=== PATIENT | male | born 1950 | race Caucasian/White ===

== ENCOUNTER 2020-01-25 09:45 | Inpatient (IN) | payer MEDICARE, OTHER, SELFPAY ==
[2020-01-25] VITALS (42 sets, daily range): BP systolic 114–206; BP diastolic 68–97; PULSE 64–773; RESP 15–38; TEMP 36.9–37.6; O2SAT 83–96; BMI 34.9
--- NOTE | 2020-01-25 10:08 | XR_ITS ---
WS: [id number] CHEST XRAY TECHNIQUE: Portable chest. CLINICAL INFORMATION: cough COMPARISON: February 19, 2019 FINDINGS: Heart: Cardiomegaly. Lungs: Chronic emphysematous changes. Patchy bilateral perihilar infiltrates new from previous. Inter stitial infiltrate in the left midlung. No significant pleural fluid. Right hilar prominence. Underly ing adenopathy is not excluded. Bones: Thoracic scoliosis with pedicle kimber fixation. IMPRESSION 1. Bilateral perihilar interstitial infiltrates and left midlung infiltrate suspicious for pneumonia . 2. Right hilar prominence. Underlying adenopathy is not excluded. This can be further evaluated ches t CT.
[2020-01-25 10:51] LABS: ABG PCO2 38.5 mmHg (35-45); Arterial Blood Gas Hematocrit 30.5 % (42-52); Base Excess ABG -0.9 mmol/L (-2.0-2.0); Blood Gas Allen Test Pos; Blood Gas Operator Identificat BD; Blood Gas Sample Site Brachial, right; Blood Gas Sample Type Arterial; HCO3 ABG 23.8 mmol/L (22-26); Oxygen Device NC; PO2 ABG 81.2 mmHg (80.0-100.0)
[2020-01-25 11:02] LABS: Basophils % 0.1 %; Hematocrit 30.6 % (42.0-52.0); Hemoglobin 9.4 g/dL (11.7-16.6); Lymphocytes # 0.6 10^3/uL (0.8-4.8); Lymphocytes % 8.1 %; Mean Corpuscular HGB Conc 30.7 g/dL (30.0-36.0); Mean Corpuscular Hemoglobin 27.5 pg (28.0-34.0); Mean Corpuscular Volume 89.5 fL (80-94); Mean Platelet Volume 10.7 fL (7.4-10.4); Monocytes # 0.5 10^3/uL (0.2-0.9); Monocytes % 6.6 %; Neutrophils % 84.8 %; Nucleated Red Blood Cells % 0 %; Platelet Count 165 10^3/cmm (130-400); Red Blood Count 3.42 10^6/uL (4.1-5.3); Red Cell Distribution Width 15.2 % (12.1-15.1); White Blood Count 7.8 10^3/uL (4.0-10.0)
[2020-01-25 11:08] LABS: Fibrinogen 731 mg/dL (174-498)
[2020-01-25 11:11] LABS: D Dimer 1.71 ug/mIFEU (0-0.59)
[2020-01-25 11:12] LABS: Lactic Sepsis W/Reflex 0.9 mmol/L (0.5-2.2)
[2020-01-25 11:22] LABS: Procalcitonin 0.61 ng/mL (0-0.5)
[2020-01-25 11:33] LABS: Alanine Aminotransferase 18 U/L (0-41); Albumin Level 3.7 g/dL (3.5-5.2); Alkaline Phosphatase 186 IU/L (40-130); Anion Gap 18.5 (5-19); Aspartate Amino Transferase 35 U/L (0-40); C Reactive Protein 158.8 mg/L (0.0-4.9); Calcium 8.6 mg/dL (8.5-10.5); Carbon Dioxide 22 mmol/L (22-29); Chloride 94 mmol/L (98-107); Globulin 3.5 g/dL (1.3-4.6); Glomerular Filtration Rate 16.9 mL/min (90-130); Glucose 163 mg/dL (65-115); Lactate Dehydrogenase 361 U/L (135-225); Osmolality Calculated 300 mOsm/kg (285-295); Potassium 3.5 mmol/L (3.5-5.1); Sodium 131 mmol/L (136-145); Total Bilirubin 0.4 mg/dL (0.15-1.2); Total Protein 7.2 g/dL (6.6-8.7)
[2020-01-25 11:43] LABS: Blood Urea Nitrogen 82 mg/dL (8-23)
--- NOTE | 2020-01-25 11:53 | ED_ITS ---
HPI - General Adult General: Chief complaint: General Medical Stated complaint: COUGH/ABD PAIN/NO APPETITE/FEVER Time Seen by Provider: 01/25/20 09:59 History of Present Illness: HPI narrative: 69-year-old male presents emergency room complaining of cough shortness of breath decreased appetite mild and no dyspnea generalized weakness and some diarrhea. This all began about 4 days ago and has gotten progressively worse with increasing shortness of breath. Denies any hematochezia melena hematemesis or coffee-ground emesis. There is no dysuria urgency or frequency he usually is on oxygen at home but he is not exactly sure why in talking to him I believe it is for congestive heart failure he is maintaining his sats in the upper 90s on 2-1/2 L which is what he usually uses at home. He denies any chest pain. Onset (ago): day(s) (4) Location: chest Severity: moderate Relieving factors: none Exacerbating factors: none Associated symptoms: Reports cough, diaphoresis, decreased appetite, dyspnea, fevers/chills, headache(s), malaise, nausea, palpitations, short of breath and weakness; Deny rash, seizures, syncope or vomiting Treatments prior to arrival: other (Oxygen) Review of Systems Const: Reports: malaise and diaphoresis ENMT: Denies: throat pain, ear or mastoid pain, nasal discharge or nasal congestion Card: Reports: palpitations; Denies: syncope Resp: Reports: dyspnea GI: Reports: nausea; Denies: vomiting : Denies: flank pain, dysuria, urinary frequency or urinary urgency Skin/Breast: Denies: rash Neuro: Reports: headache(s) [facility] ED PFSH: Medical History Anemia ASHD (arteriosclerotic heart disease) Carotid stenosis, bilateral Chronic back pain Chronic kidney disease (CKD) Congestive 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 CVA (cerebral vascular accident) Diabetes 1.5, managed as type 2 Diabetic neuropathy Dyslipidemia Edema Essential hypertension Myocardial infarction KAITLYNN (obstructive sleep apnea) Surgical History Previous back surgery S/P angioplasty with stent S/P cataract extraction Family History Mother CAD (coronary artery disease) Stroke Sister Hypertension Social History Smoking and tobacco status: former smoker Alcohol intake: never Household members: spouse Marital status: service: Yes branch: [employer] Current occupational status: employed Current gender identity: Male Physical Exam Const: COMMON NORMALS: no acute distress GENERAL APPEARANCE: cooperative and comfortable ORIENTATION/CONSCIOUSNESS: Yes awake, Yes oriented to person, Yes oriented to place and Yes oriented to time HENMT: COMMON NORMALS: normocephalic and atraumatic HEAD & SCALP: normocephalic and atraumatic Neck/C-Spine: COMMON NORMALS: no JVD Resp: AUSCULTATION: rales and wheezes Cardio: COMMON NORMALS: no JVD, regular rate, regular rhythm and No murmurs present (Cardio) RATE: regular rate RHYTHM: regular rhythm GI: COMMON NORMALS: Soft to palpation and No hepatosplenomegaly present AUSCULTATION: Yes normoactive bowel sounds PALPATION: Yes Soft to palpation, No Tenderness to palpation present (GI), No Guarding due to palpation present (GI) and Yes No hepatosplenomegaly present Extremity: COMMON NORMALS: normal to inspection, capillary refill normal, no clubbing, cyanosis or edema, no calf tenderness and no pedal edema Neuro: SENSORIUM/ORIENTATION: Yes oriented to person, Yes oriented to place and Yes oriented to time Skin: COMMON NORMALS: no rashes or lesions noted GENERAL SKIN EXAM: no rashes or lesions noted Course Vital Signs: Vital signs: Vital Signs Temperature 98.7 F 01/27/20 16:02 Pulse Rate 74 01/28/20 07:00 Respiratory Rate 29 H 01/28/20 07:00 Blood Pressure 165/87 01/28/20 07:00 Pulse Oximetry 90 01/28/20 07:00 MDM - General Adult MDM Narrative: Medical decision making narrative: Reviewed findings with the patient he is COVID positive and requiring oxygen support were going to go ahead and admit him discussed with Dr. Kassie gilliland orders are written. Lab Data: Attestation: I reviewed the patient's lab results. Labs: Lab Results 01/25/20 01/25/20 01/25/20 Range/Units 10:40 10:43 10:43 WBC 7.8 (4.0-10.0) 10^3/ uL RBC 3.42 L (4.1-5.3) 10^6/u L Hgb 9.4 L (11.7-16.6) g/dL Hct 30.6 L (42.0-52.0) % MCV 89.5 (80-94) fL MCH 27.5 L (28.0-34.0) pg MCHC 30.7 (30.0-36.0) g/dL RDW 15.2 H (12.1-15.1) % Plt Count 165 (130-400) 10^3/c mm MPV 10.7 H (7.4-10.4) fL Neut % (Auto) 84.8 % Lymph % (Auto) 8.1 % [place] % (Auto) 6.6 % Eos % (Auto) 0.0 % Baso % (Auto) 0.1 % Neut # (Auto) 6.60 (1.8-7.7) 10^3/u L Lymph # (Auto) 0.6 L (0.8-4.8) 10^3/u L [place] # (Auto) 0.5 (0.2-0.9) 10^3/u L Eos # (Auto) 0.0 (0.0-0.8) 10^3/u L Baso # (Auto) 0.0 (0.0-0.1) 10^3/u L Nucleated RBC % (a uto) 0 % Nucleated RBCs # 0.0 /100WBC Fibrinogen (174-498) mg/dL D-Dimer (0-0.59) ug/mIFE U Specimen Type Arterial Sample Site Brachial, right ABG pH 7.40 (7.35-7.45) ABG pCO2 38.5 (35-45) mmHg ABG pO2 81.2 (80.0-100.0) mmH g ABG HCO3 23.8 (22-26) mmol/L ABG Base Excess -0.9 (-2.0-2.0) mmol/ L Ganesh Test Pos Hematocrit 30.5 L (42-52) % O2 Delivery Device Nc O2 Liters/Min 3.0 % FiO2 32.0 % Life Trainer ID Bd Sodium 131 L (136-145) mmol/L Potassium 3.5 (3.5-5.1) mmol/L Chloride 94 L (98-107) mmol/L Carbon Dioxide 22 (22-29) mmol/L Anion Gap 18.5 (5-19) BUN 82 H* (8-23) mg/dL Creatinine 3.6 H (0.7-1.2) mg/dL GFR Calculation 16.9 L (90-130) mL/min Glucose 163 H (65-115) mg/dL Calculated Osmolal ity 300 H (285-295) mOsm/k g Lactic Acid (0.5-2.2) mmol/L Calcium 8.6 (8.5-10.5) mg/dL Ferritin 8959 H (30-400) ng/mL Total Bilirubin 0.4 (0.15-1.2) mg/dL AST 35 (0-40) U/L ALT 18 (0-41) U/L Alkaline Phosphata se 186 H (40-130) IU/L Lactate Dehydrogen ase 361 H (135-225) U/L C-Reactive Protein 158.8 H (0.0-4.9) mg/L Total Protein 7.2 (6.6-8.7) g/dL Albumin 3.7 (3.5-5.2) g/dL Globulin 3.5 (1.3-4.6) g/dL Procalcitonin 0.61 H (0-0.5) ng/mL SARS-CoV-2 Ag (Rap id) (Negative) 01/25/20 01/25/20 01/25/20 Range/Units 10:43 10:43 11:12 WBC (4.0-10.0) 10^3/ uL RBC (4.1-5.3) 10^6/u L Hgb (11.7-16.6) g/dL Hct (42.0-52.0) % MCV (80-94) fL MCH (28.0-34.0) pg MCHC (30.0-36.0) g/dL RDW (12.1-15.1) % Plt Count (130-400) 10^3/c mm MPV (7.4-10.4) fL Neut % (Auto) % Lymph % (Auto) % [place] % (Auto) % Eos % (Auto) % Baso % (Auto) % Neut # (Auto) (1.8-7.7) 10^3/u L Lymph # (Auto) (0.8-4.8) 10^3/u L [place] # (Auto) (0.2-0.9) 10^3/u L Eos # (Auto) (0.0-0.8) 10^3/u L Baso # (Auto) (0.0-0.1) 10^3/u L Nucleated RBC % (a uto) % Nucleated RBCs # /100WBC Fibrinogen 731 H (174-498) mg/dL D-Dimer 1.71 H (0-0.59) ug/mIFE U Specimen Type Sample Site ABG pH (7.35-7.45) ABG pCO2 (35-45) mmHg ABG pO2 (80.0-100.0) mmH g ABG HCO3 (22-26) mmol/L ABG Base Excess (-2.0-2.0) mmol/ L Ganesh Test Hematocrit (42-52) % O2 Delivery Device O2 Liters/Min % FiO2 % Life Trainer ID Sodium (136-145) mmol/L Potassium (3.5-5.1) mmol/L Chloride (98-107) mmol/L Carbon Dioxide (22-29) mmol/L Anion Gap (5-19) BUN (8-23) mg/dL Creatinine (0.7-1.2) mg/dL GFR Calculation (90-130) mL/min Glucose (65-115) mg/dL Calculated Osmolal ity (285-295) mOsm/k g Lactic Acid 0.9 (0.5-2.2) mmol/L Calcium (8.5-10.5) mg/dL Ferritin (30-400) ng/mL Total Bilirubin (0.15-1.2) mg/dL AST (0-40) U/L ALT (0-41) U/L Alkaline Phosphata se (40-130) IU/L Lactate Dehydrogen ase (135-225) U/L C-Reactive Protein (0.0-4.9) mg/L Total Protein (6.6-8.7) g/dL Albumin (3.5-5.2) g/dL Globulin (1.3-4.6) g/dL Procalcitonin (0-0.5) ng/mL SARS-CoV-2 Ag (Rap id) Positive H (Negative) Discharge Plan Discharge Patient Disposition: Admitted As Inpatient Admit Provider: Nell Bryan Clinical Impression: COVID-19 virus infection Condition: Stable Discharge Date/Time: 01/25/20 17:29 Coding Level of Care Code ED Patient 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
[2020-01-25] MEDS: dexamethasone 4 mg/mL INJ 6 MG IVP (12:33)
[2020-01-25] MEDS: sodium chloride 0.9% 1,000 ML 999 ML IV (12:36)
[2020-01-25 12:41] LABS: SARS Covid-2 Antigen Positive (Negative)
[2020-01-25 14:21] LABS: Ferritin 8959 ng/mL (30-400)
--- NOTE | 2020-01-25 17:53 | PM.HP ---
Providers/Chief Complaint Admitting Physician: Nell Bryan MD Primary Care Provider: LEÓN SEGOVIA MD Chief Complaint: COUGH/ABD PAIN/NO APPETITE/FEVER History of Present Illness Eliazar Hogan is a 69 year old male with complex PMHx as noted below presents with complaints of 4 days of feeling unwell, malaise, chills, dry persistent cough, nausea with dry heaves, decreased appetite and loss of sense of taste. He lives at home with his and denies any exposure to any known COVID-19 individuals. He is oxygen dependent at baseline with a requirement of 3 L. He appears clinically dehydrated and has received some IV fluid hydration. He was tested for COVID-19 with a rapid test in the ER which came back positive. He is currently requiring 4-5 L NC and has already received a loading dose of remdesevir. Further work-up indicates a normal white count of 7.8, hemoglobin of 9.4, hyponatremia with a sodium of 131, BUN of 82, creatinine of 3.6, significantly elevated ferritin at 8959, d-dimer 1.71, fibrinogen of 731, hye-bphuoufmzj-0.61. ABG is appropriate, done on 3 L nasal cannula. Chest x-ray is reported as bilateral perihilar interstitial infiltrates with a left midlung infiltrate suspicious for pneumonia and noted right hilar prominence. Due to need for continued close monitoring of respiratory status, antiviral treatment and appropriate supportive care, he will be admitted to the viral ICU at this time. He is quite hypertensive during my encounter in the unit, was unable to take his medications today so we will resume his antihypertensive regimen this evening. I attempted to reach his Dayna twice per his request, unsuccessful. Review of Systems Narrative: -decreased sense of taste Const: Reports: chills, body aches, change in appetite (decreased), fatigue and malaise; Denies: fever(s) Eyes: Denies: change in vision ENMT: Reports: dry mouth Card: Reports: swelling of feet/ankles (chronic), lightheadedness, dyspnea on exertion and orthopnea; Denies: chest pain or syncope Resp: Reports: dyspnea and non-productive cough; Denies: hemoptysis GI: Reports: nausea (dry heaves); Denies: abdominal pain or hematochezia : Denies: hematuria Musc: Denies: back pain Skin/Breast: Denies: rash Neuro: Reports: weakness in extremities and dizziness; Denies: numbness in extremities Psych: Denies: anxiety Medications/Allergies Home Medications Medication Instructions Recorded Confirmed Last Taken Type acetaminophen 500 mg tablet 1,000 mg PO PRN 05/05/19 01/25/20 01/24/20 History aspirin 81 mg tablet,delayed 81 mg PO DAILY tab 05/05/19 01/25/20 01/24/20 History release cetirizine 10 mg tablet 10 mg PO DAILY tab 05/05/19 01/25/20 01/24/20 History escitalopram oxalate 10 mg tablet 10 mg PO DAILY tab 05/05/19 01/25/20 01/24/20 History furosemide 40 mg tablet 80 mg PO BID tab 05/05/19 01/25/20 01/24/20 History hydralazine 100 mg tablet 100 mg PO TID 05/05/19 01/25/20 01/24/20 History isosorbide mononitrate 60 mg 60 mg PO QAM 05/05/19 01/25/20 01/24/20 History tablet,extended release 24 hr levothyroxine 25 mcg capsule 25 mcg PO DAILY cap 05/05/19 01/25/20 01/24/20 History nitroglycerin 0.4 mg sublingual 0.4 mg SUBLINGUAL Q5M PRN 05/05/19 01/25/20 Unknown History tablet pantoprazole 40 mg tablet,delayed 40 mg PO QAM 05/05/19 01/25/20 01/24/20 History release pravastatin 40 mg tablet 40 mg PO QPM tab 05/05/19 01/25/20 01/24/20 History terazosin 10 mg capsule 10 mg PO BID cap 05/05/19 01/25/20 01/24/20 History allopurinol 300 mg tablet 300 mg PO DAILY tab 05/06/19 01/25/20 01/24/20 History labetalol 100 mg tablet 100 mg PO BID 05/06/19 01/25/20 Unknown History calcitriol 0.5 mcg capsule 1 mcg PO .COMPLEX 11/02/19 01/25/20 01/24/20 History clopidogrel [Plavix] 75 mg PO DAILY 01/25/20 01/25/20 Unknown History insulin detemir U-100 See Rx Instructions .ROUTE .COMPLEX 01/25/20 01/25/20 01/24/20 History metoprolol tartrate 50 mg PO BID 01/25/20 01/25/20 01/24/20 History Allergies Allergy/AdvReac Type Severity Reaction Status Date / Time chicken derived Allergy Unknown Unknown Verified 01/25/20 11:04 PFSH Acute PFSH: Medical History Anemia ASHD (arteriosclerotic heart disease) Carotid stenosis, bilateral Chronic back pain Chronic kidney disease (CKD) Congestive 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 CVA (cerebral vascular accident) Diabetes 1.5, managed as type 2 Diabetic neuropathy Dyslipidemia Edema Essential hypertension Myocardial infarction KAITLYNN (obstructive sleep apnea) Surgical History Previous back surgery S/P angioplasty with stent S/P cataract extraction Family History Mother CAD (coronary artery disease) Stroke Sister Hypertension Social History Smoking and tobacco status: former smoker Alcohol intake: never Household members: spouse Marital status: service: Yes branch: [employer] Current occupational status: employed Current gender identity: Male Vitals/I&O/Wt Last Vital Signs Temp 99.0 F 01/25/20 17:07 Pulse 83 01/25/20 17:07 Resp 21 H 01/25/20 17:07 BP 206/97 01/25/20 17:07 Pulse Ox 93 01/25/20 17:07 Weight last 48 hrs Weight 104.326 kg Physical Exam Const: COMMON NORMALS: no acute distress and patient oriented x3 GENERAL APPEARANCE: cooperative and comfortable NUTRITIONAL APPEARANCE: obese morbidly obese ORIENTATION/CONSCIOUSNESS: Yes awake OTHER: -somewhat ill appearing HENMT: COMMON NORMALS: normocephalic, atraumatic and hearing grossly normal bilaterally HEAD & SCALP: normocephalic and atraumatic MOUTH: moist mucous membranes abnormal Details: parched Eye: COMMON NORMALS: Equal, round and reactive pupils present, EOMs intact bilaterally and conjunctivae normal CONJUNCTIVA: Yes conjunctivae normal PUPIL: Yes Equal, round and reactive pupils present Neck/C-Spine: COMMON NORMALS: full ROM GENERAL: Yes normal visual inspection and Yes trachea midline Resp: COMMON NORMALS: No retractions and No use of accessory muscles EFFORT & INSPECTION: Yes able to speak in complete sentences, Yes symmetric chest movement and Yes tachypneic OTHER: -on 4-5 L NC, upper airway congestion, symmetrical air entry bilaterally, dry cough Cardio: COMMON NORMALS: regular rate, regular rhythm, S1 normal heart sound present, S2 normal heart sound present and No murmurs present (Cardio) RATE: regular rate RHYTHM: regular rhythm HEART SOUNDS: S1 normal heart sound present and S2 normal heart sound present OTHER: -hypertensive GI: COMMON NORMALS: Normal to inspection, nondistended, normoactive bowel sounds present, Soft to palpation and non-tender INSPECTION: Yes central obesity PALPATION: Yes Soft to palpation Extremity: COMMON NORMALS: normal to inspection, full ROM and no clubbing, cyanosis or edema; negative for no pedal edema Neuro: COMMON NORMALS: patient oriented x3, moves all extremities, no focal motor deficits and no sensory deficits noted Psych: COMMON NORMALS: mental status grossly normal, Normal thought process present, cooperative, normal affect and speech normal SPEECH: Yes normal speech THOUGHT PROCESS: Normal thought process present Skin: COMMON NORMALS: no rashes or lesions noted, no jaundice, no petechiae and no mottling GENERAL SKIN EXAM: no rashes or lesions noted Data : 01/25/20 10:43 01/25/20 10:43 A&P Assessment and plan (1) COVID-19 virus infection: -Found to be COVID-19 positive her rapid testing, symptomatic -Isolation precautions -Currently requiring 4-5 L nasal cannula, baseline oxygen requirement is 3 L -Close monitoring of respiratory status -Supplemental oxygen as needed, wean to baseline as tolerated -Has already received a loading dose of Remdesevir, continue antiviral treatment -Received dose of dexamethasone, continue this -Inhaler treatments as needed, zinc, vitamin C, antitussives, incentive spirometry, pulmonary toilet -RT to assess and treat -Chest x-ray report reviewed with noted bilateral perihilar interstitial infiltrates and left midlung infiltrate suspicious for pneumonia, repeat imaging in approximately 48 hours -Will add empiric antibiotic treatment with azithromycin -order MRSA, bacterial antigens, Legionella, blood and sputum cx -Telemetry monitoring -Will cover with Eliquis due to associated risk of thrombosis -Trend inflammatory markers, noted significant elevation in ferritin, elevated d-dimer, fibrinogen Status: Acute (2) Dehydration: -appears clinically dehydrated; gentle IVF hydration, encourage oral hydration Status: Acute (3) Congestive 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: -no acute exacerbation of chronic diastolic CHF -Echo (02/2019): EF=65%, G1DD, mild LVH, mild MR, mild TR -resume diuretics as lower dose Status: Chronic (4) Chronic kidney disease (CKD): -IVAN on CKD stage 3-4 -baseline Cr appears to be around 2-2.7 -gentle IVF hydration -close monitoring of renal function, avoid nephrotoxins -follows up with vp informatics Dr. Chito Simpson in [place] Status: Chronic Qualifiers: Chronic kidney disease stage: stage 3 (moderate) Chronic kidney disease stage 3 subtype: stage 3b (GFR 30-44) Qualified Code(s): N18.32 - Chronic kidney disease, stage 3b (5) Dyslipidemia: -hold statin until CPK check Status: Chronic (6) ASHD (arteriosclerotic heart disease): -resume ASA, imdur; hold plavix as will be on AC to minimize bleeding risk Status: Chronic (7) Diabetes 1.5, managed as type 2: -last A1c-12 (02/2019), check repeat A1c -Accuchecks, ISS, scheduled insulin, hypoglycemia precautions -consistent carb diet as tolerated Status: Chronic (8) Hypertensive urgency: -Quite hypertensive currently though has not taken his antihypertensives today -Close monitoring of vital signs -Resume oral antihypertensives, titrate as needed for optimal blood pressure control the suspect that blood pressure is a challenge to control given multiple antihypertensive medications on med list Status: Acute Additional A&P Information -Hypothyroidism, check TSH, resume levothyroxine -hx of gout, resume allopurinol -Anemia of chronic disease, baseline hemoglobin appears to be around 10, continue to monitor H&H -consistent carb diet as tolerated -GI ppx with PPI -DVT ppx not needed as on Eliquis -Dispo: home -Code status: FULL code -[facility] to [facility] -attempted to reach Dayna, unsuccessful Attestations Medical Necessity Statement*: Eliazar Carlo Hogan's hospital stay will require greater than 2 midnights for management of treatment of COVID-19 infection with associated pneumonia, higher than baseline oxygen requirement, requiring close monitoring of respiratory status, appropriate supportive care and antiviral treatment. Time Spent in Patient Care: Greater than 35 minutes (>than 50% of time spent in counselling and/or direct pt care on unit). Coding Level of Care Code Acute Supervisor Reclamation for Chg Fwd Diagnoses COVID-19 virus infection U07.1 Dehydration E86.0 Congestive 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 I11.0 Chronic kidney disease (CKD) N18.32 Chronic kidney disease stage: stage 3 (moderate) Chronic kidney disease stage 3 subtype: stage 3b (GFR 30-44) Dyslipidemia E78.5 ASHD (arteriosclerotic heart disease) I25.10 Diabetes 1.5, managed as type 2 E13.9 Hypertensive urgency I16.0
--- NOTE | 2020-01-25 18:28 | ECG_ITS ---
[facility] ED Test Date: 2020-01-25 Pat Name: Eliazar Hogan Department: Room: ICU19 Gender: Male [place] [employer] Attendant: REECE : 1950 Requested By: Nell Bryan Order Number: [id number] Flor MD: Tiara Bermeo M.D. Measurements Intervals [place] Rate: 81 P: 30 [place]: 244 QRS: -6 QRSD: 110 T: 11 QT: 402 QTc: 469 Interpretive Statements SINUS RHYTHM WITH FIRST DEGREE AV BLOCK MODERATE INTRAVENTRICULAR CONDUCTION DELAY [105+ ms QRS DURATION, 80+ ms Q/S IN V1/V2, NO Q AND 60+ ms R IN I/aVL/V5/V6] Compared to ECG 02/20/2019 00:22:33 Intraventricular conduction delay now present Electronically Signed On 01-29-2020 18:01:19 CDT by Tiara Bermeo M.D. [id number]
[2020-01-25] MEDS: metoprolol tartrate 50 mg Tablet PO (18:38)
[2020-01-25] MEDS: FUROsemide 40 mg Tablet PO (18:38)
[2020-01-25] MEDS: terazosin 5 mg Capsule 10 MG PO (18:40)
[2020-01-25] MEDS: labetalol 200 mg Tablet 100 MG PO (18:40)
[2020-01-25] MEDS: sodium chloride 0.9% 1,000 ML 50 ML IV (18:42)
[2020-01-25 19:21] LABS: Influenza A by IFA Negative (Negative); Influenza B by IFA Negative (Negative)
[2020-01-25 20:20] LABS: Glucose Point of Care 275 mg/dL (70-110)
[2020-01-25] MEDS: hyDRALAzine 50 mg Tablet 100 MG PO (21:00)
[2020-01-25] MEDS: insulin glargine 100 units/1 mL 72 UNIT SUBCUT (21:00)
[2020-01-26] VITALS (42 sets, daily range): BP systolic 143–179; BP diastolic 69–86; PULSE 70–85; RESP 9–38; TEMP 36.5–37.2; O2SAT 91–97; BMI 34.9
[2020-01-26] MEDS: pantoprazole DR 40 mg Tablet PO (06:11)
[2020-01-26 06:15] LABS: Hematocrit 30.9 % (42.0-52.0); Hemoglobin 9.4 g/dL (11.7-16.6); Lymphocytes # 0.4 10^3/uL (0.8-4.8); Lymphocytes % 5.8 %; Mean Corpuscular HGB Conc 30.4 g/dL (30.0-36.0); Mean Corpuscular Hemoglobin 27.1 pg (28.0-34.0); Mean Platelet Volume 10.4 fL (7.4-10.4); Monocytes # 0.3 10^3/uL (0.2-0.9); Neutrophils # 5.52 10^3/uL (1.8-7.7); Neutrophils % 89.1 %; Nucleated Red Blood Cells % 0 %; Platelet Count 170 10^3/cmm (130-400); Red Blood Count 3.47 10^6/uL (4.1-5.3); Red Cell Distribution Width 15.2 % (12.1-15.1); White Blood Count 6.2 10^3/uL (4.0-10.0)
[2020-01-26] MEDS: isosorbide mononitrate ER 60 mg Tablet PO (06:23)
[2020-01-26 06:45] LABS: Estmated Average Glucose 237; Hemoglobin A1C 9.9 % (4.0-6.0)
[2020-01-26 07:03] LABS: Procalcitonin 0.55 ng/mL (0-0.5); Thyroid Stimulating Hormone 0.41 uIU/mL (0.27-4.20)
[2020-01-26 07:06] LABS: Alanine Aminotransferase 20 U/L (0-41); Albumin Level 3.5 g/dL (3.5-5.2); Alkaline Phosphatase 179 IU/L (40-130); Anion Gap 19.5 (5-19); Aspartate Amino Transferase 35 U/L (0-40); C Reactive Protein 177.3 mg/L (0.0-4.9); Calcium 8.6 mg/dL (8.5-10.5); Carbon Dioxide 20 mmol/L (22-29); Chloride 104 mmol/L (98-107); Globulin 3.6 g/dL (1.3-4.6); Glomerular Filtration Rate 19.4 mL/min (90-130); Glucose 173 mg/dL (65-115); Osmolality Calculated 319 mOsm/kg (285-295); Potassium 3.5 mmol/L (3.5-5.1); Sodium 140 mmol/L (136-145); Total Bilirubin 0.3 mg/dL (0.15-1.2); Total Protein 7.1 g/dL (6.6-8.7)
[2020-01-26 07:09] LABS: Glucose Point of Care 176 mg/dL (70-110)
[2020-01-26 07:18] LABS: Lactate Dehydrogenase 397 U/L (135-225)
[2020-01-26 07:20] LABS: Blood Urea Nitrogen 81 mg/dL (8-23); Creatine Phosphokinase 396 U/L (39-308)
[2020-01-26 09:44] LABS: D Dimer 1.42 ug/mIFEU (0-0.59)
[2020-01-26] MEDS: insulin glargine 100 units/1 mL 62 UNIT SUBCUT (10:09)
[2020-01-26] MEDS: azithromycin 250 mg Tablet 500 MG PO (10:10)
[2020-01-26] MEDS: escitalopram 10 mg Tablet PO (10:11)
[2020-01-26] MEDS: allopurinol 300 mg Tablet PO (10:13)
[2020-01-26] MEDS: FUROsemide 40 mg Tablet PO (10:14)
[2020-01-26] MEDS: levothyroxine 25 mcg Tablet PO (10:14)
[2020-01-26] MEDS: apixaban 5 mg Tablet PO ×2 (10:15→15:13)
[2020-01-26] MEDS: aspirin 81 mg EC Tablet PO (10:15)
[2020-01-26] MEDS: ascorbic acid 500 mg Tablet PO ×2 (10:16→15:13)
[2020-01-26] MEDS: metoprolol tartrate 50 mg Tablet PO ×2 (10:16→15:13)
[2020-01-26] MEDS: zinc gluconate 50 mg Tablet PO (10:16)
[2020-01-26] MEDS: dexamethasone 4 mg/mL INJ 6 MG IVP (10:17)
[2020-01-26] MEDS: calcitriol 0.25 mcg Capsule 1 MCG PO (10:17)
[2020-01-26] MEDS: hyDRALAzine 50 mg Tablet 100 MG PO ×3 (10:19→20:15)
[2020-01-26] MEDS: terazosin 5 mg Capsule 10 MG PO ×2 (10:20→15:03)
[2020-01-26] MEDS: labetalol 200 mg Tablet 100 MG PO ×2 (10:20→15:04)
[2020-01-26 10:28] LABS: Fibrinogen 676 mg/dL (174-498)
[2020-01-26] MEDS: cetirizine 10 mg Tablet PO (10:28)
--- NOTE | 2020-01-26 11:13 | P.PN_ITS ---
Subjective Subjective: Interval history: Hypertensive, on 5 L nasal cannula saturating in the mid 90s, afebrile. Improvement in some inflammatory markers were noted increased ferritin, CRP. Some improvement in renal function with creatinine down to 3.2. Stable hemoglobin at 9.4. On day 2 of Remdesevir. Medications: Reviewed: Yes Medication Review Details: Active Medications Generic Name Dose Route Start Last Admin Trade Name Freq PRN Reason Stop Dose Admin Acetaminophen 650 mg 01/25/20 18:05 Tylenol PO Q6H PRN Mild/Mod Pain Or Temp >/= 101 Albuterol Sulfate 2 puff 01/26/20 04:54 Ventolin INHALATION Q4H.RESPIRATORY P RN SHORTNESS OF SHAHID TH Allopurinol 300 mg 01/26/20 09:00 01/26/20 10:13 Zyloprim PO 300 mg DAILY SAYRA Administration Apixaban 5 mg 01/26/20 09:00 01/26/20 10:15 Eliquis PO 5 mg BID SAYRA Administration Ascorbic Acid 500 mg 01/26/20 09:00 01/26/20 10:16 Vitamin C PO 500 mg BID SAYRA Administration Aspirin 81 mg 01/26/20 09:00 01/26/20 10:15 Aspirin Ec PO 81 mg DAILY SAYRA Administration Azithromycin 500 mg 01/26/20 09:00 01/26/20 10:10 Zithromax PO 500 mg DAILY SAYRA Administration Protocol Benzonatate 100 mg 01/25/20 18:16 Tessalon Pearls PO TID PRN COUGH Calcitriol 1 mcg 01/26/20 09:00 01/26/20 10:17 Rocaltrol PO 1 mcg [id number] SAYRA Administration Cetirizine HCl 10 mg 01/26/20 09:00 01/26/20 10:28 Zyrtec PO 10 mg DAILY SAYRA Administration Dexamethasone 6 mg 01/26/20 09:00 01/26/20 10:17 Decadron IVP 6 mg Q24H SAYRA Administration Dextrose 25 ml 01/25/20 18:01 D50w IVP ONCE PRN hypoglycemia prot ocol Protocol Dextrose 50 ml 01/25/20 18:01 D50w IVP PRN PRN hypoglycemia prot ocol Protocol Escitalopram Oxala te 10 mg 01/26/20 09:00 01/26/20 10:11 Lexapro PO 10 mg DAILY SAYRA Administration Furosemide 40 mg 01/25/20 18:00 01/26/20 10:14 Lasix PO 40 mg BID SAYRA Administration Glucagon 1 mg 01/25/20 18:01 Glucagen IM ONCE PRN Adult Acute Hypog lycemia Prot. Protocol Hydralazine HCl 100 mg 01/25/20 21:00 01/26/20 10:19 Apresoline PO 100 mg TID SAYRA Administration remdesivir (EUA) 1 00 mg/ 100 mls @ 100 mls /hr 01/26/20 14:30 Sodium Chloride IV 01/29/20 15:29 Q24H SAYRA Sodium Chloride 1,000 mls @ 50 ml s/hr 01/25/20 18:00 01/25/20 18:42 Sodium Chloride 0.9% IV 50 mls/hr .Q20H SAYRA Administration Dextrose 500 mls @ 100 mls /hr 01/25/20 18:01 D5w IV ONCE PRN Adult Acute Hypog lycemia Prot Protocol Insulin Aspart 0 unit 01/25/20 21:00 01/26/20 10:09 Novolog SUBCUT Not Given WM&BEDTIME SAYRA Protocol Insulin Glargine 62 unit 01/26/20 06:00 01/26/20 10:09 Lantus SUBCUT 62 unit QAM SAYRA Administration Insulin Glargine 72 unit 01/25/20 21:00 01/25/20 21:00 Lantus SUBCUT 72 unit BEDTIME SAYRA Administration Isosorbide Mononit rate 60 mg 01/26/20 06:00 01/26/20 06:23 Imdur PO 60 mg QAM SAYRA Administration Labetalol HCl 100 mg 01/25/20 18:30 01/26/20 10:20 Trandate PO 100 mg BID SAYRA Administration Levothyroxine Sodi um 25 mcg 01/26/20 09:00 01/26/20 10:14 Synthroid PO 25 mcg DAILY SAYRA Administration Metoprolol Tartrat e 50 mg 01/25/20 18:30 01/26/20 10:16 Lopressor PO 50 mg BID SAYRA Administration Nitroglycerin 0.4 mg 01/25/20 17:56 Nitrostat SUBLINGUAL Q5M PRN Chest Pain Ondansetron HCl 4 mg 01/25/20 18:05 Zofran IVP Q6H PRN vomiting, or N/V if npo Pantoprazole Sodiu m 40 mg 01/26/20 06:00 01/26/20 06:11 Protonix PO 40 mg QAM SAYRA Administration Terazosin HCl 10 mg 01/25/20 18:30 01/26/20 10:20 Hytrin PO 10 mg BID SAYRA Administration Zinc Gluconate 50 mg 01/26/20 09:00 01/26/20 10:16 Zinc Gluconate PO 50 mg DAILY SAYRA Administration chicken derived Allergy (Unknown, Verified 01/25/20 11:04) Unknown Vitals/I&O/Wt Last Vital Signs Temp 97.9 F 01/26/20 00:00 Pulse 70 01/26/20 11:08 Resp 16 01/26/20 11:08 BP 179/82 01/26/20 05:00 Pulse Ox 94 01/26/20 11:08 01/25/20 01/26/20 01/26/20 22:59 06:59 14:59 Output Total 350 / 350 550 / 900 Balance -350 / -350 -550 / -900 Weight last 48 hrs Weight 104.326 kg Physical Exam Const: COMMON NORMALS: no acute distress and patient oriented x3 GENERAL APPEARANCE: cooperative and comfortable NUTRITIONAL APPEARANCE: obese morbidly obese ORIENTATION/CONSCIOUSNESS: Yes awake OTHER: -somewhat ill appearing HENMT: COMMON NORMALS: normocephalic, atraumatic and hearing grossly normal bilaterally HEAD & SCALP: normocephalic and atraumatic MOUTH: moist mucous membranes abnormal Details: parched Eye: COMMON NORMALS: Equal, round and reactive pupils present, EOMs intact bilaterally and conjunctivae normal CONJUNCTIVA: Yes conjunctivae normal PUPIL: Yes Equal, round and reactive pupils present Neck/C-Spine: COMMON NORMALS: full ROM GENERAL: Yes normal visual inspection and Yes trachea midline Resp: COMMON NORMALS: No retractions and No use of accessory muscles EFFORT & INSPECTION: Yes able to speak in complete sentences, Yes symmetric chest movement and Yes tachypneic OTHER: -on 4-5 L NC, upper airway congestion, symmetrical air entry bilaterally, dry cough Cardio: COMMON NORMALS: regular rate, regular rhythm, S1 normal heart sound present, S2 normal heart sound present and No murmurs present (Cardio) RATE: regular rate RHYTHM: regular rhythm HEART SOUNDS: S1 normal heart sound present and S2 normal heart sound present OTHER: -hypertensive GI: COMMON NORMALS: Normal to inspection, nondistended, normoactive bowel sounds present, Soft to palpation and non-tender INSPECTION: Yes central obesity PALPATION: Yes Soft to palpation Extremity: COMMON NORMALS: normal to inspection, full ROM and no clubbing, cyanosis or edema; negative for no pedal edema Neuro: COMMON NORMALS: patient oriented x3, moves all extremities, no focal motor deficits and no sensory deficits noted Psych: COMMON NORMALS: mental status grossly normal, Normal thought process present, cooperative, normal affect and speech normal SPEECH: Yes normal speech THOUGHT PROCESS: Normal thought process present Skin: COMMON NORMALS: no rashes or lesions noted, no jaundice, no petechiae and no mottling GENERAL SKIN EXAM: no rashes or lesions noted Data : 01/26/20 04:35 01/26/20 04:35 Micro: Microbiology 01/25/20 20:50 Blood Culture - Preliminary Blood SPECIMEN COLLECTED 01/25/20 10:43 Blood Culture - Preliminary Blood SPECIMEN COLLECTED A&P Assessment and plan (1) COVID-19 virus infection: -Found to be COVID-19 positive per rapid testing, symptomatic -Isolation precautions -Currently requiring 4-5 L nasal cannula, baseline oxygen requirement is 3 L. -Close monitoring of respiratory status -Supplemental oxygen as needed, wean to baseline as tolerated -on day 2 of Remdesevir, continue antiviral treatment -Received dose of dexamethasone, continue this -Inhaler treatments as needed, zinc, vitamin C, antitussives, incentive spirometry, pulmonary toilet, prone positioning as tolerated by patient -RT to assess and treat -Chest x-ray report reviewed with noted bilateral perihilar interstitial infiltrates and left midlung infiltrate suspicious for pneumonia, repeat imaging in approximately 48 hours -on empiric antibiotic treatment with azithromycin -MRSA, bacterial antigens, Legionella negative -blood cx: pending -sputum cx pending, gram stain-few GPC -Telemetry monitoring -on Eliquis due to associated risk of thrombosis -Trend inflammatory markers, noted significant elevation in ferritin, elevated d-dimer, fibrinogen Status: Acute (2) Acute respiratory distress syndrome (ARDS) due to COVID-19 virus: -CT chest done today with noted changes consistent with ARDS. Anticipate higher oxygen requirement including need for vent support in light of these changes so will continue close monitoring of respiratory status. -already on IV steroids, remdesevir, maintaining fluid balance Status: Acute (3) Dehydration: -appears clinically dehydrated; off IVF, encourage oral hydration Status: Acute (4) Congestive 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: -no acute exacerbation of chronic diastolic CHF -Echo (02/2019): EF=65%, G1DD, mild LVH, mild MR, mild TR -on diuretics, fluid restriction; maintaining negative fluid balance is eric Status: Chronic (5) Chronic kidney disease (CKD): -IVAN on CKD stage 3-4 -baseline Cr appears to be around 2-2.7 but has been as high as 3.7 in the past -close monitoring of renal function, avoid nephrotoxins -follows up with sales executive insurance Dr. Chito Simpson in [place] Status: Chronic Qualifiers: Chronic kidney disease stage: stage 3 (moderate) Chronic kidney disease stage 3 subtype: stage 3b (GFR 30-44) Qualified Code(s): N18.32 - Chronic kidney disease, stage 3b (6) Dyslipidemia: -hold statin until CPK trends down Status: Chronic (7) ASHD (arteriosclerotic heart disease): -continue ASA, imdur; hold plavix as is on AC to minimize bleeding risk Status: Chronic (8) Diabetes 1.5, managed as type 2: -A1c-9.9 -Accuchecks, ISS, scheduled insulin, hypoglycemia precautions -consistent carb diet as tolerated Status: Chronic (9) Hypertensive urgency: -Quite hypertensive on admission though has not taken his antihypertensives today -Close monitoring of vital signs -continue oral antihypertensives, titrate as needed for optimal blood pressure control the suspect that blood pressure is a challenge to control given multiple antihypertensive medications on med list Status: Resolved Additional A&P Information -Hypothyroidism, TSH wnl, continue levothyroxine -hx of gout, on allopurinol -Anemia of chronic disease, baseline hemoglobin appears to be around 10, continue to monitor H&H, stable so far -consistent carb diet as tolerated -GI ppx with PPI -DVT ppx not needed as on Eliquis -Dispo: home -Code status: FULL code -called and updated Dayna ([phone]) on patient's clinical status, CT scan findings, treatment plan Attestations Medical Necessity Statement*: Patient requires hospitalization for continued management of COVID-19 infection with developing ARDS, on antiviral, antibiotic treatment as well as IV steroids, needs continued close monitoring of respiratory status. Time Spent in Patient Care: 16 - 35 minutes (>than 50% of time spent in cou nselling and/or direct pt care on unit) . Coding Level of Care Code Acute Manager Compliance for Chg Fwd Diagnoses COVID-19 virus infection U07.1 Acute respiratory distress syndrome (ARDS) due to COVID-19 virus U07.1; J80 Dehydration E86.0 Congestive 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 I11.0 Chronic kidney disease (CKD) N18.32 Chronic kidney disease stage: stage 3 (moderate) Chronic kidney disease stage 3 subtype: stage 3b (GFR 30-44) Dyslipidemia E78.5 ASHD (arteriosclerotic heart disease) I25.10 Diabetes 1.5, managed as type 2 E13.9 Hypertensive urgency I16.0
--- NOTE | 2020-01-26 11:17 | CT_ITS ---
WS: [id number] CT CHEST TECHNIQUE: Noncontrast CT of the chest with coronal and sagittal reformatted images. CLINICAL INFORMATION: COVID-19+, noted interstitial infiltrates, assess for ARDS COMPARISON: CT chest 5 16,018 DLP: 971.[address] scans at [facility] use at least one of these dose optimization techniques: automat ed exposure control; mA and/or kV adjustment per patient size (includes targeted exams where dose is matched to clinical indication); or iterative reconstruction. FINDINGS: Mild chronic emphysematous changes. Bilateral diffuse pulmonary infiltrates more prominent in the low er lobes and midlung. Trace bilateral pleural effusions. Groundglass infiltrates with some peripheral subtotal consolidation about the right hilum, right upper lobe, and superior segment right lower lob e peripherally. Hazy groundglass infiltrates in the right lower lobe. A few air bronchograms about the right hilum. P atchy hazy groundglass infiltrates within the left lower lobe, lingula and left upper lobe about the left hilum. Small bilateral pleural effusions. Marked cardiomegaly. Coronary calcification. Reactive right greater than left hilar lymph nodes. Small right renal angiomyolipoma. Normal left adrenal gland. Cholelithiasis. Small esophageal hiatal hernia. No axillary lymphadenopathy. Postoperative changes lower thoracic spine partially visualized. Chronic right eighth rib fracture. CT/CT chest wo con [id number] IMPRESSION: 1. Scattered diffuse bilateral pulmonary infiltrates worse in the lower lobes. 2. Groundglass infiltrates with some consolidation about the right greater veronique n left hilum, right upper lobe, and superior segment right lower lobe with air bronchograms. This can be seen with progression to ARDS in the appropriate clin ical setting. 3. Small bilateral pleural effusions. 4. Marked cardiomegaly. 5. Cholelithiasis. 6. Small esophageal hiatal hernia.
[2020-01-26 11:38] LABS: Glucose Point of Care 195 mg/dL (70-110)
[2020-01-26] MEDS: FUROsemide 10 mg/mL SDV 4mL 20 MG IVP (11:46)
[2020-01-26 16:11] LABS: Glucose Point of Care 170 mg/dL (70-110)
[2020-01-26] MEDS: FUROsemide 40 mg Tablet 60 MG PO (16:15)
--- NOTE | 2020-01-26 18:08 | PC.NURSE ---
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 unfortunately he leaked some stool and was shy about telling the staff until i saw the stain in the bed and on his gown when [place] went to [place] at [place]. he refused to rinse his mouth, dentures at home. updated and patients phone charged by staff and he called her as well. productive cough finally produced a sample. urine for legionella and bacterial antigen sent, and lab redraw blue top sent.
[2020-01-26 20:14] LABS: Glucose Point of Care 177 mg/dL (70-110)
[2020-01-26] MEDS: insulin glargine 100 units/1 mL 72 UNIT SUBCUT (20:15)
[2020-01-27] VITALS (30 sets, daily range): BP systolic 131–176; BP diastolic 53–84; PULSE 69–81; RESP 14–31; TEMP 36.7–37.1; O2SAT 89–94; BMI 34.9
[2020-01-27 05:19] LABS: Basophils % 0.1 %; Hematocrit 30.3 % (42.0-52.0); Hemoglobin 9.5 g/dL (11.7-16.6); Lymphocytes # 0.3 10^3/uL (0.8-4.8); Lymphocytes % 3.4 %; Mean Corpuscular HGB Conc 31.4 g/dL (30.0-36.0); Mean Corpuscular Hemoglobin 27.4 pg (28.0-34.0); Mean Corpuscular Volume 87.3 fL (80-94); Mean Platelet Volume 10.4 fL (7.4-10.4); Monocytes # 0.5 10^3/uL (0.2-0.9); Monocytes % 5.1 %; Neutrophils # 8.19 10^3/uL (1.8-7.7); Neutrophils % 90.7 %; Nucleated Red Blood Cells % 0 %; Platelet Count 197 10^3/cmm (130-400); Red Blood Count 3.47 10^6/uL (4.1-5.3)
[2020-01-27 05:52] LABS: Alanine Aminotransferase 19 U/L (0-41); Albumin Level 3.4 g/dL (3.5-5.2); Alkaline Phosphatase 166 IU/L (40-130); Anion Gap 19.5 (5-19); Aspartate Amino Transferase 33 U/L (0-40); Calcium 8.7 mg/dL (8.5-10.5); Carbon Dioxide 20 mmol/L (22-29); Chloride 104 mmol/L (98-107); Creatine Phosphokinase 236 U/L (39-308); Globulin 2.6 g/dL (1.3-4.6); Glomerular Filtration Rate 20.1 mL/min (90-130); Glucose 149 mg/dL (65-115); Osmolality Calculated 320 mOsm/kg (285-295); Potassium 3.5 mmol/L (3.5-5.1); Sodium 140 mmol/L (136-145); Total Bilirubin 0.3 mg/dL (0.15-1.2)
[2020-01-27 05:57] LABS: Blood Urea Nitrogen 89 mg/dL (8-23)
--- NOTE | 2020-01-27 06:00 | XR_ITS ---
WS: [id number] XR chest 1V portable [id number] REASON FOR EXAM: COVID-19 infection, pneumonitis FINDINGS: Peripheral infiltrative changes in the left lung and more central infiltrative changes in the right l yolie. Compared to the prior examination of 09/2019 these abnormalities are relatively unchanged. No new findings. XR/XR chest 1V portable [id number] IMPRESSION: Stable abnormal chest.
[2020-01-27] MEDS: pantoprazole DR 40 mg Tablet PO (06:18)
[2020-01-27] MEDS: insulin glargine 100 units/1 mL 62 UNIT SUBCUT (06:18)
[2020-01-27] MEDS: isosorbide mononitrate ER 60 mg Tablet PO (06:18)
[2020-01-27 06:21] LABS: Glucose Point of Care 143 mg/dL (70-110)
[2020-01-27 07:00] LABS: NT Pro B Type Natriuretic Pept 2417 pg/mL (0-125); Procalcitonin 0.52 ng/mL (0-0.5)
[2020-01-27 07:10] LABS: Lactate Dehydrogenase 390 U/L (135-225)
[2020-01-27] MEDS: labetalol 200 mg Tablet 100 MG PO ×2 (08:03→14:45)
[2020-01-27] MEDS: terazosin 5 mg Capsule 10 MG PO ×2 (08:03→14:46)
[2020-01-27] MEDS: escitalopram 10 mg Tablet PO (08:03)
[2020-01-27] MEDS: allopurinol 300 mg Tablet PO (08:04)
[2020-01-27] MEDS: levothyroxine 25 mcg Tablet PO (08:04)
[2020-01-27] MEDS: azithromycin 250 mg Tablet 500 MG PO (08:04)
[2020-01-27] MEDS: cetirizine 10 mg Tablet PO (08:05)
[2020-01-27] MEDS: hyDRALAzine 50 mg Tablet 100 MG PO ×3 (08:05→21:45)
[2020-01-27 08:09] LABS: D Dimer 1.21 ug/mIFEU (0-0.59)
[2020-01-27] MEDS: aspirin 81 mg EC Tablet PO (08:18)
[2020-01-27] MEDS: zinc gluconate 50 mg Tablet PO (08:18)
[2020-01-27] MEDS: apixaban 5 mg Tablet PO ×2 (08:18→14:41)
[2020-01-27] MEDS: metoprolol tartrate 50 mg Tablet PO ×2 (08:18→14:43)
[2020-01-27] MEDS: FUROsemide 40 mg Tablet 60 MG PO ×2 (08:18→14:42)
[2020-01-27] MEDS: ascorbic acid 500 mg Tablet PO ×2 (08:18→14:41)
[2020-01-27] MEDS: dexamethasone 4 mg/mL INJ 6 MG IVP (08:19)
[2020-01-27 08:24] LABS: Ferritin 11591 ng/mL (30-400)
[2020-01-27 10:47] LABS: Fibrinogen 663 mg/dL (174-498)
[2020-01-27 11:46] LABS: Glucose Point of Care 225 mg/dL (70-110)
--- NOTE | 2020-01-27 12:21 | PM.PN ---
Subjective Subjective: Interval history: Decreased oxygen requirement from 5 L to 2 L nasal cannula. Hypertensive, afebrile, had 2200 mL urine output overnight, stable hemoglobin and renal function. Decreasing inflammatory markers though ferritin remains significantly elevated. Chest x-ray unchanged. On day 3 of remdesevir. Resting quietly in bed, remains fatigued. Medications: Reviewed: Yes Medication Review Details: Active Medications Generic Name Dose Route Start Last Admin Trade Name Freq PRN Reason Stop Dose Admin Acetaminophen 650 mg 01/25/20 18:05 Tylenol PO Q6H PRN Mild/Mod Pain Or Temp >/= 101 Albuterol Sulfate 2 puff 01/26/20 04:54 Ventolin INHALATION Q4H.RESPIRATORY P RN SHORTNESS OF SHAHID TH Allopurinol 300 mg 01/26/20 09:00 01/27/20 08:04 Zyloprim PO 300 mg DAILY SAYRA Administration Apixaban 5 mg 01/26/20 09:00 01/27/20 08:18 Eliquis PO 5 mg BID SAYRA Administration Ascorbic Acid 500 mg 01/26/20 09:00 01/27/20 08:18 Vitamin C PO 500 mg BID SAYRA Administration Aspirin 81 mg 01/26/20 09:00 01/27/20 08:18 Aspirin Ec PO 81 mg DAILY SAYRA Administration Azithromycin 500 mg 01/26/20 09:00 01/27/20 08:04 Zithromax PO 500 mg DAILY SAYRA Administration Protocol Benzonatate 100 mg 01/25/20 18:16 Tessalon Pearls PO TID PRN COUGH Calcitriol 1 mcg 01/26/20 09:00 01/26/20 10:17 Rocaltrol PO 1 mcg [email or web address] SAYRA Administration Cetirizine HCl 10 mg 01/26/20 09:00 01/27/20 08:05 Zyrtec PO 10 mg DAILY SAYRA Administration Dexamethasone 6 mg 01/26/20 09:00 01/27/20 08:19 Decadron IVP 6 mg Q24H SAYRA Administration Dextrose 25 ml 01/25/20 18:01 D50w IVP ONCE PRN hypoglycemia prot ocol Protocol Dextrose 50 ml 01/25/20 18:01 D50w IVP PRN PRN hypoglycemia prot ocol Protocol Escitalopram Oxala te 10 mg 01/26/20 09:00 01/27/20 08:03 Lexapro PO 10 mg DAILY SAYRA Administration Furosemide 60 mg 01/26/20 18:00 01/27/20 08:18 Lasix PO 60 mg BID SAYRA Administration Glucagon 1 mg 01/25/20 18:01 Glucagen IM ONCE PRN Adult Acute Hypog lycemia Prot. Protocol Hydralazine HCl 100 mg 01/25/20 21:00 01/27/20 08:05 Apresoline PO 100 mg TID SAYRA Administration remdesivir (EUA) 1 00 mg/ 100 mls @ 100 mls /hr 01/26/20 14:30 01/26/20 17:59 Sodium Chloride IV 01/29/20 15:29 Infused Q24H SAYRA Infusion Dextrose 500 mls @ 100 mls /hr 01/25/20 18:01 D5w IV ONCE PRN Adult Acute Hypog lycemia Prot Protocol Insulin Aspart 0 unit 01/25/20 21:00 01/27/20 11:55 Novolog SUBCUT 10 unit WM&BEDTIME SAYRA Administration Protocol Insulin Glargine 62 unit 01/26/20 06:00 01/27/20 06:18 Lantus SUBCUT 62 unit QAM SAYRA Administration Insulin Glargine 72 unit 01/25/20 21:00 01/26/20 20:15 Lantus SUBCUT 72 unit BEDTIME SAYRA Administration Isosorbide Mononit rate 60 mg 01/26/20 06:00 01/27/20 06:18 Imdur PO 60 mg QAM SAYRA Administration Labetalol HCl 100 mg 01/25/20 18:30 01/27/20 08:03 Trandate PO 100 mg BID SAYRA Administration Levothyroxine Sodi um 25 mcg 01/26/20 09:00 01/27/20 08:04 Synthroid PO 25 mcg DAILY SAYRA Administration Metoprolol Tartrat e 50 mg 01/25/20 18:30 01/27/20 08:18 Lopressor PO 50 mg BID SAYRA Administration Nitroglycerin 0.4 mg 01/25/20 17:56 Nitrostat SUBLINGUAL Q5M PRN Chest Pain Ondansetron HCl 4 mg 01/25/20 18:05 Zofran IVP Q6H PRN vomiting, or N/V if npo Pantoprazole Sodiu m 40 mg 01/26/20 06:00 01/27/20 06:18 Protonix PO 40 mg QAM SAYRA Administration Terazosin HCl 10 mg 01/25/20 18:30 01/27/20 08:03 Hytrin PO 10 mg BID SAYRA Administration Zinc Gluconate 50 mg 01/26/20 09:00 01/27/20 08:18 Zinc Gluconate PO 50 mg DAILY SAYRA Administration chicken derived Allergy (Unknown, Verified 01/25/20 11:04) Unknown Vitals/I&O/Wt Last Vital Signs Temp 98.5 F 01/27/20 11:34 Pulse 75 01/27/20 08:27 Resp 18 01/27/20 08:27 BP 167/83 01/27/20 04:00 Pulse Ox 92 01/27/20 08:27 01/26/20 01/27/20 01/27/20 22:59 06:59 14:59 Intake Total 2740 / 3440 91 / 3531 500 / 500 Output Total 700 / 1250 1500 / 2750 250 / 250 Balance 2040 / 2190 -1409 / 781 250 / 250 Weight last 48 hrs Weight 104.326 kg Weight 104.326 kg Physical Exam Const: COMMON NORMALS: no acute distress and patient oriented x3 GENERAL APPEARANCE: cooperative and comfortable NUTRITIONAL APPEARANCE: obese morbidly obese ORIENTATION/CONSCIOUSNESS: Yes awake OTHER: -somewhat ill appearing HENMT: COMMON NORMALS: normocephalic, atraumatic and hearing grossly normal bilaterally HEAD & SCALP: normocephalic and atraumatic MOUTH: moist mucous membranes abnormal Details: parched Eye: COMMON NORMALS: Equal, round and reactive pupils present, EOMs intact bilaterally and conjunctivae normal CONJUNCTIVA: Yes conjunctivae normal PUPIL: Yes Equal, round and reactive pupils present Neck/C-Spine: COMMON NORMALS: full ROM GENERAL: Yes normal visual inspection and Yes trachea midline Resp: COMMON NORMALS: No retractions and No use of accessory muscles EFFORT & INSPECTION: Yes able to speak in complete sentences, Yes symmetric chest movement and Yes tachypneic OTHER: -on 2 L NC, upper airway congestion, symmetrical air entry bilaterally, dry cough Cardio: COMMON NORMALS: regular rate, regular rhythm, S1 normal heart sound present, S2 normal heart sound present and No murmurs present (Cardio) RATE: regular rate RHYTHM: regular rhythm HEART SOUNDS: S1 normal heart sound present and S2 normal heart sound present OTHER: -hypertensive GI: COMMON NORMALS: Normal to inspection, nondistended, normoactive bowel sounds present, Soft to palpation and non-tender INSPECTION: Yes central obesity PALPATION: Yes Soft to palpation Extremity: COMMON NORMALS: normal to inspection, full ROM and no clubbing, cyanosis or edema; negative for no pedal edema Neuro: COMMON NORMALS: patient oriented x3, moves all extremities, no focal motor deficits and no sensory deficits noted Psych: COMMON NORMALS: mental status grossly normal, Normal thought process present, cooperative, normal affect and speech normal SPEECH: Yes normal speech THOUGHT PROCESS: Normal thought process present Skin: COMMON NORMALS: no rashes or lesions noted, no jaundice, no petechiae and no mottling GENERAL SKIN EXAM: no rashes or lesions noted Data : 01/27/20 04:00 01/27/20 04:00 Micro: Microbiology 01/26/20 10:17 Gram Stain - Final Sputum - Expectorated Sputum Sputum Culture - Preliminary 01/25/20 20:50 Blood Culture - Preliminary Blood NEGATIVE TO DATE 01/25/20 10:43 Blood Culture - Preliminary Blood NEGATIVE TO DATE 01/26/20 13:30 Legionella Urinary Antigen - Final Urine,Voided Bacterial Antigens - Final 01/25/20 18:30 MRSA Culture - Final Nose A&P Assessment and plan (1) COVID-19 virus infection: -Found to be COVID-19 positive per rapid testing, symptomatic and severe based on CRP greater than 100, significantly elevated ferritin, elevated LDH -Isolation precautions -decreasing oxygen requirement, currently on 2 L nasal cannula, baseline oxygen requirement is 3 L. -Close monitoring of respiratory status -Supplemental oxygen as needed, wean to baseline as tolerated -on day 3 of Remdesevir, continue antiviral treatment -continue dexamethasone -Inhaler treatments as needed, zinc, vitamin C, antitussives, incentive spirometry, pulmonary toilet, prone positioning as tolerated by patient -RT to assess and treat -Chest x-ray report reviewed with noted bilateral perihilar interstitial infiltrates and left midlung infiltrate suspicious for pneumonia, repeat imaging today unchanged -on empiric antibiotic treatment with azithromycin -MRSA, bacterial antigens, Legionella negative -blood cx: prelim negative -sputum cx-mixed respiratory lucia, gram stain-few GPC -Telemetry monitoring -on Eliquis due to associated risk of thrombosis -continue to trend inflammatory markers, noted significant elevation in ferritin, otherwise trending down Status: Acute (2) Acute respiratory distress syndrome (ARDS) due to COVID-19 virus: -CT chest with noted changes consistent with ARDS. Anticipate higher oxygen requirement including need for vent support in light of these changes so will continue close monitoring of respiratory status. -already on IV steroids, remdesevir, maintaining negative fluid balance Status: Acute (3) Dehydration: -appears clinically dehydrated; off IVF, encourage oral hydration Status: Resolved (4) Congestive 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: -no acute exacerbation of chronic diastolic CHF -Echo (02/2019): EF=65%, G1DD, mild LVH, mild MR, mild TR -on diuretics, fluid restriction; maintaining negative fluid balance is eric Status: Chronic (5) Chronic kidney disease (CKD): -IVAN on CKD stage 3-4 -baseline Cr appears to be around 2-2.7 but has been as high as 3.7 in the past -close monitoring of renal function, avoid nephrotoxins -follows up with technical sales specialist Dr. 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 -Accuchecks, ISS, scheduled insulin, hypoglycemia precautions -consistent carb diet as tolerated Status: Chronic (9) Hypertensive urgency: -BP improved with resumption of oral antihypertensives -Close monitoring of vital signs -continue oral antihypertensives, titrate as needed for optimal blood pressure control the suspect that blood pressure is a challenge to control given multiple antihypertensive medications on med list Status: Resolved Additional A&P Information -Hypothyroidism, TSH wnl, continue levothyroxine -hx of gout, on allopurinol -Anemia of chronic disease, baseline hemoglobin appears to be around 10, continue to monitor H&H, stable so far -consistent carb diet as tolerated -GI ppx with PPI -DVT ppx not needed as on Eliquis -Dispo: home -Code status: FULL code -called and updated Dayna ([phone]) on patient's clinical status, CT scan findings, treatment plan Attestations Medical Necessity Statement*: Patient requires hospitalization for continued management of severe COVID-19 infection with ARDS, on continued antiviral treatment, needs continued close monitoring of respiratory status. Time Spent in Patient Care: 16 - 35 minutes (>than 50% of time spent in counselling and/or direct pt care on unit). Coding Level of Care Code Acute Board Stacker for [facility] 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 Diagnoses COVID-19 virus infection U07.1 Acute respiratory distress syndrome (ARDS) due to COVID-19 virus U07.1; J80 Dehydration E86.0 Congestive 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 I11.0 Chronic kidney disease (CKD) N18.32 Chronic kidney disease stage: stage 3 (moderate) Chronic kidney disease stage 3 subtype: stage 3b (GFR 30-44) Dyslipidemia E78.5 ASHD (arteriosclerotic heart disease) I25.10 Diabetes 1.5, managed as type 2 E13.9 Hypertensive urgency I16.0
[2020-01-27] MEDS: benzonatate 100 mg Capsule PO (14:41)
--- NOTE | 2020-01-27 14:48 | PC.NURSE ---
DR MAC AWARE OF BLOOD CULTURES.
[2020-01-27 15:59] LABS: Glucose Point of Care 199 mg/dL (70-110)
[2020-01-27] MEDS: atorvastatin 40 mg Tablet PO (21:45)
[2020-01-27] MEDS: insulin glargine 100 units/1 mL 72 UNIT SUBCUT (21:45)
[2020-01-27 21:47] LABS: Glucose Point of Care 163 mg/dL (70-110)
[2020-01-28] VITALS (20 sets, daily range): BP systolic 120–175; BP diastolic 63–87; PULSE 67–80; RESP 2–29; TEMP 36.3–36.8; O2SAT 88–94
[2020-01-28 06:37] LABS: Basophils % 0.1 %; Hematocrit 30.7 % (42.0-52.0); Hemoglobin 9.7 g/dL (11.7-16.6); Lymphocytes # 0.4 10^3/uL (0.8-4.8); Lymphocytes % 3.3 %; Mean Corpuscular HGB Conc 31.6 g/dL (30.0-36.0); Mean Corpuscular Hemoglobin 27.8 pg (28.0-34.0); Mean Platelet Volume 10.4 fL (7.4-10.4); Monocytes # 0.7 10^3/uL (0.2-0.9); Monocytes % 5.7 %; Neutrophils # 11.28 10^3/uL (1.8-7.7); Neutrophils % 89.7 %; Nucleated Red Blood Cells % 0 %; Platelet Count 224 10^3/cmm (130-400); Red Blood Count 3.49 10^6/uL (4.1-5.3); Red Cell Distribution Width 15.3 % (12.1-15.1); White Blood Count 12.6 10^3/uL (4.0-10.0)
[2020-01-28] MEDS: pantoprazole DR 40 mg Tablet PO (06:43)
[2020-01-28] MEDS: isosorbide mononitrate ER 60 mg Tablet PO (06:43)
[2020-01-28] MEDS: insulin glargine 100 units/1 mL 62 UNIT SUBCUT (06:44)
[2020-01-28 07:04] LABS: D Dimer 0.81 ug/mIFEU (0-0.59)
[2020-01-28 07:20] LABS: Alanine Aminotransferase 22 U/L (0-41); Albumin Level 3.4 g/dL (3.5-5.2); Alkaline Phosphatase 158 IU/L (40-130); Anion Gap 19.5 (5-19); Aspartate Amino Transferase 31 U/L (0-40); C Reactive Protein 71.6 mg/L (0.0-4.9); Calcium 8.7 mg/dL (8.5-10.5); Carbon Dioxide 22 mmol/L (22-29); Chloride 105 mmol/L (98-107); Globulin 2.7 g/dL (1.3-4.6); Glucose 68 mg/dL (65-115); Osmolality Calculated 325 mOsm/kg (285-295); Potassium 3.5 mmol/L (3.5-5.1); Sodium 143 mmol/L (136-145); Total Bilirubin 0.4 mg/dL (0.15-1.2); Total Protein 6.1 g/dL (6.6-8.7)
[2020-01-28 07:25] LABS: NT Pro B Type Natriuretic Pept 1677 pg/mL (0-125); Procalcitonin 0.42 ng/mL (0-0.5)
[2020-01-28 07:29] LABS: Blood Urea Nitrogen 100 mg/dL (8-23)
[2020-01-28 07:36] LABS: Glucose Point of Care 73 mg/dL (70-110)
[2020-01-28 07:36] LABS: Lactate Dehydrogenase 363 U/L (135-225)
[2020-01-28 08:03] LABS: Ferritin 8523 ng/mL (30-400)
[2020-01-28 08:13] LABS: Fibrinogen 731 mg/dL (174-498)
[2020-01-28] MEDS: dexamethasone 4 mg/mL INJ 6 MG IVP (09:30)
[2020-01-28] MEDS: zinc gluconate 50 mg Tablet PO (09:30)
[2020-01-28] MEDS: apixaban 5 mg Tablet PO ×2 (09:31→17:24)
[2020-01-28] MEDS: FUROsemide 40 mg Tablet 60 MG PO ×2 (09:31→17:22)
[2020-01-28] MEDS: metoprolol tartrate 50 mg Tablet PO ×2 (09:32→17:37)
[2020-01-28] MEDS: azithromycin 250 mg Tablet 500 MG PO (09:32)
[2020-01-28] MEDS: ascorbic acid 500 mg Tablet PO ×2 (09:32→17:23)
[2020-01-28] MEDS: aspirin 81 mg EC Tablet PO (09:32)
[2020-01-28] MEDS: levothyroxine 25 mcg Tablet PO (09:32)
[2020-01-28] MEDS: escitalopram 10 mg Tablet PO (09:33)
[2020-01-28] MEDS: hyDRALAzine 50 mg Tablet 100 MG PO ×3 (09:33→21:58)
[2020-01-28] MEDS: labetalol 200 mg Tablet 100 MG PO ×2 (09:33→17:23)
[2020-01-28] MEDS: allopurinol 300 mg Tablet PO (09:33)
[2020-01-28] MEDS: calcitriol 0.25 mcg Capsule 1 MCG PO (09:33)
[2020-01-28] MEDS: cetirizine 10 mg Tablet PO (09:34)
[2020-01-28] MEDS: terazosin 5 mg Capsule 10 MG PO ×2 (09:34→17:37)
[2020-01-28 10:47] LABS: Glucose Point of Care 118 mg/dL (70-110)
--- NOTE | 2020-01-28 11:43 | PC.NURSE ---
0700- RECEIVED REPORT FROM WANDA MOJICA. PT DID WELL OVER NIGHT. NO NEEDS VOICED THIS MORNING.
--- NOTE | 2020-01-28 12:41 | PC.SOCIAL ---
IMM Update Pg. 2 of IMM updated and reviewed with patient's over the phone. Verbalized understanding.
--- NOTE | 2020-01-28 14:07 | P.PN_ITS ---
Subjective Subjective: Interval history: Currently on 3 L NC, sitting in recliner by bedside, no apparent distress, in good spirits today. Poor sleep last night. Had 800 mL urine output overnight. Noted worsening renal function, on day 4 of Remdesevir. Medications: Reviewed: Yes Medication Review Details: Active Medications Generic Name Dose Route Start Last Admin Trade Name Freq PRN Reason Stop Dose Admin Acetaminophen 650 mg 01/25/20 18:05 Tylenol PO Q6H PRN Mild/Mod Pain Or Temp >/= 101 Albuterol Sulfate 2 puff 01/26/20 04:54 Ventolin INHALATION Q4H.RESPIRATORY P RN SHORTNESS OF SHAHID TH Allopurinol 300 mg 01/26/20 09:00 01/28/20 09:33 Zyloprim PO 300 mg DAILY SAYRA Administration Apixaban 5 mg 01/26/20 09:00 01/28/20 09:31 Eliquis PO 5 mg BID SAYRA Administration Ascorbic Acid 500 mg 01/26/20 09:00 01/28/20 09:32 Vitamin C PO 500 mg BID SAYRA Administration Aspirin 81 mg 01/26/20 09:00 01/28/20 09:32 Aspirin Ec PO 81 mg DAILY SAYRA Administration Atorvastatin Calci um 40 mg 01/27/20 21:00 01/27/20 21:45 Lipitor PO 40 mg BEDTIME SAYRA Administration Azithromycin 500 mg 01/26/20 09:00 01/28/20 09:32 Zithromax PO 500 mg DAILY SAYRA Administration Protocol Benzonatate 100 mg 01/25/20 18:16 01/27/20 14:41 Tessalon Pearls PO 100 mg TID PRN Administration COUGH Calcitriol 1 mcg 01/26/20 09:00 01/28/20 09:33 Rocaltrol PO 1 mcg [email or web address] SAYRA Administration Cetirizine HCl 10 mg 01/26/20 09:00 01/28/20 09:34 Zyrtec PO 10 mg DAILY SAYRA Administration Dexamethasone 6 mg 01/26/20 09:00 01/28/20 09:30 Decadron IVP 6 mg Q24H SAYRA Administration Dextrose 25 ml 01/25/20 18:01 D50w IVP ONCE PRN hypoglycemia prot ocol Protocol Dextrose 50 ml 01/25/20 18:01 D50w IVP PRN PRN hypoglycemia prot ocol Protocol Escitalopram Oxala te 10 mg 01/26/20 09:00 01/28/20 09:33 Lexapro PO 10 mg DAILY SAYRA Administration Furosemide 60 mg 01/26/20 18:00 01/28/20 09:31 Lasix PO 60 mg BID SAYRA Administration Glucagon 1 mg 01/25/20 18:01 Glucagen IM ONCE PRN Adult Acute Hypog lycemia Prot. Protocol Hydralazine HCl 100 mg 01/25/20 21:00 01/28/20 09:33 Apresoline PO 100 mg TID SAYRA Administration remdesivir (EUA) 1 00 mg/ 100 mls @ 100 mls /hr 01/26/20 14:30 01/27/20 13:29 Sodium Chloride IV 01/29/20 15:29 100 mls/hr Q24H SAYRA Administration Dextrose 500 mls @ 100 mls /hr 01/25/20 18:01 D5w IV ONCE PRN Adult Acute Hypog lycemia Prot Protocol Insulin Aspart 0 unit 01/25/20 21:00 01/28/20 11:18 Novolog SUBCUT Not Given WM&BEDTIME SAYRA Protocol Insulin Glargine 62 unit 01/26/20 06:00 01/28/20 06:44 Lantus SUBCUT 62 unit QAM SAYRA Administration Insulin Glargine 72 unit 01/25/20 21:00 01/27/20 21:45 Lantus SUBCUT 72 unit BEDTIME SAYRA Administration Isosorbide Mononit rate 60 mg 01/26/20 06:00 01/28/20 06:43 Imdur PO 60 mg QAM SAYRA Administration Labetalol HCl 100 mg 01/25/20 18:30 01/28/20 09:33 Trandate PO 100 mg BID SAYRA Administration Levothyroxine Sodi um 25 mcg 01/26/20 09:00 01/28/20 09:32 Synthroid PO 25 mcg DAILY SAYRA Administration Metoprolol Tartrat e 50 mg 01/25/20 18:30 01/28/20 09:32 Lopressor PO 50 mg BID SAYRA Administration Nitroglycerin 0.4 mg 01/25/20 17:56 Nitrostat SUBLINGUAL Q5M PRN Chest Pain Ondansetron HCl 4 mg 01/25/20 18:05 Zofran IVP Q6H PRN vomiting, or N/V if npo Pantoprazole Sodiu m 40 mg 01/26/20 06:00 01/28/20 06:43 Protonix PO 40 mg QAM SAYRA Administration Terazosin HCl 10 mg 01/25/20 18:30 01/28/20 09:34 Hytrin PO 10 mg BID SAYRA Administration Zinc Gluconate 50 mg 01/26/20 09:00 01/28/20 09:30 Zinc Gluconate PO 50 mg DAILY SAYRA Administration chicken derived Allergy (Unknown, Verified 01/25/20 11:04) Unknown Vitals/I&O/Wt Last Vital Signs Temp 98.2 F 01/28/20 11:09 Pulse 74 01/28/20 08:29 Resp 18 01/28/20 08:29 BP 165/87 01/28/20 07:00 Pulse Ox 94 01/28/20 08:29 01/27/20 01/28/20 01/28/20 22:59 06:59 14:59 Intake Total 311 / 1152 451 / 1603 720 / 720 Output Total 500 / 950 300 / 1250 250 / 250 Balance -189 / 202 151 / 353 470 / 470 Weight last 48 hrs Weight 104.326 kg Physical Exam Const: COMMON NORMALS: no acute distress and patient oriented x3 GENERAL APPEARANCE: cooperative and comfortable NUTRITIONAL APPEARANCE: obese morbidly obese ORIENTATION/CONSCIOUSNESS: Yes awake OTHER: -somewhat ill appearing HENMT: COMMON NORMALS: normocephalic, atraumatic and hearing grossly normal bilaterally HEAD & SCALP: normocephalic and atraumatic MOUTH: moist mucous membranes abnormal Details: parched Eye: COMMON NORMALS: Equal, round and reactive pupils present, EOMs intact bilaterally and conjunctivae normal CONJUNCTIVA: Yes conjunctivae normal PUPIL: Yes Equal, round and reactive pupils present Neck/C-Spine: COMMON NORMALS: full ROM GENERAL: Yes normal visual inspection and Yes trachea midline Resp: COMMON NORMALS: No retractions and No use of accessory muscles EFFORT & INSPECTION: Yes able to speak in complete sentences, Yes symmetric chest movement and Yes tachypneic OTHER: -on 3 L NC, symmetrical air entry bilaterally Cardio: COMMON NORMALS: regular rate, regular rhythm, S1 normal heart sound present, S2 normal heart sound present and No murmurs present (Cardio) RATE: regular rate RHYTHM: regular rhythm HEART SOUNDS: S1 normal heart sound present and S2 normal heart sound present OTHER: -hypertensive GI: COMMON NORMALS: Normal to inspection, nondistended, normoactive bowel sounds present, Soft to palpation and non-tender INSPECTION: Yes central obesity PALPATION: Yes Soft to palpation Extremity: COMMON NORMALS: normal to inspection, full ROM and no clubbing, cyanosis or edema; negative for no pedal edema Neuro: COMMON NORMALS: patient oriented x3, moves all extremities, no focal motor deficits and no sensory deficits noted Psych: COMMON NORMALS: mental status grossly normal, Normal thought process present, cooperative, normal affect and speech normal SPEECH: Yes normal speech THOUGHT PROCESS: Normal thought process present Skin: COMMON NORMALS: no rashes or lesions noted, no jaundice, no petechiae and no mottling GENERAL SKIN EXAM: no rashes or lesions noted Data : 01/28/20 05:41 01/28/20 05:41 Micro: Microbiology 01/26/20 10:17 Gram Stain - Final Sputum - Expectorated Sputum Sputum Culture - Final 01/25/20 20:50 Blood Culture - Preliminary Blood Gram positive cocci 01/25/20 10:43 Blood Culture - Preliminary Blood Gram positive cocci A&P Assessment and plan (1) COVID-19 virus infection: -Found to be COVID-19 positive per rapid testing, symptomatic and severe based on CRP greater than 100, significantly elevated ferritin, elevated LDH -Isolation precautions -stable oxygen requirement, currently on 3-4 L NC, baseline oxygen requirement is 3 L. -Close monitoring of respiratory status -Supplemental oxygen as needed, wean to baseline as tolerated -on day 4 of Remdesevir, continue antiviral treatment -continue dexamethasone -Inhaler treatments as needed, zinc, vitamin C, antitussives, incentive spirometry, pulmonary toilet, prone positioning as tolerated by patient -RT to assess and treat -Chest x-ray report reviewed with noted bilateral perihilar interstitial infiltrates and left midlung infiltrate suspicious for pneumonia, repeat imaging unchanged -on empiric antibiotic treatment with azithromycin -MRSA, bacterial antigens, Legionella negative -blood cx: prelim negative -sputum cx-mixed respiratory lucia, gram stain-few GPC -Telemetry monitoring -on Eliquis due to associated risk of thrombosis -continue to trend inflammatory markers, noted significant elevation in ferritin, otherwise trending down Status: Acute (2) Acute respiratory distress syndrome (ARDS) due to COVID-19 virus: -CT chest with noted changes consistent with ARDS. Anticipate higher oxygen requirement including need for vent support in light of these changes so will continue close monitoring of respiratory status. -already on IV steroids, remdesevir, maintaining negative fluid balance Status: Acute (3) Dehydration: -appears clinically dehydrated; off IVF, encourage oral hydration Status: Resolved (4) Congestive 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: -no acute exacerbation of chronic diastolic CHF -Echo (02/2019): EF=65%, G1DD, mild LVH, mild MR, mild TR -on diuretics, fluid restriction; maintaining negative fluid balance is eric Status: Chronic (5) Chronic kidney disease (CKD): -IVAN on CKD stage 3-4 -baseline Cr appears to be around 2-2.7 but has been as high as 3.7 in the past -close monitoring of renal function, avoid nephrotoxins, there is some potential for nephrotoxicity with antiviral treatment -follows up with machinery dismantler Dr. 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 -Accuchecks, ISS, scheduled insulin, hypoglycemia precautions -consistent carb diet as tolerated Status: Chronic (9) Hypertensive urgency: -BP improved with resumption of oral antihypertensives -Close monitoring of vital signs -continue oral antihypertensives, titrate as needed for optimal blood pressure control the suspect that blood pressure is a challenge to control given multiple antihypertensive medications on med list Status: Resolved Additional A&P Information -Hypothyroidism, TSH wnl, continue levothyroxine -hx of gout, on allopurinol -Anemia of chronic disease, baseline hemoglobin appears to be around 10, continue to monitor H&H, stable so far -consistent carb diet as tolerated -GI ppx with PPI -DVT ppx not needed as on Eliquis -Dispo: home -Code status: FULL code -called and updated Dayna ([phone]) on patient's clinical status, continued antiviral treatment Attestations Medical Necessity Statement*: Patient requires hospitalization for continued management of COVID-19 pneumonia, on antiviral treatment. Time Spent in Patient Care: 16 - 35 minutes (>than 50% of time spent in counselling and/or direct pt care on unit) . Coding Level of Care Code Acute General Matcher for [facility] Fwd Diagnoses COVID-19 virus infection U07.1 Acute respiratory distress syndrome (ARDS) due to COVID-19 virus U07.1; J80 Dehydration E86.0 Congestive 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 I11.0 Chronic kidney disease (CKD) N18.32 Chronic kidney disease stage: stage 3 (moderate) Chronic kidney disease stage 3 subtype: stage 3b (GFR 30-44) Dyslipidemia E78.5 ASHD (arteriosclerotic heart disease) I25.10 Diabetes 1.5, managed as type 2 E13.9 Hypertensive urgency I16.0
[2020-01-28] MEDS: benzonatate 100 mg Capsule PO (17:24)
[2020-01-28 17:30] LABS: Glucose Point of Care 245 mg/dL (70-110)
--- NOTE | 2020-01-28 18:53 | PC.NURSE ---
PT SITTING UP IN RECLINER AT BEDSIDE. WATCHING TV. DENIES ANY C/O AT PRESENT. WISHED WELL
[2020-01-28 21:52] LABS: Glucose Point of Care 370 mg/dL (70-110)
[2020-01-28] MEDS: atorvastatin 40 mg Tablet PO (21:58)
[2020-01-28] MEDS: insulin glargine 100 units/1 mL 72 UNIT SUBCUT (21:59)
[2020-01-29] VITALS (23 sets, daily range): BP systolic 95–187; BP diastolic 56–92; PULSE 63–77; RESP 13–39; TEMP 35.2–36.7; O2SAT 89–95
[2020-01-29 05:03] LABS: Basophils % 0.1 %; Hematocrit 32.2 % (42.0-52.0); Hemoglobin 10.1 g/dL (11.7-16.6); Lymphocytes # 0.4 10^3/uL (0.8-4.8); Lymphocytes % 3.5 %; Mean Corpuscular HGB Conc 31.4 g/dL (30.0-36.0); Mean Corpuscular Hemoglobin 27.5 pg (28.0-34.0); Mean Corpuscular Volume 87.7 fL (80-94); Mean Platelet Volume 10.7 fL (7.4-10.4); Monocytes # 0.8 10^3/uL (0.2-0.9); Monocytes % 6.5 %; Neutrophils # 10.12 10^3/uL (1.8-7.7); Neutrophils % 87.2 %; Nucleated Red Blood Cells % 0 %; Platelet Count 225 10^3/cmm (130-400); Red Blood Count 3.67 10^6/uL (4.1-5.3); Red Cell Distribution Width 15.2 % (12.1-15.1); White Blood Count 11.6 10^3/uL (4.0-10.0)
[2020-01-29 05:34] LABS: Fibrinogen 696 mg/dL (174-498)
[2020-01-29 05:39] LABS: D Dimer 0.76 ug/mIFEU (0-0.59)
[2020-01-29 05:50] LABS: Anion Gap 20.3 (5-19); C Reactive Protein 51.8 mg/L (0.0-4.9); Carbon Dioxide 23 mmol/L (22-29); Chloride 101 mmol/L (98-107); Creatinine Clr Calc Pharmacy 24.7336; Glomerular Filtration Rate 18.7 mL/min (90-130); Glucose 211 mg/dL (65-115); Osmolality Calculated 333 mOsm/kg (285-295); Potassium 3.3 mmol/L (3.5-5.1); Sodium 141 mmol/L (136-145)
[2020-01-29 05:54] LABS: Lactate Dehydrogenase 398 U/L (135-225); NT Pro B Type Natriuretic Pept 895 pg/mL (0-125)
[2020-01-29 06:01] LABS: Calcium 9.1 mg/dL (8.5-10.5); Magnesium 2.2 mg/dL (1.7-2.3)
[2020-01-29 06:02] LABS: Blood Urea Nitrogen 110 mg/dL (8-23)
[2020-01-29] MEDS: insulin glargine 100 units/1 mL 62 UNIT SUBCUT (06:08)
[2020-01-29] MEDS: pantoprazole DR 40 mg Tablet PO (06:08)
[2020-01-29] MEDS: isosorbide mononitrate ER 60 mg Tablet PO (06:08)
[2020-01-29 06:10] LABS: Glucose Point of Care 189 mg/dL (70-110)
[2020-01-29 06:17] LABS: Ferritin 6877 ng/mL (30-400)
[2020-01-29 08:09] LABS: Glucose Point of Care 160 mg/dL (70-110)
[2020-01-29] MEDS: aspirin 81 mg EC Tablet PO (09:22)
[2020-01-29] MEDS: terazosin 5 mg Capsule 10 MG PO ×2 (09:22→18:13)
[2020-01-29] MEDS: metoprolol tartrate 50 mg Tablet PO ×2 (09:22→18:13)
[2020-01-29] MEDS: cetirizine 10 mg Tablet PO (09:22)
[2020-01-29] MEDS: ascorbic acid 500 mg Tablet PO ×2 (09:23→18:12)
[2020-01-29] MEDS: apixaban 5 mg Tablet PO ×2 (09:23→18:11)
[2020-01-29] MEDS: allopurinol 300 mg Tablet PO (09:23)
[2020-01-29] MEDS: levothyroxine 25 mcg Tablet PO (09:23)
[2020-01-29] MEDS: zinc gluconate 50 mg Tablet PO (09:23)
[2020-01-29] MEDS: hyDRALAzine 50 mg Tablet 100 MG PO ×3 (09:23→21:40)
[2020-01-29] MEDS: FUROsemide 40 mg Tablet 60 MG PO ×2 (09:23→18:11)
[2020-01-29] MEDS: escitalopram 10 mg Tablet PO (09:23)
[2020-01-29] MEDS: azithromycin 250 mg Tablet 500 MG PO (09:24)
[2020-01-29] MEDS: labetalol 200 mg Tablet 100 MG PO ×2 (09:24→18:13)
[2020-01-29] MEDS: dexamethasone 4 mg/mL INJ 6 MG IVP (09:24)
[2020-01-29 12:03] LABS: Glucose Point of Care 133 mg/dL (70-110)
--- NOTE | 2020-01-29 14:31 | PM.PN ---
Subjective Subjective: Interval history: Able oxygen requirement at 3 to 4 L nasal cannula, inflammatory markers continue to improve, on day 5 of remdesevir. Sitting in recliner by bedside, reports feeling a little better today, little out of bed activity otherwise. Medications: Reviewed: Yes Medication Review Details: Active Medications Generic Name Dose Route Start Last Admin Trade Name Freq PRN Reason Stop Dose Admin Acetaminophen 650 mg 01/25/20 18:05 Tylenol PO Q6H PRN Mild/Mod Pain Or Temp >/= 101 Albuterol Sulfate 2 puff 01/26/20 04:54 Ventolin INHALATION Q4H.RESPIRATORY P RN SHORTNESS OF SHAHID TH Allopurinol 300 mg 01/26/20 09:00 01/29/20 09:23 Zyloprim PO 300 mg DAILY SAYRA Administration Apixaban 5 mg 01/26/20 09:00 01/29/20 09:23 Eliquis PO 5 mg BID SAYRA Administration Ascorbic Acid 500 mg 01/26/20 09:00 01/29/20 09:23 Vitamin C PO 500 mg BID SAYRA Administration Aspirin 81 mg 01/26/20 09:00 01/29/20 09:22 Aspirin Ec PO 81 mg DAILY SAYRA Administration Atorvastatin Calci um 40 mg 01/27/20 21:00 01/28/20 21:58 Lipitor PO 40 mg BEDTIME SAYRA Administration Azithromycin 500 mg 01/26/20 09:00 01/29/20 09:24 Zithromax PO 500 mg DAILY SAYRA Administration Protocol Benzonatate 100 mg 01/25/20 18:16 01/28/20 17:24 Tessalon Pearls PO 100 mg TID PRN Administration COUGH Calcitriol 1 mcg 01/26/20 09:00 01/28/20 09:33 Rocaltrol PO 1 mcg [email or web address] SAYRA Administration Cetirizine HCl 10 mg 01/26/20 09:00 01/29/20 09:22 Zyrtec PO 10 mg DAILY SAYRA Administration Dexamethasone 6 mg 01/26/20 09:00 01/29/20 09:24 Decadron IVP 6 mg Q24H SAYRA Administration Dextrose 25 ml 01/25/20 18:01 D50w IVP ONCE PRN hypoglycemia prot ocol Protocol Dextrose 50 ml 01/25/20 18:01 D50w IVP PRN PRN hypoglycemia prot ocol Protocol Escitalopram Oxala te 10 mg 10/07/20 09:00 01/29/20 09:23 Lexapro PO 10 mg DAILY SAYRA Administration Furosemide 60 mg 01/26/20 18:00 01/29/20 09:23 Lasix PO 60 mg BID SAYRA Administration Glucagon 1 mg 01/25/20 18:01 Glucagen IM ONCE PRN Adult Acute Hypog lycemia Prot. Protocol Hydralazine HCl 100 mg 01/25/20 21:00 01/29/20 09:23 Apresoline PO 100 mg TID SAYRA Administration remdesivir (EUA) 1 00 mg/ 100 mls @ 100 mls /hr 01/26/20 14:30 01/28/20 14:49 Sodium Chloride IV 01/29/20 15:29 100 mls/hr Q24H SAYRA Administration Dextrose 500 mls @ 100 mls /hr 01/25/20 18:01 D5w IV ONCE PRN Adult Acute Hypog lycemia Prot Protocol Insulin Aspart 0 unit 01/25/20 21:00 01/29/20 12:18 Novolog SUBCUT Not Given WM&BEDTIME SAYRA Protocol Insulin Glargine 62 unit 01/26/20 06:00 01/29/20 06:08 Lantus SUBCUT 62 unit QAM SAYRA Administration Insulin Glargine 72 unit 01/25/20 21:00 01/28/20 21:59 Lantus SUBCUT 72 unit BEDTIME SAYRA Administration Isosorbide Mononit rate 60 mg 01/26/20 06:00 01/29/20 06:08 Imdur PO 60 mg QAM SAYRA Administration Labetalol HCl 100 mg 01/25/20 18:30 01/29/20 09:24 Trandate PO 100 mg BID SAYRA Administration Levothyroxine Sodi um 25 mcg 01/26/20 09:00 01/29/20 09:23 Synthroid PO 25 mcg DAILY SAYRA Administration Metoprolol Tartrat e 50 mg 01/25/20 18:30 01/29/20 09:22 Lopressor PO 50 mg BID SAYRA Administration Nitroglycerin 0.4 mg 01/25/20 17:56 Nitrostat SUBLINGUAL Q5M PRN Chest Pain Ondansetron HCl 4 mg 01/25/20 18:05 Zofran IVP Q6H PRN vomiting, or N/V if npo Pantoprazole Sodiu m 40 mg 01/26/20 06:00 01/29/20 06:08 Protonix PO 40 mg QAM SAYRA Administration Terazosin HCl 10 mg 01/25/20 18:30 01/29/20 09:22 Hytrin PO 10 mg BID SAYRA Administration Zinc Gluconate 50 mg 01/26/20 09:00 01/29/20 09:23 Zinc Gluconate PO 50 mg DAILY SAYRA Administration chicken derived Allergy (Unknown, Verified 01/25/20 11:04) Unknown Vitals/I&O/Wt Last Vital Signs Temp 98.0 F 01/29/20 07:00 Pulse 67 01/29/20 14:00 Resp 23 H 01/29/20 14:00 BP 127/64 01/29/20 14:00 Pulse Ox 90 01/29/20 14:00 01/28/20 01/29/20 01/29/20 22:59 06:59 14:59 Intake Total 840 / 1560 480 / 2040 Output Total 950 / 1200 1400 / 2600 Balance -110 / 360 -920 / -560 Weight last 48 hrs Weight 97.704 kg Physical Exam Const: COMMON NORMALS: no acute distress and patient oriented x3 GENERAL APPEARANCE: cooperative and comfortable NUTRITIONAL APPEARANCE: obese morbidly obese ORIENTATION/CONSCIOUSNESS: Yes awake HENMT: COMMON NORMALS: normocephalic, atraumatic and hearing grossly normal bilaterally HEAD & SCALP: normocephalic and atraumatic MOUTH: moist mucous membranes abnormal Details: parched Eye: COMMON NORMALS: Equal, round and reactive pupils present, EOMs intact bilaterally and conjunctivae normal CONJUNCTIVA: Yes conjunctivae normal PUPIL: Yes Equal, round and reactive pupils present Neck/C-Spine: COMMON NORMALS: full ROM GENERAL: Yes normal visual inspection and Yes trachea midline Resp: COMMON NORMALS: No retractions and No use of accessory muscles EFFORT & INSPECTION: Yes able to speak in complete sentences, Yes symmetric chest movement and Yes tachypneic OTHER: -on 3-4 L NC, symmetrical air entry bilaterally Cardio: COMMON NORMALS: regular rate, regular rhythm, S1 normal heart sound present, S2 normal heart sound present and No murmurs present (Cardio) RATE: regular rate RHYTHM: regular rhythm HEART SOUNDS: S1 normal heart sound present and S2 normal heart sound present GI: COMMON NORMALS: Normal to inspection, nondistended, normoactive bowel sounds present, Soft to palpation and non-tender INSPECTION: Yes central obesity PALPATION: Yes Soft to palpation Extremity: COMMON NORMALS: normal to inspection, full ROM and no clubbing, cyanosis or edema; negative for no pedal edema Neuro: COMMON NORMALS: patient oriented x3, moves all extremities, no focal motor deficits and no sensory deficits noted Psych: COMMON NORMALS: mental status grossly normal, Normal thought process present, cooperative, normal affect and speech normal SPEECH: Yes normal speech THOUGHT PROCESS: Normal thought process present Skin: COMMON NORMALS: no rashes or lesions noted, no jaundice, no petechiae and no mottling GENERAL SKIN EXAM: no rashes or lesions noted Data : 01/29/20 04:20 01/29/20 04:20 Micro: Microbiology 01/25/20 20:50 Blood Culture - Preliminary Blood Coagulase negativ staphylococc 01/25/20 10:43 Blood Culture - Preliminary Blood Staphylococcus aureus 01/26/20 10:17 Gram Stain - Final Sputum - Expectorated Sputum Sputum Culture - Final A&P Assessment and plan (1) COVID-19 virus infection: -Found to be COVID-19 positive per rapid testing, symptomatic and severe based on CRP greater than 100, significantly elevated ferritin, elevated LDH -Isolation precautions -stable oxygen requirement, currently on 3-4 L NC, baseline oxygen requirement is 3 L. -Close monitoring of respiratory status -Supplemental oxygen as needed, wean to baseline as tolerated -on day 5 of Remdesevir, continue antiviral treatment -continue dexamethasone -Inhaler treatments as needed, zinc, vitamin C, antitussives, incentive spirometry, pulmonary toilet, prone positioning as tolerated by patient -RT to assess and treat -Chest x-ray report reviewed with noted bilateral perihilar interstitial infiltrates and left midlung infiltrate suspicious for pneumonia, repeat imaging unchanged -on empiric antibiotic treatment with azithromycin -MRSA, bacterial antigens, Legionella negative -blood cx: prelim negative -sputum cx-mixed respiratory lucia, gram stain-few GPC -Telemetry monitoring -on Eliquis due to associated risk of thrombosis -continue to trend inflammatory markers, noted significant elevation in ferritin, otherwise trending down Status: Acute (2) Acute respiratory distress syndrome (ARDS) due to COVID-19 virus: -CT chest with noted changes consistent with ARDS. Anticipate higher oxygen requirement including need for vent support in light of these changes so will continue close monitoring of respiratory status. -already on IV steroids, remdesevir, maintaining negative fluid balance Status: Acute (3) Dehydration: -appears clinically dehydrated; off IVF, encourage oral hydration Status: Resolved (4) Congestive 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: -no acute exacerbation of chronic diastolic CHF -Echo (02/2019): EF=65%, G1DD, mild LVH, mild MR, mild TR -on diuretics, fluid restriction; maintaining negative fluid balance is eric Status: Chronic (5) Chronic kidney disease (CKD): -IVAN on CKD stage 3-4 -baseline Cr appears to be around 2-2.7 but has been as high as 3.7 in the past -close monitoring of renal function, avoid nephrotoxins, there is some potential for nephrotoxicity with antiviral treatment -follows up with highway maintenance worker Dr. Chito Simpson in [place] -BUN is trending up, Cr is stable Status: Chronic Qualifiers: Chronic kidney disease stage: stage 3 (moderate) Chronic kidney disease stage 3 subtype: stage 3b (GFR 30-44) Qualified Code(s): N18.32 - Chronic kidney disease, stage 3b (6) Dyslipidemia: -continue statin as CPK normalized Status: Chronic (7) ASHD (arteriosclerotic heart disease): -continue ASA, imdur; hold plavix as is on AC to minimize bleeding risk Status: Chronic (8) Diabetes 1.5, managed as type 2: -A1c-9.9 -Accuchecks, ISS, scheduled insulin, hypoglycemia precautions -consistent carb diet as tolerated Status: Chronic (9) Hypertensive urgency: -BP improved with resumption of oral antihypertensives -Close monitoring of vital signs -continue oral antihypertensives, titrate as needed for optimal blood pressure control the suspect that blood pressure is a challenge to control given multiple antihypertensive medications on med list Status: Resolved Additional A&P Information -Hypothyroidism, TSH wnl, continue levothyroxine -hx of gout, on allopurinol -Anemia of chronic disease, baseline hemoglobin appears to be around 10, continue to monitor H&H, stable so far -consistent carb diet as tolerated -GI ppx with PPI -DVT ppx not needed as on Eliquis -PT evaluation tomorrow -Dispo: home -Code status: FULL code Attestations Medical Necessity Statement*: Patient requires hospitalization for continued management of COVID-19 pneumonia, on antiviral treatment. Time Spent in Patient Care: 16 - 35 minutes (>than 50% of time spent in counselling and/or direct pt care on unit). Coding Level of Care Code Acute [employer] for g 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 Diagnoses COVID-19 virus infection U07.1 Acute respiratory distress syndrome (ARDS) due to COVID-19 virus U07.1; J80 Dehydration E86.0 Congestive 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 I11.0 Chronic kidney disease (CKD) N18.32 Chronic kidney disease stage: stage 3 (moderate) Chronic kidney disease stage 3 subtype: stage 3b (GFR 30-44) Dyslipidemia E78.5 ASHD (arteriosclerotic heart disease) I25.10 Diabetes 1.5, managed as type 2 E13.9 Hypertensive urgency I16.0
[2020-01-29 17:27] LABS: Glucose Point of Care 143 mg/dL (70-110)
[2020-01-29 20:25] LABS: Glucose Point of Care 306 mg/dL (70-110)
[2020-01-29] MEDS: insulin glargine 100 units/1 mL 72 UNIT SUBCUT (21:41)
[2020-01-29] MEDS: atorvastatin 40 mg Tablet PO (21:41)
[2020-01-30] VITALS (26 sets, daily range): BP systolic 91–166; BP diastolic 53–90; PULSE 59–83; RESP 9–35; TEMP 36.4–36.9; O2SAT 81–96
--- NOTE | 2020-01-30 06:00 | XRR_ITS ---
PROCEDURE INFORMATION: Exam: XR Chest, 1 View Exam date and time: 01/30/2020 6:06 AM Age: 69 years old Clinical indication: Condition or disease; Other: Covid-19 +; Additional info: Progression of ards, covid-19 + TECHNIQUE: Imaging protocol: XR of the chest Views: 1 view. COMPARISON: CR XR chest 1V portable [id number] 01/27/2020 6:07 AM FINDINGS: Lungs: Heterogenous lung infiltrates are seen in the right upper, left mid and lower zones showing some improvement. No consolidation. Pleural space: Unremarkable. No pleural effusion. No pneumothorax. Heart/Mediastinum: Unremarkable. No cardiomegaly. Bones/joints: Unremarkable. XR/XR chest 1V portable [id number] IMPRESSION: Bilateral lung infiltrates showing some improvement.
[2020-01-30 06:23] LABS: Basophils % 0.2 %; Hematocrit 31.9 % (42.0-52.0); Hemoglobin 9.8 g/dL (11.7-16.6); Lymphocytes # 0.6 10^3/uL (0.8-4.8); Lymphocytes % 4.3 %; Mean Corpuscular HGB Conc 30.7 g/dL (30.0-36.0); Mean Corpuscular Hemoglobin 27.3 pg (28.0-34.0); Mean Corpuscular Volume 88.9 fL (80-94); Mean Platelet Volume 10.9 fL (7.4-10.4); Monocytes # 0.8 10^3/uL (0.2-0.9); Monocytes % 6.3 %; Neutrophils # 11.17 10^3/uL (1.8-7.7); Neutrophils % 85.3 %; Nucleated Red Blood Cells % 0 %; Platelet Count 252 10^3/cmm (130-400); Red Blood Count 3.59 10^6/uL (4.1-5.3); Red Cell Distribution Width 15.3 % (12.1-15.1); White Blood Count 13.1 10^3/uL (4.0-10.0)
[2020-01-30 06:43] LABS: Glucose Point of Care 148 mg/dL (70-110)
[2020-01-30 06:49] LABS: NT Pro B Type Natriuretic Pept 678 pg/mL (0-125)
[2020-01-30] MEDS: pantoprazole DR 40 mg Tablet PO (06:57)
[2020-01-30] MEDS: insulin glargine 100 units/1 mL 62 UNIT SUBCUT (06:57)
[2020-01-30] MEDS: isosorbide mononitrate ER 60 mg Tablet PO (06:57)
[2020-01-30 07:17] LABS: Ferritin 4393 ng/mL (30-400)
[2020-01-30 07:19] LABS: Lactate Dehydrogenase 388 U/L (135-225)
[2020-01-30 07:43] LABS: Fibrinogen 564 mg/dL (174-498)
[2020-01-30 07:46] LABS: D Dimer 0.55 ug/mIFEU (0-0.59)
[2020-01-30 08:48] LABS: C Reactive Protein 33.5 mg/L (0.0-4.9); Calcium 9.2 mg/dL (8.5-10.5); Carbon Dioxide 21 mmol/L (22-29); Chloride 102 mmol/L (98-107); Glucose 183 mg/dL (65-115); Sodium 141 mmol/L (136-145)
--- NOTE | 2020-01-30 08:56 | PC.SOCIAL ---
Addendum entered by Mackenzie Asher RN 01/30/20 08:58: IMM Update Pg.2 of IMM updated and reviewed with patient over the phone. Original Note: IMM Update Pg.2 of IMM updated and reviewed with patient over the phone. Copy provided.
[2020-01-30 09:13] LABS: Osmolality Calculated 339 mOsm/kg (285-295)
[2020-01-30 09:17] LABS: Anion Gap 21.6 (5-19); Potassium 3.6 mmol/L (3.5-5.1)
[2020-01-30 09:23] LABS: Blood Urea Nitrogen 130 mg/dL (8-23)
[2020-01-30] MEDS: allopurinol 300 mg Tablet PO (10:11)
[2020-01-30] MEDS: aspirin 81 mg EC Tablet PO (10:12)
[2020-01-30] MEDS: ascorbic acid 500 mg Tablet PO ×2 (10:12→18:24)
[2020-01-30] MEDS: apixaban 5 mg Tablet PO ×2 (10:12→18:23)
[2020-01-30] MEDS: cetirizine 10 mg Tablet PO (10:13)
[2020-01-30] MEDS: azithromycin 250 mg Tablet 500 MG PO (10:13)
[2020-01-30] MEDS: escitalopram 10 mg Tablet PO (10:14)
[2020-01-30] MEDS: dexamethasone 4 mg/mL INJ 6 MG IVP (10:19)
[2020-01-30] MEDS: levothyroxine 25 mcg Tablet PO (10:33)
[2020-01-30] MEDS: zinc gluconate 50 mg Tablet PO (10:34)
[2020-01-30 11:52] LABS: Glucose Point of Care 232 mg/dL (70-110)
--- NOTE | 2020-01-30 13:20 | P.PN_ITS ---
Subjective Subjective: Interval history: Hemodynamically stable, remains on 4 L nasal cannula, some intermittent bradycardia, afebrile. Had 950 mL urine output overnight. Inflammatory markers continue to trend downward. Noted continued increase in BUN though creatinine stable. He has had some loose BMs today, inquires about going home. Overall feels better. Medications: Reviewed: Yes Medication Review Details: Active Medications Generic Name Dose Route Start Last Admin Trade Name Freq PRN Reason Stop Dose Admin Acetaminophen 650 mg 01/25/20 18:05 Tylenol PO Q6H PRN Mild/Mod Pain Or Temp >/= 101 Albuterol Sulfate 2 puff 01/26/20 04:54 Ventolin INHALATION Q4H.RESPIRATORY P RN SHORTNESS OF SHAHID TH Allopurinol 300 mg 01/26/20 09:00 01/30/20 10:11 Zyloprim PO 300 mg DAILY SAYRA Administration Apixaban 5 mg 01/26/20 09:00 01/30/20 10:12 Eliquis PO 5 mg BID SAYRA Administration Ascorbic Acid 500 mg 01/26/20 09:00 01/30/20 10:12 Vitamin C PO 500 mg BID SAYRA Administration Aspirin 81 mg 01/26/20 09:00 01/30/20 10:12 Aspirin Ec PO 81 mg DAILY SAYRA Administration Atorvastatin Calci um 40 mg 01/27/20 21:00 01/29/20 21:41 Lipitor PO 40 mg BEDTIME SAYRA Administration Azithromycin 500 mg 01/26/20 09:00 01/30/20 10:13 Zithromax PO 500 mg DAILY SAYRA Administration Protocol Benzonatate 100 mg 01/25/20 18:16 01/28/20 17:24 Tessalon Pearls PO 100 mg TID PRN Administration COUGH Calcitriol 1 mcg 01/26/20 09:00 01/28/20 09:33 Rocaltrol PO 1 mcg [email or web address] SAYRA Administration Cetirizine HCl 10 mg 01/26/20 09:00 01/30/20 10:13 Zyrtec PO 10 mg DAILY SAYRA Administration Dexamethasone 6 mg 01/26/20 09:00 01/30/20 10:19 Decadron IVP 6 mg Q24H SAYRA Administration Dextrose 25 ml 01/25/20 18:01 D50w IVP ONCE PRN hypoglycemia prot ocol Protocol Dextrose 50 ml 01/25/20 18:01 D50w IVP PRN PRN hypoglycemia prot ocol Protocol Escitalopram Oxala te 10 mg 01/26/20 09:00 01/30/20 10:14 Lexapro PO 10 mg DAILY SAYRA Administration Furosemide 60 mg 01/26/20 18:00 01/30/20 12:54 Lasix PO Not Given BID SAYRA Glucagon 1 mg 01/25/20 18:01 Glucagen IM ONCE PRN Adult Acute Hypog lycemia Prot. Protocol Hydralazine HCl 100 mg 01/25/20 21:00 01/30/20 12:55 Apresoline PO Not Given TID SAYRA Dextrose 500 mls @ 100 mls /hr 01/25/20 18:01 D5w IV ONCE PRN Adult Acute Hypog lycemia Prot Protocol Insulin Aspart 0 unit 01/25/20 21:00 01/30/20 10:11 Novolog SUBCUT 6 unit WM&BEDTIME SAYRA Administration Protocol Insulin Glargine 62 unit 01/26/20 06:00 01/30/20 06:57 Lantus SUBCUT 62 unit QAM SAYRA Administration Insulin Glargine 72 unit 01/25/20 21:00 01/29/20 21:41 Lantus SUBCUT 72 unit BEDTIME SAYRA Administration Isosorbide Mononit rate 60 mg 01/26/20 06:00 01/30/20 06:57 Imdur PO 60 mg QAM SAYRA Administration Labetalol HCl 100 mg 01/25/20 18:30 01/30/20 12:56 Trandate PO Not Given BID [facility] Levothyroxine Sodi um 25 mcg 01/26/20 09:00 01/30/20 10:33 Synthroid PO 25 mcg DAILY SAYRA Administration Metoprolol Tartrat e 50 mg 01/25/20 18:30 01/30/20 12:56 Lopressor PO Not Given BID [facility] Nitroglycerin 0.4 mg 01/25/20 17:56 Nitrostat SUBLINGUAL Q5M PRN Chest Pain Ondansetron HCl 4 mg 01/25/20 18:05 Zofran IVP Q6H PRN vomiting, or N/V if npo Pantoprazole Sodiu m 40 mg 01/26/20 06:00 01/30/20 06:57 Protonix PO 40 mg QAM SAYRA Administration Terazosin HCl 10 mg 01/25/20 18:30 01/30/20 12:56 Hytrin PO Not Given BID SAYRA Zinc Gluconate 50 mg 01/26/20 09:00 01/30/20 10:34 Zinc Gluconate PO 50 mg DAILY SAYRA Administration chicken derived Allergy (Unknown, Verified 01/25/20 11:04) Unknown Vitals/I&O/Wt Last Vital Signs Temp 97.7 F 01/30/20 11:31 Pulse 59 L 01/30/20 11:31 Resp 14 01/30/20 11:31 BP 106/54 01/30/20 11:31 Pulse Ox 96 01/30/20 11:00 01/29/20 01/30/20 01/30/20 22:59 06:59 14:59 Intake Total 480 / 480 480 / 960 120 / 120 Output Total 600 / 600 900 / 1500 Balance -120 / -120 -420 / -540 120 / 120 Weight last 48 hrs Weight 97.704 kg Physical Exam Const: COMMON NORMALS: no acute distress and patient oriented x3 GENERAL APPEARANCE: cooperative and comfortable NUTRITIONAL APPEARANCE: obese morbidly obese ORIENTATION/CONSCIOUSNESS: Yes awake HENMT: COMMON NORMALS: normocephalic, atraumatic and hearing grossly normal bilaterally HEAD & SCALP: normocephalic and atraumatic MOUTH: moist mucous membranes abnormal Details: parched Eye: COMMON NORMALS: Equal, round and reactive pupils present, EOMs intact bilaterally and conjunctivae normal CONJUNCTIVA: Yes conjunctivae normal PUPIL: Yes Equal, round and reactive pupils present Neck/C-Spine: COMMON NORMALS: full ROM GENERAL: Yes normal visual inspection and Yes trachea midline Resp: COMMON NORMALS: No retractions and No use of accessory muscles EFFORT & INSPECTION: Yes able to speak in complete sentences, Yes symmetric chest movement and Yes tachypneic OTHER: -on 4 L NC, symmetrical air entry bilaterally; improved air entry Cardio: COMMON NORMALS: regular rate, regular rhythm, S1 normal heart sound present, S2 normal heart sound present and No murmurs present (Cardio) RATE: regular rate RHYTHM: regular rhythm HEART SOUNDS: S1 normal heart sound present and S2 normal heart sound present GI: COMMON NORMALS: Normal to inspection, nondistended, normoactive bowel sounds present, Soft to palpation and non-tender INSPECTION: Yes central obesity PALPATION: Yes Soft to palpation Extremity: COMMON NORMALS: normal to inspection, full ROM and no clubbing, cyanosis or edema; negative for no pedal edema Neuro: COMMON NORMALS: patient oriented x3, moves all extremities, no focal motor deficits and no sensory deficits noted Psych: COMMON NORMALS: mental status grossly normal, Normal thought process present, cooperative, normal affect and speech normal SPEECH: Yes normal speech THOUGHT PROCESS: Normal thought process present Skin: COMMON NORMALS: no rashes or lesions noted, no jaundice, no petechiae and no mottling GENERAL SKIN EXAM: no rashes or lesions noted Data : 01/30/20 04:40 01/30/20 04:40 Micro: Microbiology 01/29/20 17:55 Blood Culture - Preliminary Blood SPECIMEN COLLECTED 01/29/20 17:25 Blood Culture - Preliminary Blood SPECIMEN COLLECTED 01/25/20 10:43 Blood Culture - Preliminary Blood Staphylococcus aureus A&P Assessment and plan (1) COVID-19 virus infection: -Found to be COVID-19 positive per rapid testing, symptomatic and severe based on CRP greater than 100, significantly elevated ferritin, elevated LDH -Isolation precautions -stable oxygen requirement, currently on 3-4 L NC, baseline oxygen requirement is 3 L. -Close monitoring of respiratory status -Supplemental oxygen as needed, wean to baseline as tolerated -s/p 5 days of Remdesevir -continue dexamethasone (day 08/28) -Inhaler treatments as needed, zinc, vitamin C, antitussives, incentive spirometry, pulmonary toilet, prone positioning as tolerated by patient -RT to assess and treat -Chest x-ray report reviewed with noted bilateral perihilar interstitial infilt rates and left midlung infiltrate suspicious for pneumonia, repeat imaging unchanged -on empiric antibiotic treatment with azithromycin -MRSA, bacterial antigens, Legionella negative -blood cx: prelim negative -sputum cx-mixed respiratory lucia, gram stain-few GPC -Telemetry monitoring -on Eliquis due to associated risk of thrombosis -continue to trend inflammatory markers, noted significant elevation in ferritin, otherwise trending down Status: Acute (2) Acute respiratory distress syndrome (ARDS) due to COVID-19 virus: -CT chest with noted changes consistent with ARDS. -continue close monitoring of respiratory status. -already on IV steroids, remdesevir, maintaining negative fluid balance Status: Acute (3) Dehydration: -appears clinically dehydrated; off IVF, encourage oral hydration Status: Resolved (4) Congestive 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: -no acute exacerbation of chronic diastolic CHF -Echo (02/2019): EF=65%, G1DD, mild LVH, mild MR, mild TR -on diuretics, fluid restriction; maintaining negative fluid balance is eric Status: Chronic (5) Chronic kidney disease (CKD): -IVAN on CKD stage 3-4 -baseline Cr appears to be around 2-2.7 but has been as high as 3.7 in the past -close monitoring of renal function, avoid nephrotoxins, there is some potential for nephrotoxicity with antiviral treatment -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 Chito Simpson in [place] -BUN is trending up, Cr is stable Status: Chronic Qualifiers: Chronic kidney disease stage: stage 3 (moderate) Chronic kidney disease stage 3 subtype: stage 3b (GFR 30-44) Qualified Code(s): N18.32 - Chronic kidney disease, stage 3b (6) Dyslipidemia: -continue statin as CPK normalized Status: Chronic (7) ASHD (arteriosclerotic heart disease): -continue ASA, imdur; hold plavix as is on AC to minimize bleeding risk Status: Chronic (8) Diabetes 1.5, managed as type 2: -A1c-9.9 -Accuchecks, ISS, scheduled insulin, hypoglycemia precautions -consistent carb diet as tolerated Status: Chronic (9) Hypertensive urgency: -BP improved with resumption of oral antihypertensives -Close monitoring of vital signs -continue oral antihypertensives, titrate as needed for optimal blood pressure control the suspect that blood pressure is a challenge to control given multiple antihypertensive medications on med list Status: Resolved Additional A&P Information -Hypothyroidism, TSH wnl, continue levothyroxine -hx of gout, on allopurinol -Anemia of chronic disease, baseline hemoglobin appears to be around 10, continue to monitor H&H, stable so far -KAITLYNN; on BiPAP qhs; resume here. Last sleep study done in 09/2012 showed continued apnea with CPAP use and titration, hence switch to BiPAP -consistent carb diet as tolerated -GI ppx with PPI -DVT ppx not needed as on Eliquis -PT evaluation appreciated -Dispo: home -Code status: FULL code -Will need new home oxygen evaluation orders to renew per insurance. He would also need a new order for BiPAP prior to d/c Attestations Medical Necessity Statement*: Patient requires hospitalization for continued treatment of COVID-19 infection with ARDS, just completed 5-day course of antiviral treatment, remains on IV steroids and IV antibiotics, needs continued monitoring of respiratory and hemodynamic status. Time Spent in Patient Care: 16 - 35 minutes (>than 50% of time spent in counselling and/or direct pt care on unit) . Coding Level of Care Code Acute [employer] Maker for [facility] 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 Diagnoses COVID-19 virus infection U07.1 Acute respiratory distress syndrome (ARDS) due to COVID-19 virus U07.1; J80 Dehydration E86.0 Congestive 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 I11.0 Chronic kidney disease (CKD) N18.32 Chronic kidney disease stage: stage 3 (moderate) Chronic kidney disease stage 3 subtype: stage 3b (GFR 30-44) Dyslipidemia E78.5 ASHD (arteriosclerotic heart disease) I25.10 Diabetes 1.5, managed as type 2 E13.9 Hypertensive urgency I16.0
[2020-01-30] MEDS: hyDRALAzine 50 mg Tablet 100 MG PO ×2 (16:08→21:34)
[2020-01-30 16:54] LABS: Glucose Point of Care 313 mg/dL (70-110)
[2020-01-30] MEDS: FUROsemide 40 mg Tablet 60 MG PO (18:24)
[2020-01-30] MEDS: terazosin 5 mg Capsule 10 MG PO (18:26)
[2020-01-30] MEDS: metoprolol tartrate 50 mg Tablet PO (18:26)
[2020-01-30] MEDS: labetalol 200 mg Tablet 100 MG PO (18:26)
--- NOTE | 2020-01-30 19:24 | PC.NURSE ---
PT BLOOD PRESSURE AT BEGINNING OF SHIFT WAS LOW SO BLOOD PRESSURE MEDICATIONS WERE HELD PER DR TERRELL. PT BLOOD PRESSURE INCREASED THE DAY WENT. PT HAD 3 BM THIS SHIFT, NO COMPLAINTS OF PAIN OR DISCOMFORT. PT AMBULATED WITH NO ISSUES.
[2020-01-30 20:53] LABS: Glucose Point of Care 377 mg/dL (70-110)
[2020-01-30] MEDS: insulin glargine 100 units/1 mL 72 UNIT SUBCUT (21:34)
[2020-01-30] MEDS: atorvastatin 40 mg Tablet PO (21:36)
[2020-01-31] VITALS (25 sets, daily range): BP systolic 118–168; BP diastolic 61–84; PULSE 64–81; RESP 7–24; TEMP 36.6–36.9; O2SAT 90–95
[2020-01-31 05:40] LABS: Hematocrit 30.5 % (42.0-52.0); Hemoglobin 9.7 g/dL (11.7-16.6); Mean Corpuscular HGB Conc 31.8 g/dL (30.0-36.0); Mean Corpuscular Hemoglobin 27.6 pg (28.0-34.0); Mean Corpuscular Volume 86.6 fL (80-94); Mean Platelet Volume 11.1 fL (7.4-10.4); Platelet Count 278 10^3/cmm (130-400); Red Blood Count 3.52 10^6/uL (4.1-5.3); Red Cell Distribution Width 15.4 % (12.1-15.1); White Blood Count 15.5 10^3/uL (4.0-10.0)
[2020-01-31 06:19] LABS: Anion Gap 19.6 (5-19); Calcium 8.9 mg/dL (8.5-10.5); Carbon Dioxide 21 mmol/L (22-29); Chloride 99 mmol/L (98-107); Glomerular Filtration Rate 15.4 mL/min (90-130); Glucose 254 mg/dL (65-115); Potassium 3.6 mmol/L (3.5-5.1); Sodium 136 mmol/L (136-145)
[2020-01-31 06:30] LABS: NT Pro B Type Natriuretic Pept 449 pg/mL (0-125)
[2020-01-31 06:38] LABS: Osmolality Calculated 339 mOsm/kg (285-295)
[2020-01-31 06:39] LABS: Blood Urea Nitrogen 149 mg/dL (8-23)
[2020-01-31] MEDS: isosorbide mononitrate ER 60 mg Tablet PO (06:41)
[2020-01-31] MEDS: pantoprazole DR 40 mg Tablet PO (06:41)
[2020-01-31] MEDS: insulin glargine 100 units/1 mL 62 UNIT SUBCUT (06:41)
[2020-01-31 06:45] LABS: Ferritin 3467 ng/mL (30-400); Lactate Dehydrogenase 334 U/L (135-225)
[2020-01-31 07:28] LABS: Glucose Point of Care 217 mg/dL (70-110)
[2020-01-31 07:41] LABS: Slide Review Slide Review Perform
[2020-01-31 07:44] LABS: Absolute Segmented Neutrophil 13.5 10/cmm (1.6-7.1); Band Neutrophils Absolute 0.5 10^3/cmm (0.0-1.2); Lymphocytes 5 %; Monocytes Absolute 0.3 10^3/cmm (0.1-0.6); Segmented Neutrophils 87 %; Total Cells Counted 100 (0-100)
[2020-01-31 07:45] LABS: Platelet Estimate Normal (Normal)
[2020-01-31 08:10] LABS: Fibrinogen 550 mg/dL (174-498)
[2020-01-31] MEDS: ascorbic acid 500 mg Tablet PO ×2 (09:18→17:11)
[2020-01-31] MEDS: metoprolol tartrate 50 mg Tablet PO ×2 (09:18→17:11)
[2020-01-31] MEDS: FUROsemide 40 mg Tablet 60 MG PO (09:18)
[2020-01-31] MEDS: aspirin 81 mg EC Tablet PO (09:18)
[2020-01-31] MEDS: apixaban 5 mg Tablet PO ×2 (09:19→17:11)
[2020-01-31] MEDS: dexamethasone 4 mg/mL INJ 6 MG IVP (09:19)
[2020-01-31] MEDS: zinc gluconate 50 mg Tablet PO (09:19)
[2020-01-31] MEDS: azithromycin 250 mg Tablet 500 MG PO (09:20)
[2020-01-31] MEDS: calcitriol 0.25 mcg Capsule 1 MCG PO (09:20)
[2020-01-31] MEDS: labetalol 200 mg Tablet 100 MG PO ×2 (09:21→17:07)
[2020-01-31] MEDS: hyDRALAzine 50 mg Tablet 100 MG PO ×3 (09:21→20:50)
[2020-01-31] MEDS: escitalopram 10 mg Tablet PO (09:22)
[2020-01-31] MEDS: allopurinol 300 mg Tablet PO (09:22)
[2020-01-31] MEDS: cetirizine 10 mg Tablet PO (09:22)
[2020-01-31] MEDS: levothyroxine 25 mcg Tablet PO (09:23)
[2020-01-31] MEDS: terazosin 5 mg Capsule 10 MG PO ×2 (09:25→17:08)
[2020-01-31 11:06] LABS: Glucose Point of Care 168 mg/dL (70-110)
--- NOTE | 2020-01-31 14:35 | P.PN_ITS ---
Subjective Subjective: Interval history: Eliazar reports he is feeling okay. No particular complaints. Medications: Reviewed: Yes Vitals/I&O/Wt Last Vital Signs Temp 98.5 F 01/31/20 11:38 Pulse 64 01/31/20 14:00 Resp 18 01/31/20 14:00 BP 142/71 01/31/20 14:00 Pulse Ox 92 01/31/20 14:00 01/30/20 01/31/20 01/31/20 22:59 06:59 14:59 Intake Total 331 / 571 360 / 931 360 / 360 Output Total 600 / 600 850 / 1450 275 / 275 Balance -269 / -29 -490 / -519 85 / 85 Physical Exam Narrative: EXAM NARRATIVE: General exam no apparent distress. Conversant. On baseline oxygen Cardiovascular regular rate and rhythm without murmur Lungs clear no wheezing or crackles Abdomen is soft with positive bowel sounds Extremities no cyanosis clubbing or edema Data : 01/31/20 04:15 01/31/20 04:15 Micro: Microbiology 01/29/20 17:25 Blood Culture - Preliminary Blood Gram positive cocci 01/29/20 17:55 Blood Culture - Preliminary Blood NEGATIVE TO DATE 01/25/20 20:50 Blood Culture - Final Blood Coagulase negativ staphylococc 01/25/20 10:43 Blood Culture - Final Blood Staphylococcus aureus A&P Assessment and plan (1) COVID-19 virus infection: Currently on baseline oxygen requirement Continue dexamethasone He has completed a course of antiviral, remdesivir Continue pulmonary toilet MRSA PCR negative Multiple blood cultures, were drawn demonstrating 1/3 bottles positive. Some showing different organisms. Likely contaminant Eliquis for DVT prophylaxis Empirically placed on azithromycin Status: Acute (2) Acute respiratory distress syndrome (ARDS) due to COVID-19 virus: See notations above Status: Acute (3) Dehydration: Initiate IV fluids Status: Resolved (4) Congestive 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: Currently well compensated Previous EF February 2000 19 65% Status: Chronic (5) Chronic kidney disease (CKD): With acute renal failure. Worsening over the last several days Add saline 50 cc an hour Avoid nephrotoxins Check renal ultrasound Hold Lasix Status: Chronic Qualifiers: Chronic kidney disease stage: stage 3 (moderate) Chronic kidney disease stage 3 subtype: stage 3b (GFR 30-44) Qualified Code(s): N18.32 - Chronic kidney disease, stage 3b (6) Dyslipidemia: Continue statin Status: Chronic (7) ASHD (arteriosclerotic heart disease): Continue aspirin, Imdur. Holding Plavix with addition of Eliquis. Status: Chronic (8) Diabetes 1.5, managed as type 2: Lantus Sliding scale insulin. Status: Chronic (9) Hypertensive urgency: Continue hydralazine, labetalol Status: Resolved Additional A&P Information Hypothyroidism. Continue levothyroxine History of gout. Continue allopurinol Anemia, stable currently History of obstructive sleep apnea. BiPAP as needed Full code Eliquis will suffice for DVT prophylaxis. Attestations Medical Necessity Statement*: Needs continued hospitalization, for close follow-up of renal failure in this patient with Covid 19 pneumonia. Coding Level of Care Code Acute Scientific Associate for [facility] Fwd Diagnoses COVID-19 virus infection U07.1 Acute respiratory distress syndrome (ARDS) due to COVID-19 virus U07.1; J80 Dehydration E86.0 Congestive 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 I11.0 Chronic kidney disease (CKD) N18.32 Chronic kidney disease stage: stage 3 (moderate) Chronic kidney disease stage 3 subtype: stage 3b (GFR 30-44) Dyslipidemia E78.5 ASHD (arteriosclerotic heart disease) I25.10 Diabetes 1.5, managed as type 2 E13.9 Hypertensive urgency I16.0
[2020-01-31] MEDS: sodium chloride 0.9% 1,000 ML 50 ML IV (14:57)
[2020-01-31 16:35] LABS: Glucose Point of Care 168 mg/dL (70-110)
[2020-01-31 20:40] LABS: Glucose Point of Care 214 mg/dL (70-110)
[2020-01-31] MEDS: atorvastatin 40 mg Tablet PO (20:50)
[2020-01-31] MEDS: insulin glargine 100 units/1 mL 72 UNIT SUBCUT (21:01)
[2020-02-01] VITALS (15 sets, daily range): BP systolic 104–146; BP diastolic 54–75; PULSE 62–85; RESP 13–22; TEMP 36.4–36.8; O2SAT 92–95
[2020-02-01 04:16] LABS: Basophils % 0.1 %; Hematocrit 28.4 % (42.0-52.0); Hemoglobin 8.7 g/dL (11.7-16.6); Lymphocytes # 0.5 10^3/uL (0.8-4.8); Lymphocytes % 3.4 %; Mean Corpuscular HGB Conc 30.6 g/dL (30.0-36.0); Mean Corpuscular Hemoglobin 27.3 pg (28.0-34.0); Monocytes # 0.8 10^3/uL (0.2-0.9); Monocytes % 4.9 %; Neutrophils # 13.12 10^3/uL (1.8-7.7); Neutrophils % 84.3 %; Nucleated Red Blood Cells % 0 %; Platelet Count 253 10^3/cmm (130-400); Red Blood Count 3.19 10^6/uL (4.1-5.3); Red Cell Distribution Width 15.4 % (12.1-15.1); White Blood Count 15.6 10^3/uL (4.0-10.0)
[2020-02-01 04:47] LABS: Alanine Aminotransferase 40 U/L (0-41); Albumin Level 2.8 g/dL (3.5-5.2); Alkaline Phosphatase 110 IU/L (40-130); Anion Gap 17.3 (5-19); Aspartate Amino Transferase 23 U/L (0-40); Calcium 7.8 mg/dL (8.5-10.5); Carbon Dioxide 20 mmol/L (22-29); Chloride 107 mmol/L (98-107); Globulin 2.6 g/dL (1.3-4.6); Glomerular Filtration Rate 16.9 mL/min (90-130); Glucose 126 mg/dL (65-115); Potassium 3.3 mmol/L (3.5-5.1); Sodium 141 mmol/L (136-145); Total Bilirubin 0.3 mg/dL (0.15-1.2); Total Protein 5.4 g/dL (6.6-8.7)
--- NOTE | 2020-02-01 04:57 | PC.NURSE ---
PT RESTING IN BED. DENIES PAIN AT THIS TIME. PT HAS 0 C/O. WILL CONTINUE TO MONITOR.
--- NOTE | 2020-02-01 05:00 | US_ITS ---
WS: [id number] RENAL ULTRASOUND URINARY BLADDER ULTRASOUND HISTORY: renal failure COMPARISON: None available. TECHNIQUE: 2-D and color Doppler imaging of the kidney submitted. Right kidney: 11.3 cm x 6.1 cm x 5.8 cm. Poorly visualized kidney due to body habitus. Increased echogenicity within the kidney but no hydrone phrosis. Mass is not identified but may be obscured. Left kidney: 10.4 cm x 5.3 cm x 5.0 cm. Mild increased echogenicity throughout the kidney. No mass identified. Aorta: Normal. Urinary Bladder: Normal distention. No intraluminal filling defect. US/US renal BI* [id number] IMPRESSION: 1. No hydronephrosis. 2. Mild medical renal disease. 3. Negative urinary bladder.
[2020-02-01] MEDS: levothyroxine 25 mcg Tablet PO (05:18)
[2020-02-01] MEDS: isosorbide mononitrate ER 60 mg Tablet PO (05:18)
[2020-02-01] MEDS: pantoprazole DR 40 mg Tablet PO (05:18)
[2020-02-01] MEDS: insulin glargine 100 units/1 mL 62 UNIT SUBCUT (05:19)
[2020-02-01 06:22] LABS: Glucose Point of Care 113 mg/dL (70-110)
[2020-02-01 06:25] LABS: Blood Urea Nitrogen 146 mg/dL (8-23); Osmolality Calculated 341 mOsm/kg (285-295)
[2020-02-01 07:04] LABS: Slide Review Slide Review Perform
[2020-02-01] MEDS: metoprolol tartrate 50 mg Tablet PO (09:08)
[2020-02-01] MEDS: labetalol 200 mg Tablet 100 MG PO (09:08)
[2020-02-01] MEDS: apixaban 5 mg Tablet PO (09:08)
[2020-02-01] MEDS: zinc gluconate 50 mg Tablet PO (09:08)
[2020-02-01] MEDS: aspirin 81 mg EC Tablet PO (09:08)
[2020-02-01] MEDS: dexamethasone 4 mg/mL INJ 6 MG IVP (09:08)
[2020-02-01] MEDS: azithromycin 250 mg Tablet 500 MG PO (09:09)
[2020-02-01] MEDS: cetirizine 10 mg Tablet PO (09:09)
[2020-02-01] MEDS: hyDRALAzine 50 mg Tablet 100 MG PO (09:09)
[2020-02-01] MEDS: terazosin 5 mg Capsule 10 MG PO (09:09)
[2020-02-01] MEDS: allopurinol 300 mg Tablet PO (09:09)
[2020-02-01] MEDS: escitalopram 10 mg Tablet PO (09:09)
[2020-02-01] MEDS: ascorbic acid 500 mg Tablet PO (09:19)
[2020-02-01] MEDS: sodium chloride 0.9% 1,000 ML 50 ML IV (10:48)
[2020-02-01 11:14] LABS: Glucose Point of Care 142 mg/dL (70-110)
[2020-02-01 11:48] LABS: Add Urine Culture? No; Bacteria Urine TRACE /hpf; Bilirubin Urine Neg (Negative); Blood Urine Neg (Negative); Glucose Urine UA Norm (Normal); Ketones Urine Negative (Negative); Leukocyte Esterase Urine Negative (Negative); Nitrate Urine Negative (Negative); Protein Urine Neg (Negative); Specific Gravity, Urine 1.005 (1.005-1.030); Squamous Epithelial Cell Urine 0-4 /hpf (0-5); Urine Appearance Clear (CLEAR); Urine Color Yellow (Yellow); Urobilinogen Urine Norm (Negative); WBC Urine 0-4 /hpf (0-5); pH Urine 5 (5-7)
[2020-02-01] MEDS: potassium chloride ER 10 mEq Tablet 40 MEQ PO (12:19)
--- NOTE | 2020-02-01 13:46 | PM.DCS ---
Discharge Providers Date of Admission: 01/25/20 14:25 Date of Discharge: February 01, 2020 Attending Provider at Admission: Nell Bryan MD Attending Provider at Discharge: Dionte Haddad MD Primary Care Provider: LEÓN SEGOVIA MD Diagnoses at Discharge Discharge Diagnosis (1) COVID-19 virus infection: Status: Acute Problem details: Currently on baseline oxygen requirement (2) Acute respiratory distress syndrome (ARDS) due to COVID-19 virus: Status: Acute Problem details: Completed course of antiviral, dexamethasone (3) Dehydration: Status: Resolved (4) Congestive 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: Status: Chronic (5) Chronic kidney disease (CKD): Status: Chronic Qualifiers: Chronic kidney disease stage: stage 3 (moderate) Chronic kidney disease stage 3 subtype: stage 3b (GFR 30-44) Qualified Code(s): N18.32 - Chronic kidney disease, stage 3b (6) Dyslipidemia: Status: Chronic (7) ASHD (arteriosclerotic heart disease): Status: Chronic (8) Diabetes 1.5, managed as type 2: Status: Chronic (9) Hypertensive urgency: Status: Resolved Reason for Visit Reason for Visit: COUGH/ABD PAIN/NO APPETITE/FEVER Hospital Course Hospital Course: Eliazar is a 69-year-old white male with chronic kidney disease that presented on January 24 with Covid 19 pneumonia. He was requiring an increased amount of oxygen compared to his baseline, and appeared dehydrated. He was placed on Eliquis for DVT prophylaxis, and dexamethasone and remdesivir initiated. Other home medicines with the exception of Plavix were continued. During his hospital stay he gradually improved. He was able to wean down to his baseline oxygen requirement. He completed his course of antiviral and steroid while in the hospital. On January 30 I noted that his renal function was worse than baseline so Lasix was held. On January 31 his creatinine had improved to 3.6, renal ultrasound had been done demonstrating no obstruction, and the patient reported that he would like to go home. I discussed with him he still had significant kidney dysfunction with a BUN over 100 but he reported he would be more comfortable at home, and follow-up closely with his primary care provider. Therefore he was discharged home with home health with instruction of the BMP in 2 days. He will not be discharged on Lasix. Depending on blood test in 2 days this could be reconsidered. He will not need antiviral, or steroid upon discharge. Other studies on admission demonstrated a chest CT demonstrating changes consistent with Covid 19 pneumonia. He was alert and oriented on discharge. I reviewed the discharge plan and my concern regarding the patient's renal function with his prior to discharge and they report they will follow-up and have renal function retested. Physical Exam Narrative: EXAM NARRATIVE: Apparent distress Cardiovascular regular rate and rhythm without murmur Lungs clear Abdomen is soft with positive bowel sounds Extremities no cyanosis clubbing or edema Discharge Data Data Completed and Pending: Completed Studies During Hospitalization Category Date Time Status CT chest wo con 7 1250 Routine Cat Scan 01/26/20 11:17 Completed XR chest 1V blake ble [id number] Routine Exams 01/27/20 06:00 Completed XR chest 1V blake ble [id number] Routine Exams 01/30/20 06:00 Completed XR chest 1V blake ble [id number] Stat Exams 01/25/20 10:08 Completed US renal BI* [id number] Routine Ultrasound 02/01/20 05:00 Completed Pending at discharge Category Date Time Status Blood Culture Sta t Lab 01/29/20 17:55 Results Labs from last 24 hours 02/01/20 02/01/20 02/01/20 11:01 06:09 03:25 WBC RBC Hgb Hct MCV MCH MCHC RDW Plt Count MPV Neut % (Auto) Lymph % (Auto) Craig % (Auto) Eos % (Auto) Baso % (Auto) Neut # (Auto) Lymph # (Auto) Craig # (Auto) Eos # (Auto) Baso # (Auto) Nucleated RBC % (a uto) Nucleated RBCs # Sodium 141 Potassium 3.3 L Chloride 107 Carbon Dioxide 20 L Anion Gap 17.3 BUN 146 H* Creatinine 3.6 H GFR Calculation 16.9 L Glucose 126 H POC Glucose 142 113 Calculated Osmolal ity 341 H Calcium 7.8 L Total Bilirubin 0.3 AST 23 ALT 40 Alkaline Phosphata se 110 Total Protein 5.4 L Albumin 2.8 L Globulin 2.6 Urine Color Urine Appearance Urine pH Ur Specific Gravit y Urine Protein Urine Glucose (UA) Urine Ketones Urine Blood Urine Nitrate Urine Bilirubin Urine Urobilinogen Ur Leukocyte Amelia ase Urine RBC Urine WBC Ur Squamous Epith Cells Amorphous Sediment Urine Bacteria 02/01/20 01/31/20 01/31/20 03:25 20:35 16:25 WBC 15.6 H RBC 3.19 L Hgb 8.7 L Hct 28.4 L MCV 89.0 MCH 27.3 L MCHC 30.6 RDW 15.4 H Plt Count 253 MPV 11.0 H Neut % (Auto) 84.3 Lymph % (Auto) 3.4 Craig % (Auto) 4.9 Eos % (Auto) 0.0 Baso % (Auto) 0.1 Neut # (Auto) 13.12 H Lymph # (Auto) 0.5 L Craig # (Auto) 0.8 Eos # (Auto) 0.0 Baso # (Auto) 0.0 Nucleated RBC % (a uto) 0 Nucleated RBCs # 0.0 Sodium Potassium Chloride Carbon Dioxide Anion Gap BUN Creatinine GFR Calculation Glucose POC Glucose 214 168 Calculated Osmolal ity Calcium Total Bilirubin AST ALT Alkaline Phosphata se Total Protein Albumin Globulin Urine Color Urine Appearance Urine pH Ur Specific Gravit y Urine Protein Urine Glucose (UA) Urine Ketones Urine Blood Urine Nitrate Urine Bilirubin Urine Urobilinogen Ur Leukocyte Amelia ase Urine RBC Urine WBC Ur Squamous Epith Cells Amorphous Sediment Urine Bacteria 01/31/20 10:45 WBC RBC Hgb Hct MCV MCH MCHC RDW Plt Count MPV Neut % (Auto) Lymph % (Auto) Craig % (Auto) Eos % (Auto) Baso % (Auto) Neut # (Auto) Lymph # (Auto) Craig # (Auto) Eos # (Auto) Baso # (Auto) Nucleated RBC % (a uto) Nucleated RBCs # Sodium Potassium Chloride Carbon Dioxide Anion Gap BUN Creatinine GFR Calculation Glucose POC Glucose Calculated Osmolal ity Calcium Total Bilirubin AST ALT Alkaline Phosphata se Total Protein Albumin Globulin Urine Color Yellow Urine Appearance Clear Urine pH 5 Ur Specific Gravit y 1.005 Urine Protein Neg Urine Glucose (UA) Norm Urine Ketones Negative Urine Blood Neg Urine Nitrate Negative Urine Bilirubin Neg Urine Urobilinogen Norm Ur Leukocyte Amelia ase Negative Urine RBC None Urine WBC 0-4 H Ur Squamous Epith Cells 0-4 H Amorphous Sediment Not Reportable Urine Bacteria Trace Vitals: Last Vital Signs Temp 97.8 F 02/01/20 12:00 Pulse 85 02/01/20 13:00 Resp 20 H 02/01/20 13:00 BP 146/75 02/01/20 13:00 Pulse Ox 92 02/01/20 13:00 Discharge Plan Discharge Patient Disposition: Home Health Service Condition: Stable Prescriptions: New albuterol sulfate [Ventolin HFA] 90 mcg/actuation Hfa Aerosol Inhaler 2 puff inhalation Q4H.RESPIRATORY PRN (Reason: Shortness Of Breath) Qty: 1 RF: 0 Continued labetalol 100 mg tablet 100 mg PO BID RF: 0 calcitriol 0.5 mcg capsule 1 mcg PO .COMPLEX RF: 0 escitalopram oxalate 10 mg tablet 10 mg PO DAILY RF: 0 isosorbide mononitrate 60 mg tablet extended release 24 hr 60 mg PO QAM RF: 0 hydralazine 100 mg tablet 100 mg PO TID RF: 0 levothyroxine 25 mcg capsule 25 mcg PO DAILY RF: 0 pantoprazole 40 mg tablet,delayed release (DR/EC) 40 mg PO QAM RF: 0 terazosin 10 mg capsule 10 mg PO BID RF: 0 pravastatin 40 mg tablet 40 mg PO QPM RF: 0 aspirin [Adult Low Dose Aspirin] 81 mg tablet,delayed release (DR/EC) 81 mg PO DAILY RF: 0 cetirizine [24Hour Allergy] 10 mg tablet 10 mg PO DAILY RF: 0 nitroglycerin [Nitrostat] 0.4 mg tablet, sublingual 0.4 mg SUBLINGUAL Q5M PRN (Reason: Chest Pain) RF: 0 acetaminophen [Tylenol Extra Strength] 500 mg tablet 1,000 mg PO PRN RF: 0 allopurinol 300 mg tablet 300 mg PO DAILY RF: 0 metoprolol tartrate 100 mg Tablet 50 mg PO BID RF: 0 Plavix 75 mg Tablet 75 mg PO DAILY RF: 0 insulin detemir U-100 100 unit/mL (3 mL) Insulin Pen See Rx Instructions .ROUTE .COMPLEX RF: 0 Discontinued furosemide 40 mg tablet 80 mg PO BID RF: 0 Discharge Orders: Discharge Order (Routine); Ordered 02/01/20 Ordered By: Dionte Haddad Referrals: LEÓN SEGOVIA MD [Primary Care Provider] - 1-3 days Discharge Diet: Diabetic Discharge Activity: Increase activity as tolerated Activity Restrictions/Additional Instructions: Home oxygen evaluation prior to discharge to determine if 3 L of oxygen is appropriate that he was using at home prior to COVID diagnosis. Ensure that order for BiPAP is obtained per patient request Follow-up with nephrology in 1 to 2 weeks Hold your Lasix, until this is restarted by your primary care provider or learning and development assistant. A BMP will need to be done in 2 days for follow-up of your renal function. 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
--- NOTE | 2020-02-01 15:50 | PC.SOCIAL ---
Pg 2 IMM. Explained to pt's via phone Pg 2 IMM. No questions voiced. Signed, dated, & timed copy for chart.
== END 2020-02-01 14:57 | disposition home health service (06) | DRG 177 ==
LOC: ER 10:05 → ICU 17:04
PROVIDERS: Family Medicine; Admitting Provider Family Medicine; PCP Family Medicine; Visit Provider Internal Medicine
DX: U07.1 COVID-19 (principal); J80 Acute respiratory distress syndrome; J12.89 Other viral pneumonia; E87.1 Hypo-osmolality and hyponatremia; I13.0 Hypertensive heart and chronic kidney disease with heart failure and stage 1 through stage 4 chronic kidney disease, or unspecified chronic kidney disease; I50.32 Chronic diastolic (congestive) heart failure; N17.9 Acute kidney failure, unspecified; Z99.81 Dependence on supplemental oxygen; E86.0 Dehydration; E11.22 Type 2 diabetes mellitus with diabetic chronic kidney disease; N18.32 Chronic kidney disease, stage 3b; E11.42 Type 2 diabetes mellitus with diabetic polyneuropathy; D63.1 Anemia in chronic kidney disease; I25.10 Atherosclerotic heart disease of native coronary artery without angina pectoris; Z95.5 Presence of coronary angioplasty implant and graft; I65.23 Occlusion and stenosis of bilateral carotid arteries; G89.29 Other chronic pain; M54.9 Dorsalgia, unspecified; Z86.73 Personal history of transient ischemic attack (TIA), and cerebral infarction without residual deficits; E78.5 Hyperlipidemia, unspecified; I25.2 Old myocardial infarction; G47.33 Obstructive sleep apnea (adult) (pediatric); Z87.891 Personal history of nicotine dependence; E03.9 Hypothyroidism, unspecified; I16.0 Hypertensive urgency; Z79.4 Long term (current) use of insulin; Z79.82 Long term (current) use of aspirin; M10.9 Gout, unspecified
CPT/HCPCS: 12345; 36415; 36416; 36600; 71045; 71250; 76770; 76857; 80048; 80053; 81001; 82550; 82728; 82803; 82962; 83036; 83605; 83615; 83735; 83880; 84145; 84443; 85007; 85025; 85378; 85384; 86140; 86403; 87040; 87070; 87077; 87186; 87205; 87426; 87449; 87641; 87804; 93005; 94660; 94664; 96372; 96375; 97110; 97161; 99283; J1100; J1815 ×2; J1940; J7030; Q0144

== ENCOUNTER 2020-02-03 07:11 | Inpatient (IN) | payer MEDICARE, OTHER, SELFPAY ==
[2020-02-03] VITALS (39 sets, daily range): BP systolic 139–175; BP diastolic 63–95; PULSE 58–78; RESP 7–34; TEMP 34.4–36.6; O2SAT 84–98; BMI 33.9
--- NOTE | 2020-02-03 07:19 | CTR_ITS ---
PROCEDURE INFORMATION: Exam: CT Head Without Contrast Exam date and time: 02/03/2020 7:22 AM Age: 69 years old Clinical indication: Other: Found down; Additional info: Ams- found down TECHNIQUE: Imaging protocol: Computed tomography of the head without contrast. Radiation optimization: All CT scans at this facility use at least one of these dose optimization techniques: automated exposure control; mA and/or kV adjustment per patient size (includes targeted exams where dose is matched to clinical indication); or iterative reconstruction. Other technique: STROKE PROTOCOL was implemented. COMPARISON: CT head wo con* [id number] 09/06/2017 10:36 AM RADIATION DOSE METRICS: Total DLP (mGy-cm): 1813.48 FINDINGS: Brain: Symmetric prominence of the cortical sulci. Small-vessel ischemic change including multiple small lacunar infarcts. No acute cortical infarct, mass effect, or intracranial hemorrhage. No acute post-traumatic brain injury. Cerebral ventricles: Normal configuration of the ventricles. Bones/joints: No acute calvarial injury. Paranasal sinuses: Maxillary sinus mucoperiosteal disease. 14 mm polypoid lesion in the left sphenoid sinus. Mastoid air cells: No mastoid effusion. Soft tissues: Unremarkable soft tissues. MTDD
--- NOTE | 2020-02-03 07:25 | ED_ITS ---
HPI - Altered Mental Status General: Chief Complaint: Neuro Symptoms/Deficit Stated Complaint: AMS/ LOW BLOOD SUGAR Time Seen by Provider: 02/03/20 07:19 History of Present Illness: HPI narrative: 69-year-old male resents to the ER via EMS with altered mental status he was found hypoglycemic with a blood sugar in the low 50s his last known well was around 9:00 last night. Patient was recently hospitalized here on 01 24 and then discharged on 1012 for Covid pneumonitis. He is comorbidities of anemia arteriosclerotic heart disease coronary artery stenosis chronic kidney disease congestive heart failure diabetes mellitus essential hypertension obstructive sleep apnea. No family is available at this time. There is no reports of particular problems last night. Patient is nonresponsive except to painful stimuli complaint: altered mental status and decreased responsiveness Onset (ago): hour(s) Severity: severe Consistency of symptoms: Getting Worse Associated symptoms: Reports visual hallucinations Treatments prior to arrival: glucose Review of Systems General: Reports: ROS unobtainable due to mental status Psych: Reports: visual hallucinations [facility] ED PFSH: Medical History (Updated 02/04/20 @ 06:31 by Parish White DO) Anemia ASHD (arteriosclerotic heart disease) Carotid stenosis, bilateral Chronic back pain Chronic kidney disease (CKD) Congestive 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 COVID-19 virus infection Currently on baseline oxygen requirement CVA (cerebral vascular accident) Diabetes 1.5, managed as type 2 Diabetic neuropathy Dyslipidemia Edema Essential hypertension Myocardial infarction KAITLYNN (obstructive sleep apnea) Surgical History Previous back surgery S/P angioplasty with stent S/P cataract extraction Family History Mother CAD (coronary artery disease) Stroke Sister Hypertension Social History Smoking and tobacco status: former smoker Alcohol intake: never Household members: spouse Marital status: service: Yes branch: [employer] Current occupational status: employed Current gender identity: Male Physical Exam HENMT: COMMON NORMALS: normocephalic, atraumatic and hearing grossly normal bilaterally HEAD & SCALP: normocephalic and atraumatic Eye: COMMON NORMALS: Equal, round and reactive pupils present, EOMs intact bilaterally, conjunctivae normal and no scleral icterus CONJUNCTIVA: Yes conjunctivae normal PUPIL: Yes Equal, round and reactive pupils present Neck/C-Spine: COMMON NORMALS: full ROM, no lymphadenopathy, supple and no JVD Resp: AUSCULTATION: rhonchi and wheezes Cardio: COMMON NORMALS: no JVD, regular rate, regular rhythm and No murmurs present (Cardio) RATE: regular rate RHYTHM: regular rhythm GI: COMMON NORMALS: Soft to palpation and No hepatosplenomegaly present AUSCULTATION: Yes normoactive bowel sounds PALPATION: Yes Soft to palpation, No Tenderness to palpation present (GI), No Guarding due to palpation present (GI) and Yes No hepatosplenomegaly present Extremity: COMMON NORMALS: normal to inspection, capillary refill normal, no clubbing, cyanosis or edema, no calf tenderness and no pedal edema Skin: COMMON NORMALS: no rashes or lesions noted GENERAL SKIN EXAM: no rashes or lesions noted Course Vital Signs: Vital signs: Vital Signs Temperature 98.7 F 02/04/20 04:00 Pulse Rate 75 02/04/20 04:00 Respiratory Rate 18 02/04/20 04:00 Blood Pressure 182/89 02/04/20 04:00 Pulse Oximetry 95 02/04/20 04:00 MDM - Altered Mental Status MDM Narrative: Medical decision making narrative: Patient had been in the VQ here and had been discharged. He was hypoglycemic does see he responded to glucose but did not wake up he required high flow oxygen will give him another amp of D50 and IV D10. His blood sugar increased then decreased again once we cut back on the D10 and then restarted the D10 and it remained stable and he began to wake up and is much more alert. He was able answer questions. He reported being extremely short of breath and weak and was not even able to sit up for exam. His BUN is significantly elevated and he has his chronic slight worsening of his chronic kidney injury. Discussed with Dr. Melendez who had seen the patient in the MICU ultimately decided admit patient to the floor for blood sugar control oxygen support further adjustment of medications as well as maximizing his medications to improve his renal function. Lab Data: Labs: Lab Results 02/03/20 02/03/20 02/03/20 Range/Units 07:28 07:29 07:44 WBC 14.1 H (4.0-10.0) 10^3/ uL RBC 3.68 L (4.1-5.3) 10^6/u L Hgb 10.0 L (11.7-16.6) g/dL Hct 32.5 L (42.0-52.0) % MCV 88.3 (80-94) fL MCH 27.2 L (28.0-34.0) pg MCHC 30.8 (30.0-36.0) g/dL RDW 15.9 H (12.1-15.1) % Plt Count 247 (130-400) 10^3/c mm MPV 10.4 (7.4-10.4) fL Neut % (Auto) 82.2 % Lymph % (Auto) 3.2 % Hamblen % (Auto) 8.3 % Eos % (Auto) 0.6 % Baso % (Auto) 0.2 % Neut # (Auto) 11.57 H (1.8-7.7) 10^3/u L Lymph # (Auto) 0.5 L (0.8-4.8) 10^3/u L Hamblen # (Auto) 1.2 H (0.2-0.9) 10^3/u L Eos # (Auto) 0.1 (0.0-0.8) 10^3/u L Baso # (Auto) 0.0 (0.0-0.1) 10^3/u L Nucleated RBC % (a uto) 0 % Nucleated RBCs # 0.0 /100WBC PT (12.1-14.9) SECO NDS INR (0.8-1.2) APTT (23.9-36.7) SECO NDS Fibrinogen (174-498) mg/dL D-Dimer (0-0.59) ug/mIFE U Specimen Type Arterial Sample Site Radial, right ABG pH 7.32 L (7.35-7.45) ABG pCO2 41.1 (35-45) mmHg ABG pO2 117.0 H (80.0-100.0) mmH g ABG HCO3 21.0 L (22-26) mmol/L ABG O2 Saturation ABG Base Excess -4.8 L (-2.0-2.0) mmol/ L Ganesh Test Pos A-a O2 Gradient (5-10) mmHg Hematocrit 32.7 L (42-52) % Hgb O2 Saturation (95-100) % Carboxyhemoglobin (0.4-20.1) %THgb Methemoglobin (0.4-1.5) % Total Hemoglobin (14-18) g/dL Ionized Calcium (1.1-1.4) mmol/L O2 Delivery Device Nc O2 Liters/Min 4.0 % FiO2 36.0 % Semiautomatic Taper Operator ID Cak Sodium (136-145) mmol/L Potassium (3.5-5.1) mmol/L Chloride (98-107) mmol/L Carbon Dioxide (22-29) mmol/L Anion Gap (5-19) BUN (8-23) mg/dL Creatinine (0.7-1.2) mg/dL GFR Calculation (90-130) mL/min Glucose (65-115) mg/dL POC Glucose 105 (70-110) mg/dL Estimat Average Gl ucose Hemoglobin A1c (4.0-6.0) % Calculated Osmolal ity (285-295) mOsm/k g Lactic Acid (0.5-2.2) mmol/L Calcium (8.5-10.5) mg/dL Ferritin (30-400) ng/mL Total Bilirubin (0.15-1.2) mg/dL AST (0-40) U/L ALT (0-41) U/L Alkaline Phosphata se (40-130) IU/L Lactate Dehydrogen ase (135-225) U/L Troponin T Baselin e (0-15) ng/L Troponin T 120 Min [place] (0-15) ng/L Delta Troponin T (0-10) ABS# C-Reactive Protein (0.0-4.9) mg/L Total Protein (6.6-8.7) g/dL Albumin (3.5-5.2) g/dL Globulin (1.3-4.6) g/dL Procalcitonin (0-0.5) ng/mL 02/03/20 02/03/20 02/03/20 Range/Units 07:44 07:44 07:44 WBC (4.0-10.0) 10^3/ uL RBC (4.1-5.3) 10^6/u L Hgb (11.7-16.6) g/dL Hct (42.0-52.0) % MCV (80-94) fL MCH (28.0-34.0) pg MCHC (30.0-36.0) g/dL RDW (12.1-15.1) % Plt Count (130-400) 10^3/c mm MPV (7.4-10.4) fL Neut % (Auto) % Lymph % (Auto) % Hamb[place] % (Auto) % Eos % (Auto) % Baso % (Auto) % Neut # (Auto) (1.8-7.7) 10^3/u L Lymph # (Auto) (0.8-4.8) 10^3/u L Hamblen # (Auto) (0.2-0.9) 10^3/u L Eos # (Auto) (0.0-0.8) 10^3/u L Baso # (Auto) (0.0-0.1) 10^3/u L Nucleated RBC % (a uto) % Nucleated RBCs # /100WBC PT (12.1-14.9) SECO NDS INR (0.8-1.2) APTT (23.9-36.7) SECO NDS Fibrinogen 496 (174-498) mg/dL D-Dimer 0.72 H (0-0.59) ug/mIFE U Specimen Type Sample Site ABG pH (7.35-7.45) ABG pCO2 (35-45) mmHg ABG pO2 (80.0-100.0) mmH g ABG HCO3 (22-26) mmol/L ABG O2 Saturation ABG Base Excess (-2.0-2.0) mmol/ L Ganesh Test A-a O2 Gradient (5-10) mmHg Hematocrit (42-52) % Hgb O2 Saturation (95-100) % Carboxyhemoglobin (0.4-20.1) %THgb Methemoglobin (0.4-1.5) % Total Hemoglobin (14-18) g/dL Ionized Calcium (1.1-1.4) mmol/L O2 Delivery Device O2 Liters/Min % FiO2 % Semiautomatic Taper Operator ID Sodium 141 (136-145) mmol/L Potassium 3.6 (3.5-5.1) mmol/L Chloride 106 (98-107) mmol/L Carbon Dioxide 20 L (22-29) mmol/L Anion Gap 18.6 (5-19) BUN 157 H* (8-23) mg/dL Creatinine 3.7 H (0.7-1.2) mg/dL GFR Calculation 16.4 L (90-130) mL/min Glucose 96 (65-115) mg/dL POC Glucose (70-110) mg/dL Estimat Average Gl ucose Hemoglobin A1c (4.0-6.0) % Calculated Osmolal ity 343 H (285-295) mOsm/k g Lactic Acid 1.2 (0.5-2.2) mmol/L Calcium 8.8 (8.5-10.5) mg/dL Ferritin > 2102 H (30-400) ng/mL Total Bilirubin 0.4 (0.15-1.2) mg/dL AST 22 (0-40) U/L ALT 39 (0-41) U/L Alkaline Phosphata se 137 H (40-130) IU/L Lactate Dehydrogen ase 353 H (135-225) U/L Troponin T Baselin e (0-15) ng/L Troponin T 120 Min [place] (0-15) ng/L Delta Troponin T (0-10) ABS# C-Reactive Protein 14.1 H (0.0-4.9) mg/L Total Protein 5.9 L (6.6-8.7) g/dL Albumin 3.4 L (3.5-5.2) g/dL Globulin 2.5 (1.3-4.6) g/dL Procalcitonin 0.17 (0-0.5) ng/mL 02/03/20 02/03/20 02/03/20 Range/Units 07:44 07:44 07:44 WBC (4.0-10.0) 10^3/ uL RBC (4.1-5.3) 10^6/u L Hgb (11.7-16.6) g/dL Hct (42.0-52.0) % MCV (80-94) fL MCH (28.0-34.0) pg MCHC (30.0-36.0) g/dL RDW (12.1-15.1) % Plt Count (130-400) 10^3/c mm MPV (7.4-10.4) fL Neut % (Auto) % Lymph % (Auto) % [place] % (Auto) % Eos % (Auto) % Baso % (Auto) % Neut # (Auto) (1.8-7.7) 10^3/u L Lymph # (Auto) (0.8-4.8) 10^3/u L Hamblen # (Auto) (0.2-0.9) 10^3/u L Eos # (Auto) (0.0-0.8) 10^3/u L Baso # (Auto) (0.0-0.1) 10^3/u L Nucleated RBC % (a uto) % Nucleated RBCs # /100WBC PT 14.90 (12.1-14.9) SECO NDS INR 1.13 (0.8-1.2) APTT 24.8 (23.9-36.7) SECO NDS Fibrinogen (174-498) mg/dL D-Dimer (0-0.59) ug/mIFE U Specimen Type Sample Site ABG pH (7.35-7.45) ABG pCO2 (35-45) mmHg ABG pO2 (80.0-100.0) mmH g ABG HCO3 (22-26) mmol/L ABG O2 Saturation ABG Base Excess (-2.0-2.0) mmol/ L Ganesh Test A-a O2 Gradient (5-10) mmHg Hematocrit (42-52) % Hgb O2 Saturation (95-100) % Carboxyhemoglobin (0.4-20.1) %THgb Methemoglobin (0.4-1.5) % Total Hemoglobin (14-18) g/dL Ionized Calcium (1.1-1.4) mmol/L O2 Delivery Device O2 Liters/Min % FiO2 % Semiautomatic Taper Operator ID Sodium (136-145) mmol/L Potassium (3.5-5.1) mmol/L Chloride (98-107) mmol/L Carbon Dioxide (22-29) mmol/L Anion Gap (5-19) BUN (8-23) mg/dL Creatinine (0.7-1.2) mg/dL GFR Calculation (90-130) mL/min Glucose (65-115) mg/dL POC Glucose (70-110) mg/dL Estimat Average Gl ucose 223 Hemoglobin A1c 9.4 H (4.0-6.0) % Calculated Osmolal ity (285-295) mOsm/k g Lactic Acid (0.5-2.2) mmol/L Calcium (8.5-10.5) mg/dL Ferritin (30-400) ng/mL Total Bilirubin (0.15-1.2) mg/dL AST (0-40) U/L ALT (0-41) U/L Alkaline Phosphata se (40-130) IU/L Lactate Dehydrogen ase (135-225) U/L Troponin T Baselin e 103 H* (0-15) ng/L Troponin T 120 Min [place] (0-15) ng/L Delta Troponin T (0-10) ABS# C-Reactive Protein (0.0-4.9) mg/L Total Protein (6.6-8.7) g/dL Albumin (3.5-5.2) g/dL Globulin (1.3-4.6) g/dL Procalcitonin (0-0.5) ng/mL 02/03/20 02/03/20 02/03/20 Range/Units 08:53 10:15 10:20 WBC (4.0-10.0) 10^3/ uL RBC (4.1-5.3) 10^6/u L Hgb (11.7-16.6) g/dL Hct (42.0-52.0) % MCV (80-94) fL MCH (28.0-34.0) pg MCHC (30.0-36.0) g/dL RDW (12.1-15.1) % Plt Count (130-400) 10^3/c mm MPV (7.4-10.4) fL Neut % (Auto) % Lymph % (Auto) % [place] % (Auto) % Eos % (Auto) % Baso % (Auto) % Neut # (Auto) (1.8-7.7) 10^3/u L Lymph # (Auto) (0.8-4.8) 10^3/u L [place] # (Auto) (0.2-0.9) 10^3/u L Eos # (Auto) (0.0-0.8) 10^3/u L Baso # (Auto) (0.0-0.1) 10^3/u L Nucleated RBC % (a uto) % Nucleated RBCs # /100WBC PT (12.1-14.9) SECO NDS INR (0.8-1.2) APTT (23.9-36.7) SECO NDS Fibrinogen (174-498) mg/dL D-Dimer (0-0.59) ug/mIFE U Specimen Type Arterial Sample Site Radial, left ABG pH 7.36 (7.35-7.45) ABG pCO2 37.7 (35-45) mmHg ABG pO2 128.0 H (80.0-100.0) mmH g ABG HCO3 21.2 L (22-26) mmol/L ABG O2 Saturation 99.4 ABG Base Excess -3.9 L (-2.0-2.0) mmol/ L Ganesh Test Pos A-a O2 Gradient 10.4 H (5-10) mmHg Hematocrit 29.2 L (42-52) % Hgb O2 Saturation 97.4 (95-100) % Carboxyhemoglobin 0.9 (0.4-20.1) %THgb Methemoglobin 1.1 (0.4-1.5) % Total Hemoglobin 9.5 L (14-18) g/dL Ionized Calcium 1.2 (1.1-1.4) mmol/L O2 Delivery Device Nc O2 Liters/Min 4.0 % FiO2 36.0 % Semiautomatic Taper Operator ID Cak Sodium 143.0 (136-145) mmol/L Potassium 3.5 (3.5-5.1) mmol/L Chloride (98-107) mmol/L Carbon Dioxide (22-29) mmol/L Anion Gap (5-19) BUN (8-23) mg/dL Creatinine (0.7-1.2) mg/dL GFR Calculation (90-130) mL/min Glucose 43.0 L (65-115) mg/dL POC Glucose > 600 (70-110) mg/dL Estimat Average Gl ucose Hemoglobin A1c (4.0-6.0) % Calculated Osmolal ity (285-295) mOsm/k g Lactic Acid (0.5-2.2) mmol/L Calcium (8.5-10.5) mg/dL Ferritin (30-400) ng/mL Total Bilirubin (0.15-1.2) mg/dL AST (0-40) U/L ALT (0-41) U/L Alkaline Phosphata se (40-130) IU/L Lactate Dehydrogen ase (135-225) U/L Troponin T Baselin e (0-15) ng/L Troponin T 120 Min [place] 95.17 H (0-15) ng/L Delta Troponin T -7.83 L (0-10) ABS# C-Reactive Protein (0.0-4.9) mg/L Total Protein (6.6-8.7) g/dL Albumin (3.5-5.2) g/dL Globulin (1.3-4.6) g/dL Procalcitonin (0-0.5) ng/mL 02/03/20 02/03/20 02/03/20 Range/Units 10:30 11:35 13:16 WBC (4.0-10.0) 10^3/ uL RBC (4.1-5.3) 10^6/u L Hgb (11.7-16.6) g/dL Hct (42.0-52.0) % MCV (80-94) fL MCH (28.0-34.0) pg MCHC (30.0-36.0) g/dL RDW (12.1-15.1) % Plt Count (130-400) 10^3/c mm MPV (7.4-10.4) fL Neut % (Auto) % Lymph % (Auto) % [place] % (Auto) % Eos % (Auto) % Baso % (Auto) % Neut # (Auto) (1.8-7.7) 10^3/u L Lymph # (Auto) (0.8-4.8) 10^3/u L [place] # (Auto) (0.2-0.9) 10^3/u L Eos # (Auto) (0.0-0.8) 10^3/u L Baso # (Auto) (0.0-0.1) 10^3/u L Nucleated RBC % (a uto) % Nucleated RBCs # /100WBC PT (12.1-14.9) SECO NDS INR (0.8-1.2) APTT (23.9-36.7) SECO NDS Fibrinogen (174-498) mg/dL D-Dimer (0-0.59) ug/mIFE U Specimen Type Sample Site ABG pH (7.35-7.45) ABG pCO2 (35-45) mmHg ABG pO2 (80.0-100.0) mmH g ABG HCO3 (22-26) mmol/L ABG O2 Saturation ABG Base Excess (-2.0-2.0) mmol/ L Ganesh Test A-a O2 Gradient (5-10) mmHg Hematocrit (42-52) % Hgb O2 Saturation (95-100) % Carboxyhemoglobin (0.4-20.1) %THgb Methemoglobin (0.4-1.5) % Total Hemoglobin (14-18) g/dL Ionized Calcium (1.1-1.4) mmol/L O2 Delivery Device O2 Liters/Min % FiO2 % Semiautomatic Taper Operator ID Sodium (136-145) mmol/L Potassium (3.5-5.1) mmol/L Chloride (98-107) mmol/L Carbon Dioxide (22-29) mmol/L Anion Gap (5-19) BUN (8-23) mg/dL Creatinine (0.7-1.2) mg/dL GFR Calculation (90-130) mL/min Glucose 131 H (65-115) mg/dL POC Glucose 81 55 (70-110) mg/dL Estimat Average Gl ucose Hemoglobin A1c (4.0-6.0) % Calculated Osmolal ity (285-295) mOsm/k g Lactic Acid (0.5-2.2) mmol/L Calcium (8.5-10.5) mg/dL Ferritin (30-400) ng/mL Total Bilirubin (0.15-1.2) mg/dL AST (0-40) U/L ALT (0-41) U/L Alkaline Phosphata se (40-130) IU/L Lactate Dehydrogen ase (135-225) U/L Troponin T Baselin e (0-15) ng/L Troponin T 120 Min [place] (0-15) ng/L Delta Troponin T (0-10) ABS# C-Reactive Protein (0.0-4.9) mg/L Total Protein (6.6-8.7) g/dL Albumin (3.5-5.2) g/dL Globulin (1.3-4.6) g/dL Procalcitonin (0-0.5) ng/mL Discharge Plan Discharge Patient Disposition: Admitted As Inpatient Admit Provider: Homa Adame Clinical Impression: COVID-19 virus infection, Diabetes 1.5, managed as type 2, Essential hypertension, ASHD (arteriosclerotic heart disease), Hypoglycemia, IVAN (acute kidney injury) Condition: Stable Discharge Date/Time: 02/03/20 15:30 Coding Level of Care Code ED Data Entry Assistant for Chg 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
[2020-02-03 07:40] LABS: ABG PCO2 41.1 mmHg (35-45); ABG PH Result 7.32 (7.35-7.45); Arterial Blood Gas Hematocrit 32.7 % (42-52); Base Excess ABG -4.8 mmol/L (-2.0-2.0); Blood Gas Allen Test Pos; Blood Gas Operator Identificat CAK; Blood Gas Sample Site Radial, right; Blood Gas Sample Type Arterial; Oxygen Device NC
--- NOTE | 2020-02-03 07:43 | XR_ITS ---
WS: [id number] PORTABLE CHEST HISTORY: dyspnea/cough COMPARISON: 01/30/2020 Moderate increase in the scattered multi lobar opacifications since the prior examination. No improve ment. No pleural effusion or pneumothorax. Cardiac size: Mildly enlarged cardiac silhouette. Mediastinum/Aorta: Mild atherosclerosis aorta. Mediastinum appears widened due to the adjacent opacif ications. Limited visualization of Gutierrez rods in the thoracolumbar junction. XR/XR chest 1V portable [id number] IMPRESSION: Moderate progression of diffuse pulmonary opacifications.
--- NOTE | 2020-02-03 07:45 | ECG_ITS ---
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 Measurements Intervals [place] Rate: 64 P: 35 [place]: 200 QRS: 20 QRSD: 129 T: 56 QT: 446 QTc: 461 Interpretive Statements SINUS RHYTHM WITH OCCASIONAL SUPRAVENTRICULAR PREMATURE COMPLEXES MODERATE INTRAVENTRICULAR CONDUCTION DELAY [110+ ms QRS DURATION] NONSPECIFIC T-WAVE ABNORMALITY Compared to ECG 01/25/2020 23:08:31 T-wave abnormality now present First degree AV block no longer present Electronically Signed On 02-03-2020 18:42:14 CDT by Daryl Ashraf M.D. [id number] f
[2020-02-03 07:59] LABS: Basophils % 0.2 %; Eosinophils # 0.1 10^3/uL (0.0-0.8); Eosinophils % 0.6 %; Hematocrit 32.5 % (42.0-52.0); Lymphocytes # 0.5 10^3/uL (0.8-4.8); Lymphocytes % 3.2 %; Mean Corpuscular HGB Conc 30.8 g/dL (30.0-36.0); Mean Corpuscular Hemoglobin 27.2 pg (28.0-34.0); Mean Corpuscular Volume 88.3 fL (80-94); Mean Platelet Volume 10.4 fL (7.4-10.4); Monocytes # 1.2 10^3/uL (0.2-0.9); Monocytes % 8.3 %; Neutrophils # 11.57 10^3/uL (1.8-7.7); Neutrophils % 82.2 %; Nucleated Red Blood Cells % 0 %; Platelet Count 247 10^3/cmm (130-400); Red Blood Count 3.68 10^6/uL (4.1-5.3); Red Cell Distribution Width 15.9 % (12.1-15.1); White Blood Count 14.1 10^3/uL (4.0-10.0)
[2020-02-03 08:15] LABS: Lactic Sepsis W/Reflex 1.2 mmol/L (0.5-2.2)
[2020-02-03 08:20] LABS: Troponin(5th) Baseline 103 ng/L (0-15)
--- NOTE | 2020-02-03 08:21 | PC.NURSE ---
Patient reassess After initiating bear hugger blanket and warm IV fluids, attempted to reassess temperature. Patient did not resist orally, however would thermometer would not read orally or axillary. Patient was more responsive and making incomprehensible noises.
[2020-02-03 08:28] LABS: Procalcitonin 0.17 ng/mL (0-0.5)
[2020-02-03 08:30] LABS: Fibrinogen 496 mg/dL (174-498)
[2020-02-03] MEDS: sodium chloride 0.9% 2,000 ML 999 ML IV (08:30)
[2020-02-03 08:33] LABS: D Dimer 0.72 ug/mIFEU (0-0.59)
[2020-02-03 08:39] LABS: Alanine Aminotransferase 39 U/L (0-41); Albumin Level 3.4 g/dL (3.5-5.2); Alkaline Phosphatase 137 IU/L (40-130); Aspartate Amino Transferase 22 U/L (0-40); C Reactive Protein 14.1 mg/L (0.0-4.9); Chloride 106 mmol/L (98-107); Lactate Dehydrogenase 353 U/L (135-225); Potassium 3.6 mmol/L (3.5-5.1); Slide Review Slide Review Perform; Sodium 141 mmol/L (136-145)
[2020-02-03 09:04] LABS: ABG PCO2 37.7 mmHg (35-45); ABG PH Result 7.36 (7.35-7.45); Alveolar-Arterial Oxygen Gradi 10.4 mmHg (5-10); Arterial Blood Gas Hematocrit 29.2 % (42-52); Base Excess ABG -3.9 mmol/L (-2.0-2.0); Blood Gas Allen Test Pos; Blood Gas Operator Identificat CAK; Blood Gas Sample Site Radial, left; Blood Gas Sample Type Arterial; Carboxyhemoglobin 0.9 %THgb (0.4-20.1); HCO3 ABG 21.2 mmol/L (22-26); HGB O2 Sat 97.4 % (95-100); Ionized Calcium Level - ABG 1.2 mmol/L (1.1-1.4); Methemoglobin 1.1 % (0.4-1.5); Oxygen Device NC; Oxygen Saturation ABG 99.4; Potassium Level - ABG 3.5 mmol/L (3.5-5.0); Total Hemoglobin 9.5 g/dL (14-18)
[2020-02-03 09:05] LABS: Anion Gap 18.6 (5-19); Calcium 8.8 mg/dL (8.5-10.5); Carbon Dioxide 20 mmol/L (22-29); Globulin 2.5 g/dL (1.3-4.6); Glomerular Filtration Rate 16.4 mL/min (90-130); Glucose 96 mg/dL (65-115); Total Bilirubin 0.4 mg/dL (0.15-1.2); Total Protein 5.9 g/dL (6.6-8.7)
[2020-02-03] MEDS: dextrose 50% syringe 50 mL IVP (09:20)
[2020-02-03] MEDS: dextrose 10% 1,000 ML 75 ML IV (09:22)
[2020-02-03] MEDS: dexamethasone 4 mg/mL INJ 6 MG IVP (09:25)
--- NOTE | 2020-02-03 09:30 | PC.NURSE ---
Patient more responsive and repeating verbally needing to urinate and filled urinal half full. attempted oral temp but again would not read, Temp axillary was 96.
[2020-02-03 09:31] LABS: INR 1.13 (0.8-1.2)
[2020-02-03 09:32] LABS: Partial Thromboplastin Time 24.8 SECONDS (23.9-36.7)
--- NOTE | 2020-02-03 09:45 | ECG_ITS ---
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 Measurements Intervals [place] Rate: 71 P: 24 [place]: 210 QRS: 15 QRSD: 107 T: 54 QT: 422 QTc: 459 Interpretive Statements SINUS RHYTHM WITH FIRST DEGREE AV BLOCK NONSPECIFIC T-WAVE ABNORMALITY Compared to ECG 02/03/2020 10:57:55 Intraventricular conduction delay no longer present T-wave abnormality still present Electronically Signed On 02-03-2020 20:48:04 CDT by Daryl Ashraf M.D. [email or web address]/store/NU/[id number] f
[2020-02-03 09:50] LABS: Osmolality Calculated 343 mOsm/kg (285-295)
[2020-02-03 09:51] LABS: Blood Urea Nitrogen 157 mg/dL (8-23)
[2020-02-03] MEDS: enoxaparin 100 mg/mL Syringe SUBCUT ×2 (10:22→23:15)
[2020-02-03 11:17] LABS: Troponin 5 2HR 95.17 ng/L (0-15)
[2020-02-03 11:18] LABS: Glucose 131 mg/dL (65-115)
--- NOTE | 2020-02-03 11:41 | PC.NURSE ---
Patient rounding Patient now alert,, responding, answering questions, and assisting with pulling pants back up after using urinal. Temperature now 97.6 axillary and bear hugger removed. Accu check BG now 81
--- NOTE | 2020-02-03 13:21 | PC.NURSE ---
Patient rounding Patient alert and oriented, voided a total of 1L now. Accu check BG level was 55. Restarted d10% at 50mLs/hr
--- NOTE | 2020-02-03 13:45 | ECG_ITS ---
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 Measurements Intervals [place] Rate: 70 P: 37 [place]: 238 QRS: 39 QRSD: 113 T: 40 QT: 421 QTc: 455 Interpretive Statements SINUS RHYTHM WITH FIRST DEGREE AV BLOCK MODERATE INTRAVENTRICULAR CONDUCTION DELAY [110+ ms QRS DURATION] NONSPECIFIC T-WAVE ABNORMALITY Compared to ECG 02/03/2020 07:52:28 First degree AV block now present T-wave abnormality still present Electronically Signed On 02-03-2020 20:49:24 CDT by Daryl Ashraf M.D. [email or web address]/[id number]
[2020-02-03 14:23] LABS: Troponin 5 6HR 98.62 ng/L (0-15)
[2020-02-03 14:28] LABS: Troponin 5 6HR Delta -4.38 ng/L (0-12)
--- NOTE | 2020-02-03 14:49 | P.HP_ITS ---
Providers/Chief Complaint Admitting Physician: Homa Adame MD Primary Care Provider: LEÓN SEGOVIA MD Chief Complaint: AMS/ LOW BLOOD SUGAR History of Present Illness Eliazar Hogan is a 69 year old male with past medical history of CAD, bilateral carotid stenosis, CKD, CHF, CVA, diabetes mellitus, diabetic neuropathy, dyslipidemia, hypertension, obstructive sleep apnea, chronically on 4 L/min home O2, former smoker who was recently admitted to the hospital between January 24 to January 2013 for COVID-19 ARDS. He received treatment with dexamethasone and remdesivir. He was on Eliquis for DVT prophylaxis. During the course of admission his renal function had continued to worsen, renal ultrasound had shown no obstruction, Lasix was held on discharge. He had a CT chest which had shown changes consistent with COVID-19 pneumonia. There was some concern regarding his kidney function, however patient had insisted upon discharge and was therefore discharged home to follow-up closely with his primary care provider. Incidentally noted blood cultures from January 24 reported as staph aureus in 1 out of 3 bottles at 10:40 AM, from 01 24 at 8:50 PM, 2 out of 3 reported positive for coag negative staph, labeled as possible contaminants. Blood culture again on 01/28 at 1725 reported as 1 of 3 positive for coag negative staph. Patient return to the ER today with complaints of altered mental status and was found to be hypoglycemic with blood sugar in the 50s. Last known well at 9 PM overnight. He was also noted to be hypothermic with body temperature of 94 Fahrenheit. He had hyperglycemia with glucose of 43, received supplementation with last fingerstick at 131. Improved mentation after being given dextrose. Other Other notable labs are leukocytosis at 14, improving from 15.6 on last admission, hemoglobin stable at 10, elevated troponins of 95 and 98, however with negative delta's, downtrending CRP, downtrending D-dimer, baseline oxygen requirement of 4 L/min with O2 sat 97%, ABG with 7.3 2/41/117/21 upon arrival. Sputum culture on last hospital stay was with normal respiratory lucia. Head CT with small vessel ischemic changes including multiple small lacunar infarcts. No acute cortical infarct mass-effect or intracranial hemorrhage. Chest x-ray with progression of diffuse pulmonary opacifications. Review of Systems General: Reports: ROS unobtainable due to medical condition and ROS unobtainable due to mental status Medications/Allergies Home Medications Medication Instructions Recorded Confirmed Last Taken Type acetaminophen 500 mg tablet 1,000 mg PO Q6H PRN 05/05/19 02/03/20 01/24/20 History aspirin 81 mg tablet,delayed 81 mg PO DAILY tab 05/05/19 02/03/20 02/02/20 History release cetirizine 10 mg tablet 10 mg PO DAILY tab 05/05/19 02/03/20 02/02/20 History escitalopram oxalate 10 mg tablet 10 mg PO DAILY tab 05/05/19 02/03/20 02/02/20 History hydralazine 100 mg tablet 100 mg PO TID 05/05/19 02/03/20 02/02/20 History isosorbide mononitrate 60 mg 60 mg PO QAM 05/05/19 02/03/20 02/02/20 History tablet,extended release 24 hr levothyroxine 25 mcg capsule 25 mcg PO DAILY cap 05/05/19 02/03/20 02/02/20 History nitroglycerin 0.4 mg sublingual 0.4 mg SUBLINGUAL Q5M PRN 05/05/19 02/03/20 Unknown History tablet pantoprazole 40 mg tablet,delayed 40 mg PO QAM 05/05/19 02/03/20 02/02/20 History release pravastatin 40 mg tablet 40 mg PO QPM tab 05/05/19 02/03/20 02/02/20 History terazosin 10 mg capsule 10 mg PO BID cap 05/05/19 02/03/20 02/02/20 History allopurinol 300 mg tablet 300 mg PO DAILY tab 05/06/19 02/03/20 02/02/20 History labetalol 100 mg tablet 100 mg PO BID 05/06/19 02/03/20 02/02/20 History calcitriol 0.5 mcg capsule 1 mcg PO .COMPLEX 11/02/19 02/03/20 02/02/20 History clopidogrel [Plavix] 75 mg PO DAILY 01/25/20 02/03/20 02/02/20 History insulin detemir U-100 See Rx Instructions .ROUTE .COMPLEX 01/25/20 02/03/20 02/02/20 History metoprolol tartrate 50 mg PO BID 01/25/20 02/03/2020 History albuterol sulfate [Ventolin HFA] 2 puff INHALATION Q4H.RESPIRATORY 02/01/20 02/03/20 Unknown Rx PRN #1 g Allergies Allergy/AdvReac Type Severity Reaction Status Date / Time chicken derived Allergy Unknown Unknown Verified 01/25/20 11:04 PFSH Acute PFSH: Medical History Anemia ASHD (arteriosclerotic heart disease) Carotid stenosis, bilateral Chronic back pain Chronic kidney disease (CKD) Congestive 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 COVID-19 virus infection Currently on baseline oxygen requirement CVA (cerebral vascular accident) Diabetes 1.5, managed as type 2 Diabetic neuropathy Dyslipidemia Edema Essential hypertension Myocardial infarction KAITLYNN (obstructive sleep apnea) Surgical History Previous back surgery S/P angioplasty with stent S/P cataract extraction Family History Mother CAD (coronary artery disease) Stroke Sister Hypertension Social History Smoking and tobacco status: former smoker Alcohol intake: never Household members: spouse Marital status: service: Yes branch: [employer] Current occupational status: employed Current gender identity: Male Vitals/I&O/Wt Last Vital Signs Temp 96 F L 02/03/20 09:11 Pulse 63 02/03/20 14:30 Resp 15 02/03/20 14:30 BP 154/80 02/03/20 14:30 Pulse Ox 97 02/03/20 14:30 02/02/20 02/03/20 02/03/20 22:59 06:59 14:59 Intake Total 2072.5 / 2072.5 Output Total 1000 / 1000 Balance 1072.5 / 1072.5 Weight last 48 hrs Weight 101.196 kg Physical Exam Const: COMMON NORMALS: no acute distress, average body habitus, patient orie nted x3, no limitations, healthy appearing, alert and well nourished HENMT: COMMON NORMALS: normocephalic and atraumatic HEAD & SCALP: normocephalic and atraumatic Eye: COMMON NORMALS: Equal, round and reactive pupils present, EOMs intact bilaterally, conjunctivae normal and no scleral icterus CONJUNCTIVA: Yes co njunctivae normal PUPIL: Yes Equal, round and reactive pupils present Neck/C-Spine: COMMON NORMALS: no JVD Resp: COMMON NORMALS: normal respiratory effort, No retractions, No use of accessory muscles, clear to auscultation bilaterally and percussion normal AUSCULTATION: clear to auscultation bilaterally PERCUSSION: percussion normal Cardio: COMMON NORMALS: no JVD, regular rate, regular rhythm, S1 normal heart sound present, S2 normal heart sound present, No gallops present (Cardio), No clicks present (Cardio), No murmurs present (Cardio), No rub (Cardio) and Peripheral pulses 2+ throughout RATE: regular rate RHYTHM: regular rhythm HEART SOUNDS: S1 normal heart sound present and S2 normal heart sound present PERIPHERAL PULSES: Peripheral pulses 2+ throughout GI: COMMON NORMALS: Normal to inspection, nondistended, normoactive bowel sounds present, Soft to palpation, non-tender, No hepatosplenomegaly present, no masses and no bruits PALPATION: Yes Soft to palpation and Yes No hepatosp lenomegaly present Extremity: COMMON NORMALS: normal to inspection, full ROM, capillary refill normal, no joint enlargement, no clubbing, cyanosis or edema, no calf tenderness and no pedal edema Neuro: COMMON NORMALS: patient oriented x3, CN's II-XII intact bilaterally, moves all extremities, no focal motor deficits, no sensory deficits noted, deep tendon reflexes 2+ bilaterally and gait normal SENSORIUM/ORIENTATION: Yes alert Psych: COMMON NORMALS: mental status grossly normal, Normal thought process present, cooperative, normal affect, speech normal, activity/motor behavior norm al, denies hallucinations, denies homicidal ideation and denies suicidal ideation SPEECH: Yes normal speech THOUGHT PROCESS: Normal thought process present Skin: COMMON NORMALS: no rashes or lesions noted, no wounds, turgor normal, no jaundice, no petechiae and no mottling GENERAL SKIN EXAM: no rashes or lesions noted and turgor normal Data : 02/03/20 07:44 02/03/20 10:30 A&P Assessment and plan (1) Hypoglycemia: Status: Acute (2) Chronic kidney disease (CKD): Status: Chronic Qualifiers: Chronic kidney disease stage: stage 3 (moderate) Chronic kidney disease stage 3 subtype: stage 3b (GFR 30-44) Qualified Code(s): N18.32 - Chronic kidney disease, stage 3b (3) Carotid stenosis, bilateral: Status: Acute (4) ASHD (arteriosclerotic heart disease): Status: Chronic (5) Diabetes 1.5, managed as type 2: Status: Chronic (6) CHF exacerbation: Status: Acute Qualifiers: Heart failure type: diastolic Qualified Code(s): I50.33 - Acute on chronic diastolic (congestive) heart failure (7) IVAN (acute kidney injury): Status: Acute Additional A&P Information Admit to [facility] #Hypoglycemia Unclear circumstances, patient is not able to recall if he has been taking his insulin correctly. Last A1c is at 9.9. Patient has received D50 in the ER, started also on D10 infusion. Check fingersticks every 2 hours for now. Encourage p.o. intake. Hold all insulin. #Acute on chronic CHF exacerbation: Patient's chest x-ray shows today mild to moderate progression of bilateral pulmonary infiltrates, which could represent either worsening COVID-19 pneumonia versus fluid. No other signs of worsening of pneumonia. Oxygen requirements remain at baseline. PO2 FiO2 ratio not consistent with ARDS on patient's ABG, downtrending inflammatory markers. Check BNP Lasix 40mg iv q12h. check I/o, daily weight Troponins are elevated, however with negative delta's, which may be consistent with CHF. I would be concerned for possibility of postviral staphylococcal pneumonia, therefore keeping covered with empiric antibiotics for now with Zosyn and vancomycin. Check MRSA PCR from nares. Check influenza antigen. Check Covid PCR. If negative patient can come off of isolation. # Blood cx from 01/24 with S. aureus, 01/24 and 01/28 with CoNs. Unclear significance. CoNs could be contaminants but concerned about S. aureus on 01/24 blood cx. check again today. Cannot exclude sepsis with ongoing hypoglycemia, hypothermia, recent pneumonia and questionable significance of blood cultures. Will empirically cover with zosyn and vancomycin while undergoing sepsis w/up # recent COVID 19 ARDS Cannot exclude post COVID complications such as PE, bronchiolitis especially with worsening infiltrates. Full dose lovenox for now, CTA chest once more awake Methylprednisone 30mg iv q8h for now Albuterol inhalation q4h scheduled # IVAN on CKD , monitor closely with diuresis, trending up slowly since 02/2019 # Anemia, likely related to CKD . 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
[2020-02-03 15:18] LABS: Estmated Average Glucose 223; Hemoglobin A1C 9.4 % (4.0-6.0)
--- NOTE | 2020-02-03 15:21 | PC.NURSE ---
Patient given meal, Accu Check BG level 66 at 1450
[2020-02-03 15:50] LABS: NT Pro B Type Natriuretic Pept 327 pg/mL (0-125); Thyroid Stimulating Hormone 0.65 uIU/mL (0.27-4.20)
[2020-02-03] MEDS: hyDRALAzine 50 mg Tablet 100 MG PO ×2 (16:56→23:15)
[2020-02-03] MEDS: terazosin 5 mg Capsule 10 MG PO (16:56)
[2020-02-03] MEDS: FUROsemide 10 mg/mL SDV 4mL 40 MG IVP (16:57)
[2020-02-03] MEDS: atorvastatin 40 mg Tablet 20 MG PO (16:58)
[2020-02-03] MEDS: piperacillin-tazobactam 3.375 GM in sodium chloride 0.9% (plus) 50 ML IV (16:59)
[2020-02-03] MEDS: metoprolol tartrate 50 mg Tablet PO (16:59)
[2020-02-03] MEDS: sodium chloride 0.9% 1,000 ML 100 ML IV (17:00)
[2020-02-03] MEDS: labetalol 200 mg Tablet 100 MG PO (17:03)
[2020-02-03 17:05] LABS: Glucose Point of Care 55 mg/dL (70-110)
[2020-02-03 17:05] LABS: Glucose Point of Care 105 mg/dL (70-110)
[2020-02-03 17:05] LABS: Glucose Point of Care > 600 mg/dL (70-110)
[2020-02-03 17:05] LABS: Glucose Point of Care 60 mg/dL (70-110)
[2020-02-03 17:05] LABS: Glucose Point of Care 81 mg/dL (70-110)
[2020-02-03 17:05] LABS: Glucose Point of Care 63 mg/dL (70-110)
[2020-02-03 17:23] LABS: Glucose Point of Care 135 mg/dL (70-110)
[2020-02-03] MEDS: albuterol 8 gm MDI 2 PUFF INHALATION (20:15)
[2020-02-03 22:08] LABS: Glucose Point of Care 206 mg/dL (70-110)
[2020-02-04] VITALS (15 sets, daily range): BP systolic 150–182; BP diastolic 69–89; PULSE 71–80; RESP 16–18; TEMP 36.5–37.1; O2SAT 94–98; BMI 33.7
[2020-02-04] MEDS: albuterol 8 gm MDI 2 PUFF INHALATION ×6 (00:10→20:15)
[2020-02-04] MEDS: FUROsemide 10 mg/mL SDV 4mL 40 MG IVP ×2 (03:34→18:31)
[2020-02-04] MEDS: sodium chloride 0.9% 1,000 ML 100 ML IV (03:35)
[2020-02-04] MEDS: labetalol 200 mg Tablet 100 MG PO ×2 (04:15→18:30)
--- NOTE | 2020-02-04 04:18 | PC.NURSE ---
Dr Sanchez notified of patient being hypertensive. Order received to give labetalol now instead of 0900 as scheduled.
[2020-02-04 04:30] LABS: Basophils % 0.1 %; Hematocrit 29.3 % (42.0-52.0); Lymphocytes # 0.2 10^3/uL (0.8-4.8); Mean Corpuscular HGB Conc 30.7 g/dL (30.0-36.0); Mean Corpuscular Hemoglobin 27.3 pg (28.0-34.0); Mean Corpuscular Volume 88.8 fL (80-94); Monocytes # 0.4 10^3/uL (0.2-0.9); Monocytes % 2.2 %; Neutrophils # 16.09 10^3/uL (1.8-7.7); Neutrophils % 92.3 %; Nucleated Red Blood Cells % 0 %; Platelet Count 237 10^3/cmm (130-400); White Blood Count 17.4 10^3/uL (4.0-10.0)
[2020-02-04 05:01] LABS: Alanine Aminotransferase 30 U/L (0-41); Alkaline Phosphatase 130 IU/L (40-130); Anion Gap 18.6 (5-19); Aspartate Amino Transferase 30 U/L (0-40); Carbon Dioxide 20 mmol/L (22-29); Chloride 110 mmol/L (98-107); Globulin 3.4 g/dL (1.3-4.6); Glomerular Filtration Rate 16.4 mL/min (90-130); Glucose 257 mg/dL (65-115); Potassium 4.6 mmol/L (3.5-5.1); Sodium 144 mmol/L (136-145); Total Bilirubin 0.5 mg/dL (0.15-1.2); Total Protein 6.4 g/dL (6.6-8.7)
[2020-02-04] MEDS: piperacillin-tazobactam 3.375 GM in sodium chloride 0.9% (plus) 50 ML IV ×2 (05:43→18:30)
[2020-02-04] MEDS: pantoprazole DR 40 mg Tablet PO (05:43)
[2020-02-04] MEDS: isosorbide mononitrate ER 60 mg Tablet PO (05:43)
[2020-02-04 05:48] LABS: Blood Urea Nitrogen 136 mg/dL (8-23); Osmolality Calculated 351 mOsm/kg (285-295)
[2020-02-04 07:00] LABS: Influenza A by IFA Negative (Negative); Influenza B by IFA Negative (Negative)
[2020-02-04 07:04] LABS: Glucose Point of Care 273 mg/dL (70-110)
--- NOTE | 2020-02-04 07:58 | USCV_ITS ---
Eliazar Hogan Age: 69 Gender: M : 1950 Exam Date: 02/04/2020 14:38 Ordering Phys: Homa Adame MD Technologist: Akosua Cooley Exam Location: [facility] [place] Indication: RENAL ARTERY THROMBUS Aortic Velocity @ SMA (cm/s) 78 RIGHT KIDNEY LEFT KIDNEY Velocity (cm/s) Velocity (cm/s) Sys/Doty Sys/Doty Resistive Index Resistive Index 74.1 / 18.8 0.75 Proximal Renal Artery 102.7 / 24.6 0.76 57.4 / 15.7 0.73 Mid Renal Artery 104.1 / 26.0 0.75 62.7 / 19.8 0.68 Distal Renal Artery 104.1 / 21.7 0.79 42.8 / 15.7 0.63 Hilar 112.8 / 23.1 0.79 75.2 / 20.2 0.73 Upper Pole 50.9 / 17.4 0.64 55.4 / 17.8 0.68 Mid Pole 65.8 / 19.8 0.70 85.3 / 24.6 0.71 Lower Pole 71.0 / 19.8 0.72 0.90 Renal Aortic Ratio 1.33 Accleration Index (cm/sec2) 856.00 Hilar 926.00 854.00 Upper Pole 739.00 856.00 Mid Pole 823.00 864.00 Lower Pole 1086.0 0 106.3 Kidney Length (mm) 109.7 FINDINGS No comparison. Limited by body habitus. There is no evidence of hemodynamically significant right renal artery stenosis. There is no evidence of hemodynamically significant left renal artery stenosis. CONCLUSIONS Limited evaluation of the arteries but no stenosis seen. Dr. Mita Kraus DO (Electronically Signed) Final Date: 04 February 2020 15:34 S
--- NOTE | 2020-02-04 08:00 | XR_ITS ---
WS: [id number] Portable AP upright chest, 02/04/2020 Clinical Data: follow up on infiltrates Comparison: Portable chest, 02/03/2020 Findings: The bilateral opacities throughout both lungs have diminished slightly. The heart remains e nlarged. The aortic arch and descending aorta are tortuous. No pneumothorax is seen. The patient has had a lower thoracic fusion. There is sclerosis of the right glenoid. Review of old chest x-rays reve al this has been present for years and may represent Paget's disease rather than an osteoblastic met astasis. XR/XR chest 1V portable [id number] Impression: 1. Slight decrease in bilateral opacities in the lungs. 2. Cardiomegaly 3. Sclerosis of the right glenoid fossa and adjacent scapula which has been pre sent for years and may represent Paget's disease rather than an osteoblastic me tastasis.
[2020-02-04] MEDS: hyDRALAzine 50 mg Tablet 100 MG PO ×3 (08:58→21:03)
[2020-02-04] MEDS: levothyroxine 25 mcg Tablet PO (08:58)
[2020-02-04] MEDS: clopidogrel 75 mg Tablet PO (08:58)
[2020-02-04] MEDS: enoxaparin 100 mg/mL Syringe SUBCUT (08:58)
[2020-02-04] MEDS: metoprolol tartrate 50 mg Tablet PO ×2 (08:58→18:30)
[2020-02-04] MEDS: terazosin 5 mg Capsule 10 MG PO ×2 (08:58→18:35)
[2020-02-04] MEDS: allopurinol 300 mg Tablet PO (08:58)
[2020-02-04] MEDS: escitalopram 10 mg Tablet PO (08:58)
[2020-02-04 11:09] LABS: Glucose Point of Care 407 mg/dL (70-110)
[2020-02-04 11:09] LABS: Glucose Point of Care 424 mg/dL (70-110)
[2020-02-04 11:15] LABS: Add Urine Microscopic? YES; Bilirubin Urine Neg (Negative); Blood Urine 3+ (Negative); Glucose Urine UA Norm (Normal); Ketones Urine Negative (Negative); Leukocyte Esterase Urine Trace (Negative); Nitrate Urine Negative (Negative); Protein Urine Neg (Negative); Urine Appearance SL Hazy (CLEAR); Urine Color Yellow (Yellow); Urobilinogen Urine Neg (Negative); pH Urine 5 (5-7)
[2020-02-04 11:16] LABS: Bacteria Urine 2+ /hpf
[2020-02-04 11:17] LABS: Add Urine Culture? Yes; Potassium, Radom Urine 24 mmol/L; Urine Creatinine 31 mg/dL (39-259); Urine Random Chloride 68 mmol/L; Urine Random Sodium 72 mmol/L
[2020-02-04 11:50] LABS: Eosinophil Urine No Eosinophils Seen; Urine Eosinophil Count 0 (0-0)
--- NOTE | 2020-02-04 13:44 | PM.PN ---
Subjective Subjective: Interval history: No acute overnight events. It appears after being on D5 initially, patient's fluid was switched to normal saline which has been discontinued this morning. Patient has had approximately 3 L urine output between yesterday and today. Last POC glucose at 11 AM at 407. Creatinine at 3.7, BUN at 136. Medications: Reviewed: Yes Vitals/I&O/Wt Last Vital Signs Temp 97.7 F 02/04/20 11:36 Pulse 78 02/04/20 11:42 Resp 17 02/04/20 11:42 BP 162/71 02/04/20 11:36 Pulse Ox 96 02/04/20 11:42 02/03/20 02/04/20 02/04/20 22:59 06:59 14:59 Intake Total 300 / 2372.5 1000 / 3372.5 1217.5 / 1217.5 Output Total 350 / 1350 1550 / 2900 350 / 350 Balance -50 / 1022.5 -550 / 472.5 867.5 / 867.5 Weight last 48 hrs Weight 100.652 kg Weight 100.652 kg Weight 101.196 kg Physical Exam Narrative: EXAM NARRATIVE: GEN: Awake, alert and oriented, no acute distress HEENT nasal cannula in place. CVS: S1S2 N RS: CTA B/L except crackles over RUL Abd: Soft, nt/nd , bs+ OTR [employer]: no focal neuro deficits Ext: BL LE pitting edema Data : 02/04/20 04:00 02/04/20 04:00 Micro: Microbiology 02/04/20 05:50 MRSA Culture - Final Nose 02/03/20 16:40 Blood Culture - Preliminary Blood SPECIMEN COLLECTED 02/03/20 16:50 Blood Culture - Preliminary Blood SPECIMEN COLLECTED A&P Assessment and plan (1) Hypoglycemia: Status: Acute (2) Chronic kidney disease (CKD): Status: Chronic Qualifiers: Chronic kidney disease stage: stage 3 (moderate) Chronic kidney disease stage 3 subtype: stage 3b (GFR 30-44) Qualified Code(s): N18.32 - Chronic kidney disease, stage 3b (3) Carotid stenosis, bilateral: Status: Acute (4) ASHD (arteriosclerotic heart disease): Status: Chronic (5) Diabetes 1.5, managed as type 2: Status: Chronic (6) CHF exacerbation: Status: Acute Qualifiers: Heart failure type: diastolic Qualified Code(s): I50.33 - Acute on chronic diastolic (congestive) heart failure (7) IVAN (acute kidney injury): Status: Acute Additional A&P Information #Hypoglycemia Now resolved. Blood sugar this afternoon as 400. Will start low-dose insulin sliding scale at this time and also change his diet to carb consistent now. #Acute on chronic CHF exacerbation: Patient's chest x-ray shows today mild to moderate progression of bilateral pulmonary infiltrates, which could represent either worsening COVID-19 pneumonia versus fluid. No other signs of worsening of pneumonia. Oxygen requirements remain at baseline. PO2 FiO2 ratio not consistent with ARDS on patient's ABG, downtrending inflammatory markers. BNP not significantly elevated at this time. Worsening edema may be related to renal insufficiency. Lasix 40mg iv q12h. check I/o, daily weight For possibility of postviral staphylococcal pneumonia, keeping covered with empiric antibiotics for now with Zosyn. Discontinue vancomycin as MRSA PCR from the nares returned negative. Negative influenza antigen. Check Covid PCR. If negative patient can come off of isolation. It appears the sample was not sent out yesterday. Nephorlogy consult to assist with diuretic regimen choice and IVAN on CKD # Blood cx from 01/24 with S. aureus, 01/24 and 01/28 with CoNs. Unclear significance. CoNs could be contaminants but concerned about S. aureus on 01/24 blood cx. Blood cx from 02/02 remains pending. Cannot exclude sepsis with ongoing hypoglycemia, hypothermia, recent pneumonia and questionable significance of blood cultures. Will empirically cover with zosyn while undergoing sepsis w/up # recent COVID 19 ARDS Cannot exclude post COVID complications such as PE, bronchiolitis especially with worsening infiltrates. Change lovenox to Eliquis 5mg po BID, umnable to get CTA due to kidney function Methylprednisone 30mg q12h now, will continue to taper down and monitor respiratory status Albuterol inhalation q4h scheduled # Anemia, likely related to CKD . 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
--- NOTE | 2020-02-04 14:40 | PM.CONSULT ---
Providers/Reason For Consult Consulting Physican/Specialty*: Nephrology Reason for Consult*: IVAN on CKD Attending Physician: Homa Adame MD Primary Care Provider: LEÓN SEGOVIA MD History of Present Illness History of Present Illness Thank you for consultation. Today I reviewed this very pleasant 69-year-old female for evaluation of acute kidney injury. Recent admission for COVID and his diuretics were stopped due to concerns for his renal function. Some of his blood cultures were positive for Staph Aureus also. He is now readmitted with hypoglycemia. CXR with some evidence of fluid overload and he is restated on his Lasix. UO was 2250mL yesterday, ie quite robust. Due to the infiltrates he is also being treated with Vanco and Zosyn. Creatinine 3.6 on the day of DC, now 3.7mg/dL. Urine creatinine 31 and urine sodium 72, however, he has been on Lasix. Urinalysis without significant proteinuria, but does have some RBCs and WBCs. Known to have CKD stage 4; follows with Dr Mikey Simpson. Renal Sono looked good on last admission. No exposure to nephrotoxic agents. Bps have been elevated since admission. Past medical history of CAD, bilateral carotid stenosis, CKD, CHF, CVA, diabetes mellitus, diabetic neuropathy, dyslipidemia, hypertension, obstructive sleep apnea, chronically on 4 L/min home O2, former smoker Review of Systems Narrative: ROS - 12 point review of systems completed per HPI and subjective assessment, this includes Constitutional: Weakness, fatigue Respiratory: No SOB on exertion, comfortable at rest CardioVasc: No chest pain, palpitations Gastrointestinal: No nausea, no vomiting Neurological: No seizures, no AMS Derm: No new rashes, lesions or wounds Immunological: No seasonal and no food allergies Meds/Allergies Home Medications and Allergies Home Medications Medication Instructions Recorded Confirmed Last Taken Type acetaminophen 500 mg tablet 1,000 mg PO Q6H PRN 05/05/19 02/03/20 01/24/20 History aspirin 81 mg tablet,delayed 81 mg PO DAILY tab 05/05/19 02/03/20 02/02/20 History release cetirizine 10 mg tablet 10 mg PO DAILY tab 05/05/19 02/03/20 02/02/20 History escitalopram oxalate 10 mg tablet 10 mg PO DAILY tab 05/05/19 02/03/20 02/02/20 History hydralazine 100 mg tablet 100 mg PO TID 05/05/19 02/03/20 02/02/20 History isosorbide mononitrate 60 mg 60 mg PO QAM 05/05/19 02/03/20 02/02/20 History tablet,extended release 24 hr levothyroxine 25 mcg capsule 25 mcg PO DAILY cap 05/05/19 02/03/20 02/02/20 History nitroglycerin 0.4 mg sublingual 0.4 mg SUBLINGUAL Q5M PRN 05/05/19 02/03/20 Unknown History tablet pantoprazole 40 mg tablet,delayed 40 mg PO QAM 05/05/19 02/03/20 02/02/20 History release pravastatin 40 mg tablet 40 mg PO QPM tab 05/05/19 02/03/20 02/02/20 History terazosin 10 mg capsule 10 mg PO BID cap 05/05/19 02/03/20 02/02/20 History allopurinol 300 mg tablet 300 mg PO DAILY tab 05/06/19 02/03/20 02/02/20 History labetalol 100 mg tablet 100 mg PO BID 05/06/19 02/03/20 02/02/20 History calcitriol 0.5 mcg capsule 1 mcg PO .COMPLEX 11/02/19 02/03/20 02/02/20 History clopidogrel [Plavix] 75 mg PO DAILY 01/25/20 02/03/20 02/02/20 History insulin detemir U-100 See Rx Instructions .ROUTE .COMPLEX 01/25/20 02/03/20 02/02/20 History metoprolol tartrate 50 mg PO BID 01/25/20 02/03/20 02/02/20 History albuterol sulfate [Ventolin HFA] 2 puff INHALATION Q4H.RESPIRATORY 02/01/20 02/03/20 Unknown Rx PRN #1 g Allergies Allergy/AdvReac Type Severity Reaction Status Date / Time chicken derived Allergy Unknown Unknown Verified 01/25/20 11:04 Current Medications Current Medications Generic Name Dose Route Start Last Admin Trade Name Freq PRN Reason Stop Dose Admin Albuterol Sulfate 2 puff 02/03/20 15:15 02/04/20 11:41 Ventolin INHALATION 2 puff Q4H SAYRA Administration Allopurinol 300 mg 02/04/20 09:00 02/04/20 08:58 Zyloprim PO 300 mg DAILY SAYRA Administration Atorvastatin Calcium 20 mg 02/03/20 18:00 02/03/20 16:58 Lipitor PO 20 mg QPM SAYRA Administration Clopidogrel Bisulfate 75 mg 02/04/20 09:00 02/04/20 08:58 Plavix PO 75 mg DAILY SAYRA Administration Escitalopram Oxalate 10 mg 02/04/20 09:00 02/04/20 08:58 Lexapro PO 10 mg DAILY SAYRA Administration Furosemide 40 mg 02/03/20 15:30 02/04/20 03:34 Lasix IVP 40 mg Q12H SAYRA Administration Hydralazine HCl 100 mg 02/03/20 15:00 02/04/20 08:58 Apresoline PO 100 mg TID SAYRA Administration Piperacillin Sod/Tazobactam 50 mls @ 12.5 mls/hr 02/03/20 18:00 02/04/20 09:43 Sod 3.375 gm/ Sodium Chloride IV Infused Q12H SAYRA Infusion Protocol Isosorbide Mononitrate 60 mg 02/04/20 06:00 02/04/20 05:43 Imdur PO 60 mg QAM SAYRA Administration Labetalol HCl 100 mg 02/03/20 18:00 02/04/20 04:15 Trandate PO 100 mg BID SAYRA Administration Levothyroxine Sodium 25 mcg 02/04/20 09:00 02/04/20 08:58 Synthroid PO 25 mcg DAILY SAYRA Administration Metoprolol Tartrate 50 mg 02/03/20 18:00 02/04/20 08:58 Lopressor PO 50 mg BID SAYRA Administration Pantoprazole Sodium 40 mg 02/04/20 06:00 02/04/20 05:43 Protonix PO 40 mg QAM SAYRA Administration Terazosin HCl 10 mg 02/03/20 18:00 02/04/20 08:58 Hytrin PO 10 mg BID SAYRA Administration PFSH Acute PFSH: Medical History (Updated 02/04/20 @ 06:31 by Parish White DO) Anemia ASHD (arteriosclerotic heart disease) Carotid stenosis, bilateral Chronic back pain Chronic kidney disease (CKD) Congestive 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 COVID-19 virus infection Currently on baseline oxygen requirement CVA (cerebral vascular accident) Diabetes 1.5, managed as type 2 Diabetic neuropathy Dyslipidemia Edema Essential hypertension Myocardial infarction KAITLYNN (obstructive sleep apnea) Surgical History Previous back surgery S/P angioplasty with stent S/P cataract extraction Family History Mother CAD (coronary artery disease) Stroke Sister Hypertension Social History Smoking and tobacco status: former smoker Alcohol intake: never Household members: spouse Marital status: service: Yes branch: [employer] Current occupational status: employed Current gender identity: Male Vitals/I&O/Wt Last Vital Signs Temp 97.7 F 02/04/20 11:36 Pulse 78 02/04/20 11:42 Resp 17 02/04/20 11:42 BP 162/71 02/04/20 11:36 Pulse Ox 96 02/04/20 11:42 02/03/20 02/04/20 02/04/20 22:59 06:59 14:59 Intake Total 300 / 2372.5 1000 / 3372.5 2337.5 / 2337.5 Output Total 350 / 1350 1550 / 2900 350 / 350 Balance -50 / 1022.5 -550 / 472.5 1987.5 / 1986.5 Weight last 48 hrs Weight 100.652 kg Weight 100.652 kg Weight 101.196 kg Physical Exam Narrative: EXAM NARRATIVE: Constitutional: Awake, conversant HEENT: Wet mucosa, no jvp, non icteric Lungs: Bilaterally clear without discernible wheeze, rales in all lung zones CVS: S1 S2, no murmurs Abdo: Soft, BS ok Ext 4: Global edema, peripheral perfusion with no cyanosis Neurological: Grossly non-focal Data Micro: Micro: Microbiology 02/04/20 05:50 MRSA Culture - Fin al Nose 02/03/20 16:40 Blood Culture - Pr eliminary Blood SPECIMEN [facility] 02/03/20 16:50 Blood Culture - Pr eliminary Blood SPECIMEN [facility] A&P Additional A&P Information 1. 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 - CKD likely to be due to renovascular disease, arterionephrosclerosis - given hypervolemia I agree with diuresis - Strict Is and Os with view to possible up-titration of diuretics depending on diuretic effect - no acute indication for dialysis at this time but renal function needs to be followed very closely. - avoid the usuals - No need for further imaging - Check CPK, uric acid 2. Hypoglycemia - Insulin adjustments per Dr Saul 3. 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
[2020-02-04 16:59] LABS: Glucose Point of Care 398 mg/dL (70-110)
[2020-02-04] MEDS: apixaban 5 mg Tablet PO (18:30)
[2020-02-04] MEDS: atorvastatin 40 mg Tablet 20 MG PO (18:31)
[2020-02-04 22:32] LABS: Glucose Point of Care 512 mg/dL (70-110)
[2020-02-04 22:32] LABS: Glucose Point of Care 509 mg/dL (70-110)
[2020-02-04] MEDS: sodium chloride 0.9% 1,000 ML 999 ML IV (22:32)
[2020-02-04 23:53] LABS: Glucose Point of Care 497 mg/dL (70-110)
[2020-02-05] VITALS (16 sets, daily range): BP systolic 107–176; BP diastolic 51–89; PULSE 67–76; RESP 14–19; TEMP 36.5–37.1; O2SAT 94–98; BMI 33.7
[2020-02-05] MEDS: albuterol 8 gm MDI 2 PUFF INHALATION ×5 (01:08→15:47)
[2020-02-05 04:34] LABS: Glucose Point of Care 351 mg/dL (70-110)
[2020-02-05] MEDS: FUROsemide 10 mg/mL SDV 4mL 40 MG IVP ×2 (04:36→15:20)
[2020-02-05] MEDS: piperacillin-tazobactam 3.375 GM in sodium chloride 0.9% (plus) 50 ML IV ×2 (06:16→18:14)
[2020-02-05] MEDS: apixaban 5 mg Tablet PO (06:17)
[2020-02-05] MEDS: isosorbide mononitrate ER 60 mg Tablet PO (06:17)
[2020-02-05] MEDS: pantoprazole DR 40 mg Tablet PO (06:17)
[2020-02-05 06:39] LABS: Glucose Point of Care 358 mg/dL (70-110)
--- NOTE | 2020-02-05 08:37 | PM.PN ---
Subjective Subjective: Interval history: no new complaints today. Blood sugar now ranging ~500s range from being hypoglycemic on admission. 02 requirements remain stable at 4lpm. 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 Data : 02/05/20 12:04 02/05/20 12:04 Micro: Microbiology 02/03/20 16:40 Blood Culture - Preliminary Blood NEGATIVE TO DATE 02/03/20 16:50 Blood Culture - Preliminary Blood NEGATIVE TO DATE 02/04/20 05:50 MRSA Culture - Final Nose A&P Assessment and plan (1) Hypoglycemia: Status: Acute (2) Chronic kidney disease (CKD): Status: Chronic Qualifiers: Chronic kidney disease stage: stage 3 (moderate) Chronic kidney disease stage 3 subtype: stage 3b (GFR 30-44) Qualified Code(s): N18.32 - Chronic kidney disease, stage 3b (3) Carotid stenosis, bilateral: Status: Acute (4) ASHD (arteriosclerotic heart disease): Status: Chronic (5) Diabetes 1.5, managed as type 2: Status: Chronic (6) CHF exacerbation: Status: Acute Qualifiers: Heart failure type: diastolic Qualified Code(s): I50.33 - Acute on chronic diastolic (congestive) heart failure (7) IVAN (acute kidney injury): Status: Acute Additional A&P Information #Hypoglycemia Now resolved. Blood sugar now ranging at ~500. Change to high dose insulin sliding scale and start lantus 15U overnight. #Acute on chronic CHF exacerbation: Patient's chest x-ray shows today mild to moderate progression of bilateral pulmonary infiltrates, which could represent either worsening COVID-19 pneumonia versus fluid. Some improvement in infiltrates between 02/02 to 02/03 may be improving fluid. No other signs of worsening of pneumonia. Oxygen requirements remain at baseline. PO2 FiO2 ratio not consistent with ARDS on patient's ABG, downtrending inflammatory markers including D dimer. BNP not significantly elevated at this time. Worsening edema may be related to renal insufficiency. Lasix 40mg iv q12h. check I/o, daily weight. Renal consult For possibility of postviral staphylococcal pneumonia, keeping covered with empiric antibiotics for now with Zosyn. Discontinued vancomycin as MRSA PCR from the nares returned negative. Negative influenza antigen. Check Covid PCR. If negative patient can come off of isolation. Remains pending Nephorlogy consult to assist with diuretic regimen choice and IVAN on CKD # Blood cx from 01/24 with S. aureus, 01/24 and 01/28 with CoNs. Unclear significance. CoNs could be contaminants but concerned about S. aureus on 01/24 blood cx. Blood cx from 02/02 remains negative to date, less concerning for sepsis at this time. # recent COVID 19 ARDS Cannot exclude post COVID complications such as PE, bronchiolitis especially with worsening infiltrates. Change lovenox to Eliquis 5mg po BID, umnable to get CTA due to kidney function. N/M scan N/a over the weekend Methylprednisone 30mg q12h--> change to prednisone 40mg Albuterol inhalation q4h scheduled # Anemia, likely related to CKD . Currently stable Full code DVT ppx: eliquis currently Attestations Medical Necessity Statement*: needs optimal blood sugar control, now with hyperglycemia, w/up of wrosening renal function Coding Level of Care Code Acute Primary Operator for Chg Fwd Diagnoses Hypoglycemia E16.2 Chronic kidney disease (CKD) N18.32 Chronic kidney disease stage: stage 3 (moderate) Chronic kidney disease stage 3 subtype: stage 3b (GFR 30-44) Carotid stenosis, bilateral I65.23 ASHD (arteriosclerotic heart disease) I25.10 Diabetes 1.5, managed as type 2 E13.9 CHF exacerbation I50.33 Heart failure type: diastolic IVAN (acute kidney injury) N17.9
[2020-02-05] MEDS: terazosin 5 mg Capsule 10 MG PO ×2 (10:28→18:14)
[2020-02-05] MEDS: hyDRALAzine 50 mg Tablet 100 MG PO ×3 (10:28→21:27)
[2020-02-05] MEDS: allopurinol 300 mg Tablet PO (10:28)
[2020-02-05] MEDS: levothyroxine 25 mcg Tablet PO (10:28)
[2020-02-05] MEDS: metoprolol tartrate 50 mg Tablet PO ×2 (10:28→18:14)
[2020-02-05] MEDS: clopidogrel 75 mg Tablet PO (10:29)
[2020-02-05] MEDS: labetalol 200 mg Tablet 100 MG PO ×2 (10:29→18:14)
[2020-02-05] MEDS: escitalopram 10 mg Tablet PO (10:29)
[2020-02-05 11:14] LABS: Glucose Point of Care 471 mg/dL (70-110)
[2020-02-05 12:30] LABS: Basophils % 0.1 %; Hematocrit 27.7 % (42.0-52.0); Hemoglobin 8.6 g/dL (11.7-16.6); Lymphocytes # 0.2 10^3/uL (0.8-4.8); Lymphocytes % 0.9 %; Mean Corpuscular Hemoglobin 27.7 pg (28.0-34.0); Mean Corpuscular Volume 89.1 fL (80-94); Mean Platelet Volume 11.1 fL (7.4-10.4); Monocytes # 0.2 10^3/uL (0.2-0.9); Monocytes % 1.3 %; Neutrophils # 15.68 10^3/uL (1.8-7.7); Neutrophils % 96.2 %; Nucleated Red Blood Cells % 0 %; Platelet Count 197 10^3/cmm (130-400); Red Blood Count 3.11 10^6/uL (4.1-5.3); Red Cell Distribution Width 16.2 % (12.1-15.1); White Blood Count 16.3 10^3/uL (4.0-10.0)
[2020-02-05 12:53] LABS: Alanine Aminotransferase 23 U/L (0-41); Albumin Level 2.9 g/dL (3.5-5.2); Alkaline Phosphatase 94 IU/L (40-130); Anion Gap 19.3 (5-19); Aspartate Amino Transferase 11 U/L (0-40); Calcium 8.4 mg/dL (8.5-10.5); Carbon Dioxide 19 mmol/L (22-29); Chloride 104 mmol/L (98-107); Globulin 2.7 g/dL (1.3-4.6); Glomerular Filtration Rate 17.5 mL/min (90-130); Potassium 4.3 mmol/L (3.5-5.1); Sodium 138 mmol/L (136-145); Total Bilirubin 0.4 mg/dL (0.15-1.2); Total Protein 5.6 g/dL (6.6-8.7)
[2020-02-05 13:07] LABS: Osmolality Calculated 352 mOsm/kg (285-295)
[2020-02-05 13:08] LABS: Blood Urea Nitrogen 134 mg/dL (8-23)
[2020-02-05 13:09] LABS: Glucose 503 mg/dL (65-115)
[2020-02-05] MEDS: morphine 4 mg/mL SDV 1 mL 2 MG IVP (16:09)
--- NOTE | 2020-02-05 16:21 | P.PN_ITS ---
Subjective Subjective: Interval history: I am seeing him in follow up for his renal failure. No chest pain or shortness of breath Medications: Reviewed: Yes Vitals/I&O/Wt Last Vital Signs Temp 98.0 F 02/05/20 16:00 Pulse 68 02/05/20 16:00 Resp 18 02/05/20 16:00 BP 107/51 02/05/20 16:00 Pulse Ox 95 02/05/20 16:00 02/05/20 02/05/20 02/05/20 06:59 14:59 22:59 Intake Total 290 / 290 Output Total 950 / 2450 550 / 550 200 / 750 Balance -950 / 237.5 -260 / -260 -200 / -460 Weight last 48 hrs Weight 100.652 kg Weight 100.652 kg Weight 100.652 kg Physical Exam Const: COMMON NORMALS: no acute distress and patient oriented x3 GENERAL APPEARANCE: cooperative and comfortable Resp: AUSCULTATION: crackles Cardio: COMMON NORMALS: S1 normal heart sound present and S2 normal heart sound present HEART SOUNDS: S1 normal heart sound present and S2 normal heart sound present GI: AUSCULTATION: Yes normoactive bowel sounds Extremity: GENERAL: Yes edema Neuro: COMMON NORMALS: patient oriented x3 Skin: COMMON NORMALS: no rashes or lesions noted GENERAL SKIN EXAM: no rashes or lesions noted Data : 02/05/20 12:04 02/05/20 12:04 Micro: Microbiology 02/04/20 10:08 Urine Culture - Preliminary Urine,Clean Catch 02/03/20 16:40 Blood Culture - Preliminary Blood NEGATIVE TO DATE 02/03/20 16:50 Blood Culture - Preliminary Blood NEGATIVE TO DATE A&P Assessment and plan (1) Essential hypertension: BP under control Status: Acute (2) CHF exacerbation: Continue diuretics as he is responding well. Chuy hose or chance wrap on legs during daytime Status: Acute Qualifiers: Heart failure type: diastolic Qualified Code(s): I50.33 - Acute on chronic diastolic (congestive) heart failure (3) Acute kidney injury superimposed on CKD: Kidney function staying stable, monitor BUN level closely, no indication for dialysis yet Status: Acute (4) Anemia: Follow hb Status: Acute (5) Acidosis: If persistent, will add sodium bicarbonate supplements Status: Acute Attestations Medical Necessity Statement*: Renal failure Coding Level of Care Code Acute Supervisor Inspection And Testing for Chg Fwd Diagnoses Essential hypertension I10 CHF exacerbation I50.33 Heart failure type: diastolic Acute kidney injury superimposed on CKD N17.9; N18.9 Anemia D64.9 Acidosis E87.2
[2020-02-05 16:50] LABS: Glucose Point of Care 375 mg/dL (70-110)
[2020-02-05] MEDS: atorvastatin 40 mg Tablet 20 MG PO (18:15)
[2020-02-05 20:52] LABS: Glucose Point of Care 407 mg/dL (70-110)
[2020-02-05 20:52] LABS: Glucose Point of Care 419 mg/dL (70-110)
[2020-02-05] MEDS: insulin glargine 100 units/1 mL 15 UNIT SUBCUT (21:28)
[2020-02-06] VITALS (8 sets, daily range): BP systolic 134–155; BP diastolic 66–72; PULSE 61–78; RESP 16–18; TEMP 36.6; O2SAT 96–97
[2020-02-06] MEDS: FUROsemide 10 mg/mL SDV 4mL 40 MG IVP ×2 (03:23→15:31)
[2020-02-06 03:54] LABS: Basophils % 0.1 %; Hematocrit 26.7 % (42.0-52.0); Hemoglobin 8.4 g/dL (11.7-16.6); Lymphocytes # 0.2 10^3/uL (0.8-4.8); Lymphocytes % 1.4 %; Mean Corpuscular HGB Conc 31.5 g/dL (30.0-36.0); Mean Corpuscular Hemoglobin 27.8 pg (28.0-34.0); Mean Corpuscular Volume 88.4 fL (80-94); Monocytes % 5.9 %; Neutrophils # 14.81 10^3/uL (1.8-7.7); Neutrophils % 91.8 %; Nucleated Red Blood Cells % 0 %; Platelet Count 181 10^3/cmm (130-400); Red Blood Count 3.02 10^6/uL (4.1-5.3); White Blood Count 16.1 10^3/uL (4.0-10.0)
[2020-02-06 04:23] LABS: Alanine Aminotransferase 20 U/L (0-41); Albumin Level 2.5 g/dL (3.5-5.2); Alkaline Phosphatase 86 IU/L (40-130); Anion Gap 18.5 (5-19); Aspartate Amino Transferase 11 U/L (0-40); Calcium 8.6 mg/dL (8.5-10.5); Carbon Dioxide 19 mmol/L (22-29); Chloride 103 mmol/L (98-107); Globulin 2.8 g/dL (1.3-4.6); Glomerular Filtration Rate 13.8 mL/min (90-130); Glucose 271 mg/dL (65-115); Potassium 4.5 mmol/L (3.5-5.1); Sodium 136 mmol/L (136-145); Total Bilirubin 0.4 mg/dL (0.15-1.2); Total Protein 5.3 g/dL (6.6-8.7)
[2020-02-06 04:44] LABS: Osmolality Calculated 340 mOsm/kg (285-295)
[2020-02-06 04:45] LABS: Blood Urea Nitrogen 147 mg/dL (8-23)
[2020-02-06] MEDS: isosorbide mononitrate ER 60 mg Tablet PO (05:36)
[2020-02-06] MEDS: piperacillin-tazobactam 3.375 GM in sodium chloride 0.9% (plus) 50 ML IV ×2 (05:36→17:42)
[2020-02-06] MEDS: pantoprazole DR 40 mg Tablet PO (05:36)
[2020-02-06] MEDS: albuterol 8 gm MDI 2 PUFF INHALATION ×4 (06:51→12:00)
[2020-02-06 07:09] LABS: Glucose Point of Care 297 mg/dL (70-110)
--- NOTE | 2020-02-06 08:44 | PM.PN ---
Subjective Subjective: Interval history: cr worsened today to 4.3. Continues to pass urine. 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 Const: COMMON NORMALS: no acute distress, average body habitus, patient oriented x3, no limitations, healthy appearing, alert and well nourished HENMT: COMMON NORMALS: normocephalic and atraumatic HEAD & SCALP: normocephalic and atraumatic Eye: COMMON NORMALS: Equal, round and reactive pupils present, EOMs intact bilaterally, conjunctivae normal and no scleral icterus CONJUNCTIVA: Yes conjunctivae normal PUPIL: Yes Equal, round and reactive pupils present Neck/C-Spine: COMMON NORMALS: no JVD Resp: COMMON NORMALS: normal respiratory effort, No retractions, No use of accessory muscles, clear to auscultation bilaterally and percussion normal AUSCULTATION: clear to auscultation bilaterally PERCUSSION: percussion normal Cardio: COMMON NORMALS: no JVD, regular rate, regular rhythm, S1 normal heart sound present, S2 normal heart sound present, No gallops present (Cardio), No clicks present (Cardio), No murmurs present (Cardio), No rub (Cardio) and Peripheral pulses 2+ throughout RATE: regular rate RHYTHM: regular rhythm HEART SOUNDS: S1 normal heart sound present and S2 normal heart sound present PERIPHERAL PULSES: Peripheral pulses 2+ throughout GI: COMMON NORMALS: Normal to inspection, nondistended, normoactive bowel sounds present, Soft to palpation, non-tender, No hepatosplenomegaly present, no masses and no bruits PALPATION: Yes Soft to palpation and Yes No hepatosplenomegaly present Extremity: COMMON NORMALS: normal to inspection, full ROM, capillary refill normal, no joint enlargement, no clubbing, cyanosis or edema, no calf tenderness and no pedal edema Neuro: COMMON NORMALS: patient oriented x3, CN's II-XII intact bilaterally, moves all extremities, no focal motor deficits, no sensory deficits noted, deep tendon reflexes 2+ bilaterally and gait normal SENSORIUM/ORIENTATION: Yes alert Psych: COMMON NORMALS: mental status grossly normal, Normal thought process present, cooperative, normal affect, speech normal, activity/motor behavior normal, denies hallucinations, denies homicidal ideation and denies suicidal ideation SPEECH: Yes normal speech THOUGHT PROCESS: Normal thought process present Skin: COMMON NORMALS: no rashes or lesions noted, no wounds, turgor normal, no jaundice, no petechiae and no mottling GENERAL SKIN EXAM: no rashes or lesions noted and turgor normal Data : 02/06/20 03:20 02/06/20 03:20 Micro: Microbiology 02/04/20 10:08 Urine Culture - Preliminary Urine,Clean Catch A&P Assessment and plan (1) Hypoglycemia: Status: Acute (2) Chronic kidney disease (CKD): Status: Chronic Qualifiers: Chronic kidney disease stage: stage 3 (moderate) Chronic kidney disease stage 3 subtype: stage 3b (GFR 30-44) Qualified Code(s): N18.32 - Chronic kidney disease, stage 3b (3) Carotid stenosis, bilateral: Status: Acute (4) ASHD (arteriosclerotic heart disease): Status: Chronic (5) Diabetes 1.5, managed as type 2: Status: Chronic (6) CHF exacerbation: Status: Acute Qualifiers: Heart failure type: diastolic Qualified Code(s): I50.33 - Acute on chronic diastolic (congestive) heart failure (7) IVAN (acute kidney injury): Status: Acute Additional A&P Information #Hypoglycemia Now resolved. Blood sugar now better controlled. Was trending towards hyperglycemia yesterday, improved FS today with starting 15U lantus and high dose slisding scale, continue to adjust per fingersticks. #Acute on chronic CHF exacerbation: Patient's chest x-ray shows today mild to moderate progression of bilateral pulmonary infiltrates, which could represent either worsening COVID-19 pneumonia versus fluid. Some improvement in infiltrates between 02/02 to 02/03 may be improving fluid. No other signs of worsening of pneumonia. Oxygen requirements remain at baseline. PO2 FiO2 ratio not consistent with ARDS on patient's ABG, downtrending inflammatory markers including D dimer. BNP not significantly elevated at this time. # IVAN on CKD Worsening edema may be related to renal insufficiency. Appreciate renal consult CR continues to increase today to 4.3, still making urine CV renal doppler without evidence of renal artery stenosis # For possibility of postviral staphylococcal pneumonia, keeping covered with empiric antibiotics for now with Zosyn. Discontinued vancomycin as MRSA PCR from the nares returned negative. Negative influenza antigen. COVID PCR positive # Blood cx from 01/24 with S. aureus, 01/24 and 01/28 with CoNs. Unclear significance. CoNs could be contaminants but concerned about S. aureus on 01/24 blood cx. Blood cx from 02/02 remains negative to date, less concerning for sepsis at this time. # recent COVID 19 ARDS Cannot exclude post COVID complications such as PE, bronchiolitis especially with worsening infiltrates. However respiratory status appears to be stable, less likely given overall respiratory stability Reduce prednisone further to 20mg po daily Discontinue Eliquis as lower concern for PE at this time and patient developing multiple bruises at iv stick sites. Albuterol inhalation q4h scheduled # Anemia, likely related to CKD . 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
[2020-02-06] MEDS: clopidogrel 75 mg Tablet PO (09:12)
[2020-02-06] MEDS: metoprolol tartrate 50 mg Tablet PO ×2 (09:12→17:42)
[2020-02-06] MEDS: levothyroxine 25 mcg Tablet PO (09:12)
[2020-02-06] MEDS: hyDRALAzine 50 mg Tablet 100 MG PO ×3 (09:12→21:33)
[2020-02-06] MEDS: labetalol 200 mg Tablet 100 MG PO ×2 (09:12→17:43)
[2020-02-06] MEDS: allopurinol 300 mg Tablet PO (09:12)
[2020-02-06] MEDS: predniSONE 20 mg Tablet 40 MG PO (09:12)
[2020-02-06] MEDS: escitalopram 10 mg Tablet PO (09:12)
[2020-02-06] MEDS: terazosin 5 mg Capsule 10 MG PO ×2 (09:12→17:42)
--- NOTE | 2020-02-06 10:52 | PC.SOCIAL ---
Pg 2 IMM Explained to pt Pg 2 IMM via phone. No questions voiced. Provided pt a copy. Signed, dated, & timed copy for the chart.
[2020-02-06 11:13] LABS: Glucose Point of Care 318 mg/dL (70-110)
--- NOTE | 2020-02-06 15:43 | PM.PN ---
Subjective Subjective: Interval history: I am seeing him in follow up for his renal failure. No nausea or vomiting. No shortness of breath Medications: Reviewed: Yes Vitals/I&O/Wt Last Vital Signs Temp 97.9 F 02/06/20 11:36 Pulse 74 02/06/20 12:41 Resp 18 02/06/20 12:41 BP 143/66 02/06/20 11:36 Pulse Ox 96 02/06/20 12:41 02/06/20 02/06/20 02/06/20 06:59 14:59 22:59 Intake Total 240 / 240 Output Total / 1974 900 / 900 Balance -875 / -1395 -660 / -660 Weight last 48 hrs Weight 101.469 kg Weight 100.652 kg Physical Exam Const: COMMON NORMALS: no acute distress and patient oriented x3 GENERAL APPEARANCE: cooperative and comfortable Resp: AUSCULTATION: rales Cardio: COMMON NORMALS: S1 normal heart sound present and S2 normal heart sound present HEART SOUNDS: S1 normal heart sound present and S2 normal heart sound present GI: AUSCULTATION: Yes normoactive bowel sounds Extremity: GENERAL: Yes edema Neuro: COMMON NORMALS: patient oriented x3 Skin: COMMON NORMALS: no rashes or lesions noted GENERAL SKIN EXAM: no rashes or lesions noted Data : 02/06/20 03:20 02/06/20 03:20 Micro: Microbiology 02/04/20 10:08 Urine Culture - Final Urine,Clean Catch A&P Assessment and plan (1) Acute kidney injury superimposed on CKD: Kidney function getting worse, will consider dialysis on mon if BUN continues to go up Status: Acute (2) Anemia: Follow hb Status: Acute (3) Acidosis: Will add sodium bicarbonate supplements if persistent Status: Acute (4) CHF exacerbation: Continue diuretics Status: Acute Qualifiers: Heart failure type: diastolic Qualified Code(s): I50.33 - Acute on chronic diastolic (congestive) heart failure (5) Essential hypertension: BP under control Status: Acute Attestations Medical Necessity Statement*: Renal failure Coding Level of Care Code Acute Director Diversity for [facility] Fwd Diagnoses Acute kidney injury superimposed on CKD N17.9; N18.9 Anemia D64.9 Acidosis E87.2 CHF exacerbation I50.33 Heart failure type: diastolic Essential hypertension I10
[2020-02-06 16:46] LABS: Coronavirus Lab Test PTC Positive
[2020-02-06 16:53] LABS: Glucose Point of Care 232 mg/dL (70-110)
[2020-02-06] MEDS: atorvastatin 40 mg Tablet 20 MG PO (17:43)
[2020-02-06 20:45] LABS: Glucose Point of Care 206 mg/dL (70-110)
[2020-02-06] MEDS: heparin 5,000 unit/mL INJ 1 mL 5000 UNIT SUBCUT (21:32)
[2020-02-06] MEDS: insulin glargine 100 units/1 mL 15 UNIT SUBCUT (21:34)
[2020-02-07] VITALS (14 sets, daily range): BP systolic 139–163; BP diastolic 65–79; PULSE 69–82; RESP 16–20; TEMP 36.4–37.2; O2SAT 94–98
[2020-02-07] MEDS: albuterol 8 gm MDI 2 PUFF INHALATION ×6 (00:37→23:50)
[2020-02-07 04:08] LABS: Basophils % 0.1 %; Hematocrit 28.1 % (42.0-52.0); Hemoglobin 8.5 g/dL (11.7-16.6); Lymphocytes # 0.2 10^3/uL (0.8-4.8); Lymphocytes % 1.4 %; Mean Corpuscular HGB Conc 30.2 g/dL (30.0-36.0); Mean Corpuscular Hemoglobin 27.9 pg (28.0-34.0); Mean Corpuscular Volume 92.1 fL (80-94); Mean Platelet Volume 11.1 fL (7.4-10.4); Monocytes # 0.5 10^3/uL (0.2-0.9); Neutrophils % 93.5 %; Nucleated Red Blood Cells % 0 %; Platelet Count 147 10^3/cmm (130-400); Red Blood Count 3.05 10^6/uL (4.1-5.3); Red Cell Distribution Width 16.1 % (12.1-15.1)
[2020-02-07] MEDS: FUROsemide 10 mg/mL SDV 4mL 40 MG IVP (06:06)
[2020-02-07] MEDS: piperacillin-tazobactam 3.375 GM in sodium chloride 0.9% (plus) 50 ML IV ×2 (06:07→18:18)
[2020-02-07] MEDS: pantoprazole DR 40 mg Tablet PO (06:07)
[2020-02-07] MEDS: isosorbide mononitrate ER 60 mg Tablet PO (06:07)
[2020-02-07 06:46] LABS: Glucose Point of Care 247 mg/dL (70-110)
[2020-02-07] MEDS: allopurinol 300 mg Tablet PO (08:33)
[2020-02-07] MEDS: terazosin 5 mg Capsule 10 MG PO ×2 (08:33→18:20)
[2020-02-07] MEDS: predniSONE 20 mg Tablet PO (08:34)
[2020-02-07] MEDS: metoprolol tartrate 50 mg Tablet PO ×2 (08:34→18:20)
[2020-02-07] MEDS: hyDRALAzine 50 mg Tablet 100 MG PO ×3 (08:35→22:27)
[2020-02-07] MEDS: clopidogrel 75 mg Tablet PO (08:35)
[2020-02-07] MEDS: escitalopram 10 mg Tablet PO (08:35)
[2020-02-07] MEDS: labetalol 200 mg Tablet 100 MG PO ×2 (08:35→18:20)
[2020-02-07] MEDS: levothyroxine 25 mcg Tablet PO (08:35)
[2020-02-07] MEDS: heparin 5,000 unit/mL INJ 1 mL 5000 UNIT SUBCUT ×2 (08:37→22:27)
[2020-02-07 09:50] LABS: Alanine Aminotransferase 19 U/L (0-41); Albumin Level 2.8 g/dL (3.5-5.2); Alkaline Phosphatase 85 IU/L (40-130); Anion Gap 18.6 (5-19); Aspartate Amino Transferase 11 U/L (0-40); Calcium 8.5 mg/dL (8.5-10.5); Carbon Dioxide 20 mmol/L (22-29); Chloride 107 mmol/L (98-107); Globulin 2.1 g/dL (1.3-4.6); Glomerular Filtration Rate 13.1 mL/min (90-130); Glucose 248 mg/dL (65-115); Potassium 4.6 mmol/L (3.5-5.1); Sodium 141 mmol/L (136-145); Total Bilirubin 0.4 mg/dL (0.15-1.2); Total Protein 4.9 g/dL (6.6-8.7)
[2020-02-07 09:58] LABS: Blood Urea Nitrogen 150 mg/dL (8-23); Osmolality Calculated 349 mOsm/kg (285-295)
--- NOTE | 2020-02-07 09:58 | PC.NURSE ---
Critical result received from lab (BUN = 150); result relayed to primary nurse, Norma.
[2020-02-07 11:25] LABS: Glucose Point of Care 312 mg/dL (70-110)
--- NOTE | 2020-02-07 12:28 | PM.PN ---
Subjective Subjective: Interval history: Feels ok, creatinine noted to be higher, but urine output is maintained No uremic Sx. Edema is vastly improved Eating and drinking ok Medications: Reviewed: Yes Vitals/I&O/Wt Last Vital Signs Temp 98.7 F 02/07/20 08:00 Pulse 71 02/07/20 11:58 Resp 16 02/07/20 11:58 BP 160/79 02/07/20 08:00 Pulse Ox 98 02/07/20 11:58 02/06/20 02/07/20 02/07/20 22:59 06:59 14:59 Intake Total 50 / 340 150 / 490 230 / 230 Output Total 700 / 1600 800 / 2400 250 / 250 Balance -650 / -1260 -650 / -1910 -20 Weight last 48 hrs Weight 100.38 kg Weight 101.469 kg Physical Exam Narrative: EXAM NARRATIVE: Constitutional: Awake, conversant HEENT: Wet mucosa, no jvp, non icteric Lungs: Bilaterally clear without discernible wheeze, rales in all lung zones CVS: S1 S2, no murmurs Abdo: Soft, BS ok Ext 4: Global edema, peripheral perfusion with no cyanosis Neurological: Grossly non-focal Data : 02/07/20 04:01 02/07/20 04:01 Micro: Microbiology 02/04/20 10:08 Urine Culture - Final Urine,Clean Catch A&P Additional A&P Information 1. 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 Hypoglycemia - Insulin adjustments per Dr Saul 3. Pneumonia - Recent COVID and coag neg staph bacteremia - Abx coverage with Vanco and Zosyn 4. OOB to tangela, PT/OT gonzales Catalan MD Nephrology [phone] Attestations Medical Necessity Statement*: evsal for IVAN Coding Level of Care Code Acute Business Intelligence Administrator for Chg Fwd
--- NOTE | 2020-02-07 14:04 | P.PN_ITS ---
Subjective Subjective: Interval history: He states he is doing all right. Says he is not short of breath. Denies any chest pain or pressure. Denies any presyncope or dizziness. No headache, no nausea vomiting or diarrhea. Has been putting out urine. Vitals/I&O/Wt Last Vital Signs Temp 98.9 F 02/07/20 12:00 Pulse 71 02/07/20 12:00 Resp 18 02/07/20 12:00 BP 139/70 02/07/20 12:00 Pulse Ox 96 02/07/20 12:00 02/06/20 02/07/20 02/07/20 22:59 06:59 14:59 Intake Total 50 / 340 150 / 490 230 / 230 Output Total 700 / 1600 800 / 2400 250 / 250 Balance -650 / -1260 -650 / -1910 -20 / -20 Weight last 48 hrs Weight 100.38 kg Weight 101.469 kg Physical Exam Const: COMMON NORMALS: no acute distress, patient oriented x3 and alert ORIENTATION/CONSCIOUSNESS: Yes awake OTHER: Pleasant, conversant. Comfortable. HENMT: COMMON NORMALS: oropharynx normal Neck/C-Spine: COMMON NORMALS: no JVD Resp: COMMON NORMALS: normal respiratory effort and clear to auscultation bilaterally AUSCULTATION: clear to auscultation bilaterally Cardio: COMMON NORMALS: no JVD, regular rhythm, S1 normal heart sound present, S2 normal heart sound present and No murmurs present (Cardio) RHYTHM: regular rhythm HEART SOUNDS: S1 normal heart sound present and S2 normal heart sound present GI: COMMON NORMALS: Normal to inspection, nondistended, normoactive bowel sounds present, Soft to palpation and non-tender PALPATION: Yes Soft to palpa tion Extremity: COMMON NORMALS: no joint enlargement GENERAL: Yes edema (1+) Neuro: COMMON NORMALS: patient oriented x3 and moves all extremities SENSORIUM/ORIENTATION: Yes alert Skin: COMMON NORMALS: no rashes or lesions noted GENERAL SKIN EXAM: no rashes or lesions noted Data : 02/07/20 04:01 02/07/20 04:01 Micro: Microbiology 02/04/20 10:08 Urine Culture - Final Urine,Clean Catch A&P Assessment and plan (1) CHF exacerbation: Currently urine output is good. Renal function appears stabilized. Appreciate nephrology recommendations. Hold off diuretic for today. Continue to monitor WENDIE, renal function, volume status., Oxygenation. Change to cardiac diet. Status: Acute Qualifiers: Heart failure type: diastolic Qualified Code(s): I50.33 - Acute on chronic diastolic (congestive) heart failure (2) IVAN (acute kidney injury): Appreciate nephrology recommendations. At this time not yet requiring hemodialysis. Discussed with patient. CV renal doppler without evidence of renal artery stenosis Status: Acute (3) Pneumonia: Possible superimposed bacterial pneumonia versus persistence of COVID-19 pneumonia. However, clinically he has been doing well. He is on near baseline oxygenation. Denies shortness of breath. For now continue critically with Zosyn. Negative influenza antigen. COVID PCR positive Status: Acute (4) Hypoglycemia: Resolved Status: Acute (5) Chronic kidney disease (CKD): Status: Chronic Qualifiers: Chronic kidney disease stage: stage 3 (moderate) Chronic kidney disease stage 3 subtype: stage 3b (GFR 30-44) Qualified Code(s): N18.32 - Chronic kidney disease, stage 3b (6) Carotid stenosis, bilateral: Status: Acute (7) ASHD (arteriosclerotic heart disease): Status: Chronic (8) Diabetes 1.5, managed as type 2: Glucose ranging 200-300s. Increase Lantus dose to 18 units. Sliding scale insulin. Continue consistent carbohydrate diet. Status: Chronic Additional A&P Information Anemia: chronic w CKD. Check occult blood stool. Blood cx from 01/24 with S. aureus, 01/24 and 01/28 with CoNs. Unclear si gnificance. CoNs could be contaminants but concerned about S. aureus on 01/24 blood cx. Blood cx from 02/02 remains negative to date, less concerning for sepsis at this time. Recent COVID 19 ARDS: Has been weaning off prednisone. Cannot exclude post COVID complications such as PE, bronchiolitis especially with worsening infiltrates. These appear to be less likely. Respiratory status appears to be stable, less likely given overall respiratory stability. No tachycardia. Subjectively is doing well. Eliquis was discontinued as lower concern for PE at this time and patient developing multiple bruises at iv stick sites. Also with noted anemia. Continue albuterol inhalation q4h scheduled Full code DVT ppx: heparin Attestations Medical Necessity Statement*: Continue admission for assessment of management of CHF, in the setting of worsening renal function with acute kidney injury on chronic kidney disease, recent COVID-19 pneumonia. Coding Level of Care Code Acute Locker Operator for Chg 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 Diagnoses CHF exacerbation I50.33 Heart failure type: diastolic IVAN (acute kidney injury) N17.9 Pneumonia J18.9 Hypoglycemia E16.2 Chronic kidney disease (CKD) N18.32 Chronic kidney disease stage: stage 3 (moderate) Chronic kidney disease stage 3 subtype: stage 3b (GFR 30-44) Carotid stenosis, bilateral I65.23 ASHD (arteriosclerotic heart disease) I25.10 Diabetes 1.5, managed as type 2 E13.9
[2020-02-07 16:40] LABS: Glucose Point of Care 271 mg/dL (70-110)
[2020-02-07] MEDS: atorvastatin 40 mg Tablet 20 MG PO (18:19)
--- NOTE | 2020-02-07 19:19 | PC.NURSE ---
Report to Zhang MOJICA at this time.
[2020-02-07 21:32] LABS: Glucose Point of Care 360 mg/dL (70-110)
[2020-02-07] MEDS: insulin glargine 100 units/1 mL 18 UNIT SUBCUT (22:26)
[2020-02-08] VITALS (14 sets, daily range): BP systolic 150–160; BP diastolic 74–80; PULSE 64–88; RESP 16–18; TEMP 36.4–36.7; O2SAT 93–98
[2020-02-08] MEDS: albuterol 8 gm MDI 2 PUFF INHALATION ×4 (04:13→15:14)
[2020-02-08] MEDS: pantoprazole DR 40 mg Tablet PO (05:33)
[2020-02-08] MEDS: piperacillin-tazobactam 3.375 GM in sodium chloride 0.9% (plus) 50 ML IV (05:33)
[2020-02-08] MEDS: isosorbide mononitrate ER 60 mg Tablet PO (05:33)
[2020-02-08 05:52] LABS: Basophils % 0.1 %; Eosinophils % 0.1 %; Hematocrit 26.3 % (42.0-52.0); Hemoglobin 8.3 g/dL (11.7-16.6); Lymphocytes # 0.3 10^3/uL (0.8-4.8); Lymphocytes % 2.2 %; Mean Corpuscular HGB Conc 31.6 g/dL (30.0-36.0); Mean Corpuscular Hemoglobin 27.8 pg (28.0-34.0); Mean Platelet Volume 11.4 fL (7.4-10.4); Monocytes # 0.7 10^3/uL (0.2-0.9); Monocytes % 5.7 %; Neutrophils # 10.64 10^3/uL (1.8-7.7); Nucleated Red Blood Cells % 0 %; Platelet Count 138 10^3/cmm (130-400); Red Blood Count 2.99 10^6/uL (4.1-5.3); Red Cell Distribution Width 15.9 % (12.1-15.1); White Blood Count 11.7 10^3/uL (4.0-10.0)
[2020-02-08 06:45] LABS: Glucose Point of Care 209 mg/dL (70-110)
[2020-02-08] MEDS: levothyroxine 25 mcg Tablet PO (09:16)
[2020-02-08] MEDS: clopidogrel 75 mg Tablet PO (09:16)
[2020-02-08] MEDS: labetalol 200 mg Tablet 100 MG PO (09:16)
[2020-02-08] MEDS: escitalopram 10 mg Tablet PO (09:16)
[2020-02-08] MEDS: allopurinol 300 mg Tablet PO (09:16)
[2020-02-08] MEDS: hyDRALAzine 50 mg Tablet 100 MG PO ×2 (09:16→14:18)
[2020-02-08] MEDS: predniSONE 20 mg Tablet PO (09:16)
[2020-02-08] MEDS: heparin 5,000 unit/mL INJ 1 mL 5000 UNIT SUBCUT (09:16)
[2020-02-08] MEDS: metoprolol tartrate 50 mg Tablet PO (09:16)
[2020-02-08] MEDS: terazosin 5 mg Capsule 10 MG PO (09:17)
[2020-02-08 11:10] LABS: Glucose Point of Care 262 mg/dL (70-110)
[2020-02-08 11:54] LABS: Alanine Aminotransferase 19 U/L (0-41); Albumin Level 2.8 g/dL (3.5-5.2); Alkaline Phosphatase 78 IU/L (40-130); Anion Gap 18.1 (5-19); Aspartate Amino Transferase 10 U/L (0-40); Calcium 8.1 mg/dL (8.5-10.5); Carbon Dioxide 20 mmol/L (22-29); Chloride 106 mmol/L (98-107); Globulin 2.1 g/dL (1.3-4.6); Glucose 217 mg/dL (65-115); Potassium 4.1 mmol/L (3.5-5.1); Sodium 140 mmol/L (136-145); Total Bilirubin 0.4 mg/dL (0.15-1.2); Total Protein 4.9 g/dL (6.6-8.7)
[2020-02-08 12:03] LABS: Blood Urea Nitrogen 146 mg/dL (8-23); Osmolality Calculated 344 mOsm/kg (285-295)
--- NOTE | 2020-02-08 12:14 | PC.NURSE ---
notified Dr Garcia of patient's critical BUN
--- NOTE | 2020-02-08 12:41 | PC.SOCIAL ---
IMM Update Pg. 2 of IMM updated and reviewed with patient's over the phone, as unable to get patient to answer his room phone.
--- NOTE | 2020-02-08 14:06 | P.PN_ITS ---
Subjective Subjective: Interval history: Feels well, no new issues. No cough, cold, fevers or chills No uremic Sx No edema and no other volume assoc Sx. Medications: Reviewed: Yes Vitals/I&O/Wt Last Vital Signs Temp 97.5 F L 02/08/20 11:18 Pulse 78 02/08/20 11:53 Resp 16 02/08/20 11:53 BP 153/75 02/08/20 11:18 Pulse Ox 96 02/08/20 11:53 02/07/20 02/08/20 02/08/20 22:59 06:59 14:59 Intake Total 290 / 800 960 / 960 Output Total 400 / 1500 725 / 725 Balance 290 / -300 -400 / -700 235 / 235 Weight last 48 hrs Weight 99.478 kg Weight 100.38 kg Physical Exam Narrative: EXAM NARRATIVE: Constitutional: Awake, conversant HEENT: Wet mucosa, no jvp, non icteric Lungs: Bilaterally clear without discernible wheeze, rales in all lung zones CVS: S1 S2, no murmurs Abdo: Soft, BS ok Ext 4: Global edema, peripheral perfusion with no cyanosis Neurological: Grossly non-focal Data : 02/08/20 05:45 02/08/20 05:45 A&P Additional A&P Information 1. 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 Hypoglycemia - Insulin adjustments 3. Pneumonia - Recent COVID and coag neg staph bacteremia - Abx coverage with Vanco and Zosyn 4. OOB to hair, PT/OT eval - ok to go home from my perspective, follow up with outpatient nephrology team in 1-2 weeks time Bebeto Catalan MD Nephrology [phone] Attestations Medical Necessity Statement*: eval for IVAN Coding Level of Care Code Acute Relief Charge Nurse for g Alfredo
--- NOTE | 2020-02-08 14:55 | PM.DCS ---
Discharge Providers Date of Admission: 02/03/20 13:24 Date of Discharge: February 08, 2020 Attending Provider at Admission: Homa Adame MD Attending Provider at Discharge: Zachary Garcia Primary Care Provider: LEÓN SEGOVIA MD Diagnoses at Discharge Discharge Diagnosis (1) CHF exacerbation: Status: Acute Qualifiers: Heart failure type: diastolic Qualified Code(s): I50.33 - Acute on chronic diastolic (congestive) heart failure (2) IVAN (acute kidney injury): Status: Acute (3) Pneumonia: Status: Acute (4) Hypoglycemia: Status: Acute (5) Chronic kidney disease (CKD): Status: Chronic Qualifiers: Chronic kidney disease stage: stage 3 (moderate) Chronic kidney disease stage 3 subtype: stage 3b (GFR 30-44) Qualified Code(s): N18.32 - Chronic kidney disease, stage 3b (6) Carotid stenosis, bilateral: Status: Acute (7) ASHD (arteriosclerotic heart disease): Status: Chronic (8) Diabetes 1.5, managed as type 2: Status: Chronic Reason for Visit Reason for Visit: AMS/ LOW BLOOD SUGAR Hospital Course Hospital Course: Very pleasant 69-year-old gentleman with history of CAD, carotid stenosis, CKD, CHF, CVA, diabetes, with diabetic neuropathy, HLD, HTN, KAITLYNN, chronically on 3 L of oxygen, former smoker, recently admitted and treated for COVID-19 ARDS, initial positive result on January 24, received dexamethasone remdesivir, also incidentally noted staph aureus in 1/3 bottles on 01/24, as well as coagulase-negative staph noted in blood in 2/3 bottles, subsequently on 01/28 1/3 bottles coagulase negative staph. He was admitted during his hospitalization due to altered mental status, hypoglycemia noted on presentation with blood glucose in the 50s, down as low as 43. Noted hypothermic with temperature 94 Fahrenheit. Hypoglycemia improved with dextrose. His insulin was held. Hypothermia resolved. Noted to have progression of diffuse pulmonary opacities on x-ray with concern for either ongoing pneumonia or superimposed bacterial pneumonia for which was covered with antibiotics with Zosyn and vancomycin. MRSA PCR was negative. Vancomycin was discontinued, and is continued on Zosyn. Received also prednisone which has been tapered. His respiratory function has improved quite significantly. He is currently down to 1 L of oxygen, wears at baseline was previously taking 3. He has done well with physical therapy, found to be independent. Recommendations given for home exercise program. Blood cultures were repeated during this admission, without growth. Discussed concern with positive blood cultures during prior admission. Discussed red flags, and he understands to seek evaluation at any concerning symptoms. Given he is currently on antibiotics, and given recurrent positive cultures in the past will refer for additional evaluation by infectious disease in office as discussed with him and his . His hypoglycemia has resolved without recurrence, however, insulin dose is decreased down to 20 units once daily detemir, which is significantly lower than his prior. He is instructed to skip upcoming dose in case of low blood glucose, and aggressively decrease subsequent insulin doses. Please follow-up with regards to diabetes management, avoidance of hypoglycemia. Noted to also be in congestive heart failure on presentation, has been treated with IV Lasix here, and has been negative balance, lost weight. For now as per discussion with nephrology Lasix continued only as needed. Please reassess volume status, continue diuretics if appropriate. Anemia also noted in the hospital. Initially he was empirically started on anticoagulation, however, this was discontinued. His vital signs remained stable. Hemoglobin is soft, at 8.4 today. This appears to be similar to his recent hemoglobin levels. Likely anemia secondary to chronic disease with renal failure, but also is noted to have some episodes of epistaxis. Reports prior history of epistaxis and had seen ENT before in [place] Dr. N[place]?. Recommended he follow-up with ENT to reassess again epistaxis as possible contributing source of anemia. No active bleeding at this time. He has been instructed not to insert foreign objects or blow his nose, but to apply pressure on nostrils in case of recurrence. Anticoagulation is not continued. His D-dimer is mildly elevated at 0.72 which is just minimally above his age-adjusted level. He currently is not bedbound, and otherwise does not have major risk factors that should lead to VTE post coronavirus. Given rapid improvement in oxygenation, no chest pain, tachycardia, or other symptoms, I VTE is much less likely, however, keep on differential with low threshold for evaluation in case there are any suspicious symptoms arising in the future. While in the hospital noted with acute kidney injury on chronic kidney disease, with worsening of creatinine up to 4-4.5. BUN also elevated, but may be with some contribution from his epistaxis episode earlier. Creatinine with some improvement today down to 4. Has been followed by nephrology while in the hospital. Dialysis not found indicated at this time. Discussed with patient and his spouse. He is okay to discharge and follow-up with outpatient office from nephrology perspective. Is recommended to take diuretics only as needed. Cautioned him against NSAID use. Please follow-up renal function in office. During his hospitalization he was assessed by COVID-19 PCR on 02/03, and found again positive. Currently he is still under isolation. Please discuss with him when isolation may be discontinued. For now given he has had no fever, no ongoing symptoms, would continue isolation until at least Wednesday 01/24, and if at least 24 hours afebrile and without any symptoms, then potentially could discontinue without additional testing. Physical Exam Const: COMMON NORMALS: no acute distress, patient oriented x3 and alert ORIENTATION/CONSCIOUSNESS: Yes awake OTHER: He is awake, alert, denies any discomfort. No recurrence of nasal bleed. Breathing comfortably. No chest pain or pressure or other complaints. He feels much better. Feels ready to return home and continue follow-up with outpatient physicians. HENMT: COMMON NORMALS: oropharynx normal Neck/C-Spine: COMMON NORMALS: no JVD Resp: COMMON NORMALS: normal respiratory effort and clear to auscultation bilaterally AUSCULTATION: clear to auscultation bilaterally Cardio: COMMON NORMALS: no JVD, regular rhythm, S1 normal heart sound present, S2 normal heart sound present and No murmurs present (Cardio) RHYTHM: regular rhythm HEART SOUNDS: S1 normal heart sound present and S2 normal heart sound present GI: COMMON NORMALS: Normal to inspection, nondistended, normoactive bowel sounds present, Soft to palpation and non-tender PALPATION: Yes Soft to palpation Extremity: COMMON NORMALS: no joint enlargement GENERAL: Yes edema (1+. He says at home wears compression stockings. Discussed with him to take them off at night.) Neuro: COMMON NORMALS: patient oriented x3 and moves all extremities SENSORIUM/ORIENTATION: Yes alert Skin: COMMON NORMALS: no rashes or lesions noted GENERAL SKIN EXAM: no rashes or lesions noted Discharge Data Data Completed and Pending: Completed Studies During Hospitalization Category Date Time Status CT head wo con* 7 0450 Urgent Cat Scan 02/03/20 Completed XR chest 1V blake ble [id number] Routine Exams 02/04/20 08:00 Completed XR chest 1V blake ble [id number] Stat Exams 02/03/20 07:43 Completed CV renal doppler 85102 Routine Ultrasound 02/04/20 07:58 Completed Pending at discharge Category Date Time Status Blood Culture Sta t Lab 02/03/20 16:40 Results Complete Blood Co unt w/Auto AM LABS Lab 02/09/20 04:00 Ordered Labs from last 24 hours 02/08/20 02/08/20 02/08/20 11:03 06:41 05:45 WBC RBC Hgb Hct MCV MCH MCHC RDW Plt Count MPV Neut % (Auto) Lymph % (Auto) Gallia % (Auto) Eos % (Auto) Baso % (Auto) Neut # (Auto) Lymph # (Auto) Gall[place] # (Auto) Eos # (Auto) Baso # (Auto) Nucleated RBC % (a uto) Nucleated RBCs # Sodium 140 Potassium 4.1 Chloride 106 Carbon Dioxide 20 L Anion Gap 18.1 BUN 146 H* Creatinine 4.0 H GFR Calculation 15.0 L Glucose 217 H POC Glucose 262 209 Calculated Osmolal ity 344 H Calcium 8.1 L Total Bilirubin 0.4 AST 10 ALT 19 Alkaline Phosphata se 78 Total Protein 4.9 L Albumin 2.8 L Globulin 2.1 02/08/20 02/07/20 02/07/20 05:45 21:17 16:33 WBC 11.7 H RBC 2.99 L Hgb 8.3 L Hct 26.3 L MCV 88.0 MCH 27.8 L MCHC 31.6 RDW 15.9 H Plt Count 138 MPV 11.4 H Neut % (Auto) 91.0 Lymph % (Auto) 2.2 Gallia % (Auto) 5.7 Eos % (Auto) 0.1 Baso % (Auto) 0.1 Neut # (Auto) 10.64 H Lymph # (Auto) 0.3 L Gall[place] # (Auto) 0.7 Eos # (Auto) 0.0 Baso # (Auto) 0.0 Nucleated RBC % (a uto) 0 Nucleated RBCs # 0.0 Sodium Potassium Chloride Carbon Dioxide Anion Gap BUN Creatinine GFR Calculation Glucose POC Glucose 360 271 Calculated Osmolal ity Calcium Total Bilirubin AST ALT Alkaline Phosphata se Total Protein Albumin Globulin Vitals: Last Vital Signs Temp 97.5 F L 02/08/20 11:18 Pulse 78 02/08/20 11:53 Resp 16 02/08/20 11:53 BP 153/75 02/08/20 11:18 Pulse Ox 96 02/08/20 11:53 Discharge Plan Discharge Patient Disposition: Home Condition: Stable Prescriptions: New prednisone 20 mg Tablet 20 mg PO DAILY Qty: 3 RF: 0 Augmentin 875-125 mg tablet 1 tab PO BID 5 Days Qty: 10 RF: 0 furosemide 40 mg tablet 40 mg PO DAILY PRN (Reason: edema) Qty: 15 RF: 0 Continued labetalol 100 mg tablet 100 mg PO BID RF: 0 calcitriol 0.5 mcg capsule 1 mcg PO .COMPLEX RF: 0 escitalopram oxalate 10 mg tablet 10 mg PO DAILY RF: 0 isosorbide mononitrate 60 mg tablet extended release 24 hr 60 mg PO QAM RF: 0 hydralazine 100 mg tablet 100 mg PO TID RF: 0 levothyroxine 25 mcg capsule 25 mcg PO DAILY RF: 0 pantoprazole 40 mg tablet,delayed release (DR/EC) 40 mg PO QAM RF: 0 terazosin 10 mg capsule 10 mg PO BID RF: 0 pravastatin 40 mg tablet 40 mg PO QPM RF: 0 aspirin [Adult Low Dose Aspirin] 81 mg tablet,delayed release (DR/EC) 81 mg PO DAILY RF: 0 cetirizine [24Hour Allergy] 10 mg tablet 10 mg PO DAILY RF: 0 nitroglycerin [Nitrostat] 0.4 mg tablet, sublingual 0.4 mg SUBLINGUAL Q5M PRN (Reason: Chest Pain) RF: 0 acetaminophen [Tylenol Extra Strength] 500 mg tablet 1,000 mg PO Q6H PRN (Reason: Pain) RF: 0 allopurinol 300 mg tablet 300 mg PO DAILY RF: 0 metoprolol tartrate 100 mg Tablet 50 mg PO BID RF: 0 clopidogrel [Plavix] 75 mg Tablet 75 mg PO DAILY RF: 0 albuterol sulfate [Ventolin HFA] 90 mcg/actuation Hfa Aerosol Inhaler 2 puff inhalation Q4H.RESPIRATORY PRN (Reason: Shortness Of Breath) Qty: 1 RF: 0 Changed insulin detemir U-100 100 unit/mL (3 mL) Insulin Pen 20 unit SUBCUT DAILY Qty: 0 RF: 0 Discharge Orders: Discharge Order (Routine); Ordered 02/08/20 Ordered By: Zachary Garcia Referrals: 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 Positive blood cultures, SA x1, Coag neg staph x2) LEÓN SEGOVIA MD [Primary Care Provider] - 02/17/20 2:40 pm (Please call [facility] to acknowledge you know of this appointment and they will give you instructions for that day. Their phone number is [phone].) Discharge Diet: Cardiac and Diabetic Discharge Activity: Increase activity as tolerated, As per PT/OT instructions and Oxygen as instructed Activity Restrictions/Additional Instructions: Continue oxygen at home at 1 L/min, target saturation 92%. If your oxygen saturation drops below 88% and does not recover, despite increasing oxygen supply, or you develop severe shortness of breath, chest pain, high fevers, or any other abnormal symptoms, please seek medical attention without delay. Please discuss with your primary care doctor and request follow-up for resolution of pneumonia findings on imaging. Please discuss with your primary care doctor regarding blood culture positive for Staph aureus on 01/24, as well as coagulase-negative staph in blood culture on 01/24 and 01/28. Repeat blood cultures during this visit have been negative. Please follow up with infectious disease specialist. Please follow-up with your ENT with regards to nosebleeds. Please discuss with your primary care doctor to also check for any blood in the stool for additional evaluation of chronic anemia after nose bleeds resolve (blood from nosebleeds may show up in stool). Please continue to monitor your blood glucose 4 times daily, avoid low blood sugar. If your glucose is below 70, please take sugary snacks, recheck sugar every 15 minutes until it is rising again. If blood glucose noted to be low, decrease detemir dose in half. If sugars are rising, persistently staying high slowly increase detemir dose by no more than 2-3 units at a time per day. Please maintain log of blood glucose and follow-up with your primary care doctor for optimization of insulin therapy. Please avoid any NSAIDs. Please take diuretic only if you notice worsening edema, or gain more than 3 pounds in 2 days, have progressive shortness of breath with lying down flat. Please contact your primary care doctor's office if you notice these changes and her having to take diuretic. Continue follow-up regarding Paget's disease. Please maintain isolation until at least Friday the , and you have had at least 24 hours without fever or any symptoms of coronavirus including chills, muscle aches, headache, nausea, vomiting, diarrhea, shortness of breath, cough or other symptoms. Please also discuss discontinuation of isolation recommendations from your primary care doctor. Discharge Attestations Time Spent in Discharge Care*: greater than 30 min Quality Metrics Clinical Quality Measures During this hospital stay, did patient experience: None Coding Level of Care Code Acute Correctional Substance Abuse Counselor for Les Fwd Diagnoses CHF exacerbation I50.33 Heart failure type: diastolic IVAN (acute kidney injury) N17.9 Pneumonia J18.9 Hypoglycemia E16.2 Chronic kidney disease (CKD) N18.32 Chronic kidney disease stage: stage 3 (moderate) Chronic kidney disease stage 3 subtype: stage 3b (GFR 30-44) Carotid stenosis, bilateral I65.23 ASHD (arteriosclerotic heart disease) I25.10 Diabetes 1.5, managed as type 2 E13.9
--- NOTE | 2020-02-08 15:12 | PC.NURSE ---
IVs removed. patient getting dressed and calling family for ride home.
--- NOTE | 2020-02-08 16:25 | PC.NURSE ---
patient taken to private vehicle via wheelchair by staff
--- NOTE | 2020-02-10 14:38 | PC.SOCIAL ---
I spoke with the patients as the patient was in the shower. I informed her of the many F/U doctor appointments the patient has. These appointments included Dr. Carbone the assistant professor of chemistry, Dr. De Jesus the ENT., Dr Adame, the Infectious Disease , and Dr. Johnson his PCP. All appointments were already made except for the assistant professor of chemistry and the ENT. Both will call the patient back with the appointment times which will be set up likely after he is out of quarantine Friday02/14/2020. Patient is doing very well at home. they had no concerns or questions, they understood the discharge paperwork and medications. They had no issues getting medications. This video games storywriter spoke with the about ways to keep the patients imunes up. This included the patient eating right, following up with his doctor appointments and immunizations. this also includes avoiding unnecessary stress. We also spoke about ways to prevent the spread of the COVID 19. She understood how to social distance, mask, wash hands, sanitize surfaces including vehicle. She understood that they need to limit visitors and going out into public if possible. Sneezing and coughing into arm, not touching face or shaking hands. We also discussed what symptoms to be concerned about. This includes lips or face becoming blue, shortness of breath or trouble breathing, fever of 104 or higher, pain in chest lasting longer than 5 minutes, dizziness or trouble waking. At the end of the conversation we discussed Plasma donation, patient and would like to recieve information on this. Information was mailed to patient.
== END 2020-02-08 16:27 | DRG 291 ==
LOC: ER 10:10 → MEDSURG 14:31
PROVIDERS: Family Medicine; Admitting Provider Student in an Organized Health Care Education/Training Program; PCP Family Medicine; Visit Provider Internal Medicine
DX: I13.0 Hypertensive heart and chronic kidney disease with heart failure and stage 1 through stage 4 chronic kidney disease, or unspecified chronic kidney disease (principal); J18.9 Pneumonia, unspecified organism; I50.33 Acute on chronic diastolic (congestive) heart failure; U07.1 COVID-19; N17.9 Acute kidney failure, unspecified; E13.22 Other specified diabetes mellitus with diabetic chronic kidney disease; N18.32 Chronic kidney disease, stage 3b; E13.649 Other specified diabetes mellitus with hypoglycemia without coma; I25.10 Atherosclerotic heart disease of native coronary artery without angina pectoris; I65.23 Occlusion and stenosis of bilateral carotid arteries; E13.40 Other specified diabetes mellitus with diabetic neuropathy, unspecified; E78.5 Hyperlipidemia, unspecified; G47.33 Obstructive sleep apnea (adult) (pediatric); Z99.81 Dependence on supplemental oxygen; Z87.891 Personal history of nicotine dependence; Z86.73 Personal history of transient ischemic attack (TIA), and cerebral infarction without residual deficits; Z79.82 Long term (current) use of aspirin; Z79.02 Long term (current) use of antithrombotics/antiplatelets; Z79.4 Long term (current) use of insulin; D63.1 Anemia in chronic kidney disease; I25.2 Old myocardial infarction; G89.29 Other chronic pain; M54.9 Dorsalgia, unspecified
CPT/HCPCS: 12345; 36415; 36416; 36592; 36600; 70450; 71045; 80051; 80053; 81001; 82436; 82570; 82728; 82803; 82810; 82947; 82962; 83036; 83605; 83615; 83880; 83986; 84133; 84145; 84300; 84443; 84484; 85025; 85378; 85384; 85610; 85730; 85999; 86140; 87040; 87086; 87635; 87641; 87804; 93005; 93975; 94640; 96372; 96375; 97110; 97161; 99284; J1100; J1644; J1650; J1815 ×2; J1940; J2270; J2543; J2920; J3370; J3535; J7030; J7050; J7512; Q3014

== ENCOUNTER 2020-02-28 08:01 | Outpatient (CLI) | payer MEDICARE, OTHER, SELFPAY | END 2020-02-28 08:02 | disposition home or self-care (01) | LOC: LAB 08:09 | PROVIDERS: PCP Family Medicine; Visit Provider Student in an Organized Health Care Education/Training Program | DX: R78.81 Bacteremia (principal) | CPT/HCPCS: 36415; 87040 ==

== ENCOUNTER 2020-05-15 10:42 | Outpatient (RCR) | payer MEDICARE, SELFPAY ==
[2020-04-24] MEDS: iron sucrose 200 MG in sodium chloride 0.9% (100 ml) 100 ML 220 MG IV (11:20)
[2020-04-24 12:41] VITALS: BP 147/60; PULSE 54; RESP 18; TEMP 36.7; O2SAT 94
[2020-05-01 11:00] VITALS: BP 137/63; PULSE 61; RESP 20; TEMP 36.7; O2SAT 92
[2020-05-01] MEDS: iron sucrose 200 MG in sodium chloride 0.9% (100 ml) 100 ML 220 MG IV (11:14)
[2020-05-08 11:14] VITALS: BP 120/55; PULSE 54; RESP 18; TEMP 36.7; O2SAT 94
[2020-05-08] MEDS: iron sucrose 200 MG in sodium chloride 0.9% (100 ml) 100 ML 220 MG IV (11:45)
[2020-05-15 11:00] VITALS: BP 143/64; PULSE 56; RESP 18; TEMP 36.8; O2SAT 94
[2020-05-15] MEDS: iron sucrose 200 MG in sodium chloride 0.9% (100 ml) 100 ML 220 MG IV (11:00)
== END 2020-05-21 23:59 | disposition home or self-care (01) ==
LOC: OPS 10:42
PROVIDERS: PCP Family Medicine; Visit Provider Internal Medicine
DX: D50.9 Iron deficiency anemia, unspecified (principal)
CPT/HCPCS: 96365; J1756

== ENCOUNTER 2020-05-22 10:46 | Outpatient (RCR) | payer MEDICARE, OTHER, SELFPAY ==
[2020-05-22 11:15] VITALS: BP 158/86; PULSE 62; RESP 18; TEMP 36.9; O2SAT 95
[2020-05-22 11:26] LABS: Glucose Point of Care 224 mg/dL (70-110)
[2020-05-22] MEDS: iron sucrose 200 MG in sodium chloride 0.9% (100 ml) 100 ML 220 MG IV (11:45)
== END 2020-06-18 23:59 | disposition home or self-care (01) ==
LOC: OPS 10:46
PROVIDERS: PCP Family Medicine; Visit Provider Internal Medicine
DX: D50.9 Iron deficiency anemia, unspecified (principal)
CPT/HCPCS: 36416; 82962; 96365; J1756

== ENCOUNTER → 2020-05-23 11:22 | Outpatient (BNVA) | payer MEDICARE, OTHER, SELFPAY | PROVIDERS: PCP Family Medicine; Visit Provider Family Medicine | DX: E03.9 Hypothyroidism, unspecified (principal) | CPT/HCPCS: 84443 ==

== ENCOUNTER 2020-05-29 08:16 | Outpatient (CLI) | payer MEDICARE, SELFPAY ==
[2020-05-29 09:01] LABS: Hemoglobin 8.8 g/dL (11.7-16.6)
[2020-05-29 09:41] LABS: Iron 32 ug/dL (59-158); Total Iron Binding Capacity 177 mcg/dl; Unsaturated Iron Binding 145 ug/dL (112-347)
[2020-05-29 10:06] LABS: Ferritin 1412 ng/mL (30-400)
== END 2020-05-29 08:17 | disposition home or self-care (01) ==
PROVIDERS: PCP Family Medicine; Visit Provider Internal Medicine
DX: D50.9 Iron deficiency anemia, unspecified (principal)
CPT/HCPCS: 36415; 82728; 83540; 83550; 85018

== ENCOUNTER 2020-07-27 10:13 | Outpatient (CLI) | payer MEDICARE, SELFPAY ==
--- NOTE | 2020-07-27 10:29 | XR_ITS ---
WS: [id number] THORACIC SPINE TECHNIQUE: AP and lateral views are performed. HISTORY: chronic back pain COMPARISON: None available. Posterior thoracolumbar junction fusion hardware is evident. Visualized hardware extends from T10 to the superior aspect of L1. The rods and screws are intact. Mild increase in thoracic kyphosis. Moderate disc space narrowing and desiccation in the mid to lower thoracic spine. Most significant at T7-8 and T8-9. No fractures. Very mild RIGHT curvature of the th oracic spine. Interpedicular distances are normal. XR/XR thoracic spine 2V [id number] IMPRESSION: 1. Posterior fusion hardware at the thoracolumbar junction is intact. 2. Moderate degenerative disc disease most significant at T7-8 and T8-9.
--- NOTE | 2020-07-27 10:29 | XR_ITS ---
WS: [id number] LUMBAR SPINE: 3 VIEWS TECHNIQUE: AP, lateral and L5-S1 spot. HISTORY: chronic back pain COMPARISON: None available. Extensive posterior lumbar fusion hardware extends from the lower thoracic spine to L4. Vertical kimber and screw fixation from L1 to L4. L2 20% burst fracture. Disc space narrowing and desiccation through out the lumbar spine. There is very slight posterior bulging of the L2 vertebral body. Bilateral facet joint arthritis most significant at L4-5 and L5-S1. Large laminectomy defects at L1, L2 and L3. SI joints are symmetric bilaterally. No soft tissue abnormalities. XR/XR lumbar spine 2-3V* [id number] IMPRESSION: 1. Extensive posterior lumbar fusion from L1 to L4. 2. 20% L2 burst fracture. No significant progression since 09/06/2017 which was prior to the extensive spine fusion.
== END 2020-07-27 10:14 | disposition home or self-care (01) ==
LOC: RADWPI 10:28
PROVIDERS: PCP Family Medicine; Visit Provider Family Medicine
DX: G89.29 Other chronic pain (principal); M51.34 Other intervertebral disc degeneration, thoracic region; S32.021A Stable burst fracture of second lumbar vertebra, initial encounter for closed fracture; X58.XXXA Exposure to other specified factors, initial encounter
CPT/HCPCS: 72070; 72100

== ENCOUNTER 2020-08-08 01:33 | Inpatient (IN) | payer MEDICARE, SELFPAY ==
[2020-08-08] VITALS (57 sets, daily range): BP systolic 88–125; BP diastolic 40–61; PULSE 59–71; RESP 14–24; TEMP 36.1–36.7; O2SAT 88–100; BMI 33.4; BMI 34.4
--- NOTE | 2020-08-08 01:47 | XRR_ITS ---
PROCEDURE INFORMATION: Exam: XR Chest Exam date and time: 08/08/2020 1:58 AM Age: 70 years old Clinical indication: Shortness of breath; Prior surgery; Surgery type: Back, stent; Patient HX: Chest pain radiating to neck, SOB TECHNIQUE: Imaging protocol: XR of the chest. Views: Frontal portable upright view of the chest. COMPARISON: CR XR chest 1V portable [id number] 02/04/2020 8:18 AM FINDINGS: Tubes, catheters and devices: EKG leads are present overlying the chest. Lungs: Increased bibasilar subsegmental atelectasis. The pulmonary vasculature is normal. The lungs are otherwise peripherally clear bilaterally. Pleural spaces: No pleural effusion. No pneumothorax. Heart/Mediastinum: Stable borderline cardiomegaly. Mediastinum: Stable. Bones/joints: Bilateral thoracic and lumbar spinal pedicle screw and kimber systems. 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 XR/XR chest 1V portable [id number] IMPRESSION: 1. Increased bibasilar subsegmental atelectasis. 2. Sclerotic lesion right scapula, stable.
--- NOTE | 2020-08-08 01:50 | W.ED.CHESTPA ---
HPI - Chest Pain General: Chief Complaint: Chest Pain Stated Complaint: chest pain, arm tingle Time Seen by Provider: 08/08/20 01:38 Source: patient and family Limitations: no limitations History of Present Illness: HPI narrative: Chest pain started 2 days ago showed pain through her bilateral posterior neck bilateral shoulders mild shortness of breath.Patient also having mild paresthesias into the left hand.Patient had aspirin prior to arrival. He also had nitroglycerin prior to arrival. He states he cannot take narcotics. He states the strongest medication he is willing to take is Tylenol. He takes no other blood thinners. 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 He wears 3 L/min by nasal cannula of oxygen at home. He also uses CPAP at night. He reports a history of stage IV kidney disease. Patient reports that his ceramic research engineer is discussed with him that he would likely have to go on dialysis at some point. He does not have any indwelling catheter for dialysis at this time. 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 Onset (ago): day(s) (2) Timing of current episode: episodic Prior episodes: Yes Onset: during rest Pain location: substernal, left chest and right chest Pain radiation: left arm, back, neck, left shoulder and right shoulder Severity: moderate Pain scale (0-10): 3 Quality: aching Relieving factors: nitroglycerin Exacerbating factors: nothing Associated symptoms: Reports dyspnea and leg edema; Deny abdominal pain, diaphoresis, fever(s), nausea, palpitations, syncope or vomiting Treatment prior to arrival: aspirin and nitroglycerin Risk Factors: Thoracic aortic dissection risk factors: none Review of Systems Const: Denies: fever(s) or diaphoresis Eyes: Denies: change in vision ENMT: Denies: throat pain Card: Reports: chest pain, edema and swelling of feet/ankles; Denies: palpitations or syncope Resp: Reports: dyspnea GI: Denies: abdominal pain, nausea or vomiting : Denies: flank pain Musc: Denies: neck pain or back pain Skin/Breast: Denies: rash or pruritus Neuro: Denies: headache(s) or numbness in extremities Psych: Denies: anxiety Jermain/Lymph: Denies: easy bruising or enlarged lymph nodes All/Imm: Denies: urticaria PFSH ED PFSH: Medical History Acute kidney injury superimposed on CKD Anemia ASHD (arteriosclerotic heart disease) Carotid stenosis, bilateral Chronic back pain Chronic kidney disease (CKD) Congestive 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 CVA (cerebral vascular accident) Diabetes 1.5, managed as type 2 Dyslipidemia Edema Essential hypertension History of 2019 novel coronavirus disease (COVID-19) Hypothyroidism Myocardial infarction KAITLYNN (obstructive sleep apnea) Surgical History Previous back surgery S/P angioplasty with stent S/P cataract extraction Family History Mother CAD (coronary artery disease) Stroke Sister Hypertension Social History Smoking and tobacco status: former smoker Alcohol intake: never Household members: spouse Marital status: service: Yes branch: [employer] Current occupational status: employed History of recent travel: No Current gender identity: Male Physical Exam Const: COMMON NORMALS: no acute distress, patient oriented x3 and alert GENERAL APPEARANCE: cooperative NUTRITIONAL APPEARANCE: obese ORIENTATION/CONSCIOUSNESS: Yes awake, Yes oriented to person, Yes oriented to place and Yes oriented to time HENMT: COMMON NORMALS: normocephalic HEAD & SCALP: normal to inspection and normocephalic Eye: COMMON NORMALS: Equal, round and reactive pupils present and EOMs intact bilaterally PUPIL: Yes Equal, round and reactive pupils present Neck/C-Spine: COMMON NORMALS: full ROM, no lymphadenopathy, supple, no meningeal signs and no JVD GENERAL: Yes normal visual inspection and Yes trachea midline Lymph: LYMPHATIC: no lymphadenopathy noted Chest: COMMONS NORMALS: normal inspection of the chest and normal palpation of entire chest wall Resp: COMMON NORMALS: normal respiratory effort, No retractions, No use of accessory muscles and clear to auscultation bilaterally EFFORT & INSPECTION: Yes able to speak in complete sentences AUSCULTATION: clear to auscultation bilaterally Cardio: COMMON NORMALS: no JVD, regular rate, regular rhythm, No murmurs present (Cardio) and Peripheral pulses 2+ throughout JUGULAR VENOUS DISTENTION: no JVD RATE: regular rate RHYTHM: regular rhythm PERIPHERAL PULSES: Peripheral pulses 2+ throughout, radial pulses present and posterior tibial pulses present GI: COMMON NORMALS: Normal to inspection, nondistended, normoactive bowel sounds present (Obese), Soft to palpation and non-tender AUSCULTATION: Yes normoactive bowel sounds and No Abdominal bruit PALPATION: Yes Soft to palpation Extremity: COMMON NORMALS: full ROM NARRATIVE EXTREMITY EXAM: 2+ pitting edema lower extremities bilaterally. GENERAL: No cyanosis Neuro: COMMON NORMALS: patient oriented x3 and CN's II-XII intact bilaterally SENSORIUM/ORIENTATION: Yes alert, Yes oriented to person, Yes oriented to place and Yes oriented to time MENINGEAL SIGNS: Yes no meningeal signs Psych: COMMON NORMALS: mental status grossly normal, Normal thought process present and speech normal APPEARANCE: Yes grossly normal ATTITUDE: Yes calm ACTIVITY/MOTOR BEHAVIOR: Yes appropriate eye contact SPEECH: Yes normal speech THOUGHT PROCESS: Normal thought process present Course Vital Signs: Vital signs: Vital Signs Temperature 97.8 F 08/08/20 01:34 Pulse Rate 68 08/08/20 01:48 Respiratory Rate 20 H 08/08/20 03:03 Blood Pressure 116/49 08/08/20 03:03 Pulse Oximetry 95 08/08/20 03:03 MDM - Chest Pain MDM Narrative: Medical decision making narrative: heart score = 8 0216: Patient having a mild nosebleed. I have asked the nurse give him a nasal clamp. Patient reports his last coronary stent was in 2012. 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 Patient's nosebleed is stopped. Nasal clamp helped. 0245: d/w dr. carvalho cardiology. 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 Okay with him to hold heparin due to the epistaxis. 0315: d/w dr. gamble. will admit to [facility]. he is aware of dr. carvalho being digital media sales consultant Lab Data: Attestation: I reviewed the patient's lab results. Lab results narrative: Last hemoglobin was on May 29, 2020 equal 8.8 Labs: Lab Results 08/08/20 08/08/20 08/08/20 Range/Units 01:44 01:44 01:44 WBC 15.4 H (4.0-10.0) 10^3/ uL RBC 2.82 L (4.1-5.3) 10^6/u L Hgb 7.7 L (11.7-16.6) g/dL Hct 24.8 L (42.0-52.0) % MCV 87.9 (80-94) fL MCH 27.3 L (28.0-34.0) pg MCHC 31.0 (30.0-36.0) g/dL RDW 17.9 H (12.1-15.1) % Plt Count 185 (130-400) 10^3/c mm MPV 10.6 H (7.4-10.4) fL Neut % (Auto) 85.6 % Lymph % (Auto) 5.7 % [place] % (Auto) 5.3 % Eos % (Auto) 2.7 % Baso % (Auto) 0.3 % Neut # (Auto) 13.18 H (1.8-7.7) 10^3/u L Lymph # (Auto) 0.9 (0.8-4.8) 10^3/u L [place] # (Auto) 0.8 (0.2-0.9) 10^3/u L Eos # (Auto) 0.4 (0.0-0.8) 10^3/u L Baso # (Auto) 0.0 (0.0-0.1) 10^3/u L Nucleated RBC % (a uto) 0 % Nucleated RBCs # 0.0 /100WBC APTT (23.9-36.7) SECO NDS Sodium 135 L (136-145) mmol/L Potassium 4.5 (3.5-5.1) mmol/L Chloride 102 (98-107) mmol/L Carbon Dioxide 14 L (22-29) mmol/L Anion Gap 23.5 H (5-19) BUN 142 H* (8-23) mg/dL Creatinine 8.1 H* (0.7-1.2) mg/dL GFR Calculation 6.6 L (90-130) mL/min Glucose 180 H (65-115) mg/dL Calculated Osmolal ity 331 H (285-295) mOsm/k g Calcium 7.9 L (8.5-10.5) mg/dL Troponin T Baselin e 252 H* (0-15) ng/L NT-Pro-B Natriuret Pep 4360 H (0-125) pg/mL SARS-CoV-2 Ag (Rap id) (Negative) Blood Type Rho(D) Type Antibody Screen 08/08/20 08/08/20 08/08/20 Range/Units 01:55 02:20 02:20 WBC (4.0-10.0) 10^3/ uL RBC (4.1-5.3) 10^6/u L Hgb (11.7-16.6) g/dL Hct (42.0-52.0) % MCV (80-94) fL MCH (28.0-34.0) pg MCHC (30.0-36.0) g/dL RDW (12.1-15.1) % Plt Count (130-400) 10^3/c mm MPV (7.4-10.4) fL Neut % (Auto) % Lymph % (Auto) % [place] % (Auto) % Eos % (Auto) % Baso % (Auto) % Neut # (Auto) (1.8-7.7) 10^3/u L Lymph # (Auto) (0.8-4.8) 10^3/u L [place] # (Auto) (0.2-0.9) 10^3/u L Eos # (Auto) (0.0-0.8) 10^3/u L Baso # (Auto) (0.0-0.1) 10^3/u L Nucleated RBC % (a uto) % Nucleated RBCs # /100WBC APTT 33.3 (23.9-36.7) SECO NDS Sodium (136-145) mmol/L Potassium (3.5-5.1) mmol/L Chloride (98-107) mmol/L Carbon Dioxide (22-29) mmol/L Anion Gap (5-19) BUN (8-23) mg/dL Creatinine (0.7-1.2) mg/dL GFR Calculation (90-130) mL/min Glucose (65-115) mg/dL Calculated Osmolal ity (285-295) mOsm/k g Calcium (8.5-10.5) mg/dL Troponin T Baselin e (0-15) ng/L NT-Pro-B Natriuret Pep (0-125) pg/mL SARS-CoV-2 Ag (Rap id) Negative (Negative) Blood Type A Positive Rho(D) Type Positive / 4+ Antibody Screen Negative BUN 142 creatinine 8.1 potassium 4.5 sodium 135 carbon dioxide 14 glucose 180 with anion gap of 23. Previous BUN and creatinine on February 06, 2020 was BUN of 150 and creatinine 4.5. Imaging Data^: CXR: Attestation: I personally reviewed and interpreted this imaging study as follows: My impression: Minimal pulmonary congestion, mild cardiomegaly. No effusion or pneumonia seen. EKG Data^: EKG 1: Attestation: I personally reviewed and interpreted this EKG as follows: EKG interpretation date: 08/08/20 EKG interpretation time: 01:40 Prior EKG tracings: not available for review Ischemic changes: non-specific ST-T wave changes Interpretation: Normal sinus rhythm with nonspecific ST-T changes, first-degree AV block; heart rate Normal axis, IVCD not otherwise specified, normal QT interval Critical Care Time Critical Care Time: Critical Care Time: Yes Total Critical Care Time: 45 Attestation: Care of chest pain, anemia, blood transfusion, elevated troponin, non-STEMI Discharge Plan Discharge Patient Disposition: Admitted As Inpatient Clinical Impression: Non-ST elevated myocardial infarction (non-STEMI), Chronic kidney disease (CKD) stage G5/A1, glomerular filtration rate (GFR) less than or equal to 15 mL/min/1.73 square meter and albuminuria creatinine ratio less than 30 mg/g Condition: Fair Discharge Diet: Cardiac Discharge Activity: Bedrest Coding Level of Care Code ED Tanning Solution Maker for Chg 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
[2020-08-08 01:53] LABS: Basophils % 0.3 %; Eosinophils # 0.4 10^3/uL (0.0-0.8); Eosinophils % 2.7 %; Hematocrit 24.8 % (42.0-52.0); Hemoglobin 7.7 g/dL (11.7-16.6); Lymphocytes # 0.9 10^3/uL (0.8-4.8); Lymphocytes % 5.7 %; Mean Corpuscular Hemoglobin 27.3 pg (28.0-34.0); Mean Corpuscular Volume 87.9 fL (80-94); Mean Platelet Volume 10.6 fL (7.4-10.4); Monocytes # 0.8 10^3/uL (0.2-0.9); Monocytes % 5.3 %; Neutrophils # 13.18 10^3/uL (1.8-7.7); Neutrophils % 85.6 %; Nucleated Red Blood Cells % 0 %; Platelet Count 185 10^3/cmm (130-400); Red Blood Count 2.82 10^6/uL (4.1-5.3); Red Cell Distribution Width 17.9 % (12.1-15.1); White Blood Count 15.4 10^3/uL (4.0-10.0)
[2020-08-08] MEDS: acetaminophen 325 mg Tablet 650 MG PO ×2 (01:57→21:04)
[2020-08-08 02:11] LABS: Troponin(5th) Baseline 252 ng/L (0-15)
[2020-08-08 02:19] LABS: Anion Gap 23.5 (5-19); Calcium 7.9 mg/dL (8.5-10.5); Carbon Dioxide 14 mmol/L (22-29); Chloride 102 mmol/L (98-107); Glomerular Filtration Rate 6.6 mL/min (90-130); Glucose 180 mg/dL (65-115); NT Pro B Type Natriuretic Pept 4360 pg/mL (0-125); Potassium 4.5 mmol/L (3.5-5.1); Sodium 135 mmol/L (136-145)
[2020-08-08 02:19] LABS: SARS Covid-2 Antigen Negative (Negative)
[2020-08-08 02:26] LABS: Blood Urea Nitrogen 142 mg/dL (8-23); Osmolality Calculated 331 mOsm/kg (285-295)
[2020-08-08] MEDS: ondansetron 2 mg/ML SDV 2 mL 4 MG IVP (02:34)
[2020-08-08 02:43] LABS: Partial Thromboplastin Time 33.3 SECONDS (23.9-36.7)
--- NOTE | 2020-08-08 03:31 | ED_ITS ---
HPI - Chest Pain General: Chief Complaint: Chest Pain Stated Complaint: chest pain, arm tingle Time Seen by Provider: 08/08/20 01:38 Source: patient and family Limitations: no limitations History of Present Illness: MD complaint: chest pain Onset (ago): unknown (see nursing assessment) Timing of current episode: episodic Pain location: substernal, left chest and right chest Quality: aching Relieving factors: nitroglycerin Exacerbating factors: nothing Associated symptoms: Deny abdominal pain, fever(s), nausea, palpitations or vomiting Treatment prior to arrival: other (see nursing assessment) Risk Factors: Coronary artery disease risk factors: hypertension Review of Systems Const: Denies: fever(s) or chills Eyes: Denies: change in vision ENMT: Denies: throat pain Card: Reports: chest pain; Denies: palpitations Resp: Denies: wheezing GI: Denies: abdominal pain, nausea or vomiting : Denies: flank pain Musc: Denies: neck pain or back pain Skin/Breast: Denies: rash or pruritus Neuro: Denies: headache(s) or numbness in extremities Psych: Denies: anxiety Jermain/Lymph: Denies: enlarged lymph nodes PFSH ED PFSH: Medical History Acute kidney injury superimposed on CKD Anemia ASHD (arteriosclerotic heart disease) Carotid stenosis, bilateral Chronic back pain Chronic kidney disease (CKD) Chronic kidney disease (CKD) stage G5/A1, glomerular filtration rate (GFR) less than or equal to 15 mL/min/1.73 square meter and albuminuria creatinine ratio less than 30 mg/g Congestive 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 CVA (cerebral vascular accident) Diabetes 1.5, managed as type 2 Dyslipidemia Essential hypertension History of 2019 novel coronavirus disease (COVID-19) Hypothyroidism Myocardial infarction KAITLYNN (obstructive sleep apnea) Surgical History Previous back surgery S/P angioplasty with stent S/P cataract extraction S/P hemodialysis catheter insertion Family History Mother CAD (coronary artery disease) Stroke Sister Hypertension Social History Smoking and tobacco status: former smoker Alcohol intake: never Household members: spouse Marital status: service: Yes branch: [employer] Current occupational status: employed Current occupation: [employer] History of recent travel: No Current gender identity: Male Physical Exam Const: COMMON NORMALS: no acute distress, patient oriented x3, no limitations and well nourished GENERAL APPEARANCE: cooperative HENMT: COMMON NORMALS: normocephalic and atraumatic HEAD & SCALP: normocephalic and atraumatic FACE & SINUS: normal facial exam Eye: COMMON NORMALS: EOMs intact bilaterally Neck/C-Spine: COMMON NORMALS: full ROM, no lymphadenopathy, supple and no meningeal signs GENERAL: Yes normal visual inspection Lymph: LYMPHATIC: no lymphadenopathy noted Chest: COMMONS NORMALS: normal inspection of the chest and normal palpation of entire chest wall CHEST: No Ecchymosis present and No rash Resp: COMMON NORMALS: normal respiratory effort, No retractions and clear to auscultation bilaterally EFFORT & INSPECTION: No respiratory distress AUSCULTATION: clear to auscultation bilaterally Cardio: COMMON NORMALS: regular rate, regular rhythm and Peripheral pulses 2+ throughout JUGULAR VENOUS DISTENTION: no JVD RATE: regular rate RHYTHM: regular rhythm PERIPHERAL PULSES: Peripheral pulses 2+ throughout GI: COMMON NORMALS: Normal to inspection, nondistended, normoactive bowel sounds present and non-tender : COMMON NORMALS: Yes no CVA tenderness BLADDER/KIDNEY EXAM: Yes no CVA tenderness Back/Pelvis: COMMON NORMALS: no CVA tenderness Extremity: COMMON NORMALS: normal to inspection, full ROM and capillary refill normal Neuro: COMMON NORMALS: patient oriented x3, CN's II-XII intact bilaterally, no focal motor deficits and no sensory deficits noted MENINGEAL SIGNS: Yes no meningeal signs Psych: COMMON NORMALS: mental status grossly normal and Normal thought process present THOUGHT PROCESS: Normal thought process present Skin: COMMON NORMALS: no rashes or lesions noted and no wounds GENERAL SKIN EXAM: no rashes or lesions noted Course Vital Signs: Vital signs: Vital Signs Temperature 98.0 F 08/14/20 13:37 Pulse Rate 55 L 08/14/20 13:37 Respiratory Rate 18 08/14/20 13:37 Blood Pressure 160/85 08/14/20 13:37 Pulse Oximetry 97 08/14/20 13:37 MDM - Chest Pain Lab Data: Labs: Lab Results 08/08/20 08/08/20 08/08/20 Range/Units 01:44 01:44 01:44 WBC 15.4 H (4.0-10.0) 10^3/ uL RBC 2.82 L (4.1-5.3) 10^6/u L Hgb 7.7 L (11.7-16.6) g/dL Hct 24.8 L (42.0-52.0) % MCV 87.9 (80-94) fL MCH 27.3 L (28.0-34.0) pg MCHC 31.0 (30.0-36.0) g/dL RDW 17.9 H (12.1-15.1) % Plt Count 185 (130-400) 10^3/c mm MPV 10.6 H (7.4-10.4) fL Neut % (Auto) 85.6 % Lymph % (Auto) 5.7 % [place] % (Auto) 5.3 % Eos % (Auto) 2.7 % Baso % (Auto) 0.3 % Neut # (Auto) 13.18 H (1.8-7.7) 10^3/u L Lymph # (Auto) 0.9 (0.8-4.8) 10^3/u L [place] # (Auto) 0.8 (0.2-0.9) 10^3/u L Eos # (Auto) 0.4 (0.0-0.8) 10^3/u L Baso # (Auto) 0.0 (0.0-0.1) 10^3/u L Nucleated RBC % (a uto) 0 % Nucleated RBCs # 0.0 /100WBC APTT (23.9-36.7) SECO NDS Sodium 135 L (136-145) mmol/L Potassium 4.5 (3.5-5.1) mmol/L Chloride 102 (98-107) mmol/L Carbon Dioxide 14 L (22-29) mmol/L Anion Gap 23.5 H (5-19) BUN 142 H* (8-23) mg/dL Creatinine 8.1 H* (0.7-1.2) mg/dL GFR Calculation 6.6 L (90-130) mL/min Glucose 180 H (65-115) mg/dL Calculated Osmolal ity 331 H (285-295) mOsm/k g Calcium 7.9 L (8.5-10.5) mg/dL Iron (59-158) ug/dL TIBC mcg/dl % Saturation (20-50) % Unsat Iron Binding (112-347) ug/dL Troponin T Baselin e 252 H* (0-15) ng/L NT-Pro-B Natriuret Pep 4360 H (0-125) pg/mL SARS-CoV-2 Ag (Rap id) (Negative) Blood Type Rho(D) Type Antibody Screen Crossmatch 08/08/20 08/08/20 08/08/20 Range/Units 01:44 01:55 02:20 WBC (4.0-10.0) 10^3/ uL RBC (4.1-5.3) 10^6/u L Hgb (11.7-16.6) g/dL Hct (42.0-52.0) % MCV (80-94) fL MCH (28.0-34.0) pg MCHC (30.0-36.0) g/dL RDW (12.1-15.1) % Plt Count (130-400) 10^3/c mm MPV (7.4-10.4) fL Neut % (Auto) % Lymph % (Auto) % [place] % (Auto) % Eos % (Auto) % Baso % (Auto) % Neut # (Auto) (1.8-7.7) 10^3/u L Lymph # (Auto) (0.8-4.8) 10^3/u L [place] # (Auto) (0.2-0.9) 10^3/u L Eos # (Auto) (0.0-0.8) 10^3/u L Baso # (Auto) (0.0-0.1) 10^3/u L Nucleated RBC % (a uto) % Nucleated RBCs # /100WBC APTT 33.3 (23.9-36.7) SECO NDS Sodium (136-145) mmol/L Potassium (3.5-5.1) mmol/L Chloride (98-107) mmol/L Carbon Dioxide (22-29) mmol/L Anion Gap (5-19) BUN (8-23) mg/dL Creatinine (0.7-1.2) mg/dL GFR Calculation (90-130) mL/min Glucose (65-115) mg/dL Calculated Osmolal ity (285-295) mOsm/k g Calcium (8.5-10.5) mg/dL Iron 46 L (59-158) ug/dL TIBC 162 mcg/dl % Saturation 28.3 (20-50) % Unsat Iron Binding 116 (112-347) ug/dL Troponin T Baselin e (0-15) ng/L NT-Pro-B Natriuret Pep (0-125) pg/mL SARS-CoV-2 Ag (Rap id) Negative (Negative) Blood Type Rho(D) Type Antibody Screen Crossmatch 08/08/20 Range/Units 02:20 WBC (4.0-10.0) 10^3/ uL RBC (4.1-5.3) 10^6/u L Hgb (11.7-16.6) g/dL Hct (42.0-52.0) % MCV (80-94) fL MCH (28.0-34.0) pg MCHC (30.0-36.0) g/dL RDW (12.1-15.1) % Plt Count (130-400) 10^3/c mm MPV (7.4-10.4) fL Neut % (Auto) % Lymph % (Auto) % [place] % (Auto) % Eos % (Auto) % Baso % (Auto) % Neut # (Auto) (1.8-7.7) 10^3/u L Lymph # (Auto) (0.8-4.8) 10^3/u L [place] # (Auto) (0.2-0.9) 10^3/u L Eos # (Auto) (0.0-0.8) 10^3/u L Baso # (Auto) (0.0-0.1) 10^3/u L Nucleated RBC % (a uto) % Nucleated RBCs # /100WBC APTT (23.9-36.7) SECO NDS Sodium (136-145) mmol/L Potassium (3.5-5.1) mmol/L Chloride (98-107) mmol/L Carbon Dioxide (22-29) mmol/L Anion Gap (5-19) BUN (8-23) mg/dL Creatinine (0.7-1.2) mg/dL GFR Calculation (90-130) mL/min Glucose (65-115) mg/dL Calculated Osmolal ity (285-295) mOsm/k g Calcium (8.5-10.5) mg/dL Iron (59-158) ug/dL TIBC mcg/dl % Saturation (20-50) % Unsat Iron Binding (112-347) ug/dL Troponin T Baselin e (0-15) ng/L NT-Pro-B Natriuret Pep (0-125) pg/mL SARS-CoV-2 Ag (Rap id) (Negative) Blood Type A Positive Rho(D) Type Positive / 4+ Antibody Screen Negative Crossmatch See Detail Discharge Plan Discharge Patient Disposition: Admitted As Inpatient Admit Provider: Matheus Ennis Clinical Impression: Non-ST elevated myocardial infarction (non-STEMI), Chronic kidney disease (CKD) stage G5/A1, glomerular filtration rate (GFR) less than or equal to 15 mL/min/1.73 square meter and albuminuria creatinine ratio less than 30 mg/g Condition: Stable Discharge Diet: As Directed, Cardiac and Diabetic Discharge Activity: Limit activity as instructed and Oxygen as instructed Coding Level of Care Code ED Veneer Stock Layer for Les Fuentes
--- NOTE | 2020-08-08 03:47 | ECG_ITS ---
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
--- NOTE | 2020-08-08 03:57 | US_ITS ---
WS: [id number] ULTRASOUND RENAL TECHNIQUE: Ultrasound examination of both kidneys. CLINICAL INFORMATION: IVAN COMPARISON: February 01, 2020 FINDINGS: Increased parenchymal echogenicity bilaterally can be seen with medical renal disease RIGHT: Right kidney is normal in size and appearance. Echogenicity: Normal. Cortical thickness: 1.1 cm; Normal. Hydronephrosis: None. Perinephric fluid: None. Right kidney measures: 10.7 cm x 6.5 cm x 6.4 cm. LEFT: Left kidney is normal in size and appearance. Echogenicity: Normal. Cortical thickness: 1.1 cm; Normal. Hydronephrosis: None. Perinephric fluid: None. Left kidney measures: 9.8 cm x 4.8 cm x 5.4 cm. Normal visualized aorta. Ansari catheter US/US renal BI* [id number] IMPRESSION: 1. No hydronephrosis in either kidney. 2. Ansari catheter. 3. Simple right cortical cyst measuring 3.7 x 3.5 x 3.5 cm
--- NOTE | 2020-08-08 04:00 | ECG_ITS ---
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1950 Requested By: Matheus Urias Order Number: [id number] Reading MD: GUY LEARY Measurements Intervals [place] Rate: 71 P: -7 WV: 226 QRS: 3 QRSD: 113 T: 30 QT: 417 QTc: 453 Interpretive Statements SINUS RHYTHM WITH FIRST DEGREE AV BLOCK WITH OCCASIONAL SUPRAVENTRICULAR PREMATURE COMPLEXES MODERATE INTRAVENTRICULAR CONDUCTION DELAY [110+ ms QRS DURATION] Compared to ECG 02/03/2020 13:50:18 Intraventricular conduction delay now present T-wave abnormality no longer present Electronically Signed On 08-08-2020 23:43:38 CDT by GUY LEARY [email or web address]/NU/[id number] f
--- NOTE | 2020-08-08 04:07 | P.HP_ITS ---
Providers/Chief Complaint Primary Care Provider: LEÓN SEGOVIA MD Chief Complaint: chest pain, arm tingle History of Present Illness Eliazar Hogan is a 70 year old male with past medical history of coronary artery disease, stents, last one in 2012, hypertension, chronic kidney disease stage IV-V, diabetes, diabetic neuropathy, recurrent nosebleeds, dyslipidemia, hypothyroidism, GERD, CVA, severe peripheral vascular disease who is presenting with chest pain. The chest pain started about 2 days ago. It is intermittent. Mostly triggered by physical activities. Substernal pressure type with radiation to his shoulders and neck. Moderate in intensity. Nitroglycerin did not provide significant improvement. Currently resolved. Denies associated shortness of breath, diaphoresis, palpitations, dizziness or lightheadedness. Reports similar in the past. EKG showed sinus with first-degree AV block, no acute ischemic changes. However his troponin is elevated. Chest x-ray revealed some congestion.(Please see official radiology report when it is available.) Patient reports recurrent nosebleeding. He bled before arriving to the emergency room. Currently it has stopped. He received aspirin on the way. In the emergency room he was found to have anemia which is worsened compared to his baseline. 1 unit of PRBCs is ordered. Review of Systems General: Reports: 10 or more systems reviewed and unremarkable except in HPI and below Medications/Allergies Home Medications Medication Instructions Recorded Confirmed Last Taken Type acetaminophen 500 mg tablet 1,000 mg PO Q6H PRN 05/05/19 07/26/20 01/24/20 History escitalopram oxalate 10 mg tablet 10 mg PO DAILY tab 05/05/19 07/26/20 02/02/20 History hydralazine 100 mg tablet 100 mg PO TID 05/05/19 07/26/20 02/02/20 History isosorbide mononitrate 60 mg 60 mg PO QAM 05/05/19 07/26/20 02/02/20 History tablet,extended release 24 hr levothyroxine 25 mcg capsule 25 mcg PO DAILY cap 05/05/19 07/26/20 02/02/20 History nitroglycerin 0.4 mg sublingual 0.4 mg SUBLINGUAL Q5M PRN 05/05/19 07/26/20 Unknown History tablet pantoprazole 40 mg tablet,delayed 40 mg PO QAM 05/05/19 07/26/20 02/02/20 History release pravastatin 40 mg tablet 40 mg PO QPM tab 05/05/19 07/26/20 02/02/20 History terazosin 10 mg capsule 10 mg PO BID cap 05/05/19 07/26/20 02/02/20 History allopurinol 300 mg tablet 300 mg PO DAILY tab 05/06/19 07/26/20 02/02/20 History amlodipine 5 mg tablet 5 mg PO DAILY #90 tab 03/23/20 07/26/20 Unknown Rx metoprolol tartrate 75 mg tablet 75 mg PO BID #180 tab 03/23/20 07/26/20 Unknown Rx calcitriol 0.5 mcg capsule 0.5 mcg PO .COMPLEX cap 04/24/20 07/26/20 Unknown History furosemide 80 mg PO BID PRN 04/24/20 07/26/20 Unknown History insulin detemir U-100 100 unit/mL 62 unit SUBCUT DAILY ml 04/24/20 07/26/20 Unknown History (3 mL) subcutaneous pen Allergies Allergy/AdvReac Type Severity Reaction Status Date / Time chicken derived Allergy Unknown Unknown Verified 07/26/20 14:22 PFSH Acute PFSH: Medical History Acute kidney injury superimposed on CKD Anemia ASHD (arteriosclerotic heart disease) Carotid stenosis, bilateral Chronic back pain Chronic kidney disease (CKD) Congestive 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 CVA (cerebral vascular accident) Diabetes 1.5, managed as type 2 Dyslipidemia Edema Essential hypertension History of 2019 novel coronavirus disease (COVID-19) Hypothyroidism Myocardial infarction KAITLYNN (obstructive sleep apnea) Surgical History Previous back surgery S/P angioplasty with stent S/P cataract extraction Family History Mother CAD (coronary artery disease) Stroke Sister Hypertension Social History Smoking and tobacco status: former smoker Alcohol intake: never Household members: spouse Marital status: service: Yes branch: [employer] Current occupational status: employed History of recent travel: No Current gender identity: Male Vitals/I&O/Wt Last Vital Signs Temp 97.8 F 08/08/20 01:34 Pulse 68 08/08/20 01:48 Resp 20 H 08/08/20 03:03 BP 116/49 08/08/20 03:03 Pulse Ox 95 08/08/20 03:03 Weight last 48 hrs Weight 99.79 kg Physical Exam Narrative: EXAM NARRATIVE: Awake alert oriented. No acute distress. Mood and affect are appropriate. Skin is warm and dry. Moist mucous membranes Eyes PERRL, extraocular muscles are intact Neck supple. No JVD Lungs clear. No respiratory distress Heart S1, S2, regular Abdomen soft, obese, nontender, bowel sounds are present Extremities bilateral pedal edema, no cyanosis or calf tenderness bilaterally. Normal capillary refill Neuro evaluation without focal weakness. Normal speech. Data : 08/08/20 01:44 08/08/20 01:44 Other Labs: Laboratory Results WBC 15.4 10^3/uL (4.0-10.0) H 08/08/20 01:44 RBC 2.82 10^6/uL (4.1-5.3) L 08/08/20 01:44 Hgb 7.7 g/dL (11.7-16.6) L 08/08/20 01:44 Hct 24.8 % (42.0-52.0) L 08/08/20 01:44 MCV 87.9 fL (80-94) 08/08/20 01:44 MCH 27.3 pg (28.0-34.0) L 08/08/20 01:44 MCHC 31.0 g/dL (30.0-36.0) 08/08/20 01:44 RDW 17.9 % (12.1-15.1) H 08/08/20 01:44 Plt Count 185 10^3/cmm (130-400) 08/08/20 01:44 MPV 10.6 fL (7.4-10.4) H 08/08/20 01:44 Neut % (Auto) 85.6 % 08/08/20 01:44 Lymph % (Auto) 5.7 % 08/08/20 01:44 Martin % (Auto) 5.3 % 08/08/20 01:44 Eos % (Auto) 2.7 % 08/08/20 01:44 Baso % (Auto) 0.3 % 08/08/20 01:44 Neut # (Auto) 13.18 10^3/uL (1.8-7.7) H 08/08/20 01:44 Lymph # (Auto) 0.9 10^3/uL (0.8-4.8) 08/08/20 01:44 Martin # (Auto) 0.8 10^3/uL (0.2-0.9) 08/08/20 01:44 Eos # (Auto) 0.4 10^3/uL (0.0-0.8) 08/08/20 01:44 Baso # (Auto) 0.0 10^3/uL (0.0-0.1) 08/08/20 01:44 Nucleated RBC % (auto) 0 % 08/08/20 01:44 Nucleated RBCs # 0.0 /100WBC 08/08/20 01:44 APTT 33.3 SECONDS (23.9-36.7) 08/08/20 02:20 Sodium 135 mmol/L (136-145) L 08/08/20 01:44 Potassium 4.5 mmol/L (3.5-5.1) 08/08/20 01:44 Chloride 102 mmol/L (98-107) 08/08/20 01:44 Carbon Dioxide 14 mmol/L (22-29) L 08/08/20 01:44 Anion Gap 23.5 (5-19) H 08/08/20 01:44 BUN 142 mg/dL (8-23) H* 08/08/20 01:44 Creatinine 8.1 mg/dL (0.7-1.2) H* 08/08/20 01:44 GFR Calculation 6.6 mL/min (90-130) L 08/08/20 01:44 Glucose 180 mg/dL (65-115) H 08/08/20 01:44 Calculated Osmolality 331 mOsm/kg (285-295) H 08/08/20 01:44 Calcium 7.9 mg/dL (8.5-10.5) L 08/08/20 01:44 Troponin T Baseline 252 ng/L (0-15) H* 08/08/20 01:44 NT-Pro-B Natriuret Pep 4360 pg/mL (0-125) H 08/08/20 01:44 SARS-CoV-2 Ag (Rapid) Negative (Negative) 08/08/20 01:55 Blood Type A Positive 08/08/20 02:20 Rho(D) Type Positive / 4+ 08/08/20 02:20 Antibody Screen Negative 08/08/20 02:20 A&P Additional A&P Information 70 year old male with past medical history of coronary artery disease, stents, last one in 2012, hypertension, chronic kidney disease stage IV-V, diabetes, diabetic neuropathy, recurrent nosebleeds, dyslipidemia, hypothyroidism, GERD, CVA, severe peripheral vascular disease who is presenting with chest pain. Amandeep mullins has non-ST elevation PR, acute on chronic kidney failure, worsened anemia probably due to persistent nosebleeds. Non-ST elevation PR. Dr. Ryan was called by ER physician. He will see the rayne bernard in the morning. No heparin at this time due to nosebleeding and anemia. Chest pain currently has resolved. We will continue aspirin, home beta-artem, nitroglycerin as needed and is a Sorbide. We will increase the dose of statin. Fasting lipids in the morning. Acute kidney injury on top of chronic kidney disease stage IV-V versus advancing chronic kidney disease. We will insert Ansari, start gentle hydration. Renal ultrasound. We will request nephrology consultation in the morning. Anemia. Will receive transfusion of 1 unit PRBCs. We will continue monitoring. Hypertension, uncontrolled. Hypertensive urgency. We will resume his home medications. We will order as needed labetalol. Leukocytosis. Most likely reactive. No evidence of infection at this time. CODE STATUS. The patient wants to be full code. The plan of care was discussed with the patient. He verbalized understanding and agreement Attestations Medical Necessity Statement*: Based on my assessment of patient's current condition he will require more than 2 midnights for testing and treatments. 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
[2020-08-08 05:14] LABS: Troponin 5 2HR 243.6 ng/L (0-15); Troponin 5 2HR Delta -8.4 ABS# (0-10)
[2020-08-08] MEDS: isosorbide mononitrate ER 60 mg Tablet PO (05:43)
[2020-08-08] MEDS: pantoprazole DR 40 mg Tablet PO (05:43)
--- NOTE | 2020-08-08 05:56 | PC.NURSE ---
Patient arrived to ICU from ER at 0525.
--- NOTE | 2020-08-08 05:56 | PC.NURSE ---
1 unit Packed red blood cells began running at 0555. Continue care.
[2020-08-08] MEDS: sodium chloride 0.9% (100 ml) 100 ML (05:58)
[2020-08-08] MEDS: dextrose 5%-sod chloride 0.45% 1,000 ML 75 ML IV (06:01)
[2020-08-08 07:45] LABS: Glucose Point of Care 228 mg/dL (70-110)
--- NOTE | 2020-08-08 07:47 | ECG_ITS ---
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1950 Requested By: Kalpesh Vargas Order Number: [id number] Reading MD: GUY LEARY Measurements Intervals [place] Rate: 69 P: 30 MN: 231 QRS: 11 QRSD: 113 T: 38 QT: 428 QTc: 459 Interpretive Statements SINUS RHYTHM WITH FIRST DEGREE AV BLOCK WITH OCCASIONAL SUPRAVENTRICULAR PREMATURE COMPLEXES MODERATE INTRAVENTRICULAR CONDUCTION DELAY [110+ ms QRS DURATION] NONSPECIFIC T-WAVE ABNORMALITY WARNING: DATA QUALITY MAY AFFECT INTERPRETATION Compared to ECG 08/08/2020 03:55:29 Intraventricular conduction delay now present T-wave abnormality now present Electronically Signed On 08-08-2020 23:43:25 CDT by GUY LEARY [id number]
[2020-08-08 07:50] LABS: Basophils # 0.1 10^3/uL (0.0-0.1); Basophils % 0.4 %; Eosinophils # 0.4 10^3/uL (0.0-0.8); Hematocrit 25.7 % (42.0-52.0); Lymphocytes # 0.7 10^3/uL (0.8-4.8); Mean Corpuscular HGB Conc 31.1 g/dL (30.0-36.0); Mean Corpuscular Hemoglobin 27.6 pg (28.0-34.0); Mean Corpuscular Volume 88.6 fL (80-94); Mean Platelet Volume 9.8 fL (7.4-10.4); Monocytes # 0.8 10^3/uL (0.2-0.9); Monocytes % 5.9 %; Neutrophils # 11.46 10^3/uL (1.8-7.7); Neutrophils % 84.8 %; Nucleated Red Blood Cells % 0 %; Platelet Count 155 10^3/cmm (130-400); Red Cell Distribution Width 17.8 % (12.1-15.1); White Blood Count 13.5 10^3/uL (4.0-10.0)
--- NOTE | 2020-08-08 08:02 | USCV_ITS ---
Eliazar Hogan Age: 70 Gender: M : 1950 Exam Date: 08/08/2020 08:37 Ordering Phys: Tremaine Hopkins MD Technologist: Gypsy Han Exam Location: [facility] [place] Indication: CARDIOGENIC SHOCK BP: 100 / 51 HR: 69 Rhythm: Sinus Technical Quality: Fair MEASUREMENTS (Male / Female) Normal Values 2D ECHO LV Diastolic Diameter PLAX 5.1 cm 4.2 - 5.9 / 3.9 - 5.3 cm LV Systolic Diameter PLAX 3.5 cm LV Chamber Size 4.4 cm IVS Diastolic Thickness 1.3 cm 0.6 - 1.0 / 0.6 - 0.9 cm IVS Systolic Thickness 1.5 cm LVPW Diastolic Thickness 1.3 cm 0.6 - 1.0 / 0.6 - 0.9 cm LVPW Systolic Thickness 1.4 cm RV Chamber Size 4.4 cm LVOT Diameter 2.0 cm LV Ejection Fraction 2D Teich 58.8 % LV Ejection Fraction MOD 2C 44.1 % LV Ejection Fraction 2C AL 45.4 % LA Diameter 3.9 cm LA Width 4.4 cm LA Height 6.4 cm RA Width 4.2 cm RA Height 5.9 cm Aorta at Sinotubular Diameter 3.4 cm M-MODE LV Diastolic Diameter MM 5.0 cm 4.2 - 5.9 / 3.9 - 5.3 cm LV Systolic Diameter MM 3.2 cm LV Ejection Fraction MM Teich 65.0 % IVS Diastolic Thickness MM 1.8 cm 0.6 - 1.0 / 0.6 - 0.9 cm IVS Systolic Thickness MM 2.0 cm LVPW Diastolic Thickness MM 1.8 cm 0.6 - 1.0 / 0.6 - 0.9 cm LVPW Systolic Thickness MM 1.5 cm RV Diastolic Diameter MM 1.3 cm Aortic Annulus Diameter 3.7 cm LA Ao Ratio MM 1.1 MV E Point Septal Separation 0.4 cm DOPPLER AV Peak Velocity 192.0 cm/s LVOT Peak Velocity 129.3 cm/s AV Area Cont Eq vti 2.1 cm squared AV Area Cont Eq pk 2.2 cm squared MV Area PHT 3.4 cm squared Mitral E to A Ratio 0.9 MV E' Velocity 77.0 cm/s Mitral E to MV E' Ratio 13.1 Mitral E to LV E' Lateral Ratio 15.2 Mitral E to LV E' Septal Ratio 11.6 TR Peak Velocity 275.6 cm/s TR Peak Gradient 30.4 mmHg TR Mean Velocity 246.7 cm/s TR Mean Gradient 25.7 mmHg TR Velocity Time Integral 120.2 cm TV Peak E Velocity 78.0 cm/s Right Atrial Pressure 3.0 mmHg Pulmonary Artery Systolic Pressu 33.4 mmHg PV Peak Velocity 99.0 cm/s RV Acceleration Time 0.1 s RV Ejection Time 0.4 s RV AcT/ET 0.3 FINDINGS Left Ventricle Normal left ventricular cavity size. Normal left ventricular systolic function. Left ventricular ejection fraction is estimated at 65 %. No regional wall motion abnormalities. Grade I/IV diastolic dysfunction (abnormal relaxation filling pattern), normal to mildly elevated filling pressures. Right Ventricle The right ventricle is normal in size and function. Right Atrium The right atrium is normal in size. Left Atrium The left atrium is normal in size. Mitral Valve Severely thickened mitral valve. Severe mitral annular calcification. No mitral valve stenosis. Mild mitral valve regurgitation. Aortic Valve Moderate aortic valve calcification. No aortic valve stenosis. No aortic valve regurgitation. Tricuspid Valve Structurally normal tricuspid valve without significant stenosis or regurgitation. Pulmonary artery systolic pressure is normal. Pulmonic Valve Structurally normal pulmonic valve without significant stenosis. There is no pulmonic regurgitation. Pericardium Normal pericardium without effusion. Aorta Normal ascending aorta dimension. CONCLUSIONS 1-Normal left ventricular cavity size. Normal left ventricular systolic function. Left ventricular ejection fraction is estimated at 65 %. No regional wall motion abnormalities. Grade I/IV diastolic dysfunction (abnormal relaxation filling pattern), normal to mildly elevated filling pressures. 2-Severely thickened mitral valve. Severe mitral annular calcification. No mitral valve stenosis. Mild mitral valve regurgitation. 3-Moderate aortic valve calcification. No aortic valve stenosis. No aortic valve regurgitation. 4-There is no pericardial effusion. 5-Pulmonary artery systolic pressure is within normal limits. 6-There is no pericardial effusion. 7-Pulmonary artery systolic pressure is within normal limits. 8-No significant change since the prior echocardiogram study of 02/20/2019. Kenya Ryan MD (Electronically Signed) Final Date: 26 Aug 2020 16:21 S
[2020-08-08 08:10] LABS: Anion Gap 24.4 (5-19); Calcium 8.2 mg/dL (8.5-10.5); Carbon Dioxide 13 mmol/L (22-29); Chloride 100 mmol/L (98-107); Glomerular Filtration Rate 6.8 mL/min (90-130); Glucose 197 mg/dL (65-115); Magnesium 2.5 mg/dL (1.7-2.3); Potassium 4.4 mmol/L (3.5-5.1); Sodium 133 mmol/L (136-145)
[2020-08-08 08:21] LABS: Osmolality Calculated 326 mOsm/kg (285-295)
[2020-08-08 08:22] LABS: Blood Urea Nitrogen 137 mg/dL (8-23); Troponin 5 6HR 200.3 ng/L (0-15)
[2020-08-08] MEDS: levothyroxine 25 mcg Tablet PO (08:31)
[2020-08-08] MEDS: atorvastatin 40 mg Tablet 80 MG PO (08:31)
[2020-08-08] MEDS: metoprolol tartrate 50 mg Tablet 75 MG PO (08:32)
[2020-08-08] MEDS: FUROsemide 10 mg/mL SDV 4mL 40 MG IVP (08:55)
[2020-08-08] MEDS: metOLazone 5 MG Tablet PO ×2 (09:30→17:43)
[2020-08-08] MEDS: FUROsemide 100 MG in sodium chloride 0.9% 40 ML IV ×2 (09:30→16:45)
[2020-08-08 09:37] LABS: Potassium, Radom Urine 38 mmol/L; Urine Creatinine 116 mg/dL (39-259)
--- NOTE | 2020-08-08 09:49 | PC.CHAP ---
Pastoral Care Encounter/Spiritual Assessment Type of Contact [] Declined flatwork finisher hand visit [] Patient/Family/Request visit [] Outpatient visit [] Follow-up visit [] Physician referral [] Code/Alert [x] Routine visit [] Staff referral [] Actively dying [] Patient sleeping [] Family support [] [] Out of room [] Palliative care [] [x] Receiving care in room [] Pre-surgical visit [] Trauma [] Long length of stay [x] ICU visit [] Other: Relational/Emotional Strength [] Patient feels connected with others/family/visitors/staff [] Distress [] Loneliness/isolation [] Abandonment Spirituality of Patient [] Person of Zulma [] Attends Roman Catholic of their Zulma [] Believes in Prayer [] Reads Bible or Restorationism materials [] There are Spiritual issues to be addressed Internship Coordinator Interventions [x] Prayer [] Active listening [] Non-anxious presence [] Spiritual/emotional support [] Crisis/trauma care [] Spiritual counseling [] Bereavement support [] Provided bereavement packet [] Provided Bible/devotional materials [] Provided toy/stuffed animal, coloring book to patient or family member [] Provided Communion [] Anointing/[place] [] Salvation [x] Completed spiritual assessment [] Other: Impact on Illness or Injury [] Angry [] Fearful [] Anxious [] Often cries [] Exhaustion [] Unable to work [] Unable to attend adventism [] Unable to walk/stand [] Unable to read [] Unable to drive [] Unable to eat/drink [] Unable to sleep [] Unable to be with family [] Patient intubated [] Other: Summary Time spent with patient
[2020-08-08 09:53] LABS: Urea Nitrogen,Urine Random 477 mg/dL; Urine Random Chloride < 10 mmol/L; Urine Random Sodium 13 mmol/L
--- NOTE | 2020-08-08 10:00 | ECG_ITS ---
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 Measurements Intervals [place] Rate: 66 P: 39 [place]: 273 QRS: 11 QRSD: 107 T: 27 QT: 425 QTc: 448 Interpretive Statements SINUS RHYTHM WITH FIRST DEGREE AV BLOCK NONSPECIFIC T-WAVE ABNORMALITY Compared to ECG 08/08/2020 06:03:29 Intraventricular conduction delay no longer present T-wave abnormality still present Electronically Signed On 08-08-2020 12:33:10 CDT by Tiara Bermeo M.D. [id number]
[2020-08-08 11:18] LABS: Glucose Point of Care 178 mg/dL (70-110)
--- NOTE | 2020-08-08 12:05 | PM.CONSULT ---
Providers/Reason For Consult Consulting Physican/Specialty*: Nephrology Reason for Consult*: Renal Failure Attending Physician: Tremaine Hopkins MD Primary Care Provider: LEÓN SEGOVIA MD History of Present Illness History of Present Illness Thank you for consultation, today had the pleasure of reviewing this very pleasant 70-year-old gentleman whom I had met previously back in January of last year. He has an established history of chronic kidney disease, last year was in the high 3 range, and he does follow as an outpatient with Dr. Mikey Simpson. Past medical history of CAD, bilateral carotid stenosis, CKD, CHF, CVA, diabetes mellitus, diabetic neuropathy, dyslipidemia, hypertension, obstructive sleep apnea, chronically on 4 L/min home O2, former smoker. He now presents again to our facility with substernal pressure with radiation to his shoulders and neck, resolved by nitroglycerin. Admission EKG demonstrated sinus rhythm with first-degree AV block and no overt ischemic changes. Troponin level was elevated at 252. He is overtly fluid overloaded, severely anasarcic with vascular congestion on chest x-ray. He has been receiving diuretics. As an outpatient he claims his Lasix dosing has not been changed recently but he has been compliant with his diuretic dosing. Following hospitalization a Ansari catheter has been placed, urine output has been somewhat lackluster so far only producing 150 mL over the last couple of hours. He denies any overt uremic symptoms including nausea vomiting myoclonus, altered mental status etc. Ultrasound scan of the kidneys demonstrates no evidence of hydronephrosis, On admission serum creatinine it was overtly elevated at 8.1. Sodium is low 133, bicarb down to 13 with an anion gap is elevated at 24.4. Hemodynamics remain soft but stable following hospitalization. Review of Systems Narrative: ROS - 12 point review of systems completed per HPI and subjective assessment, this includes Constitutional: Weakness, fatigue Respiratory: No SOB on exertion, comfortable at rest CardioVasc: No chest pain, palpitations Gastrointestinal: No nausea, no vomiting Neurological: No seizures, no AMS Derm: No new rashes, lesions or wounds Immunological: No seasonal and no food allergies Meds/Allergies Home Medications and Allergies Home Medications Medication Instructions Recorded Confirmed Last Taken Type acetaminophen 500 mg tablet 1,000 mg PO Q6H PRN 05/05/19 07/26/20 01/24/20 History escitalopram oxalate 10 mg tablet 10 mg PO DAILY tab 05/05/19 07/26/20 02/02/20 History hydralazine 100 mg tablet 100 mg PO TID 05/05/19 07/26/20 02/02/20 History isosorbide mononitrate 60 mg 60 mg PO QAM 05/05/19 07/26/20 02/02/20 History tablet,extended release 24 hr levothyroxine 25 mcg capsule 25 mcg PO DAILY cap 05/05/19 07/26/20 02/02/20 History nitroglycerin 0.4 mg sublingual 0.4 mg SUBLINGUAL Q5M PRN 05/05/19 07/26/20 Unknown History tablet pantoprazole 40 mg tablet,delayed 40 mg PO QAM 05/05/19 07/26/20 02/02/20 History release pravastatin 40 mg tablet 40 mg PO QPM tab 05/05/19 07/26/20 02/02/20 History terazosin 10 mg capsule 10 mg PO BID cap 05/05/19 07/26/20 02/02/20 History allopurinol 300 mg tablet 300 mg PO DAILY tab 05/06/19 07/26/20 02/02/20 History amlodipine 5 mg tablet 5 mg PO DAILY #90 tab 03/23/20 07/26/20 Unknown Rx metoprolol tartrate 75 mg tablet 75 mg PO BID #180 tab 03/23/20 07/26/20 Unknown Rx calcitriol 0.5 mcg capsule 0.5 mcg PO .COMPLEX cap 04/24/20 07/26/20 Unknown History furosemide 80 mg PO BID PRN 04/24/20 07/26/20 Unknown History insulin detemir U-100 100 unit/mL 62 unit SUBCUT DAILY ml 04/24/20 07/26/20 Unknown History (3 mL) subcutaneous pen Allergies Allergy/AdvReac Type Severity Reaction Status Date / Time chicken derived Allergy Unknown Unknown Verified 07/26/20 14:22 Current Medications Current Medications Generic Name Dose Route Start Last Admin Trade Name Freq PRN Reason Stop Dose Admin Atorvastatin Calcium 80 mg 08/08/20 09:00 08/08/20 08:31 Atorvastatin 40 Mg Tablet PO 80 mg DAILY SAYRA Administration Hydralazine HCl 100 mg 08/08/20 09:00 08/08/20 08:49 Hydralazine 50 Mg Tablet PO Not Given TID SAYRA Furosemide 100 mg/ Sodium 50 mls @ 0 mls/hr 08/08/20 09:15 08/08/20 09:30 Chloride IV 10 mg/hr .Q0M SAYRA 5 mls/hr Administration Protocol Per Protocol Insulin Aspart 0 unit 08/08/20 08:00 08/08/20 08:31 Insulin Aspart 100 Unit/1 Ml SUBCUT 8 unit WM&BEDTIME SAYRA Administration Protocol Isosorbide Mononitrate 60 mg 08/08/20 06:00 08/08/20 05:43 Isosorbide Mononitrate Er 60 Mg Tablet PO 60 mg QAM SAYRA Administration Levothyroxine Sodium 25 mcg 08/08/20 09:00 08/08/20 08:31 Levothyroxine 25 Mcg Tablet PO 25 mcg DAILY SAYRA Administration Metolazone 5 mg 08/08/20 09:10 08/08/20 09:30 Metolazone 5 Mg Tablet PO 5 mg BID SAYRA Administration Metoprolol Tartrate 75 mg 08/08/20 09:00 08/08/20 08:32 Metoprolol Tartrate 50 Mg Tablet PO 75 mg BID SAYRA Administration Pantoprazole Sodium 40 mg 08/08/20 06:00 08/08/20 05:[address] 40 Mg Tablet PO 40 mg QAM SAYRA Administration Terazosin HCl 10 mg 08/08/20 09:00 08/08/20 08:50 Terazosin 5 Mg Capsule PO Not Given BID SAYRA PFSH Acute PFSH: Medical History Acute kidney injury superimposed on CKD Anemia ASHD (arteriosclerotic heart disease) Carotid stenosis, bilateral Chronic back pain Chronic kidney disease (CKD) Congestive 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 CVA (cerebral vascular accident) Diabetes 1.5, managed as type 2 Dyslipidemia Edema Essential hypertension History of 2019 novel coronavirus disease (COVID-19) Hypothyroidism Myocardial infarction KAITLYNN (obstructive sleep apnea) Surgical History Previous back surgery S/P angioplasty with stent S/P cataract extraction Family History Mother CAD (coronary artery disease) Stroke Sister Hypertension Social History Smoking and tobacco status: former smoker Alcohol intake: never Household members: spouse Marital status: service: Yes branch: [employer] Current occupational status: employed History of recent travel: No Current gender identity: Male Vitals/I&O/Wt Last Vital Signs Temp 97.6 F 08/08/20 11:19 Pulse 64 08/08/20 11:48 Resp 17 08/08/20 11:48 BP 105/48 08/08/20 11:48 Pulse Ox 98 08/08/20 11:48 08/07/20 08/08/20 08/08/20 22:59 06:59 14:59 Intake Total 0 / 0 350 / 350 Output Total 250 / 250 Balance 0 / 0 100 / 100 Weight last 48 hrs Weight 102.654 kg Weight 99.79 kg Physical Exam Narrative: EXAM NARRATIVE: Constitutional: Awake, comfortable HEENT: Wet mucosa, no jvp, non icteric Lungs: Bilaterally clear without discernible wheeze, rales in all lung zones CVS: S1 S2, no murmurs Abdo: Soft, BS ok Ext 4: 2-3+ edema, peripheral perfusion with no cyanosis Neurological: Grossly non-focal Urinary Catheter Management^: Ansari: Cath Placed During This Visit: yes Reason for Continuing Indwelling Catheter: Accurate Measurement of Urinary Output in Critically Ill Patients Urinary Catheter Date of Insertion: 08/08/20 Urinary Catheter Time of Insertion: 04:35 A&P Additional A&P Information 1. Overt renal failure He has oliguric renal failure with severe anasarca, markedly elevated creatinine. Urine sodium is low at 13 consistent with renal hypoperfusion. He is breathing comfortably with nasal cannula oxygen, and has no other overt acute indications for hemodialysis today. We will try high-dose diuretics including Lasix infusion at 10 mg/h and metolazone 5 mg twice a day. If there is an element of cardiorenal syndrome this may potentially treat this, however, I am somewhat pessimistic that we can pull him out of this there is highly likely that he will need dialysis tomorrow. I will keep n.p.o. this evening, and if the dialysis line is needed tomorrow, I would favor a tunneled dialysis catheter. No further imaging is required A.m. labs Strict ins and outs Dose medication for GFR less than 15 2. Chemistry Hyponatremia is mild, noncritical we will continue to follow. He has no overt anion gap metabolic acidosis, likely secondary to uremia but I will check lactic acid levels. 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 Continue outpatient calcitriol. 3. Non-STEMI Defer evaluation to cardiology, likely to be secondary to heart strain from fluid overload. 4. Anemia Consistent with advanced kidney disease. Iron levels were low back in May, will recheck them before EPO dosing. León Catalan MD Nephrology [phone] Patient seen and examined via telemedicine, with the assistance of the bedside RN > 25 min spent in evaluation and mgmt of patient Coding Level of Care Code Acute Potato Chip Sorter for Les Fuentes
[2020-08-08 12:48] LABS: Iron 46 ug/dL (59-158); Percent Saturation 28.3 % (20-50); Total Iron Binding Capacity 162 mcg/dl; Unsaturated Iron Binding 116 ug/dL (112-347)
--- NOTE | 2020-08-08 13:00 | ECG_ITS ---
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
--- NOTE | 2020-08-08 13:05 | PM.PN ---
Subjective Subjective: Interval history: Patient was examined this morning, he tells me that he has had 2 to 3 days history of substernal chest pain, continues to have minimal chest pain intermittently, currently chest pain-free, he tells me that normally he does not urinate much, but for the last day or so he is not urinated much, no falls, no injuries, no history of nephrolithiasis, no history of UTIs, he does have chronic kidney disease stage IV, he follows up with a manager services in [place], he has been told that his kidney function was getting better, but dialysis is still a possibility, does report shortness of breath with exertion, Vitals/I&O/Wt Last Vital Signs Temp 97.6 F 08/08/20 11:19 Pulse 63 08/08/20 12:44 Resp 15 08/08/20 12:44 BP 90/44 08/08/20 12:44 Pulse Ox 98 08/08/20 12:44 08/07/20 08/08/20 08/08/20 22:59 06:59 14:59 Intake Total 0 / 0 350 / 350 Output Total 250 / 250 Balance 0 / 0 100 / 100 Weight last 48 hrs Weight 102.654 kg Weight 99.79 kg Physical Exam Const: COMMON NORMALS: no acute distress and patient oriented x3 HENMT: COMMON NORMALS: normocephalic HEAD & SCALP: normocephalic Neck/C-Spine: COMMON NORMALS: no JVD Resp: COMMON NORMALS: normal respiratory effort, No retractions and No use of accessory muscles AUSCULTATION: crackles Cardio: COMMON NORMALS: no JVD, regular rate, regular rhythm, S1 normal heart sound present and S2 normal heart sound present RATE: regular rate RHYTHM: regular rhythm HEART SOUNDS: S1 normal heart sound present and S2 normal heart sound present GI: COMMON NORMALS: Normal to inspection, nondistended, normoactive bowel sounds present, Soft to palpation, non-tender, No hepatosplenomegaly present, no masses and no bruits PALPATION: Yes Soft to palpation and Yes No hepatosplenomegaly present Extremity: COMMON NORMALS: no clubbing, cyanosis or edema and no calf tenderness NARRATIVE EXTREMITY EXAM: 1+ edema Neuro: COMMON NORMALS: patient oriented x3 Psych: COMMON NORMALS: mental status grossly normal Urinary Catheter Management^: Ansari: Cath Placed During This Visit: yes Reason for Continuing Indwelling Catheter: Accurate Measurement of Urinary Output in Critically Ill Patients Urinary Catheter Date of Insertion: 08/08/20 Urinary Catheter Time of Insertion: 04:35 Data : 08/08/20 07:43 08/08/20 07:43 A&P Assessment and plan (1) Acute kidney injury superimposed on CKD: -100 cc urine output -Creatinine 7.9, baseline creatinine 4 -Renal ultrasound negative for hydronephrosis -Does not look dehydrated -Likely acute renal failure related to cardiorenal syndrome, renal hypoperfusion Plan: -Consult nephrology -Did not respond significantly to 40 mg of IV Lasix -Switch to Lasix drip, order urine output, monitor electrolytes -Does look fluid overloaded, has anasarca, crackles on exam, plus edema, monitor respiratory status closely -If patient does not clinically improve by tomorrow, plan on dialysis catheter placement tomorrow, with dialysis -N.p.o. over midnight Plan for today, continue Lasix, monitor urine output, monitor for chest pain, monitor hemoglobin, follow cardiology's recommendations Status: Acute (2) Non-ST elevated myocardial infarction (non-STEMI): -Has complaints of intermittent chest pain -EKG shows sinus rhythm with first-degree AV block -Baseline troponin 252, 6-hour troponin 200.3, negative delta 51.7, BNP 4360 -Has a history of CAD -Etiology likely related to at anasarca, fluid overload, CHF -However cannot rule out underlying cardiac etiology Plan: -Start aspirin 81 mg, atorvastatin 80 mg, metoprolol, Imdur -Hold off on Plavix, heparin given concerns for anemia -Cardiac echocardiogram ordered -Monitor for chest pain, monitor telemetry -Cardiology on consult Status: Acute (3) Acute on chronic anemia: -Etiology likely multifactorial related to CKD, possible slow GI bleed, recurrent nosebleeds Plan: -Status post 1 unit PRBC, monitor hemoglobin, monitor hemodynamics, monitor for bloody or black stools -Hemoccult stool -Protonix 40 twice daily, Carafate -Monitor for nosebleeds, currently none Status: Acute (4) Chronic kidney disease (CKD) stage G5/A1, glomerular filtration rate (GFR) less than or equal to 15 mL/min/1.73 square meter and albuminuria creatinine ratio less than 30 mg/g: Status: Acute (5) Hypothyroidism: Status: Acute (6) Diabetes 1.5, managed as type 2: Status: Chronic (7) Essential hypertension: Status: Chronic (8) KAITLYNN (obstructive sleep apnea): Status: Acute (9) Dyslipidemia: Status: Chronic (10) Congestive 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: -Chronically on 2 to 3 L nasal cannula Status: Acute Additional A&P Information 70 year old male with past medical history of coronary artery disease, stents, last one in 2012, hypertension, chronic kidney disease stage IV-V, diabetes, diabetic neuropathy, recurrent nosebleeds, dyslipidemia, hypothyroidism, GERD, CVA, severe peripheral vascular disease who is presenting with chest pain. Patient has non-ST elevation FL, acute on chronic kidney failure, worsened anemia probably due to persistent nosebleeds. Leukocytosis. Most likely reactive. No evidence of infection at this time. CODE STATUS. The patient wants to be full code. The plan of care was discussed with the patient. He verbalized understanding and agreement Attestations Medical Necessity Statement*: Patient requires hospitalization, ICU, for acute renal failure, non-STEMI, acute anemia, critical care time spent over 45 minutes Coding Level of Care Code Acute De Alcoholizer for [facility] Fwd Diagnoses Acute kidney injury superimposed on CKD N17.9; N18.9 Non-ST elevated myocardial infarction (non-STEMI) I21.4 Acute on chronic anemia D64.9 Chronic kidney disease (CKD) stage G5/A1, glomerular filtration rate (GFR) less than or equal to 15 mL/min/1.73 square meter and albuminuria creatinine ratio less than 30 mg/g N18.5 Hypothyroidism E03.9 Diabetes 1.5, managed as type 2 E13.9 Essential hypertension I10 KAITLYNN (obstructive sleep apnea) G47.33 Dyslipidemia E78.5 Congestive 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 I11.0
[2020-08-08 13:33] LABS: Eosinophil Urine Eosinophils Seen; Urine Eosinophil Count 1 (0-0)
[2020-08-08] MEDS: pantoprazole 40 mg SDV IVP (13:41)
[2020-08-08] MEDS: aspirin 81 mg EC Tablet PO (13:41)
[2020-08-08] MEDS: sucralfate 1 gm Tablet PO ×2 (16:48→21:04)
--- NOTE | 2020-08-08 18:12 | PC.NURSE ---
[address] Hopkins. Reported UOP. Orders to DC IVF, an give IV Lasix. [address] Catalan Reported UOP. Orders for Lasix drip. [address] Hopkins. Clarified diet order. 1230 L/M with Dr. Catalan at pharmacy's request to clarify Procrit order. 1320 L/M with Dr. Catalan to clarify Procrit order. [address] Catalan who gave orders to give Procrit
[2020-08-08 18:36] LABS: Glucose Point of Care 119 mg/dL (70-110)
--- NOTE | 2020-08-08 19:00 | ECG_ITS ---
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
--- NOTE | 2020-08-08 19:13 | PM.CONSULT ---
Providers/Reason For Consult Consulting Physican/Specialty*: Cardiology Reason for Consult*: Acute current syndrome Attending Physician: Tremaine Hopkins MD Primary Care Provider: LEÓN SEGOVIA MD History of Present Illness History of Present Illness Eliazar Hogan is a 70 year old male past medical history significant for history of coronary artery disease with history of PCI, congestive heart failure, chronic kidney disease, chronic anemia, history of nosebleed and history of severe peripheral vascular disease was admitted with worsening of chest pain or shortness of breath noted to be volume overloaded with worsening of renal failure and anemia. Cardiac markers were elevated. Patient heparin was held due to anemia. He was ruled in for non-ST elevation CT. We have been asked to assist in his care. Currently he is chest pain-free and being diuresed. Review of Systems General: Reports: 10 or more systems reviewed and unremarkable except in HPI and below Narrative: ROS - 12 point review of systems completed per HPI and subjective assessment, this includes Constitutional: Weakness, fatigue Respiratory: No SOB on exertion, comfortable at rest CardioVasc: No chest pain, palpitations Gastrointestinal: No nausea, no vomiting Neurological: No seizures, no AMS Derm: No new rashes, lesions or wounds Immunological: No seasonal and no food allergies Const: Denies: fever(s) or diaphoresis Eyes: Denies: change in vision or photophobia ENMT: Denies: throat pain or enlarged tonsils Card: Reports: chest pain, edema and swelling of feet/ankles; Denies: palpitations or syncope Resp: Reports: dyspnea GI: Denies: abdominal pain, nausea or vomiting : Denies: flank pain Musc: Denies: neck pain, back pain or joint warmth Skin/Breast: Denies: rash or pruritus Neuro: Denies: headache(s) or numbness in extremities Psych: Denies: anxiety Jermain/Lymph: Denies: easy bruising or enlarged lymph nodes All/Imm: Denies: urticaria or acute wheezing Meds/Allergies Home Medications and Allergies Home Medications Medication Instructions Recorded Confirmed Last Taken Type acetaminophen 500 mg tablet 1,000 mg PO Q6H PRN 05/05/19 08/08/20 01/24/20 History escitalopram oxalate 10 mg tablet 10 mg PO DAILY@05 tab 05/05/19 08/08/20 08/08/20 History hydralazine 100 mg tablet 100 mg PO TID 05/05/19 08/08/20 02/02/20 History isosorbide mononitrate 60 mg 60 mg PO DAILY@05 05/05/19 08/08/20 02/02/20 History tablet,extended release 24 hr levothyroxine 25 mcg capsule 25 mcg PO DAILY@05 cap 05/05/19 08/08/20 02/02/20 History nitroglycerin 0.4 mg sublingual 0.4 mg SUBLINGUAL Q5M PRN 05/05/19 08/08/20 Unknown History tablet pantoprazole 40 mg tablet,delayed 40 mg PO DAILY@0500 05/05/19 08/08/20 02/02/20 History release pravastatin 40 mg tablet 40 mg PO DAILY@1800 tab 05/05/19 08/08/20 02/02/20 History terazosin 10 mg capsule 10 mg PO BID@05,18 cap 05/05/19 08/08/20 02/02/20 History allopurinol 300 mg tablet 300 mg PO DAILY@1800 tab 05/06/19 08/08/20 02/02/20 History metoprolol tartrate 75 mg tablet 75 mg PO BID #180 tab 03/23/20 08/08/20 Unknown Rx calcitriol 0.5 mcg capsule 0.5 mcg PO .COMPLEX cap 04/24/20 08/08/20 Unknown History furosemide 80 mg PO BID PRN 04/24/20 08/08/20 Unknown History insulin detemir U-100 100 unit/mL See Rx Instructions .ROUTE 04/24/20 08/08/20 Unknown History (3 mL) subcutaneous pen .COMPLEX ml amlodipine 5 mg PO DAILY@08/08/20 08/08/20 Unknown History Allergies Allergy/AdvReac Type Severity Reaction Status Date / Time chicken derived Allergy Unknown Unknown Verified 07/26/20 14:22 Current Medications Current Medications Generic Name Dose Route Start Last Admin Trade Name Freq PRN Reason Stop Dose Admin Aspirin 81 mg 08/08/20 13:15 08/08/20 13:41 Aspirin 81 Mg Ec Tablet PO 81 mg DAILY SAYRA Administration Atorvastatin Calcium 80 mg 08/08/20 09:00 08/08/20 08:31 Atorvastatin 40 Mg Tablet PO 80 mg DAILY SAYRA Administration Hydralazine HCl 100 mg 08/08/20 09:00 08/08/20 14:19 Hydralazine 50 Mg Tablet PO Not Given TID SAYRA Furosemide 100 mg/ Sodium 50 mls @ 0 mls/hr 08/08/20 09:15 08/08/20 16:45 Chloride IV 10 mg/hr .Q0M SAYRA 5 mls/hr Administration Protocol Per Protocol Insulin Aspart 0 unit 08/08/20 08:00 08/08/20 17:05 Insulin Aspart 100 Unit/1 Ml SUBCUT Not Given WM&BEDTIME SAYRA Protocol Isosorbide Mononitrate 60 mg 08/08/20 06:00 08/08/20 05:43 Isosorbide Mononitrate Er 60 Mg Tablet PO 60 mg QAM SAYRA Administration Levothyroxine Sodium 25 mcg 08/08/20 09:00 08/08/20 08:31 Levothyroxine 25 Mcg Tablet PO 25 mcg DAILY SAYRA Administration Metolazone 5 mg 08/08/20 09:10 08/08/20 17:43 Metolazone 5 Mg Tablet PO 5 mg BID SAYRA Administration Metoprolol Tartrate 75 mg 08/08/20 09:00 08/08/20 17:05 Metoprolol Tartrate 50 Mg Tablet PO Not Given BID SAYRA Pantoprazole Sodium 40 mg 08/08/20 13:30 08/08/20 13:41 Pantoprazole 40 Mg Sdv IVP 40 mg Q12H SAYRA Administration Sucralfate 1 gm 08/08/20 17:00 08/08/20 16:48 Sucralfate 1 Gm Tablet PO 1 gm AC&BEDTIME SAYRA Administration Terazosin HCl 10 mg 08/08/20 09:00 08/08/20 17:05 Terazosin 5 Mg Capsule PO Not Given BID SAYRA PFSH Acute PFSH: Medical History Acute kidney injury superimposed on CKD Anemia ASHD (arteriosclerotic heart disease) Carotid stenosis, bilateral Chronic back pain Chronic kidney disease (CKD) Congestive 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 CVA (cerebral vascular accident) Diabetes 1.5, managed as type 2 Dyslipidemia Essential hypertension History of 2019 novel coronavirus disease (COVID-19) Hypothyroidism Myocardial infarction KAITLYNN (obstructive sleep apnea) Surgical History Previous back surgery S/P angioplasty with stent S/P cataract extraction Family History Mother CAD (coronary artery disease) Stroke Sister Hypertension Social History Smoking and tobacco status: former smoker Alcohol intake: never Household members: spouse Marital status: service: Yes branch: [employer] Current occupational status: employed History of recent travel: No Current gender identity: Male Vitals/I&O/Wt Last Vital Signs Temp 98.0 F 08/08/20 15:30 Pulse 65 08/08/20 18:00 Resp 17 08/08/20 18:00 BP 101/47 08/08/20 18:00 Pulse Ox 98 08/08/20 18:00 08/08/20 08/08/20 08/08/20 06:59 14:59 22:59 Intake Total 0 / 0 350 / 350 436.25 / 786.25 Output Total 300 / 300 150 / 450 Balance 0 / 0 50 / 50 286.25 / 336.25 Weight last 48 hrs Weight 226 lb 5 oz Weight 220 lb Physical Exam Narrative: EXAM NARRATIVE: GENERAL: Patient is alert, awake and oriented x3. NECK: No jugular vein distension. HEENT: No cyanosis. No icterus. No pallor. HEART: Regular S1 and S2. No murmur, rub or gallop. LUNGS: Basal crackles bilaterally. ABDOMEN: Soft, nontender and nondistended. Positive bowel sounds. No guarding, rebound or tenderness. CENTRAL NERVOUS SYSTEM: Grossly nonfocal. EXTREMITIES: Lower extremities without edema bilaterally. Urinary Catheter Management^: Ansari: Cath Placed During This Visit: yes Reason for Continuing Indwelling Catheter: Accurate Measurement of Urinary Output in Critically Ill Patients Urinary Catheter Date of Insertion: 08/08/20 Urinary Catheter Time of Insertion: 04:35 A&P Assessment and plan (1) Non-ST elevated myocardial infarction (non-STEMI): This is a very complicated patient with prior history of coronary artery disease presented with anemia history of recurrent nosebleed worsening of renal failure congestive heart failure. He is high risk for bleeding and primary PCI due to underlying comorbidities. I will ask for echocardiogram to assess LV function. We will for now optimize his medications. He is being diuresed with the help of nephrology. He may will be requiring dialysis at some point once started dialysis and stabilized anemia sunshine may consider left heart cath. For now continue aspirin statin beta-artem and P2 Y 12 inhibitor. Add isosorbide mononitrate. Status: Acute (2) Congestive 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: Appear to be reasonably compensated but still has crackles in the lower lungs. Hopefully with dialysis as her volume status will further improve. Status: Acute (3) Essential hypertension: Well-controlled. Continue to monitor Status: Chronic (4) Acute kidney injury superimposed on CKD: As per nephrology. Status: Acute (5) Anemia: Continue to monitor Status: Acute Consult Attestations Medical Necessity Statement: Patient require continuation for above defined care Coding Level of Care Code New Pt Acute Import And Export Clerk for Chg Fwd Patient Type New Medical Decision Making High Complexity Diagnoses Non-ST elevated myocardial infarction (non-STEMI) I21.4 Congestive 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 I11.0 Essential hypertension I10 Acute kidney injury superimposed on CKD N17.9; N18.9 Anemia D64.9
[2020-08-08 21:16] LABS: Glucose Point of Care 207 mg/dL (70-110)
--- NOTE | 2020-08-08 22:00 | ECG_ITS ---
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[id number] Requested By: Matheus Urias Order Number: [id number] Reading MD: GUY LEARY Measurements Intervals Str[place]hers Rate: 82 P: 55 HI: 168 QRS: 42 QRSD: 116 T: 18 QT: 373 QTc: 436 Interpretive Statements SINUS RHYTHM INCOMPLETE RIGHT BUNDLE BRANCH BLOCK [90+ ms QRS DURATION, TERMINAL R IN V1/V2, 40+ ms S IN I/aVL/V4/V5/V6] INFERIOR MYOCARDIAL INFARCTION [40+ ms Q WAVE AND/OR ST/T ABNORMALITY IN II/aVF], PROBABLY OLD PROBABLE ANTEROLATERAL MYOCARDIAL INFARCTION [35 ms Q WAVE IN I/aVL/V3-V6], OF INDETERMINATE AGE Compared to ECG 08/08/2020 19:57:08 Incomplete right bundle-branch block now present Myocardial infarct finding now present First degree AV block no longer present Electronically Signed On 08-08-2020 23:41:59 CDT by GUY LEARY [id number]
[2020-08-09] VITALS (57 sets, daily range): BP systolic 83–158; BP diastolic 41–88; PULSE 64–78; RESP 12–23; TEMP 36.3–36.6; O2SAT 92–100
--- NOTE | 2020-08-09 | SCC_ITS ---
Procedure Done: 1. Placement of tunneled 16 Pal[place] 23 cm long AshSplit hemodialysis catheter 56.5 seconds of fluoroscopic guidance, for a cumulative dose of 10.98 mGy, was provided to Dr. Dao by the radiology department. C-arm images of the chest were saved for the patient's permanent record. [facility]
[2020-08-09] MEDS: pantoprazole 40 mg SDV IVP ×2 (01:59→12:41)
[2020-08-09] MEDS: FUROsemide 100 MG in sodium chloride 0.9% 40 ML IV ×2 (02:08→13:49)
[2020-08-09] MEDS: HYDROcodone-acetaminophen 5-325 mg Tablet 1 TAB PO ×3 (02:48→19:37)
[2020-08-09 04:17] LABS: Basophils # 0.1 10^3/uL (0.0-0.1); Basophils % 0.4 %; Eosinophils # 0.5 10^3/uL (0.0-0.8); Eosinophils % 3.7 %; Hematocrit 25.7 % (42.0-52.0); Hemoglobin 7.8 g/dL (11.7-16.6); Lymphocytes # 0.6 10^3/uL (0.8-4.8); Lymphocytes % 4.8 %; Mean Corpuscular HGB Conc 30.4 g/dL (30.0-36.0); Mean Corpuscular Hemoglobin 26.8 pg (28.0-34.0); Mean Corpuscular Volume 88.3 fL (80-94); Monocytes # 0.8 10^3/uL (0.2-0.9); Monocytes % 6.5 %; Neutrophils # 10.76 10^3/uL (1.8-7.7); Neutrophils % 83.7 %; Nucleated Red Blood Cells % 0 %; Platelet Count 165 10^3/cmm (130-400); Red Blood Count 2.91 10^6/uL (4.1-5.3); White Blood Count 12.9 10^3/uL (4.0-10.0)
[2020-08-09 04:22] LABS: INR 1.36 (0.8-1.2)
[2020-08-09 04:40] LABS: Thyroid Stimulating Hormone 2.01 uIU/mL (0.27-4.20)
[2020-08-09 04:41] LABS: Alanine Aminotransferase < 5 U/L (0-41); Albumin Level 3.2 g/dL (3.5-5.2); Alkaline Phosphatase 127 IU/L (40-130); Anion Gap 23.7 (5-19); Aspartate Amino Transferase 5 U/L (0-40); Calcium 7.9 mg/dL (8.5-10.5); Carbon Dioxide 14 mmol/L (22-29); Chloride 103 mmol/L (98-107); Glomerular Filtration Rate 5.9 mL/min (90-130); Glucose 125 mg/dL (65-115); Magnesium 2.4 mg/dL (1.7-2.3); Potassium 4.7 mmol/L (3.5-5.1); Sodium 136 mmol/L (136-145); Total Bilirubin 0.3 mg/dL (0.15-1.2); Total Protein 6.2 g/dL (6.6-8.7)
[2020-08-09 04:43] LABS: Cholesterol 84 mg/dL (0-200); HDL Cholesterol 28 mg/dL (60-100); LDL Cholesterol Calculated 38 mg/dL (50-129); LDL HDL Ratio 1.36 RATIO (0.00-3.22); NT Pro B Type Natriuretic Pept 7538 pg/mL (0-125); Triglycerides 88 mg/dL (0-150)
[2020-08-09 04:44] LABS: Osmolality Calculated 328 mOsm/kg (285-295)
[2020-08-09 04:45] LABS: Blood Urea Nitrogen 138 mg/dL (8-23)
[2020-08-09] MEDS: sucralfate 1 gm Tablet PO ×3 (06:12→20:21)
[2020-08-09] MEDS: morphine 4 mg/mL SDV 1 mL 2 MG IVP (06:17)
--- NOTE | 2020-08-09 07:30 | PM.PN ---
Subjective Subjective: Interval history: weak, lethargic, less sob. poor apeetite,, + nausea. no itching. no diarrhea. poor sleep Medications: Reviewed: Yes Medication Review Details: Current Medications Acetaminophen (Acetaminophen 325 Mg Tablet) 650 mg PO Q6H PRN PRN Reason: MILD PAIN Last Admin: 08/08/20 21:04 Dose: 650 mg Documented by: Hydrocodone Bitart/Acetaminophen (Hydrocodone-Acetaminophen 5-325 Mg Tablet) 1 tab PO Q4H PRN PRN Reason: MODERATE PAIN Last Admin: 08/09/20 02:48 Dose: 1 tab Documented by: Aspirin (Aspirin 81 Mg Ec Tablet) 81 mg PO DAILY [facility] Last Admin: 08/08/20 13:41 Dose: 81 mg Documented by: Atorvastatin Calcium (Atorvastatin 40 Mg Tablet) 80 mg PO DAILY [facility] Last Admin: 08/08/20 08:31 Dose: 80 mg Documented by: Dextrose (Dextrose 50% Syringe 50 Ml) 25 ml IVP ONCE PRN; Protocol PRN Reason: hypoglycemia protocol Dextrose (Dextrose 50% Syringe 50 Ml) 50 ml IVP PRN PRN; Protocol PRN Reason: hypoglycemia protocol Glucagon (Glucagon 1 Mg/Ml Inj 1 Ml) 1 mg IM ONCE PRN; Protocol PRN Reason: Adult Acute Hypoglycemia Prot. Hydralazine HCl (Hydralazine 50 Mg Tablet) 100 mg PO TID [facility] Last Admin: 08/08/20 20:48 Dose: Not Given Documented by: Dextrose (D5w) 500 mls @ 100 mls/hr IV ONCE PRN; Protocol PRN Reason: Adult Acute Hypoglycemia Prot Furosemide 100 mg/ Sodium (Chloride) 50 mls @ 0 mls/hr IV .Q0M [facility]; Protocol Last Admin: 08/09/20 02:08 Dose: 10 mg/hr, 5 mls/hr Documented by: Insulin Aspart (Insulin Aspart 100 Unit/1 Ml) 0 unit SUBCUT WM&BEDTIME [facility]; Protocol Last Admin: 08/08/20 21:04 Dose: 6 unit Documented by: Isosorbide Mononitrate (Isosorbide Mononitrate Er 60 Mg Tablet) 60 mg PO QAM [facility] Last Admin: 08/09/20 05:55 Dose: Not Given Documented by: Levothyroxine Sodium (Levothyroxine 25 Mcg Tablet) 25 mcg PO DAILY [facility] Last Admin: 08/08/20 08:31 Dose: 25 mcg Documented by: Metolazone (Metolazone 5 Mg Tablet) 5 mg PO BID [facility] Last Admin: 08/08/20 17:43 Dose: 5 mg Documented by: Metoprolol Tartrate (Metoprolol Tartrate 50 Mg Tablet) 75 mg PO BID [facility] Last Admin: 08/08/20 17:05 Dose: Not Given Documented by: Morphine Sulfate (Morphine 4 Mg/Ml Sdv 1 Ml) 2 mg IVP Q4H PRN PRN Reason: SEVERE PAIN Last Admin: 08/09/20 06:17 Dose: 2 mg Documented by: Nitroglycerin (Nitroglycerin 0.4 Mg Sublingual Tablet) 0.4 mg SUBLINGUAL Q5M PRN PRN Reason: Chest Pain Ondansetron HCl (Ondansetron 2 Mg/Ml Sdv 2 Ml) 4 mg IVP Q6H PRN PRN Reason: NAUSEA AND VOMITING Pantoprazole Sodium (Pantoprazole 40 Mg Sdv) 40 mg IVP Q12H [facility] Last Admin: 08/09/20 01:59 Dose: 40 mg Documented by: Sucralfate (Sucralfate 1 Gm Tablet) 1 gm PO AC&BEDTIME [facility] Last Admin: 08/09/20 06:12 Dose: 1 gm Documented by: Terazosin HCl (Terazosin 5 Mg Capsule) 10 mg PO BID [facility] Last Admin: 08/08/20 17:05 Dose: Not Given Documented by: Vitals/I&O/Wt Last Vital Signs Temp 98.0 F 08/08/20 15:30 Pulse 74 08/09/20 06:00 Resp 16 08/09/20 06:17 BP 89/54 08/09/20 06:00 Pulse Ox 97 08/09/20 06:00 08/08/20 08/09/20 08/09/20 22:59 06:59 14:59 Intake Total 556.25 / 906.25 1260.584 / 2166.834 Output Total 150 / 450 150 / 600 Balance 406.25 / 456.25 1110.584 / 1566.834 Weight last 48 hrs Weight 103.079 kg Weight 102.654 kg Weight 99.79 kg Physical Exam Narrative: EXAM NARRATIVE: lethargic, weak, ill appearing, using nc 02 nc/at, eomi, anicteric neck supple lungs- improved air movement b/l heart reg, no rub abd soft, nt, nd, +BS ext 1+ edema neuro- asterixis, weak, a,a, o x 3 Urinary Catheter Management^: Ansari: Cath Placed During This Visit: yes Reason for Continuing Indwelling Catheter: Accurate Measurement of Urinary Output in Critically Ill Patients Urinary Catheter Date of Insertion: 08/08/20 Urinary Catheter Time of Insertion: 04:35 Data : 08/09/20 03:41 08/09/20 03:41 A&P Additional A&P Information 1. 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 IVAN -low ur na likely from CArdiac disease -will hold metolazone check ua and ur pr and cr -low ur na - presumed form CHF/ low CO dec hydralazine w/ hypotension -initiate HD for 2.5 hrs, 2k bath, remove 1- 1.5 liters 3.Non STEMI- cath per cardiology 4. BP low- dec meds to allow for HD 5. anemia eval- high ferritin in may 2020 6. Bone- mineral- metabolism of CKD -phos 10= HD and renvela 7. CAD per cardiology 8. hyponatremia improved w/ lasix 9. KAITLYNN- bipap Patient seen and examined via telemedicine, with the assistance of the bedside RN > 25 min spent in evaluation and mgmt of patient Attestations Medical Necessity Statement*: IVAN/ ESRD, CHF Time Spent in Patient Care: 16 - 35 minutes Coding Level of Care Code Acute Blintze Roller for Les Fuentes
[2020-08-09 07:55] LABS: Glucose Point of Care 155 mg/dL (70-110)
--- NOTE | 2020-08-09 08:19 | USCV_ITS ---
Eliazar Hogan Age: 70 Gender: M : 1950 Exam Date: 08/09/2020 10:11 Ordering Phys: Tremaine Hopkins MD Technologist: Exam Location: [facility] [place] Indication: BILATERAL CALF PAIN HISTORY: Lower extremity pain. PROCEDURES: Venous duplex imaging was performed in bilateral lower extremities. The following venous structures were evaluated: common femoral vein, profunda vein, proximal portion of the greater saphenous vein, superficial femoral vein, and the popliteal vein. In addition, the posterior tibial and peroneal trunk were evaluated. Serial compression, augmentation maneuvers, and spectral Doppler flow evaluation were performed. FINDINGS: Normal 2-D Doppler and augmentation and compressibility throughout the lower extremity venous structures. Additional imaging through the proximal calf veins also reveals no thrombus. Limited evaluation of the greater saphenous vein is patent with no thrombus.. CONCLUSIONS No evidence of right lower extremity DVT. No evidence of left lower extremity DVT. David Gomez MD (Electronically Signed) Final Date: 09 August 2020 11:37 S
[2020-08-09 08:28] LABS: Urine Random Sodium 25 mmol/L
[2020-08-09 08:40] LABS: Ferritin 1540 ng/mL (30-400)
[2020-08-09 08:47] LABS: Add Urine Culture? Yes; Bacteria Urine TRACE /hpf; Bilirubin Urine Neg (Negative); Blood Urine 2+ (Negative); Glucose Urine UA Norm (Normal); Hyaline Casts Urine 0-4 /lpf; Ketones Urine Negative (Negative); Leukocyte Esterase Urine 2+ (Negative); Mucus Urine TRACE /hpf; Nitrate Urine Negative (Negative); Protein Urine Neg (Negative); RBC Urine 15-25 /hpf (0-2); Specific Gravity, Urine 1.015 (1.005-1.030); Squamous Epithelial Cell Urine 0-4 /hpf (0-5); Urine Appearance Clear (CLEAR); Urine Color Yellow (Yellow); Urobilinogen Urine Norm (Negative); WBC Urine 40-55 /hpf (0-5); pH Urine 5 (5-7)
[2020-08-09 09:19] LABS: Uric Acid 4.5 mg/dL (3.4-7.0)
[2020-08-09 09:26] LABS: Hepatitis B Surface AB 3.5 (11.5-1000); Hepatitis B Surface Antigen Non-Reactive (Nonreactive); Hepatitis C Virus Antibody Non-Reactive (Nonreactive)
--- NOTE | 2020-08-09 09:37 | PC.CHAP ---
Pastoral Care Encounter/Spiritual Assessment Type of Contact [] Declined grinding wheel facer visit [] Patient/Family/Request visit [] Outpatient visit [] Follow-up visit [] Physician referral [] Code/Alert [x] Routine visit [] Staff referral [] Actively dying [] Patient sleeping [] Family support [] [] Out of room [] Palliative care [] [x] Receiving care in room [] Pre-surgical visit [] Trauma [] Long length of stay [x] ICU visit [] Other: Relational/Emotional Strength [] Patient feels connected with others/family/visitors/staff [] Distress [] Loneliness/isolation [] Abandonment Spirituality of Patient [] Person of Zulma [] Attends Confucianist of their Zulma [] Believes in Prayer [] Reads Bible or Cheondoism materials [] There are Spiritual issues to be addressed Associate Drafter Interventions [x] Prayer [] Active listening [] Non-anxious presence [] Spiritual/emotional support [] Crisis/trauma care [] Spiritual counseling [] Bereavement support [] Provided bereavement packet [] Provided Bible/devotional materials [] Provided toy/stuffed animal, coloring book to patient or family member [] Provided Communion [] Anointing/[place] [] Salvation [x] Completed spiritual assessment [] Other: Impact on Illness or Injury [] Angry [] Fearful [] Anxious [] Often cries [] Exhaustion [] Unable to work [] Unable to attend mormonism [] Unable to walk/stand [] Unable to read [] Unable to drive [] Unable to eat/drink [] Unable to sleep [] Unable to be with family [] Patient intubated [] Other: Summary Time spent with patient
[2020-08-09 10:10] LABS: Erythrocyte Sedimentation Rate 80 mm/hr (0-10)
[2020-08-09 11:07] LABS: Glucose Point of Care 167 mg/dL (70-110)
--- NOTE | 2020-08-09 11:36 | PM.PN ---
Subjective Subjective: Interval history: Patient was examined this morning, he tells me that he has mild degree of chest pain, but tells me that it hurts all over, all his joints hurt him he tells me, he has not been sick recently, no fevers, no cough, no sick contacts, no recent travel, no new medications, he does have significant bilateral lower calf pain, quite tender to touch, he tells me this started about 2 weeks ago, he does have a history of gout, but it usually affects his great toe, patient had minimal urine output over the last shift, 100 cc, he understands that we are planning on dialysis today, with placement of dialysis catheter, he voiced understanding, all questions answered, agreed to proceed Medications: Medication Review Details: Current Medications Acetaminophen (Acetaminophen 325 Mg Tablet) 650 mg PO Q6H PRN PRN Reason: MILD PAIN Last Admin: 08/08/20 21:04 Dose: 650 mg Documented by: Hydrocodone Bitart/Acetaminophen (Hydrocodone-Acetaminophen 5-325 Mg Tablet) 1 tab PO Q4H PRN PRN Reason: MODERATE PAIN Last Admin: 08/09/20 02:48 Dose: 1 tab Documented by: Aspirin (Aspirin 81 Mg Ec Tablet) 81 mg PO DAILY [facility] Last Admin: 08/08/20 13:41 Dose: 81 mg Documented by: Atorvastatin Calcium (Atorvastatin 40 Mg Tablet) 80 mg PO DAILY [facility] Last Admin: 08/08/20 08:31 Dose: 80 mg Documented by: Dextrose (Dextrose 50% Syringe 50 Ml) 25 ml IVP ONCE PRN; Protocol PRN Reason: hypoglycemia protocol Dextrose (Dextrose 50% Syringe 50 Ml) 50 ml IVP PRN PRN; Protocol PRN Reason: hypoglycemia protocol Glucagon (Glucagon 1 Mg/Ml Inj 1 Ml) 1 mg IM ONCE PRN; Protocol PRN Reason: Adult Acute Hypoglycemia Prot. Hydralazine HCl (Hydralazine 50 Mg Tablet) 100 mg PO TID [facility] Last Admin: 08/08/20 20:48 Dose: Not Given Documented by: Dextrose (D5w) 500 mls @ 100 mls/hr IV ONCE PRN; Protocol PRN Reason: Adult Acute Hypoglycemia Prot Furosemide 100 mg/ Sodium (Chloride) 50 mls @ 0 mls/hr IV .Q0M [facility]; Protocol Last Admin: 08/09/20 02:08 Dose: 10 mg/hr, 5 mls/hr Documented by: Insulin Aspart (Insulin Aspart 100 Unit/1 Ml) 0 unit SUBCUT WM&BEDTIME [facility]; Protocol Last Admin: 08/08/20 21:04 Dose: 6 unit Documented by: Isosorbide Mononitrate (Isosorbide Mononitrate Er 60 Mg Tablet) 60 mg PO QAM [facility] Last Admin: 08/09/20 05:55 Dose: Not Given Documented by: Levothyroxine Sodium (Levothyroxine 25 Mcg Tablet) 25 mcg PO DAILY [facility] Last Admin: 08/08/20 08:31 Dose: 25 mcg Documented by: Metolazone (Metolazone 5 Mg Tablet) 5 mg PO BID [facility] Last Admin: 08/08/20 17:43 Dose: 5 mg Documented by: Metoprolol Tartrate (Metoprolol Tartrate 50 Mg Tablet) 75 mg PO BID [facility] Last Admin: 08/08/20 17:05 Dose: Not Given Documented by: Morphine Sulfate (Morphine 4 Mg/Ml Sdv 1 Ml) 2 mg IVP Q4H PRN PRN Reason: SEVERE PAIN Last Admin: 08/09/20 06:17 Dose: 2 mg Documented by: Nitroglycerin (Nitroglycerin 0.4 Mg Sublingual Tablet) 0.4 mg SUBLINGUAL Q5M PRN PRN Reason: Chest Pain Ondansetron HCl (Ondansetron 2 Mg/Ml Sdv 2 Ml) 4 mg IVP Q6H PRN PRN Reason: NAUSEA AND VOMITING Pantoprazole Sodium (Pantoprazole 40 Mg Sdv) 40 mg IVP Q12H [facility] Last Admin: 08/09/20 01:59 Dose: 40 mg Documented by: Sucralfate (Sucralfate 1 Gm Tablet) 1 gm PO AC&BEDTIME [facility] Last Admin: 08/09/20 06:12 Dose: 1 gm Documented by: Terazosin HCl (Terazosin 5 Mg Capsule) 10 mg PO BID [facility] Last Admin: 08/08/20 17:05 Dose: Not Given Documented by: Vitals/I&O/Wt Last Vital Signs Temp 97.7 F 08/09/20 07:00 Pulse 76 08/09/20 10:00 Resp 16 08/09/20 10:00 BP 101/43 08/09/20 10:00 Pulse Ox 96 08/09/20 10:00 08/08/20 08/09/2008/09/21 22:59 06:59 14:59 Intake Total 556.25 / 906.25 1260.584 / 2166.834 Output Total 150 / 450 150 / 600 Balance 406.25 / 456.25 1110.584 / 1566.834 Weight last 48 hrs Weight 103.079 kg Weight 102.654 kg Weight 99.79 kg Physical Exam Const: COMMON NORMALS: no acute distress and patient oriented x3 HENMT: COMMON NORMALS: normocephalic HEAD & SCALP: normocephalic Neck/C-Spine: COMMON NORMALS: no JVD Resp: COMMON NORMALS: normal respiratory effort, No retractions, No use of accessory muscles and clear to auscultation bilaterally AUSCULTATION: clear to auscultation bilaterally Cardio: COMMON NORMALS: no JVD, regular rate, regular rhythm, S1 normal heart sound present and S2 normal heart sound present RATE: regular rate RHYTHM: regular rhythm HEART SOUNDS: S1 normal heart sound present and S2 normal heart sound present GI: COMMON NORMALS: Normal to inspection, nondistended, normoactive bowel sounds present, Soft to palpation, non-tender, No hepatosplenomegaly present, no masses and no bruits PALPATION: Yes Soft to palpation and Yes No hepatosplenomegaly present Extremity: COMMON NORMALS: capillary refill normal and no clubbing, cyanosis or edema NARRATIVE EXTREMITY EXAM: Bilateral gaming, calf tenderness, 1+ pitting edema Neuro: COMMON NORMALS: patient oriented x3 Psych: COMMON NORMALS: mental status grossly normal Skin: NARRATIVE SKIN EXAM: Has generalized anasarca Urinary Catheter Management^: Ansari: Cath Placed During This Visit: yes Reason for Continuing Indwelling Catheter: Accurate Measurement of Urinary Output in Critically Ill Patients Urinary Catheter Date of Insertion: 08/08/20 Urinary Catheter Time of Insertion: 04:35 Data : 08/09/20 03:41 08/09/20 03:41 Micro: Microbiology 08/08/20 08:36 Urine Culture - Preliminary Urine Catheterized A&P Assessment and plan (1) Acute kidney injury superimposed on CKD: -100 cc urine output in the last 12 hours -Creatinine 8.9, baseline creatinine 4 -Renal ultrasound negative for hydronephrosis -Does not look dehydrated -Likely acute renal failure related to cardiorenal syndrome, renal hypoperfusion -UA does show eosinophils, eosinophil stain positive, ESR 80, but could be from Lasix, no new medications, rheumatologic titers pending, does take allopurinol which has been held Plan: -Consult nephrology -Did not respond to Lasix drip, surgery consulted for dialysis catheter placement, will have dialysis today -Does look fluid overloaded, has anasarca, crackles on exam, 1+ edema, monitor respiratory status closely -N.p.o. Plan for today, dialysis catheter placement, dialysis, monitor respiratory status, will get cardiology sample, bilateral extremity ultrasounds Status: Acute (2) Non-ST elevated myocardial infarction (non-STEMI): -Has complaints of intermittent chest pain -EKG shows sinus rhythm with first-degree AV block -Baseline troponin 252, 6-hour troponin 200.3, negative delta 51.7, BNP 4360 -Has a history of CAD -Etiology likely related to at anasarca, fluid overload, CHF -However cannot rule out underlying cardiac etiology Plan: -Start aspirin 81 mg, atorvastatin 80 mg, metoprolol, Imdur -Hold off on Plavix, heparin given concerns for anemia -Cardiac echocardiogram ordered -Monitor for chest pain, monitor telemetry -Cardiology on consult Status: Acute (3) Acute on chronic anemia: -Etiology likely multifactorial related to CKD, possible slow GI bleed, recurrent nosebleeds -Hemoglobin 7.8 Plan: -Status post 1 unit PRBC, monitor hemoglobin, monitor hemodynamics, monitor for bloody or black stools -Hemoccult stool -Protonix 40 twice daily, Carafate -Monitor for nosebleeds, currently none Status: Acute (4) Chronic kidney disease (CKD) stage G5/A1, glomerular filtration rate (GFR) less than or equal to 15 mL/min/1.73 square meter and albuminuria creatinine ratio less than 30 mg/g: Status: Acute (5) Hypothyroidism: Status: Acute (6) Diabetes 1.5, managed as type 2: Status: Chronic (7) Essential hypertension: Status: Chronic (8) KAITLYNN (obstructive sleep apnea): Status: Acute (9) Dyslipidemia: Status: Chronic (10) Congestive 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: -Chronically on 2 to 3 L nasal cannula Status: Acute Additional A&P Information 70 year old male with past medical history of coronary artery disease, stents, last one in 2012, hypertension, chronic kidney disease stage IV-V, diabetes, diabetic neuropathy, recurrent nosebleeds, dyslipidemia, hypothyroidism, GERD, CVA, severe peripheral vascular disease who is presenting with chest pain. Patient has non-ST elevation NE, acute on chronic kidney failure, worsened anemia probably due to persistent nosebleeds. Bilateral gaming pain, calf pain, will order renal ultrasound CODE STATUS. The patient wants to be full code. The plan of care was discussed with the patient. He verbalized understanding and agreement Attestations Medical Necessity Statement*: Patient requires hospitalization, for acute renal failure requiring dialysis, NSTEMI, fluid overload, Rickel care time spent over 45 minutes Coding Level of Care Code Acute It Technician for g Fwd Diagnoses Acute kidney injury superimposed on CKD N17.9; N18.9 Non-ST elevated myocardial infarction (non-STEMI) I21.4 Acute on chronic anemia D64.9 Chronic kidney disease (CKD) stage G5/A1, glomerular filtration rate (GFR) less than or equal to 15 mL/min/1.73 square meter and albuminuria creatinine ratio less than 30 mg/g N18.5 Hypothyroidism E03.9 Diabetes 1.5, managed as type 2 E13.9 Essential hypertension I10 KAITLYNN (obstructive sleep apnea) G47.33 Dyslipidemia E78.5 Congestive 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 I11.0
--- NOTE | 2020-08-09 13:42 | P.CONIM_ITS ---
Providers/Reason For Consult Consulting Physican/Specialty*: Dr. Yan Reason for Consult*: Hemodialysis access Attending Physician: Tremaine Hopkins MD Primary Care Provider: LEÓN SEGOVIA MD History of Present Illness History of Present Illness Eliazar Hogan is a 70 year old male with significant coronary artery disease including congestive heart failure who now presents with shortness of breath secondary to fluid overload from acute on chronic renal failure. Patient needs cardiac cath but now is being managed conservatively until his anemia secondary to nosebleeds have been addressed. Patient needs a dialysis access due to fluid overload. Patient apparently had central line placed on the left side for IV antibiotics in 2019. Review of Systems General: Reports: 10 or more systems reviewed and unremarkable except in HPI and below Meds/Allergies Home Medications and Allergies Home Medications Medication Instructions Recorded Confirmed Last Taken Type acetaminophen 500 mg tablet 1,000 mg PO Q6H PRN 05/05/19 08/08/20 01/24/20 History escitalopram oxalate 10 mg tablet 10 mg PO DAILY@05 tab 05/05/19 08/08/20 08/08/20 History hydralazine 100 mg tablet 100 mg PO TID 05/05/19 08/08/20 02/02/20 History isosorbide mononitrate 60 mg 60 mg PO DAILY@05 05/05/19 08/08/20 02/02/20 History tablet,extended release 24 hr levothyroxine 25 mcg capsule 25 mcg PO DAILY@05 cap 05/05/19 08/08/20 02/02/20 History nitroglycerin 0.4 mg sublingual 0.4 mg SUBLINGUAL Q5M PRN 05/05/19 08/08/20 Unknown History tablet pantoprazole 40 mg tablet,delayed 40 mg PO DAILY@0500 05/05/19 08/08/20 02/02/20 History release pravastatin 40 mg tablet 40 mg PO DAILY@1800 tab 05/05/19 08/08/20 02/02/20 History terazosin 10 mg capsule 10 mg PO BID@05,18 cap 05/05/19 08/08/20 02/02/20 History allopurinol 300 mg tablet 300 mg PO DAILY@1800 tab 05/06/19 08/08/20 02/02/20 History metoprolol tartrate 75 mg tablet 75 mg PO BID #180 tab 03/23/20 08/08/20 Unknown Rx calcitriol 0.5 mcg capsule 0.5 mcg PO .COMPLEX cap 04/24/20 08/08/20 Unknown History furosemide 80 mg PO BID PRN 04/24/20 08/08/20 Unknown History insulin detemir U-100 100 unit/mL See Rx Instructions .ROUTE 04/24/20 08/08/20 Unknown History (3 mL) subcutaneous pen .COMPLEX ml amlodipine 5 mg PO DAILY@05 08/08/20 08/08/20 Unknown History Allergies Allergy/AdvReac Type Severity Reaction Status Date / Time chicken derived Allergy Unknown Unknown Verified 07/26/20 14:22 Current Medications Current Medications Generic Name Dose Route Start Last Admin Trade Name Freq PRN Reason Stop Dose Admin Acetaminophen 650 mg 08/08/20 03:57 08/08/20 21:04 Acetaminophen 325 Mg Tablet PO 650 mg Q6H PRN Administration MILD PAIN Hydrocodone Bitart/Acetaminophen 1 tab 08/08/20 03:57 08/09/20 10:27 Hydrocodone-Acetaminophen 5-325 Mg Tablet PO 1 tab Q4H PRN Administration MODERATE PAIN Aspirin 81 mg 08/08/20 13:15 08/08/20 13:41 Aspirin 81 Mg Ec Tablet PO 81 mg DAILY SAYRA Administration Atorvastatin Calcium 80 mg 08/08/20 09:00 08/08/20 08:31 Atorvastatin 40 Mg Tablet PO 80 mg DAILY S[facility]RA Administration Hydralazine HCl 25 mg 08/09/20 09:00 08/09/20 08:18 Hydralazine 50 Mg Tablet PO Not Given TID SAYRA Furosemide 100 mg/ Sodium 50 mls @ 0 mls/hr 08/08/20 09:15 08/09/20 02:08 Chloride IV 10 mg/hr .Q0M SAYRA 5 mls/hr Administration Protocol Per Protocol Insulin Aspart 0 unit 08/08/20 08:00 08/09/20 11:30 Insulin Aspart 100 Unit/1 Ml SUBCUT Not Given WM&BEDTIME [facility] Protocol Isosorbide Mononitrate 60 mg 08/08/20 06:00 08/09/20 05:55 Isosorbide Mononitrate Er 60 Mg Tablet PO Not Given QAM [facility]RA Levothyroxine Sodium 25 mcg 08/08/20 09:00 08/08/20 08:31 Levothyroxine 25 Mcg Tablet PO 25 mcg DAILY [facility] Administration Metoprolol Tartrate 75 mg 08/08/20 09:00 08/08/20 17:05 Metoprolol Tartrate 50 Mg Tablet PO Not Given BID [facility]RA Morphine Sulfate 2 mg 08/08/20 03:57 08/09/20 06:17 Morphine 4 Mg/Ml Sdv 1 Ml IVP 2 mg Q4H PRN Administration SEVERE PAIN Pantoprazole Sodium 40 mg 08/08/20 13:30 08/09/20 12:41 Pantoprazole 40 Mg Sdv IVP 40 mg Q12H [facility] Administration Sevelamer Carbonate 1,600 mg 08/09/20 09:00 08/09/20 08:18 Sevelamer 800 Mg Tablet PO Not Given TID [facility]RA Sucralfate 1 gm 08/08/20 17:00 08/09/20 10:24 Sucralfate 1 Gm Tablet PO Not Given AC&BEDTIME [facility] Terazosin HCl 10 mg 08/08/20 09:00 08/09/20 08:18 Terazosin 5 Mg Capsule PO Not Given BID [facility] PFSH Acute PFSH: Medical History Acute kidney injury superimposed on CKD Anemia ASHD (arteriosclerotic heart disease) Carotid stenosis, bilateral Chronic back pain Chronic kidney disease (CKD) Congestive 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 CVA (cerebral vascular accident) Diabetes 1.5, managed as type 2 Dyslipidemia Essential hypertension History of 2019 novel coronavirus disease (COVID-19) Hypothyroidism Myocardial infarction KAITLYNN (obstructive sleep apnea) Surgical History Previous back surgery S/P angioplasty with stent S/P cataract extraction Family History Mother CAD (coronary artery disease) Stroke Sister Hypertension Social History Smoking and tobacco status: former smoker Alcohol intake: never Household members: spouse Marital status: service: Yes branch: [employer] Current occupational status: employed History of recent travel: No Current gender identity: Male Vitals/I&O/Wt Last Vital Signs Temp 97.7 F 08/09/20 11:00 Pulse 74 08/09/20 12:00 Resp 18 08/09/20 12:00 BP 123/55 08/09/20 12:00 Pulse Ox 97 08/09/20 12:00 08/08/20 08/09/20 08/09/20 22:59 06:59 14:59 Intake Total 556.25 / 2166.834 1260.584 / 2166.834 Output Total 150 / 600 150 / 600 75 / 75 Balance 406.25 / 4755.817 7660.584 / 1566.834 -75 / -75 Weight last 48 hrs Weight 227 lb 4 oz Weight 226 lb 5 oz Weight 220 lb Physical Exam Narrative: EXAM NARRATIVE: HEENT: Normocephalic Eye: Sclera /conjunctiva normal Abdomen: Soft to palpation Neurological: Oriented to place person and time Skin: Intact, no lesions appreciated on gross exam Urinary Catheter Management^: Ansari: Cath Placed During This Visit: yes Reason for Continuing Indwelling Catheter: Accurate Measurement of Urinary Output in Critically Ill Patients Urinary Catheter Date of Insertion: 08/08/20 Urinary Catheter Time of Insertion: 04:35 Data Micro: Micro: Microbiology 08/08/20 08:36 Urine Culture - Pr eliminary Urine Catheterize d A&P Assessment and plan (1) Acute kidney injury superimposed on CKD: 70-year-old male with acute on chronic kidney injury with significant medical comorbidities who now requires dialysis Plan for placement of tunneled hemodialysis catheter under MAC Procedure, risks, benefits and alternatives have been discussed with the patient who wishes to proceed with surgery. Status: Acute Coding Level of Care Code Acute Still Photographer for g Fwd Diagnoses Acute kidney injury superimposed on CKD N17.9; N18.9
--- NOTE | 2020-08-09 14:21 | ANES.PREANE2 ---
Pre-Anesthetic Assessment Pre-Anesthetic Assessment: Height/Weight: Height 1.73 m Weight 103.079 kg Temp Pulse Resp BP Pulse Ox 97.7 F 74 18 123/55 97 08/09/20 11:00 08/09/20 12:00 08/09/20 12:00 08/09/20 12:00 08/09/20 12:00 Preop Diagnosis: ARF Proposed Procedure: Operation Date: 08/09/20 13:55 Proposed Procedures p Dialysis Catheter Insertion(Not Applicable) - Christiano Dao MD Familial anesthetic complications: delayed emergence from spinal surgery 2019 (4 days per patient) Was Beta Norma taken within 24 hours: Yes Was Clonidine taken within 24 hours: N/A Last intake: 08/08/201999 clear liquids- sips with meds. Social: Social History: No alcohol and No tobacco Exam: Pre-Anes Outpt Exam: alert, oriented x 3, clear to auscultation bilaterally and regular rate & rhythm Airway: Submandibular: WNL Cervical ROM: WNL MP: 1 Dentition: Full History/ROS: No significant history except as noted Pulmonary: Pulmonary: COPD, Sleep apnea and SOB Comments: 3LO2 nasal cannula continous. CV/HEM: CV/HEM: Angina (Stable), CAD, CHF, HTN and UT Comments: 2013- UT x2 two cardiac stents minor and major per patient. : : Chronic renal failure Comments: patients states he went into renal failure after back surgery 2019 Hepatic: Hepatic: None reported GI: GI: GERD Metabolic: Metabolic: DM, Morbid obesity and Thyroid Musc/skel: Musc/skel: Lower Back Pain and Weakness (cane, fell a few weeks prior) Comments: rods and screws in back 2019. Neuropsych: Neuropsych: Anxiety, Depression and TIA Anesthetic Plan: ASA status: 3 Anesthesia: Anesthesia Evaluation and MAC Risk of > 500 ml blood loss (7ml/kg in children): No Meds/Allergies Current Medications: Current Medications Generic Name Dose Route Start Last Admin Trade Name Freq PRN Reason Stop Dose Admin Acetaminophen 650 mg 08/08/20 03:57 08/08/20 21:04 Acetaminophen 32 5 Mg Tablet PO 650 mg Q6H PRN Administration MILD PAIN Hydrocodone Bitart /Acetaminophen 1 tab 08/08/20 03:57 08/09/20 10:27 Hydrocodone-Acet aminophen 5-325 Mg Tablet PO 1 tab Q4H PRN Administration MODERATE PAIN Aspirin 81 mg 08/08/20 13:15 08/08/20 13:41 Aspirin 81 Mg Ec Tablet PO 81 mg DAILY SAYRA Administration Atorvastatin Calci um 80 mg 08/08/20 09:00 08/08/20 08:31 Atorvastatin 40 Mg Tablet PO 80 mg DAILY SAYRA Administration Hydralazine HCl 25 mg 08/09/20 09:00 08/09/20 08:18 Hydralazine 50 M g Tablet PO Not Given TID SAYRA Furosemide 100 mg/ Sodium 50 mls @ 0 mls/hr 08/08/20 09:15 08/09/20 13:49 Chloride IV 10 mg/hr .Q0M SAYRA 5 mls/hr Administration Protocol Per Protocol Insulin Aspart 0 unit 08/08/20 08:00 08/09/20 11:30 Insulin Aspart 1 00 Unit/1 Ml SUBCUT Not Given WM&BEDTIME [facility] Protocol Isosorbide Mononit rate 60 mg 08/08/20 06:00 08/09/20 05:55 Isosorbide Albion itrate Er 60 Mg Ta blet PO Not Given QAM [facility] Levothyroxine Sodi um 25 mcg 08/08/20 09:00 08/08/20 08:31 Levothyroxine 25 Mcg Tablet PO 25 mcg DAILY SAYRA Administration Metoprolol Tartrat e 75 mg 08/08/20 09:00 08/08/20 17:05 Metoprolol Tartr ate 50 Mg Tablet PO Not Given BID [facility] Morphine Sulfate 2 mg 08/08/20 03:57 08/09/20 06:17 Morphine 4 Mg/Ml Sdv 1 Ml IVP 2 mg Q4H PRN Administration SEVERE PAIN Pantoprazole Sodiu m 40 mg 08/08/20 13:30 08/09/20 12:41 Pantoprazole 40 Mg Sdv IVP 40 mg Q12H SAYRA Administration Sevelamer Carbonat e 1,600 mg 08/09/20 09:00 08/09/20 08:18 Sevelamer 800 Mg Tablet PO Not Given TID SAYRA Sucralfate 1 gm 08/08/20 17:00 08/09/20 10:24 Sucralfate 1 Gm Tablet PO Not Given AC&BEDTIME SAYRA Terazosin HCl 10 mg 08/08/20 09:00 08/09/20 08:18 Terazosin 5 Mg C apsule PO Not Given BID [facility] Additional Medication Information: Current Medications Acetaminophen (Acetaminophen 325 Mg Tablet) 650 mg PO Q6H PRN PRN Reason: MILD PAIN Last Admin: 08/08/20 21:04 Dose: 650 mg Documented by: Hydrocodone Bitart/Acetaminophen (Hydrocodone-Acetaminophen 5-325 Mg Tablet) 1 tab PO Q4H PRN PRN Reason: MODERATE PAIN Last Admin: 08/09/20 02:48 Dose: 1 tab Documented by: Aspirin (Aspirin 81 Mg Ec Tablet) 81 mg PO DAILY [facility] Last Admin: 08/08/20 13:41 Dose: 81 mg Documented by: Atorvastatin Calcium (Atorvastatin 40 Mg Tablet) 80 mg PO DAILY [facility] Last Admin: 08/08/20 08:31 Dose: 80 mg Documented by: Dextrose (Dextrose 50% Syringe 50 Ml) 25 ml IVP ONCE PRN; Protocol PRN Reason: hypoglycemia protocol Dextrose (Dextrose 50% Syringe 50 Ml) 50 ml IVP PRN PRN; Protocol PRN Reason: hypoglycemia protocol Glucagon (Glucagon 1 Mg/Ml Inj 1 Ml) 1 mg IM ONCE PRN; Protocol PRN Reason: Adult Acute Hypoglycemia Prot. Hydralazine HCl (Hydralazine 50 Mg Tablet) 100 mg PO TID [facility] Last Admin: 08/08/20 20:48 Dose: Not Given Documented by: Dextrose (D5w) 500 mls @ 100 mls/hr IV ONCE PRN; Protocol PRN Reason: Adult Acute Hypoglycemia Prot Furosemide 100 mg/ Sodium (Chloride) 50 mls @ 0 mls/hr IV .Q0M [facility]; Protocol Last Admin: 08/09/20 02:08 Dose: 10 mg/hr, 5 mls/hr Documented by: Insulin Aspart (Insulin Aspart 100 Unit/1 Ml) 0 unit SUBCUT WM&BEDTIME [facility]; Protocol Last Admin: 08/08/20 21:04 Dose: 6 unit Documented by: Isosorbide Mononitrate (Isosorbide Mononitrate Er 60 Mg Tablet) 60 mg PO QAM [facility] Last Admin: 08/09/20 05:55 Dose: Not Given Documented by: Levothyroxine Sodium (Levothyroxine 25 Mcg Tablet) 25 mcg PO DAILY [facility] Last Admin: 08/08/20 08:31 Dose: 25 mcg Documented by: Metolazone (Metolazone 5 Mg Tablet) 5 mg PO BID [facility] Last Admin: 08/08/20 17:43 Dose: 5 mg Documented by: Metoprolol Tartrate (Metoprolol Tartrate 50 Mg Tablet) 75 mg PO BID [facility] Last Admin: 08/08/20 17:05 Dose: Not Given Documented by: Morphine Sulfate (Morphine 4 Mg/Ml Sdv 1 Ml) 2 mg IVP Q4H PRN PRN Reason: SEVERE PAIN Last Admin: 08/09/20 06:17 Dose: 2 mg Documented by: Nitroglycerin (Nitroglycerin 0.4 Mg Sublingual Tablet) 0.4 mg SUBLINGUAL Q5M PRN PRN Reason: Chest Pain Ondansetron HCl (Ondansetron 2 Mg/Ml Sdv 2 Ml) 4 mg IVP Q6H PRN PRN Reason: NAUSEA AND VOMITING Pantoprazole Sodium (Pantoprazole 40 Mg Sdv) 40 mg IVP Q12H [facility] Last Admin: 08/09/20 01:59 Dose: 40 mg Documented by: Sucralfate (Sucralfate 1 Gm Tablet) 1 gm PO AC&BEDTIME [facility] Last Admin: 08/09/20 06:12 Dose: 1 gm Documented by: Terazosin HCl (Terazosin 5 Mg Capsule) 10 mg PO BID [facility] Last Admin: 08/08/20 17:05 Dose: Not Given Documented by: PFSH Anesthesia PFSH: Medical History Acute kidney injury superimposed on CKD Anemia ASHD (arteriosclerotic heart disease) Carotid stenosis, bilateral Chronic back pain Chronic kidney disease (CKD) Congestive 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 CVA (cerebral vascular accident) Diabetes 1.5, managed as type 2 Dyslipidemia Essential hypertension History of 2019 novel coronavirus disease (COVID-19) Hypothyroidism Myocardial infarction KAITLYNN (obstructive sleep apnea) Surgical History Previous back surgery S/P angioplasty with stent S/P cataract extraction Family History Mother CAD (coronary artery disease) Stroke Sister Hypertension Social History Smoking and tobacco status: former smoker Alcohol intake: never Household members: spouse Marital status: service: Yes branch: [employer] Current occupational status: employed History of recent travel: No Current gender identity: Male Data Anesthesia CBC & Chem 7: 08/09/20 03:41 08/09/20 03:41 Other Labs: Laboratory Results - last 48 hr 08/08/20 08/08/20 08/08/20 01:44 01:44 01:44 WBC 15.4 H RBC 2.82 L Hgb 7.7 L Hct 24.8 L MCV 87.9 MCH 27.3 L MCHC 31.0 RDW 17.9 H Plt Count 185 MPV 10.6 H Neut % (Auto) 85.6 Lymph % (Auto) 5.7 Fergus % (Auto) 5.3 Eos % (Auto) 2.7 Baso % (Auto) 0.3 Neut # (Auto) 13.18 H Lymph # (Auto) 0.9 Fergus # (Auto) 0.8 Eos # (Auto) 0.4 Baso # (Auto) 0.0 Nucleated RBC % (auto) 0 Nucleated RBCs # 0.0 ESR PT INR APTT Sodium 135 L Potassium 4.5 Chloride 102 Carbon Dioxide 14 L Anion Gap 23.5 H BUN 142 H* Creatinine 8.1 H* GFR Calculation 6.6 L Glucose 180 H POC Glucose Calculated Osmolality 331 H Uric Acid Calcium 7.9 L Phosphorus Magnesium Iron TIBC % Saturation Unsat Iron Binding Ferritin Total Bilirubin AST ALT Alkaline Phosphatase Troponin T Baseline 252 H* Troponin T 120 Minute Delta Troponin T Troponin T Hi Sens 6Hr Troponin T Hi Sens 6Hr Delta NT-Pro-B Natriuret Pep 4360 H Total Protein Albumin Globulin Triglycerides Cholesterol LDL Cholesterol, Calc HDL Cholesterol LDL/HDL Ratio Cholesterol/HDL Ratio TSH Urine Color Urine Appearance Urine pH Ur Specific Bard Urine Protein Urine Glucose (UA) Urine Ketones Urine Blood Urine Nitrate Urine Bilirubin Urine Urobilinogen Ur Leukocyte Esterase Urine RBC Urine WBC Ur Eosinophil Smear Ur Squamous Epith Cells Amorphous Sediment Urine Bacteria Hyaline Casts Urine Mucus Urine Eosinophils Ur Random Sodium Ur Random Potassium Ur Random Chloride Ur Random Urea Nitrogn Urine Creatinine Hep Bs Antigen Hep Bs Antibody Hepatitis C Antibody SARS-CoV-2 Ag (Rapid) Blood Type Rho(D) Type Antibody Screen Crossmatch 08/08/20 08/08/20 08/08/20 01:44 01:55 02:20 WBC RBC Hgb Hct MCV MCH MCHC RDW Plt Count MPV Neut % (Auto) Lymph % (Auto) Fergus % (Auto) Eos % (Auto) Baso % (Auto) Neut # (Auto) Lymph # (Auto) Fergus # (Auto) Eos # (Auto) Baso # (Auto) Nucleated RBC % (auto) Nucleated RBCs # ESR PT INR APTT 33.3 Sodium Potassium Chloride Carbon Dioxide Anion Gap BUN Creatinine GFR Calculation Glucose POC Glucose Calculated Osmolality Uric Acid Calcium Phosphorus Magnesium Iron 46 L TIBC 162 % Saturation 28.3 Unsat Iron Binding 116 Ferritin Total Bilirubin AST ALT Alkaline Phosphatase Troponin T Baseline Troponin T 120 Minute Delta Troponin T Troponin T Hi Sens 6Hr Troponin T Hi Sens 6Hr Delta NT-Pro-B Natriuret Pep Total Protein Albumin Globulin Triglycerides Cholesterol LDL Cholesterol, Calc HDL Cholesterol LDL/HDL Ratio Cholesterol/HDL Ratio TSH Urine Color Urine Appearance Urine pH Ur Specific Bard Urine Protein Urine Glucose (UA) Urine Ketones Urine Blood Urine Nitrate Urine Bilirubin Urine Urobilinogen Ur Leukocyte Esterase Urine RBC Urine WBC Ur Eosinophil Smear Ur Squamous Epith Cells Amorphous Sediment Urine Bacteria Hyaline Casts Urine Mucus Urine Eosinophils Ur Random Sodium Ur Random Potassium Ur Random Chloride Ur Random Urea Nitrogn Urine Creatinine Hep Bs Antigen Hep Bs Antibody Hepatitis C Antibody SARS-CoV-2 Ag (Rapid) Negative Blood Type Rho(D) Type Antibody Screen Crossmatch 08/08/20 08/08/20 08/08/20 02:20 04:12 07:40 WBC RBC Hgb Hct MCV MCH MCHC RDW Plt Count MPV Neut % (Auto) Lymph % (Auto) Fergus % (Auto) Eos % (Auto) Baso % (Auto) Neut # (Auto) Lymph # (Auto) Fergus # (Auto) Eos # (Auto) Baso # (Auto) Nucleated RBC % (auto) Nucleated RBCs # ESR PT INR APTT Sodium Potassium Chloride Carbon Dioxide Anion Gap BUN Creatinine GFR Calculation Glucose POC Glucose 228 H Calculated Osmolality Uric Acid Calcium Phosphorus Magnesium Iron TIBC % Saturation Unsat Iron Binding Ferritin Total Bilirubin AST ALT Alkaline Phosphatase Troponin T Baseline Troponin T 120 Minute 243.6 H Delta Troponin T -8.4 L Troponin T Hi Sens 6Hr Troponin T Hi Sens 6Hr Delta NT-Pro-B Natriuret Pep Total Protein Albumin Globulin Triglycerides Cholesterol LDL Cholesterol, Calc HDL Cholesterol LDL/HDL Ratio Cholesterol/HDL Ratio TSH Urine Color Urine Appearance Urine pH Ur Specific Bard Urine Protein Urine Glucose (UA) Urine Ketones Urine Blood Urine Nitrate Urine Bilirubin Urine Urobilinogen Ur Leukocyte Esterase Urine RBC Urine WBC Ur Eosinophil Smear Ur Squamous Epith Cells Amorphous Sediment Urine Bacteria Hyaline Casts Urine Mucus Urine Eosinophils Ur Random Sodium Ur Random Potassium Ur Random Chloride Ur Random Urea Nitrogn Urine Creatinine Hep Bs Antigen Hep Bs Antibody Hepatitis C Antibody SARS-CoV-2 Ag (Rapid) Blood Type A Positive Rho(D) Type Positive / 4+ Antibody Screen Negative Crossmatch See Detail 08/08/20 08/08/20 08/08/20 07:43 07:43 07:43 WBC 13.5 H RBC 2.90 L Hgb 8.0 L Hct 25.7 L MCV 88.6 MCH 27.6 L MCHC 31.1 RDW 17.8 H Plt Count 155 MPV 9.8 Neut % (Auto) 84.8 Lymph % (Auto) 5.0 Fergus % (Auto) 5.9 Eos % (Auto) 3.0 Baso % (Auto) 0.4 Neut # (Auto) 11.46 H Lymph # (Auto) 0.7 L Fergus # (Auto) 0.8 Eos # (Auto) 0.4 Baso # (Auto) 0.1 Nucleated RBC % (auto) 0 Nucleated RBCs # 0.0 ESR PT INR APTT Sodium 133 L Potassium 4.4 Chloride 100 Carbon Dioxide 13 L Anion Gap 24.4 H BUN 137 H* Creatinine 7.9 H* GFR Calculation 6.8 L Glucose 197 H POC Glucose Calculated Osmolality 326 H Uric Acid Calcium 8.2 L Phosphorus Magnesium 2.5 H Iron TIBC % Saturation Unsat Iron Binding Ferritin Total Bilirubin AST ALT Alkaline Phosphatase Troponin T Baseline Troponin T 120 Minute Delta Troponin T Troponin T Hi Sens 6Hr 200.3 H Troponin T Hi Sens 6Hr Delta -51.7 L NT-Pro-B Natriuret Pep Total Protein Albumin Globulin Triglycerides Cholesterol LDL Cholesterol, Calc HDL Cholesterol LDL/HDL Ratio Cholesterol/HDL Ratio TSH Urine Color Urine Appearance Urine pH Ur Specific Bard Urine Protein Urine Glucose (UA) Urine Ketones Urine Blood Urine Nitrate Urine Bilirubin Urine Urobilinogen Ur Leukocyte Esterase Urine RBC Urine WBC Ur Eosinophil Smear Ur Squamous Epith Cells Amorphous Sediment Urine Bacteria Hyaline Casts Urine Mucus Urine Eosinophils Ur Random Sodium Ur Random Potassium Ur Random Chloride Ur Random Urea Nitrogn Urine Creatinine Hep Bs Antigen Hep Bs Antibody Hepatitis C Antibody SARS-CoV-2 Ag (Rapid) Blood Type Rho(D) Type Antibody Screen Crossmatch 08/08/20 08/08/20 08/08/20 08:36 08:36 11:12 WBC RBC Hgb Hct MCV MCH MCHC RDW Plt Count MPV Neut % (Auto) Lymph % (Auto) Fergus % (Auto) Eos % (Auto) Baso % (Auto) Neut # (Auto) Lymph # (Auto) Fergus # (Auto) Eos # (Auto) Baso # (Auto) Nucleated RBC % (auto) Nucleated RBCs # ESR PT INR APTT Sodium Potassium Chloride Carbon Dioxide Anion Gap BUN Creatinine GFR Calculation Glucose POC Glucose 178 H Calculated Osmolality Uric Acid Calcium Phosphorus Magnesium Iron TIBC % Saturation Unsat Iron Binding Ferritin Total Bilirubin AST ALT Alkaline Phosphatase Troponin T Baseline Troponin T 120 Minute Delta Troponin T Troponin T Hi Sens 6Hr Troponin T Hi Sens 6Hr Delta NT-Pro-B Natriuret Pep Total Protein Albumin Globulin Triglycerides Cholesterol LDL Cholesterol, Calc HDL Cholesterol LDL/HDL Ratio Cholesterol/HDL Ratio TSH Urine Color Urine Appearance Urine pH Ur Specific Bard Urine Protein Urine Glucose (UA) Urine Ketones Urine Blood Urine Nitrate Urine Bilirubin Urine Urobilinogen Ur Leukocyte Esterase Urine RBC Urine WBC Ur Eosinophil Smear 1 H Ur Squamous Epith Cells Amorphous Sediment Urine Bacteria Hyaline Casts Urine Mucus Urine Eosinophils Eosinophils seen H Ur Random Sodium 13 Ur Random Potassium 38 Ur Random Chloride < 10 Ur Random Urea Nitrogn 477 Urine Creatinine 116 Hep Bs Antigen Hep Bs Antibody Hepatitis C Antibody SARS-CoV-2 Ag (Rapid) Blood Type Rho(D) Type Antibody Screen Crossmatch 08/08/20 08/08/20 08/09/20 16:41 20:59 03:41 WBC RBC Hgb Hct MCV MCH MCHC RDW Plt Count MPV Neut % (Auto) Lymph % (Auto) Fergus % (Auto) Eos % (Auto) Baso % (Auto) Neut # (Auto) Lymph # (Auto) Fergus # (Auto) Eos # (Auto) Baso # (Auto) Nucleated RBC % (auto) Nucleated RBCs # ESR PT INR APTT Sodium Potassium Chloride Carbon Dioxide Anion Gap BUN Creatinine GFR Calculation Glucose POC Glucose 119 H 207 H Calculated Osmolality Uric Acid Calcium Phosphorus Magnesium Iron TIBC % Saturation Unsat Iron Binding Ferritin Total Bilirubin AST ALT Alkaline Phosphatase Troponin T Baseline Troponin T 120 Minute Delta Troponin T Troponin T Hi Sens 6Hr Troponin T Hi Sens 6Hr Delta NT-Pro-B Natriuret Pep Total Protein Albumin Globulin Triglycerides Cholesterol LDL Cholesterol, Calc HDL Cholesterol LDL/HDL Ratio Cholesterol/HDL Ratio TSH 2.01 Urine Color Urine Appearance Urine pH Ur Specific Bard Urine Protein Urine Glucose (UA) Urine Ketones Urine Blood Urine Nitrate Urine Bilirubin Urine Urobilinogen Ur Leukocyte Esterase Urine RBC Urine WBC Ur Eosinophil Smear Ur Squamous Epith Cells Amorphous Sediment Urine Bacteria Hyaline Casts Urine Mucus Urine Eosinophils Ur Random Sodium Ur Random Potassium Ur Random Chloride Ur Random Urea Nitrogn Urine Creatinine Hep Bs Antigen Hep Bs Antibody Hepatitis C Antibody SARS-CoV-2 Ag (Rapid) Blood Type Rho(D) Type Antibody Screen Crossmatch 08/09/20 08/09/20 08/09/20 03:41 03:41 03:41 WBC 12.9 H RBC 2.91 L Hgb 7.8 L Hct 25.7 L MCV 88.3 MCH 26.8 L MCHC 30.4 RDW 18.0 H Plt Count 165 MPV 11.0 H Neut % (Auto) 83.7 Lymph % (Auto) 4.8 Fergus % (Auto) 6.5 Eos % (Auto) 3.7 Baso % (Auto) 0.4 Neut # (Auto) 10.76 H Lymph # (Auto) 0.6 L [place] # (Auto) 0.8 Eos # (Auto) 0.5 Baso # (Auto) 0.1 Nucleated RBC % (auto) 0 Nucleated RBCs # 0.0 ESR PT INR APTT Sodium 136 Potassium 4.7 Chloride 103 Carbon Dioxide 14 L Anion Gap 23.7 H BUN 138 H* Creatinine 8.9 H* GFR Calculation 5.9 L Glucose 125 H POC Glucose Calculated Osmolality 328 H Uric Acid Calcium 7.9 L Phosphorus 10.0 H* Magnesium 2.4 H Iron TIBC % Saturation Unsat Iron Binding Ferritin Total Bilirubin 0.3 AST 5 ALT < 5 Alkaline Phosphatase 127 Troponin T Baseline Troponin T 120 Minute Delta Troponin T Troponin T Hi Sens 6Hr Troponin T Hi Sens 6Hr Delta NT-Pro-B Natriuret Pep 7538 H Total Protein 6.2 L Albumin 3.2 L Globulin 3.0 Triglycerides 88 Cholesterol 84 LDL Cholesterol, Calc 38 L HDL Cholesterol 28 L LDL/HDL Ratio 1.36 Cholesterol/HDL Ratio 3.00 TSH Urine Color Urine Appearance Urine pH Ur Specific Bard Urine Protein Urine Glucose (UA) Urine Ketones Urine Blood Urine Nitrate Urine Bilirubin Urine Urobilinogen Ur Leukocyte Esterase Urine RBC Urine WBC Ur Eosinophil Smear Ur Squamous Epith Cells Amorphous Sediment Urine Bacteria Hyaline Casts Urine Mucus Urine Eosinophils Ur Random Sodium Ur Random Potassium Ur Random Chloride Ur Random Urea Nitrogn Urine Creatinine Hep Bs Antigen Hep Bs Antibody Hepatitis C Antibody SARS-CoV-2 Ag (Rapid) Blood Type Rho(D) Type Antibody Screen Crossmatch 08/09/20 08/09/20 08/09/20 03:41 03:41 03:41 WBC RBC Hgb Hct MCV MCH MCHC RDW Plt Count MPV Neut % (Auto) Lymph % (Auto) [place] % (Auto) Eos % (Auto) Baso % (Auto) Neut # (Auto) Lymph # (Auto) [place] # (Auto) Eos # (Auto) Baso # (Auto) Nucleated RBC % (auto) Nucleated RBCs # ESR PT 17.20 H INR 1.36 H APTT Sodium Potassium Chloride Carbon Dioxide Anion Gap BUN Creatinine GFR Calculation Glucose POC Glucose Calculated Osmolality Uric Acid Calcium Phosphorus Magnesium Iron TIBC % Saturation Unsat Iron Binding Ferritin 1540 H Total Bilirubin AST ALT Alkaline Phosphatase Troponin T Baseline Troponin T 120 Minute Delta Troponin T Troponin T Hi Sens 6Hr Troponin T Hi Sens 6Hr Delta NT-Pro-B Natriuret Pep Total Protein Albumin Globulin Triglycerides Cholesterol LDL Cholesterol, Calc HDL Cholesterol LDL/HDL Ratio Cholesterol/HDL Ratio TSH Urine Color Urine Appearance Urine pH Ur Specific Bard Urine Protein Urine Glucose (UA) Urine Ketones Urine Blood Urine Nitrate Urine Bilirubin Urine Urobilinogen Ur Leukocyte Esterase Urine RBC Urine WBC Ur Eosinophil Smear Ur Squamous Epith Cells Amorphous Sediment Urine Bacteria Hyaline Casts Urine Mucus Urine Eosinophils Ur Random Sodium Ur Random Potassium Ur Random Chloride Ur Random Urea Nitrogn Urine Creatinine Hep Bs Antigen Non-reactive Hep Bs Antibody 3.5 L Hepatitis C Antibody Non-reactive SARS-CoV-2 Ag (Rapid) Blood Type Rho(D) Type Antibody Screen Crossmatch 08/09/20 08/09/20 08/09/20 03:41 03:41 07:46 WBC RBC Hgb Hct MCV MCH MCHC RDW Plt Count MPV Neut % (Auto) Lymph % (Auto) [place] % (Auto) Eos % (Auto) Baso % (Auto) Neut # (Auto) Lymph # (Auto) [place] # (Auto) Eos # (Auto) Baso # (Auto) Nucleated RBC % (auto) Nucleated RBCs # ESR 80 H PT INR APTT Sodium Potassium Chloride Carbon Dioxide Anion Gap BUN Creatinine GFR Calculation Glucose POC Glucose 155 H Calculated Osmolality Uric Acid 4.5 Calcium Phosphorus Magnesium Iron TIBC % Saturation Unsat Iron Binding Ferritin Total Bilirubin AST ALT Alkaline Phosphatase Troponin T Baseline Troponin T 120 Minute Delta Troponin T Troponin T Hi Sens 6Hr Troponin T Hi Sens 6Hr Delta NT-Pro-B Natriuret Pep Total Protein Albumin Globulin Triglycerides Cholesterol LDL Cholesterol, Calc HDL Cholesterol LDL/HDL Ratio Cholesterol/HDL Ratio TSH Urine Color Urine Appearance Urine pH Ur Specific Bard Urine Protein Urine Glucose (UA) Urine Ketones Urine Blood Urine Nitrate Urine Bilirubin Urine Urobilinogen Ur Leukocyte Esterase Urine RBC Urine WBC Ur Eosinophil Smear Ur Squamous Epith Cells Amorphous Sediment Urine Bacteria Hyaline Casts Urine Mucus Urine Eosinophils Ur Random Sodium Ur Random Potassium Ur Random Chloride Ur Random Urea Nitrogn Urine Creatinine Hep Bs Antigen Hep Bs Antibody Hepatitis C Antibody SARS-CoV-2 Ag (Rapid) Blood Type Rho(D) Type Antibody Screen Crossmatch 08/09/20 08/09/20 08/09/20 08:00 08:00 10:55 WBC RBC Hgb Hct MCV MCH MCHC RDW Plt Count MPV Neut % (Auto) Lymph % (Auto) [place] % (Auto) Eos % (Auto) Baso % (Auto) Neut # (Auto) Lymph # (Auto) [place]ergus # (Auto) Eos # (Auto) Baso # (Auto) Nucleated RBC % (auto) Nucleated RBCs # ESR PT INR APTT Sodium Potassium Chloride Carbon Dioxide Anion Gap BUN Creatinine GFR Calculation Glucose POC Glucose 167 H Calculated Osmolality Uric Acid Calcium Phosphorus Magnesium Iron TIBC % Saturation Unsat Iron Binding Ferritin Total Bilirubin AST ALT Alkaline Phosphatase Troponin T Baseline Troponin T 120 Minute Delta Troponin T Troponin T Hi Sens 6Hr Troponin T Hi Sens 6Hr Delta NT-Pro-B Natriuret Pep Total Protein Albumin Globulin Triglycerides Cholesterol LDL Cholesterol, Calc HDL Cholesterol LDL/HDL Ratio Cholesterol/HDL Ratio TSH Urine Color Yellow Urine Appearance Clear Urine pH 5 Ur Specific Bard 1.015 Urine Protein Neg Urine Glucose (UA) Norm Urine Ketones Negative Urine Blood 2+ H Urine Nitrate Negative Urine Bilirubin Neg Urine Urobilinogen Norm Ur Leukocyte Esterase 2+ H Urine RBC 15-25 H Urine WBC 40-55 H Ur Eosinophil Smear Ur Squamous Epith Cells 0-4 H Amorphous Sediment Not Reportable Urine Bacteria Trace Hyaline Casts 0-4 H Urine Mucus Trace Urine Eosinophils Ur Random Sodium 25 Ur Random Potassium Ur Random Chloride Ur Random Urea Nitrogn Urine Creatinine Hep Bs Antigen Hep Bs Antibody Hepatitis C Antibody SARS-CoV-2 Ag (Rapid) Blood Type Rho(D) Type Antibody Screen Crossmatch Micro: Microbiology 08/08/20 08:36 Urine Culture - Preliminary Urine Catheterized Cardiac Studies: No Data to Display
[2020-08-09] MEDS: metoprolol tartrate 50 mg Tablet 75 MG PO ×2 (14:25→19:15)
[2020-08-09] MEDS: levothyroxine 25 mcg Tablet PO (14:26)
--- NOTE | 2020-08-09 14:47 | SC_ITS ---
WS: [id number] C-arm fluoroscopy for dialysis catheter placement, 08/09/2020 Clinical Data: [facility] hemodialysis catheter Comparison: Portable chest, 08/08/2020. Findings: The large bore dialysis catheter has been inserted into the right internal jugular vein and ends in t he superior vena cava. SC/C-arm FL for CVA [id number] Impression: Satisfactory insertion of dialysis catheter.
[2020-08-09] MEDS: lidocaine 1% INJ 20 mL SUBCUT (15:02)
[2020-08-09] MEDS: heparin, porcine 1,000 unit/mL INJ 10 mL 10000 UNIT IRRIGATION (15:04)
--- NOTE | 2020-08-09 15:24 | PM.OP ---
Operative Report Date of procedure: August 09, 2020 Pre-op Diagnosis: ARF Post-op diagnosis: same Procedure Done: 1. Placement of tunneled 16 Romanian 23 cm long AshSplit hemodialysis catheter 2. Fluoroscopic guidance and interpretation for placement of catheter 3. Ultrasound guidance to access the right internal jugular vein Pathology: none sent Surgeon: Christiano Dao Anesthesia: MAC Condition: stable Disposition: PACU Procedure: The patient was taken to the operating room and placed under MAC after IV antibiotic had been administered. The chest and neck were prepped and draped in a sterile manner bilaterally. An ultrasound of the right internal jugular vein revealed patent flow, no thrombus identified. Using introducer needle the internal jugular vein on the right side was accessed and guidewire passed into the right atrium under fluoroscopy. Under fluoroscopy the location for the dialysis catheter was marked. Using 11 blade a skin incision was extended at the vein access site as well as the previously marked location on the right chest wall. The dialysis catheter was attached to the tunneler and passed subcutaneously, exiting at the venous access site. Serial dilators were passed over the guidewire under fluoroscopy. Finally the dilator peel-away sheath was passed over the guidewire and the inner dilator and guidewire was removed and the dialysis catheter was introduced into the right internal jugular vein as the peel-away sheath was removed. The tip of the catheter was noted to be in the right atrium. Both ports of the catheter stanislaw blood and flushed easily. The catheter was sutured to the skin using 2-0 Prolene and the venous access site was closed with 4-0 Monocryl and Dermabond. A total of 5 mL of 1:10,000 heparin was injected into the 2 ports under dialysis catheter. Fluoroscopic guidance and interpretation for passage of guidewire and dilator and placement of catheter in the right atrium.
--- NOTE | 2020-08-09 16:17 | ANE.PACU2 ---
Inpatient post-anesthesia follow up: Airway intact: Yes Vital signs: Temperature 97.7 F Pulse Rate [Monito r] 70 Pulse Rate 72 Respiratory Rate 15 Blood Pressure [Ri ght Arm] 123/50 Blood Pressure 91/41 Pulse Oximetry 97 Oxygen Delivery Me thod [ Nasal Cannula Current Rate & Del hair] Oxygen Delivery Me thod Nasal Cannula Oxygen Flow Rate [ Current Rate 2 & Delivery] Oxygen Flow Rate 2 Fraction of Inspir ed Oxygen Hydration adequate: Yes Nausea and vomiting: No Pain level: 1 Mental status: Baseline
[2020-08-09 16:38] LABS: Osmolality Urine 342 mOsm/kg (50-1200)
[2020-08-09 17:11] LABS: Glucose Point of Care 135 mg/dL (70-110)
--- NOTE | 2020-08-09 18:43 | PM.PN ---
Subjective Subjective: Interval history: Denies significant chest pain. Patient most likely will be going for dialysis. Medications: Reviewed: Yes Medication Review Details: Current Medications Acetaminophen (Acetaminophen 325 Mg Tablet) 650 mg PO Q6H PRN PRN Reason: MILD PAIN Last Admin: 08/08/20 21:04 Dose: 650 mg Documented by: Hydrocodone Bitart/Acetaminophen (Hydrocodone-Acetaminophen 5-325 Mg Tablet) 1 tab PO Q4H PRN PRN Reason: MODERATE PAIN Last Admin: 08/09/20 02:48 Dose: 1 tab Documented by: Aspirin (Aspirin 81 Mg Ec Tablet) 81 mg PO DAILY [facility] Last Admin: 08/08/20 13:41 Dose: 81 mg Documented by: Atorvastatin Calcium (Atorvastatin 40 Mg Tablet) 80 mg PO DAILY [facility] Last Admin: 08/08/20 08:31 Dose: 80 mg Documented by: Dextrose (Dextrose 50% Syringe 50 Ml) 25 ml IVP ONCE PRN; Protocol PRN Reason: hypoglycemia protocol Dextrose (Dextrose 50% Syringe 50 Ml) 50 ml IVP PRN PRN; Protocol PRN Reason: hypoglycemia protocol Glucagon (Glucagon 1 Mg/Ml Inj 1 Ml) 1 mg IM ONCE PRN; Protocol PRN Reason: Adult Acute Hypoglycemia Prot. Hydralazine HCl (Hydralazine 50 Mg Tablet) 100 mg PO TID [facility] Last Admin: 08/08/20 20:48 Dose: Not Given Documented by: Dextrose (D5w) 500 mls @ 100 mls/hr IV ONCE PRN; Protocol PRN Reason: Adult Acute Hypoglycemia Prot Furosemide 100 mg/ Sodium (Chloride) 50 mls @ 0 mls/hr IV .Q0M [facility]; Protocol Last Admin: 08/09/20 02:08 Dose: 10 mg/hr, 5 mls/hr Documented by: Insulin Aspart (Insulin Aspart 100 Unit/1 Ml) 0 unit SUBCUT WM&BEDTIME [facility]; Protocol Last Admin: 08/08/20 21:04 Dose: 6 unit Documented by: Isosorbide Mononitrate (Isosorbide Mononitrate Er 60 Mg Tablet) 60 mg PO QAM [facility] Last Admin: 08/09/20 05:55 Dose: Not Given Documented by: Levothyroxine Sodium (Levothyroxine 25 Mcg Tablet) 25 mcg PO DAILY [facility] Last Admin: 08/08/20 08:31 Dose: 25 mcg Documented by: Metolazone (Metolazone 5 Mg Tablet) 5 mg PO BID [facility] Last Admin: 08/08/20 17:43 Dose: 5 mg Documented by: Metoprolol Tartrate (Metoprolol Tartrate 50 Mg Tablet) 75 mg PO BID [facility] Last Admin: 08/08/20 17:05 Dose: Not Given Documented by: Morphine Sulfate (Morphine 4 Mg/Ml Sdv 1 Ml) 2 mg IVP Q4H PRN PRN Reason: SEVERE PAIN Last Admin: 08/09/20 06:17 Dose: 2 mg Documented by: Nitroglycerin (Nitroglycerin 0.4 Mg Sublingual Tablet) 0.4 mg SUBLINGUAL Q5M PRN PRN Reason: Chest Pain Ondansetron HCl (Ondansetron 2 Mg/Ml Sdv 2 Ml) 4 mg IVP Q6H PRN PRN Reason: NAUSEA AND VOMITING Pantoprazole Sodium (Pantoprazole 40 Mg Sdv) 40 mg IVP Q12H [facility] Last Admin: 08/09/20 01:59 Dose: 40 mg Documented by: Sucralfate (Sucralfate 1 Gm Tablet) 1 gm PO AC&BEDTIME [facility] Last Admin: 08/09/20 06:12 Dose: 1 gm Documented by: Terazosin HCl (Terazosin 5 Mg Capsule) 10 mg PO BID [facility] Last Admin: 08/08/20 17:05 Dose: Not Given Documented by: Vitals/I&O/Wt Last Vital Signs Temp 97.4 F L 08/09/20 14:45 Pulse 68 08/09/20 18:15 Resp 17 08/09/20 18:15 BP 142/85 08/09/20 18:15 Pulse Ox 99 08/09/20 18:15 08/09/20 08/09/20 08/09/20 06:59 14:59 22:59 Intake Total 1260.584 / 2166.834 50 / 50 Output Total 150 / 600 75 / 75 Balance 1110.584 / 1566.834 -25 / -25 Weight last 48 hrs Weight 227 lb 4 oz Weight 226 lb 5 oz Weight 220 lb Physical Exam Narrative: EXAM NARRATIVE: GENERAL: Patient is alert, awake and oriented x3. NECK: No jugular vein distension. HEENT: No cyanosis. No icterus. No pallor. HEART: Regular S1 and S2. No murmur, rub or gallop. LUNGS: Basal crackles bilaterally. ABDOMEN: Soft, nontender and nondistended. Positive bowel sounds. No guarding, rebound or tenderness. CENTRAL NERVOUS SYSTEM: Grossly nonfocal. EXTREMITIES: Lower extremities without edema bilaterally. Urinary Catheter Management^: Ansari: Cath Placed During This Visit: yes Reason for Continuing Indwelling Catheter: Accurate Measurement of Urinary Output in Critically Ill Patients Urinary Catheter Date of Insertion: 08/08/20 Urinary Catheter Time of Insertion: 04:35 Data : 08/09/20 03:41 08/09/20 03:41 Micro: Microbiology 08/08/20 08:36 Urine Culture - Preliminary Urine Catheterized A&P Assessment and plan (1) Non-ST elevated myocardial infarction (non-STEMI): This is a very complicated patient with prior history of coronary artery disease presented with anemia history of recurrent nosebleed worsening of renal failure congestive heart failure. He is high risk for bleeding and primary PCI due to underlying comorbidities. I will ask for echocardiogram to assess LV function. We will for now optimize his medications. He is being diuresed with the help of nephrology. He may will be requiring dialysis at some point once started dialysis and stabilized anemia sunshine may consider left heart cath. For now continue aspirin statin beta-artem and P2 Y 12 inhibitor. Add isosorbide mononitrate. Stable. Continue current regimen. Awaiting euvolemic state most likely through dialysis. Status: Acute (2) Congestive 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: Well compensated. Status: Acute (3) Essential hypertension: Well-controlled. Continue to monitor Status: Chronic (4) Acute kidney injury superimposed on CKD: As per nephrology. Status: Acute (5) Anemia: Continue to monitor Status: Acute Attestations Medical Necessity Statement*: Require continuation hospitalization for above defined care. Coding Level of Care Code Established Pt Acute Multi Skilled Operator for Lse Fwd Patient Type Established History Detailed Exam Detailed Medical Decision Making Moderate Complexity Diagnoses Non-ST elevated myocardial infarction (non-STEMI) I21.4 Congestive 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 I11.0 Essential hypertension I10 Acute kidney injury superimposed on CKD N17.9; N18.9 Anemia D64.9
[2020-08-09] MEDS: atorvastatin 40 mg Tablet 80 MG PO (19:15)
[2020-08-09] MEDS: aspirin 81 mg EC Tablet PO (19:15)
[2020-08-09] MEDS: b-complex-vitamin c Tablet 1 EACH PO (19:15)
--- NOTE | 2020-08-09 19:26 | PC.NURSE ---
[address] Hopkins. Discussed plan for patient to go for HD placement today. Reported UOP. 1425 SHIP ENGINEER at bedside, clarified medication to be given before surgery. Ordered to give metoporolol and levothyroxine. 1435 Patient to OR with SHIP ENGINEER and CROSS TIE TRAM LOADER. 1546 Patient returned to room from OR. HD initiated, medications held until HD complete.
[2020-08-09 20:21] LABS: Glucose Point of Care 194 mg/dL (70-110)
[2020-08-09] MEDS: hyDRALAzine 50 mg Tablet 25 MG PO (20:21)
[2020-08-09] MEDS: sevelamer 800 mg Tablet 1600 MG PO (20:21)
[2020-08-09] MEDS: acetaminophen 325 mg Tablet 650 MG PO (23:47)
[2020-08-10] VITALS (36 sets, daily range): BP systolic 103–147; BP diastolic 46–112; PULSE 59–70; RESP 13–22; TEMP 36.6–36.8; O2SAT 92–99
[2020-08-10] MEDS: FUROsemide 100 MG in sodium chloride 0.9% 40 ML IV (01:43)
[2020-08-10] MEDS: pantoprazole 40 mg SDV IVP ×2 (01:44→13:02)
[2020-08-10 05:36] LABS: INR 1.44 (0.8-1.2)
[2020-08-10 05:38] LABS: Basophils # 0.1 10^3/uL (0.0-0.1); Basophils % 0.3 %; Eosinophils # 0.6 10^3/uL (0.0-0.8); Eosinophils % 3.3 %; Hematocrit 24.5 % (42.0-52.0); Hemoglobin 7.7 g/dL (11.7-16.6); Lymphocytes # 0.5 10^3/uL (0.8-4.8); Mean Corpuscular HGB Conc 31.4 g/dL (30.0-36.0); Mean Corpuscular Hemoglobin 27.4 pg (28.0-34.0); Mean Corpuscular Volume 87.2 fL (80-94); Mean Platelet Volume 11.1 fL (7.4-10.4); Monocytes # 1.2 10^3/uL (0.2-0.9); Monocytes % 6.8 %; Neutrophils # 14.63 10^3/uL (1.8-7.7); Neutrophils % 86.1 %; Nucleated Red Blood Cells % 0 %; Platelet Count 160 10^3/cmm (130-400); Red Blood Count 2.81 10^6/uL (4.1-5.3); Red Cell Distribution Width 17.7 % (12.1-15.1)
[2020-08-10 05:48] LABS: Alanine Aminotransferase < 5 U/L (0-41); Albumin Level 3.2 g/dL (3.5-5.2); Alkaline Phosphatase 136 IU/L (40-130); Anion Gap 16.9 (5-19); Aspartate Amino Transferase 6 U/L (0-40); Calcium 7.7 mg/dL (8.5-10.5); Carbon Dioxide 22 mmol/L (22-29); Chloride 100 mmol/L (98-107); Globulin 2.9 g/dL (1.3-4.6); Glomerular Filtration Rate 9.2 mL/min (90-130); Glucose 112 mg/dL (65-115); Magnesium 2.1 mg/dL (1.7-2.3); Osmolality Calculated 306 mOsm/kg (285-295); Potassium 3.9 mmol/L (3.5-5.1); Sodium 135 mmol/L (136-145); Total Bilirubin 0.3 mg/dL (0.15-1.2); Total Protein 6.1 g/dL (6.6-8.7)
[2020-08-10 05:53] LABS: Blood Urea Nitrogen 83 mg/dL (8-23)
[2020-08-10 05:54] LABS: Calcium 7.3 mg/dL (8.5-10.5); Parathyroid Hormone 185.8 pg/mL (15-65)
[2020-08-10] MEDS: sucralfate 1 gm Tablet PO ×4 (05:58→21:46)
[2020-08-10] MEDS: isosorbide mononitrate ER 60 mg Tablet PO (05:58)
[2020-08-10 06:03] LABS: 25 Hydroxy Vitamin D 12 ng/mL (30-100); Iron 22 ug/dL (59-158); NT Pro B Type Natriuretic Pept 10221 pg/mL (0-125); Percent Saturation 15.1 % (20-50); Total Iron Binding Capacity 145 mcg/dl; Unsaturated Iron Binding 123 ug/dL (112-347)
[2020-08-10] MEDS: acetaminophen 325 mg Tablet 650 MG PO (06:28)
[2020-08-10] MEDS: sevelamer 800 mg Tablet 1600 MG PO ×3 (08:00→21:41)
[2020-08-10] MEDS: hyDRALAzine 50 mg Tablet 25 MG PO (08:01)
[2020-08-10] MEDS: metoprolol tartrate 50 mg Tablet 75 MG PO ×2 (08:01→17:00)
[2020-08-10] MEDS: levothyroxine 25 mcg Tablet PO (08:01)
[2020-08-10] MEDS: atorvastatin 40 mg Tablet 80 MG PO (08:01)
[2020-08-10] MEDS: aspirin 81 mg EC Tablet PO (08:01)
[2020-08-10] MEDS: terazosin 5 mg Capsule 10 MG PO ×2 (08:01→17:00)
--- NOTE | 2020-08-10 08:03 | XR_ITS ---
WS: [id number] Portable AP upright chest, 08/10/2020 Clinical Data: sob Comparison: Portable chest, 08/08/2020. Findings: There is a right dialysis catheter in good position. The heart remains enlarged. No nodules , masses or effusions are seen. The pulmonary vascularity is not remarkable. No pneumonia or pneumoth orax is present. Monitor leads are on the chest wall. There are lower thoracic bilateral pedicle scre ws with connecting rods. There is sclerosis of the right scapula in the glenoid fossa, probably Paget 's disease. XR/XR chest 1V portable 17300 Impression: 1. Insertion of a right dialysis catheter. 2. No change in cardiomegaly.
[2020-08-10] MEDS: b-complex-vitamin c Tablet 1 EACH PO (08:04)
--- NOTE | 2020-08-10 08:37 | P.PN_ITS ---
Subjective Subjective: Interval history: c/o pain by rt neck- dialysis catheter. dec sob, feels better. no nausea or CP Medications: Reviewed: Yes Medication Review Details: Current Medications Acetaminophen (Acetaminophen 325 Mg Tablet) 650 mg PO Q6H PRN PRN Reason: MILD PAIN Last Admin: 08/10/20 06:28 Dose: 650 mg Documented by: Hydrocodone Bitart/Acetaminophen (Hydrocodone-Acetaminophen 5-325 Mg Tablet) 1 tab PO Q4H PRN PRN Reason: MODERATE PAIN Last Admin: 08/09/20 19:37 Dose: 1 tab Documented by: Aspirin (Aspirin 81 Mg Ec Tablet) 81 mg PO DAILY [facility] Last Admin: 08/10/20 08:01 Dose: 81 mg Documented by: Atorvastatin Calcium (Atorvastatin 40 Mg Tablet) 80 mg PO DAILY [facility] Last Admin: 08/10/20 08:01 Dose: 80 mg Documented by: Dextrose (Dextrose 50% Syringe 50 Ml) 25 ml IVP ONCE PRN; Protocol PRN Reason: hypoglycemia protocol Dextrose (Dextrose 50% Syringe 50 Ml) 50 ml IVP PRN PRN; Protocol PRN Reason: hypoglycemia protocol Glucagon (Glucagon 1 Mg/Ml Inj 1 Ml) 1 mg IM ONCE PRN; Protocol PRN Reason: Adult Acute Hypoglycemia Prot. Hydralazine HCl (Hydralazine 50 Mg Tablet) 25 mg PO TID [facility] Last Admin: 08/10/20 08:01 Dose: 25 mg Documented by: Dextrose (D5w) 500 mls @ 100 mls/hr IV ONCE PRN; Protocol PRN Reason: Adult Acute Hypoglycemia Prot Furosemide 100 mg/ Sodium (Chloride) 50 mls @ 0 mls/hr IV .Q0M [facility]; Protocol Last Admin: 08/10/20 01:43 Dose: 10 mg/hr, 5 mls/hr Documented by: Insulin Aspart (Insulin Aspart 100 Unit/1 Ml) 0 unit SUBCUT WM&BEDTIME [facility]; Protocol Last Admin: 08/10/20 07:59 Dose: 4 unit Documented by: Isosorbide Mononitrate (Isosorbide Mononitrate Er 60 Mg Tablet) 60 mg PO QAM [facility] Last Admin: 08/10/20 05:58 Dose: 60 mg Documented by: Levothyroxine Sodium (Levothyroxine 25 Mcg Tablet) 25 mcg PO DAILY [facility] Last Admin: 08/10/20 08:01 Dose: 25 mcg Documented by: Metoprolol Tartrate (Metoprolol Tartrate 50 Mg Tablet) 75 mg PO BID [facility] Last Admin: 08/10/20 08:01 Dose: 75 mg Documented by: Morphine Sulfate (Morphine 4 Mg/Ml Sdv 1 Ml) 2 mg IVP Q4H PRN PRN Reason: SEVERE PAIN Last Admin: 08/09/20 06:17 Dose: 2 mg Documented by: Multivitamins (G-Vsmuiwe-Qgyhrrq C Tablet) 1 each PO DAILY [facility] Last Admin: 08/10/20 08:04 Dose: 1 each Documented by: Nitroglycerin (Nitroglycerin 0.4 Mg Sublingual Tablet) 0.4 mg SUBLINGUAL Q5M PRN PRN Reason: Chest Pain Ondansetron HCl (Ondansetron 2 Mg/Ml Sdv 2 Ml) 4 mg IVP Q6H PRN PRN Reason: NAUSEA AND VOMITING Pantoprazole Sodium (Pantoprazole 40 Mg Sdv) 40 mg IVP Q12H [facility] Last Admin: 08/10/20 01:44 Dose: 40 mg Documented by: Sevelamer Carbonate (Sevelamer 800 Mg Tablet) 1,600 mg PO TID [facility] Last Admin: 08/10/20 08:00 Dose: 1,600 mg Documented by: Sucralfate (Sucralfate 1 Gm Tablet) 1 gm PO AC&BEDTIME [facility] Last Admin: 08/10/20 05:58 Dose: 1 gm Documented by: Terazosin HCl (Terazosin 5 Mg Capsule) 10 mg PO BID [facility] Last Admin: 08/10/20 08:01 Dose: 10 mg Documented by: Vitals/I&O/Wt Last Vital Signs Temp 98.2 F 08/10/20 07:00 Pulse 63 08/10/20 08:00 Resp 18 08/10/20 08:00 BP 124/55 08/10/20 08:00 Pulse Ox 97 08/10/20 08:00 08/09/20 08/10/20 08/10/20 22:59 06:59 14:59 Intake Total 500 / 550 450 / 1000 Output Total 150 / 225 450 / 675 Balance 350 / 325 0 / 325 Weight last 48 hrs Weight 103.059 kg Weight 103.079 kg Physical Exam Narrative: EXAM NARRATIVE: comfortable, more awake, using nc 02 nc/at, eomi, anicteric neck supple lungs- improved air movement b/l heart reg, no rub abd soft, nt, nd, +BS ext 1+ edema neuro- a,a, o x 3 psych- mood appropriate skin- no rash Urinary Catheter Management^: Ricci: Cath Placed During This Visit: yes Reason for Continuing Indwelling Catheter: Accurate Measurement of Urinary Output in Critically Ill Patients Urinary Catheter Date of Insertion: 08/08/20 Urinary Catheter Time of Insertion: 04:35 Data : 08/10/20 04:37 08/10/20 04:37 Micro: Microbiology 08/08/20 08:36 Urine Culture - Preliminary Urine Catheterized A&P Additional A&P Information 1. 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 IVAN -low ur na likely from Cardiac disease -will hold metolazone -urine eos +, however significant rbc's and wbc's no ur protien on ua -low ur na - presumed form CHF/ low CO -feels better after HD -will repeat HD in am for 3 hrs, 2k bath, remove 1.5 liters -d/c ricci change lasix to 40 iv bid 3.Non STEMI- cath per cardiology 4. BP now stable 5. anemia eval- high ferritin in may 2020 -iron sta 15%, await repeat ferritin 6. Bone- mineral- metabolism of CKD -phos 10, improved to 7 w/ HD and renvela 7. CAD per cardiology 8. hyponatremia improved w/ lasix and HD 9. KAITLYNN- bipap Patient seen and examined via telemedicine, with the assistance of the bedside RN > 25 min spent in evaluation and mgmt of patient Attestations Medical Necessity Statement*: IVAN, CKD, cardiac disease Time Spent in Patient Care: 16 - 35 minutes Coding Level of Care Code Acute Pick Pulling Machine Operator for Les Fuentes
--- NOTE | 2020-08-10 09:03 | PC.CHAP ---
Pastoral Care Encounter/Spiritual Assessment Type of Contact [] Declined church secretary visit [] Patient/Family/Request visit [] Outpatient visit [] Follow-up visit [] Physician referral [] Code/Alert [x] Routine visit [] Staff referral [] Actively dying [] Patient sleeping [] Family support [] [] Out of room [] Palliative care [] [x] Receiving care in room [] Pre-surgical visit [] Trauma [] Long length of stay [x] ICU visit [] Other: Relational/Emotional Strength [] Patient feels connected with others/family/visitors/staff [] Distress [] Loneliness/isolation [] Abandonment Spirituality of Patient [] Person of Zulma [] Attends Amish of their Zulma [] Believes in Prayer [] Reads Bible or Zoroastrian materials [] There are Spiritual issues to be addressed Papier Mache Molder Interventions [x] Prayer [] Active listening [] Non-anxious presence [] Spiritual/emotional support [] Crisis/trauma care [] Spiritual counseling [] Bereavement support [] Provided bereavement packet [] Provided Bible/devotional materials [] Provided toy/stuffed animal, coloring book to patient or family member [] Provided Communion [] Anointing/Minerva [] Salvation [x] Completed spiritual assessment [] Other: Impact on Illness or Injury [] Angry [] Fearful [] Anxious [] Often cries [] Exhaustion [] Unable to work [] Unable to attend restorationist [] Unable to walk/stand [] Unable to read [] Unable to drive [] Unable to eat/drink [] Unable to sleep [] Unable to be with family [] Patient intubated [] Other: Summary Time spent with patient
[2020-08-10] MEDS: lisinopril 5 mg Tablet PO (09:11)
[2020-08-10 09:21] LABS: Procalcitonin 0.54 ng/mL (0-0.5)
[2020-08-10 09:34] LABS: C Reactive Protein 140.9 mg/L (0.0-4.9)
[2020-08-10 09:50] LABS: Complement C3 120 mg/dL (90-180)
[2020-08-10 11:06] LABS: Glucose Point of Care 123 mg/dL (70-110)
--- NOTE | 2020-08-10 12:01 | PC.SOCIAL ---
IMM Update Pg. 2 of IMM updated and reviewed with patient and who verbalized understanding. Copy provided.
--- NOTE | 2020-08-10 12:29 | PM.PN ---
Subjective Subjective: Interval history: Patient was examined this morning, he tells me he is feeling a lot better, no fevers, no chills, no nausea, no vomiting, abdominal pain, no cough, he is tolerating dialysis, no recurrent episodes of chest pain, he does continue to complain of tenderness in bilateral shins Medications: Medication Review Details: Current Medications Acetaminophen (Acetaminophen 325 Mg Tablet) 650 mg PO Q6H PRN PRN Reason: MILD PAIN Last Admin: 08/10/20 06:28 Dose: 650 mg Documented by: Hydrocodone Bitart/Acetaminophen (Hydrocodone-Acetaminophen 5-325 Mg Tablet) 1 tab PO Q4H PRN PRN Reason: MODERATE PAIN Last Admin: 08/09/20 19:37 Dose: 1 tab Documented by: Aspirin (Aspirin 81 Mg Ec Tablet) 81 mg PO DAILY [facility] Last Admin: 08/10/20 08:01 Dose: 81 mg Documented by: Atorvastatin Calcium (Atorvastatin 40 Mg Tablet) 80 mg PO DAILY [facility] Last Admin: 08/10/20 08:01 Dose: 80 mg Documented by: Dextrose (Dextrose 50% Syringe 50 Ml) 25 ml IVP ONCE PRN; Protocol PRN Reason: hypoglycemia protocol Dextrose (Dextrose 50% Syringe 50 Ml) 50 ml IVP PRN PRN; Protocol PRN Reason: hypoglycemia protocol Glucagon (Glucagon 1 Mg/Ml Inj 1 Ml) 1 mg IM ONCE PRN; Protocol PRN Reason: Adult Acute Hypoglycemia Prot. Hydralazine HCl (Hydralazine 50 Mg Tablet) 25 mg PO TID [facility] Last Admin: 08/10/20 08:01 Dose: 25 mg Documented by: Dextrose (D5w) 500 mls @ 100 mls/hr IV ONCE PRN; Protocol PRN Reason: Adult Acute Hypoglycemia Prot Furosemide 100 mg/ Sodium (Chloride) 50 mls @ 0 mls/hr IV .Q0M [facility]; Protocol Last Admin: 08/10/20 01:43 Dose: 10 mg/hr, 5 mls/hr Documented by: Insulin Aspart (Insulin Aspart 100 Unit/1 Ml) 0 unit SUBCUT WM&BEDTIME [facility]; Protocol Last Admin: 08/10/20 07:59 Dose: 4 unit Documented by: Isosorbide Mononitrate (Isosorbide Mononitrate Er 60 Mg Tablet) 60 mg PO QAM [facility] Last Admin: 08/10/20 05:58 Dose: 60 mg Documented by: Levothyroxine Sodium (Levothyroxine 25 Mcg Tablet) 25 mcg PO DAILY [facility] Last Admin: 08/10/20 08:01 Dose: 25 mcg Documented by: Metoprolol Tartrate (Metoprolol Tartrate 50 Mg Tablet) 75 mg PO BID [facility] Last Admin: 08/10/20 08:01 Dose: 75 mg Documented by: Morphine Sulfate (Morphine 4 Mg/Ml Sdv 1 Ml) 2 mg IVP Q4H PRN PRN Reason: SEVERE PAIN Last Admin: 08/09/20 06:17 Dose: 2 mg Documented by: Multivitamins (O-Wzwzjeq-Ypaygfp C Tablet) 1 each PO DAILY [facility] Last Admin: 08/10/20 08:04 Dose: 1 each Documented by: Nitroglycerin (Nitroglycerin 0.4 Mg Sublingual Tablet) 0.4 mg SUBLINGUAL Q5M PRN PRN Reason: Chest Pain Ondansetron HCl (Ondansetron 2 Mg/Ml Sdv 2 Ml) 4 mg IVP Q6H PRN PRN Reason: NAUSEA AND VOMITING Pantoprazole Sodium (Pantoprazole 40 Mg Sdv) 40 mg IVP Q12H [facility] Last Admin: 08/10/20 01:44 Dose: 40 mg Documented by: Sevelamer Carbonate (Sevelamer 800 Mg Tablet) 1,600 mg PO TID [facility] Last Admin: 08/10/20 08:00 Dose: 1,600 mg Documented by: Sucralfate (Sucralfate 1 Gm Tablet) 1 gm PO AC&BEDTIME [facility] Last Admin: 08/10/20 05:58 Dose: 1 gm Documented by: Terazosin HCl (Terazosin 5 Mg Capsule) 10 mg PO BID [facility] Last Admin: 08/10/20 08:01 Dose: 10 mg Documented by: Vitals/I&O/Wt Last Vital Signs Temp 97.8 F 08/10/20 12:00 Pulse 67 08/10/20 12:00 Resp 22 H 08/10/20 12:00 BP 121/55 08/10/20 12:00 Pulse Ox 97 08/10/20 12:00 08/09/20 08/10/20 08/10/20 22:59 06:59 14:59 Intake Total 500 / 550 450 / 1000 157.083 / 157.083 Output Total 150 / 225 450 / 675 100 / 100 Balance 350 / 325 0 / 325 57.083 / 57.083 Weight last 48 hrs Weight 103.059 kg Weight 103.079 kg Physical Exam Const: COMMON NORMALS: no acute distress and patient oriented x3 HENMT: COMMON NORMALS: normocephalic HEAD & SCALP: normocephalic Neck/C-Spine: COMMON NORMALS: no JVD Chest: OTHER: Right dialysis catheter in place Resp: COMMON NORMALS: normal respiratory effort, No retractions, No use of accessory muscles and clear to auscultation bilaterally AUSCULTATION: clear to auscultation bilaterally Cardio: COMMON NORMALS: no JVD, regular rate, regular rhythm, S1 normal heart sound present and S2 normal heart sound present RATE: regular rate RHYTHM: regular rhythm HEART SOUNDS: S1 normal heart sound present and S2 normal heart sound present GI: COMMON NORMALS: Normal to inspection, nondistended, normoactive bowel sounds present, Soft to palpation, non-tender, No hepatosplenomegaly present, no masses and no bruits PALPATION: Yes Soft to palpation and Yes No hepatosplenomegaly present Extremity: COMMON NORMALS: capillary refill normal, no clubbing, cyanosis or edema, no calf tenderness and no pedal edema Neuro: COMMON NORMALS: patient oriented x3 Psych: COMMON NORMALS: mental status grossly normal Urinary Catheter Management^: Ansari: Cath Placed During This Visit: yes, but has since been removed by the nurse Reason for Continuing Indwelling Catheter: Accurate Measurement of Urinary Output in Critically Ill Patients Urinary Catheter Date of Insertion: 08/08/20 Urinary Catheter Time of Insertion: 04:35 Date Urinary Catheter Removed: 08/10/20 Time Urinary Catheter Discontinued: 09:56 Data : 08/10/20 04:37 08/10/20 04:37 Micro: Microbiology 08/08/20 08:36 Urine Culture - Final Urine Catheterized 08/10/20 08:38 Blood Culture - Preliminary Blood SPECIMEN COLLECTED 08/10/20 08:38 Blood Culture - Preliminary Blood SPECIMEN COLLECTED A&P Assessment and plan (1) Acute kidney injury superimposed on CKD: -700 cc urine output in the last 12 hours -Creatinine 6.1, baseline creatinine 4 -Renal ultrasound negative for hydronephrosis -Likely acute renal failure related to cardiorenal syndrome, renal hypoperfusion -UA does show eosinophils, eosinophil stain positive, ESR 80, but could be from Lasix, no new medications, rheumatologic titers pending, does take allopurinol which has been held -Status post dialysis catheter placement, dialysis Plan: -Consult nephrology -Lasix 40 IV twice daily -Currently on hemodialysis -We will need to arrange outpatient dialysis Plan for today, dialysis, monitor respiratory status, cardiology on consult, PT OT, monitor for fevers, moved to CSU Status: Acute (2) Non-ST elevated myocardial infarction (non-STEMI): -Has complaints of intermittent chest pain -EKG shows sinus rhythm with first-degree AV block -Baseline troponin 252, 6-hour troponin 200.3, negative delta 51.7, BNP 4360 -Has a history of CAD -Etiology likely related to at anasarca, fluid overload, CHF -However cannot rule out underlying cardiac etiology Plan: -Start aspirin 81 mg, atorvastatin 80 mg, metoprolol, Imdur -Hold off on Plavix, heparin given concerns for anemia -Cardiac echocardiogram ordered, pending -Monitor for chest pain, monitor telemetry -Cardiology on consult Status: Acute (3) Acute on chronic anemia: -Etiology likely multifactorial related to CKD, possible slow GI bleed, recurrent nosebleeds -Hemoglobin 7.7 Plan: -Status post 1 unit PRBC, monitor hemoglobin, monitor hemodynamics, monitor for bloody or black stools -Hemoccult stool pending -Protonix 40 twice daily, Carafate -Monitor for nosebleeds, currently none Status: Acute (4) Chronic kidney disease (CKD) stage G5/A1, glomerular filtration rate (GFR) less than or equal to 15 mL/min/1.73 square meter and albuminuria creatinine ratio less than 30 mg/g: Status: Acute (5) Hypothyroidism: Status: Acute (6) Diabetes 1.5, managed as type 2: Status: Chronic (7) Essential hypertension: Status: Chronic (8) KAITLYNN (obstructive sleep apnea): Status: Acute (9) Dyslipidemia: Status: Chronic (10) Congestive 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: -Chronically on 2 to 3 L nasal cannula Status: Acute Additional A&P Information 70 year old male with past medical history of coronary artery disease, stents, last one in 2012, hypertension, chronic kidney disease stage IV-V, diabetes, diabetic neuropathy, recurrent nosebleeds, dyslipidemia, hypothyroidism, GERD, CVA, severe peripheral vascular disease who is presenting with chest pain. Patient has non-ST elevation MO, acute on chronic kidney failure, worsened anemia probably due to persistent nosebleeds. Bilateral gaming pain, calf pain, ultrasound negative for DVT Leukocytosis 17,000, afebrile, chest x-ray no pneumonia, UA no UTI, CRP 141, pro-Tejas 0.5, no abdominal complaints, no diarrhea, will continue to monitor, monitor dialysis catheter site CODE STATUS. The patient wants to be full code. The plan of care was discussed with the patient. He verbalized understanding and agreement Attestations Medical Necessity Statement*: Patient requires hospitalization, for acute renal failure, NSTEMI,, critical care time spent over 40 minutes Coding Level of Care Code Acute Carpet Floor Layer Apprentice for g Fwd Diagnoses Acute kidney injury superimposed on CKD N17.9; N18.9 Non-ST elevated myocardial infarction (non-STEMI) I21.4 Acute on chronic anemia D64.9 Chronic kidney disease (CKD) stage G5/A1, glomerular filtration rate (GFR) less than or equal to 15 mL/min/1.73 square meter and albuminuria creatinine ratio less than 30 mg/g N18.5 Hypothyroidism E03.9 Diabetes 1.5, managed as type 2 E13.9 Essential hypertension I10 KAITLYNN (obstructive sleep apnea) G47.33 Dyslipidemia E78.5 Congestive 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 I11.0
[2020-08-10 16:51] LABS: Glucose Point of Care 148 mg/dL (70-110)
--- NOTE | 2020-08-10 17:17 | PC.NURSE ---
Report called to CSU NurseTed. Pt to be transferred to CSU bed 101.
--- NOTE | 2020-08-10 17:44 | PC.NURSE ---
Patient Transferred Pt transferred via wheelchair to CSU accompanied by this nurse and . Belongings transferred with patient and placed on nightstand at bedside. Pt transferred from wheelchair to bed with one assist, Ted RN at bedside. Pt tolerated transfer well and A&O at time of transfer.
--- NOTE | 2020-08-10 18:33 | PC.NURSE ---
Pt lying in bed resting and watching tv. Pt resp even and non-labored no distress noted. Pt had no c/o pain or discomfort at the present time. Call light in reach. Will continue to monitor.
--- NOTE | 2020-08-10 20:13 | PM.PN ---
Subjective Subjective: Interval history: Denies any chest pain. Remained stable he has a dialysis Medications: Reviewed: Yes Medication Review Details: Current Medications Acetaminophen (Acetaminophen 325 Mg Tablet) 650 mg PO Q6H PRN PRN Reason: MILD PAIN Last Admin: 08/10/20 06:28 Dose: 650 mg Documented by: Hydrocodone Bitart/Acetaminophen (Hydrocodone-Acetaminophen 5-325 Mg Tablet) 1 tab PO Q4H PRN PRN Reason: MODERATE PAIN Last Admin: 08/09/20 19:37 Dose: 1 tab Documented by: Aspirin (Aspirin 81 Mg Ec Tablet) 81 mg PO DAILY [facility] Last Admin: 08/10/20 08:01 Dose: 81 mg Documented by: Atorvastatin Calcium (Atorvastatin 40 Mg Tablet) 80 mg PO DAILY [facility] Last Admin: 08/10/20 08:01 Dose: 80 mg Documented by: Dextrose (Dextrose 50% Syringe 50 Ml) 25 ml IVP ONCE PRN; Protocol PRN Reason: hypoglycemia protocol Dextrose (Dextrose 50% Syringe 50 Ml) 50 ml IVP PRN PRN; Protocol PRN Reason: hypoglycemia protocol Glucagon (Glucagon 1 Mg/Ml Inj 1 Ml) 1 mg IM ONCE PRN; Protocol PRN Reason: Adult Acute Hypoglycemia Prot. Hydralazine HCl (Hydralazine 50 Mg Tablet) 25 mg PO TID [facility] Last Admin: 08/10/20 08:01 Dose: 25 mg Documented by: Dextrose (D5w) 500 mls @ 100 mls/hr IV ONCE PRN; Protocol PRN Reason: Adult Acute Hypoglycemia Prot Furosemide 100 mg/ Sodium (Chloride) 50 mls @ 0 mls/hr IV .Q0M [facility]; Protocol Last Admin: 08/10/20 01:43 Dose: 10 mg/hr, 5 mls/hr Documented by: Insulin Aspart (Insulin Aspart 100 Unit/1 Ml) 0 unit SUBCUT WM&BEDTIME [facility]; Protocol Last Admin: 08/10/20 07:59 Dose: 4 unit Documented by: Isosorbide Mononitrate (Isosorbide Mononitrate Er 60 Mg Tablet) 60 mg PO QAM [facility] Last Admin: 08/10/20 05:58 Dose: 60 mg Documented by: Levothyroxine Sodium (Levothyroxine 25 Mcg Tablet) 25 mcg PO DAILY [facility] Last Admin: 08/10/20 08:01 Dose: 25 mcg Documented by: Metoprolol Tartrate (Metoprolol Tartrate 50 Mg Tablet) 75 mg PO BID [facility] Last Admin: 08/10/20 08:01 Dose: 75 mg Documented by: Morphine Sulfate (Morphine 4 Mg/Ml Sdv 1 Ml) 2 mg IVP Q4H PRN PRN Reason: SEVERE PAIN Last Admin: 08/09/20 06:17 Dose: 2 mg Documented by: Multivitamins (T-Tncsoaj-Nypipcu C Tablet) 1 each PO DAILY [facility] Last Admin: 08/10/20 08:04 Dose: 1 each Documented by: Nitroglycerin (Nitroglycerin 0.4 Mg Sublingual Tablet) 0.4 mg SUBLINGUAL Q5M PRN PRN Reason: Chest Pain Ondansetron HCl (Ondansetron 2 Mg/Ml Sdv 2 Ml) 4 mg IVP Q6H PRN PRN Reason: NAUSEA AND VOMITING Pantoprazole Sodium (Pantoprazole 40 Mg Sdv) 40 mg IVP Q12H [facility] Last Admin: 08/10/20 01:44 Dose: 40 mg Documented by: Sevelamer Carbonate (Sevelamer 800 Mg Tablet) 1,600 mg PO TID [facility] Last Admin: 08/10/20 08:00 Dose: 1,600 mg Documented by: Sucralfate (Sucralfate 1 Gm Tablet) 1 gm PO AC&BEDTIME [facility] Last Admin: 08/10/20 05:58 Dose: 1 gm Documented by: Terazosin HCl (Terazosin 5 Mg Capsule) 10 mg PO BID [facility] Last Admin: 08/10/20 08:01 Dose: 10 mg Documented by: Vitals/I&O/Wt Last Vital Signs Temp 98.3 F 08/10/20 18:55 Pulse 62 08/10/20 18:55 Resp 15 08/10/20 18:55 BP 131/56 08/10/20 18:55 Pulse Ox 96 08/10/20 18:55 08/10/20 08/10/20 08/10/20 06:59 14:59 22:59 Intake Total 450 / 1000 277.083 / 277.083 120 / 397.083 Output Total 450 / 675 100 / 100 Balance 0 / 325 177.083 / 177.083 120 / 297.083 Weight last 48 hrs Weight 227 lb 3.299 oz Weight 227 lb 4 oz Physical Exam Narrative: EXAM NARRATIVE: GENERAL: Patient is alert, awake and oriented x3. NECK: No jugular vein distension. HEENT: No cyanosis. No icterus. No pallor. HEART: Regular S1 and S2. No murmur, rub or gallop. LUNGS: Basal crackles bilaterally. ABDOMEN: Soft, nontender and nondistended. Positive bowel sounds. No guarding, rebound or tenderness. CENTRAL NERVOUS SYSTEM: Grossly nonfocal. EXTREMITIES: Lower extremities without edema bilaterally. Urinary Catheter Management^: Ansari: Cath Placed During This Visit: yes, but has since been removed by the nurse Reason for Continuing Indwelling Catheter: Accurate Measurement of Urinary Output in Critically Ill Patients Urinary Catheter Date of Insertion: 08/08/20 Urinary Catheter Time of Insertion: 04:35 Date Urinary Catheter Removed: 08/10/20 Time Urinary Catheter Discontinued: 09:56 Data : 08/10/20 04:37 08/10/20 04:37 Micro: Microbiology 08/09/20 08:00 Urine Culture - Preliminary Urine,Clean Catch Strep agalactiae - (group b) 08/08/20 08:36 Urine Culture - Final Urine Catheterized 08/10/20 08:38 Blood Culture - Preliminary Blood SPECIMEN COLLECTED 08/10/20 08:38 Blood Culture - Preliminary Blood SPECIMEN COLLECTED A&P Assessment and plan (1) Non-ST elevated myocardial infarction (non-STEMI): This is a very complicated patient with prior history of coronary artery disease presented with anemia history of recurrent nosebleed worsening of renal failure congestive heart failure. He is high risk for bleeding and primary PCI due to underlying comorbidities. I will ask for echocardiogram to assess LV function. We will for now optimize his medications. He is being diuresed with the help of nephrology. He may will be requiring dialysis at some point once started dialysis and stabilized anemia sunshine may consider left heart cath. For now continue aspirin statin beta-artem and P2 Y 12 inhibitor. Add isosorbide mononitrate. Remained stable doing fine from a cardiovascular perspective denies any chest pain continue to manage medically. No intention of taking the patient to the Shop Superintendent Status: Acute (2) Congestive 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: Well compensated. Status: Acute (3) Essential hypertension: Well-controlled. Continue to monitor Status: Chronic (4) Acute kidney injury superimposed on CKD: As per nephrology. Status: Acute (5) Anemia: Continue to monitor Status: Acute Attestations Medical Necessity Statement*: Patient require continuation hospitalization for above defined care Coding Level of Care Code Established Pt Acute Press Manager for Chg Fwd Patient Type Established History Detailed Exam Detailed Medical Decision Making Moderate Complexity Diagnoses Non-ST elevated myocardial infarction (non-STEMI) I21.4 Congestive 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 I11.0 Essential hypertension I10 Acute kidney injury superimposed on CKD N17.9; N18.9 Anemia D64.9
[2020-08-10 20:35] LABS: Glucose Point of Care 159 mg/dL (70-110)
[2020-08-11] VITALS (16 sets, daily range): BP systolic 110–171; BP diastolic 46–89; PULSE 64–73; RESP 13–19; TEMP 36.7–37; O2SAT 88–98
[2020-08-11] MEDS: pantoprazole 40 mg SDV IVP (01:50)
[2020-08-11 04:52] LABS: Basophils # 0.1 10^3/uL (0.0-0.1); Basophils % 0.3 %; Eosinophils # 0.7 10^3/uL (0.0-0.8); Eosinophils % 4.1 %; Hematocrit 25.2 % (42.0-52.0); Hemoglobin 7.7 g/dL (11.7-16.6); Lymphocytes # 0.6 10^3/uL (0.8-4.8); Lymphocytes % 3.4 %; Mean Corpuscular HGB Conc 30.6 g/dL (30.0-36.0); Mean Corpuscular Hemoglobin 27.4 pg (28.0-34.0); Mean Corpuscular Volume 89.7 fL (80-94); Monocytes # 1.2 10^3/uL (0.2-0.9); Monocytes % 6.4 %; Neutrophils # 15.22 10^3/uL (1.8-7.7); Neutrophils % 85.2 %; Nucleated Red Blood Cells % 0 %; Platelet Count 157 10^3/cmm (130-400); Red Blood Count 2.81 10^6/uL (4.1-5.3); Red Cell Distribution Width 18.1 % (12.1-15.1); White Blood Count 17.9 10^3/uL (4.0-10.0)
[2020-08-11 05:03] LABS: INR 1.42 (0.8-1.2)
[2020-08-11 05:20] LABS: Alanine Aminotransferase < 5 U/L (0-41); Alkaline Phosphatase 140 IU/L (40-130); Anion Gap 19.6 (5-19); Aspartate Amino Transferase 6 U/L (0-40); Calcium 7.8 mg/dL (8.5-10.5); Carbon Dioxide 21 mmol/L (22-29); Chloride 100 mmol/L (98-107); Globulin 2.8 g/dL (1.3-4.6); Glomerular Filtration Rate 7.6 mL/min (90-130); Glucose 133 mg/dL (65-115); Magnesium 2.2 mg/dL (1.7-2.3); Osmolality Calculated 316 mOsm/kg (285-295); Phosphorus 6.5 mg/dL (2.5-4.5); Potassium 3.6 mmol/L (3.5-5.1); Sodium 137 mmol/L (136-145); Total Bilirubin 0.2 mg/dL (0.15-1.2); Total Protein 5.8 g/dL (6.6-8.7)
[2020-08-11 05:22] LABS: Blood Urea Nitrogen 96 mg/dL (8-23)
[2020-08-11 05:59] LABS: NT Pro B Type Natriuretic Pept 10230 pg/mL (0-125)
[2020-08-11] MEDS: isosorbide mononitrate ER 60 mg Tablet PO (06:26)
[2020-08-11] MEDS: sucralfate 1 gm Tablet PO ×3 (06:26→20:48)
[2020-08-11 06:49] LABS: Glucose Point of Care 142 mg/dL (70-110)
--- NOTE | 2020-08-11 08:48 | CT_ITS ---
WS: [id number] CT ABDOMEN PELVIS TECHNIQUE: Noncontrast CT of the abdomen and pelvis with coronal and sagittal reformatted images. CLINICAL INFORMATION: nausea, vommting COMPARISON: 5 ,018 [address] DLP: 1945.[address] scans at [facility] use at least one of these dose optimization techniques: automat ed exposure control; mA and/or kV adjustment per patient size (includes targeted exams where dose is matched to clinical indication); or iterative reconstruction. FINDINGS: Noncontrast liver is normal. Cholelithiasis. Gallbladder is contracted with wall thickening. Suggesti on of slight induration in the gallbladder fossa. Cardiomegaly. Tiny bilateral pleural effusions. Sub segmental atelectasis in the lung bases. Normal noncontrast spleen. Normal GE junction. Adrenal gland s are normal. Bilateral renal cortical atrophy. No hydronephrosis. Right lower pole renal cyst. Increased attenuati on and smaller cortical lesions may represent hemorrhagic cysts but indeterminant and too small to de finitively characterize. Largest measures 13 mm along the lower pole. No obstructing renal or uretera l calculi. Fatty atrophy of the pancreas. Normal caliber abdominal aorta. Aortic calcification. Fat-containing u mbilical hernia. Sigmoid diverticulosis. No evidence of acute diverticulitis. No high-grade small or large bowel obstruction. No abdominal or pelvic lymphadenopathy. No inguinal lymphadenopathy. Prior postoperative changes pedi mick screw fixation with interconnecting rods T10-L4 IMPRESSION: 1. Bilateral renal cortical atrophy. No hydronephrosis in either kidney. 2. Tiny bilateral pleural effusions with compressive atelectasis in the lung bases. 3. Cholelithiasis. Gallbladder is contracted with wall thickening and suggestion of slight induratio n in the gallbladder fossa. This can be further evaluated with ultrasound. Recommend correlation with gallbladder function studies. 4. Diverticulosis. No evidence of acute radiculitis. 5. Chronic L2 compression fracture with patella screw fixation T10-L4.
[2020-08-11] MEDS: lisinopril 5 mg Tablet PO (08:57)
[2020-08-11] MEDS: b-complex-vitamin c Tablet 1 EACH PO (08:57)
[2020-08-11] MEDS: metoprolol tartrate 50 mg Tablet 75 MG PO ×2 (08:58→17:20)
[2020-08-11] MEDS: sevelamer 800 mg Tablet 1600 MG PO ×3 (08:59→20:48)
[2020-08-11] MEDS: levothyroxine 25 mcg Tablet PO (08:59)
[2020-08-11] MEDS: atorvastatin 40 mg Tablet 80 MG PO (09:00)
[2020-08-11] MEDS: terazosin 5 mg Capsule 10 MG PO ×2 (09:00→17:20)
[2020-08-11] MEDS: aspirin 81 mg EC Tablet PO (09:00)
--- NOTE | 2020-08-11 09:41 | PC.SOCIAL ---
IMM Update Pg. 2 of IMM updated and reviewed with patient and who verbalized understanding. Copy provided.
[2020-08-11 10:08] LABS: COMPLEMENT COMPONENT C3C 115 mg/dL (82-185); COMPLEMENT COMPONENT C4C 33 mg/dL (15-53)
--- NOTE | 2020-08-11 10:26 | PM.PN ---
Subjective Subjective: Interval history: He feels better today. Improvement in his exertional dyspnea, he is comfortable at rest. He still has significant lower extremity edema which is only slightly improved. His Ansari catheter is now removed, he is passing urine without obstruction. No uremic symptoms. Dialysis went well yesterday and he is currently pending dialysis today. Medications: Reviewed: Yes Medication Review Details: Current Medications Acetaminophen (Acetaminophen 325 Mg Tablet) 650 mg PO Q6H PRN PRN Reason: MILD PAIN Last Admin: 08/10/20 06:28 Dose: 650 mg Documented by: Hydrocodone Bitart/Acetaminophen (Hydrocodone-Acetaminophen 5-325 Mg Tablet) 1 tab PO Q4H PRN PRN Reason: MODERATE PAIN Last Admin: 08/09/20 19:37 Dose: 1 tab Documented by: Aspirin (Aspirin 81 Mg Ec Tablet) 81 mg PO DAILY [facility] Last Admin: 08/10/20 08:01 Dose: 81 mg Documented by: Atorvastatin Calcium (Atorvastatin 40 Mg Tablet) 80 mg PO DAILY [facility] Last Admin: 08/10/20 08:01 Dose: 80 mg Documented by: Dextrose (Dextrose 50% Syringe 50 Ml) 25 ml IVP ONCE PRN; Protocol PRN Reason: hypoglycemia protocol Dextrose (Dextrose 50% Syringe 50 Ml) 50 ml IVP PRN PRN; Protocol PRN Reason: hypoglycemia protocol Glucagon (Glucagon 1 Mg/Ml Inj 1 Ml) 1 mg IM ONCE PRN; Protocol PRN Reason: Adult Acute Hypoglycemia Prot. Hydralazine HCl (Hydralazine 50 Mg Tablet) 25 mg PO TID [facility] Last Admin: 08/10/20 08:01 Dose: 25 mg Documented by: Dextrose (D5w) 500 mls @ 100 mls/hr IV ONCE PRN; Protocol PRN Reason: Adult Acute Hypoglycemia Prot Furosemide 100 mg/ Sodium (Chloride) 50 mls @ 0 mls/hr IV .Q0M [facility]; Protocol Last Admin: 08/10/20 01:43 Dose: 10 mg/hr, 5 mls/hr Documented by: Insulin Aspart (Insulin Aspart 100 Unit/1 Ml) 0 unit SUBCUT WM&BEDTIME [facility]; Protocol Last Admin: 08/10/20 07:59 Dose: 4 unit Documented by: Isosorbide Mononitrate (Isosorbide Mononitrate Er 60 Mg Tablet) 60 mg PO QAM [facility] Last Admin: 08/10/20 05:58 Dose: 60 mg Documented by: Levothyroxine Sodium (Levothyroxine 25 Mcg Tablet) 25 mcg PO DAILY [facility] Last Admin: 08/10/20 08:01 Dose: 25 mcg Documented by: Metoprolol Tartrate (Metoprolol Tartrate 50 Mg Tablet) 75 mg PO BID [facility] Last Admin: 08/10/20 08:01 Dose: 75 mg Documented by: Morphine Sulfate (Morphine 4 Mg/Ml Sdv 1 Ml) 2 mg IVP Q4H PRN PRN Reason: SEVERE PAIN Last Admin: 08/09/20 06:17 Dose: 2 mg Documented by: Multivitamins (M-Hkvclre-Tlapdil C Tablet) 1 each PO DAILY [facility] Last Admin: 08/10/20 08:04 Dose: 1 each Documented by: Nitroglycerin (Nitroglycerin 0.4 Mg Sublingual Tablet) 0.4 mg SUBLINGUAL Q5M PRN PRN Reason: Chest Pain Ondansetron HCl (Ondansetron 2 Mg/Ml Sdv 2 Ml) 4 mg IVP Q6H PRN PRN Reason: NAUSEA AND VOMITING Pantoprazole Sodium (Pantoprazole 40 Mg Sdv) 40 mg IVP Q12H [facility] Last Admin: 08/10/20 01:44 Dose: 40 mg Documented by: Sevelamer Carbonate (Sevelamer 800 Mg Tablet) 1,600 mg PO TID [facility] Last Admin: 08/10/20 08:00 Dose: 1,600 mg Documented by: Sucralfate (Sucralfate 1 Gm Tablet) 1 gm PO AC&BEDTIME [facility] Last Admin: 08/10/20 05:58 Dose: 1 gm Documented by: Terazosin HCl (Terazosin 5 Mg Capsule) 10 mg PO BID [facility] Last Admin: 08/10/20 08:01 Dose: 10 mg Documented by: Vitals/I&O/Wt Last Vital Signs Temp 98.0 F 08/11/20 07:21 Pulse 68 08/11/20 07:21 Resp 16 08/11/20 07:21 BP 158/72 08/11/20 07:21 Pulse Ox 97 08/11/20 07:21 08/10/20 08/11/20 08/11/20 22:59 06:59 14:59 Intake Total 290 / 567.083 Output Total 250 / 350 200 / 550 Balance 40 / 217.083 -200 / 17.083 Weight last 48 hrs Weight 101.287 kg Weight 103.059 kg Physical Exam Narrative: EXAM NARRATIVE: Constitutional: Awake, comfortable HEENT: Wet mucosa, no jvp, non icteric Lungs: Bilaterally clear without discernible wheeze, rales in all lung zones CVS: S1 S2, no murmurs Abdo: Soft, BS ok Ext 4: 2-3+ edema, peripheral perfusion with no cyanosis Neurological: Grossly non-focal Urinary Catheter Management^: Ansari: Cath Placed During This Visit: yes, but has since been removed by the nurse Reason for Continuing Indwelling Catheter: Accurate Measurement of Urinary Output in Critically Ill Patients Urinary Catheter Date of Insertion: 08/08/20 Urinary Catheter Time of Insertion: 04:35 Date Urinary Catheter Removed: 08/10/20 Time Urinary Catheter Discontinued: 09:56 Data : 08/11/20 03:53 08/11/20 03:53 Micro: Microbiology 08/10/20 08:38 Blood Culture - Preliminary Blood NEGATIVE TO DATE 08/10/20 08:38 Blood Culture - Preliminary Blood NEGATIVE TO DATE 08/09/20 08:00 Urine Culture - Final Urine,Clean Catch Strep agalactiae - (group b) 08/08/20 08:36 Urine Culture - Final Urine Catheterized A&P Additional A&P Information 1. Overt renal failure Urine output remains marginal at 550 mL over the last 24 hours. I am pessimistic that he will recover kidney functionality, however, he should still be monitored for recovery following discharge. Dialysis currently pending for today, will see him over the weekend, however, plan to dialyze him again on Friday. A.m. labs Strict ins and outs Dose medication for GFR less than 15 2. Chemistry Continue calcitriol. 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 Continue outpatient calcitriol. 3. Non-STEMI Defer evaluation to cardiology, likely to be secondary to heart strain from fluid overload, no plans for LHC at this time 4. Anemia Consistent with advanced kidney disease. Iron levels low but high Ferritin, preventing iron loading. Will give Procrit 10k iu x 1 08/11. 5. Dispo OK for DC when outpatient case manager has set up outpatient dialysis Bebeto Catalan MD Nephrology [phone] Patient seen and examined via telemedicine, with the assistance of the bedside RN > 25 min spent in evaluation and mgmt of patient Attestations Medical Necessity Statement*: eval for ESRD mgmt Coding Level of Care Code Acute Turkey Farmer for Les Fuentes
[2020-08-11] MEDS: cefTRIAXone 1,000 MG in sodium chloride 0.9% (plus) 50 ML 100 MG IV (10:35)
--- NOTE | 2020-08-11 10:43 | US_ITS ---
WS: [id number] ULTRASOUND ABDOMEN LIMITED CLINICAL INFORMATION: Gallbladder US COMPARISON: None. FINDINGS: Liver Size: Enlarged Craniocaudal length: 18.9 cm. Echogenicity: Normal. Surface nodularity: None. Mass (size and location): None. Bile ducts Intrahepatic ducts: Normal. Common bile duct diameter: 0.7 cm. Gallbladder Cholelithiasis. Mild gallbladder wall thickening. Gallbladder is contracted. Gallstones: Present Gallbladder sludge: None. Gallbladder wall thickening: Mild Pericholecystic fluid: None. Sonographic Kim sign: Absent. Pancreas Not well visualized Right kidney: Simple cyst inferior Pole measuring 3.8 x 3.3 cm. Hydronephrosis: None. Size: 9.6 cm x 6.1 cm x 7.1 cm. Abdominal aorta and IVC Visualized portions are normal. Ascites: None. US/US abdomen limited [id number] IMPRESSION: 1. Hepatomegaly. 2. Cholelithiasis with mild gallbladder wall thickening. No pericholecystic fl uid. Gallbladder is contracted. 3. Prominent common bile duct measuring 7.2 mm within normal limits. 4. Gallbladder function can be further evaluated with HIDA scan if indicated. 5. No hydronephrosis right kidney. Simple cyst inferior pole right kidney.
[2020-08-11] MEDS: FUROsemide 40 mg Tablet 80 MG PO (10:55)
--- NOTE | 2020-08-11 11:40 | PC.NURSE ---
Patient left the floor to go to dialysis. VS were stable upon departure.
--- NOTE | 2020-08-11 11:44 | PM.PN ---
Subjective Subjective: Interval history: Patient was examined this morning, no fevers overnight, has a mild cough, no abdominal pain, no nausea, no vomiting, no diarrhea, no chest pain, he did receive dialysis yesterday, tolerated it well, Medications: Medication Review Details: Current Medications Acetaminophen (Acetaminophen 325 Mg Tablet) 650 mg PO Q6H PRN PRN Reason: MILD PAIN Last Admin: 08/10/20 06:28 Dose: 650 mg Documented by: Hydrocodone Bitart/Acetaminophen (Hydrocodone-Acetaminophen 5-325 Mg Tablet) 1 tab PO Q4H PRN PRN Reason: MODERATE PAIN Last Admin: 08/09/20 19:37 Dose: 1 tab Documented by: Aspirin (Aspirin 81 Mg Ec Tablet) 81 mg PO DAILY [facility] Last Admin: 08/10/20 08:01 Dose: 81 mg Documented by: Atorvastatin Calcium (Atorvastatin 40 Mg Tablet) 80 mg PO DAILY [facility] Last Admin: 08/10/20 08:01 Dose: 80 mg Documented by: Dextrose (Dextrose 50% Syringe 50 Ml) 25 ml IVP ONCE PRN; Protocol PRN Reason: hypoglycemia protocol Dextrose (Dextrose 50% Syringe 50 Ml) 50 ml IVP PRN PRN; Protocol PRN Reason: hypoglycemia protocol Glucagon (Glucagon 1 Mg/Ml Inj 1 Ml) 1 mg IM ONCE PRN; Protocol PRN Reason: Adult Acute Hypoglycemia Prot. Hydralazine HCl (Hydralazine 50 Mg Tablet) 25 mg PO TID [facility] Last Admin: 08/10/20 08:01 Dose: 25 mg Documented by: Dextrose (D5w) 500 mls @ 100 mls/hr IV ONCE PRN; Protocol PRN Reason: Adult Acute Hypoglycemia Prot Furosemide 100 mg/ Sodium (Chloride) 50 mls @ 0 mls/hr IV .Q0M [facility]; Protocol Last Admin: 08/10/20 01:43 Dose: 10 mg/hr, 5 mls/hr Documented by: Insulin Aspart (Insulin Aspart 100 Unit/1 Ml) 0 unit SUBCUT WM&BEDTIME [facility]; Protocol Last Admin: 08/10/20 07:59 Dose: 4 unit Documented by: Isosorbide Mononitrate (Isosorbide Mononitrate Er 60 Mg Tablet) 60 mg PO QAM [facility] Last Admin: 08/10/20 05:58 Dose: 60 mg Documented by: Levothyroxine Sodium (Levothyroxine 25 Mcg Tablet) 25 mcg PO DAILY [facility] Last Admin: 08/10/20 08:01 Dose: 25 mcg Documented by: Metoprolol Tartrate (Metoprolol Tartrate 50 Mg Tablet) 75 mg PO BID [facility] Last Admin: 08/10/20 08:01 Dose: 75 mg Documented by: Morphine Sulfate (Morphine 4 Mg/Ml Sdv 1 Ml) 2 mg IVP Q4H PRN PRN Reason: SEVERE PAIN Last Admin: 08/09/20 06:17 Dose: 2 mg Documented by: Multivitamins (L-Gpxzruv-Zgxrwck C Tablet) 1 each PO DAILY [facility] Last Admin: 08/10/20 08:04 Dose: 1 each Documented by: Nitroglycerin (Nitroglycerin 0.4 Mg Sublingual Tablet) 0.4 mg SUBLINGUAL Q5M PRN PRN Reason: Chest Pain Ondansetron HCl (Ondansetron 2 Mg/Ml Sdv 2 Ml) 4 mg IVP Q6H PRN PRN Reason: NAUSEA AND VOMITING Pantoprazole Sodium (Pantoprazole 40 Mg Sdv) 40 mg IVP Q12H [facility] Last Admin: 08/10/20 01:44 Dose: 40 mg Documented by: Sevelamer Carbonate (Sevelamer 800 Mg Tablet) 1,600 mg PO TID [facility] Last Admin: 08/10/20 08:00 Dose: 1,600 mg Documented by: Sucralfate (Sucralfate 1 Gm Tablet) 1 gm PO AC&BEDTIME [facility] Last Admin: 08/10/20 05:58 Dose: 1 gm Documented by: Terazosin HCl (Terazosin 5 Mg Capsule) 10 mg PO BID [facility] Last Admin: 08/10/20 08:01 Dose: 10 mg Documented by: Vitals/I&O/Wt Last Vital Signs Temp 98.0 F 08/11/20 10:00 Pulse 68 08/11/20 07:21 Resp 16 08/11/20 07:21 BP 158/72 08/11/20 07:21 Pulse Ox 97 08/11/20 07:21 08/10/20 08/11/20 08/11/20 22:59 06:59 14:59 Intake Total 290 / 567.083 Output Total 250 / 350 200 / 550 Balance 40 / 217.083 -200 / 17.083 Weight last 48 hrs Weight 101.287 kg Weight 103.059 kg Physical Exam Const: COMMON NORMALS: no acute distress and patient oriented x3 HENMT: COMMON NORMALS: normocephalic HEAD & SCALP: normocephalic Neck/C-Spine: COMMON NORMALS: no JVD Chest: OTHER: Right dialysis catheter in place Resp: COMMON NORMALS: normal respiratory effort, No retractions, No use of accessory muscles and clear to auscultation bilaterally AUSCULTATION: clear to auscultation bilaterally Cardio: COMMON NORMALS: no JVD, regular rate, regular rhythm, S1 normal heart sound present and S2 normal heart sound present RATE: regular rate RHYTHM: regular rhythm HEART SOUNDS: S1 normal heart sound present and S2 normal heart sound present GI: COMMON NORMALS: Normal to inspection, nondistended, normoactive bowel sounds present, Soft to palpation, non-tender, No hepatosplenomegaly present, no masses and no bruits PALPATION: Yes Soft to palpation and Yes No hepatosplenomegaly present Extremity: COMMON NORMALS: capillary refill normal, no clubbing, cyanosis or edema, no calf tenderness and no pedal edema Neuro: COMMON NORMALS: patient oriented x3 Psych: COMMON NORMALS: mental status grossly normal Urinary Catheter Management^: Ansari: Cath Placed During This Visit: yes, but has since been removed by the nurse Reason for Continuing Indwelling Catheter: Accurate Measurement of Urinary Output in Critically Ill Patients Urinary Catheter Date of Insertion: 08/08/20 Urinary Catheter Time of Insertion: 04:35 Date Urinary Catheter Removed: 08/10/20 Time Urinary Catheter Discontinued: 09:56 Data : 08/11/20 03:53 08/11/20 03:53 Micro: Microbiology 08/10/20 08:38 Blood Culture - Preliminary Blood NEGATIVE TO DATE 08/10/20 08:38 Blood Culture - Preliminary Blood NEGATIVE TO DATE 08/09/20 08:00 Urine Culture - Final Urine,Clean Catch Strep agalactiae - (group b) 08/08/20 08:36 Urine Culture - Final Urine Catheterized A&P Assessment and plan (1) Acute kidney injury superimposed on CKD: - Ansari out, 400 cc urine output -Creatinine 7.2, baseline creatinine 4 -Renal ultrasound negative for hydronephrosis -Likely acute renal failure related to cardiorenal syndrome, renal hypoperfusion -UA does show eosinophils, eosinophil stain positive, ESR 80, but could be from Lasix, no new medications, rheumatologic titers pending, does take allopurinol which has been held -Status post dialysis catheter placement, dialysis Plan: -Consult nephrology -80 mg Lasix daily -Currently on hemodialysis, will receive today -We will need to arrange outpatient dialysis Plan for today, dialysis, monitor respiratory status, elevate leukocytosis, CT scan of the abdomen pelvis, start antibiotics for possible UTI, PT OT, hopefully can be discharged in the next 24-4 8 hours Status: Acute (2) Non-ST elevated myocardial infarction (non-STEMI): -Has complaints of intermittent chest pain -EKG shows sinus rhythm with first-degree AV block -Baseline troponin 252, 6-hour troponin 200.3, negative delta 51.7, BNP 4360 -Has a history of CAD -Etiology likely related to at anasarca, fluid overload, CHF -However cannot rule out underlying cardiac etiology Plan: -Start aspirin 81 mg, atorvastatin 80 mg, metoprolol, Imdur -Plavix started today 75 mg daily, monitor hemoglobin, monitor for nosebleeds -Cardiac echocardiogram ordered, pending -Monitor for chest pain, monitor telemetry -Cardiology on consult Status: Acute (3) Acute on chronic anemia: -Etiology likely multifactorial related to CKD, possible slow GI bleed, recurrent nosebleeds -Hemoglobin 7.7 Plan: -Status post 1 unit PRBC, monitor hemoglobin, monitor hemodynamics, monitor for bloody or black stools -Patient started on Plavix -Hemoccult stool pending -Protonix 40 twice daily, Carafate -Monitor for nosebleeds, currently none Status: Acute (4) Chronic kidney disease (CKD) stage G5/A1, glomerular filtration rate (GFR) less than or equal to 15 mL/min/1.73 square meter and albuminuria creatinine ratio less than 30 mg/g: Status: Acute (5) Hypothyroidism: Status: Acute (6) Diabetes 1.5, managed as type 2: Status: Chronic (7) Essential hypertension: Status: Chronic (8) KAITLYNN (obstructive sleep apnea): Status: Acute (9) Dyslipidemia: Status: Chronic (10) Congestive 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: -Chronically on 2 to 3 L nasal cannula Status: Acute Additional A&P Information 70 year old male with past medical history of coronary artery disease, stents, last one in 2012, hypertension, chronic kidney disease stage IV-V, diabetes, diabetic neuropathy, recurrent nosebleeds, dyslipidemia, hypothyroidism, GERD, CVA, severe peripheral vascular disease who is presenting with chest pain. Patient has non-ST elevation [place], acute on chronic kidney failure, worsened anemia probably due to persistent nosebleeds. Bilateral gaming pain, calf pain, ultrasound negative for DVT Leukocytosis 17,000, afebrile, chest x-ray no pneumonia, possible UTI, CRP 141, pro-Tejas 0.5, no abdominal complaints, but will order CT scan of the abdomen pelvis, follow urine cultures and blood cultures, stool cultures CODE STATUS. The patient wants to be full code. The plan of care was discussed with the patient. 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
[2020-08-11 13:58] LABS: ANA SCREEN, IFA NEGATIVE (NEGATIVE)
[2020-08-11 15:03] LABS: Anti-Double Strand DNA AB <1 IU/mL; CENTROMERE B ANTIBODY <1.0 NEG AI (<1.0 NEG); JO-1 ANTIBODY <1.0 NEG AI (<1.0 NEG); RNP ANTIBODY <1.0 NEG AI (<1.0 NEG); SCL-70 ANTIBODY <1.0 NEG AI (<1.0 NEG); SJOGREN'S ANTIBODY (SS-A) <1.0 NEG AI (<1.0 NEG); SM ANTIBODY <1.0 NEG AI (<1.0 NEG); SS-B <1.0 NEG AI (<1.0 NEG)
--- NOTE | 2020-08-11 15:12 | PC.NURSE ---
Patient just came back to the floor from dialysis. Patient is doing well. VS are stable and patient has no complaints. Nurse will continue to monitor.
[2020-08-11] MEDS: clopidogrel 75 mg Tablet PO (15:26)
[2020-08-11 16:33] LABS: Glucose Point of Care 152 mg/dL (70-110)
[2020-08-11] MEDS: piperacillin-tazobactam 3.375 GM in sodium chloride 0.9% (plus) 50 ML IV (17:16)
--- NOTE | 2020-08-11 17:31 | PM.PN ---
Subjective Subjective: Interval history: Patient denies any complaint. Medications: Reviewed: Yes Medication Review Details: Current Medications Acetaminophen (Acetaminophen 325 Mg Tablet) 650 mg PO Q6H PRN PRN Reason: MILD PAIN Last Admin: 08/10/20 06:28 Dose: 650 mg Documented by: Hydrocodone Bitart/Acetaminophen (Hydrocodone-Acetaminophen 5-325 Mg Tablet) 1 tab PO Q4H PRN PRN Reason: MODERATE PAIN Last Admin: 08/09/20 19:37 Dose: 1 tab Documented by: Aspirin (Aspirin 81 Mg Ec Tablet) 81 mg PO DAILY [facility] Last Admin: 08/10/20 08:01 Dose: 81 mg Documented by: Atorvastatin Calcium (Atorvastatin 40 Mg Tablet) 80 mg PO DAILY [facility] Last Admin: 08/10/20 08:01 Dose: 80 mg Documented by: Dextrose (Dextrose 50% Syringe 50 Ml) 25 ml IVP ONCE PRN; Protocol PRN Reason: hypoglycemia protocol Dextrose (Dextrose 50% Syringe 50 Ml) 50 ml IVP PRN PRN; Protocol PRN Reason: hypoglycemia protocol Glucagon (Glucagon 1 Mg/Ml Inj 1 Ml) 1 mg IM ONCE PRN; Protocol PRN Reason: Adult Acute Hypoglycemia Prot. Hydralazine HCl (Hydralazine 50 Mg Tablet) 25 mg PO TID [facility] Last Admin: 08/10/20 08:01 Dose: 25 mg Documented by: Dextrose (D5w) 500 mls @ 100 mls/hr IV ONCE PRN; Protocol PRN Reason: Adult Acute Hypoglycemia Prot Furosemide 100 mg/ Sodium (Chloride) 50 mls @ 0 mls/hr IV .Q0M [facility]; Protocol Last Admin: 08/10/20 01:43 Dose: 10 mg/hr, 5 mls/hr Documented by: Insulin Aspart (Insulin Aspart 100 Unit/1 Ml) 0 unit SUBCUT WM&BEDTIME [facility]; Protocol Last Admin: 08/10/20 07:59 Dose: 4 unit Documented by: Isosorbide Mononitrate (Isosorbide Mononitrate Er 60 Mg Tablet) 60 mg PO QAM [facility] Last Admin: 08/10/20 05:58 Dose: 60 mg Documented by: Levothyroxine Sodium (Levothyroxine 25 Mcg Tablet) 25 mcg PO DAILY [facility] Last Admin: 08/10/20 08:01 Dose: 25 mcg Documented by: Metoprolol Tartrate (Metoprolol Tartrate 50 Mg Tablet) 75 mg PO BID [facility] Last Admin: 08/10/20 08:01 Dose: 75 mg Documented by: Morphine Sulfate (Morphine 4 Mg/Ml Sdv 1 Ml) 2 mg IVP Q4H PRN PRN Reason: SEVERE PAIN Last Admin: 08/09/20 06:17 Dose: 2 mg Documented by: Multivitamins (K-Ocjqxeh-Muekrpe C Tablet) 1 each PO DAILY [facility] Last Admin: 08/10/20 08:04 Dose: 1 each Documented by: Nitroglycerin (Nitroglycerin 0.4 Mg Sublingual Tablet) 0.4 mg SUBLINGUAL Q5M PRN PRN Reason: Chest Pain Ondansetron HCl (Ondansetron 2 Mg/Ml Sdv 2 Ml) 4 mg IVP Q6H PRN PRN Reason: NAUSEA AND VOMITING Pantoprazole Sodium (Pantoprazole 40 Mg Sdv) 40 mg IVP Q12H [facility] Last Admin: 08/10/20 01:44 Dose: 40 mg Documented by: Sevelamer Carbonate (Sevelamer 800 Mg Tablet) 1,600 mg PO TID [facility] Last Admin: 08/10/20 08:00 Dose: 1,600 mg Documented by: Sucralfate (Sucralfate 1 Gm Tablet) 1 gm PO AC&BEDTIME [facility] Last Admin: 08/10/20 05:58 Dose: 1 gm Documented by: Terazosin HCl (Terazosin 5 Mg Capsule) 10 mg PO BID [facility] Last Admin: 08/10/20 08:01 Dose: 10 mg Documented by: Vitals/I&O/Wt Last Vital Signs Temp 98.3 F 08/11/20 15:16 Pulse 68 08/11/20 15:16 Resp 19 H 08/11/20 15:16 BP 171/76 08/11/20 15:16 Pulse Ox 98 08/11/20 15:16 08/11/20 08/11/20 08/11/20 06:59 14:59 22:59 Intake Total 2 / 2 Output Total 200 / 550 Balance -200 / 17.083 2 / 2 Weight last 48 hrs Weight 223 lb 4.8 oz Weight 227 lb 3.299 oz Physical Exam Narrative: EXAM NARRATIVE: GENERAL: Patient is alert, awake and oriented x3. NECK: No jugular vein distension. HEENT: No cyanosis. No icterus. No pallor. HEART: Regular S1 and S2. No murmur, rub or gallop. LUNGS: Basal crackles bilaterally. ABDOMEN: Soft, nontender and nondistended. Positive bowel sounds. No guarding, rebound or tenderness. CENTRAL NERVOUS SYSTEM: Grossly nonfocal. EXTREMITIES: Lower extremities without edema bilaterally. Urinary Catheter Management^: Ansari: Cath Placed During This Visit: yes, but has since been removed by the nurse Reason for Continuing Indwelling Catheter: Accurate Measurement of Urinary Output in Critically Ill Patients Urinary Catheter Date of Insertion: 08/08/20 Urinary Catheter Time of Insertion: 04:35 Date Urinary Catheter Removed: 08/10/20 Time Urinary Catheter Discontinued: 09:56 Data : 08/11/20 03:53 08/11/20 03:53 Micro: Microbiology 08/10/20 08:38 Blood Culture - Preliminary Blood NEGATIVE TO DATE 08/10/20 08:38 Blood Culture - Preliminary Blood NEGATIVE TO DATE 08/09/20 08:00 Urine Culture - Final Urine,Clean Catch Strep agalactiae - (group b) A&P Assessment and plan (1) Non-ST elevated myocardial infarction (non-STEMI): This is a very complicated patient with prior history of coronary artery disease presented with anemia history of recurrent nosebleed worsening of renal failure congestive heart failure. He is high risk for bleeding and primary PCI due to underlying comorbidities. I will ask for echocardiogram to assess LV function. We will for now optimize his medications. He is being diuresed with the help of nephrology. He may will be requiring dialysis at some point once started dialysis and stabilized anemia sunshine may consider left heart cath. For now continue aspirin statin beta-artem and P2 Y 12 inhibitor. Add isosorbide mononitrate. Remained stable doing fine from a cardiovascular perspective denies any chest pain continue to manage medically. No intention of taking the patient to the [facility] On today's visit patient denies any complaint continue current regimen will assess him as an outpatient once stable anemia sunshine we will reassess him for left heart cath. Status: Acute (2) Congestive 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: Euvolemic and well compensated continue to monitor with optimization of medicine and dialysis Status: Acute (3) Essential hypertension: Well-controlled. Continue to monitor Status: Chronic (4) Acute kidney injury superimposed on CKD: As per nephrology. Status: Acute (5) Anemia: As per medicine and nephrology Status: Acute Attestations Medical Necessity Statement*: Patient require continuation hospitalization for above defined care Coding Level of Care Code Established Pt Acute Team Manager for Chg Fwd Patient Type Established History Detailed Exam Detailed Medical Decision Making Moderate Complexity Diagnoses Non-ST elevated myocardial infarction (non-STEMI) I21.4 Congestive 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 I11.0 Essential hypertension I10 Acute kidney injury superimposed on CKD N17.9; N18.9 Anemia D64.9
[2020-08-11 20:40] LABS: Glucose Point of Care 189 mg/dL (70-110)
[2020-08-11] MEDS: ondansetron 2 mg/ML SDV 2 mL 4 MG IVP (22:15)
[2020-08-12] VITALS (9 sets, daily range): BP systolic 142–170; BP diastolic 63–91; PULSE 51–74; RESP 16–18; TEMP 36.4–37.1; O2SAT 97–98
[2020-08-12] MEDS: pantoprazole 40 mg SDV IVP ×3 (02:27→21:33)
[2020-08-12 02:54] LABS: Glucose Point of Care 165 mg/dL (70-110)
[2020-08-12 04:35] LABS: Basophils # 0.1 10^3/uL (0.0-0.1); Basophils % 0.3 %; Eosinophils # 0.5 10^3/uL (0.0-0.8); Eosinophils % 2.8 %; Hematocrit 24.9 % (42.0-52.0); Hemoglobin 7.9 g/dL (11.7-16.6); Lymphocytes # 0.6 10^3/uL (0.8-4.8); Lymphocytes % 3.4 %; Mean Corpuscular HGB Conc 31.7 g/dL (30.0-36.0); Mean Corpuscular Volume 88.3 fL (80-94); Mean Platelet Volume 11.5 fL (7.4-10.4); Monocytes # 1.1 10^3/uL (0.2-0.9); Monocytes % 6.3 %; Neutrophils # 15.19 10^3/uL (1.8-7.7); Neutrophils % 86.3 %; Nucleated Red Blood Cells % 0 %; Platelet Count 185 10^3/cmm (130-400); Red Blood Count 2.82 10^6/uL (4.1-5.3); Red Cell Distribution Width 17.4 % (12.1-15.1); White Blood Count 17.6 10^3/uL (4.0-10.0)
[2020-08-12 05:16] LABS: Procalcitonin 0.53 ng/mL (0-0.5)
[2020-08-12 05:26] LABS: Glucose Point of Care 135 mg/dL (70-110)
[2020-08-12 05:27] LABS: Alanine Aminotransferase < 5 U/L (0-41); Alkaline Phosphatase 156 IU/L (40-130); Anion Gap 17.3 (5-19); Aspartate Amino Transferase 8 U/L (0-40); Blood Urea Nitrogen 47 mg/dL (8-23); C Reactive Protein 150.5 mg/L (0.0-4.9); Calcium 7.7 mg/dL (8.5-10.5); Carbon Dioxide 25 mmol/L (22-29); Chloride 97 mmol/L (98-107); Gamma Glutamyl Transferase 36 U/L (8-61); Glomerular Filtration Rate 13.4 mL/min (90-130); Glucose 136 mg/dL (65-115); Magnesium 1.9 mg/dL (1.7-2.3); Osmolality Calculated 296 mOsm/kg (285-295); Phosphorus 3.5 mg/dL (2.5-4.5); Potassium 3.3 mmol/L (3.5-5.1); Sodium 136 mmol/L (136-145); Total Bilirubin 0.3 mg/dL (0.15-1.2)
[2020-08-12] MEDS: piperacillin-tazobactam 3.375 GM in sodium chloride 0.9% (plus) 50 ML IV ×2 (05:58→16:26)
[2020-08-12] MEDS: isosorbide mononitrate ER 60 mg Tablet PO (05:59)
[2020-08-12] MEDS: sucralfate 1 gm Tablet PO ×3 (06:02→20:34)
[2020-08-12 06:54] LABS: Glucose Point of Care 133 mg/dL (70-110)
[2020-08-12] MEDS: FUROsemide 40 mg Tablet 80 MG PO (08:36)
[2020-08-12] MEDS: aspirin 81 mg EC Tablet PO (08:36)
[2020-08-12] MEDS: sevelamer 800 mg Tablet 1600 MG PO ×3 (08:37→20:34)
[2020-08-12] MEDS: b-complex-vitamin c Tablet 1 EACH PO (08:37)
[2020-08-12] MEDS: atorvastatin 40 mg Tablet 80 MG PO (08:37)
[2020-08-12] MEDS: clopidogrel 75 mg Tablet PO (08:37)
[2020-08-12] MEDS: metoprolol tartrate 50 mg Tablet 75 MG PO ×2 (08:37→17:57)
[2020-08-12] MEDS: levothyroxine 25 mcg Tablet PO (08:37)
[2020-08-12] MEDS: lisinopril 5 mg Tablet PO (08:37)
[2020-08-12] MEDS: terazosin 5 mg Capsule 10 MG PO ×2 (08:38→17:56)
--- NOTE | 2020-08-12 09:37 | PC.NURSE ---
During morning rounds Dr. Hopkins stated he would be ordering miralax for patient but not to give it until after the nuclear med test.
--- NOTE | 2020-08-12 09:48 | PC.NURSE ---
Patient taken to [facility] for scan.
--- NOTE | 2020-08-12 10:00 | NMR_ITS ---
PROCEDURE INFORMATION: Exam: NM Hepatobiliary Including Gallbladder When Present Exam date and time: 08/12/2020 9:35 AM Age: 70 years old Clinical indication: Abnormal findings; Abnormal radiologic findings, biliary tract; Additional info: Acute cholecystitis? TECHNIQUE: Imaging protocol: Hepatobiliary system imaging including the gallbladder when present. Projections: Frontal abdomen. Radiopharmaceutical: 8.5 mCI Tc-99m Mebrofenin (Choletec, Bromotriethyl-BANDAR), IV. 8 ounces of Ensure Plus Oral. Time of imaging post radiopharmaceutical administration: 60 minutes following radiopharmaceutical. COMPARISON: CT abdomen pelvis wo con [id number] 08/11/2020 9:30 AM FINDINGS: Liver: Unremarkable. Homogeneous radiotracer uptake. Gallbladder: Isotope is identified in the gallbladder 15 minutes after injection. After administration of 8 oz of Ensure Plus no detectable gallbladder ejection was seen.. Bile ducts: Unremarkable. Clearly visualized. Normal hepatic to biliary transit time. Stomach and bowel: Unremarkable. No evidence of significant enterogastric reflux. Radiotracer activity is seen in the small bowel. Normal biliary to bowel transit time. NM/NM hepatobiliary wo phar [id number] IMPRESSION: 1. No evidence of acute cholecystitis or bile duct obstruction. 2. Gallbladder ejection fraction was markedly decreased and nondetectable.
--- NOTE | 2020-08-12 10:03 | PC.CHAP ---
Pastoral Care Encounter/Spiritual Assessment Type of Contact [] Declined impregnation operator visit [] Patient/Family/Request visit [] Outpatient visit [XX] Follow-up visit [] Physician referral [] Code/Alert [XX] Routine visit [] Staff referral [] Actively dying [] Patient sleeping [] Family support [] [XX] Out of room [] Palliative care [] [] Receiving care in room [] Pre-surgical visit [] Trauma [] Long length of stay [] ICU visit [] Other: Relational/Emotional Strength [] Patient feels connected with others/family/visitors/staff [] Distress [] Loneliness/isolation [] Abandonment Spirituality of Patient [] Person of Zulma [] Attends Denominational of their Zulma [] Believes in Prayer [] Reads Bible or Zoroastrianism materials [] There are Spiritual issues to be addressed Agronomy Location Manager Interventions [] Prayer [] Active listening [] Non-anxious presence [] Spiritual/emotional support [] Crisis/trauma care [] Spiritual counseling [] Bereavement support [] Provided bereavement packet [] Provided Bible/devotional materials [] Provided toy/stuffed animal, coloring book to patient or family member [] Provided Communion [] Anointing/[place] [] Salvation [] Completed spiritual assessment [] Other: Impact on Illness or Injury [] Angry [] Fearful [] Anxious [] Often cries [] Exhaustion [] Unable to work [] Unable to attend alevism [] Unable to walk/stand [] Unable to read [] Unable to drive [] Unable to eat/drink [] Unable to sleep [] Unable to be with family [] Patient intubated [] Other: Summary: Agronomy Location Manager TT had prayed over pt when he was in ICU, so plan today was to visit with pt, if pt agreed. However, pt out of room for a procedure (per nurse). Agronomy Location Manager LWD will attempt visit again tomorrow. Time spent with patient
--- NOTE | 2020-08-12 10:34 | PM.PN ---
Subjective Subjective: Interval history: Denies any chest pain. Hemoglobin remained around 7.7 Medications: Reviewed: Yes Medication Review Details: Current Medications Acetaminophen (Acetaminophen 325 Mg Tablet) 650 mg PO Q6H PRN PRN Reason: MILD PAIN Last Admin: 08/10/20 06:28 Dose: 650 mg Documented by: Hydrocodone Bitart/Acetaminophen (Hydrocodone-Acetaminophen 5-325 Mg Tablet) 1 tab PO Q4H PRN PRN Reason: MODERATE PAIN Last Admin: 08/09/20 19:37 Dose: 1 tab Documented by: Aspirin (Aspirin 81 Mg Ec Tablet) 81 mg PO DAILY [facility] Last Admin: 08/10/20 08:01 Dose: 81 mg Documented by: Atorvastatin Calcium (Atorvastatin 40 Mg Tablet) 80 mg PO DAILY [facility] Last Admin: 08/10/20 08:01 Dose: 80 mg Documented by: Dextrose (Dextrose 50% Syringe 50 Ml) 25 ml IVP ONCE PRN; Protocol PRN Reason: hypoglycemia protocol Dextrose (Dextrose 50% Syringe 50 Ml) 50 ml IVP PRN PRN; Protocol PRN Reason: hypoglycemia protocol Glucagon (Glucagon 1 Mg/Ml Inj 1 Ml) 1 mg IM ONCE PRN; Protocol PRN Reason: Adult Acute Hypoglycemia Prot. Hydralazine HCl (Hydralazine 50 Mg Tablet) 25 mg PO TID [facility] Last Admin: 08/10/20 08:01 Dose: 25 mg Documented by: Dextrose (D5w) 500 mls @ 100 mls/hr IV ONCE PRN; Protocol PRN Reason: Adult Acute Hypoglycemia Prot Furosemide 100 mg/ Sodium (Chloride) 50 mls @ 0 mls/hr IV .Q0M [facility]; Protocol Last Admin: 08/10/20 01:43 Dose: 10 mg/hr, 5 mls/hr Documented by: Insulin Aspart (Insulin Aspart 100 Unit/1 Ml) 0 unit SUBCUT WM&BEDTIME [facility]; Protocol Last Admin: 08/10/20 07:59 Dose: 4 unit Documented by: Isosorbide Mononitrate (Isosorbide Mononitrate Er 60 Mg Tablet) 60 mg PO QAM [facility] Last Admin: 08/10/20 05:58 Dose: 60 mg Documented by: Levothyroxine Sodium (Levothyroxine 25 Mcg Tablet) 25 mcg PO DAILY [facility] Last Admin: 08/10/20 08:01 Dose: 25 mcg Documented by: Metoprolol Tartrate (Metoprolol Tartrate 50 Mg Tablet) 75 mg PO BID [facility] Last Admin: 08/10/20 08:01 Dose: 75 mg Documented by: Morphine Sulfate (Morphine 4 Mg/Ml Sdv 1 Ml) 2 mg IVP Q4H PRN PRN Reason: SEVERE PAIN Last Admin: 08/09/20 06:17 Dose: 2 mg Documented by: Multivitamins (U-Figwsix-Ybmkhny C Tablet) 1 each PO DAILY [facility] Last Admin: 08/10/20 08:04 Dose: 1 each Documented by: Nitroglycerin (Nitroglycerin 0.4 Mg Sublingual Tablet) 0.4 mg SUBLINGUAL Q5M PRN PRN Reason: Chest Pain Ondansetron HCl (Ondansetron 2 Mg/Ml Sdv 2 Ml) 4 mg IVP Q6H PRN PRN Reason: NAUSEA AND VOMITING Pantoprazole Sodium (Pantoprazole 40 Mg Sdv) 40 mg IVP Q12H [facility] Last Admin: 08/10/20 01:44 Dose: 40 mg Documented by: Sevelamer Carbonate (Sevelamer 800 Mg Tablet) 1,600 mg PO TID [facility] Last Admin: 08/10/20 08:00 Dose: 1,600 mg Documented by: Sucralfate (Sucralfate 1 Gm Tablet) 1 gm PO AC&BEDTIME [facility] Last Admin: 08/10/20 05:58 Dose: 1 gm Documented by: Terazosin HCl (Terazosin 5 Mg Capsule) 10 mg PO BID [facility] Last Admin: 08/10/20 08:01 Dose: 10 mg Documented by: Vitals/I&O/Wt Last Vital Signs Temp 98.7 F 08/12/20 08:00 Pulse 66 08/12/20 10:16 Resp 16 08/12/20 08:00 BP 142/66 08/12/20 08:00 Pulse Ox 97 08/12/20 10:16 08/11/20 08/12/20 08/12/20 22:59 06:59 14:59 Intake Total 292 / 292 Balance 292 / 292 Weight last 48 hrs Weight 226 lb 1.6 oz Weight 223 lb 4.8 oz Physical Exam Narrative: EXAM NARRATIVE: GENERAL: Patient is alert, awake and oriented x3. NECK: No jugular vein distension. HEENT: No cyanosis. No icterus. No pallor. HEART: Regular S1 and S2. No murmur, rub or gallop. LUNGS: Basal crackles bilaterally. ABDOMEN: Soft, nontender and nondistended. Positive bowel sounds. No guarding, rebound or tenderness. CENTRAL NERVOUS SYSTEM: Grossly nonfocal. EXTREMITIES: Lower extremities without edema bilaterally. Urinary Catheter Management^: Ansari: Cath Placed During This Visit: yes, but has since been removed by the nurse Reason for Continuing Indwelling Catheter: Accurate Measurement of Urinary Output in Critically Ill Patients Urinary Catheter Date of Insertion: 08/08/20 Urinary Catheter Time of Insertion: 04:35 Date Urinary Catheter Removed: 08/10/20 Time Urinary Catheter Discontinued: 09:56 Data : 08/12/20 03:12 08/12/20 03:12 Micro: Microbiology 08/10/20 08:38 Blood Culture - Preliminary Blood NEGATIVE TO DATE 08/10/20 08:38 Blood Culture - Preliminary Blood NEGATIVE TO DATE 08/09/20 08:00 Urine Culture - Final Urine,Clean Catch Strep agalactiae - (group b) A&P Assessment and plan (1) Non-ST elevated myocardial infarction (non-STEMI): This is a very complicated patient with prior history of coronary artery disease presented with anemia history of recurrent nosebleed worsening of renal failure congestive heart failure. He is high risk for bleeding and primary PCI due to underlying comorbidities. I will ask for echocardiogram to assess LV function. We will for now optimize his medications. He is being diuresed with the help of nephrology. He may will be requiring dialysis at some point once started dialysis and stabilized anemia sunshine may consider left heart cath. For now continue aspirin statin beta-artem and P2 Y 12 inhibitor. Add isosorbide mononitrate. Remained stable doing fine from a cardiovascular perspective denies any chest pain continue to manage medically. No intention of taking the patient to the [facility] On today's visit patient denies any complaint continue current regimen will assess him as an outpatient once stable anemia sunshine we will reassess him for left heart cath. Stable from a cardiovascular perspective continue to manage medically continue statin aspirin Plavix beta-artem and isosorbide mononitrate. Patient is high risk for intervention due to risk of bleeding. Once stable anemia sunshine as an outpatient consider left heart cath if continues to have angina Status: Acute (2) Congestive 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: Here to be euvolemic continue diuretics and dialysis Status: Acute (3) Essential hypertension: Well-controlled. Continue to monitor Status: Chronic (4) Acute kidney injury superimposed on CKD: As per nephrology. 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
--- NOTE | 2020-08-12 14:35 | PM.PN ---
Subjective Subjective: Interval history: Patient was examined this morning, he tells me that he had a terrible night, and did not get sleep at all throughout the night, he is tolerating dialysis well yesterday, but this morning he complains of some right upper quadrant tenderness, no nausea, no vomiting, he has not had a bowel movement, no fevers, no chills, Medications: Medication Review Details: Current Medications Acetaminophen (Acetaminophen 325 Mg Tablet) 650 mg PO Q6H PRN PRN Reason: MILD PAIN Last Admin: 08/10/20 06:28 Dose: 650 mg Documented by: Hydrocodone Bitart/Acetaminophen (Hydrocodone-Acetaminophen 5-325 Mg Tablet) 1 tab PO Q4H PRN PRN Reason: MODERATE PAIN Last Admin: 08/09/20 19:37 Dose: 1 tab Documented by: Aspirin (Aspirin 81 Mg Ec Tablet) 81 mg PO DAILY [facility] Last Admin: 08/10/20 08:01 Dose: 81 mg Documented by: Atorvastatin Calcium (Atorvastatin 40 Mg Tablet) 80 mg PO DAILY [facility] Last Admin: 08/10/20 08:01 Dose: 80 mg Documented by: Dextrose (Dextrose 50% Syringe 50 Ml) 25 ml IVP ONCE PRN; Protocol PRN Reason: hypoglycemia protocol Dextrose (Dextrose 50% Syringe 50 Ml) 50 ml IVP PRN PRN; Protocol PRN Reason: hypoglycemia protocol Glucagon (Glucagon 1 Mg/Ml Inj 1 Ml) 1 mg IM ONCE PRN; Protocol PRN Reason: Adult Acute Hypoglycemia Prot. Hydralazine HCl (Hydralazine 50 Mg Tablet) 25 mg PO TID [facility] Last Admin: 08/10/20 08:01 Dose: 25 mg Documented by: Dextrose (D5w) 500 mls @ 100 mls/hr IV ONCE PRN; Protocol PRN Reason: Adult Acute Hypoglycemia Prot Furosemide 100 mg/ Sodium (Chloride) 50 mls @ 0 mls/hr IV .Q0M [facility]; Protocol Last Admin: 08/10/20 01:43 Dose: 10 mg/hr, 5 mls/hr Documented by: Insulin Aspart (Insulin Aspart 100 Unit/1 Ml) 0 unit SUBCUT WM&BEDTIME [facility]; Protocol Last Admin: 08/10/20 07:59 Dose: 4 unit Documented by: Isosorbide Mononitrate (Isosorbide Mononitrate Er 60 Mg Tablet) 60 mg PO QAM [facility] Last Admin: 08/10/20 05:58 Dose: 60 mg Documented by: Levothyroxine Sodium (Levothyroxine 25 Mcg Tablet) 25 mcg PO DAILY [facility] Last Admin: 08/10/20 08:01 Dose: 25 mcg Documented by: Metoprolol Tartrate (Metoprolol Tartrate 50 Mg Tablet) 75 mg PO BID [facility] Last Admin: 08/10/20 08:01 Dose: 75 mg Documented by: Morphine Sulfate (Morphine 4 Mg/Ml Sdv 1 Ml) 2 mg IVP Q4H PRN PRN Reason: SEVERE PAIN Last Admin: 08/09/20 06:17 Dose: 2 mg Documented by: Multivitamins (F-[id number]-[id number] C Tablet) 1 each PO DAILY [facility] Last Admin: 08/10/20 08:04 Dose: 1 each Documented by: Nitroglycerin (Nitroglycerin 0.4 Mg Sublingual Tablet) 0.4 mg SUBLINGUAL Q5M PRN PRN Reason: Chest Pain Ondansetron HCl (Ondansetron 2 Mg/Ml Sdv 2 Ml) 4 mg IVP Q6H PRN PRN Reason: NAUSEA AND VOMITING Pantoprazole Sodium (Pantoprazole 40 Mg Sdv) 40 mg IVP Q12H [facility] Last Admin: 08/10/20 01:44 Dose: 40 mg Documented by: Sevelamer Carbonate (Sevelamer 800 Mg Tablet) 1,600 mg PO TID [facility] Last Admin: 08/10/20 08:00 Dose: 1,600 mg Documented by: Sucralfate (Sucralfate 1 Gm Tablet) 1 gm PO AC&BEDTIME [facility] Last Admin: 08/10/20 05:58 Dose: 1 gm Documented by: Terazosin HCl (Terazosin 5 Mg Capsule) 10 mg PO BID [facility] Last Admin: 08/10/20 08:01 Dose: 10 mg Documented by: Vitals/I&O/Wt Last Vital Signs Temp 98.7 F 08/12/20 08:00 Pulse 72 08/12/20 14:00 Resp 16 08/12/20 08:00 BP 142/66 08/12/20 08:00 Pulse Ox 97 08/12/20 10:16 08/11/20 08/12/20 08/12/20 22:59 06:59 14:59 Intake Total 292 / 292 Balance 292 / 292 Weight last 48 hrs Weight 102.557 kg Weight 101.287 kg Physical Exam Const: COMMON NORMALS: no acute distress and patient oriented x3 HENMT: COMMON NORMALS: normocephalic HEAD & SCALP: normocephalic Neck/C-Spine: COMMON NORMALS: no JVD Resp: COMMON NORMALS: normal respiratory effort, No retractions, No use of accessory muscles and clear to auscultation bilaterally AUSCULTATION: clear to auscultation bilaterally Cardio: COMMON NORMALS: no JVD, regular rate, regular rhythm, S1 normal heart sound present and S2 normal heart sound present RATE: regular rate RHYTHM: regular rhythm HEART SOUNDS: S1 normal heart sound present and S2 normal heart sound present GI: COMMON NORMALS: Normal to inspection, nondistended, normoactive bowel sounds present, Soft to palpation, non-tender, no masses and no bruits PALPATION: Yes Soft to palpation and Yes Tenderness to palpation present (GI) Details: RUQ Extremity: COMMON NORMALS: capillary refill normal, no clubbing, cyanosis or edema, no calf tenderness and no pedal edema Neuro: COMMON NORMALS: patient oriented x3 Psych: COMMON NORMALS: mental status grossly normal Urinary Catheter Management^: Ansari: Cath Placed During This Visit: yes, but has since been removed by the nurse Reason for Continuing Indwelling Catheter: Accurate Measurement of Urinary Output in Critically Ill Patients Urinary Catheter Date of Insertion: 08/08/20 Urinary Catheter Time of Insertion: 04:35 Date Urinary Catheter Removed: 08/10/20 Time Urinary Catheter Discontinued: 09:56 Data : 08/12/20 03:12 08/12/20 03:12 A&P Assessment and plan (1) Acute kidney injury superimposed on CKD: - Ansari out, -Creatinine 4.4, baseline creatinine 4 -Renal ultrasound negative for hydronephrosis -Likely acute renal failure related to cardiorenal syndrome, renal hypoperfusion -UA does show eosinophils, eosinophil stain positive, ESR 80, but could be from Lasix, no new medications, rheumatologic titers pending, does take allopurinol which has been held -Status post dialysis catheter placement, dialysis Plan: -Consult nephrology -80 mg Lasix daily -Currently on hemodialysis, will receive today -We will need to arrange outpatient dialysis Plan for today, monitor respiratory status, monitor abdominal pain, HIDA scan ordered shows significantly decreased gallbladder ejection fraction, likely chronic cholecystitis, Dr. Dao consulted, currently on clear liquids, plan on surgery tomorrow morning Status: Acute (2) Non-ST elevated myocardial infarction (non-STEMI): -Has complaints of intermittent chest pain -EKG shows sinus rhythm with first-degree AV block -Baseline troponin 252, 6-hour troponin 200.3, negative delta 51.7, BNP 4360 -Has a history of CAD -Etiology likely related to at anasarca, fluid overload, CHF -However cannot rule out underlying cardiac etiology Plan: -Start aspirin 81 mg, atorvastatin 80 mg, metoprolol, Imdur -Plavix is on hold due to planned surgery -Cardiac echocardiogram ordered, pending -Monitor for chest pain, monitor telemetry -Cardiology on consult Status: Acute (3) Acute on chronic anemia: -Etiology likely multifactorial related to CKD, possible slow GI bleed, recurrent nosebleeds -Hemoglobin 7.9 Plan: -Status post 1 unit PRBC, monitor hemoglobin, monitor hemodynamics, monitor for bloody or black stools -Patient started on Plavix -Hemoccult stool pending -Protonix 40 twice daily, Carafate -Monitor for nosebleeds, currently none Status: Acute (4) Chronic kidney disease (CKD) stage G5/A1, glomerular filtration rate (GFR) less than or equal to 15 mL/min/1.73 square meter and albuminuria creatinine ratio less than 30 mg/g: Status: Acute (5) Hypothyroidism: Status: Acute (6) Diabetes 1.5, managed as type 2: Status: Chronic (7) Essential hypertension: Status: Chronic (8) KAITLYNN (obstructive sleep apnea): Status: Acute (9) Dyslipidemia: Status: Chronic (10) Congestive 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: -Chronically on 2 to 3 L nasal cannula Status: Acute (11) Right upper quadrant abdominal pain: -Leukocytosis 17.9 -Afebrile -Alk phos 156 -CRP 150 -Pro-Tejas 0.53 -Blood cultures so far unremarkable -Afebrile -Has right upper quadrant tenderness -Right upper quadrant ultrasound shows:Cholelithiasis with mild gallbladder wall thickening. No pericholecystic fluid. Gallbladder is contracted. Prominent common bile duct measuring 7.2 mm within normal limits. -CT scan of the abdomen pelvis shows: -Cholelithiasis. Gallbladder is contracted with wall thickening and suggestion of slight induration in the gallbladder fossa. This can be further evaluated with ultrasound. Recommend correlation with gallbladder function studies -HIDA scan shows: No evidence of acute cholecystitis or bowel obstruction, gallbladder ejection fraction was markedly decreased and nondetectable -I spoke to Dr. Dao, likely represents chronic cholecystitis Plan: -Continue Zosyn -Monitor for abdominal pain, serial abdominal exams -Follow blood cultures -Plavix is on hold -N.p.o. midnight, for surgery tomorrow morning Status: Acute Additional A&P Information 70 year old male with past medical history of coronary artery disease, stents, last one in 2012, hypertension, chronic kidney disease stage IV-V, diabetes, diabetic neuropathy, recurrent nosebleeds, dyslipidemia, hypothyroidism, GERD, CVA, severe peripheral vascular disease who is presenting with chest pain. Patient has non-ST elevation [place], acute on chronic kidney failure, worsened anemia probably due to persistent nosebleeds. Bilateral gaming pain, calf pain, ultrasound negative for DVT Leukocytosis 17,000, afebrile, chest x-ray no pneumonia, possible UTI, CRP 141, pro-Tejas 0.5, no abdominal complaints, but will order CT scan of the abdomen pelvis, follow urine cultures and blood cultures, stool cultures CODE STATUS. The patient wants to be full code. The plan of care was discussed with the patient. 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
[2020-08-12 16:36] LABS: Glucose Point of Care 212 mg/dL (70-110)
[2020-08-12] MEDS: ondansetron 2 mg/ML SDV 2 mL 4 MG IVP ×2 (17:57→21:33)
--- NOTE | 2020-08-12 19:01 | P.PN_ITS ---
Subjective Subjective: Interval history: I am seeing him in follow up for his renal failure. No nausea or vomiting. No shortness of breath Medications: Reviewed: Yes Vitals/I&O/Wt Last Vital Signs Temp 97.6 F 08/12/20 15:00 Pulse 52 L 08/12/20 15:00 Resp 16 08/12/20 15:00 BP 153/63 08/12/20 15:00 Pulse Ox 98 08/12/20 15:00 08/12/20 08/12/20 08/12/20 06:59 14:59 22:59 Intake Total 50 / 50 120 / 170 Balance 50 / 50 120 / 170 Weight last 48 hrs Weight 102.557 kg Weight 101.287 kg Physical Exam Const: COMMON NORMALS: no acute distress, patient oriented x3 and alert GENERAL APPEARANCE: cooperative ORIENTATION/CONSCIOUSNESS: Yes awake Neuro: COMMON NORMALS: patient oriented x3 SENSORIUM/ORIENTATION: Yes alert Urinary Catheter Management^: Ansari: Cath Placed During This Visit: yes, but has since been removed by the nurse Reason for Continuing Indwelling Catheter: Accurate Measurement of Urinary Output in Critically Ill Patients Urinary Catheter Date of Insertion: 08/08/20 Urinary Catheter Time of Insertion: 04:35 Date Urinary Catheter Removed: 08/10/20 Time Urinary Catheter Discontinued: 09:56 Data : 08/12/20 03:12 08/12/20 03:12 A&P Assessment and plan (1) Acute kidney injury superimposed on CKD: No indication for dialysis today, will monitor kidney function closely Status: Acute (2) Essential hypertension: BP under control Status: Chronic (3) Anemia: Follow hb Status: Acute Attestations Medical Necessity Statement*: IVAN Coding Level of Care Code Acute 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
--- NOTE | 2020-08-12 19:54 | P.CONIM_ITS ---
Providers/Reason For Consult Consulting Physican/Specialty*: Tremaine Hopkins MD Reason for Consult*: Abdominal pain Attending Physician: Tremaine Hopkins MD Primary Care Provider: LEÓN SEGOVIA MD History of Present Illness History of Present Illness Eliazar Hogan is a 70 year old male who had acute kidney injury superimposed on CKD requiring dialysis. I had placed his hemodialysis catheter on 08/09/2020. Patient states that over the last couple of days he has been having worsening right upper quadrant/chest pain associated nausea especially after eating. He complains of loss of appetite. Denies any vomiting. No fevers or chills. He had initial cardiac work-up and is currently on aspirin and Plavix. Since cardiac work-up was negative and he was mildly tender in the upper abdomen and ultrasound was obtained which showed cholelithiasis with gallbladder wall thickening. A subsequent HIDA scan showed nonemptying of gallbladder today. He is he said he never had such a problem previously and it all started over the last couple of days Review of Systems General: Reports: 10 or more systems reviewed and unremarkable except in HPI and below Meds/Allergies Home Medications and Allergies Home Medications Medication Instructions Recorded Confirmed Last Taken Type acetaminophen 500 mg tablet 1,000 mg PO Q6H PRN 05/05/19 08/08/20 01/24/20 History escitalopram oxalate 10 mg tablet 10 mg PO DAILY@05 tab 05/05/19 08/08/20 08/08/20 History hydralazine 100 mg tablet 100 mg PO TID 05/05/19 08/08/20 02/02/20 History isosorbide mononitrate 60 mg 60 mg PO DAILY@05 05/05/19 08/08/20 02/02/20 History tablet,extended release 24 hr levothyroxine 25 mcg capsule 25 mcg PO DAILY@05 cap 05/05/19 08/08/20 02/02/20 History nitroglycerin 0.4 mg sublingual 0.4 mg SUBLINGUAL Q5M PRN 05/05/19 08/08/20 Unknown History tablet pantoprazole 40 mg tablet,delayed 40 mg PO DAILY@0500 05/05/19 08/08/20 02/02/20 History release pravastatin 40 mg tablet 40 mg PO DAILY@1800 tab 05/05/19 08/08/20 02/02/20 History terazosin 10 mg capsule 10 mg PO BID@05,18 cap 05/05/19 08/08/20 02/02/20 History allopurinol 300 mg tablet 300 mg PO DAILY@1800 tab 05/06/19 08/08/20 02/02/20 History metoprolol tartrate 75 mg tablet 75 mg PO BID #180 tab 03/23/20 08/08/20 Unknown Rx calcitriol 0.5 mcg capsule 0.5 mcg PO .COMPLEX cap 04/24/20 08/08/20 Unknown History furosemide 80 mg PO BID PRN 04/24/20 08/08/20 Unknown History insulin detemir U-100 100 unit/mL See Rx Instructions .ROUTE 04/24/20 08/08/20 Unknown History (3 mL) subcutaneous pen .COMPLEX ml amlodipine 5 mg PO DAILY@08/08/20 08/08/20 Unknown History Allergies Allergy/AdvReac Type Severity Reaction Status Date / Time chicken derived Allergy Unknown Unknown Verified 07/26/20 14:22 Current Medications Current Medications Generic Name Dose Route Start Last Admin Trade Name Freq PRN Reason Stop Dose Admin Acetaminophen 650 mg 08/08/20 03:57 08/10/20 06:28 Acetaminophen 325 Mg Tablet PO 650 mg Q6H PRN Administration MILD PAIN Aspirin 81 mg 08/08/20 13:15 08/12/20 08:36 Aspirin 81 Mg Ec Tablet PO 81 mg DAILY SAYRA Administration Atorvastatin Calcium 80 mg 08/08/20 09:00 08/12/20 08:37 Atorvastatin 40 Mg Tablet PO 80 mg DAILY SAYRA Administration Clopidogrel Bisulfate 75 mg 08/11/20 11:50 08/12/20 08:37 Clopidogrel 75 Mg Tablet PO 75 mg DAILY SAYRA Administration Furosemide 80 mg 08/11/20 10:35 08/12/20 08:36 Furosemide 40 Mg Tablet PO 80 mg DAILY@0800 SAYRA Administration Piperacillin Sod/Tazobactam 50 mls @ 12.5 mls/hr 08/11/20 17:00 08/12/20 16:26 Sod 3.375 gm/ Sodium Chloride IV 12.5 mls/hr Q12H SAYRA Administration Protocol Insulin Aspart 0 unit 08/08/20 08:00 08/12/20 17:57 Insulin Aspart 100 Unit/1 Ml SUBCUT 6 unit WM&BEDTIME S[facility]RA Administration Protocol Isosorbide Mononitrate 60 mg 08/08/20 06:00 08/12/20 05:59 Isosorbide Mononitrate Er 60 Mg Tablet PO 60 mg QAM [facility]RA Administration Levothyroxine Sodium 25 mcg 08/08/20 09:00 08/12/20 08:37 Levothyroxine 25 Mcg Tablet PO 25 mcg DAILY [facility] Administration Lisinopril 5 mg 08/10/20 09:00 08/12/20 08:37 Lisinopril 5 Mg Tablet PO 5 mg DAILY [facility]RA Administration Metoprolol Tartrate 75 mg 08/08/20 09:00 08/12/20 17:57 Metoprolol Tartrate 50 Mg Tablet PO 75 mg BID [facility]RA Administration Multivitamins 1 each 08/09/20 09:00 08/12/20 08:37 [id number] C Tablet PO 1 each DAILY [facility]RA Administration Ondansetron HCl 4 mg 08/08/20 03:57 08/12/20 17:57 Ondansetron 2 Mg/Ml Sdv 2 Ml IVP 4 mg Q6H PRN Administration NAUSEA AND VOMITING Pantoprazole Sodium 40 mg 08/08/20 13:30 08/12/20 14:34 Pantoprazole 40 Mg Sdv IVP 40 mg Q12H [facility]RA Administration Polyethylene Glycol 17 gm 08/12/20 09:00 08/12/20 09:37 Polyethylene Glycol 3350 Pkt 17 Gm PO Not Given DAILY [facility]RA Sevelamer Carbonate 1,600 mg 08/09/20 09:00 08/12/20 16:24 Sevelamer 800 Mg Tablet PO 1,600 mg TID [facility] Administration Sucralfate 1 gm 08/08/20 17:00 08/12/20 17:05 Sucralfate 1 Gm Tablet PO 1 gm AC&BEDTIME [facility] Administration Terazosin HCl 10 mg 08/08/20 09:00 08/12/20 17:56 Terazosin 5 Mg Capsule PO 10 mg BID [facility]RA Administration PFSH Acute PFSH: Medical History Acute kidney injury superimposed on CKD Anemia ASHD (arteriosclerotic heart disease) Carotid stenosis, bilateral Chronic back pain Chronic kidney disease (CKD) Congestive 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 CVA (cerebral vascular accident) Diabetes 1.5, managed as type 2 Dyslipidemia Essential hypertension History of 2019 novel coronavirus disease (COVID-19) Hypothyroidism Myocardial infarction KAITLYNN (obstructive sleep apnea) Surgical History Previous back surgery S/P angioplasty with stent S/P cataract extraction S/P hemodialysis catheter insertion Family History Mother CAD (coronary artery disease) Stroke Sister Hypertension Social History Smoking and tobacco status: former smoker Alcohol intake: never Household members: spouse Marital status: service: Yes branch: [employer] Current occupational status: employed Current occupation: [employer] History of recent travel: No Current gender identity: Male Vitals/I&O/Wt Last Vital Signs Temp 98.1 F 08/12/20 19:06 Pulse 63 08/12/20 19:06 Resp 16 08/12/20 19:06 BP 170/91 08/12/20 19:06 Pulse Ox 98 08/12/20 19:06 08/12/20 08/12/20 08/12/20 06:59 14:59 22:59 Intake Total 50 / 170 120 / 170 Balance 50 / 170 120 / 170 Weight last 48 hrs Weight 226 lb 1.6 oz Weight 223 lb 4.8 oz Physical Exam Narrative: EXAM NARRATIVE: HEENT: Normocephalic Eye: Sclera /conjunctiva normal Respiratory and chest: Bilateral clear breath sounds on auscultation Cardiovascular: Normal S1 and S2 heart sounds Abdomen: Soft to palpation, tender to palpation right upper quadrant with voluntary guarding, Kim sign positive Neurological: Oriented to place person and time Skin: Intact, no lesions appreciated on gross exam Urinary Catheter Management^: Ansari: Cath Placed During This Visit: yes, but has since been removed by the nurse Reason for Continuing Indwelling Catheter: Accurate Measurement of Urinary Output in Critically Ill Patients Urinary Catheter Date of Insertion: 08/08/20 Urinary Catheter Time of Insertion: 04:35 Date Urinary Catheter Removed: 08/10/20 Time Urinary Catheter Discontinued: 09:56 A&P Assessment and plan (1) Biliary dyskinesia: 70-year-old male with multiple comorbidities including IVAN with CKD on dialysis who developed right upper quadrant pain and nausea mainly postprandial over the last couple of days. HIDA scan showed biliary dyskinesia. Plan for laparoscopic possible open cholecystectomy tomorrow Procedure, risks, benefits and alternatives have been discussed with the patient who wishes to proceed with surgery. 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
[2020-08-12 20:22] LABS: Glucose Point of Care 190 mg/dL (70-110)
--- NOTE | 2020-08-12 20:56 | PC.NURSE ---
Patient complains of nausea at times, but otherwise has no complaints. Will monitor.
--- NOTE | 2020-08-12 21:24 | PC.NURSE ---
Patient states that he feels like he is going to throw up. It is not time for PRN Zofran. Received order from Dr. Ennis to change zofran from q6h to q4h PRN.
--- NOTE | 2020-08-12 21:28 | PC.NURSE ---
Patient is refusing SCDs.
[2020-08-13] VITALS (23 sets, daily range): BP systolic 132–181; BP diastolic 58–80; PULSE 56–79; RESP 15–26; TEMP 36.4–37.2; O2SAT 92–99
--- NOTE | 2020-08-13 01:08 | PC.NURSE ---
Patient is currently resting with eyes closed. Will monitor.
[2020-08-13] MEDS: isosorbide mononitrate ER 60 mg Tablet PO (04:57)
[2020-08-13] MEDS: piperacillin-tazobactam 3.375 GM in sodium chloride 0.9% (plus) 50 ML IV ×2 (04:58→17:32)
[2020-08-13 06:20] LABS: Basophils # 0.1 10^3/uL (0.0-0.1); Basophils % 0.6 %; Eosinophils # 0.6 10^3/uL (0.0-0.8); Eosinophils % 3.8 %; Hematocrit 26.4 % (42.0-52.0); Hemoglobin 7.9 g/dL (11.7-16.6); Lymphocytes # 0.7 10^3/uL (0.8-4.8); Lymphocytes % 4.5 %; Mean Corpuscular HGB Conc 29.9 g/dL (30.0-36.0); Mean Corpuscular Hemoglobin 27.2 pg (28.0-34.0); Mean Platelet Volume 10.6 fL (7.4-10.4); Monocytes # 0.9 10^3/uL (0.2-0.9); Monocytes % 6.1 %; Neutrophils # 12.77 10^3/uL (1.8-7.7); Neutrophils % 84.1 %; Nucleated Red Blood Cells % 0.3 %; Platelet Count 177 10^3/cmm (130-400); Red Cell Distribution Width 17.2 % (12.1-15.1); White Blood Count 15.2 10^3/uL (4.0-10.0)
[2020-08-13 06:41] LABS: Glucose Point of Care 114 mg/dL (70-110)
[2020-08-13 06:55] LABS: Procalcitonin 0.42 ng/mL (0-0.5)
[2020-08-13 07:08] LABS: Alanine Aminotransferase < 5 U/L (0-41); Alkaline Phosphatase 159 IU/L (40-130); Anion Gap 19.5 (5-19); Aspartate Amino Transferase 8 U/L (0-40); Blood Urea Nitrogen 58 mg/dL (8-23); C Reactive Protein 104.2 mg/L (0.0-4.9); Calcium 8.2 mg/dL (8.5-10.5); Carbon Dioxide 23 mmol/L (22-29); Chloride 98 mmol/L (98-107); Globulin 3.5 g/dL (1.3-4.6); Glomerular Filtration Rate 10.8 mL/min (90-130); Glucose 102 mg/dL (65-115); Magnesium 2.2 mg/dL (1.7-2.3); Osmolality Calculated 300 mOsm/kg (285-295); Phosphorus 4.4 mg/dL (2.5-4.5); Potassium 3.5 mmol/L (3.5-5.1); Sodium 137 mmol/L (136-145); Total Bilirubin 0.4 mg/dL (0.15-1.2); Total Protein 6.5 g/dL (6.6-8.7)
--- NOTE | 2020-08-13 08:28 | PC.NURSE ---
Patient taken to OR on carrier.
--- NOTE | 2020-08-13 08:35 | DCPLANNER ---
Pg 2 of IM updated and reviewed with pt. No questions, copy provided.
[2020-08-13] MEDS: sodium chloride 0.9% 1,000 ML 30 ML IV (09:00)
--- NOTE | 2020-08-13 09:01 | PC.OT ---
OT tx attempted. Pt is off the floor for surgery. OT services to hold today. Will attempt resumption tomorrow pending pt status.
--- NOTE | 2020-08-13 09:01 | PM.PN ---
Subjective Subjective: Interval history: No issues overnight, still has some right upper quadrant pain, no nausea or vomiting Medications: Reviewed: Yes Vitals/I&O/Wt Last Vital Signs Temp 98.6 F 08/13/20 08:36 Pulse 61 08/13/20 08:36 Resp 18 08/13/20 08:36 BP 166/72 08/13/20 08:36 Pulse Ox 97 08/13/20 08:36 08/12/20 08/13/20 08/13/20 22:59 06:59 14:59 Intake Total 170 / 420 200 / 420 Output Total 200 / 300 100 / 300 Balance -30 / 120 100 / 120 Weight last 48 hrs Weight 220 lb 8 oz Weight 226 lb 1.6 oz Physical Exam Narrative: EXAM NARRATIVE: Abdomen: Soft Urinary Catheter Management^: Ansari: Cath Placed During This Visit: yes, but has since been removed by the nurse Reason for Continuing Indwelling Catheter: Accurate Measurement of Urinary Output in Critically Ill Patients Urinary Catheter Date of Insertion: 08/08/20 Urinary Catheter Time of Insertion: 04:35 Date Urinary Catheter Removed: 08/10/20 Time Urinary Catheter Discontinued: 09:56 Data : 08/13/20 04:43 08/13/20 04:43 A&P Assessment and plan (1) Biliary dyskinesia: 70-year-old male with multiple comorbidities including IVAN with CKD on dialysis who developed right upper quadrant pain and nausea mainly postprandial over the last couple of days. HIDA scan showed biliary dyskinesia, WBC is down to 15.2 Plan for laparoscopic possible open cholecystectomy today Procedure, risks, benefits and alternatives have been discussed with the patient who wishes to proceed with surgery. 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
--- NOTE | 2020-08-13 09:02 | P.ANESASSM_ITS ---
Pre-Anesthetic Assessment Pre-Anesthetic Assessment: Height/Weight: Height 1.73 m Weight 100.017 kg Temp Pulse Resp BP Pulse Ox 98.6 F 61 18 166/72 97 08/13/20 08:36 08/13/20 08:36 08/13/20 08:36 08/13/20 08:36 08/13/20 08:36 Preop Diagnosis: Biliary dyskinesia Proposed Procedure: Operation Date: 08/09/20 13:55 Proposed Procedures p Dialysis Catheter Insertion(Not Applicable) - Christiano Dao MD Operation Date: 08/13/20 09:30 Proposed Procedures p Laparoscopic Cholecystectomy, possible open(Not Applicable) - Christiano Dao MD Was Beta Norma taken within 24 hours: Yes Was Clonidine taken within 24 hours: N/A Social: Social History: Tobacco and No alcohol Exam: Pre-Anes Outpt Exam: alert, oriented x 3, clear to auscultation bilaterally and regular rate & rhythm Airway: Submandibular: WNL Cervical ROM: WNL MP: 2 Dentition: False Pulmonary: Pulmonary: COPD and Sleep apnea CV/HEM: CV/HEM: Anemia, CAD, HTN, UT (This admit) and PVD : : Chronic renal Insufficiency Comments: Acute on chronic renal failure GI: GI: GERD Metabolic: Metabolic: DM, Morbid obesity and Thyroid Musc/skel: Musc/skel: Lower Back Pain Anesthetic Plan: ASA status: 3 Anesthesia: General Meds/Allergies Current Medications: Current Medications Generic Name Dose Route Start Last Admin Trade Name Freq PRN Reason Stop Dose Admin Acetaminophen 650 mg 08/08/20 03:57 08/10/20 06:28 Acetaminophen 32 5 Mg Tablet PO 650 mg Q6H PRN Administration MILD PAIN Aspirin 81 mg 08/08/20 13:15 08/12/20 08:36 Aspirin 81 Mg Ec Tablet PO 81 mg DAILY SAYRA Administration Atorvastatin Calci um 80 mg 08/08/20 09:00 08/12/20 08:37 Atorvastatin 40 Mg Tablet PO 80 mg DAILY SAYRA Administration Clopidogrel Bisulf ate 75 mg 08/11/20 11:50 08/12/20 08:37 Clopidogrel 75 M g Tablet PO 75 mg DAILY SAYRA Administration Furosemide 80 mg 08/11/20 10:35 08/13/20 08:27 Furosemide 40 Mg Tablet PO Not Given DAILY@0800 SAYRA Piperacillin Sod/T azobactam 50 mls @ 12.5 mls /hr 08/11/20 17:00 08/13/20 04:58 Sod 3.375 gm/ So dium Chloride IV 12.5 mls/hr Q12H SAYRA Administration Protocol Insulin Aspart 0 unit 08/08/20 08:00 08/13/20 07:23 Insulin Aspart 1 00 Unit/1 Ml SUBCUT Not Given WM&BEDTIME SAYRA Protocol Isosorbide Mononit rate 60 mg 08/08/20 06:00 08/13/20 04:57 Isosorbide [place] itrate Er 60 Mg Ta blet PO 60 mg QAM SAYRA Administration Levothyroxine Sodi um 25 mcg 08/08/20 09:00 08/12/20 08:37 Levothyroxine 25 Mcg Tablet PO 25 mcg DAILY SAYRA Administration Lisinopril 5 mg 08/10/20 09:00 08/12/20 08:37 Lisinopril 5 Mg Tablet PO 5 mg DAILY SAYRA Administration Metoprolol Tartrat e 75 mg 08/08/20 09:00 08/12/20 17:57 Metoprolol Tartr ate 50 Mg Tablet PO 75 mg BID SAYRA Administration Multivitamins 1 each 08/09/20 09:00 08/12/20 08:37 B-Gagonwg-Hgggxe n C Tablet PO 1 each DAILY SAYRA Administration Ondansetron HCl 4 mg 08/12/20 21:24 08/12/20 21:33 Ondansetron 2 Mg /Ml Sdv 2 Ml IVP 4 mg Q4H PRN Administration NAUSEA AND VOMITI NG Pantoprazole Sodiu m 40 mg 08/08/20 13:30 08/12/20 21:33 Pantoprazole 40 Mg Sdv IVP 40 mg Q12H SAYRA Administration Polyethylene Glyco l 17 gm 08/12/20 09:00 08/12/20 09:37 Polyethylene Gly col 3350 Pkt 17 Gm PO Not Given DAILY SAYRA Sevelamer Carbonat e 1,600 mg 08/09/20 09:00 08/12/20 20:34 Sevelamer 800 Mg Tablet PO 1,600 mg TID SAYRA Administration Sucralfate 1 gm 08/08/20 17:00 08/13/20 08:27 Sucralfate 1 Gm Tablet PO Not Given AC&BEDTIME SAYRA Terazosin HCl 10 mg 08/08/20 09:00 08/12/20 17:56 Terazosin 5 Mg C apsule PO 10 mg BID SAYRA Administration PFSH Anesthesia PFSH: Medical History Acute kidney injury superimposed on CKD Anemia ASHD (arteriosclerotic heart disease) Carotid stenosis, bilateral Chronic back pain Chronic kidney disease (CKD) Congestive 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 CVA (cerebral vascular accident) Diabetes 1.5, managed as type 2 Dyslipidemia Essential hypertension History of 2019 novel coronavirus disease (COVID-19) Hypothyroidism Myocardial infarction KAITLYNN (obstructive sleep apnea) Surgical History Previous back surgery S/P angioplasty with stent S/P cataract extraction S/P hemodialysis catheter insertion Family History Mother CAD (coronary artery disease) Stroke Sister Hypertension Social History Smoking and tobacco status: former smoker Alcohol intake: never Household members: spouse Marital status: service: Yes branch: [employer] Current occupational status: employed Current occupation: [employer] History of recent travel: No Current gender identity: Male Data Anesthesia CBC & Chem 7: 08/13/20 04:43 08/13/20 04:43 Other Labs: Laboratory Results - last 48 hr 08/10/20 08/10/20 08/11/20 04:37 04:37 16:27 WBC RBC Hgb Hct MCV MCH MCHC RDW Plt Count MPV Neut % (Auto) Lymph % (Auto) [place] % (Auto) Eos % (Auto) Baso % (Auto) Neut # (Auto) Lymph # (Auto) [place] # (Auto) Eos # (Auto) Baso # (Auto) Nucleated RBC % (auto) Nucleated RBCs # Sodium Potassium Chloride Carbon Dioxide Anion Gap BUN Creatinine GFR Calculation Glucose POC Glucose 152 H Calculated Osmolality Calcium Phosphorus Magnesium Total Bilirubin GGT AST ALT Alkaline Phosphatase C-Reactive Protein Total Protein Albumin Globulin Procalcitonin KALIE IFA Animal Tis Res Negative BEBETO-1 Antibody <1.0 neg SS-A Antibody <1.0 neg SS-B Antibody <1.0 neg Sm (Yip) Antibody <1.0 neg SORTING GRAPPLE OPERATOR Antibody <1.0 neg Scl-70 Antibody <1.0 neg Anti-ds DNA IgG Ab <1 Centromere B Antibody <1.0 neg Complement C3c 115 Complement C4c 33 08/11/20 08/12/20 08/12/20 20:27 02:46 03:12 WBC 17.6 H RBC 2.82 L Hgb 7.9 L Hct 24.9 L MCV 88.3 MCH 28.0 MCHC 31.7 RDW 17.4 H Plt Count 185 MPV 11.5 H Neut % (Auto) 86.3 Lymph % (Auto) 3.4 Hudson % (Auto) 6.3 Eos % (Auto) 2.8 Baso % (Auto) 0.3 Neut # (Auto) 15.19 H Lymph # (Auto) 0.6 L Hudson # (Auto) 1.1 H Eos # (Auto) 0.5 Baso # (Auto) 0.1 Nucleated RBC % (auto) 0 Nucleated RBCs # 0.0 Sodium Potassium Chloride Carbon Dioxide Anion Gap BUN Creatinine GFR Calculation Glucose POC Glucose 189 H 165 H Calculated Osmolality Calcium Phosphorus Magnesium Total Bilirubin GGT AST ALT Alkaline Phosphatase C-Reactive Protein Total Protein Albumin Globulin Procalcitonin KALIE IFA Animal Tis Res BEBETO-1 Antibody SS-A Antibody SS-B Antibody Sm (Yip) Antibody SORTING GRAPPLE OPERATOR Antibody Scl-70 Antibody Anti-ds DNA IgG Ab Centromere B Antibody Complement C3c Complement C4c 08/12/20 08/12/20 08/12/20 03:12 05:21 06:32 WBC RBC Hgb Hct MCV MCH MCHC RDW Plt Count MPV Neut % (Auto) Lymph % (Auto) Hudson % (Auto) Eos % (Auto) Baso % (Auto) Neut # (Auto) Lymph # (Auto) Hudson # (Auto) Eos # (Auto) Baso # (Auto) Nucleated RBC % (auto) Nucleated RBCs # Sodium 136 Potassium 3.3 L Chloride 97 L Carbon Dioxide 25 Anion Gap 17.3 BUN 47 H Creatinine 4.4 H GFR Calculation 13.4 L Glucose 136 H POC Glucose 135 H 133 H Calculated Osmolality 296 H Calcium 7.7 L Phosphorus 3.5 Magnesium 1.9 Total Bilirubin 0.3 GGT 36 AST 8 ALT < 5 Alkaline Phosphatase 156 H C-Reactive Protein 150.5 H Total Protein 6.0 L Albumin 3.0 L Globulin 3.0 Procalcitonin 0.53 H KALIE IFA Animal Tis Res BEBETO-1 Antibody SS-A Antibody SS-B Antibody Sm (Yip) Antibody SORTING GRAPPLE OPERATOR Antibody Scl-70 Antibody Anti-ds DNA IgG Ab Centromere B Antibody Complement C3c Complement C4c 08/12/20 08/12/20 08/13/20 16:32 20:18 04:43 WBC 15.2 H RBC 2.90 L Hgb 7.9 L Hct 26.4 L MCV 91.0 MCH 27.2 L MCHC 29.9 L RDW 17.2 H Plt Count 177 MPV 10.6 H Neut % (Auto) 84.1 Lymph % (Auto) 4.5 Hudson % (Auto) 6.1 Eos % (Auto) 3.8 Baso % (Auto) 0.6 Neut # (Auto) 12.77 H Lymph # (Auto) 0.7 L Hudson # (Auto) 0.9 Eos # (Auto) 0.6 Baso # (Auto) 0.1 Nucleated RBC % (auto) 0.3 Nucleated RBCs # 0.0 Sodium Potassium Chloride Carbon Dioxide Anion Gap BUN Creatinine GFR Calculation Glucose POC Glucose 212 H 190 H Calculated Osmolality Calcium Phosphorus Magnesium Total Bilirubin GGT AST ALT Alkaline Phosphatase C-Reactive Protein Total Protein Albumin Globulin Procalcitonin KALIE IFA Animal Tis Res BEBETO-1 Antibody SS-A Antibody SS-B Antibody Sm (Yip) Antibody SORTING GRAPPLE OPERATOR Antibody Scl-70 Antibody Anti-ds DNA IgG Ab Centromere B Antibody Complement C3c Complement C4c 08/13/20 08/13/20 04:43 06:33 WBC RBC Hgb Hct MCV MCH MCHC RDW Plt Count MPV Neut % (Auto) Lymph % (Auto) Hudson % (Auto) Eos % (Auto) Baso % (Auto) Neut # (Auto) Lymph # (Auto) Hudson # (Auto) Eos # (Auto) Baso # (Auto) Nucleated RBC % (auto) Nucleated RBCs # Sodium 137 Potassium 3.5 Chloride 98 Carbon Dioxide 23 Anion Gap 19.5 H BUN 58 H Creatinine 5.3 H GFR Calculation 10.8 L Glucose 102 POC Glucose 114 H Calculated Osmolality 300 H Calcium 8.2 L Phosphorus 4.4 Magnesium 2.2 Total Bilirubin 0.4 GGT AST 8 ALT < 5 Alkaline Phosphatase 159 H C-Reactive Protein 104.2 H Total Protein 6.5 L Albumin 3.0 L Globulin 3.5 Procalcitonin 0.42 KALIE IFA Animal Tis Res BEBETO-1 Antibody SS-A Antibody SS-B Antibody Sm (Yip) Antibody SORTING GRAPPLE OPERATOR Antibody Scl-70 Antibody Anti-ds DNA IgG Ab Centromere B Antibody Complement C3c Complement C4c Cardiac Studies: No Data to Display
--- NOTE | 2020-08-13 10:22 | PM.OP ---
Operative Report Date of procedure: August 13, 2020 Pre-op Diagnosis: Biliary dyskinesia Post-op diagnosis: same Procedure Done: Laparoscopic cholecystectomy Specimens removed/disposition: Gallbladder Surgeon: Christiano Dao Anesthesia: General Condition: stable Disposition: PACU Procedure: The patient was taken to the operating room and was intubated under general anesthesia. After the antibiotic had been administered, the abdomen was prepped and draped in a sterile manner. Using a #15 blade, a 1 centimeter infraumbilical curvilinear incision was made and using an open Breanna technique the peritoneal cavity was entered. A 10 millimeter port was placed and 15 millimeters of pneumoperitoneum was created. A 10 millimeter, 30 degrees scope was then introduced. Three 5 millimeter ports were placed in the epigastric, midclavicular and the anterior axillary line two fingerbreadths below the costal margin on the right side under the direct visualization. Ratcheted forceps were introduced into the lateral most port and was used to retract the fundus of the gallbladder cephalad and using forceps the infundibulum of the gallbladder was retracted laterally. Using L-hook cautery the peritoneum overlying the Calot's triangle was opened medially and laterally until the cystic duct and the cystic artery were skeletonized. Dissection was carried along the body of the gallbladder and after ensuring critical view of safety, 4 clips applied on the cystic duct and 3 clips applied on the cystic artery and cut leaving, 3 clips on the remaining portion of the duct and 2 clips on the remaining portion of the artery. The rest of the gallbladder was dissected off the liver using L-hook cautery. There was no bleeding or bile leaking noted from the gallbladder fossa and the clips appeared to be in place. An EndoCatch bag was introduced to remove the gallbladder. All the ports were removed under direct visualization and there was no bleeding noted from the port sites. The fascia of the umbilicus was closed using [id number] 0 Vicryl sutures and the subcutaneous tissue was approximated using 3-0 Vicryl sutures. The skin at all four ports were closed using 4-0 Monocryl and Dermabond. A total of 10 millimeters of 0.5% Marcaine was infiltrated around the port sites. The patient was stable throughout the procedure.
[2020-08-13 10:50] LABS: Glucose Point of Care 163 mg/dL (70-110)
--- NOTE | 2020-08-13 11:09 | ANE.PACU2 ---
Inpatient post-anesthesia follow up: Airway intact: Yes Vital signs: Temperature 97.6 F Pulse Rate [Monito r] 70 Pulse Rate 75 Respiratory Rate 18 Blood Pressure [Ri ght Arm] 123/50 Blood Pressure 155/66 Pulse Oximetry 96 Oxygen Delivery Me thod [Rate & Nasal Cannula Delivery Changed T o] Oxygen Delivery Me thod [ Nasal Cannula Current Rate & Del hair] Oxygen Delivery Me thod Nasal Cannula Oxygen Flow Rate [ Rate & 2 Delivery Changed T o] Oxygen Flow Rate [ Current Rate 2 & Delivery] Oxygen Flow Rate 3 Fraction of Inspir ed Oxygen Hydration adequate: Yes Nausea and vomiting: No Pain level: 2 Mental status: Baseline
--- NOTE | 2020-08-13 11:15 | PC.NURSE ---
Patient received back to to room 101 from pacu. Patient awake , alert, ox 3
[2020-08-13 11:27] LABS: Glucose Point of Care 169 mg/dL (70-110)
[2020-08-13] MEDS: ondansetron 2 mg/ML SDV 2 mL 4 MG IVP (11:49)
[2020-08-13] MEDS: HYDROcodone-acetaminophen 5-325 mg Tablet 1 TAB PO ×2 (11:49→17:32)
[2020-08-13] MEDS: sucralfate 1 gm Tablet PO ×3 (11:49→21:13)
--- NOTE | 2020-08-13 12:00 | PC.CHAP ---
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 [] Patient/Family/Request visit [] Outpatient visit [XX] Follow-up visit [] Physician referral [] Code/Alert [] Routine visit [] Staff referral [] Actively dying [] Patient sleeping [] Family support [] [] Out of room [] Palliative care [] [] Receiving care in room [] Pre-surgical visit [] Trauma [] Long length of stay [] ICU visit [XX] Other:Unable to see due to just returning from surgery Relational/Emotional Strength [] Patient feels connected with others/family/visitors/staff [] Distress [] Loneliness/isolation [] Abandonment Spirituality of Patient [] Person of Zulma [] Attends Yazdanism of their Zulma [] Believes in Prayer [] Reads Bible or Church materials [] There are Spiritual issues to be addressed Dessert Cup Machine Feeder Interventions [] Prayer [] Active listening [] Non-anxious presence [] Spiritual/emotional support [] Crisis/trauma care [] Spiritual counseling [] Bereavement support [] Provided bereavement packet [] Provided Bible/devotional materials [] Provided toy/stuffed animal, coloring book to patient or family member [] Provided Communion [] Anointing/[place] [] Salvation [] Completed spiritual assessment [] Other: Impact on Illness or Injury [] Angry [] Fearful [] Anxious [] Often cries [] Exhaustion [] Unable to work [] Unable to attend sikhism [] Unable to walk/stand [] Unable to read [] Unable to drive [] Unable to eat/drink [] Unable to sleep [] Unable to be with family [] Patient intubated [] Other: Summary Time spent with patient
--- NOTE | 2020-08-13 12:41 | PM.PN ---
Subjective Subjective: Interval history: Patient was seen postoperatively, he tells me that he is feeling a bit nauseous, has abdominal pain, he tells me that he might not be ready to go this afternoon, but he will see how he is doing, no chest pain, no shortness of breath, no fevers Medications: Medication Review Details: Current Medications Acetaminophen (Acetaminophen 325 Mg Tablet) 650 mg PO Q6H PRN PRN Reason: MILD PAIN Last Admin: 08/10/20 06:28 Dose: 650 mg Documented by: Hydrocodone Bitart/Acetaminophen (Hydrocodone-Acetaminophen 5-325 Mg Tablet) 1 tab PO Q4H PRN PRN Reason: MODERATE PAIN Last Admin: 08/09/20 19:37 Dose: 1 tab Documented by: Aspirin (Aspirin 81 Mg Ec Tablet) 81 mg PO DAILY [facility] Last Admin: 08/10/20 08:01 Dose: 81 mg Documented by: Atorvastatin Calcium (Atorvastatin 40 Mg Tablet) 80 mg PO DAILY [facility] Last Admin: 08/10/20 08:01 Dose: 80 mg Documented by: Dextrose (Dextrose 50% Syringe 50 Ml) 25 ml IVP ONCE PRN; Protocol PRN Reason: hypoglycemia protocol Dextrose (Dextrose 50% Syringe 50 Ml) 50 ml IVP PRN PRN; Protocol PRN Reason: hypoglycemia protocol Glucagon (Glucagon 1 Mg/Ml Inj 1 Ml) 1 mg IM ONCE PRN; Protocol PRN Reason: Adult Acute Hypoglycemia Prot. Hydralazine HCl (Hydralazine 50 Mg Tablet) 25 mg PO TID [facility] Last Admin: 08/10/20 08:01 Dose: 25 mg Documented by: Dextrose (D5w) 500 mls @ 100 mls/hr IV ONCE PRN; Protocol PRN Reason: Adult Acute Hypoglycemia Prot Furosemide 100 mg/ Sodium (Chloride) 50 mls @ 0 mls/hr IV .Q0M [facility]; Protocol Last Admin: 08/10/20 01:43 Dose: 10 mg/hr, 5 mls/hr Documented by: Insulin Aspart (Insulin Aspart 100 Unit/1 Ml) 0 unit SUBCUT WM&BEDTIME [facility]; Protocol Last Admin: 08/10/20 07:59 Dose: 4 unit Documented by: Isosorbide Mononitrate (Isosorbide Mononitrate Er 60 Mg Tablet) 60 mg PO QAM [facility] Last Admin: 08/10/20 05:58 Dose: 60 mg Documented by: Levothyroxine Sodium (Levothyroxine 25 Mcg Tablet) 25 mcg PO DAILY [facility] Last Admin: 08/10/20 08:01 Dose: 25 mcg Documented by: Metoprolol Tartrate (Metoprolol Tartrate 50 Mg Tablet) 75 mg PO BID [facility] Last Admin: 08/10/20 08:01 Dose: 75 mg Documented by: Morphine Sulfate (Morphine 4 Mg/Ml Sdv 1 Ml) 2 mg IVP Q4H PRN PRN Reason: SEVERE PAIN Last Admin: 08/09/20 06:17 Dose: 2 mg Documented by: Multivitamins (V-Vrykhxt-Ihusibp C Tablet) 1 each PO DAILY [facility] Last Admin: 08/10/20 08:04 Dose: 1 each Documented by: Nitroglycerin (Nitroglycerin 0.4 Mg Sublingual Tablet) 0.4 mg SUBLINGUAL Q5M PRN PRN Reason: Chest Pain Ondansetron HCl (Ondansetron 2 Mg/Ml Sdv 2 Ml) 4 mg IVP Q6H PRN PRN Reason: NAUSEA AND VOMITING Pantoprazole Sodium (Pantoprazole 40 Mg Sdv) 40 mg IVP Q12H [facility] Last Admin: 08/10/20 01:44 Dose: 40 mg Documented by: Sevelamer Carbonate (Sevelamer 800 Mg Tablet) 1,600 mg PO TID [facility] Last Admin: 08/10/20 08:00 Dose: 1,600 mg Documented by: Sucralfate (Sucralfate 1 Gm Tablet) 1 gm PO AC&BEDTIME [facility] Last Admin: 08/10/20 05:58 Dose: 1 gm Documented by: Terazosin HCl (Terazosin 5 Mg Capsule) 10 mg PO BID [facility] Last Admin: 08/10/20 08:01 Dose: 10 mg Documented by: Vitals/I&O/Wt Last Vital Signs Temp 97.6 F 08/13/20 10:45 Pulse 69 08/13/20 12:00 Resp 19 H 08/13/20 12:00 BP 145/68 08/13/20 12:00 Pulse Ox 95 08/13/20 12:00 08/12/20 08/13/20 08/13/20 22:59 06:59 14:59 Intake Total 170 / 220 200 / 420 620 / 620 Output Total 200 / 200 100 / 300 0 / 0 Balance - / 20 100 / 120 620 / 620 Weight last 48 hrs Weight 100.017 kg Weight 102.557 kg Physical Exam Const: COMMON NORMALS: no acute distress and patient oriented x3 HENMT: COMMON NORMALS: normocephalic HEAD & SCALP: normocephalic Neck/C-Spine: COMMON NORMALS: no JVD Chest: OTHER: Right dialysis catheter in place Resp: COMMON NORMALS: normal respiratory effort, No retractions, No use of accessory muscles and clear to auscultation bilaterally AUSCULTATION: clear to auscultation bilaterally Cardio: COMMON NORMALS: no JVD, regular rate, regular rhythm, S1 normal heart sound present and S2 normal heart sound present RATE: regular rate RHYTHM: regular rhythm HEART SOUNDS: S1 normal heart sound present and S2 normal heart sound present GI: COMMON NORMALS: Normal to inspection, nondistended, normoactive bowel sounds present and Soft to palpation PALPATION: Yes Soft to palpation and Yes Tenderness to palpation present (GI) OTHER: Surgical site looks clean and dry Extremity: COMMON NORMALS: capillary refill normal, no clubbing, cyanosis or edema, no calf tenderness and no pedal edema Neuro: COMMON NORMALS: patient oriented x3 Psych: COMMON NORMALS: mental status grossly normal Urinary Catheter Management^: Ansari: Cath Placed During This Visit: yes, but has since been removed by the nurse Reason for Continuing Indwelling Catheter: Accurate Measurement of Urinary Output in Critically Ill Patients Urinary Catheter Date of Insertion: 08/08/20 Urinary Catheter Time of Insertion: 04:35 Date Urinary Catheter Removed: 08/10/20 Time Urinary Catheter Discontinued: 09:56 Data : 08/13/20 04:43 08/13/20 04:43 A&P Assessment and plan (1) Acute kidney injury superimposed on CKD: - Ansari out, -Renal ultrasound negative for hydronephrosis -Likely acute renal failure related to cardiorenal syndrome, renal hypoperfusion -UA does show eosinophils, eosinophil stain positive, ESR 80, but could be from Lasix, no new medications, rheumatologic titers pending, does take allopurinol which has been held -Status post dialysis catheter placement, dialysis Plan: -Consult nephrology -80 mg Lasix daily -Hemodialysis has been set up as outpatient, will receive dialysis tomorrow inpatient versus outpatient depending if he stays -Dialysis has been set up Plan for today, monitor postop, hopefully discharge the next 2448 hrs. Status: Acute (2) Non-ST elevated myocardial infarction (non-STEMI): -Has complaints of intermittent chest pain -EKG shows sinus rhythm with first-degree AV block -Baseline troponin 252, 6-hour troponin 200.3, negative delta 51.7, BNP 4360 -Has a history of CAD -Etiology likely related to at anasarca, fluid overload, CHF -However cannot rule out underlying cardiac etiology Plan: -Start aspirin 81 mg, atorvastatin 80 mg, metoprolol, Imdur -Plavix is on hold due to planned surgery -Cardiac echocardiogram ordered, pending -Monitor for chest pain, monitor telemetry -Cardiology on consult Status: Acute (3) Acute on chronic anemia: -Etiology likely multifactorial related to CKD, possible slow GI bleed, recurrent nosebleeds -Hemoglobin 7.9 Plan: -Status post 1 unit PRBC, monitor hemoglobin, monitor hemodynamics, monitor for bloody or black stools -Plavix on hold -Hemoccult stool pending -Protonix 40 twice daily, Carafate -Monitor for nosebleeds, currently none Status: Acute (4) Chronic kidney disease (CKD) stage G5/A1, glomerular filtration rate (GFR) less than or equal to 15 mL/min/1.73 square meter and albuminuria creatinine ratio less than 30 mg/g: Status: Acute (5) Hypothyroidism: Status: Acute (6) Diabetes 1.5, managed as type 2: Status: Chronic (7) Essential hypertension: Status: Chronic (8) KAITLYNN (obstructive sleep apnea): Status: Acute (9) Dyslipidemia: Status: Chronic (10) Congestive 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: -Chronically on 2 to 3 L nasal cannula Status: Acute (11) Right upper quadrant abdominal pain: -Secondary to biliary dyskinesia -Leukocytosis 15.2 -Afebrile -Alk phos 156 -CRP 104 -Pro-Tejas 0.42 -Blood cultures so far unremarkable -Afebrile -Has right upper quadrant tenderness -Right upper quadrant ultrasound shows:Cholelithiasis with mild gallbladder wall thickening. No pericholecystic fluid. Gallbladder is contracted. Prominent common bile duct measuring 7.2 mm within normal limits. -CT scan of the abdomen pelvis shows: -Cholelithiasis. Gallbladder is contracted with wall thickening and suggestion of slight induration in the gallbladder fossa. This can be further evaluated with ultrasound. Recommend correlation with gallbladder function studies -HIDA scan shows: No evidence of acute cholecystitis or bowel obstruction, gallbladder ejection fraction was markedly decreased and nondetectable -Status post laparoscopic cholecystectomy for biliary dyskinesia Plan: -Continue Zosyn, stop on discharge -Monitor for abdominal pain, serial abdominal exams -Follow blood cultures -Plavix is on hold, can be resumed on Friday -Currently on clears Status: Acute Additional A&P Information 70 year old male with past medical history of coronary artery disease, stents, last one in 2012, hypertension, chronic kidney disease stage IV-V, diabetes, diabetic neuropathy, recurrent nosebleeds, dyslipidemia, hypothyroidism, GERD, CVA, severe peripheral vascular disease who is presenting with chest pain. Patient has non-ST elevation CO, acute on chronic kidney failure, worsened anemia probably due to persistent nosebleeds. Bilateral gaming pain, calf pain, ultrasound negative for DVT Group B strep UTI, on Zosyn CODE STATUS. The patient wants to be full code. The plan of care was discussed with the patient. 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
--- NOTE | 2020-08-13 13:40 | P.PN_ITS ---
Subjective Subjective: Interval history: S/p cholecystectomy doing fine. Blood pressure mildly elevated most likely pain response Medications: Reviewed: Yes Medication Review Details: Current Medications Acetaminophen (Acetaminophen 325 Mg Tablet) 650 mg PO Q6H PRN PRN Reason: MILD PAIN Last Admin: 08/10/20 06:28 Dose: 650 mg Documented by: Hydrocodone Bitart/Acetaminophen (Hydrocodone-Acetaminophen 5-325 Mg Tablet) 1 tab PO Q4H PRN PRN Reason: MODERATE PAIN Last Admin: 08/09/20 19:37 Dose: 1 tab Documented by: Aspirin (Aspirin 81 Mg Ec Tablet) 81 mg PO DAILY [facility] Last Admin: 08/10/20 08:01 Dose: 81 mg Documented by: Atorvastatin Calcium (Atorvastatin 40 Mg Tablet) 80 mg PO DAILY [facility] Last Admin: 08/10/20 08:01 Dose: 80 mg Documented by: Dextrose (Dextrose 50% Syringe 50 Ml) 25 ml IVP ONCE PRN; Protocol PRN Reason: hypoglycemia protocol Dextrose (Dextrose 50% Syringe 50 Ml) 50 ml IVP PRN PRN; Protocol PRN Reason: hypoglycemia protocol Glucagon (Glucagon 1 Mg/Ml Inj 1 Ml) 1 mg IM ONCE PRN; Protocol PRN Reason: Adult Acute Hypoglycemia Prot. Hydralazine HCl (Hydralazine 50 Mg Tablet) 25 mg PO TID [facility] Last Admin: 08/10/20 08:01 Dose: 25 mg Documented by: Dextrose (D5w) 500 mls @ 100 mls/hr IV ONCE PRN; Protocol PRN Reason: Adult Acute Hypoglycemia Prot Furosemide 100 mg/ Sodium (Chloride) 50 mls @ 0 mls/hr IV .Q0M [facility]; Protocol Last Admin: 08/10/20 01:43 Dose: 10 mg/hr, 5 mls/hr Documented by: Insulin Aspart (Insulin Aspart 100 Unit/1 Ml) 0 unit SUBCUT WM&BEDTIME [facility]; Protocol Last Admin: 08/10/20 07:59 Dose: 4 unit Documented by: Isosorbide Mononitrate (Isosorbide Mononitrate Er 60 Mg Tablet) 60 mg PO QAM [facility] Last Admin: 08/10/20 05:58 Dose: 60 mg Documented by: Levothyroxine Sodium (Levothyroxine 25 Mcg Tablet) 25 mcg PO DAILY [facility] Last Admin: 08/10/20 08:01 Dose: 25 mcg Documented by: Metoprolol Tartrate (Metoprolol Tartrate 50 Mg Tablet) 75 mg PO BID [facility] Last Admin: 08/10/20 08:01 Dose: 75 mg Documented by: Morphine Sulfate (Morphine 4 Mg/Ml Sdv 1 Ml) 2 mg IVP Q4H PRN PRN Reason: SEVERE PAIN Last Admin: 08/09/20 06:17 Dose: 2 mg Documented by: Multivitamins (O-Meskwid-Amrlpjb C Tablet) 1 each PO DAILY [facility] Last Admin: 08/10/20 08:04 Dose: 1 each Documented by: Nitroglycerin (Nitroglycerin 0.4 Mg Sublingual Tablet) 0.4 mg SUBLINGUAL Q5M PRN PRN Reason: Chest Pain Ondansetron HCl (Ondansetron 2 Mg/Ml Sdv 2 Ml) 4 mg IVP Q6H PRN PRN Reason: NAUSEA AND VOMITING Pantoprazole Sodium (Pantoprazole 40 Mg Sdv) 40 mg IVP Q12H [facility] Last Admin: 08/10/20 01:44 Dose: 40 mg Documented by: Sevelamer Carbonate (Sevelamer 800 Mg Tablet) 1,600 mg PO TID [facility] Last Admin: 08/10/20 08:00 Dose: 1,600 mg Documented by: Sucralfate (Sucralfate 1 Gm Tablet) 1 gm PO AC&BEDTIME [facility] Last Admin: 08/10/20 05:58 Dose: 1 gm Documented by: Terazosin HCl (Terazosin 5 Mg Capsule) 10 mg PO BID [facility] Last Admin: 08/10/20 08:01 Dose: 10 mg Documented by: Vitals/I&O/Wt Last Vital Signs Temp 97.6 F 08/13/20 10:45 Pulse 69 08/13/20 12:00 Resp 19 H 08/13/20 12:00 BP 145/68 08/13/20 12:00 Pulse Ox 95 08/13/20 12:00 08/12/20 08/13/20 08/13/20 22:59 06:59 14:59 Intake Total 170 / 220 200 / 420 620 / 620 Output Total 200 / 200 100 / 300 0 / 0 Balance -30 / 20 100 / 120 620 / 620 Weight last 48 hrs Weight 220 lb 8 oz Weight 226 lb 1.6 oz Physical Exam Narrative: EXAM NARRATIVE: GENERAL: Patient is alert, awake and oriented x3. NECK: No jugular vein distension. HEENT: No cyanosis. No icterus. No pallor. HEART: Regular S1 and S2. No murmur, rub or gallop. LUNGS: Basal crackles bilaterally. ABDOMEN: Soft, nontender and nondistended. Positive bowel sounds. No guarding, rebound or tenderness. CENTRAL NERVOUS SYSTEM: Grossly nonfocal. EXTREMITIES: Lower extremities without edema bilaterally. Urinary Catheter Management^: Ansari: Cath Placed During This Visit: yes, but has since been removed by the nurse Reason for Continuing Indwelling Catheter: Accurate Measurement of Urinary Output in Critically Ill Patients Urinary Catheter Date of Insertion: 08/08/20 Urinary Catheter Time of Insertion: 04:35 Date Urinary Catheter Removed: 08/10/20 Time Urinary Catheter Discontinued: 09:56 Data : 08/13/20 04:43 08/13/20 04:43 A&P Assessment and plan (1) Non-ST elevated myocardial infarction (non-STEMI): This is a very complicated patient with prior history of coronary artery disease presented with anemia history of recurrent nosebleed worsening of renal failure congestive heart failure. He is high risk for bleeding and primary PCI due to underlying comorbidities. I will ask for echocardiogram to assess LV function. We will for now optimize his medications. He is being diuresed with the help of nephrology. He may will be requiring dialysis at some point once started dialysis and stabilized anemia sunshine may consider left heart cath. For now continue aspirin statin beta-artem and P2 Y 12 inhibitor. Add isosorbide mononitrate. Remained stable doing fine from a cardiovascular perspective denies any chest pain continue to manage medically. No intention of taking the patient to the [facility] On today's visit patient denies any complaint continue current regimen will assess him as an outpatient once stable anemia sunshine we will reassess him for left heart cath. Stable from a cardiovascular perspective continue to manage medically continue statin aspirin Plavix beta-artem and isosorbide mononitrate. Patient is high risk for intervention due to risk of bleeding. Once stable anemia sunshine as an outpatient consider left heart cath if continues to have angina As above we will continue to treat him medically once complete bedrest from surgical point of view patient can be discharged home on medical management including beta-artem isosorbide mononitrate aspirin statin and delayed restart of Plavix when okay with surgeon. Follow-up with us in the clinic. Status: Acute (2) Congestive 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: Stays euvolemic continue dialysis Status: Acute (3) Essential hypertension: Well-controlled. Continue to monitor Status: Chronic (4) Acute kidney injury superimposed on CKD: As per nephrology. 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
[2020-08-13] MEDS: pantoprazole 40 mg SDV IVP (15:43)
[2020-08-13] MEDS: sevelamer 800 mg Tablet 1600 MG PO ×2 (15:44→21:13)
[2020-08-13 16:22] LABS: Glucose Point of Care 232 mg/dL (70-110)
--- NOTE | 2020-08-13 16:50 | P.PN_ITS ---
Subjective Subjective: Interval history: I am seeing him in follow up for his renal failure. No chest pain or shortness of breath. Talked to pt on the phone as telesteth & ipad not working Medications: Reviewed: Yes Vitals/I&O/Wt Last Vital Signs Temp 98.3 F 08/13/20 16:00 Pulse 69 08/13/20 16:00 Resp 19 H 08/13/20 16:00 BP 170/80 08/13/20 16:00 Pulse Ox 95 08/13/20 16:00 08/13/20 08/13/20 08/13/20 06:59 14:59 22:59 Intake Total 200 / 420 670 / 670 Output Total 100 / 300 0 / 0 Balance 100 / 120 670 / 670 Weight last 48 hrs Weight 100.017 kg Weight 102.557 kg Physical Exam Narrative: EXAM NARRATIVE: Exam could not be done as ipad/telesteth not working Urinary Catheter Management^: Ansari: Cath Placed During This Visit: yes, but has since been removed by the nurse Reason for Continuing Indwelling Catheter: Accurate Measurement of Urinary Output in Critically Ill Patients Urinary Catheter Date of Insertion: 08/08/20 Urinary Catheter Time of Insertion: 04:35 Date Urinary Catheter Removed: 08/10/20 Time Urinary Catheter Discontinued: 09:56 Data : 08/13/20 04:43 08/13/20 04:43 A&P Assessment and plan (1) Acute kidney injury superimposed on CKD: No indication for dialysis today, will plan on friday Status: Acute (2) Essential hypertension: Monitor BP closely Status: Chronic (3) Anemia: Follow hb Status: Acute Attestations Medical Necessity Statement*: Renal failure Coding Level of Care Code Acute [facility] Diagnoses Acute kidney injury superimposed on CKD N17.9; N18.9 Essential hypertension I10 Anemia D64.9
[2020-08-13] MEDS: heparin 5,000 unit/mL INJ 1 mL 5000 UNIT SUBCUT (17:30)
[2020-08-13] MEDS: metoprolol tartrate 50 mg Tablet 75 MG PO (17:30)
[2020-08-13] MEDS: terazosin 5 mg Capsule 10 MG PO (17:31)
[2020-08-13 21:40] LABS: Glucose Point of Care 284 mg/dL (70-110)
[2020-08-14] VITALS: BP 170/80; PULSE 58; RESP 13; TEMP 36.6; O2SAT 96
[2020-08-14] MEDS: pantoprazole 40 mg SDV IVP ×2 (02:18→13:14)
[2020-08-14 04:00] VITALS: BP 189/88; PULSE 63; RESP 15; TEMP 36.7; O2SAT 97
[2020-08-14 05:07] LABS: Alanine Aminotransferase < 5 U/L (0-41); Alkaline Phosphatase 150 IU/L (40-130); Anion Gap 22.9 (5-19); Aspartate Amino Transferase 9 U/L (0-40); Blood Urea Nitrogen 61 mg/dL (8-23); C Reactive Protein 88.3 mg/L (0.0-4.9); Calcium 8.4 mg/dL (8.5-10.5); Carbon Dioxide 21 mmol/L (22-29); Chloride 98 mmol/L (98-107); Globulin 3.5 g/dL (1.3-4.6); Glomerular Filtration Rate 9.9 mL/min (90-130); Glucose 149 mg/dL (65-115); Magnesium 2.4 mg/dL (1.7-2.3); Osmolality Calculated 306 mOsm/kg (285-295); Phosphorus 5.1 mg/dL (2.5-4.5); Potassium 3.9 mmol/L (3.5-5.1); Procalcitonin 0.36 ng/mL (0-0.5); Sodium 138 mmol/L (136-145); Total Bilirubin 0.4 mg/dL (0.15-1.2); Total Protein 6.5 g/dL (6.6-8.7)
[2020-08-14 05:26] LABS: Basophils % 0.2 %; Eosinophils % 0.1 %; Hematocrit 25.9 % (42.0-52.0); Hemoglobin 7.9 g/dL (11.7-16.6); Lymphocytes # 0.4 10^3/uL (0.8-4.8); Lymphocytes % 2.5 %; Mean Corpuscular HGB Conc 30.5 g/dL (30.0-36.0); Mean Corpuscular Hemoglobin 27.4 pg (28.0-34.0); Mean Corpuscular Volume 89.9 fL (80-94); Mean Platelet Volume 10.7 fL (7.4-10.4); Monocytes # 0.8 10^3/uL (0.2-0.9); Monocytes % 4.9 %; Neutrophils # 15.33 10^3/uL (1.8-7.7); Neutrophils % 91.6 %; Nucleated Red Blood Cells % 0.2 %; Platelet Count 205 10^3/cmm (130-400); Red Blood Count 2.88 10^6/uL (4.1-5.3); White Blood Count 16.7 10^3/uL (4.0-10.0)
[2020-08-14 06:00] VITALS: PULSE 58
[2020-08-14] MEDS: piperacillin-tazobactam 3.375 GM in sodium chloride 0.9% (plus) 50 ML IV (06:11)
[2020-08-14] MEDS: isosorbide mononitrate ER 60 mg Tablet PO (06:12)
[2020-08-14] MEDS: heparin 5,000 unit/mL INJ 1 mL 5000 UNIT SUBCUT (06:12)
[2020-08-14] MEDS: sucralfate 1 gm Tablet PO (06:12)
[2020-08-14 06:58] LABS: Glucose Point of Care 147 mg/dL (70-110)
[2020-08-14 08:00] VITALS: BP 175/95; PULSE 58; RESP 12; O2SAT 95
[2020-08-14 08:59] VITALS: PULSE 55; O2SAT 97
[2020-08-14] MEDS: FUROsemide 40 mg Tablet 80 MG PO (09:08)
[2020-08-14] MEDS: aspirin 81 mg EC Tablet PO (09:09)
[2020-08-14] MEDS: levothyroxine 25 mcg Tablet PO (09:09)
[2020-08-14] MEDS: terazosin 5 mg Capsule 10 MG PO (09:09)
[2020-08-14] MEDS: metoprolol tartrate 50 mg Tablet 75 MG PO (09:09)
[2020-08-14] MEDS: sevelamer 800 mg Tablet 1600 MG PO (09:09)
[2020-08-14] MEDS: b-complex-vitamin c Tablet 1 EACH PO (09:09)
[2020-08-14] MEDS: atorvastatin 40 mg Tablet 80 MG PO (09:09)
[2020-08-14] MEDS: lisinopril 5 mg Tablet PO (09:10)
--- NOTE | 2020-08-14 10:23 | PM.PN ---
Subjective Subjective: Interval history: He feels better today. Seen and examined on dialysis. No new issues. His Bps is high as dialysis is initiated and I will give him some clonidine No uremic Sx Abdomen feels comfortable Medications: Reviewed: Yes Medication Review Details: Current Medications Acetaminophen (Acetaminophen 325 Mg Tablet) 650 mg PO Q6H PRN PRN Reason: MILD PAIN Last Admin: 08/10/20 06:28 Dose: 650 mg Documented by: Hydrocodone Bitart/Acetaminophen (Hydrocodone-Acetaminophen 5-325 Mg Tablet) 1 tab PO Q4H PRN PRN Reason: MODERATE PAIN Last Admin: 08/09/20 19:37 Dose: 1 tab Documented by: Aspirin (Aspirin 81 Mg Ec Tablet) 81 mg PO DAILY [facility] Last Admin: 08/10/20 08:01 Dose: 81 mg Documented by: Atorvastatin Calcium (Atorvastatin 40 Mg Tablet) 80 mg PO DAILY [facility] Last Admin: 08/10/20 08:01 Dose: 80 mg Documented by: Dextrose (Dextrose 50% Syringe 50 Ml) 25 ml IVP ONCE PRN; Protocol PRN Reason: hypoglycemia protocol Dextrose (Dextrose 50% Syringe 50 Ml) 50 ml IVP PRN PRN; Protocol PRN Reason: hypoglycemia protocol Glucagon (Glucagon 1 Mg/Ml Inj 1 Ml) 1 mg IM ONCE PRN; Protocol PRN Reason: Adult Acute Hypoglycemia Prot. Hydralazine HCl (Hydralazine 50 Mg Tablet) 25 mg PO TID [facility] Last Admin: 08/10/20 08:01 Dose: 25 mg Documented by: Dextrose (D5w) 500 mls @ 100 mls/hr IV ONCE PRN; Protocol PRN Reason: Adult Acute Hypoglycemia Prot Furosemide 100 mg/ Sodium (Chloride) 50 mls @ 0 mls/hr IV .Q0M [facility]; Protocol Last Admin: 08/10/20 01:43 Dose: 10 mg/hr, 5 mls/hr Documented by: Insulin Aspart (Insulin Aspart 100 Unit/1 Ml) 0 unit SUBCUT WM&BEDTIME [facility]; Protocol Last Admin: 08/10/20 07:59 Dose: 4 unit Documented by: Isosorbide Mononitrate (Isosorbide Mononitrate Er 60 Mg Tablet) 60 mg PO QAM [facility] Last Admin: 08/10/20 05:58 Dose: 60 mg Documented by: Levothyroxine Sodium (Levothyroxine 25 Mcg Tablet) 25 mcg PO DAILY [facility] Last Admin: 08/10/20 08:01 Dose: 25 mcg Documented by: Metoprolol Tartrate (Metoprolol Tartrate 50 Mg Tablet) 75 mg PO BID [facility] Last Admin: 08/10/20 08:01 Dose: 75 mg Documented by: Morphine Sulfate (Morphine 4 Mg/Ml Sdv 1 Ml) 2 mg IVP Q4H PRN PRN Reason: SEVERE PAIN Last Admin: 08/09/20 06:17 Dose: 2 mg Documented by: Multivitamins (Y-Zibqdaf-Ueesdza C Tablet) 1 each PO DAILY [facility] Last Admin: 08/10/20 08:04 Dose: 1 each Documented by: Nitroglycerin (Nitroglycerin 0.4 Mg Sublingual Tablet) 0.4 mg SUBLINGUAL Q5M PRN PRN Reason: Chest Pain Ondansetron HCl (Ondansetron 2 Mg/Ml Sdv 2 Ml) 4 mg IVP Q6H PRN PRN Reason: NAUSEA AND VOMITING Pantoprazole Sodium (Pantoprazole 40 Mg Sdv) 40 mg IVP Q12H [facility] Last Admin: 08/10/20 01:44 Dose: 40 mg Documented by: Sevelamer Carbonate (Sevelamer 800 Mg Tablet) 1,600 mg PO TID [facility] Last Admin: 08/10/20 08:00 Dose: 1,600 mg Documented by: Sucralfate (Sucralfate 1 Gm Tablet) 1 gm PO AC&BEDTIME [facility] Last Admin: 08/10/20 05:58 Dose: 1 gm Documented by: Terazosin HCl (Terazosin 5 Mg Capsule) 10 mg PO BID [facility] Last Admin: 08/10/20 08:01 Dose: 10 mg Documented by: Vitals/I&O/Wt Last Vital Signs Temp 98.1 F 08/14/20 04:00 Pulse 55 L 08/14/20 08:59 Resp 12 08/14/20 08:00 BP 175/95 08/14/20 08:00 Pulse Ox 97 08/14/20 08:59 08/13/20 08/14/20 08/14/20 22:59 06:59 14:59 Intake Total 650 / 1320 240 / 1560 360 / 360 Output Total 500 / 500 550 / 1050 Balance 150 / 820 -310 / 510 360 / 360 Weight last 48 hrs Weight 99.79 kg Weight 100.017 kg Physical Exam Narrative: EXAM NARRATIVE: Constitutional: Awake, comfortable HEENT: Wet mucosa, no jvp, non icteric Lungs: Bilaterally clear without discernible wheeze, rales in all lung zones CVS: S1 S2, no murmurs Abdo: Soft, BS ok Ext 4: 2-3+ edema, peripheral perfusion with no cyanosis Neurological: Grossly non-focal Urinary Catheter Management^: Ansari: Cath Placed During This Visit: yes, but has since been removed by the nurse Reason for Continuing Indwelling Catheter: Accurate Measurement of Urinary Output in Critically Ill Patients Urinary Catheter Date of Insertion: 08/08/20 Urinary Catheter Time of Insertion: 04:35 Date Urinary Catheter Removed: 08/10/20 Time Urinary Catheter Discontinued: 09:56 Data : 08/14/20 02:42 08/14/20 02:42 A&P Additional A&P Information 1. Overt renal failure Seen and examined on dialysis Cont MWF schedule A.m. labs Strict ins and outs Dose medication for GFR less than 15 2. Chemistry Continue calcitriol. 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 Continue outpatient calcitriol. 3. Non-STEMI Defer evaluation to cardiology, likely to be secondary to heart strain from fluid overload, no plans for LHC at this time 4. Anemia Consistent with advanced kidney disease. Iron levels low but high Ferritin, preventing iron loading. S/p Procrit 10k iu x 1 08/11. 5. S/p Lap Celina POD 1 Recovering well in this regard 6. 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
--- NOTE | 2020-08-14 10:47 | PM.DCS ---
Discharge Providers Date of Admission: 08/08/20 03:26 Date of Discharge: August 14, 2020 Attending Provider at Admission: Matheus Ennis Attending Provider at Discharge: Zachary Garcia Primary Care Provider: LEÓN SEGOVIA MD Diagnoses at Discharge Discharge Diagnosis (1) Acute kidney injury superimposed on CKD: Status: Acute (2) Essential hypertension: Status: Chronic (3) Anemia: Status: Acute (4) Biliary dyskinesia: Status: Acute (5) Right upper quadrant abdominal pain: Status: Acute (6) Congestive 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: Status: Acute (7) Acute on chronic anemia: Status: Acute (8) Non-ST elevated myocardial infarction (non-STEMI): Status: Acute (9) Chronic kidney disease (CKD) stage G5/A1, glomerular filtration rate (GFR) less than or equal to 15 mL/min/1.73 square meter and albuminuria creatinine ratio less than 30 mg/g: Status: Acute (10) Dyslipidemia: Status: Chronic (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, managed as type 2: Status: Chronic Reason for Visit Reason for Visit: chest pain, arm tingle Hospital Course Hospital Course Pleasant 70-year-old gentleman with history of CAD, with history of stenting, chronic kidney disease stage IV-V, diabetes, HTN, diabetic neuropathy, recurrent nosebleeds, HLD, hypothyroidism, GERD, CVA, severe PAD, former smoker, was admitted for assessment management after presenting with chest pain, with NSTEMI with troponin elevation on presentation was treated with medical therapy, although initially holding Plavix, heparin drip due to concerns for acute anemia requiring 1 unit PBC transfusion, epistaxis prior to admission, although this had resolved. He was assessed by cardiology. On presentation with noted acute kidney injury ongoing kidney disease, as opposed to worsening chronic renal disease, noted oliguric, was assessed by nephrology. As risk of PCI due to multiple factors was considered too great, he was managed medically. Plavix were added, which he had tolerated. With likely progression to ESRD, access was obtained for hemodialysis. Tunneled catheter was placed on 08/09. Underwent hemodialysis. We will continue dialysis with [facility]. Is asked to continue follow-up with nephrology for reassessments and additional consideration of access. Hemoglobin remained stable after 1 unit PRBC. He was continued on Protonix, Carafate. Please reassess blood counts at the next visit. Hemoccult was ordered, but so far has not been collected. Please consider assessment on outpatient side. As tolerated aspirin, Plavix. Please consider referral to ENT in case of recurrence of nasal bleeds. During hospitalization also developed bothersome right upper quadrant tenderness. No cholecystitis noted on imaging, noted cholelithiasis, mild gallbladder wall thickening on ultrasound, prominent common bile duct 7.2 mm, biliary dyskinesia with akinetic gallbladder with markedly decreased and nondetectable ejection fraction. No evidence of acute cholecystitis. Empirically was maintained on Zosyn. Noted leukocytosis. Afebrile. Urine culture strep agalactiae. Blood cultures negative. Underwent laparoscopic cholecystectomy on 08/13. Leukocytosis persists. But otherwise he is doing well. Tolerating clear liquid diet. Minimal nausea, some residual abdominal discomfort. Passing some gas. He is asked to follow-up with surgery in office. Please note that his insulin requirement appears to have changed. Detemir dose decreased from his prior down to 5 units once daily at this time. Please reassess Beatties control at the next visit. Physical Exam Const: COMMON NORMALS: no acute distress and patient oriented x3 OTHER: Awake, alert, undergoing hemodialysis. Some right upper quadrant discomfort. No chest pain. No trouble breathing apart from taking very deep breaths which triggers pain. HENMT: COMMON NORMALS: oropharynx normal Neck/C-Spine: COMMON NORMALS: no JVD Chest: OTHER: R chest tunneled HD catheter Resp: COMMON NORMALS: normal respiratory effort and clear to auscultation bilaterally AUSCULTATION: clear to auscultation bilaterally Cardio: COMMON NORMALS: no JVD, regular rhythm, S1 normal heart sound present, S2 normal heart sound present and No murmurs present (Cardio) RHYTHM: regular rhythm HEART SOUNDS: S1 normal heart sound present and S2 normal heart sound present GI: COMMON NORMALS: Soft to palpation PALPATION: Yes Soft to palpation and Yes Tenderness to palpation present (GI) (mildly) Extremity: COMMON NORMALS: no joint enlargement GENERAL: Yes edema (trace) Neuro: COMMON NORMALS: patient oriented x3 and moves all extremities Skin: COMMON NORMALS: no rashes or lesions noted GENERAL SKIN EXAM: no rashes or lesions noted Urinary Catheter Management^: Ansari: Cath Placed During This Visit: yes, but has since been removed by the nurse Reason for Continuing Indwelling Catheter: Accurate Measurement of Urinary Output in Critically Ill Patients Urinary Catheter Date of Insertion: 08/08/20 Urinary Catheter Time of Insertion: 04:35 Date Urinary Catheter Removed: 08/10/20 Time Urinary Catheter Discontinued: 09:56 Discharge Data Data Completed and Pending: Completed Studies During Hospitalization Category Date Time Status CT abdomen pelvis wo con [id number] Rout ine Cat Scan 08/11/20 08:48 Completed XR chest 1V blake ble [id number] Routine Exams 08/10/20 08:03 Completed XR chest 1V blake ble [id number] Urgent Exams 08/08/20 01:47 Completed NM hepatobiliary wo phar [id number] Rout ine Nuc Med 08/12/20 10:00 [place] [id number] Routin e Ultrasound 08/09/20 08:19 Completed US abdomen limite d [id number] Stat Ultrasound 08/11/20 10:43 Completed US renal BI* [id number] Urgent Ultrasound 08/08/20 03:57 Completed Pending at discharge Category Date Time Status ES surgery / GI i mages Routine Exams 08/13/20 07:54 Ordered KALIE Profile Rheum atology Stat Lab 08/09/20 04:00 Results Anti-Neutrophil C ytoplasmic AB Rout ine Lab 08/10/20 04:37 Received Blood Culture Sta t Lab 08/10/20 08:38 Results Clostridioides Di fficile PCR Routin e Lab 08/11/20 08:48 Uncollected Immunochemical Fe joe OCB Routine Lab 08/08/20 13:16 Uncollected Sputum Culture an d Gram Stain Stat Lab 08/11/20 08:50 Uncollected Urine Culture Sta t Lab 08/11/20 08:50 Uncollected Vitamin D 1,25 Di hydroxy Routine Lab 08/09/20 04:00 Received Pathology: Surgic al [PTH] Routine Pth 08/13/20 10:08 Received CV echo complete* [id number] Stat Ultrasound 08/08/20 08:02 Taken Labs from last 24 hours 08/14/20 08/14/20 08/14/20 06:49 02:42 02:42 WBC 16.7 H RBC 2.88 L Hgb 7.9 L Hct 25.9 L MCV 89.9 MCH 27.4 L MCHC 30.5 RDW 17.0 H Plt Count 205 MPV 10.7 H Neut % (Auto) 91.6 Lymph % (Auto) 2.5 [place] % (Auto) 4.9 Eos % (Auto) 0.1 Baso % (Auto) 0.2 Neut # (Auto) 15.33 H Lymph # (Auto) 0.4 L [place] # (Auto) 0.8 Eos # (Auto) 0.0 Baso # (Auto) 0.0 Nucleated RBC % (a uto) 0.2 Nucleated RBCs # 0.0 Sodium 138 Potassium 3.9 Chloride 98 Carbon Dioxide 21 L Anion Gap 22.9 H BUN 61 H Creatinine 5.7 H* GFR Calculation 9.9 L Glucose 149 H POC Glucose 147 H Calculated Osmolal ity 306 H Calcium 8.4 L Phosphorus 5.1 H Magnesium 2.4 H Total Bilirubin 0.4 AST 9 ALT < 5 Alkaline Phosphata se 150 H C-Reactive Protein 88.3 H Total Protein 6.5 L Albumin 3.0 L Globulin 3.5 Procalcitonin 0.36 08/13/20 08/13/20 08/13/20 21:05 16:17 11:16 WBC RBC Hgb Hct MCV MCH MCHC RDW Plt Count MPV Neut % (Auto) Lymph % (Auto) [place] % (Auto) Eos % (Auto) Baso % (Auto) Neut # (Auto) Lymph # (Auto) [place] # (Auto) Eos # (Auto) Baso # (Auto) Nucleated RBC % (a uto) Nucleated RBCs # Sodium Potassium Chloride Carbon Dioxide Anion Gap BUN Creatinine GFR Calculation Glucose POC Glucose 284 H 232 H 169 H Calculated Osmolal ity Calcium Phosphorus Magnesium Total Bilirubin AST ALT Alkaline Phosphata se C-Reactive Protein Total Protein Albumin Globulin Procalcitonin 08/13/20 10:47 WBC RBC Hgb Hct MCV MCH MCHC RDW Plt Count MPV Neut % (Auto) Lymph % (Auto) [place] % (Auto) Eos % (Auto) Baso % (Auto) Neut # (Auto) Lymph # (Auto) [place] # (Auto) Eos # (Auto) Baso # (Auto) Nucleated RBC % (a uto) Nucleated RBCs # Sodium Potassium Chloride Carbon Dioxide Anion Gap BUN Creatinine GFR Calculation Glucose POC Glucose 163 H Calculated Osmolal ity Calcium Phosphorus Magnesium Total Bilirubin AST ALT Alkaline Phosphata se C-Reactive Protein Total Protein Albumin Globulin Procalcitonin Vitals: Last Vital Signs Temp 98.1 F 08/14/20 04:00 Pulse 55 L 08/14/20 08:59 Resp 12 08/14/20 08:00 BP 175/95 08/14/20 08:00 Pulse Ox 97 08/14/20 08:59 Discharge Plan Discharge Patient Disposition: Home Condition: Stable Prescriptions: New hydrocodone-acetaminophen 5-325 mg tablet 1 tab PO Q6H PRN (Reason: pain) Qty: 20 RF: 0 atorvastatin 40 mg Tablet 40 mg PO DAILY Qty: 30 RF: 0 sevelamer carbonate 800 mg Tablet 1,600 mg PO TID Qty: 180 RF: 0 docusate sodium [Colace] 100 mg capsule 100 mg PO BID Qty: 30 RF: 0 ondansetron HCl [Zofran] 4 mg tablet 4 mg PO Q6H PRN (Reason: nausea and vomiting) Qty: 20 RF: 0 amoxicillin-pot clavulanate [Augmentin] 875-125 mg tablet 1 tab PO BID Qty: 8 RF: 0 insulin aspart U-100 [Novolog Flexpen U-100 Insulin] 100 unit/mL (3 mL) insulin pen See Rx Instructions .ROUTE .COMPLEX Qty: 15 RF: 0 aspirin 81 mg Tablet,Delayed Release (Dr/Ec) 81 mg PO DAILY Qty: 30 RF: 0 sucralfate 1 gram Tablet 1 g PO AC&BEDTIME Qty: 120 RF: 0 lisinopril 5 mg Tablet 5 mg PO DAILY Qty: 30 RF: 0 clopidogrel 75 mg Tablet 75 mg PO DAILY Qty: 30 RF: 0 Continued calcitriol 0.5 mcg capsule 0.5 mcg PO .COMPLEX RF: 0 escitalopram oxalate 10 mg tablet 10 mg PO DAILY@05 RF: 0 isosorbide mononitrate 60 mg tablet extended release 24 hr 60 mg PO DAILY@05 RF: 0 hydralazine 100 mg tablet 100 mg PO TID RF: 0 levothyroxine 25 mcg capsule 25 mcg PO DAILY@05 RF: 0 pantoprazole 40 mg tablet,delayed release (DR/EC) 40 mg PO DAILY@0500 RF: 0 terazosin 10 mg capsule 10 mg PO BID@05,18 RF: 0 nitroglycerin [Nitrostat] 0.4 mg tablet, sublingual 0.4 mg SUBLINGUAL Q5M PRN (Reason: Chest Pain) RF: 0 acetaminophen [Tylenol Extra Strength] 500 mg tablet 1,000 mg PO Q6H PRN (Reason: Pain) RF: 0 allopurinol 300 mg tablet 300 mg PO DAILY@1800 RF: 0 metoprolol tartrate 75 mg tablet 75 mg PO BID Qty: 180 RF: 3 furosemide 40 mg tablet 80 mg PO BID PRN (Reason: Edema) RF: 0 amlodipine 5 mg Tablet 5 mg PO DAILY@05 RF: 0 Changed insulin detemir U-100 100 unit/mL (3 mL) insulin pen 5 unit SUBCUT DAILY Qty: 0 RF: 0 Discontinued pravastatin 40 mg tablet 40 mg PO DAILY@1800 RF: 0 Discharge Orders: Discharge Order (Routine); Ordered 08/14/20 Ordered By: Zachary Garcia Referrals: [facility] [Other] (You will have your first dialysis treatment on Friday, August 14, 2020 at 11:00am. ) Nephrology [Provider Group] - 1 week Christiano Dao MD [Physician] - 2 weeks LEÓN SEGOVIA MD [Primary Care Provider] - 4-7 days Luciana Bergman FNP [Nurse Practitioner] - 1 week Discharge Diet: As Directed, Cardiac and Diabetic Discharge Activity: Limit activity as instructed and Oxygen as instructed Patient Instructions: Lisinopril (By mouth), Sucralfate (By mouth), Hydrocodone/Acetaminophen (By mouth), Ondansetron (By mouth), Atorvastatin (By mouth), Clopidogrel (By mouth), Myocardial Infarction (DC), Hemodialysis (DC), Hemodialysis (GEN), Dialysis Diet (GEN), Laparoscopic Cholecystectomy (DC), Anemia (DC), End-Stage Kidney Disease (DC) Activity Restrictions/Additional Instructions: Diet Advance to normal diet as tolerated, increase fluid intake as much as possible. Activity Avoid strenuous activity for 2 weeks but continue with daily activities including walking as tolerated. Do not lift more than 10 pounds for 2 weeks Return to work/school You can return to work/ school whenever you feel ready as long as you don?t have to lift more than 10 pounds at work. If you have paperwork that needs to be completed for time off from work, please contact my office Driving You can resume driving once you stop using narcotic pain medications, and transition to non-opioid pain medications like Tylenol, Motrin, Aleve, etc. Medications Pain Take opioid pain medications as prescribed and transition to non-opioid pain medications like Tylenol, Motrin, Aleve etc. over the next few days. The goal of the pain medications is to make the pain bearable and not to be pain free since you recently had surgery. Resume all home medications after surgery as per the medication reconciliation list Nausea Nausea is common after surgery, take nausea medications as needed and stay on a liquid bland diet until nausea resolves. Constipation The combination of surgery, anesthesia and pain medications can result in constipation. Take stool softeners as prescribed. If you do not have a bowel movement in 3 days, please take an [id number] laxative like MiraLAX to address the constipation. Shower It is ok to shower but avoid getting the wound wet for 48 hours after surgery. Do not soak in bathtub, swimming pool or hot tub for 2 weeks. Wound care The glue applied to the incision will peel slowly over the next two weeks. The stitches used are dissolvable and will not need to be removed. Do not apply antibiotics or other medications on the incision Problems with the wound You can develop some redness around the incision from bruising after surgery. If there is increasing pain, redness, tenderness around the incision with or without drainage, please contact my office to rule out an infection. Sometimes the skin at the incisions can separate, resulting in reopening of the wound. Cover the wound with antibiotic cream and sterile dressings and contact my office. Contact physician Call the office at [phone] during office hours or go the Emergency Room after hours for - ?Fever to 100.4 or greater ?Shaking chills ?Pain that increases over time ?Redness, warmth, or pus draining from incision sites ?Persistent nausea or inability to take in liquids Please note that your insulin detemir dose has been changed quite significantly down to 5 units daily. Please monitor glucose 4 times daily, do not take insulin if your glucose is less than 70. If noted to less than 70, please take sugary snacks, recheck in 15-20 minutes. If not increasing, please seek medical attention. Continue follow-up with your primary care doctor to optimize control of diabetes. Please maintain diabetic, cardiac, hemodialysis/renal diet. Please continue with hemodialysis as scheduled. Follow-up with nephrology. Follow-up with cardiology in office regarding follow-up after heart attack. If experiencing persistent chest pain, shortness of breath, fainting, or other unexplained symptoms, please seek medical attention. Please have your primary care doctor follow-up your blood counts due to anemia. In case of recurrent nosebleeds, please discuss with your primary care doctor referral to ear nose throat doctor. Please discuss with your primary doctor collection of stool for assessment for hidden blood as cause of anemia. Discharge Attestations Time Spent in Discharge Care*: greater than 30 min Quality Metrics Clinical Quality Measures During this hospital stay, did patient experience: AMI Clinical Trial Participant: No Contraindication to aspirin (AMI): Aspirin given Contraindication to statin: Statin prescribed Contraindication to PCI: Medical contraindication Coding Level of Care Code Acute g FW FL note Diagnoses Acute kidney injury superimposed on CKD N17.9; N18.9 Essential hypertension I10 Anemia D64.9 Biliary dyskinesia K82.8 Right upper quadrant abdominal pain R10.11 Congestive 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 I11.0 Acute on chronic anemia D64.9 Non-ST elevated myocardial infarction (non-STEMI) I21.4 Chronic kidney disease (CKD) stage G5/A1, glomerular filtration rate (GFR) less than or equal to 15 mL/min/1.73 square meter and albuminuria creatinine ratio less than 30 mg/g N18.5 Dyslipidemia E78.5 Diabetes 1.5, managed as type 2 E13.9
[2020-08-14 13:37] VITALS: BP 160/85; PULSE 55; RESP 18; TEMP 36.7; O2SAT 97
[2020-08-14 15:37] LABS: THYROID PEROXIDASE ANTIBODIES <1 IU/mL (<9)
--- NOTE | 2020-08-14 16:08 | PC.NURSE ---
Pt discharged home. Pts IV removed no redness or swelling noted. Pts discharge instructions given along with prescriptions and follow up appointments. Pt had no c/o pain or discomfort at the time of discharge. Pt transferred out via wheelchair accompanied by staff.
[2020-08-16 13:57] LABS: COMPLEMENT, TOTAL (CH50) >60 U/mL (31-60)
[2020-08-18 00:36] LABS: DNA AB (DS) CRITHIDIA,IFA NEGATIVE (NEGATIVE)
[2020-08-20 01:52] LABS: ANCA Interp Negative (Negative)
[2020-08-20 16:52] LABS: Vit D 1,25 (Oh)2, Total 18 pg/mL (18-72); Vit D2 1,25 (Oh)2 <8 pg/mL; Vit D3 1,25 (Oh)2 18 pg/mL
== END 2020-08-14 14:37 | disposition home or self-care (01) | DRG 987 ==
LOC: ER 03:23 → ICU 05:16 → CSU 08-10 17:45
PROVIDERS: Family Medicine; Internal Medicine Nephrology; Surgery; Admitting Provider Internal Medicine; Emergency Provider Family Medicine; PCP Family Medicine; Visit Provider Internal Medicine
PROC: 0JH63XZ Insertion of Tunneled Vascular Access Device into Chest Subcutaneous Tissue and Fascia, Percutaneous Approach (ICD-10-PCS; principal; 2020-08-09 13:45)
PROC: 0FT44ZZ Resection of Gallbladder, Percutaneous Endoscopic Approach (ICD-10-PCS; CPT 47562; principal; 2020-08-13 09:10)
DX: I21.4 Non-ST elevation (NSTEMI) myocardial infarction (principal); N18.6 End stage renal disease; I13.2 Hypertensive heart and chronic kidney disease with heart failure and with stage 5 chronic kidney disease, or end stage renal disease; N39.0 Urinary tract infection, site not specified; E87.2 Acidosis; E87.1 Hypo-osmolality and hyponatremia; N17.9 Acute kidney failure, unspecified; E11.22 Type 2 diabetes mellitus with diabetic chronic kidney disease; I50.9 Heart failure, unspecified; I25.10 Atherosclerotic heart disease of native coronary artery without angina pectoris; Z95.5 Presence of coronary angioplasty implant and graft; E11.40 Type 2 diabetes mellitus with diabetic neuropathy, unspecified; E11.51 Type 2 diabetes mellitus with diabetic peripheral angiopathy without gangrene; E78.5 Hyperlipidemia, unspecified; E03.9 Hypothyroidism, unspecified; K21.9 Gastro-esophageal reflux disease without esophagitis; Z86.73 Personal history of transient ischemic attack (TIA), and cerebral infarction without residual deficits; I44.0 Atrioventricular block, first degree; D63.1 Anemia in chronic kidney disease; G89.29 Other chronic pain; M54.9 Dorsalgia, unspecified; I65.23 Occlusion and stenosis of bilateral carotid arteries; Z86.16 Personal history of COVID-19; I25.2 Old myocardial infarction; G47.33 Obstructive sleep apnea (adult) (pediatric); Z87.891 Personal history of nicotine dependence; Z99.81 Dependence on supplemental oxygen; Z79.82 Long term (current) use of aspirin; Z79.84 Long term (current) use of oral hypoglycemic drugs; B95.1 Streptococcus, group B, as the cause of diseases classified elsewhere; K80.20 Calculus of gallbladder without cholecystitis without obstruction; M79.662 Pain in left lower leg; M79.661 Pain in right lower leg
CPT/HCPCS: 36415; 36416; 36430; 51702; 71045; 74176; 76000; 76705; 76770; 77001; 78226; 80048; 80053; 80061; 81001; 82306; 82310; 82436; 82570; 82652; 82728; 82962; 82977; 83516; 83540; 83550; 83735; 83880; 83935; 83970; 84100; 84133; 84145; 84300; 84443; 84484; 84540; 84550; 85025; 85610; 85651; 85730; 85999; 86140; 86160; 86162; 86225; 86235; 86255; 86376; 86706; 86803; 86850; 86900; 86920; 87040; 87086; 87340; 87426; 88304; 90935; 93005; 93306; 93970; 96372; 97110; 97116; 97161; 97165; 97530; 99285; A9537; C1750; C9113; J0330; J0690; J0696; J1100; J1644; J1815; J1940; J2250; J2270; J2370; J2405; J2543; J2704; J2710; J3010; J3490; J7030; J7799; P9016; Q3014; Q4081

== ENCOUNTER 2020-08-22 21:37 | Emergency (ER) | payer MEDICARE, SELFPAY ==
[2020-08-22 21:38] VITALS: BP 204/93; PULSE 83; RESP 19; TEMP 36.6; O2SAT 95; BMI 32.2
--- NOTE | 2020-08-22 21:45 | XRR_ITS ---
PROCEDURE INFORMATION: Exam: XR Chest Exam date and time: 08/22/2020 9:50 PM Age: 70 years old Clinical indication: Prior surgery; Surgery type: Gb, port, back; Patient HX: Chest pain x 1 hour; Additional info: Cp TECHNIQUE: Imaging protocol: XR of the chest. Views: 1 view. COMPARISON: CR XR chest 1V portable [id number] 08/10/2020 8:03 AM FINDINGS: Tubes, catheters and devices: Stable right-sided dialysis catheter. Lungs: . Hazy increased density at the right lung base.. Pleural spaces: Unremarkable. No pleural effusion. No pneumothorax. Heart/Mediastinum: There is mild cardiomegaly. Bones/joints: Stable sclerosis of the right scapula. XR/XR chest 1V portable [id number] IMPRESSION: 1. Stable right-sided dialysis catheter. 2. Mild cardiomegaly. 3. Hazy atelectasis versus pneumonia base.
--- NOTE | 2020-08-22 21:45 | ECG_ITS ---
[facility] Test Date: 2020-08-22 Pat Name: Eliazar Hogan Department: Room: Gender: Male Pelt Inspector: : 1950 Requested By: Tino Ignacio Order Number: [id number] Flor MD: Daryl Ashraf M.D. Measurements Intervals [place] Rate: 87 P: 35 TN: 271 QRS: -6 QRSD: 105 T: 21 QT: 395 QTc: 476 Interpretive Statements SINUS RHYTHM WITH FIRST DEGREE AV BLOCK LEFT VENTRICULAR HYPERTROPHY AND ST-T CHANGE [VOLTAGE CRITERIA PLUS ST/T ABNORMALITY] Compared to ECG 08/08/2020 21:25:15 First degree AV block now present Left ventricular hypertrophy now present ST (T wave) deviation now present Incomplete right bundle-branch block no longer present Myocardial infarct finding no longer present Electronically Signed On 08-23-2020 8:04:07 CDT by Daryl Ashraf M.D. [email or web address]
--- NOTE | 2020-08-22 21:53 | ED_ITS ---
HPI - Chest Pain General: Chief Complaint: Chest Pain Stated Complaint: chest pain Time Seen by Provider: 08/22/20 21:41 Source: patient Mode of arrival: ambulatory Limitations: no limitations History of Present Illness: HPI narrative: 70-year-old male who has a history of end-stage renal disease along with coronary artery disease. Patient was admitted a few weeks ago with an NSTEMI. He did not undergo PCI due to too many risk factors was started on Plavix. Patient's also started dialysis as well and had dialysis yesterday. States has been having chest pain throughout the day. He states been a sharp pain in the middle of his chest. Denies any shortness of breath. Denies any vomiting or diarrhea. Denies any worsening or improving factors. MD complaint: chest pain Associated symptoms: Deny abdominal pain, dyspnea, fever(s), nausea or vomiting Review of Systems Const: Denies: fever(s), chills, body aches or change in appetite Eyes: Denies: blurry vision or eye discomfort ENMT: Denies: throat pain or dental pain Card: Reports: chest pain Resp: Denies: dyspnea GI: Denies: abdominal pain, nausea, vomiting or diarrhea : Denies: dysuria Musc: Denies: neck pain or back pain Skin/Breast: Denies: rash Neuro: Denies: headache(s) Psych: Denies: depression Jermain/Lymph: Denies: easy bruising All/Imm: Denies: urticaria PFSH ED PFSH: Medical History (Updated 08/23/20 @ 00:24 by Tino Ignacio MD) Acute kidney injury superimposed on CKD Anemia ASHD (arteriosclerotic heart disease) Carotid stenosis, bilateral Chronic back pain Chronic kidney disease (CKD) Chronic kidney disease (CKD) stage G5/A1, glomerular filtration rate (GFR) less than or equal to 15 mL/min/1.73 square meter and albuminuria creatinine ratio less than 30 mg/g Congestive 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 CVA (cerebral vascular accident) Diabetes 1.5, managed as type 2 Dyslipidemia Essential hypertension History of 2019 novel coronavirus disease (COVID-19) Hypothyroidism Myocardial infarction KAITLYNN (obstructive sleep apnea) Surgical History Previous back surgery S/P angioplasty with stent S/P cataract extraction S/P hemodialysis catheter insertion Family History Mother CAD (coronary artery disease) Stroke Sister Hypertension Social History Smoking and tobacco status: former smoker Alcohol intake: never Household members: spouse Marital status: service: Yes branch: [employer] Current occupational status: employed 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 History of recent travel: No Current gender identity: Male Physical Exam Const: COMMON NORMALS: no acute distress, patient oriented x3 and healthy appearing HENMT: COMMON NORMALS: normocephalic and atraumatic HEAD & SCALP: normocephalic and atraumatic Eye: COMMON NORMALS: Equal, round and reactive pupils present and EOMs intact bilaterally PUPIL: Yes Equal, round and reactive pupils present Neck/C-Spine: COMMON NORMALS: full ROM and supple Chest: COMMONS NORMALS: normal inspection of the chest and normal palpation of entire chest wall Resp: COMMON NORMALS: normal respiratory effort, No retractions, No use of accessory muscles and clear to auscultation bilaterally AUSCULTATION: clear to auscultation bilaterally Cardio: COMMON NORMALS: regular rate, regular rhythm and No murmurs present (Cardio) RATE: regular rate RHYTHM: regular rhythm GI: COMMON NORMALS: Normal to inspection, nondistended, normoactive bowel sounds present, Soft to palpation, non-tender and no masses PALPATION: Yes Soft to palpation Extremity: COMMON NORMALS: normal to inspection and full ROM Neuro: COMMON NORMALS: patient oriented x3, moves all extremities and no focal motor deficits Psych: COMMON NORMALS: mental status grossly normal, Normal thought process present and cooperative THOUGHT PROCESS: Normal thought process present Skin: COMMON NORMALS: no rashes or lesions noted and no wounds GENERAL SKIN EXAM: no rashes or lesions noted Course Vital Signs: Vital signs: Vital Signs Temperature 97 F L 08/23/20 01:10 Pulse Rate 78 08/23/20 01:10 Respiratory Rate 18 08/23/20 01:10 Blood Pressure 138/78 08/23/20 01:10 Pulse Oximetry 96 08/23/20 01:10 MDM - Chest Pain MDM Narrative: Medical decision making narrative: Patient presents with chest pain. His 2-hour troponin here came back less than his initial. His pain is improved here his EKGs are normal as well. He is continue his Plavix and aspirin follow-up with Dr. Ashraf as scheduled. Do not feel patient needs admitted at this time. He is to return if worsening. He understands and agrees to plan. Lab Data: Labs: Lab Results 08/22/20 08/22/20 08/22/20 Range/Units 22:05 22:05 22:05 WBC 13.8 H (4.0-10.0) 10^3/ uL RBC 3.28 L (4.1-5.3) 10^6/u L Hgb 8.9 L (11.7-16.6) g/dL Hct 29.5 L (42.0-52.0) % MCV 89.9 (80-94) fL MCH 27.1 L (28.0-34.0) pg MCHC 30.2 (30.0-36.0) g/dL RDW 16.3 H (12.1-15.1) % Plt Count 250 (130-400) 10^3/c mm MPV 9.0 (7.4-10.4) fL Neut % (Auto) 73.9 % Lymph % (Auto) 8.3 % [place] % (Auto) 9.5 % Eos % (Auto) 6.4 % Baso % (Auto) 0.8 % Neut # (Auto) 10.16 H (1.8-7.7) 10^3/u L Lymph # (Auto) 1.1 (0.8-4.8) 10^3/u L [place] # (Auto) 1.3 H (0.2-0.9) 10^3/u L Eos # (Auto) 0.9 H (0.0-0.8) 10^3/u L Baso # (Auto) 0.1 (0.0-0.1) 10^3/u L Nucleated RBC % (a uto) 0 % Nucleated RBCs # 0.0 /100WBC PT 13.80 (12.1-14.9) SECO NDS INR 1.03 (0.8-1.2) Sodium 135 L (136-145) mmol/L Potassium 3.3 L (3.5-5.1) mmol/L Chloride 96 L (98-107) mmol/L Carbon Dioxide 27 (22-29) mmol/L Anion Gap 15.3 (5-19) BUN 37 H (8-23) mg/dL Creatinine 3.8 H (0.7-1.2) mg/dL GFR Calculation 15.8 L (90-130) mL/min Glucose 275 H (65-115) mg/dL Calculated Osmolal ity 298 H (285-295) mOsm/k g Calcium 8.7 (8.5-10.5) mg/dL Total Bilirubin 0.5 (0.15-1.2) mg/dL AST 12 (0-40) U/L ALT 10 (0-41) U/L Alkaline Phosphata se 183 H (40-130) IU/L Troponin T Baselin e (0-15) ng/L Troponin T 120 Min [place] (0-15) ng/L Delta Troponin T (0-10) ABS# Total Protein 7.1 (6.6-8.7) g/dL Albumin 3.9 (3.5-5.2) g/dL Globulin 3.2 (1.3-4.6) g/dL 08/22/20 08/22/20 Range/Units 22:05 23:45 WBC (4.0-10.0) 10^3/ uL RBC (4.1-5.3) 10^6/u L Hgb (11.7-16.6) g/dL Hct (42.0-52.0) % MCV (80-94) fL MCH (28.0-34.0) pg MCHC (30.0-36.0) g/dL RDW (12.1-15.1) % Plt Count (130-400) 10^3/c mm MPV (7.4-10.4) fL Neut % (Auto) % Lymph % (Auto) % [place] % (Auto) % Eos % (Auto) % Baso % (Auto) % Neut # (Auto) (1.8-7.7) 10^3/u L Lymph # (Auto) (0.8-4.8) 10^3/u L [place] # (Auto) (0.2-0.9) 10^3/u L Eos # (Auto) (0.0-0.8) 10^3/u L Baso # (Auto) (0.0-0.1) 10^3/u L Nucleated RBC % (a uto) % Nucleated RBCs # /100WBC PT (12.1-14.9) SECO NDS INR (0.8-1.2) Sodium (136-145) mmol/L Potassium (3.5-5.1) mmol/L Chloride (98-107) mmol/L Carbon Dioxide (22-29) mmol/L Anion Gap (5-19) BUN (8-23) mg/dL Creatinine (0.7-1.2) mg/dL GFR Calculation (90-130) mL/min Glucose (65-115) mg/dL Calculated Osmolal ity (285-295) mOsm/k g Calcium (8.5-10.5) mg/dL Total Bilirubin (0.15-1.2) mg/dL AST (0-40) U/L ALT (0-41) U/L Alkaline Phosphata se (40-130) IU/L Troponin T Baselin e 178 H* (0-15) ng/L Troponin T 120 Min [place] 169.2 H (0-15) ng/L Delta Troponin T -8.8 L (0-10) ABS# Total Protein (6.6-8.7) g/dL Albumin (3.5-5.2) g/dL Globulin (1.3-4.6) g/dL Imaging Data^: CXR: Attestation: I personally reviewed and interpreted this imaging study as follows: Radiologist's impression: [address] [address] XRay Report Signed Patient: Eliazar Hogan Unit #: [id number] : 1950 Age/Sex: 70 / M ADM Date: 08/22/20 Loc: ER Room/Bed: Attending Dr: Ordering Provider/Ordering MD: Tino Ignacio MD Date of Service: 08/22/20 Procedure(s): XR chest 1V portable [id number] Accession Number(s): [id number] Report Number: [id number] PROCEDURE INFORMATION: Exam: XR Chest Exam date and time: 08/22/2020 9:50 PM Age: 70 years old Clinical indication: Prior surgery; Surgery type: Gb, port, back; Patient HX: Chest pain x 1 hour; Additional info: Cp TECHNIQUE: Imaging protocol: XR of the chest. Views: 1 view. COMPARISON: CR XR chest 1V portable [id number] 08/10/2020 8:03 AM FINDINGS: Tubes, catheters and devices: Stable right-sided dialysis catheter. Lungs: . Hazy increased density at the right lung base.. Pleural spaces: Unremarkable. No pleural effusion. No pneumothorax. Heart/Mediastinum: There is mild cardiomegaly. Bones/joints: Stable sclerosis of the right scapula. XR/XR chest 1V portable [id number] IMPRESSION: 1. Stable right-sided dialysis catheter. 2. Mild cardiomegaly. 3. Hazy atelectasis versus pneumonia base. EKG Data^: EKG 1: Attestation: I personally reviewed and interpreted this EKG as follows: EKG interpretation date: 08/22/20 EKG interpretation time: 21:39 Interpretation: nsr hr [address] or t wave abnormalities qrs 105 qtc 439 EKG 2: Attestation: I personally reviewed and interpreted this EKG as follows: EKG interpretation date: 08/22/20 EKG interpretation time: 23:50 Interpretation: nsr hr [address] or t wave abnormalities qrs 105 qtc 420 Discharge Plan Discharge Patient Disposition: Home Clinical Impression: Chest pain Qualifiers: Chest pain type: unspecified Qualified Code(s): R07.9 - Chest pain, unspecified Condition: Stable Prescriptions: No Action calcitriol 0.5 mcg capsule 0.5 mcg PO DAILY RF: 0 escitalopram oxalate 10 mg tablet 10 mg PO DAILY@05 RF: 0 isosorbide mononitrate 60 mg tablet extended release 24 hr 60 mg PO DAILY@05 RF: 0 hydralazine 100 mg tablet 100 mg PO TID RF: 0 levothyroxine 25 mcg capsule 25 mcg PO DAILY@05 RF: 0 pantoprazole 40 mg tablet,delayed release (DR/EC) 40 mg PO DAILY@0500 RF: 0 terazosin 10 mg capsule 10 mg PO BID@18 RF: 0 nitroglycerin [Nitrostat] 0.4 mg tablet, sublingual 0.4 mg SUBLINGUAL Q5M PRN (Reason: Chest Pain) RF: 0 acetaminophen [Tylenol Extra Strength] 500 mg tablet 1,000 mg PO Q6H PRN (Reason: Pain) RF: 0 allopurinol 300 mg tablet 300 mg PO DAILY@1800 RF: 0 Novolog Flexpen U-100 Insulin 100 unit/mL (3 mL) insulin pen See Rx Instructions .ROUTE .COMPLEX Qty: 15 RF: 0 aspirin 81 mg tablet,delayed release (DR/EC) 81 mg PO DAILY Qty: 30 RF: 0 atorvastatin 40 mg tablet 40 mg PO DAILY Qty: 30 RF: 0 clopidogrel 75 mg tablet 75 mg PO DAILY Qty: 30 RF: 0 insulin detemir U-100 100 unit/mL (3 mL) insulin pen 5 unit SUBCUT DAILY Qty: 15 RF: 0 lisinopril 5 mg tablet 5 mg PO DAILY Qty: 30 RF: 0 sevelamer carbonate 800 mg tablet 1,600 mg PO TID Qty: 180 RF: 0 sucralfate 1 gram tablet 1 g PO AC&BEDTIME Qty: 120 RF: 0 metoprolol tartrate 75 mg tablet 75 mg PO BID Qty: 180 RF: 3 furosemide 40 mg tablet 80 mg PO BID PRN (Reason: Edema) RF: 0 amlodipine 5 mg Tablet 5 mg PO DAILY@05 RF: 0 Discharge Orders: Discharge ED (Routine); Ordered 08/23/20 Ordered By: Tino Ignacio Referrals: Carlee Carreon DO [Primary Care Provider] - Discharge Diet: Advance as tolerated Discharge Activity: Resume usual activity Patient Instructions: Chest Pain (ED) Coding Level of Care Code ED Fruit Stuffer for Silvestreg 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
[2020-08-22 22:15] LABS: Basophils # 0.1 10^3/uL (0.0-0.1); Basophils % 0.8 %; Eosinophils # 0.9 10^3/uL (0.0-0.8); Eosinophils % 6.4 %; Hematocrit 29.5 % (42.0-52.0); Hemoglobin 8.9 g/dL (11.7-16.6); Lymphocytes # 1.1 10^3/uL (0.8-4.8); Lymphocytes % 8.3 %; Mean Corpuscular HGB Conc 30.2 g/dL (30.0-36.0); Mean Corpuscular Hemoglobin 27.1 pg (28.0-34.0); Mean Corpuscular Volume 89.9 fL (80-94); Monocytes # 1.3 10^3/uL (0.2-0.9); Monocytes % 9.5 %; Neutrophils # 10.16 10^3/uL (1.8-7.7); Neutrophils % 73.9 %; Nucleated Red Blood Cells % 0 %; Platelet Count 250 10^3/cmm (130-400); Red Blood Count 3.28 10^6/uL (4.1-5.3); Red Cell Distribution Width 16.3 % (12.1-15.1); White Blood Count 13.8 10^3/uL (4.0-10.0)
[2020-08-22 22:29] LABS: INR 1.03 (0.8-1.2)
[2020-08-22 22:37] LABS: Troponin(5th) Baseline 178 ng/L (0-15)
[2020-08-22 22:39] VITALS: RESP 24
[2020-08-22] MEDS: HYDROmorphone 1 mg/mL INJ 1 mL 0.5 MG IVP (22:39)
[2020-08-22] MEDS: ondansetron 2 mg/ML SDV 2 mL 4 MG IVP (22:39)
[2020-08-22 22:43] VITALS: BP 188/87; PULSE 89; RESP 16; O2SAT 99
[2020-08-22 22:51] LABS: Alanine Aminotransferase 10 U/L (0-41); Albumin Level 3.9 g/dL (3.5-5.2); Alkaline Phosphatase 183 IU/L (40-130); Anion Gap 15.3 (5-19); Aspartate Amino Transferase 12 U/L (0-40); Blood Urea Nitrogen 37 mg/dL (8-23); Calcium 8.7 mg/dL (8.5-10.5); Carbon Dioxide 27 mmol/L (22-29); Chloride 96 mmol/L (98-107); Globulin 3.2 g/dL (1.3-4.6); Glomerular Filtration Rate 15.8 mL/min (90-130); Glucose 275 mg/dL (65-115); Osmolality Calculated 298 mOsm/kg (285-295); Potassium 3.3 mmol/L (3.5-5.1); Sodium 135 mmol/L (136-145); Total Bilirubin 0.5 mg/dL (0.15-1.2); Total Protein 7.1 g/dL (6.6-8.7)
[2020-08-22] MEDS: aspirin 81 mg Chew Tablet 324 MG PO (23:19)
[2020-08-22] MEDS: nitroglycerin 0.4 mg sublingual Tablet SUBLINGUAL (23:20)
--- NOTE | 2020-08-22 23:45 | ECG_ITS ---
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 Measurements Intervals [place] Rate: 90 P: 43 WV: 287 QRS: 8 QRSD: 105 T: 54 QT: 373 QTc: 457 Interpretive Statements SINUS RHYTHM WITH FIRST DEGREE AV BLOCK NONSPECIFIC ST & T-WAVE ABNORMALITY Compared to ECG 08/22/2020 21:39:12 T-wave abnormality now present Left ventricular hypertrophy no longer present ST (T wave) deviation no longer present Electronically Signed On 08-23-2020 10:02:31 CDT by Daryl Ashraf M.D. [id number]
[2020-08-23 00:17] LABS: Troponin 5 2HR 169.2 ng/L (0-15)
[2020-08-23 00:19] LABS: Troponin 5 2HR Delta -8.8 ABS# (0-10)
[2020-08-23 01:10] VITALS: BP 138/78; PULSE 78; RESP 18; TEMP 36.1; O2SAT 96
== END 2020-08-23 01:12 | disposition home or self-care (01) ==
PROVIDERS: Emergency Provider Emergency Medicine; PCP Family Medicine
DX: R07.9 Chest pain, unspecified (principal); Z79.02 Long term (current) use of antithrombotics/antiplatelets; Z79.82 Long term (current) use of aspirin; Z79.4 Long term (current) use of insulin; I11.0 Hypertensive heart disease with heart failure; I50.9 Heart failure, unspecified; E13.9 Other specified diabetes mellitus without complications; I25.2 Old myocardial infarction; Z87.891 Personal history of nicotine dependence
CPT/HCPCS: 36415; 71045; 80053; 84484; 85025; 85610; 93005; 96374; 96375; 99285; J1170; J2405

== ENCOUNTER 2020-09-01 08:41 | Emergency (ER) | payer MEDICARE, SELFPAY ==
[2020-09-01] VITALS (17 sets, daily range): BP systolic 115–141; BP diastolic 58–67; PULSE 76–95; RESP 16–42; TEMP 36.5; O2SAT 90–97; BMI 34.8
--- NOTE | 2020-09-01 09:01 | CT_ITS ---
WS: [id number] CT HEAD NONCONTRAST HISTORY: L sided weakness TECHNIQUE: Contiguous axial imaging performed through the brain in 2.5 mm imaging. Bone and soft tiss ue windows. Sagittal and coronal reformats reviewed. All CT scans at [facility] use at ast one of these dose optimization techniques: automated exposure control; mA and/or kV adjustment pe r patient size (includes targeted exams where dose is matched to clinical indication); or iterative r econstruction. DLP: 886.73 mGy.cm COMPARISON: 02/03/2020 No acute intracranial hemorrhage, midline shift or mass effect. Mild atrophy and mild chronic microvascular ischemic disease. Prior lacunar infarcts in the external capsules bilaterally. Similar to the prior study. Ventricles: Normal size with no hydrocephalus. No inferior displacement of the cerebellar tonsils. Paranasal sinuses: As visualized are clear. Mastoid air cells: Well pneumatized. Calvarium and scalp: Skull is intact with no soft tissue edema or swelling. Mild calcified plaque within the intracranial carotid arteries. CT/CT head wo con* [id number] IMPRESSION: 1. No acute intracranial hemorrhage or edema. 2. Mild atrophy and chronic ischemic disease. No progression since 02/03/2020.
--- NOTE | 2020-09-01 09:01 | XR_ITS ---
WS: [id number] Portable AP upright chest, 09/01/2020 Clinical Data: dyspnea/cough Comparison: Portable chest, 08/22/2020. Findings: No nodules, masses or effusions are seen. The heart is enlarged. The pulmonary vascularity is not increased. No pneumonia or pneumothorax is seen. The aortic arch and descending aorta are tort uous. The right dialysis catheter remains in good position. The patient has had a posterior thoracic fusion which remains the same. There is sclerosis of the lateral aspect of the right scapula which is probably stable Paget's disease. XR/XR chest 1V portable [id number] Impression: Cardiomegaly and atherosclerosis.
--- NOTE | 2020-09-01 09:02 | ECG_ITS ---
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 Measurements Intervals [place] Rate: 81 P: IN: QRS: -10 QRSD: 106 T: 29 QT: 407 QTc: 475 Interpretive Statements ATRIAL FIBRILLATION MODERATE VOLTAGE CRITERIA FOR LVH, CONSIDER NORMAL VARIANT [MEETS CRITERIA IN ONE OF: R(aVL), S(V1), R(V5), R(V5/V6)+S(V1)] POSSIBLE ANTERIOR MYOCARDIAL INFARCTION [30 ms Q WAVE IN V3/V4, OR R < 0.2 mV IN V4], OF INDETERMINATE AGE Compared to ECG 08/22/2020 23:50:22 Myocardial infarct finding now present Sinus rhythm no longer present First degree AV block no longer present T-wave abnormality no longer present Electronically Signed On 09-01-2020 21:53:47 CDT by Daryl Ashraf M.D. [email or web address] branch [email or web address] Paymentsmercy health [email or web address].[email or web address]/[id number] preeti
[2020-09-01 09:16] LABS: Basophils # 0.1 10^3/uL (0.0-0.1); Basophils % 1.1 %; Eosinophils # 0.6 10^3/uL (0.0-0.8); Eosinophils % 5.3 %; Hematocrit 29.9 % (42.0-52.0); Hemoglobin 9.1 g/dL (11.7-16.6); Lymphocytes % 8.6 %; Mean Corpuscular HGB Conc 30.4 g/dL (30.0-36.0); Mean Corpuscular Hemoglobin 27.9 pg (28.0-34.0); Mean Corpuscular Volume 91.7 fL (80-94); Mean Platelet Volume 9.7 fL (7.4-10.4); Monocytes # 0.9 10^3/uL (0.2-0.9); Monocytes % 8.1 %; Neutrophils # 8.61 10^3/uL (1.8-7.7); Neutrophils % 75.2 %; Nucleated Red Blood Cells % 0 %; Platelet Count 265 10^3/cmm (130-400); Red Blood Count 3.26 10^6/uL (4.1-5.3); Red Cell Distribution Width 15.6 % (12.1-15.1); White Blood Count 11.5 10^3/uL (4.0-10.0)
--- NOTE | 2020-09-01 09:18 | ED_ITS ---
HPI - Neuro Symptoms/Deficit General: Chief Complaint: Neuro Symptoms/Deficit Stated Complaint: numbness in r arm/fingers, bit of cp, low bp, sob Time Seen by Provider: 09/01/20 08:52 History of Present Illness: HPI Narrative: 70-year-old male presents emergency room complaint of left-sided weakness and tingling in his left fingers. Initially began around 4:10 AM. He presented here at 841 he states he was normal when he woke up and then began after shortly after he woke up. He also has some chest pain and shortness of breath. By the time he arrived here he was already 4-1/2 hours after onset of symptoms and symptoms were improving. Onset (ago): minute(s) Location: left arm and left leg History of same: No Severity: mild Quality: weak Associated symptoms: Reports chest pain, malaise, short of breath and weakness; Deny cough, diaphoresis, fevers/chills, headache(s), anorexia, nausea, seizures, syncope, tingling, vertigo or vomiting Treatments Prior to Arrival: none Review of Systems Const: Reports: malaise; Denies: diaphoresis ENMT: Denies: throat pain, ear or mastoid pain, nasal discharge or nasal congestion Card: Reports: chest pain; Denies: syncope Resp: Denies: dyspnea, productive cough or non-productive cough GI: Denies: nausea or vomiting : Denies: flank pain, dysuria, urinary frequency or urinary urgency Skin/Breast: Denies: rash or pruritus Neuro: Denies: headache(s) or vertigo PFS ED PFSH: Medical History Acute kidney injury superimposed on CKD Anemia ASHD (arteriosclerotic heart disease) Carotid stenosis, bilateral Chronic back pain Chronic kidney disease (CKD) Chronic kidney disease (CKD) stage G5/A1, glomerular filtration rate (GFR) less than or equal to 15 mL/min/1.73 square meter and albuminuria creatinine ratio less than 30 mg/g Congestive 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 CVA (cerebral vascular accident) Diabetes 1.5, managed as type 2 Dyslipidemia Essential hypertension History of 2019 novel coronavirus disease (COVID-19) Hypothyroidism Myocardial infarction KAITLYNN (obstructive sleep apnea) Surgical History Hx of cholecystectomy Previous back surgery S/P angioplasty with stent S/P cataract extraction S/P hemodialysis catheter insertion Family History Mother CAD (coronary artery disease) Stroke Sister Hypertension Social History Smoking and tobacco status: former smoker Alcohol intake: never Household members: spouse Marital status: service: Yes branch: [employer] Current occupational status: employed Current occupation: [employer] History of recent travel: No Current gender identity: Male NIH stroke score NIHSS: Level Of Consciousness - 1a: 0 Level Of Consciousness Questions - 1b: Both Correct Level Of Consciousness Commands - 1c: Both Correct Best Gaze - 2: Normal Visual Arriaga - 3: No Visual Loss Facial Palsy - 4: Minor Paralysis Motor Arm Right - 5: No Drift Motor Arm Left - 5: Drift Motor Leg Right - 6: No Drift Motor Leg Left - 6: No Drift Limb Ataxia - 7: Absent Sensory - 8: Mild To Moderate Loss Best Language - 9: No Aphasia Dysarthia - 10: Normal Extinction And Inattention - 11: 0 Score: Total Score: 3 Physical Exam Const: COMMON NORMALS: no acute distress GENERAL APPEARANCE: cooperative and comfortable ORIENTATION/CONSCIOUSNESS: Yes awake, Yes oriented to person, Yes oriented to place and Yes oriented to time HENMT: COMMON NORMALS: normocephalic, atraumatic and hearing grossly normal bilaterally HEAD & SCALP: normocephalic and atraumatic Eye: COMMON NORMALS: Equal, round and reactive pupils present, EOMs intact bilaterally, conjunctivae normal and no scleral icterus CONJUNCTIVA: Yes conjunctivae normal PUPIL: Yes Equal, round and reactive pupils present Neck/C-Spine: COMMON NORMALS: full ROM, no lymphadenopathy, supple and no JVD Lymph: LYMPHATIC: no lymphadenopathy noted and no lymphedema noted Resp: COMMON NORMALS: normal respiratory effort, No retractions, No use of accessory muscles and clear to auscultation bilaterally AUSCULTATION: clear to auscultation bilaterally Cardio: COMMON NORMALS: no JVD, regular rate, regular rhythm and No murmurs present (Cardio) RATE: regular rate RHYTHM: regular rhythm GI: COMMON NORMALS: Soft to palpation and No hepatosplenomegaly present AUSCULTATION: Yes normoactive bowel sounds PALPATION: Yes Soft to palpation, No Tenderness to palpation present (GI), No Guarding due to palpation present (GI) and Yes No hepatosplenomegaly present Neuro: SENSORIUM/ORIENTATION: Yes oriented to person, Yes oriented to place and Yes oriented to time Skin: COMMON NORMALS: no rashes or lesions noted GENERAL SKIN EXAM: no rashes or lesions noted Course Vital Signs: Vital signs: Vital Signs Temperature 97.7 F 09/01/20 09:27 Pulse Rate 87 09/01/20 14:05 Respiratory Rate 18 09/01/20 14:05 Blood Pressure 141/67 09/01/20 14:05 Pulse Oximetry 94 09/01/20 14:05 MDM - Neuro Symptoms/Deficit MDM Narrative: Medical decision making narrative: Symptoms are variable he reports some weakness on the left side but is pretty much resolved. His stroke score is extremely low and when repeated at the time of completion of his evaluation his stroke score is back to 0. At this point in think he can be discharged he does have his dialysis later today. He he should continue on the Plavix and aspirin for now. If he has recurrence of symptoms return follow-up with his primary care doctor early next week. At this point he already has dual platelet inhibition as well as a statin. Lab Data: Labs: Lab Results 09/01/20 09/01/20 09/01/20 Range/Units 09:09 09:09 09:09 WBC 11.5 H (4.0-10.0) 10^3/ uL RBC 3.26 L (4.1-5.3) 10^6/u L Hgb 9.1 L (11.7-16.6) g/dL Hct 29.9 L (42.0-52.0) % MCV 91.7 (80-94) fL MCH 27.9 L (28.0-34.0) pg MCHC 30.4 (30.0-36.0) g/dL RDW 15.6 H (12.1-15.1) % Plt Count 265 (130-400) 10^3/c mm MPV 9.7 (7.4-10.4) fL Neut % (Auto) 75.2 % Lymph % (Auto) 8.6 % [place] % (Auto) 8.1 % Eos % (Auto) 5.3 % Baso % (Auto) 1.1 % Neut # (Auto) 8.61 H (1.8-7.7) 10^3/u L Lymph # (Auto) 1.0 (0.8-4.8) 10^3/u L [place] # (Auto) 0.9 (0.2-0.9) 10^3/u L Eos # (Auto) 0.6 (0.0-0.8) 10^3/u L Baso # (Auto) 0.1 (0.0-0.1) 10^3/u L Nucleated RBC % (a uto) 0 % Nucleated RBCs # 0.0 /100WBC Sodium 135 L (136-145) mmol/L Potassium 3.9 (3.5-5.1) mmol/L Chloride 93 L (98-107) mmol/L Carbon Dioxide 27 (22-29) mmol/L Anion Gap 18.9 (5-19) BUN 32 H (8-23) mg/dL Creatinine 4.7 H (0.7-1.2) mg/dL GFR Calculation 12.4 L (90-130) mL/min Glucose 351 H (65-115) mg/dL Calculated Osmolal ity 301 H (285-295) mOsm/k g Calcium 9.3 (8.5-10.5) mg/dL Total Bilirubin 0.5 (0.15-1.2) mg/dL AST 15 (0-40) U/L ALT 12 (0-41) U/L Alkaline Phosphata se 204 H (40-130) IU/L Troponin T Baselin e 209 H* (0-15) ng/L Troponin T 120 Min [place] (0-15) ng/L Delta Troponin T (0-10) ABS# Total Protein 6.7 (6.6-8.7) g/dL Albumin 3.7 (3.5-5.2) g/dL Globulin 3.0 (1.3-4.6) g/dL 09/01/20 Range/Units 11:42 WBC (4.0-10.0) 10^3/ uL RBC (4.1-5.3) 10^6/u L Hgb (11.7-16.6) g/dL Hct (42.0-52.0) % MCV (80-94) fL MCH (28.0-34.0) pg MCHC (30.0-36.0) g/dL RDW (12.1-15.1) % Plt Count (130-400) 10^3/c mm MPV (7.4-10.4) fL Neut % (Auto) % Lymph % (Auto) % [place] % (Auto) % Eos % (Auto) % Baso % (Auto) % Neut # (Auto) (1.8-7.7) 10^3/u L Lymph # (Auto) (0.8-4.8) 10^3/u L [place] # (Auto) (0.2-0.9) 10^3/u L Eos # (Auto) (0.0-0.8) 10^3/u L Baso # (Auto) (0.0-0.1) 10^3/u L Nucleated RBC % (a uto) % Nucleated RBCs # /100WBC Sodium (136-145) mmol/L Potassium (3.5-5.1) mmol/L Chloride (98-107) mmol/L Carbon Dioxide (22-29) mmol/L Anion Gap (5-19) BUN (8-23) mg/dL Creatinine (0.7-1.2) mg/dL GFR Calculation (90-130) mL/min Glucose (65-115) mg/dL Calculated Osmolal ity (285-295) mOsm/k g Calcium (8.5-10.5) mg/dL Total Bilirubin (0.15-1.2) mg/dL AST (0-40) U/L ALT (0-41) U/L Alkaline Phosphata se (40-130) IU/L Troponin T Baselin e (0-15) ng/L Troponin T 120 Min [place] 186.8 H (0-15) ng/L Delta Troponin T -22.2 L (0-10) ABS# Total Protein (6.6-8.7) g/dL Albumin (3.5-5.2) g/dL Globulin (1.3-4.6) g/dL Discharge Plan Discharge Patient Disposition: Home Clinical Impression: Transient ischemia, ESRD on dialysis Condition: Stable Prescriptions: No Action calcitriol 0.5 mcg capsule 0.5 mcg PO DAILY@1800 RF: 0 escitalopram oxalate 10 mg tablet 10 mg PO DAILY@05 RF: 0 isosorbide mononitrate 60 mg tablet extended release 24 hr 60 mg PO DAILY@05 RF: 0 hydralazine 100 mg tablet 100 mg PO BID RF: 0 levothyroxine 25 mcg capsule 25 mcg PO DAILY@05 RF: 0 pantoprazole 40 mg tablet,delayed release (DR/EC) 40 mg PO DAILY@0500 RF: 0 terazosin 10 mg capsule 10 mg PO BID@05,18 RF: 0 nitroglycerin [Nitrostat] 0.4 mg tablet, sublingual 0.4 mg SUBLINGUAL Q5M PRN (Reason: Chest Pain) RF: 0 acetaminophen [Tylenol Extra Strength] 500 mg tablet 1,000 mg PO Q6H PRN (Reason: Pain) RF: 0 allopurinol 300 mg tablet 300 mg PO DAILY@1800 RF: 0 Novolog Flexpen U-100 Insulin 100 unit/mL (3 mL) insulin pen See Rx Instructions .ROUTE .COMPLEX Qty: 15 RF: 0 atorvastatin 40 mg tablet 40 mg PO DAILY Qty: 30 RF: 0 sevelamer carbonate 800 mg tablet 1,600 mg PO TID Qty: 180 RF: 0 sucralfate 1 gram tablet 1 g PO AC&BEDTIME Qty: 120 RF: 0 furosemide 40 mg tablet 80 mg PO BID@0500,1800 PRN (Reason: Edema) RF: 0 amlodipine 5 mg Tablet 5 mg PO DAILY@05 RF: 0 clopidogrel 75 mg tablet 75 mg PO DAILY RF: 0 aspirin 81 mg tablet,delayed release (DR/EC) 81 mg PO DAILY@0500 RF: 0 lisinopril 5 mg tablet 5 mg PO DAILY@1800 RF: 0 insulin detemir U-100 100 unit/mL (3 mL) insulin pen 5 unit SUBCUT BID RF: 0 metoprolol tartrate 75 mg tablet 75 mg PO BID@0500,1800 RF: 0 Discharge Orders: Discharge ED (Routine); Ordered 09/01/20 Ordered By: Parish White Referrals: Carlee Carreon DO [Primary Care Provider] - Discharge Diet: Usual diet Discharge Activity: Increase activity as tolerated Patient Instructions: Opioid Safety Coding Level of Care Code ED Ancillary Specialist for Chg 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
[2020-09-01 09:38] LABS: Alanine Aminotransferase 12 U/L (0-41); Albumin Level 3.7 g/dL (3.5-5.2); Alkaline Phosphatase 204 IU/L (40-130); Anion Gap 18.9 (5-19); Aspartate Amino Transferase 15 U/L (0-40); Blood Urea Nitrogen 32 mg/dL (8-23); Calcium 9.3 mg/dL (8.5-10.5); Carbon Dioxide 27 mmol/L (22-29); Chloride 93 mmol/L (98-107); Glomerular Filtration Rate 12.4 mL/min (90-130); Glucose 351 mg/dL (65-115); Osmolality Calculated 301 mOsm/kg (285-295); Potassium 3.9 mmol/L (3.5-5.1); Sodium 135 mmol/L (136-145); Total Bilirubin 0.5 mg/dL (0.15-1.2); Total Protein 6.7 g/dL (6.6-8.7)
[2020-09-01 09:41] LABS: Troponin(5th) Baseline 209 ng/L (0-15)
--- NOTE | 2020-09-01 09:42 | PC.NURSE ---
Critical Baseline Troponin [address] White.
[2020-09-01] MEDS: nitroglycerin 1 gm/inch oint Pkt 0.5 INCH TOPICAL (09:51)
[2020-09-01] MEDS: aspirin 81 mg Chew Tablet 243 MG PO (09:54)
--- NOTE | 2020-09-01 09:57 | PC.NURSE ---
While in patients room, patient verbalized to this nurse that his right leg was going numb and moving up towards his right arm. Patient is concerned stated that it started in his left arm and now spreading to his right arm. Provider notified concerning the patients complaints.
--- NOTE | 2020-09-01 11:02 | ECG_ITS ---
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 Measurements Intervals [place] Rate: 79 P: CT: QRS: 9 QRSD: 101 T: 44 QT: 432 QTc: 496 Interpretive Statements ATRIAL FIBRILLATION MINIMAL VOLTAGE CRITERIA FOR LVH, CONSIDER NORMAL VARIANT [MEETS CRITERIA IN ONE OF: R(aVL), S(V1), R(V5), R(V5/V6)+S(V1)] POSSIBLE ANTERIOR MYOCARDIAL INFARCTION [30 ms Q WAVE IN V3/V4, OR R < 0.2 mV IN V4], PROBABLY OLD ABNORMAL RHYTHM ECG Compared to ECG 09/01/2020 09:03:59 No significant changes Electronically Signed On 09-01-2020 21:59:46 CDT by Daryl Ashraf M.D. [id number] preeti
[2020-09-01 12:20] LABS: Troponin 5 2HR 186.8 ng/L (0-15); Troponin 5 2HR Delta -22.2 ABS# (0-10)
== END 2020-09-01 14:18 | disposition home or self-care (01) ==
PROVIDERS: Emergency Provider Family Medicine; PCP Family Medicine
DX: I99.8 Other disorder of circulatory system (principal); I13.2 Hypertensive heart and chronic kidney disease with heart failure and with stage 5 chronic kidney disease, or end stage renal disease; E13.22 Other specified diabetes mellitus with diabetic chronic kidney disease; N18.6 End stage renal disease; I50.9 Heart failure, unspecified; Z99.2 Dependence on renal dialysis; Z86.73 Personal history of transient ischemic attack (TIA), and cerebral infarction without residual deficits; E78.5 Hyperlipidemia, unspecified; I25.2 Old myocardial infarction; Z87.891 Personal history of nicotine dependence; Z79.82 Long term (current) use of aspirin; Z79.02 Long term (current) use of antithrombotics/antiplatelets; Z79.4 Long term (current) use of insulin
CPT/HCPCS: 36415; 70450; 71045; 80053; 84484; 85025; 93005; 99284

== ENCOUNTER → 2020-09-21 14:52 | Outpatient (BNVA) | payer MEDICARE, SELFPAY | PROVIDERS: PCP Family Medicine; Visit Provider Family Medicine | DX: E13.9 Other specified diabetes mellitus without complications (principal); N18.5 Chronic kidney disease, stage 5 | CPT/HCPCS: 83036 ==

== ENCOUNTER 2020-10-19 06:38 | Outpatient (CLI) | payer MEDICARE, SELFPAY ==
[2020-10-19 07:02] VITALS: BMI 31.6
--- NOTE | 2020-10-19 07:04 | ECG_ITS ---
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 Interpretive Statements NAME OF STUDY: LEXISCAN SESTAMIBI STRESS TEST INDICATION: [NONSTEMI] Procedure: At the baseline, the blood pressure was 162/84 mmHg with a heart rate of 50 bpm. The electrocardiogram showed sinus bradycardia, normal axis with normal ST and T's. The Lexiscan was infused over a period of 20 seconds. A total of 0.4 mg of Lexiscan was infused. The stress phase was continued for a total of 5 minutes. Heart rate was at the end of stress phase was 65 bpm and a blood pressure of 146/68 mmHg. The EKG at the peak infusion revealed since normal sinus rhythm with no significant ST-T wave changes. Sestamibi was injected 20 seconds after the Lexiscan infusion. Blood pressure at the end of recovery phase was 157/73 mmHg with a heart rate of 64 bpm. Conclusion: 1. Normal EKG response to Lexiscan infusion 2. No Lexiscan induced chest pain or cardiac arrhythmia. 3. Normal blood pressure and heart rate response. 4. Sestamibi/sestamibi perfusion scan pending; see separate report. Electronically Signed On 11-14-2020 15:31:19 CDT by Daryl Ashraf M.D. [id number]
--- NOTE | 2020-10-19 07:06 | NMCV_ITS ---
NM radha perf SPECT r/s* [id number] Eliazar Hogan Age: 70 Gender: M : 1950 Exam Date: 10/19/2020 07:57 Ordering Phys: Daryl Ashraf M.D ([email or web address]) Technologist: ANGIE Gonsalves Exam Location: [facility] Indications: NSTEMI STRESS TEST Please see separate stress test report in [facility] for full findings IMAGE PROTOCOL Rest/Stress 1 Lexiscan Day Radiopharmaceutical Dose (mCi) Administration Site Administered by Rest: Tc-99m 10.7 IV ANGIE Mann Sestamibi Stress:Tc-99m 32.4 IV ANGIE Mann Sestamibi Rest: 19-Oct-2020 60 Discovery 630 Stress: 19-Oct-2020 30 Discovery 630 0.4mg Lexiscan. Images obtained in supine and prone position. SPECT RESULTS Technical Quality: Excellent Raw Data Analysis: Normal Image Corrections: No attenuation or motion correction applied Summed Stress Score: 2 Summed Rest Score: 1 Summed Difference Score: 2 PERFUSION FINDINGS There is a small in size reversible perfusion defect in the apical, apical lateral and mid lateral mosqueda. This is consistent with ischemia in these territories. FUNCTIONAL RESULTS (calculated via Gated SPECT) Stress Image LV EF (%): 73 Stress EDV (mL):139 TID: 1.05 Stress ESV (mL):38 FUNCTIONAL FINDINGS: There is normal left ventricular systolic function. IMPRESSIONS 1. Abnormal myocardial perfusion imaging with ischemia noted in the apical, apical lateral and lateral mosqueda 2. LV systolic function is normal Daryl Ashraf MD (Electronically Signed) Final Date: 21 October 2020 20:06 S
[2020-10-19] MEDS: regadenoson 0.4 Mg/5 ml Syringe IVP (08:58)
[2020-10-19 09:15] VITALS: BP 128/58; PULSE 71
== END 2020-10-19 06:39 | disposition home or self-care (01) ==
PROVIDERS: PCP Family Medicine; Visit Provider Internal Medicine
DX: I21.4 Non-ST elevation (NSTEMI) myocardial infarction (principal)
CPT/HCPCS: 78452; 93017; A9500; J2785

== ENCOUNTER 2020-10-19 12:43 | Emergency (ER) | payer MEDICARE, SELFPAY ==
[2020-10-19 13:15] VITALS: BP 119/67; PULSE 53; RESP 16; TEMP 36.7; O2SAT 93; BMI 31.6
--- NOTE | 2020-10-19 13:42 | XR_ITS ---
WS: [id number] Portable AP upright chest, 10/19/2020 Clinical Data: reduced breath sounds Comparison: Portable chest, 09/01/2020. Findings: No nodules, masses or effusions are seen. The heart is enlarged. The pulmonary vascularity is not increased. No pneumonia or pneumothorax is seen. The aortic arch and descending aorta are tort uous. There is a right dialysis catheter unchanged in position. The patient has had a posterior thora cic fusion with bilateral pedicle screws and connecting rods. There is sclerosis of the right lateral scapula involving the glenoid which may represent Paget's disease and has not changed. XR/XR chest 1V portable [id number] Impression: Cardiomegaly and atherosclerosis.
--- NOTE | 2020-10-19 13:43 | ECG_ITS ---
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 Measurements Intervals [place] Rate: 55 P: 56 [place]: 264 QRS: 8 QRSD: 107 T: 43 QT: 456 QTc: 438 Interpretive Statements SINUS BRADYCARDIA WITH FIRST DEGREE AV BLOCK WITH OCCASIONAL SUPRAVENTRICULAR PREMATURE COMPLEXES Compared to ECG 09/01/2020 11:20:10 First degree AV block now present Atrial fibrillation no longer present Myocardial infarct finding no longer present Electronically Signed On 10-19-2020 20:28:10 CDT by Daryl Ashraf M.D. [id number]
[2020-10-19 14:29] LABS: Basophils # 0.1 10^3/uL (0.0-0.1); Basophils % 0.7 %; Eosinophils # 0.3 10^3/uL (0.0-0.8); Eosinophils % 3.3 %; Hematocrit 34.9 % (42.0-52.0); Hemoglobin 10.9 g/dL (11.7-16.6); Lymphocytes # 0.9 10^3/uL (0.8-4.8); Lymphocytes % 9.5 %; Mean Corpuscular HGB Conc 31.2 g/dL (30.0-36.0); Mean Corpuscular Hemoglobin 28.5 pg (28.0-34.0); Mean Corpuscular Volume 91.4 fL (80-94); Monocytes # 0.9 10^3/uL (0.2-0.9); Monocytes % 9.3 %; Neutrophils # 7.37 10^3/uL (1.8-7.7); Neutrophils % 76.8 %; Nucleated Red Blood Cells % 0 %; Platelet Count 178 10^3/cmm (130-400); Red Blood Count 3.82 10^6/uL (4.1-5.3); Red Cell Distribution Width 15.1 % (12.1-15.1); White Blood Count 9.6 10^3/uL (4.0-10.0)
[2020-10-19 14:42] LABS: Alanine Aminotransferase 8 U/L (0-41); Alkaline Phosphatase 234 IU/L (40-130); Anion Gap 16.2 (5-19); Aspartate Amino Transferase 10 U/L (0-40); Blood Urea Nitrogen 27 mg/dL (8-23); Calcium 8.8 mg/dL (8.5-10.5); Carbon Dioxide 29 mmol/L (22-29); Chloride 95 mmol/L (98-107); Creatine Phosphokinase 50 U/L (39-308); Globulin 2.5 g/dL (1.3-4.6); Glomerular Filtration Rate 12.7 mL/min (90-130); Glucose 184 mg/dL (65-115); Osmolality Calculated 292 mOsm/kg (285-295); Potassium 4.2 mmol/L (3.5-5.1); Sodium 136 mmol/L (136-145); Total Bilirubin 0.6 mg/dL (0.15-1.2); Total Protein 6.5 g/dL (6.6-8.7)
[2020-10-19 14:45] LABS: Troponin(5th) Baseline 113 ng/L (0-15)
[2020-10-19 15:17] VITALS: BP 182/86; RESP 15; O2SAT 92
--- NOTE | 2020-10-19 15:43 | ECG_ITS ---
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 Measurements Intervals [place] Rate: 58 P: 32 CT: 296 QRS: 3 QRSD: 98 T: 33 QT: 421 QTc: 414 Interpretive Statements SINUS BRADYCARDIA WITH FIRST DEGREE AV BLOCK Compared to ECG 10/19/2020 15:11:41 No significant changes Electronically Signed On 10-19-2020 20:37:36 CDT by Daryl Ashraf M.D. [id number]
[2020-10-19 17:30] LABS: Troponin 5 2HR 105.1 ng/L (0-15); Troponin 5 2HR Delta -7.9 ABS# (0-10)
[2020-10-19 18:33] LABS: Add Urine Microscopic? NO; Charge for UA Resulting for Rev
--- NOTE | 2020-10-19 19:01 | W.ED.GENADLT ---
HPI - General Adult General: Chief complaint: General Medical Stated complaint: low blood preassure, stress test done this AM Time Seen by Provider: 10/19/20 13:33 History of Present Illness: HPI narrative: The patient is a 70-year-old male dialysis patient who started dialysis a few months ago comes to the ER complaining of low blood pressure and dizziness at home. He says he had a stress test this morning and when he got home he started to feel dizzy and checked his blood pressure and it was ranging from the 70s to 90s systolic. He came to the ER and had a normal blood pressure of 119/67 and is asymptomatic. Associated symptoms: Deny chest pain, confusion, dyspnea, headache(s), rash or palpitations Review of Systems General: Reports: 10 or more systems reviewed and unremarkable except in HPI and below Const: Denies: fatigue Eyes: Denies: change in vision, blurry vision or eye redness ENMT: Denies: throat pain, swelling of lips/tongue, ear or mastoid pain or nasal congestion Card: Denies: chest pain, palpitations, irregular heart rhythm, edema, dyspnea on exertion or orthopnea Resp: Denies: dyspnea, productive cough or non-productive cough GI: Denies: abdominal pain, diarrhea or GI cramping : Denies: flank pain, urinary frequency or urinary urgency Musc: Denies: neck pain, back pain, extremity pain, joint pain, joint redness, limited range of motion or muscle weakness Skin/Breast: Denies: rash, pruritus, erythema, skin pain or skin tenderness Neuro: Denies: headache(s), numbness in extremities, weakness in extremities, sensory changes, difficulty walking, dizziness, confusion or Slurred speech present Psych: Denies: anxiety or depression Endo: Denies: polyuria All/Imm: Denies: urticaria, throat swelling or tongue swelling PFSH ED PFSH: Medical History Acute kidney injury superimposed on CKD Anemia ASHD (arteriosclerotic heart disease) Carotid stenosis, bilateral Chronic back pain Chronic kidney disease (CKD) Chronic kidney disease (CKD) stage G5/A1, glomerular filtration rate (GFR) less than or equal to 15 mL/min/1.73 square meter and albuminuria creatinine ratio less than 30 mg/g Congestive 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 CVA (cerebral vascular accident) Diabetes 1.5, managed as type 2 Dyslipidemia Essential hypertension History of 2019 novel coronavirus disease (COVID-19) Hypothyroidism Myocardial infarction KAITLYNN (obstructive sleep apnea) Surgical History Hx of cholecystectomy Previous back surgery S/P angioplasty with stent S/P cataract extraction S/P hemodialysis catheter insertion Family History Mother CAD (coronary artery disease) Stroke Sister Hypertension Social History Smoking and tobacco status: former smoker Alcohol intake: never Household members: spouse Marital status: service: Yes branch: [employer] Current occupational status: employed Current occupation: [employer] History of recent travel: No Current gender identity: Male Physical Exam Const: COMMON NORMALS: no acute distress, average body habitus, patient oriented x3, no limitations, healthy appearing, alert and well nourished GENERAL APPEARANCE: cooperative, comfortable, well kempt and well developed ORIENTATION/CONSCIOUSNESS: Yes awake, Yes oriented to person, Yes oriented to place and Yes oriented to time HENMT: COMMON NORMALS: normocephalic, external ears normal and Normal external nose present HEAD & SCALP: normal to inspection and normocephalic NOSE: Normal external nose present EXTERNAL EAR: Yes external ears normal MOUTH: Normal oral and palatal mucosa present THROAT: posterior oropharynx normal Eye: COMMON NORMALS: Equal, round and reactive pupils present and EOMs intact bilaterally GENERAL EYE: appearance normal, both eyes and all related structures PUPIL: Yes Equal, round and reactive pupils present Neck/C-Spine: COMMON NORMALS: full ROM, no lymphadenopathy, no meningeal signs and no JVD GENERAL: Yes normal visual inspection Lymph: LYMPHATIC: no lymphadenopathy noted Chest: COMMONS NORMALS: normal inspection of the chest and normal palpation of entire chest wall OTHER: Tunneled cath present and normal appearing. Resp: COMMON NORMALS: normal respiratory effort, No retractions, No use of accessory muscles, clear to auscultation bilaterally and percussion normal EFFORT & INSPECTION: Yes able to speak in complete sentences AUSCULTATION: clear to auscultation bilaterally PERCUSSION: percussion normal Cardio: COMMON NORMALS: no JVD, regular rate, regular rhythm, S1 normal heart sound present, S2 normal heart sound present and Peripheral pulses 2+ throughout RATE: regular rate RHYTHM: regular rhythm HEART SOUNDS: S1 normal heart sound present and S2 normal heart sound present PERIPHERAL PULSES: Peripheral pulses 2+ throughout GI: COMMON NORMALS: Normal to inspection, nondistended, normoactive bowel sounds present, Soft to palpation, non-tender and no masses INSPECTION: Yes normal to inspection PALPATION: Yes Soft to palpation : COMMON NORMALS: Yes no CVA tenderness BLADDER/KIDNEY EXAM: Yes no CVA tenderness Back/Pelvis: COMMON NORMALS: no CVA tenderness, thoracic and lumbar spine normal to inspection, no thoracic nor lumbar tenderness and thoraco-lumbar ROM normal Extremity: COMMON NORMALS: normal to inspection, full ROM, capillary refill normal, no joint enlargement and no pedal edema GENERAL: Yes normal exam except as noted Neuro: COMMON NORMALS: patient oriented x3, CN's II-XII intact bilaterally, moves all extremities, no focal motor deficits, no sensory deficits noted and gait normal SENSORIUM/ORIENTATION: Yes alert, Yes oriented to person, Yes oriented to place and Yes oriented to time MENINGEAL SIGNS: Yes no meningeal signs Psych: COMMON NORMALS: mental status grossly normal, Normal thought process present, cooperative, normal affect and speech normal APPEARANCE: Yes well kempt ATTITUDE: Yes calm SPEECH: Yes normal speech THOUGHT PROCESS: Normal thought process present Skin: COMMON NORMALS: no rashes or lesions noted GENERAL SKIN EXAM: no rashes or lesions noted Course Vital Signs: Vital signs: Vital Signs Temperature 98.1 F 10/19/20 13:15 Pulse Rate 60 10/19/20 19:19 Respiratory Rate 15 10/19/20 19:19 Blood Pressure 180/94 10/19/20 19:19 Pulse Oximetry 94 10/19/20 19:19 MDM - General Adult MDM Narrative: Medical decision making narrative: Because of the patient's symptoms and hypotensive episodes are unknown but likely related to his recent starting of dialysis. He is also on blood pressure medications and has stopped amlodipine. Recommended he continue to check his blood pressure and return to the ER with any hypotensive episodes. He says his symptoms have resolved since arriving and he feels much better. He got dialysis yesterday and took his blood pressure medicines this morning and had a stress test which is possibly a reason for his hypotension though it is certainly gone and he has normal blood pressure here and is asymptomatic. I recommended he follow-up with primary care physician in a couple days and return to ER with worsening symptoms. I talked to Dr. Ashraf who recommended outpatient cardiology follow-up and the patient will do so. Lab Data: Labs: Lab Results 10/19/20 10/19/20 10/19/20 Range/Units 14:10 14:10 14:10 WBC 9.6 (4.0-10.0) 10^3/ uL RBC 3.82 L (4.1-5.3) 10^6/u L Hgb 10.9 L (11.7-16.6) g/dL Hct 34.9 L (42.0-52.0) % MCV 91.4 (80-94) fL MCH 28.5 (28.0-34.0) pg MCHC 31.2 (30.0-36.0) g/dL RDW 15.1 (12.1-15.1) % Plt Count 178 (130-400) 10^3/c mm MPV 10.0 (7.4-10.4) fL Neut % (Auto) 76.8 % Lymph % (Auto) 9.5 % [place] % (Auto) 9.3 % Eos % (Auto) 3.3 % Baso % (Auto) 0.7 % Neut # (Auto) 7.37 (1.8-7.7) 10^3/u L Lymph # (Auto) 0.9 (0.8-4.8) 10^3/u L [place] # (Auto) 0.9 (0.2-0.9) 10^3/u L Eos # (Auto) 0.3 (0.0-0.8) 10^3/u L Baso # (Auto) 0.1 (0.0-0.1) 10^3/u L Nucleated RBC % (a uto) 0 % Nucleated RBCs # 0.0 /100WBC Sodium 136 (136-145) mmol/L Potassium 4.2 (3.5-5.1) mmol/L Chloride 95 L (98-107) mmol/L Carbon Dioxide 29 (22-29) mmol/L Anion Gap 16.2 (5-19) BUN 27 H (8-23) mg/dL Creatinine 4.6 H (0.7-1.2) mg/dL GFR Calculation 12.7 L (90-130) mL/min Glucose 184 H (65-115) mg/dL Calculated Osmolal ity 292 (285-295) mOsm/k g Calcium 8.8 (8.5-10.5) mg/dL Total Bilirubin 0.6 (0.15-1.2) mg/dL AST 10 (0-40) U/L ALT 8 (0-41) U/L Alkaline Phosphata se 234 H (40-130) IU/L Creatine Kinase 50 (39-308) U/L Troponin T Baselin e 113 H* (0-15) ng/L Troponin T 120 Min [place] (0-15) ng/L Delta Troponin T (0-10) ABS# Total Protein 6.5 L (6.6-8.7) g/dL Albumin 4.0 (3.5-5.2) g/dL Globulin 2.5 (1.3-4.6) g/dL Urine Color (Yellow) Urine Appearance (CLEAR) Urine pH (5-7) Ur Specific Gravit y (1.005-1.030) Urine Protein (Negative) Urine Glucose (UA) (Normal) Urine Ketones (Negative) Urine Blood (Negative) Urine Nitrate (Negative) Urine Bilirubin (Negative) Urine Urobilinogen (Negative) mg/dL Ur Leukocyte Amelia ase (Negative) 10/19/20 10/19/20 Range/Units 16:52 17:40 WBC (4.0-10.0) 10^3/ uL RBC (4.1-5.3) 10^6/u L Hgb (11.7-16.6) g/dL Hct (42.0-52.0) % MCV (80-94) fL MCH (28.0-34.0) pg MCHC (30.0-36.0) g/dL RDW (12.1-15.1) % Plt Count (130-400) 10^3/c mm MPV (7.4-10.4) fL Neut % (Auto) % Lymph % (Auto) % [place] % (Auto) % Eos % (Auto) % Baso % (Auto) % Neut # (Auto) (1.8-7.7) 10^3/u L Lymph # (Auto) (0.8-4.8) 10^3/u L [place] # (Auto) (0.2-0.9) 10^3/u L Eos # (Auto) (0.0-0.8) 10^3/u L Baso # (Auto) (0.0-0.1) 10^3/u L Nucleated RBC % (a uto) % Nucleated RBCs # /100WBC Sodium (136-145) mmol/L Potassium (3.5-5.1) mmol/L Chloride (98-107) mmol/L Carbon Dioxide (22-29) mmol/L Anion Gap (5-19) BUN (8-23) mg/dL Creatinine (0.7-1.2) mg/dL GFR Calculation (90-130) mL/min Glucose (65-115) mg/dL Calculated Osmolal ity (285-295) mOsm/k g Calcium (8.5-10.5) mg/dL Total Bilirubin (0.15-1.2) mg/dL AST (0-40) U/L ALT (0-41) U/L Alkaline Phosphata se (40-130) IU/L Creatine Kinase (39-308) U/L Troponin T Baselin e (0-15) ng/L Troponin T 120 Min [place] 105.1 H (0-15) ng/L Delta Troponin T -7.9 L (0-10) ABS# Total Protein (6.6-8.7) g/dL Albumin (3.5-5.2) g/dL Globulin (1.3-4.6) g/dL Urine Color Yellow (Yellow) Urine Appearance Clear (CLEAR) Urine pH 5 (5-7) Ur Specific Gravit y 1.010 (1.005-1.030) Urine Protein Trace (Negative) Urine Glucose (UA) Norm (Normal) Urine Ketones Negative (Negative) Urine Blood Neg (Negative) Urine Nitrate Negative (Negative) Urine Bilirubin 1+ H (Negative) Urine Urobilinogen Norm (Negative) mg/dL Ur Leukocyte Amelia ase Negative (Negative) Discharge Plan Discharge Patient Disposition: Home Clinical Impression: Transient hypotension, Dialysis patient Condition: Stable Prescriptions: No Action escitalopram oxalate 10 mg tablet 10 mg PO DAILY@05 RF: 0 isosorbide mononitrate 60 mg tablet extended release 24 hr 60 mg PO DAILY@05 RF: 0 hydralazine 100 mg tablet 100 mg PO BID RF: 0 levothyroxine 25 mcg capsule 25 mcg PO DAILY@05 RF: 0 pantoprazole 40 mg tablet,delayed release (DR/EC) 40 mg PO DAILY@0500 RF: 0 terazosin 10 mg capsule 10 mg PO BID@05,18 RF: 0 nitroglycerin [Nitrostat] 0.4 mg tablet, sublingual 0.4 mg SUBLINGUAL Q5M PRN (Reason: Chest Pain) RF: 0 acetaminophen [Tylenol Extra Strength] 500 mg tablet 1,000 mg PO Q6H PRN (Reason: Pain) RF: 0 allopurinol 300 mg tablet 300 mg PO DAILY@1800 RF: 0 Novolog Flexpen U-100 Insulin 100 unit/mL (3 mL) insulin pen See Rx Instructions .ROUTE .COMPLEX Qty: 15 RF: 0 (DME) Diabetic Shoes See Rx Instructions .ROUTE .MEDSUPPLY Qty: 1 RF: 0 furosemide 40 mg tablet 80 mg PO BID@0500,1800 PRN (Reason: Edema) RF: 0 atorvastatin 40 mg tablet 40 mg PO DAILY@0500 RF: 0 sevelamer carbonate 800 mg tablet 1,600 mg PO BID RF: 0 clopidogrel 75 mg tablet 75 mg PO DAILY@0500 RF: 0 aspirin 81 mg tablet,delayed release (DR/EC) 81 mg PO DAILY@0500 RF: 0 lisinopril 5 mg tablet 5 mg PO DAILY@1800 RF: 0 insulin detemir U-100 100 unit/mL (3 mL) insulin pen 8 unit SUBCUT BID RF: 0 metoprolol tartrate 75 mg tablet 75 mg PO BID@0500,1800 RF: 0 Discharge Orders: Discharge ED (Routine); Ordered 10/19/20 Ordered By: Ricki Dubon Referrals: Carlee Carreon DO [Primary Care Provider] - Discharge Diet: Advance as tolerated Discharge Activity: Resume usual activity Patient Instructions: Hypotension (ED), Opioid Safety Activity Restrictions/Additional Instructions: You are having episodes of hypotension that come and go. This morning's episode was after a stress test. The cause of them are unclear but when you are on dialysis there is a great change in the amount of fluid in your body after dialysis and often your blood pressure will be low after. If your blood pressure is significantly low or you are dizzy please return to the ER. Follow-up with your primary care physician in a couple days to discuss further. Continue to follow-up with cardiology as well in a week. Coding Level of Care Code ED [place] for Les Fuentes
[2020-10-19 19:19] VITALS: BP 180/94; PULSE 60; RESP 15; O2SAT 94
[2020-10-19 19:22] LABS: Bilirubin Urine 1+ (Negative); Blood Urine Neg (Negative); Glucose Urine UA Norm (Normal); Ketones Urine Negative (Negative); Leukocyte Esterase Urine Negative (Negative); Nitrate Urine Negative (Negative); Protein Urine Trace (Negative); Urine Appearance Clear (CLEAR); Urine Color Yellow (Yellow); Urobilinogen Urine Norm (Negative); pH Urine 5 (5-7)
--- NOTE | 2020-10-24 15:24 | DCPLANNER ---
senior safety support manager had message to schedule a follow up appointment for patient with [facility]. senior safety support manager called [facility], spoke with Radha, gave clinic patients information. A follow up appointment was scheduled for Friday, October 30, 2020 at 9:45 with RISK SPECIALIST, Luciana Bergman. senior safety support manager called patient and gave patient the appointment information. Patient stated that he would attend the appointment.
--- NOTE | 2020-11-16 08:17 | DCPLANNER ---
Patient had a follow up appointment scheduled with heart care - patient did attend appointment.
== END 2020-10-19 19:21 | disposition home or self-care (01) ==
PROVIDERS: Emergency Provider Family Medicine; PCP Family Medicine
DX: I95.89 Other hypotension (principal); Z99.2 Dependence on renal dialysis; Z87.891 Personal history of nicotine dependence; N18.9 Chronic kidney disease, unspecified; I13.0 Hypertensive heart and chronic kidney disease with heart failure and stage 1 through stage 4 chronic kidney disease, or unspecified chronic kidney disease; I50.9 Heart failure, unspecified; E11.9 Type 2 diabetes mellitus without complications; Z79.82 Long term (current) use of aspirin; Z79.4 Long term (current) use of insulin; I70.90 Unspecified atherosclerosis
CPT/HCPCS: 71045; 80053; 81003; 82550; 84484; 85025; 93005; 99283

== ENCOUNTER 2020-11-09 06:42 | Inpatient (IN) | payer MEDICARE, SELFPAY ==
[2020-11-09] VITALS (11 sets, daily range): BP systolic 130–171; BP diastolic 68–84; PULSE 58–71; RESP 16–18; TEMP 36.6–36.7; O2SAT 93–95; BMI 31.6
--- NOTE | 2020-11-09 06:55 | XR_ITS ---
WS: [id number] Portable AP upright chest, 11/09/2020 Clinical Data: chest pain Comparison: Portable chest, 10/19/2020. Findings: No nodules, masses or effusions are seen. The heart is enlarged. The pulmonary vascularity is not increased. No pneumonia or pneumothorax is seen. The aortic arch shows minimal calcification a nd tortuosity. There is a right dialysis catheter in position. Lower thoracic fusion with bilateral p edicle screws and connecting rods is noted. There is sclerosis of the right glenoid which is stable. Monitor leads are on the chest wall. XR/XR chest 1V portable [id number] Impression: Cardiomegaly.
--- NOTE | 2020-11-09 06:55 | ECG_ITS ---
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 Measurements Intervals [place] Rate: 71 P: 34 VT: 238 QRS: -7 QRSD: 101 T: 54 QT: 402 QTc: 440 Interpretive Statements SINUS RHYTHM WITH FIRST DEGREE AV BLOCK WITH OCCASIONAL SUPRAVENTRICULAR PREMATURE COMPLEXES MINIMAL VOLTAGE CRITERIA FOR LVH, CONSIDER NORMAL VARIANT [MEETS CRITERIA IN ONE OF: R(aVL), S(V1), R(V5), R(V5/V6)+S(V1)] INFERIOR MYOCARDIAL INFARCTION [40+ ms Q WAVE AND/OR ST/T ABNORMALITY IN II/aVF], PROBABLY OLD INTERPRETATION BASED ON A DEFAULT AGE OF 40 YEARS Compared to ECG 10/19/2020 17:52:07 Myocardial infarct finding now present Sinus bradycardia no longer present Electronically Signed On 11-10-2020 14:46:24 CDT by Mohit Albarado M.D. [id number]
--- NOTE | 2020-11-09 07:19 | ED_ITS ---
HPI - Chest Pain General: Chief Complaint: Chest Pain Stated Complaint: chest pain Time Seen by Provider: 11/09/20 06:43 History of Present Illness: HPI narrative: 70-year-old male presents complaining of chest pain radiating into the left arm this began while he was at rest this morning while he was in the day after short time he took some sublingual nitro chest pain resolved. He took 2 total length of the episode was about 30 minutes. On arrival here he is a little bit of chest heaviness but nothing like the sharp pain he had previously which would radiate into his left shoulder and arm. He is somewhat short of breath with it as well and diaphoreti c. Earlier this month he had a positive sestamibi stress test. Not having episodes of chest pain at that time so decided by his car worker helper to treat medically his previous cardiology note reviewed from October 27. Since that time he is been developing chest pain not always associated with exertion his last episode was a week ago [place] today. Patient is also diabetic and he has end- stage renal disease gets dialysis Fridays. 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 Onset (ago): hour(s) Timing of current episode: episodic Prior episodes: Yes Onset: during rest Pain location: left chest Pain radiation: left arm and left shoulder Severity: moderate Quality: tightness and heaviness Relieving factors: nitroglycerin Exacerbating factors: exertion Associated symptoms: Deny abdominal pain, diaphoresis, dyspnea, fever(s), leg edema, nausea, palpitations, sense of impending doom, syncope or vomiting Treatment prior to arrival: nitroglycerin Review of Systems Const: Denies: fever(s) or diaphoresis Card: Denies: palpitations or syncope Resp: Denies: dyspnea GI: Denies: abdominal pain, nausea or vomiting PFS ED PFSH: Medical History Acute kidney injury superimposed on CKD Anemia ASHD (arteriosclerotic heart disease) Carotid stenosis, bilateral Chronic back pain Chronic kidney disease (CKD) Chronic kidney disease (CKD) stage G5/A1, glomerular filtration rate (GFR) less than or equal to 15 mL/min/1.73 square meter and albuminuria creatinine ratio less than 30 mg/g Congestive 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 CVA (cerebral vascular accident) Diabetes 1.5, managed as type 2 Dyslipidemia Essential hypertension History of 2019 novel coronavirus disease (COVID-19) Hypothyroidism Myocardial infarction KAITLYNN (obstructive sleep apnea) Surgical History Hx of cholecystectomy Previous back surgery S/P angioplasty with stent S/P cataract extraction S/P hemodialysis catheter insertion Family History Mother CAD (coronary artery disease) Stroke Sister Hypertension Social History Smoking and tobacco status: never smoked Alcohol intake: never Household members: spouse Marital status: service: Yes branch: [employer] Current occupational status: employed Current occupation: [employer] History of recent travel: No Current gender identity: Male Physical Exam Const: COMMON NORMALS: no acute distress GENERAL APPEARANCE: cooperative and comfortable ORIENTATION/CONSCIOUSNESS: Yes awake, Yes oriented to person, Yes oriented to place and Yes oriented to time HENMT: COMMON NORMALS: normocephalic, atraumatic and hearing grossly normal bilaterally HEAD & SCALP: normocephalic and atraumatic Neck/C-Spine: COMMON NORMALS: no JVD Resp: COMMON NORMALS: normal respiratory effort, No retractions, No use of accessory muscles and clear to auscultation bilaterally AUSCULTATION: clear to auscultation bilaterally Cardio: COMMON NORMALS: no JVD, regular rate, regular rhythm and No murmurs present (Cardio) RATE: regular rate RHYTHM: regular rhythm GI: COMMON NORMALS: Soft to palpation and No hepatosplenomegaly present AUSCULTATION: Yes normoactive bowel sounds PALPATION: Yes Soft to palpation, No Tenderness to palpation present (GI), No Guarding due to palpation present (GI) and Yes No hepatosplenomegaly present Extremity: COMMON NORMALS: normal to inspection, capillary refill normal, no clubbing, cyanosis or edema, no calf tenderness and no pedal edema Neuro: SENSORIUM/ORIENTATION: Yes oriented to person, Yes oriented to place and Yes oriented to time Skin: COMMON NORMALS: no rashes or lesions noted GENERAL SKIN EXAM: no rashes or lesions noted Course Vital Signs: Vital signs: Vital Signs Temperature 97.9 F 11/09/20 06:47 Pulse Rate 60 11/09/20 08:12 Respiratory Rate 18 11/09/20 08:12 Blood Pressure 159/78 11/09/20 08:12 Pulse Oximetry 94 11/09/20 08:12 MDM - Chest Pain MDM Narrative: Medical decision making narrative: Discussed with the hospitalist and with cardiology. Cardiology is recommending we admit for complete rule out and then further evaluation he will likely need to have another angiogram. Lab Data: Labs: Lab Results 11/09/20 11/09/20 11/09/20 Range/Units 07:09 07:09 07:09 WBC 12.5 H (4.0-10.0) 10^3/ uL RBC 3.90 L (4.1-5.3) 10^6/u L Hgb 11.2 L (11.7-16.6) g/dL Hct 36.3 L (42.0-52.0) % MCV 93.1 (80-94) fL MCH 28.7 (28.0-34.0) pg MCHC 30.9 (30.0-36.0) g/dL RDW 15.7 H (12.1-15.1) % Plt Count 254 (130-400) 10^3/c mm MPV 9.8 (7.4-10.4) fL Neut % (Auto) 79.2 % Lymph % (Auto) 7.8 % [place] % (Auto) 6.9 % Eos % (Auto) 3.8 % Baso % (Auto) 1.1 % Neut # (Auto) 9.90 H (1.8-7.7) 10^3/u L Lymph # (Auto) 1.0 (0.8-4.8) 10^3/u L [place] # (Auto) 0.9 (0.2-0.9) 10^3/u L Eos # (Auto) 0.5 (0.0-0.8) 10^3/u L Baso # (Auto) 0.1 (0.0-0.1) 10^3/u L Nucleated RBC % (a uto) 0 % Nucleated RBCs # 0.0 /100WBC Sodium 136 (136-145) mmol/L Potassium 4.8 (3.5-5.1) mmol/L Chloride 95 L (98-107) mmol/L Carbon Dioxide 25 (22-29) mmol/L Anion Gap 20.8 H (5-19) BUN 29 H (8-23) mg/dL Creatinine 3.9 H (0.7-1.2) mg/dL GFR Calculation 15.4 L (90-130) mL/min Glucose 394 H (65-115) mg/dL Calculated Osmolal ity 304 H (285-295) mOsm/k g Calcium 8.7 (8.5-10.5) mg/dL Total Bilirubin 0.3 (0.15-1.2) mg/dL AST 17 (0-40) U/L ALT 16 (0-41) U/L Alkaline Phosphata se 262 H (40-130) IU/L Troponin T Baselin e 126 H* (0-15) ng/L Total Protein 6.2 L (6.6-8.7) g/dL Albumin 3.7 (3.5-5.2) g/dL Globulin 2.5 (1.3-4.6) g/dL Discharge Plan Discharge Patient Disposition: Admitted As Inpatient Clinical Impression: Unstable angina pectoris, CAD (coronary artery disease), Diabetes mellitus, ESRD (end stage renal disease) Condition: Stable Prescriptions: No Action pantoprazole 40 mg tablet,delayed release (DR/EC) 40 mg PO DAILY@0500 RF: 0 terazosin 10 mg capsule 10 mg PO BID@05,18 RF: 0 nitroglycerin [Nitrostat] 0.4 mg tablet, sublingual 0.4 mg SUBLINGUAL Q5M PRN (Reason: Chest Pain) RF: 0 acetaminophen [Tylenol Extra Strength] 500 mg tablet 1,000 mg PO PRN RF: 0 allopurinol 300 mg tablet 300 mg PO DAILY@1800 RF: 0 Novolog Flexpen U-100 Insulin 100 unit/mL (3 mL) insulin pen See Rx Instructions .ROUTE .COMPLEX Qty: 15 RF: 0 (DME) Diabetic Shoes See Rx Instructions .ROUTE .MEDSUPPLY Qty: 1 RF: 0 (DME) Diabetic Shoes See Rx Instructions .ROUTE .MEDSUPPLY Qty: 1 RF: 0 hydralazine 100 mg tablet 100 mg PO PRN RF: 0 furosemide 40 mg tablet 80 mg PO BID@0500,1800 RF: 0 sevelamer carbonate 800 mg tablet 1,600 mg PO BID RF: 0 amlodipine 5 mg Tablet 5 mg PO DAILY RF: 0 levothyroxine 25 mcg Tablet 25 mcg PO DAILY@05 RF: 0 metoprolol tartrate 25 mg Tablet 25 mg PO BID@05,18 RF: 0 clopidogrel 75 mg tablet 75 mg PO DAILY@0500 RF: 0 aspirin 81 mg tablet,delayed release (DR/EC) 81 mg PO DAILY@0500 RF: 0 insulin detemir U-100 100 unit/mL (3 mL) insulin pen 8 unit SUBCUT BID RF: 0 Referrals: Carlee Carreon DO [Primary Care Provider] - Coding Level of Care Code ED Textile Screen Printer for Les Fuentes
[2020-11-09] MEDS: nitroglycerin 1 gm/inch oint Pkt 1 INCH TOPICAL (07:31)
[2020-11-09 07:38] LABS: Basophils # 0.1 10^3/uL (0.0-0.1); Basophils % 1.1 %; Eosinophils # 0.5 10^3/uL (0.0-0.8); Eosinophils % 3.8 %; Hematocrit 36.3 % (42.0-52.0); Hemoglobin 11.2 g/dL (11.7-16.6); Lymphocytes % 7.8 %; Mean Corpuscular HGB Conc 30.9 g/dL (30.0-36.0); Mean Corpuscular Hemoglobin 28.7 pg (28.0-34.0); Mean Corpuscular Volume 93.1 fL (80-94); Mean Platelet Volume 9.8 fL (7.4-10.4); Monocytes # 0.9 10^3/uL (0.2-0.9); Monocytes % 6.9 %; Neutrophils % 79.2 %; Nucleated Red Blood Cells % 0 %; Platelet Count 254 10^3/cmm (130-400); Red Cell Distribution Width 15.7 % (12.1-15.1); White Blood Count 12.5 10^3/uL (4.0-10.0)
[2020-11-09 07:56] LABS: Alanine Aminotransferase 16 U/L (0-41); Albumin Level 3.7 g/dL (3.5-5.2); Alkaline Phosphatase 262 IU/L (40-130); Anion Gap 20.8 (5-19); Aspartate Amino Transferase 17 U/L (0-40); Blood Urea Nitrogen 29 mg/dL (8-23); Calcium 8.7 mg/dL (8.5-10.5); Carbon Dioxide 25 mmol/L (22-29); Chloride 95 mmol/L (98-107); Globulin 2.5 g/dL (1.3-4.6); Glomerular Filtration Rate 15.4 mL/min (90-130); Glucose 394 mg/dL (65-115); Osmolality Calculated 304 mOsm/kg (285-295); Potassium 4.8 mmol/L (3.5-5.1); Sodium 136 mmol/L (136-145); Total Bilirubin 0.3 mg/dL (0.15-1.2); Total Protein 6.2 g/dL (6.6-8.7)
[2020-11-09 08:05] LABS: Troponin(5th) Baseline 126 ng/L (0-15)
--- NOTE | 2020-11-09 08:37 | PC.PHAR ---
pt states he takes care of his own medications-pt brought in med list-pt states he takes the medications entered-[facility] to verify-pt states he use to have a inhaler but hasnt used it for a long time and doesnt have anymore-
--- NOTE | 2020-11-09 08:55 | ECG_ITS ---
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 Measurements Intervals [place] Rate: 55 P: 21 [place]: 259 QRS: -6 QRSD: 104 T: 20 QT: 437 QTc: 420 Interpretive Statements SINUS BRADYCARDIA WITH FIRST DEGREE AV BLOCK Compared to ECG 10/19/2020 17:52:07 No significant changes Electronically Signed On 11-10-2020 14:57:02 CDT by Mohit Albarado M.D. [id number]
[2020-11-09] MEDS: aspirin 81 mg Chew Tablet 324 MG PO (09:35)
--- NOTE | 2020-11-09 10:53 | PC.CHAP ---
Pastoral Care Encounter/Spiritual Assessment Type of Contact [] Declined recreation therapy director visit [] Patient/Family/Request visit [] Outpatient visit [] Follow-up visit [] Physician referral [] Code/Alert [x] Routine visit [] Staff referral [] Actively dying [] Patient sleeping [] Family support [] [] Out of room [] Palliative care [] [x] Receiving care in room [] Pre-surgical visit [] Trauma [] Long length of stay [] ICU visit [] Other: Relational/Emotional Strength [x] Patient feels connected with others/family/visitors/staff [] Distress [] Loneliness/isolation [] Abandonment Spirituality of Patient [x] Person of Zulma [] Attends Bahai of their Zulma [x] Believes in Prayer [] Reads Bible or Amish materials [] There are Spiritual issues to be addressed Riverboat Master Interventions [x] Prayer [x] Active listening [x] Non-anxious presence [x] Spiritual/emotional support [] Crisis/trauma care [x] Spiritual counseling [] Bereavement support [] Provided bereavement packet [] Provided Bible/devotional materials [] Provided toy/stuffed animal, coloring book to patient or family member [] Provided Communion [] Anointing/[place] [] Salvation [x] Completed spiritual assessment [] Other: Impact on Illness or Injury [] Angry [] Fearful [] Anxious [] Often cries [] Exhaustion [] Unable to work [] Unable to attend alevism [] Unable to walk/stand [] Unable to read [] Unable to drive [] Unable to eat/drink [] Unable to sleep [] Unable to be with family [] Patient intubated [] Other: Summary going home had tests and changing meds feels good has a good attitude + Time spent with patient 10 mins
--- NOTE | 2020-11-09 11:35 | P.HP_ITS ---
Providers/Chief Complaint Admitting Physician: Dionte Haddad MD Primary Care Provider: Carlee Carreon DO Chief Complaint: chest pain History of Present Illness Eliazar Hogan is a 70 year old male who presents to the hospital with complaints of chest discomfort he reports is rather sharp and feels like his heart pain. It radiated into his left shoulder and left arm and was associated with nausea but no vomiting. He reports he had diaphoresis. No shortness of breath. Discomfort lasted about 30 minutes and responded partially to 2 sublingual nitroglycerin. Last chest discomfort he had like this was several weeks ago where he took 3 nitroglycerin. He had an abnormal nuclear stress test earlier this month demonstrating reversible ischemia apical and lateral mosqueda. No history of cough or fever. Had Covid in January 2020. Not vaccinated. Review of Systems General: Reports: 10 or more systems reviewed and unremarkable except in HPI and below Const: Denies: fever(s) Eyes: Denies: change in vision ENMT: Denies: throat pain Card: Reports: chest pain Resp: Denies: dyspnea GI: Reports: nausea; Denies: abdominal pain or vomiting : Denies: flank pain Musc: Denies: neck pain Skin/Breast: Denies: rash Neuro: Denies: headache(s) Psych: Denies: anxiety Endo: Denies: polyuria Jermain/Lymph: Denies: easy bruising All/Imm: Denies: urticaria Medications/Allergies Home Medications Medication Instructions Recorded Confirmed Last Taken Type acetaminophen 500 mg tablet 1,000 mg PO PRN 05/05/19 11/09/20 11/09/20 04:30 History 1500 mg nitroglycerin 0.4 mg sublingual 0.4 mg SUBLINGUAL Q5M PRN 05/05/19 11/09/20 11/09/20 05:00 History tablet pantoprazole 40 mg tablet,delayed 40 mg PO DAILY@0500 05/05/19 11/09/20 11/09/20 04:30 History release terazosin 10 mg capsule 10 mg PO BID@05,18 cap 05/05/19 11/09/20 11/09/20 04:30 History allopurinol 300 mg tablet 300 mg PO DAILY@1800 tab 05/06/19 11/09/20 11/08/20 History furosemide 80 mg PO BID@0500,1800 04/24/20 11/09/20 11/09/20 04:30 History insulin aspart U-100 100 unit/mL See Rx Instructions .ROUTE 08/22/20 11/09/20 11/08/20 Rx (3 mL) subcutaneous pen .COMPLEX #15 ml aspirin 81 mg PO DAILY@0500 09/01/20 11/09/20 11/09/20 04:30 History clopidogrel 75 mg PO DAILY@0500 09/01/20 11/09/20 11/09/20 04:30 History insulin detemir U-100 8 unit SUBCUT BID 09/01/20 11/09/20 11/08/20 History Diabetic Shoes #1 ea 09/13/20 11/09/20 Unknown Rx sevelamer carbonate 1,600 mg PO BID 10/19/20 11/09/20 11/09/20 04:30 History Diabetic Shoes #1 ea 10/25/20 11/09/20 Unknown Rx hydralazine 100 mg tablet 100 mg PO PRN tab 10/27/20 11/09/20 Unknown History amlodipine 5 mg PO DAILY 11/09/20 11/09/20 Unknown History levothyroxine 25 mcg PO DAILY@05 11/09/20 11/09/20 11/09/20 04:30 History metoprolol tartrate 25 mg PO BID@05,18 11/09/20 11/09/20 11/09/20 04:30 History Allergies Allergy/AdvReac Type Severity Reaction Status Date / Time chicken derived Allergy Unknown Unknown Verified 11/09/20 06:52 morphine AdvReac Mild dizzy & Verified 11/09/20 06:52 nauseous PFSH Acute PFSH: Medical History Acute kidney injury superimposed on CKD Anemia ASHD (arteriosclerotic heart disease) Carotid stenosis, bilateral Chronic back pain Chronic kidney disease (CKD) Chronic kidney disease (CKD) stage G5/A1, glomerular filtration rate (GFR) less than or equal to 15 mL/min/1.73 square meter and albuminuria creatinine ratio less than 30 mg/g Congestive 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 CVA (cerebral vascular accident) Diabetes 1.5, managed as type 2 Dyslipidemia Essential hypertension History of 2019 novel coronavirus disease (COVID-19) Hypothyroidism Myocardial infarction KAITLYNN (obstructive sleep apnea) Surgical History Hx of cholecystectomy Previous back surgery S/P angioplasty with stent S/P cataract extraction S/P hemodialysis catheter insertion Family History Mother CAD (coronary artery disease) Stroke Sister Hypertension Social History Smoking and tobacco status: never smoked Alcohol intake: never Household members: spouse Marital status: service: Yes branch: [employer] Current occupational status: employed Current occupation: [employer] History of recent travel: No Current gender identity: Male Vitals/I&O/Wt Last Vital Signs Temp 97.9 F 11/09/20 06:47 Pulse 62 11/09/20 10:43 Resp 18 11/09/20 10:43 BP 145/79 11/09/20 10:43 Pulse Ox 94 11/09/20 10:43 Weight last 48 hrs Weight 94.347 kg Physical Exam Narrative: EXAM NARRATIVE: General exam is a white male, currently chest discomfort free. HEENT: Atraumatic and normocephalic. Pupils equally round. Oropharynx clear. Neck is supple no lymphadenopathy or thyromegaly Cardiovascular regular rate and rhythm without murmur. Tunneled dialysis c atheter left chest Lungs clear no wheezing or crackles Abdomen is soft with positive bowel sounds. No obvious organomegaly. exam is deferred Extremities trace edema bilaterally Skin no rash Neuro no obvious focal deficits Data : 11/09/20 07:09 11/09/20 07:09 Other data: EKG demonstrates sinus rhythm, normal axis, Q waves noted in 3. Echocardiogram in July demonstrated EF of 65%, mild mitral regurgitation, 1/4 diastolic dysfunction Chest x-ray shows no infiltrate, cardiomegaly. Calcium 8.7 LFTs normal with exception of alk phos of 262 Initial troponin I 26, 2-hour troponin pending A&P Assessment and plan (1) Chest pain: Patient with significant episode of discomfort this morning he agrees with his heart disease. Initial troponin elevated, but may not be significantly so considering end-stage renal disease on hemodialysis. 2-hour troponin is pending. He is currently chest discomfort free Nitroglycerin ointment Continue aspirin, Plavix, beta-artem. Not sure why he is not maintained on a statin. Will have to clarify prior to starting. He has had a recent nuclear stress test that was abnormal, demonstrating reversible ischemia Cardiology consultation Status: Acute (2) CAD (coronary artery disease): Previously had strep stenting. See above Status: Acute (3) ESRD (end stage renal disease): Nephrology consultation as he is on hemodialysis Status: Acute (4) Diabetes mellitus: Sliding scale insulin Status: Acute (5) Hypothyroidism: Check TSH Status: Acute Additional A&P Information Full code Heparin for DVT prophylaxis Attestations Medical Necessity Statement*: Will require less than 2 midnight stay for evaluation of chest discomfort. Time Spent in Patient Care: Greater than 35 minutes Coding Level of Care Code Acute Internet Webmaster for Chg Fwd Diagnoses Chest pain R07.9 CAD (coronary artery disease) I25.10 ESRD (end stage renal disease) N18.6 Diabetes mellitus E11.9 Hypothyroidism E03.9
--- NOTE | 2020-11-09 12:00 | PC.NURSE ---
Patient received to room from ER alert oriented and in stable condition denies any pain
[2020-11-09 12:04] LABS: Troponin 5 2HR 136.4 ng/L (0-15); Troponin 5 2HR Delta 10.4 ABS# (0-10)
--- NOTE | 2020-11-09 12:32 | P.CONIM_ITS ---
Providers/Reason For Consult Consulting Physician/Specialty*: Lina Bocanegra DO, telenephrology Reason for Consult*: ESRD Attending Physician: Dionte Haddad MD Primary Care Provider: Carlee Carreon DO History of Present Illness History of Present Illness Eliazar Hogan is a 70 year old male admitted with chest pain. ESRD due to diabetes. Had dialysis yesterday; reports mild cramping. No known hypotension. Has been on dialysis for a few months via right IJ tunneled HD catheter. Being evaluated for AVF. Had positive stress test. + Known CAD, coronary stents placed in 2012. Review of Systems General: Reports: Other (currently denies Chest pain, dyspnea, GI, complaints) Meds/Allergies Home Medications and Allergies Home Medications Medication Instructions Recorded Confirmed Last Taken Type acetaminophen 500 mg tablet 1,000 mg PO PRN 05/05/19 11/09/20 11/09/20 04:30 History 1500 mg nitroglycerin 0.4 mg sublingual 0.4 mg SUBLINGUAL Q5M PRN 05/05/19 11/09/20 11/09/20 05:00 History tablet pantoprazole 40 mg tablet,delayed 40 mg PO DAILY@0500 05/05/19 11/09/20 11/09/20 04:30 History release terazosin 10 mg capsule 10 mg PO BID@05,18 cap 05/05/19 11/09/20 11/09/20 04:30 History allopurinol 300 mg tablet 300 mg PO DAILY@1800 tab 05/06/19 11/09/20 11/08/20 History furosemide 80 mg PO BID@0500,1800 04/24/20 11/09/20 11/09/20 04:30 History insulin aspart U-100 100 unit/mL See Rx Instructions .ROUTE 08/22/20 11/09/20 11/08/20 Rx (3 mL) subcutaneous pen .COMPLEX #15 ml aspirin 81 mg PO DAILY@0500 09/01/20 11/09/20 11/09/20 04:30 History clopidogrel 75 mg PO DAILY@0500 09/01/20 11/09/20 11/09/20 04:30 History insulin detemir U-100 8 unit SUBCUT BID 09/01/20 11/09/20 11/08/20 History Diabetic Shoes #1 ea 09/13/20 11/09/20 Unknown Rx sevelamer carbonate 1,600 mg PO BID 10/19/20 11/09/20 11/09/20 04:30 History Diabetic Shoes #1 ea 10/25/20 11/09/20 Unknown Rx hydralazine 100 mg tablet 100 mg PO PRN tab 10/27/20 11/09/20 Unknown History amlodipine 5 mg PO DAILY 11/09/20 11/09/20 Unknown History levothyroxine 25 mcg PO DAILY@05 11/09/20 11/09/20 11/09/20 04:30 History metoprolol tartrate 25 mg PO BID@,11/09/20 11/09/20 11/09/20 04:30 History Allergies Allergy/AdvReac Type Severity Reaction Status Date / Time chicken derived Allergy Unknown Unknown Verified 11/09/20 06:52 morphine AdvReac Mild dizzy & Verified 11/09/20 06:52 nauseous PFSH Acute PFSH: Medical History Acute kidney injury superimposed on CKD Anemia ASHD (arteriosclerotic heart disease) Carotid stenosis, bilateral Chronic back pain Chronic kidney disease (CKD) Chronic kidney disease (CKD) stage G5/A1, glomerular filtration rate (GFR) less than or equal to 15 mL/min/1.73 square meter and albuminuria creatinine ratio less than 30 mg/g Congestive 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 CVA (cerebral vascular accident) Diabetes 1.5, managed as type 2 Dyslipidemia Essential hypertension History of 2019 novel coronavirus disease (COVID-19) Hypothyroidism Myocardial infarction KAITLYNN (obstructive sleep apnea) Surgical History Hx of cholecystectomy Previous back surgery S/P angioplasty with stent S/P cataract extraction S/P hemodialysis catheter insertion Family History Mother CAD (coronary artery disease) Stroke Sister Hypertension Social History Smoking and tobacco status: never smoked Alcohol intake: never Household members: spouse Marital status: service: Yes branch: [employer] Current occupational status: employed 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 ESRD 2. nonSTEMI CO 3. Diabetes 4. Hypertension Recommendation: HD tomorrow. Will be done after cardiac cath if that is planned for tomorrow. 4 h, 2 L UF Consult Attestations Medical Necessity Statement: see above Time Spent in Patient Care: 16 - 35 minutes Coding Level of Care Code Acute Outdoor Illuminating Engineer for Les Fuentes
[2020-11-09 12:39] LABS: Thyroid Stimulating Hormone 2.01 uIU/mL (0.27-4.20)
--- NOTE | 2020-11-09 12:55 | ECG_ITS ---
[facility] Test Date: 2020-11-09 Pat Name: Eliazar Hogan Department: Room: 101 Gender: Male Calibrator Barometers: : 1950 Requested By: Parish Matos Order Number: [id number] Flor MD: Mohit Albarado M.D. Measurements Intervals [place] Rate: 60 P: 27 MN: 266 QRS: -6 QRSD: 101 T: 29 QT: 429 QTc: 429 Interpretive Statements SINUS RHYTHM WITH FIRST DEGREE AV BLOCK POSSIBLE INFERIOR MYOCARDIAL INFARCTION [30 ms Q WAVE IN II/aVF], PROBABLY OLD Compared to ECG 11/09/2020 08:45:29 Myocardial infarct finding now present Sinus bradycardia no longer present Electronically Signed On 11-10-2020 14:58:00 CDT by Mohit Albarado M.D. [id number]
[2020-11-09 13:05] LABS: Glucose Point of Care 320 mg/dL (70-110)
--- NOTE | 2020-11-09 13:08 | PM.CONSULT ---
Providers/Reason For Consult Consulting Physician/Specialty*: TONYA Albarado MD/ Cardiology Reason for Consult*: Patient with chest pain and history of coronary artery disease Attending Physician: Dionte Haddad MD Primary Care Provider: Carlee Carreon DO History of Present Illness History of Present Illness Eliazar Hogan is a 70 year old male with a history of coronary disease, status post myocardial infarction, status post PCI in 2013, is present with complaints of prolonged he described as a severe/sharp pain in the upper substernal region, radiated to the left shoulder and also the left arm. He had associated shortness of breath, nausea, sweating. He took 2 sublingual nitro at 5 minutes interval. This patient had a myocardial infarction in 2012. He had a cardiac catheterization followed by PCI at that time. Since then, he has been doing okay up until a year ago when he started having chest pains. So far, he might have had half a dozen episodes of chest pain. According the patient, each of these episodes last anywhere from half an hour to 1 hour. Early this morning around 430, he started having similar type of pain in the upper substernal region. Since there was no significant relief of the chest pain with the 2 sublingual nitro, he called the ambulance. He was brought to the emergency room by ambulance. By the time he reached the emergency room, most of the pain was gone. At the time of my examination, patient is pain-free. In the emergency room, the initial troponin T was 126. The 2-hour delta was 10.4. Apparently this patient has a history of persistently troponin T. However he has not had a positive delta up until today. He denies any fever or chills. No cough. He has a history of high blood pressure, dyslipidemia, CVA x2. He has been compliant with medications. Review of Systems Narrative: CONSTITUTIONAL: No fever or chills. EYES: No blurring of vision or other visual disturbances lately. ENT: No hoarseness of voice, auditory disturbances or sore throat. CARDIOVASCULAR: As mentioned above. RESPIRATORY: No significant cough. GASTROINTESTINAL: No hematemesis or melena. GENITOURINARY: Patient is on hemodialysis for the last 4 months or so. INTEGUMENTARY: No skin rashes or history of skin cancer. NEURO: History of TIAs x2 PSYCHIATRIC: No history of psychosis or major depression. HEMATOLOGIC: No bleeding disorders or significant anemia. ENDOCRINE: History of diabetes MUSCULOSKELETAL: No recent joint pain or swelling. ALLERGY/IMMUNOLOGY: As mentioned above. Meds/Allergies Home Medications and Allergies Home Medications Medication Instructions Recorded Confirmed Last Taken Type acetaminophen 500 mg tablet 1,000 mg PO PRN 05/05/19 11/09/20 11/09/20 04:30 History 1500 mg nitroglycerin 0.4 mg sublingual 0.4 mg SUBLINGUAL Q5M PRN 05/05/19 11/09/20 11/09/20 05:00 History tablet pantoprazole 40 mg tablet,delayed 40 mg PO DAILY@0500 05/05/19 11/09/20 11/09/20 04:30 History release terazosin 10 mg capsule 10 mg PO BID@05,18 cap 05/05/19 11/09/20 11/09/20 04:30 History allopurinol 300 mg tablet 300 mg PO DAILY@1800 tab 05/06/19 11/09/20 11/08/20 History furosemide 80 mg PO BID@0500,1800 04/24/20 11/09/20 11/09/20 04:30 History insulin aspart U-100 100 unit/mL See Rx Instructions .ROUTE 08/22/20 11/09/20 11/08/20 Rx (3 mL) subcutaneous pen .COMPLEX #15 ml aspirin 81 mg PO DAILY@0500 09/01/20 11/09/20 11/09/20 04:30 History clopidogrel 75 mg PO DAILY@0500 09/01/20 11/09/20 11/09/20 04:30 History insulin detemir U-100 8 unit SUBCUT BID 09/01/20 11/09/20 11/08/20 History Diabetic Shoes #1 ea 09/13/20 11/09/20 Unknown Rx sevelamer carbonate 1,600 mg PO BID 10/19/20 11/09/20 11/09/20 04:30 History Diabetic Shoes #1 ea 10/25/20 11/09/20 Unknown Rx hydralazine 100 mg tablet 100 mg PO PRN tab 10/27/20 11/09/20 Unknown History amlodipine 5 mg PO DAILY 11/09/20 11/09/20 Unknown History levothyroxine 25 mcg PO DAILY@05 11/09/20 11/09/20 11/09/20 04:30 History metoprolol tartrate 25 mg PO BID@05,18 11/09/20 11/09/20 11/09/20 04:30 History Allergies Allergy/AdvReac Type Severity Reaction Status Date / Time chicken derived Allergy Unknown Unknown Verified 11/09/20 06:52 morphine AdvReac Mild dizzy & Verified 11/09/20 06:52 nauseous PFSH Acute PFSH: Medical History Acute kidney injury superimposed on CKD Anemia ASHD (arteriosclerotic heart disease) Carotid stenosis, bilateral Chronic back pain Chronic kidney disease (CKD) Chronic kidney disease (CKD) stage G5/A1, glomerular filtration rate (GFR) less than or equal to 15 mL/min/1.73 square meter and albuminuria creatinine ratio less than 30 mg/g Congestive 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 CVA (cerebral vascular accident) Diabetes 1.5, managed as type 2 Dyslipidemia Essential hypertension History of 2019 novel coronavirus disease (COVID-19) Hypothyroidism Myocardial infarction KAITLYNN (obstructive sleep apnea) Surgical History Hx of cholecystectomy Previous back surgery S/P angioplasty with stent S/P cataract extraction S/P hemodialysis catheter insertion Family History Mother CAD (coronary artery disease) Stroke Sister Hypertension Social History Smoking and tobacco status: never smoked Alcohol intake: never Household members: spouse Marital status: service: Yes branch: [employer] Current occupational status: employed Current occupation: [employer] History of recent travel: No Current gender identity: Male Vitals/I&O/Wt Last Vital Signs Temp 97.9 F 11/09/20 06:47 Pulse 62 11/09/20 10:43 Resp 18 11/09/20 10:43 BP 145/79 11/09/20 10:43 Pulse Ox 94 11/09/20 10:43 Weight last 48 hrs Weight 208 lb Physical Exam Narrative: EXAM NARRATIVE: GENERAL: The patient is alert and oriented times three. Not in any acute distress. HEENT: No significant pallor, icterus or lymphadenopathy. The pupils are symmetrical. Oral cavity: There are no mucous membrane lesions. Funduscopic examination: The fundus is not visualized NECK: Trachea appears to be central. No masses noted. No JVD or thyromegaly appreciated. No carotid bruit. RESPIRATORY: Chest is symmetrical. No intercostals muscle retraction or any accessory muscle activation. There is no chest wall tenderness. Breath sounds are heard bilaterally. No rales or rhonchi heard. No evidence of any consolidation. BREASTS: Deferred. HEART: The PMI could not be palpated. No palpable precordial events. S1 and S2 are normal. No S3 or S4 heard. No pericardial rub or any click heard. Short systolic murmur at the base of the heart. No diastolic murmurs. ABDOMEN: No vessel pulsations or distention. No tenderness. No organomegaly appreciated. No abdominal bruit. Bowel sounds are normally heard. : Deferred. RECTAL: Deferred. LYMPHATIC: No lymphadenopathy noted in the neck or groin. EXTREMITIES: No edema or cyanosis. No clubbing. The pulses are symmetrical bilaterally. The radial, femoral, dorsalis pedis and the posterior tibial pulses are palpated and found to be in good volume and amplitude. MUSCULOSKELETAL: No acute joint deformities or swelling SKIN: There are no significant scars or skin rash noted. NEUROPSYCHIATRIC: The patient is alert and oriented x3. Appears to be in a good mood. The higher functions are grossly within normal limits. No tremors or rigidity noted. Data Labs: Other Labs: Laboratory Last Values WBC 12.5 10^3/uL (4.0 -10.0) H 11/09/20 07:09 RBC 3.90 10^6/uL (4.1 -5.3) L 11/09/20 07:09 Hgb 11.2 g/dL (11.7-1 6.6) L 11/09/20 07:09 Hct 36.3 % (42.0-52.0 ) L 11/09/20 07:09 MCV 93.1 fL (80-94) 11/09/20 07:09 MCH 28.7 pg (28.0-34. 0) 11/09/20 07:09 MCHC 30.9 g/dL (30.0-3 6.0) 11/09/20 07:09 RDW 15.7 % (12.1-15.1 ) H 11/09/20 07:09 Plt Count 254 10^3/cmm (130 -400) 11/09/20 07:09 MPV 9.8 fL (7.4-10.4) 11/09/20 07:09 Neut % (Auto) 79.2 % 11/09/20 07:09 Lymph % (Auto) 7.8 % 11/09/20 07:09 [place] % (Auto) 6.9 % 11/09/20 07:09 Eos % (Auto) 3.8 % 11/09/20 07:09 Baso % (Auto) 1.1 % 11/09/20 07:09 Neut # (Auto) 9.90 10^3/uL (1.8 -7.7) H 11/09/20 07:09 Lymph # (Auto) 1.0 10^3/uL (0.8- 4.8) 11/09/20 07:09 [place] # (Auto) 0.9 10^3/uL (0.2- 0.9) 11/09/20 07:09 Eos # (Auto) 0.5 10^3/uL (0.0- 0.8) 11/09/20 07:09 Baso # (Auto) 0.1 10^3/uL (0.0- 0.1) 11/09/20 07:09 Nucleated RBC % (a uto) 0 % 11/09/20 07:09 Nucleated RBCs # 0.0 /100WBC 11/09/20 07:09 Sodium 136 mmol/L (136-1 45) 11/09/20 07:09 Potassium 4.8 mmol/L (3.5-5 .1) 11/09/20 07:09 Chloride 95 mmol/L (98-107 ) L 11/09/20 07:09 Carbon Dioxide 25 mmol/L (22-29) 11/09/20 07:09 Anion Gap 20.8 (5-19) H 11/09/20 07:09 BUN 29 mg/dL (8-23) H 11/09/20 07:09 Creatinine 3.9 mg/dL (0.7-1. 2) H 11/09/20 07:09 GFR Calculation 15.4 mL/min (90-1 30) L 11/09/20 07:09 Glucose 394 mg/dL (65-115 ) H 11/09/20 07:09 POC Glucose 320 mg/dL (70-110 ) H 11/09/20 13:00 Calculated Osmolal ity 304 mOsm/kg (285- 295) H 11/09/20 07:09 Calcium 8.7 mg/dL (8.5-10 .5) 11/09/20 07:09 Total Bilirubin 0.3 mg/dL (0.15-1 .2) 11/09/20 07:09 AST 17 U/L (0-40) 11/09/20 07:09 ALT 16 U/L (0-41) 11/09/20 07:09 Alkaline Phosphata se 262 IU/L (40-130) H 11/09/20 07:09 Troponin T Baselin e 126 ng/L (0-15) H* 11/09/20 07:09 Troponin T 120 Min franky 136.4 ng/L (0-15) H 11/09/20 11:08 Delta Troponin T 10.4 ABS# (0-10) H* 11/09/20 11:08 Total Protein 6.2 g/dL (6.6-8.7 ) L 11/09/20 07:09 Albumin 3.7 g/dL (3.5-5.2 ) 11/09/20 07:09 Globulin 2.5 g/dL (1.3-4.6 ) 11/09/20 07:09 TSH 2.01 uIU/mL (0.27 -4.20) 11/09/20 07:09 Imaging^: Echo: My impression: Echocardiogram on 08/08/2020 1-Normal left ventricular cavity size. Normal left ventricular systolic function. Left ventricular ejection fraction is estimated at 65 %. No regional wall motion abnormalities. Grade I/IV diastolic dysfunction (abnormal relaxation filling pattern), normal to mildly elevated filling pressures. 2-Severely thickened mitral valve. Severe mitral annular calcification. No mitral valve stenosis. Mild mitral valve regurgitation. 3-Moderate aortic valve calcification. No aortic valve stenosis. No aortic valve regurgitation. 4-There is no pericardial effusion. 5-Pulmonary artery systolic pressure is within normal limits. 6-There is no pericardial effusion. 7-Pulmonary artery systolic pressure is within normal limits. 8-No significant change since the prior echocardiogram study of 02/20/2019. Myocardial perfusion imaging: My impression: Myocardial perfusion imaging on 10/19/2020 revealed 1. Abnormal myocardial perfusion imaging with ischemia noted in the apical, apical lateral and lateral mosqueda 2. LV systolic function is normal EKG^: EKG 1: My Interpretation: The EKG revealed a sinus bradycardia with a rate of [address]-T's. Normal MI and QRS duration. A&P Assessment and plan (1) Non-ST elevated myocardial infarction (non-STEMI): This patient's clinical features are consistent with a non-ST elevation myocardial infarction. His EKG is unremarkable. In view of his recurrent episodes of chest pain and the recent abnormal myocardial perfusion imaging, in order to further evaluate his coronary status, he may benefit from a cardiac catheterization. In the meanwhile, patient may be started on IV heparin, p.o. beta-artem, aspirin and Plavix. Status: Acute (2) ESRD (end stage renal disease): Patient is on hemodialysis. Management as per the nephrology. Status: Acute (3) Dyslipidemia: I may start him on Status: Acute (4) Diabetes mellitus: Lipitor, if there is no contraindication Status: Acute Qualifiers: Diabetes mellitus complication status: with hyperglycemia Diabetes mellitus terminologist insulin use: with terminologist use Diabetes mellitus type: type 2 Qualified Code(s): E11.65 - Type 2 diabetes mellitus with hyperglycemia; Z79.4 - FPC (current) use of insulin (5) Benign essential hypertension with target blood pressure below 140/90: We will try to optimize antihypertensive medications. Status: Acute Additional A&P Information After reviewing the above and also based on the patient's clinical progress, further recommendations will be made. Thank for the opportunity to evaluate this patient and make these recommendations. Consult Attestations Medical Necessity Statement: Patient requires continued hospital stay for close monitoring and further management Coding Level of Care Code Acute Groundskeeper for [facility] Fwd History Detailed Exam Detailed Medical Decision Making High Complexity Diagnoses Non-ST elevated myocardial infarction (non-STEMI) I21.4 ESRD (end stage renal disease) N18.6 Dyslipidemia E78.5 Diabetes mellitus E11.65; Z79.4 Diabetes mellitus complication status: with hyperglycemia Diabetes mellitus halfway insulin use: with terminologist use Diabetes mellitus type: type 2 Benign essential hypertension with target blood pressure below 140/90 I10
[2020-11-09] MEDS: nitroglycerin 1 gm/inch oint Pkt 0.5 INCH TOPICAL ×2 (13:18→19:05)
[2020-11-09] MEDS: heparin 5,000 unit/mL INJ 1 mL 5000 UNIT SUBCUT (13:18)
--- NOTE | 2020-11-09 13:40 | PC.NURSE ---
Dr Albarado at bedside to consult with patient verbal instruction received bed side to start Heparin Drip per protocol with no bolus due subq heparin administered
[2020-11-09] MEDS: heparin drip 25,000 UNIT/500 ML PREMIX 27 UNIT IV (14:32)
[2020-11-09 14:46] LABS: Troponin 5 6HR Delta 5.7 ng/L (0-12)
[2020-11-09 14:48] LABS: Troponin 5 6HR 131.7 ng/L (0-15)
[2020-11-09 16:48] LABS: Glucose Point of Care 172 mg/dL (70-110)
[2020-11-09] MEDS: metoprolol tartrate 25 mg Tablet PO (17:24)
[2020-11-09] MEDS: allopurinol 300 mg Tablet PO (17:24)
[2020-11-09] MEDS: terazosin 5 mg Capsule 10 MG PO (17:24)
--- NOTE | 2020-11-09 19:40 | PC.NURSE ---
Received phone call from Dr Albarado. Doctor requesting Left Heart Catheterization for October at 1200. Dr Savage to perform procedure. Orders placed per Dr Albarado.
[2020-11-09 20:14] LABS: Glucose Point of Care 177 mg/dL (70-110)
--- NOTE | 2020-11-09 20:40 | PC.NURSE ---
Received bedside report from YUNIOR Fox. Patient resting in bed watching tv. Patient denies chest pain at this time. Currently has heparin drip running at 27ml/hr. Pending PTT at ~2000. Discussed possible plan for [facility]. Patient verbalized complete understanding. No distress observed.
[2020-11-09 21:13] LABS: Partial Thromboplastin Time 85.6 SECONDS (23.9-36.7)
[2020-11-09 21:30] LABS: Hepatitis B Surface Antigen Non-Reactive (Nonreactive); Hepatitis C Virus Antibody Non-Reactive (Nonreactive)
--- NOTE | 2020-11-09 21:37 | PC.NURSE ---
Current PTT is 85.6. Decreased heparin drip to 23ml/hr as per protocol. Verified with YUNIOR Brown. Next PTT due at 0330.
[2020-11-10] VITALS (43 sets, daily range): BP systolic 114–179; BP diastolic 56–91; PULSE 56–88; RESP 16–18; TEMP 36.3–36.8; O2SAT 86–96
[2020-11-10] MEDS: nitroglycerin 1 gm/inch oint Pkt 0.5 INCH TOPICAL ×2 (01:14→04:03)
[2020-11-10] MEDS: pantoprazole DR 40 mg Tablet PO (04:02)
[2020-11-10] MEDS: terazosin 5 mg Capsule 10 MG PO ×2 (04:02→20:44)
[2020-11-10] MEDS: aspirin 81 mg EC Tablet PO (04:02)
[2020-11-10] MEDS: clopidogrel 75 mg Tablet PO (04:02)
[2020-11-10] MEDS: metoprolol tartrate 25 mg Tablet PO ×2 (04:03→20:45)
[2020-11-10] MEDS: levothyroxine 25 mcg Tablet PO (04:03)
[2020-11-10 04:05] LABS: Basophils # 0.1 10^3/uL (0.0-0.1); Basophils % 0.9 %; Eosinophils # 0.7 10^3/uL (0.0-0.8); Eosinophils % 5.8 %; Hemoglobin 11.1 g/dL (11.7-16.6); Lymphocytes # 1.7 10^3/uL (0.8-4.8); Mean Corpuscular HGB Conc 30.8 g/dL (30.0-36.0); Mean Corpuscular Hemoglobin 28.1 pg (28.0-34.0); Mean Corpuscular Volume 91.1 fL (80-94); Mean Platelet Volume 9.3 fL (7.4-10.4); Monocytes % 7.9 %; Neutrophils # 8.41 10^3/uL (1.8-7.7); Neutrophils % 70.2 %; Nucleated Red Blood Cells % 0 %; Platelet Count 230 10^3/cmm (130-400); Red Blood Count 3.95 10^6/uL (4.1-5.3); Red Cell Distribution Width 15.5 % (12.1-15.1)
[2020-11-10 04:29] LABS: Partial Thromboplastin Time 56.7 SECONDS (23.9-36.7)
[2020-11-10 04:40] LABS: Alanine Aminotransferase 14 U/L (0-41); Albumin Level 3.5 g/dL (3.5-5.2); Alkaline Phosphatase 268 IU/L (40-130); Anion Gap 17.8 (5-19); Aspartate Amino Transferase 14 U/L (0-40); Blood Urea Nitrogen 42 mg/dL (8-23); Carbon Dioxide 28 mmol/L (22-29); Chloride 96 mmol/L (98-107); Glomerular Filtration Rate 9.9 mL/min (90-130); Glucose 184 mg/dL (65-115); Osmolality Calculated 299 mOsm/kg (285-295); Potassium 4.8 mmol/L (3.5-5.1); Sodium 137 mmol/L (136-145); Total Bilirubin 0.2 mg/dL (0.15-1.2); Total Protein 6.5 g/dL (6.6-8.7)
--- NOTE | 2020-11-10 04:55 | PC.NURSE ---
Patient current PTT is 56.7 which is therapeutic. No change made to heparin drip at this time. Next PTT due at 1100
[2020-11-10 06:37] LABS: Glucose Point of Care 183 mg/dL (70-110)
--- NOTE | 2020-11-10 07:15 | PC.NURSE ---
Patient taken to dialysis.
--- NOTE | 2020-11-10 12:00 | XACV_ITS ---
Exam Room: [facility] Ht: 173 cm Wt: 95 kg BSA: 2.17 m2 Gender: Male : 1950 Any Known Allergies: Other Exam Priority: Routine Procedure(s): Procedure Description: Diagnostic procedure Procedure Description: PCI procedure Procedure Description: Left ventriculography Procedure Description: Drug Eluting Coronary Stent Procedure Description: PTCA Procedure Description: Coronary Angiography Diagnostic Cath Status: Urgent Diagnostic Findings * Left Main has minor luminal irregularities. * Circumflex has mild to moderate disease. * Mid Left Anterior Descending to Distal Left Anterior Descending: obstructive 70% stenosis, VARUN:3 flow. Diagonal artery originating at the site of the mid LAD stenosis has ostial 50 to 60% stenosis.. * Proximal Right Coronary Artery: severe 90% stenosis, VARUN: 3 flow. Medium sized nondominant vessel. * Coronary angiography shows left dominance. PCI Status: Urgent PCI Indication: NSTE - ACS Interventional Findings * Procedure detail: Left main artery was engaged with XB 3.5 guide catheter. A run-through guidewire was used to cross the mid to distal LAD stenosis and was put in distal LAD. We predilated the stenosis with a 2.5 x 12 mm semicompliant balloon. This was followed by placement of a 2.75 x 15 mm resolute Tiff drug-eluting stent. At this time the angiogram showed compromise of the ostial diagonal artery originating at the site of the stenosis. Brief attempt was made to cross the wire into the diagonal artery however it was unsuccessful. As patient was chest pain-free, he stopped the procedure here. Final angiogram was performed. Guidewire and guide catheter were removed. Femoral angiogram was performed and Angio-Seal was deployed for hemostasis.. * Mid Left Anterior Descending to Distal Left Anterior Descendin% stenosis treated with a AB TREK 2.50X12 RX BALLOON, and MDT R TIFF 2.75X15 ROBYN. 0% residual stenosis, VARUN: 3 flow. Conclusions 1. Severe coronary artery disease involving mid to distal LAD s/p successful revascularization with ROBYN x 1. 2. Proximal to mid RCA has severe coronary artery disease, however it is a small to medium sized vessel and decision made to medically treat it. In future, if has chest pain can be intervened upon. 3. Mid Left Anterior Descending to Distal Left Anterior Descending was treated with a Balloon, and Drug Eluting Stent. Recommendations * Transfer back to [facility]. * Aspirin and Plavix for atleast 1 year. * High intensity statin therapy. * Outpatient cardiology follow up in 4 weeks. Interventional RX Recommendation: PCI w/o planned CABG Diagnostic RX Recommendation: PCI w/o planned CABG Anticoagulation: Heparin Pressures Phase:Rest AO : 142 / 46 ( 77 ) @ 11:41:00 AM Clinical Evaluation EBL: 5mL-10mL Procedural Details Procedure Consent Obtained. Pre-Procedure Time Out. Identified patient by full name and date of as verbalized by the patient/guarantor. Does the consent match the physician's order: Yes. Accurate & Complete Informed Consent: Yes. Inpatient/Outpatient History & Physical on Chart: Yes. If H&P is completed, is and addenduem needed: No; If yes, is the addendum complete: N/A. Visualize and Verify Site with Patient/Guarantor: N/A. Relevant Radiology Images available: Yes. Pre-op teaching completed and patient verbalized understanding. The risks, benefits, and alternatives of sedation and/or procedure were discussed by physician. The patient agrees to continue. Procedure started. Correct patient, site and procedure confirmed by cath team. Current diagnosis: Chest Pain. PERRLA. Strong, equal hand cardiovascular disease specialist bilaterally. Lungs clear x 5 lobes. IV Site on Arrival: 20 gauge in the left hand. IV Fluids: 0.9% NaCl at KVO. 0 mL infused prior to labor relations manager. Pre Procedural Pulses: bilateral dorsalis pedis was 2+. Pre Procedural Pulses: bilateral posterior tibial was 2+. Pre Procedural Pulses: bilateral radial was 2+. bilateral groins was prepped with chloroprep then draped in the usual sterile fashion. Physician notified. Baseline sample Acquired. HR: 53 BPM. Equipment: 6F - Femoral. Physician arrived. Physician scrubbed in. Immediate Pre-Procedure Time Out. Correct Patient: Yes; Correct Procedure: Yes; Correct Site: Yes; Correct Patient Position: Yes; Correct Supplies: Yes; Dried Flammable Prep: Yes; Blood Products Available: No;. Lidocaine 1% infiltrated to the right groin. Arterial access obtained with micropuncture set. A 6 [place] JL4 catheter in over wire. Multiple views taken of left coronary artery. Catheter out. A 6 [place] JR4 catheter in over wire. Multiple views taken of right coronary artery. 6 [place] XB 3.5 guide catheter was inserted over the wire. Pressure wire inserted. ACT drawn. Results 115 seconds. Therapeutic limits - pre-heparin administration 90-150 seconds and monitoring heparin during a vascular procedure >250 seconds. Runthrough inserted along side the pressure wire. Pressure wire out. Pressure wire inserted and removed. Runthrough wire out. Runthrough inserted. Inflation number : 1 A AB TREK 2.50X12 RX BALLOON was prepped and advanced across the Mid LAD , then inflated to 8 KRISTEN for 0:23 seconds. Balloon out. Inflation Number : 2 A CARRIE Harris TIFF 2.75X15 ROBYN -Lot Number# [id number] was prepped and advanced across the Mid LAD. The stent was deployed at 12 KRISTEN for 0:27 seconds. Stent expiration date: 06/24/2022. Stent balloon out over wire. Wire out. Groin shot. Everything out. A Angio-Seal VIP ([facility]) was successful obtaining hemostatsis at the Right Femoral artery insertion site. ACT drawn. Results 222 seconds. Therapeutic limits - pre-heparin administration 90-150 seconds and monitoring heparin during a vascular procedure >250 seconds. Angioseal placed without complications. No signs or symptoms of hematoma noted. Sterile dressing applied per usual sterile fashion. Post Procedure: Pulses reassessed and unchanged. PERRLA. Strong, equal hand cardiovascular disease specialist bilaterally. No VTE prophylaxis required. Medication's Wasted: Heparin = 4000 units. Medication's Wasted: Other = Versed 2 mg. Medication's Wasted: Other = Fentanylj 50 mcg. Medication's Wasted: Other = Adenosine 60 mg. Total IV fluids: 26.6 mL. Contrast type used: Omnipaque 300 mgI/mL, 500 mL bottle. PCI Indication: New Onset Angina. Post-op diagnosis: CAD. Complications: None. Estimated blood loss: 5mL-10mL. Procedure completed. Patient transferred by bed to 1st floor. Vital chart was stopped. Access Site Site: Right Femoral artery Sheath Size: 6 Fr Hemostasis Method: Angio-Seal VIP ([facility]) Hemostasis Success: Successful Procedure Medications Start: 12:27 PM Stop: 12:27 PM Medication: Versed 1 mg and Fentanyl 25 mcg Amount: 1 Route: I.V. Start: 12:35 PM Stop: 12:35 PM Medication: Hydralazine Amount: 10 mg Route: I.V. Start: 12:52 PM Stop: 12:52 PM Medication: Heparin Amount: 9000 units Route: I.V. Start: 1:14 PM Stop: 1:14 PM Medication: Versed 1 mg and Fentanyl 25 mcg Amount: 1 Route: I.V. Start: 1:19 PM Stop: 1:19 PM Medication: Heparin Amount: 2000 units Route: I.V. Start: 1:34 PM Stop: 1:34 PM Medication: Hydralazine Amount: 10 mg Route: I.V. I, the attending physician, have reviewed and verified all procedure medications. Yes, all medications given per verbal order History/Risk Factors Hypertension: Yes Dyslipidemia: Yes Peripheral Arterial Disease (PAD): No Myocardial Infarction (AR): Yes Obesity: No Renal Disease: Yes Tobacco Use: Never Dialysis: Current Prior Interventions PCI: Yes CABG: No Valve Surgery: No Date of PCI: 07/17/2015 Report Signatures Finalized by Daryl Ashraf MD on 11/20/2020 10:55 AM
--- NOTE | 2020-11-10 12:15 | PC.NURSE ---
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
--- NOTE | 2020-11-10 13:17 | P.PN_ITS ---
Subjective Subjective: Interval history: Eliazar reports no chest discomfort overnight. He was ready for his angiogram when I saw him this morning. Medications: Reviewed: Yes Vitals/I&O/Wt Last Vital Signs Temp 98.2 F 11/10/20 07:47 Pulse 56 L 11/10/20 07:47 Resp 18 11/10/20 07:47 BP 152/77 11/10/20 07:47 Pulse Ox 96 11/10/20 04:00 11/09/20 11/10/20 11/10/20 22:59 06:59 14:59 Intake Total 548.1 / 908.1 Output Total 200 / 200 Balance 548.1 / 908.1 -200 / 708.1 Weight last 48 hrs Weight 95.617 kg Weight 94.347 kg Physical Exam Narrative: EXAM NARRATIVE: General exam is a white male, no distress, reporting no chest discomfort Neck is supple no lymphadenopathy or thyromegaly Cardiovascular regular rate and rhythm without murmur. Tunneled dialysis catheter left chest Lungs clear no wheezing or crackles Abdomen is soft with positive bowel sounds. No obvious organomegaly. Extremities trace edema bilaterally Data : 11/10/20 03:57 11/10/20 03:57 A&P Assessment and plan (1) Chest pain: Angiogram planned today Concern for non-ST elevation myocardial infarction on admission. Cardiology has seen and heparin drip was initiated He is currently chest discomfort free Nitroglycerin ointment Continue aspirin, Plavix, beta-artem. Not sure why he is not maintained on a statin. Will have to clarify prior to starting. He has had a recent nuclear stress test that was abnormal, demonstrating reversible ischemia Status: Acute (2) CAD (coronary artery disease): Previously had coronary stenting. 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 Coding Level of Care Code Acute Strategic Marketing Associate for Chg Fwd Diagnoses Chest pain R07.9 CAD (coronary artery disease) I25.10 ESRD (end stage renal disease) N18.6 Diabetes mellitus E11.65; Z79.4 Diabetes mellitus complication status: with hyperglycemia Diabetes mellitus custodial insulin use: with watermelon harvesting supervisor use Diabetes mellitus type: type 2 Hypothyroidism E03.9
--- NOTE | 2020-11-10 13:40 | ECG_ITS ---
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 Measurements Intervals [place] Rate: 82 P: 54 [place]: 241 QRS: 16 QRSD: 109 T: 0 QT: 407 QTc: 477 Interpretive Statements SINUS RHYTHM WITH FIRST DEGREE AV BLOCK MODERATE ST DEPRESSION [0.05+ mV ST DEPRESSION] Compared to ECG 11/09/2020 13:29:49 ST (T wave) deviation now present Myocardial infarct finding no longer present Electronically Signed On 11-12-2020 18:34:13 CDT by Tiara Bermeo M.D. [id number]
--- NOTE | 2020-11-10 14:18 | W.PM.OPSUD ---
Surgery/Procedure H&P Update DATE OF PROCEDURE: November 10, 2020 DATE H&P PERFORMED: 11/09/20 H&P UPDATE INFORMATION: I have reviewed H&P completed within last 30 days, I have examined patient prior to procedure and No changes to prior documentation PREOP DIAGNOSIS: NSTEMI PRIMARY INDICATION FOR PROCEDURE: NSTEMI PLANNED PROCEDURE: Left heart cath with possible percutaneous coronary intervention PATIENT REASSESSED PRIOR TO SEDATION, WITH NO CHANGE NOTED: Yes PHYSICAL EXAM: alert, oriented x 3, clear to auscultation bilaterally and regular rate & rhythm AIRWAY EVAL/ANESTHESIA PLAN: ASA III, Monitored Anesthesia, Local Anesthesia, Risks, benefits & alternatives of sedation and/or procedure discussed and Patient agrees to continue as planned
--- NOTE | 2020-11-10 14:32 | P.PN_ITS ---
Subjective Subjective: Interval history: Patient is s/p 2 cardiac procedure today. Now feeling better. denies chest pain, has mild heart burn Vitals/I&O/Wt Last Vital Signs Temp 97.3 F L 11/10/20 14:27 Pulse 64 11/10/20 14:27 Resp 18 11/10/20 14:27 BP 149/86 11/10/20 14:27 Pulse Ox 93 11/10/20 12:00 11/09/20 11/10/20 11/10/20 22:59 06:59 14:59 Intake Total 548.1 / 908.1 300 / 300 Output Total 200 / 200 1311 / 1311 Balance 548.1 / 908.1 -200 / 708.1 -1011 / -1011 Weight last 48 hrs Weight 202 lb 6.15 oz Weight 210 lb 12.8 oz Weight 208 lb Physical Exam Narrative: EXAM NARRATIVE: GENERAL: Patient is alert, awake and oriented x3. [] NECK: No jugular vein distension. [] HEENT: No cyanosis. No icterus. No pallor. [] HEART: Regular S1 and S2. No murmur, rub or gallop. [] LUNGS: Clear to auscultate bilaterally. [] ABDOMEN: Soft, nontender and nondistended. Positive bowel sounds. No guarding, rebound or tenderness. [] CENTRAL NERVOUS SYSTEM: Grossly nonfocal. [] EXTREMITIES: Lower extremities with 1+ edema bilaterally. Pulses palpable in the lower extremities, both dorsalis pedis and posterior tibial. [] Data : 11/10/20 03:57 11/10/20 03:57 A&P Assessment and plan (1) Non-ST elevated myocardial infarction (non-STEMI): Patient underwent coronary angiogram that showed moderate to severe mid to distal LAD stenosis. We attempted FFR however because of calcification, FFR wire could not be advanced. Post FFR angiogram showed worse stenosis that was severe and was hazy, we proceeded with PCI of the mid to distal LAD. A medium sized diagonal artery was pinched at the site of stent placement. Patient also had severe stenosis of proximal to mid RCA which is small to medium sized vessel . Postprocedure patient again started complaining of chest pain. He described it as heartburn that was radiating to the jaw. EKG had mild ST depressions in inferior leads however no ST elevation was noted. He was put on nitro drip however chest pain was not resolving. He was taken back to the [facility] for repeat angiogram. It showed haziness with possible dissection at the distal edge of the stent in LAD. We put a second stent to cover that area. Attempt was made to cross into the diagonal artery to perform balloon angioplasty of the diagonal ostium however wire would not cross into the vessel. As it was a small to medium sized vessel, we decided on medical therapy. He also underwent PCI of the proximal to mid RCA as well. At the end of the procedure patient's chest pain was resolved. No ischemic EKG changes. During the 2 procedures patient received significant contrast volume which was more than 500 cc. Will recommend performing dialysis before patient is discharged tomorrow. Continue aspirin and Plavix. Status: Acute (2) ESRD (end stage renal disease): Patient is on hemodialysis. Management as per the nephrology. 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 Status: Acute Additional A&P Information Thank you for involving us with care of patient. We will continue to follow. Please call with questions. Attestations Medical Necessity Statement*: Care expected to cross 2 midnights. Coding Level of Care Code Acute Firer [place] for [facility] [place] Diagnoses Non-ST elevated myocardial infarction (non-STEMI) I21.4 ESRD (end stage renal disease) N18.6 Dyslipidemia E78.5 Diabetes mellitus E11.65; Z79.4 Diabetes mellitus complication status: with hyperglycemia Diabetes mellitus terminal press operator insulin use: with terminal press operator use Diabetes mellitus type: type 2 Benign essential hypertension with target blood pressure below 140/90 I10
--- NOTE | 2020-11-10 14:41 | ECG_ITS ---
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 Measurements Intervals [place] Rate: 80 P: 39 [place]: 262 QRS: -4 QRSD: 99 T: -5 QT: 403 QTc: 467 Interpretive Statements SINUS RHYTHM WITH SINUS ARRHYTHMIA WITH FIRST DEGREE AV BLOCK MINIMAL ST DEPRESSION [0.025+ mV ST DEPRESSION] INTERPRETATION BASED ON A DEFAULT AGE OF 40 YEARS Compared to ECG 11/10/2020 13:45:15 No significant changes Electronically Signed On 11-10-2020 14:56:32 CDT by Mohit Albarado M.D. [id number]
[2020-11-10] MEDS: nitroglycerin drip 50 MG/250 ML PREMIX IV (15:00)
[2020-11-10] MEDS: sodium chloride 0.9% 1,000 ML 40 ML IV (15:16)
[2020-11-10] MEDS: calcium carbonate 500 mg Chew Tablet PO (15:17)
[2020-11-10] MEDS: ondansetron 2 mg/ML SDV 2 mL 4 MG IVP (15:17)
[2020-11-10] MEDS: acetaminophen 325 mg Tablet 650 MG PO ×2 (15:17→20:51)
--- NOTE | 2020-11-10 15:34 | XACV_ITS ---
Exam Room: [facility] Ht: 173 cm Wt: 95 kg BSA: 2.17 m2 Gender: Male : 1950 Any Known Allergies: Other Exam Priority: Routine Procedure(s): Procedure Description: Diagnostic procedure Procedure Description: PCI procedure Procedure Description: Drug Eluting Coronary Stent Procedure Description: PTCA Procedure Description: Miscellaneous Procedure Description: ACT Procedure Description: Coronary Angiography Diagnostic Cath Status: Urgent Diagnostic Findings * Left Main has minor luminal irregularities. * Circumflex has diffuse mild to moderate luminal irregularities. * LAD stent is patent. However at the distal edge of stent, there was haziness noted suspicious for dissection. Distal Left Anterior Descending to Distal Left Anterior Descending: obstructive 70% stenosis, VARUN: 3 flow. * INDICATION: Patient had PCI of mid to distal LAD earlier today. He started having chest discomfort after that. EKG does not show ST elevations however given significant chest pain, plan to perform coronary angiogram again. * Proximal Right Coronary Artery to Mid Right Coronary Artery: severe 90% stenosis, VARUN: 0 flow. * Mid Right Coronary Artery: severe 90% stenosis, VARUN: 0 flow. * Coronary angiography shows left dominance. PCI Status: Urgent PCI Indication: NSTE - ACS Interventional Findings * Procedure Detail: Left main artery was engaged with XB 3.5 guide catheter. 0.014 run-through guidewire was used to cross into distal LAD. We placed a 2.5 x 15 mm resolute [place] drug-eluting stent. The pinched diagonal artery at prior stent underwent wiring attempt however wire could not be crossed into the Diagonal artery. Patient's chest pain resolved at this time. Guidewire and guide catheter were removed. We then turned attention to the RCA. His RCA was engaged with a JR4 guide catheter. Run-through guidewire was used to cross the stenosis and was put in distal vessel. We predilated proximal to mid RCA with 2.25 x 8 mm semicompliant balloon. This was followed by placement of 2.5 x 18 mm resolute Tiff drug-eluting stent. A second 2.25 x 12 mm resolute Tiff stent was placed at the distal edge of the first stent. At this time final angiogram was performed that showed excellent stent expansion, VARUN-3 flow and no residual stenosis. Guidewire and guide catheter were removed. Femoral sheath was sutured in place for removal later.. * Distal Left Anterior Descending to Distal Left Anterior Descendin% stenosis treated with a MDT R TIFF 2.5X15 ROBYN. 0% residual stenosis, VARUN: 3 flow. * Proximal Right Coronary Artery to Mid Right Coronary Artery: 90% stenosis treated with a AB TREK 2.25X8 RX BALLOON, and MDT R TIFF 2.5X18 ROBYN. 0% residual stenosis, VARUN: 3 flow. * Mid Right Coronary Artery: 90% stenosis treated with a MDT R TIFF 2.25X12 ROBYN. 0% residual stenosis, VARUN: 3 flow. Conclusions 1. There is severe coronary artery disease with two vessel disease. (Distal edge dissection from prior stenting, treated with placement of drug eluting stent. 2. Distal Left Anterior Descending to Distal Left Anterior Descending was treated with a Drug Eluting Stent. 3. Proximal Right Coronary Artery to Mid Right Coronary Artery was treated with a Balloon, and Drug Eluting Stent. 4. Mid Right Coronary Artery was treated with a Drug Eluting Stent. Recommendations * Continue aspirin and Plavix. * High intensity statin therapy. * Outpatient cardiology follow up in 4 weeks. Interventional RX Recommendation: PCI w/o planned CABG Diagnostic RX Recommendation: PCI w/o planned CABG Anticoagulation: Heparin Pressures Phase:Rest AO : 122 / 58 ( 85 ) @ 3:21:00 PM 120 / 95 ( 86 ) @ 4:23:00 PM Clinical Evaluation EBL: 5mL-10mL Procedural Details Pre-Procedure Time Out. Identified patient by full name and date of as verbalized by the patient/guarantor. Does the consent match the physician's order: N/A Emergent. Accurate & Complete Informed Consent: N/A Emergent. Inpatient/Outpatient History & Physical on Chart: N/A Emergent. If H&P is completed, is and addenduem needed: N/A Emergent; If yes, is the addendum complete: N/A Emergent. Visualize and Verify Site with Patient/Guarantor: N/A. Relevant Radiology Images available: N/A Emergent. Pre-op teaching completed and patient verbalized understanding. The risks, benefits, and alternatives of sedation and/or procedure were discussed by physician. The patient agrees to continue. Procedure started. Correct patient, site and procedure confirmed by cath team. Current diagnosis: Chest Pain. PERRLA. Strong, equal hand inclusion internship bilaterally. Lungs clear x 5 lobes. IV Site on Arrival: 18 gauge in the right anticubital. IV Fluids: 0.9% NaCl at KVO. 0 mL infused prior to asphalt plant laborer. Pre Procedural Pulses: bilateral dorsalis pedis was 2+. Pre Procedural Pulses: bilateral posterior tibial was 2+. Pre Procedural Pulses: bilateral radial was 3+. Oxygen started at 2liters/min via nasal canula. bilateral groins was prepped with chloroprep then draped in the usual sterile fashion. Physician notified. Baseline sample Acquired. HR: 76 BPM. Equipment: 6F - Femoral. Cardiac Cath Pack. ACIST Manifold Kit Model BT 2000. Heparinized Saline (2 units/mL), 1000 mL bag. Kit, Micropuncture. Physician arrived. Physician scrubbed in. Patient arrived to asphalt plant laborer with nitro drip. Drip turned off at this time. Immediate Pre-Procedure Time Out. Correct Patient: Yes; Correct Procedure: Yes; Correct Site: Yes; Correct Patient Position: Yes; Correct Supplies: Yes; Dried Flammable Prep: Yes; Blood Products Available: No;. Lidocaine 1% infiltrated to the left groin. Arterial access obtained with micropuncture set. A 6 prydeinig JL4 catheter in over wire. ACT drawn. Results 159 seconds. Therapeutic limits - pre-heparin administration 90-150 seconds and monitoring heparin during a vascular procedure >250 seconds. Catheter out. 6 prydeinig XB 3 guide catheter was inserted over the wire. Runthrough inserted. Inflation Number : 1 A MDT R TIFF 2.5X15 ROBYN -Lot Number# [id number] was prepped and advanced across the Dist LAD. The stent was deployed at 12 KRISTEN for 0:24 seconds. Stent expiration date: 01/18/2022. Inflation number: 2 The stent balloon was then re-inflated across the Dist LAD to 12 KRISTEN for 0:18 seconds. Stent balloon out over wire. Results checked. Wire redirected to the diagonal. Wire out. Wire reinserted. Tuber Machine Cutter 50 inserted. Sprinter balloon inserted but removed intact. Wire out. Guide catheter out. ACT drawn. Results 282 seconds. Therapeutic limits - pre-heparin administration 90-150 seconds and monitoring heparin during a vascular procedure >250 seconds. Runthrough inserted. 6 prydeinig JR 4 guide catheter was inserted over the wire. AP pads placed on patient. 2.5x15mm balloon inserted but removed intact and undeployed. Inflation number : 1 A AB TREK 2.25X8 RX BALLOON was prepped and advanced across the Prox RCA , then inflated to 8 KRISTEN for 0:24 seconds. Inflation number: 2 The AB TREK 2.25X8 RX BALLOON was reinflated across the Prox RCA, to 8 KRISTEN for 0:26 seconds. Inflation number: 3 The AB TREK 2.25X8 RX BALLOON was reinflated across the Prox RCA, to 8 KRISTEN for 0:17 seconds. Inflation number: 4 The AB TREK 2.25X8 RX BALLOON was reinflated across the Prox RCA, to 8 KRISTEN for 0:14 seconds. Balloon out. 2.5x18mm stent inserted but removed undeployed and intact. Guideliner inserted. Inflation Number : 5 A MDT R TIFF 2.5X18 ROBYN -Lot Number# [id number] was prepped and advanced across the Prox RCA. The stent was deployed at 12 KRISTEN for 0:29 seconds. Stent balloon out over wire. Guideliner out. Inflation Number : 1 A MDT R TIFF 2.25X12 ROBYN -Lot Number# [id number] was prepped and advanced across the Mid RCA. The stent was deployed at 12 KRISTEN for 0:24 seconds. Stent balloon out over wire. Wire out. Catheter out. Sheath(s) sutured into position with 2-0 silk and sterile 4x4's and Op-site applied over the site. No oozing or signs and symptoms of hematoma noted. Arterial sheath flushed and connected to tranducer and pressure bag with heparinized saline. A Suture was successful obtaining hemostatsis at the Left Femoral artery insertion site. Post Procedure: Pulses reassessed and unchanged. PERRLA. Strong, equal hand inclusion internship bilaterally. No VTE prophylaxis required. Medication's Wasted: Other = Fentanyl 25 mcg. Medication's Wasted: Heparin = 2000units. Medication's Wasted: Lidocaine 1% = 6 mL. Total IV fluids: 100 mL. Vital chart was stopped. ACT drawn. Results 231 seconds. Therapeutic limits - pre-heparin administration 90-150 seconds and monitoring heparin during a vascular procedure >250 seconds. PCI Indication: CAD (without ischemic symptoms). Post-op diagnosis: Multivessel CAD. Complications: None. Estimated blood loss: 5mL-10mL. Procedure completed. Patient transferred by bed to 1st floor. Access Site Site: Left Femoral artery Sheath Size: 6 Fr Hemostasis Method: Suture Hemostasis Success: Successful Procedure Medications Start: 4:11 PM Stop: 4:11 PM Medication: Versed 1 mg and Fentanyl 25 mcg Amount: 1 Route: I.V. Start: 4:23 PM Stop: 4:23 PM Medication: Heparin Amount: 4000 units Route: I.V. Start: 4:44 PM Stop: 4:44 PM Medication: Heparin Amount: 2000 units Route: I.V. Start: 4:45 PM Stop: 4:45 PM Medication: Fentanyl Amount: 25 mcg Route: I.V. Start: 4:59 PM Stop: 4:59 PM Medication: Nitrogylcerin Amount: 200 mcg Route: I.A. Start: 5:01 PM Stop: 5:01 PM Medication: Versed Amount: 0.5 mg Route: I.V. Start: 5:15 PM Stop: 5:15 PM Medication: Fentanyl Amount: 25 mcg Route: I.V. I, the attending physician, have reviewed and verified all procedure medications. Yes, all medications given per verbal order History/Risk Factors Hypertension: Yes Dyslipidemia: Yes Peripheral Arterial Disease (PAD): No Myocardial Infarction (MO): Yes Obesity: No Renal Disease: Yes Tobacco Use: Never Dialysis: Current Prior Interventions PCI: Yes CABG: No Valve Surgery: No Date of PCI: 07/17/2015 Report Signatures Finalized by Daryl Ashraf MD on 11/20/2020 11:34 AM
--- NOTE | 2020-11-10 15:50 | PC.NURSE ---
Patient back to photo lab technician.
--- NOTE | 2020-11-10 16:01 | PC.NURSE ---
At 1415 completed call with telenephrology physician. Patient reported indigestion to Dr. Parker. At [address] Ashraf by phone. Reported patient c/o of nausea and chest pressure. Order for Ntg infusion. Titrating nitroglycerin infusion. Also gave zofran, calcium carbonate and tylenolf for c/o indigestion and headache. At 1530 Dr. Trevino at bedside. Patient reports chest pressure at 10/10. Dr. Ashraf discussed with patient and patient's plan to return to [facility] today.
--- NOTE | 2020-11-10 16:48 | P.PN_ITS ---
Subjective Subjective: Interval history: had dialysis in AM, cardiac cath post with placement of stent Medications: Reviewed: Yes Vitals/I&O/Wt Last Vital Signs Temp 97.3 F L 11/10/20 14:27 Pulse 81 11/10/20 15:30 Resp 18 11/10/20 14:27 BP 132/74 11/10/20 15:30 Pulse Ox 86 L 11/10/20 15:30 11/10/20 11/10/20 11/10/20 06:59 14:59 22:59 Intake Total 300 / 300 3.00 / 303.00 Output Total 200 / 200 1591 / 1591 Balance -200 / 708.1 -1291 / -1291 3.00 / -1288.00 Weight last 48 hrs Weight 91.8 kg Weight 95.617 kg Weight 94.347 kg Physical Exam Const: COMMON NORMALS: no acute distress GENERAL APPEARANCE: cooperative Neck/C-Spine: OTHER: IJ dialysis catheter Extremity: GENERAL: No edema Data : 11/10/20 03:57 11/10/20 03:57 A&P Additional A&P Information Impression: 1.ESRD 2. non-STEMI, cath with stent placement today Plan: HD again tomorrow. 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
[2020-11-10 18:39] LABS: Glucose Point of Care 178 mg/dL (70-110)
[2020-11-10] MEDS: allopurinol 300 mg Tablet PO (18:40)
[2020-11-10] MEDS: alum-mag-hydroxide-sime 30 mL UDC PO (18:40)
--- NOTE | 2020-11-10 20:42 | PC.NURSE ---
Dr. Trevino ordered to d/c nitropaste. Patient is not having any chest pain at this time. Sheath to left groin. PTT pending. Right groin has dressing. No hematoma noted. Pedal pulses present. VSS.
[2020-11-10 20:49] LABS: Glucose Point of Care 248 mg/dL (70-110)
[2020-11-10 21:01] LABS: Partial Thromboplastin Time > 250.0 SECONDS (23.9-36.7)
--- NOTE | 2020-11-10 21:55 | PC.NURSE ---
Patient has no complaints at this time. Patient has frequent incontinent episodes. Will monitor.
[2020-11-10 23:56] LABS: Partial Thromboplastin Time 63.8 SECONDS (23.9-36.7)
[2020-11-11] VITALS (25 sets, daily range): BP systolic 107–146; BP diastolic 58–112; PULSE 61–74; RESP 16–18; TEMP 36.6–37; O2SAT 81–94
--- NOTE | 2020-11-11 02:02 | PC.NURSE ---
Sheath removed from left groin at 0125. Manual pressure held for 20 minutes. Patient educated on activity restrictions and bedrest and verbalized understanding. VSS. Dressing applied. No drainage or hematoma noted. Will monitor. Dressing to right groin replaced due to small amount of drainage throughout shift. Will monitor new dressing. No hematoma noted.
[2020-11-11] MEDS: metoprolol tartrate 25 mg Tablet PO (04:11)
[2020-11-11] MEDS: pantoprazole DR 40 mg Tablet PO (04:11)
[2020-11-11] MEDS: levothyroxine 25 mcg Tablet PO (04:11)
[2020-11-11] MEDS: aspirin 81 mg EC Tablet PO (04:11)
[2020-11-11] MEDS: terazosin 5 mg Capsule 10 MG PO (04:11)
--- NOTE | 2020-11-11 04:12 | PC.NURSE ---
Left and right groin dressings C/D/I. No drainage or hematoma. VSS. Will monitor.
--- NOTE | 2020-11-11 04:28 | PC.NURSE ---
Patient did not have nitro or NS running upon my arrival on shift.
[2020-11-11 05:46] LABS: Basophils # 0.1 10^3/uL (0.0-0.1); Basophils % 0.6 %; Eosinophils # 0.4 10^3/uL (0.0-0.8); Eosinophils % 3.2 %; Hematocrit 34.6 % (42.0-52.0); Hemoglobin 10.6 g/dL (11.7-16.6); Lymphocytes # 0.9 10^3/uL (0.8-4.8); Lymphocytes % 7.7 %; Mean Corpuscular HGB Conc 30.6 g/dL (30.0-36.0); Mean Corpuscular Hemoglobin 28.2 pg (28.0-34.0); Mean Platelet Volume 9.8 fL (7.4-10.4); Monocytes # 1.1 10^3/uL (0.2-0.9); Monocytes % 9.9 %; Neutrophils # 8.53 10^3/uL (1.8-7.7); Neutrophils % 77.8 %; Nucleated Red Blood Cells % 0 %; Platelet Count 231 10^3/cmm (130-400); Red Blood Count 3.76 10^6/uL (4.1-5.3); Red Cell Distribution Width 16.2 % (12.1-15.1)
--- NOTE | 2020-11-11 06:10 | PC.NURSE ---
Left and right groin dressings C/D/I. No drainage or hematoma. VSS. Will monitor.
[2020-11-11 06:31] LABS: Anion Gap 16.9 (5-19); Blood Urea Nitrogen 22 mg/dL (8-23); Calcium 8.2 mg/dL (8.5-10.5); Carbon Dioxide 27 mmol/L (22-29); Chloride 95 mmol/L (98-107); Glomerular Filtration Rate 16.8 mL/min (90-130); Glucose 191 mg/dL (65-115); Osmolality Calculated 286 mOsm/kg (285-295); Potassium 4.9 mmol/L (3.5-5.1); Sodium 134 mmol/L (136-145)
[2020-11-11 06:42] LABS: Glucose Point of Care 234 mg/dL (70-110)
--- NOTE | 2020-11-11 08:42 | P.DS_ITS ---
Discharge Providers Date of Admission: 11/10/20 14:35 Date of Discharge: November 11, 2020 Attending Provider at Admission: Dionte Haddad MD Attending Provider at Discharge: Dionte Haddad MD Primary Care Provider: Carlee Carreon DO Diagnoses at Discharge Discharge Diagnosis (1) Non-ST elevated myocardial infarction (non-STEMI): Status: Acute (2) ESRD (end stage renal disease): Status: Acute (3) Dyslipidemia: Status: Acute (4) Diabetes mellitus: Status: Acute Qualifiers: Diabetes mellitus complication status: with hyperglycemia Diabetes mellitus jail insulin use: with jail use Diabetes mellitus type: type 2 Qualified Code(s): E11.65 - Type 2 diabetes mellitus with hyperglycemia; Z79.4 - shelter (current) use of insulin (5) Benign essential hypertension with target blood pressure below 140/90: Status: Acute Reason for Visit Reason for Visit: chest pain Hospital Course Hospital Course Eliazar is a 70-year-old male who presented with chest discomfort. There was concern for non-ST elevation myocardial infarction. He had had a recent nuclear stress test that demonstrated reversible ischemia. He was placed in the hospital on a heparin drip. Beta-artem, nitrates, Plavix, aspirin were all continued. Angiogram was performed on 11/10 and LAD lesion was stented. Following angiogram on the floor he had recurrence of chest discomfort, was brought back to [facility] and RCA stents were placed. Following this he did quite well with no significant hematoma on either groin site. Distal pulses were intact. Only addition to his medicine was Crestor. He believes he is on a cholesterol medicine he forgot to tell us when he entered the hospital. Unfortunately the [facility] cannot be contacted for some medicine list today. He will initiate Crestor if he is not already on it and has no allergies. If he already has a statin at home he will phone back and update her medicine list when he gets home and continue that until his cardiology appointment. Physical Exam Narrative: EXAM NARRATIVE: General exam no apparent distress Neck is supple no lymphadenopathy thyromegaly Cardiovascular regular rate and rhythm without murmur Lungs clear Abdomen is soft with positive bowel sounds Extremities no cyanosis clubbing or edema, bilateral groin sites without significant hematoma. Discharge Data Data Completed and Pending: Completed Studies During Hospitalization Category Date Time Status XR chest 1V blake ble [id number] Stat Exams 11/09/20 06:55 Completed Pending at discharge Category Date Time Status WINDING INSPECTOR AND TESTER request for service Routin e Exams 11/10/20 12:00 Taken WINDING INSPECTOR AND TESTER request for service Routin e Exams 11/10/20 15:34 Taken Platelet Count Q2 D Lab 11/13/20 04:00 Ordered Labs from last 24 hours 11/11/20 11/11/20 11/11/20 06:34 04:10 04:10 WBC 11.0 H RBC 3.76 L Hgb 10.6 L Hct 34.6 L MCV 92.0 MCH 28.2 MCHC 30.6 RDW 16.2 H Plt Count 231 MPV 9.8 Neut % (Auto) 77.8 Lymph % (Auto) 7.7 [place] % (Auto) 9.9 Eos % (Auto) 3.2 Baso % (Auto) 0.6 Neut # (Auto) 8.53 H Lymph # (Auto) 0.9 [place] # (Auto) 1.1 H Eos # (Auto) 0.4 Baso # (Auto) 0.1 Nucleated RBC % (a uto) 0 Nucleated RBCs # 0.0 APTT Sodium 134 L Potassium 4.9 Chloride 95 L Carbon Dioxide 27 Anion Gap 16.9 BUN 22 Creatinine 3.6 H GFR Calculation 16.8 L Glucose 191 H POC Glucose 234 H Calculated Osmolal ity 286 Calcium 8.2 L 11/11/20 11/10/20 11/10/20 00:30 22:49 20:39 WBC RBC Hgb Hct MCV MCH MCHC RDW Plt Count MPV Neut % (Auto) Lymph % (Auto) [place] % (Auto) Eos % (Auto) Baso % (Auto) Neut # (Auto) Lymph # (Auto) [place] # (Auto) Eos # (Auto) Baso # (Auto) Nucleated RBC % (a uto) Nucleated RBCs # APTT 35.0 63.8 H D Sodium Potassium Chloride Carbon Dioxide Anion Gap BUN Creatinine GFR Calculation Glucose POC Glucose 248 H Calculated Osmolal ity Calcium 11/10/20 11/10/20 11/10/20 19:46 18:34 11:35 WBC RBC Hgb Hct MCV MCH MCHC RDW Plt Count MPV Neut % (Auto) Lymph % (Auto) [place] % (Auto) Eos % (Auto) Baso % (Auto) Neut # (Auto) Lymph # (Auto) [place] # (Auto) Eos # (Auto) Baso # (Auto) Nucleated RBC % (a uto) Nucleated RBCs # APTT > 250.0 H* D 66.0 H Sodium Potassium Chloride Carbon Dioxide Anion Gap BUN Creatinine GFR Calculation Glucose POC Glucose 178 H Calculated Osmolal ity Calcium Vitals: Last Vital Signs Temp 98.4 F 11/11/20 00:00 Pulse 65 11/11/20 06:00 Resp 16 11/11/20 00:00 BP 135/70 11/11/20 06:00 Pulse Ox 90 11/11/20 04:00 Discharge Plan Discharge Patient Disposition: Home Condition: Stable Prescriptions: New Crestor 10 mg tablet 10 mg PO DAILY Qty: 30 RF: 0 Continued pantoprazole 40 mg tablet,delayed release (DR/EC) 40 mg PO DAILY@0500 RF: 0 terazosin 10 mg capsule 10 mg PO BID@ RF: 0 nitroglycerin [Nitrostat] 0.4 mg tablet, sublingual 0.4 mg SUBLINGUAL Q5M PRN (Reason: Chest Pain) RF: 0 acetaminophen [Tylenol Extra Strength] 500 mg tablet 1,000 mg PO PRN RF: 0 allopurinol 300 mg tablet 300 mg PO DAILY@1800 RF: 0 Novolog Flexpen U-100 Insulin 100 unit/mL (3 mL) insulin pen See Rx Instructions .ROUTE .COMPLEX Qty: 15 RF: 0 (DME) Diabetic Shoes See Rx Instructions .ROUTE .MEDSUPPLY Qty: 1 RF: 0 (DME) Diabetic Shoes See Rx Instructions .ROUTE .MEDSUPPLY Qty: 1 RF: 0 hydralazine 100 mg tablet 100 mg PO PRN RF: 0 furosemide 40 mg tablet 80 mg PO BID@0500,1800 RF: 0 sevelamer carbonate 800 mg tablet 1,600 mg PO BID RF: 0 amlodipine 5 mg Tablet 5 mg PO DAILY RF: 0 levothyroxine 25 mcg Tablet 25 mcg PO DAILY@05 RF: 0 metoprolol tartrate 25 mg Tablet 25 mg PO BID@ RF: 0 clopidogrel 75 mg tablet 75 mg PO DAILY@0500 RF: 0 aspirin 81 mg tablet,delayed release (DR/EC) 81 mg PO DAILY@0500 RF: 0 insulin detemir U-100 100 unit/mL (3 mL) insulin pen 8 unit SUBCUT BID RF: 0 Discharge Orders: Discharge Order (Routine); Ordered 11/11/20 Ordered By: Dionte Haddad Referrals: Daryl Ashraf M.D [Physician] - 4-7 days (Follow-up with Luciana Bergman nurse practitioner in clinic, and then 6 weeks with Andriy) Carlee Carreon DO [Primary Care Provider] - 4-7 days Discharge Diet: Cardiac Discharge Activity: Increase activity as tolerated Patient Instructions: Left Heart Catheterization (DC), Opioid Safety Activity Restrictions/Additional Instructions: Take all medicine as prescribed You were prescribed stress Crestor 10 mg daily for as a statin on discharge. You have indicated you may already be on a statin. Please clarify this prior to starting. Do not discharge until dialysis has been given. 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
[2020-11-11] MEDS: amlodipine 5 mg Tablet PO (09:44)
--- NOTE | 2020-11-11 10:02 | P.PN_ITS ---
Subjective Subjective: Interval history: feels well. Denies chest pain, dyspnea Medications: Reviewed: Yes Vitals/I&O/Wt Last Vital Signs Temp 97.9 F 11/11/20 08:00 Pulse 64 11/11/20 08:00 Resp 16 11/11/20 08:00 BP 137/72 11/11/20 08:00 Pulse Ox 94 11/11/20 08:00 11/10/20 11/11/20 11/11/20 22:59 06:59 14:59 Intake Total 484.333 / 784.333 300 / 1084.333 120 / 120 Output Total 225 / 1816 Balance 484.333 / -806.667 75 / -731.667 120 / 120 Weight last 48 hrs Weight 91.8 kg Weight 95.617 kg Physical Exam Const: COMMON NORMALS: no acute distress GENERAL APPEARANCE: cooperative Extremity: GENERAL: No edema Data : 11/11/20 04:10 11/11/20 04:10 A&P Additional A&P Information 1.ESRD 2. non-STEMI, cath with stent placement yesterday 3. Hypertension, well-controled Plan: HD today, 3h 1500 ml UF. Disposition per primary service. 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
[2020-11-11 11:37] LABS: Glucose Point of Care 194 mg/dL (70-110)
--- NOTE | 2020-11-11 12:12 | PM.PN ---
Subjective Subjective: Interval history: Denies any complaint any chest pain. Appear to be stable. He is status post dialysis Medications: Reviewed: Yes Vitals/I&O/Wt Last Vital Signs Temp 97.9 F 11/11/20 08:00 Pulse 64 11/11/20 08:00 Resp 16 11/11/20 08:00 BP 137/72 11/11/20 08:00 Pulse Ox 94 11/11/20 08:00 11/10/20 11/11/20 11/11/20 22:59 06:59 14:59 Intake Total 484.333 / 784.333 300 / 1084.333 120 / 120 Output Total 225 / 1816 Balance 484.333 / -806.667 75 / -731.667 120 / 120 Weight last 48 hrs Weight 202 lb 6.15 oz Weight 210 lb 12.8 oz Physical Exam Narrative: EXAM NARRATIVE: GENERAL: Patient is alert, awake and oriented x3. NECK: No jugular vein distension. HEENT: No cyanosis. No icterus. No pallor. HEART: Regular S1 and S2. No murmur, rub or gallop. LUNGS: Clear to auscultate bilaterally. ABDOMEN: Soft, nontender and nondistended. Positive bowel sounds. No guarding, rebound or tenderness. CENTRAL NERVOUS SYSTEM: Grossly nonfocal. EXTREMITIES: Lower extremities without edema bilaterally. Data : 11/11/20 04:10 11/11/20 04:10 A&P Assessment and plan (1) Non-ST elevated myocardial infarction (non-STEMI): Patient underwent coronary angiogram that showed moderate to severe mid to distal LAD stenosis. We attempted FFR however because of calcification, FFR wire could not be advanced. Post FFR angiogram showed worse stenosis that was severe and was hazy, we proceeded with PCI of the mid to distal LAD. A medium sized diagonal artery was pinched at the site of stent placement. Patient also had severe stenosis of proximal to mid RCA which is small to medium sized vessel. Postprocedure patient again started complaining of chest pain. He described it as heartburn that was radiating to the jaw. EKG had mild ST depressions in inferior leads however no ST elevation was noted. He was put on nitro drip however chest pain was not resolving. He was taken back to the [facility] for repeat angiogram. It showed haziness with possible dissection at the distal edge of the stent in LAD. We put a second stent to cover that area. Attempt was made to cross into the diagonal artery to perform balloon angioplasty of the diagonal ostium however wire would not cross into the vessel. As it was a small to medium sized vessel, we decided on medical therapy. He also underwent PCI of the proximal to mid RCA as well. At the end of the procedure patient's chest pain was resolved. No ischemic EKG changes. During the 2 procedures patient received significant contrast volume which was more than 500 cc. Will recommend performing dialysis before patient is discharged tomorrow. Continue aspirin and Plavix. On today's visit dated 11/11/2020 patient is doing fine from cardiovascular perspective he status post drug-eluting stent to RCA and LAD. Doing fine from cardiovascular perspective continue current regimen he is status post dialysis. Patient can be discharged home on Plavix aspirin statin beta-artem. He will be following up with cardiology in 7 days. Status: Acute (2) ESRD (end stage renal disease): Status post dialysis. Appear to be stable. Status: Acute (3) Dyslipidemia: On statin. Continue current regimen Status: Acute (4) Diabetes mellitus: As per medicine. Status: Acute Qualifiers: Diabetes mellitus complication status: with hyperglycemia Diabetes mellitus chcf insulin use: with computer terminal operator use Diabetes mellitus type: type 2 Qualified Code(s): E11.65 - Type 2 diabetes mellitus with hyperglycemia; Z79.4 - intermediate (current) use of insulin (5) Benign essential hypertension with target blood pressure below 140/90: Well-controlled continue medicine. Status: Acute Additional A&P Information Thank you for involving us with care of patient. We will continue to follow. Please call with questions. Attestations Medical Necessity Statement*: Patient can be discharged from cardiovascular perspective. 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
[2020-11-11] MEDS: heparin, porcine 1,000 unit/mL INJ 10 mL HE (15:15)
--- NOTE | 2020-11-11 15:15 | PC.NURSE ---
patient discharged home self care. Patient provided discharge instructions as well as follow up care patient assisted to wheel chair and accompanied to private vehicle patient alert oriented and in stable condition upon departure All belonging send ahead with spouse
--- NOTE | 2020-11-11 17:30 | PC.NURSE ---
received call from patient after discharge patient confirming he was on atorvastatin 80mg PO QHS Take 1/2 tab every evening
--- NOTE | 2020-11-12 01:24 | PC.HD ---
Dr Bocanegra ntfd of hypotension and decreased fluid removal
== END 2020-11-11 16:05 | disposition home or self-care (01) | DRG 246 ==
LOC: ER 09:20 → CSU 13:00
PROVIDERS: Internal Medicine; Internal Medicine Cardiovascular Disease; Admitting Provider Internal Medicine; Emergency Provider Family Medicine; PCP Family Medicine; Visit Provider Internal Medicine
PROC: 027136Z Dilation of Coronary Artery, Two Arteries with Three Drug-eluting Intraluminal Devices, Percutaneous Approach (ICD-10-PCS; principal; 2020-11-10 12:00)
PROC: 027136Z Dilation of Coronary Artery, Two Arteries with Three Drug-eluting Intraluminal Devices, Percutaneous Approach (ICD-10-PCS; 2020-11-10 12:00)
DX: I21.4 Non-ST elevation (NSTEMI) myocardial infarction (principal); N18.6 End stage renal disease; I13.2 Hypertensive heart and chronic kidney disease with heart failure and with stage 5 chronic kidney disease, or end stage renal disease; I25.10 Atherosclerotic heart disease of native coronary artery without angina pectoris; Z95.5 Presence of coronary angioplasty implant and graft; E13.22 Other specified diabetes mellitus with diabetic chronic kidney disease; E13.65 Other specified diabetes mellitus with hyperglycemia; Z99.2 Dependence on renal dialysis; D63.1 Anemia in chronic kidney disease; I65.23 Occlusion and stenosis of bilateral carotid arteries; G89.29 Other chronic pain; M54.9 Dorsalgia, unspecified; Z86.73 Personal history of transient ischemic attack (TIA), and cerebral infarction without residual deficits; E78.5 Hyperlipidemia, unspecified; Z86.16 Personal history of COVID-19; E03.9 Hypothyroidism, unspecified; I25.2 Old myocardial infarction; G47.33 Obstructive sleep apnea (adult) (pediatric); Z79.4 Long term (current) use of insulin; Z79.82 Long term (current) use of aspirin; R07.9 Chest pain, unspecified
CPT/HCPCS: 36415; 36416; 71045; 80048; 80053; 82962; 83735; 84443; 84484; 85025; 85347; 85730; 86803; 87340; 93005; 93454; 96372; 99285; C1725; C1760; C1769; C1874; C1887; C1894; C9600; G0378; J0153; J0360; J1644; J1815; J2250; J2405; J3010; J3490; J7030; Q3014; Q9967

== ENCOUNTER 2020-11-14 09:57 | Observation (INO) | payer MEDICARE, SELFPAY ==
[2020-11-14] VITALS (12 sets, daily range): BP systolic 133–208; BP diastolic 71–101; PULSE 57–89; RESP 16–18; TEMP 36.9; O2SAT 94–99; BMI 31.6
--- NOTE | 2020-11-14 10:44 | XR_ITS ---
WS: [id number] XR chest 1V portable [id number] REASON FOR EXAM: chest pain FINDINGS: Transverse right jugular dual-lumen dialysis catheter in place. Thoracic pedicle screws and connecting bars. Moderate tortuosity the thoracic aorta without aneurysmal dilatation. The heart is mildly enlarged. No active pulmonary parenchymal pleural disease. Moderate degenerative arthropathy in the left shoulder joint. Severe degenerative arthropathy in the right shoulder joint with severe sclerosis and alteration of the glenoid. XR/XR chest 1V portable [id number] IMPRESSION: No acute chest abnormality.
--- NOTE | 2020-11-14 10:45 | ECG_ITS ---
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 Measurements Intervals [place] Rate: 76 P: 52 MO: 239 QRS: 2 QRSD: 92 T: 66 QT: 382 QTc: 431 Interpretive Statements SINUS RHYTHM WITH FIRST DEGREE AV BLOCK POSSIBLE ANTERIOR MYOCARDIAL INFARCTION [30 ms Q WAVE IN V3/V4, OR R < 0.2 mV IN V4], OF INDETERMINATE AGE Compared to ECG 11/10/2020 14:43:30 Myocardial infarct finding now present Sinus arrhythmia no longer present ST (T wave) deviation no longer present Electronically Signed On 11-23-2020 12:37:19 CDT by Tiara Bermeo M.D. [id number]
--- NOTE | 2020-11-14 12:45 | ECG_ITS ---
[facility] Test Date: 2020-11-14 Pat Name: Eliazar Hogan Department: Room: Gender: Male Cardroom Hand: : 1950 Requested By: Jacquelyn Sun Order Number: [id number] Flor MD: Daryl Ashraf M.D. Measurements Intervals [place] Rate: 74 P: 52 MI: 236 QRS: 3 QRSD: 107 T: 59 QT: 389 QTc: 433 Interpretive Statements SINUS RHYTHM WITH FIRST DEGREE AV BLOCK POSSIBLE ANTERIOR MYOCARDIAL INFARCTION [30 ms Q WAVE IN V3/V4, OR R < 0.2 mV IN V4], OF INDETERMINATE AGE Compared to ECG 11/14/2020 11:30:37 No significant changes Electronically Signed On 11-15-2020 0:54:12 CDT by Daryl Ashraf M.D. [id number]
[2020-11-14 14:05] LABS: Basophils # 0.1 10^3/uL (0.0-0.1); Basophils % 0.8 %; Eosinophils # 0.5 10^3/uL (0.0-0.8); Eosinophils % 4.7 %; Hematocrit 34.9 % (42.0-52.0); Hemoglobin 10.7 g/dL (11.7-16.6); Lymphocytes # 1.1 10^3/uL (0.8-4.8); Lymphocytes % 11.5 %; Mean Corpuscular HGB Conc 30.7 g/dL (30.0-36.0); Mean Corpuscular Hemoglobin 28.2 pg (28.0-34.0); Mean Corpuscular Volume 91.8 fL (80-94); Mean Platelet Volume 9.9 fL (7.4-10.4); Monocytes # 0.8 10^3/uL (0.2-0.9); Monocytes % 8.2 %; Neutrophils # 7.27 10^3/uL (1.8-7.7); Neutrophils % 74.4 %; Nucleated Red Blood Cells % 0 %; Platelet Count 204 10^3/cmm (130-400); Red Cell Distribution Width 15.9 % (12.1-15.1); White Blood Count 9.8 10^3/uL (4.0-10.0)
[2020-11-14 14:30] LABS: Troponin(5th) Baseline 1114 ng/L (0-15)
[2020-11-14 14:37] LABS: Alanine Aminotransferase 17 U/L (0-41); Albumin Level 3.9 g/dL (3.5-5.2); Alkaline Phosphatase 283 IU/L (40-130); Anion Gap 18.8 (5-19); Aspartate Amino Transferase 15 U/L (0-40); Blood Urea Nitrogen 22 mg/dL (8-23); Calcium 8.6 mg/dL (8.5-10.5); Carbon Dioxide 25 mmol/L (22-29); Chloride 93 mmol/L (98-107); Globulin 2.3 g/dL (1.3-4.6); Glucose 281 mg/dL (65-115); NT Pro B Type Natriuretic Pept 4851 pg/mL (0-125); Osmolality Calculated 287 mOsm/kg (285-295); Potassium 4.8 mmol/L (3.5-5.1); Sodium 132 mmol/L (136-145); Total Bilirubin 0.4 mg/dL (0.15-1.2); Total Protein 6.2 g/dL (6.6-8.7)
--- NOTE | 2020-11-14 14:49 | W.ED.CHESTPA ---
HPI - Chest Pain General: Chief Complaint: ER Hold Stated Complaint: Chest Pain Time Seen by Provider: 11/14/20 14:06 History of Present Illness: HPI narrative: The patient is a 70-year-old male with past medical history coronary artery disease with recent cardiac catheterization x2 with 3 stents placed. He was discharged on November 11, 2020. He comes today complaining of midsternal chest pain, shortness of breath. He says he took 2 nitroglycerin at home which did not really help his pain. On the way to the ER he says the chest pain started to ease and now it is mostly gone. EKG shows first-degree block but no ST changes. He still complains of mild tingling in bilateral hands. He is a dialysis patient Friday and had it yesterday. He has a right chest cath and has been on dialysis for past few months. Also has medical history diabetes, hypertension. MD complaint: chest heaviness Pertinent past history: coronary artery disease Timing of current episode: constant and other (nearly resolved) Prior episodes: Yes Onset: during rest and during exertion Pain location: substernal and left chest Severity: moderate Quality: heaviness Relieving factors: nothing and rest Exacerbating factors: other (deep breaths, movement. ) Associated symptoms: Reports no associated symptoms; Deny abdominal pain, dyspnea or palpitations Treatment prior to arrival: aspirin and nitroglycerin Review of Systems General: Reports: 10 or more systems reviewed and unremarkable except in HPI and below Const: Denies: fatigue Eyes: Denies: change in vision, blurry vision or eye redness ENMT: Denies: throat pain, swelling of lips/tongue, ear or mastoid pain or nasal congestion Card: Reports: chest pain; Denies: palpitations, irregular heart rhythm, edema, dyspnea on exertion or orthopnea Resp: Denies: dyspnea, productive cough or non-productive cough GI: Denies: abdominal pain, diarrhea or GI cramping : Denies: flank pain, urinary frequency or urinary urgency Musc: Denies: neck pain, back pain, extremity pain, joint pain, joint redness, limited range of motion or muscle weakness Skin/Breast: Denies: rash, pruritus, erythema, skin pain or skin tenderness Neuro: Denies: headache(s), numbness in extremities, weakness in extremities, sensory changes, difficulty walking, dizziness, confusion or Slurred speech present Psych: Denies: anxiety or depression Endo: Denies: polyuria All/Imm: Denies: urticaria, throat swelling or tongue swelling PFSH ED PFSH: Medical History Acute kidney injury superimposed on CKD Anemia ASHD (arteriosclerotic heart disease) Carotid stenosis, bilateral Chronic back pain Chronic kidney disease (CKD) Chronic kidney disease (CKD) stage G5/A1, glomerular filtration rate (GFR) less than or equal to 15 mL/min/1.73 square meter and albuminuria creatinine ratio less than 30 mg/g Congestive 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 CVA (cerebral vascular accident) Diabetes 1.5, managed as type 2 Dyslipidemia Essential hypertension History of 2019 novel coronavirus disease (COVID-19) Hypothyroidism Myocardial infarction KAITLYNN (obstructive sleep apnea) Surgical History Hx of cholecystectomy Previous back surgery S/P angioplasty with stent S/P cataract extraction S/P hemodialysis catheter insertion Family History Mother CAD (coronary artery disease) Stroke Sister Hypertension Social History Alcohol intake: never Household members: spouse Marital status: service: Yes branch: [employer] Current occupational status: employed Current occupation: [employer] History of recent travel: No Current gender identity: Male Physical Exam Const: COMMON NORMALS: no acute distress, average body habitus, patient oriented x3, no limitations, healthy appearing, alert and well nourished GENERAL APPEARANCE: cooperative, comfortable, well kempt and well developed ORIENTATION/CONSCIOUSNESS: Yes awake, Yes oriented to person, Yes oriented to place and Yes oriented to time HENMT: COMMON NORMALS: normocephalic, external ears normal and Normal external nose present HEAD & SCALP: normal to inspection and normocephalic NOSE: Normal external nose present EXTERNAL EAR: Yes external ears normal MOUTH: Normal oral and palatal mucosa present THROAT: posterior oropharynx normal Eye: COMMON NORMALS: Equal, round and reactive pupils present and EOMs intact bilaterally GENERAL EYE: appearance normal, both eyes and all related structures PUPIL: Yes Equal, round and reactive pupils present Neck/C-Spine: COMMON NORMALS: full ROM, no lymphadenopathy, no meningeal signs and no JVD GENERAL: Yes normal visual inspection Lymph: LYMPHATIC: no lymphadenopathy noted Chest: COMMONS NORMALS: normal inspection of the chest and normal palpation of entire chest wall Resp: COMMON NORMALS: normal respiratory effort, No retractions, No use of accessory muscles, clear to auscultation bilaterally and percussion normal EFFORT & INSPECTION: Yes able to speak in complete sentences AUSCULTATION: clear to auscultation bilaterally PERCUSSION: percussion normal Cardio: COMMON NORMALS: no JVD, regular rate, regular rhythm, S1 normal heart sound present, S2 normal heart sound present and Peripheral pulses 2+ throughout RATE: regular rate RHYTHM: regular rhythm HEART SOUNDS: S1 normal heart sound present and S2 normal heart sound present PERIPHERAL PULSES: Peripheral pulses 2+ throughout GI: COMMON NORMALS: Normal to inspection, nondistended, normoactive bowel sounds present, Soft to palpation, non-tender and no masses INSPECTION: Yes normal to inspection PALPATION: Yes Soft to palpation : COMMON NORMALS: Yes no CVA tenderness BLADDER/KIDNEY EXAM: Yes no CVA tenderness Back/Pelvis: COMMON NORMALS: no CVA tenderness, thoracic and lumbar spine normal to inspection, no thoracic nor lumbar tenderness and thoraco-lumbar ROM normal Extremity: COMMON NORMALS: normal to inspection, full ROM, capillary refill normal, no joint enlargement and no pedal edema GENERAL: Yes normal exam except as noted Neuro: COMMON NORMALS: patient oriented x3, CN's II-XII intact bilaterally, moves all extremities, no focal motor deficits, no sensory deficits noted and gait normal SENSORIUM/ORIENTATION: Yes alert, Yes oriented to person, Yes oriented to place and Yes oriented to time MENINGEAL SIGNS: Yes no meningeal signs Psych: COMMON NORMALS: mental status grossly normal, Normal thought process present, cooperative, normal affect and speech normal APPEARANCE: Yes well kempt ATTITUDE: Yes calm SPEECH: Yes normal speech THOUGHT PROCESS: Normal thought process present Skin: COMMON NORMALS: no rashes or lesions noted GENERAL SKIN EXAM: no rashes or lesions noted Course Vital Signs: Vital signs: Vital Signs Temperature 98.4 F 11/14/20 10:12 Pulse Rate 57 L 11/14/20 22:55 Respiratory Rate 16 11/14/20 22:55 Blood Pressure 167/98 11/14/20 22:55 Pulse Oximetry 96 11/14/20 22:55 MDM - Chest Pain MDM Narrative: Medical decision making narrative: The patient came to the ER with acute chest pain which have mostly resolved by the time he was seen. Troponin was elevated significantly at 1114. 2-hour was slightly improved. He has end-stage renal disease on dialysis Friday and Friday. He also got cardiac catheterization with multiple stents during his last admission less than a week ago. Discussed with Dr. Ryan who will consult on the patient and recommends heparin drip. Discussed with Dr. Sanchez who accepts for observation. Lab Data: Labs: Lab Results 11/14/20 11/14/20 11/14/20 Range/Units 13:58 13:58 13:58 WBC 9.8 (4.0-10.0) 10^3/ uL RBC 3.80 L (4.1-5.3) 10^6/u L Hgb 10.7 L (11.7-16.6) g/dL Hct 34.9 L (42.0-52.0) % MCV 91.8 (80-94) fL MCH 28.2 (28.0-34.0) pg MCHC 30.7 (30.0-36.0) g/dL RDW 15.9 H (12.1-15.1) % Plt Count 204 (130-400) 10^3/c mm MPV 9.9 (7.4-10.4) fL Neut % (Auto) 74.4 % Lymph % (Auto) 11.5 % Mccracken % (Auto) 8.2 % Eos % (Auto) 4.7 % Baso % (Auto) 0.8 % Neut # (Auto) 7.27 (1.8-7.7) 10^3/u L Lymph # (Auto) 1.1 (0.8-4.8) 10^3/u L Mccracken # (Auto) 0.8 (0.2-0.9) 10^3/u L Eos # (Auto) 0.5 (0.0-0.8) 10^3/u L Baso # (Auto) 0.1 (0.0-0.1) 10^3/u L Nucleated RBC % (a uto) 0 % Nucleated RBCs # 0.0 /100WBC Sodium 132 L (136-145) mmol/L Potassium 4.8 (3.5-5.1) mmol/L Chloride 93 L (98-107) mmol/L Carbon Dioxide 25 (22-29) mmol/L Anion Gap 18.8 (5-19) BUN 22 (8-23) mg/dL Creatinine 4.5 H (0.7-1.2) mg/dL GFR Calculation 13.0 L (90-130) mL/min Glucose 281 H (65-115) mg/dL Calculated Osmolal ity 287 (285-295) mOsm/k g Calcium 8.6 (8.5-10.5) mg/dL Total Bilirubin 0.4 (0.15-1.2) mg/dL AST 15 (0-40) U/L ALT 17 (0-41) U/L Alkaline Phosphata se 283 H (40-130) IU/L Troponin T Baselin e 1114 H* (0-15) ng/L Troponin T 120 Min ruby (0-15) ng/L Delta Troponin T (0-10) ABS# NT-Pro-B Natriuret Pep 4851 H (0-125) pg/mL Total Protein 6.2 L (6.6-8.7) g/dL Albumin 3.9 (3.5-5.2) g/dL Globulin 2.3 (1.3-4.6) g/dL Urine Color (Yellow) Urine Appearance (CLEAR) Urine pH (5-7) Ur Specific Gravit y (1.005-1.030) Urine Protein (Negative) Urine Glucose (UA) (Normal) Urine Ketones (Negative) Urine Blood (Negative) Urine Nitrate (Negative) Urine Bilirubin (Negative) Prot Sulfosalicyli c Acd (Negative) Urine Urobilinogen (Negative) mg/dL Ur Leukocyte Amelia ase (Negative) SARS-CoV-2 Ag (Rap id) (Negative) 11/14/20 11/14/20 11/14/20 Range/Units 15:19 15:39 18:53 WBC (4.0-10.0) 10^3/ uL RBC (4.1-5.3) 10^6/u L Hgb (11.7-16.6) g/dL Hct (42.0-52.0) % MCV (80-94) fL MCH (28.0-34.0) pg MCHC (30.0-36.0) g/dL RDW (12.1-15.1) % Plt Count (130-400) 10^3/c mm MPV (7.4-10.4) fL Neut % (Auto) % Lymph % (Auto) % Mccracken % (Auto) % Eos % (Auto) % Baso % (Auto) % Neut # (Auto) (1.8-7.7) 10^3/u L Lymph # (Auto) (0.8-4.8) 10^3/u L Mccracken # (Auto) (0.2-0.9) 10^3/u L Eos # (Auto) (0.0-0.8) 10^3/u L Baso # (Auto) (0.0-0.1) 10^3/u L Nucleated RBC % (a uto) % Nucleated RBCs # /100WBC Sodium (136-145) mmol/L Potassium (3.5-5.1) mmol/L Chloride (98-107) mmol/L Carbon Dioxide (22-29) mmol/L Anion Gap (5-19) BUN (8-23) mg/dL Creatinine (0.7-1.2) mg/dL GFR Calculation (90-130) mL/min Glucose (65-115) mg/dL Calculated Osmolal ity (285-295) mOsm/k g Calcium (8.5-10.5) mg/dL Total Bilirubin (0.15-1.2) mg/dL AST (0-40) U/L ALT (0-41) U/L Alkaline Phosphata se (40-130) IU/L Troponin T Baselin e (0-15) ng/L Troponin T 120 Min ruby 1039 H (0-15) ng/L Delta Troponin T -75 L (0-10) ABS# NT-Pro-B Natriuret Pep (0-125) pg/mL Total Protein (6.6-8.7) g/dL Albumin (3.5-5.2) g/dL Globulin (1.3-4.6) g/dL Urine Color Yellow (Yellow) Urine Appearance Clear (CLEAR) Urine pH 8 H (5-7) Ur Specific Gravit y 1.010 (1.005-1.030) Urine Protein Neg (Negative) Urine Glucose (UA) Norm (Normal) Urine Ketones Negative (Negative) Urine Blood Neg (Negative) Urine Nitrate Negative (Negative) Urine Bilirubin Neg (Negative) Prot Sulfosalicyli c Acd Negative (Negative) Urine Urobilinogen Norm (Negative) mg/dL Ur Leukocyte Amelia ase Negative (Negative) SARS-CoV-2 Ag (Rap id) Negative (Negative) Discharge Plan Discharge Patient Disposition: Placed in Observation Admit Provider: Kenya Sanchez Clinical Impression: Elevated troponin Coding Level of Care Code ED Development And Housing Director for Chg 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
[2020-11-14] MEDS: nitroglycerin 0.4 mg sublingual Tablet SUBLINGUAL (15:16)
[2020-11-14] MEDS: aspirin 325 mg Tablet PO (15:27)
[2020-11-14] MEDS: heparin drip 25,000 UNIT/500 ML PREMIX 26.42 UNIT IV (15:43)
--- NOTE | 2020-11-14 15:44 | PC.NURSE ---
Heparin drip verified at 1543 with YUNIOR Kincaid
[2020-11-14 16:27] LABS: Troponin 5 2HR 1039 ng/L (0-15); Troponin 5 2HR Delta -75 ABS# (0-10)
--- NOTE | 2020-11-14 16:45 | ECG_ITS ---
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 Measurements Intervals [place] Rate: 67 P: 47 MD: 253 QRS: 14 QRSD: 107 T: 48 QT: 421 QTc: 446 Interpretive Statements SINUS RHYTHM WITH FIRST DEGREE AV BLOCK Compared to ECG 11/14/2020 13:16:50 Myocardial infarct finding no longer present Electronically Signed On 11-15-2020 0:53:03 CDT by Daryl Ashraf M.D. [id number]
--- NOTE | 2020-11-14 17:11 | P.HP_ITS ---
Providers/Chief Complaint Primary Care Provider: Carlee Carreon DO Chief Complaint: Chest Pain History of Present Illness Eliazar Hogan is a 70 year old male who was recently discharged on 11/11, underwent cardiac catheterization on 11/10 LAD lesion was stented, following angiogram he started having recurrence of chest pain he was brought back to [facility] [employer] [facility] and RCA was stented. (He was taken back to the [facility] [employer] [facility] for repeat angiogram. It showed haziness with possible dissection at the distal edge of the stent in LAD. second stent p laced to cover that area. Attempt was made to cross into the diagonal artery to perform balloon angioplasty of the diagonal ostium however wire would not cross into the vessel. As it was a small to medium sized vessel, it was decided to rx with medical therapy. He also underwent PCI of the proximal to mid RCA as well. At the end of the procedure patient's chest pain was resolved.) Patient is stating that his symptoms started this morning after breakfast which she describing as something different than last time he describing his chest pain as pressure-like sensation radiating towards his arms bilaterally associated with headache he did not notice any nausea, vomiting, diaphoresis. His chest pain lasted for about 1 hour until he took third nitroglycerin in the ER, at home he took 1 aspirin to sublingual nitroglycerin which did not relieve his symptoms. Diagnostics in the ER revealed hypotension, hemoglobin 10, downtrending troponin, nonspecific changes on EKG, by the time I saw him he was chest pain- free hemodynamically stable Review of Systems Const: Denies: fever(s) Eyes: Denies: change in vision ENMT: Denies: throat pain Card: Reports: chest pain Resp: Denies: dyspnea GI: Denies: abdominal pain : Denies: flank pain Musc: Denies: neck pain Skin/Breast: Denies: rash Neuro: Denies: headache(s) Psych: Denies: anxiety Endo: Denies: polyuria Jermain/Lymph: Denies: easy bruising All/Imm: Denies: urticaria Medications/Allergies Home Medications Medication Instructions Recorded Confirmed Last Taken Type acetaminophen 500 mg tablet 1,000 mg PO PRN 05/05/19 11/14/20 11/14/20 History nitroglycerin 0.4 mg sublingual 0.4 mg SUBLINGUAL Q5M PRN 05/05/19 11/14/20 11/14/20 History tablet pantoprazole 40 mg tablet,delayed 40 mg PO DAILY@0500 05/05/19 11/14/20 11/14/20 History release terazosin 10 mg capsule 10 mg PO BID@05,18 cap 05/05/19 11/14/20 11/14/20 History allopurinol 300 mg tablet 300 mg PO DAILY@1800 tab 05/06/19 11/14/20 11/13/20 History furosemide 80 mg PO BID@0500,1800 04/24/20 11/14/20 11/14/20 History insulin aspart U-100 100 unit/mL See Rx Instructions .ROUTE 08/22/20 11/14/20 11/08/20 Rx (3 mL) subcutaneous pen .COMPLEX #15 ml aspirin 81 mg PO DAILY@0500 09/01/20 11/14/20 11/14/20 History clopidogrel 75 mg PO DAILY@0500 09/01/20 11/14/20 11/13/20 History insulin detemir U-100 8 unit SUBCUT BID 09/01/20 11/14/20 11/13/20 History Diabetic Shoes #1 ea 09/13/20 11/14/20 Unknown Rx sevelamer carbonate 1,600 mg PO BID 10/19/20 11/14/20 11/14/20 History Diabetic Shoes #1 ea 10/25/20 11/14/20 Unknown Rx hydralazine 100 mg tablet 100 mg PO PRN tab 10/27/20 11/14/20 Unknown History amlodipine 5 mg PO DAILY 11/09/20 11/14/20 11/14/20 History levothyroxine 25 mcg PO DAILY@05 11/09/20 11/14/20 11/14/20 History metoprolol tartrate 25 mg PO BID@05,18 11/09/20 11/14/20 11/09/20 04:30 History atorvastatin 40 mg PO BEDTIME 11/11/20 11/14/20 11/13/20 History cetirizine [Zyrtec] 10 mg PO DAILY 11/14/20 11/14/20 11/14/20 History escitalopram oxalate [Lexapro] 2,010 mg PO DAILY 11/14/20 11/14/20 11/14/20 History isosorbide mononitrate 60 mg PO DAILY 11/14/20 11/14/20 11/14/20 History Allergies Allergy/AdvReac Type Severity Reaction Status Date / Time chicken derived Allergy Unknown Unknown Verified 11/14/20 10:25 morphine AdvReac Mild dizzy & Verified 11/14/20 10:25 nauseous PFSH Acute PFSH: Medical History Acute kidney injury superimposed on CKD Anemia ASHD (arteriosclerotic heart disease) Carotid stenosis, bilateral Chronic back pain Chronic kidney disease (CKD) Chronic kidney disease (CKD) stage G5/A1, glomerular filtration rate (GFR) less than or equal to 15 mL/min/1.73 square meter and albuminuria creatinine ratio less than 30 mg/g Congestive 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 CVA (cerebral vascular accident) Diabetes 1.5, managed as type 2 Dyslipidemia Essential hypertension History of 2019 novel coronavirus disease (COVID-19) Hypothyroidism Myocardial infarction KAITLYNN (obstructive sleep apnea) Surgical History Hx of cholecystectomy Previous back surgery S/P angioplasty with stent S/P cataract extraction S/P hemodialysis catheter insertion Family History Mother CAD (coronary artery disease) Stroke Sister Hypertension Social History Alcohol intake: never Household members: spouse Marital status: service: Yes branch: [employer] Current occupational status: employed 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 History of recent travel: No Current gender identity: Male Vitals/I&O/Wt Last Vital Signs Temp 98.4 F 11/14/20 10:12 Pulse 66 11/14/20 15:17 Resp 18 11/14/20 15:17 BP 182/90 11/14/20 15:17 Pulse Ox 94 11/14/20 15:17 Weight last 48 hrs Weight 94.347 kg Physical Exam Narrative: EXAM NARRATIVE: Patient was laying comfortably without any active chest pain Hemodynamically stable S1, S2 no signs of heart failure or murmur Abdomen soft nontender bowel sound present Has right-sided dialysis catheter Lower extremity no edema No acute respite distress saturating well on room air EOMI, PERRLA Appropriate mood and affect No joint swelling no sign of cellulitis Groin petechiae and purpura noted without hematoma Data : 11/14/20 13:58 11/14/20 13:58 A&P Assessment and plan (1) Unstable angina: Status: Acute (2) Diabetes mellitus with diabetic polyneuropathy: Status: Acute (3) CAD (coronary artery disease): Status: Acute (4) Diabetes mellitus: Status: Acute Qualifiers: Diabetes mellitus complication status: with hyperglycemia Diabetes mellitus chcf insulin use: with terminal computer operator use Diabetes mellitus type: type 2 Qualified Code(s): E11.65 - Type 2 diabetes mellitus with hyperglycemia; Z79.4 - penitentiary (current) use of insulin (5) ESRD (end stage renal disease): Status: Acute Additional A&P Information Non-ST segment elevation PA/ unstable angina Established coronary disease with recent cardiac cath x2 Patient is chest pain-free, troponin downtrending, EKG nonspecific changes, Dr. Thomas recommended observation to trend his troponin, I would go ahead and start heparin, hemoglobin 10.7 no hematoma around groin noticed petechiae and bruises Continue aspirin, Plavix and AV chris blocking agent We will keep him n.p.o. in case he starts having recurrence of symptoms End-stage renal disease Patient got dialyzed yesterday, will consult telemetry nephro for dialysis tomorrow Diabetes with neuropathy: Patient is complaining of numbness and tingling of his upper extremities without any active chest pain N.p.o. DVT prophylaxis not indicated currently on heparin Full code Attestations Medical Necessity Statement*: Overnight observation to monitor recurrence of symptoms and trend troponin Time Spent in Patient Care: 16 - 35 minutes Coding Level of Care Code Acute Electrodynamicist for g Fwd Diagnoses Unstable angina I20.0 Diabetes mellitus with diabetic polyneuropathy E11.42 CAD (coronary artery disease) I25.10 Diabetes mellitus E11.65; Z79.4 Diabetes mellitus complication status: with hyperglycemia Diabetes mellitus terminal computer operator insulin use: with terminal computer operator use Diabetes mellitus type: type 2 ESRD (end stage renal disease) N18.6
[2020-11-14 19:06] LABS: SARS Covid-2 Antigen Negative (Negative)
--- NOTE | 2020-11-14 19:16 | PC.NURSE ---
Report from YUNIOR Kincaid
[2020-11-14 19:26] LABS: Add Urine Microscopic? NO; Charge for UA Resulting for Rev
[2020-11-14 19:41] LABS: Bilirubin Urine Neg (Negative); Blood Urine Neg (Negative); Glucose Urine UA Norm (Normal); Ketones Urine Negative (Negative); Leukocyte Esterase Urine Negative (Negative); Nitrate Urine Negative (Negative); Protein Urine Neg (Negative); Sulfosalicylic Acid Urine Negative (Negative); Urine Appearance Clear (CLEAR); Urine Color Yellow (Yellow); Urobilinogen Urine Norm (Negative); pH Urine 8 (5-7)
--- NOTE | 2020-11-14 19:56 | P.CONIM_ITS ---
Providers/Reason For Consult Consulting Physician/Specialty*: Cardiology Reason for Consult*: Abnormal cardiac markers Primary Care Provider: Carlee Carreon DO History of Present Illness History of Present Illness Eliazar Hogan is a 70 year old male past medical history significant for end- stage renal disease, hypertension, hyperlipidemia who is on dialysis recently underwent multiple stent placement for significant two-vessel coronary artery disease. He was taken back to [employer] [facility] after first procedure for recurrent chest pain noted to have possible distal stent edge dissection which was treated with another overlapping stent due to highly calcified nature of the vessels small to moderate diagonal branch was jailed noted to have reasonable flow but ostial disease which was not able to be crossed due to highly calcified nature and difficult angle. Since it was small size and caliber vessel and may not affect the longevity it was thought to be managed medically. Patient got good reperfusion in LAD and RCA territory. Post PCI patient did fine denied any complaint. He was dialyzed next morning and discharged home. Today patient presented back with vague chest pressure along with generalized pain aches all over the body. It was difficult to get a good history. Cardiac markers such as troponin generation 5 was elevated around 1100 with delta drop on the second troponin value. He was also noted to have moderately elevated blood pressure. Since patient is high risk for acute coronary syndrome we will observe him overnight. I have detailed discussion with the patient and the family by bedside they agree with the treatment. Meds/Allergies Home Medications and Allergies Home Medications Medication Instructions Recorded Confirmed Last Taken Type acetaminophen 500 mg tablet 1,000 mg PO PRN 05/05/19 11/14/20 11/14/20 History nitroglycerin 0.4 mg sublingual 0.4 mg SUBLINGUAL Q5M PRN 05/05/19 11/14/20 11/14/20 History tablet pantoprazole 40 mg tablet,delayed 40 mg PO DAILY@0500 05/05/19 11/14/20 11/14/20 History release terazosin 10 mg capsule 10 mg PO BID@05,18 cap 05/05/19 11/14/20 11/14/20 History allopurinol 300 mg tablet 300 mg PO DAILY@1800 tab 05/06/19 11/14/20 11/13/20 History furosemide 80 mg PO BID@0500,1800 04/24/20 11/14/20 11/14/20 History insulin aspart U-100 100 unit/mL See Rx Instructions .ROUTE 08/22/20 11/14/20 11/08/20 Rx (3 mL) subcutaneous pen .COMPLEX #15 ml aspirin 81 mg PO DAILY@0500 09/01/20 11/14/20 11/14/20 History clopidogrel 75 mg PO DAILY@0500 09/01/20 11/14/20 11/13/20 History insulin detemir U-100 8 unit SUBCUT BID 09/01/20 11/14/20 11/13/20 History Diabetic Shoes #1 ea 09/13/20 11/14/20 Unknown Rx sevelamer carbonate 1,600 mg PO BID 10/19/20 11/14/20 11/14/20 History Diabetic Shoes #1 ea 10/25/20 11/14/20 Unknown Rx hydralazine 100 mg tablet 100 mg PO PRN tab 10/27/20 11/14/20 Unknown History amlodipine 5 mg PO DAILY 11/09/20 11/14/20 11/14/20 History levothyroxine 25 mcg PO DAILY@11/09/20 11/14/20 11/14/20 History metoprolol tartrate 25 mg PO BID@11/09/20 11/14/20 11/09/20 04:30 History atorvastatin 40 mg PO BEDTIME 11/11/20 11/14/20 11/13/20 History cetirizine [Zyrtec] 10 mg PO DAILY 11/14/20 11/14/20 11/14/20 History escitalopram oxalate [Lexapro] 2,010 mg PO DAILY 11/14/20 11/14/20 11/14/20 History isosorbide mononitrate 60 mg PO DAILY 11/14/20 11/14/20 11/14/20 History Allergies Allergy/AdvReac Type Severity Reaction Status Date / Time chicken derived Allergy Unknown Unknown Verified 11/14/20 10:25 morphine AdvReac Mild dizzy & Verified 11/14/20 10:25 nauseous Current Medications Current Medications Generic Name Dose Route Start Last Admin Trade Name Freq PRN Reason Stop Dose Admin Heparin Sodium/Sodium Chloride 25,000 unit in 500 mls @ 0 mls/hr 11/14/20 14:45 11/14/20 15:43 Heparin Drip IV 14 unit/kg/hr .Q0M SAYRA 26.42 mls/hr Administration Protocol Per Protocol PFSH Acute PFSH: Medical History Acute kidney injury superimposed on CKD Anemia ASHD (arteriosclerotic heart disease) Carotid stenosis, bilateral Chronic back pain Chronic kidney disease (CKD) Chronic kidney disease (CKD) stage G5/A1, glomerular filtration rate (GFR) less than or equal to 15 mL/min/1.73 square meter and albuminuria creatinine ratio less than 30 mg/g Congestive 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 CVA (cerebral vascular accident) Diabetes 1.5, managed as type 2 Dyslipidemia Essential hypertension History of 2019 novel coronavirus disease (COVID-19) Hypothyroidism Myocardial infarction KAITLYNN (obstructive sleep apnea) Surgical History Hx of cholecystectomy Previous back surgery S/P angioplasty with stent S/P cataract extraction S/P hemodialysis catheter insertion Family History Mother CAD (coronary artery disease) Stroke Sister Hypertension Social History Alcohol intake: never Household members: spouse Marital status: service: Yes branch: [employer] Current occupational status: employed Current occupation: [email or web address] History of recent travel: No Current gender identity: Male Vitals/I&O/Wt Last Vital Signs Temp 98.4 F 11/14/20 10:12 Pulse 68 11/14/20 19:09 Resp 18 11/14/20 19:09 BP 185/94 11/14/20 19:09 Pulse Ox 98 11/14/20 19:09 Weight last 48 hrs Weight 208 lb Physical Exam Narrative: EXAM NARRATIVE: GENERAL: Patient is alert, awake and oriented x3. NECK: No jugular vein distension. HEENT: No cyanosis. No icterus. No pallor. HEART: Regular S1 and S2. No murmur, rub or gallop. LUNGS: Clear to auscultate bilaterally. ABDOMEN: Soft, nontender and nondistended. Positive bowel sounds. No guarding, rebound or tenderness. CENTRAL NERVOUS SYSTEM: Grossly nonfocal. EXTREMITIES: Lower extremities without edema bilaterally. A&P Assessment and plan (1) Cardiac enzymes elevated: Could be multifactorial such as may be remnants from the prior [place] 3 to 4 days ago and in the face of negligible clearance due to renal failure still remain high or another case scenario due to small diagonal jailed branch infarct. In both cases would like to observe the patient overnight. We will continue medical management. At this point there is no indication for any invasive strategy. Continue aspirin statin beta-artem Plavix. Will use heparin tonight as per ACS protocol Status: Acute (2) CAD (coronary artery disease): Recently patient underwent intervention off LAD and RCA with 3 drug- eluting stent to LAD and 1 in RCA. Appear to be stable from a coronary disease perspective at the moment we will continue current regimen Status: Acute Qualifiers: Coronary Disease-Associated Artery/Lesion type: [place] artery [place] vs. 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 transplanted heart: [place] heart Associated angina: without angina ESRD (end stage renal disease) N18.6 Essential hypertension I10
--- NOTE | 2020-11-14 20:19 | PC.NURSE ---
Pt denies pain at this time; states I feel ok right now. VSS. in room. Repositioned for comfort. No needs identified at this time. Will continue to monitor.
[2020-11-14 20:29] LABS: Troponin 5 6HR Delta 6 ng/L (0-12)
[2020-11-14 20:33] LABS: Troponin 5 6HR 1120 ng/L (0-15)
--- NOTE | 2020-11-14 22:56 | PC.NURSE ---
Pt resting, lights lowered for comfort. left for the night. No needs identified at this time. VSS.
[2020-11-15 00:46] LABS: Glucose Point of Care 128 mg/dL (70-110)
[2020-11-15 05:27] LABS: Anion Gap 17.2 (5-19); Blood Urea Nitrogen 26 mg/dL (8-23); Calcium 8.8 mg/dL (8.5-10.5); Carbon Dioxide 26 mmol/L (22-29); Chloride 97 mmol/L (98-107); Glomerular Filtration Rate 10.8 mL/min (90-130); Glucose 146 mg/dL (65-115); Osmolality Calculated 289 mOsm/kg (285-295); Potassium 4.2 mmol/L (3.5-5.1); Sodium 136 mmol/L (136-145)
[2020-11-15 05:29] LABS: Basophils # 0.1 10^3/uL (0.0-0.1); Eosinophils # 0.7 10^3/uL (0.0-0.8); Eosinophils % 7.4 %; Hemoglobin 10.6 g/dL (11.7-16.6); Lymphocytes # 1.1 10^3/uL (0.8-4.8); Lymphocytes % 11.5 %; Mean Corpuscular HGB Conc 31.2 g/dL (30.0-36.0); Mean Corpuscular Hemoglobin 28.3 pg (28.0-34.0); Mean Corpuscular Volume 90.9 fL (80-94); Mean Platelet Volume 9.9 fL (7.4-10.4); Monocytes # 0.9 10^3/uL (0.2-0.9); Monocytes % 9.1 %; Neutrophils # 6.72 10^3/uL (1.8-7.7); Neutrophils % 70.5 %; Nucleated Red Blood Cells % 0 %; Platelet Count 191 10^3/cmm (130-400); Red Blood Count 3.74 10^6/uL (4.1-5.3); Red Cell Distribution Width 15.7 % (12.1-15.1); White Blood Count 9.6 10^3/uL (4.0-10.0)
[2020-11-15 06:36] LABS: Glucose Point of Care 171 mg/dL (70-110)
[2020-11-15 07:05] VITALS: BP 165/95; PULSE 62; RESP 18; O2SAT 97
[2020-11-15] MEDS: levothyroxine 25 mcg Tablet PO (07:22)
[2020-11-15] MEDS: aspirin 81 mg EC Tablet PO (07:22)
[2020-11-15] MEDS: clopidogrel 75 mg Tablet PO (07:22)
[2020-11-15] MEDS: pantoprazole DR 40 mg Tablet PO (07:22)
--- NOTE | 2020-11-15 09:01 | PC.CHAP ---
Pastoral Care Encounter/Spiritual Assessment Type of Contact [] Declined internet sales representative visit [] Patient/Family/Request visit [] Outpatient visit [] Follow-up visit [] Physician referral [] Code/Alert [x] Routine visit [] Staff referral [] Actively dying [] Patient sleeping [] Family support [] [] Out of room [] Palliative care [] [] Receiving care in room [] Pre-surgical visit [] Trauma [] Long length of stay [] ICU visit [x] Other: room empty.. not occupied Relational/Emotional Strength [] Patient feels connected with others/family/visitors/staff [] Distress [] Loneliness/isolation [] Abandonment Spirituality of Patient [] Person of Zulma [] Attends Tenriism of their Zulma [] Believes in Prayer [] Reads Bible or Mandaeism materials [] There are Spiritual issues to be addressed Foreign Collection Clerk Interventions [] Prayer [] Active listening [] Non-anxious presence [] Spiritual/emotional support [] Crisis/trauma care [] Spiritual counseling [] Bereavement support [] Provided bereavement packet [] Provided Bible/devotional materials [] Provided toy/stuffed animal, coloring book to patient or family member [] Provided Communion [] Anointing/Martin [] Salvation [x] Completed spiritual assessment [] Other: Impact on Illness or Injury [] Angry [] Fearful [] Anxious [] Often cries [] Exhaustion [] Unable to work [] Unable to attend spiritism [] Unable to walk/stand [] Unable to read [] Unable to drive [] Unable to eat/drink [] Unable to sleep [] Unable to be with family [] Patient intubated [] Other: Summary Time spent with patient
[2020-11-15] MEDS: isosorbide mononitrate ER 60 mg Tablet PO (09:19)
[2020-11-15] MEDS: amlodipine 5 mg Tablet PO (09:20)
[2020-11-15] MEDS: metoprolol tartrate 25 mg Tablet PO (09:20)
[2020-11-15 09:52] LABS: Partial Thromboplastin Time 67.7 SECONDS (23.9-36.7)
--- NOTE | 2020-11-15 11:36 | PM.PN ---
Subjective Subjective: Interval history: No overnight events, patient is chest pain-free, hypertensive, advance diet to renal dialysis, nephro to see him today Vitals/I&O/Wt Last Vital Signs Temp 98.4 F 11/14/20 10:12 Pulse 62 11/15/20 07:05 Resp 18 11/15/20 07:05 BP 165/95 11/15/20 07:05 Pulse Ox 97 11/15/20 07:05 Weight last 48 hrs Weight 94.347 kg Physical Exam Narrative: EXAM NARRATIVE: Patient laying comfortably in his bed S1, S2 no arrhythmia or murmur noted Clinically does not look fluid overloaded Abdomen soft Right-sided dialysis catheter in place No acute respiratory distress saturating well on room air EOMI, PERRLA No neurological deficit Data : 11/15/20 05:02 11/15/20 05:02 A&P Assessment and plan (1) NSTEMI (non-ST elevated myocardial infarction): Status: Acute (2) Elevated troponin: Status: Acute (3) Unstable angina: Status: Acute (4) Diabetes mellitus with diabetic polyneuropathy: Status: Acute Additional A&P Information Non-ST segment elevation [place] No overnight events Troponin stable around 1100 Troponin elevations likely secondary to recent cardiac cath versus chronic kidney disease No recurrence of symptoms, Aggressive blood pressure management Continue aspirin, Plavix and atorvastatin Conservative management, continue medical management, no intervention planned for now Advance diet to renal dialysis End-stage renal disease: Due for dialysis today Diabetes with neuropathy: Numbness and tingling of bilateral upper extremities improved Renal dialysis diet Currently on heparin drip to finish 48 hours Full code Will stay 1 more night in the hospital Change him to inpatient to finish heparin ACS protocol Attestations Medical Necessity Statement*: Anticipating discharge tomorrow if stays clinically stable Time Spent in Patient Care: less than 15 minutes Coding Level of Care Code Acute 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
[2020-11-15 11:44] LABS: Blood Urea Nitrogen 30 mg/dL (8-23); Calcium 8.7 mg/dL (8.5-10.5); Carbon Dioxide 24 mmol/L (22-29); Chloride 96 mmol/L (98-107); Glomerular Filtration Rate 11.3 mL/min (90-130); Glucose 153 mg/dL (65-115); Osmolality Calculated 285 mOsm/kg (285-295); Sodium 133 mmol/L (136-145)
[2020-11-15 11:51] LABS: Anion Gap 17.8 (5-19); Potassium 4.8 mmol/L (3.5-5.1)
[2020-11-15] MEDS: amlodipine 10 mg Tablet PO (11:53)
[2020-11-15] MEDS: heparin drip 25,000 UNIT/500 ML PREMIX 26.42 UNIT IV (11:57)
[2020-11-15 12:05] LABS: Troponin T (5th) Once 1151 ng/L (0-15)
[2020-11-15 12:09] LABS: Glucose Point of Care 162 mg/dL (70-110)
--- NOTE | 2020-11-15 13:34 | P.DS_ITS ---
Discharge Providers Date of Admission: 11/14/20 19:10 Date of Discharge: November 15, 2020 Attending Provider at Admission: Kenya Sanchez MD Attending Provider at Discharge: Kenya Sanchez MD Primary Care Provider: Carlee Carreon DO Diagnoses at Discharge Discharge Diagnosis (1) NSTEMI (non-ST elevated myocardial infarction): Status: Acute (2) Elevated troponin: Status: Acute (3) Unstable angina: Status: Acute (4) Diabetes mellitus with diabetic polyneuropathy: Status: Acute Reason for Visit Reason for Visit: Chest Pain Hospital Course Hospital Course HPI HPI Eliazar Hogan is a 70 year old male who was recently discharged on 11/11, underwent cardiac catheterization on 11/10 LAD lesion was stented, following angiogram he started having recurrence of chest pain 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 (He was taken back to the [facility] for repeat angiogram. It showed haziness with possible dissection at the distal edge of the stent in LAD. second stent placed to cover that area. Attempt was made to cross into the diagonal artery to perform balloon angioplasty of the diagonal ostium however wire would not cross into the vessel. As it was a small to medium sized vessel, it was decided to rx with medical therapy. He also underwent PCI of the proximal to mid RCA as well. At the end of the procedure patient's chest pain was resolved.) Patient is stating that his symptoms started this morning after breakfast which she describing as something different than last time he describing his chest pain as pressure-like sensation radiating towards his arms bilaterally associated with headache he did not notice any nausea, vomiting, diaphoresis. His chest pain lasted for about 1 hour until he took third nitroglycerin in the ER, at home he took 1 aspirin to sublingual nitroglycerin which did not relieve his symptoms. Diagnostics in the ER revealed hypotension, hemoglobin 10, downtrending troponin, nonspecific changes on EKG, by the time I saw him he was chest pain- free hemodynamically stable Hospital course Patient was admitted for management of non-ST segment elevation [place] on heparin drip, patient symptoms never reoccurred, he did not complain of any chest pain or shortness of breath, cardiology evaluated him and managed him medically, no acute intervention recommended. His heparin drip stopped. He will be discharged after hemodialysis. Patient stayed hypertensive during his hospitalization. Coreg was added by cardiology, heart rate fluctuated between 60-70, I added hydralazine 10 mg 3 times daily. Increase amlodipine to 10 mg daily, metoprolol discontinued because of bradycardia He has not appointment for fistula placement at [facility] tomorrow. Cardiology deemed him stable to be discharged today. He will follow up with cardiology. Physical Exam Narrative: EXAM NARRATIVE: atient laying comfortably in his bed S1, S2 no arrhythmia or murmur noted Clinically does not look fluid overloaded Abdomen soft Right-sided dialysis catheter in place No acute respiratory distress saturating well on room air EOMI, PERRLA No neurological deficit Discharge Data Data Completed and Pending: Completed Studies During Hospitalization Category Date Time Status XR chest 1V blake ble 20269 Urgent Exams 11/14/20 10:44 Completed Pending at discharge Category Date Time Status Basic Metabolic P aviva AM LABS Lab 11/16/20 04:00 Ordered Platelet Count Q2 D Lab 11/16/20 04:00 Ordered Platelet Count Q2 D Lab 11/18/20 04:00 Ordered Labs from last 24 hours 11/15/20 11/15/20 11/15/20 11:33 11:21 11:21 WBC RBC Hgb Hct MCV MCH MCHC RDW Plt Count MPV Neut % (Auto) Lymph % (Auto) [place] % (Auto) Eos % (Auto) Baso % (Auto) Neut # (Auto) Lymph # (Auto) [place] # (Auto) Eos # (Auto) Baso # (Auto) Nucleated RBC % (a uto) Nucleated RBCs # APTT Sodium 133 L Potassium 4.8 Chloride 96 L Carbon Dioxide 24 Anion Gap 17.8 BUN 30 H Creatinine 5.1 H GFR Calculation 11.3 L Glucose 153 H POC Glucose 162 H Calculated Osmolal ity 285 Calcium 8.7 Total Bilirubin AST ALT Alkaline Phosphata se Troponin T Gen 5 n g/L 1151 H* Troponin T Baselin e Troponin T 120 Min [place] Troponin T Troponin T Hi Sens 6Hr Troponin T Hi Sens 6Hr [place] NT-Pro-B Natriuret Pep Total Protein Albumin Globulin Urine Color Urine Appearance Urine pH Ur Specific Gravit y Urine Protein Urine Glucose (UA) Urine Ketones Urine Blood Urine Nitrate Urine Bilirubin Prot Sulfosalicyli c Acd Urine Urobilinogen Ur Leukocyte Amelia ase SARS-CoV-2 Ag (Rap id) 11/15/20 11/15/20 11/15/20 09:23 06:33 05:02 WBC RBC Hgb Hct MCV MCH MCHC RDW Plt Count MPV Neut % (Auto) Lymph % (Auto) [place] % (Auto) Eos % (Auto) Baso % (Auto) Neut # (Auto) Lymph # (Auto) [place] # (Auto) Eos # (Auto) Baso # (Auto) Nucleated RBC % (a uto) Nucleated RBCs # APTT 67.7 H Sodium 136 Potassium 4.2 Chloride 97 L Carbon Dioxide 26 Anion Gap 17.2 BUN 26 H Creatinine 5.3 H GFR Calculation 10.8 L Glucose 146 H POC Glucose 171 H Calculated Osmolal ity 289 Calcium 8.8 Total Bilirubin AST ALT Alkaline Phosphata se Troponin T Gen 5 n g/L Troponin T Baselin e Troponin T 120 Min [place] Troponin T Troponin T Hi Sens 6Hr Troponin T Hi Sens 6Hr [place] NT-Pro-B Natriuret Pep Total Protein Albumin Globulin Urine Color Urine Appearance Urine pH Ur Specific Gravit y Urine Protein Urine Glucose (UA) Urine Ketones Urine Blood Urine Nitrate Urine Bilirubin Prot Sulfosalicyli c Acd Urine Urobilinogen Ur Leukocyte [place] SARS-CoV-2 Ag (Rap id) 11/15/20 11/15/20 11/14/20 05:02 00:43 19:59 WBC 9.6 RBC 3.74 L Hgb 10.6 L Hct 34.0 L MCV 90.9 MCH 28.3 MCHC 31.2 RDW 15.7 H Plt Count 191 MPV 9.9 Neut % (Auto) 70.5 Lymph % (Auto) 11.5 [place] % (Auto) 9.1 Eos % (Auto) 7.4 Baso % (Auto) 1.0 Neut # (Auto) 6.72 Lymph # (Auto) 1.1 [place] # (Auto) 0.9 Eos # (Auto) 0.7 Baso # (Auto) 0.1 Nucleated RBC % (a uto) 0 Nucleated RBCs # 0.0 APTT Sodium Potassium Chloride Carbon Dioxide Anion Gap BUN Creatinine GFR Calculation Glucose POC Glucose 128 H Calculated Osmolal ity Calcium Total Bilirubin AST ALT Alkaline Phosphata se Troponin T Gen 5 n g/L Troponin T Baselin e Troponin T 120 Min [place] Delta Troponin T Troponin T Hi Sens 6Hr 1120 H Troponin T Hi Sens 6Hr Delta 6 NT-Pro-B Natriuret Pep Total Protein Albumin Globulin Urine Color Urine Appearance Urine pH Ur Specific Gravit y Urine Protein Urine Glucose (UA) Urine Ketones Urine Blood Urine Nitrate Urine Bilirubin Prot Sulfosalicyli c Acd Urine Urobilinogen Ur Leukocyte [place] SARS-CoV-2 Ag (Rap id) 11/14/20 11/14/20 11/14/20 18:53 15:39 15:19 WBC RBC Hgb Hct MCV MCH MCHC RDW Plt Count MPV Neut % (Auto) Lymph % (Auto) [place] % (Auto) Eos % (Auto) Baso % (Auto) Neut # (Auto) Lymph # (Auto) [place] # (Auto) Eos # (Auto) Baso # (Auto) Nucleated RBC % (a uto) Nucleated RBCs # APTT Sodium Potassium Chloride Carbon Dioxide Anion Gap BUN Creatinine GFR Calculation Glucose POC Glucose Calculated Osmolal ity Calcium Total Bilirubin AST ALT Alkaline Phosphata se Troponin T Gen 5 n g/L Troponin T Baselin e Troponin T 120 Min [place] 1039 H Delta Troponin T -75 L Troponin T Hi Sens 6Hr Troponin T Hi Sens 6Hr [place] NT-Pro-B Natriuret Pep Total Protein Albumin Globulin Urine Color Yellow Urine Appearance Clear Urine pH 8 H Ur Specific Gravit y 1.010 Urine Protein Neg Urine Glucose (UA) Norm Urine Ketones Negative Urine Blood Neg Urine Nitrate Negative Urine Bilirubin Neg Prot Sulfosalicyli c Acd Negative Urine Urobilinogen Norm Ur Leukocyte [place] Negative SARS-CoV-2 Ag (Rap id) Negative 11/14/20 11/14/20 11/14/20 13:58 13:58 13:58 WBC 9.8 RBC 3.80 L Hgb 10.7 L Hct 34.9 L MCV 91.8 MCH 28.2 MCHC 30.7 RDW 15.9 H Plt Count 204 MPV 9.9 Neut % (Auto) 74.4 Lymph % (Auto) 11.5 [place] % (Auto) 8.2 Eos % (Auto) 4.7 Baso % (Auto) 0.8 Neut # (Auto) 7.27 Lymph # (Auto) 1.1 [place] # (Auto) 0.8 Eos # (Auto) 0.5 Baso # (Auto) 0.1 Nucleated RBC % (a uto) 0 Nucleated RBCs # 0.0 APTT Sodium 132 L Potassium 4.8 Chloride 93 L Carbon Dioxide 25 Anion Gap 18.8 BUN 22 Creatinine 4.5 H GFR Calculation 13.0 L Glucose 281 H POC Glucose Calculated Osmolal ity 287 Calcium 8.6 Total Bilirubin 0.4 AST 15 ALT 17 Alkaline Phosphata se 283 H Troponin T Gen 5 n g/L Troponin T Baselin e 1114 H* Troponin T 120 Min [place] Troponin T Troponin T Hi Sens 6Hr Troponin T Hi Sens 6Hr [place] NT-Pro-B Natriuret Pep 4851 H Total Protein 6.2 L Albumin 3.9 Globulin 2.3 Urine Color Urine Appearance Urine pH Ur Specific Gravit y Urine Protein Urine Glucose (UA) Urine Ketones Urine Blood Urine Nitrate Urine Bilirubin Prot Sulfosalicyli c Acd Urine Urobilinogen Ur Leukocyte [place] SARS-CoV-2 Ag (Rap id) Vitals: Last Vital Signs Temp 98.4 F 11/14/20 10:12 Pulse 62 11/15/20 07:05 Resp 18 11/15/20 07:05 BP 165/95 11/15/20 07:05 Pulse Ox 97 11/15/20 07:05 Discharge Plan Discharge Patient Disposition: Home Condition: Stable Prescriptions: New Coreg 6.25 mg tablet 6.25 mg PO BID 30 Days Qty: 60 RF: 3 Continued pantoprazole 40 mg tablet,delayed release (DR/EC) 40 mg PO DAILY@0500 RF: 0 terazosin 10 mg capsule 10 mg PO BID@18 RF: 0 nitroglycerin [Nitrostat] 0.4 mg tablet, sublingual 0.4 mg SUBLINGUAL Q5M PRN (Reason: Chest Pain) RF: 0 acetaminophen [Tylenol Extra Strength] 500 mg tablet 1,000 mg PO PRN RF: 0 allopurinol 300 mg tablet 300 mg PO DAILY@1800 RF: 0 Novolog Flexpen U-100 Insulin 100 unit/mL (3 mL) insulin pen See Rx Instructions .ROUTE .COMPLEX Qty: 15 RF: 0 (DME) Diabetic Shoes See Rx Instructions .ROUTE .MEDSUPPLY Qty: 1 RF: 0 (DME) Diabetic Shoes See Rx Instructions .ROUTE .MEDSUPPLY Qty: 1 RF: 0 furosemide 40 mg tablet 80 mg PO BID@0500,1800 RF: 0 sevelamer carbonate 800 mg tablet 1,600 mg PO BID RF: 0 levothyroxine 25 mcg Tablet 25 mcg PO DAILY@05 RF: 0 atorvastatin 80 mg Tablet 40 mg PO BEDTIME RF: 0 clopidogrel 75 mg tablet 75 mg PO DAILY@0500 RF: 0 aspirin 81 mg tablet,delayed release (DR/EC) 81 mg PO DAILY@0500 RF: 0 insulin detemir U-100 100 unit/mL (3 mL) insulin pen 8 unit SUBCUT BID RF: 0 Zyrtec 10 mg Tablet 10 mg PO DAILY RF: 0 isosorbide mononitrate 60 mg Tablet Extended Release 24 Hr 60 mg PO DAILY RF: 0 Lexapro 20 mg Tablet 2,010 mg PO DAILY RF: 0 Changed hydralazine 100 mg tablet 10 mg PO TID 30 Days Qty: 90 RF: 0 amlodipine 5 mg Tablet 10 mg PO DAILY 30 Days Qty: 30 RF: 0 Discontinued metoprolol tartrate 25 mg Tablet 25 mg PO BID@05,18 RF: 0 Discharge Orders: Discharge Order (Routine); Ordered 11/15/20 Ordered By: Kenya Sanchez Referrals: Kenya Ryan MD [Physician] - 7-10 days Discharge Diet: Cardiac Discharge Activity: Increase activity as tolerated Patient Instructions: Opioid Safety Discharge Attestations Time Spent in Discharge Care*: less than 30 min Quality Metrics Clinical Quality Measures During this hospital stay, did patient experience: None Coding Level of Care Code Acute g FW SD note Diagnoses NSTEMI (non-ST elevated myocardial infarction) I21.4 Elevated troponin R77.8 Unstable angina I20.0 Diabetes mellitus with diabetic polyneuropathy E11.42
[2020-11-15 14:00] VITALS: BP 90/57; PULSE 71; RESP 16; TEMP 36.5
--- NOTE | 2020-11-15 14:06 | PC.NURSE ---
to dialysis via w/c at 1400
--- NOTE | 2020-11-15 15:19 | PM.PN ---
Subjective Subjective: Interval history: Mr. Hogan is doing well on dialysis today. It is noted that he recently underwent angiogram with LAD stent placement, repeat angiogram with RCA stent as well. He really presented to our facility yesterday with some chest pain. Now seen by cardiology, plan for medical management going forwards. Dialysis uneventful so far, hemodynamics remained stable. Minimal extremity edema, no other symptoms of hypervolemia. No uremic symptoms. Vitals/I&O/Wt Last Vital Signs Temp 97.7 F 11/15/20 14:00 Pulse 71 11/15/20 14:00 Resp 16 11/15/20 14:00 BP 90/57 11/15/20 14:00 Pulse Ox 97 11/15/20 07:05 11/15/20 11/15/20 11/15/20 06:59 14:59 22:59 Intake Total 1360 / 1360 Balance 1360 / 1360 Weight last 48 hrs Weight 94.347 kg Physical Exam Narrative: EXAM NARRATIVE: Constitutional: Awake, comfortable HEENT: Wet mucosa, no jvp, non icteric Lungs: Bilaterally clear without discernible wheeze, rales in all lung zones CVS: S1 S2, no murmurs Abdo: Soft, BS ok Ext 4: Minimal edema, peripheral perfusion with no cyanosis Neurological: Grossly non-focal Data : 11/15/20 05:02 11/15/20 11:21 A&P Additional A&P Information 1. ESRD Continue MWF schedule, dialysis ongoing at this time. Tolerating dialysis so far. Parameters of dialysis are reviewed. Dose medication for GFR less than 15 2. Chest pain Recent cardiac intervention as described above. Management per cardiology, wish to manage medically. 3. All other ESRD issues Doing managed as part of standard outpatient ESRD monthly care. No need to follow as an inpatient. 4. Disposition I am anticipating discharge after dialysis, defer to cardiology and hospitalist team. Bebeto Catalan MD Nephrology [phone] Patient seen and examined via telemedicine, with the assistance of the bedside RN > 25 min spent in evaluation and mgmt of patient Attestations Medical Necessity Statement*: mgmt of ESRd Coding Level of Care Code Acute Photographs Curator for Les Fuentes
--- NOTE | 2020-11-15 15:45 | PC.NURSE ---
received from er at 0855.report received.pt denies pain.sr on monitor.on heparin drip as ordered.plan for dialysis today.instructed to notify staff for any chest pain,sob,or for any concerns at all.pt verb understanding of instructions.
[2020-11-15] MEDS: sevelamer 800 mg Tablet 1600 MG PO (17:23)
[2020-11-15] MEDS: allopurinol 300 mg Tablet PO (17:23)
[2020-11-15 17:30] VITALS: BP 105/63; PULSE 64; RESP 16; TEMP 36.1
--- NOTE | 2020-11-15 17:34 | P.PN_ITS ---
Subjective Subjective: Interval history: Denies any chest pain troponin remained steady at 1100. Patient has gone for dialysis. Blood pressure is moderately elevated we will adjust medicine. Medications: Reviewed: Yes Vitals/I&O/Wt Last Vital Signs Temp 97.7 F 11/15/20 14:00 Pulse 71 11/15/20 14:00 Resp 16 11/15/20 14:00 BP 90/57 11/15/20 14:00 Pulse Ox 97 11/15/20 07:05 11/15/20 11/15/20 11/15/20 06:59 14:59 22:59 Intake Total 1360 / 1360 Balance 1360 / 1360 Weight last 48 hrs Weight 208 lb Physical Exam Narrative: EXAM NARRATIVE: GENERAL: Patient is alert, awake and oriented x3. NECK: No jugular vein distension. HEENT: No cyanosis. No icterus. No pallor. HEART: Regular S1 and S2. No murmur, rub or gallop. LUNGS: Clear to auscultate bilaterally. ABDOMEN: Soft, nontender and nondistended. Positive bowel sounds. No guarding, rebound or tenderness. CENTRAL NERVOUS SYSTEM: Grossly nonfocal. EXTREMITIES: Lower extremities without edema bilaterally. Data : 11/15/20 05:02 11/15/20 11:21 A&P Assessment and plan (1) Cardiac enzymes elevated: Could be multifactorial such as may be remnants from the prior [place] 3 to 4 days ago and in the face of negligible clearance due to renal failure still remain high or another case scenario due to small diagonal jailed branch infarct. In both cases would like to observe the patient overnight. We will continue medical management. At this point there is no indication for any invasive strategy. Continue aspirin statin beta-artem Plavix. Will use heparin tonight as per ACS protocol On today's visit patient denies any complaint troponin remain steady and has not increased. Patient has almost no creatinine clearance therefore troponin may be hanging around. Overall I think patient doing fine from cardiovascular perspective we will continue medical management and may can be discharged after dialysis. Status: Acute (2) CAD (coronary artery disease): Recently patient underwent intervention off LAD and RCA with 3 drug- eluting stent to LAD and 1 in RCA. Appear to be stable from a coronary disease perspective at the moment we will continue current regimen. On today's visit patient denies any complaint continue current regimen Status: Acute Qualifiers: Associated angina: without angina Coronary Disease-Associated Artery/Lesion type: [place] artery [place] vs. transplanted heart: [place] heart Qualified Code(s): I25.10 - Atherosclerotic heart disease of [place] coronary artery without angina pectoris (3) ESRD (end stage renal disease): Patient undergoing dialysis today after that he may can be discharged Status: Acute (4) Essential hypertension: Will optimize medicine but switching to Coreg and amlodipine which is increased. Status: Acute Attestations Medical Necessity Statement*: Patient require continuation hospitalization for above defined care. Coding Level of Care Code Established Pt Acute Manager E Learning for Silvestreg Alfredo Patient Type Established History Detailed Exam Detailed Medical Decision Making Moderate Complexity Diagnoses Cardiac enzymes elevated R74.8 CAD (coronary artery disease) I25.10 Associated angina: without angina Coronary Disease-Associated Artery/Lesion type: [place] artery [place] vs. transplanted heart: [place] heart ESRD (end stage renal disease) N18.6 Essential hypertension I10
[2020-11-15 17:36] LABS: Glucose Point of Care 153 mg/dL (70-110)
[2020-11-15 18:32] VITALS: BP 105/63; PULSE 64; RESP 16; TEMP 36.1
[2020-11-15 18:46] LABS: Troponin T (5th) Once 1098 ng/L (0-15)
--- NOTE | 2020-11-15 19:24 | PC.NURSE ---
discharge instructions given and explained.pt verb understanding of instructions.discharged via w/c to exit at this time.spouse to drive pt home.
--- NOTE | 2020-11-15 19:25 | PC.NURSE ---
new prescription phoned to [facility] ([facility] pt)
== END 2020-11-15 19:26 | disposition home or self-care (01) ==
LOC: ER 14:06 → ER IP 23:20 → CSU 11-15 06:35
PROVIDERS: Internal Medicine Cardiovascular Disease; Physician Assistant; Admitting Provider Internal Medicine; Emergency Provider Family Medicine; PCP Family Medicine; Visit Provider Internal Medicine
DX: I21.4 Non-ST elevation (NSTEMI) myocardial infarction (principal); R77.8 Other specified abnormalities of plasma proteins; I25.110 Atherosclerotic heart disease of native coronary artery with unstable angina pectoris; E11.42 Type 2 diabetes mellitus with diabetic polyneuropathy; R74.8 Abnormal levels of other serum enzymes; E11.22 Type 2 diabetes mellitus with diabetic chronic kidney disease; I12.0 Hypertensive chronic kidney disease with stage 5 chronic kidney disease or end stage renal disease; N18.6 End stage renal disease; E78.5 Hyperlipidemia, unspecified; Z99.2 Dependence on renal dialysis; G47.33 Obstructive sleep apnea (adult) (pediatric); E03.9 Hypothyroidism, unspecified; I25.2 Old myocardial infarction; Z86.16 Personal history of COVID-19
CPT/HCPCS: 36415; 36416; 71045; 80048; 80053; 81003; 82962; 83880; 84484; 85025; 85730; 87426; 93005; 96372; G0378; J1644; J1815

== ENCOUNTER → 2020-12-09 12:31 | Outpatient (BNVA) | payer MEDICARE, SELFPAY | PROVIDERS: PCP Family Medicine; Visit Provider Surgery Vascular Surgery | DX: Z01.818 Encounter for other preprocedural examination (principal); Z20.822 Contact with and (suspected) exposure to COVID-19 | CPT/HCPCS: 87635 ==

== ENCOUNTER → 2020-12-15 09:01 | Outpatient (BNVA) | payer MEDICARE, SELFPAY | PROVIDERS: PCP Family Medicine; Visit Provider Family Medicine | DX: E13.9 Other specified diabetes mellitus without complications (principal); E78.5 Hyperlipidemia, unspecified; E03.9 Hypothyroidism, unspecified | CPT/HCPCS: 80053; 83036 ==

== ENCOUNTER → 2021-03-27 11:40 | Outpatient (BNVA) | payer MEDICARE, SELFPAY | PROVIDERS: PCP Family Medicine; Visit Provider Family Medicine | DX: E13.9 Other specified diabetes mellitus without complications (principal); E78.5 Hyperlipidemia, unspecified; I10 Essential (primary) hypertension; Z68.33 Body mass index [BMI] 33.0-33.9, adult | CPT/HCPCS: 80048; 80061; 83036 ==

== ENCOUNTER → 2021-06-26 15:46 | Outpatient (BNVA) | payer MEDICARE, SELFPAY | PROVIDERS: PCP Family Medicine; Visit Provider Family Medicine | DX: E13.9 Other specified diabetes mellitus without complications (principal) | CPT/HCPCS: 83036 ==

== ENCOUNTER → 2021-06-28 16:28 | Outpatient (BNVA) | payer MEDICARE, SELFPAY | PROVIDERS: PCP Family Medicine; Visit Provider Surgery | DX: Z20.822 Contact with and (suspected) exposure to COVID-19 (principal) | CPT/HCPCS: 87635 ==

== ENCOUNTER 2021-07-03 05:22 | Day surgery (SDC) | payer MEDICARE, SELFPAY ==
[2021-07-02 14:48] VITALS: BMI 34.7
[2021-07-03 05:54] VITALS: BP 175/92; PULSE 61; RESP 18; TEMP 36.9; O2SAT 95
--- NOTE | 2021-07-03 06:00 | W.PM.OPSUD ---
Surgery/Procedure H&P Update DATE OF PROCEDURE: July 03, 2021 DATE H&P PERFORMED: 06/20/21 CHANGES TO PREVIOUS DOCUMENTATION: Patient is concerned about the left forearm stitch that was placed at the time of balloon angioplasty of the distal left forearm AV fistula and he needed to come out. Risks benefits alternatives indications discussed with the patient with that regard and he is interested to have it removed at the same time removal of the right upper chest tunneled hemodialysis catheter. It was added to the informed consent. PREOP DIAGNOSIS: Hemodialysis catheter in place PRIMARY INDICATION FOR PROCEDURE: The same PLANNED PROCEDURE: Operation Date: 07/03/21 07:00 Proposed Procedures p Dialysis Catheter Removal 88597/z99.2(Not Applicable) - Mathieu Kolb MD
[2021-07-03] MEDS: sodium chloride 0.9% 1,000 ML 30 ML IV (06:29)
[2021-07-03 06:30] LABS: Glucose Point of Care 205 mg/dL (70-110)
--- NOTE | 2021-07-03 06:53 | P.ANESASSM_ITS ---
Pre-Anesthetic Assessment Height/Weight: Height 1.73 m Weight 103.419 kg Temp Pulse Resp BP Pulse Ox 98.4 F 61 18 175/92 95 07/03/21 05:54 07/03/21 05:54 07/03/21 05:54 07/03/21 05:54 07/03/21 05:54 Preop Diagnosis: Hemodialysis catheter in place Operation Date: 07/03/21 07:00 Proposed Procedures p Dialysis Catheter Removal 64281/z99.2(Not Applicable) - Mathieu Kolb MD Familial anesthetic complications: None Was Beta Norma taken within 24 hours: Yes Was Clonidine taken within 24 hours: N/A Last intake: Intake Last Liquid Date 07/02/21 Last Liquid Time 19:00 Last Solid Date 07/02/21 Last Solid Time 19:00 Social No alcohol and No tobacco Exam alert, oriented x 3, clear to auscultation bilaterally and regular rate & rhythm Airway Submandibular: within normal limits Cervical ROM: within normal limits Mallampati: Class I Dentition: false Pulmonary Sleep Apnea CV/HEM Coronary Artery Disease (Hx of CA stents ), Hypertension, Myocardial Infarction (Hx of NSTEMI) and Peripheral Vascular Disease 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 1. There is severe? coronary artery disease with two vessel disease. (Distal edge dissection from prior stenting, treated with placement of drug eluting stent. ? 2. Distal Left Anterior Descending to Distal Left Anterior Descending was treated with a Drug Eluting Stent. ? 3. Proximal Right Coronary Artery to Mid Right Coronary Artery was treated with a Balloon, and Drug Eluting Stent. ? 4. Mid Right Coronary Artery was treated with a Drug Eluting Stent. Chronic Renal Failure Last dialysis yesterday using left forearm fistula Metabolic Diabetes Mellitus [facility] [place] None reported Neuropsych Cerebrovascular Accident Anesthetic Plan ASA status: 4 Medications/Allergies Home Medications Medication Instructions Recorded Confirmed Last Taken Type acetaminophen 500 mg tablet 1,000 mg PO PRN 05/05/19 07/03/21 07/02/21 History (Tylenol Extra Strength) nitroglycerin 0.4 mg sublingual 0.4 mg SUBLINGUAL Q5M PRN 05/05/19 07/03/21 11/14/20 History tablet (Nitrostat) pantoprazole 40 mg tablet,delayed 40 mg PO DAILY@0500 05/05/19 07/03/21 07/02/21 History release terazosin 10 mg capsule 10 mg PO BID@05,18 cap 05/05/19 07/03/21 07/02/21 History allopurinol 300 mg tablet 300 mg PO DAILY@1800 tab 05/06/19 07/03/21 07/02/21 History furosemide 40 mg tablet 80 mg PO BID@0500,1800 04/24/20 07/03/21 07/02/21 History insulin aspart U-100 100 unit/mL See Rx Instructions .ROUTE 08/22/20 07/03/21 07/02/21 Rx (3 mL) subcutaneous pen (Novolog .COMPLEX #15 ml Flexpen U-100 Insulin aspart) aspirin 81 mg tablet,delayed 81 mg PO DAILY@0500 09/01/20 07/03/21 07/02/21 History release clopidogrel 75 mg tablet 75 mg PO DAILY@0500 09/01/20 07/03/21 06/25/21 History Diabetic Shoes #1 ea 09/13/20 06/26/21 Unknown Rx sevelamer carbonate 800 mg tablet 1,600 mg PO BID 10/19/20 07/03/21 07/02/21 History Diabetic Shoes #1 ea 10/25/20 06/26/21 Unknown Rx levothyroxine 25 mcg tablet 25 mcg PO DAILY@05 11/09/20 07/03/21 07/02/21 History atorvastatin 80 mg tablet 40 mg PO BEDTIME 11/11/20 07/03/21 07/02/21 History cetirizine 10 mg tablet (Zyrtec) 10 mg PO DAILY 11/14/20 07/03/21 07/02/21 History isosorbide mononitrate 60 mg 60 mg PO DAILY 11/14/20 07/03/21 07/02/21 History tablet,extended release 24 hr amlodipine 5 mg tablet 10 mg PO DAILY 30 Days #30 tab 11/15/20 07/03/21 07/02/21 Rx carvedilol 6.25 mg tablet (Coreg) 6.25 mg PO BID 30 Days #60 tab 11/15/20 07/03/21 07/02/21 Rx escitalopram oxalate 20 mg tablet 10 mg PO DAILY tab 01/09/21 07/03/21 07/02/21 History (Lexapro) hydralazine 100 mg tablet 10 mg PO DAILY tab 01/09/21 07/03/21 07/02/21 History losartan 100 mg tablet 100 mg PO DAILY #30 tab 01/26/21 07/03/21 07/02/21 Rx insulin detemir U-100 100 unit/mL 14 unit SUBCUT BID ml 03/27/21 07/03/21 07/02/21 History (3 mL) subcutaneous pen BIPAP and supplies #1 ea 04/09/21 06/26/21 Unknown Rx semaglutide (Ozempic) 0.25 mg (0.2 mL) SUBCUT .once a 06/29/21 07/03/21 07/02/21 Rx week 30 Days #1.5 ml Allergies Allergy/AdvReac Type Severity Reaction Status Date / Time chicken derived Allergy Unknown Unknown Verified 07/03/21 05:57 morphine AdvReac Mild dizzy & Verified 07/03/21 05:57 nauseous Current Medications Generic Name Dose Route Start Last Admin Trade Name Freq PRN Reason Stop Dose Admin Sodium Chloride 1,000 mls @ 30 mls/hr 07/03/21 06:00 07/03/21 06:29 Sodium Chloride 0.9% IV 07/04/21 05:59 30 mls/hr .Q24H SAYRA Administration PFSH Anesthesia Medical History Acute kidney injury superimposed on CKD Anemia CAD (coronary artery disease) Cardiac enzymes elevated Carotid stenosis, bilateral Chronic back pain Chronic kidney disease (CKD) stage G5/A1, glomerular filtration rate (GFR) less than or equal to 15 mL/min/1.73 square meter and albuminuria creatinine ratio less than 30 mg/g Congestive 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 CVA (cerebral vascular accident) Diabetes 1.5, 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 Dyslipidemia ESRD (end stage renal disease) Essential hypertension History of 2019 novel coronavirus disease (COVID-19) Hypothyroidism NSTEMI (non-ST elevated myocardial infarction) KAITLYNN (obstructive sleep apnea) Surgical History Hx of cholecystectomy Previous back surgery S/P angioplasty with stent S/P cataract extraction S/P hemodialysis catheter insertion Family History Mother CAD (coronary artery disease) Stroke Sister Hypertension Social History Smoking and tobacco status: never smoked Alcohol intake: never Household members: spouse Marital status: service: Yes branch: [employer] Current occupational status: employed Current occupation: [employer] History of recent travel: No Current gender identity: Male Data Anesthesia Cardiac Studies: Echocardiogram Ultrasound 08/08/20 Sestamibi Stress Test (Cardiology) 10/19/20
[2021-07-03] MEDS: lidocaine 2% INJ 20 mL INJECTION (07:15)
--- NOTE | 2021-07-03 07:32 | SUR.OPER ---
hemodialysis catheter removed and wasted per Dr. Kolb.
[2021-07-03] MEDS: neomycin-poly-bacitracin oint 28 gm 1 APPLIC TOPICAL (07:35)
--- NOTE | 2021-07-03 07:37 | PM.OP ---
Operative Report Date of procedure: July 03, 2021 Pre-op diagnosis: Preop Diagnosis Hemodialysis catheter in place Post-op diagnosis: The same Post-op findings: Smooth removal of right upper chest tunneled hemodialysis cath Procedure done: 1-Explantation of right upper chest tunneled hemodialysis cath 2-Exploration of left forearm wound Surgeon: Mathieu Kolb MD Booth Operator: photonic laboratory technician Ashley Circulating nurse Alecia Howard Anesthesia: MAC (excavating machine operator Sonny. MAC anesthesia was attempted but there was IV infiltration.) Estimated blood loss (mL): 5 Complications: Infiltration of right forearm by IV fluid Procedure: After identifying the patient in the holding area, informed consent per chart ,patient was then transferred to the operative suite, was placed in supine position, IV propofol was infused by the anesthesia provider and both arms were tucked, prep and drape of right upper chest region was done usual sterile technique. Apparently the right forearm IV access was found to be infiltrating so I decided to proceed with local anesthesia only.(Special attention was paid for the left forearm AV fistula) during positioning the patient. Time-out was done verifying the patient's name/date of /planned procedure and destination after the procedure, all were in agreement. I started by injection of lidocaine 2% at the site of the exit of the HD catheter, suture was removed followed by dissection and freeing the catheter from the surrounding adhesions.The HD catheter was then explanted easily, at this point the catheter was removed at the same time direct pressure was applied at the site of the right internal jugular vein stick to prevent bleeding. Thorough irrigation of the right upper chest hemodialysis cath was done followed by hemostasis, followed by [id number] 3-0 nylon then pressure dressing. Attention was deviated towards the left forearm proximal third at the site of the irritation that the patient had and asked duration of that small lesion revealed no residual sutures ,debridement of unhealthy edges and placement of a [id number] 3-0 nylon after hemostasis, followed by Triple Antibiotic ointment was applied followed by dry dressing Patient tolerated the procedure well, count of instruments, needles and sponges were completed at the end of the procedure.And then patient was transferred to the recovery area in stable condition. Through the whole entire procedure the left forearm AV fistula was secured and kept without applying pressure I was present for the whole entire procedure
[2021-07-03 07:45] VITALS: BP 171/85; PULSE 72; RESP 18; TEMP 36.9; O2SAT 94
[2021-07-03 07:50] VITALS: BP 165/86; PULSE 74; RESP 18; O2SAT 93
[2021-07-03 07:55] VITALS: BP 157/76; PULSE 73; RESP 18; O2SAT 92
--- NOTE | 2021-07-03 07:55 | PC.NURSE ---
per Dr. Kolb IV infiltrated in OR. Dr. Carey consulted, mild swelling above site (upper right forearm) and recommends warm compress. Warm compress applied in PACU. Patient denies pain at this time.
[2021-07-03 08:00] VITALS: BP 155/76; PULSE 70; RESP 18; TEMP 37.2; O2SAT 92
[2021-07-03 08:06] VITALS: BP 175/92; PULSE 61; RESP 18; TEMP 37.3; O2SAT 95
--- NOTE | 2021-07-03 13:23 | ANE.PACU2 ---
Inpatient post-anesthesia follow up: Airway intact: Yes Vital signs: Temperature 99.2 F Pulse Rate 61 Respiratory Rate 18 Blood Pressure 175/92 Pulse Oximetry 95 Oxygen Delivery Me thod Room Air Oxygen Flow Rate Fraction of Inspir ed Oxygen Hydration adequate: Yes Nausea and vomiting: No Pain level: 1 Mental status: Baseline
== END 2021-07-03 08:26 | disposition home or self-care (01) ==
PROVIDERS: PCP Family Medicine; Visit Provider Surgery
PROC: (CPT 11042; principal; 2021-07-03 07:00)
PROC: (CPT 11042; 2021-07-03 07:00)
DX: Z49.01 Encounter for fitting and adjustment of extracorporeal dialysis catheter (principal); S51.802A Unspecified open wound of left forearm, initial encounter; X58.XXXA Exposure to other specified factors, initial encounter; I25.10 Atherosclerotic heart disease of native coronary artery without angina pectoris; E11.22 Type 2 diabetes mellitus with diabetic chronic kidney disease; I12.0 Hypertensive chronic kidney disease with stage 5 chronic kidney disease or end stage renal disease; N18.6 End stage renal disease; Z79.4 Long term (current) use of insulin; Z79.82 Long term (current) use of aspirin; E78.5 Hyperlipidemia, unspecified; Z86.73 Personal history of transient ischemic attack (TIA), and cerebral infarction without residual deficits; Z86.16 Personal history of COVID-19; I25.2 Old myocardial infarction; G47.33 Obstructive sleep apnea (adult) (pediatric); E11.42 Type 2 diabetes mellitus with diabetic polyneuropathy; E03.9 Hypothyroidism, unspecified
CPT/HCPCS: 11042; 36589; 36416; 82962; J0690; J2704; J3010; J7030

== ENCOUNTER 2021-09-11 11:13 | Outpatient (CLI) | payer MEDICARE, SELFPAY ==
--- NOTE | 2021-09-11 11:25 | XR_ITS ---
WS: [id number] LUMBAR SPINE: 3 VIEWS TECHNIQUE: AP, lateral and L5-S1 spot. HISTORY: acute low back pain COMPARISON: 07/27/2020 Extensive posterior lumbar fusion begins at T10-L4. Vertical rods and pedicle screws are intact. No f ractures are identified. Degenerative disc disease and facet joint arthritis. L2 20% compression frac ture. 2 mm anterolisthesis of L4. Severe disc space narrowing at L3-4. SI joints are symmetric bilaterally. No soft tissue abnormalities. Moderate atherosclerotic changes throughout the visualized aorta. Prior cholecystectomy. XR/XR lumbar spine 2-3V* [id number] IMPRESSION: 1. Posterior fusion extends from T10 to L4. No fracture or change in alignment . 2. Stable L2 compression deformity.
== END 2021-09-11 11:14 | disposition home or self-care (01) ==
LOC: RAD 11:17
PROVIDERS: PCP Family Medicine; Visit Provider Family Medicine
DX: M54.50 Low back pain, unspecified (principal); G89.29 Other chronic pain; M47.816 Spondylosis without myelopathy or radiculopathy, lumbar region
CPT/HCPCS: 72100

== ENCOUNTER → 2021-09-20 13:36 | Outpatient (BNVA) | payer MEDICARE, SELFPAY | PROVIDERS: PCP Family Medicine; Visit Provider Surgery | DX: R19.8 Other specified symptoms and signs involving the digestive system and abdomen (principal); Z12.11 Encounter for screening for malignant neoplasm of colon; E78.5 Hyperlipidemia, unspecified; I10 Essential (primary) hypertension; E13.69 Other specified diabetes mellitus with other specified complication; N18.6 End stage renal disease | CPT/HCPCS: 99203; 99213 ==

== ENCOUNTER 2021-09-29 11:26 | Observation (INO) | payer MEDICARE, SELFPAY ==
[2021-09-29] VITALS (10 sets, daily range): BP systolic 139–179; BP diastolic 72–109; PULSE 66–78; RESP 13–184; TEMP 36.6–36.7; O2SAT 91–94; BMI 32.2
--- NOTE | 2021-09-29 11:47 | ED_ITS ---
HPI - Chest Pain General: Chief Complaint: Chest Pain Stated Complaint: CP; SOB; excessive sweating Time Seen by Provider: 09/29/21 11:45 Source: patient Mode of arrival: ambulatory Limitations: no limitations History of Present Illness: This patient made his way to the emergency department because of concerns about chest pain. He states he was engaged in his normal activities of daily living this morning which at the time included sitting talking with his family when he developed chest pain that was just like the pain that he had last year prior to having stents placed. He states the pain persisted for approximately 90 minutes and eventually went away after the second sublingual nitroglycerin. He has stated he was felt hot and sweaty during this time that he had chest pain. He states he is pain-free at this time. He states that he has been faithful to all his medications and has not fay d any recent illness. He does have a history of chronic kidney disease on Friday hemodialysis. He also has a history of coronary artery disease as noted and has had a total of 5 stents placed the most recent was 1 year ago at this facility. He not had any episodes of chest pain since that time until today. He is currently taking Plavix as well as 81 mg of aspirin which he has taken today. He still makes some urine spontaneously and is otherwise not had any change in his constitutional symptoms. MD complaint: chest pain Pertinent past history: coronary artery disease Timing of current episode: now resolved Onset: during rest Pain location: substernal Severity: moderate Quality: tightness and heaviness Relieving factors: nitroglycerin Exacerbating factors: nothing Associated symptoms: Reports diaphoresis and nausea; Deny abdominal pain, dyspnea, fever(s), palpitations, syncope or vomiting Risk Factors: Coronary artery disease risk factors: diabetes and hypertension Review of Systems Const: Reports: diaphoresis; Denies: fever(s) or chills Eyes: Denies: change in vision ENMT: Denies: throat pain or odynophagia Card: Denies: palpitations, irregular heart rhythm, lightheadedness or syncope Resp: Denies: dyspnea, productive cough or non-productive cough GI: Reports: nausea; Denies: abdominal pain, vomiting, diarrhea or hematochezia : Reports: oliguria; Denies: flank pain, urinary frequency or hematuria Musc: Denies: neck pain, back pain, extremity pain or extremity swelling Skin/Breast: Denies: rash Neuro: Denies: headache(s), numbness in extremities or weakness in extremities Jermain/Lymph: Reports: easy bruising PFSH ED PFSH: Medical History Acute kidney injury superimposed on CKD Anemia CAD (coronary artery disease) Cardiac enzymes elevated Carotid stenosis, bilateral Chronic back pain Chronic kidney disease (CKD) stage G5/A1, glomerular filtration rate (GFR) less than or equal to 15 mL/min/1.73 square meter and albuminuria creatinine ratio less than 30 mg/g Congestive 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 CVA (cerebral vascular accident) Diabetes 1.5, 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 Dyslipidemia ESRD (end stage renal disease) Essential hypertension History of 2019 novel coronavirus disease (COVID-19) Hypothyroidism NSTEMI (non-ST elevated myocardial infarction) KAITLYNN (obstructive sleep apnea) Surgical History Hx of cholecystectomy Previous back surgery S/P angioplasty with stent S/P cataract extraction S/P hemodialysis catheter insertion Family History Mother CAD (coronary artery disease) Stroke Sister Hypertension Social History Smoking and tobacco status: never smoked Alcohol intake: never Household members: spouse Marital status: service: Yes branch: [employer] Current occupational status: employed Current occupation: [employer] History of recent travel: No Current gender identity: Male Physical Exam Narrative: EXAM NARRATIVE: Patient is alert appears to be calm. Answers questions readily and in a goal- directed fashion. Const: COMMON NORMALS: no acute distress, patient oriented x3 and healthy appearing HENMT: COMMON NORMALS: normocephalic, Normal nasal mucous membranes and turbinates present, moist oral mucous membranes and oropharynx normal HEAD & SCALP: normocephalic NOSE: Normal nasal mucous membranes and turbinates present Eye: COMMON NORMALS: Equal, round and reactive pupils present, EOMs intact bilaterally and conjunctivae normal CONJUNCTIVA: Yes conjunctivae normal PUPIL: Yes Equal, round and reactive pupils present Neck/C-Spine: COMMON NORMALS: full ROM, no JVD and No carotid bruits Chest: COMMONS NORMALS: normal inspection of the chest and normal palpation of entire chest wall Resp: COMMON NORMALS: normal respiratory effort, No use of accessory muscles and clear to auscultation bilaterally EFFORT & INSPECTION: Yes able to speak in complete sentences AUSCULTATION: clear to auscultation bilaterally Cardio: COMMON NORMALS: no JVD, regular rate, regular rhythm, No murmurs present (Cardio) and Peripheral pulses 2+ throughout RATE: regular rate RHYTHM: regular rhythm PERIPHERAL PULSES: Peripheral pulses 2+ throughout GI: COMMON NORMALS: Soft to palpation, non-tender, no masses and no bruits PALPATION: Yes Soft to palpation Back/Pelvis: COMMON NORMALS: thoracic and lumbar spine normal to inspection, no thoracic nor lumbar tenderness and thoraco-lumbar ROM normal Extremity: COMMON NORMALS: normal to inspection, full ROM, no calf tenderness and no pedal edema NARRATIVE EXTREMITY EXAM: A?V fistula left forearm. Neuro: COMMON NORMALS: patient oriented x3, moves all extremities, no focal motor deficits and no sensory deficits noted Psych: COMMON NORMALS: mental status grossly normal and cooperative ATTITUDE: Yes calm Skin: COMMON NORMALS: no rashes or lesions noted and turgor normal GENERAL SKIN EXAM: no rashes or lesions noted and turgor normal Course Reevaluation(s): Reevaluation #1: Patient remains chest pain-free at this time. Reviewed his current studies. He does have an elevation in his troponin but certainly this could be mitigated by his chronic kidney disease. However his symptoms were exactly the same as those he had with his last event that required stenting and is been chest pain-free in the interval between that event and today which lends greater credence to possible occult ACS. I discussed recommendations with the patient and he agreed to proceed. He also has an occult elevation in his transaminases without any abdominal pain or history of same. May be due to passive liver congestion but needs to be further evaluated. Time: 13:57 Consultations: Consultation #1: Discussed with hospitalist who agreed to place the patient in observation. Time: 13:59 Vital Signs: Vital signs: Vital Signs Pulse Rate 70 09/29/21 13:10 Respiratory Rate 18 09/29/21 11:44 Blood Pressure 139/72 09/29/21 13:10 Pulse Oximetry 93 09/29/21 13:10 MDM - Chest Pain Medical Decision Making Patient with chronic kidney disease and known coronary disease presents with chest pain symptoms that reproduce those which occurred with his last ID last year. He has had a pain-free interval up until today. He is now currently pain-free with a troponin elevation. I think it is reasonable that we place him in observation status to repeat serial biomarkers, EKGs as well as other diagnostic studies as indicated. Discussed with hospitalist who agrees. Medical Records I reviewed the patient's medical records. Lab Data I reviewed the patient's lab results. : 09/29/21 12:26 09/29/21 12:26 Radiology Impressions Chest X-Ray 09/29/21 11:56 IMPRESSION: Possible cardiomegaly.Heart size not optimally evaluated with a single AP view of the chest. Laboratory Results WBC 11.1 10^3/uL (4.0-10.0) H 09/29/21 12:26 RBC 4.54 10^6/uL (4.1-5.3) 09/29/21 12:26 Hgb 12.4 g/dL (11.7-16.6) 09/29/21 12:26 Hct 39.1 % (42.0-52.0) L 09/29/21 12:26 MCV 86.1 fl (80-94) 09/29/21 12:26 MCH 27.3 pg (28.0-34.0) L 09/29/21 12:26 MCHC 31.7 g/dL (30.0-36.0) 09/29/21 12:26 RDW 15.8 % (12.1-15.1) H 09/29/21 12:26 Plt Count 229 10^3/cmm (130-400) 09/29/21 12:26 MPV 9.5 fL (7.4-10.4) 09/29/21 12:26 Neut % (Auto) 76.9 % 09/29/21 12:26 Lymph % (Auto) 10.8 % 09/29/21 12:26 Harney % (Auto) 8.6 % 09/29/21 12:26 Eos % (Auto) 2.3 % 09/29/21 12:26 Baso % (Auto) 0.9 % 09/29/21 12:26 Neut # (Auto) 8.53 10^3/uL (1.8-7.7) H 09/29/21 12:26 Lymph # (Auto) 1.2 10^3/uL (0.8-4.8) 09/29/21 12:26 Harney # (Auto) 1.0 10^3/uL (0.2-0.9) H 09/29/21 12:26 Eos # (Auto) 0.3 10^3/uL (0.0-0.8) 09/29/21 12:26 Baso # (Auto) 0.1 10^3/uL (0.0-0.1) 09/29/21 12:26 Nucleated RBC % (auto) 0 % 09/29/21 12: Nucleated RBCs # 0.0 /100WBC 09/29/21 12:26 Sodium 136 mmol/L (136-145) 09/29/21 12:26 Potassium 4.6 mmol/L (3.5-5.1) 09/29/21 12:26 Chloride 95 mmol/L (98-107) L 09/29/21 12:26 Carbon Dioxide 27 mmol/L (22-29) 09/29/21 12:26 Anion Gap 18.6 (5-19) 09/29/21 12:26 BUN 28 mg/dL (8-23) H 09/29/21 12:26 Creatinine 3.1 mg/dL (0.7-1.2) H 09/29/21 12:26 GFR Calculation Not Reportable 09/29/21 12:26 Glucose 206 mg/dL (65-115) H 09/29/21 12:26 Calculated Osmolality 293 mOsm/kg (285-295) 09/29/21 12:26 Calcium 9.3 mg/dL (8.5-10.5) 09/29/21 12:26 Total Bilirubin 0.8 mg/dL (0.15-1.2) 09/29/21 12:26 AST 106 U/L (0-40) H 09/29/21 12:26 ALT 52 U/L (0-41) H 09/29/21 12:26 Alkaline Phosphatase 405 IU/L (40-130) H 09/29/21 12:26 Troponin T Baseline 95 ng/L (0-15) H 09/29/21 12:26 Total Protein 7.3 g/dL (6.6-8.7) 09/29/21 12:26 Albumin 4.0 g/dL (3.5-5.2) 09/29/21 12:26 Globulin 3.3 g/dL (1.3-4.6) 09/29/21 12:26 EKG Data EKG 1: EKG interpretation time: 11:47 Interpretation: Resting EKG shows a ventricular rate of 71 bpm. Prolonged OR interval consistent with a first-degree AV block. QRS duration is normal. QTc is normal. No acute ST-T wave changes at this time. Compared with prior EKG of October 2020 essentially unchanged. Discharge Plan Discharge Patient Disposition: Placed in Observation Clinical Impression: Chest pain, Chronic kidney disease, Transaminitis Condition: Stable Prescriptions: No Action pantoprazole 40 mg tablet,delayed release (DR/EC) 40 mg PO QAM 0RF terazosin 10 mg capsule 10 mg PO BID 0RF acetaminophen [Tylenol Extra Strength] 500 mg tablet 1,000 mg PO Q6H PRN (Reason: Pain) 0RF allopurinol 300 mg tablet 300 mg PO BEDTIME 0RF Novolog Flexpen U-100 Insulin 100 unit/mL (3 mL) insulin pen See Rx Instructions .ROUTE .COMPLEX Qty: 15 0RF Rx Instructions: SLIDING SCALE Before or right after meals prn (DME) Diabetic Shoes See Rx Instructions .ROUTE .MEDSUPPLY Qty: 1 0RF Rx Instructions: As directed [employer] with 3 pairs of inserts (DME) Diabetic Shoes See Rx Instructions .ROUTE .MEDSUPPLY Qty: 1 0RF Rx Instructions: As directed By [facility] [employer] with 3 pairs of inserts magnesium oxide 400 mg magnesium capsule 400 mg PO BEDTIME 0RF rosuvastatin [Crestor] 10 mg tablet 10 mg PO BEDTIME 0RF (DME) BIPAP and supplies See Rx Instructions .Route .MEDSUPPLY Qty: 1 0RF Rx Instructions: with 2L of oxygen when in use furosemide 40 mg tablet 80 mg PO BID 0RF levothyroxine 25 mcg Tablet 25 mcg PO QAM 0RF clopidogrel 75 mg tablet 75 mg PO BEDTIME 0RF Hold Instructions: Resume on 07/10/21. aspirin 81 mg tablet,delayed release (DR/EC) 81 mg PO QAM 0RF Hold Instructions: Resume on 07/07/21. Levemir FlexTouch U-100 Insuln 100 unit/mL (3 mL) insulin pen 14 unit SUBCUT BID 0RF cetirizine [Zyrtec] 10 mg Tablet 10 mg PO DAILY 0RF isosorbide mononitrate 60 mg Tablet Extended Release 24 Hr 60 mg PO DAILY 0RF Lexapro 20 mg tablet 10 mg PO QAM 0RF hydralazine 10 mg Tablet 10 mg PO QAM 0RF carvedilol 12.5 mg Tablet 12.5 mg PO QAM 0RF amlodipine 10 mg Tablet 10 mg PO BEDTIME 0RF Nitrostat 0.4 mg Tablet, Sublingual 0.4 mg SUBLINGUAL Q5M PRN (Reason: Chest Pain) 0RF Rx Instructions: do not exceed 3 doses per episode losartan 100 mg tablet 100 mg PO BEDTIME 0RF Ozempic 0.25 mg or 0.5 mg(2 mg/1.5 mL) pen injector 0.5 mg SUBCUT Q7D 0RF Rx Instructions: on friday Referrals: Carlee Carreon DO [Primary Care Provider] - Coding Level of Care Code ED 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
--- NOTE | 2021-09-29 11:56 | XRR_ITS ---
PROCEDURE INFORMATION: Exam: XR Chest Exam date and time: 09/29/2021 12:06 PM Age: 71 years old Clinical indication: Chest wall pain; Additional info: Chest pain TECHNIQUE: Imaging protocol: XR of the chest. Views: 1 view. COMPARISON: CR XR chest 1V portable [id number] 11/14/2020 10:58 AM FINDINGS: Lungs: Unremarkable. No consolidation. Pleural spaces: Left costophrenic angle is obscured and a small pleural effusion cannot be excluded. Heart/Mediastinum: Possible cardiomegaly. Bones/joints: Chronic right rib fracture sites are similar to the prior study. There are posterior stabilization bars partially visualized in the lower thoracic spine. XR/XR chest 1V portable [id number] IMPRESSION: Possible cardiomegaly.Heart size not optimally evaluated with a single AP view of the chest.
--- NOTE | 2021-09-29 11:56 | ECG_ITS ---
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 Measurements Intervals [place] Rate: 71 P: 40 CO: 257 QRS: -1 QRSD: 106 T: 38 QT: 382 QTc: 416 Interpretive Statements SINUS RHYTHM WITH FIRST DEGREE AV BLOCK WITH OCCASIONAL SUPRAVENTRICULAR PREMATURE COMPLEXES POSSIBLE ANTERIOR MYOCARDIAL INFARCTION , OF INDETERMINATE AGE [30 ms Q WAVE IN V3/V4, OR R < 0.2 mV IN V4] Compared to ECG 11/14/2020 16:38:14 Myocardial infarct finding now present Electronically Signed On 09-29-2021 19:02:59 CDT by Mohit Albarado M.D. [id number] preeti
[2021-09-29] MEDS: aspirin 81 mg Chew Tablet 162 MG PO (12:15)
[2021-09-29 12:37] LABS: Basophils # 0.1 10^3/uL (0.0-0.1); Basophils % 0.9 %; Eosinophils # 0.3 10^3/uL (0.0-0.8); Eosinophils % 2.3 %; Hematocrit 39.1 % (42.0-52.0); Hemoglobin 12.4 g/dL (11.7-16.6); Lymphocytes # 1.2 10^3/uL (0.8-4.8); Lymphocytes % 10.8 %; Mean Corpuscular HGB Conc 31.7 g/dL (30.0-36.0); Mean Corpuscular Hemoglobin 27.3 pg (28.0-34.0); Mean Corpuscular Volume 86.1 fl (80-94); Mean Platelet Volume 9.5 fL (7.4-10.4); Monocytes % 8.6 %; Neutrophils # 8.53 10^3/uL (1.8-7.7); Neutrophils % 76.9 %; Nucleated Red Blood Cells % 0 %; Platelet Count 229 10^3/cmm (130-400); Red Blood Count 4.54 10^6/uL (4.1-5.3); Red Cell Distribution Width 15.8 % (12.1-15.1); White Blood Count 11.1 10^3/uL (4.0-10.0)
[2021-09-29 12:55] LABS: Troponin(5th) Baseline 95 ng/L (0-15)
[2021-09-29 12:59] LABS: Alanine Aminotransferase 52 U/L (0-41); Alkaline Phosphatase 405 IU/L (40-130); Anion Gap 18.6 (5-19); Aspartate Amino Transferase 106 U/L (0-40); Blood Urea Nitrogen 28 mg/dL (8-23); Calcium 9.3 mg/dL (8.5-10.5); Carbon Dioxide 27 mmol/L (22-29); Chloride 95 mmol/L (98-107); Globulin 3.3 g/dL (1.3-4.6); Glucose 206 mg/dL (65-115); Osmolality Calculated 293 mOsm/kg (285-295); Potassium 4.6 mmol/L (3.5-5.1); Sodium 136 mmol/L (136-145); Total Bilirubin 0.8 mg/dL (0.15-1.2); Total Protein 7.3 g/dL (6.6-8.7)
[2021-09-29 13:21] LABS: Slide Review Slide Review Perform
--- NOTE | 2021-09-29 13:54 | PC.PHAR ---
pt states he takes care of his own medications-pt states he takes the medications entered-[facility]-waiting for [facility] to fax med list-
--- NOTE | 2021-09-29 13:56 | ECG_ITS ---
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 Measurements Intervals [place] Rate: 72 P: 25 VA: 298 QRS: 2 QRSD: 105 T: 38 QT: 408 QTc: 449 Interpretive Statements SINUS RHYTHM WITH FIRST DEGREE AV BLOCK POSSIBLE ANTERIOR MYOCARDIAL INFARCTION , PROBABLY OLD [30 ms Q WAVE IN V3/V4, OR R < 0.2 mV IN V4] Compared to ECG 09/29/2021 10:40:54 No significant changes Electronically Signed On 09-29-2021 19:07:26 CDT by Mohit Albarado M.D. [id number] f
--- NOTE | 2021-09-29 14:30 | P.HP_ITS ---
Providers/Chief Complaint Primary Care Provider: Carlee Carreon DO Chief Complaint: CP; SOB; excessive sweating History of Present Illness Pleasant 71-year-old gentleman with history of coronary disease and a number of other chronic conditions, status post stenting x3-year ago, since then was not bothered by any chest pain or discomfort, was packing some close into the back of a car and afterwards started experiencing chest pain on the lower left side of his chest which made him come home and sit down, he states between the abdo men and the chest, initially he thought it was stomach pain because of the location. Denies heartburn/indigestion. Pain eventually started radiating to his back. He took 2 nitroglycerin which did relieve the pain. He is currently free of pain or discomfort. He says has not missed any of his doses of aspirin or Plavix. He states otherwise has been in his usual state of health. Review of Systems Const: Denies: fever(s), chills, body aches or malaise Eyes: Denies: change in vision, eye discomfort or eye redness ENMT: Denies: throat pain, oral sores or ear or mastoid pain Card: Reports: chest pain, dyspnea on exertion (Chronic) and orthopnea (chronic (attributes to KAITLYNN)); Denies: edema or pre-syncope Resp: Denies: dyspnea, productive cough, change in phlegm color or hemoptysis GI: Reports: diarrhea (chronic); Denies: abdominal pain, nausea, vomiting, constipation, hematochezia or melena : Denies: flank pain, difficulty urinating, urinary frequency or hematuria Musc: Denies: back pain, joint swelling or joint redness Skin/Breast: Denies: rash or new lesions Neuro: Denies: headache(s), numbness in extremities, weakness in extremities, dizziness, confusion or seizure-like activity Endo: Denies: polyuria or polydipsia Jermain/Lymph: Denies: easy bleeding or tender lymph nodes All/Imm: Denies: urticaria or tongue swelling Medications/Allergies Home Medications Medication Instructions Recorded Confirmed Last Taken Type acetaminophen 500 mg tablet 1,000 mg PO Q6H PRN 05/05/19 09/29/21 07/02/21 History (Tylenol Extra Strength) pantoprazole 40 mg tablet,delayed 40 mg PO QAM 01/09/29/21 09/29/21 History release terazosin 10 mg capsule 10 mg PO BID cap 05/05/19 09/29/21 09/29/21 History allopurinol 300 mg tablet 300 mg PO BEDTIME tab 05/06/19 09/29/21 09/28/21 History furosemide 40 mg tablet 80 mg PO BID 04/24/20 09/29/21 09/29/21 History insulin aspart U-100 100 unit/mL See Rx Instructions .ROUTE 08/22/20 09/29/21 09/28/21 Rx (3 mL) subcutaneous pen (Novolog .COMPLEX #15 ml Flexpen U-100 Insulin aspart) aspirin 81 mg tablet,delayed 81 mg PO QAM 09/01/20 09/29/21 09/29/21 History release clopidogrel 75 mg tablet 75 mg PO BEDTIME 09/01/20 09/29/21 09/28/21 History Diabetic Shoes #1 ea 09/13/20 09/29/21 Unknown Rx Diabetic Shoes #1 ea 10/25/20 09/29/21 Unknown Rx levothyroxine 25 mcg tablet 25 mcg PO QAM 11/09/20 09/29/21 09/29/21 History cetirizine 10 mg tablet (Zyrtec) 10 mg PO DAILY 11/14/20 09/29/21 07/02/21 History isosorbide mononitrate 60 mg 60 mg PO DAILY 11/14/20 09/29/21 09/29/21 History tablet,extended release 24 hr escitalopram oxalate 20 mg tablet 10 mg PO QAM tab 01/09/21 09/29/21 09/29/21 History (Lexapro) insulin detemir U-100 100 unit/mL 14 unit SUBCUT BID ml 03/27/21 09/29/21 09/29/21 History (3 mL) subcutaneous pen (Levemir FlexTouch U-100 Insulin) BIPAP and supplies #1 ea 04/09/21 09/29/21 Unknown Rx magnesium oxide 400 mg PO BEDTIME 07/31/21 09/29/21 09/28/21 History rosuvastatin 10 mg tablet (Crestor) 10 mg PO BEDTIME 09/20/21 09/29/21 09/28/21 History amlodipine 10 mg tablet 10 mg PO BEDTIME 06/03/1209/29/21 09/28/21 History carvedilol 12.5 mg tablet 12.5 mg PO QAM 09/29/21 09/29/21 09/29/21 History hydralazine 10 mg tablet 10 mg PO QAM 09/29/21 09/29/21 09/29/21 History losartan 100 mg tablet 100 mg PO BEDTIME 09/29/21 09/29/21 09/28/21 History nitroglycerin 0.4 mg sublingual 0.4 mg SUBLINGUAL Q5M PRN 09/29/21 09/29/21 09/29/21 History tablet (Nitrostat) 2 tabs semaglutide (Ozempic) 0.5 mg SUBCUT Q7D 09/29/21 09/29/21 09/21/21 History Allergies Allergy/AdvReac Type Severity Reaction Status Date / Time chicken derived Allergy Unknown Unknown Verified 09/29/21 13:43 morphine AdvReac Mild dizzy & Verified 09/29/21 13:43 nauseous PFSH Acute PFSH: Medical History Acute kidney injury superimposed on CKD Anemia CAD (coronary artery disease) Cardiac enzymes elevated Carotid stenosis, bilateral Chronic back pain Chronic kidney disease (CKD) stage G5/A1, glomerular filtration rate (GFR) less than or equal to 15 mL/min/1.73 square meter and albuminuria creatinine ratio less than 30 mg/g Congestive 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 CVA (cerebral vascular accident) Diabetes 1.5, 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 Dyslipidemia ESRD (end stage renal disease) Essential hypertension History of 2019 novel coronavirus disease (COVID-19) Hypothyroidism NSTEMI (non-ST elevated myocardial infarction) KAITLYNN (obstructive sleep apnea) Surgical History History of esophagogastroduodenoscopy (EGD) 10 yrs ago Hx of cholecystectomy Previous back surgery S/P angioplasty with stent S/P cataract extraction S/P hemodialysis catheter insertion Family History Mother CAD (coronary artery disease) Stroke Sister Hypertension Social History Smoking and tobacco status: never smoked Alcohol intake: never Household members: spouse Marital status: service: Yes branch: [employer] Current occupational status: employed 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 [employer] History of recent travel: No Current gender identity: Male Vitals/I&O/Wt Last Vital Signs Pulse 72 09/29/21 14:06 Resp 17 09/29/21 14:06 BP 144/77 09/29/21 14:06 Pulse Ox 93 09/29/21 14:06 Weight last 48 hrs Weight 96.162 kg Physical Exam Narrative: Accompanied by and [id number] Const: COMMON NORMALS: alert GENERAL APPEARANCE: cooperative ORIENTATION/CONSCIOUSNESS: Yes awake HENMT: COMMON NORMALS: normocephalic, EAC's normal, Normal external nose present and moist oral mucous membranes HEAD & SCALP: normocephalic NOSE: Normal external nose present EXTERNAL AUDITORY CANAL: EAC's normal Neck/C-Spine: COMMON NORMALS: no meningeal signs Chest: CHEST: Yes Symmetrical chest wall rise OTHER: Some tenderness in L lower chest on palpation Resp: COMMON NORMALS: clear to auscultation bilaterally AUSCULTATION: clear to auscultation bilaterally Cardio: COMMON NORMALS: regular rate, regular rhythm and No murmurs present (Cardio) RATE: regular rate RHYTHM: regular rhythm GI: COMMON NORMALS: Normal to inspection, nondistended, normoactive bowel sounds present, Soft to palpation and non-tender PALPATION: Yes Soft to palpation Extremity: COMMON NORMALS: no pedal edema Neuro: COMMON NORMALS: moves all extremities SENSORIUM/ORIENTATION: Yes alert MENINGEAL SIGNS: Yes no meningeal signs Psych: COMMON NORMALS: mental status grossly normal Skin: COMMON NORMALS: no wounds RASHES: no rashes Data : 09/29/21 12:26 09/29/21 12:26 A&P Assessment and plan (1) Chest pain: First appointment with heart abnormality, 95, although also in having of ESRD. Complete troponin EKG series. Obtain TTE. Monitor on telemetry. Nitroglycerin as needed. Continue cardiac medications. Discussed with him increased risk, consideration of staying in the hospital until stress testing on Friday, but will revisit again tomorrow. Status: Acute (2) Transaminitis: Unclear cause of transaminitis. Does not drink alcohol. Was exerting himself somewhat. We will check CK. Assess coronavirus. Status: Acute (3) Congestive 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: Chronic diastolic CHF. Some cardiomegaly noted on chest x-ray, otherwise not presenting with symptoms of acute exacerbation of CHF, at least for now. Monitor condition. Continue Lasix. Cardiac diet. Status: Acute (4) ESRD (end stage renal disease): HD MWF Status: Acute Plan Chronically elevated alk phos KAITLYNN: CPAP Number of other chronic medical conditions noted. Attestations Medical Necessity Statement*: Place in observation for additional assessment and management of a gentleman with known coronary disease, with prior stenting, presenting due to chest pain and troponin abnormality. 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
[2021-09-29 15:11] LABS: Creatine Phosphokinase 53 U/L (39-308)
[2021-09-29 15:13] LABS: Troponin 5 2HR 88.73 ng/L (0-15)
[2021-09-29 15:21] LABS: Troponin 5 2HR Delta -6.27 ABS# (0-10)
[2021-09-29 15:54] LABS: Adenovirus Not Detected (NOT DETECT); Chlamydia Pneumoniae Not Detected (NOT DETECT); Coronavirus 229E,HKU1,NL63,OC4 Not Detected (NOT DETECT); Human Metapneumovirus Not Detected (NOT DETECT); Human Rhinovirus/Enterovirus Not Detected (NOT DETECT); Influenza A Not Detected (NOT DETECT); Influenza A H1 Not Detected (NOT DETECT); Influenza A H1-2009 Not Detected (NOT DETECT); Influenza A H3 Not Detected (NOT DETECT); Influenza B Not Detected (NOT DETECT); Mycoplasma Pneumoniae Not Detected (NOT DETECT); Parainfluenza Virus Type 1 Not Detected (NOT DETECT); Parainfluenza Virus Type 2 Not Detected (NOT DETECT); Parainfluenza Virus Type 3 Not Detected (NOT DETECT); Parainfluenza Virus Type 4 Not Detected (NOT DETECT); Respiratory Syncytial Virus A Not Detected (NOT DETECT); Respiratory Syncytial Virus B Not Detected (NOT DETECT); SARS-COV-2 Not Detected (NOT DETECT)
--- NOTE | 2021-09-29 17:42 | USCV_ITS ---
Eliazar Hogan Age: 71 Gender: M : 1950 Exam Date: 09/29/2021 19:15 Ordering Phys: Zachary Garcia MD Technologist: Lio Driscoll Exam Location: [facility] [place] Indication: chest pain, CAD BP: 179 / 109 HR: 72 Rhythm: Sinus Technical Quality: Adequate MEASUREMENTS (Male / Female) Normal Values 2D ECHO LV Diastolic Diameter PLAX 3.8 cm 4.2 - 5.9 / 3.9 - 5.3 cm LV Systolic Diameter PLAX 2.1 cm IVS Diastolic Thickness 1.8 cm 0.6 - 1.0 / 0.6 - 0.9 cm IVS Systolic Thickness 2.2 cm LVPW Diastolic Thickness 2.2 cm 0.6 - 1.0 / 0.6 - 0.9 cm LVPW Systolic Thickness 3.5 cm LVOT Diameter 1.9 cm LV Ejection Fraction 2D Teich 77.5 % LV Ejection Fraction MOD 2C 55.8 % LV Ejection Fraction 2C AL 54.3 % LA Diameter 5.3 cm LA Width 5.5 cm LA Height 6.1 cm RA Width 5.0 cm RA Height 4.5 cm Aorta at Sinotubular Diameter 1.9 cm M-MODE Aortic Annulus Diameter 3.4 cm LA Ao Ratio MM 1.7 MV E Point Septal Separation 0.5 cm DOPPLER AV Peak Velocity 131.6 cm/s LVOT Peak Velocity 68.0 cm/s AV Area Cont Eq vti 2.0 cm squared AV Area Cont Eq pk 1.5 cm squared MV Area PHT 3.3 cm squared Mitral E to A Ratio 0.7 MV E' Velocity 48.0 cm/s Mitral E to MV E' Ratio 10.1 Mitral E to LV E' Lateral Ratio 9.1 Mitral E to LV E' Septal Ratio 11.7 TR Peak Velocity 282.8 cm/s TR Peak Gradient 32.0 mmHg TR Mean Velocity 212.4 cm/s TR Mean Gradient 20.3 mmHg TR Velocity Time Integral 99.1 cm Right Atrial Pressure 3.0 mmHg Pulmonary Artery Systolic Pressu 35.0 mmHg PV Peak Velocity 140.0 cm/s FINDINGS Left Ventricle Normal left ventricular size and systolic function, EF 66 %. No regional wall motion abnormalities. Moderate left ventricular hypertrophy. Grade I/IV diastolic dysfunction (abnormal relaxation filling pattern), normal to mildly elevated filling pressures. Technically difficult study because of the poor apical windows Right Ventricle Normal right ventricular size and systolic function. Right Atrium The right atrium is normal in size. Left Atrium Mildly increased left atrial size. Mitral Valve Thickened mitral valve. Moderate mitral annular calcification. Aortic Valve Thickened aortic valve. Tricuspid Valve No gross abnormalities noted Pulmonic Valve Thickened pulmonic valve. Pericardium No pericardial effusion. Aorta Normal ascending aorta dimension. IVC Inferior vena cava not visualized. CONCLUSIONS Normal left ventricular size and systolic function, EF 66 %. No regional wall motion abnormalities. Moderate left ventricular hypertrophy. Grade I/IV diastolic dysfunction (abnormal relaxation filling pattern), normal to mildly elevated filling pressures. Mild biatrial enlargement. Thickened mitral valve. Moderate mitral annular calcification. Thickened pulmonic valve. There is no pericardial effusion. Comparison with the previous study is difficult because of the difference in the technical quality. Technically difficult study because of the poor apical windows. Dr Mohit Albarado MD [facility] (Electronically Signed) Final Date: 30 September 2021 09:17 S
--- NOTE | 2021-09-29 17:56 | ECG_ITS ---
[facility] Test Date: 2021-09-29 Pat Name: Eliazar Hogan Department: Room: 253 Gender: Male Mass Spec: : 1950 Requested By: Guicho Villalba Order Number: [id number] Ray MD: Mohit Albarado M.D. Measurements Intervals [place] Rate: 68 P: 26 MO: 276 QRS: -6 QRSD: 103 T: 21 QT: 386 QTc: 411 Interpretive Statements SINUS RHYTHM WITH FIRST DEGREE AV BLOCK POSSIBLE ANTERIOR MYOCARDIAL INFARCTION , PROBABLY OLD [30 ms Q WAVE IN V3/V4, OR R < 0.2 mV IN V4] Compared to ECG 09/29/2021 14:26:00 No significant changes Electronically Signed On 09-29-2021 19:09:51 CDT by Mohit Albarado M.D. [id number]
[2021-09-29 18:58] LABS: Troponin 5 6HR 88.82 ng/L (0-15)
[2021-09-29] MEDS: heparin 5,000 unit/mL INJ 1 mL 5000 UNIT SUBCUT (19:03)
[2021-09-29] MEDS: FUROsemide 40 mg Tablet 80 MG PO (19:03)
[2021-09-29] MEDS: terazosin 5 mg Capsule 10 MG PO (19:05)
[2021-09-29 19:06] LABS: Troponin 5 6HR Delta -6.18 ng/L (0-12)
--- NOTE | 2021-09-29 19:10 | PC.NURSE ---
Patient arrived to floor via stretcher, no c/o pain or discomfort, AAOx4, VSS with BP elevated. Cane at bedside, dentures in top and bottom. NO wound to body, LINO hose BLE, fistula present in LFA, OOBT bathroom and chair. No needs at this time. Report given at bedside to oncoming nurse. Room clean and clutter free with call light in place.
[2021-09-29] MEDS: losartan 50 mg Tablet 100 MG PO (19:57)
[2021-09-29] MEDS: atorvastatin 40 mg Tablet 10 MG PO (19:57)
[2021-09-29] MEDS: allopurinol 300 mg Tablet PO (19:58)
[2021-09-29] MEDS: magnesium oxide 400 mg tablet PO (19:58)
[2021-09-29] MEDS: clopidogrel 75 mg Tablet PO (19:58)
[2021-09-29] MEDS: amlodipine 10 mg Tablet PO (19:59)
[2021-09-29 20:56] LABS: Glucose Point of Care 201 mg/dL (70-110)
[2021-09-29] MEDS: insulin lispro 100 unit/1 mL SUBCUT (21:17)
[2021-09-30] VITALS (10 sets, daily range): BP systolic 126–155; BP diastolic 68–76; PULSE 68–75; RESP 16–17; TEMP 36.6–37.1; O2SAT 91–94
[2021-09-30 04:30] LABS: Basophils # 0.1 10^3/uL (0.0-0.1); Basophils % 1.2 %; Eosinophils # 0.4 10^3/uL (0.0-0.8); Eosinophils % 4.3 %; Hematocrit 36.3 % (42.0-52.0); Hemoglobin 11.9 g/dL (11.7-16.6); Lymphocytes # 1.5 10^3/uL (0.8-4.8); Lymphocytes % 16.4 %; Mean Corpuscular HGB Conc 32.8 g/dL (30.0-36.0); Mean Corpuscular Hemoglobin 26.9 pg (28.0-34.0); Mean Corpuscular Volume 82.1 fl (80-94); Mean Platelet Volume 9.5 fL (7.4-10.4); Monocytes # 0.9 10^3/uL (0.2-0.9); Monocytes % 9.9 %; Neutrophils # 6.08 10^3/uL (1.8-7.7); Neutrophils % 67.8 %; Nucleated Red Blood Cells % 0 %; Platelet Count 203 10^3/cmm (130-400); Red Blood Count 4.42 10^6/uL (4.1-5.3); Red Cell Distribution Width 15.7 % (12.1-15.1)
[2021-09-30 04:49] LABS: Alanine Aminotransferase 69 U/L (0-41); Albumin Level 3.6 g/dL (3.5-5.2); Alkaline Phosphatase 396 IU/L (40-130); Anion Gap 17.1 (5-19); Aspartate Amino Transferase 65 U/L (0-40); Blood Urea Nitrogen 34 mg/dL (8-23); Calcium 8.9 mg/dL (8.5-10.5); Carbon Dioxide 27 mmol/L (22-29); Chloride 99 mmol/L (98-107); Globulin 3.2 g/dL (1.3-4.6); Glucose 109 mg/dL (65-115); Osmolality Calculated 296 mOsm/kg (285-295); Potassium 4.1 mmol/L (3.5-5.1); Sodium 139 mmol/L (136-145); Total Bilirubin 0.4 mg/dL (0.15-1.2); Total Protein 6.8 g/dL (6.6-8.7)
[2021-09-30] MEDS: carvedilol 12.5 mg Tablet PO (05:33)
[2021-09-30] MEDS: heparin 5,000 unit/mL INJ 1 mL 5000 UNIT SUBCUT ×2 (05:33→18:12)
[2021-09-30] MEDS: hyDRALAzine 10 mg Tablet PO (05:33)
[2021-09-30] MEDS: pantoprazole DR 40 mg Tablet PO (05:33)
[2021-09-30] MEDS: aspirin 81 mg EC Tablet PO (05:33)
[2021-09-30] MEDS: escitalopram 10 mg Tablet PO (05:33)
[2021-09-30] MEDS: levothyroxine 25 mcg Tablet PO (05:33)
--- NOTE | 2021-09-30 06:40 | PC.NURSE ---
SHIFT SUMMARY Has had a good night without any c/o chest pain. Wears CPAP while sleeping. O2 at 2.5l with this as per home. Urinates per urinal and says he does continue to urinate with hemodialysis. Is pleasant
[2021-09-30 06:47] LABS: Glucose Point of Care 142 mg/dL (70-110)
[2021-09-30] MEDS: terazosin 5 mg Capsule 10 MG PO ×2 (09:48→18:12)
[2021-09-30] MEDS: cetirizine 10 mg Tablet PO (09:48)
[2021-09-30] MEDS: FUROsemide 40 mg Tablet 80 MG PO ×2 (09:48→18:12)
[2021-09-30] MEDS: insulin lispro 100 unit/1 mL SUBCUT ×3 (09:48→21:24)
[2021-09-30] MEDS: isosorbide mononitrate ER 60 mg Tablet PO (09:49)
[2021-09-30 12:35] LABS: Glucose Point of Care 135 mg/dL (70-110)
--- NOTE | 2021-09-30 13:43 | P.PN_ITS ---
Subjective Subjective: He reports he is feeling well. Denies recurrence of chest pain or pressure. Vitals/I&O/Wt Last Vital Signs Temp 98.3 F 09/30/21 12:00 Pulse 69 09/30/21 12:00 Resp 17 09/30/21 12:00 BP 155/75 09/30/21 12:00 Pulse Ox 91 09/30/21 12:00 09/29/21 09/30/21 09/30/21 22:59 06:59 14:59 Intake Total 120 / 120 150 / 270 470 / 470 Output Total 600 / 600 Balance 120 / 120 -450 / -330 470 / 470 Weight last 48 hrs Weight 96.162 kg Physical Exam Narrative: Accompanied by and [id number] Const: COMMON NORMALS: alert GENERAL APPEARANCE: cooperative ORIENTATION/CONSCIOUSNESS: Yes awake HENMT: COMMON NORMALS: normocephalic, EAC's normal, Normal external nose present and moist oral mucous membranes HEAD & SCALP: normocephalic NOSE: Normal external nose present EXTERNAL AUDITORY CANAL: EAC's normal Neck/C-Spine: COMMON NORMALS: no meningeal signs Chest: CHEST: Yes Symmetrical chest wall rise OTHER: Some tenderness in L lower chest on palpation Resp: COMMON NORMALS: clear to auscultation bilaterally AUSCULTATION: clear to auscultation bilaterally Cardio: COMMON NORMALS: regular rate, regular rhythm and No murmurs present (Cardio) RATE: regular rate RHYTHM: regular rhythm GI: COMMON NORMALS: Normal to inspection, nondistended, normoactive bowel sounds present, Soft to palpation and non-tender PALPATION: Yes Soft to palpation Extremity: COMMON NORMALS: no pedal edema Neuro: COMMON NORMALS: moves all extremities SENSORIUM/ORIENTATION: Yes alert MENINGEAL SIGNS: Yes no meningeal signs Psych: COMMON NORMALS: mental status grossly normal Skin: COMMON NORMALS: no wounds RASHES: no rashes Data : 09/30/21 03:43 09/30/21 03:43 A&P Assessment and plan (1) Chest pain: Without recurrence and TTE without R WMA. Troponin series with moderate elevati on, without positive trend. Given past history of cardiac disease, mild elevation of troponin, discussed with him additional assessment with stress testing in the morning. He is agreeable. Stress test requested. Nitroglycerin as needed. Continue cardiac medications. Status: Acute (2) Transaminitis: Improving. Unclear cause of transaminitis. Does not drink alcohol. Was exerting himself somewhat. Normal CK. Neg coronavirus. Status: Acute (3) Congestive 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: Chronic diastolic CHF. Some cardiomegaly noted on chest x-ray, otherwise not presenting with symptoms of acute exacerbation of CHF, at least for now. Monitor condition. Continue Lasix. Cardiac diet. Status: Acute (4) ESRD (end stage renal disease): HD MWF Nephro consult Status: Acute Plan Chronically elevated alk phos KAITLYNN: CPAP Number of other chronic medical conditions noted. Attestations Medical Necessity Statement*: Continue observation, obtain stress test in the morning for gentleman with episode of chest pain, moderate troponin abnormality with history of CAD. 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
[2021-09-30 17:07] LABS: Glucose Point of Care 175 mg/dL (70-110)
--- NOTE | 2021-09-30 17:43 | P.CONIM_ITS ---
Providers/Reason For Consult Consulting Physician/Specialty*: Lina Bocanegra DO, telenephrology Reason for Consult*: ESRD Requesting Physician: Zachary Garcia Attending Physician: Zachary Garcia Primary Care Provider: Carlee Carreon DO History of Present Illness History of Present Illness Eliazar Hogan is a 71 year old male admitted for evaluation of chest pain. ESRD on HD x 14 months, HD MWF Currently no chest pain or dyspnea. Medications/Allergies Home Medications Medication Instructions Recorded Confirmed Last Taken Type acetaminophen 500 mg tablet 1,000 mg PO Q6H PRN 05/05/19 09/29/21 07/02/21 History (Tylenol Extra Strength) pantoprazole 40 mg tablet,delayed 40 mg PO QAM 05/05/19 09/29/21 09/29/21 History release terazosin 10 mg capsule 10 mg PO BID cap 05/05/19 09/29/21 09/29/21 History allopurinol 300 mg tablet 300 mg PO BEDTIME tab 05/06/19 09/29/21 09/28/21 History furosemide 40 mg tablet 80 mg PO BID 04/24/20 09/29/21 09/29/21 History insulin aspart U-100 100 unit/mL See Rx Instructions .ROUTE 08/22/20 09/29/21 09/28/21 Rx (3 mL) subcutaneous pen (Novolog .COMPLEX #15 ml Flexpen U-100 Insulin aspart) aspirin 81 mg tablet,delayed 81 mg PO QAM 09/01/20 09/29/21 09/29/21 History release clopidogrel 75 mg tablet 75 mg PO BEDTIME 09/01/20 09/29/21 09/28/21 History Diabetic Shoes #1 ea 09/13/20 09/29/21 Unknown Rx Diabetic Shoes #1 ea 10/25/20 09/29/21 Unknown Rx levothyroxine 25 mcg tablet 25 mcg PO QAM 11/09/20 09/29/21 09/29/21 History cetirizine 10 mg tablet (Zyrtec) 10 mg PO DAILY 11/14/20 09/29/21 07/02/21 History isosorbide mononitrate 60 mg 60 mg PO DAILY 11/14/20 09/29/21 09/29/21 History tablet,extended release 24 hr escitalopram oxalate 20 mg tablet 10 mg PO QAM tab 01/09/21 09/29/21 09/29/21 History (Lexapro) insulin detemir U-100 100 unit/mL 14 unit SUBCUT BID ml 03/27/21 09/29/21 09/29/21 History (3 mL) subcutaneous pen (Levemir FlexTouch U-100 Insulin) BIPAP and supplies #1 ea 04/09/21 09/29/21 Unknown Rx magnesium oxide 400 mg PO BEDTIME 07/31/21 09/29/21 09/28/21 History rosuvastatin 10 mg tablet (Crestor) 10 mg PO BEDTIME 09/20/21 09/29/21 09/28/21 History amlodipine 10 mg tablet 10 mg PO BEDTIME 09/29/21 09/29/21 09/28/21 History carvedilol 12.5 mg tablet 12.5 mg PO QAM 09/29/21 09/29/21 09/29/21 History hydralazine 10 mg tablet 10 mg PO QAM 09/29/21 09/29/21 09/29/21 History losartan 100 mg tablet 100 mg PO BEDTIME 09/29/21 09/29/21 09/28/21 History nitroglycerin 0.4 mg sublingual 0.4 mg SUBLINGUAL Q5M PRN 09/29/21 09/29/21 09/29/21 History tablet (Nitrostat) 2 tabs semaglutide (Ozempic) 0.5 mg SUBCUT Q7D 09/29/21 09/29/21 09/21/21 History Allergies Allergy/AdvReac Type Severity Reaction Status Date / Time chicken derived Allergy Unknown Unknown Verified 09/29/21 13:43 morphine AdvReac Mild dizzy & Verified 09/29/21 13:43 nauseous Current Medications Generic Name Dose Route Start Last Admin Trade Name Freq PRN Reason Stop Dose Admin Allopurinol 300 mg 09/29/21 21:00 09/29/21 19:58 Allopurinol 300 Mg Tablet PO 300 mg BEDTIME SAYRA Administration Amlodipine Besylate 10 mg 09/29/21 21:00 09/29/21 19:59 Amlodipine 10 Mg Tablet PO 10 mg BEDTIME SAYRA Administration Aspirin 81 mg 09/30/21 06:00 09/30/21 05:33 Aspirin 81 Mg Ec Tablet PO 81 mg QAM SAYRA Administration Atorvastatin Calcium 10 mg 09/29/21 21:00 09/29/21 19:57 Atorvastatin 40 Mg Tablet PO 10 mg BEDTIME SAYRA Administration Carvedilol 12.5 mg 09/30/21 06:00 09/30/21 05:33 Carvedilol 12.5 Mg Tablet PO 12.5 mg QAM SAYRA Administration Cetirizine HCl 10 mg 09/30/21 09:00 09/30/21 09:48 Cetirizine 10 Mg Tablet PO 10 mg DAILY SAYRA Administration Clopidogrel Bisulfate 75 mg 09/29/21 21:00 09/29/21 19:58 Clopidogrel 75 Mg Tablet PO 75 mg BEDTIME SAYRA Administration Escitalopram Oxalate 10 mg 09/30/21 06:00 09/30/21 05:33 Escitalopram 10 Mg Tablet PO 10 mg QAM SAYRA Administration Furosemide 80 mg 09/29/21 18:00 09/30/21 09:48 Furosemide 40 Mg Tablet PO 80 mg BID SAYRA Administration Heparin Sodium (Porcine) 5,000 unit 09/29/21 17:42 09/30/21 05:33 Heparin 5,000 Unit/Ml Inj 1 Ml SUBCUT 5,000 unit Q12H SAYRA Administration Hydralazine HCl 10 mg 09/30/21 06:00 09/30/21 05:33 Hydralazine 10 Mg Tablet PO 10 mg QAM SAYRA Administration Insulin Detemir 14 unit 09/29/21 18:00 09/30/21 09:49 Insulin Detemir 100 Units/1 Ml SUBCUT 14 unit BID SAYRA Administration Insulin Human Lispro 0 unit 09/29/21 18:00 09/30/21 12:51 Insulin Lispro 100 Unit/1 Ml SUBCUT Not Given [facility] Protocol Isosorbide Mononitrate 60 mg 09/30/21 09:00 09/30/21 09:49 Isosorbide Mononitrate Er 60 Mg Tablet PO 60 mg DAILY SAYRA Administration Levothyroxine Sodium 25 mcg 09/30/21 06:00 09/30/21 05:33 Levothyroxine 25 Mcg Tablet PO 25 mcg QAM SAYRA Administration Losartan Potassium 100 mg 09/29/21 21:00 09/29/21 19:57 Losartan 50 Mg Tablet PO 100 mg BEDTIME SAYRA Administration Magnesium Oxide 400 mg 09/29/21 21:00 09/29/21 19:58 Magnesium Oxide 400 Mg Tablet PO 400 mg BEDTIME SAYRA Administration Non-Formulary Medication 0.5 mg 09/29/21 17:42 09/29/21 18:38 Semaglutide [Ozempic] SUBCUT Not Given Q7D SAYRA Pantoprazole Sodium 40 mg 09/30/21 06:00 09/30/21 05:[address] 40 Mg Tablet PO 40 mg QAM SAYRA Administration Terazosin HCl 10 mg 09/29/21 18:00 09/30/21 09:48 Terazosin 5 Mg Capsule PO 10 mg BID SAYRA Administration PFSH Acute PFSH: Medical History Acute kidney injury superimposed on CKD Anemia CAD (coronary artery disease) Cardiac enzymes elevated Carotid stenosis, bilateral Chronic back pain Chronic kidney disease (CKD) stage G5/A1, glomerular filtration rate (GFR) less than or equal to 15 mL/min/1.73 square meter and albuminuria creatinine ratio less than 30 mg/g Congestive 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 CVA (cerebral vascular accident) Diabetes 1.5, 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 Dyslipidemia ESRD (end stage renal disease) Essential hypertension History of 2019 novel coronavirus disease (COVID-19) Hypothyroidism NSTEMI (non-ST elevated myocardial infarction) KAITLYNN (obstructive sleep apnea) Surgical History History of esophagogastroduodenoscopy (EGD) 10 yrs ago Hx of cholecystectomy Previous back surgery S/P angioplasty with stent S/P cataract extraction S/P hemodialysis catheter insertion Family History Mother CAD (coronary artery disease) Stroke Sister Hypertension Social History Smoking and tobacco status: never smoked Alcohol intake: never Household members: spouse Marital status: service: Yes branch: [employer] Current occupational status: employed Current occupation: [employer] History of recent travel: No Current gender identity: Male Vitals/I&O/Wt Last Vital Signs Temp 97.9 F 09/30/21 16:00 Pulse 70 09/30/21 16:00 Resp 17 09/30/21 16:00 BP 138/68 09/30/21 16:00 Pulse Ox 92 09/30/21 16:00 09/30/21 09/30/21 09/30/21 06:59 14:59 22:59 Intake Total 150 / 270 700 / 700 Output Total 600 / 600 Balance -450 / -330 700 / 700 Weight last 48 hrs Weight 96.162 kg Physical Exam Extremity: OTHER: LUE dialysis access Data : 09/30/21 03:43 09/30/21 03:43 A&P Assessment and plan (1) ESRD (end stage renal disease): Status: Acute Plan seen via telemedicine with assistance of RN at bedside 1. ESRD, HD MWF 2. Angina, history of CAD, CHF - plan for stress test tomorrow 3. Hypertension 4. DM Plan: HD after stress test Friday. No IVs, BPs, blood draws left arm. 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
[2021-09-30] MEDS: amlodipine 10 mg Tablet PO (20:27)
[2021-09-30] MEDS: allopurinol 300 mg Tablet PO (20:27)
[2021-09-30] MEDS: magnesium oxide 400 mg tablet PO (20:27)
[2021-09-30] MEDS: losartan 50 mg Tablet 100 MG PO (20:27)
[2021-09-30] MEDS: clopidogrel 75 mg Tablet PO (20:27)
[2021-09-30 21:14] LABS: Glucose Point of Care 192 mg/dL (70-110)
[2021-09-30] MEDS: atorvastatin 40 mg Tablet 10 MG PO (21:23)
[2021-10-01] VITALS (10 sets, daily range): BP systolic 94–161; BP diastolic 52–83; PULSE 65–75; RESP 16–18; TEMP 36.6–36.8; O2SAT 90–94
[2021-10-01 04:59] LABS: Basophils # 0.1 10^3/uL (0.0-0.1); Eosinophils # 0.4 10^3/uL (0.0-0.8); Eosinophils % 3.9 %; Hematocrit 35.9 % (42.0-52.0); Hemoglobin 12.2 g/dL (11.7-16.6); Lymphocytes # 1.6 10^3/uL (0.8-4.8); Lymphocytes % 17.8 %; Mean Corpuscular Hemoglobin 27.7 pg (28.0-34.0); Mean Corpuscular Volume 81.4 fl (80-94); Mean Platelet Volume 9.6 fL (7.4-10.4); Monocytes # 0.8 10^3/uL (0.2-0.9); Monocytes % 9.2 %; Neutrophils # 6.23 10^3/uL (1.8-7.7); Neutrophils % 67.8 %; Nucleated Red Blood Cells % 0 %; Platelet Count 213 10^3/cmm (130-400); Red Blood Count 4.41 10^6/uL (4.1-5.3); Red Cell Distribution Width 15.9 % (12.1-15.1); White Blood Count 9.2 10^3/uL (4.0-10.0)
[2021-10-01 05:18] LABS: Alanine Aminotransferase 48 U/L (0-41); Albumin Level 3.7 g/dL (3.5-5.2); Alkaline Phosphatase 385 IU/L (40-130); Aspartate Amino Transferase 32 U/L (0-40); Blood Urea Nitrogen 41 mg/dL (8-23); Calcium 8.8 mg/dL (8.5-10.5); Carbon Dioxide 26 mmol/L (22-29); Chloride 99 mmol/L (98-107); Globulin 2.9 g/dL (1.3-4.6); Glucose 117 mg/dL (65-115); Osmolality Calculated 299 mOsm/kg (285-295); Sodium 139 mmol/L (136-145); Total Bilirubin 0.4 mg/dL (0.15-1.2); Total Protein 6.6 g/dL (6.6-8.7)
[2021-10-01 05:23] LABS: Anion Gap 18.1 (5-19); Potassium 4.1 mmol/L (3.5-5.1)
[2021-10-01 05:33] LABS: Hepatitis B Surface AB 6.3 (11.5-1000); Hepatitis B Surface Antigen Non-Reactive (Nonreactive); Hepatitis C Virus Antibody Non-Reactive (Nonreactive)
[2021-10-01] MEDS: heparin 5,000 unit/mL INJ 1 mL 5000 UNIT SUBCUT (06:06)
[2021-10-01] MEDS: aspirin 81 mg EC Tablet PO (06:07)
[2021-10-01] MEDS: carvedilol 12.5 mg Tablet PO (06:07)
[2021-10-01] MEDS: escitalopram 10 mg Tablet PO (06:07)
[2021-10-01] MEDS: hyDRALAzine 10 mg Tablet PO (06:07)
[2021-10-01] MEDS: pantoprazole DR 40 mg Tablet PO (06:07)
[2021-10-01] MEDS: levothyroxine 25 mcg Tablet PO (06:07)
--- NOTE | 2021-10-01 06:34 | PC.NURSE ---
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 Has had no c/o chest pain or SOB. Had consult with telenephrology last evening. Pt has hemodialysis on Friday, Friday and Friday. NPO since midnight except ice chips, sips & meds To have stress test this am.
[2021-10-01 06:57] LABS: Glucose Point of Care 127 mg/dL (70-110)
--- NOTE | 2021-10-01 07:00 | ECG_ITS ---
[facility] Test Date: 2021-10-01 Pat Name: Eliazar Hogan Department: Room: 253 Gender: Male Milieu Manager: Nikki Gamezn : 1950 Requested By: Zachary Garcia Order Number: [id number] Flor MD: Daryl Ashraf M.D. Interpretive Statements NAME OF STUDY: LEXISCAN SESTAMIBI STRESS TEST INDICATION: [cp/cad, ] Procedure: At the baseline, the blood pressure was 115/66 mmHg with a heart rate of 68 bpm. The electrocardiogram showed normal sinus rhythm, normal axis with normal ST and T's. The Lexiscan was infused over a period of 20 seconds. A total of 0.4 mg of Lexiscan was infused. The stress phase was continued for a total of 5 minutes. Heart rate was at the end of stress phase was 62 bpm and a blood pressure of 159/87 mmHg. The EKG at the peak infusion revealed since normal sinus rhythm with no significant ST-T wave changes. Sestamibi was injected 20 seconds after the Lexiscan infusion. Blood pressure at the end of recovery phase was 94/52 mmHg with a heart rate of 67 bpm. Conclusion: 1. Normal EKG response to Lexiscan infusion 2. No Lexiscan induced chest pain or cardiac arrhythmia. 3. Normal blood pressure and heart rate response. 4. Sestamibi/sestamibi perfusion scan pending; see separate report. Electronically Signed On 10-09-2021 15:06:59 CDT by Daryl Ashraf M.D. [id number]
--- NOTE | 2021-10-01 07:35 | PM.PN ---
Subjective Subjective: feels well. no n/v/f/c/fay/d/ sob/ or edema Medications: Reviewed: Yes Medication Review Details: Current Medications Acetaminophen (Acetaminophen 500 Mg Tablet) 1,000 mg PO Q6H PRN PRN Reason: Pain Acetaminophen (Acetaminophen 325 Mg Tablet) 650 mg PO Q6H PRN PRN Reason: Mild/Mod Pain Or Temp >/= 101 Allopurinol (Allopurinol 300 Mg Tablet) 300 mg PO BEDTIME [facility] Last Admin: 09/30/21 20:27 Dose: 300 mg Documented by: Aminophylline (Aminophylline 25 Mg/Ml Sdv 10 Ml) 25 mg IVP Q2M PRN PRN Reason: see dose instructions Stop: 10/02/21 06:49 Amlodipine Besylate (Amlodipine 10 Mg Tablet) 10 mg PO BEDTIME [facility] Last Admin: 09/30/21 20:27 Dose: 10 mg Documented by: Aspirin (Aspirin 81 Mg Ec Tablet) 81 mg PO QAM [facility] Last Admin: 10/01/21 06:07 Dose: 81 mg Documented by: Atorvastatin Calcium (Atorvastatin 40 Mg Tablet) 10 mg PO BEDTIME [facility] Last Admin: 09/30/21 21:23 Dose: 10 mg Documented by: Carvedilol (Carvedilol 12.5 Mg Tablet) 12.5 mg PO QAM [facility] Last Admin: 10/01/21 06:07 Dose: 12.5 mg Documented by: Cetirizine HCl (Cetirizine 10 Mg Tablet) 10 mg PO DAILY [facility] Last Admin: 09/30/21 09:48 Dose: 10 mg Documented by: Clopidogrel Bisulfate (Clopidogrel 75 Mg Tablet) 75 mg PO BEDTIME [facility] Last Admin: 09/30/21 20:27 Dose: 75 mg Documented by: Dextrose (Dextrose 50% Syringe 50 Ml) 25 ml IVP ONCE PRN; Protocol PRN Reason: hypoglycemia protocol Dextrose (Dextrose 50% Syringe 50 Ml) 50 ml IVP PRN PRN; Protocol PRN Reason: hypoglycemia protocol Escitalopram Oxalate (Escitalopram 10 Mg Tablet) 10 mg PO QAM [facility] Last Admin: 10/01/21 06:07 Dose: 10 mg Documented by: Furosemide (Furosemide 40 Mg Tablet) 80 mg PO BID [facility] Last Admin: 09/30/21 18:12 Dose: 80 mg Documented by: Glucagon (Glucagon 1 Mg/Ml Inj 1 Ml) 1 mg IM ONCE PRN; Protocol PRN Reason: Adult Acute Hypoglycemia Prot. Heparin Sodium (Porcine) (Heparin 5,000 Unit/Ml Inj 1 Ml) 5,000 unit SUBCUT Q12H [facility] Last Admin: 10/01/21 06:06 Dose: 5,000 unit Documented by: Heparin Sodium (Porcine) (Heparin, Porcine 1,000 Unit/Ml Inj 10 Ml) 1,000 unit IV ONCE ONE Stop: 10/01/21 11:48 Hydralazine HCl (Hydralazine 10 Mg Tablet) 10 mg PO QAM [facility] Last Admin: 10/01/21 06:07 Dose: 10 mg Documented by: Dextrose (D5w) 500 mls @ 100 mls/hr IV ONCE PRN; Protocol PRN Reason: Adult Acute Hypoglycemia Prot Sodium Chloride (Sodium Chloride 0.9%) 1,000 mls @ 0 mls/hr IV .Q0M PRN PRN Reason: hypotension or symptomatic Insulin Detemir (Insulin Detemir 100 Units/1 Ml) 14 unit SUBCUT BID [facility] Last Admin: 09/30/21 18:14 Dose: 14 unit Documented by: Insulin Human Lispro (Insulin Lispro 100 Unit/1 Ml) 0 unit SUBCUT WM&BEDTIME [facility]; Protocol Last Admin: 10/01/21 07:32 Dose: Not Given Documented by: Isosorbide Mononitrate (Isosorbide Mononitrate Er 60 Mg Tablet) 60 mg PO DAILY [facility] Last Admin: 09/30/21 09:49 Dose: 60 mg Documented by: Levothyroxine Sodium (Levothyroxine 25 Mcg Tablet) 25 mcg PO QAM [facility] Last Admin: 10/01/21 06:07 Dose: 25 mcg Documented by: Losartan Potassium (Losartan 50 Mg Tablet) 100 mg PO BEDTIME [facility] Last Admin: 09/30/21 20:27 Dose: 100 mg Documented by: Magnesium Oxide (Magnesium Oxide 400 Mg Tablet) 400 mg PO BEDTIME [facility] Last Admin: 09/30/21 20:27 Dose: 400 mg Documented by: Nitroglycerin (Nitroglycerin 0.4 Mg Sublingual Tablet) 0.4 mg SUBLINGUAL Q5M PRN PRN Reason: Chest Pain Nitroglycerin (Nitroglycerin 0.4 Mg Sublingual Tablet) 0.4 mg SUBLINGUAL Q5M PRN PRN Reason: CHEST PAIN Stop: 10/02/21 06:49 Non-Formulary Medication (Insulin Aspart U-100 [Novolog Flexpen U-100 Insulin]) 0 unit SUBCUT .COMPLEX [facility] Non-Formulary Medication (Semaglutide [Ozempic]) 0.5 mg SUBCUT Q7D [facility] Last Admin: 09/29/21 18:38 Dose: Not Given Documented by: Ondansetron HCl (Ondansetron 2 Mg/Ml Sdv 2 Ml) 4 mg IVP Q8H PRN PRN Reason: vomiting, or N/V if npo Ondansetron HCl (Ondansetron 2 Mg/Ml Sdv 2 Ml) 4 mg IVP Q2M PRN PRN Reason: NAUSEA Pantoprazole Sodium (Pantoprazole Dr 40 Mg Tablet) 40 mg PO QAM [facility] Last Admin: 10/01/21 06:07 Dose: 40 mg Documented by: Regadenoson (Regadenoson 0.4 Mg/5 Ml Syringe) 0.4 mg IVP ONCE PRN PRN Reason: Lexiscan Stress Test Terazosin HCl (Terazosin 5 Mg Capsule) 10 mg PO BID [facility] Last Admin: 09/30/21 18:12 Dose: 10 mg Documented by: Vitals/I&O/Wt Last Vital Signs Temp 98.2 F 10/01/21 04:00 Pulse 75 10/01/21 05:57 Resp 17 10/01/21 04:00 BP 138/73 10/01/21 04:00 Pulse Ox 92 10/01/21 04:00 09/30/21 10/01/21 10/01/21 22:59 06:59 14:59 Intake Total 480 / 1180 200 / 1380 Output Total 300 / 300 300 / 600 Balance 180 / 880 -100 / 780 Weight last 48 hrs Weight 96.162 kg Physical Exam Const: OTHER: comfortable, NARD in bed vss heent- nc/at, eomi, anicteric neck- supple lungs clear b/l heart reg abd soft, nt, nd, + bs ext no edema LUE AVF w/ thrill and bruit neuro- a,a, o x 3 seen and examine dw/ rN- telehealth visit Data : 10/01/21 04:36 10/01/21 04:36 A&P Assessment and plan (1) ESRD (end stage renal disease): see below Status: Acute Plan 71 yr old man ESRD, CP 1. CP- for stress test today 2. ESRD - HD MWF - challenge weight removal as diastolic dysfunction 3.vss 4. hgb good for ESRD 5. DM control per medicine Attestations Medical Necessity Statement*: + trop, cp, esrd- per medicine Time Spent in Patient Care: 16 - 35 minutes (>than 50% of time spent in counselling and/or direct pt care on unit). 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
[2021-10-01] MEDS: isosorbide mononitrate ER 60 mg Tablet PO (10:00)
[2021-10-01] MEDS: FUROsemide 40 mg Tablet 80 MG PO ×2 (10:00→16:59)
[2021-10-01] MEDS: cetirizine 10 mg Tablet PO (10:00)
[2021-10-01] MEDS: terazosin 5 mg Capsule 10 MG PO (10:00)
[2021-10-01] MEDS: regadenoson 0.4 Mg/5 ml Syringe IVP (12:05)
[2021-10-01] MEDS: ondansetron 2 mg/ML SDV 2 mL 4 MG IVP (12:22)
--- NOTE | 2021-10-01 12:26 | NMCV_ITS ---
NM radha perf SPECT r/s* [id number] Eliazar Hogan Age: 71 Gender: M : 1950 Exam Date: 10/01/2021 12:26 Ordering Phys: Zachary Garcia MD Technologist: ANGIE Gonsalves Exam Location: [facility] Indications: CHEST PAIN STRESS TEST Please see separate stress test report in [facility] for full findings IMAGE PROTOCOL Rest/Stress 1 Lexiscan Day Radiopharmaceutical Dose (mCi) Administration Site Administered by Rest: Tc-99m 10.5 IV ANGIE Gonsalves Sestamibi Stress:Tc-99m 30.0 IV ANGIE Mann Sestamibi Rest: 01-Oct-2021 60 Discovery 630 Stress: 01-Oct-2021 30 Discovery 630 0.4mg Lexiscan. Supine position only as patient was unable to lay prone. SPECT RESULTS Technical Quality: Excellent Raw Data Analysis: Normal Image Corrections: No attenuation or motion correction applied Summed Stress Score: 0 Summed Rest Score: 1 Summed Difference Score: 0 PERFUSION FINDINGS SPECT images demonstrate homogeneous tracer distribution throughout the myocardium. FUNCTIONAL RESULTS (calculated via Gated SPECT) Stress Image LV EF (%): 72 Stress EDV (mL):116 TID: 0.87 Stress ESV (mL):33 FUNCTIONAL FINDINGS: There is normal left ventricular systolic function. IMPRESSIONS 1 Normal myocardial perfusion imaging with no evidence of ischemia. 2. LV systolic function is normal Daryl Ashraf MD (Electronically Signed) Final Date: 01 October 2021 16:53 S
[2021-10-01 16:58] LABS: Glucose Point of Care 137 mg/dL (70-110)
[2021-10-01] MEDS: lidocaine-prilocaine cream 5 gm 1 APPLIC TOPICAL (17:00)
[2021-10-01] MEDS: heparin 5,000 unit/mL INJ 1 mL 2000 UNIT IVP (17:00)
--- NOTE | 2021-10-01 17:05 | PM.DCS ---
Discharge Providers Date of Admission: 09/29/21 14:05 Date of Discharge: October 01, 2021 Attending Provider at Admission: Zachary Garcia Attending Provider at Discharge: Zachary Garcia Primary Care Provider: Carlee Carreon DO Diagnoses at Discharge Discharge Diagnosis (1) ESRD (end stage renal disease): Status: Acute Reason for Visit Reason for Visit: CP; SOB; excessive sweating Hospital Course Hospital Course Very pleasant 71-year-old gentleman with a number of chronic conditions including CAD, history of stenting x3 a year ago, since then was not bothered by any chest pain or discomfort, was packing some close into the back of a car and afterwards started experiencing chest pain on the lower left side of his chest which made him come home and sit down, he states between the abdomen and the chest, initially he thought it was stomach pain because of the location. Denies heartburn/indigestion. Pain eventually started radiating to his back. He took 2 nitroglycerin which did relieve the pain. He came subsequent to ER for evaluation. Chest x-ray without acute finding. There he did have some tenderness at lower left chest on presentation, which did not persist. He had no recurrence of chest pain episode. Troponin series with moderate elevation up to 88, without peak. Was assessed by TTE which did not show any RWMA, showed normal ejection fraction, grade 1 diastolic function, mild biatrial enlargement, thickened mitral valve, thickened pulmonary valve, no pericardial effusion. With moderate troponin elevation, past history, he was additionally monitored in the hospital until he could undergo stress testing this morning which did not reveal active ischemia. He had his usual dialysis as per schedule today as well. Of note he had mild elevation of transaminases, AST up to 106, ALT up to 52, alk phos chronically elevated 405. Transaminase elevation is resolving, AST normal today at 32, ALT minutely elevated at 48, alk phos 385. His abdomen remained pain-free, no tenderness on deep palpation during this hospital stay. Please follow-up for resolution of abnormal liver parameters, consider additional evaluation given persistent elevation of alkaline phosphatase with some increase. Prior HIDA scan in 2020 without evidence of acute cholecystitis or bile duct obstruction. Ultrasound showed cholelithiasis with mild gallbladder wall thickening, no pericholecystic fluid. Prominent CBD. Consider repeat. Consider bone origin as well. Physical Exam Narrative: Family accompanied him at bedside. Const: COMMON NORMALS: alert GENERAL APPEARANCE: cooperative ORIENTATION/CONSCIOUSNESS: Yes awake OTHER: Pleasant, conversant. In good spirits. Denies any recurrence of pain. Denies trouble breathing. HENMT: COMMON NORMALS: normocephalic, EAC's normal, Normal external nose present and moist oral mucous membranes HEAD & SCALP: normocephalic NOSE: Normal external nose present EXTERNAL AUDITORY CANAL: EAC's normal Neck/C-Spine: COMMON NORMALS: no meningeal signs Chest: CHEST: Yes Symmetrical chest wall rise Resp: COMMON NORMALS: clear to auscultation bilaterally AUSCULTATION: clear to auscultation bilaterally Cardio: COMMON NORMALS: regular rate, regular rhythm and No murmurs present (Cardio) RATE: regular rate RHYTHM: regular rhythm GI: COMMON NORMALS: Normal to inspection, nondistended, normoactive bowel sounds present, Soft to palpation and non-tender PALPATION: Yes Soft to palpation Extremity: COMMON NORMALS: no pedal edema Neuro: COMMON NORMALS: moves all extremities SENSORIUM/ORIENTATION: Yes alert MENINGEAL SIGNS: Yes no meningeal signs Psych: COMMON NORMALS: mental status grossly normal Skin: COMMON NORMALS: no wounds RASHES: no rashes Discharge Data Studies Completed and Pending Completed Studies During Hospitalization Category Date Time Status Sestamibi Stress Test Request Routine Exams 10/01/21 07:00 Draft XR chest 1V portable [id number] Stat Exams 09/29/21 11:56 Completed NM radha perf SPECT r/s* [id number] Routine Nuc Med 10/01/21 12:26 Completed CV. echo complete* [id number] Routine Ultrasound 09/29/21 17:42 Completed Pending at discharge Category Date Time Status Complete Blood Count w/Auto AM LABS Lab 10/02/21 04:00 Ordered Comprehensive Metabolic Panel AM LABS Lab 10/02/21 04:00 Ordered Radiology Impressions Chest X-Ray 09/29/21 11:56 IMPRESSION: Possible cardiomegaly.Heart size not optimally evaluated with a single AP view of the chest. Laboratory Results WBC 9.2 10^3/uL (4.0-10.0) 10/01/21 04:36 RBC 4.41 10^6/uL (4.1-5.3) 10/01/21 04:36 Hgb 12.2 g/dL (11.7-16.6) 10/01/21 04:36 Hct 35.9 % (42.0-52.0) L 10/01/21 04:36 MCV 81.4 fl (80-94) 10/01/21 04:36 MCH 27.7 pg (28.0-34.0) L 10/01/21 04:36 MCHC 34.0 g/dL (30.0-36.0) 10/01/21 04:36 RDW 15.9 % (12.1-15.1) H 10/01/21 04:36 Plt Count 213 10^3/cmm (130-400) 10/01/21 04:36 MPV 9.6 fL (7.4-10.4) 10/01/21 04:36 Neut % (Auto) 67.8 % 10/01/21 04:36 Lymph % (Auto) 17.8 % 10/01/21 04:36 Emmons % (Auto) 9.2 % 10/01/21 04:36 Eos % (Auto) 3.9 % 10/01/21 04:36 Baso % (Auto) 1.0 % 10/01/21 04:36 Neut # (Auto) 6.23 10^3/uL (1.8-7.7) 10/01/21 04:36 Lymph # (Auto) 1.6 10^3/uL (0.8-4.8) 10/01/21 04:36 Emmons # (Auto) 0.8 10^3/uL (0.2-0.9) 10/01/21 04:36 Eos # (Auto) 0.4 10^3/uL (0.0-0.8) 10/01/21 04:36 Baso # (Auto) 0.1 10^3/uL (0.0-0.1) 10/01/21 04:36 Nucleated RBC % (auto) 0 % 10/01/21 04:36 Nucleated RBCs # 0.0 /100WBC 10/01/21 04:36 Sodium 139 mmol/L (136-145) 10/01/21 04:36 Potassium 4.1 mmol/L (3.5-5.1) 10/01/21 04:36 Chloride 99 mmol/L (98-107) 10/01/21 04:36 Carbon Dioxide 26 mmol/L (22-29) 10/01/21 04:36 Anion Gap 18.1 (5-19) 10/01/21 04:36 BUN 41 mg/dL (8-23) H 10/01/21 04:36 Creatinine 3.8 mg/dL (0.7-1.2) H 10/01/21 04:36 GFR Calculation Not Reportable 10/01/21 04:36 Glucose 117 mg/dL (65-115) H 10/01/21 04:36 POC Glucose 137 mg/dL (70-110) H 10/01/21 16:54 Calculated Osmolality 299 mOsm/kg (285-295) H 10/01/21 04:36 Calcium 8.8 mg/dL (8.5-10.5) 10/01/21 04:36 Total Bilirubin 0.4 mg/dL (0.15-1.2) 10/01/21 04:36 AST 32 U/L (0-40) 10/01/21 04:36 ALT 48 U/L (0-41) H 10/01/21 04:36 Alkaline Phosphatase 385 IU/L (40-130) H 10/01/21 04:36 Creatine Kinase 53 U/L (39-308) 09/29/21 14:44 Troponin T Baseline 95 ng/L (0-15) H 09/29/21 12:26 Troponin T 120 Minute 88.73 ng/L (0-15) H 09/29/21 14:14 Delta Troponin T -6.27 ABS# (0-10) L 09/29/21 14:14 Troponin T Hi Sens 6Hr 88.82 ng/L (0-15) H 09/29/21 18:25 Troponin T Hi Sens 6Hr Delta -6.18 ng/L (0-12) L 09/29/21 18:25 Total Protein 6.6 g/dL (6.6-8.7) 10/01/21 04:36 Albumin 3.7 g/dL (3.5-5.2) 10/01/21 04:36 Globulin 2.9 g/dL (1.3-4.6) 10/01/21 04:36 Coronavirus 229E (PCR) Not detected (NOT DETECT) 09/29/21 14:03 Hep Bs Antigen Non-reactive (Nonreactive) 10/01/21 04:36 Hep Bs Antibody 6.3 (11.5-1000) L 10/01/21 04:36 Hepatitis C Antibody Non-reactive (Nonreactive) 10/01/21 04:36 SARS-CoV-2 (PCR) Not detected (NOT DETECT) 09/29/21 14:03 Vitals Last Vital Signs Temp 98.0 F 10/01/21 16:00 Pulse 72 10/01/21 16:00 Resp 16 10/01/21 16:00 BP 153/82 10/01/21 16:00 Pulse Ox 90 10/01/21 08:00 Discharge Plan Discharge Patient Disposition: Home Condition: Stable Prescriptions: Continued pantoprazole 40 mg tablet,delayed release (DR/EC) 40 mg PO QAM 0RF terazosin 10 mg capsule 10 mg PO BID 0RF acetaminophen [Tylenol Extra Strength] 500 mg tablet 1,000 mg PO Q6H PRN (Reason: Pain) 0RF allopurinol 300 mg tablet 300 mg PO BEDTIME 0RF Novolog Flexpen U-100 Insulin 100 unit/mL (3 mL) insulin pen See Rx Instructions .ROUTE .COMPLEX Qty: 15 0RF Rx Instructions: SLIDING SCALE Before or right after meals prn (DME) Diabetic Shoes See Rx Instructions .ROUTE .MEDSUPPLY Qty: 1 0RF Rx Instructions: As directed [employer] with 3 pairs of inserts (DME) Diabetic Shoes See Rx Instructions .ROUTE .MEDSUPPLY Qty: 1 0RF Rx Instructions: As directed By [facility] [employer] [facility] with 3 pairs of inserts magnesium oxide 400 mg magnesium capsule 400 mg PO BEDTIME 0RF rosuvastatin [Crestor] 10 mg tablet 10 mg PO BEDTIME 0RF (DME) BIPAP and supplies See Rx Instructions .Route .MEDSUPPLY Qty: 1 0RF Rx Instructions: with 2L of oxygen when in use furosemide 40 mg tablet 80 mg PO BID 0RF levothyroxine 25 mcg Tablet 25 mcg PO QAM 0RF clopidogrel 75 mg tablet 75 mg PO BEDTIME 0RF Hold Instructions: Resume on 07/10/21. aspirin 81 mg tablet,delayed release (DR/EC) 81 mg PO QAM 0RF Hold Instructions: Resume on 07/07/21. Levemir FlexTouch U-100 Insuln 100 unit/mL (3 mL) insulin pen 14 unit SUBCUT BID 0RF cetirizine [Zyrtec] 10 mg Tablet 10 mg PO DAILY 0RF isosorbide mononitrate 60 mg Tablet Extended Release 24 Hr 60 mg PO DAILY 0RF Lexapro 20 mg tablet 10 mg PO QAM 0RF hydralazine 10 mg Tablet 10 mg PO QAM 0RF carvedilol 12.5 mg Tablet 12.5 mg PO QAM 0RF amlodipine 10 mg Tablet 10 mg PO BEDTIME 0RF Nitrostat 0.4 mg Tablet, Sublingual 0.4 mg SUBLINGUAL Q5M PRN (Reason: Chest Pain) 0RF Rx Instructions: do not exceed 3 doses per episode losartan 100 mg tablet 100 mg PO BEDTIME 0RF Ozempic 0.25 mg or 0.5 mg(2 mg/1.5 mL) pen injector 0.5 mg SUBCUT Q7D 0RF Rx Instructions: on friday Discharge Orders: Discharge Order (Routine); Ordered 10/01/21 Ordered By: Zachary Garcia Referrals: Carlee Carreon DO [Primary Care Provider] - 10/05/21 10:00 am Activity Restrictions/Additional Instructions: Please follow-up with your primary doctor for reassessment. Please have them reassess your liver parameters in the setting of chronically elevated alkaline phosphatase, recently somewhat worse, but also improving AST and ALT mild elevation of which was incidentally noted during the hospitalization. Your stress test did not suggest active ischemia. 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 Still in case he experience chest pain which is severe, not going away, or any UA concerning, still do seek medical attention in ER. Discharge Attestations Time Spent in Discharge Care*: greater than 30 min Quality Metrics Clinical Quality Measures [ No reported AMI, CVA or VTE this stay] Coding Level of Care Code Acute Chg FW DC note Diagnoses ESRD (end stage renal disease) N18.6
[2021-10-01] MEDS: allopurinol 300 mg Tablet PO (20:00)
[2021-10-01] MEDS: losartan 50 mg Tablet 100 MG PO (20:00)
[2021-10-01] MEDS: atorvastatin 40 mg Tablet 10 MG PO (20:00)
[2021-10-01] MEDS: clopidogrel 75 mg Tablet PO (20:00)
[2021-10-01] MEDS: magnesium oxide 400 mg tablet PO (20:00)
[2021-10-01] MEDS: amlodipine 10 mg Tablet PO (20:01)
--- NOTE | 2021-10-02 15:59 | PC.HD ---
Pt c/o 01/28 back pain, declined requesting medication.
== END 2021-10-01 20:15 | disposition home or self-care (01) ==
LOC: ER 14:00 → MEDSURG 16:02
PROVIDERS: Internal Medicine; Admitting Provider Internal Medicine; Emergency Provider Emergency Medicine; PCP Family Medicine; Visit Provider Internal Medicine
DX: E11.22 Type 2 diabetes mellitus with diabetic chronic kidney disease (principal); N18.6 End stage renal disease; I13.2 Hypertensive heart and chronic kidney disease with heart failure and with stage 5 chronic kidney disease, or end stage renal disease; I50.9 Heart failure, unspecified; I25.10 Atherosclerotic heart disease of native coronary artery without angina pectoris; Z95.5 Presence of coronary angioplasty implant and graft; Z79.4 Long term (current) use of insulin; E03.9 Hypothyroidism, unspecified; G47.33 Obstructive sleep apnea (adult) (pediatric); I25.2 Old myocardial infarction; Z86.73 Personal history of transient ischemic attack (TIA), and cerebral infarction without residual deficits; Z79.82 Long term (current) use of aspirin
CPT/HCPCS: 36415; 36416; 71045; 78452; 80053; 82550; 82962; 84484; 85025; 86706; 86803; 87340; 87635; 93005; 93017; 93306; 94660; 96372; 96374; 96375; 99285; A9500; G0378; J1644; J1815; J2405; J2785; Q3014

== ENCOUNTER 2021-10-05 10:55 | Outpatient (CLI) | payer MEDICARE, SELFPAY ==
[2021-10-05 11:58] LABS: Alkaline Phosphatase 389 IU/L (40-130); Blood Urea Nitrogen 39 mg/dL (8-23); Calcium 8.8 mg/dL (8.5-10.5); Carbon Dioxide 28 mmol/L (22-29); Chloride 95 mmol/L (98-107); Globulin 3.2 g/dL (1.3-4.6); Glucose 385 mg/dL (65-115); Osmolality Calculated 309 mOsm/kg (285-295); Sodium 137 mmol/L (136-145); Total Bilirubin 0.4 mg/dL (0.15-1.2); Total Protein 7.2 g/dL (6.6-8.7)
[2021-10-05 12:12] LABS: Alanine Aminotransferase 21 U/L (0-41); Anion Gap 18.8 (5-19); Aspartate Amino Transferase 19 U/L (0-40); Potassium 4.8 mmol/L (3.5-5.1)
== END 2021-10-05 10:56 | disposition home or self-care (01) ==
LOC: LAB 11:01
PROVIDERS: PCP Family Medicine; Visit Provider Family Medicine
DX: R74.01 Elevation of levels of liver transaminase levels (principal)
CPT/HCPCS: 80053

== ENCOUNTER → 2021-10-09 08:04 | Outpatient (BNVA) | payer MEDICARE, SELFPAY | PROVIDERS: PCP Family Medicine; Visit Provider Podiatrist Foot & Ankle Surgery | DX: E11.9 Type 2 diabetes mellitus without complications (principal); L84 Corns and callosities; I73.9 Peripheral vascular disease, unspecified; E11.42 Type 2 diabetes mellitus with diabetic polyneuropathy; M20.41 Other hammer toe(s) (acquired), right foot; M20.42 Other hammer toe(s) (acquired), left foot; L60.3 Nail dystrophy; M21.41 Flat foot [pes planus] (acquired), right foot; M21.42 Flat foot [pes planus] (acquired), left foot | CPT/HCPCS: 11721 ==

== ENCOUNTER 2021-12-06 06:34 | Day surgery (SDC) | payer MEDICARE, SELFPAY ==
[2021-12-04 10:45] VITALS: BMI 34.3
[2021-12-06 07:03] VITALS: BP 132/80; PULSE 74; RESP 18; TEMP 36.2; O2SAT 94
[2021-12-06] MEDS: sodium chloride 0.9% 1,000 ML 30 ML IV (07:28)
--- NOTE | 2021-12-06 07:57 | P.ANESASSM_ITS ---
Pre-Anesthetic Assessment Height/Weight: Height 1.68 m Weight 96.615 kg Temp Pulse Resp BP Pulse Ox O2 Del Method 97.2 F L 74 18 132/80 94 12/06/21 07:03 12/06/21 07:03 12/06/21 07:03 12/06/21 07:03 12/06/21 07:03 12/06/21 07:03 Preop Diagnosis: Change in bowel habit Operation Date: 12/06/21 09:00 Proposed Procedures p Colonoscopy 13552,R19.8(Not Applicable) - Mathieu Kolb MD Familial anesthetic complications: None Was Beta Norma taken within 24 hours: N/A Was Clonidine taken within 24 hours: N/A Last intake: Intake Last Liquid Date 12/05/21 Last Liquid Time 22:00 Last Solid Date 12/04/21 Last Solid Time 18:30 Social No alcohol and No tobacco Exam alert, oriented x 3, clear to auscultation bilaterally and regular rate & rhythm Airway Mallampati: Class III Dentition: false Pulmonary Sleep Apnea CV/HEM Coronary Artery Disease, Hypertension and Myocardial Infarction (5 stents (> 1 year ago)) Chronic Renal Insufficiency GI Gastroesophageal Reflux Disease Metabolic Diabetes Mellitus and Thyroid Disease Anesthetic Plan ASA status: 4 Anesthesia: MAC Risk of > 500 ml blood loss (7ml/kg in children): No Medications/Allergies Home Medications Medication Instructions Recorded Confirmed Last Taken Type acetaminophen 500 mg tablet 1,000 mg PO Q6H PRN Pain 05/05/19 12/04/21 12/05/21 History (Tylenol Extra Strength) pantoprazole 40 mg tablet,delayed 40 mg PO QAM 05/05/19 12/04/21 12/05/21 History release terazosin 10 mg capsule 10 mg PO BID 05/05/19 12/04/21 12/05/21 History allopurinol 300 mg tablet 300 mg PO BEDTIME 05/06/19 12/04/21 12/05/21 History furosemide 40 mg tablet 80 mg PO BID 04/24/20 12/04/21 12/05/21 History insulin aspart U-100 100 unit/mL See Rx Instructions .Route 08/22/20 12/04/21 12/04/21 Rx (3 mL) subcutaneous pen (Novolog .COMPLEX #15 mL Flexpen U-100 Insulin aspart) aspirin 81 mg tablet,delayed 81 mg PO QAM 09/01/20 12/04/21 12/04/21 History release clopidogrel 75 mg tablet 75 mg PO BEDTIME 09/01/20 12/04/21 12/03/21 History Diabetic Shoes #1 ea 09/13/20 12/04/21 12/05/21 Rx Diabetic Shoes #1 ea 10/25/20 12/04/21 12/05/21 Rx levothyroxine 25 mcg tablet 25 mcg PO QAM 11/09/20 12/04/21 12/05/21 History cetirizine 10 mg tablet (Zyrtec) 10 mg PO DAILY 11/14/20 12/04/21 12/05/21 History isosorbide mononitrate 60 mg 60 mg PO DAILY 11/14/20 12/04/21 12/05/21 History tablet,extended release 24 hr escitalopram oxalate 20 mg tablet 10 mg PO QAM 01/09/21 12/04/21 12/05/21 History (Lexapro) insulin detemir U-100 100 unit/mL 14 unit SUBCUT BID 03/27/21 12/04/21 12/04/21 History (3 mL) subcutaneous pen (Levemir FlexTouch U-100 Insulin) BIPAP and supplies #1 ea 04/09/21 12/04/21 12/05/21 Rx magnesium oxide 400 mg PO BEDTIME 07/31/21 12/04/21 12/05/21 History rosuvastatin 10 mg tablet (Crestor) 10 mg PO BEDTIME 09/20/21 12/04/21 12/05/21 History amlodipine 10 mg tablet 10 mg PO BEDTIME 09/29/21 12/04/21 12/05/21 History carvedilol 12.5 mg tablet 12.5 mg PO QAM 09/29/21 12/04/21 12/05/21 History hydralazine 10 mg tablet 10 mg PO QAM 09/29/21 12/04/21 12/05/21 History losartan 100 mg tablet 100 mg PO BEDTIME 09/29/21 12/04/21 12/05/21 History nitroglycerin 0.4 mg sublingual 0.4 mg sublingual Q5M PRN Chest 09/29/21 12/04/21 09/29/21 History tablet (Nitrostat) Pain 2 tabs semaglutide (Ozempic) 0.5 mg SUBCUT Q7D 09/29/21 12/04/21 12/05/21 History Allergies Allergy/AdvReac Type Severity Reaction Status Date / Time chicken derived Allergy Unknown Unknown Verified 10/09/21 08:15 morphine AdvReac Mild dizzy & Verified 10/09/21 08:15 nauseous Current Medications Generic Name Dose Route Start Last Admin Trade Name Freq PRN Reason Stop Dose Admin Sodium Chloride 1,000 mls @ 30 mls/hr 12/06/21 06:45 12/06/21 07:28 Sodium Chloride 0.9% IV 30 mls/hr .Q24H SAYRA Administration PFSH Anesthesia Medical History Acute kidney injury superimposed on CKD Anemia CAD (coronary artery disease) Cardiac enzymes elevated Carotid stenosis, bilateral Chest pain Chronic back pain Chronic kidney disease Chronic kidney disease (CKD) stage G5/A1, glomerular filtration rate (GFR) less than or equal to 15 mL/min/1.73 square meter and albuminuria creatinine ratio less than 30 mg/g Congestive 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 CVA (cerebral vascular accident) Diabetes 1.5, 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 Dyslipidemia ESRD (end stage renal disease) Essential hypertension History of 2019 novel coronavirus disease (COVID-19) Hypothyroidism NSTEMI (non-ST elevated myocardial infarction) KAITLYNN (obstructive sleep apnea) Paget's disease Surgical History History of esophagogastroduodenoscopy (EGD) 10 yrs ago Hx of cholecystectomy Previous back surgery S/P angioplasty with stent S/P cataract extraction S/P hemodialysis catheter insertion Family History Mother CAD (coronary artery disease) Stroke Sister Hypertension Social History Smoking and tobacco status: never smoked Alcohol intake: never Household members: spouse Marital status: service: Yes branch: [employer] Current occupational status: employed 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
--- NOTE | 2021-12-06 08:18 | W.PM.OPSFHP ---
Same Day Surgery H&P Indication for Procedure/HPI DATE OF PROCEDURE: December 06, 2021 CHIEF COMPLAINT/INDICATIONFOR SURGICAL PROCEDURE: Change in bowel habit PREOP DIAGNOSIS: Change in bowel habit PLANNED PROCEDURE: Operation Date: 12/06/21 09:00 Proposed Procedures p Colonoscopy 62627,R19.8(Not Applicable) - Mathieu Kolb MD 09/20/2021 This is a pleasant 71 years old gentleman with history of diverticulosis and bouts of diverticulitis.? Patient had a colonoscopy about 10 years ago and reported to be normal per patient's description.? He reports that he has bouts of loose stool. Patient reports history of diarrhea, nonbloody in nature, has been going on for quite some time.? Patient denies history of recent travels, antibiotics, change in medications, questionable source of water, no history of sick contacts, no history of thyroid disorders.? Patient is referred to my practice for consideration of a repeat colonoscopy 12/06/2021 Patient comes today for diagnostic colonoscopy and stool studies ROS All systems have been reviewed negative except as for the above or per problem list. Medications/Allergies* Home Medications Medication Instructions Recorded Confirmed Type acetaminophen 500 mg tablet 1,000 mg PO Q6H PRN Pain 05/05/19 12/04/21 History (Tylenol Extra Strength) pantoprazole 40 mg tablet,delayed 40 mg PO QAM 05/05/19 12/04/21 History release terazosin 10 mg capsule 10 mg PO BID 05/05/19 12/04/21 History allopurinol 300 mg tablet 300 mg PO BEDTIME 05/06/19 12/04/21 History furosemide 40 mg tablet 80 mg PO BID 04/24/20 12/04/21 History aspirin 81 mg tablet,delayed 81 mg PO QAM 09/01/20 12/04/21 History release clopidogrel 75 mg tablet 75 mg PO BEDTIME 09/01/20 12/04/21 History levothyroxine 25 mcg tablet 25 mcg PO QAM 11/09/20 12/04/21 History cetirizine 10 mg tablet (Zyrtec) 10 mg PO DAILY 11/14/20 12/04/21 History isosorbide mononitrate 60 mg 60 mg PO DAILY 11/14/20 12/04/21 History tablet,extended release 24 hr escitalopram oxalate 20 mg tablet 10 mg PO QAM 01/09/21 12/04/21 History (Lexapro) insulin detemir U-100 100 unit/mL 14 unit SUBCUT BID 03/27/21 12/04/21 History (3 mL) subcutaneous pen (Levemir FlexTouch U-100 Insulin) magnesium oxide 400 mg PO BEDTIME 07/31/21 12/04/21 History rosuvastatin 10 mg tablet (Crestor) 10 mg PO BEDTIME 09/20/21 12/04/21 History amlodipine 10 mg tablet 10 mg PO BEDTIME 09/29/21 12/04/21 History carvedilol 12.5 mg tablet 12.5 mg PO QAM 09/29/21 12/04/21 History hydralazine 10 mg tablet 10 mg PO QAM 09/29/21 12/04/21 History losartan 100 mg tablet 100 mg PO BEDTIME 09/29/21 12/04/21 History nitroglycerin 0.4 mg sublingual 0.4 mg sublingual Q5M PRN Chest 09/29/21 12/04/21 History tablet (Nitrostat) Pain semaglutide (Ozempic) 0.5 mg SUBCUT Q7D 09/29/21 12/04/21 History Allergies/Adverse Reactions Allergy/AdvReac Type Severity Reaction Status Date / Time chicken derived Allergy Unknown Unknown Verified 12/06/21 08:19 morphine AdvReac Mild dizzy & Verified 12/06/21 08:19 nauseous Current Medications: Generic Name Dose Route Start Last Admin Trade Name Freq PRN Reason Stop Dose Admin Sodium Chloride 1,000 mls @ 30 mls/hr 12/06/21 06:45 12/06/21 07:28 Sodium Chloride 0.9% IV 30 mls/hr .Q24H SAYRA Administration Pertinent History/Comorbid Conditions* Medical History (Updated 10/08/21 @ 07:50 by Carlee Carreon DO) Acute kidney injury superimposed on CKD Anemia CAD (coronary artery disease) Cardiac enzymes elevated Carotid stenosis, bilateral Chest pain Chronic back pain Chronic kidney disease Chronic kidney disease (CKD) stage G5/A1, glomerular filtration rate (GFR) less than or equal to 15 mL/min/1.73 square meter and albuminuria creatinine ratio less than 30 mg/g Congestive 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 CVA (cerebral vascular accident) Diabetes 1.5, 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 Dyslipidemia ESRD (end stage renal disease) Essential hypertension History of 2019 novel coronavirus disease (COVID-19) Hypothyroidism NSTEMI (non-ST elevated myocardial infarction) KAITLYNN (obstructive sleep apnea) Paget's disease Surgical History (Updated 09/29/21 @ 14:38 by Zachary Garcia MD) History of esophagogastroduodenoscopy (EGD) 10 yrs ago Hx of cholecystectomy Previous back surgery S/P angioplasty with stent S/P cataract extraction S/P hemodialysis catheter insertion Family History (Updated 05/05/19 @ 09:48 by Saba Cronin RN) CAD (coronary artery disease) Mother Hypertension Sister Stroke Mother Social History Smoking and tobacco status: never smoked Alcohol intake: never Household members: spouse Marital status: service: Yes branch: [employer] Current occupational status: employed Current occupation: [employer] History of recent travel: No Current gender identity: Male Pertinent Exam Findings alert, oriented x 3, regular rate & rhythm and procedure specific exam findings (Abdominal examination nontender nondistended soft) Recommendations Surgery/Procedure today (Diagnostic colonoscopy) Coding Level of Care Code Acute Roll Former for Les Fuentes
[2021-12-06 09:07] VITALS: BP 142/63; PULSE 72; RESP 18; TEMP 36.6; O2SAT 93
[2021-12-06 09:17] VITALS: BP 135/60; PULSE 72; RESP 18; TEMP 36.6; O2SAT 91
--- NOTE | 2021-12-06 12:42 | ANE.PACU2 ---
Inpatient post-anesthesia follow up: Airway intact: Yes Vital signs: Temperature 97.8 F Pulse Rate 72 Respiratory Rate 18 Blood Pressure 135/60 Pulse Oximetry 91 Oxygen Delivery Me thod Room Air Oxygen Flow Rate Fraction of Inspir ed Oxygen Hydration adequate: Yes Nausea and vomiting: No Pain level: 1 Mental status: Baseline
== END 2021-12-06 09:32 | disposition home or self-care (01) ==
PROVIDERS: PCP Family Medicine; Visit Provider Surgery
PROC: 0DJD8ZZ Inspection of Lower Intestinal Tract, Via Natural or Artificial Opening Endoscopic (ICD-10-PCS; CPT 45378; principal; 2021-12-06 09:00)
DX: R19.8 Other specified symptoms and signs involving the digestive system and abdomen (principal); K57.30 Diverticulosis of large intestine without perforation or abscess without bleeding; K21.9 Gastro-esophageal reflux disease without esophagitis; Z79.4 Long term (current) use of insulin; I25.10 Atherosclerotic heart disease of native coronary artery without angina pectoris; Z86.73 Personal history of transient ischemic attack (TIA), and cerebral infarction without residual deficits; E13.22 Other specified diabetes mellitus with diabetic chronic kidney disease; I13.2 Hypertensive heart and chronic kidney disease with heart failure and with stage 5 chronic kidney disease, or end stage renal disease; I50.9 Heart failure, unspecified; N18.6 End stage renal disease; Z99.2 Dependence on renal dialysis; I25.2 Old myocardial infarction; G47.33 Obstructive sleep apnea (adult) (pediatric); E11.42 Type 2 diabetes mellitus with diabetic polyneuropathy; Z86.16 Personal history of COVID-19; Z82.49 Family history of ischemic heart disease and other diseases of the circulatory system; Z82.3 Family history of stroke
CPT/HCPCS: 45378; 82274; 83630; 87493; 87506; J2405; J2704; J7030

== ENCOUNTER → 2021-12-11 10:12 | Outpatient (BNVA) | payer MEDICARE, SELFPAY | PROVIDERS: PCP Family Medicine; Visit Provider Family Medicine | DX: E13.9 Other specified diabetes mellitus without complications (principal) | CPT/HCPCS: 83036 ==

== ENCOUNTER → 2021-12-19 10:02 | Outpatient (BNVA) | payer MEDICARE, SELFPAY | PROVIDERS: PCP Family Medicine; Visit Provider Surgery | DX: Z09 Encounter for follow-up examination after completed treatment for conditions other than malignant neoplasm (principal); K57.31 Diverticulosis of large intestine without perforation or abscess with bleeding; R19.8 Other specified symptoms and signs involving the digestive system and abdomen | CPT/HCPCS: 99213 ==

== ENCOUNTER → 2022-01-08 07:51 | Outpatient (BNVA) | payer MEDICARE, SELFPAY | PROVIDERS: PCP Family Medicine; Visit Provider Podiatrist Foot & Ankle Surgery | DX: E11.9 Type 2 diabetes mellitus without complications (principal); I73.9 Peripheral vascular disease, unspecified; M20.41 Other hammer toe(s) (acquired), right foot; M20.42 Other hammer toe(s) (acquired), left foot; L60.3 Nail dystrophy; M21.41 Flat foot [pes planus] (acquired), right foot; M21.42 Flat foot [pes planus] (acquired), left foot; Z79.4 Long term (current) use of insulin | CPT/HCPCS: 99213 ==

== ENCOUNTER → 2022-02-13 13:24 | Outpatient (BNVA) | payer MEDICARE, SELFPAY | PROVIDERS: PCP Family Medicine; Visit Provider Internal Medicine Cardiovascular Disease | DX: Z01.810 Encounter for preprocedural cardiovascular examination (principal); I25.10 Atherosclerotic heart disease of native coronary artery without angina pectoris; I13.2 Hypertensive heart and chronic kidney disease with heart failure and with stage 5 chronic kidney disease, or end stage renal disease; E13.22 Other specified diabetes mellitus with diabetic chronic kidney disease; N18.5 Chronic kidney disease, stage 5; I50.9 Heart failure, unspecified; Z99.2 Dependence on renal dialysis; Z79.4 Long term (current) use of insulin; I25.2 Old myocardial infarction | CPT/HCPCS: 99214 ==

== ENCOUNTER 2022-03-12 11:50 | Outpatient (CLI) | payer MEDICARE, SELFPAY | END 2022-03-12 11:51 | disposition home or self-care (01) | PROVIDERS: PCP Family Medicine; Visit Provider Family Medicine | DX: R74.8 Abnormal levels of other serum enzymes (principal); E13.9 Other specified diabetes mellitus without complications; E03.9 Hypothyroidism, unspecified | CPT/HCPCS: 80061; 83036; 84443 ==

== ENCOUNTER → 2022-04-09 07:57 | Outpatient (BNVA) | payer MEDICARE, SELFPAY | PROVIDERS: PCP Family Medicine; Visit Provider Podiatrist Foot & Ankle Surgery | DX: I73.9 Peripheral vascular disease, unspecified (principal); E11.9 Type 2 diabetes mellitus without complications; M20.41 Other hammer toe(s) (acquired), right foot; M20.42 Other hammer toe(s) (acquired), left foot; L60.3 Nail dystrophy; M21.41 Flat foot [pes planus] (acquired), right foot; M21.42 Flat foot [pes planus] (acquired), left foot; Z79.4 Long term (current) use of insulin | CPT/HCPCS: 11721 ==

== ENCOUNTER 2022-05-08 10:02 | Outpatient (RCR) | payer MEDICARE, SELFPAY | END 2022-05-21 23:59 | disposition home or self-care (01) | LOC: SPT 10:02 | PROVIDERS: Visit Provider Nurse Practitioner Family | DX: M54.16 Radiculopathy, lumbar region (principal) | CPT/HCPCS: 97161 ==

== ENCOUNTER 2022-05-22 06:00 | Outpatient (RCR) | payer MEDICARE, SELFPAY | END 2022-06-18 23:59 | disposition home or self-care (01) | LOC: SPT 06:00 | PROVIDERS: Visit Provider Nurse Practitioner Family | DX: M54.16 Radiculopathy, lumbar region (principal) | CPT/HCPCS: 97110 ==

== ENCOUNTER → 2022-07-30 07:37 | Outpatient (BNVA) | payer MEDICARE, SELFPAY | PROVIDERS: Visit Provider Podiatrist Foot & Ankle Surgery | DX: I73.9 Peripheral vascular disease, unspecified (principal); E11.69 Type 2 diabetes mellitus with other specified complication; M20.41 Other hammer toe(s) (acquired), right foot; M20.42 Other hammer toe(s) (acquired), left foot; L60.3 Nail dystrophy; M21.41 Flat foot [pes planus] (acquired), right foot; M21.42 Flat foot [pes planus] (acquired), left foot; Z79.4 Long term (current) use of insulin | CPT/HCPCS: 11721 ==

== ENCOUNTER 2022-08-10 13:05 | Emergency (ER) | payer MEDICARE, SELFPAY ==
[2022-08-10] VITALS (51 sets, daily range): BP systolic 118–170; BP diastolic 70–94; PULSE 61–70; RESP 14–31; O2SAT 62–98; BMI 33.9
--- NOTE | 2022-08-10 13:07 | XRR_ITS ---
PROCEDURE INFORMATION: Exam: XR Chest Exam date and time: 08/10/2022 1:16 PM Age: 72 years old Clinical indication: Pain; Angina pectoris; Prior surgery; Surgery type: Stents; Additional info: Chest pain TECHNIQUE: Imaging protocol: Radiologic exam of the chest. Views: 1 view. COMPARISON: CR XR chest 1V portable [id number] 09/29/2021 12:06 PM FINDINGS: Lungs: Poor inspiration. Decreased lung volumes. Right basilar atelectasis. No pulmonary vascular congestion or pulmonary edema. Pleural spaces: No pleural effusion. No pneumothorax. Heart/Mediastinum: The cardiac silhouette is enlarged. There is widening of the mediastinum, perhaps due to mediastinal lipomatosis given the patient's body habitus. Prior coronary artery stenting. Bones/joints: Partially visualized posterior kimber fusion bridging the thoracolumbar junction extending off the image. Possible Paget's disease involving the right scapula. XR/XR chest 1V portable [id number] IMPRESSION: 1. Cardiomegaly. Coronary artery disease. 2. Right basilar atelectasis.
--- NOTE | 2022-08-10 13:11 | ECG_ITS ---
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 Measurements Intervals [place] Rate: 60 P: 71 TN: 287 QRS: 21 QRSD: 105 T: 11 QT: 432 QTc: 434 Interpretive Statements SINUS RHYTHM WITH FIRST DEGREE AV BLOCK Compared to ECG 09/29/2021 18:26:25 Myocardial infarct finding no longer present Electronically Signed On 08-11-2022 9:41:14 CDT by Сергей Thapa M.D. [id number]
[2022-08-10 13:32] LABS: Basophils # 0.1 10^3/uL (0.0-0.1); Eosinophils # 0.4 10^3/uL (0.0-0.8); Hematocrit 33.1 % (42.0-52.0); Hemoglobin 10.7 g/dL (11.7-16.6); Lymphocytes # 1.9 10^3/uL (0.8-4.8); Lymphocytes % 20.1 %; Mean Corpuscular HGB Conc 32.3 g/dL (30.0-36.0); Mean Corpuscular Hemoglobin 29.2 pg (28.0-34.0); Mean Corpuscular Volume 90.2 fl (80-94); Mean Platelet Volume 9.3 fL (7.4-10.4); Monocytes # 0.9 10^3/uL (0.2-0.9); Monocytes % 9.8 %; Neutrophils # 6.07 10^3/uL (1.8-7.7); Neutrophils % 64.4 %; Nucleated Red Blood Cells % 0 %; Platelet Count 197 10^3/cmm (130-400); Red Blood Count 3.67 10^6/uL (4.1-5.3); Red Cell Distribution Width 13.7 % (12.1-15.1); White Blood Count 9.4 10^3/uL (4.0-10.0)
--- NOTE | 2022-08-10 13:37 | W.ED.CHESTPA ---
HPI - Chest Pain General: Chief Complaint: Chest Pain Stated Complaint: CHEST PAIN Time Seen by Provider: 08/10/22 13:08 History of Present Illness: Patient presents to the ER by EMS with complaints of mild chest pain with left arm numbness and tingling. Patient states this happened while he was at dialysis, and has happened before dialysis, patient took 2 nitro prior to EMS arrival. Upon EMS arrival patient was pain-free, blood glucose was 192, all symptoms have resolved, patient took 81 mg aspirin at home today. Patient does have 5 stents in his heart with the last [address] Thapa in approximately 2019. 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 Onset (ago): hour(s) (2 hours ago) Timing of current episode: constant and now resolved Prior episodes: Yes Onset: during rest Pain location: left chest Pain radiation: left arm Severity: mild Quality: tightness Relieving factors: nitroglycerin Exacerbating factors: nothing Associated symptoms: Reports no associated symptoms; Deny abdominal pain, dyspnea, fever(s), nausea, palpitations or vomiting Treatment prior to arrival: aspirin and nitroglycerin Review of Systems General: Reports: 10 or more systems reviewed and unremarkable except in HPI and below Const: Denies: fever(s) or chills Eyes: Denies: change in vision or photophobia ENMT: Denies: throat pain or odynophagia Card: Reports: chest pain; Denies: palpitations or irregular heart rhythm Resp: Denies: dyspnea, productive cough or non-productive cough GI: Denies: abdominal pain, nausea, vomiting or diarrhea : Denies: flank pain, difficulty urinating or dysuria Musc: Denies: neck pain, back pain, extremity pain or extremity swelling PFSH ED PFSH: Medical History Acute kidney injury superimposed on CKD Anemia CAD (coronary artery disease) Cardiac enzymes elevated Carotid stenosis, bilateral Chest pain Chronic back pain Chronic kidney disease Chronic kidney disease (CKD) stage G5/A1, glomerular filtration rate (GFR) less than or equal to 15 mL/min/1.73 square meter and albuminuria creatinine ratio less than 30 mg/g Congestive 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 CVA (cerebral vascular accident) Diabetes 1.5, 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 Dyslipidemia ESRD (end stage renal disease) Essential hypertension Hemodialysis access site with arteriovenous graft History of 2019 novel coronavirus disease (COVID-19) Hypothyroidism NSTEMI (non-ST elevated myocardial infarction) KAITLYNN (obstructive sleep apnea) Paget's disease Surgical History History of esophagogastroduodenoscopy (EGD) 10 yrs ago Hx of cholecystectomy Previous back surgery S/P angioplasty with stent S/P cataract extraction S/P hemodialysis catheter insertion Family History Mother CAD (coronary artery disease) Stroke Sister Hypertension Social History Smoking and tobacco status: never smoked Alcohol intake: never Substance/Drug Use: never Household members: spouse Marital status: service: Yes branch: [employer] Current occupational status: employed Current occupation: [employer] Current gender identity: Male Physical Exam Const: COMMON NORMALS: no acute distress, average body habitus, patient oriented x3, no limitations, healthy appearing, alert and well nourished HENMT: COMMON NORMALS: normocephalic, atraumatic, hearing grossly normal bilaterally, external ears normal, Normal external nose present and moist oral mucous membranes HEAD & SCALP: normocephalic and atraumatic NOSE: Normal external nose present EXTERNAL EAR: Yes external ears normal Eye: COMMON NORMALS: Equal, round and reactive pupils present, EOMs intact bilaterally, conjunctivae normal and no scleral icterus CONJUNCTIVA: Yes conjunctivae normal PUPIL: Yes Equal, round and reactive pupils present Neck/C-Spine: COMMON NORMALS: full ROM, no lymphadenopathy, no meningeal signs, no JVD and Thyroid normal THYROID: Thyroid normal Resp: COMMON NORMALS: normal respiratory effort, No retractions and No use of accessory muscles Cardio: COMMON NORMALS: no JVD, regular rate, regular rhythm, S1 normal heart sound present, S2 normal heart sound present, No gallops present (Cardio), No clicks present (Cardio), No murmurs present (Cardio) and No rub (Cardio) RATE: regular rate RHYTHM: regular rhythm HEART SOUNDS: S1 normal heart sound present and S2 normal heart sound present GI: COMMON NORMALS: Normal to inspection, nondistended, normoactive bowel sounds present, Soft to palpation, non-tender, No hepatosplenomegaly present and no masses PALPATION: Yes Soft to palpation and Yes No hepatosplenomegaly present Neuro: COMMON NORMALS: patient oriented x3 SENSORIUM/ORIENTATION: Yes alert MENINGEAL SIGNS: Yes no meningeal signs Psych: COMMON NORMALS: mental status grossly normal, Normal thought process present, cooperative, normal affect and speech normal SPEECH: Yes normal speech THOUGHT PROCESS: Normal thought process present Course Vital Signs: Vital signs: Vital Signs Pulse Rate 68 08/10/22 17:20 Respiratory Rate 24 H 08/10/22 17:20 Blood Pressure 156/78 08/10/22 17:20 Pulse Oximetry 96 08/10/22 17:20 Oxygen Delivery Me thod Room Air 08/10/22 13:19 MDM - Chest Pain Medical Decision Making Patient presents to the ER with complaints of chest pain left arm numbness and tingling. Patient took 2 nitro prior to arrival to the ED chest pain has resolved numbness and tingling is improving quickly. Patient does have a history of chronic kidney disease and is on dialysis. Lab work was obtained as well as physical exam. Lab work showed an initial troponin of 126 at 2-hour troponin of 112 with a delta of about 14. Patient is sleeping soundly during part of his hospital stay with no repeat chest pain. 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 Differential Diagnosis Unlikely acute massive pulmonary embolism or acute myocardial infarction Medical Records I reviewed the patient's medical records. Lab Data I reviewed the patient's lab results. 08/10/22 13:00 08/10/22 13:00 Radiology Impressions Chest X-Ray 08/10/22 13:07 IMPRESSION: 1. Cardiomegaly. Coronary artery disease. 2. Right basilar atelectasis. Laboratory Results WBC 9.4 10^3/uL (4.0-10.0) 08/10/22 13:00 RBC 3.67 10^6/uL (4.1-5.3) L 08/10/22 13:00 Hgb 10.7 g/dL (11.7-16.6) L 08/10/22 13:00 Hct 33.1 % (42.0-52.0) L 08/10/22 13:00 MCV 90.2 fl (80-94) 08/10/22 13:00 MCH 29.2 pg (28.0-34.0) 08/10/22 13:00 MCHC 32.3 g/dL (30.0-36.0) 08/10/22 13:00 RDW 13.7 % (12.1-15.1) 08/10/22 13:00 Plt Count 197 10^3/cmm (130-400) 08/10/22 13:00 MPV 9.3 fL (7.4-10.4) 08/10/22 13:00 Neut % (Auto) 64.4 % 08/10/22 13:00 Lymph % (Auto) 20.1 % 08/10/22 13:00 [place] % (Auto) 9.8 % 08/10/22 13:00 Eos % (Auto) 4.0 % 08/10/22 13:00 Baso % (Auto) 1.0 % 08/10/22 13:00 Neut # (Auto) 6.07 10^3/uL (1.8-7.7) 08/10/22 13:00 Lymph # (Auto) 1.9 10^3/uL (0.8-4.8) 08/10/22 13:00 [place] # (Auto) 0.9 10^3/uL (0.2-0.9) 08/10/22 13:00 Eos # (Auto) 0.4 10^3/uL (0.0-0.8) 08/10/22 13:00 Baso # (Auto) 0.1 10^3/uL (0.0-0.1) 08/10/22 13:00 Nucleated RBC % (auto) 0 % 08/10/22 13:00 Nucleated RBCs # 0.0 /100WBC 08/10/22 13:00 Sodium 136 mmol/L (136-145) 08/10/22 13:00 Potassium 4.0 mmol/L (3.5-5.1) 08/10/22 13:00 Chloride 94 mmol/L (98-107) L 08/10/22 13:00 Carbon Dioxide 31 mmol/L (22-29) H 08/10/22 13:00 Anion Gap 15.0 (5-19) 08/10/22 13:00 BUN 25 mg/dL (8-23) H 08/10/22 13:00 Creatinine 3.0 mg/dL (0.7-1.2) H 08/10/22 13:00 GFR Calculation Not Reportable 08/10/22 13:00 Glucose 137 mg/dL (65-115) H 08/10/22 13:00 Calculated Osmolality 289 mOsm/kg (285-295) 08/10/22 13:00 Calcium 9.0 mg/dL (8.5-10.5) 08/10/22 13:00 Phosphorus 2.8 mg/dL (2.5-4.5) 08/10/22 13:00 Magnesium 2.3 mg/dL (1.7-2.3) 08/10/22 13:00 Total Bilirubin 0.4 mg/dL (0.15-1.2) 08/10/22 13:00 AST 13 U/L (0-40) 08/10/22 13:00 ALT 11 U/L (0-41) 08/10/22 13:00 Alkaline Phosphatase 187 U/L (40-130) H 08/10/22 13:00 Troponin T Baseline 126 ng/L (0-15) H* 08/10/22 13:00 Troponin T 120 Minute 112.9 ng/L (0-15) H 08/10/22 15:39 Delta Troponin T -13.1 ABS# (0-10) L 08/10/22 15:39 Total Protein 6.3 g/dL (6.6-8.7) L 08/10/22 13:00 Albumin 4.1 g/dL (3.5-5.2) 08/10/22 13:00 Globulin 2.2 g/dL (1.3-4.6) 08/10/22 13:00 EKG Data EKG 1: I personally reviewed and interpreted this EKG as follows: EKG interpretation date: 08/10/22 EKG interpretation time: 13:11 Prior EKG tracings: not available for review Interpretation: EKG showed sinus rhythm with first-degree AV block, ventricular rate 60 bpm, WI interval 287, QRS duration 105, QTc of 433, no ST-T wave changes EKG 2: I personally reviewed and interpreted this EKG as follows: EKG interpretation date: 08/10/22 EKG interpretation time: 15:55 Prior EKG tracings: available for review Interpretation: EKG showed sinus rhythm with first-degree AV block, ventricular rate of 62 bpm, WI interval 309, QRS duration 106, QTc 427, no ST-T wave changes Discharge Plan Discharge Patient Disposition: Home Clinical Impression: Atypical chest pain Condition: Stable Prescriptions: No Action pantoprazole 40 mg tablet,delayed release (DR/EC) 40 mg PO QAM terazosin 10 mg capsule 10 mg PO BID acetaminophen [Tylenol Extra Strength] 500 mg tablet 1,000 mg PO Q6H PRN (Reason: Pain) allopurinol 300 mg tablet 300 mg PO BEDTIME Novolog FlexPen U-100 Insulin 100 unit/mL (3 mL) insulin pen See Rx Instructions .ROUTE .COMPLEX Qty: 15 0RF Rx Instructions: SLIDING SCALE Before or right after meals prn (DME) Diabetic Shoes See Rx Instructions .ROUTE .MEDSUPPLY Qty: 1 0RF Rx Instructions: As directed J P & O with 3 pairs of inserts (DME) Diabetic Shoes See Rx Instructions .ROUTE .MEDSUPPLY Qty: 1 0RF Rx Instructions: As directed By J P & O with 3 pairs of inserts magnesium oxide 400 mg magnesium capsule 400 mg PO BEDTIME rosuvastatin [Crestor] 10 mg tablet 10 mg PO BEDTIME sevelamer carbonate 800 mg tablet 800 mg PO TID Rx Instructions: must administer with a meal/food cholecalciferol (vitamin D3) 50 mcg (2,000 unit) capsule 50 mcg PO DAILY omega 2-miz-gxk-fish oil [Fish Oil] 1,000 mg (120 mg-180 mg) capsule 1 cap PO BID (DME) BIPAP and supplies See Rx Instructions .Route .MEDSUPPLY Qty: 1 0RF Rx Instructions: with 2L of oxygen when in use furosemide 40 mg tablet 80 mg PO BID levothyroxine 25 mcg Tablet 25 mcg PO QAM clopidogrel 75 mg tablet 75 mg PO BEDTIME Hold Instructions: Resume on 07/10/21. aspirin 81 mg tablet,delayed release (DR/EC) 81 mg PO QAM Hold Instructions: Resume on 07/07/21. Levemir FlexTouch U-100 Insuln 100 unit/mL (3 mL) insulin pen 14 unit SUBCUT BID cetirizine [Zyrtec] 10 mg Tablet 10 mg PO DAILY isosorbide mononitrate 60 mg Tablet Extended Release 24 Hr 60 mg PO DAILY Lexapro 20 mg tablet 10 mg PO QAM hydralazine 10 mg Tablet 10 mg PO QAM carvedilol 12.5 mg Tablet 12.5 mg PO QAM amlodipine 10 mg Tablet 10 mg PO BEDTIME nitroglycerin [Nitrostat] 0.4 mg Tablet, Sublingual 0.4 mg SUBLINGUAL Q5M PRN (Reason: Chest Pain) Rx Instructions: do not exceed 3 doses per episode losartan 100 mg tablet 100 mg PO BEDTIME Ozempic 0.25 mg or 0.5 mg(2 mg/1.5 mL) pen injector 0.5 mg SUBCUT Q7D Qty: 1.5 5RF Rx Instructions: on friday Discharge Orders: Discharge ED (Routine); Ordered 08/10/22 Ordered By: Gigi Bautista Referrals: Carlee Carreon DO [Primary Care Provider] - Patient Instructions: Chest Pain (ED) Coding Level of Care Code ED Pharmaceutical Laboratory Technician for Les Fuentes
[2022-08-10 13:41] LABS: Alanine Aminotransferase 11 U/L (0-41); Albumin Level 4.1 g/dL (3.5-5.2); Alkaline Phosphatase 187 U/L (40-130); Aspartate Amino Transferase 13 U/L (0-40); Blood Urea Nitrogen 25 mg/dL (8-23); Carbon Dioxide 31 mmol/L (22-29); Chloride 94 mmol/L (98-107); Globulin 2.2 g/dL (1.3-4.6); Glucose 137 mg/dL (65-115); Magnesium 2.3 mg/dL (1.7-2.3); Osmolality Calculated 289 mOsm/kg (285-295); Phosphorus 2.8 mg/dL (2.5-4.5); Sodium 136 mmol/L (136-145); Total Bilirubin 0.4 mg/dL (0.15-1.2); Total Protein 6.3 g/dL (6.6-8.7)
[2022-08-10 13:47] LABS: Troponin(5th) Baseline 126 ng/L (0-15)
--- NOTE | 2022-08-10 15:07 | ECG_ITS ---
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 Measurements Intervals [place] Rate: 62 P: 25 [place]: 309 QRS: 24 QRSD: 106 T: 0 QT: 422 QTc: 430 Interpretive Statements SINUS RHYTHM WITH FIRST DEGREE AV BLOCK Compared to ECG 08/10/2022 13:11:47 No significant changes Electronically Signed On 08-11-2022 9:47:10 CDT by Сергей Thapa M.D. [id number]
--- NOTE | 2022-08-10 15:30 | PC.NURSE ---
PT PLACED ON CONTINUOUS NIBP, SP2, AND CM
[2022-08-10 16:45] LABS: Troponin 5 2HR Delta -13.1 ABS# (0-10)
[2022-08-10 16:46] LABS: Troponin 5 2HR 112.9 ng/L (0-15)
== END 2022-08-10 17:40 | disposition home or self-care (01) ==
PROVIDERS: Emergency Provider Emergency Medicine; PCP Family Medicine
DX: R07.89 Other chest pain (principal); Z79.4 Long term (current) use of insulin; Z79.82 Long term (current) use of aspirin; Z79.02 Long term (current) use of antithrombotics/antiplatelets; I25.10 Atherosclerotic heart disease of native coronary artery without angina pectoris; I13.2 Hypertensive heart and chronic kidney disease with heart failure and with stage 5 chronic kidney disease, or end stage renal disease; E13.22 Other specified diabetes mellitus with diabetic chronic kidney disease; N18.6 End stage renal disease; I50.9 Heart failure, unspecified; Z86.73 Personal history of transient ischemic attack (TIA), and cerebral infarction without residual deficits; I25.2 Old myocardial infarction
CPT/HCPCS: 71045; 80053; 83735; 84100; 84484; 85025; 93005; 99285

== ENCOUNTER 2022-08-13 02:24 | Emergency (ER) | payer MEDICARE, SELFPAY ==
[2022-08-13 02:26] VITALS: BP 163/76; PULSE 75; RESP 18; TEMP 36.5; O2SAT 94; BMI 34.7
--- NOTE | 2022-08-13 02:27 | XRR_ITS ---
PROCEDURE INFORMATION: Exam: XR Chest Exam date and time: 08/13/2022 2:30 AM Age: 72 years old Clinical indication: Chest pressure; Prior surgery; Surgery type: Coronary stents. Thoracolumbar fusion; Patient HX: C/O chest pain; Additional info: Cp TECHNIQUE: Imaging protocol: Radiologic exam of the chest. Views: 1 view. COMPARISON: CR (CHEST, ) 08/10/2022 1:16 PM FINDINGS: Lungs: No consolidation. Increased bilateral hazy ground-glass opacities and prominence of the pulmonary vasculatur. Pleural spaces: Blunting of the CP angles may represent small pleural effusions versus atelectasis and/or scarring. No pneumothorax. Heart/Mediastinum: The cardiac silhouette appears enlarged. Bones/joints: No acute fracture. Partially imaged bilateral posterior rods and pedicle screws fixing the lower thoracic spine are re-identified. Irregular sclerotic changes within the right scapula, consider Paget's, correlate clinically. XR/XR chest 1V portable [id number] IMPRESSION: Increased bilateral ground-glass opacities and prominence of the pulmonary vasculature, this finding is likely the at least partially related to low lung volumes and technique however other etiologies including early changes of fluid overload and/or CHF are also consideration. An upright full inspiratory PA radiograph of the chest may be helpful for further evaluation. Correlate and follow-up as clinically indicated.
[2022-08-13 02:31] VITALS: O2SAT 94
--- NOTE | 2022-08-13 02:31 | W.ED.CHESTPA ---
HPI - Chest Pain General: Chief Complaint: Chest Pain Stated Complaint: chest tightness Time Seen by Provider: 08/13/22 02:27 Source: patient and EMS Mode of arrival: EMS Limitations: no limitations History of Present Illness: 72-year-old male states that he started having chest pain around midnight states been a burning type pain in his chest is seen here over the weekend for the same he is on dialysis receives dialysis Friday he went to Friday. He denies any cough denies any fever denies any shortness of breath he is in no distress here. Associated symptoms: Deny abdominal pain, dyspnea, fever(s), nausea or vomiting Review of Systems Const: Denies: fever(s) or chills ENMT: Denies: throat pain or dental pain Card: Reports: chest pain Resp: Denies: dyspnea GI: Denies: abdominal pain, nausea, vomiting or diarrhea : Denies: dysuria Musc: Denies: neck pain or back pain Skin/Breast: Denies: rash Neuro: Denies: headache(s) PFSH ED PFSH: Medical History Acute kidney injury superimposed on CKD Anemia CAD (coronary artery disease) Cardiac enzymes elevated Carotid stenosis, bilateral Chest pain Chronic back pain Chronic kidney disease Chronic kidney disease (CKD) stage G5/A1, glomerular filtration rate (GFR) less than or equal to 15 mL/min/1.73 square meter and albuminuria creatinine ratio less than 30 mg/g Congestive 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 CVA (cerebral vascular accident) Diabetes 1.5, 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 Dyslipidemia ESRD (end stage renal disease) Essential hypertension Hemodialysis access site with arteriovenous graft History of 2019 novel coronavirus disease (COVID-19) Hypothyroidism NSTEMI (non-ST elevated myocardial infarction) KAITLYNN (obstructive sleep apnea) Paget's disease Surgical History History of esophagogastroduodenoscopy (EGD) 10 yrs ago Hx of cholecystectomy Previous back surgery S/P angioplasty with stent S/P cataract extraction S/P hemodialysis catheter insertion Family History Mother CAD (coronary artery disease) Stroke Sister Hypertension Social History Smoking and tobacco status: never smoked Alcohol intake: never Substance/Drug Use: never Household members: spouse Marital status: service: Yes branch: [employer] Current occupational status: employed 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 Current gender 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: Male Physical Exam Const: COMMON NORMALS: patient oriented x3 HENMT: COMMON NORMALS: normocephalic and atraumatic HEAD & SCALP: normocephalic and atraumatic Eye: COMMON NORMALS: Equal, round and reactive pupils present and EOMs intact bilaterally PUPIL: Yes Equal, round and reactive pupils present Neck/C-Spine: COMMON NORMALS: full ROM and supple Chest: COMMONS NORMALS: normal inspection of the chest and normal palpation of entire chest wall Resp: COMMON NORMALS: normal respiratory effort, No retractions, No use of accessory muscles and clear to auscultation bilaterally AUSCULTATION: clear to auscultation bilaterally Cardio: COMMON NORMALS: regular rate, regular rhythm and No murmurs present (Cardio) RATE: regular rate RHYTHM: regular rhythm GI: COMMON NORMALS: Normal to inspection, nondistended, normoactive bowel sounds present, Soft to palpation, non-tender and no masses PALPATION: Yes Soft to palpation Extremity: COMMON NORMALS: normal to inspection and full ROM Neuro: COMMON NORMALS: patient oriented x3, moves all extremities and no focal motor deficits Psych: COMMON NORMALS: mental status grossly normal, Normal thought process present and cooperative THOUGHT PROCESS: Normal thought process present Skin: COMMON NORMALS: no rashes or lesions noted and no wounds GENERAL SKIN EXAM: no rashes or lesions noted Course Vital Signs: Vital signs: Vital Signs Temperature 97.7 F 08/13/22 02:26 Pulse Rate 63 08/13/22 04:05 Respiratory Rate 16 08/13/22 04:05 Blood Pressure 140/60 08/13/22 04:05 Pulse Oximetry 90 08/13/22 04:05 Oxygen Delivery Me thod Room Air 08/13/22 02:31 MDM - Chest Pain Medical Decision Making Patient presents here with chest pains atypical in nature his troponins here at his baseline no sign of acute coronary syndrome he is stable for discharge patient is to get dialysis as scheduled today follow-up with PCP and return if worsening. Lab Data 08/13/22 02:32 08/13/22 02:32 Radiology Impressions Chest X-Ray 08/13/22 02:27 IMPRESSION: Increased bilateral ground-glass opacities and prominence of the pulmonary vasculature, this finding is likely the at least partially related to low lung volumes and technique however other etiologies including early changes of fluid overload and/or CHF are also consideration. An upright full inspiratory PA radiograph of the chest may be helpful for further evaluation. Correlate and follow-up as clinically indicated. Laboratory Results WBC 9.0 10^3/uL (4.0-10.0) 08/13/22 02:32 RBC 3.61 10^6/uL (4.1-5.3) L 08/13/22 02:32 Hgb 10.5 g/dL (11.7-16.6) L 08/13/22 02:32 Hct 32.6 % (42.0-52.0) L 08/13/22 02:32 MCV 90.3 fl (80-94) 08/13/22 02:32 MCH 29.1 pg (28.0-34.0) 08/13/22 02:32 MCHC 32.2 g/dL (30.0-36.0) 08/13/22 02:32 RDW 13.5 % (12.1-15.1) 08/13/22 02:32 Plt Count 204 10^3/cmm (130-400) 08/13/22 02:32 MPV 9.2 fL (7.4-10.4) 08/13/22 02:32 Neut % (Auto) 59.7 % 08/13/22 02:32 Lymph % (Auto) 25.0 % 08/13/22 02:32 [place] % (Auto) 8.2 % 08/13/22 02:32 Eos % (Auto) 5.8 % 08/13/22 02:32 Baso % (Auto) 0.9 % 08/13/22 02:32 Neut # (Auto) 5.38 10^3/uL (1.8-7.7) 08/13/22 02:32 Lymph # (Auto) 2.3 10^3/uL (0.8-4.8) 08/13/22 02:32 [place] # (Auto) 0.7 10^3/uL (0.2-0.9) 08/13/22 02:32 Eos # (Auto) 0.5 10^3/uL (0.0-0.8) 08/13/22 02:32 Baso # (Auto) 0.1 10^3/uL (0.0-0.1) 08/13/22 02:32 Nucleated RBC % (auto) 0 % 08/13/22 02:32 Nucleated RBCs # 0.0 /100WBC 08/13/22 02:32 PT 12.70 SECONDS (12.1-14.9) 08/13/22 02:32 INR 0.92 (0.8-1.2) 08/13/22 02:32 Sodium 138 mmol/L (136-145) 08/13/22 02:32 Potassium 4.6 mmol/L (3.5-5.1) 08/13/22 02:32 Chloride 96 mmol/L (98-107) L 08/13/22 02:32 Carbon Dioxide 27 mmol/L (22-29) 08/13/22 02:32 Anion Gap 19.6 (5-19) H 08/13/22 02:32 BUN 62 mg/dL (8-23) H 08/13/22 02:32 Creatinine 5.4 mg/dL (0.7-1.2) H 08/13/22 02:32 GFR Calculation Not Reportable 08/13/22 02:32 Glucose 274 mg/dL (65-115) H 08/13/22 02:32 Calculated Osmolality 313 mOsm/kg (285-295) H 08/13/22 02:32 Calcium 9.2 mg/dL (8.5-10.5) 08/13/22 02:32 Total Bilirubin 0.3 mg/dL (0.15-1.2) 08/13/22 02:32 AST 10 U/L (0-40) 08/13/22 02:32 ALT 10 U/L (0-41) 08/13/22 02:32 Alkaline Phosphatase 194 U/L (40-130) H 08/13/22 02:32 Troponin T Baseline 102 ng/L (0-15) H* 08/13/22 02:32 Troponin T 120 Minute 98.21 ng/L (0-15) H 08/13/22 04:16 Delta Troponin T -3.79 ABS# (0-10) L 08/13/22 04:16 Total Protein 6.6 g/dL (6.6-8.7) 08/13/22 02:32 Albumin 4.2 g/dL (3.5-5.2) 08/13/22 02:32 Globulin 2.4 g/dL (1.3-4.6) 08/13/22 02:32 Discharge Plan Discharge Patient Disposition: Home Clinical Impression: Chest pain Condition: Stable Prescriptions: No Action pantoprazole 40 mg tablet,delayed release (DR/EC) 40 mg PO QAM terazosin 10 mg capsule 10 mg PO BID acetaminophen [Tylenol Extra Strength] 500 mg tablet 1,000 mg PO Q6H PRN (Reason: Pain) allopurinol 300 mg tablet 300 mg PO BEDTIME Novolog FlexPen U-100 Insulin 100 unit/mL (3 mL) insulin pen See Rx Instructions .ROUTE .COMPLEX Qty: 15 0RF Rx Instructions: SLIDING SCALE Before or right after meals prn (DME) Diabetic Shoes See Rx Instructions .ROUTE .MEDSUPPLY Qty: 1 0RF Rx Instructions: As directed J P & O with 3 pairs of inserts (DME) Diabetic Shoes See Rx Instructions .ROUTE .MEDSUPPLY Qty: 1 0RF Rx Instructions: As directed By J P & O with 3 pairs of inserts magnesium oxide 400 mg magnesium capsule 400 mg PO BEDTIME rosuvastatin [Crestor] 10 mg tablet 10 mg PO BEDTIME sevelamer carbonate 800 mg tablet 800 mg PO TID Rx Instructions: must administer with a meal/food cholecalciferol (vitamin D3) 50 mcg (2,000 unit) capsule 50 mcg PO DAILY omega 4-abk-nbs-fish oil [Fish Oil] 1,000 mg (120 mg-180 mg) capsule 1 cap PO BID (DME) BIPAP and supplies See Rx Instructions .Route .MEDSUPPLY Qty: 1 0RF Rx Instructions: with 2L of oxygen when in use furosemide 40 mg tablet 80 mg PO BID levothyroxine 25 mcg Tablet 25 mcg PO QAM clopidogrel 75 mg tablet 75 mg PO BEDTIME Hold Instructions: Resume on 07/10/21. aspirin 81 mg tablet,delayed release (DR/EC) 81 mg PO QAM Hold Instructions: Resume on 07/07/21. Levemir FlexTouch U-100 Insuln 100 unit/mL (3 mL) insulin pen 14 unit SUBCUT BID cetirizine [Zyrtec] 10 mg Tablet 10 mg PO DAILY isosorbide mononitrate 60 mg Tablet Extended Release 24 Hr 60 mg PO DAILY Lexapro 20 mg tablet 10 mg PO QAM hydralazine 10 mg Tablet 10 mg PO QAM carvedilol 12.5 mg Tablet 12.5 mg PO QAM amlodipine 10 mg Tablet 10 mg PO BEDTIME nitroglycerin [Nitrostat] 0.4 mg Tablet, Sublingual 0.4 mg SUBLINGUAL Q5M PRN (Reason: Chest Pain) Rx Instructions: do not exceed 3 doses per episode losartan 100 mg tablet 100 mg PO BEDTIME Ozempic 0.25 mg or 0.5 mg(2 mg/1.5 mL) pen injector 0.5 mg SUBCUT Q7D Qty: 1.5 5RF Rx Instructions: on friday Discharge Orders: Discharge ED (Routine); Ordered 08/13/22 Ordered By: Tino Ignacio Referrals: Carlee Carreon DO [Primary Care Provider] - 1-3 days Discharge Diet: Advance as tolerated Discharge Activity: Resume usual activity Patient Instructions: Chest Pain (ED) Coding Level of Care Code ED Railroad Dining Car Steward/Stewardess for Les Fuentes
[2022-08-13 02:32] VITALS: BP 170/70; PULSE 68
--- NOTE | 2022-08-13 02:32 | ECG_ITS ---
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 Measurements Intervals [place] Rate: 68 P: 26 UT: 273 QRS: -8 QRSD: 106 T: 29 QT: 401 QTc: 426 Interpretive Statements SINUS RHYTHM WITH FIRST DEGREE AV BLOCK MODERATE INTRAVENTRICULAR CONDUCTION DELAY [105+ ms QRS DURATION, 80+ ms Q/S IN V1/V2, NO Q AND 60+ ms R IN I/aVL/V5/V6] Compared to ECG 08/10/2022 15:55:04 Intraventricular conduction delay now present Electronically Signed On 08-13-2022 10:10:49 CDT by Daryl Ashraf M.D. [id number]
[2022-08-13 02:38] LABS: Basophils # 0.1 10^3/uL (0.0-0.1); Basophils % 0.9 %; Eosinophils # 0.5 10^3/uL (0.0-0.8); Eosinophils % 5.8 %; Hematocrit 32.6 % (42.0-52.0); Hemoglobin 10.5 g/dL (11.7-16.6); Lymphocytes # 2.3 10^3/uL (0.8-4.8); Mean Corpuscular HGB Conc 32.2 g/dL (30.0-36.0); Mean Corpuscular Hemoglobin 29.1 pg (28.0-34.0); Mean Corpuscular Volume 90.3 fl (80-94); Mean Platelet Volume 9.2 fL (7.4-10.4); Monocytes # 0.7 10^3/uL (0.2-0.9); Monocytes % 8.2 %; Neutrophils # 5.38 10^3/uL (1.8-7.7); Neutrophils % 59.7 %; Nucleated Red Blood Cells % 0 %; Platelet Count 204 10^3/cmm (130-400); Red Blood Count 3.61 10^6/uL (4.1-5.3); Red Cell Distribution Width 13.5 % (12.1-15.1)
[2022-08-13] MEDS: HYDROmorphone 1 mg/mL INJ 1 mL 0.5 MG IVP (02:39)
[2022-08-13] MEDS: ondansetron 2 mg/ML SDV 2 mL 4 MG IVP (02:39)
[2022-08-13 02:54] LABS: INR 0.92 (0.8-1.2)
[2022-08-13 03:02] LABS: Alanine Aminotransferase 10 U/L (0-41); Albumin Level 4.2 g/dL (3.5-5.2); Alkaline Phosphatase 194 U/L (40-130); Anion Gap 19.6 (5-19); Aspartate Amino Transferase 10 U/L (0-40); Blood Urea Nitrogen 62 mg/dL (8-23); Calcium 9.2 mg/dL (8.5-10.5); Carbon Dioxide 27 mmol/L (22-29); Chloride 96 mmol/L (98-107); Globulin 2.4 g/dL (1.3-4.6); Glucose 274 mg/dL (65-115); Osmolality Calculated 313 mOsm/kg (285-295); Potassium 4.6 mmol/L (3.5-5.1); Sodium 138 mmol/L (136-145); Total Bilirubin 0.3 mg/dL (0.15-1.2); Total Protein 6.6 g/dL (6.6-8.7); Troponin(5th) Baseline 102 ng/L (0-15)
[2022-08-13 04:05] VITALS: BP 140/60; PULSE 63; RESP 16; O2SAT 90
[2022-08-13 04:49] LABS: Troponin 5 2HR 98.21 ng/L (0-15)
[2022-08-13 04:50] LABS: Troponin 5 2HR Delta -3.79 ABS# (0-10)
== END 2022-08-13 05:07 | disposition home or self-care (01) ==
PROVIDERS: Emergency Provider Emergency Medicine; PCP Family Medicine
DX: R07.9 Chest pain, unspecified (principal); Z79.82 Long term (current) use of aspirin; Z79.02 Long term (current) use of antithrombotics/antiplatelets; Z79.4 Long term (current) use of insulin; I25.10 Atherosclerotic heart disease of native coronary artery without angina pectoris; I13.2 Hypertensive heart and chronic kidney disease with heart failure and with stage 5 chronic kidney disease, or end stage renal disease; E13.22 Other specified diabetes mellitus with diabetic chronic kidney disease; N18.6 End stage renal disease; I50.9 Heart failure, unspecified; Z86.73 Personal history of transient ischemic attack (TIA), and cerebral infarction without residual deficits; E78.5 Hyperlipidemia, unspecified; I25.2 Old myocardial infarction
CPT/HCPCS: 71045; 80053; 84484; 85025; 85610; 93005; 96374; 96375; 99285; J1170; J2405

== ENCOUNTER 2022-08-18 07:14 | Inpatient (IN) | payer OTHER, SELFPAY ==
[2022-08-18] VITALS (10 sets, daily range): BP systolic 171–183; BP diastolic 77–87; PULSE 66–85; RESP 14–18; TEMP 36.8–37.2; O2SAT 88–94
--- NOTE | 2022-08-18 07:18 | XRR_ITS ---
PROCEDURE INFORMATION: Exam: XR Chest Exam date and time: 08/18/2022 7:10 AM Age: 72 years old Clinical indication: Pain; Chest pressure; Prior surgery; Surgery type: Gb; Additional info: Chest pain TECHNIQUE: Imaging protocol: Radiologic exam of the chest. Views: 1 view. COMPARISON: 1. CR (CHEST, ) 08/13/2022 2:30 AM 2. CR XR chest 1V portable [id number] 11/14/2020 10:58 AM FINDINGS: Lungs: There is no consolidation. Pleural spaces: There is no pleural effusion or pneumothorax. Heart/Mediastinum: There is moderate enlargement of the cardiac silhouette. Diaphragm: There is mild asymmetric elevation of the right hemidiaphragm. Bones/joints: Posterolateral thoracolumbar fusion is partially imaged. There is asymmetric bone sclerosis in the right scapula and glenoid, stable since 2020. No acute fracture. XR/XR chest 1V portable [id number] IMPRESSION: 1. No acute findings. 2. Chronic bone sclerosis in the right scapula. Possible Paget's disease of bone.
--- NOTE | 2022-08-18 07:19 | ECG_ITS ---
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 Measurements Intervals [place] Rate: 88 P: 38 MN: 253 QRS: 3 QRSD: 101 T: 43 QT: 379 QTc: 459 Interpretive Statements SINUS RHYTHM WITH FIRST DEGREE AV BLOCK NONSPECIFIC T-WAVE ABNORMALITY INTERPRETATION BASED ON A DEFAULT AGE OF 40 YEARS Compared to ECG 08/13/2022 02:32:52 T-wave abnormality now present Intraventricular conduction delay no longer present Electronically Signed On 08-18-2022 22:30:12 CDT by Mohit Albarado M.D. [id number] f
--- NOTE | 2022-08-18 07:20 | W.ED.CHESTPA ---
HPI - Chest Pain General: Chief Complaint: Chest Pain Stated Complaint: CHEST PAIN Time Seen by Provider: 08/18/22 07:17 Source: patient Mode of arrival: ambulatory History of Present Illness: 72-year-old male presents emergency room with complaints of chest pain. Initially woke around 1 AM with vomiting. This lasted around 3 AM he denied any chest pain at that time 905 he began having chest pain. He is still nauseous with that he also has some left-sided abdominal pain. No hematemesis coffee-ground emesis. Patient has end-stage renal disease and is on hemodialysis. MD complaint: chest pain Onset (ago): minute(s) Timing of current episode: episodic Onset: during rest Pain location: left chest Quality: tightness and aching PFSH ED PFSH: Medical History Acute kidney injury superimposed on CKD Anemia CAD (coronary artery disease) Cardiac enzymes elevated Carotid stenosis, bilateral Chest pain Chronic back pain Chronic kidney disease Chronic kidney disease (CKD) stage G5/A1, glomerular filtration rate (GFR) less than or equal to 15 mL/min/1.73 square meter and albuminuria creatinine ratio less than 30 mg/g Congestive 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 CVA (cerebral vascular accident) Diabetes 1.5, 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 Dyslipidemia ESRD (end stage renal disease) Essential hypertension Hemodialysis access site with arteriovenous graft History of 2019 novel coronavirus disease (COVID-19) Hypothyroidism NSTEMI (non-ST elevated myocardial infarction) KAITLYNN (obstructive sleep apnea) Paget's disease Surgical History History of esophagogastroduodenoscopy (EGD) 10 yrs ago Hx of cholecystectomy Previous back surgery S/P angioplasty with stent S/P cataract extraction S/P hemodialysis catheter insertion Family History Mother CAD (coronary artery disease) Stroke Sister Hypertension Social History Smoking and tobacco status: never smoked Alcohol intake: never Substance/Drug Use: never Household members: spouse Marital status: service: Yes branch: [employer] Current occupational status: employed 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 Current gender identity: Male Physical Exam Const: GENERAL APPEARANCE: cooperative and comfortable ORIENTATION/CONSCIOUSNESS: Yes awake, Yes oriented to person, Yes oriented to place and Yes oriented to time HENMT: COMMON NORMALS: normocephalic, atraumatic and hearing grossly normal bilaterally HEAD & SCALP: normocephalic and atraumatic Resp: COMMON NORMALS: normal respiratory effort, No retractions, No use of accessory muscles and clear to auscultation bilaterally AUSCULTATION: clear to auscultation bilaterally Cardio: COMMON NORMALS: regular rate, regular rhythm and No murmurs present (Cardio) RATE: regular rate RHYTHM: regular rhythm GI: COMMON NORMALS: No hepatosplenomegaly present AUSCULTATION: Yes normoactive bowel sounds PALPATION: Yes Tenderness to palpation present (GI) Details: LLQ, No Guarding due to palpation present (GI) and Yes No hepatosplenomegaly present Extremity: COMMON NORMALS: normal to inspection, capillary refill normal, no clubbing, cyanosis or edema, no calf tenderness and no pedal edema Neuro: SENSORIUM/ORIENTATION: Yes oriented to person, Yes oriented to place and Yes oriented to time Skin: COMMON NORMALS: no rashes or lesions noted GENERAL SKIN EXAM: no rashes or lesions noted Course Vital Signs: Vital signs: Vital Signs Pulse Rate 79 08/18/22 10:10 Respiratory Rate 18 08/18/22 08:15 Blood Pressure 171/81 08/18/22 10:10 Pulse Oximetry 94 08/18/22 10:10 Oxygen Delivery Me thod Nasal Cannula 08/18/22 10:10 Oxygen Flow Rate 2 08/18/22 10:10 MDM - Chest Pain Medical Decision Making Patient has unstable angina with symptoms of chest pain while at rest relieved by nitro. His initial troponin was elevated reviewing his chart he is chronically elevated which started him on heparin because of his initial troponin was continued because he had relief of pain with the nitro. EKG does not show any acute ST elevation changes. We will admit discussed with hospitalist will consult Dr. Albarado. In the setting of patient known heart disease chest pain at rest relieved by nitro and he has had not stress test within the last year that was read as negative. Lab Data 08/18/22 08:15 08/18/22 08:15 Radiology Impressions Chest X-Ray 08/18/22 07:18 IMPRESSION: 1. No acute findings. 2. Chronic bone sclerosis in the right scapula. Possible Paget's disease of bone. Abdomen/Pelvis CT 08/18/22 07:25 IMPRESSION: 1. Posterolateral thoracolumbar fusion without apparent complications. There is diffuse lumbar degenerative disease with severe spinal stenosis at L4-L5. 2. 2.5 cm indeterminate right renal lesion, increased in size since 2020. Possible complicated cyst or neoplasm. Recommend nonemergent follow-up CT or MRI with and without IV contrast. 3. Incidental findings above. COMMENTS: Consistent with the [place] [employer]'s Incidental Findings Committee white paper (J Am Sosa Radiol 2018): Any incidental renal lesion less than 1 cm or classified as too small to characterize, or any incidental cystic renal lesion characterized as simple-appearing, is likely benign. No follow-up imaging is recommended for these lesions per consensus recommendations based on imaging criteria. Laboratory Results WBC 12.1 10^3/uL (4.0-10.0) H 08/18/22 08:15 RBC 3.94 10^6/uL (4.1-5.3) L 08/18/22 08:15 Hgb 11.4 g/dL (11.7-16.6) L 08/18/22 08:15 Hct 35.5 % (42.0-52.0) L 08/18/22 08:15 MCV 90.1 fl (80-94) 08/18/22 08:15 MCH 28.9 pg (28.0-34.0) 08/18/22 08:15 MCHC 32.1 g/dL (30.0-36.0) 08/18/22 08:15 RDW 13.7 % (12.1-15.1) 08/18/22 08:15 Plt Count 232 10^3/cmm (130-400) 08/18/22 08:15 MPV 8.6 fL (7.4-10.4) 08/18/22 08:15 Neut % (Auto) 83.9 % 08/18/22 08:15 Lymph % (Auto) 8.4 % 08/18/22 08:15 [place] % (Auto) 5.5 % 08/18/22 08:15 Eos % (Auto) 1.3 % 08/18/22 08:15 Baso % (Auto) 0.6 % 08/18/22 08:15 Neut # (Auto) 10.14 10^3/uL (1.8-7.7) H 08/18/22 08:15 Lymph # (Auto) 1.0 10^3/uL (0.8-4.8) 08/18/22 08:15 [place] # (Auto) 0.7 10^3/uL (0.2-0.9) 08/18/22 08:15 Eos # (Auto) 0.2 10^3/uL (0.0-0.8) 08/18/22 08:15 Baso # (Auto) 0.1 10^3/uL (0.0-0.1) 08/18/22 08:15 Nucleated RBC % (auto) 0 % 08/18/22 08:15 Nucleated RBCs # 0.0 /100WBC 08/18/22 08:15 APTT 31.6 SECONDS (23.9-36.7) 08/18/22 08:15 Sodium 135 mmol/L (136-145) L 08/18/22 08:15 Potassium 4.3 mmol/L (3.5-5.1) 08/18/22 08:15 Chloride 91 mmol/L (98-107) L 08/18/22 08:15 Carbon Dioxide 31 mmol/L (22-29) H 08/18/22 08:15 Anion Gap 17.3 (5-19) 08/18/22 08:15 BUN 18 mg/dL (8-23) 08/18/22 08:15 Creatinine 2.9 mg/dL (0.7-1.2) H 08/18/22 08:15 GFR Calculation Not Reportable 08/18/22 08:15 Glucose 209 mg/dL (65-115) H 08/18/22 08:15 Calculated Osmolality 288 mOsm/kg (285-295) 08/18/22 08:15 Calcium 10.2 mg/dL (8.5-10.5) 08/18/22 08:15 Total Bilirubin 0.4 mg/dL (0.15-1.2) 08/18/22 08:15 AST 13 U/L (0-40) 08/18/22 08:15 ALT 12 U/L (0-41) 08/18/22 08:15 Alkaline Phosphatase 203 U/L (40-130) H 08/18/22 08:15 Troponin T Baseline 103 ng/L (0-15) H* 08/18/22 08:15 Troponin T 120 Minute 95.32 ng/L (0-15) H 08/18/22 10:25 Delta Troponin T -7.68 ABS# (0-10) L 08/18/22 10:25 Total Protein 7.8 g/dL (6.6-8.7) 08/18/22 08:15 Albumin 4.4 g/dL (3.5-5.2) 08/18/22 08:15 Globulin 3.4 g/dL (1.3-4.6) 08/18/22 08:15 Lipase 29 U/L (13-60) 08/18/22 08:15 Urine Color Yellow (Yellow) 08/18/22 10:20 Urine Appearance Clear (CLEAR) 08/18/22 10:20 Urine pH 9 (5-7) H 08/18/22 10:20 Ur Specific [place] 1.010 (1.005-1.030) 08/18/22 10:20 Urine Protein Neg (Negative) 08/18/22 10:20 Urine Glucose (UA) Norm (Normal) 08/18/22 10:20 Urine Ketones Negative (Negative) 08/18/22 10:20 Urine Blood Neg (Negative) 08/18/22 10:20 Urine Nitrate Negative (Negative) 08/18/22 10:20 Urine Bilirubin Neg (Negative) 08/18/22 10:20 Prot Sulfosalicylic Acd Negative (Negative) 08/18/22 10:20 Urine Urobilinogen Norm mg/dL (Negative) 08/18/22 10:20 Ur Leukocyte Esterase Negative (Negative) 08/18/22 10:20 Discharge Plan Discharge Patient Disposition: Admitted As Inpatient Admit Provider: Corbin Trujillo Clinical Impression: Unstable angina, Anemia, CAD (coronary artery disease), Chronic kidney disease (CKD) Condition: Stable Coding Level of Care Code ED Oracle E Business Developer for Les Fuentes
--- NOTE | 2022-08-18 07:25 | CTR_ITS ---
PROCEDURE INFORMATION: Exam: CT Abdomen And Pelvis Without Contrast Exam date and time: 08/18/2022 8:21 AM Age: 72 years old Clinical indication: Abdominal pain; Prior surgery; Surgery type: Back gb TECHNIQUE: Imaging protocol: Computed tomography of the abdomen and pelvis without contrast. Radiation optimization: All CT scans at this facility use at least one of these dose optimization techniques: automated exposure control; mA and/or kV adjustment per patient size (includes targeted exams where dose is matched to clinical indication); or iterative reconstruction. REPORTING DATA: Count of CT and Cardiac NM exams in prior 12 months: This patient has received [address] and 0 known cardiac nuclear medicine studies in the 12 months prior to the current study. COMPARISON: CT abdomen pelvis wo con [id number] 08/11/2020 9:30 AM RADIATION DOSE METRICS: Total DLP (mGy-cm): 992.93 FINDINGS: Lungs: There is subsegmental atelectasis in the lung bases. Heart: There is mild cardiac enlargement. Coronary arteries: There is severe coronary artery calcification. Liver: The liver is normal. Gallbladder and bile ducts: The gallbladder is absent. There is no intrahepatic or extrahepatic bile duct dilation. Pancreas: The pancreas is unremarkable. Spleen: The spleen is unremarkable. Adrenal glands: The adrenal glands are unremarkable. Kidneys and ureters: There is moderate atrophy of both kidneys. There is no hydronephrosis or stones. There is a simple cyst at the right lower pole measuring 6.1 cm diameter. There is an intermediate density exophytic right renal lesion at the lower pole measuring 2.5 x 2.3 cm.The right lower pole renal lesion is increased from 16 x 16 mm on 08/11/2020. There is no hydronephrosis or stones. No mass or cyst on the left. Stomach and bowel: The stomach is decompressed, preventing meaningful evaluation of wall thickness. The small bowel is nondilated. There is moderate distal descending and sigmoid colonic diverticulosis without evidence of diverticulitis. Appendix: The appendix is normal. Intraperitoneal space: There is no free air or significant intraperitoneal free fluid. Vasculature: There is severe aortic atherosclerotic disease. Lymph nodes: There is no lymphadenopathy in the retroperitoneum, mesentery, pelvis or inguinal regions. Urinary bladder: Small left bladder diverticulum. No stones. Reproductive: The prostate and seminal vesicles are unremarkable. Bones/joints: Extensive posterolateral thoracolumbar fusion. Hardware is intact. No sign of loosening. The L2 vertebral body is mildly enlarged and sclerotic, similar to 08/11/2020 suggesting Paget's disease of bone. There is bilateral L1 and L2 laminectomy. There is moderate multilevel lumbar disc degeneration. There is severe spinal stenosis at L4-L5. The pelvis and hips are unremarkable. Soft tissues: The abdominal wall is intact. CT/CT abdomen pelvis wo con [id number] IMPRESSION: 1. Posterolateral thoracolumbar fusion without apparent complications. There is diffuse lumbar degenerative disease with severe spinal stenosis at L4-L5. 2. 2.5 cm indeterminate right renal lesion, increased in size since 2020. Possible complicated cyst or neoplasm. Recommend nonemergent follow-up CT or MRI with and without IV contrast. 3. Incidental findings above. COMMENTS: Consistent with the [place] [employer]'s Incidental Findings Committee white paper (J Am Sosa Radiol 2018): Any incidental renal lesion less than 1 cm or classified as too small to characterize, or any incidental cystic renal lesion characterized as simple-appearing, is likely benign. No follow-up imaging is recommended for these lesions per consensus recommendations based on imaging criteria.
[2022-08-18] MEDS: nitroglycerin 1 gm/inch oint Pkt 1 INCH TOPICAL ×2 (07:46→21:02)
[2022-08-18 08:28] LABS: Basophils # 0.1 10^3/uL (0.0-0.1); Basophils % 0.6 %; Eosinophils # 0.2 10^3/uL (0.0-0.8); Eosinophils % 1.3 %; Hematocrit 35.5 % (42.0-52.0); Hemoglobin 11.4 g/dL (11.7-16.6); Lymphocytes % 8.4 %; Mean Corpuscular HGB Conc 32.1 g/dL (30.0-36.0); Mean Corpuscular Hemoglobin 28.9 pg (28.0-34.0); Mean Corpuscular Volume 90.1 fl (80-94); Mean Platelet Volume 8.6 fL (7.4-10.4); Monocytes # 0.7 10^3/uL (0.2-0.9); Monocytes % 5.5 %; Neutrophils # 10.14 10^3/uL (1.8-7.7); Neutrophils % 83.9 %; Nucleated Red Blood Cells % 0 %; Platelet Count 232 10^3/cmm (130-400); Red Blood Count 3.94 10^6/uL (4.1-5.3); Red Cell Distribution Width 13.7 % (12.1-15.1); White Blood Count 12.1 10^3/uL (4.0-10.0)
[2022-08-18 08:57] LABS: Alanine Aminotransferase 12 U/L (0-41); Albumin Level 4.4 g/dL (3.5-5.2); Alkaline Phosphatase 203 U/L (40-130); Anion Gap 17.3 (5-19); Aspartate Amino Transferase 13 U/L (0-40); Blood Urea Nitrogen 18 mg/dL (8-23); Calcium 10.2 mg/dL (8.5-10.5); Carbon Dioxide 31 mmol/L (22-29); Chloride 91 mmol/L (98-107); Globulin 3.4 g/dL (1.3-4.6); Glucose 209 mg/dL (65-115); Lipase 29 U/L (13-60); Osmolality Calculated 288 mOsm/kg (285-295); Potassium 4.3 mmol/L (3.5-5.1); Sodium 135 mmol/L (136-145); Total Bilirubin 0.4 mg/dL (0.15-1.2); Total Protein 7.8 g/dL (6.6-8.7)
[2022-08-18 09:19] LABS: Troponin(5th) Baseline 103 ng/L (0-15)
--- NOTE | 2022-08-18 09:43 | ECG_ITS ---
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 Measurements Intervals [place] Rate: 78 P: 28 ID: [id number] QRS: 16 QRSD: 115 T: 50 QT: 386 QTc: 441 Interpretive Statements SINUS RHYTHM WITH FIRST DEGREE AV BLOCK POSSIBLE ANTERIOR MYOCARDIAL INFARCTION , OF INDETERMINATE AGE [30 ms Q WAVE IN V3/V4, OR R < 0.2 mV IN V4] Compared to ECG 08/18/2022 07:19:17 Myocardial infarct finding now present T-wave abnormality no longer present Electronically Signed On 08-18-2022 22:35:05 CDT by Mohit Albarado M.D. [id number]
[2022-08-18] MEDS: heparin drip 25,000 UNIT/500 ML PREMIX 29 UNIT IV (09:55)
[2022-08-18] MEDS: heparin 5,000 unit/mL INJ 1 mL IV (10:03)
[2022-08-18 10:34] LABS: Add Urine Microscopic? NO; Charge for UA Resulting for Rev
[2022-08-18 10:38] LABS: Partial Thromboplastin Time 31.6 SECONDS (23.9-36.7)
[2022-08-18 10:41] LABS: Bilirubin Urine Neg (Negative); Blood Urine Neg (Negative); Glucose Urine UA Norm (Normal); Ketones Urine Negative (Negative); Leukocyte Esterase Urine Negative (Negative); Nitrate Urine Negative (Negative); Protein Urine Neg (Negative); Sulfosalicylic Acid Urine Negative (Negative); Urine Appearance Clear (CLEAR); Urine Color Yellow (Yellow); Urobilinogen Urine Norm (Negative); pH Urine 9 (5-7)
[2022-08-18 10:54] LABS: Troponin 5 2HR 95.32 ng/L (0-15)
[2022-08-18 10:56] LABS: Troponin 5 2HR Delta -7.68 ABS# (0-10)
--- NOTE | 2022-08-18 12:59 | P.HP_ITS ---
Providers/Chief Complaint Admitting Physician: Corbin Trujillo MD Primary Care Provider: Carlee Carreon DO Chief Complaint: CHEST PAIN History of Present Illness Eliazar Hogan is a 72 year old male with past medical history of hypertension diabetes, coronary artery disease, end-stage renal disease dialysis dependent, came in today with chief complaint of substernal chest pain, pressure-like, radiating to the jaws, started this morning.He also experienced 1 episode of nausea and vomiting this morning. CT abdomen and pelvis showed: No acute findings, x-ray chest: No acute findings, EKG: Sinus rhythm with first-degree AV block, no acute ST-T wave changes. Pertinent labs: WBC 12.1, H&H:11.4/35, plt : 232, serum sodium 135 serum potassium 4.3, BUN 18 serum creatinine 2.9. Lipase 29 Troponin trend:103-95- Patient was started on heparin drip in the ER, he also received aspirin 325 mg p.o. one-time dose as well as 1 inch topical Nitro, which relieved his chest pain. Review of Systems General: Reports: 10 or more systems reviewed and unremarkable except in HPI and below Const: Denies: fever(s), chills, body aches, change in appetite or diaphoresis Card: Denies: palpitations, edema, swelling of feet/ankles, dyspnea on exertion, orthopnea or leg pain with exertion Resp: Denies: dyspnea, productive cough, wheezing or pain on inspiration GI: Denies: abdominal pain, nausea, vomiting, diarrhea or constipation : Denies: flank pain or difficulty urinating Musc: Denies: back pain, extremity pain or extremity swelling Neuro: Denies: headache(s), difficulty walking or confusion Medications/Allergies Home Medications Medication Instructions Recorded Confirmed Last Taken Type acetaminophen 500 mg tablet 1,000 mg PO Q6H PRN Pain 05/05/19 08/18/22 12/05/21 History (Tylenol Extra Strength) pantoprazole 40 mg tablet,delayed 40 mg PO QAM 05/05/19 08/18/22 08/17/22 History release terazosin 10 mg capsule 10 mg PO BID 05/05/19 08/18/22 08/17/22 History furosemide 40 mg tablet 80 mg PO BID 04/24/20 08/18/22 08/17/22 History insulin aspart U-100 100 unit/mL See Rx Instructions .Route 08/22/20 08/18/22 12/04/21 Rx (3 mL) subcutaneous pen (Novolog .COMPLEX #15 mL FlexPen U-100 Insulin aspart) aspirin 81 mg tablet,delayed 81 mg PO QAM 09/01/20 08/18/22 08/17/22 History release clopidogrel 75 mg tablet 75 mg PO BEDTIME 09/01/20 08/18/22 08/17/22 History Diabetic Shoes #1 ea 09/13/20 08/18/22 12/05/21 Rx Diabetic Shoes #1 ea 10/25/20 08/18/22 12/05/21 Rx levothyroxine 25 mcg tablet 25 mcg PO QAM 11/09/20 08/18/22 08/17/22 History cetirizine 10 mg tablet (Zyrtec) 10 mg PO DAILY 11/14/20 08/18/22 08/17/22 History isosorbide mononitrate 60 mg 60 mg PO DAILY 11/14/20 08/18/22 08/17/22 History tablet,extended release 24 hr escitalopram oxalate 20 mg tablet 10 mg PO QAM 01/09/21 08/18/22 08/17/22 History (Lexapro) insulin detemir U-100 100 unit/mL 20 unit SUBCUT BEDTIME 03/27/21 08/18/22 08/17/22 History (3 mL) subcutaneous pen (Levemir FlexTouch U-100 Insulin) BIPAP and supplies #1 ea 04/09/21 08/18/22 12/05/21 Rx magnesium oxide 400 mg PO BEDTIME 07/31/21 08/18/22 08/17/22 History rosuvastatin 10 mg tablet (Crestor) 10 mg PO BEDTIME 09/20/21 08/18/22 08/17/22 History amlodipine 10 mg tablet 10 mg PO BEDTIME 09/29/21 08/18/22 08/17/22 History carvedilol 12.5 mg tablet 12.5 mg PO QAM 09/29/21 08/18/22 08/17/22 History hydralazine 10 mg tablet 10 mg PO QAM 09/29/21 08/18/22 08/17/22 History losartan 100 mg tablet 100 mg PO BEDTIME 09/29/21 08/18/2223 History nitroglycerin 0.4 mg sublingual 0.4 mg sublingual Q5M PRN Chest 09/29/21 08/18/22 09/29/21 History tablet (Nitrostat) Pain 2 tabs cholecalciferol (vitamin D3) 50 50 mcg PO DAILY 02/13/22 08/18/22 08/17/22 History mcg (2,000 unit) capsule omega 0-oul-dvx-fish oil 1,000 mg 1 cap PO BID 02/13/22 08/18/22 08/17/22 History (120 mg-180 mg) capsule (Fish Oil) sevelamer carbonate 800 mg tablet 800 mg PO TID 02/13/22 08/18/22 08/17/22 History allopurinol 100 mg tablet 100 mg PO DAILY 08/18/22 08/18/22 08/17/22 History folic acid 0.8 mg capsule 0.8 mg PO DAILY 08/18/22 08/18/22 08/17/22 History Allergies Allergy/AdvReac Type Severity Reaction Status Date / Time chicken derived Allergy Unknown Unknown Verified 07/30/22 07:50 morphine AdvReac Mild dizzy & Verified 07/30/22 07:50 nauseous PFSH Acute PFSH: Medical History Acute kidney injury superimposed on CKD Anemia CAD (coronary artery disease) Cardiac enzymes elevated Carotid stenosis, bilateral Chest pain Chronic back pain Chronic kidney disease Chronic kidney disease (CKD) stage G5/A1, glomerular filtration rate (GFR) less than or equal to 15 mL/min/1.73 square meter and albuminuria creatinine ratio less than 30 mg/g Congestive 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 CVA (cerebral vascular accident) Diabetes 1.5, 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 Dyslipidemia ESRD (end stage renal disease) Essential hypertension Hemodialysis access site with arteriovenous graft History of 2019 novel coronavirus disease (COVID-19) Hypothyroidism NSTEMI (non-ST elevated myocardial infarction) KAITYLNN (obstructive sleep apnea) Paget's disease Surgical History History of esophagogastroduodenoscopy (EGD) 10 yrs ago Hx of cholecystectomy Previous back surgery S/P angioplasty with stent S/P cataract extraction S/P hemodialysis catheter insertion Family History Mother CAD (coronary artery disease) Stroke Sister Hypertension Social History Smoking and tobacco status: never smoked Alcohol intake: never Substance/Drug Use: never Household members: spouse Marital status: service: Yes branch: [employer] Current occupational status: employed 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 Current gender identity: Male Vitals/I&O/Wt Last Vital Signs Pulse 79 08/18/22 10:10 Resp 18 08/18/22 08:15 BP 171/81 08/18/22 10:10 Pulse Ox 94 08/18/22 10:10 O2 Del Method Nasal Cannula 08/18/22 10:10 O2 Flow Rate 2 08/18/22 10:10 Weight last 48 hrs Weight 102 kg Physical Exam Const: COMMON NORMALS: patient oriented x3 HENMT: COMMON NORMALS: normocephalic, atraumatic, hearing grossly normal bilaterally and external ears normal Resp: COMMON NORMALS: normal respiratory effort, No retractions, No use of accessory muscles and clear to auscultation bilaterally EFFORT & INSPECTION: Yes symmetric chest movement AUSCULTATION: clear to auscultation bilaterally Cardio: COMMON NORMALS: regular rate, regular rhythm, S1 normal heart sound present, S2 normal heart sound present, No gallops present (Cardio), No murmurs present (Cardio), No rub (Cardio) and Peripheral pulses 2+ throughout RATE: regular rate RHYTHM: regular rhythm HEART SOUNDS: S1 normal heart sound present and S2 normal heart sound present PERIPHERAL PULSES: Peripheral pulses 2+ throughout GI: COMMON NORMALS: Normal to inspection, nondistended, normoactive bowel sounds present, Soft to palpation, non-tender, No hepatosplenomegaly present and no masses AUSCULTATION: Yes normoactive bowel sounds PALPATION: Yes Soft to palpation and Yes No hepatosplenomegaly present RECTAL EXAM: Yes deferred Extremity: COMMON NORMALS: no clubbing, cyanosis or edema and no pedal edema Neuro: COMMON NORMALS: patient oriented x3 Data 08/18/22 08:15 08/18/22 08:15 A&P Assessment and plan (1) Chest pain: (2) Non-ST elevated myocardial infarction (non-STEMI): (3) Chronic kidney disease (CKD) stage G5/A1, glomerular filtration rate (GFR) less than or equal to 15 mL/min/1.73 square meter and albuminuria creatinine ratio less than 30 mg/g: (4) CAD (coronary artery disease): Qualifiers: Associated angina: without angina Coronary Disease-Associated Artery/Lesion type: [place] artery [place] vs. transplanted heart: [place] heart Qualified Code(s): I25.10 - Atherosclerotic heart disease of [place] coronary artery without angina pectoris (5) KAITLYNN (obstructive sleep apnea): Plan 72 year old male with past medical history of hypertension,gout, diabetes, coronary artery disease, end-stage renal disease dialysis dependent , came in today with chief complaint of substernal chest pain, pressure-like, radiating to the jaws, started this morning.He also experienced 1 episode of nausea and vomiting this morning. Assessment: NSTEMI: 2D echo: Most recent nuclear stress test done last year failed to show any ischemia. CT abdomen and pelvis showed: No acute findings, x-ray chest: No acute findings EKG: Sinus rhythm with first-degree AV block, no acute ST-T wave changes. Troponin Trend:773-40-2-hour troponin is pending Continue heparin drip for now, along with aspirin Plavix statin beta-artem Cardiology has been consulted N.p.o. after midnight for possible coronary angiogram History of hypertension: Continue amlodipine, carvedilol, hydralazine, losartan End-stage renal disease dialysis dependent Friday Nephrology consult for routine hemodialysis Continue Lasix 80 p.o. twice daily History of diabetes: Continue Lantus,ssi, monitor fingerstick glucose History of coronary artery disease: Continue aspirin Plavix, statin beta-artem History of gout: Continue allopurinol CODE STATUS: Full code Attestations Medical Necessity Statement*: Patient is in hospital management NSTEMI. Anticipated length of stay greater 2 midnights Coding Level of Care Code Acute Code for [facility] Diagnoses Chest pain R07.9 Non-ST elevated myocardial infarction (non-STEMI) I21.4 Chronic kidney disease (CKD) stage G5/A1, glomerular filtration rate (GFR) less than or equal to 15 mL/min/1.73 square meter and albuminuria creatinine ratio less than 30 mg/g N18.5 CAD (coronary artery disease) I25.10 Associated angina: without angina Coronary Disease-Associated Artery/Lesion type: [place] artery [place] vs. transplanted heart: [place] heart KAITLYNN (obstructive sleep apnea) G47.33
--- NOTE | 2022-08-18 13:19 | ECG_ITS ---
[facility] Test Date: 2022-08-18 Pat Name: Eliazar Hogan Department: Room: 111 Gender: Male [employer]: : 1950 Requested By: Parish Matos Order Number: [id number] Flor MD: Mohit Albarado M.D. Measurements Intervals Ralls Rate: 73 P: 93 NV: 266 QRS: -14 QRSD: 106 T: -29 QT: 403 QTc: 446 Interpretive Statements SINUS RHYTHM WITH FIRST DEGREE AV BLOCK POSSIBLE ANTERIOR MYOCARDIAL INFARCTION , OF INDETERMINATE AGE [30 ms Q WAVE IN V3/V4, OR R < 0.2 mV IN V4] Compared to ECG 08/18/2022 09:43:08 No significant changes Electronically Signed On 08-18-2022 22:37:57 CDT by Mohit Albarado M.D. [email or web address]
--- NOTE | 2022-08-18 13:27 | USCV_ITS ---
Eliazar Hogan Age: 72 Gender: M : 1950 Exam Date: 08/18/2022 14:23 Ordering Phys: Corbin Trujillo MD Technologist: Jefe Thomas Exam Location[place] [facility] [place] Indication: chest pain BP: 182 / 123 HR: 72 Rhythm: Sinus Technical Quality: Adequate MEASUREMENTS (Male / Female) Normal Values 2D ECHO LV Diastolic Diameter PLAX 4.4 cm 4.2 - 5.9 / 3.9 - 5.3 cm LV Systolic Diameter PLAX 2.9 cm IVS Diastolic Thickness 1.5 cm 0.6 - 1.0 / 0.6 - 0.9 cm IVS Systolic Thickness 2.0 cm LVPW Diastolic Thickness 1.1 cm 0.6 - 1.0 / 0.6 - 0.9 cm LVPW Systolic Thickness 1.3 cm LVOT Diameter 2.2 cm LV Ejection Fraction 2D Teich 62.9 % LV Ejection Fraction MOD 2C 74.7 % LV Ejection Fraction 2C AL 74.0 % LA Diameter 5.5 cm Aorta at Sinotubular Diameter 2.7 cm M-MODE Aortic Annulus Diameter 3.9 cm LA Ao Ratio MM 1.4 MV E Point Septal Separation 1.1 cm DOPPLER AV Peak Velocity 207.7 cm/s LVOT Peak Velocity 114.0 cm/s AV Area Cont Eq vti 2.1 cm squared AV Area Cont Eq pk 2.0 cm squared MV Area PHT 5.0 cm squared Mitral E to A Ratio 1.0 MV E' Velocity 75.0 cm/s Mitral E to MV E' Ratio 17.4 Mitral E to LV E' Lateral Ratio 16.6 Mitral E to LV E' Septal Ratio 18.3 TR Peak Velocity 217.0 cm/s TR Peak Gradient 18.8 mmHg TV Peak E Velocity 97.0 cm/s Right Atrial Pressure 3.0 mmHg Pulmonary Artery Systolic Pressu 21.8 mmHg RV Acceleration Time 0.1 s FINDINGS Left Ventricle Normal left ventricular size and systolic function, EF 73 %. No regional wall motion abnormalities. Grade I/IV diastolic dysfunction (abnormal relaxation filling pattern), normal to mildly elevated filling pressures. Right Ventricle The right ventricle is normal in size and function. Right Atrium Normal right atrial size. Left Atrium Mildly increased left atrial size. Mitral Valve Thickened mitral valve. Aortic Valve Thickened aortic valve. Features of aortic valve sclerosis Tricuspid Valve No gross abnormalities noted Pulmonic Valve Pulmonic valve not well visualized. Pericardium Normal pericardium without effusion. Aorta Normal ascending aorta dimension. IVC Inferior vena cava not visualized. CONCLUSIONS Normal left ventricular size and systolic function, EF 73 %. No regional wall motion abnormalities. Grade I/IV diastolic dysfunction (abnormal relaxation filling pattern), normal to mildly elevated filling pressures. Mildly increased left atrial size. Thickened mitral valve. Thickened aortic valve. Features of aortic valve sclerosis. There is no pericardial effusion. There are no intracardiac masses. No similar previous studies are available for comparison Dr Mohit Albarado MD FAC (Electronically Signed) Final Date: 18 August 2022 23:30 S
[2022-08-18] MEDS: hyDRALAzine 50 mg Tablet PO (14:00)
[2022-08-18 15:10] LABS: Troponin 5 6HR 97.59 ng/L (0-15)
[2022-08-18 15:11] LABS: Troponin 5 6HR Delta -5.41 ng/L (0-12)
[2022-08-18 16:40] LABS: Partial Thromboplastin Time 66.2 SECONDS (23.9-36.7)
[2022-08-18 16:43] LABS: Glucose Point of Care 201 mg/dL (70-110)
[2022-08-18] MEDS: FUROsemide 40 mg Tablet 80 MG PO (17:18)
[2022-08-18] MEDS: insulin lispro 100 unit/1 mL SUBCUT ×2 (17:18→21:55)
[2022-08-18] MEDS: sevelamer 800 mg Tablet PO (17:18)
[2022-08-18] MEDS: terazosin 5 mg Capsule 10 MG PO (18:39)
--- NOTE | 2022-08-18 20:30 | P.CONIM_ITS ---
Providers/Reason For Consult Consulting Physician/Specialty*: TONYA Albarado MD/cardiology Reason for Consult*: Patient with unstable anginal symptoms history of coronary artery disease and multiple PCI's Requesting Physician: Dr. Trujillo Attending Physician: Corbin Trujillo MD Primary Care Provider: Carlee Carreon DO History of Present Illness History of Present Illness Eliazar Hogan is a 72 year old male with a history of atherosclerotic heart disease and multiple PCI's, he is admitted to hospital through the emergency r oom where he presented with a prolonged episode of chest pain. He was found to have elevated troponin T. Cardiology consult is requested for further cardiac evaluation recommendations. This patient is known to have coronary disease and had multiple PCI's in the past. His first PCI was in 2014. According the patient, he had 2 stent placement at that time. Most recently in October 2020, he presented with chest pain and features of non-ST elevation myocardial infarction. He had cardiac radiation followed by multiple stent placements in the left and descending artery and right coronary artery. Details are as mentioned below. Apparently the patient has been doing okay up until this morning when he woke up around 130 with nausea and vomiting. He had multiple bouts of vomiting. This was followed by just dry heaves. Around 5:30 in the morning, he took some Pepto-Bismol and tried to lie down. Around this time, he started having chest pain. The pain was on the left side of the chest, radiated to the left arm, to the left shoulder and to the left side of the neck. He had some associated shortness of breath and nausea. He may have waited around for 10 minutes or so. He did not have any sublingual nitroglycerin available at home. At this point he called the ambulance and was brought to the emergency room. In the emergency room, he was placed on Nitropaste on the chest wall. His chest pain gradually started disappearing. The chest pain might have lasted for a total of an hour or so. The intensity of the pain was around 10/10 at home. It came down to around 2/10 in the emergency room. Since then, he has been having few episodes of chest pain/tightness. Currently at the time of my examination, patient has some chest discomfort but does not seem to which concerned about this. He has no fever, chills or cough. Patient is diagnosed with end-stage renal disease and is on hemodialysis 3 times a week for the last 2 years. He denies any fever, chills or cough. No other specific complaints. He denies any smoking abuse or alcohol abuse. No significant family history for premature atherosclerotic heart disease. Patient is known to have high blood pressure, dyslipidemia, type 2 diabetes, hypothyroidism and end-stage renal disease. Review of Systems Narrative: CONSTITUTIONAL: No fever or chills. EYES: No blurring of vision or other visual disturbances lately. ENT: No hoarseness of voice, auditory disturbances or sore throat. CARDIOVASCULAR: As mentioned above. RESPIRATORY: No significant cough. GASTROINTESTINAL: No hematemesis or melena. GENITOURINARY: On hemodialysis for end-stage renal disease INTEGUMENTARY: No skin rashes or history of skin cancer. NEURO: No transient ischemic attacks or amaurosis. PSYCHIATRIC: No history of psychosis or major depression. HEMATOLOGIC: No bleeding disorders or significant anemia. ENDOCRINE: History of type 2 diabetes and hypothyroidism MUSCULOSKELETAL: No recent joint pain or swelling. ALLERGY/IMMUNOLOGY: As mentioned above. Medications/Allergies Home Medications Medication Instructions Recorded Confirmed Last Taken Type acetaminophen 500 mg tablet 1,000 mg PO Q6H PRN Pain 05/05/19 08/18/22 12/05/21 History (Tylenol Extra Strength) pantoprazole 40 mg tablet,delayed 40 mg PO QAM 05/05/19 08/18/22 08/17/22 History release terazosin 10 mg capsule 10 mg PO BID 05/05/19 08/18/22 08/17/22 History furosemide 40 mg tablet 80 mg PO BID 04/24/20 08/18/22 08/17/22 History insulin aspart U-100 100 unit/mL See Rx Instructions .Route 08/22/20 08/18/22 12/04/21 Rx (3 mL) subcutaneous pen (Novolog .COMPLEX #15 mL FlexPen U-100 Insulin aspart) aspirin 81 mg tablet,delayed 81 mg PO QAM 09/01/20 08/18/22 08/17/22 History release clopidogrel 75 mg tablet 75 mg PO BEDTIME 09/01/20 08/18/22 08/17/22 History Diabetic Shoes #1 ea 09/13/20 08/18/22 12/05/21 Rx Diabetic Shoes #1 ea 10/25/20 08/18/22 12/05/21 Rx levothyroxine 25 mcg tablet 25 mcg PO QAM 11/09/20 08/18/22 08/17/22 History cetirizine 10 mg tablet (Zyrtec) 10 mg PO DAILY 11/14/20 08/18/22 08/17/22 History isosorbide mononitrate 60 mg 60 mg PO DAILY 11/14/20 08/18/22 08/17/22 History tablet,extended release 24 hr escitalopram oxalate 20 mg tablet 10 mg PO QAM 01/09/21 08/18/22 08/17/22 History (Lexapro) insulin detemir U-100 100 unit/mL 20 unit SUBCUT BEDTIME 03/27/21 08/18/22 08/17/22 History (3 mL) subcutaneous pen (Levemir FlexTouch U-100 Insulin) BIPAP and supplies #1 ea 04/09/21 08/18/22 12/05/21 Rx magnesium oxide 400 mg PO BEDTIME 07/31/21 08/18/22 08/17/22 History rosuvastatin 10 mg tablet (Crestor) 10 mg PO BEDTIME 09/20/21 08/18/22 08/17/22 History amlodipine 10 mg tablet 10 mg PO BEDTIME 09/29/21 08/18/22 08/17/22 History carvedilol 12.5 mg tablet 12.5 mg PO QAM 09/29/21 08/18/22 08/17/22 History hydralazine 10 mg tablet 10 mg PO QAM 09/29/21 08/18/22 08/17/22 History losartan 100 mg tablet 100 mg PO BEDTIME 09/29/21 08/18/22 08/17/22 History nitroglycerin 0.4 mg sublingual 0.4 mg sublingual Q5M PRN Chest 09/29/21 08/18/22 09/29/21 History tablet (Nitrostat) Pain 2 tabs cholecalciferol (vitamin D3) 50 50 mcg PO DAILY 02/13/22 08/18/22 08/17/22 History mcg (2,000 unit) capsule omega 5-gla-qtf-fish oil 1,000 mg 1 cap PO BID 02/13/22 08/18/22 08/17/22 History (120 mg-180 mg) capsule (Fish Oil) sevelamer carbonate 800 mg tablet 800 mg PO TID 02/13/22 08/18/22 08/17/22 History allopurinol 100 mg tablet 100 mg PO DAILY 08/18/22 08/18/22 08/17/22 History folic acid 0.8 mg capsule 0.8 mg PO DAILY 08/18/22 08/18/22 08/17/22 History Allergies Allergy/AdvReac Type Severity Reaction Status Date / Time chicken derived Allergy Unknown Unknown Verified 07/30/22 07:50 morphine AdvReac Mild dizzy & Verified 07/30/22 07:50 nauseous Current Medications Generic Name Dose Route Start Last Admin Trade Name Freq PRN Reason Stop Dose Admin Furosemide 80 mg 08/18/22 18:00 08/18/22 17:18 Furosemide 40 Mg Tablet PO 80 mg BID SAYRA Administration Heparin Sodium (Porcine) 0 unit 08/18/22 09:24 08/18/22 10:03 Heparin 5,000 Unit/Ml Inj 1 Ml IV 5,300 unit PRN PRN Administration Heparin weight-base protocol Protocol Heparin Sodium/Sodium Chloride 25,000 unit in 500 mls @ 0 mls/hr 08/18/22 09:30 08/18/22 09:55 Heparin Drip IV 14.22 unit/kg/hr .Q0M SAYRA 29 mls/hr Administration Protocol Per Protocol Insulin Human Lispro 0 unit 08/18/22 18:00 08/18/22 17:18 Insulin Lispro 100 Unit/1 Ml SUBCUT 4 unit WM&BEDTIME SAYRA Administration Protocol Non-Formulary Medication 1 cap 08/18/22 18:00 08/18/22 18:14 [place] 4-Ahc-Uxw-Fish Oil [Fish Oil] PO Not Given BID SAYRA Sevelamer Carbonate 800 mg 08/18/22 15:00 08/18/22 17:18 Sevelamer 800 Mg Tablet PO 800 mg TID SAYRA Administration Terazosin HCl 10 mg 08/18/22 18:00 08/18/22 18:39 Terazosin 5 Mg Capsule PO 10 mg BID SAYRA Administration PFSH Acute PFSH: Medical History Acute kidney injury superimposed on CKD Anemia CAD (coronary artery disease) Cardiac enzymes elevated Carotid stenosis, bilateral Chest pain Chronic back pain Chronic kidney disease Chronic kidney disease (CKD) stage G5/A1, glomerular filtration rate (GFR) less than or equal to 15 mL/min/1.73 square meter and albuminuria creatinine ratio less than 30 mg/g Congestive 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 CVA (cerebral vascular accident) Diabetes 1.5, 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 Dyslipidemia ESRD (end stage renal disease) Essential hypertension Hemodialysis access site with arteriovenous graft History of 2019 novel coronavirus disease (COVID-19) Hypothyroidism NSTEMI (non-ST elevated myocardial infarction) KAITLYNN (obstructive sleep apnea) Paget's disease Surgical History History of esophagogastroduodenoscopy (EGD) 10 yrs ago Hx of cholecystectomy Previous back surgery S/P angioplasty with stent S/P cataract extraction S/P hemodialysis catheter insertion Family History Mother CAD (coronary artery disease) Stroke Sister Hypertension Social History Smoking and tobacco status: never smoked Alcohol intake: never Substance/Drug Use: never Household members: spouse Marital status: service: Yes branch: [employer] Current occupational status: employed Current occupation: [employer] Current gender identity: Male Vitals/I&O/Wt Last Vital Signs Temp 98.3 F 08/18/22 15:42 Pulse 73 08/18/22 15:42 Resp 18 08/18/22 15:42 BP 181/81 08/18/22 15:42 Pulse Ox 92 08/18/22 15:42 O2 Del Method Nasal Cannula 08/18/22 15:42 O2 Flow Rate 2 08/18/22 10:10 08/18/22 08/18/22 08/18/22 06:59 14:59 22:59 Intake Total 240 / 240 Balance 240 / 240 Weight last 48 hrs Weight 224 lb 13.944 oz Physical Exam Narrative: GENERAL: The patient is alert and oriented times three. Not in any acute distress. Moderately obese HEENT: No significant pallor, icterus or lymphadenopathy.Oral cavity: There are no mucous membrane lesions. NECK: Trachea appears to be central. No masses noted. No JVD or thyromegaly appreciated. RESPIRATORY: Chest is symmetrical. No intercostals muscle retraction or any accessory muscle activation. There is no chest wall tenderness. Breath sounds are heard bilaterally. No rales or rhonchi heard. No evidence of any consolidation. BREASTS: Deferred. HEART: The heart sounds are normal. No S3 or S4. Short systolic murmur in the lower sternal border. No diastolic murmurs. No pericardial rub ABDOMEN: No vessel pulsations or distention. No tenderness. No organomegaly appreciated. Bowel sounds are normally heard. : Deferred. RECTAL: Deferred. LYMPHATIC: No lymphadenopathy noted in the neck. EXTREMITIES: No edema or cyanosis. No clubbing. Has AV fistula for dialysis normal in the left arm. MUSCULOSKELETAL: No acute joint deformities or swelling SKIN: There are no significant rashes or ecchymosis NEUROPSYCHIATRIC: The patient is alert and oriented x3. Appears to be in a good mood. No tremors or rigidity noted. Data 08/19/22 03:21 08/19/22 03:21 Other Labs: Laboratory Last Values WBC 12.1 10^3/uL (4.0-10.0) H 08/18/22 08:15 RBC 3.94 10^6/uL (4.1-5.3) L 08/18/22 08:15 Hgb 11.4 g/dL (11.7-16.6) L 08/18/22 08:15 Hct 35.5 % (42.0-52.0) L 08/18/22 08:15 MCV 90.1 fl (80-94) 08/18/22 08:15 MCH 28.9 pg (28.0-34.0) 08/18/22 08:15 MCHC 32.1 g/dL (30.0-36.0) 08/18/22 08:15 RDW 13.7 % (12.1-15.1) 08/18/22 08:15 Plt Count 232 10^3/cmm (130-400) 08/18/22 08:15 MPV 8.6 fL (7.4-10.4) 08/18/22 08:15 Neut % (Auto) 83.9 % 08/18/22 08:15 Lymph % (Auto) 8.4 % 08/18/22 08:15 [place] % (Auto) 5.5 % 08/18/22 08:15 Eos % (Auto) 1.3 % 08/18/22 08:15 Baso % (Auto) 0.6 % 08/18/22 08:15 Neut # (Auto) 10.14 10^3/uL (1.8-7.7) H 08/18/22 08:15 Lymph # (Auto) 1.0 10^3/uL (0.8-4.8) 08/18/22 08:15 [place] # (Auto) 0.7 10^3/uL (0.2-0.9) 08/18/22 08:15 Eos # (Auto) 0.2 10^3/uL (0.0-0.8) 08/18/22 08:15 Baso # (Auto) 0.1 10^3/uL (0.0-0.1) 08/18/22 08:15 Nucleated RBC % (auto) 0 % 08/18/22 08:15 Nucleated RBCs # 0.0 /100WBC 08/18/22 08:15 APTT 66.2 SECONDS (23.9-36.7) H D 08/18/22 15:59 Sodium 135 mmol/L (136-145) L 08/18/22 08:15 Potassium 4.3 mmol/L (3.5-5.1) 08/18/22 08:15 Chloride 91 mmol/L (98-107) L 08/18/22 08:15 Carbon Dioxide 31 mmol/L (22-29) H 08/18/22 08:15 Anion Gap 17.3 (5-19) 08/18/22 08:15 BUN 18 mg/dL (8-23) 08/18/22 08:15 Creatinine 2.9 mg/dL (0.7-1.2) H 08/18/22 08:15 GFR Calculation Not Reportable 08/18/22 08:15 Glucose 209 mg/dL (65-115) H 08/18/22 08:15 POC Glucose 201 mg/dL (70-110) H 08/18/22 16:29 Calculated Osmolality 288 mOsm/kg (285-295) 08/18/22 08:15 Calcium 10.2 mg/dL (8.5-10.5) 08/18/22 08:15 Total Bilirubin 0.4 mg/dL (0.15-1.2) 08/18/22 08:15 AST 13 U/L (0-40) 08/18/22 08:15 ALT 12 U/L (0-41) 08/18/22 08:15 Alkaline Phosphatase 203 U/L (40-130) H 08/18/22 08:15 Troponin T Baseline 103 ng/L (0-15) H* 08/18/22 08:15 Troponin T 120 Minute 95.32 ng/L (0-15) H 08/18/22 10:25 Delta Troponin T -7.68 ABS# (0-10) L 08/18/22 10:25 Troponin T Hi Sens 6Hr 97.59 ng/L (0-15) H 08/18/22 14:43 Troponin T Hi Sens 6Hr Delta -5.41 ng/L (0-12) L 08/18/22 14:43 Total Protein 7.8 g/dL (6.6-8.7) 08/18/22 08:15 Albumin 4.4 g/dL (3.5-5.2) 08/18/22 08:15 Globulin 3.4 g/dL (1.3-4.6) 08/18/22 08:15 Lipase 29 U/L (13-60) 08/18/22 08:15 Urine Color Yellow (Yellow) 08/18/22 10:20 Urine Appearance Clear (CLEAR) 08/18/22 10:20 Urine pH 9 (5-7) H 08/18/22 10:20 Ur Specific [place] 1.010 (1.005-1.030) 08/18/22 10:20 Urine Protein Neg (Negative) 08/18/22 10:20 Urine Glucose (UA) Norm (Normal) 08/18/22 10:20 Urine Ketones Negative (Negative) 08/18/22 10:20 Urine Blood Neg (Negative) 08/18/22 10:20 Urine Nitrate Negative (Negative) 08/18/22 10:20 Urine Bilirubin Neg (Negative) 08/18/22 10:20 Prot Sulfosalicylic Acd Negative (Negative) 08/18/22 10:20 Urine Urobilinogen Norm mg/dL (Negative) 08/18/22 10:20 Ur Leukocyte Esterase Negative (Negative) 08/18/22 10:20 EKG 1: My Interpretation: Normal sinus rhythm with first-degree AV block. Diffuse nonspecific T wave changes. Poor R wave progression. Other data: Myocardial perfusion imaging on 10/01/2021 1? Normal myocardial perfusion imaging with no evidence of ischemia. ?2.? LV systolic function is normal Echocardiogram in September 2021 ?Normal left ventricular size and systolic function, EF 66 %. No ?regional wall motion abnormalities. Moderate left ventricular ?hypertrophy. Grade I/IV diastolic dysfunction (abnormal ?relaxation filling pattern), normal to mildly elevated filling ?pressures.? ?Mild biatrial enlargement.? ?Thickened mitral valve. Moderate mitral annular calcification. ?Thickened pulmonic valve. ?There is no pericardial effusion. ?Comparison with the previous study is difficult because of the ?difference in the technical quality. ?Technically difficult study because of the poor apical windows. cardiac catheterization on 11/10/2020 * Left Main has minor luminal irregularities. ? * Circumflex has diffuse mild to moderate luminal irregularities. ? * LAD stent is patent. However at the distal edge of stent, there was haziness noted suspicious for dissection. Distal Left Anterior Descending to Distal Left Anterior Descending: obstructive? 70% stenosis, VARUN: 3 flow. ? * INDICATION: Patient had PCI of mid to distal LAD earlier today.? He started having chest discomfort after that.? EKG does not show ST elevations however given significant chest pain, plan to perform coronary angiogram again. ? * Proximal Right Coronary Artery to Mid Right Coronary Artery: severe? 90% stenosis, VARUN: 0 flow. ? * Mid Right Coronary Artery: severe? 90% stenosis, VARUN: 0 flow. ? * Coronary angiography shows left dominance. PCI Status: ? ? Urgent PCI Indication: ? ? NSTE - ACS Interventional Findings ? * Procedure Detail: Left main artery was engaged with XB 3.5 guide catheter. 0.014 run-through guidewire was used to cross into distal LAD. We placed a 2.5 x 15 mm resolute [place] drug-eluting stent. The pinched diagonal artery at prior stent underwent wiring attempt however wire could not be crossed into the Diagonal artery.? Patient's chest pain resolved at this time. Guidewire and guide catheter were removed. We then turned attention to the RCA.? His RCA was engaged with a JR4 guide catheter.? Run-through guidewire was used to cross the stenosis and was put in distal vessel.? We predilated proximal to mid RCA with 2.25 x 8 mm semicompliant balloon. This was followed by placement of 2.5 x 18 mm resolute [place] drug-eluting stent. A second 2.25 x 12 mm resolute [place] stent was placed at the distal edge of the first stent. At this time final angiogram was performed that showed excellent stent expansion, VARUN-3 flow and no residual stenosis.? Guidewire and guide catheter were removed. Femoral sheath was sutured in place for removal later.. ? * Distal Left Anterior Descending to Distal Left Anterior Descending:? 70% stenosis treated with a MDT R TIFF 2.5X15 ROBYN. 0% residual stenosis, VARUN: 3 flow. ? * Proximal Right Coronary Artery to Mid Right Coronary Artery:? 90% stenosis treated with a AB TREK 2.25X8 RX BALLOON, and MDT R TIFF 2.5X18 ROBYN. 0% residual stenosis, VARUN: 3 flow. ? * Mid Right Coronary Artery:? 90% stenosis treated with a MDT R TIFF 2.25X12 ROBYN. 0% residual stenosis, VARUN: 3 flow. Conclusions ? 1. There is severe? coronary artery disease with two vessel disease. (Distal edge dissection from prior stenting, treated with placement of drug eluting stent. ? 2. Distal Left Anterior Descending to Distal Left Anterior Descending was treated with a Drug Eluting Stent. ? 3. Proximal Right Coronary Artery to Mid Right Coronary Artery was treated with a Balloon, and Drug Eluting Stent. ? 4. Mid Right Coronary Artery was treated with a Drug Eluting Stent. A&P Assessment and plan (1) Atherosclerotic heart disease of [place] coronary artery with unstable angina pectoris: The patient's clinical features are suggestive of an unstable angina. In view of his multiple PCI's in the past, is very possible that he may be developing some new lesions. He has a chronically elevated troponin T with no significant delta. He had an unremarkable Myocardial perfusion imaging in last September. A repeat echocardiac might be appropriate to further evaluate his coronary status and decide on further management. He may be treated with IV heparin, topical nitrates, and all the other current medications. (2) Benign essential hypertension with target blood pressure below 140/90: The blood pressure is of stage II. The antihypertensive medications need to be optimized. (3) T2DM (type 2 diabetes mellitus): Aggressive management of the diabetes would be appropriate. (4) Hypothyroidism: Continue on the current management. Qualifiers: Hypothyroidism type: acquired Qualified Code(s): E03.9 - Hypothyroidism, unspecified (5) Chronic kidney disease (CKD) stage G5/A1, glomerular filtration rate (GFR) less than or equal to 15 mL/min/1.73 square meter and albuminuria creatinine ratio less than 30 mg/g: Patient is on hemodialysis. (6) Dyslipidemia: Continue on the current medications (7) KAITLYNN (obstructive sleep apnea): May continue on the current management Plan Patient had an echocardiogram today. I will be reviewing the study. Based on the clinical progress and the results of the above, further recommendations will be made. Thank you for the opportunity to evaluate this patient and make these recommendations Consult Attestations Medical Necessity Statement: Patient requires continued hospital stay for close monitoring and further manag ement Coding Level of Care Code 33871 Diagnoses Atherosclerotic heart disease of [place] coronary artery with unstable angina pectoris I25.110 Benign essential hypertension with target blood pressure below 140/90 I10 T2DM (type 2 diabetes mellitus) E11.9 Hypothyroidism E03.9 Hypothyroidism type: acquired Chronic kidney disease (CKD) stage G5/A1, glomerular filtration rate (GFR) less than or equal to 15 mL/min/1.73 square meter and albuminuria creatinine ratio less than 30 mg/g N18.5 Dyslipidemia E78.5 KAITLYNN (obstructive sleep apnea) G47.33 Time Spent (min) 70
[2022-08-18 21:02] LABS: Glucose Point of Care 214 mg/dL (70-110)
[2022-08-18] MEDS: amlodipine 10 mg Tablet PO (21:02)
[2022-08-18] MEDS: atorvastatin 40 mg Tablet PO (21:02)
[2022-08-18] MEDS: magnesium oxide 400 mg tablet PO (21:02)
[2022-08-18] MEDS: clopidogrel 75 mg Tablet PO (21:02)
[2022-08-18] MEDS: losartan 50 mg Tablet 100 MG PO (21:02)
[2022-08-18 21:50] LABS: Partial Thromboplastin Time 67.4 SECONDS (23.9-36.7)
[2022-08-18] MEDS: insulin glargine 100 units/1 mL 20 UNIT SUBCUT (21:54)
[2022-08-19] VITALS (60 sets, daily range): BP systolic 131–186; BP diastolic 63–86; PULSE 57–74; RESP 0–20; TEMP 36.4–37.1; O2SAT 90–95
[2022-08-19 04:05] LABS: Basophils # 0.1 10^3/uL (0.0-0.1); Basophils % 0.7 %; Eosinophils # 0.4 10^3/uL (0.0-0.8); Eosinophils % 4.2 %; Hematocrit 30.4 % (42.0-52.0); Hemoglobin 9.7 g/dL (11.7-16.6); Lymphocytes # 1.7 10^3/uL (0.8-4.8); Lymphocytes % 19.4 %; Mean Corpuscular HGB Conc 31.9 g/dL (30.0-36.0); Mean Corpuscular Hemoglobin 29.6 pg (28.0-34.0); Mean Corpuscular Volume 92.7 fl (80-94); Mean Platelet Volume 9.1 fL (7.4-10.4); Monocytes # 0.7 10^3/uL (0.2-0.9); Neutrophils # 6.04 10^3/uL (1.8-7.7); Neutrophils % 67.3 %; Nucleated Red Blood Cells % 0 %; Platelet Count 204 10^3/cmm (130-400); Red Blood Count 3.28 10^6/uL (4.1-5.3); Red Cell Distribution Width 13.9 % (12.1-15.1)
[2022-08-19 04:13] LABS: Partial Thromboplastin Time 45.8 SECONDS (23.9-36.7)
[2022-08-19 04:22] LABS: Alanine Aminotransferase 10 U/L (0-41); Albumin Level 3.5 g/dL (3.5-5.2); Alkaline Phosphatase 166 U/L (40-130); Anion Gap 15.2 (5-19); Aspartate Amino Transferase 11 U/L (0-40); Blood Urea Nitrogen 26 mg/dL (8-23); Calcium 9.2 mg/dL (8.5-10.5); Carbon Dioxide 30 mmol/L (22-29); Chloride 98 mmol/L (98-107); Globulin 2.9 g/dL (1.3-4.6); Glucose 171 mg/dL (65-115); Magnesium 2.2 mg/dL (1.7-2.3); Osmolality Calculated 297 mOsm/kg (285-295); Potassium 4.2 mmol/L (3.5-5.1); Sodium 139 mmol/L (136-145); Total Bilirubin 0.3 mg/dL (0.15-1.2); Total Protein 6.4 g/dL (6.6-8.7)
[2022-08-19] MEDS: nitroglycerin 1 gm/inch oint Pkt 1 INCH TOPICAL ×4 (05:35→21:18)
[2022-08-19] MEDS: aspirin 81 mg EC Tablet PO (05:49)
[2022-08-19] MEDS: levothyroxine 25 mcg Tablet PO (05:49)
[2022-08-19] MEDS: escitalopram 10 mg Tablet PO (05:49)
[2022-08-19] MEDS: hyDRALAzine 10 mg Tablet PO ×4 (05:49→21:18)
[2022-08-19] MEDS: pantoprazole DR 40 mg Tablet PO (05:49)
[2022-08-19] MEDS: carvedilol 12.5 mg Tablet PO (05:49)
[2022-08-19] MEDS: heparin 5,000 unit/mL INJ 1 mL IV (05:50)
[2022-08-19 06:32] LABS: Glucose Point of Care 121 mg/dL (70-110)
--- NOTE | 2022-08-19 07:28 | PM.PN ---
Subjective Subjective: Patient underwent coronary angiogram today that did not reveal significant CAD. Prior stents were patent. He has some mild to moderate luminal irregularities. Doing well. Vitals/I&O/Wt Last Vital Signs Temp 97.8 F 08/19/22 04:00 Pulse 64 08/19/22 06:00 Resp 18 08/19/22 04:00 BP 145/72 08/19/22 04:00 Pulse Ox 93 08/19/22 04:00 O2 Del Method Room Air 08/19/22 00:00 O2 Flow Rate 2 08/18/22 20:30 08/18/22 08/19/22 08/19/22 22:59 06:59 14:59 Intake Total 360 / 360 620 / 980 Balance 360 / 360 620 / 980 Weight last 48 hrs Weight 0 oz Weight 224 lb 13.944 oz Physical Exam Narrative: GENERAL: Patient is alert, awake and oriented x3. [] NECK: No jugular vein distension. [] HEENT: No cyanosis. No icterus. No pallor. [] HEART: Regular S1 and S2. No murmur, rub or gallop. [] LUNGS: Clear to auscultate bilaterally. [] CENTRAL NERVOUS SYSTEM: Grossly nonfocal. [] EXTREMITIES: Lower extremities with 1+ edema bilaterally. Pulses palpable in the lower extremities, both dorsalis pedis and posterior tibial. [] Data 08/20/22 03:38 08/20/22 03:38 A&P Assessment and plan (1) Atherosclerotic heart disease of [place] coronary artery with unstable angina pectoris: Coronary angiogram does not reveal obstructive CAD. Has mild to moderate luminal irregularities. Aggressive risk factor modification. Continue aspirin and Plavix. Can uptitrate Imdur (2) Benign essential hypertension with target blood pressure below 140/90: The blood pressure is of stage II. The antihypertensive medications need to be optimized. (3) T2DM (type 2 diabetes mellitus): Aggressive management of the diabetes would be appropriate. (4) Hypothyroidism: Continue on the current management. Qualifiers: Hypothyroidism type: acquired Qualified Code(s): E03.9 - Hypothyroidism, unspecified (5) Chronic kidney disease (CKD) stage G5/A1, glomerular filtration rate (GFR) less than or equal to 15 mL/min/1.73 square meter and albuminuria creatinine ratio less than 30 mg/g: Patient is on hemodialysis. (6) Dyslipidemia: Continue on the current medications (7) KAITLYNN (obstructive sleep apnea): May continue on the current management Plan Aggressive medical management. Patient can be discharged home tomorrow. Will need dialysis prior. Attestations Medical Necessity Statement*: Care expected to cross 2 midnights. Coding Level of Care Code Acute Code for Chg Fwd Diagnoses Atherosclerotic heart disease of [place] coronary artery with unstable angina pectoris I25.110 Benign essential hypertension with target blood pressure below 140/90 I10 T2DM (type 2 diabetes mellitus) E11.9 Hypothyroidism E03.9 Hypothyroidism type: acquired Chronic kidney disease (CKD) stage G5/A1, glomerular filtration rate (GFR) less than or equal to 15 mL/min/1.73 square meter and albuminuria creatinine ratio less than 30 mg/g N18.5 Dyslipidemia E78.5 KAITLYNN (obstructive sleep apnea) G47.33
--- NOTE | 2022-08-19 08:17 | XACV_ITS ---
Exam Room: [facility] Ht: 165 cm Wt: 102 kg BSA: 2.21 m2 Gender: Male : 1950 Any Known Allergies: Other Exam Priority: Routine Procedure(s): Procedure Description: Diagnostic procedure Procedure Description: Left Heart Catheterization Procedure Description: Coronary Angiography Diagnostic Cath Status: Urgent Diagnostic Findings * Circumflex has diffuse mild to moderate luminal irregularities. * Right Coronary Artery is a small sized vessel with patent prior stents. * LAD has patent prior stents. Distal Left Anterior Descending: moderate 50% stenosis, VARUN: 3 flow. * Left Main has no disease. * 2nd Diagonal: obstructive 70% stenosis, VARUN: 3 flow. * Coronary angiography shows left dominance. Conclusions 1. Moderate multivessel CAD. Medical therapy. Recommendations * Aggressive risk factor modification. * Outpatient cardiology follow up. Interventional RX Recommendation: medical therapy and/or counseling Diagnostic RX Recommendation: medical therapy and/or counseling Anticoagulation: Heparin Pressures Phase:Rest AO : 147 / 65 ( 98 ) @ 9:38:00 AM 121 / 70 ( 94 ) @ 9:39:00 AM 120 / 70 ( 93 ) @ 9:40:00 AM 141 / 62 ( 96 ) @ 9:47:00 AM 138 / 61 ( 94 ) @ 9:47:00 AM LV : 144 / -9 / 23 @ 9:47:00 AM 144 / -9 / 21 @ 9:47:00 AM Valves Phase:DefaultPhase AV : 3.0 @ 8:56:29 AM 3.0 @ 8:56:29 AM AV Mean Gradient: 9.0 @ 8:56:29 AM Clinical Evaluation EBL: 5mL-10mL Procedural Details Procedure Consent Obtained. Current Diagnosis : NSTEMI. Pre-Procedure Time Out. Identified patient by full name and date of as verbalized by the patient/guarantor. Does the consent match the physician's order: Yes. Accurate & Complete Informed Consent: No. Inpatient/Outpatient History & Physical on Chart: Yes. If H&P is completed, is and addenduem needed: No; If yes, is the addendum complete: N/A. Visualize and Verify Site with Patient/Guarantor: N/A. Relevant Radiology Images available: Yes. The risks, benefits, and alternatives of sedation and/or procedure were discussed by physician. The patient agrees to continue. Procedure started. [facility] Clinical Fraility Score: 5: Mildly Frail. Leaded Glass Installer Indications: ACS > 24 hours. Chest Pain Symptom Assessment: Atypical Angina. Correct patient, site and procedure confirmed by cath team. Current diagnosis: NSTEMI. PERRLA. Strong, equal hand computer tester bilaterally. Lungs clear x 5 lobes. IV Site on Arrival: 20 gauge in the right anticubital. IV Fluids: 0.9% NaCl at KVO. 0 mL infused prior to quality assurance/r&d lab technician. Oxygen started at 2liters/min via nasal canula. Baseline sample Acquired. HR: 64 BPM. Physician arrived. Physician scrubbed in. Immediate Pre-Procedure Time Out. Correct Patient: Yes; Correct Procedure: Yes; Correct Site: Yes; Correct Patient Position: Yes; Correct Supplies: Yes; Dried Flammable Prep: Yes; Blood Products Available: N/A;. Lidocaine 1% infiltrated to the right groin. Arterial access obtained with micropuncture set. Wire and needle removed. Arterial access obtained with micropuncture set. A 5 kazakh JL4 catheter in over wire. Multiple views taken of left coronary artery. Catheter removed over the standard wire. A 5 kazakh JR4 catheter in over wire. Multiple views taken of right coronary artery. Catheter removed over the standard wire. A 5 kazakh Angled Pig catheter in over wire. EDP Sample taken: LV 144/-10,23; HR: 61 BPM; SpO2: 93%. Pullback taken: LV 144/-10,21; AO 141/62(96); Mean: 9mmHg, Peak to Peak: 3mmHg, SEP: 17sec/min; HR: 65 BPM; SpO2: 93%. Catheter removed over the standard wire. Physician review of cine films. A Right femoral angiogram was performed to determine safe placement of closure device. Sheath(s) sutured into position with 2-0 silk and sterile 4x4's and Op-site applied over the site. No oozing or signs and symptoms of hematoma noted. Arterial sheath flushed and connected to tranducer and pressure bag with heparinized saline. A Suture was successful obtaining hemostatsis at the Right Femoral artery insertion site. Post Procedure: Pulses reassessed and unchanged. PERRLA. Strong, equal hand computer tester bilaterally. No VTE prophylaxis required. Total IV fluids: 32 mL. Medication's Wasted: Heparin = 4000 units. Complications: None. Estimated blood loss: 5mL-10mL. Responsiveness - Normal response to verbal stimuli; alert and oriented, PERRLA. Vital chart was stopped. Airway - Unaffected, no intervention required; spontaneous ventilation. Circulation: W/N/L, pulses unchanged. Nausea/Vomiting: No. Procedure completed. Patient transferred by bed to 1st floor. Access Site Site: Right Femoral artery Sheath Size: 6 Fr Hemostasis Method: Suture Hemostasis Success: Successful Procedure Medications Start: 8:33 AM Stop: 8:33 AM Medication: Versed Amount: 1 mg Route: I.V. Start: 8:33 AM Stop: 8:33 AM Medication: Fentanyl Amount: 50 mcg Route: I.V. Start: 8:37 AM Stop: 8:37 AM Medication: Versed Amount: 1 mg Route: I.V. I, the attending physician, have reviewed and verified all procedure medications. Yes, all medications given per verbal order History/Risk Factors Hypertension: Yes Dyslipidemia: Yes Peripheral Arterial Disease (PAD): No Myocardial Infarction (MO): No Obesity: No Renal Disease: Yes Dialysis: Current Prior Interventions PCI: No CABG: No Valve Surgery: No Report Signatures Finalized by Daryl Ashraf MD on 09/02/2022 08:27 AM
--- NOTE | 2022-08-19 08:27 | W.PM.OPSUD ---
Surgery/Procedure H&P Update DATE OF PROCEDURE: August 19, 2022 DATE H&P PERFORMED: 08/18/22 H&P UPDATE INFORMATION: I have reviewed H&P completed within last 30 days, I have examined patient prior to procedure and No changes to prior documentation PREOP DIAGNOSIS: Unstable angina PRIMARY INDICATION FOR PROCEDURE: Unstable angina PLANNED PROCEDURE: Left heart cath with possible percutaneous coronary intervention PATIENT REASSESSED PRIOR TO SEDATION, WITH NO CHANGE NOTED: Yes PHYSICAL EXAM: alert, oriented x 3, clear to auscultation bilaterally and regular rate & rhythm AIRWAY EVAL/ANESTHESIA PLAN: normal airway, ASA III, Local Anesthesia, Risks, benefits & alternatives of sedation and/or procedure discussed and Patient agrees to continue as planned ADDITIONAL INFORMATION: Moderate sedation
[2022-08-19] MEDS: terazosin 5 mg Capsule 10 MG PO ×2 (09:49→17:14)
[2022-08-19] MEDS: isosorbide mononitrate ER 60 mg Tablet PO (09:50)
[2022-08-19] MEDS: allopurinol 100 mg Tablet PO (09:50)
[2022-08-19] MEDS: cholecalciferol (vitamin D3) 1,000 unit Tablet 2000 UNIT PO (09:50)
[2022-08-19] MEDS: cetirizine 10 mg Tablet PO (09:51)
[2022-08-19] MEDS: FUROsemide 40 mg Tablet 80 MG PO ×2 (09:51→17:14)
[2022-08-19 09:56] LABS: Partial Thromboplastin Time 33.2 SECONDS (23.9-36.7)
[2022-08-19] MEDS: hyDRALAzine 20 mg/mL INJ 1 mL 10 MG IVP (10:46)
[2022-08-19 10:52] LABS: Iron 93 ug/dL (59-158); Percent Saturation 51.9 % (20-50); Total Iron Binding Capacity 179 mcg/dl; Unsaturated Iron Binding 86 ug/dL (112-347)
[2022-08-19 11:08] LABS: Vitamin B12 443 pg/mL (232-1245)
[2022-08-19] MEDS: acetaminophen 325 mg Tablet 650 MG PO (11:24)
[2022-08-19 11:50] LABS: Glucose Point of Care 151 mg/dL (70-110)
--- NOTE | 2022-08-19 12:02 | PM.CONSULT ---
Providers/Reason For Consult Consulting Physician/Specialty*: [facility]/Nephrology Reason for Consult*: ESRD Attending Physician: Kaden Howell MD Primary Care Provider: Carlee Carreon DO History of Present Illness History of Present Illness Eliazar Hogan is a 72-year-old male with past medical history of coronary artery disease with prior PCI's , end-stage renal disease, diabetes, hypertension presented to the emergency department complaining of chest pain. Patient seen by cardiology. Lab data significant for potassium 4.3 creatinine 2.9. Patient started on heparin drip. He currently denies any complaints. Review of Systems Narrative: Other review of systems negative Medications/Allergies Home Medications Medication Instructions Recorded Confirmed Last Taken Type acetaminophen 500 mg tablet 1,000 mg PO Q6H PRN Pain 05/05/19 08/18/22 12/05/21 History (Tylenol Extra Strength) pantoprazole 40 mg tablet,delayed 40 mg PO QAM 05/05/19 08/18/22 08/17/22 History release terazosin 10 mg capsule 10 mg PO BID 05/05/19 08/18/22 08/17/22 History furosemide 40 mg tablet 80 mg PO BID 04/24/20 08/18/22 08/17/22 History insulin aspart U-100 100 unit/mL See Rx Instructions .Route 08/22/20 08/18/22 12/04/21 Rx (3 mL) subcutaneous pen (Novolog .COMPLEX #15 mL FlexPen U-100 Insulin aspart) aspirin 81 mg tablet,delayed 81 mg PO QAM 09/01/20 08/18/22 08/17/22 History release clopidogrel 75 mg tablet 75 mg PO BEDTIME 09/01/20 08/18/22 08/17/22 History Diabetic Shoes #1 ea 09/13/20 08/18/22 12/05/21 Rx Diabetic Shoes #1 ea 10/25/20 08/18/22 12/05/21 Rx levothyroxine 25 mcg tablet 25 mcg PO QAM 11/09/20 08/18/22 08/17/22 History cetirizine 10 mg tablet (Zyrtec) 10 mg PO DAILY 11/14/20 08/18/22 08/17/22 History isosorbide mononitrate 60 mg 60 mg PO DAILY 11/14/20 08/18/22 08/17/22 History tablet,extended release 24 hr escitalopram oxalate 20 mg tablet 10 mg PO QAM 01/09/21 08/18/22 08/17/22 History (Lexapro) insulin detemir U-100 100 unit/mL 20 unit SUBCUT BEDTIME 03/27/21 08/18/22 08/17/22 History (3 mL) subcutaneous pen (Levemir FlexTouch U-100 Insulin) BIPAP and supplies #1 ea 04/09/21 08/18/22 12/05/21 Rx magnesium oxide 400 mg PO BEDTIME 07/31/21 08/18/22 08/17/22 History rosuvastatin 10 mg tablet (Crestor) 10 mg PO BEDTIME 09/20/21 08/18/22 08/17/22 History amlodipine 10 mg tablet 10 mg PO BEDTIME 09/29/21 08/18/22 08/17/22 History carvedilol 12.5 mg tablet 12.5 mg PO QAM 09/29/21 08/18/22 08/17/22 History hydralazine 10 mg tablet 10 mg PO QAM 09/29/21 08/18/22 08/17/22 History losartan 100 mg tablet 100 mg PO BEDTIME 09/29/21 08/18/22 08/17/22 History nitroglycerin 0.4 mg sublingual 0.4 mg sublingual Q5M PRN Chest 09/29/21 08/18/22 09/29/21 History tablet (Nitrostat) Pain 2 tabs cholecalciferol (vitamin D3) 50 50 mcg PO DAILY 02/13/22 08/18/22 08/17/22 History mcg (2,000 unit) capsule omega [id number]-fish oil 1,000 mg 1 cap PO BID 02/13/22 08/18/22 08/17/22 History (120 mg-180 mg) capsule (Fish Oil) sevelamer carbonate 800 mg tablet 800 mg PO TID 02/13/22 08/18/22 08/17/22 History allopurinol 100 mg tablet 100 mg PO DAILY 08/18/22 08/18/22 08/17/22 History folic acid 0.8 mg capsule 0.8 mg PO DAILY 08/18/22 08/18/22 08/17/22 History Allergies Allergy/AdvReac Type Severity Reaction Status Date / Time chicken derived Allergy Unknown Unknown Verified 07/30/22 07:50 morphine AdvReac Mild dizzy & Verified 07/30/22 07:50 nauseous Current Medications Generic Name Dose Route Start Last Admin Trade Name Freq PRN Reason Stop Dose Admin Acetaminophen 650 mg 08/18/22 12:53 08/19/22 11:24 Acetaminophen 325 Mg Tablet PO 650 mg Q6H PRN Administration Mild/Mod Pain Or Temp >/= 101 Allopurinol 100 mg 08/19/22 09:00 08/19/22 09:50 Allopurinol 100 Mg Tablet PO 100 mg DAILY SAYRA Administration Amlodipine Besylate 10 mg 08/18/22 21:00 08/18/22 21:02 Amlodipine 10 Mg Tablet PO 10 mg BEDTIME SAYRA Administration Aspirin 81 mg 08/19/22 06:00 08/19/22 05:49 Aspirin 81 Mg Ec Tablet PO 81 mg QAM SAYRA Administration Atorvastatin Calcium 40 mg 08/18/22 21:00 08/18/22 21:02 Atorvastatin 40 Mg Tablet PO 40 mg BEDTIME SAYRA Administration Carvedilol 12.5 mg 08/19/22 06:00 08/19/22 05:49 Carvedilol 12.5 Mg Tablet PO 12.5 mg QAM SAYRA Administration Cetirizine HCl 10 mg 08/19/22 09:00 08/19/22 09:51 Cetirizine 10 Mg Tablet PO 10 mg DAILY SAYRA Administration Clopidogrel Bisulfate 75 mg 08/18/22 21:00 08/18/22 21:02 Clopidogrel 75 Mg Tablet PO 75 mg BEDTIME SAYRA Administration Escitalopram Oxalate 10 mg 08/19/22 06:00 08/19/22 05:49 Escitalopram 10 Mg Tablet PO 10 mg QAM SAYRA Administration Furosemide 80 mg 08/18/22 18:00 08/19/22 09:51 Furosemide 40 Mg Tablet PO 80 mg BID SAYRA Administration Heparin Sodium (Porcine) 0 unit 08/18/22 09:24 08/19/22 05:50 Heparin 5,000 Unit/Ml Inj 1 Ml IV 2,100 unit PRN PRN Administration Heparin weight-base protocol Protocol Hydralazine HCl 10 mg 08/19/22 09:00 08/19/22 09:51 Hydralazine 10 Mg Tablet PO 10 mg TID SAYRA Administration Heparin Sodium/Sodium Chloride 25,000 unit in 500 mls @ 0 mls/hr 08/18/22 09:30 08/19/22 06:22 Heparin Drip IV Infused .Q0M REPLACED BY [facility] Titration Protocol Per Protocol Insulin Glargine 20 unit 08/18/22 21:00 08/18/22 21:54 Insulin Glargine 100 Units/1 Ml SUBCUT 20 unit BEDTIME SAYRA Administration Insulin Human Lispro 0 unit 08/18/22 18:00 08/19/22 08:41 Insulin Lispro 100 Unit/1 Ml SUBCUT Not Given WM&BEDTIME SAYRA Protocol Isosorbide Mononitrate 60 mg 08/19/22 09:00 08/19/22 09:50 Isosorbide Mononitrate Er 60 Mg Tablet PO 60 mg DAILY SAYRA Administration Levothyroxine Sodium 25 mcg 08/19/22 06:00 08/19/22 05:49 Levothyroxine 25 Mcg Tablet PO 25 mcg QAM SAYRA Administration Losartan Potassium 100 mg 08/18/22 21:00 08/18/22 21:02 Losartan 50 Mg Tablet PO 100 mg BEDTIME SAYRA Administration Magnesium Oxide 400 mg 08/18/22 21:00 08/18/22 21:02 Magnesium Oxide 400 Mg Tablet PO 400 mg BEDTIME SAYRA Administration Nitroglycerin 1 inch 08/18/22 20:45 08/19/22 10:46 Nitroglycerin 1 Gm/Inch Oint Pkt TOPICAL 1 inch Q6H SAYRA Administration Non-Formulary Medication 0.8 mg 08/19/22 09:00 08/19/22 09:25 Folic Acid PO Not Given DAILY REPLACED BY [facility] Non-Formulary Medication 1 cap 08/18/22 18:00 08/19/22 09:25 [place] 8-Aqf-Ush-Fish Oil [Fish Oil] PO Not Given BID SAYRA Pantoprazole Sodium 40 mg 08/19/22 06:00 08/19/22 05:[address] 40 Mg Tablet PO 40 mg QAM REPLACED BY [facility] Administration Sevelamer Carbonate 800 mg 08/18/22 15:00 08/19/22 09:51 Sevelamer 800 Mg Tablet PO Not Given TID SAYRA Terazosin HCl 10 mg 08/18/22 18:00 08/19/22 09:49 Terazosin 5 Mg Capsule PO 10 mg BID SAYRA Administration Vitamin D 2,000 unit 08/19/22 09:00 08/19/22 09:50 Cholecalciferol (Vitamin D3) 1,000 Unit Tablet PO 2,000 unit DAILY SAYRA Administration PFSH Acute PFSH: Medical History (Updated 08/19/22 @ 12:09 by Taylor Marx MD) Acute kidney injury superimposed on CKD Anemia CAD (coronary artery disease) Cardiac enzymes elevated Carotid stenosis, bilateral Chest pain Chronic back pain Chronic kidney disease Chronic kidney disease (CKD) stage G5/A1, glomerular filtration rate (GFR) less than or equal to 15 mL/min/1.73 square meter and albuminuria creatinine ratio less than 30 mg/g Congestive 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 CVA (cerebral vascular accident) Diabetes 1.5, 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 Dyslipidemia ESRD (end stage renal disease) Essential hypertension Hemodialysis access site with arteriovenous graft History of 2019 novel coronavirus disease (COVID-19) Hypothyroidism NSTEMI (non-ST elevated myocardial infarction) KAITLYNN (obstructive sleep apnea) Paget's disease Surgical History History of esophagogastroduodenoscopy (EGD) 10 yrs ago Hx of cholecystectomy Previous back surgery S/P angioplasty with stent S/P cataract extraction S/P hemodialysis catheter insertion Family History Mother CAD (coronary artery disease) Stroke Sister Hypertension Social History Smoking and tobacco status: never smoked Alcohol intake: never Substance/Drug Use: never Household members: spouse Marital status: service: Yes branch: [employer] Current occupational status: employed Current occupation: [employer] Current gender identity: Male Vitals/I&O/Wt Last Vital Signs Temp 97.6 F 08/19/22 08:00 Pulse 71 08/19/22 08:00 Resp 18 08/19/22 08:00 BP 163/79 08/19/22 08:00 Pulse Ox 92 08/19/22 08:00 O2 Del Method Nasal Cannula 08/19/22 08:00 O2 Flow Rate 2 08/18/22 20:30 08/18/22 08/19/22 08/19/22 22:59 06:59 14:59 Intake Total 360 / 360 620 / 980 0 / 0 Balance 360 / 360 620 / 980 0 / 0 Weight last 48 hrs Weight 0 g Weight 102 kg Physical Exam Narrative: Patient is awake alert, no acute distress, on 2 L FiO2, HEENT, PERRLA, S1-S2 regular rate and rhythm, no edema Data 08/19/22 03:21 08/19/22 03:21 A&P Assessment and plan (1) ESRD (end stage renal disease): Plan End-stage renal disease: On TTS schedule as outpatient, will plan on HD tomorrow, no indication for HD today. Hypertension: Controlled History of coronary artery disease now with possible unstable angina. On heparin drip and further management per cardiology. Patient evaluated using audiovisual cart. Time spent 40 minutes. Consult Attestations Medical Necessity Statement: Per medicine Coding Level of Care Code Acute Code for Chg Fwd Diagnoses ESRD (end stage renal disease) N18.6
[2022-08-19] MEDS: insulin lispro 100 unit/1 mL SUBCUT ×2 (13:13→17:14)
[2022-08-19] MEDS: sevelamer 800 mg Tablet PO (15:12)
[2022-08-19 16:56] LABS: Glucose Point of Care 354 mg/dL (70-110)
--- NOTE | 2022-08-19 17:10 | PM.PN ---
Subjective Subjective: Hospital course, labs appreciated. Today morning seen postcardiac catheterization. Femoral streaking present. Has remained hemodynamically stable and afebrile. Denies any chest pain. Vitals/I&O/Wt Last Vital Signs Temp 97.6 F 08/19/22 08:00 Pulse 69 08/19/22 16:46 Resp 18 08/19/22 16:46 BP 153/65 08/19/22 16:46 Pulse Ox 95 08/19/22 16:46 O2 Del Method Nasal Cannula 08/19/22 16:46 O2 Flow Rate 2 08/18/22 20:30 08/19/22 08/19/22 08/19/22 06:59 14:59 22:59 Intake Total 620 / 980 240 / 240 Balance 620 / 980 240 / 240 Weight last 48 hrs Weight 0 g Weight 102 kg Physical Exam Const: COMMON NORMALS: patient oriented x3 HENMT: COMMON NORMALS: normocephalic, atraumatic, hearing grossly normal bilaterally and external ears normal HEAD & SCALP: normocephalic and atraumatic EXTERNAL EAR: Yes external ears normal Resp: COMMON NORMALS: normal respiratory effort, No retractions, No use of accessory muscles and clear to auscultation bilaterally EFFORT & INSPECTION: Yes symmetric chest movement AUSCULTATION: clear to auscultation bilaterally Cardio: COMMON NORMALS: regular rate, regular rhythm, S1 normal heart sound present, S2 normal heart sound present, No gallops present (Cardio), No murmurs present (Cardio), No rub (Cardio) and Peripheral pulses 2+ throughout RATE: regular rate RHYTHM: regular rhythm HEART SOUNDS: S1 normal heart sound present and S2 normal heart sound present PERIPHERAL PULSES: Peripheral pulses 2+ throughout GI: COMMON NORMALS: Normal to inspection, nondistended, normoactive bowel sounds present, Soft to palpation, non-tender, No hepatosplenomegaly present and no masses AUSCULTATION: Yes normoactive bowel sounds PALPATION: Yes Soft to palpation and Yes No hepatosplenomegaly present RECTAL EXAM: Yes deferred Extremity: COMMON NORMALS: no clubbing, cyanosis or edema and no pedal edema Neuro: COMMON NORMALS: patient oriented x3 Data 08/19/22 03:21 08/19/22 03:21 A&P Assessment and plan (1) Chest pain: (2) Non-ST elevated myocardial infarction (non-STEMI): (3) Chronic kidney disease (CKD) stage G5/A1, glomerular filtration rate (GFR) less than or equal to 15 mL/min/1.73 square meter and albuminuria creatinine ratio less than 30 mg/g: (4) CAD (coronary artery disease): Qualifiers: Associated angina: without angina Coronary Disease-Associated Artery/Lesion type: [place] artery [place] vs. transplanted heart: makah heart Qualified Code(s): I25.10 - Atherosclerotic heart disease of makah coronary artery without angina pectoris (5) KAITLYNN (obstructive sleep apnea): Plan 72 year old male with past medical history of hypertension,gout, diabetes, coronary artery disease, end-stage renal disease dialysis dependent , came in today with chief complaint of substernal chest pain, pressure-like, radiating to the jaws, started this morning.He also experienced 1 episode of nausea and vomiting this morning. Assessment: NSTEMI: Denies any active chest pain. Postcardiac angiogram. Appreciate results. Complete Business Representative report not available currently. Stop heparin drip. Continue with aspirin, statin, beta-artem, Plavix. Continue with home dose of Imdur. Appreciate A1c and lipid panel within last 6 months. History of hypertension: Goal pressure less than 140/90 mmHg. Blood pressure slightly elevated. Continue with home dose of amlodipine, carvedilol, losartan, Imdur. Increase hydralazine to 10 mg 3 times daily from 10 mg daily. Uptitrate as for goal blood pressures. End-stage renal disease dialysis dependent Friday Nephrology consult for routine hemodialysis Continue Lasix 80 p.o. twice daily History of diabetes: Continue with home dose of Lantus 20 units daily. Insulin sliding scale before meals and at bedtime high-dose protocol. History of coronary artery disease: Continue aspirin Plavix, statin beta-artem History of gout: Continue allopurinol CODE STATUS: Full code Heparin for DVT prophylaxis Protonix OPD prophylaxis Attestations Medical Necessity Statement*: Requires further hospitalization for further optimization of cardiac medications in a patient with chest pain under evaluation postcardiac angiogram with end-stage renal disease on hemodialysis and elevated blood pressures Diagnoses Chest pain R07.9 Non-ST elevated myocardial infarction (non-STEMI) I21.4 Chronic kidney disease (CKD) stage G5/A1, glomerular filtration rate (GFR) less than or equal to 15 mL/min/1.73 square meter and albuminuria creatinine ratio less than 30 mg/g N18.5 CAD (coronary artery disease) I25.10 Associated angina: without angina Coronary Disease-Associated Artery/Lesion type: [place] artery [place] vs. transplanted heart: makah heart KAITLYNN (obstructive sleep apnea) G47.33
[2022-08-19] MEDS: heparin 5,000 unit/mL INJ 1 mL 5000 UNIT SUBCUT (18:27)
[2022-08-19] MEDS: magnesium oxide 400 mg tablet PO (21:18)
[2022-08-19] MEDS: atorvastatin 40 mg Tablet PO (21:18)
[2022-08-19] MEDS: losartan 50 mg Tablet 100 MG PO (21:18)
[2022-08-19] MEDS: clopidogrel 75 mg Tablet PO (21:19)
[2022-08-19] MEDS: amlodipine 10 mg Tablet PO (21:19)
[2022-08-19] MEDS: insulin glargine 100 units/1 mL 20 UNIT SUBCUT (21:19)
[2022-08-19 21:24] LABS: Glucose Point of Care 110 mg/dL (70-110)
[2022-08-20] VITALS: BP 156/76; PULSE 72; RESP 18; TEMP 37.1; O2SAT 93
[2022-08-20 00:53] LABS: Glucose Point of Care 189 mg/dL (70-110)
[2022-08-20] MEDS: nitroglycerin 1 gm/inch oint Pkt 1 INCH TOPICAL ×3 (03:34→15:17)
[2022-08-20 04:00] VITALS: BP 150/73; PULSE 73; RESP 20; TEMP 36.8; O2SAT 92
[2022-08-20 04:08] LABS: Basophils # 0.1 10^3/uL (0.0-0.1); Basophils % 0.5 %; Eosinophils # 0.4 10^3/uL (0.0-0.8); Eosinophils % 3.8 %; Hematocrit 30.3 % (42.0-52.0); Hemoglobin 9.3 g/dL (11.7-16.6); Lymphocytes # 1.2 10^3/uL (0.8-4.8); Lymphocytes % 12.2 %; Mean Corpuscular HGB Conc 30.7 g/dL (30.0-36.0); Mean Corpuscular Hemoglobin 28.8 pg (28.0-34.0); Mean Corpuscular Volume 93.8 fl (80-94); Mean Platelet Volume 9.5 fL (7.4-10.4); Monocytes # 0.8 10^3/uL (0.2-0.9); Monocytes % 8.4 %; Neutrophils # 7.13 10^3/uL (1.8-7.7); Neutrophils % 74.6 %; Nucleated Red Blood Cells % 0 %; Platelet Count 217 10^3/cmm (130-400); Red Blood Count 3.23 10^6/uL (4.1-5.3); Red Cell Distribution Width 14.1 % (12.1-15.1); White Blood Count 9.6 10^3/uL (4.0-10.0)
[2022-08-20 04:28] LABS: Alanine Aminotransferase 9 U/L (0-41); Albumin Level 3.2 g/dL (3.5-5.2); Alkaline Phosphatase 168 U/L (40-130); Blood Urea Nitrogen 36 mg/dL (8-23); Calcium 9.2 mg/dL (8.5-10.5); Carbon Dioxide 26 mmol/L (22-29); Chloride 100 mmol/L (98-107); Creatinine Clr Calc Pharmacy 0; Globulin 3.1 g/dL (1.3-4.6); Glucose 136 mg/dL (65-115); Osmolality Calculated 300 mOsm/kg (285-295); Sodium 140 mmol/L (136-145); Total Bilirubin 0.3 mg/dL (0.15-1.2); Total Protein 6.3 g/dL (6.6-8.7)
[2022-08-20 04:30] LABS: Anion Gap 18.9 (5-19); Aspartate Amino Transferase 14 U/L (0-40); Potassium 4.9 mmol/L (3.5-5.1)
[2022-08-20 05:09] VITALS: PULSE 75
[2022-08-20] MEDS: carvedilol 12.5 mg Tablet PO (05:22)
[2022-08-20] MEDS: pantoprazole DR 40 mg Tablet PO (05:22)
[2022-08-20] MEDS: levothyroxine 25 mcg Tablet PO (05:22)
[2022-08-20] MEDS: heparin 5,000 unit/mL INJ 1 mL 5000 UNIT SUBCUT (05:22)
[2022-08-20] MEDS: aspirin 81 mg EC Tablet PO (05:22)
[2022-08-20] MEDS: escitalopram 10 mg Tablet PO (05:22)
[2022-08-20 05:55] LABS: Glucose Point of Care 150 mg/dL (70-110)
[2022-08-20 07:35] LABS: Folate Level 16.7 ng/mL (4.5-32.2)
--- NOTE | 2022-08-20 07:50 | PM.PN ---
Subjective Subjective: Patient doing well. No chest pain today. Vitals/I&O/Wt Last Vital Signs Temp 98.3 F 08/20/22 04:00 Pulse 75 08/20/22 05:09 Resp 20 H 08/20/22 04:00 BP 150/73 08/20/22 04:00 Pulse Ox 92 08/20/22 04:00 O2 Del Method Nasal Cannula 08/20/22 04:00 O2 Flow Rate 2 08/20/22 04:00 08/19/22 08/20/22 08/20/22 22:59 06:59 14:59 Intake Total 360 / 600 240 / 840 Balance 360 / 600 240 / 840 Weight last 48 hrs Weight 225 lb 8 oz Weight 0 oz Physical Exam Narrative: GENERAL: Patient is alert, awake and oriented x3. [] NECK: No jugular vein distension. [] HEENT: No cyanosis. No icterus. No pallor. [] HEART: Regular S1 and S2. No murmur, rub or gallop. [] LUNGS: Clear to auscultate bilaterally. [] CENTRAL NERVOUS SYSTEM: Grossly nonfocal. [] EXTREMITIES: Lower extremities with 1+ edema bilaterally. Pulses palpable in the lower extremities, both dorsalis pedis and posterior tibial. [] Data 08/20/22 03:38 08/20/22 03:38 A&P Assessment and plan (1) Atherosclerotic heart disease of kenait[place] coronary artery with unstable angina pectoris: Patient is stable. Continue dual antiplatelet therapy. Can uptitrate Imdur. (2) Benign essential hypertension with target blood pressure below 140/90: Continue medications. (3) T2DM (type 2 diabetes mellitus): Aggressive management of the diabetes would be appropriate. (4) Hypothyroidism: Continue on the current management. Qualifiers: Hypothyroidism type: acquired Qualified Code(s): E03.9 - Hypothyroidism, unspecified (5) Chronic kidney disease (CKD) stage G5/A1, glomerular filtration rate (GFR) less than or equal to 15 mL/min/1.73 square meter and albuminuria creatinine ratio less than 30 mg/g: Patient is on hemodialysis. (6) Dyslipidemia: Continue on the current medications (7) KAITLYNN (obstructive sleep apnea): May continue on the current management Plan Patient is stable to be discharged from cardiology standpoint. Attestations Medical Necessity Statement*: Care expected to cross 2 midnights. Coding Level of Care Code Acute Code for Chg Fwd Diagnoses Atherosclerotic heart disease of ken[place]ze coronary artery with unstable angina pectoris I25.110 Benign essential hypertension with target blood pressure below 140/90 I10 T2DM (type 2 diabetes mellitus) E11.9 Hypothyroidism E03.9 Hypothyroidism type: acquired Chronic kidney disease (CKD) stage G5/A1, glomerular filtration rate (GFR) less than or equal to 15 mL/min/1.73 square meter and albuminuria creatinine ratio less than 30 mg/g N18.5 Dyslipidemia E78.5 KAITLYNN (obstructive sleep apnea) G47.33
[2022-08-20 08:00] VITALS: PULSE 72; O2SAT 93
[2022-08-20] MEDS: isosorbide mononitrate ER 60 mg Tablet PO (08:26)
[2022-08-20] MEDS: FUROsemide 40 mg Tablet 80 MG PO (08:26)
[2022-08-20] MEDS: allopurinol 100 mg Tablet PO (08:26)
[2022-08-20] MEDS: insulin lispro 100 unit/1 mL SUBCUT (08:26)
[2022-08-20] MEDS: cetirizine 10 mg Tablet PO (08:26)
[2022-08-20] MEDS: hyDRALAzine 10 mg Tablet PO ×2 (08:26→15:17)
[2022-08-20] MEDS: sevelamer 800 mg Tablet PO ×2 (08:26→15:17)
[2022-08-20] MEDS: cholecalciferol (vitamin D3) 1,000 unit Tablet 2000 UNIT PO (08:26)
--- NOTE | 2022-08-20 08:47 | PM.PN ---
Subjective Subjective: s/p LHC yesterday Medications: Reviewed: Yes Vitals/I&O/Wt Last Vital Signs Temp 98.3 F 08/20/22 04:00 Pulse 75 08/20/22 05:09 Resp 20 H 08/20/22 04:00 BP 150/73 08/20/22 04:00 Pulse Ox 92 08/20/22 04:00 O2 Del Method Nasal Cannula 08/20/22 04:00 O2 Flow Rate 2 08/20/22 04:00 08/19/22 08/20/22 08/20/22 22:59 06:59 14:59 Intake Total 360 / 600 240 / 840 Balance 360 / 600 240 / 840 Weight last 48 hrs Weight 102.285 kg Weight 0 g Physical Exam Narrative: Patient is awake alert, no acute distress, on 2 L FiO2, HEENT, PERRLA, S1-S2 regular rate and rhythm, no edema Data 08/20/22 03:38 08/20/22 03:38 A&P Assessment and plan (1) ESRD (end stage renal disease): Plan End-stage renal disease: On TTS schedule as outpatient, will plan on HD today , Hypertension: Controlled History of coronary artery disease now with possible unstable angina. seen by cardiology and s/p LHC . Patient evaluated using audiovisual cart. Time spent 40 minutes. Attestations Medical Necessity Statement*: per leoncio Coding Level of Care Code Acute Code for Chg Fwd Diagnoses ESRD (end stage renal disease) N18.6
--- NOTE | 2022-08-20 08:54 | P.DS_ITS ---
Discharge Providers Date of Admission: 08/18/22 12:13 Date of Discharge: August 20, 2022 Attending Provider at Admission: Corbin Trujillo MD Attending Provider at Discharge: Kaden Howell MD Primary Care Provider: Carlee Carreon DO Diagnoses at Discharge Discharge Diagnosis (1) ESRD (end stage renal disease): Status: Acute Reason for Visit Reason for Visit: CHEST PAIN Hospital Course Hospital Course Eliazar Hogan is a 72 year old male with a history of atherosclerotic heart disease and multiple PCI's, high blood pressure, dyslipidemia, type 2 diabetes, hypothyroidism and end-stage renal disease. This patient is known to have coronary disease and had multiple PCI's in the past.? His first PCI was in 2014.? According the patient, he had 2 stent placement at that time.? Most recently in October 2020, he presented with chest pain and features of? non-ST elevation myocardial infarction.? He had cardiac radiation followed by multiple stent placements in the left and descending artery and right coronary artery.? Details are as mentioned below. Apparently the patient has been doing okay up until this morning when he woke up around 130 with nausea and vomiting.? He had multiple bouts of vomiting.? This was followed by just dry heaves.? Around 5:30 in the morning, he took some Pepto-Bismol and tried to lie down.? Around this time, he started having chest pain.? The pain was on the left side of the chest, radiated to the left arm, to the left shoulder and to the left side of the neck.? He had some associated shortness of breath and nausea.? He may have waited around for 10 minutes or so.? He did not have any sublingual nitroglycerin available at home.? At this point he called the ambulance and was brought to the emergency room.? In the emergency room, he was placed on Nitropaste on the chest wall.? His chest pain gradually started disappearing.? The chest pain might have lasted for a total of an hour or so.? The intensity of the pain was around 10/10 at home.? It came down to around 2/10 in the emergency room.? Since then, he has been having few episodes of chest pain/tightness.? Currently at the time of my examination, patient has some chest discomfort but does not seem to which concerned about this.? He has no fever, chills or cough. Patient is diagnosed with end-stage renal disease and is on hemodialysis 3 times a week for the last 2 years.? He denies any fever, chills or cough.? No other specific complaints. He denies any smoking abuse or alcohol abuse.? No significant family history for premature atherosclerotic heart disease. Cardiology was consulted and with concerns for ACS he underwent cardiac angiogram on 08/19 which showed patent stents without any significant CAD with mild to moderate luminal irregularities. Patient tolerated the procedure well. He is advised for further medication modifications and better blood pressure control his antihypertensives were adjusted. He received dialysis on 08/20. He has been discharged hemodynamically stable condition on adjusted antihypertensives. He is to take Imdur 60 mg twice daily along with hydralazine 10 mg 3 times a day as needed for systolic blood pressure of more than 160 mmHg. He is to continue with dialysis sessions as before. He is to follow-up with his primary care provider within next 1 week and with Lucinaa Bergman from cardiology within next 2 weeks. Physical Exam Const: COMMON NORMALS: patient oriented x3 HENMT: COMMON NORMALS: normocephalic, atraumatic, hearing grossly normal bilaterally and external ears normal HEAD & SCALP: normocephalic and atraumatic EXTERNAL EAR: Yes external ears normal Resp: COMMON NORMALS: normal respiratory effort, No retractions, No use of accessory muscles and clear to auscultation bilaterally EFFORT & INSPECTION: Yes symmetric chest movement AUSCULTATION: clear to auscultation bilaterally Cardio: COMMON NORMALS: regular rate, regular rhythm, S1 normal heart sound present, S2 normal heart sound present, No gallops present (Cardio), No murmurs present (Cardio), No rub (Cardio) and Peripheral pulses 2+ throughout RATE: regular rate RHYTHM: regular rhythm HEART SOUNDS: S1 normal heart sound present and S2 normal heart sound present PERIPHERAL PULSES: Peripheral pulses 2+ throughout GI: COMMON NORMALS: Normal to inspection, nondistended, normoactive bowel s ounds present, Soft to palpation, non-tender, No hepatosplenomegaly present and no masses AUSCULTATION: Yes normoactive bowel sounds PALPATION: Yes Soft to palpation and Yes No hepatosplenomegaly present RECTAL EXAM: Yes deferred Extremity: COMMON NORMALS: no clubbing, cyanosis or edema and no pedal edema Neuro: COMMON NORMALS: patient oriented x3 Discharge Data Studies Completed and Pending Completed Studies During Hospitalization Category Date Time Status CT abdomen pelvis wo con [id number] Stat Cat Scan 08/18/22 07:25 Completed XR chest 1V portable [id number] Stat Exams 08/18/22 07:18 Completed CV. 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 No acute findings. 2. Chronic bone sclerosis in the right scapula. Possible Paget's disease of bone. Abdomen/Pelvis CT 08/18/22 07:25 IMPRESSION: 1. Posterolateral thoracolumbar fusion without apparent complications. There is diffuse lumbar degenerative disease with severe spinal stenosis at L4-L5. 2. 2.5 cm indeterminate right renal lesion, increased in size since 2020. Possible complicated cyst or neoplasm. Recommend nonemergent follow-up CT or MRI with and without IV contrast. 3. Incidental findings above. COMMENTS: Consistent with the [employer]'s Incidental Findings Committee white paper (J Am Sosa Radiol 2018): Any incidental renal lesion less than 1 cm or classified as too small to characterize, or any incidental cystic renal lesion characterized as simple-appearing, is likely benign. No follow-up imaging is recommended for these lesions per consensus recommendations based on imaging criteria. Echocardiogram: ?CONCLUSIONS ?Normal left ventricular size and systolic function, EF 73 %. No ?regional wall motion abnormalities. Grade I/IV diastolic ?dysfunction (abnormal relaxation filling pattern), normal to ?mildly elevated filling pressures. ?Mildly increased left atrial size. ?Thickened mitral valve. ?Thickened aortic valve.? Features of aortic valve sclerosis. ?There is no pericardial effusion. ?There are no intracardiac masses. ?No similar previous studies are available for comparison ?Dr Mohit Albarado MD [facility] ?(Electronically Signed) ?Final Date:? ? ? 18 August 2022 ? 23:30 Laboratory Results WBC 9.6 10^3/uL (4.0-10.0) 08/20/22 03:38 RBC 3.23 10^6/uL (4.1-5.3) L 08/20/22 03:38 Hgb 9.3 g/dL (11.7-16.6) L 08/20/22 03:38 Hct 30.3 % (42.0-52.0) L 08/20/22 03:38 MCV 93.8 fl (80-94) 08/20/22 03:38 MCH 28.8 pg (28.0-34.0) 08/20/22 03:38 MCHC 30.7 g/dL (30.0-36.0) 08/20/22 03:38 RDW 14.1 % (12.1-15.1) 08/20/22 03:38 Plt Count 217 10^3/cmm (130-400) 08/20/22 03:38 MPV 9.5 fL (7.4-10.4) 08/20/22 03:38 Neut % (Auto) 74.6 % 08/20/22 03:38 Lymph % (Auto) 12.2 % 08/20/22 03:38 Jewell % (Auto) 8.4 % 08/20/22 03:38 Eos % (Auto) 3.8 % 08/20/22 03:38 Baso % (Auto) 0.5 % 08/20/22 03:38 Neut # (Auto) 7.13 10^3/uL (1.8-7.7) 08/20/22 03:38 Lymph # (Auto) 1.2 10^3/uL (0.8-4.8) 08/20/22 03:38 Jewell # (Auto) 0.8 10^3/uL (0.2-0.9) 08/20/22 03:38 Eos # (Auto) 0.4 10^3/uL (0.0-0.8) 08/20/22 03:38 Baso # (Auto) 0.1 10^3/uL (0.0-0.1) 08/20/22 03:38 Nucleated RBC % (auto) 0 % 08/20/22 03:38 Nucleated RBCs # 0.0 /100WBC 08/20/22 03:38 APTT 33.2 SECONDS (23.9-36.7) 08/19/22 09:34 Sodium 140 mmol/L (136-145) 08/20/22 03:38 Potassium 4.9 mmol/L (3.5-5.1) 08/20/22 03:38 Chloride 100 mmol/L (98-107) 08/20/22 03:38 Carbon Dioxide 26 mmol/L (22-29) 08/20/22 03:38 Anion Gap 18.9 (5-19) 08/20/22 03:38 BUN 36 mg/dL (8-23) H 08/20/22 03:38 Creatinine 4.5 mg/dL (0.7-1.2) H 08/20/22 03:38 GFR Calculation Not Reportable 08/20/22 03:38 Glucose 136 mg/dL (65-115) H 08/20/22 03:38 POC Glucose 150 mg/dL (70-110) H 08/20/22 05:52 Calculated Osmolality 300 mOsm/kg (285-295) H 08/20/22 03:38 Calcium 9.2 mg/dL (8.5-10.5) 08/20/22 03:38 Magnesium 2.2 mg/dL (1.7-2.3) 08/19/22 03:21 Iron 93 ug/dL (59-158) 08/19/22 03:21 TIBC 179 mcg/dl 08/19/22 03:21 % Saturation 51.9 % (20-50) H 08/19/22 03:21 Unsat Iron Binding 86 ug/dL (112-347) L 08/19/22 03:21 Total Bilirubin 0.3 mg/dL (0.15-1.2) 08/20/22 03:38 AST 14 U/L (0-40) 08/20/22 03:38 ALT 9 U/L (0-41) 08/20/22 03:38 Alkaline Phosphatase 168 U/L (40-130) H 08/20/22 03:38 Troponin T Baseline 103 ng/L (0-15) H* 08/18/22 08:15 Troponin T 120 Minute 95.32 ng/L (0-15) H 08/18/22 10:25 Delta Troponin T -7.68 ABS# (0-10) L 08/18/22 10:25 Troponin T Hi Sens 6Hr 97.59 ng/L (0-15) H 08/18/22 14:43 Troponin T Hi Sens 6Hr Delta -5.41 ng/L (0-12) L 08/18/22 14:43 Total Protein 6.3 g/dL (6.6-8.7) L 08/20/22 03:38 Albumin 3.2 g/dL (3.5-5.2) L 08/20/22 03:38 Globulin 3.1 g/dL (1.3-4.6) 08/20/22 03:38 Lipase 29 U/L (13-60) 08/18/22 08:15 Vitamin B12 443 pg/mL (232-1245) 08/19/22 03:21 Folate Cancelled 08/20/22 03:38 Urine Color Yellow (Yellow) 08/18/22 10:20 Urine Appearance Clear (CLEAR) 08/18/22 10:20 Urine pH 9 (5-7) H 08/18/22 10:20 Ur Specific [place] 1.010 (1.005-1.030) 08/18/22 10:20 Urine Protein Neg (Negative) 08/18/22 10:20 Urine Glucose (UA) Norm (Normal) 08/18/22 10:20 Urine Ketones Negative (Negative) 08/18/22 10:20 Urine Blood Neg (Negative) 08/18/22 10:20 Urine Nitrate Negative (Negative) 08/18/22 10:20 Urine Bilirubin Neg (Negative) 08/18/22 10:20 Prot Sulfosalicylic Acd Negative (Negative) 08/18/22 10:20 Urine Urobilinogen Norm mg/dL (Negative) 08/18/22 10:20 Ur Leukocyte Esterase Negative (Negative) 08/18/22 10:20 Vitals Last Vital Signs Temp 98.3 F 08/20/22 04:00 Pulse 75 08/20/22 05:09 Resp 20 H 08/20/22 04:00 BP 150/73 08/20/22 04:00 Pulse Ox 92 08/20/22 04:00 O2 Del Method Nasal Cannula 08/20/22 04:00 O2 Flow Rate 2 08/20/22 04:00 Discharge Plan Discharge Patient Disposition: Home Condition: Stable Prescriptions: New hydralazine 10 mg Tablet 10 mg PO TID PRN (Reason: sbp more than 160 mhg) Qty: 20 0RF Continued pantoprazole 40 mg tablet,delayed release (DR/EC) 40 mg PO QAM terazosin 10 mg capsule 10 mg PO BID acetaminophen [Tylenol Extra Strength] 500 mg tablet 1,000 mg PO Q6H PRN (Reason: Pain) Novolog FlexPen U-100 Insulin 100 unit/mL (3 mL) insulin pen See Rx Instructions .ROUTE .COMPLEX Qty: 15 0RF Rx Instructions: SLIDING SCALE Before or right after meals prn (DME) Diabetic Shoes See Rx Instructions .ROUTE .MEDSUPPLY Qty: 1 0RF Rx Instructions: As directed [employer] with 3 pairs of inserts (DME) Diabetic Shoes See Rx Instructions .ROUTE .MEDSUPPLY Qty: 1 0RF Rx Instructions: As directed By [employer] with 3 pairs of inserts magnesium oxide 400 mg magnesium capsule 400 mg PO BEDTIME rosuvastatin [Crestor] 10 mg tablet 10 mg PO BEDTIME sevelamer carbonate 800 mg tablet 800 mg PO TID Rx Instructions: must administer with a meal/food cholecalciferol (vitamin D3) 50 mcg (2,000 unit) capsule 50 mcg PO DAILY omega 4-btu-ifr-fish oil [Fish Oil] 1,000 mg (120 mg-180 mg) capsule 1 cap PO BID (DME) BIPAP and supplies See Rx Instructions .Route .MEDSUPPLY Qty: 1 0RF Rx Instructions: with 2L of oxygen when in use furosemide 40 mg tablet 80 mg PO BID levothyroxine 25 mcg Tablet 25 mcg PO QAM clopidogrel 75 mg tablet 75 mg PO BEDTIME Hold Instructions: Resume on 07/10/21. aspirin 81 mg tablet,delayed release (DR/EC) 81 mg PO QAM Hold Instructions: Resume on 07/07/21. Levemir FlexTouch U-100 Insuln 100 unit/mL (3 mL) insulin pen 20 unit SUBCUT BEDTIME cetirizine [Zyrtec] 10 mg Tablet 10 mg PO DAILY Lexapro 20 mg tablet 10 mg PO QAM allopurinol 100 mg Tablet 100 mg PO DAILY folic acid 0.8 mg Capsule 0.8 mg PO DAILY hydralazine 10 mg Tablet 10 mg PO QAM carvedilol 12.5 mg Tablet 12.5 mg PO QAM amlodipine 10 mg Tablet 10 mg PO BEDTIME nitroglycerin [Nitrostat] 0.4 mg Tablet, Sublingual 0.4 mg SUBLINGUAL Q5M PRN (Reason: Chest Pain) Rx Instructions: do not exceed 3 doses per episode losartan 100 mg tablet 100 mg PO BEDTIME Changed isosorbide mononitrate 60 mg Tablet Extended Release 24 Hr 60 mg PO BID Qty: 60 0RF Discharge Orders: Discharge Order (Routine); Ordered 08/20/22 Ordered By: Kaden Howell Referrals: Carlee Carreon DO [Primary Care Provider] - ([facility] has been contacted with your discharge information. They will conatct you with your appointment within 24 hours. If you have'nt heard from them in that yime frame. Please call ) Luciana Bergman FNP [Nurse Practitioner] - 2 weeks Patient Instructions: Hydralazine (By mouth), Heart Catheterization (DC), Chest Pain Stoplight, Opioid Safety, Post Angiogram Home Care Instructions Activity Restrictions/Additional Instructions: Dose of Imdur has been changed to 60 mg twice daily. Continue taking all your other blood pressure medications as before. You can take hydralazine 10 mg 3 times a day as needed for systolic blood pressure of more than 160 mmHg. Continue with dialysis session as before. Discharge Attestations Time Spent in Discharge Care*: greater than 30 min Specific Discharge Activities: educating patient, discussing with pcp/other providers, discussing with immigration case worker/social workers/dc planners, documenting/other paperwork and evaluating patient/reviewing data Status at Discharge: Cognitive status at discharge: cognitively intact , Behavioral status at discharge: cooperative , Functional status at discharge: independent ambulation , Overall status at discharge: patient is back to baseline Quality Metrics Clinical Quality Measures [ No reported AMI, CVA or VTE this stay] Coding Level of Care Code 31989 Total time (in minutes) for Discharge: 50 Diagnoses ESRD (end stage renal disease) N18.6
[2022-08-20] MEDS: terazosin 5 mg Capsule 10 MG PO (09:37)
[2022-08-20 11:10] LABS: Hepatitis B Core AB, Total Non-Reactive (Nonreactive); Hepatitis B Surface AB 258.5 (11.5-1000); Hepatitis B Surface Antigen Non-Reactive (Nonreactive)
[2022-08-20 14:05] LABS: Glucose Point of Care 107 mg/dL (70-110)
[2022-08-20] MEDS: heparin, porcine 1,000 unit/mL INJ 10 mL HE (15:10)
[2022-08-20 15:49] VITALS: BP 142/69; BP 160/72; PULSE 72; RESP 16; TEMP 37; TEMP 37.1
--- NOTE | 2022-08-20 16:21 | PC.NURSE ---
Addendum entered by PEACE James 08/20/22 16:23: Discharged at 16:10. Original Note: Patient given medications at bedside. IV removed. Patient given written and verbal education on discharge instructions, patient verbalized understanding. Patient taken out via wheelchair, left facility with sister in-law.
== END 2022-08-20 16:10 | disposition home or self-care (01) | DRG 280 ==
LOC: ER 07:22 → CSU 12:28
PROVIDERS: Hospitalist; Internal Medicine; Admitting Provider Internal Medicine; Emergency Provider Family Medicine; PCP Family Medicine; Visit Provider Student in an Organized Health Care Education/Training Program
PROC: 4A023N7 Measurement of Cardiac Sampling and Pressure, Left Heart, Percutaneous Approach (ICD-10-PCS; principal; 2022-08-19 08:00)
DX: I21.4 Non-ST elevation (NSTEMI) myocardial infarction (principal); N18.6 End stage renal disease; I13.2 Hypertensive heart and chronic kidney disease with heart failure and with stage 5 chronic kidney disease, or end stage renal disease; I50.32 Chronic diastolic (congestive) heart failure; E11.22 Type 2 diabetes mellitus with diabetic chronic kidney disease; I25.110 Atherosclerotic heart disease of native coronary artery with unstable angina pectoris; Z95.5 Presence of coronary angioplasty implant and graft; E78.5 Hyperlipidemia, unspecified; E03.9 Hypothyroidism, unspecified; I25.2 Old myocardial infarction; Z79.4 Long term (current) use of insulin; Z79.02 Long term (current) use of antithrombotics/antiplatelets; Z79.82 Long term (current) use of aspirin; G47.33 Obstructive sleep apnea (adult) (pediatric); Z86.73 Personal history of transient ischemic attack (TIA), and cerebral infarction without residual deficits; G89.29 Other chronic pain; M54.9 Dorsalgia, unspecified; D63.1 Anemia in chronic kidney disease
CPT/HCPCS: 12345; 36415; 36416; 71045; 74176; 80053; 81003; 82607; 82746; 82962; 83540; 83550; 83690; 83735; 84484; 85025; 85730; 86705; 86706; 87340; 90935; 93005; 93306; 93458; 96365; 96372; 96376; 99152; 99285; C1769; C1887; C1894; J0360; J1644; J1815; J2250; J3010; J7030; Q3014; Q9967

== ENCOUNTER 2022-08-23 02:12 | Emergency (ER) | payer OTHER, SELFPAY ==
[2022-08-23 02:12] VITALS: BP 181/74; PULSE 83; RESP 16; TEMP 36.9; O2SAT 91; BMI 35.9
--- NOTE | 2022-08-23 02:17 | CTR_ITS ---
PROCEDURE INFORMATION: Exam: CT Cervical Spine Without Contrast Exam date and time: 08/23/2022 2:37 AM Age: 72 years old Clinical indication: Injury or trauma; Fall; Blunt trauma; Patient HX: Patient rolled out of bed onto floor striking left side of head onto night stand. Takes daily plavix. TECHNIQUE: Imaging protocol: Computed tomography of the cervical spine without contrast. Radiation optimization: All CT scans at this facility use at least one of these dose optimization techniques: automated exposure control; mA and/or kV adjustment per patient size (includes targeted exams where dose is matched to clinical indication); or iterative reconstruction. REPORTING DATA: Count of CT and Cardiac NM exams in prior 12 months: This patient has received 2 known CTs and 0 known cardiac nuclear medicine studies in the 12 months prior to the current study. COMPARISON: CT head wo con* [id number] 08/23/2022 2:34 AM RADIATION DOSE METRICS: Total DLP (mGy-cm): 174.37 FINDINGS: Bones/joints: Moderate diffuse cervical degenerative change and DDD. No acute fracture. Normal alignment. No significant disc bulge or herniation. No severe spinal canal stenosis. No significant neural foraminal narrowing. Paranasal sinuses: Mild sinus mucosal thickening. Lungs: Lung apices are normal. Vasculature: Advanced diffuse vascular calcification noted. Soft tissues: Unremarkable. CT/CT cervical spin wo con* [id number] IMPRESSION: No acute findings.
--- NOTE | 2022-08-23 02:17 | XRR_ITS ---
PROCEDURE INFORMATION: Exam: XR Chest Exam date and time: 08/23/2022 2:22 AM Age: 72 years old Clinical indication: Injury or trauma; Fall; Blunt trauma (contusions or hematomas); Prior surgery; Surgery type: Coronary stent. Gb. Spinal fusion; Patient HX: Patient rolled out of bed onto floor striking left side of head onto night stand. Takes daily plavix. ; Additional info: Cp TECHNIQUE: Imaging protocol: Radiologic exam of the chest. Views: 1 view. COMPARISON: CR (CHEST, ) 08/18/2022 7:10 AM FINDINGS: Lungs: Low lung volumes with bibasilar atelectasis. Pleural spaces: No significant costophrenic angle blunting. No pneumothorax. Heart/Mediastinum: Heart size appears prominent but is likely exaggerated by the portable AP technique. Vasculature: Atherosclerotic tortuosity of the thoracic aorta. Bones/joints: Lower thoracic and lumbar spine stabilization posterior fusion rods in place. Soft tissues: Large body habitus. XR/XR chest 1V portable [id number] IMPRESSION: Low lung volumes with bibasilar atelectasis.
--- NOTE | 2022-08-23 02:17 | ECG_ITS ---
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 Measurements Intervals [place] Rate: 81 P: 27 CT: 271 QRS: -9 QRSD: 111 T: 32 QT: 363 QTc: 422 Interpretive Statements SINUS RHYTHM WITH FIRST DEGREE AV BLOCK POSSIBLE ANTERIOR MYOCARDIAL INFARCTION , OF INDETERMINATE AGE [30 ms Q WAVE IN V3/V4, OR R < 0.2 mV IN V4] Compared to ECG 08/18/2022 14:14:10 No significant changes Electronically Signed On 08-23-2022 11:00:21 CDT by Daryl Ashraf M.D. [email or web address]
--- NOTE | 2022-08-23 02:17 | CTR_ITS ---
PROCEDURE INFORMATION: Exam: CT Head Without Contrast Exam date and time: 08/23/2022 2:34 AM Age: 72 years old Clinical indication: Injury or trauma; Fall; Blunt trauma (contusions or hematomas); Patient HX: Patient rolled out of bed onto floor striking left side of head onto night stand. Takes daily plavix. TECHNIQUE: Imaging protocol: Computed tomography of the head without contrast. Radiation optimization: All CT scans at this facility use at least one of these dose optimization techniques: automated exposure control; mA and/or kV adjustment per patient size (includes targeted exams where dose is matched to clinical indication); or iterative reconstruction. REPORTING DATA: Count of CT and Cardiac NM exams in prior 12 months: This patient has received 2 known CTs and 0 known cardiac nuclear medicine studies in the 12 months prior to the current study. COMPARISON: CT head wo con* [id number] 09/01/2020 9:13 AM RADIATION DOSE METRICS: Total DLP (mGy-cm): 1117.58 FINDINGS: Brain: No focal hemorrhage or midline shift is identified. The ventricles and parenchyma show mild atrophy and chronic bicerebral white matter ischemic change. Cerebral ventricles: No ventriculomegaly or evidence of hydrocephalus. Paranasal sinuses: No evidence of acute sinusitis. Mild mucosal thickening in places. Mastoid air cells: Visualized mastoid air cells are well aerated. Bones/joints: No displaced skull fracture is noted. Soft tissues: Unremarkable. Vasculature: Diffuse vascular calcifications are present. CT/CT head wo con* [id number] IMPRESSION: 1. No acute intracranial abnormality. 2. Mild age-related changes.
--- NOTE | 2022-08-23 02:19 | W.ED.FALL ---
HPI - Fall General: Chief Complaint: Fall Stated Complaint: FALL Time Seen by Provider: 08/23/22 02:17 Source: patient and EMS Mode of arrival: EMS Limitations: no limitations History of Present Illness: 72-year-old male has a history of end-stage renal disease he gets dialysis Friday he did go he states that he believes he has nightmares at night and he had fell out of bed he had hit his left ear and head on dresser he states he has had pain along with left-sided neck and chest pain. He does have a small laceration to his left ear. Denies any shortness of breath no signs of any major injuries here. Associated symptoms-after fall: Reports chest pain, headache(s) and neck pain; Denies abdominal pain Review of Systems Const: Denies: fever(s), chills or body aches Eyes: Denies: blurry vision or eye discomfort ENMT: Denies: throat pain or dental pain Card: Reports: chest pain Resp: Denies: dyspnea GI: Denies: abdominal pain, nausea, vomiting or diarrhea : Denies: dysuria Musc: Reports: neck pain; Denies: back pain Skin/Breast: Denies: rash Neuro: Reports: headache(s) Psych: Denies: depression Jermain/Lymph: Denies: easy bruising All/Imm: Denies: urticaria PFSH ED PFSH: Medical History Acute kidney injury superimposed on CKD Anemia CAD (coronary artery disease) Cardiac enzymes elevated Carotid stenosis, bilateral Chest pain Chronic back pain Chronic kidney disease Chronic kidney disease (CKD) stage G5/A1, glomerular filtration rate (GFR) less than or equal to 15 mL/min/1.73 square meter and albuminuria creatinine ratio less than 30 mg/g Congestive 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 CVA (cerebral vascular accident) Diabetes 1.5, 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 Dyslipidemia ESRD (end stage renal disease) Essential hypertension Hemodialysis access site with arteriovenous graft History of 2019 novel coronavirus disease (COVID-19) Hypothyroidism NSTEMI (non-ST elevated myocardial infarction) KAITLYNN (obstructive sleep apnea) Paget's disease Surgical History History of esophagogastroduodenoscopy (EGD) 10 yrs ago Hx of cholecystectomy Previous back surgery S/P angioplasty with stent S/P cataract extraction S/P hemodialysis catheter insertion Family History Mother CAD (coronary artery disease) Stroke Sister Hypertension Social History Smoking and tobacco status: never smoked Alcohol intake: never Substance/Drug Use: never Household members: spouse Marital status: service: Yes branch: [employer] Current occupational status: employed Current occupation: [employer] Current gender identity: Male Physical Exam Const: COMMON NORMALS: no acute distress and patient oriented x3 HENMT: COMMON NORMALS: normocephalic and atraumatic HEAD & SCALP: normocephalic and atraumatic OTHER: Superficial 1 cm laceration to left upper ear Eye: COMMON NORMALS: Equal, round and reactive pupils present and EOMs intact bilaterally PUPIL: Yes Equal, round and reactive pupils present Neck/C-Spine: COMMON NORMALS: full ROM and supple OTHER: Left-sided neck tenderness no midline tenderness Chest: COMMONS NORMALS: normal inspection of the chest OTHER: Slight tenderness of left chest Resp: COMMON NORMALS: normal respiratory effort, No retractions, No use of accessory muscles and clear to auscultation bilaterally AUSCULTATION: clear to auscultation bilaterally Cardio: COMMON NORMALS: regular rate, regular rhythm and No murmurs present (Cardio) RATE: regular rate RHYTHM: regular rhythm GI: COMMON NORMALS: Normal to inspection, nondistended, normoactive bowel sounds present, Soft to palpation, non-tender and no masses PALPATION: Yes Soft to palpation Extremity: COMMON NORMALS: normal to inspection and full ROM Neuro: COMMON NORMALS: patient oriented x3, moves all extremities and no focal motor deficits Psych: COMMON NORMALS: mental status grossly normal, Normal thought process present and cooperative THOUGHT PROCESS: Normal thought process present Skin: COMMON NORMALS: no rashes or lesions noted and no wounds GENERAL SKIN EXAM: no rashes or lesions noted Procedures Laceration Laceration 1: Site: other (ear) Side (If applicable): left Size (cm): 1 Description: linear Depth: simple, single layer Pre-repair: wound explored and irrigated extensively Skin layer closed with: other (dermabond) Course Vital Signs: Vital signs: Vital Signs Temperature 98.4 F 08/23/22 02:12 Pulse Rate 83 08/23/22 02:12 Respiratory Rate 16 08/23/22 02:12 Blood Pressure 181/74 08/23/22 02:12 Pulse Oximetry 91 08/23/22 02:12 Oxygen Delivery Me thod Room Air 08/23/22 02:12 MDM - Fall Medical Decision Making Patient presents here with a head injury along with an ear laceration was able to repair the laceration with tissue adhesive some chest wall pain likely from his fall no signs of cardiac in origin he just had a cardiac cath 4 days ago that was normal EKG chest x-ray are normal his CTs here are normal as well he is stable for discharge she is to follow-up with PCP and return if worsening. Medical Records I reviewed the patient's medical records. Lab Data I reviewed the patient's lab results. Radiology Impressions Cervical Spine CT 08/23/22 02:17 IMPRESSION: No acute findings. Chest X-Ray 08/23/22 02:17 IMPRESSION: Low lung volumes with bibasilar atelectasis. Head CT 08/23/22 02:17 IMPRESSION: 1. No acute intracranial abnormality. 2. Mild age-related changes. Laboratory Results POC Glucose 284 mg/dL (70-110) H 08/23/22 02:31 EKG Data EKG 1: I personally reviewed and interpreted this EKG as follows: EKG interpretation date: 08/23/22 EKG interpretation time: 02:19 Interpretation: nsr hr [address] or t wave abnormalities qrs 111 qtc 400 Discharge Plan Discharge Patient Disposition: Home Clinical Impression: Fall, Closed head injury, Laceration of ear Condition: Stable Prescriptions: No Action pantoprazole 40 mg tablet,delayed release (DR/EC) 40 mg PO QAM terazosin 10 mg capsule 10 mg PO BID acetaminophen [Tylenol Extra Strength] 500 mg tablet 1,000 mg PO Q6H PRN (Reason: Pain) Novolog FlexPen U-100 Insulin 100 unit/mL (3 mL) insulin pen See Rx Instructions .ROUTE .COMPLEX Qty: 15 0RF Rx Instructions: SLIDING SCALE Before or right after meals prn (DME) Diabetic Shoes See Rx Instructions .ROUTE .MEDSUPPLY Qty: 1 0RF Rx Instructions: As directed J P & O with 3 pairs of inserts (DME) Diabetic Shoes See Rx Instructions .ROUTE .MEDSUPPLY Qty: 1 0RF Rx Instructions: As directed By [employer] P [employer] with 3 pairs of inserts magnesium oxide 400 mg magnesium capsule 400 mg PO BEDTIME rosuvastatin [Crestor] 10 mg tablet 10 mg PO BEDTIME sevelamer carbonate 800 mg tablet 800 mg PO TID Rx Instructions: must administer with a meal/food cholecalciferol (vitamin D3) 50 mcg (2,000 unit) capsule 50 mcg PO DAILY omega 5-lrl-bav-fish oil [Fish Oil] 1,000 mg (120 mg-180 mg) capsule 1 cap PO BID (DME) BIPAP and supplies See Rx Instructions .Route .MEDSUPPLY Qty: 1 0RF Rx Instructions: with 2L of oxygen when in use furosemide 40 mg tablet 80 mg PO BID levothyroxine 25 mcg Tablet 25 mcg PO QAM clopidogrel 75 mg tablet 75 mg PO BEDTIME Hold Instructions: Resume on 07/10/21. aspirin 81 mg tablet,delayed release (DR/EC) 81 mg PO QAM Hold Instructions: Resume on 07/07/21. Levemir FlexTouch U-100 Insuln 100 unit/mL (3 mL) insulin pen 20 unit SUBCUT BEDTIME cetirizine [Zyrtec] 10 mg Tablet 10 mg PO DAILY Lexapro 20 mg tablet 10 mg PO QAM allopurinol 100 mg Tablet 100 mg PO DAILY folic acid 0.8 mg Capsule 0.8 mg PO DAILY hydralazine 10 mg Tablet 10 mg PO TID PRN (Reason: sbp more than 160 mhg) Qty: 20 0RF isosorbide mononitrate 60 mg Tablet Extended Release 24 Hr 60 mg PO BID Qty: 60 0RF hydralazine 10 mg Tablet 10 mg PO QAM carvedilol 12.5 mg Tablet 12.5 mg PO QAM amlodipine 10 mg Tablet 10 mg PO BEDTIME nitroglycerin [Nitrostat] 0.4 mg Tablet, Sublingual 0.4 mg SUBLINGUAL Q5M PRN (Reason: Chest Pain) Rx Instructions: do not exceed 3 doses per episode losartan 100 mg tablet 100 mg PO BEDTIME Discharge Orders: Discharge ED (Routine); Ordered 08/23/22 Ordered By: Tino Ignacio Referrals: Carlee Carreon DO [Primary Care Provider] - 1-3 days Discharge Diet: Advance as tolerated Discharge Activity: Resume usual activity Patient Instructions: Head Injury (ED), Skin Adhesive Care (ED) Coding Level of Care Code 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
[2022-08-23 02:35] LABS: Glucose Point of Care 284 mg/dL (70-110)
[2022-08-23 03:25] VITALS: BP 174/77; PULSE 85; RESP 18; O2SAT 93
== END 2022-08-23 04:13 | disposition home or self-care (01) ==
PROVIDERS: Emergency Provider Emergency Medicine; PCP Family Medicine
DX: S09.8XXA Other specified injuries of head, initial encounter (principal); S01.312A Laceration without foreign body of left ear, initial encounter; Z79.82 Long term (current) use of aspirin; Z79.02 Long term (current) use of antithrombotics/antiplatelets; Z79.4 Long term (current) use of insulin; I25.10 Atherosclerotic heart disease of native coronary artery without angina pectoris; I13.2 Hypertensive heart and chronic kidney disease with heart failure and with stage 5 chronic kidney disease, or end stage renal disease; E13.22 Other specified diabetes mellitus with diabetic chronic kidney disease; N18.6 End stage renal disease; I50.9 Heart failure, unspecified; Z86.73 Personal history of transient ischemic attack (TIA), and cerebral infarction without residual deficits; E78.5 Hyperlipidemia, unspecified; I25.2 Old myocardial infarction; Z99.2 Dependence on renal dialysis; W06.XXXA Fall from bed, initial encounter
CPT/HCPCS: 12011; 36416; 70450; 71045; 72125; 82962; 93005; 99284

== ENCOUNTER → 2022-09-06 10:58 | Outpatient (BNVA) | payer OTHER, SELFPAY | PROVIDERS: PCP Family Medicine; Visit Provider Internal Medicine | DX: I25.10 Atherosclerotic heart disease of native coronary artery without angina pectoris (principal); E78.5 Hyperlipidemia, unspecified; R53.83 Other fatigue; R06.00 Dyspnea, unspecified; I13.2 Hypertensive heart and chronic kidney disease with heart failure and with stage 5 chronic kidney disease, or end stage renal disease; E13.22 Other specified diabetes mellitus with diabetic chronic kidney disease; N18.5 Chronic kidney disease, stage 5; I50.9 Heart failure, unspecified; Z99.2 Dependence on renal dialysis; Z79.4 Long term (current) use of insulin | CPT/HCPCS: 99214 ==

== ENCOUNTER → 2022-09-20 11:53 | Outpatient (BNVA) | payer MEDICARE, SELFPAY | PROVIDERS: PCP Family Medicine; Visit Provider Family Medicine | DX: E11.9 Type 2 diabetes mellitus without complications (principal) | CPT/HCPCS: 83036 ==

== ENCOUNTER 2022-09-23 10:43 | Outpatient (CLI) | payer MEDICARE, SELFPAY ==
--- NOTE | 2022-09-23 11:00 | USCV_ITS ---
Eliazar Hogan Age: 72 Gender: M : 1950 Exam Date: 09/23/2022 10:58 Ordering Phys: Daryl Ashraf M.D ([email or web address]) Technologist: Mignon Vaca Exam Location: [facility] [place] Indication: carotid stenosis Risk Factors: Smoker Previous Vascular Surgery: None Right Brachial BP: / Left Brachial BP: / Right Left Velocity (cm/s) Spectral Plaque Velocity (cm/s) Spectral Plaque Syst/Diast Broadening Syst/Diast Broadening 78.30/ 11.00 Prox CCA 78.30 / 15.40 94.80/ 9.90 Tejas Mid CCA 59.80 / 6.80 Hetro 132.30/13.20 Tejas Distal CCA 58.10 / 7.70 Tejas 160.10/19.80 Tejas Prox ICA 108.80/ 28.00 Tejas 132.80/18.40 Mid ICA 225.20/ 28.10 Hetro 74.90/ 22.30 Distal ICA 162.70/ 21.90 193.00 ECA 216.50 1.21 ICA/CCA 2.88 Antegrade Vertebral Antegrade 65.80/ 14.50 cm/s 88.60/ 18.60 cm/s Tri Subclavian Tri 152.2 190.0 0 5 FINDINGS Velocities progressed since 2019 CONCLUSIONS Right ICA stenosis 50-69%. Moderate atheromatous plaque right carotid bulb/ICA. Left ICA stenosis 70-99% at the lower end of the range in the mid ICA with advanced calcified atheromatous disease. Recommend CTA. Moderate calcfied plaque in both CCA's Normal antegrade Doppler flow noted in the right vertebral artery. Normal antegrade Doppler flow noted in the left vertebral artery. David Gomez MD (Electronically Signed) Final Date: 23 September 2022 12:28 S
== END 2022-09-23 10:44 | disposition home or self-care (01) ==
LOC: RAD 10:46
PROVIDERS: PCP Family Medicine; Visit Provider Internal Medicine
DX: I65.23 Occlusion and stenosis of bilateral carotid arteries (principal)
CPT/HCPCS: 93880

== ENCOUNTER 2022-10-09 15:17 | Outpatient (CLI) | payer MEDICARE, SELFPAY ==
--- NOTE | 2022-10-09 16:00 | CT_ITS ---
WS: [id number] CTA NECK TECHNIQUE: Contrast enhanced CTA of the neck with coronal and sagittal reformatted images and maximum intensity projection (MIP) images. NASCET criteria utilized. CLINICAL INFORMATION: bilateral carotid stenosis COMPARISON: None. DLP: 291.[address] scans at [facility] use at least one of these dose optimization techniques: automated e xposure control; mA and/or kV adjustment per patient size (includes targeted exams where dose is matc hed to clinical indication); or iterative reconstruction. FINDINGS: RIGHT: RIGHT common carotid artery is patent. Mild calcified atheromatous plaque RIGHT carotid bulb e xtending into the ICA. Less than 50% ICA stenosis. ICA is patent to the skull base. LEFT: LEFT common carotid artery is patent. Moderate calcified atheromatous plaque LEFT carotid bulb extending into the ICA. LEFT ICA stenosis measures 68%. LEFT ICA is patent to the skull base. Codominant and patent vertebral arteries bilaterally. Vertebral arteries are patent to the basilar ju nction. Basilar artery is patent. Moderate cavernous carotid calcification. Proximal la posta of [place] appears patent. Moderate spondylitic changes cervical spine with disc osteophyte complexes C3-C7 with mild to moderat e central canal stenosis C3-C4 C4-C5 C5-C6 and C6-C7. Slight anterolisthesis C2 on C3. Low-attenuation LEFT thyroid nodule measuring 11.5 mm. Mastoid air cells are well aerated. Paranasal sinuses are well aerated. Mild mucosal thickening RIGHT maxillary sinus. Small retention cyst LEFT sp henoid sinus measuring 1.5 CM. Normal posterior nasopharynx and parapharyngeal fat. CT/CT angio neck [id number] IMPRESSION: 1. No significant RIGHT ICA stenosis. RIGHT ICA is patent to the skull base. 2. Moderate calcified atheromatous plaque LEFT carotid bulb extending into the ICA stenosis measuring approximately 68%. LEFT ICA remains patent to the skull base. 3. Codominant and patent vertebral arteries bilaterally. Proximal basilar germain ry is patent. 4. Central canal stenosis described above in the cervical spine. This could b e further evaluated with cervical spine MRI.
[2022-10-09] MEDS: iohexol 350 mg/mL 500 mL Btl (per mL) IV (16:33)
== END 2022-10-09 15:18 | disposition home or self-care (01) ==
PROVIDERS: PCP Family Medicine; Visit Provider Internal Medicine
DX: I65.23 Occlusion and stenosis of bilateral carotid arteries (principal); M48.02 Spinal stenosis, cervical region
CPT/HCPCS: 70498; Q9967

== ENCOUNTER → 2022-10-17 08:28 | Outpatient (BNVA) | payer MEDICARE, SELFPAY | PROVIDERS: PCP Family Medicine; Visit Provider Thoracic Surgery (Cardiothoracic Vascular Surgery) | DX: I65.23 Occlusion and stenosis of bilateral carotid arteries (principal); I13.2 Hypertensive heart and chronic kidney disease with heart failure and with stage 5 chronic kidney disease, or end stage renal disease; E13.22 Other specified diabetes mellitus with diabetic chronic kidney disease; N18.6 End stage renal disease; I50.9 Heart failure, unspecified; Z99.2 Dependence on renal dialysis; Z79.4 Long term (current) use of insulin | CPT/HCPCS: 99203 ==

== ENCOUNTER → 2022-10-29 07:25 | Outpatient (BNVA) | payer MEDICARE, SELFPAY | PROVIDERS: PCP Family Medicine; Visit Provider Podiatrist Foot & Ankle Surgery | DX: E11.9 Type 2 diabetes mellitus without complications (principal); L60.3 Nail dystrophy; I73.9 Peripheral vascular disease, unspecified; M20.41 Other hammer toe(s) (acquired), right foot; M20.42 Other hammer toe(s) (acquired), left foot; M21.41 Flat foot [pes planus] (acquired), right foot; M21.42 Flat foot [pes planus] (acquired), left foot; Z79.4 Long term (current) use of insulin | CPT/HCPCS: 11721 ==

== ENCOUNTER 2022-11-14 13:35 | Emergency (ER) | payer MEDICARE, SELFPAY ==
--- NOTE | 2022-11-14 13:36 | ECG_ITS ---
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 Measurements Intervals Bern Rate: 66 P: 38 CA: 292 QRS: 4 QRSD: 106 T: 3 QT: 429 QTc: 450 Interpretive Statements SINUS RHYTHM WITH FIRST DEGREE AV BLOCK WITH OCCASIONAL SUPRAVENTRICULAR PREMATURE COMPLEXES Compared to ECG 08/23/2022 02:19:49 Myocardial infarct finding no longer present Electronically Signed On 11-14-2022 23:39:23 CDT by Daryl Ashraf M.D. [id number]
--- NOTE | 2022-11-14 13:36 | XR_ITS ---
WS: [id number] EXAMINATION: XR chest 1V portable [id number] REASON FOR EXAM: chest pain COMPARISON: 08/23/2022 ORDER DATE: 11/14/2022 1:38 PM TECHNIQUE: A single, portable frontal chest x-ray was obtained. X-RAY FINDINGS: Lungs: Low lung volumes with bibasilar atelectasis. Pleural spaces: No significant costophrenic angle blunting. No pneumothorax. Heart/Mediastinum: Heart size appears prominent but is likely exaggerated by the portable AP technique. Vasculature: Atherosclerotic tortuosity of the thoracic aorta. Bones/joints: Lower thoracic and lumbar spine stabilization posterior fusion rods in place. Diffuse sclerotic change in the glenoid and coracoid processes of the right scapula un changed Soft tissues: Large body habitus. XR/XR chest 1V portable [id number] IMPRESSION: Low lung volumes with bibasilar atelectasis.
[2022-11-14 13:37] VITALS: BP 166/87; PULSE 63; RESP 18; TEMP 36.6; O2SAT 95; BMI 35.3
[2022-11-14 13:56] VITALS: BP 138/72; PULSE 64; RESP 18; O2SAT 90
[2022-11-14 14:02] LABS: Basophils # 0.1 10^3/uL (0.0-0.1); Basophils % 0.7 %; Eosinophils # 0.4 10^3/uL (0.0-0.8); Eosinophils % 3.7 %; Hematocrit 33.5 % (42.0-52.0); Hemoglobin 11.1 g/dL (11.7-16.6); Lymphocytes # 2.1 10^3/uL (0.8-4.8); Lymphocytes % 20.5 %; Mean Corpuscular HGB Conc 33.1 g/dL (30.0-36.0); Mean Corpuscular Hemoglobin 28.9 pg (28.0-34.0); Mean Corpuscular Volume 87.2 fl (80-94); Mean Platelet Volume 8.9 fL (7.4-10.4); Monocytes # 0.6 10^3/uL (0.2-0.9); Monocytes % 6.2 %; Neutrophils # 6.88 10^3/uL (1.8-7.7); Neutrophils % 68.2 %; Nucleated Red Blood Cells % 0 %; Platelet Count 218 10^3/cmm (130-400); Red Blood Count 3.84 10^6/uL (4.1-5.3); Red Cell Distribution Width 13.6 % (12.1-15.1); White Blood Count 10.1 10^3/uL (4.0-10.0)
--- NOTE | 2022-11-14 14:02 | W.ED.CHESTPA ---
HPI - Chest Pain General: Chief Complaint: Chest Pain Stated Complaint: chest pain Time Seen by Provider: 11/14/22 13:36 Source: patient Mode of arrival: EMS History of Present Illness: 72-year-old male with end-stage renal disease and history of coronary disease presents emergency room from dialysis clinic he was 2 hours into a 3-1/2 on arrival began to have chest discomfort get diaphoretic. He is well-documented coronary disease he was in the [employer] in late August. At that time there was no intervention done he had multiple stents overall noted to be patent. He was given aspirin and nitroglycerin at the clinic he is pain-free at this time. Previous angiography reports reviewed. MD complaint: chest pain Pertinent past history: coronary artery disease and prior MD Onset (ago): minute(s) Timing of current episode: episodic Prior episodes: Yes Onset: during rest Pain location: left chest Pain radiation: none Quality: aching and heaviness Relieving factors: nitroglycerin Associated symptoms: Reports dyspnea; Deny abdominal pain, diaphoresis, fever(s), leg edema, nausea, palpitations, sense of impending doom, syncope or vomiting Treatment prior to arrival: aspirin and nitroglycerin Review of Systems Const: Denies: fever(s), chills or diaphoresis Card: Reports: chest pain; Denies: palpitations or syncope Resp: Reports: dyspnea GI: Denies: abdominal pain, nausea or vomiting : Denies: flank pain, dysuria, urinary frequency or urinary urgency Skin/Breast: Denies: rash or pruritus PFSH ED PFSH: Medical History Acute kidney injury superimposed on CKD Anemia CAD (coronary artery disease) Cardiac enzymes elevated Carotid stenosis, bilateral Chest pain Chronic back pain Chronic kidney disease Chronic kidney disease (CKD) stage G5/A1, glomerular filtration rate (GFR) less than or equal to 15 mL/min/1.73 square meter and albuminuria creatinine ratio less than 30 mg/g Congestive 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 CVA (cerebral vascular accident) Diabetes 1.5, 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 Dyslipidemia ESRD (end stage renal disease) Essential hypertension Hemodialysis access site with arteriovenous graft History of 2019 novel coronavirus disease (COVID-19) Hypothyroidism NSTEMI (non-ST elevated myocardial infarction) KAITLYNN (obstructive sleep apnea) Paget's disease Surgical History History of esophagogastroduodenoscopy (EGD) 10 yrs ago Hx of cholecystectomy Previous back surgery S/P angioplasty with stent S/P cataract extraction S/P hemodialysis catheter insertion Family History Mother CAD (coronary artery disease) Stroke Sister Hypertension Social History Smoking and tobacco status: never smoked Alcohol intake: never Substance/Drug Use: never Household members: spouse Marital status: service: Yes branch: [employer] Current occupational status: employed Current occupation: [employer] Current gender identity: Male Physical Exam Const: GENERAL APPEARANCE: cooperative and comfortable ORIENTATION/CONSCIOUSNESS: Yes awake, Yes oriented to person, Yes oriented to place and Yes oriented to time HENMT: COMMON NORMALS: normocephalic, atraumatic and hearing grossly normal bilaterally HEAD & SCALP: normocephalic and atraumatic Resp: COMMON NORMALS: normal respiratory effort, No retractions, No use of accessory muscles and clear to auscultation bilaterally AUSCULTATION: clear to auscultation bilaterally Cardio: COMMON NORMALS: regular rate, regular rhythm and No murmurs present (Cardio) RATE: regular rate RHYTHM: regular rhythm GI: COMMON NORMALS: Soft to palpation and No hepatosplenomegaly present AUSCULTATION: Yes normoactive bowel sounds PALPATION: Yes Soft to palpation, No Tenderness to palpation present (GI), No Guarding due to palpation present (GI) and Yes No hepatosplenomegaly present Extremity: COMMON NORMALS: normal to inspection, capillary refill normal, no clubbing, cyanosis or edema, no calf tenderness and no pedal edema Neuro: SENSORIUM/ORIENTATION: Yes oriented to person, Yes oriented to place and Yes oriented to time Skin: COMMON NORMALS: no rashes or lesions noted GENERAL SKIN EXAM: no rashes or lesions noted Course Vital Signs: Vital signs: Vital Signs Temperature 97.9 F 11/14/22 13:37 Pulse Rate 64 11/14/22 13:56 Respiratory Rate 18 11/14/22 13:56 Blood Pressure 138/72 11/14/22 13:56 Pulse Oximetry 90 07/27/23 14:39 Oxygen Delivery Me thod Nasal Cannula 11/14/22 14:39 Oxygen Flow Rate 2 11/14/22 14:39 MDM - Chest Pain Medical Decision Making Discussed with cardiology on-call. Labs and imaging reviewed patient is asymptomatic at this time he is not having any symptoms he is at his baseline O2 sat he is no longer using oxygen. Cardiology on-call reviewed they did not feel medication adjustments were needed at this time they recommend follow-up in the office if he persists having symptoms I may consider adding Ranexa. Discharge patient home return to cardiology clinic next week return to the ER if has any new or concerning symptoms. Medical Records I reviewed the patient's medical records. Lab Data I reviewed the patient's lab results. 11/14/22 13:50 11/14/22 13:50 Radiology Impressions Chest X-Ray 11/14/22 13:36 IMPRESSION: Low lung volumes with bibasilar atelectasis. Laboratory Results WBC 10.1 10^3/uL (4.0-10.0) H 11/14/22 13:50 RBC 3.84 10^6/uL (4.1-5.3) L 11/14/22 13:50 Hgb 11.1 g/dL (11.7-16.6) L 11/14/22 13:50 Hct 33.5 % (42.0-52.0) L 11/14/22 13:50 MCV 87.2 fl (80-94) 11/14/22 13:50 MCH 28.9 pg (28.0-34.0) 11/14/22 13:50 MCHC 33.1 g/dL (30.0-36.0) 11/14/22 13:50 RDW 13.6 % (12.1-15.1) 11/14/22 13:50 Plt Count 218 10^3/cmm (130-400) 11/14/22 13:50 MPV 8.9 fL (7.4-10.4) 11/14/22 13:50 Neut % (Auto) 68.2 % 11/14/22 13:50 Lymph % (Auto) 20.5 % 11/14/22 13:50 [place] % (Auto) 6.2 % 11/14/22 13:50 Eos % (Auto) 3.7 % 11/14/22 13:50 Baso % (Auto) 0.7 % 11/14/22 13:50 Neut # (Auto) 6.88 10^3/uL (1.8-7.7) 11/14/22 13:50 Lymph # (Auto) 2.1 10^3/uL (0.8-4.8) 11/14/22 13:50 [place] # (Auto) 0.6 10^3/uL (0.2-0.9) 11/14/22 13:50 Eos # (Auto) 0.4 10^3/uL (0.0-0.8) 11/14/22 13:50 Baso # (Auto) 0.1 10^3/uL (0.0-0.1) 11/14/22 13:50 Nucleated RBC % (auto) 0 % 11/14/22 13:50 Nucleated RBCs # 0.0 /100WBC 11/14/22 13:50 Sodium 136 mmol/L (136-145) 11/14/22 13:50 Potassium 3.9 mmol/L (3.5-5.1) 11/14/22 13:50 Chloride 94 mmol/L (98-107) L 11/14/22 13:50 Carbon Dioxide 31 mmol/L (22-29) H 11/14/22 13:50 Anion Gap 14.9 (5-19) 11/14/22 13:50 BUN 18 mg/dL (8-23) 11/14/22 13:50 Creatinine 2.7 mg/dL (0.7-1.2) H 11/14/22 13:50 GFR Calculation Not Reportable 11/14/22 13:50 Glucose 235 mg/dL (65-115) H 11/14/22 13:50 Calculated Osmolality 291 mOsm/kg (285-295) 11/14/22 13:50 Calcium 9.0 mg/dL (8.5-10.5) 11/14/22 13:50 Total Bilirubin 0.3 mg/dL (0.15-1.2) 11/14/22 13:50 AST 11 U/L (0-40) 11/14/22 13:50 ALT 10 U/L (0-41) 11/14/22 13:50 Alkaline Phosphatase 201 U/L (40-130) H 11/14/22 13:50 Troponin T Baseline 109 ng/L (0-15) H* 11/14/22 13:50 Troponin T 120 Minute 93.38 ng/L (0-15) H 11/14/22 16:06 Delta Troponin T -15.62 ABS# (0-10) L 11/14/22 16:06 Total Protein 6.8 g/dL (6.6-8.7) 11/14/22 13:50 Albumin 4.2 g/dL (3.5-5.2) 11/14/22 13:50 Globulin 2.6 g/dL (1.3-4.6) 11/14/22 13:50 Discharge Plan Discharge Patient Disposition: Home Clinical Impression: Angina at rest, CAD (coronary artery disease), T2DM (type 2 diabetes mellitus) Condition: Stable Prescriptions: No Action pantoprazole 40 mg tablet,delayed release (DR/EC) 40 mg PO QAM terazosin 10 mg capsule 10 mg PO BID acetaminophen [Tylenol Extra Strength] 500 mg tablet 1,000 mg PO Q6H PRN (Reason: Pain) Novolog FlexPen U-100 Insulin 100 unit/mL (3 mL) insulin pen See Rx Instructions .ROUTE .COMPLEX Qty: 15 0RF Rx Instructions: SLIDING SCALE Before or right after meals prn (DME) Diabetic Shoes See Rx Instructions .ROUTE .MEDSUPPLY Qty: 1 0RF Rx Instructions: As directed J P & O with 3 pairs of inserts (DME) Diabetic Shoes See Rx Instructions .ROUTE .MEDSUPPLY Qty: 1 0RF Rx Instructions: As directed By J P & O with 3 pairs of inserts magnesium oxide 400 mg magnesium capsule 400 mg PO BEDTIME rosuvastatin [Crestor] 10 mg tablet 10 mg PO BEDTIME irbesartan 300 mg tablet 300 mg PO BEDTIME sevelamer carbonate 800 mg tablet 1,600 mg PO BID Rx Instructions: must administer with a meal/food cholecalciferol (vitamin D3) 50 mcg (2,000 unit) capsule 50 mcg PO BEDTIME omega 9-vjv-pas-fish oil [Fish Oil] 1,000 mg (120 mg-180 mg) capsule 2 cap PO BID (DME) BIPAP and supplies See Rx Instructions .Route .MEDSUPPLY Qty: 1 0RF Rx Instructions: with 2L of oxygen when in use levothyroxine 25 mcg Tablet 25 mcg PO QAM clopidogrel 75 mg tablet 75 mg PO BEDTIME Hold Instructions: Resume on 07/10/21. aspirin 81 mg tablet,delayed release (DR/EC) 81 mg PO QAM Hold Instructions: Resume on 07/07/21. Levemir FlexTouch U-100 Insuln 100 unit/mL (3 mL) insulin pen 20 unit SUBCUT BEDTIME cetirizine [Zyrtec] 10 mg Tablet 10 mg PO BID Lexapro 20 mg tablet 20 mg PO QAM isosorbide mononitrate 60 mg Tablet Extended Release 24 Hr 60 mg PO BID Qty: 60 0RF lidocaine-prilocaine 2.5-2.5 % cream See Rx Instructions .ROUTE .COMPLEX Rx Instructions: APPLY SMALL AMOUNT TO ACCESS SITE (AVF) 1 HOUR BEFORE DIALYSIS. COVER WITH OCCLUSIVE DRESSING (SARAN WRAP) Lasix 80 mg Tablet 80 mg PO BID allopurinol 300 mg Tablet 300 mg PO BEDTIME losartan 100 mg Tablet 100 mg PO BEDTIME folic acid 0.8 mg Capsule 0.4 mg PO BEDTIME hydralazine 10 mg tablet See Rx Instructions .ROUTE .COMPLEX Rx Instructions: 10mg po bid and may take extra tab if needed carvedilol 12.5 mg Tablet 12.5 mg PO QAM amlodipine 10 mg Tablet 10 mg PO BEDTIME nitroglycerin [Nitrostat] 0.4 mg Tablet, Sublingual 0.4 mg SUBLINGUAL Q5M PRN (Reason: Chest Pain) Rx Instructions: do not exceed 3 doses per episode Discharge Orders: Discharge ED (Routine); Ordered 11/14/22 Ordered By: Parish White Referrals: Carlee Carreon DO [Primary Care Provider] - Discharge Diet: Usual diet Discharge Activity: Resume usual activity Patient Instructions: Opioid Safety, Pain Management Activity Restrictions/Additional Instructions: You were seen today for chest pain and cardiac enzymes and EKG did not show any acute event. I discussed with cardiology after reviewing her chart they do not recommend any changes. Avoid strenuous activity contact cardiology clinic tomorrow for follow-up. Any worsening or recurrence of symptoms return to the emergency room. Continue to take all of your previously prescribed medications. Coding Level of Care Code ED Document Imaging Specialist for Silvestreg Alfredo
[2022-11-14 14:17] LABS: Alanine Aminotransferase 10 U/L (0-41); Albumin Level 4.2 g/dL (3.5-5.2); Alkaline Phosphatase 201 U/L (40-130); Anion Gap 14.9 (5-19); Aspartate Amino Transferase 11 U/L (0-40); Blood Urea Nitrogen 18 mg/dL (8-23); Carbon Dioxide 31 mmol/L (22-29); Chloride 94 mmol/L (98-107); Globulin 2.6 g/dL (1.3-4.6); Glucose 235 mg/dL (65-115); Osmolality Calculated 291 mOsm/kg (285-295); Potassium 3.9 mmol/L (3.5-5.1); Sodium 136 mmol/L (136-145); Total Bilirubin 0.3 mg/dL (0.15-1.2); Total Protein 6.8 g/dL (6.6-8.7)
[2022-11-14 14:24] LABS: Troponin(5th) Baseline 109 ng/L (0-15)
[2022-11-14 14:39] VITALS: O2SAT 90
--- NOTE | 2022-11-14 15:09 | PC.PHAR ---
pt states he takes care of his own medications-victoza 1.2mg daily written on 11/01/22 pt states not taking-pt states he takes the medications entered-[facility] what pt states he takes is correct with what they mail him
--- NOTE | 2022-11-14 15:31 | ECG_ITS ---
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 Measurements Intervals [place] Rate: 65 P: 205 [place]: 205 QRS: 8 QRSD: 105 T: 3 QT: 441 QTc: 462 Interpretive Statements ECTOPIC ATRIAL RHYTHM NONSPECIFIC T-WAVE ABNORMALITY Compared to ECG 11/14/2022 13:42:07 Ectopic atrial rhythm now present T-wave abnormality now present Sinus rhythm no longer present First degree AV block no longer present Electronically Signed On 11-14-2022 23:40:23 CDT by Daryl Ashraf M.D. [id number]
[2022-11-14 16:35] LABS: Troponin 5 2HR 93.38 ng/L (0-15); Troponin 5 2HR Delta -15.62 ABS# (0-10)
== END 2022-11-14 17:27 | disposition home or self-care (01) ==
PROVIDERS: Emergency Provider Family Medicine; PCP Family Medicine
DX: I25.118 Atherosclerotic heart disease of native coronary artery with other forms of angina pectoris (principal); E11.9 Type 2 diabetes mellitus without complications; Z79.82 Long term (current) use of aspirin; Z79.4 Long term (current) use of insulin; Z79.02 Long term (current) use of antithrombotics/antiplatelets; E11.22 Type 2 diabetes mellitus with diabetic chronic kidney disease; I13.2 Hypertensive heart and chronic kidney disease with heart failure and with stage 5 chronic kidney disease, or end stage renal disease; N18.6 End stage renal disease; I50.9 Heart failure, unspecified; Z86.73 Personal history of transient ischemic attack (TIA), and cerebral infarction without residual deficits; E78.5 Hyperlipidemia, unspecified; I25.2 Old myocardial infarction; Z99.2 Dependence on renal dialysis
CPT/HCPCS: 36415; 71045; 80053; 84484; 85025; 93005; 99285

== ENCOUNTER → 2022-12-30 12:15 | Outpatient (BNVA) | payer MEDICARE, SELFPAY | PROVIDERS: PCP Family Medicine; Visit Provider Family Medicine | DX: E11.9 Type 2 diabetes mellitus without complications (principal) | CPT/HCPCS: 83036 ==

== ENCOUNTER → 2023-01-28 08:19 | Outpatient (BNVA) | payer MEDICARE, SELFPAY | PROVIDERS: PCP Family Medicine; Visit Provider Podiatrist Foot & Ankle Surgery | DX: I73.9 Peripheral vascular disease, unspecified; M20.41 Other hammer toe(s) (acquired), right foot; M20.42 Other hammer toe(s) (acquired), left foot; L60.3 Nail dystrophy; M21.41 Flat foot [pes planus] (acquired), right foot; M21.42 Flat foot [pes planus] (acquired), left foot; N18.5 Chronic kidney disease, stage 5; E11.22 Type 2 diabetes mellitus with diabetic chronic kidney disease; Z79.4 Long term (current) use of insulin | CPT/HCPCS: 11721 ==

== ENCOUNTER 2023-02-08 13:23 | Emergency (ER) | payer MEDICARE, SELFPAY ==
[2023-02-08] VITALS (13 sets, daily range): BP systolic 161–191; BP diastolic 85–93; PULSE 76–79; RESP 18–22; TEMP 36.5; O2SAT 86–95; BMI 34.3
--- NOTE | 2023-02-08 13:26 | ECG_ITS ---
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 Measurements Intervals [place] Rate: 69 P: 0 [place]: 0 QRS: 10 QRSD: 102 T: 30 QT: 397 QTc: 427 Interpretive Statements SINUS RHYTHM WITH FIRST DEGREE AV BLOCK NONSPECIFIC T-WAVE ABNORMALITY ABNORMAL RHYTHM ECG Compared to ECG 11/14/2022 15:31:08 Ectopic atrial rhythm no longer present T-wave abnormality still present Electronically Signed On 02-10-2023 12:45:12 CDT by Tiara Bermeo M.D. [id number] f
--- NOTE | 2023-02-08 13:27 | XRR_ITS ---
PROCEDURE INFORMATION: Exam: XR Chest Exam date and time: 02/08/2023 1:37 PM Age: 72 years old Clinical indication: Chest pressure; Prior surgery; Surgery date: 6+ months; Patient HX: Chest pain; HTN; HX cardiac stents; Additional info: Chest chest pain; HTN; HX cardiac stents TECHNIQUE: Imaging protocol: Radiologic exam of the chest. Views: 1 view. COMPARISON: CR XR chest 1V portable [id number] 11/14/2022 2:08 PM FINDINGS: Lungs: Unremarkable. No consolidation. Pleural spaces: Unremarkable. No pleural effusion. No pneumothorax. Heart/Mediastinum: Borderline cardiac size. Vasculature: Mild arteriosclerosis of the thoracic aorta. Bones/joints: Chronic sclerotic changes medial to the right shoulder with prior exam. Partially visualized Gutierrez rods lower thoracic spine, chronic with prior exam. Mild old healed rib fracture of the 8th rib on the right. XR/XR chest 1V portable [id number] IMPRESSION: Single-view chest is without acute cardiopulmonary abnormality.
[2023-02-08 13:38] LABS: Basophils # 0.1 10^3/uL (0.0-0.1); Basophils % 0.6 %; Eosinophils # 0.6 10^3/uL (0.0-0.8); Eosinophils % 6.6 %; Hematocrit 35.5 % (37-53); Lymphocytes # 1.2 10^3/uL (0.8-4.8); Lymphocytes % 13.6 %; Mean Corpuscular HGB Conc 32.1 g/dL (30-55); Mean Corpuscular Hemoglobin 28.3 pg (27-33); Mean Corpuscular Volume 88.1 fl (82-101); Mean Platelet Volume 9.2 fL (7.4-10.4); Monocytes # 0.9 10^3/uL (0.2-0.9); Monocytes % 9.7 %; Neutrophils # 6.05 10^3/uL (1.8-7.7); Neutrophils % 68.9 %; Nucleated Red Blood Cells % 0 %; Platelet Count 202 10^3/cmm (157-399); Red Blood Count 4.03 10^6/uL (3.85-5.65); Red Cell Distribution Width 14.9 % (12.1-15.1); White Blood Count 8.77 10^3/uL (3.29-11.43)
--- NOTE | 2023-02-08 13:50 | W.ED.CHESTPA ---
HPI - Chest Pain General: Chief Complaint: Chest Pain Stated Complaint: CHEST PAIN Time Seen by Provider: 02/08/23 13:24 History of Present Illness: Patient presents to the ER with complaints of chest pain and shortness of breath. Patient stated that he was at dialysis when both of these started. Patient does not normally have any shortness of breath nor does he have oxygen at home. When he started at dialysis they gave him 3 baby aspirin and with his aspirin he takes daily. EMS has the patient on 4 L of oxygen upon arrival patient's saturation is in the upper 90s. Patient states he is now not having any chest pain at all but still short of breath. Patient said this chest pain did not radiate it was substernal and it was dull patient denies any nausea vomiting or diaphoresis. Patient does have a cough that has had for the last several days. 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 Dyslipidemia ESRD (end stage renal disease) Essential hypertension Hemodialysis access site with arteriovenous graft History of 2019 novel coronavirus disease (COVID-19) Hypothyroidism NSTEMI (non-ST elevated myocardial infarction) KAITLYNN (obstructive sleep apnea) Paget's disease Surgical History History of esophagogastroduodenoscopy (EGD) 10 yrs ago Hx of cholecystectomy Previous back surgery S/P angioplasty with stent S/P cataract extraction S/P hemodialysis catheter insertion Family History Mother CAD (coronary artery disease) Stroke Sister Hypertension Social History Smoking and tobacco/nicotine status: never used tobacco/nicotine Alcohol intake: never Substance/Drug Use: never Household members: spouse Marital status: service: Yes branch: [employer] Current occupational status: employed 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 Current gender identity: Male Physical Exam Const: COMMON NORMALS: no acute distress, average body habitus, patient oriented x3, no limitations, healthy appearing, alert and well nourished HENMT: COMMON NORMALS: normocephalic, atraumatic, hearing grossly normal bilaterally, external ears normal, Normal external nose present, moist oral mucous membranes and oropharynx normal HEAD & SCALP: normocephalic and atraumatic NOSE: Normal external nose present EXTERNAL EAR: Yes external ears normal Neck/C-Spine: COMMON NORMALS: full ROM, no lymphadenopathy, supple, no meningeal signs, no JVD and Thyroid normal THYROID: Thyroid normal Chest: COMMONS NORMALS: normal inspection of the chest and normal palpation of entire chest wall Resp: COMMON NORMALS: normal respiratory effort, No retractions, No use of accessory muscles and clear to auscultation bilaterally AUSCULTATION: clear to auscultation bilaterally Cardio: COMMON NORMALS: no JVD, regular rate, regular rhythm, S1 normal heart sound present, S2 normal heart sound present, No gallops present (Cardio), No clicks present (Cardio), No murmurs present (Cardio) and No rub (Cardio) RATE: regular rate RHYTHM: regular rhythm HEART SOUNDS: S1 normal heart sound present and S2 normal heart sound present GI: COMMON NORMALS: Normal to inspection, nondistended, normoactive bowel sounds present, Soft to palpation, non-tender, No hepatosplenomegaly present and no masses PALPATION: Yes Soft to palpation and Yes No hepatosplenomegaly present : COMMON NORMALS: Yes no CVA tenderness BLADDER/KIDNEY EXAM: Yes no CVA tenderness Back/Pelvis: COMMON NORMALS: no CVA tenderness Extremity: NARRATIVE EXTREMITY EXAM: Negative bilateral lower extremity edema Neuro: COMMON NORMALS: patient oriented x3 SENSORIUM/ORIENTATION: Yes alert MENINGEAL SIGNS: Yes no meningeal signs Course Vital Signs: Vital signs: Vital Signs Temperature 97.7 F 02/08/23 13:26 Pulse Rate 79 02/08/23 15:35 Respiratory Rate 22 H 02/08/23 15:35 Blood Pressure 173/85 02/08/23 15:35 Pulse Oximetry 91 02/08/23 17:40 Oxygen Flow Rate 2 02/08/23 17:40 MDM - Chest Pain Medical Decision Making Patient brought in for complaints of chest pain shortness of breath. Patient was worked up in normal cardiac fashion that included serial EKGs labs. Patient's labs were essentially benign for the patient did not show any acute cardiac process. However patient cannot be weaned off his oxygen. Patient required 2 L of oxygen his entire stay and also failed his home walking oxygen test and respiratory said he qualified for 2 L of oxygen. Patient be discharged home on 2 L. Differential Diagnosis Unlikely acute massive pulmonary embolism, acute respiratory failure, acute myocardial infarction, cardiac arrest or sudden cardiac Medical Records I reviewed the patient's medical records. Lab Data I reviewed the patient's lab results. 02/08/23 13:13 02/08/23 13:13 Radiology Impressions Chest X-Ray 02/08/23 13:27 IMPRESSION: Single-view chest is without acute cardiopulmonary abnormality. Laboratory Results WBC 8.77 10^3/uL (3.29-11.43) 02/08/23 13:13 RBC 4.03 10^6/uL (3.85-5.65) 02/08/23 13:13 Hgb 11.40 g/dL (11.27-16.99) 02/08/23 13:13 Hct 35.5 % (37-53) L 02/08/23 13:13 MCV 88.1 fl (82-101) 02/08/23 13:13 MCH 28.3 pg (27-33) 02/08/23 13:13 MCHC 32.1 g/dL (30-55) 02/08/23 13:13 RDW 14.9 % (12.1-15.1) 02/08/23 13:13 Plt Count 202 10^3/cmm (157-399) 02/08/23 13:13 MPV 9.2 fL (7.4-10.4) 02/08/23 13:13 Neut % (Auto) 68.9 % 02/08/23 13:13 Lymph % (Auto) 13.6 % 02/08/23 13:13 [place] % (Auto) 9.7 % 02/08/23 13:13 Eos % (Auto) 6.6 % 02/08/23 13:13 Baso % (Auto) 0.6 % 02/08/23 13:13 Neut # (Auto) 6.05 10^3/uL (1.8-7.7) 02/08/23 13:13 Lymph # (Auto) 1.2 10^3/uL (0.8-4.8) 02/08/23 13:13 [place] # (Auto) 0.9 10^3/uL (0.2-0.9) 02/08/23 13:13 Eos # (Auto) 0.6 10^3/uL (0.0-0.8) 02/08/23 13:13 Baso # (Auto) 0.1 10^3/uL (0.0-0.1) 02/08/23 13:13 Nucleated RBC % (auto) 0 % 02/08/23 13:13 Nucleated RBCs # 0.0 /100WBC 02/08/23 13:13 Sodium 136 mmol/L (136-145) 02/08/23 13:13 Potassium 4.0 mmol/L (3.5-5.1) 02/08/23 13:13 Chloride 92 mmol/L (98-107) L 02/08/23 13:13 Carbon Dioxide 33 mmol/L (22-29) H 02/08/23 13:13 Anion Gap 15.0 (5-19) 02/08/23 13:13 BUN 16 mg/dL (8-23) 02/08/23 13:13 Creatinine 2.7 mg/dL (0.7-1.2) H 02/08/23 13:13 GFR Calculation Not Reportable 02/08/23 13:13 Glucose 203 mg/dL (65-115) H 02/08/23 13:13 Calculated Osmolality 289 mOsm/kg (285-295) 02/08/23 13:13 Calcium 9.3 mg/dL (8.5-10.5) 02/08/23 13:13 Phosphorus 2.5 mg/dL (2.5-4.5) 02/08/23 13:13 Magnesium 2.0 mg/dL (1.7-2.3) 02/08/23 13:13 Total Bilirubin 0.4 mg/dL (0.15-1.2) 02/08/23 13:13 AST 13 U/L (0-40) 02/08/23 13:13 ALT 11 U/L (0-41) 02/08/23 13:13 Alkaline Phosphatase 199 U/L (40-130) H 02/08/23 13:13 Troponin T Baseline 105 ng/L (0-15) H* 02/08/23 13:13 Troponin T 120 Minute 96.26 ng/L (0-15) H 02/08/23 15:15 Delta Troponin T -8.74 ABS# (0-10) L 02/08/23 15:15 Total Protein 6.9 g/dL (6.6-8.7) 02/08/23 13:13 Albumin 4.1 g/dL (3.5-5.2) 02/08/23 13:13 Globulin 2.8 g/dL (1.3-4.6) 02/08/23 13:13 SARS-CoV-2 Ag (Rapid) negative (Negative) 02/08/23 13:33 All radiology interpretation(s) finalized by discharge EKG Data EKG 1: I personally reviewed and interpreted this EKG as follows: EKG interpretation date: 02/08/23 EKG interpretation time: 13:26 Prior EKG tracings: not available for review Interpretation: EKG shows ventricular rate 69 beats minute, QRS duration 102, QTc of 416, atrial fibrillation, nonspecific T wave abnormality, EKG 2: I personally reviewed and interpreted this EKG as follows: EKG interpretation date: 02/08/23 EKG interpretation time: 14:23 Prior EKG tracings: available for review Interpretation: EKG showed ventricular rate 72 bpm, RI interval 262, QRS duration 97, QTc of 400, sinus rhythm with first-degree AV block, nonspecific T wave abnormality Discharge Plan Discharge Patient Disposition: Home Clinical Impression: Non-cardiac chest pain, Hypoxia, SOB (shortness of breath) Condition: Stable Prescriptions: No Action pantoprazole 40 mg tablet,delayed release (DR/EC) 40 mg PO QAM terazosin 10 mg capsule 10 mg PO BID acetaminophen [Tylenol Extra Strength] 500 mg tablet 1,000 mg PO Q6H PRN (Reason: Pain) Novolog FlexPen U-100 Insulin 100 unit/mL (3 mL) insulin pen See Rx Instructions .ROUTE .COMPLEX Qty: 15 0RF Rx Instructions: SLIDING SCALE Before or right after meals prn (DME) Diabetic Shoes See Rx Instructions .ROUTE .MEDSUPPLY Qty: 1 0RF Rx Instructions: As directed [employer] P [employer] O with 3 pairs of inserts (DME) Diabetic Shoes See Rx Instructions .ROUTE .MEDSUPPLY Qty: 1 0RF Rx Instructions: As directed By [facility] [employer] with 3 pairs of inserts magnesium oxide 400 mg magnesium capsule 400 mg PO BEDTIME rosuvastatin [Crestor] 10 mg tablet 10 mg PO BEDTIME irbesartan 300 mg tablet 300 mg PO BEDTIME sevelamer carbonate 800 mg tablet 1,600 mg PO BID Rx Instructions: must administer with a meal/food cholecalciferol (vitamin D3) 50 mcg (2,000 unit) capsule 50 mcg PO BEDTIME omega 2-xbq-bmo-fish oil [Fish Oil] 1,000 mg (120 mg-180 mg) capsule 2 cap PO BID (DME) FreeStyle Inocencia 14 Day Sensor Kit See Rx Instructions .Route Qty: 1 0RF Rx Instructions: As directed ([facility]) FreeStyle Inocencia 14 Day [place] Misc See Rx Instructions .Route Qty: 1 0RF Rx Instructions: As directed ([facility]) BIPAP and supplies See Rx Instructions .Route .MEDSUPPLY Qty: 1 0RF Rx Instructions: with 2L of oxygen when in use levothyroxine 25 mcg Tablet 25 mcg PO QAM clopidogrel 75 mg tablet 75 mg PO BEDTIME Hold Instructions: Resume on 07/10/21. aspirin 81 mg tablet,delayed release (DR/EC) 81 mg PO QAM Hold Instructions: Resume on 07/07/21. Levemir FlexTouch U100 Insulin 100 unit/mL (3 mL) insulin pen 20 unit SUBCUT BEDTIME cetirizine [Zyrtec] 10 mg Tablet 10 mg PO BID Lexapro 20 mg tablet 20 mg PO QAM isosorbide mononitrate 60 mg Tablet Extended Release 24 Hr 60 mg PO BID Qty: 60 0RF lidocaine-prilocaine 2.5-2.5 % cream See Rx Instructions .ROUTE .COMPLEX Rx Instructions: APPLY SMALL AMOUNT TO ACCESS SITE (AVF) 1 HOUR BEFORE DIALYSIS. COVER WITH OCCLUSIVE DRESSING (SARAN WRAP) furosemide [Lasix] 80 mg Tablet 80 mg PO BID allopurinol 300 mg Tablet 300 mg PO BEDTIME losartan 100 mg Tablet 100 mg PO BEDTIME folic acid 0.8 mg Capsule 0.4 mg PO BEDTIME hydralazine 10 mg tablet See Rx Instructions .ROUTE .COMPLEX Rx Instructions: 10mg po bid and may take extra tab if needed carvedilol 12.5 mg Tablet 12.5 mg PO QAM amlodipine 10 mg Tablet 10 mg PO BEDTIME nitroglycerin [Nitrostat] 0.4 mg Tablet, Sublingual 0.4 mg SUBLINGUAL Q5M PRN (Reason: Chest Pain) Rx Instructions: do not exceed 3 doses per episode Discharge Orders: Discharge ED (Routine); Ordered 02/08/23 Ordered By: Gigi Bautista Other Ambulatory Orders: DME: Oxygen (Order) Location: None Selected Ordered By: Gigi Bautista Referrals: Carlee Carreon DO [Primary Care Provider] - 1 week Patient Instructions: Chest Pain - Noncardiac, Hypoxia (ED), Shortness of Breath (ED) Activity Restrictions/Additional Instructions: Please use your home oxygen at 2 L per nasal cannula at all times. Please follow-up with your family practice physician within the next 7 days for further evaluation and treatment. Coding Level of Care Code ED Tube Inspector for [place]
[2023-02-08 13:59] LABS: Alanine Aminotransferase 11 U/L (0-41); Albumin Level 4.1 g/dL (3.5-5.2); Alkaline Phosphatase 199 U/L (40-130); Aspartate Amino Transferase 13 U/L (0-40); Blood Urea Nitrogen 16 mg/dL (8-23); Calcium 9.3 mg/dL (8.5-10.5); Carbon Dioxide 33 mmol/L (22-29); Chloride 92 mmol/L (98-107); Globulin 2.8 g/dL (1.3-4.6); Glucose 203 mg/dL (65-115); Osmolality Calculated 289 mOsm/kg (285-295); Phosphorus 2.5 mg/dL (2.5-4.5); Sodium 136 mmol/L (136-145); Total Bilirubin 0.4 mg/dL (0.15-1.2); Total Protein 6.9 g/dL (6.6-8.7)
[2023-02-08 14:03] LABS: Troponin(5th) Baseline 105 ng/L (0-15)
[2023-02-08 14:23] LABS: SARS Covid-2 Antigen negative (Negative)
--- NOTE | 2023-02-08 14:23 | ECG_ITS ---
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 Measurements Intervals [place] Rate: 72 P: 27 [place]: 262 QRS: 10 QRSD: 97 T: 33 QT: 375 QTc: 413 Interpretive Statements SINUS RHYTHM WITH FIRST DEGREE AV BLOCK NONSPECIFIC T-WAVE ABNORMALITY Compared to ECG 11/14/2022 15:31:08 First degree AV block now present Ectopic atrial rhythm no longer present T-wave abnormality still present Electronically Signed On 02-09-2023 10:56:17 CDT by Tiara Bermeo M.D. [id number]
[2023-02-08 16:05] LABS: Troponin 5 2HR 96.26 ng/L (0-15)
[2023-02-08 16:07] LABS: Troponin 5 2HR Delta -8.74 ABS# (0-10)
== END 2023-02-08 18:54 | disposition home or self-care (01) ==
PROVIDERS: Emergency Provider Emergency Medicine; PCP Family Medicine
DX: R07.89 Other chest pain (principal); R09.02 Hypoxemia; R06.02 Shortness of breath; Z79.4 Long term (current) use of insulin; Z79.02 Long term (current) use of antithrombotics/antiplatelets; Z79.82 Long term (current) use of aspirin; Z11.52 Encounter for screening for COVID-19; I25.10 Atherosclerotic heart disease of native coronary artery without angina pectoris; E13.22 Other specified diabetes mellitus with diabetic chronic kidney disease; I13.2 Hypertensive heart and chronic kidney disease with heart failure and with stage 5 chronic kidney disease, or end stage renal disease; N18.6 End stage renal disease; I50.9 Heart failure, unspecified; E78.5 Hyperlipidemia, unspecified; I25.2 Old myocardial infarction; Z86.73 Personal history of transient ischemic attack (TIA), and cerebral infarction without residual deficits
CPT/HCPCS: 36415; 71045; 80053; 83735; 84100; 84484; 85025; 87426; 93005; 99285

== ENCOUNTER → 2023-02-12 12:42 | Outpatient (BNVA) | payer MEDICARE, SELFPAY | PROVIDERS: PCP Family Medicine; Visit Provider Dermatology | DX: D48.5 Neoplasm of uncertain behavior of skin (principal); L82.1 Other seborrheic keratosis; L91.8 Other hypertrophic disorders of the skin; L81.4 Other melanin hyperpigmentation; D18.01 Hemangioma of skin and subcutaneous tissue | CPT/HCPCS: 11102; 11200; 69100; 99203 ==

== ENCOUNTER 2023-02-18 10:11 | Emergency (ER) | payer MEDICARE, SELFPAY ==
--- NOTE | 2023-02-18 10:13 | ECG_ITS ---
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 Measurements Intervals [place] Rate: 59 P: 46 [place]: 269 QRS: 6 QRSD: 107 T: 32 QT: 433 QTc: 431 Interpretive Statements SINUS BRADYCARDIA WITH FIRST DEGREE AV BLOCK Compared to ECG 02/08/2023 14:23:43 Sinus rhythm no longer present T-wave abnormality no longer present Electronically Signed On 02-18-2023 12:20:52 CDT by Tiara Bermeo M.D. [id number] f
[2023-02-18 10:14] VITALS: BP 153/77; PULSE 61; TEMP 36.5; O2SAT 94; BMI 36.8
--- NOTE | 2023-02-18 10:23 | XRR_ITS ---
PROCEDURE INFORMATION: Exam: XR Chest Exam date and time: 02/18/2023 10:45 AM Age: 72 years old Clinical indication: Pain; Chest pressure; Prior surgery; Surgery date: 6+ months; Surgery type: Cardiac stents; Additional info: Dyspnea/cough TECHNIQUE: Imaging protocol: Radiologic exam of the chest. Views: 1 view. COMPARISON: CR (CHEST, ) 02/08/2023 1:37 PM FINDINGS: Lungs: Atelectasis both lung bases Pleural spaces: Unremarkable. No pleural effusion. No pneumothorax. Heart/Mediastinum: Cardiomegaly with mild congestion. Bones/joints: Postop surgical changes of the thoracolumbar junction XR/XR chest 1V portable [id number] IMPRESSION: Cardiomegaly with mild congestion
--- NOTE | 2023-02-18 10:24 | ED_ITS ---
HPI - Chest Pain General: Chief Complaint: Chest Pain Stated Complaint: chest pain Time Seen by Provider: 02/18/23 10:12 Source: patient Mode of arrival: EMS History of Present Illness: 70-year-old male presents emergency room with complaint of chest pain and weakness. He had substernal chest pain that was worse when he got up and included lightheadedness and dizziness as well. He gone to dialysis today because the symptoms did not start his dialysis run. He denies any fever sweats chills or productive cough no diarrhea. He still does make a small amount of urine. He did have associated shortness of breath and radiation of discomfort into the left arm MD complaint: chest pain Onset (ago): minute(s) Timing of current episode: episodic Prior episodes: Yes Onset: during rest Pain location: substernal and left chest Pain radiation: left arm Severity: mild Quality: tightness and aching Relieving factors: nothing Exacerbating factors: nothing Associated symptoms: Deny abdominal pain, diaphoresis, dyspnea, fever(s), leg edema, nausea, palpitations, sense of impending doom, syncope or vomiting Review of Systems Const: Denies: fever(s), chills or diaphoresis Card: Denies: chest pain, palpitations or syncope Resp: Denies: dyspnea GI: Denies: abdominal pain, nausea or vomiting : Denies: dysuria, urinary frequency or urinary urgency Musc: Denies: neck pain or back pain Skin/Breast: Denies: rash PFSH ED PFSH: Medical History Acute kidney injury superimposed on CKD Anemia CAD (coronary artery disease) Cardiac enzymes elevated Carotid stenosis, bilateral Chest pain Chronic back pain Chronic kidney disease Chronic kidney disease (CKD) stage G5/A1, glomerular filtration rate (GFR) less than or equal to 15 mL/min/1.73 square meter and albuminuria creatinine ratio less than 30 mg/g Congestive 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 CVA (cerebral vascular accident) Diabetes 1.5, 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 Dyslipidemia ESRD (end stage renal disease) Essential hypertension Hemodialysis access site with arteriovenous graft History of 2019 novel coronavirus disease (COVID-19) Hypothyroidism NSTEMI (non-ST elevated myocardial infarction) KAITLYNN (obstructive sleep apnea) Paget's disease Surgical History History of esophagogastroduodenoscopy (EGD) 10 yrs ago Hx of cholecystectomy Previous back surgery S/P angioplasty with stent S/P cataract extraction S/P hemodialysis catheter insertion Family History Mother CAD (coronary artery disease) Stroke Sister Hypertension Social History Smoking and tobacco/nicotine status: never used tobacco/nicotine Alcohol intake: never Substance/Drug Use: never Household members: spouse Marital status: service: Yes branch: [employer] Current occupational status: employed Current occupation: [employer] Current gender identity: Male Physical Exam Const: COMMON NORMALS: no acute distress GENERAL APPEARANCE: cooperative and comfortable ORIENTATION/CONSCIOUSNESS: Yes awake, Yes oriented to person, Yes oriented to place and Yes oriented to time HENMT: COMMON NORMALS: normocephalic, atraumatic and hearing grossly normal bilaterally HEAD & SCALP: normocephalic and atraumatic Resp: COMMON NORMALS: normal respiratory effort, No retractions, No use of accessory muscles and clear to auscultation bilaterally AUSCULTATION: clear to auscultation bilaterally Cardio: COMMON NORMALS: regular rate, regular rhythm and No murmurs present (Cardio) RATE: regular rate RHYTHM: regular rhythm GI: COMMON NORMALS: Soft to palpation and No hepatosplenomegaly present AUSCULTATION: Yes normoactive bowel sounds PALPATION: Yes Soft to palpation, No Tenderness to palpation present (GI), No Guarding due to palpation present (GI) and Yes No hepatosplenomegaly present OTHER: Chronic bruising of pannus of abdominal wall from multiple previous injections Extremity: COMMON NORMALS: normal to inspection, capillary refill normal, no clubbing, cyanosis or edema, no calf tenderness and no pedal edema OTHER: Fistula left forearm distally there is palpable thrill in the fistula. No sign of infection or ulceration Neuro: SENSORIUM/ORIENTATION: Yes oriented to person, Yes oriented to place and Yes oriented to time Skin: COMMON NORMALS: no rashes or lesions noted GENERAL SKIN EXAM: no rashes or lesions noted Course Vital Signs: Vital signs: Vital Signs Temperature 97.7 F 02/18/23 10:14 Pulse Rate 59 L 02/18/23 12:20 Respiratory Rate 17 02/18/23 12:20 Blood Pressure 138/67 02/18/23 12:20 Pulse Oximetry 94 02/18/23 12:20 Oxygen Delivery Me thod Nasal Cannula 02/18/23 12:20 Oxygen Flow Rate 2 02/18/23 12:20 MDM - Chest Pain Medical Decision Making No acute EKG changes no ST elevation, troponins trending a little lower than his norm still elevated due to his chronic renal disease but the delta was negative. He is not having any symptoms time other than some dizziness. He did have a an angiogram earlier this year showed with multivessel disease but there is nothing intervenable the time the recommendation from cardiology was to maximize medical management. Dr. Rashid who did his angiogram earlier this year is instrumentation specialist. Discussed with him, he concurs with starting Ranexa 500 twice daily continue his other medications and rechecking next week at his regular visit. If he has any worsening or change symptoms return to the emergency room. Medical Records I reviewed the patient's medical records. Lab Data I reviewed the patient's lab results. 02/18/23 10:45 02/18/23 10:45 Radiology Impressions Chest X-Ray 02/18/23 10:23 IMPRESSION: Cardiomegaly with mild congestion Laboratory Results WBC 10.67 10^3/uL (3.29-11.43) 02/18/23 10:45 RBC 3.95 10^6/uL (3.85-5.65) 02/18/23 10:45 Hgb 11.30 g/dL (11.27-16.99) 02/18/23 10:45 Hct 35.6 % (37-53) L 02/18/23 10:45 MCV 90.1 fl (82-101) 02/18/23 10:45 MCH 28.6 pg (27-33) 02/18/23 10:45 MCHC 31.7 g/dL (30-55) 02/18/23 10:45 RDW 15.4 % (12.1-15.1) H 02/18/23 10:45 Plt Count 238 10^3/cmm (157-399) 02/18/23 10:45 MPV 8.7 fL (7.4-10.4) 02/18/23 10:45 Neut % (Auto) 76.5 % 02/18/23 10:45 Lymph % (Auto) 12.2 % 02/18/23 10:45 [place] % (Auto) 5.2 % 02/18/23 10:45 Eos % (Auto) 4.1 % 02/18/23 10:45 Baso % (Auto) 1.0 % 02/18/23 10:45 Neut # (Auto) 8.15 10^3/uL (1.8-7.7) H 02/18/23 10:45 Lymph # (Auto) 1.3 10^3/uL (0.8-4.8) 02/18/23 10:45 [place] # (Auto) 0.6 10^3/uL (0.2-0.9) 02/18/23 10:45 Eos # (Auto) 0.4 10^3/uL (0.0-0.8) 02/18/23 10:45 Baso # (Auto) 0.1 10^3/uL (0.0-0.1) 02/18/23 10:45 Nucleated RBC % (auto) 0 % 02/18/23 10:45 Nucleated RBCs # 0.0 /100WBC 02/18/23 10:45 Sodium 135 mmol/L (136-145) L 02/18/23 10:45 Potassium 4.9 mmol/L (3.5-5.1) 02/18/23 10:45 Chloride 93 mmol/L (98-107) L 02/18/23 10:45 Carbon Dioxide 28 mmol/L (22-29) 02/18/23 10:45 Anion Gap 18.9 (5-19) 02/18/23 10:45 BUN 42 mg/dL (8-23) H 02/18/23 10:45 Creatinine 4.9 mg/dL (0.7-1.2) H 02/18/23 10:45 GFR Calculation Not Reportable 02/18/23 10:45 Glucose 412 mg/dL (65-115) H 02/18/23 10:45 Calculated Osmolality 308 mOsm/kg (285-295) H 02/18/23 10:45 Calcium 9.9 mg/dL (8.5-10.5) 02/18/23 10:45 Total Bilirubin 0.3 mg/dL (0.15-1.2) 02/18/23 10:45 AST 11 U/L (0-40) 02/18/23 10:45 ALT 14 U/L (0-41) 02/18/23 10:45 Alkaline Phosphatase 193 U/L (40-130) H 02/18/23 10:45 Troponin T Baseline 100 ng/L (0-15) H 02/18/23 10:45 Troponin T 120 Minute 96.36 ng/L (0-15) H 02/18/23 12:47 Delta Troponin T -3.64 ABS# (0-10) L 02/18/23 12:47 Total Protein 7.3 g/dL (6.6-8.7) 02/18/23 10:45 Albumin 3.9 g/dL (3.5-5.2) 02/18/23 10:45 Globulin 3.4 g/dL (1.3-4.6) 02/18/23 10:45 All radiology interpretation(s) finalized by discharge Discharge Plan Discharge Patient Disposition: Home Clinical Impression: Chest pain, ESRD (end stage renal disease) Condition: Stable Prescriptions: New ranolazine 500 mg tablet extended release 12 hr 500 mg PO BID Qty: 14 0RF No Action pantoprazole 40 mg tablet,delayed release (DR/EC) 40 mg PO QAM terazosin 10 mg capsule 10 mg PO BID acetaminophen [Tylenol Extra Strength] 500 mg tablet 1,000 mg PO Q6H PRN (Reason: Pain) Novolog FlexPen U-100 Insulin 100 unit/mL (3 mL) insulin pen See Rx Instructions .ROUTE .COMPLEX Qty: 15 0RF Rx Instructions: SLIDING SCALE Before or right after meals prn (DME) Diabetic Shoes See Rx Instructions .ROUTE .MEDSUPPLY Qty: 1 0RF Rx Instructions: As directed J P [employer] O with 3 pairs of inserts (DME) Diabetic Shoes See Rx Instructions .ROUTE .MEDSUPPLY Qty: 1 0RF Rx Instructions: As directed By [employer] P [employer] with 3 pairs of inserts magnesium oxide 400 mg magnesium capsule 400 mg PO BEDTIME rosuvastatin [Crestor] 10 mg tablet 10 mg PO BEDTIME irbesartan 300 mg tablet 300 mg PO BEDTIME sevelamer carbonate 800 mg tablet 1,600 mg PO BID Rx Instructions: must administer with a meal/food cholecalciferol (vitamin D3) 50 mcg (2,000 unit) capsule 50 mcg PO BEDTIME omega 9-egu-yio-fish oil [Fish Oil] 1,000 mg (120 mg-180 mg) capsule 2 cap PO BID (DME) FreeStyle Inocencia 14 Day Sensor Kit See Rx Instructions .Route Qty: 1 0RF Rx Instructions: As directed (DME) FreeStyle Inocencia 14 Day [place] Misc See Rx Instructions .Route Qty: 1 0RF Rx Instructions: As directed (DME) BIPAP and supplies See Rx Instructions .Route .MEDSUPPLY Qty: 1 0RF Rx Instructions: with 2L of oxygen when in use levothyroxine 25 mcg Tablet 25 mcg PO QAM clopidogrel 75 mg tablet 75 mg PO BEDTIME Hold Instructions: Resume on 07/10/21. aspirin 81 mg tablet,delayed release (DR/EC) 81 mg PO QAM Hold Instructions: Resume on 07/07/21. Levemir FlexTouch U100 Insulin 100 unit/mL (3 mL) insulin pen 20 unit SUBCUT BEDTIME cetirizine [Zyrtec] 10 mg Tablet 10 mg PO BID Lexapro 20 mg tablet 20 mg PO QAM isosorbide mononitrate 60 mg Tablet Extended Release 24 Hr 60 mg PO BID Qty: 60 0RF furosemide [Lasix] 80 mg Tablet 80 mg PO BID allopurinol 300 mg Tablet 300 mg PO BEDTIME folic acid 0.8 mg Capsule 0.4 mg PO BEDTIME hydralazine 10 mg tablet See Rx Instructions .ROUTE .COMPLEX Rx Instructions: 10mg po bid and may take extra tab if needed carvedilol 12.5 mg Tablet 12.5 mg PO QAM amlodipine 10 mg Tablet 10 mg PO BEDTIME nitroglycerin [Nitrostat] 0.4 mg Tablet, Sublingual 0.4 mg SUBLINGUAL Q5M PRN (Reason: Chest Pain) Rx Instructions: do not exceed 3 doses per episode Discharge Orders: Discharge ED (Routine); Ordered 02/18/23 Ordered By: Parish White Referrals: Carlee Carreon DO [Primary Care Provider] - Discharge Diet: Usual diet Discharge Activity: Increase activity as tolerated Patient Instructions: Opioid Safety, Pain Management Activity Restrictions/Additional Instructions: Thank you for choosing [facility] for your healthcare needs today. Please realize this is an emergency room and that we are providing you with a medical screening exam and this may not be complete and all inclusive of all the testing and or work up that you may need to determine your ailment or severity of your illness. It is very important that you follow up as instructed or that you return to the Emergency Department should you have concerns or if your condition changes or worsens in any way. Your cardiac enzymes and EKGs were normal. Reviewed your previous cardiac angiogram done earlier this year. Discussed your case with Dr. Rashid we recommend that you start on Ranexa 500 mg 1 p.o. twice daily keep your appoint with Dr. Rashid next week to evaluate how well this is worked. This may slightly increase sensation of lightheadedness dizziness especially when you f irst stand. Continue all your other medications as previously prescribed. Coding Level of Care Code ED Leach Runner for Les Fuentes
[2023-02-18 10:50] VITALS: BP 135/75; PULSE 59; RESP 13; O2SAT 93
[2023-02-18] MEDS: aspirin 81 mg Chew Tablet 324 MG PO (10:51)
[2023-02-18 10:52] LABS: Basophils # 0.1 10^3/uL (0.0-0.1); Eosinophils # 0.4 10^3/uL (0.0-0.8); Eosinophils % 4.1 %; Hematocrit 35.6 % (37-53); Lymphocytes # 1.3 10^3/uL (0.8-4.8); Lymphocytes % 12.2 %; Mean Corpuscular HGB Conc 31.7 g/dL (30-55); Mean Corpuscular Hemoglobin 28.6 pg (27-33); Mean Corpuscular Volume 90.1 fl (82-101); Mean Platelet Volume 8.7 fL (7.4-10.4); Monocytes # 0.6 10^3/uL (0.2-0.9); Monocytes % 5.2 %; Neutrophils # 8.15 10^3/uL (1.8-7.7); Neutrophils % 76.5 %; Nucleated Red Blood Cells % 0 %; Platelet Count 238 10^3/cmm (157-399); Red Blood Count 3.95 10^6/uL (3.85-5.65); Red Cell Distribution Width 15.4 % (12.1-15.1); White Blood Count 10.67 10^3/uL (3.29-11.43)
[2023-02-18 11:13] LABS: Alanine Aminotransferase 14 U/L (0-41); Albumin Level 3.9 g/dL (3.5-5.2); Alkaline Phosphatase 193 U/L (40-130); Anion Gap 18.9 (5-19); Aspartate Amino Transferase 11 U/L (0-40); Blood Urea Nitrogen 42 mg/dL (8-23); Calcium 9.9 mg/dL (8.5-10.5); Carbon Dioxide 28 mmol/L (22-29); Chloride 93 mmol/L (98-107); Globulin 3.4 g/dL (1.3-4.6); Glucose 412 mg/dL (65-115); Osmolality Calculated 308 mOsm/kg (285-295); Potassium 4.9 mmol/L (3.5-5.1); Sodium 135 mmol/L (136-145); Total Bilirubin 0.3 mg/dL (0.15-1.2); Total Protein 7.3 g/dL (6.6-8.7)
[2023-02-18 11:15] LABS: Troponin(5th) Baseline 100 ng/L (0-15)
[2023-02-18 12:20] VITALS: BP 138/67; PULSE 59; RESP 17; O2SAT 94
--- NOTE | 2023-02-18 12:24 | ECG_ITS ---
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 Measurements Intervals [place] Rate: 62 P: -2 NE: 246 QRS: -1 QRSD: 105 T: 24 QT: 431 QTc: 441 Interpretive Statements SINUS RHYTHM WITH FIRST DEGREE AV BLOCK Compared to ECG 02/18/2023 10:13:02 Sinus bradycardia no longer present Electronically Signed On 02-18-2023 12:49:43 CDT by Tiara Bermeo M.D. [id number]
[2023-02-18] MEDS: ondansetron 2 mg/ML SDV 2 mL 4 MG IVP (13:08)
[2023-02-18 13:16] LABS: Troponin 5 2HR 96.36 ng/L (0-15)
[2023-02-18 13:22] LABS: Troponin 5 2HR Delta -3.64 ABS# (0-10)
[2023-02-18 19:06] LABS: Glucose Point of Care 282 mg/dL (70-110)
== END 2023-02-18 14:25 | disposition home or self-care (01) ==
PROVIDERS: Emergency Provider Family Medicine; PCP Family Medicine
DX: R07.9 Chest pain, unspecified (principal); E13.22 Other specified diabetes mellitus with diabetic chronic kidney disease; I13.2 Hypertensive heart and chronic kidney disease with heart failure and with stage 5 chronic kidney disease, or end stage renal disease; I50.9 Heart failure, unspecified; N18.6 End stage renal disease; I25.10 Atherosclerotic heart disease of native coronary artery without angina pectoris; Z86.73 Personal history of transient ischemic attack (TIA), and cerebral infarction without residual deficits; E78.5 Hyperlipidemia, unspecified; E13.42 Other specified diabetes mellitus with diabetic polyneuropathy; I25.2 Old myocardial infarction
CPT/HCPCS: 36415; 36416; 71045; 80053; 82962; 84484; 85025; 93005; 99285; J2405

== ENCOUNTER 2023-02-18 18:11 | Inpatient (IN) | payer OTHER, SELFPAY ==
[2023-02-18] VITALS (7 sets, daily range): BP systolic 131–197; BP diastolic 82–102; PULSE 85–88; RESP 18–19; TEMP 36.3–36.6; O2SAT 93; BMI 32.5
--- NOTE | 2023-02-18 18:14 | XRR_ITS ---
PROCEDURE INFORMATION: Exam: XR Chest Exam date and time: 02/18/2023 7:19 PM Age: 72 years old Clinical indication: Cough and shortness of breath; Additional info: SOB TECHNIQUE: Imaging protocol: Radiologic exam of the chest. Views: 1 view. COMPARISON: CR (CHEST, ) 02/18/2023 10:45 AM FINDINGS: Lungs: Unremarkable. No consolidation. Pleural spaces: Unremarkable. No pleural effusion. No pneumothorax. Heart/Mediastinum: Unremarkable. No cardiomegaly. Bones/joints: Unremarkable. XR/XR chest 1V portable [id number] IMPRESSION: 1. No focal consolidation. 2. Lucency projecting through the dome of the liver may represent loops colon interspersed between the liver and anterior abdominal wall. A lateral chest radiograph may help to confirm this finding.
--- NOTE | 2023-02-18 18:19 | ECG_ITS ---
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 Measurements Intervals [place] Rate: 95 P: 0 [place]: 0 QRS: 54 QRSD: 90 T: -21 QT: 340 QTc: 429 Interpretive Statements ATRIAL FIBRILLATION NONSPECIFIC ST & T-WAVE ABNORMALITY Compared to ECG 02/18/2023 12:24:15 T-wave abnormality now present Sinus rhythm no longer present First degree AV block no longer present Electronically Signed On 02-18-2023 22:54:19 CDT by Tiara Bermeo M.D. [id number]
--- NOTE | 2023-02-18 18:21 | W.ED.NAVMDI ---
HPI - Nausea/Vomiting/Diarrhea General: Chief complaint: Nausea/Vomiting/Diarrhea Stated complaint: N/V Time Seen by Provider: 02/18/23 18:13 Source: patient and EMS Mode of arrival: EMS Limitations: altered mental status History of Present Illness: 72-year-old male has a history of end-stage renal disease seen here earlier today for chest pain his work-up was normal he went back to dialysis per EMS he had vomited at dialysis that given him Zofran there with minimal improvement patient was given Phenergan in route by EMS he is now sedated from the Phenergan he is sleeping difficult to arouse per EMS he had had no complaints of pain at that time they did do a partial dialysis on him. 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 Dyslipidemia ESRD (end stage renal disease) Essential hypertension Hemodialysis access site with arteriovenous graft History of 2019 novel coronavirus disease (COVID-19) Hypothyroidism NSTEMI (non-ST elevated myocardial infarction) KAITLYNN (obstructive sleep apnea) Paget's disease Surgical History History of esophagogastroduodenoscopy (EGD) 10 yrs ago Hx of cholecystectomy Previous back surgery S/P angioplasty with stent S/P cataract extraction S/P hemodialysis catheter insertion Family History Mother CAD (coronary artery disease) Stroke Sister Hypertension Social History Smoking and tobacco/nicotine status: never used tobacco/nicotine Alcohol intake: never Substance/Drug Use: never Household members: spouse Marital status: service: Yes branch: [employer] Current occupational status: employed 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 Current gender identity: Male Physical Exam Const: COMMON NORMALS: negative for patient oriented x3 HENMT: COMMON NORMALS: normocephalic and atraumatic HEAD & SCALP: normocephalic and atraumatic Eye: COMMON NORMALS: Equal, round and reactive pupils present and EOMs intact bilaterally PUPIL: Yes Equal, round and reactive pupils present Neck/C-Spine: COMMON NORMALS: full ROM and supple Chest: COMMONS NORMALS: normal inspection of the chest and normal palpation of entire chest wall Resp: COMMON NORMALS: normal respiratory effort, No retractions, No use of accessory muscles and clear to auscultation bilaterally AUSCULTATION: clear to auscultation bilaterally Cardio: COMMON NORMALS: regular rate, regular rhythm and No murmurs present (Cardio) RATE: regular rate RHYTHM: regular rhythm GI: COMMON NORMALS: Normal to inspection, nondistended, normoactive bowel sounds present, Soft to palpation, non-tender and no masses PALPATION: Yes Soft to palpation Extremity: COMMON NORMALS: normal to inspection and full ROM Neuro: COMMON NORMALS: moves all extremities and no focal motor deficits; negative for patient oriented x3 Psych: COMMON NORMALS: cooperative; negative for mental status grossly normal Skin: COMMON NORMALS: no rashes or lesions noted and no wounds GENERAL SKIN EXAM: no rashes or lesions noted Course Vital Signs: Vital signs: Vital Signs Temperature 97.8 F 02/18/23 18:17 Pulse Rate 87 02/18/23 19:06 Respiratory Rate 18 02/18/23 19:06 Blood Pressure 131/82 02/18/23 19:52 Pulse Oximetry 93 02/18/23 19:06 Oxygen Delivery Me thod Nasal Cannula 02/18/23 19:06 Oxygen Flow Rate 1.5 02/18/23 19:06 MDM - Nausea/Vomiting/Diarrhea Medical Decision Making Patient presents here with intractable vomiting he received doses of Zofran along with Phenergan at dialysis and in route he is continue to have vomiting here CT shows no signs of obstruction his blood works normal as well spoke to hospitalist will admit this time for observation he was altered when he first arrived and likely due to the Phenergan he is now more awake and answering questions Medical Records I reviewed the patient's medical records. Lab Data I reviewed the patient's lab results. 02/18/23 18:24 02/18/23 18:24 Radiology Impressions Chest X-Ray 02/18/23 18:14 IMPRESSION: 1. No focal consolidation. 2. Lucency projecting through the dome of the liver may represent loops colon interspersed between the liver and anterior abdominal wall. A lateral chest radiograph may help to confirm this finding. Abdomen/Pelvis CT 02/18/23 18:57 IMPRESSION: 1. No bowel obstruction or inflammatory process associated with the bowel. 2. No free air or significant free fluid in the abdomen or pelvis. 3. The appendix is not visualized but there are no secondary signs of acute appendicitis. COMMENTS: Consistent with the [employer]'s Incidental Findings Committee white paper (J Am Sosa Radiol 2018): Any incidental renal lesion less than 1 cm or classified as too small to characterize, or any incidental cystic renal lesion characterized as simple-appearing, is likely benign. No follow-up imaging is recommended for these lesions per consensus recommendations based on imaging criteria. Laboratory Results WBC 10.20 10^3/uL (3.29-11.43) 02/18/23 18:24 RBC 4.06 10^6/uL (3.85-5.65) 02/18/23 18:24 Hgb 11.40 g/dL (11.27-16.99) 02/18/23 18:24 Hct 35.9 % (37-53) L 02/18/23 18:24 MCV 88.4 fl (82-101) 02/18/23 18:24 MCH 28.1 pg (27-33) 02/18/23 18:24 MCHC 31.8 g/dL (30-55) 02/18/23 18:24 RDW 15.6 % (12.1-15.1) H 02/18/23 18:24 Plt Count 217 10^3/cmm (157-399) 02/18/23 18:24 MPV 8.8 fL (7.4-10.4) 02/18/23 18:24 Neut % (Auto) 85.5 % 02/18/23 18:24 Lymph % (Auto) 8.1 % 02/18/23 18:24 [place] % (Auto) 3.8 % 02/18/23 18:24 Eos % (Auto) 0.9 % 02/18/23 18:24 Baso % (Auto) 0.9 % 02/18/23 18:24 Neut # (Auto) 8.72 10^3/uL (1.8-7.7) H 02/18/23 18:24 Lymph # (Auto) 0.8 10^3/uL (0.8-4.8) 02/18/23 18:24 [place] # (Auto) 0.4 10^3/uL (0.2-0.9) 02/18/23 18:24 Eos # (Auto) 0.1 10^3/uL (0.0-0.8) 02/18/23 18:24 Baso # (Auto) 0.1 10^3/uL (0.0-0.1) 02/18/23 18:24 Nucleated RBC % (auto) 0 % 02/18/23 18:24 Nucleated RBCs # 0.0 /100WBC 02/18/23 18:24 Sodium 136 mmol/L (136-145) 02/18/23 18:24 Potassium 4.2 mmol/L (3.5-5.1) 02/18/23 18:24 Chloride 94 mmol/L (98-107) L 02/18/23 18:24 Carbon Dioxide 30 mmol/L (22-29) H 02/18/23 18:24 Anion Gap 16.2 (5-19) 02/18/23 18:24 BUN 22 mg/dL (8-23) 02/18/23 18:24 Creatinine 3.0 mg/dL (0.7-1.2) H 02/18/23 18:24 GFR Calculation Not Reportable 02/18/23 18:24 Glucose 268 mg/dL (65-115) H 02/18/23 18:24 Calculated Osmolality 295 mOsm/kg (285-295) 02/18/23 18:24 Calcium 9.5 mg/dL (8.5-10.5) 02/18/23 18:24 Total Bilirubin 0.4 mg/dL (0.15-1.2) 02/18/23 18:24 AST 12 U/L (0-40) 02/18/23 18:24 ALT 12 U/L (0-41) 02/18/23 18:24 Alkaline Phosphatase 202 U/L (40-130) H 02/18/23 18:24 Total Protein 7.5 g/dL (6.6-8.7) 02/18/23 18:24 Albumin 4.1 g/dL (3.5-5.2) 02/18/23 18:24 Globulin 3.4 g/dL (1.3-4.6) 02/18/23 18:24 Lipase 22 U/L (13-60) 02/18/23 18:24 All radiology interpretation(s) finalized by discharge Discharge Plan Discharge Patient Disposition: Placed in Observation Clinical Impression: Intractable vomiting Condition: Stable Prescriptions: No Action pantoprazole 40 mg tablet,delayed release (DR/EC) 40 mg PO QAM terazosin 10 mg capsule 10 mg PO BID acetaminophen [Tylenol Extra Strength] 500 mg tablet 1,000 mg PO Q6H PRN (Reason: Pain) Novolog FlexPen U-100 Insulin 100 unit/mL (3 mL) insulin pen See Rx Instructions .ROUTE .COMPLEX Qty: 15 0RF Rx Instructions: SLIDING SCALE Before or right after meals prn (DME) Diabetic Shoes See Rx Instructions .ROUTE .MEDSUPPLY Qty: 1 0RF Rx Instructions: As directed J P & O with 3 pairs of inserts (DME) Diabetic Shoes See Rx Instructions .ROUTE .MEDSUPPLY Qty: 1 0RF Rx Instructions: As directed By [employer] P [employer] O with 3 pairs of inserts magnesium oxide 400 mg magnesium capsule 400 mg PO BEDTIME rosuvastatin [Crestor] 10 mg tablet 10 mg PO BEDTIME irbesartan 300 mg tablet 300 mg PO BEDTIME sevelamer carbonate 800 mg tablet 1,600 mg PO BID Rx Instructions: must administer with a meal/food cholecalciferol (vitamin D3) 50 mcg (2,000 unit) capsule 50 mcg PO BEDTIME omega 8-ljo-gla-fish oil [Fish Oil] 1,000 mg (120 mg-180 mg) capsule 2 cap PO BID (DME) FreeStyle Inocencia 14 Day Sensor Kit See Rx Instructions .Route Qty: 1 0RF Rx Instructions: [place] directed [place] FreeStyle Inocencia 14 Day [place] Misc See Rx Instructions .Route Qty: 1 0RF Rx Instructions: As directed [place] BIPAP and supplies See Rx Instructions .Route .MEDSUPPLY Qty: 1 0RF Rx Instructions: with 2L of oxygen when in use levothyroxine 25 mcg Tablet 25 mcg PO QAM clopidogrel 75 mg tablet 75 mg PO BEDTIME Hold Instructions: Resume on 07/10/21. aspirin 81 mg tablet,delayed release (DR/EC) 81 mg PO QAM Hold Instructions: Resume on 07/07/21. Levemir FlexTouch U100 Insulin 100 unit/mL (3 mL) insulin pen 20 unit SUBCUT BEDTIME cetirizine [Zyrtec] 10 mg Tablet 10 mg PO BID Lexapro 20 mg tablet 20 mg PO QAM isosorbide mononitrate 60 mg Tablet Extended Release 24 Hr 60 mg PO BID Qty: 60 0RF furosemide [Lasix] 80 mg Tablet 80 mg PO BID allopurinol 300 mg Tablet 300 mg PO BEDTIME folic acid 0.8 mg Capsule 0.4 mg PO BEDTIME hydralazine 10 mg tablet See Rx Instructions .ROUTE .COMPLEX Rx Instructions: 10mg po bid and may take extra tab if needed carvedilol 12.5 mg Tablet 12.5 mg PO QAM amlodipine 10 mg Tablet 10 mg PO BEDTIME nitroglycerin [Nitrostat] 0.4 mg Tablet, Sublingual 0.4 mg SUBLINGUAL Q5M PRN (Reason: Chest Pain) Rx Instructions: do not exceed 3 doses per episode ranolazine 500 mg tablet extended release 12 hr 500 mg PO BID Qty: 14 0RF Referrals: Carlee Carreon DO [Primary Care Provider] - Coding Level of Care Code ED Division Supervisor for Les Fuentes
[2023-02-18 18:35] LABS: Basophils # 0.1 10^3/uL (0.0-0.1); Basophils % 0.9 %; Eosinophils # 0.1 10^3/uL (0.0-0.8); Eosinophils % 0.9 %; Hematocrit 35.9 % (37-53); Lymphocytes # 0.8 10^3/uL (0.8-4.8); Lymphocytes % 8.1 %; Mean Corpuscular HGB Conc 31.8 g/dL (30-55); Mean Corpuscular Hemoglobin 28.1 pg (27-33); Mean Corpuscular Volume 88.4 fl (82-101); Mean Platelet Volume 8.8 fL (7.4-10.4); Monocytes # 0.4 10^3/uL (0.2-0.9); Monocytes % 3.8 %; Neutrophils # 8.72 10^3/uL (1.8-7.7); Neutrophils % 85.5 %; Nucleated Red Blood Cells % 0 %; Platelet Count 217 10^3/cmm (157-399); Red Blood Count 4.06 10^6/uL (3.85-5.65); Red Cell Distribution Width 15.6 % (12.1-15.1)
[2023-02-18 18:54] LABS: Alanine Aminotransferase 12 U/L (0-41); Albumin Level 4.1 g/dL (3.5-5.2); Alkaline Phosphatase 202 U/L (40-130); Anion Gap 16.2 (5-19); Aspartate Amino Transferase 12 U/L (0-40); Blood Urea Nitrogen 22 mg/dL (8-23); Calcium 9.5 mg/dL (8.5-10.5); Carbon Dioxide 30 mmol/L (22-29); Chloride 94 mmol/L (98-107); Globulin 3.4 g/dL (1.3-4.6); Glucose 268 mg/dL (65-115); Lipase 22 U/L (13-60); Osmolality Calculated 295 mOsm/kg (285-295); Potassium 4.2 mmol/L (3.5-5.1); Sodium 136 mmol/L (136-145); Total Bilirubin 0.4 mg/dL (0.15-1.2); Total Protein 7.5 g/dL (6.6-8.7)
--- NOTE | 2023-02-18 18:57 | CTR_ITS ---
PROCEDURE INFORMATION: Exam: CT Abdomen And Pelvis Without Contrast Exam date and time: 02/18/2023 7:14 PM Age: 72 years old Clinical indication: Nausea and vomiting; Prior surgery; Surgery date: 6+ months; Surgery type: Spine fusion TECHNIQUE: Imaging protocol: Computed tomography of the abdomen and pelvis without contrast. Radiation optimization: All CT scans at this facility use at least one of these dose optimization techniques: automated exposure control; mA and/or kV adjustment per patient size (includes targeted exams where dose is matched to clinical indication); or iterative reconstruction. REPORTING DATA: Count of CT and Cardiac NM exams in prior 12 months: This patient has received 4 known CTs and 0 known cardiac nuclear medicine studies in the 12 months prior to the current study. COMPARISON: CT abdomen pelvis wo con [id number] 08/18/2022 8:21 AM RADIATION DOSE METRICS: Total DLP (mGy-cm): 1040 FINDINGS: Coronary arteries: Coronary arterial atherosclerotic calcifications are present. Liver: Normal. No mass. Gallbladder and bile ducts: The gallbladder is absent. Pancreas: Normal. No ductal dilation. Spleen: Normal. No splenomegaly. Adrenal glands: Normal. No mass. Kidneys and ureters: There are 2 simple appearing cysts in the right kidney. No follow-up imaging indicated. Stomach and bowel: Diverticulosis. No obstruction. No mucosal thickening. Appendix: The appendix is not visualized but there are no secondary signs of acute appendicitis. Intraperitoneal space: Unremarkable. No free air. No significant fluid collection. Vasculature: Unremarkable. No abdominal aortic aneurysm. Lymph nodes: Unremarkable. No enlarged lymph nodes. Urinary bladder: Unremarkable as visualized. Reproductive: Unremarkable as visualized. Bones/joints: Posterior fusion extending from T10 through L4 without evidence of hardware failure or loosening. Soft tissues: Unremarkable. CT/CT abdomen pelvis wo con [id number] IMPRESSION: 1. No bowel obstruction or inflammatory process associated with the bowel. 2. No free air or significant free fluid in the abdomen or pelvis. 3. The appendix is not visualized but there are no secondary signs of acute appendicitis. COMMENTS: Consistent with the [employer]'s Incidental Findings Committee white paper (J Am Sosa Radiol 2018): Any incidental renal lesion less than 1 cm or classified as too small to characterize, or any incidental cystic renal lesion characterized as simple-appearing, is likely benign. No follow-up imaging is recommended for these lesions per consensus recommendations based on imaging criteria.
[2023-02-18] MEDS: hyDRALAzine 20 mg/mL INJ 1 mL 10 MG IVP (19:39)
[2023-02-18] MEDS: ondansetron 2 mg/ML SDV 2 mL 4 MG IVP (20:27)
--- NOTE | 2023-02-18 20:35 | PC.NURSE ---
pt responds to verbal stimuli, opening eyes at this time. pt able to tell this nurse he is not in any pain. pt currently vomiting. zofran given, see MAR. per friend at bedside pt has stroke, SC history. pt is currently on 2L NC at 93%. this nurse attempted to remove oxygen, pts oxygen sat dropped to 87%. pt normally not oxygen dependent.
--- NOTE | 2023-02-18 22:11 | PM.HP ---
Providers/Chief Complaint Admitting Physician: Homa Adame MD Primary Care Provider: Carlee Carreon DO Chief Complaint: N/V History of Present Illness Eliazar Hogan is a 72 year old male with a history of atherosclerotic heart disease and multiple PCI's, high blood pressure, dyslipidemia, type 2 diabetes, hypothyroidism and end-stage renal disease. He presented to the emergency room earlier today with chief complaints of nausea and multiple episodes of vomiting. He was evaluated in the emergency room in the morning, labs were reassuring and patient appeared to be clinically well therefore he was discharged to undergo dialysis. He went for his scheduled session today and there continued to have multiple episodes of emesis and was sent back into the emergency room. In route via the EMS he received Phenergan following which patient reportedly became sleepy and disoriented. At the time of my assessment patient is currently awake alert and oriented and able to recall all events leading up to the ER visit. He states that he has had multiple episodes of nausea and vomiting during the day yesterday. He does not recall eating anything out of the ordinary. No history of consumption of any raw meats recently. States that he eats mostly home-cooked food. There are no other family members in the home. Source of his water is well water, water has been tested recently and not known to be contaminated. Denies any abdominal pain diarrhea or fever. Continues to have nausea. Review of Systems General: Reports: 10 or more systems reviewed and unremarkable except in HPI and below Const: Denies: fever(s), chills or body aches Eyes: Denies: change in vision, blurry vision or photophobia ENMT: Reports: hoarseness; Denies: throat pain, enlarged tonsils, odynophagia or nasal congestion Card: Denies: chest pain, palpitations, irregular heart rhythm, edema, swelling of feet/ankles, lightheadedness, pre-syncope, dyspnea on exertion or orthopnea Resp: Denies: dyspnea, productive cough, non-productive cough, wheezing, stridor, pain on inspiration, change in phlegm color, hemoptysis or chest congestion GI: Denies: abdominal pain, nausea, vomiting, hematemesis, coffee ground emesis, dysphagia, heartburn, diarrhea, constipation, GI cramping, change in stool character, hematochezia or melena : Denies: flank pain, dysuria, urinary frequency, urinary urgency, urinary hesitancy or hematuria Musc: Denies: neck pain, back pain, extremity pain, joint swelling, joint warmth or deformity Neuro: Denies: headache(s), numbness in extremities, weakness in extremities, sensory changes, difficulty walking, frequent falls, dizziness, vertigo, behavioral changes, Slurred speech present or seizure-like activity Psych: Denies: anxiety, depression, suicidal ideation or homicidal ideation Endo: Denies: polyuria, polydipsia, tired all the time, cold intolerance or hot flashes Jermain/Lymph: Denies: easy bruising or easy bleeding Medications/Allergies Home Medications Medication Instructions Recorded Confirmed Last Taken Type acetaminophen 500 mg tablet 1,000 mg PO Q6H PRN Pain 05/05/19 02/18/23 11/14/22 History (Tylenol Extra Strength) pantoprazole 40 mg tablet,delayed 40 mg PO QAM 05/05/19 02/18/23 02/18/23 History release terazosin 10 mg capsule 10 mg PO BID 05/05/19 02/18/23 02/18/23 History insulin aspart U-100 100 unit/mL See Rx Instructions .Route 08/22/20 02/18/23 02/18/23 Rx (3 mL) subcutaneous pen (Novolog .COMPLEX #15 mL FlexPen U-100 Insulin aspart) aspirin 81 mg tablet,delayed 81 mg PO QAM 09/01/20 02/18/23 02/18/23 History release clopidogrel 75 mg tablet 75 mg PO BEDTIME 09/01/20 02/18/23 02/17/23 History Diabetic Shoes #1 ea 09/13/20 02/18/23 12/05/21 Rx Diabetic Shoes #1 ea 10/25/20 02/18/23 12/05/21 Rx levothyroxine 25 mcg tablet 25 mcg PO QAM 11/09/20 02/18/23 02/18/23 History cetirizine 10 mg tablet (Zyrtec) 10 mg PO BID 11/14/20 02/18/23 02/18/23 History escitalopram oxalate 20 mg tablet 20 mg PO QAM 01/09/21 02/18/23 02/18/23 History (Lexapro) insulin detemir U-100 100 unit/mL 20 unit SUBCUT BEDTIME 03/27/21 02/18/23 02/17/23 History (3 mL) subcutaneous pen (Levemir FlexTouch U-100 Insulin) BIPAP and supplies #1 ea 04/09/21 02/18/23 12/05/21 Rx magnesium oxide 400 mg PO BEDTIME 07/31/21 02/18/23 02/17/23 History rosuvastatin 10 mg tablet (Crestor) 10 mg PO BEDTIME 09/20/21 02/18/23 02/17/23 History amlodipine 10 mg tablet 10 mg PO BEDTIME 09/29/21 02/18/23 02/17/23 History carvedilol 12.5 mg tablet 12.5 mg PO QAM 09/29/21 02/18/23 02/18/23 History nitroglycerin 0.4 mg sublingual 0.4 mg sublingual Q5M PRN Chest 09/29/21 02/18/23 09/29/21 History tablet (Nitrostat) Pain 2 tabs cholecalciferol (vitamin D3) 50 50 mcg PO BEDTIME 02/13/22 02/18/23 02/17/23 History mcg (2,000 unit) capsule omega 6-[id number]-snb-fish oil 1,000 mg 2 cap PO BID 02/13/22 02/18/23 02/18/23 History (120 mg-180 mg) capsule (Fish Oil) sevelamer carbonate 800 mg tablet 1,600 mg PO BID 02/13/22 02/18/23 02/18/23 History isosorbide mononitrate 60 mg 60 mg PO BID #60 tabs 08/20/22 02/18/23 02/18/23 Rx tablet,extended release 24 hr irbesartan 300 mg tablet 300 mg PO BEDTIME 09/06/22 02/18/23 02/17/23 History allopurinol 300 mg tablet 300 mg PO BEDTIME 11/14/22 02/18/23 02/17/23 History folic acid 0.8 mg capsule 0.4 mg PO BEDTIME 11/14/22 02/18/23 02/17/23 History furosemide 80 mg tablet (Lasix) 80 mg PO BID 11/14/22 02/18/23 02/18/23 History hydralazine 10 mg tablet See Rx Instructions .Route .COMPLEX 11/14/22 02/18/2302/08/23 History flash glucose scanning reader #1 ea 01/31/23 02/18/23 Unknown Rx (FreeStyle Inocencia 14 Day [place]) flash glucose sensor (FreeStyle #1 ea 01/31/23 02/18/23 Unknown Rx Inocencia 14 Day Sensor kit) ranolazine 500 mg tablet,extended 500 mg PO BID #14 tabs 02/18/23 Unknown Rx release,12 hr Allergies Allergy/AdvReac Type Severity Reaction Status Date / Time chicken derived Allergy Unknown ADR-Nausea Verified 02/18/23 18:30 morphine AdvReac Mild dizzy & Verified 02/18/23 18:30 nauseous PFSH Acute PFSH: Medical History Acute kidney injury superimposed on CKD Anemia CAD (coronary artery disease) Cardiac enzymes elevated Carotid stenosis, bilateral Chest pain Chronic back pain Chronic kidney disease Chronic kidney disease (CKD) stage G5/A1, glomerular filtration rate (GFR) less than or equal to 15 mL/min/1.73 square meter and albuminuria creatinine ratio less than 30 mg/g Congestive 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 CVA (cerebral vascular accident) Diabetes 1.5, 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 Dyslipidemia ESRD (end stage renal disease) Essential hypertension Hemodialysis access site with arteriovenous graft History of 2019 novel coronavirus disease (COVID-19) Hypothyroidism NSTEMI (non-ST elevated myocardial infarction) KAITLYNN (obstructive sleep apnea) Paget's disease Surgical History History of esophagogastroduodenoscopy (EGD) 10 yrs ago Hx of cholecystectomy Previous back surgery S/P angioplasty with stent S/P cataract extraction S/P hemodialysis catheter insertion Family History Mother CAD (coronary artery disease) Stroke Sister Hypertension Social History Smoking and tobacco/nicotine status: never used tobacco/nicotine Alcohol intake: never Substance/Drug Use: never Household members: spouse Marital status: service: Yes branch: [employer] Current occupational status: employed Current occupation: [employer] Current gender identity: Male Vitals/I&O/Wt Last Vital Signs Temp 97.3 F L 02/18/23 21:30 Pulse 88 02/18/23 21:30 Resp 18 02/18/23 21:30 BP 182/84 02/18/23 21:30 Pulse Ox 93 02/18/23 21:30 O2 Del Method Nasal Cannula 02/18/23 21:47 O2 Flow Rate 1.5 02/18/23 19:06 02/18/23 02/18/23 02/18/23 06:59 14:59 22:59 Output Total Balance - / -20 Weight last 48 hrs Weight 97.2 kg Physical Exam Narrative: General: No acute distress, AO x3 HEENT: PERRLA, pupils bilaterally equal and reactive, pallors not present Chest: Normal vesicular breath sounds, no added sounds, equal good air entry bilaterally CVS: S1-S2 regular, no murmurs, no tachycardia, no gallops, no rubs Abdomen: Soft, nontender, no organomegaly, bowel sounds present Neuro: No focal deficits, no facial deformity, AO x3, power 5/5 in all limbs Extremities: LE edema Data 02/19/23 04:44 02/19/23 04:44 A&P Assessment and plan (1) Intractable vomiting: Patient presenting with intractable nausea and vomiting starting in the course of last 24 hours. Could not complete dialysis because of persistent nausea. He has had Zofran during course of the day without significant relief. Most recently received Phenergan via EMS which appears to have control the vomiting though he still reports some nausea. After receiving Phenergan patient was reportedly confused and disoriented when he first arrived into the emergency room. Currently at the time of my assessment he is awake alert and oriented x3. Trial of oral diet this morning. As needed Zofran and Reglan for symptomatic relief. Suspect symptoms may be related to acute viral gastroenteritis. electrolytes and labs reassuring Avodiing IVF due to CKD, HD patient CT abdomen negative for any obstruction or other inflammatory process. Abdominal exam without any focal tenderness or rebound. Troponin series with baseline troponin at 100, downtrending at 2 hours. Review of past trend shows that patient has typical troponin numbers between 95-200. He was recently evaluated in August 2022 for atypical anginal symptoms when he had presented similarly with multiple bouts of vomiting and dry heaves. He underwent an angiogram on August 19, 2022 which showed overall patent stents without any significant CAD with mild to moderate luminal irregularities. Patient currently denies any chest pain and symptoms appear to be improving after Phenergan. Low suspicion for ACS at this point. If he is able to tolerate oral intake going forward, anticipate he may be able to discharge in the upcoming 24 hours. Attestations Medical Necessity Statement*: less than 2 midnight stay is anticipated Coding Level of Care Code Acute Code for Chg Fwd Diagnoses Intractable vomiting R11.10
[2023-02-18 22:29] LABS: Adenovirus Not Detected (NOT DETECT); Chlamydia Pneumoniae Not Detected (NOT DETECT); Coronavirus 229E,HKU1,NL63,OC4 Not Detected (NOT DETECT); Human Metapneumovirus Not Detected (NOT DETECT); Human Rhinovirus/Enterovirus Not Detected (NOT DETECT); Influenza A Not Detected (NOT DETECT); Influenza A H1 Not Detected (NOT DETECT); Influenza A H1-2009 Not Detected (NOT DETECT); Influenza A H3 Not Detected (NOT DETECT); Influenza B Not Detected (NOT DETECT); Mycoplasma Pneumoniae Not Detected (NOT DETECT); Parainfluenza Virus Type 1 Not Detected (NOT DETECT); Parainfluenza Virus Type 2 Not Detected (NOT DETECT); Parainfluenza Virus Type 3 Not Detected (NOT DETECT); Parainfluenza Virus Type 4 Not Detected (NOT DETECT); Respiratory Syncytial Virus A Not Detected (NOT DETECT); Respiratory Syncytial Virus B Not Detected (NOT DETECT); SARS-COV-2 Not Detected (NOT DETECT)
[2023-02-18] MEDS: losartan 50 mg Tablet PO (22:45)
[2023-02-18] MEDS: amlodipine 10 mg Tablet PO (22:45)
[2023-02-19] VITALS (11 sets, daily range): BP systolic 131–160; BP diastolic 66–79; PULSE 65–85; RESP 16–18; TEMP 36.3–36.8; O2SAT 89–98
[2023-02-19 05:04] LABS: Basophils # 0.1 10^3/uL (0.0-0.1); Basophils % 0.7 %; Eosinophils # 0.1 10^3/uL (0.0-0.8); Eosinophils % 0.7 %; Hematocrit 32.7 % (37-53); Lymphocytes # 1.7 10^3/uL (0.8-4.8); Lymphocytes % 13.8 %; Mean Corpuscular HGB Conc 31.8 g/dL (30-55); Mean Corpuscular Hemoglobin 28.5 pg (27-33); Mean Corpuscular Volume 89.6 fl (82-101); Mean Platelet Volume 8.8 fL (7.4-10.4); Monocytes # 0.7 10^3/uL (0.2-0.9); Monocytes % 5.5 %; Neutrophils # 9.57 10^3/uL (1.8-7.7); Neutrophils % 78.6 %; Nucleated Red Blood Cells % 0 %; Platelet Count 213 10^3/cmm (157-399); Red Blood Count 3.65 10^6/uL (3.85-5.65); Red Cell Distribution Width 15.8 % (12.1-15.1); White Blood Count 12.17 10^3/uL (3.29-11.43)
[2023-02-19 05:28] LABS: Alanine Aminotransferase 12 U/L (0-41); Albumin Level 3.6 g/dL (3.5-5.2); Alkaline Phosphatase 178 U/L (40-130); Anion Gap 17.4 (5-19); Aspartate Amino Transferase 12 U/L (0-40); Blood Urea Nitrogen 28 mg/dL (8-23); Calcium 9.1 mg/dL (8.5-10.5); Carbon Dioxide 28 mmol/L (22-29); Chloride 97 mmol/L (98-107); Globulin 2.3 g/dL (1.3-4.6); Glucose 204 mg/dL (65-115); Magnesium 2.3 mg/dL (1.7-2.3); Osmolality Calculated 297 mOsm/kg (285-295); Potassium 4.4 mmol/L (3.5-5.1); Sodium 138 mmol/L (136-145); Total Bilirubin 0.2 mg/dL (0.15-1.2); Total Protein 5.9 g/dL (6.6-8.7)
[2023-02-19] MEDS: aspirin 81 mg EC Tablet PO (05:29)
[2023-02-19] MEDS: carvedilol 12.5 mg Tablet PO (05:29)
[2023-02-19] MEDS: escitalopram 10 mg Tablet 20 MG PO (05:29)
[2023-02-19] MEDS: levothyroxine 25 mcg Tablet PO (05:29)
[2023-02-19] MEDS: ondansetron 2 mg/ML SDV 2 mL 4 MG IVP ×2 (07:58→20:17)
--- NOTE | 2023-02-19 08:09 | PC.PHAR ---
[facility] IS FAXING [facility] LIST FOR VERIFICATION. 02/19 8 AM
[2023-02-19] MEDS: isosorbide mononitrate ER 60 mg Tablet PO ×2 (09:11→17:23)
[2023-02-19] MEDS: ranolazine (12HR) 500 mg Tablet PO ×2 (09:11→17:23)
[2023-02-19] MEDS: terazosin 5 mg Capsule 10 MG PO ×2 (09:11→17:22)
[2023-02-19] MEDS: hyDRALAzine 10 mg Tablet PO ×2 (09:11→17:22)
[2023-02-19] MEDS: pantoprazole DR 40 mg Tablet PO (09:11)
[2023-02-19] MEDS: FUROsemide 40 mg Tablet 80 MG PO ×2 (09:11→17:22)
[2023-02-19] MEDS: sevelamer 800 mg Tablet 1600 MG PO ×2 (09:11→17:22)
--- NOTE | 2023-02-19 10:10 | PM.PN ---
Subjective Subjective: 3 episodes of vomiting this morning Patient gets symptomatic with change of head position Vertigo positive we will request PT for Rafi-Hallpike and placement over Afebrile Leukocytosis noted Will consult nephro for dialysis tomorrow Vitals/I&O/Wt Last Vital Signs Temp 98.2 F 02/19/23 08:00 Pulse 84 02/19/23 08:00 Resp 18 02/19/23 08:00 BP 157/79 02/19/23 08:00 Pulse Ox 98 02/19/23 08:00 O2 Del Method Nasal Cannula 02/18/23 21:47 O2 Flow Rate 1.5 02/18/23 19:06 02/18/23 02/19/23 02/19/23 22:59 06:59 14:59 Output Total Balance - / Weight last 48 hrs Weight 97.2 kg Physical Exam Narrative: Patient clinically does not look fluid overloaded Euvolemic Abdomen soft S1, S2 GCS 15 Pleasant and cooperative Gets dizzy and symptomatic with change of head position Nystagmus positive Quick eye movement towards right Data 02/19/23 04:44 02/19/23 04:44 A&P Assessment and plan (1) Intractable vomiting: (2) BPPV (benign paroxysmal positional vertigo): (3) Hemodialysis access site with arteriovenous graft: (4) T2DM (type 2 diabetes mellitus): Qualifiers: Diabetes mellitus long filler cigar roller machine insulin use: with long filler cigar roller machine use Diabetes mellitus complication status: with kidney complications Diabetes mellitus complication detail: with chronic kidney disease Chronic kidney disease stage: on chronic dialysis Qualified Code(s): E11.22 - Type 2 diabetes mellitus with diabetic chronic kidney disease; N18.6 - End stage renal disease; 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; Z99.2 - Dependence on renal dialysis (5) ESRD (end stage renal disease): (6) Depression: Qualifiers: Depression Type: major depressive disorder Major depression recurrence: recurrent Active/Remission status: currently active Major depression episode severity: moderate Qualified Code(s): F33.1 - Major depressive disorder, recurrent, moderate Plan BPPV We will request PT for vestibular rehab Add meclizine Concern for viral gastroenteritis as well However he gets symptomatic with change of head position We will consult nephro for dialysis tomorrow I might be able to discharge him tomorrow after dialysis Full code Renal dialysis diet if he keeps having emesis today we can switch to bland diet Patient lives alone active for his age No active chest pain or shortness of breath, viral panel negative Last A1c level is 9.3 :-concern for gastroparesis is low CT abdomen pelvis unremarkable Attestations Medical Necessity Statement*: Possible discharge tomorrow Diagnoses Intractable vomiting R11.10 BPPV (benign paroxysmal positional vertigo) H81.10 Hemodialysis access site with arteriovenous graft Z99.2 T2DM (type 2 diabetes mellitus) E11.22; N18.6; Z79.4; Z99.2 Diabetes mellitus long filler cigar roller machine insulin use: with penitentiary use Diabetes mellitus complication status: with kidney complications Diabetes mellitus complication detail: with chronic kidney disease Chronic kidney disease stage: on chronic dialysis ESRD (end stage renal disease) N18.6 Depression F33.1 Depression Type: major depressive disorder Major depression recurrence: recurrent Active/Remission status: currently active Major depression episode severity: moderate
--- NOTE | 2023-02-19 11:11 | PC.CHAP ---
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 [] Patient/Family/Request visit [] Outpatient visit [] Follow-up visit [] Physician referral [] Code/Alert [x] Routine visit [] Staff referral [] Actively dying [] Patient sleeping [] Family support [] [] Out of room [] Palliative care [] [] Receiving care in room [] Pre-surgical visit [] Trauma [] Long length of stay [] ICU visit [] Other: Relational/Emotional Strength [] Patient feels connected with others/family/visitors/staff [] Distress [x] Loneliness/isolation [] Abandonment Spirituality of Patient [] Person of Zulma [] Attends Nondenominational of their Zulma [] Believes in Prayer [] Reads Bible or Gnosticist materials [] There are Spiritual issues to be addressed [place] Interventions [x] Prayer [] Active listening [] Non-anxious presence [] Spiritual/emotional support [] Crisis/trauma care [] Spiritual counseling [] Bereavement support [] Provided bereavement packet [] Provided Bible/devotional materials [] Provided toy/stuffed animal, coloring book to patient or family member [] Provided Communion [] Anointing/[place] [] Salvation [] Completed spiritual assessment [] Other: Impact on Illness or Injury [] Angry [] Fearful [] Anxious [] Often cries [] Exhaustion [] Unable to work [] Unable to attend buddhism [] Unable to walk/stand [] Unable to read [] Unable to drive [] Unable to eat/drink [] Unable to sleep [] Unable to be with family [] Patient intubated [] Other: Summary Eliazar lost his in May, feels alone. We talked about the Lord Not sure about his spiritual condition Time spent with patient 20
--- NOTE | 2023-02-19 13:34 | PM.CONSULT ---
Providers/Reason For Consult Consulting Physician/Specialty*: [facility]/Nephrology Reason for Consult*: ESRD Attending Physician: Kenya Sanchez MD Primary Care Provider: Carlee Carreon DO History of Present Illness History of Present Illness Eliazar Hogan is a 72 year old male Review of Systems Narrative: OTHER ROS NEGATIVE Medications/Allergies Home Medications Medication Instructions Recorded Confirmed Last Taken Type acetaminophen 500 mg tablet 1,000 mg PO Q6H PRN Pain 05/05/19 02/19/23 11/14/22 History (Tylenol Extra Strength) pantoprazole 40 mg tablet,delayed 40 mg PO QAM 05/05/19 02/19/23 02/18/23 History release terazosin 10 mg capsule 10 mg PO BID 05/05/19 02/19/23 02/18/23 History insulin aspart U-100 100 unit/mL See Rx Instructions .Route 08/22/20 02/19/23 02/18/23 Rx (3 mL) subcutaneous pen (Novolog .COMPLEX #15 mL FlexPen U-100 Insulin aspart) aspirin 81 mg tablet,delayed 81 mg PO QAM 09/01/20 02/19/23 02/18/23 History release clopidogrel 75 mg tablet 75 mg PO BEDTIME 09/01/20 02/19/23 02/17/23 History Diabetic Shoes #1 ea 09/13/20 02/19/23 12/05/21 Rx Diabetic Shoes #1 ea 10/25/20 02/19/23 12/05/21 Rx levothyroxine 25 mcg tablet 25 mcg PO QAM 11/09/20 02/19/23 02/18/23 History cetirizine 10 mg tablet (Zyrtec) 10 mg PO BID 11/14/20 02/19/23 02/18/23 History escitalopram oxalate 20 mg tablet 20 mg PO QAM 01/09/21 02/19/23 02/18/23 History (Lexapro) BIPAP and supplies #1 ea 04/09/21 02/19/23 12/05/21 Rx magnesium oxide 400 mg PO BEDTIME 07/31/21 02/19/23 02/17/23 History rosuvastatin 10 mg tablet (Crestor) 10 mg PO BEDTIME 09/20/21 02/19/23 02/17/23 History amlodipine 10 mg tablet 10 mg PO BEDTIME 09/29/21 02/19/23 02/17/23 History nitroglycerin 0.4 mg sublingual 0.4 mg sublingual Q5M PRN Chest 09/29/21 02/19/23 09/29/21 History tablet (Nitrostat) Pain 2 tabs cholecalciferol (vitamin D3) 50 50 mcg PO BEDTIME 02/13/22 02/19/23 02/17/23 History mcg (2,000 unit) capsule omega 8-izt-njo-fish oil 1,000 mg 2 cap PO BID 02/13/22 02/19/23 02/18/23 History (120 mg-180 mg) capsule (Fish Oil) sevelamer carbonate 800 mg tablet 1,600 mg PO BID 02/13/22 02/19/23 02/18/23 History isosorbide mononitrate 60 mg 60 mg PO BID #60 tabs 08/20/22 02/19/23 02/18/23 Rx tablet,extended release 24 hr irbesartan 300 mg tablet 300 mg PO BEDTIME 09/06/22 02/19/23 02/17/23 History allopurinol 300 mg tablet 300 mg PO QAM 11/14/22 02/19/23 02/18/23 History folic acid 0.8 mg capsule 0.4 mg PO BEDTIME 11/14/22 02/19/23 02/17/23 History furosemide 80 mg tablet (Lasix) 80 mg PO BID 11/14/22 02/19/23 02/18/23 History hydralazine 10 mg tablet 10 mg PO TID 11/14/22 02/19/23 02/18/23 History flash glucose scanning reader #1 ea 01/31/23 02/19/23 Unknown Rx (FreeStyle Inocencia 14 Day [place]) flash glucose sensor (FreeStyle #1 ea 01/31/23 02/19/23 Unknown Rx Inocencia 14 Day Sensor kit) ranolazine 500 mg tablet,extended 500 mg PO BID #14 tabs 02/18/23 02/19/23 02/18/23 Rx release,12 hr carvedilol 25 mg tablet 12.5 mg PO BID 02/19/23 02/19/23 02/18/23 History insulin detemir U-100 100 unit/mL 20 unit SUBCUT BEDTIME 1102/19/23 02/18/23 History (3 mL) subcutaneous pen (Levemir FlexPen) Allergies Allergy/AdvReac Type Severity Reaction Status Date / Time chicken derived Allergy Unknown ADR-Nausea Verified 02/18/23 18:30 morphine AdvReac Mild dizzy & Verified 02/18/23 18:30 nauseous Current Medications Generic Name Dose Route Start Last Admin Trade Name Freq PRN Reason Stop Dose Admin Amlodipine Besylate 10 mg 02/18/23 22:20 02/18/23 22:45 Amlodipine 10 Mg Tablet PO 10 mg BEDTIME SAYRA Administration Aspirin 81 mg 02/19/23 06:00 02/19/23 05:29 Aspirin 81 Mg Ec Tablet PO 81 mg QAM SAYRA Administration Carvedilol 12.5 mg 02/19/23 06:00 02/19/23 05:29 Carvedilol 12.5 Mg Tablet PO 12.5 mg QAM SAYRA Administration Escitalopram Oxalate 20 mg 02/19/23 06:00 02/19/23 05:29 Escitalopram 10 Mg Tablet PO 20 mg QAM SAYRA Administration Furosemide 80 mg 02/19/23 09:00 02/19/23 09:11 Furosemide 40 Mg Tablet PO 80 mg BID SAYRA Administration Hydralazine HCl 10 mg 02/19/23 09:00 02/19/23 09:11 Hydralazine 10 Mg Tablet PO 10 mg BID SAYRA Administration Isosorbide Mononitrate 60 mg 02/19/23 09:00 02/19/23 09:11 Isosorbide Mononitrate Er 60 Mg Tablet PO 60 mg BID SAYRA Administration Levothyroxine Sodium 25 mcg 02/19/23 06:00 02/19/23 05:29 Levothyroxine 25 Mcg Tablet PO 25 mcg QAM SAYRA Administration Losartan Potassium 50 mg 02/18/23 22:20 02/18/23 22:45 Losartan 50 Mg Tablet PO 50 mg BEDTIME SAYRA Administration Ondansetron HCl 4 mg 02/18/23 22:00 02/19/23 07:58 Ondansetron 2 Mg/Ml Sdv 2 Ml IVP 4 mg Q8H PRN Administration vomiting, or N/V if npo Pantoprazole Sodium 40 mg 02/19/23 09:00 02/19/23 09:[address] 40 Mg Tablet PO 40 mg DAILY SAYRA Administration Ranolazine 500 mg 02/19/23 09:00 02/19/23 09:11 Ranolazine (12hr) 500 Mg Tablet PO 500 mg BID SAYRA Administration Sevelamer Carbonate 1,600 mg 02/19/23 09:00 02/19/23 09:11 Sevelamer 800 Mg Tablet PO 1,600 mg BID SAYRA Administration Terazosin HCl 10 mg 02/19/23 09:00 02/19/23 09:11 Terazosin 5 Mg Capsule PO 10 mg BID SAYRA Administration PFSH Acute PFSH: Medical History Acute kidney injury superimposed on CKD Anemia CAD (coronary artery disease) Cardiac enzymes elevated Carotid stenosis, bilateral Chest pain Chronic back pain Chronic kidney disease Chronic kidney disease (CKD) stage G5/A1, glomerular filtration rate (GFR) less than or equal to 15 mL/min/1.73 square meter and albuminuria creatinine ratio less than 30 mg/g Congestive 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 CVA (cerebral vascular accident) Diabetes 1.5, 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 Dyslipidemia ESRD (end stage renal disease) Essential hypertension Hemodialysis access site with arteriovenous graft History of 2019 novel coronavirus disease (COVID-19) Hypothyroidism NSTEMI (non-ST elevated myocardial infarction) KAITLYNN (obstructive sleep apnea) Paget's disease Surgical History History of esophagogastroduodenoscopy (EGD) 10 yrs ago Hx of cholecystectomy Previous back surgery S/P angioplasty with stent S/P cataract extraction S/P hemodialysis catheter insertion Family History Mother CAD (coronary artery disease) Stroke Sister Hypertension Social History Smoking and tobacco/nicotine status: never used tobacco/nicotine Alcohol intake: never Substance/Drug Use: never Household members: spouse Marital status: service: Yes branch: [employer] Current occupational status: employed Current occupation: [employer] Current gender identity: Male Vitals/I&O/Wt Last Vital Signs Temp 97.8 F 02/19/23 12:00 Pulse 75 02/19/23 12:00 Resp 16 02/19/23 12:00 BP 160/66 11/01/23 12:00 Pulse Ox 90 02/19/23 12:00 O2 Del Method Nasal Cannula 02/18/23 21:47 O2 Flow Rate 1.5 02/18/23 19:06 02/18/23 02/19/23 02/19/23 22:59 06:59 14:59 Output Total 20 / Balance -20 / -20 Weight last 48 hrs Weight 97.2 kg Data 02/19/23 04:44 02/19/23 04:44 Consult Attestations Medical Necessity Statement: PER MEDICIEN TEAM Coding Level of Care Code Acute Code for Chg Fwd Diagnoses
[2023-02-19] MEDS: meclizine 25 mg tablet PO ×2 (14:17→20:17)
[2023-02-19] MEDS: losartan 50 mg Tablet PO (20:17)
[2023-02-19] MEDS: allopurinol 300 mg Tablet PO (20:17)
[2023-02-19] MEDS: amlodipine 10 mg Tablet PO (20:17)
[2023-02-19] MEDS: clopidogrel 75 mg Tablet PO (20:17)
[2023-02-19 22:30] LABS: Glucose Point of Care 170 mg/dL (70-110)
[2023-02-20] VITALS (13 sets, daily range): BP systolic 122–171; BP diastolic 68–89; PULSE 64–92; RESP 14–18; TEMP 36.6–37.3; O2SAT 88–94
[2023-02-20 05:04] LABS: Basophils # 0.1 10^3/uL (0.0-0.1); Basophils % 0.8 %; Eosinophils # 0.2 10^3/uL (0.0-0.8); Eosinophils % 1.8 %; Hematocrit 32.6 % (37-53); Lymphocytes # 1.3 10^3/uL (0.8-4.8); Lymphocytes % 9.9 %; Mean Corpuscular Hemoglobin 28.1 pg (27-33); Mean Corpuscular Volume 90.8 fl (82-101); Mean Platelet Volume 8.8 fL (7.4-10.4); Monocytes # 0.9 10^3/uL (0.2-0.9); Monocytes % 6.7 %; Neutrophils # 10.63 10^3/uL (1.8-7.7); Neutrophils % 80.3 %; Nucleated Red Blood Cells % 0 %; Platelet Count 199 10^3/cmm (157-399); Red Blood Count 3.59 10^6/uL (3.85-5.65); Red Cell Distribution Width 15.6 % (12.1-15.1); White Blood Count 13.23 10^3/uL (3.29-11.43)
[2023-02-20 05:31] LABS: Anion Gap 11.5 (5-19); Blood Urea Nitrogen 38 mg/dL (8-23); Calcium 8.6 mg/dL (8.5-10.5); Carbon Dioxide 33 mmol/L (22-29); Chloride 99 mmol/L (98-107); Glucose 185 mg/dL (65-115); Osmolality Calculated 302 mOsm/kg (285-295); Potassium 4.5 mmol/L (3.5-5.1); Sodium 139 mmol/L (136-145)
--- NOTE | 2023-02-20 07:16 | P.DS_ITS ---
Discharge Providers Date of Admission: 02/18/23 20:55 Date of Discharge: February 20, 2023 Attending Provider at Admission: Homa Adame MD Attending Provider at Discharge: Kenya Sanchez MD Primary Care Provider: Carlee Carreon DO Diagnoses at Discharge Discharge Diagnosis (1) Intractable vomiting: Status: Acute (2) BPPV (benign paroxysmal positional vertigo): Status: Acute (3) Hemodialysis access site with arteriovenous graft: Status: Acute (4) T2DM (type 2 diabetes mellitus): Status: Acute Qualifiers: Chronic kidney disease stage: on chronic dialysis Diabetes mellitus complication detail: with chronic kidney disease Diabetes mellitus complication status: with kidney complications Diabetes mellitus intermodal dispatcher insulin use: with correction use Qualified Code(s): E11.22 - Type 2 diabetes mellitus with diabetic chronic kidney disease; N18.6 - End stage renal disease; Z79.4 - terminal operator (current) use of insulin; Z99.2 - Dependence on renal dialysis (5) ESRD (end stage renal disease): Status: Acute (6) Depression: Status: Acute Qualifiers: Active/Remission status: currently active Depression Type: major depressive disorder Major depression episode severity: moderate Major depression recurrence: recurrent Qualified Code(s): F33.1 - Major depressive disorder, recurrent, moderate Reason for Visit Reason for Visit: N/V Hospital Course Hospital Course 72-year-old male who was admitted for management valuation of nausea vomiting, he was concern for viral gastroenteritis however on my examination patient was showing signs of nystagmus with head position change, for BPPV physical therapy was asked to do at placement over patient did show nystagmus with rapid eye movement towards right with head position change, he was dialyzed in the hospital on 02/20 as per his schedule, he did respond to meclizine, vomiting improved but he still feeling dizziness, he will need vestibular rehab. He does not have any focal deficits, no hearing deficit. Physical Exam Narrative: Awake and alert Euvolemic GCS 15 Pleasant and cooperative S1, S2 Abdomen soft No active nausea Discharge Data Studies Completed and Pending Completed Studies During Hospitalization Category Date Time Status CT abdomen pelvis wo con [id number] Stat Cat Scan 02/18/23 18:57 Completed XR chest 1V portable [id number] Stat Exams 02/18/23 18:14 Completed Radiology Impressions Chest X-Ray 02/18/23 18:14 IMPRESSION: 1. No focal consolidation. 2. Lucency projecting through the dome of the liver may represent loops colon interspersed between the liver and anterior abdominal wall. A lateral chest radiograph may help to confirm this finding. Abdomen/Pelvis CT 02/18/23 18:57 IMPRESSION: 1. No bowel obstruction or inflammatory process associated with the bowel. 2. No free air or significant free fluid in the abdomen or pelvis. 3. The appendix is not visualized but there are no secondary signs of acute appendicitis. COMMENTS: Consistent with the [employer]'s Incidental Findings Committee white paper (J Am Sosa Radiol 2018): Any incidental renal lesion less than 1 cm or classified as too small to characterize, or any incidental cystic renal lesion characterized as simple-appearing, is likely benign. No follow-up imaging is recommended for these lesions per consensus recommendations based on imaging criteria. Laboratory Results WBC 13.23 10^3/uL (3.29-11.43) H 02/20/23 04:56 RBC 3.59 10^6/uL (3.85-5.65) L 02/20/23 04:56 Hgb 10.10 g/dL (11.27-16.99) L 02/20/23 04:56 Hct 32.6 % (37-53) L 02/20/23 04:56 MCV 90.8 fl (82-101) 02/20/23 04:56 MCH 28.1 pg (27-33) 02/20/23 04:56 MCHC 31.0 g/dL (30-55) 02/20/23 04:56 RDW 15.6 % (12.1-15.1) H 02/20/23 04:56 Plt Count 199 10^3/cmm (157-399) 02/20/23 04:56 MPV 8.8 fL (7.4-10.4) 02/20/23 04:56 Neut % (Auto) 80.3 % 02/20/23 04:56 Lymph % (Auto) 9.9 % 02/20/23 04:56 [place] % (Auto) 6.7 % 02/20/23 04:56 Eos % (Auto) 1.8 % 02/20/23 04:56 Baso % (Auto) 0.8 % 02/20/23 04:56 Neut # (Auto) 10.63 10^3/uL (1.8-7.7) H 02/20/23 04:56 Lymph # (Auto) 1.3 10^3/uL (0.8-4.8) 02/20/23 04:56 [place] # (Auto) 0.9 10^3/uL (0.2-0.9) 02/20/23 04:56 Eos # (Auto) 0.2 10^3/uL (0.0-0.8) 02/20/23 04:56 Baso # (Auto) 0.1 10^3/uL (0.0-0.1) 02/20/23 04:56 Nucleated RBC % (auto) 0 % 02/20/23 04:56 Nucleated RBCs # 0.0 /100WBC 02/20/23 04:56 Sodium 139 mmol/L (136-145) 02/20/23 04:56 Potassium 4.5 mmol/L (3.5-5.1) 02/20/23 04:56 Chloride 99 mmol/L (98-107) 02/20/23 04:56 Carbon Dioxide 33 mmol/L (22-29) H 02/20/23 04:56 Anion Gap 11.5 (5-19) 02/20/23 04:56 BUN 38 mg/dL (8-23) H 02/20/23 04:56 Creatinine 4.9 mg/dL (0.7-1.2) H 02/20/23 04:56 GFR Calculation Not Reportable 02/20/23 04:56 Glucose 185 mg/dL (65-115) H 02/20/23 04:56 POC Glucose 170 mg/dL (70-110) H 02/19/23 22:16 Calculated Osmolality 302 mOsm/kg (285-295) H 02/20/23 04:56 Calcium 8.6 mg/dL (8.5-10.5) 02/20/23 04:56 Magnesium 2.3 mg/dL (1.7-2.3) 02/19/23 04:44 Total Bilirubin 0.2 mg/dL (0.15-1.2) 02/19/23 04:44 AST 12 U/L (0-40) 02/19/23 04:44 ALT 12 U/L (0-41) 02/19/23 04:44 Alkaline Phosphatase 178 U/L (40-130) H 02/19/23 04:44 Total Protein 5.9 g/dL (6.6-8.7) L D 02/19/23 04:44 Albumin 3.6 g/dL (3.5-5.2) 02/19/23 04:44 Globulin 2.3 g/dL (1.3-4.6) 02/19/23 04:44 Lipase 22 U/L (13-60) 02/18/23 18:24 Nasal Influ A H1 2009 PCR Not detected (NOT DETECT) 02/18/23 20:43 Adenovirus (PCR) Not detected (NOT DETECT) 02/18/23 20:43 C. pneumoniae DNA (PCR) Not detected (NOT DETECT) 02/18/23 20:43 Coronavirus 229E (PCR) Not detected (NOT DETECT) 02/18/23 20:43 Human Metapneumovir PCR Not detected (NOT DETECT) 02/18/23 20:43 Influenza A (H1) PCR Not detected (NOT DETECT) 02/18/23 20:43 Influenza A (H3) PCR Not detected (NOT DETECT) 02/18/23 20:43 Influenza Type A (PCR) Not detected (NOT DETECT) 02/18/23 20:43 Influenza Type B (PCR) Not detected (NOT DETECT) 02/18/23 20:43 M. pneumoniae (PCR) Not detected (NOT DETECT) 02/18/23 20:43 Parainfluenza 1 (PCR) Not detected (NOT DETECT) 02/18/23 20:43 Parainfluenza 2 (PCR) Not detected (NOT DETECT) 02/18/23 20:43 Parainfluenza 3 (PCR) Not detected (NOT DETECT) 02/18/23 20:43 Parainfluenza 4 (PCR) Not detected (NOT DETECT) 02/18/23 20:43 RSV Type A (PCR) Not detected (NOT DETECT) 02/18/23 20:43 RSV Type B (PCR) Not detected (NOT DETECT) 02/18/23 20:43 Entero/Rhino (PCR) Not detected (NOT DETECT) 02/18/23 20:43 SARS-CoV-2 (PCR) Not detected (NOT DETECT) 02/18/23 20:43 Vitals Last Vital Signs Temp 97.9 F 02/20/23 04:00 Pulse 65 11/02/23 06:00 Resp 18 02/20/23 04:00 BP 125/72 02/20/23 04:00 Pulse Ox 94 02/20/23 04:00 O2 Del Method Room Air 02/20/23 04:00 O2 Flow Rate 1.5 02/18/23 19:06 Discharge Plan Discharge Patient Disposition: Home Condition: Stable Prescriptions: New meclizine 50 mg tablet 50 mg PO TID PRN (Reason: dizziness) Qty: 20 0RF Continued pantoprazole 40 mg tablet,delayed release (DR/EC) 40 mg PO QAM terazosin 10 mg capsule 10 mg PO BID acetaminophen [Tylenol Extra Strength] 500 mg tablet 1,000 mg PO Q6H PRN (Reason: Pain) Novolog FlexPen U-100 Insulin 100 unit/mL (3 mL) insulin pen See Rx Instructions .ROUTE .COMPLEX Qty: 15 0RF Rx Instructions: SLIDING SCALE Before or right after meals prn (DME) Diabetic Shoes See Rx Instructions .ROUTE .MEDSUPPLY Qty: 1 0RF Rx Instructions: As directed [facility] [employer] with 3 pairs of inserts (DME) Diabetic Shoes See Rx Instructions .ROUTE .MEDSUPPLY Qty: 1 0RF Rx Instructions: As directed By [facility] [employer] [facility] with 3 pairs of inserts magnesium oxide 400 mg magnesium capsule 400 mg PO BEDTIME rosuvastatin [Crestor] 10 mg tablet 10 mg PO BEDTIME irbesartan 300 mg tablet 300 mg PO BEDTIME sevelamer carbonate 800 mg tablet 1,600 mg PO BID cholecalciferol (vitamin D3) 50 mcg (2,000 unit) capsule 50 mcg PO BEDTIME omega 4-dku-ltc-fish oil [Fish Oil] 1,000 mg (120 mg-180 mg) capsule 2 cap PO BID (DME) FreeStyle Inocencia 14 Day Sensor Kit See Rx Instructions .Route Qty: 1 0RF Rx Instructions: As directed ([facility] [place]) FreeStyle Inocencia 14 Day [place] Misc See Rx Instructions .Route Qty: 1 0RF Rx Instructions: As directed ([facility] [place]) BIPAP and supplies See Rx Instructions .Route .MEDSUPPLY Qty: 1 0RF Rx Instructions: with 2L of oxygen when in use levothyroxine 25 mcg Tablet 25 mcg PO QAM clopidogrel 75 mg tablet 75 mg PO BEDTIME Hold Instructions: Resume on 07/10/21. aspirin 81 mg tablet,delayed release (DR/EC) 81 mg PO QAM Hold Instructions: Resume on 07/07/21. cetirizine [Zyrtec] 10 mg Tablet 10 mg PO BID Lexapro 20 mg tablet 20 mg PO QAM isosorbide mononitrate 60 mg Tablet Extended Release 24 Hr 60 mg PO BID Qty: 60 0RF furosemide [Lasix] 80 mg Tablet 80 mg PO BID allopurinol 300 mg Tablet 300 mg PO QAM folic acid 0.8 mg Capsule 0.4 mg PO BEDTIME hydralazine 10 mg tablet 10 mg PO TID amlodipine 10 mg Tablet 10 mg PO BEDTIME nitroglycerin [Nitrostat] 0.4 mg Tablet, Sublingual 0.4 mg SUBLINGUAL Q5M PRN (Reason: Chest Pain) Rx Instructions: do not exceed 3 doses per episode ranolazine 500 mg tablet extended release 12 hr 500 mg PO BID Qty: 14 0RF carvedilol 25 mg Tablet 12.5 mg PO BID Levemir FlexPen 100 unit/mL (3 mL) Insulin Pen 20 unit SUBCUT BEDTIME Discharge Orders: Discharge Order (Routine); Ordered 02/20/23 Ordered By: Kenya Sanchez Referrals: Carlee Carreon DO [Primary Care Provider] - Patient Instructions: Opioid Safety Discharge Attestations Time Spent in Discharge Care*: greater than 30 min Status at Discharge: Cognitive status at discharge: cognitively intact , Behavioral status at discharge: cooperative , Quality Metrics Clinical Quality Measures [ No reported AMI, CVA or VTE this stay] Coding Level of Care Code Acute Code for Chg Fwd Diagnoses Intractable vomiting R11.10 BPPV (benign paroxysmal positional vertigo) H81.10 Hemodialysis access site with arteriovenous graft Z99.2 T2DM (type 2 diabetes mellitus) E11.22; N18.6; Z79.4; Z99.2 Chronic kidney disease stage: on chronic dialysis Diabetes mellitus complication detail: with chronic kidney disease Diabetes mellitus complication status: with kidney complications Diabetes mellitus intermodal dispatcher insulin use: with intermodal dispatcher use ESRD (end stage renal disease) N18.6 Depression F33.1 Active/Remission status: currently active Depression Type: major depressive disorder Major depression episode severity: moderate Major depression recurrence: recurrent
[2023-02-20 08:01] LABS: Glucose Point of Care 167 mg/dL (70-110)
--- NOTE | 2023-02-20 08:59 | PC.HD ---
Patient ID'd/assessed; stable for HD. Electronic consent for HD and telenephrology signed by patient. Upon accessing fistula with venous needle, flow was sluggish and a large clot was pulled from the site. Needle was readjusted and flow was improved. Treatment initiated with very slow blood flow rate. Patient voiced no discomfort at access, machine venous flow within acceptable range. Blood flow rate turned up to prescribed rate of 350 mL/min without issue.
[2023-02-20 11:13] LABS: Glucose Point of Care 155 mg/dL (70-110)
[2023-02-20] MEDS: FUROsemide 40 mg Tablet 80 MG PO ×2 (12:48→17:03)
[2023-02-20] MEDS: ranolazine (12HR) 500 mg Tablet PO ×2 (12:48→17:03)
[2023-02-20] MEDS: sevelamer 800 mg Tablet 1600 MG PO ×2 (12:49→17:03)
[2023-02-20] MEDS: isosorbide mononitrate ER 60 mg Tablet PO ×2 (12:49→17:03)
[2023-02-20] MEDS: hyDRALAzine 10 mg Tablet PO ×2 (12:49→17:03)
[2023-02-20] MEDS: terazosin 5 mg Capsule 10 MG PO ×2 (12:49→17:03)
[2023-02-20] MEDS: meclizine 25 mg tablet PO ×2 (12:50→20:37)
[2023-02-20] MEDS: pantoprazole DR 40 mg Tablet PO (12:50)
[2023-02-20] MEDS: levothyroxine 25 mcg Tablet PO (12:51)
[2023-02-20] MEDS: escitalopram 10 mg Tablet 20 MG PO (12:54)
[2023-02-20] MEDS: aspirin 81 mg EC Tablet PO (12:54)
[2023-02-20] MEDS: carvedilol 12.5 mg Tablet PO (12:54)
--- NOTE | 2023-02-20 13:37 | PC.HD ---
Telenephrologist wrote for 4 hour treatment; patient states his regular treatment is 3.5. Claims Sorter was amenable to shortening treatment. Treatment time was changed to 3.5 hours; UF goal of 3000 mL was met, even with shortened treatment.
--- NOTE | 2023-02-20 14:25 | P.CONIM_ITS ---
Providers/Reason For Consult Consulting Physician/Specialty*: [facility]/Nephrology Reason for Consult*: ESRD Attending Physician: Kenya Sanchez MD Primary Care Provider: Carlee Carreon DO History of Present Illness History of Present Illness Eliazar Hogan is a 72 year old male with PMH of HTN , DM , Dyslipidemia , ESRD - on HD per TTS schedule , CAD presented to ER for intractable nausea and vomiting. c/o generalized weakness. He is getting hD today , tolerating well. Review of Systems Narrative: OTHER ROS NEGATIVE Medications/Allergies Home Medications Medication Instructions Recorded Confirmed Last Taken Type acetaminophen 500 mg tablet 1,000 mg PO Q6H PRN Pain 05/05/19 02/19/23 11/14/22 History (Tylenol Extra Strength) pantoprazole 40 mg tablet,delayed 40 mg PO QAM 05/05/19 02/19/23 02/18/23 History release terazosin 10 mg capsule 10 mg PO BID 05/05/19 02/19/23 02/18/23 History insulin aspart U-100 100 unit/mL See Rx Instructions .Route 08/22/20 02/19/23 02/18/23 Rx (3 mL) subcutaneous pen (Novolog .COMPLEX #15 mL FlexPen U-100 Insulin aspart) aspirin 81 mg tablet,delayed 81 mg PO QAM 09/01/20 02/19/23 02/18/23 History release clopidogrel 75 mg tablet 75 mg PO BEDTIME 09/01/20 02/19/23 02/17/23 History Diabetic Shoes #1 ea 09/13/20 02/19/23 12/05/21 Rx Diabetic Shoes #1 ea 10/25/20 02/19/23 12/05/21 Rx levothyroxine 25 mcg tablet 25 mcg PO QAM 11/09/20 02/19/23 02/18/23 History cetirizine 10 mg tablet (Zyrtec) 10 mg PO BID 11/14/20 02/19/23 02/18/23 History escitalopram oxalate 20 mg tablet 20 mg PO QAM 01/09/21 02/19/23 02/18/23 History (Lexapro) BIPAP and supplies #1 ea 04/09/21 02/19/23 12/05/21 Rx magnesium oxide 400 mg PO BEDTIME 07/31/21 02/19/23 02/17/23 History rosuvastatin 10 mg tablet (Crestor) 10 mg PO BEDTIME 09/20/21 02/19/23 02/17/23 History amlodipine 10 mg tablet 10 mg PO BEDTIME 09/29/21 02/19/23 02/17/23 History nitroglycerin 0.4 mg sublingual 0.4 mg sublingual Q5M PRN Chest 09/29/21 02/19/23 09/29/21 History tablet (Nitrostat) Pain 2 tabs cholecalciferol (vitamin D3) 50 50 mcg PO BEDTIME 02/13/22 02/19/23 02/17/23 History mcg (2,000 unit) capsule omega [id number]-fish oil 1,000 mg 2 cap PO BID 02/13/22 02/19/23 02/18/23 History (120 mg-180 mg) capsule (Fish Oil) sevelamer carbonate 800 mg tablet 1,600 mg PO BID 02/13/22 02/19/23 02/18/23 History isosorbide mononitrate 60 mg 60 mg PO BID #60 tabs 08/20/22 02/19/23 02/18/23 Rx tablet,extended release 24 hr irbesartan 300 mg tablet 300 mg PO BEDTIME 09/06/22 02/19/23 02/17/23 History allopurinol 300 mg tablet 300 mg PO QAM 11/14/22 02/19/23 02/18/23 History folic acid 0.8 mg capsule 0.4 mg PO BEDTIME 11/14/22 02/19/23 02/17/23 History furosemide 80 mg tablet (Lasix) 80 mg PO BID 11/14/22 02/19/23 02/18/23 History hydralazine 10 mg tablet 10 mg PO TID 11/14/22 02/19/23 02/18/23 History flash glucose scanning reader #1 ea 01/31/23 02/19/23 Unknown Rx (FreeStyle [facility] [place]) flash glucose sensor (FreeStyle #1 ea 01/31/23 02/19/23 Unknown Rx [facility] 14 Day Sensor kit) ranolazine 500 mg tablet,extended 500 mg PO BID #14 tabs 02/18/23 02/19/2301/21 Rx release,12 hr carvedilol 25 mg tablet 12.5 mg PO BID 02/19/23 02/19/23 02/18/23 History insulin detemir U-100 100 unit/mL 20 unit SUBCUT BEDTIME 02/19/23 02/19/23 02/18/23 History (3 mL) subcutaneous pen (Levemir FlexPen) meclizine 50 mg tablet 50 mg PO TID PRN dizziness #20 tabs 02/20/23 Unknown Rx Allergies Allergy/AdvReac Type Severity Reaction Status Date / Time chicken derived Allergy Unknown ADR-Nausea Verified 02/18/23 18:30 morphine AdvReac Mild dizzy & Verified 02/18/23 18:30 nauseous Current Medications Generic Name Dose Route Start Last Admin Trade Name Freq PRN Reason Stop Dose Admin Allopurinol 300 mg 02/19/23 21:00 02/19/23 20:17 Allopurinol 300 Mg Tablet PO 300 mg BEDTIME SAYRA Administration Amlodipine Besylate 10 mg 02/18/23 22:20 02/19/23 20:17 Amlodipine 10 Mg Tablet PO 10 mg BEDTIME SAYRA Administration Aspirin 81 mg 02/19/23 06:00 02/20/23 12:54 Aspirin 81 Mg Ec Tablet PO 81 mg QAM SAYRA Administration Carvedilol 12.5 mg 02/19/23 06:00 02/20/23 12:54 Carvedilol 12.5 Mg Tablet PO 12.5 mg QAM SAYRA Administration Clopidogrel Bisulfate 75 mg 02/19/23 21:00 02/19/23 20:17 Clopidogrel 75 Mg Tablet PO 75 mg BEDTIME SAYRA Administration Escitalopram Oxalate 20 mg 02/19/23 06:00 02/20/23 12:54 Escitalopram 10 Mg Tablet PO 20 mg QAM SAYRA Administration Furosemide 80 mg 02/19/23 09:00 02/20/23 12:48 Furosemide 40 Mg Tablet PO 80 mg BID SAYRA Administration Hydralazine HCl 10 mg 02/19/23 09:00 02/20/23 12:49 Hydralazine 10 Mg Tablet PO 10 mg BID SAYRA Administration Insulin Glargine 20 unit 02/19/23 21:00 02/19/23 22:17 Insulin Glargine 100 Units/1 Ml SUBCUT Not Given BEDTIME SAYRA Isosorbide Mononitrate 60 mg 02/19/23 09:00 02/20/23 12:49 Isosorbide Mononitrate Er 60 Mg Tablet PO 60 mg BID SAYRA Administration Levothyroxine Sodium 25 mcg 02/19/23 06:00 02/20/23 12:51 Levothyroxine 25 Mcg Tablet PO 25 mcg QAM SAYRA Administration Losartan Potassium 50 mg 02/18/23 22:20 02/19/23 20:17 Losartan 50 Mg Tablet PO 50 mg BEDTIME SAYRA Administration Meclizine HCl 25 mg 02/19/23 15:00 02/20/23 13:31 Meclizine 25 Mg Tablet PO Not Given TID SAYRA Ondansetron HCl 4 mg 02/18/23 22:00 02/19/23 20:17 Ondansetron 2 Mg/Ml Sdv 2 Ml IVP 4 mg Q8H PRN Administration vomiting, or N/V if npo Pantoprazole Sodium 40 mg 02/19/23 09:00 02/20/23 12:[address] 40 Mg Tablet PO 40 mg DAILY SAYRA Administration Ranolazine 500 mg 02/19/23 09:00 02/20/23 12:48 Ranolazine (12hr) 500 Mg Tablet PO 500 mg BID SAYRA Administration Sevelamer Carbonate 1,600 mg 02/19/23 09:00 02/20/23 12:49 Sevelamer 800 Mg Tablet PO 1,600 mg BID SAYRA Administration Terazosin HCl 10 mg 02/19/23 09:00 02/20/23 12:49 Terazosin 5 Mg Capsule PO 10 mg BID SAYRA Administration PFSH Acute PFSH: Medical History Acute kidney injury superimposed on CKD Anemia CAD (coronary artery disease) Cardiac enzymes elevated Carotid stenosis, bilateral Chest pain Chronic back pain Chronic kidney disease Chronic kidney disease (CKD) stage G5/A1, glomerular filtration rate (GFR) less than or equal to 15 mL/min/1.73 square meter and albuminuria creatinine ratio less than 30 mg/g Congestive 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 CVA (cerebral vascular accident) Diabetes 1.5, 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 Dyslipidemia ESRD (end stage renal disease) Essential hypertension Hemodialysis access site with arteriovenous graft History of 2019 novel coronavirus disease (COVID-19) Hypothyroidism NSTEMI (non-ST elevated myocardial infarction) KAITLYNN (obstructive sleep apnea) Paget's disease Surgical History History of esophagogastroduodenoscopy (EGD) 10 yrs ago Hx of cholecystectomy Previous back surgery S/P angioplasty with stent S/P cataract extraction S/P hemodialysis catheter insertion Family History Mother CAD (coronary artery disease) Stroke Sister Hypertension Social History Smoking and tobacco/nicotine status: never used tobacco/nicotine Alcohol intake: never Substance/Drug Use: never Household members: spouse Marital status: service: Yes branch: [employer] Current occupational status: employed Current occupation: [employer] Current gender identity: Male Vitals/I&O/Wt Last Vital Signs Temp 98.4 F 02/20/23 13:36 Pulse 80 02/20/23 13:36 Resp 16 02/20/23 13:36 BP 171/89 02/20/23 13:36 Pulse Ox 88 L 02/20/23 12:46 O2 Del Method Nasal Cannula 02/20/23 12:45 O2 Flow Rate 4 02/20/23 12:45 02/19/23 02/20/23 02/20/23 22:59 06:59 14:59 Intake Total 520 / 520 Output Total 0 / 0 200 / 200 3400 / 3400 Balance 0 / 0 -200 / -200 -2880 / -2880 Weight last 48 hrs Weight 93.1 kg Weight 97.2 kg Physical Exam Narrative: AWAKE ,A LERT NO DISTRESS S1S2 RRR PER REPORT LUNGS CLEAR HUNG NO EDEMA Data 02/20/23 04:56 02/20/23 04:56 A&P Assessment and plan (1) ESRD (end stage renal disease): 1. ESRD 2. Hypertension 3.dm 4. Intractable nausea/Vomiting 5. Cad Plan : HD today , UF as tolerated , Hb @ goal. Consult Attestations Medical Necessity Statement: per medicine team Coding Level of Care Code Acute Code for Chg Fwd Diagnoses ESRD (end stage renal disease) N18.6
--- NOTE | 2023-02-20 16:13 | PC.NURSE ---
PER CLINIC 03/17 IS THE SOONEST THEY CAN SCHEDULE PATIENT FOR A FOLLOW UP APPOINTMENT BUT WILL CALL IF ANYTHING COMES AVAILABLE.
[2023-02-20 17:00] LABS: Glucose Point of Care 142 mg/dL (70-110)
--- NOTE | 2023-02-20 18:11 | PM.PN ---
Subjective Subjective: Patient feeling dizziness Discharge orders consult Vitals/I&O/Wt Last Vital Signs Temp 98.5 F 02/20/23 15:22 Pulse 88 02/20/23 15:22 Resp 16 02/20/23 15:22 BP 144/82 02/20/23 15:22 Pulse Ox 91 02/20/23 15:22 O2 Del Method Nasal Cannula 02/20/23 15:22 O2 Flow Rate 4 02/20/23 12:45 02/20/23 02/20/23 02/20/23 06:59 14:59 22:59 Intake Total 520 / 520 Output Total 200 / 200 3400 / 3400 Balance -200 / -200 -2880 / -2880 Weight last 48 hrs Weight 93.1 kg Weight 97.2 kg Physical Exam Narrative: Awake and alert Euvolemic abdomen soft Pleasant and cooperative Nonfocal neuro exam GCS 15 Data 02/20/23 04:56 02/20/23 04:56 A&P Assessment and plan (1) BPPV (benign paroxysmal positional vertigo): Plan Dialysis today Possible discharge tomorrow Cancel discharge orders for today Continue meclizine Appreciated PT evaluation Attestations Medical Necessity Statement*: Discharge tomorrow Diagnoses BPPV (benign paroxysmal positional vertigo) H81.10
[2023-02-20] MEDS: allopurinol 300 mg Tablet PO (20:37)
[2023-02-20] MEDS: amlodipine 10 mg Tablet PO (20:37)
[2023-02-20] MEDS: losartan 50 mg Tablet PO (20:37)
[2023-02-20] MEDS: clopidogrel 75 mg Tablet PO (20:37)
[2023-02-20 20:55] LABS: Glucose Point of Care 189 mg/dL (70-110)
[2023-02-20] MEDS: metoclopramide 5 mg/mL SDV 2 mL IVP (21:15)
[2023-02-20] MEDS: insulin glargine 100 units/1 mL 20 UNIT SUBCUT (21:16)
[2023-02-20] MEDS: ondansetron 2 mg/ML SDV 2 mL 4 MG IVP (23:43)
[2023-02-20 23:56] LABS: Glucose Point of Care 164 mg/dL (70-110)
[2023-02-21] VITALS (9 sets, daily range): BP systolic 105–135; BP diastolic 59–70; PULSE 64–82; RESP 16–18; TEMP 36.5–36.9; O2SAT 89–92
[2023-02-21 07:04] LABS: Glucose Point of Care 197 mg/dL (70-110)
--- NOTE | 2023-02-21 08:35 | PM.PN ---
Subjective Subjective: s/p HD yesterday Medications: Reviewed: Yes Vitals/I&O/Wt Last Vital Signs Temp 97.9 F 02/21/23 08:05 Pulse 66 02/21/23 08:05 Resp 16 02/21/23 08:05 BP 105/64 02/21/23 08:05 Pulse Ox 92 02/21/23 08:05 O2 Del Method Nasal Cannula 02/21/23 08:05 O2 Flow Rate 2 02/20/23 23:24 02/20/23 02/21/23 02/21/23 22:59 06:59 14:59 Intake Total 120 / 640 Output Total 100 / 3500 Balance 20 / -2860 Weight last 48 hrs Weight 93.1 kg Physical Exam Narrative: AWAKE ,A LERT NO DISTRESS S1S2 RRR PER REPORT LUNGS CLEAR HUNG per report NO EDEMA Data 02/20/23 04:56 02/20/23 04:56 A&P Assessment and plan (1) ESRD (end stage renal disease): 1. ESRD 2. Hypertension 3.dm 4. Intractable nausea/Vomiting 5. Cad Plan : HD tomorrow if not discharged , UF as tolerated , Hb @ goal. Attestations Medical Necessity Statement*: per mediicne team Coding Level of Care Code Acute Code for Chg Fwd Diagnoses ESRD (end stage renal disease) N18.6
--- NOTE | 2023-02-21 08:46 | PC.SOCIAL ---
IMM Update IMM not updated with pt for pt is in Observation status.
[2023-02-21] MEDS: terazosin 5 mg Capsule 10 MG PO ×2 (09:27→17:41)
[2023-02-21] MEDS: isosorbide mononitrate ER 60 mg Tablet PO ×2 (09:28→17:41)
[2023-02-21] MEDS: escitalopram 10 mg Tablet 20 MG PO (09:28)
[2023-02-21] MEDS: sevelamer 800 mg Tablet 1600 MG PO ×2 (09:28→17:41)
[2023-02-21] MEDS: levothyroxine 25 mcg Tablet PO (09:28)
[2023-02-21] MEDS: ranolazine (12HR) 500 mg Tablet PO ×2 (09:29→17:41)
[2023-02-21] MEDS: meclizine 25 mg tablet PO ×3 (09:29→20:59)
[2023-02-21] MEDS: FUROsemide 40 mg Tablet 80 MG PO ×2 (09:29→17:41)
[2023-02-21] MEDS: carvedilol 12.5 mg Tablet PO (09:29)
[2023-02-21] MEDS: aspirin 81 mg EC Tablet PO (09:29)
[2023-02-21] MEDS: pantoprazole DR 40 mg Tablet PO (09:29)
[2023-02-21] MEDS: hyDRALAzine 10 mg Tablet PO ×2 (10:20→17:41)
--- NOTE | 2023-02-21 10:53 | PM.PN ---
Subjective Subjective: Patient could not attend physical therapy session yesterday He is stating that he is feeling worse today, still has nystagmus with change of head position Endorsing nausea however vomiting has improved I requested PT for vestibular rehab Vitals/I&O/Wt Last Vital Signs Temp 97.9 F 02/21/23 08:05 Pulse 75 02/21/23 08:42 Resp 16 02/21/23 08:05 BP 105/64 02/21/23 08:05 Pulse Ox 92 02/21/23 08:42 O2 Del Method Nasal Cannula 02/21/23 08:42 O2 Flow Rate 2 02/21/23 08:42 02/20/23 02/21/23 02/21/23 22:59 06:59 14:59 Intake Total 120 / 640 480 / 480 Output Total 100 / 3500 Balance 20 / -2860 480 / 480 Weight last 48 hrs Weight 93.1 kg Physical Exam Narrative: Patient still showing nystagmus with change of head position Vertigo Nonfocal neuro exam GCS 15 Awake and alert NIH 0 Mild signs of fluid overload Currently on 2 L nasal cannula Pleasant and cooperative Hemodynamically stable Data 02/20/23 04:56 02/20/23 04:56 A&P Assessment and plan (1) BPPV (benign paroxysmal positional vertigo): (2) Intractable vomiting: (3) Carotid stenosis, bilateral: (4) Depression: Qualifiers: Depression Type: major depressive disorder Major depression recurrence: recurrent Active/Remission status: currently active Major depression episode severity: moderate Qualified Code(s): F33.1 - Major depressive disorder, recurrent, moderate (5) ESRD (end stage renal disease): (6) T2DM (type 2 diabetes mellitus): Qualifiers: Diabetes mellitus retirement insulin use: with terminal carman use Diabetes mellitus complication status: with kidney complications Diabetes mellitus complication detail: with chronic kidney disease Chronic kidney disease stage: on chronic dialysis Qualified Code(s): E11.22 - Type 2 diabetes mellitus with diabetic chronic kidney disease; N18.6 - End stage renal disease; 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; Z99.2 - Dependence on renal dialysis Plan BPPV Requested vestibular rehab MRI head CTA neck showed 68% stenosis on the left ICA No active signs of stroke Nystagmus and nausea has not improved Not ready to be discharged today Patient lives alone he is unsafe to be discharged because of his active nausea and dizziness Dialysis tomorrow as per his schedule Nocturnal hypoxemia Attestations Medical Necessity Statement*: Discharge over the weekend Diagnoses BPPV (benign paroxysmal positional vertigo) H81.10 Intractable vomiting R11.10 Carotid stenosis, bilateral I65.23 Depression F33.1 Depression Type: major depressive disorder Major depression recurrence: recurrent Active/Remission status: currently active Major depression episode severity: moderate ESRD (end stage renal disease) N18.6 T2DM (type 2 diabetes mellitus) E11.22; N18.6; Z79.4; Z99.2 Diabetes mellitus retirement insulin use: with terminal carman use Diabetes mellitus complication status: with kidney complications Diabetes mellitus complication detail: with chronic kidney disease Chronic kidney disease stage: on chronic dialysis
--- NOTE | 2023-02-21 10:54 | MR_ITS ---
WS: [id number] MRI BRAIN WITHOUT CONTRAST HISTORY: Central nystagmus COMPARISON: 06/25/2012 TECHNIQUE: Diffusion imaging, multiplanar T1, T2 and FLAIR imaging obtained. No evidence for acute infarct or hemorrhage. Denise-white matter differentiation is normal. Extensive T2 and FLAIR signal hyperintensities throughout the white matter. Moderate progression sinc e 2013 of the white matter lesions. These are predominantly in the periventricular and supraventricul ar locations beginning at the vertex. Symmetric in appearance and there are some white matter lesions that do abut the corpus callosum. Mild volume loss and atrophy with mild prominence of the extra-axial spaces. No hydrocephalus. No inferior displacement of cerebellar tonsils. The sella turcica and pituitary gland are unremarkabl e. Dural venous sinuses and point lay [place] of [place] demonstrate no abnormality on this unenhanced studies. Paranasal sinuses: Mild mucoperiosteal thickening and air-fluid levels in the sinuses. Greatest invol ving the sphenoid and maxillary sinuses. Lobulated soft tissue in the LEFT sphenoid sinus is reidenti fied measuring 15 x 10 mm. May be a small mucous retention cyst or polyp Mastoid air cells: RIGHT mastoid air cell fluid. Calvarium and scalp: Intact. IMPRESSION: 1. Advanced T2 and FLAIR white matter lesions throughout the brain. Progressed since 2012. May all b e due to progression of small vessel ischemic disease. Additional etiologies to consider are hyperten laila and demyelination. 2. Mild volume loss and atrophy. 3. Mild mucoperiosteal thickening throughout the sinus cavities. 4. No acute infarct.
[2023-02-21 11:37] LABS: Glucose Point of Care 169 mg/dL (70-110)
[2023-02-21 17:18] LABS: Glucose Point of Care 178 mg/dL (70-110)
[2023-02-21] MEDS: insulin lispro 100 unit/1 mL SUBCUT (17:41)
[2023-02-21] MEDS: ondansetron 2 mg/ML SDV 2 mL 4 MG IVP (17:41)
[2023-02-21 20:47] LABS: Glucose Point of Care 107 mg/dL (70-110)
[2023-02-21] MEDS: losartan 50 mg Tablet PO (20:59)
[2023-02-21] MEDS: amlodipine 10 mg Tablet PO (20:59)
[2023-02-21] MEDS: clopidogrel 75 mg Tablet PO (21:00)
[2023-02-21] MEDS: allopurinol 300 mg Tablet PO (21:00)
[2023-02-21] MEDS: insulin glargine 100 units/1 mL 20 UNIT SUBCUT (21:01)
[2023-02-22] VITALS (9 sets, daily range): BP systolic 96–134; BP diastolic 48–83; PULSE 60–75; RESP 16–18; TEMP 36.5–36.8; O2SAT 90–93
[2023-02-22 05:00] LABS: Basophils # 0.1 10^3/uL (0.0-0.1); Basophils % 0.5 %; Eosinophils # 0.3 10^3/uL (0.0-0.8); Eosinophils % 2.9 %; Hematocrit 32.9 % (37-53); Lymphocytes # 1.5 10^3/uL (0.8-4.8); Lymphocytes % 14.1 %; Mean Corpuscular HGB Conc 31.3 g/dL (30-55); Mean Corpuscular Hemoglobin 27.9 pg (27-33); Mean Corpuscular Volume 89.2 fl (82-101); Mean Platelet Volume 9.7 fL (7.4-10.4); Monocytes % 9.7 %; Neutrophils # 7.49 10^3/uL (1.8-7.7); Neutrophils % 72.3 %; Nucleated Red Blood Cells % 0 %; Platelet Count 218 10^3/cmm (157-399); Red Blood Count 3.69 10^6/uL (3.85-5.65); Red Cell Distribution Width 15.5 % (12.1-15.1); White Blood Count 10.35 10^3/uL (3.29-11.43)
[2023-02-22 05:23] LABS: Blood Urea Nitrogen 40 mg/dL (8-23); Calcium 8.6 mg/dL (8.5-10.5); Carbon Dioxide 29 mmol/L (22-29); Chloride 97 mmol/L (98-107); Glucose 83 mg/dL (65-115); Osmolality Calculated 297 mOsm/kg (285-295); Sodium 139 mmol/L (136-145)
[2023-02-22 05:24] LABS: Anion Gap 17.3 (5-19); Potassium 4.3 mmol/L (3.5-5.1)
[2023-02-22] MEDS: aspirin 81 mg EC Tablet PO (05:45)
[2023-02-22] MEDS: levothyroxine 25 mcg Tablet PO (05:45)
[2023-02-22] MEDS: carvedilol 12.5 mg Tablet PO (05:45)
[2023-02-22] MEDS: escitalopram 10 mg Tablet 20 MG PO (05:46)
[2023-02-22 06:46] LABS: Glucose Point of Care 91 mg/dL (70-110)
--- NOTE | 2023-02-22 08:37 | PM.PN ---
Subjective Subjective: getting HD Medications: Reviewed: Yes Vitals/I&O/Wt Last Vital Signs Temp 97.9 F 02/22/23 08:31 Pulse 68 02/22/23 08:31 Resp 16 02/22/23 08:31 BP 116/64 02/22/23 08:31 Pulse Ox 90 02/22/23 07:44 O2 Del Method Nasal Cannula 02/22/23 07:44 O2 Flow Rate 2 02/21/23 08:42 02/21/23 02/22/23 02/22/23 22:59 06:59 14:59 Intake Total 480 / 1440 Output Total 0 / 0 250 / 250 Balance 480 / 1440 -250 / 1190 Weight last 48 hrs Weight 93.1 kg Physical Exam Narrative: AWAKE ,A LERT NO DISTRESS S1S2 RRR PER REPORT LUNGS CLEAR HUNG per report NO EDEMA Data 02/22/23 04:23 02/22/23 04:23 A&P Assessment and plan (1) ESRD (end stage renal disease): 1. ESRD 2. Hypertension 3.dm 4. Intractable nausea/Vomiting and dizziness 5. Cad Plan : HD today , UF as tolerated , Hb @ goal. Attestations Medical Necessity Statement*: per medicine team Coding Level of Care Code Acute Code for Chg Fwd Diagnoses ESRD (end stage renal disease) N18.6
[2023-02-22] MEDS: FUROsemide 40 mg Tablet 80 MG PO ×2 (08:44→17:22)
[2023-02-22] MEDS: meclizine 25 mg tablet PO ×3 (08:44→21:28)
[2023-02-22] MEDS: terazosin 5 mg Capsule 10 MG PO ×2 (08:44→17:22)
[2023-02-22] MEDS: ranolazine (12HR) 500 mg Tablet PO ×2 (08:45→17:22)
[2023-02-22] MEDS: pantoprazole DR 40 mg Tablet PO (08:45)
[2023-02-22] MEDS: isosorbide mononitrate ER 60 mg Tablet PO ×2 (08:45→17:22)
[2023-02-22 11:33] LABS: Glucose Point of Care 96 mg/dL (70-110)
[2023-02-22] MEDS: heparin, porcine 1,000 unit/mL INJ 10 mL 10000 UNIT INTRACATH (11:45)
[2023-02-22] MEDS: sevelamer 800 mg Tablet 1600 MG PO ×2 (11:55→17:22)
--- NOTE | 2023-02-22 12:03 | P.PN_ITS ---
Subjective Subjective: Patient is stating that he still feeling dizzy however nausea and nystagmus has improved Patient looked towards me while he was getting dialysis and stated that changing head position made him uncomfortable Vitals/I&O/Wt Last Vital Signs Temp 97.9 F 02/22/23 08:31 Pulse 68 02/22/23 08:31 Resp 16 02/22/23 08:31 BP 116/64 02/22/23 08:31 Pulse Ox 90 02/22/23 07:44 O2 Del Method Nasal Cannula 02/22/23 07:44 O2 Flow Rate 2 02/21/23 08:42 02/21/23 02/22/23 02/22/23 22:59 06:59 14:59 Intake Total 480 / 1440 240 / 240 Output Total 0 / 0 250 / 250 Balance 480 / 1440 -250 / 1190 240 / 240 Weight last 48 hrs Weight 93.1 kg Physical Exam Narrative: Laying supine Getting dialyzed Nystagmus improved uncomfortable with change of head position S1, S2 Abdomen soft Nonfocal neuro exam GCS 15 Data 02/22/23 04:23 02/22/23 04:23 A&P Assessment and plan (1) BPPV (benign paroxysmal positional vertigo): (2) Intractable vomiting: (3) Depression: Qualifiers: Depression Type: major depressive disorder Major depression recurrence: recurrent Active/Remission status: currently active Major depression episode severity: moderate Qualified Code(s): F33.1 - Major depressive disorder, recurrent, moderate (4) ESRD (end stage renal disease): (5) T2DM (type 2 diabetes mellitus): Qualifiers: Diabetes mellitus terminal makeup operator insulin use: with terminal makeup operator use Diabetes mellitus complication status: with kidney complications Diabetes mellitus complication detail: with chronic kidney disease Chronic kidney disease stage: on chronic dialysis Qualified Code(s): E11.22 - Type 2 diabetes mellitus with diabetic chronic kidney disease; N18.6 - End stage renal disease; 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; Z99.2 - Dependence on renal dialysis Plan Plan to discharge by tomorrow if feeling better Patient lives alone and his dizziness has not improved significantly Which makes it unsafe for him to return home at this point Continue meclizine Appreciate PT recommendations We will need outpatient vestibular rehab Does not need [facility] placement MRI head showed chronic changes No signs of stroke Attestations Medical Necessity Statement*: Discharge tomorrow Diagnoses BPPV (benign paroxysmal positional vertigo) H81.10 Intractable vomiting R11.10 Depression F33.1 Depression Type: major depressive disorder Major depression recurrence: recurrent Active/Remission status: currently active Major depression episode severity: moderate ESRD (end stage renal disease) N18.6 T2DM (type 2 diabetes mellitus) E11.22; N18.6; Z79.4; Z99.2 Diabetes mellitus care home insulin use: with terminal makeup operator use Diabetes mellitus complication status: with kidney complications Diabetes mellitus complication detail: with chronic kidney disease Chronic kidney disease stage: on chronic dialysis
[2023-02-22] MEDS: lactulose oral liq 20 gm/30 mL UDC PO (14:10)
[2023-02-22 15:17] LABS: Glucose Point of Care 178 mg/dL (70-110)
[2023-02-22] MEDS: metoclopramide 5 mg/mL SDV 2 mL IVP (15:31)
[2023-02-22 17:13] LABS: Glucose Point of Care 164 mg/dL (70-110)
[2023-02-22] MEDS: hyDRALAzine 10 mg Tablet PO (17:22)
[2023-02-22] MEDS: insulin lispro 100 unit/1 mL SUBCUT ×2 (17:22→21:27)
[2023-02-22] MEDS: ondansetron 2 mg/ML SDV 2 mL 4 MG IVP (17:31)
[2023-02-22 20:55] LABS: Glucose Point of Care 149 mg/dL (70-110)
[2023-02-22] MEDS: insulin glargine 100 units/1 mL 20 UNIT SUBCUT (21:27)
[2023-02-22] MEDS: losartan 50 mg Tablet PO (21:28)
[2023-02-22] MEDS: amlodipine 10 mg Tablet PO (21:28)
[2023-02-22] MEDS: allopurinol 300 mg Tablet PO (21:28)
[2023-02-22] MEDS: clopidogrel 75 mg Tablet PO (21:28)
[2023-02-23] VITALS (9 sets, daily range): BP systolic 96–120; BP diastolic 56–69; PULSE 64–75; RESP 15–18; TEMP 36.3–36.9; O2SAT 90–98
[2023-02-23] MEDS: metoclopramide 5 mg/mL SDV 2 mL IVP (00:35)
[2023-02-23 06:33] LABS: Glucose Point of Care 119 mg/dL (70-110)
[2023-02-23] MEDS: pantoprazole DR 40 mg Tablet PO (07:31)
[2023-02-23] MEDS: escitalopram 10 mg Tablet 20 MG PO (07:31)
[2023-02-23] MEDS: ranolazine (12HR) 500 mg Tablet PO ×2 (07:31→17:46)
[2023-02-23] MEDS: levothyroxine 25 mcg Tablet PO (07:31)
[2023-02-23] MEDS: terazosin 5 mg Capsule 10 MG PO ×2 (07:31→17:54)
[2023-02-23] MEDS: isosorbide mononitrate ER 60 mg Tablet PO ×2 (07:31→17:46)
[2023-02-23] MEDS: meclizine 25 mg tablet PO ×3 (07:32→21:59)
[2023-02-23] MEDS: sevelamer 800 mg Tablet 1600 MG PO ×2 (07:32→17:46)
[2023-02-23] MEDS: FUROsemide 40 mg Tablet 80 MG PO ×2 (07:32→17:47)
[2023-02-23] MEDS: hyDRALAzine 10 mg Tablet PO ×2 (07:33→17:47)
[2023-02-23] MEDS: aspirin 81 mg EC Tablet PO (07:33)
[2023-02-23] MEDS: carvedilol 12.5 mg Tablet PO (07:33)
[2023-02-23] MEDS: acetaminophen 325 mg Tablet 650 MG PO (07:40)
--- NOTE | 2023-02-23 09:21 | PM.PN ---
Subjective Subjective: no new complaints Medications: Reviewed: Yes Vitals/I&O/Wt Last Vital Signs Temp 97.4 F L 02/23/23 07:18 Pulse 72 02/23/23 07:33 Resp 16 02/23/23 07:18 BP 117/67 02/23/23 07:18 Pulse Ox 93 02/23/23 07:33 O2 Del Method Nasal Cannula 02/23/23 07:33 O2 Flow Rate 2 02/23/23 07:33 02/22/23 02/23/23 02/23/23 23:59 06:59 14:59 Intake Total 120 / 120 Output Total Balance 120 / 120 Weight last 48 hrs Weight 90.3 kg Physical Exam Narrative: AWAKE ,A LERT NO DISTRESS S1S2 RRR PER REPORT LUNGS CLEAR HUNG per report NO EDEMA Data 02/22/23 04:23 02/22/23 04:23 A&P Assessment and plan (1) ESRD (end stage renal disease): 1. ESRD 2. Hypertension 3.dm 4. Intractable nausea/Vomiting and dizziness , MRI done 5. Cad Plan : s/p HD yesterday , , UF as tolerated , Hb @ goal. Attestations Medical Necessity Statement*: per medicine team Coding Level of Care Code Acute Code for Chg Fwd Diagnoses ESRD (end stage renal disease) N18.6
--- NOTE | 2023-02-23 10:02 | PM.PN ---
Subjective Subjective: no new compliants Medications: Reviewed: Yes Vitals/I&O/Wt Last Vital Signs Temp 97.4 F L 02/23/23 07:18 Pulse 72 02/23/23 07:33 Resp 16 02/23/23 07:18 BP 117/67 02/23/23 07:18 Pulse Ox 93 02/23/23 07:33 O2 Del Method Nasal Cannula 02/23/23 07:33 O2 Flow Rate 2 02/23/23 07:33 02/22/23 02/23/23 02/23/23 23:59 06:59 14:59 Intake Total 120 / 120 Output Total Balance 120 / 120 Weight last 48 hrs Weight 90.3 kg Physical Exam Narrative: AWAKE ,A LERT NO DISTRESS S1S2 RRR PER REPORT LUNGS CLEAR HUNG per report NO EDEMA Data 02/22/23 04:23 02/22/23 04:23 A&P Assessment and plan (1) ESRD (end stage renal disease): 1. ESRD 2. Hypertension 3.DM 4. Intractable nausea/Vomiting and dizziness , MRI done 5. Cad Plan : s/p HD yesterday , Next HD tomorrow , UF as tolerated , Hb @ goal. Attestations Medical Necessity Statement*: per medicine team Coding Level of Care Code Acute Code for Chg Fwd Diagnoses ESRD (end stage renal disease) N18.6
--- NOTE | 2023-02-23 10:20 | P.PN_ITS ---
Subjective Subjective: Patient is requesting, vestibular rehab/care home placement now Still taking he is afraid to go home with his dizziness Had a bowel yesterday for lactulose Patient is claiming that he had a rough night because he was nauseous and he took lactulose Vitals/I&O/Wt Last Vital Signs Temp 97.4 F L 02/23/23 07:18 Pulse 72 02/23/23 07:33 Resp 16 02/23/23 07:18 BP 117/67 02/23/23 07:18 Pulse Ox 93 02/23/23 07:33 O2 Del Method Nasal Cannula 02/23/23 07:33 O2 Flow Rate 2 02/23/23 07:33 02/22/23 02/23/23 02/23/23 23:59 06:59 14:59 Intake Total 120 / 120 Output Total Balance 120 / 120 Weight last 48 hrs Weight 90.3 kg Physical Exam Narrative: Pleasant cooperative Currently over GCS 15 S1, S2 Nonfocal neuro exam Left arm fistula Abdomen soft Data 02/22/23 04:23 02/22/23 04:23 A&P Assessment and plan (1) BPPV (benign paroxysmal positional vertigo): (2) Intractable vomiting: (3) Depression: Qualifiers: Depression Type: major depressive disorder Major depression recurrence: recurrent Active/Remission status: currently active Major depression episode severity: moderate Qualified Code(s): F33.1 - Major depressive disorder, recurrent, moderate (4) ESRD (end stage renal disease): (5) T2DM (type 2 diabetes mellitus): Qualifiers: Diabetes mellitus care home insulin use: with adjunct faculty for medical terminology use Diabetes mellitus complication status: with kidney complications Diabetes mellitus complication detail: with chronic kidney disease Chronic kidney disease stage: on chronic dialysis Qualified Code(s): E11.22 - Type 2 diabetes mellitus with diabetic chronic kidney disease; N18.6 - End stage renal disease; Z79.4 - terminal superintendent (current) use of insulin; Z99.2 - Dependence on renal dialysis Plan 72 male who presented to hospital for intractable nausea vomiting, there was initially concern for viral gastroenteritis however his symptoms are related to head turning with nystagmus Requested vestibular rehab Patient lives alone he is scared to go home like this and requesting care home placement Head MRI did not show any acute stroke, has chronic microvascular changes I will have him follow-up with neurology outpatient, no concern for press syndrome BPPV Mild improvement with Laura's maneuvers Continue meclizine Vomiting improved Constipation: improved with lactulose Coronary disease continue dual antiplatelet therapy Full code Patient lives alone scared to go home because of his dizziness We will touch with case management tomorrow if he will qualify for vestibular rehab or if you prefer to stay with his [id number] for a while and attend outpatient vestibular rehab therapy sessions Attestations Medical Necessity Statement*: Continue medical management Diagnoses BPPV (benign paroxysmal positional vertigo) H81.10 Intractable vomiting R11.10 Depression F33.1 Depression Type: major depressive disorder Major depression recurrence: recurrent Active/Remission status: currently active Major depression episode severity: moderate ESRD (end stage renal disease) N18.6 T2DM (type 2 diabetes mellitus) E11.22; N18.6; Z79.4; Z99.2 Diabetes mellitus adjunct faculty for medical terminology insulin use: with care home use Diabetes mellitus complication status: with kidney complications Diabetes mellitus complication detail: with chronic kidney disease Chronic kidney disease stage: on chronic dialysis
[2023-02-23 11:54] LABS: Glucose Point of Care 144 mg/dL (70-110)
[2023-02-23] MEDS: insulin lispro 100 unit/1 mL SUBCUT ×2 (12:19→17:54)
[2023-02-23] MEDS: ondansetron 2 mg/ML SDV 2 mL 4 MG IVP (12:20)
[2023-02-23 17:14] LABS: Glucose Point of Care 143 mg/dL (70-110)
[2023-02-23] MEDS: clopidogrel 75 mg Tablet PO (21:59)
[2023-02-23] MEDS: allopurinol 300 mg Tablet PO (21:59)
[2023-02-23] MEDS: amlodipine 10 mg Tablet PO (21:59)
[2023-02-23] MEDS: losartan 50 mg Tablet PO (21:59)
[2023-02-23] MEDS: insulin glargine 100 units/1 mL 20 UNIT SUBCUT (21:59)
[2023-02-23 22:00] LABS: Glucose Point of Care 117 mg/dL (70-110)
[2023-02-24] VITALS (8 sets, daily range): BP systolic 101–123; BP diastolic 59–71; PULSE 60–79; RESP 15–17; TEMP 36.6–36.8; O2SAT 90–94
[2023-02-24 03:53] LABS: Anion Gap 17.7 (5-19); Blood Urea Nitrogen 43 mg/dL (8-23); Calcium 8.8 mg/dL (8.5-10.5); Carbon Dioxide 27 mmol/L (22-29); Chloride 95 mmol/L (98-107); Glucose 99 mg/dL (65-115); Osmolality Calculated 293 mOsm/kg (285-295); Potassium 3.7 mmol/L (3.5-5.1); Sodium 136 mmol/L (136-145)
[2023-02-24] MEDS: escitalopram 10 mg Tablet 20 MG PO (06:37)
[2023-02-24] MEDS: carvedilol 12.5 mg Tablet PO (06:37)
[2023-02-24] MEDS: levothyroxine 25 mcg Tablet PO (06:38)
[2023-02-24] MEDS: aspirin 81 mg EC Tablet PO (06:38)
[2023-02-24 07:13] LABS: Glucose Point of Care 77 mg/dL (70-110)
[2023-02-24] MEDS: hyDRALAzine 10 mg Tablet PO ×2 (08:59→18:33)
[2023-02-24] MEDS: sevelamer 800 mg Tablet 1600 MG PO ×2 (08:59→18:33)
[2023-02-24] MEDS: terazosin 5 mg Capsule 10 MG PO ×2 (08:59→18:33)
[2023-02-24] MEDS: ranolazine (12HR) 500 mg Tablet PO ×2 (08:59→18:33)
[2023-02-24] MEDS: FUROsemide 40 mg Tablet 80 MG PO ×2 (09:00→18:32)
[2023-02-24] MEDS: meclizine 25 mg tablet PO ×3 (09:00→21:42)
[2023-02-24] MEDS: isosorbide mononitrate ER 60 mg Tablet PO ×2 (09:00→18:32)
[2023-02-24] MEDS: pantoprazole DR 40 mg Tablet PO (09:00)
[2023-02-24] MEDS: epoetin alfa 1000 Unit/0.05 mL (ESRD) 20000 UNIT SUBCUT (10:48)
--- NOTE | 2023-02-24 11:16 | PM.PN ---
Subjective Subjective: feels better Medications: Reviewed: Yes Vitals/I&O/Wt Last Vital Signs Temp 98.0 F 02/24/23 08:00 Pulse 63 02/24/23 08:00 Resp 16 02/24/23 08:00 BP 101/60 02/24/23 08:00 Pulse Ox 92 02/24/23 08:00 O2 Del Method Nasal Cannula 02/24/23 08:00 O2 Flow Rate 3 02/24/23 08:00 02/23/23 02/24/23 02/24/23 22:59 06:59 14:59 Intake Total 120 / 480 120 / 120 Balance 120 / 480 120 / 120 Weight last 48 hrs Weight 90.3 kg Physical Exam Narrative: AWAKE ,A LERT NO DISTRESS S1S2 RRR PER REPORT LUNGS CLEAR HUNG per report NO EDEMA Data 02/22/23 04:23 02/24/23 02:58 A&P Assessment and plan (1) ESRD (end stage renal disease): 1. ESRD 2. Hypertension 3.DM 4. Intractable nausea/Vomiting and dizziness , MRI done 5. Cad Plan : s/p HD friday next HD on friday , UF as tolerated , Hb @ goal. Attestations Medical Necessity Statement*: Continue medical management Coding Level of Care Code Acute Code for Chg Fwd Diagnoses ESRD (end stage renal disease) N18.6
--- NOTE | 2023-02-24 12:17 | PM.PN ---
Subjective Subjective: Patient is requesting assisted placement at this time. He states he lives alone at home and has nowhere to go. He is afraid to go home alone due to his dizziness. Initially however when I walked into the room I asked the patient to be sitting up out of bed and he stated yes and he was doing fine. When I discussed discharge planning he stated that he was still dizzy and not comfortable to go home. He states he cannot sleep in the system either. Vitals/I&O/Wt Last Vital Signs Temp 98.0 F 02/24/23 11:36 Pulse 79 02/24/23 11:36 Resp 15 02/24/23 11:36 BP 123/71 02/24/23 11:36 Pulse Ox 91 02/24/23 11:36 O2 Del Method Nasal Cannula 02/24/23 11:36 O2 Flow Rate 3 02/24/23 08:00 02/23/23 02/24/23 02/24/23 22:59 06:59 14:59 Intake Total 120 / 480 120 / 120 Balance 120 / 480 120 / 120 Physical Exam Narrative: Pleasant cooperative S1-S2 normal Nonfocal neuro exam Left arm fistula present with good thrill Abdomen soft nontender Lungs clear to auscultation bilaterally On nasal cannula oxygen at this time. 2 L Data 02/22/23 04:23 02/24/23 02:58 A&P Assessment and plan (1) BPPV (benign paroxysmal positional vertigo): (2) Intractable vomiting: (3) Depression: Qualifiers: Depression Type: major depressive disorder Major depression recurrence: recurrent Active/Remission status: currently active Major depression episode severity: moderate Qualified Code(s): F33.1 - Major depressive disorder, recurrent, moderate (4) ESRD (end stage renal disease): (5) T2DM (type 2 diabetes mellitus): Qualifiers: Diabetes mellitus talent acquisition operations manager insulin use: with jail use Diabetes mellitus complication status: with kidney complications Diabetes mellitus complication detail: with chronic kidney disease Chronic kidney disease stage: on chronic dialysis Qualified Code(s): E11.22 - Type 2 diabetes mellitus with diabetic chronic kidney disease; N18.6 - End stage renal disease; Z79.4 - sales representative jewelry (current) use of insulin; Z99.2 - Dependence on renal dialysis Plan 72 male who presented to hospital for intractable nausea vomiting, there was initially concern for viral gastroenteritis however his symptoms are related to head turning with nystagmus Requested vestibular rehab Patient lives alone he is scared to go home like this and requesting assisted placement Head MRI did not show any acute stroke, has chronic microvascular changes I will have him follow-up with neurology outpatient, no concern for press syndrome BPPV Mild improvement with Laura's maneuvers Continue meclizine Vomiting improved Constipation: improved with lactulose Coronary disease continue dual antiplatelet therapy Full code Patient lives alone scared to go home because of his dizziness Patient would like assisted placement at this time. workers compensation coordinator updated. We will work on placement. Continue to work with physical therapy. He has not been evaluated today and will be working with physical therapy after his dialysis session. I will discuss with physical therapy as well. Attestations Medical Necessity Statement*: Awaiting placement. Diagnoses BPPV (benign paroxysmal positional vertigo) H81.10 Intractable vomiting R11.10 Depression F33.1 Depression Type: major depressive disorder Major depression recurrence: recurrent Active/Remission status: currently active Major depression episode severity: moderate ESRD (end stage renal disease) N18.6 T2DM (type 2 diabetes mellitus) E11.22; N18.6; Z79.4; Z99.2 Diabetes mellitus jail insulin use: with jail use Diabetes mellitus complication status: with kidney complications Diabetes mellitus complication detail: with chronic kidney disease Chronic kidney disease stage: on chronic dialysis
--- NOTE | 2023-02-24 13:58 | PC.SOCIAL ---
IMM Update pg 2 of IMM updated and reviewed w/ patient. Copy signed and witnessed. Copy provided and Copy dated, initialed and placed in chart.
--- NOTE | 2023-02-24 15:05 | PC.PT ---
Pt was seen by PT for Laura maneuver on the right and the left and he has no nystagmus today only slight dizziness and slight nausea. Pt reports he was 40% better after the maneuver.
[2023-02-24] MEDS: clopidogrel 75 mg Tablet PO (21:41)
[2023-02-24] MEDS: losartan 50 mg Tablet PO (21:41)
[2023-02-24] MEDS: allopurinol 300 mg Tablet PO (21:42)
[2023-02-24] MEDS: amlodipine 10 mg Tablet PO (21:42)
[2023-02-24 22:01] LABS: Glucose Point of Care 197 mg/dL (70-110)
[2023-02-24] MEDS: insulin glargine 100 units/1 mL 20 UNIT SUBCUT (22:10)
[2023-02-24] MEDS: insulin lispro 100 unit/1 mL SUBCUT (22:12)
[2023-02-25] VITALS (7 sets, daily range): BP systolic 104–130; BP diastolic 58–67; PULSE 60–76; RESP 15–18; TEMP 36.6–36.7; O2SAT 90–93
[2023-02-25 03:58] LABS: Glucose Point of Care 127 mg/dL (70-110)
[2023-02-25] MEDS: aspirin 81 mg EC Tablet PO (05:11)
[2023-02-25] MEDS: carvedilol 12.5 mg Tablet PO (05:11)
[2023-02-25] MEDS: levothyroxine 25 mcg Tablet PO (05:11)
[2023-02-25] MEDS: escitalopram 10 mg Tablet 20 MG PO (05:11)
[2023-02-25 07:43] LABS: SARS Covid-2 Antigen negative (Negative)
[2023-02-25] MEDS: meclizine 25 mg tablet PO (09:42)
[2023-02-25] MEDS: terazosin 5 mg Capsule 10 MG PO (09:42)
[2023-02-25] MEDS: sevelamer 800 mg Tablet 1600 MG PO (09:42)
[2023-02-25] MEDS: ranolazine (12HR) 500 mg Tablet PO (09:43)
[2023-02-25] MEDS: FUROsemide 40 mg Tablet 80 MG PO (09:43)
[2023-02-25] MEDS: hyDRALAzine 10 mg Tablet PO (09:43)
[2023-02-25] MEDS: pantoprazole DR 40 mg Tablet PO (09:43)
[2023-02-25] MEDS: isosorbide mononitrate ER 60 mg Tablet PO (09:43)
--- NOTE | 2023-02-25 10:00 | PM.DCS ---
Discharge Providers Date of Admission: 02/21/23 10:57 Date of Discharge: February 25, 2023 Attending Provider at Admission: Homa Adame MD Attending Provider at Discharge: Bre Perdue MD Primary Care Provider: Carlee Carreon DO Diagnoses at Discharge Discharge Diagnosis (1) BPPV (benign paroxysmal positional vertigo): Status: Acute (2) Intractable vomiting: Status: Acute (3) Depression: Status: Acute Qualifiers: Active/Remission status: currently active Depression Type: major depressive disorder Major depression episode severity: moderate Major depression recurrence: recurrent Qualified Code(s): F33.1 - Major depressive disorder, recurrent, moderate (4) ESRD (end stage renal disease): Status: Acute (5) T2DM (type 2 diabetes mellitus): Status: Acute Qualifiers: Chronic kidney disease stage: on chronic dialysis Diabetes mellitus complication detail: with chronic kidney disease Diabetes mellitus complication status: with kidney complications Diabetes mellitus joint terminal attack controller insulin use: with custodial use Qualified Code(s): E11.22 - Type 2 diabetes mellitus with diabetic chronic kidney disease; N18.6 - End stage renal disease; Z79.4 - snf (current) use of insulin; Z99.2 - Dependence on renal dialysis Reason for Visit Reason for Visit: N/V Hospital Course Hospital Course 72-year-old male who was admitted for management valuation of nausea vomiting, he was concern for viral gastroenteritis however on my examination patient was showing signs of nystagmus with head position change, for BPPV physical therapy was asked to do at placement over patient did show nystagmus with rapid eye movement towards right with head position change, he was dialyzed in the hospital on 02/25 as per his schedule, he did respond to meclizine, vomiting improved but he still feeling dizziness, he will need vestibular rehab. He does not have any focal deficits, no hearing deficit. Patient is feeling better. He will be going to [facility] and will continue with vestibular rehab there with physical therapy. Physical Exam Narrative: Pleasant cooperative S1-S2 normal Nonfocal neuro exam Left arm fistula present with good thrill Abdomen soft nontender Lungs clear to auscultation bilaterally On nasal cannula oxygen at this time. 2 L Discharge Data Studies Completed and Pending Completed Studies During Hospitalization Category Date Time Status CT abdomen pelvis wo con [id number] Stat Cat Scan 02/18/23 18:57 Completed XR chest 1V portable [id number] Stat Exams 02/18/23 18:14 Completed MR head wo con* [id number] Routine MRI 02/21/23 10:54 Completed Radiology Impressions Chest X-Ray 02/18/23 18:14 IMPRESSION: 1. No focal consolidation. 2. Lucency projecting through the dome of the liver may represent loops colon interspersed between the liver and anterior abdominal wall. A lateral chest radiograph may help to confirm this finding. Abdomen/Pelvis CT 02/18/23 18:57 IMPRESSION: 1. No bowel obstruction or inflammatory process associated with the bowel. 2. No free air or significant free fluid in the abdomen or pelvis. 3. The appendix is not visualized but there are no secondary signs of acute appendicitis. COMMENTS: Consistent with the [employer]'s Incidental Findings Committee white paper (J Am Sosa Radiol 2018): Any incidental renal lesion less than 1 cm or classified as too small to characterize, or any incidental cystic renal lesion characterized as simple-appearing, is likely benign. No follow-up imaging is recommended for these lesions per consensus recommendations based on imaging criteria. Laboratory Results WBC 10.35 10^3/uL (3.29-11.43) 02/22/23 04:23 RBC 3.69 10^6/uL (3.85-5.65) L 02/22/23 04:23 Hgb 10.30 g/dL (11.27-16.99) L 02/22/23 04:23 Hct 32.9 % (37-53) L 02/22/23 04:23 MCV 89.2 fl (82-101) 02/22/23 04: MCH 27.9 pg (27-33) 02/22/23 04: MCHC 31.3 g/dL (30-55) 02/22/23 04: RDW 15.5 % (12.1-15.1) H 02/22/23 04:23 Plt Count 218 10^3/cmm (157-399) 02/22/23 04: MPV 9.7 fL (7.4-10.4) 02/22/23 04:23 Neut % (Auto) 72.3 % 02/22/23 04: Lymph % (Auto) 14.1 % 02/22/23 04: [place] % (Auto) 9.7 % 02/22/23 04:23 Eos % (Auto) 2.9 % 02/22/23 04:23 Baso % (Auto) 0.5 % 02/22/23 04:23 Neut # (Auto) 7.49 10^3/uL (1.8-7.7) 02/22/23 04:23 Lymph # (Auto) 1.5 10^3/uL (0.8-4.8) 02/22/23 04:23 [place] # (Auto) 1.0 10^3/uL (0.2-0.9) H 02/22/23 04:23 Eos # (Auto) 0.3 10^3/uL (0.0-0.8) 02/22/23 04:23 Baso # (Auto) 0.1 10^3/uL (0.0-0.1) 02/22/23 04:23 Nucleated RBC % (auto) 0 % 02/22/23 04: Nucleated RBCs # 0.0 /100WBC 02/22/23 04:23 Sodium 136 mmol/L (136-145) 02/24/23 02:58 Potassium 3.7 mmol/L (3.5-5.1) 02/24/23 02:58 Chloride 95 mmol/L (98-107) L 02/24/23 02:58 Carbon Dioxide 27 mmol/L (22-29) 02/24/23 02:58 Anion Gap 17.7 (5-19) 02/24/23 02:58 BUN 43 mg/dL (8-23) H 02/24/23 02:58 Creatinine 7.3 mg/dL (0.7-1.2) H* 02/24/23 02:58 GFR Calculation Not Reportable 02/24/23 02:58 Glucose 99 mg/dL (65-115) 02/24/23 02:58 POC Glucose 127 mg/dL (70-110) H 02/25/23 03:55 Calculated Osmolality 293 mOsm/kg (285-295) 02/24/23 02:58 Calcium 8.8 mg/dL (8.5-10.5) 02/24/23 02:58 Magnesium 2.3 mg/dL (1.7-2.3) 02/19/23 04:44 Total Bilirubin 0.2 mg/dL (0.15-1.2) 02/19/23 04:44 AST 12 U/L (0-40) 02/19/23 04:44 ALT 12 U/L (0-41) 02/19/23 04:44 Alkaline Phosphatase 178 U/L (40-130) H 02/19/23 04:44 Total Protein 5.9 g/dL (6.6-8.7) L D 02/19/23 04:44 Albumin 3.6 g/dL (3.5-5.2) 02/19/23 04:44 Globulin 2.3 g/dL (1.3-4.6) 02/19/23 04:44 Lipase 22 U/L (13-60) 02/18/23 18:24 Nasal Influ A H1 2009 PCR Not detected (NOT DETECT) 02/18/23 20:43 Adenovirus (PCR) Not detected (NOT DETECT) 02/18/23 20:43 C. pneumoniae DNA (PCR) Not detected (NOT DETECT) 02/18/23 20:43 Coronavirus 229E (PCR) Not detected (NOT DETECT) 02/18/23 20:43 Human Metapneumovir PCR Not detected (NOT DETECT) 02/18/23 20:43 Influenza A (H1) PCR Not detected (NOT DETECT) 02/18/23 20:43 Influenza A (H3) PCR Not detected (NOT DETECT) 02/18/23 20:43 Influenza Type A (PCR) Not detected (NOT DETECT) 02/18/23 20:43 Influenza Type B (PCR) Not detected (NOT DETECT) 02/18/23 20:43 M. pneumoniae (PCR) Not detected (NOT DETECT) 02/18/23 20:43 Parainfluenza 1 (PCR) Not detected (NOT DETECT) 02/18/23 20:43 Parainfluenza 2 (PCR) Not detected (NOT DETECT) 02/18/23 20:43 Parainfluenza 3 (PCR) Not detected (NOT DETECT) 02/18/23 20:43 Parainfluenza 4 (PCR) Not detected (NOT DETECT) 02/18/23 20:43 RSV Type A (PCR) Not detected (NOT DETECT) 02/18/23 20:43 RSV Type B (PCR) Not detected (NOT DETECT) 02/18/23 20:43 Entero/Rhino (PCR) Not detected (NOT DETECT) 02/18/23 20:43 SARS-CoV-2 (PCR) Not detected (NOT DETECT) 02/18/23 20:43 SARS-CoV-2 Ag (Rapid) negative (Negative) 02/25/23 06:33 Vitals Last Vital Signs Temp 97.9 F 02/25/23 07:33 Pulse 76 02/25/23 08:00 Resp 16 02/25/23 07:33 BP 112/60 02/25/23 07:33 Pulse Ox 93 02/25/23 08:00 O2 Del Method Nasal Cannula 02/25/23 08:00 O2 Flow Rate 3 02/25/23 08:00 Discharge Plan Discharge Patient Disposition: Xfer SNF Condition: Stable Prescriptions: New meclizine 50 mg tablet 50 mg PO TID PRN (Reason: dizziness) Qty: 20 0RF Continued pantoprazole 40 mg tablet,delayed release (DR/EC) 40 mg PO QAM terazosin 10 mg capsule 10 mg PO BID acetaminophen [Tylenol Extra Strength] 500 mg tablet 1,000 mg PO Q6H PRN (Reason: Pain) Novolog FlexPen U-100 Insulin 100 unit/mL (3 mL) insulin pen See Rx Instructions .ROUTE .COMPLEX Qty: 15 0RF Rx Instructions: SLIDING SCALE Before or right after meals prn (DME) Diabetic Shoes See Rx Instructions .ROUTE .MEDSUPPLY Qty: 1 0RF Rx Instructions: As directed [employer] P [employer] with 3 pairs of inserts (DME) Diabetic Shoes See Rx Instructions .ROUTE .MEDSUPPLY Qty: 1 0RF Rx Instructions: As directed By [facility] [employer] with 3 pairs of inserts magnesium oxide 400 mg magnesium capsule 400 mg PO BEDTIME rosuvastatin [Crestor] 10 mg tablet 10 mg PO BEDTIME irbesartan 300 mg tablet 300 mg PO BEDTIME sevelamer carbonate 800 mg tablet 1,600 mg PO BID cholecalciferol (vitamin D3) 50 mcg (2,000 unit) capsule 50 mcg PO BEDTIME omega 1-rvi-ngb-fish oil [Fish Oil] 1,000 mg (120 mg-180 mg) capsule 2 cap PO BID (DME) FreeStyle Inocencia 14 Day Sensor Kit See Rx Instructions .Route Qty: 1 0RF Rx Instructions: As directed (DME) FreeStyle Inocencia 14 Day [place] Misc See Rx Instructions .Route Qty: 1 0RF Rx Instructions: As directed (DME) BIPAP and supplies See Rx Instructions .Route .MEDSUPPLY Qty: 1 0RF Rx Instructions: with 2L of oxygen when in use levothyroxine 25 mcg Tablet 25 mcg PO QAM clopidogrel 75 mg tablet 75 mg PO BEDTIME Hold Instructions: Resume on 07/10/21. aspirin 81 mg tablet,delayed release (DR/EC) 81 mg PO QAM Hold Instructions: Resume on 07/07/21. cetirizine [Zyrtec] 10 mg Tablet 10 mg PO BID Lexapro 20 mg tablet 20 mg PO QAM isosorbide mononitrate 60 mg Tablet Extended Release 24 Hr 60 mg PO BID Qty: 60 0RF furosemide [Lasix] 80 mg Tablet 80 mg PO BID allopurinol 300 mg Tablet 300 mg PO QAM folic acid 0.8 mg Capsule 0.4 mg PO BEDTIME hydralazine 10 mg tablet 10 mg PO TID amlodipine 10 mg Tablet 10 mg PO BEDTIME nitroglycerin [Nitrostat] 0.4 mg Tablet, Sublingual 0.4 mg SUBLINGUAL Q5M PRN (Reason: Chest Pain) Rx Instructions: do not exceed 3 doses per episode ranolazine 500 mg tablet extended release 12 hr 500 mg PO BID Qty: 14 0RF carvedilol 25 mg Tablet 12.5 mg PO BID Levemir FlexPen 100 unit/mL (3 mL) Insulin Pen 20 unit SUBCUT BEDTIME Discharge Orders: Discharge Order (Routine); Ordered 02/25/23 Ordered By: Bre Perdue Other Ambulatory Orders: DME: Oxygen (Order) Location: None Selected Ordered By: Kenya Sanchez Referrals: [facility] [Outside] Carlee Carreon DO [Primary Care Provider] - 03/17/23 8:30 am () Discharge Diet: Cardiac Discharge Activity: As per PT/OT instructions Patient Instructions: Meclizine (By mouth) (Antivert, Antivert/25, Antivert/50, Motion..., Dialysis Diet (DC), Benign Paroxysmal Positional Vertigo (DC), Hemodialysis (DC), Opioid Safety Activity Restrictions/Additional Instructions: Requires vestibular rehab/karmen maneuvers. Discharge Attestations Time Spent in Discharge Care*: greater than 30 min Status at Discharge: Cognitive status at discharge: cognitively intact, Behavioral status at discharge: [facility], Quality Metrics Clinical Quality Measures [ No reported AMI, CVA or VTE this stay] Coding Level of Care Code Acute Code for Chg Fwd Diagnoses BPPV (benign paroxysmal positional vertigo) H81.10 Intractable vomiting R11.10 Depression F33.1 Active/Remission status: currently active Depression Type: major depressive disorder Major depression episode severity: moderate Major depression recurrence: recurrent ESRD (end stage renal disease) N18.6 T2DM (type 2 diabetes mellitus) E11.22; N18.6; Z79.4; Z99.2 Chronic kidney disease stage: on chronic dialysis Diabetes mellitus complication detail: with chronic kidney disease Diabetes mellitus complication status: with kidney complications Diabetes mellitus joint terminal attack controller insulin use: with custodial use
--- NOTE | 2023-02-25 13:48 | PC.HD ---
Telenephrologist wrote for 4 hour treatment. Patient states his clinic treatments are 3.5 hours, and requested us to shorten treatment time to that. Telenephrologist was amenable and patient's treatment ran for 3.5 hours. Tolerated well.
--- NOTE | 2023-02-25 13:57 | PM.PN ---
Subjective Subjective: getting HD Medications: Reviewed: Yes Vitals/I&O/Wt Last Vital Signs Temp 98.1 F 02/25/23 10:33 Pulse 65 02/25/23 10:33 Resp 18 02/25/23 10:33 BP 130/67 02/25/23 10:33 Pulse Ox 93 02/25/23 08:00 O2 Del Method Nasal Cannula 02/25/23 08:00 O2 Flow Rate 3 02/25/23 08:00 02/24/23 02/25/23 02/25/23 22:59 06:59 14:59 Intake Total 340 / 700 100 / 800 240 / 240 Output Total 50 / 50 Balance 340 / 700 50 / 750 240 / 240 Physical Exam Narrative: AWAKE ,A LERT NO DISTRESS S1S2 RRR PER REPORT LUNGS CLEAR HUNG per report NO EDEMA Data 02/22/23 04:23 02/24/23 02:58 A&P Assessment and plan (1) ESRD (end stage renal disease): 1. ESRD 2. Hypertension 3.DM 4. Intractable nausea/Vomiting and dizziness , MRI done 5. Cad Plan : s/p HD friday next HD today , UF as tolerated , Hb @ goal. Attestations Medical Necessity Statement*: per medicine team Coding Level of Care Code Acute Code for Chg Fwd Diagnoses ESRD (end stage renal disease) N18.6
--- NOTE | 2023-02-25 14:50 | PC.NURSE ---
Attempted to call report on pt x2. On hold for over 8 minutes each time. Pt plan is to dc at 1500.
--- NOTE | 2023-02-25 16:15 | PC.NURSE ---
Attempted to call report in again. Talked with Cathryn. States they will return call.
--- NOTE | 2023-02-25 16:43 | PC.NURSE ---
Report called in to Zoraida at [facility].
== END 2023-02-25 15:00 | disposition skilled nursing facility (03) | DRG 149 ==
LOC: ER 20:12 → MEDSURG 21:30
PROVIDERS: Internal Medicine; Admitting Provider Student in an Organized Health Care Education/Training Program; Emergency Provider Emergency Medicine; PCP Family Medicine; Visit Provider Internal Medicine
DX: H81.10 Benign paroxysmal vertigo, unspecified ear (principal); N18.6 End stage renal disease; F33.1 Major depressive disorder, recurrent, moderate; I13.2 Hypertensive heart and chronic kidney disease with heart failure and with stage 5 chronic kidney disease, or end stage renal disease; R11.10 Vomiting, unspecified; R09.02 Hypoxemia; I65.23 Occlusion and stenosis of bilateral carotid arteries; G47.33 Obstructive sleep apnea (adult) (pediatric); I25.2 Old myocardial infarction; E03.9 Hypothyroidism, unspecified; Z86.16 Personal history of COVID-19; E78.5 Hyperlipidemia, unspecified; Z86.73 Personal history of transient ischemic attack (TIA), and cerebral infarction without residual deficits; I25.10 Atherosclerotic heart disease of native coronary artery without angina pectoris; Z95.5 Presence of coronary angioplasty implant and graft; E11.22 Type 2 diabetes mellitus with diabetic chronic kidney disease; I50.9 Heart failure, unspecified; Z99.2 Dependence on renal dialysis; E11.42 Type 2 diabetes mellitus with diabetic polyneuropathy
CPT/HCPCS: 36415; 36416; 70551; 71045; 74176; 80048; 80053; 82962; 83690; 83735; 84484; 85025; 87426; 87486; 87581; 87633; 90935; 93005; 94760; 96372; 96374; 96375; 97112; 97161; 97530; 99285; G0378; J0360; J1644; J1815; J2405; J2765; J8597; Q3014; Q4081

== ENCOUNTER 2023-02-26 02:43 | Emergency (ER) | payer OTHER, SELFPAY ==
[2023-02-26] VITALS (39 sets, daily range): BP systolic 106–134; BP diastolic 64–77; PULSE 59–81; RESP 9–24; TEMP 36.8; O2SAT 86–95; BMI 35.2
--- NOTE | 2023-02-26 02:45 | XRR_ITS ---
PROCEDURE INFORMATION: Exam: XR Chest Exam date and time: 02/26/2023 3:09 AM Age: 72 years old Clinical indication: Fever and other: Nausea; Patient HX: Non smoker, no cancer; Additional info: Chest pain TECHNIQUE: Imaging protocol: Radiologic exam of the chest. Views: 1 view. COMPARISON: CR (CHEST, ) 02/18/2023 7:19 PM FINDINGS: Lungs: Low lung volumes. Mild lung base atelectasis or scarring. Pleural spaces: Unremarkable. No pleural effusion. No pneumothorax. Heart/Mediastinum: Large heart. Coronary stent. Advanced diffuse vascular calcification noted. Bones/joints: Thoracolumbar fusion. Few old right rib deformities. XR/XR chest 1V portable [id number] IMPRESSION: As above, no definite acute process or significant change from 8 days ago.
--- NOTE | 2023-02-26 02:49 | ECG_ITS ---
[facility] Test Date: 2023-02-26 Pat Name: Eliazar Hogan Department: Room: Gender: Male Regulated Program Manager: : 1950 Requested By: Gigi Bautista Order Number: [id number] Ray MD: Mohit Albarado M.D. Measurements Intervals [place] Rate: 77 P: 0 RI: 0 QRS: -9 QRSD: 112 T: 42 QT: 378 QTc: 430 Interpretive Statements ATRIAL FIBRILLATION MODERATE INTRAVENTRICULAR CONDUCTION DELAY [110+ ms QRS DURATION] NONSPECIFIC T-WAVE ABNORMALITY ABNORMAL RHYTHM ECG Compared to ECG 02/18/2023 18:34:23 Intraventricular conduction delay now present T-wave abnormality still present Electronically Signed On 02-27-2023 0:39:44 MATERIALS BRANCH CHIEF by Mohit Albarado M.D. [id number]
[2023-02-26 03:05] LABS: Basophils # 0.1 10^3/uL (0.0-0.1); Basophils % 0.6 %; Eosinophils # 0.3 10^3/uL (0.0-0.8); Eosinophils % 3.4 %; Hematocrit 36.9 % (37-53); Lymphocytes % 11.5 %; Mean Corpuscular HGB Conc 31.7 g/dL (30-55); Mean Corpuscular Volume 88.3 fl (82-101); Mean Platelet Volume 8.7 fL (7.4-10.4); Monocytes # 0.9 10^3/uL (0.2-0.9); Monocytes % 10.1 %; Neutrophils # 6.34 10^3/uL (1.8-7.7); Neutrophils % 73.7 %; Nucleated Red Blood Cells % 0 %; Platelet Count 218 10^3/cmm (157-399); Red Blood Count 4.18 10^6/uL (3.85-5.65); Red Cell Distribution Width 15.7 % (12.1-15.1)
--- NOTE | 2023-02-26 03:17 | PC.NURSE ---
pt placed on cardiac sonographer.
--- NOTE | 2023-02-26 03:24 | ED_ITS ---
HPI - Chest Pain General: Chief Complaint: Chest Pain Stated Complaint: CP Time Seen by Provider: 02/26/23 02:44 History of Present Illness: Patient presents to the ER from the skilled nursing with 1 episode of chest pressure. Also complained of dizziness diaphoresis shortness of breath and nausea at that time patient denies vomiting. Patient says he feels much better now. Patient has an extensive cardiac history with at least 5 stents placed. Patient wears 3 L of oxygen at the skilled nursing at all times. Patient is a dialysis patient usually gets dialysis on Saturdays. Patient did receive 1 nitro in 3-4 aspirins skilled nursing and EMS gave him 324 mg aspirin and 1 more nitro on route. Patient is pain-free at current. 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 Dyslipidemia ESRD (end stage renal disease) Essential hypertension Hemodialysis access site with arteriovenous graft History of 2019 novel coronavirus disease (COVID-19) Hypothyroidism NSTEMI (non-ST elevated myocardial infarction) KAITLYNN (obstructive sleep apnea) Paget's disease Surgical History History of esophagogastroduodenoscopy (EGD) 10 yrs ago Hx of cholecystectomy Previous back surgery S/P angioplasty with stent S/P cataract extraction S/P hemodialysis catheter insertion Family History Mother CAD (coronary artery disease) Stroke Sister Hypertension Social History Smoking and tobacco/nicotine status: never used tobacco/nicotine Alcohol intake: never Substance/Drug Use: never Household members: spouse Marital status: service: Yes branch: [employer] Current occupational status: employed 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 Current gender identity: Male Physical Exam Const: COMMON NORMALS: no acute distress, average body habitus, patient oriented x3, no limitations, healthy appearing, alert and well nourished HENMT: COMMON NORMALS: normocephalic, atraumatic, hearing grossly normal bilaterally, external ears normal, Normal external nose present, moist oral mucous membranes and oropharynx normal HEAD & SCALP: normocephalic and atraumatic NOSE: Normal external nose present EXTERNAL EAR: Yes external ears normal Neck/C-Spine: COMMON NORMALS: no JVD Chest: COMMONS NORMALS: normal inspection of the chest and normal palpation of entire chest wall Resp: COMMON NORMALS: normal respiratory effort, No retractions, No use of accessory muscles and clear to auscultation bilaterally AUSCULTATION: clear to auscultation bilaterally Cardio: COMMON NORMALS: no JVD, regular rate, S1 normal heart sound present, S2 normal heart sound present, No gallops present (Cardio), No clicks present (Cardio), No murmurs present (Cardio) and No rub (Cardio); negative for regular rhythm (Irregularly irregular) RATE: regular rate RHYTHM: abnormal rhythm (Irregularly irregular) HEART SOUNDS: S1 normal heart sound present and S2 normal heart sound present GI: COMMON NORMALS: Normal to inspection, nondistended, normoactive bowel sounds present, Soft to palpation, non-tender, No hepatosplenomegaly present and no masses PALPATION: Yes Soft to palpation and Yes No hepatosplenomegaly present Neuro: COMMON NORMALS: patient oriented x3 SENSORIUM/ORIENTATION: Yes alert Course Vital Signs: Vital signs: Vital Signs Temperature 98.2 F 02/26/23 02:44 Pulse Rate 66 02/26/23 04:25 Respiratory Rate 18 02/26/23 04:25 Blood Pressure 106/76 02/26/23 04:25 Pulse Oximetry 93 02/26/23 04:25 Oxygen Delivery Me thod Nasal Cannula 02/26/23 03:08 Oxygen Flow Rate 3 02/26/23 02:44 MDM - Chest Pain Medical Decision Making labs Differential Diagnosis Unlikely acute massive pulmonary embolism, acute respiratory failure, acute myocardial infarction, cardiac arrest or sudden cardiac Medical Records I reviewed the patient's medical records. Lab Data I reviewed the patient's lab results. 02/26/23 03:00 02/26/23 03:00 Radiology Impressions Chest X-Ray 02/26/23 02:45 IMPRESSION: As above, no definite acute process or significant change from 8 days ago. Laboratory Results WBC 8.60 10^3/uL (3.29-11.43) 02/26/23 03:00 RBC 4.18 10^6/uL (3.85-5.65) 02/26/23 03:00 Hgb 11.70 g/dL (11.27-16.99) 02/26/23 03:00 Hct 36.9 % (37-53) L 02/26/23 03:00 MCV 88.3 fl (82-101) 02/26/23 03:00 MCH 28.0 pg (27-33) 02/26/23 03:00 MCHC 31.7 g/dL (30-55) 02/26/23 03:00 RDW 15.7 % (12.1-15.1) H 02/26/23 03:00 Plt Count 218 10^3/cmm (157-399) 02/26/23 03:00 MPV 8.7 fL (7.4-10.4) 02/26/23 03:00 Neut % (Auto) 73.7 % 02/26/23 03:00 Lymph % (Auto) 11.5 % 02/26/23 03:00 [place] % (Auto) 10.1 % 02/26/23 03:00 Eos % (Auto) 3.4 % 02/26/23 03:00 Baso % (Auto) 0.6 % 02/26/23 03:00 Neut # (Auto) 6.34 10^3/uL (1.8-7.7) 02/26/23 03:00 Lymph # (Auto) 1.0 10^3/uL (0.8-4.8) 02/26/23 03:00 [place] # (Auto) 0.9 10^3/uL (0.2-0.9) 02/26/23 03:00 Eos # (Auto) 0.3 10^3/uL (0.0-0.8) 02/26/23 03:00 Baso # (Auto) 0.1 10^3/uL (0.0-0.1) 02/26/23 03:00 Nucleated RBC % (auto) 0 % 02/26/23 03:00 Nucleated RBCs # 0.0 /100WBC 02/26/23 03:00 Sodium 137 mmol/L (136-145) 02/26/23 03:00 Potassium 4.5 mmol/L (3.5-5.1) 02/26/23 03:00 Chloride 97 mmol/L (98-107) L 02/26/23 03:00 Carbon Dioxide 29 mmol/L (22-29) 02/26/23 03:00 Anion Gap 15.5 (5-19) 02/26/23 03:00 BUN 28 mg/dL (8-23) H 02/26/23 03:00 Creatinine 6.0 mg/dL (0.7-1.2) H* 02/26/23 03:00 GFR Calculation Not Reportable 02/26/23 03:00 Glucose 188 mg/dL (65-115) H 02/26/23 03:00 Calculated Osmolality 294 mOsm/kg (285-295) 02/26/23 03:00 Calcium 9.5 mg/dL (8.5-10.5) 02/26/23 03:00 Phosphorus 3.9 mg/dL (2.5-4.5) 02/26/23 03:00 Magnesium 2.3 mg/dL (1.7-2.3) 02/26/23 03:00 Total Bilirubin 0.4 mg/dL (0.15-1.2) 02/26/23 03:00 AST 7 U/L (0-40) 02/26/23 03:00 ALT 8 U/L (0-41) 02/26/23 03:00 Alkaline Phosphatase 173 U/L (40-130) H 02/26/23 03:00 Troponin T Baseline 149 ng/L (0-15) H* 02/26/23 03:00 Troponin T 120 Minute 132.7 ng/L (0-15) H 02/26/23 05:10 Delta Troponin T -16.3 ABS# (0-10) L 02/26/23 05:10 Total Protein 6.6 g/dL (6.6-8.7) 02/26/23 03:00 Albumin 3.9 g/dL (3.5-5.2) 02/26/23 03:00 Globulin 2.7 g/dL (1.3-4.6) 02/26/23 03:00 All radiology interpretation(s) finalized by discharge EKG Data EKG 1: I personally reviewed and interpreted this EKG as follows: EKG interpretation date: 02/26/23 EKG interpretation time: 02:49 Prior EKG tracings: available for review Interpretation: EKG showed ventricular rate 77 bpm, QRS duration 112, QTc of 410, atrial fibrillation, moderate intraventricular conduction delay, nonspecific T wave abnormality EKG 2: I personally reviewed and interpreted this EKG as follows: EKG interpretation date: 02/26/23 EKG interpretation time: 05:04 Prior EKG tracings: available for review Interpretation: EKG showed ventricular rate 64 beats minute, QRS duration 113, QTc of 415, A- fib, moderate intraventricular conduction delay, nonspecific T wave abnormality Discharge Plan Discharge Patient Disposition: Home Clinical Impression: Atypical chest pain Condition: Stable Prescriptions: No Action pantoprazole 40 mg tablet,delayed release (DR/EC) 40 mg PO QAM terazosin 10 mg capsule 10 mg PO BID acetaminophen [Tylenol Extra Strength] 500 mg tablet 1,000 mg PO Q6H PRN (Reason: Pain) Novolog FlexPen U-100 Insulin 100 unit/mL (3 mL) insulin pen See Rx Instructions .ROUTE .COMPLEX Qty: 15 0RF Rx Instructions: SLIDING SCALE Before or right after meals prn (DME) Diabetic Shoes See Rx Instructions .ROUTE .MEDSUPPLY Qty: 1 0RF Rx Instructions: As directed J P & O with 3 pairs of inserts (DME) Diabetic Shoes See Rx Instructions .ROUTE .MEDSUPPLY Qty: 1 0RF Rx Instructions: As directed By J P & O with 3 pairs of inserts magnesium oxide 400 mg magnesium capsule 400 mg PO BEDTIME rosuvastatin [Crestor] 10 mg tablet 10 mg PO BEDTIME irbesartan 300 mg tablet 300 mg PO BEDTIME sevelamer carbonate 800 mg tablet 1,600 mg PO BID cholecalciferol (vitamin D3) 50 mcg (2,000 unit) capsule 50 mcg PO BEDTIME omega 7-amw-sks-fish oil [Fish Oil] 1,000 mg (120 mg-180 mg) capsule 2 cap PO BID (DME) FreeStyle Inocencia 14 Day Sensor Kit See Rx Instructions .Route Qty: 1 0RF Rx Instructions: As directed (DME) FreeStyle Inocencia 14 Day [place] Misc See Rx Instructions .Route Qty: 1 0RF Rx Instructions: As directed (DME) BIPAP and supplies See Rx Instructions .Route .MEDSUPPLY Qty: 1 0RF Rx Instructions: with 2L of oxygen when in use levothyroxine 25 mcg Tablet 25 mcg PO QAM clopidogrel 75 mg tablet 75 mg PO BEDTIME Hold Instructions: Resume on 07/10/21. aspirin 81 mg tablet,delayed release (DR/EC) 81 mg PO QAM Hold Instructions: Resume on 07/07/21. cetirizine [Zyrtec] 10 mg Tablet 10 mg PO BID Lexapro 20 mg tablet 20 mg PO QAM isosorbide mononitrate 60 mg Tablet Extended Release 24 Hr 60 mg PO BID Qty: 60 0RF furosemide [Lasix] 80 mg Tablet 80 mg PO BID allopurinol 300 mg Tablet 300 mg PO QAM folic acid 0.8 mg Capsule 0.4 mg PO BEDTIME hydralazine 10 mg tablet 10 mg PO TID amlodipine 10 mg Tablet 10 mg PO BEDTIME nitroglycerin [Nitrostat] 0.4 mg Tablet, Sublingual 0.4 mg SUBLINGUAL Q5M PRN (Reason: Chest Pain) Rx Instructions: do not exceed 3 doses per episode ranolazine 500 mg tablet extended release 12 hr 500 mg PO BID Qty: 14 0RF carvedilol 25 mg Tablet 12.5 mg PO BID Levemir FlexPen 100 unit/mL (3 mL) Insulin Pen 20 unit SUBCUT BEDTIME meclizine 50 mg tablet 50 mg PO TID PRN (Reason: dizziness) Qty: 20 0RF Discharge Orders: Discharge ED (Routine); Ordered 02/26/23 Ordered By: Gigi Bautista Referrals: Carlee Carreon DO [Primary Care Provider] - 1 week Patient Instructions: Chest Pain (ED) Coding Level of Care Code ED Bar Finish Operator for Les Fuentes
[2023-02-26 03:27] LABS: Alanine Aminotransferase 8 U/L (0-41); Albumin Level 3.9 g/dL (3.5-5.2); Alkaline Phosphatase 173 U/L (40-130); Anion Gap 15.5 (5-19); Aspartate Amino Transferase 7 U/L (0-40); Blood Urea Nitrogen 28 mg/dL (8-23); Calcium 9.5 mg/dL (8.5-10.5); Carbon Dioxide 29 mmol/L (22-29); Chloride 97 mmol/L (98-107); Globulin 2.7 g/dL (1.3-4.6); Glucose 188 mg/dL (65-115); Magnesium 2.3 mg/dL (1.7-2.3); Osmolality Calculated 294 mOsm/kg (285-295); Phosphorus 3.9 mg/dL (2.5-4.5); Potassium 4.5 mmol/L (3.5-5.1); Sodium 137 mmol/L (136-145); Total Bilirubin 0.4 mg/dL (0.15-1.2); Total Protein 6.6 g/dL (6.6-8.7)
[2023-02-26 03:29] LABS: Troponin(5th) Baseline 149 ng/L (0-15)
--- NOTE | 2023-02-26 05:02 | PC.NURSE ---
spoke with Lisa from [facility], updated on pt status.
--- NOTE | 2023-02-26 05:04 | ECG_ITS ---
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 Measurements Intervals [place] Rate: 64 P: 0 MS: 0 QRS: -11 QRSD: 113 T: 17 QT: 406 QTc: 419 Interpretive Statements ATRIAL FIBRILLATION MODERATE INTRAVENTRICULAR CONDUCTION DELAY [110+ ms QRS DURATION] NONSPECIFIC T-WAVE ABNORMALITY ABNORMAL RHYTHM ECG Compared to ECG 02/26/2023 02:49:19 No significant changes Electronically Signed On 02-27-2023 0:50:30 INVESTMENT CONSULTANT by Mohit Albarado M.D. [id number]
[2023-02-26 05:35] LABS: Troponin 5 2HR 132.7 ng/L (0-15); Troponin 5 2HR Delta -16.3 ABS# (0-10)
--- NOTE | 2023-02-26 05:50 | PC.NURSE ---
spoke with Lisa from [facility], per Lisa the DONMackenzie said transport will arrive at 0800. if the transport is running behind, Mackenzie will call and update. report given to Lisa.
== END 2023-02-26 07:17 | disposition home or self-care (01) ==
PROVIDERS: Emergency Provider Emergency Medicine; PCP Family Medicine
DX: R07.89 Other chest pain (principal); Z79.4 Long term (current) use of insulin; Z79.02 Long term (current) use of antithrombotics/antiplatelets; Z79.82 Long term (current) use of aspirin; I25.10 Atherosclerotic heart disease of native coronary artery without angina pectoris; E13.22 Other specified diabetes mellitus with diabetic chronic kidney disease; I13.2 Hypertensive heart and chronic kidney disease with heart failure and with stage 5 chronic kidney disease, or end stage renal disease; N18.6 End stage renal disease; I50.9 Heart failure, unspecified; E13.42 Other specified diabetes mellitus with diabetic polyneuropathy; E78.5 Hyperlipidemia, unspecified; I25.2 Old myocardial infarction
CPT/HCPCS: 71045; 80053; 83735; 84100; 84484; 85025; 93005; 99285

== ENCOUNTER 2023-02-28 07:46 | Emergency (ER) | payer OTHER, SELFPAY ==
[2023-02-28] VITALS (41 sets, daily range): BP systolic 111–180; BP diastolic 63–97; PULSE 59–77; RESP 12–23; TEMP 36.6; O2SAT 91–96; BMI 31.9
--- NOTE | 2023-02-28 07:48 | ECG_ITS ---
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 Measurements Intervals [place] Rate: 67 P: 0 NE: 0 QRS: 4 QRSD: 120 T: 57 QT: 422 QTc: 448 Interpretive Statements ATRIAL FIBRILLATION MODERATE INTRAVENTRICULAR CONDUCTION DELAY [105+ ms QRS DURATION, 80+ ms Q/S IN V1/V2, NO Q AND 60+ ms R IN I/aVL/V5/V6] NONSPECIFIC T-WAVE ABNORMALITY Compared to ECG 02/26/2023 05:04:10 No significant changes Electronically Signed On 02-28-2023 20:47:20 CRM MARKETING MANAGER by Mohit Albarado M.D. [id number] preeti
[2023-02-28 07:56] LABS: ABG PCO2 52.6 mmHg (35-45); ABG PH Result 7.44 (7.35-7.45); Alveolar-Arterial Oxygen Gradi 17.5 mmHg (5-10); Arterial Blood Gas Hematocrit 36.5 % (42-52); Base Excess ABG 9.7 mmol/L (-2.0-2.0); Blood Gas Operator Identificat AMH; Blood Gas Sample Site Brachial, right; Blood Gas Sample Type Arterial; Carboxyhemoglobin 1.9 %THgb (0.4-20.1); HCO3 ABG 35.5 mmol/L (22-26); HGB O2 Sat 91.2 % (95-100); Ionized Calcium Level - ABG 1.2 mmol/L (1.1-1.4); Methemoglobin 0.4 % (0.4-1.5); Oxygen Device NC; Oxygen Saturation ABG 93.2; PO2 ABG 60.2 mmHg (80.0-100.0); PO2 FiO2 Ratio Arterial Blood 0; Potassium Level - ABG 3.8 mmol/L (3.5-5.0); Total Hemoglobin 11.9 g/dL (14-18)
--- NOTE | 2023-02-28 08:06 | XR_ITS ---
WS: [id number] Portable AP supine chest, 02/28/2023 Clinical Data: dyspnea/cough Comparison: Portable chest, 02/26/2023 Findings: The patient has a poor inspiratory effort and the right diaphragm is slightly elevated. The re is patchy opacity overlying the right diaphragm which may represent atelectasis and/or pneumonia. The left lung is clear. The heart is enlarged. The aortic arch and descending thoracic aorta show joe cification and tortuosity. There is an old fracture of the right lateral eighth rib. There are monito r leads on the chest wall. There is a posterior thoracolumbar fusion. Impression: 1. Right basilar opacity which could represent atelectasis and/or effusion. 2. Cardiomegaly and atherosclerosis.
[2023-02-28 08:12] LABS: Glucose Point of Care 187 mg/dL (70-110)
[2023-02-28] MEDS: naloxone 0.4 mg/ml SDV IVP (08:13)
--- NOTE | 2023-02-28 08:22 | ED_ITS ---
HPI - Altered Mental Status General: Chief Complaint: Altered Mental Status Stated Complaint: unresponsive Time Seen by Provider: 02/28/23 07:52 PFSH ED PFSH: Medical History Acute kidney injury superimposed on CKD Anemia CAD (coronary artery disease) Cardiac enzymes elevated Carotid stenosis, bilateral Chest pain Chronic back pain Chronic kidney disease Chronic kidney disease (CKD) stage G5/A1, glomerular filtration rate (GFR) less than or equal to 15 mL/min/1.73 square meter and albuminuria creatinine ratio less than 30 mg/g Congestive 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 CVA (cerebral vascular accident) Diabetes 1.5, 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 Dyslipidemia ESRD (end stage renal disease) Essential hypertension Hemodialysis access site with arteriovenous graft History of 2019 novel coronavirus disease (COVID-19) Hypothyroidism NSTEMI (non-ST elevated myocardial infarction) KAITLYNN (obstructive sleep apnea) Paget's disease Surgical History History of esophagogastroduodenoscopy (EGD) 10 yrs ago Hx of cholecystectomy Previous back surgery S/P angioplasty with stent S/P cataract extraction S/P hemodialysis catheter insertion Family History Mother CAD (coronary artery disease) Stroke Sister Hypertension Social History Smoking and tobacco/nicotine status: never used tobacco/nicotine Alcohol intake: never Substance/Drug Use: never Household members: spouse Marital status: service: Yes branch: [employer] Current occupational status: employed Current occupation: [employer] Current gender identity: Male Course 2 Vital Signs: Vital signs: Vital Signs Temperature 97.9 F 02/28/23 07:47 Pulse Rate 70 02/28/23 08:16 Respiratory Rate 18 02/28/23 08:16 Blood Pressure 170/79 02/28/23 08:16 Pulse Oximetry 96 02/28/23 08:16 Oxygen Delivery Me thod Nasal Cannula 02/28/23 08:16 Oxygen Flow Rate 4 02/28/23 08:16 MDM - Altered Mental Status Lab Data 02/28/23 08:10 02/28/23 08:10 Laboratory Results Specimen Type Arterial 02/28/23 07:45 Sample Site Brachial, right 02/28/23 07:45 ABG pH 7.44 (7.35-7.45) 02/28/23 07:45 ABG pCO2 52.6 mmHg (35-45) H 02/28/23 07:45 ABG pO2 60.2 mmHg (80.0-100.0) L 02/28/23 07:45 ABG PO2/FiO2 Ratio 0 02/28/23 07:45 ABG HCO3 35.5 mmol/L (22-26) H 02/28/23 07:45 ABG O2 Saturation 93.2 02/28/23 07:45 ABG Base Excess 9.7 mmol/L (-2.0-2.0) H 02/28/23 07:45 Ganesh Test N/a 02/28/23 07:45 A-a O2 Gradient 17.5 mmHg (5-10) H 02/28/23 07:45 Hematocrit 36.5 % (42-52) L 02/28/23 07:45 Hgb O2 Saturation 91.2 % (95-100) L 02/28/23 07:45 Carboxyhemoglobin 1.9 %THgb (0.4-20.1) 02/28/23 07:45 Methemoglobin 0.4 % (0.4-1.5) 02/28/23 07:45 Total Hemoglobin 11.9 g/dL (14-18) L 02/28/23 07:45 Sodium 136.0 mmol/L (131-143) 02/28/23 07:45 Potassium 3.8 mmol/L (3.5-5.0) 02/28/23 07:45 Glucose 185.0 mg/dL (70-115) H 02/28/23 07:45 Ionized Calcium 1.2 mmol/L (1.1-1.4) 02/28/23 07:45 O2 Delivery Device Nc 02/28/23 07:45 O2 Liters/Min 4.0 % 02/28/23 07:45 FiO2 36.0 % 02/28/23 07:45 Digital Print Operator ID [id number] 02/28/23 07:45 POC Glucose 187 mg/dL (70-110) H 02/28/23 07:49 Discharge Plan Discharge Condition: Stable Prescriptions: No Action pantoprazole 40 mg tablet,delayed release (DR/EC) 40 mg PO QAM terazosin 10 mg capsule 10 mg PO BID acetaminophen [Tylenol Extra Strength] 500 mg tablet 1,000 mg PO Q6H PRN (Reason: Pain) Novolog FlexPen U-100 Insulin 100 unit/mL (3 mL) insulin pen See Rx Instructions .ROUTE .COMPLEX Qty: 15 0RF Rx Instructions: SLIDING SCALE Before or right after meals prn (DME) Diabetic Shoes See Rx Instructions .ROUTE .MEDSUPPLY Qty: 1 0RF Rx Instructions: As directed J P & O with 3 pairs of inserts (DME) Diabetic Shoes See Rx Instructions .ROUTE .MEDSUPPLY Qty: 1 0RF Rx Instructions: As directed By J P & O with 3 pairs of inserts magnesium oxide 400 mg magnesium capsule 400 mg PO BEDTIME rosuvastatin [Crestor] 10 mg tablet 10 mg PO BEDTIME irbesartan 300 mg tablet 300 mg PO BEDTIME sevelamer carbonate 800 mg tablet 1,600 mg PO BID cholecalciferol (vitamin D3) 50 mcg (2,000 unit) capsule 50 mcg PO BEDTIME omega 2-fak-lbs-fish oil [Fish Oil] 1,000 mg (120 mg-180 mg) capsule 2 cap PO BID (DME) FreeStyle Inocencia 14 Day Sensor Kit See Rx Instructions .Route Qty: 1 0RF Rx Instructions: As directed (DME) FreeStyle Inocencia 14 Day [place] Misc See Rx Instructions .Route Qty: 1 0RF Rx Instructions: As directed (DME) BIPAP and supplies See Rx Instructions .Route .MEDSUPPLY Qty: 1 0RF Rx Instructions: with 2L of oxygen when in use levothyroxine 25 mcg Tablet 25 mcg PO QAM clopidogrel 75 mg tablet 75 mg PO BEDTIME Hold Instructions: Resume on 07/10/21. aspirin 81 mg tablet,delayed release (DR/EC) 81 mg PO QAM Hold Instructions: Resume on 07/07/21. cetirizine [Zyrtec] 10 mg Tablet 10 mg PO BID Lexapro 20 mg tablet 20 mg PO QAM isosorbide mononitrate 60 mg Tablet Extended Release 24 Hr 60 mg PO BID Qty: 60 0RF furosemide [Lasix] 80 mg Tablet 80 mg PO BID allopurinol 300 mg Tablet 300 mg PO QAM folic acid 0.8 mg Capsule 0.4 mg PO BEDTIME hydralazine 10 mg tablet 10 mg PO TID amlodipine 10 mg Tablet 10 mg PO BEDTIME nitroglycerin [Nitrostat] 0.4 mg Tablet, Sublingual 0.4 mg SUBLINGUAL Q5M PRN (Reason: Chest Pain) Rx Instructions: do not exceed 3 doses per episode ranolazine 500 mg tablet extended release 12 hr 500 mg PO BID Qty: 14 0RF carvedilol 25 mg Tablet 12.5 mg PO BID Levemir FlexPen 100 unit/mL (3 mL) Insulin Pen 20 unit SUBCUT BEDTIME meclizine 50 mg tablet 50 mg PO TID PRN (Reason: dizziness) Qty: 20 0RF Referrals: Carlee Carreon DO [Primary Care Provider] - Patient Instructions: Altered Mental Status (ED), Alcohol Intoxication (ED), Benzodiazepine Use Disorder (ED), Concussion (ED), Dementia (ED), Subarachnoid Hemorrhage (GEN), Hyponatremia (ED), Non-diabetic Hypoglycemia (ED), Hypoglycemia in a Person with Diabetes (ED) Coding Level of Care Code ED Die Cast Supervisor for Les Fuentes
[2023-02-28 08:26] LABS: Basophils # 0.1 10^3/uL (0.0-0.1); Basophils % 0.4 %; Eosinophils # 0.2 10^3/uL (0.0-0.8); Eosinophils % 1.6 %; Hematocrit 41.2 % (37-53); Lymphocytes # 1.4 10^3/uL (0.8-4.8); Lymphocytes % 12.9 %; Mean Corpuscular HGB Conc 31.3 g/dL (30-55); Mean Corpuscular Hemoglobin 28.2 pg (27-33); Mean Platelet Volume 9.8 fL (7.4-10.4); Monocytes % 8.9 %; Neutrophils # 8.44 10^3/uL (1.8-7.7); Neutrophils % 75.8 %; Nucleated Red Blood Cells % 0 %; Platelet Count 298 10^3/cmm (157-399); Red Blood Count 4.58 10^6/uL (3.85-5.65); Red Cell Distribution Width 15.9 % (12.1-15.1); White Blood Count 11.15 10^3/uL (3.29-11.43)
--- NOTE | 2023-02-28 08:31 | ED_ITS ---
HPI - General Adult General: Chief complaint: Altered Mental Status Stated complaint: unresponsive Time Seen by Provider: 02/28/23 07:52 Source: patient Mode of arrival: EMS History of Present Illness: 70-year-old male [facility]. Dialysis this morning is poorly responsive. He did not respond to painful stimuli per EMS while in route here he resists me opening his eyes and he does have a blink reflex with glabellar tap grimaces slightly with painful stimuli but does not vocalize anything there is no reports of chest pain or shortness of breath prior to EMS being called. No fever oxygen sats are stable. 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 Dyslipidemia ESRD (end stage renal disease) Essential hypertension Hemodialysis access site with arteriovenous graft History of 2019 novel coronavirus disease (COVID-19) Hypothyroidism NSTEMI (non-ST elevated myocardial infarction) KAITLYNN (obstructive sleep apnea) Paget's disease Surgical History History of esophagogastroduodenoscopy (EGD) 10 yrs ago Hx of cholecystectomy Previous back surgery S/P angioplasty with stent S/P cataract extraction S/P hemodialysis catheter insertion Family History Mother CAD (coronary artery disease) Stroke Sister Hypertension Social History Smoking and tobacco/nicotine status: never used tobacco/nicotine Alcohol intake: never Substance/Drug Use: never Household members: spouse Marital status: service: Yes branch: [employer] Current occupational status: employed Current occupation: [employer] Current gender identity: Male Physical Exam HENMT: COMMON NORMALS: normocephalic, atraumatic and hearing grossly normal bilaterally HEAD & SCALP: normocephalic and atraumatic Resp: COMMON NORMALS: normal respiratory effort, No retractions, No use of accessory muscles and clear to auscultation bilaterally AUSCULTATION: clear to auscultation bilaterally Cardio: COMMON NORMALS: regular rate, regular rhythm and No murmurs present (Cardio) RATE: regular rate RHYTHM: regular rhythm GI: COMMON NORMALS: Soft to palpation and No hepatosplenomegaly present AUSCULTATION: Yes normoactive bowel sounds PALPATION: Yes Soft to palpation, No Tenderness to palpation present (GI), No Guarding due to palpation present (GI) and Yes No hepatosplenomegaly present Extremity: COMMON NORMALS: normal to inspection, capillary refill normal, no clubbing, cyanosis or edema, no calf tenderness and no pedal edema Skin: COMMON NORMALS: no rashes or lesions noted GENERAL SKIN EXAM: no rashes or lesions noted Course Vital Signs: Vital signs: Vital Signs Temperature 97.9 F 02/28/23 07:47 Pulse Rate 60 02/28/23 12:10 Respiratory Rate 17 02/28/23 12:10 Blood Pressure 129/63 02/28/23 12:15 Pulse Oximetry 93 02/28/23 09:35 Oxygen Delivery Me thod Room Air 02/28/23 08:52 Oxygen Flow Rate 4 02/28/23 08:16 MDM - General Adult Medical Decision Making Patient spontaneously recovered and is back at his baseline. He states he has had these episodes before does not wish to be admitted [facility] Discussed observation for further evaluation he declines wishes to [facility] the [facility]. Will discharge back continue routine cares monitor blood sugars closely. Return if there are further problems. Medical Records I reviewed the patient's medical records. Lab Data I reviewed the patient's lab results. 02/28/23 08:10 02/28/23 08:10 Laboratory Results WBC 11.15 10^3/uL (3.29-11.43) 02/28/23 08:10 RBC 4.58 10^6/uL (3.85-5.65) 02/28/23 08:10 Hgb 12.90 g/dL (11.27-16.99) 02/28/23 08:10 Hct 41.2 % (37-53) 02/28/23 08:10 MCV 90.0 fl (82-101) 02/28/23 08:10 MCH 28.2 pg (27-33) 02/28/23 08:10 MCHC 31.3 g/dL (30-55) 02/28/23 08:10 RDW 15.9 % (12.1-15.1) H 02/28/23 08:10 Plt Count 298 10^3/cmm (157-399) 02/28/23 08:10 MPV 9.8 fL (7.4-10.4) 02/28/23 08:10 Neut % (Auto) 75.8 % 02/28/23 08:10 Lymph % (Auto) 12.9 % 02/28/23 08:10 [place] % (Auto) 8.9 % 02/28/23 08:10 Eos % (Auto) 1.6 % 02/28/23 08:10 Baso % (Auto) 0.4 % 02/28/23 08:10 Neut # (Auto) 8.44 10^3/uL (1.8-7.7) H 02/28/23 08:10 Lymph # (Auto) 1.4 10^3/uL (0.8-4.8) 02/28/23 08:10 [place] # (Auto) 1.0 10^3/uL (0.2-0.9) H 02/28/23 08:10 Eos # (Auto) 0.2 10^3/uL (0.0-0.8) 02/28/23 08:10 Baso # (Auto) 0.1 10^3/uL (0.0-0.1) 02/28/23 08:10 Nucleated RBC % (auto) 0 % 02/28/23 08:10 Nucleated RBCs # 0.0 /100WBC 02/28/23 08:10 Specimen Type Arterial 02/28/23 07:45 Sample Site Brachial, right 02/28/23 07:45 ABG pH 7.44 (7.35-7.45) 02/28/23 07:45 ABG pCO2 52.6 mmHg (35-45) H 02/28/23 07:45 ABG pO2 60.2 mmHg (80.0-100.0) L 02/28/23 07:45 ABG PO2/FiO2 Ratio 0 02/28/23 07:45 ABG HCO3 35.5 mmol/L (22-26) H 02/28/23 07:45 ABG O2 Saturation 93.2 02/28/23 07:45 ABG Base Excess 9.7 mmol/L (-2.0-2.0) H 02/28/23 07:45 Ganesh Test N/a 02/28/23 07:45 A-a O2 Gradient 17.5 mmHg (5-10) H 02/28/23 07:45 Hematocrit 36.5 % (42-52) L 02/28/23 07:45 Hgb O2 Saturation 91.2 % (95-100) L 02/28/23 07:45 Carboxyhemoglobin 1.9 %THgb (0.4-20.1) 02/28/23 07:45 Methemoglobin 0.4 % (0.4-1.5) 02/28/23 07:45 Total Hemoglobin 11.9 g/dL (14-18) L 02/28/23 07:45 Sodium 136.0 mmol/L (131-143) 02/28/23 07:45 Potassium 3.8 mmol/L (3.5-5.0) 02/28/23 07:45 Glucose 185.0 mg/dL (70-115) H 02/28/23 07:45 Ionized Calcium 1.2 mmol/L (1.1-1.4) 02/28/23 07:45 O2 Delivery Device Nc 02/28/23 07:45 O2 Liters/Min 4.0 % 02/28/23 07:45 FiO2 36.0 % 02/28/23 07:45 Mediator ID Amh 02/28/23 07:45 Sodium 137 mmol/L (136-145) 02/28/23 08:10 Potassium 4.1 mmol/L (3.5-5.1) 02/28/23 08:10 Chloride 91 mmol/L (98-107) L 02/28/23 08:10 Carbon Dioxide 34 mmol/L (22-29) H 02/28/23 08:10 Anion Gap 16.1 (5-19) 02/28/23 08:10 BUN 25 mg/dL (8-23) H 02/28/23 08:10 Creatinine 5.1 mg/dL (0.7-1.2) H 02/28/23 08:10 GFR Calculation Not Reportable 02/28/23 08:10 Glucose 188 mg/dL (65-115) H 02/28/23 08:10 POC Glucose 187 mg/dL (70-110) H 02/28/23 07:49 Calculated Osmolality 293 mOsm/kg (285-295) 02/28/23 08:10 Lactic Acid 1.6 mmol/L (0.5-2.2) 02/28/23 08:10 Calcium 10.3 mg/dL (8.5-10.5) 02/28/23 08:10 Magnesium 2.4 mg/dL (1.7-2.3) H 02/28/23 08:10 Total Bilirubin 0.5 mg/dL (0.15-1.2) 02/28/23 08:10 AST 11 U/L (0-40) 02/28/23 08:10 ALT 10 U/L (0-41) 02/28/23 08:10 Alkaline Phosphatase 185 U/L (40-130) H 02/28/23 08:10 Ammonia 24 umol/L (16-60) 02/28/23 08:10 Troponin T Baseline 146 ng/L (0-15) H* 02/28/23 08:10 Troponin T 120 Minute 137.6 ng/L (0-15) H 02/28/23 10:28 Delta Troponin T -8.4 ABS# (0-10) L 02/28/23 10:28 Total Protein 7.8 g/dL (6.6-8.7) 02/28/23 08:10 Albumin 4.1 g/dL (3.5-5.2) 02/28/23 08:10 Globulin 3.7 g/dL (1.3-4.6) 02/28/23 08:10 Lipase 25 U/L (13-60) 02/28/23 08:10 All radiology interpretation(s) finalized by discharge Discharge Plan Discharge Patient Disposition: Home Clinical Impression: Syncope, End-stage renal disease (ESRD) Condition: Stable Prescriptions: No Action pantoprazole 40 mg tablet,delayed release (DR/EC) 40 mg PO QAM terazosin 10 mg capsule 10 mg PO BID acetaminophen [Tylenol Extra Strength] 500 mg tablet 1,000 mg PO Q6H PRN (Reason: Pain) Novolog FlexPen U-100 Insulin 100 unit/mL (3 mL) insulin pen See Rx Instructions .ROUTE .COMPLEX Qty: 15 0RF Rx Instructions: Before or right after meals prn. SLIDING SCALE: FOR BS 150-200=0 UNITS, 201- 250= 2 UNITS, 251-300= 4 UNITS, 301-350= 6 UNITS, 351-400= 8 UNITS. (DME) Diabetic Shoes See Rx Instructions .ROUTE .MEDSUPPLY Qty: 1 0RF Rx Instructions: As directed [facility] [employer] with 3 pairs of inserts (DME) Diabetic Shoes See Rx Instructions .ROUTE .MEDSUPPLY Qty: 1 0RF Rx Instructions: As directed By [facility] [employer] [facility] with 3 pairs of inserts magnesium oxide 400 mg magnesium capsule 400 mg PO BEDTIME rosuvastatin [Crestor] 10 mg tablet 10 mg PO BEDTIME sevelamer carbonate 800 mg tablet 1,600 mg PO BID cholecalciferol (vitamin D3) 50 mcg (2,000 unit) capsule 50 mcg PO BEDTIME omega 1-[id number]-uwb-fish oil [Fish Oil] 1,000 mg (120 mg-180 mg) capsule 2 cap PO BID (DME) FreeStyle Inocencia 14 Day Sensor Kit See Rx Instructions .Route Qty: 1 0RF Rx Instructions: As directed ([facility]) FreeStyle Inocencia 14 Day [place] Misc See Rx Instructions .Route Qty: 1 0RF Rx Instructions: As directed ([facility]) BIPAP and supplies See Rx Instructions .Route .MEDSUPPLY Qty: 1 0RF Rx Instructions: with 2L of oxygen when in use levothyroxine 25 mcg Tablet 25 mcg PO QAM clopidogrel 75 mg tablet 75 mg PO BEDTIME Hold Instructions: Resume on 07/10/21. aspirin 81 mg tablet,delayed release (DR/EC) 81 mg PO QAM Hold Instructions: Resume on 07/07/21. cetirizine [Zyrtec] 10 mg Tablet 10 mg PO BID Lexapro 20 mg tablet 20 mg PO QAM isosorbide mononitrate 60 mg Tablet Extended Release 24 Hr 60 mg PO BID Qty: 60 0RF furosemide [Lasix] 80 mg Tablet 80 mg PO BID hydralazine 10 mg tablet 10 mg PO TID nitroglycerin [Nitrostat] 0.4 mg Tablet, Sublingual 0.4 mg SUBLINGUAL Q5M PRN (Reason: Chest Pain) Rx Instructions: do not exceed 3 doses per episode ranolazine 500 mg tablet extended release 12 hr 500 mg PO BID Qty: 14 0RF carvedilol 25 mg Tablet 12.5 mg PO BID Levemir FlexPen 100 unit/mL (3 mL) Insulin Pen 20 unit SUBCUT BEDTIME meclizine 50 mg tablet 50 mg PO TID PRN (Reason: dizziness) Qty: 20 0RF folic acid 400 mcg Tablet 0.4 mg PO DAILY tuberculin PPD 5 tub. unit /0.1 mL Solution 0.1 tb unit INTRADERMAL Q14D Zofran 4 mg Tablet 4 mg PO Q6H PRN (Reason: Nausea) promethazine 25 mg/mL Solution 25 mg IM Q8H PRN (Reason: Nausea And Vomiting) Colace 100 mg Capsule 100 mg PO BID Discharge Orders: Discharge ED (Routine); Ordered 02/28/23 Ordered By: Parish White Referrals: Carlee Carreon DO [Primary Care Provider] - Discharge Diet: Usual diet Discharge Activity: Increase activity as tolerated Patient Instructions: Altered Mental Status (ED), Opioid Safety, Pain Management Activity Restrictions/Additional Instructions: Thank you for choosing [facility] for your healthcare needs today. Please realize this is an emergency room and that we are providing you with a medical screening exam and this may not be complete and all inclusive of all the testing and or work up that you may need to determine your ailment or severity of your illness. It is very important that you follow up as instructed or that you return to the Emergency Department should you have concerns or if your condition changes or worsens in any way. You were seen after an episode of unresponsiveness. Your symptoms have all resolved your laboratory tests are in line with your known previous diagnosis. 50-year-old reported that this is happened to the past that you wish to go home we discharged from the emergency room follow-up to primary care doctor continue all of your previously prescribed medications. Return if you have further problems. Coding Level of Care Code ED Corrosion Control Engineer for Les Fuentes
[2023-02-28 08:44] LABS: Ammonia 24 umol/L (16-60); Lactic Sepsis W/Reflex 1.6 mmol/L (0.5-2.2)
[2023-02-28 08:50] LABS: Alanine Aminotransferase 10 U/L (0-41); Albumin Level 4.1 g/dL (3.5-5.2); Alkaline Phosphatase 185 U/L (40-130); Anion Gap 16.1 (5-19); Aspartate Amino Transferase 11 U/L (0-40); Blood Urea Nitrogen 25 mg/dL (8-23); Calcium 10.3 mg/dL (8.5-10.5); Carbon Dioxide 34 mmol/L (22-29); Chloride 91 mmol/L (98-107); Globulin 3.7 g/dL (1.3-4.6); Glucose 188 mg/dL (65-115); Lipase 25 U/L (13-60); Magnesium 2.4 mg/dL (1.7-2.3); Osmolality Calculated 293 mOsm/kg (285-295); Potassium 4.1 mmol/L (3.5-5.1); Sodium 137 mmol/L (136-145); Total Bilirubin 0.5 mg/dL (0.15-1.2); Total Protein 7.8 g/dL (6.6-8.7); Troponin(5th) Baseline 146 ng/L (0-15)
--- NOTE | 2023-02-28 10:06 | CT_ITS ---
WS: [id number] CT HEAD NONCONTRAST HISTORY: AMS/LOC TECHNIQUE: Contiguous axial imaging performed through the brain in 2.5 mm imaging. Bone and soft tiss ue windows. Sagittal and coronal reformats reviewed. All CT scans at [facility] use at least one of these dose optimization techniques: automated exposure control; mA and/or kV adjustment per pa tient size (includes targeted exams where dose is matched to clinical indication); or iterative recon struction. DLP: 1125.38 mGy.cm COMPARISON: 08/23/2022 No acute intracranial hemorrhage, midline shift or mass effect. Mild symmetric atrophy with moderate small vessel ischemic disease. Lacunar infarct in the RIGHT caud ate head. Ventricles: Normal size with no hydrocephalus. No inferior displacement of the cerebellar tonsils. Paranasal sinuses: Mucous retention cyst in the LEFT sphenoid sinus. Mucoperiosteal thickening in the maxillary and sphenoid sinuses. Mastoid air cells: Well pneumatized. Calvarium and scalp: Skull is intact with no soft tissue edema or swelling. Extensive calcification in the distal vertebral and intracranial carotid arteries. IMPRESSION: 1. No acute intracranial hemorrhage or edema. 2. Stable atrophy and moderate small vessel ischemic disease.
--- NOTE | 2023-02-28 10:08 | ECG_ITS ---
[facility] Test Date: 2023-02-28 Pat Name: Eliazar Hogan Department: Room: Gender: Male All Purpose Clerk: : 1950 Requested By: Parish Matos Order Number: [id number] Flor MD: Mohit Albarado M.D. Measurements Intervals [place] Rate: 68 P: 0 AL: 0 QRS: 9 QRSD: 121 T: 95 QT: 405 QTc: 432 Interpretive Statements ATRIAL FIBRILLATION MODERATE INTRAVENTRICULAR CONDUCTION DELAY [110+ ms QRS DURATION] NONSPECIFIC ST & T-WAVE ABNORMALITY Compared to ECG 02/26/2023 05:04:10 No significant changes Electronically Signed On 02-28-2023 20:55:15 PIT SHOVEL OPERATOR by Mohit Albarado M.D. [id number]
[2023-02-28 10:56] LABS: Troponin 5 2HR 137.6 ng/L (0-15); Troponin 5 2HR Delta -8.4 ABS# (0-10)
[2023-03-01 12:55] LABS: Bacillus cereus group Not Detected (NOT DETECT); Bacillus subtillis group Not Detected (NOT DETECT); Corynebacterium Not Detected (NOT DETECT); Cutibacterium acnes (P.acnes) Not Detected (NOT DETECT); Enterococcus Not Detected (NOT DETECT); Enterococcus faecalis Not Detected (NOT DETECT); Enterococcus faecium Not Detected (NOT DETECT); Lactobacillus species Not Detected (NOT DETECT); Listeria Not Detected (NOT DETECT); Listeria monocytogenes Not Detected (NOT DETECT); Micrococcus Not Detected (NOT DETECT); Pan Candida Not Detected (NOT DETECT); Pan Gram-Negative Not Detected (NOT DETECT); Staphylococcus epidermidis Not Detected (NOT DETECT); Staphylococcus lugdunensis Not Detected (NOT DETECT); Staphylococcus species Detected (NOT DETECT); Streptococcus agalactiae Not Detected (NOT DETECT); Streptococcus anginosus group Not Detected (NOT DETECT); Streptococcus pneumoniae Not Detected (NOT DETECT); Streptococcus pyogenes Not Detected (NOT DETECT); Streptococcus species Not Detected (NOT DETECT); mecA Not Detected (NOT DETECT); mecC Not Detected (NOT DETECT)
== END 2023-02-28 12:18 | disposition home or self-care (01) ==
PROVIDERS: Emergency Provider Family Medicine; PCP Family Medicine
DX: R55 Syncope and collapse (principal); E13.22 Other specified diabetes mellitus with diabetic chronic kidney disease; I13.2 Hypertensive heart and chronic kidney disease with heart failure and with stage 5 chronic kidney disease, or end stage renal disease; I50.9 Heart failure, unspecified; N18.6 End stage renal disease; I25.10 Atherosclerotic heart disease of native coronary artery without angina pectoris; Z86.73 Personal history of transient ischemic attack (TIA), and cerebral infarction without residual deficits; E78.5 Hyperlipidemia, unspecified; I25.2 Old myocardial infarction; Z79.02 Long term (current) use of antithrombotics/antiplatelets; Z79.82 Long term (current) use of aspirin; Z79.4 Long term (current) use of insulin; E13.42 Other specified diabetes mellitus with diabetic polyneuropathy
CPT/HCPCS: 36415; 36416; 36600; 70450; 71045; 80051; 80053; 82140; 82330; 82805; 82962; 83605; 83690; 83735; 84484; 85025; 87040; 87077; 87150; 87186; 87205; 93005; 96374; 99285; J2310

== ENCOUNTER 2023-03-17 17:34 | Emergency (ER) | payer MEDICARE, SELFPAY ==
[2023-03-17 17:37] VITALS: BP 111/59; PULSE 66; RESP 16; TEMP 36.7; O2SAT 87; BMI 34.2
--- NOTE | 2023-03-17 17:38 | ECG_ITS ---
[facility] Test Date: 2023-03-17 Pat Name: Eliazar Hogan Department: Room: Gender: Male Paper Rewinder: : 1950 Requested By: Jac Swartz Order Number: [id number] Flor MD: Van Ramires M.D. Measurements Intervals [place] Rate: 70 P: 0 AR: 0 QRS: 0 QRSD: 113 T: 61 QT: 321 QTc: 347 Interpretive Statements ATRIAL FIBRILLATION MODERATE INTRAVENTRICULAR CONDUCTION DELAY [105+ ms QRS DURATION, 80+ ms Q/S IN V1/V2, NO Q AND 60+ ms R IN I/aVL/V5/V6] NONSPECIFIC T-WAVE ABNORMALITY Compared to ECG 02/28/2023 10:08:16 No significant changes Electronically Signed On 03-18-2023 16:59:07 DESIGN ENG by Van Ramires M.D. [id number]
--- NOTE | 2023-03-17 17:38 | XRR_ITS ---
PROCEDURE INFORMATION: Exam: XR Chest Exam date and time: 03/17/2023 5:45 PM Age: 72 years old Clinical indication: Pain; Chest pressure; Prior surgery; Surgery date: 6+ months; Surgery type: Cardiac stents; Additional info: Cxp TECHNIQUE: Imaging protocol: Radiologic exam of the chest. Views: 1 view. COMPARISON: CR XR chest 1V portable [id number] 02/28/2023 8:21 AM FINDINGS: Lungs: Bibasilar atelectasis versus minimal infiltrate. Pleural spaces: Unremarkable. No pleural effusion. No pneumothorax. Heart/Mediastinum: Cardiomegaly. Bones/joints: Unremarkable. XR/XR chest 1V portable [id number] IMPRESSION: 1. Bibasilar atelectasis versus minimal infiltrate. 2. Cardiomegaly.
--- NOTE | 2023-03-17 17:38 | W.ED.CHESTPA ---
HPI - Chest Pain General: Chief Complaint: Chest Pain Stated Complaint: chest pain Time Seen by Provider: 03/17/23 17:38 History of Present Illness: 72-year-old male presents to the emergency department via EMS personnel with complaints of chest tightness. He states he also feels like he has some all over body tingling. He does have a previous medical history of end-stage renal disease currently on dialysis on Friday and Friday. He has a history of atrial fibrillation and is on anticoagulant also. He is normally on 1.5 L of home supplemental oxygen. He states his chest tightness is a 4 out of 10 at present. His oxygen saturation on 1.5 L nasal cannula is 88%. He does endorse a cough. Associated symptoms: Reports dyspnea Review of Systems General: Reports: 10 or more systems reviewed and unremarkable except in HPI and below Card: Reports: chest pain and irregular heart rhythm Resp: Reports: dyspnea and non-productive cough PFSH ED PFSH: Medical History Acute kidney injury superimposed on CKD Anemia CAD (coronary artery disease) Cardiac enzymes elevated Carotid stenosis, bilateral Chest pain Chronic back pain Chronic kidney disease Chronic kidney disease (CKD) stage G5/A1, glomerular filtration rate (GFR) less than or equal to 15 mL/min/1.73 square meter and albuminuria creatinine ratio less than 30 mg/g Congestive 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 CVA (cerebral vascular accident) Diabetes 1.5, 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 Dyslipidemia ESRD (end stage renal disease) Essential hypertension Hemodialysis access site with arteriovenous graft History of 2019 novel coronavirus disease (COVID-19) Hypothyroidism NSTEMI (non-ST elevated myocardial infarction) KAITLYNN (obstructive sleep apnea) Paget's disease Surgical History History of esophagogastroduodenoscopy (EGD) 10 yrs ago Hx of cholecystectomy Previous back surgery S/P angioplasty with stent S/P cataract extraction S/P hemodialysis catheter insertion Family History Mother CAD (coronary artery disease) Stroke Sister Hypertension Social History Smoking and tobacco/nicotine status: never used tobacco/nicotine Alcohol intake: never Substance/Drug Use: never Household members: spouse Marital status: service: Yes branch: [employer] Current occupational status: employed 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 Vital signs reviewed as documented. No acute distress noted at present. HENMT: Normocephalic, atraumatic. Extermal ears with normal appearance without drainage. Nose without drainage, normal appearance. Mucus membranes moist. Neck is supple, No jugular venous distension, trachea is midline, no appreciable carotid bruits. No lymphadenopathy. No meningeal signs. Flexion, extension and lateral rotation is without pain. Eyes: Pupils are equal, round, reactive to light and accommodation. No scleral icterus. Extra-ocular movement are intact. Thorax is symmetrical and with equal rise and fall with respirations. Resp: Coarse breath sounds bilaterally to the bases and also diminished to the bases bilaterally. He did not appear tachypneic at present. Cardio: Irregularly irregular rhythm consistent with atrial fibrillation that is rate controlled at 70 bpm.. Positive S1, S2. 1+ bilateral lower extremity edema noted. No appreciable murmurs, rubs or gallops. GI: Abdominal exam reveals normal bowel sounds to all quadrants. No organomegaly. No obvious palpable masses noted. No hepatomegally appreciated. Soft, nontender to palpation. Extremity: Extremities are non-edematous and both femoral and pedal pulses are 2+ and equal bilaterally. Moves all extremities well, sensation in all extremities. Left forearm with dialysis shunt/fistula positive thrill and bruit noted. 1+ bilateral lower extremity edema noted Neuro: Alert and oriented x4, person, place, time and situation. Cranial nerves II through XII are grossly intact, there is no focal neurological deficits that I can appreciate at present. Motor strength in the upper and lower extremities are equal and bilateral 5/5. Psych: Cooperative, calm, normal thought process, appropriate judgment. Skin: No lesions, rashes. No gross abnormalities noted. Back: Symmetrical, no obvious deformity, No CVA tenderness Course Vital Signs: Vital signs: Vital Signs Temperature 98.0 F 03/17/23 17:37 Pulse Rate 66 03/17/23 20:07 Respiratory Rate 17 03/17/23 20:07 Blood Pressure 135/69 03/17/23 20:07 Pulse Oximetry 93 03/17/23 20:07 Oxygen Delivery Me thod Room Air 03/17/23 17:37 Oxygen Flow Rate 1.5 03/17/23 17:37 MDM - Chest Pain Medical Decision Making Physical exam completed, I will obtain a CBC, CMP, BNP, cardiac enzymes and chest x-ray as well as twelve-lead EKGs. Medical Records I reviewed the patient's medical records. Lab Data I reviewed the patient's lab results. 03/17/23 18:18 03/17/23 18:18 Radiology Impressions Chest X-Ray 03/17/23 17:38 IMPRESSION: 1. Bibasilar atelectasis versus minimal infiltrate. 2. Cardiomegaly. Laboratory Results WBC 9.33 10^3/uL (3.29-11.43) 03/17/23 18:18 RBC 3.52 10^6/uL (3.85-5.65) L 03/17/23 18:18 Hgb 9.90 g/dL (11.27-16.99) L 03/17/23 18:18 Hct 32.6 % (37-53) L 03/17/23 18:18 MCV 92.6 fl (82-101) 03/17/23 18:18 MCH 28.1 pg (27-33) 03/17/23 18:18 MCHC 30.4 g/dL (30-55) 03/17/23 18:18 RDW 15.2 % (12.1-15.1) H 03/17/23 18:18 Plt Count 283 10^3/cmm (157-399) 03/17/23 18:18 MPV 9.5 fL (7.4-10.4) 03/17/23 18:18 Neut % (Auto) 72.9 % 03/17/23 18:18 Lymph % (Auto) 14.3 % 03/17/23 18:18 [place] % (Auto) 8.1 % 03/17/23 18:18 Eos % (Auto) 3.4 % 03/17/23 18:18 Baso % (Auto) 0.9 % 03/17/23 18:18 Neut # (Auto) 6.80 10^3/uL (1.8-7.7) 03/17/23 18:18 Lymph # (Auto) 1.3 10^3/uL (0.8-4.8) 03/17/23 18:18 [place] # (Auto) 0.8 10^3/uL (0.2-0.9) 03/17/23 18:18 Eos # (Auto) 0.3 10^3/uL (0.0-0.8) 03/17/23 18:18 Baso # (Auto) 0.1 10^3/uL (0.0-0.1) 03/17/23 18:18 Nucleated RBC % (auto) 0 % 03/17/23 18:18 Nucleated RBCs # 0.0 /100WBC 03/17/23 18:18 PT 14.90 SECONDS (12.1-14.9) 03/17/23 18:18 INR 1.13 (0.8-1.2) 03/17/23 18:18 APTT 34.4 SECONDS (23.9-36.7) 03/17/23 18:18 Sodium 131 mmol/L (136-145) L 03/17/23 18:18 Potassium 4.6 mmol/L (3.5-5.1) 03/17/23 18:18 Chloride 90 mmol/L (98-107) L 03/17/23 18:18 Carbon Dioxide 25 mmol/L (22-29) 03/17/23 18:18 Anion Gap 20.6 (5-19) H 03/17/23 18:18 BUN 31 mg/dL (8-23) H 03/17/23 18:18 Creatinine 6.0 mg/dL (0.7-1.2) H* 03/17/23 18:18 GFR Calculation Not Reportable 03/17/23 18:18 Glucose 169 mg/dL (65-115) H 03/17/23 18:18 Calculated Osmolality 282 mOsm/kg (285-295) L 03/17/23 18:18 Calcium 9.4 mg/dL (8.5-10.5) 03/17/23 18:18 Total Bilirubin 0.4 mg/dL (0.15-1.2) 03/17/23 18:18 AST 8 U/L (0-40) 03/17/23 18:18 ALT < 5 U/L (0-41) 03/17/23 18:18 Alkaline Phosphatase 138 U/L (40-130) H 03/17/23 18:18 Troponin T Baseline 129 ng/L (0-15) H* 03/17/23 18:18 Troponin T 120 Minute 126.2 ng/L (0-15) H 03/17/23 20:33 Delta Troponin T -2.8 ABS# (0-10) L 03/17/23 20:33 NT-Pro-B Natriuret Pep 31868 pg/mL (0-125) H 03/17/23 18:18 Total Protein 7.0 g/dL (6.6-8.7) 03/17/23 18:18 Albumin 3.4 g/dL (3.5-5.2) L 03/17/23 18:18 Globulin 3.6 g/dL (1.3-4.6) 03/17/23 18:18 All radiology interpretation(s) finalized by discharge Discharge Plan Discharge Patient Disposition: Home Clinical Impression: Atypical chest pain, Dialysis patient Condition: Stable Prescriptions: No Action pantoprazole 40 mg tablet,delayed release (DR/EC) 40 mg PO QAM terazosin 10 mg capsule 10 mg PO BID acetaminophen [Tylenol Extra Strength] 500 mg tablet 1,000 mg PO Q6H PRN (Reason: Pain) Novolog FlexPen U-100 Insulin 100 unit/mL (3 mL) insulin pen See Rx Instructions .ROUTE .COMPLEX Qty: 15 0RF Rx Instructions: Before or right after meals prn. SLIDING SCALE: FOR BS 150-200=0 UNITS, 201-250= 2 UNITS, 251-300= 4 UNITS, 301-350= 6 UNITS, 351-400= 8 UNITS. (DME) Diabetic Shoes See Rx Instructions .ROUTE .MEDSUPPLY Qty: 1 0RF Rx Instructions: As directed [facility] [employer] with 3 pairs of inserts (DME) Diabetic Shoes See Rx Instructions .ROUTE .MEDSUPPLY Qty: 1 0RF Rx Instructions: As directed By [facility] [employer] [facility] with 3 pairs of inserts magnesium oxide 400 mg magnesium capsule 400 mg PO BEDTIME rosuvastatin [Crestor] 10 mg tablet 10 mg PO BEDTIME sevelamer carbonate 800 mg tablet 1,600 mg PO BID cholecalciferol (vitamin D3) 50 mcg (2,000 unit) capsule 50 mcg PO BEDTIME omega 0-rim-cbt-fish oil [Fish Oil] 1,000 mg (120 mg-180 mg) capsule 2 cap PO BID (DME) FreeStyle Inocencia 14 Day Sensor Kit See Rx Instructions .Route Qty: 1 0RF Rx Instructions: As directed (DME) FreeStyle Inocencia 14 Day [place] Misc See Rx Instructions .Route Qty: 1 0RF Rx Instructions: As directed amlodipine 10 mg tablet 10 mg PO DAILY allopurinol 300 mg tablet 300 mg PO DAILY escitalopram oxalate [Lexapro] 20 mg tablet 20 mg PO DAILY Fish Oil 100-160-1,000 mg capsule PO (DME) BIPAP and supplies See Rx Instructions .Route .MEDSUPPLY Qty: 1 0RF Rx Instructions: with 2L of oxygen when in use levothyroxine 25 mcg Tablet 25 mcg PO QAM clopidogrel 75 mg tablet 75 mg PO BEDTIME Hold Instructions: Resume on 07/10/21. aspirin 81 mg tablet,delayed release (DR/EC) 81 mg PO QAM Hold Instructions: Resume on 07/07/21. cetirizine [Zyrtec] 10 mg Tablet 10 mg PO BID Lexapro 20 mg tablet 20 mg PO QAM isosorbide mononitrate 60 mg Tablet Extended Release 24 Hr 60 mg PO BID Qty: 60 0RF furosemide [Lasix] 80 mg Tablet 80 mg PO BID hydralazine 10 mg tablet 10 mg PO TID nitroglycerin [Nitrostat] 0.4 mg Tablet, Sublingual 0.4 mg SUBLINGUAL Q5M PRN (Reason: Chest Pain) Rx Instructions: do not exceed 3 doses per episode ranolazine 500 mg tablet extended release 12 hr 500 mg PO BID Qty: 14 0RF carvedilol 25 mg Tablet 12.5 mg PO BID Levemir FlexPen 100 unit/mL (3 mL) Insulin Pen 20 unit SUBCUT BEDTIME meclizine 50 mg tablet 50 mg PO TID PRN (Reason: dizziness) Qty: 20 0RF folic acid 400 mcg Tablet 0.4 mg PO DAILY tuberculin PPD 5 tub. unit /0.1 mL Solution 0.1 tb unit INTRADERMAL Q14D Zofran 4 mg Tablet 4 mg PO Q6H PRN (Reason: Nausea) promethazine 25 mg/mL Solution 25 mg IM Q8H PRN (Reason: Nausea And Vomiting) Colace 100 mg Capsule 100 mg PO BID Discharge Orders: Discharge ED (Routine); Ordered 03/17/23 Ordered By: Jac Swartz Referrals: Carlee Carreon DO [Primary Care Provider] - Discharge Diet: Advance as tolerated Discharge Activity: Resume usual activity Patient Instructions: Opioid Safety, Pain Management Activity Restrictions/Additional Instructions: Activity Restrictions/Additional Instructions: Thank you for choosing [facility] for your healthcare needs today. Please realize that you were seen in the Emergency Department and that we are providing you with an emergency medical screening exam and this may not be complete and all inclusive of all the testing and or medical work-up that you may need to determine your ailment or severity of your illness. It is very important that you follow-up as instructed with your Primary care provider or Specialist for additional evaluation and to discuss your medical treatment plan. You may return to the Emergency Department should you have concerns or if your condition changes or worsens in any way. Coding Level of Care Code ED Orthopedic Specialist for Les Fuentes
--- NOTE | 2023-03-17 18:13 | PC.NURSE ---
PT VEBILIZED THAT HE TOOK 4 ASPIRIN AND 2 NITRO AT THE [facility] BEFORE ARRIVAL TO ER
[2023-03-17 18:17] VITALS: BP 149/117; PULSE 113; RESP 21; O2SAT 98
[2023-03-17 18:39] LABS: Basophils # 0.1 10^3/uL (0.0-0.1); Basophils % 0.9 %; Eosinophils # 0.3 10^3/uL (0.0-0.8); Eosinophils % 3.4 %; Hematocrit 32.6 % (37-53); Lymphocytes # 1.3 10^3/uL (0.8-4.8); Lymphocytes % 14.3 %; Mean Corpuscular HGB Conc 30.4 g/dL (30-55); Mean Corpuscular Hemoglobin 28.1 pg (27-33); Mean Corpuscular Volume 92.6 fl (82-101); Mean Platelet Volume 9.5 fL (7.4-10.4); Monocytes # 0.8 10^3/uL (0.2-0.9); Monocytes % 8.1 %; Neutrophils % 72.9 %; Nucleated Red Blood Cells % 0 %; Platelet Count 283 10^3/cmm (157-399); Red Blood Count 3.52 10^6/uL (3.85-5.65); Red Cell Distribution Width 15.2 % (12.1-15.1); White Blood Count 9.33 10^3/uL (3.29-11.43)
[2023-03-17 19:00] LABS: INR 1.13 (0.8-1.2)
[2023-03-17 19:01] LABS: Partial Thromboplastin Time 34.4 SECONDS (23.9-36.7)
[2023-03-17 19:20] LABS: Troponin(5th) Baseline 129 ng/L (0-15)
[2023-03-17 19:31] LABS: Alanine Aminotransferase < 5 U/L (0-41); Albumin Level 3.4 g/dL (3.5-5.2); Alkaline Phosphatase 138 U/L (40-130); Aspartate Amino Transferase 8 U/L (0-40); Blood Urea Nitrogen 31 mg/dL (8-23); Calcium 9.4 mg/dL (8.5-10.5); Carbon Dioxide 25 mmol/L (22-29); Chloride 90 mmol/L (98-107); Globulin 3.6 g/dL (1.3-4.6); Glucose 169 mg/dL (65-115); Osmolality Calculated 282 mOsm/kg (285-295); Sodium 131 mmol/L (136-145); Total Bilirubin 0.4 mg/dL (0.15-1.2)
[2023-03-17 19:38] LABS: Anion Gap 20.6 (5-19); Potassium 4.6 mmol/L (3.5-5.1)
--- NOTE | 2023-03-17 19:38 | ECG_ITS ---
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 Measurements Intervals [place] Rate: 66 P: 0 [place]: 0 QRS: 8 QRSD: 109 T: 59 QT: 424 QTc: 446 Interpretive Statements ATRIAL FIBRILLATION MODERATE INTRAVENTRICULAR CONDUCTION DELAY [105+ ms QRS DURATION, 80+ ms Q/S IN V1/V2, NO Q AND 60+ ms R IN I/aVL/V5/V6] NONSPECIFIC T-WAVE ABNORMALITY Compared to ECG 03/17/2023 17:40:43 No significant changes Electronically Signed On 03-18-2023 17:19:51 WINDOW DECORATOR by Van Ramires M.D. [email or web address]
[2023-03-17 19:54] VITALS: BP 122/70; PULSE 69; RESP 19; O2SAT 94
[2023-03-17 20:07] VITALS: BP 135/69; PULSE 66; RESP 17; O2SAT 93
[2023-03-17 21:06] LABS: Troponin 5 2HR Delta -2.8 ABS# (0-10)
[2023-03-17 21:08] LABS: Troponin 5 2HR 126.2 ng/L (0-15)
== END 2023-03-17 21:50 | disposition home or self-care (01) ==
PROVIDERS: Emergency Provider Internal Medicine; PCP Family Medicine
DX: R07.89 Other chest pain (principal); Z99.2 Dependence on renal dialysis; Z79.02 Long term (current) use of antithrombotics/antiplatelets; Z79.82 Long term (current) use of aspirin; Z79.4 Long term (current) use of insulin; I25.10 Atherosclerotic heart disease of native coronary artery without angina pectoris; E13.22 Other specified diabetes mellitus with diabetic chronic kidney disease; I13.2 Hypertensive heart and chronic kidney disease with heart failure and with stage 5 chronic kidney disease, or end stage renal disease; I50.9 Heart failure, unspecified; N18.6 End stage renal disease; Z86.73 Personal history of transient ischemic attack (TIA), and cerebral infarction without residual deficits; E13.42 Other specified diabetes mellitus with diabetic polyneuropathy; E78.5 Hyperlipidemia, unspecified; I25.2 Old myocardial infarction
CPT/HCPCS: 36415; 71045; 80053; 83880; 84484; 85025; 85610; 85730; 93005; 99285

== ENCOUNTER → 2023-03-24 12:04 | Outpatient (BNVA) | payer MEDICARE, SELFPAY | PROVIDERS: PCP Family Medicine; Visit Provider Internal Medicine Cardiovascular Disease | DX: I12.0 Hypertensive chronic kidney disease with stage 5 chronic kidney disease or end stage renal disease (principal); E11.22 Type 2 diabetes mellitus with diabetic chronic kidney disease; N18.6 End stage renal disease; Z79.4 Long term (current) use of insulin; Z99.2 Dependence on renal dialysis; R07.89 Other chest pain; H81.13 Benign paroxysmal vertigo, bilateral; I65.23 Occlusion and stenosis of bilateral carotid arteries; I25.110 Atherosclerotic heart disease of native coronary artery with unstable angina pectoris; G47.33 Obstructive sleep apnea (adult) (pediatric); I25.2 Old myocardial infarction | CPT/HCPCS: 99214 ==

== ENCOUNTER 2023-04-04 10:47 | Outpatient (CLI) | payer MEDICARE, SELFPAY ==
--- NOTE | 2023-04-04 10:49 | USCV_ITS ---
Eliazar Hogan Age: 72 Gender: M : 1950 Exam Date: 04/04/2023 10:57 Ordering Phys: Glynn Taylor MD (Andy) ([email or web address] [place]) Technologist: CT Exam Location: [facility] [place] Indication: stenosis Risk Factors: Previous Vascular Surgery: Right Brachial BP: / Left Brachial BP: / Right Left Velocity (cm/s) Spectral Plaque Velocity (cm/s) Spectral Plaque Syst/Diast Broadening Syst/Diast Broadening 69.60/ 10.10 Prox CCA 89.40 / 10.30 79.70/ 14.70 Mid CCA 81.40 / 12.60 71.50/ 14.70 Distal CCA 80.20 / 13.80 76.00/ 18.50 Prox ICA 158.40/ 26.70 120.00/13.70 Mid ICA 98.60 / 17.20 50.00/ 14.40 Distal ICA 85.90 / 20.60 183.70 ECA 183.50 1.51 ICA/CCA 1.77 Antegrade Vertebral Antegrade 35.40/ 10.20 cm/s 46.90/ 14.90 cm/s Tri Subclavian Tri 124.9 150.3 0 0 CONCLUSIONS Right ICA stenosis <50%. Moderate calcified atheromatous plaque right carotid bulb/ICA. Left ICA stenosis 50-69%. Moderate calcified atheromatous plaque left carotid bulb/ICA. Intimal thickening in the common carotid arteries and internal carotid arteries bilaterally. Normal antegrade Doppler flow noted in the right vertebral artery. Normal antegrade Doppler flow noted in the left vertebral artery. David Gomez MD (Electronically Signed) Final Date: 04 April 2023 16:15 S
== END 2023-04-04 10:48 | disposition home or self-care (01) ==
LOC: RAD 10:47
PROVIDERS: PCP Family Medicine; Visit Provider Thoracic Surgery (Cardiothoracic Vascular Surgery)
DX: I65.23 Occlusion and stenosis of bilateral carotid arteries (principal)
CPT/HCPCS: 93880

== ENCOUNTER → 2023-04-08 15:30 | Outpatient (BNVA) | payer MEDICARE, SELFPAY | PROVIDERS: PCP Family Medicine; Visit Provider Family Medicine | DX: E13.9 Other specified diabetes mellitus without complications (principal); E03.9 Hypothyroidism, unspecified | CPT/HCPCS: 83036; 84443 ==

== ENCOUNTER → 2023-04-24 14:51 | Outpatient (BNVA) | payer MEDICARE, SELFPAY | PROVIDERS: PCP Family Medicine; Visit Provider Thoracic Surgery (Cardiothoracic Vascular Surgery) | DX: I65.23 Occlusion and stenosis of bilateral carotid arteries (principal); I13.2 Hypertensive heart and chronic kidney disease with heart failure and with stage 5 chronic kidney disease, or end stage renal disease; E13.22 Other specified diabetes mellitus with diabetic chronic kidney disease; N18.6 End stage renal disease; I50.9 Heart failure, unspecified; Z99.2 Dependence on renal dialysis; Z79.4 Long term (current) use of insulin | CPT/HCPCS: 99213 ==

== ENCOUNTER → 2023-04-30 10:01 | Outpatient (BNVA) | payer MEDICARE, SELFPAY | PROVIDERS: PCP Family Medicine; Visit Provider Dermatology | DX: D48.5 Neoplasm of uncertain behavior of skin (principal) | CPT/HCPCS: 11604; 12034 ==

== ENCOUNTER → 2023-05-14 09:58 | Outpatient (BNVA) | payer MEDICARE, SELFPAY | PROVIDERS: PCP Family Medicine; Visit Provider Dermatology | DX: Z48.02 Encounter for removal of sutures (principal) | CPT/HCPCS: 99212 ==

== ENCOUNTER → 2023-05-20 07:59 | Outpatient (BNVA) | payer MEDICARE, SELFPAY | PROVIDERS: PCP Family Medicine; Visit Provider Podiatrist Foot & Ankle Surgery | DX: E11.22 Type 2 diabetes mellitus with diabetic chronic kidney disease (principal); N18.5 Chronic kidney disease, stage 5; I73.9 Peripheral vascular disease, unspecified; E11.69 Type 2 diabetes mellitus with other specified complication; M20.41 Other hammer toe(s) (acquired), right foot; L60.3 Nail dystrophy; M20.42 Other hammer toe(s) (acquired), left foot; Z79.4 Long term (current) use of insulin | CPT/HCPCS: 11721 ==

== ENCOUNTER → 2023-06-20 12:20 | Outpatient (BNVA) | payer MEDICARE, SELFPAY | PROVIDERS: PCP Family Medicine; Visit Provider Family Medicine | DX: E11.22 Type 2 diabetes mellitus with diabetic chronic kidney disease (principal); N18.6 End stage renal disease; Z79.4 Long term (current) use of insulin; Z99.2 Dependence on renal dialysis; Z12.5 Encounter for screening for malignant neoplasm of prostate | CPT/HCPCS: 80061; G0103 ==

== ENCOUNTER → 2023-07-29 07:22 | Outpatient (BNVA) | payer MEDICARE, SELFPAY | PROVIDERS: PCP Family Medicine; Visit Provider Podiatrist Foot & Ankle Surgery | DX: N18.5 Chronic kidney disease, stage 5 (principal); E11.69 Type 2 diabetes mellitus with other specified complication; I73.9 Peripheral vascular disease, unspecified; M20.41 Other hammer toe(s) (acquired), right foot; M20.42 Other hammer toe(s) (acquired), left foot; L60.3 Nail dystrophy; Z79.4 Long term (current) use of insulin | CPT/HCPCS: 11721 ==

== ENCOUNTER → 2023-08-04 11:32 | Outpatient (BNVA) | payer MEDICARE, SELFPAY | PROVIDERS: PCP Family Medicine; Visit Provider Family Medicine | DX: E11.22 Type 2 diabetes mellitus with diabetic chronic kidney disease (principal); N18.6 End stage renal disease; Z79.4 Long term (current) use of insulin; Z99.2 Dependence on renal dialysis | CPT/HCPCS: 83036 ==

== ENCOUNTER 2023-09-24 08:57 | Outpatient (CLI) | payer MEDICARE, SELFPAY ==
--- NOTE | 2023-09-24 10:00 | USCV_ITS ---
Eliazar Hogan Age: 73 Gender: M : 1950 Exam Date: 09/24/2023 09:04 Ordering Phys: Glynn Taylor MD (Andy) ([email or web address] [place]) Technologist: CT Exam Location: [facility] – [place] Indication: Risk Factors: Previous Vascular Surgery: Right Brachial BP: / Left Brachial BP: / Right Left Velocity (cm/s) Spectral Plaque Velocity (cm/s) Spectral Plaque Syst/Diast Broadening Syst/Diast Broadening 69.40/ 10.40 Prox CCA 66.60 / 10.20 67.70/ 13.20 Mid CCA 73.00 / 14.00 87.10/ 14.40 Distal CCA 77.10 / 16.10 53.20/ 11.50 Prox ICA 137.30/ 19.40 79.60/ 13.20 Mid ICA 130.80/ 21.60 70.90/ 20.70 Distal ICA 78.40 / 22.10 175.00 ECA 93.40 0.90 ICA/CCA 1.80 Antegrade Vertebral Antegrade 47.60/ 14.60 cm/s 46.10/ 10.70 cm/s Tri Subclavian Tri 138.6 22.90 0 FINDINGS Comparison:. 04/04/23 Mild elevation of systolic and diastolic velocities. Diffuse bilateral scattered calcified plaque and intimal thickening throughout the common carotid arteries and extending through the bifurcation. Left ICA velocity may be underestimated. The amount of plaque suggest more stensois than 50%. CONCLUSIONS Bilateral ICA stenosis less than 50%. Extensive plaque, suspect left ICA velocity may be underestimated. Consider follow up CTA. Prior CTA was also done on 10/09/22. Dr. Mita Kraus DO (Electronically Signed) Final Date: 24 September 2023 16:02 S
== END 2023-09-24 08:58 | disposition home or self-care (01) ==
LOC: RAD 08:57
PROVIDERS: PCP Family Medicine; Visit Provider Thoracic Surgery (Cardiothoracic Vascular Surgery)
DX: I65.23 Occlusion and stenosis of bilateral carotid arteries (principal)
CPT/HCPCS: 93880

== ENCOUNTER → 2023-10-10 10:39 | Outpatient (BNVA) | payer MEDICARE, SELFPAY | PROVIDERS: PCP Family Medicine; Visit Provider Internal Medicine Cardiovascular Disease | DX: I25.2 Old myocardial infarction (principal); I13.2 Hypertensive heart and chronic kidney disease with heart failure and with stage 5 chronic kidney disease, or end stage renal disease; E13.22 Other specified diabetes mellitus with diabetic chronic kidney disease; N18.6 End stage renal disease; I50.9 Heart failure, unspecified; Z79.4 Long term (current) use of insulin; I65.23 Occlusion and stenosis of bilateral carotid arteries; E78.5 Hyperlipidemia, unspecified; R06.00 Dyspnea, unspecified; Z99.2 Dependence on renal dialysis; I25.110 Atherosclerotic heart disease of native coronary artery with unstable angina pectoris; D64.9 Anemia, unspecified; G47.33 Obstructive sleep apnea (adult) (pediatric) | CPT/HCPCS: 99214 ==

== ENCOUNTER → 2023-10-29 09:30 | Outpatient (BNVA) | payer MEDICARE, SELFPAY | PROVIDERS: PCP Family Medicine; Visit Provider Podiatrist Foot & Ankle Surgery | DX: N18.5 Chronic kidney disease, stage 5 (principal); I73.9 Peripheral vascular disease, unspecified; M20.41 Other hammer toe(s) (acquired), right foot; M20.42 Other hammer toe(s) (acquired), left foot; L60.3 Nail dystrophy; E11.22 Type 2 diabetes mellitus with diabetic chronic kidney disease; Z79.4 Long term (current) use of insulin | CPT/HCPCS: 11721 ==

== ENCOUNTER → 2024-02-04 12:20 | Outpatient (BNVA) | payer MEDICARE, SELFPAY | PROVIDERS: PCP Family Medicine; Visit Provider Podiatrist Foot & Ankle Surgery | DX: N18.5 Chronic kidney disease, stage 5 (principal); I73.9 Peripheral vascular disease, unspecified; L60.3 Nail dystrophy; E11.29 Type 2 diabetes mellitus with other diabetic kidney complication; D48.5 Neoplasm of uncertain behavior of skin; L57.0 Actinic keratosis; L82.1 Other seborrheic keratosis; L81.4 Other melanin hyperpigmentation; D18.01 Hemangioma of skin and subcutaneous tissue; Z79.4 Long term (current) use of insulin; L98.8 Other specified disorders of the skin and subcutaneous tissue; Z86.006 Personal history of melanoma in-situ | CPT/HCPCS: 11102; 11721; 17000; 99213 ==

== ENCOUNTER → 2024-03-26 10:18 | Outpatient (BNVA) | payer MEDICARE, SELFPAY | PROVIDERS: PCP Family Medicine; Visit Provider Internal Medicine Cardiovascular Disease | DX: I25.10 Atherosclerotic heart disease of native coronary artery without angina pectoris (principal); I25.2 Old myocardial infarction; I65.23 Occlusion and stenosis of bilateral carotid arteries; I13.2 Hypertensive heart and chronic kidney disease with heart failure and with stage 5 chronic kidney disease, or end stage renal disease; E13.22 Other specified diabetes mellitus with diabetic chronic kidney disease; N18.6 End stage renal disease; I50.9 Heart failure, unspecified; Z99.2 Dependence on renal dialysis; Z79.4 Long term (current) use of insulin; E78.5 Hyperlipidemia, unspecified; I48.91 Unspecified atrial fibrillation | CPT/HCPCS: 99213 ==

== ENCOUNTER 2024-04-16 08:49 | Outpatient (CLI) | payer MEDICARE, SELFPAY ==
--- NOTE | 2024-04-16 12:45 | USCV_ITS ---
Eliazar Hogan Age: 73 Gender: M : 1950 Exam Date: 04/16/2024 09:09 Ordering Phys: Сергей Thapa MD ([email or web address]) Technologist: CT [place] [facility] [place]ication: stenosis Risk Factors: Previous Vascular Surgery: Right Brachial BP: / Left Brachial BP: / Right Left Velocity (cm/s) Spectral Plaque Velocity (cm/s) Spectral Plaque Syst/Diast Broadening Syst/Diast Broadening 65.50/ 7.90 Prox CCA 79.80 / 11.10 68.00/ 11.70 Mid CCA 67.10 / 11.70 63.10/ 11.30 Distal CCA 61.00 / 10.20 77.30/ 16.10 Prox ICA 129.80/ 43.40 58.10/ 14.50 Mid ICA 78.90 / 23.00 59.60/ 13.30 Distal ICA 57.90 / 16.00 123.10 ECA 143.50 1.20 ICA/CCA 2.10 Antegrade Vertebral Antegrade 37.70/ 10.80 cm/s 36.60/ 8.80 cm/s Tri Subclavian Tri 104.3 124.2 0 0 FINDINGS Comparison:. 09/24/23, CTA 10/09/22 Diffuse bilateral scattered calcified plaque and intimal thickening throughout the common carotid arteries and extending through the bifurcation. Greater plaque left carotid artery. Antegrade vertebral arteries. CONCLUSIONS Left ICA stenosis 50-69%. Right ICA stenosis < 50%. Moderate diffuse carotid plaque, left greater than right. Dr. Mita Kraus DO (Electronically Signed) Final Date: 16 April 2024 10:40 S
== END 2024-04-16 08:50 | disposition home or self-care (01) ==
LOC: RAD 08:51
PROVIDERS: PCP Family Medicine; Visit Provider Internal Medicine Cardiovascular Disease
DX: I65.23 Occlusion and stenosis of bilateral carotid arteries (principal)
CPT/HCPCS: 93880

== ENCOUNTER 2024-04-27 02:05 | Emergency (ER) | payer MEDICARE, SELFPAY ==
[2024-04-27 02:05] VITALS: BP 172/82; PULSE 92; RESP 18; TEMP 37.2; O2SAT 91; BMI 37.0
--- NOTE | 2024-04-27 02:16 | XRR_ITS ---
PROCEDURE INFORMATION: Exam: XR Abdomen Exam date and time: 04/27/2024 2:51 AM Age: 74 years old Clinical indication: Abdominal pain; Generalized; Prior surgery; Surgery date: 6+ months; Surgery type: Choley, back SX, stents TECHNIQUE: Imaging protocol: Radiologic exam of the abdomen. Views: 2 Views. Upright and supine views. COMPARISON: CT abdomen pelvis wo con [id number] 02/18/2023 7:14 PM FINDINGS: Lungs: The lungs are hyperinflated, but likely clear. Heart/Mediastinum: The heart is enlarged. Gastrointestinal tract: Limited evaluation of the bowel gas pattern due to a paucity of bowel gas. Intraperitoneal space: Normal. No free air. Bones/joints: Postoperative changes from posterior fusion involves the lower thoracic and lumbar spine. Diffuse marginal osteophyte formation. Degenerative changes involve the right shoulder. XR/XR acute abdomen series [id number] IMPRESSION: No acute abnormality.
--- NOTE | 2024-04-27 02:18 | ED_ITS ---
HPI - Abdominal Pain 2 General: Chief Complaint: Abdominal Pain Stated Complaint: ABD PAIN Time Seen by Provider: 04/27/24 02:12 History of Present Illness: 74-year-old man with a history of end-st age renal disease on dialysis, chronic hypoxemic respiratory failure on nighttime oxygen, coronary artery disease, stroke, hyperlipidemia, hypertension, diabetes, and congestive heart failure who presents to the emergency room by ambulance with abdominal pain and shortness of breath. He says he has been feeling bad since Friday, 2 days ago. Symptoms became worse tonight. Abdominal pain is upper and more to the left and central. He has had increased cough. He was not on his oxygen when EMS arrived and was in the 80s per report. No chest pain. He has not missed dialysis. He is supposed to go to dialysis this morning. No altered mental status. No focal motor deficits. He had some nausea but no vomiting. Related Data Home Medications Medication Instructions Recorded Confirmed acetaminophen 500 mg tablet 1,000 mg PO Q6H PRN Pain 05/05/19 03/26/24 (Tylenol Extra Strength) pantoprazole 40 mg tablet,delayed 40 mg PO QAM 05/05/19 03/26/24 release terazosin 10 mg capsule 10 mg PO BID 05/05/19 03/26/24 aspirin 81 mg tablet,delayed 81 mg PO QAM 09/01/20 03/26/24 release clopidogrel 75 mg tablet 75 mg PO BEDTIME 09/01/20 03/26/24 levothyroxine 25 mcg tablet 25 mcg PO QAM 11/09/20 03/26/24 cetirizine 10 mg tablet (Zyrtec) 10 mg PO BID 11/14/20 03/26/24 rosuvastatin 10 mg tablet (Crestor) 10 mg PO BEDTIME 09/20/21 03/26/24 nitroglycerin 0.4 mg sublingual 0.4 mg sublingual Q5M PRN Chest 09/29/21 03/26/24 tablet (Nitrostat) Pain sevelamer carbonate 800 mg tablet 1,600 mg PO BID 02/13/22 03/26/24 furosemide 80 mg tablet (Lasix) 80 mg PO BID 11/14/22 03/26/24 carvedilol 25 mg tablet 12.5 mg PO BID 02/19/23 03/26/24 docusate sodium 100 mg capsule 100 mg PO BID 02/28/23 03/26/24 (Colace) folic acid 400 mcg tablet 0.4 mg PO DAILY 02/28/23 03/26/24 tuberculin PPD 5 tub. unit/0.1 mL 0.1 tb unit intradermal Q14D 02/28/23 02/04/24 intradermal injection solution allopurinol 300 mg tablet 300 mg PO DAILY 03/17/23 03/26/24 amlodipine 10 mg tablet 10 mg PO DAILY 03/17/23 03/26/24 escitalopram oxalate 20 mg tablet 20 mg PO DAILY 03/17/23 03/26/24 (Lexapro) hydralazine 10 mg tablet 10 mg PO BID 10/10/23 03/26/24 cholecalciferol (vitamin D3) 50 50 mcg PO DAILY 03/26/24 03/26/24 mcg (2,000 unit) capsule irbesartan 300 mg tablet 300 mg PO DAILY 03/26/24 03/26/24 Previous Rx's Medication Instructions Recorded insulin aspart U-100 100 unit/mL See Rx Instructions .Route 08/22/20 (3 mL) subcutaneous pen (Novolog .COMPLEX #15 mL FlexPen U-100 Insulin aspart) Diabetic Shoes #1 ea 09/13/20 Diabetic Shoes #1 ea 10/25/20 BIPAP and supplies #1 ea 04/09/21 isosorbide mononitrate 60 mg 60 mg PO BID #60 tabs 08/20/22 tablet,extended release 24 hr flash glucose scanning reader #1 ea 01/31/23 (FreeStyle Inocencia 14 Day [place]) flash glucose sensor (FreeStyle #1 ea 01/31/23 Inocencia 14 Day Sensor kit) insulin detemir U-100 100 unit/mL 24 unit (0.24 mL) SUBCUT BEDTIME 08/05/23 (3 mL) subcutaneous pen (Levemir #15 mL FlexPen) Allergies Allergy/AdvReac Type Severity Reaction Status Date / Time chicken derived Allergy Unknown ADR-Nausea Verified 04/27/24 02:12 morphine AdvReac Mild dizzy & Verified 04/27/24 02:12 nauseous Review of Systems 2 Narrative: Constitutional symptoms: Negative except as documented in HPI. Skin symptoms: Negative except as documented in HPI. Eye symptoms: Negative except as documented in HPI. ENMT symptoms: Negative except as documented in HPI. Respiratory symptoms: Negative except as documented in HPI. Cardiovascular symptoms: Negative except as documented in HPI. Gastrointestinal symptoms: Negative except as documented in HPI. Genitourinary symptoms: Negative except as documented in HPI. Musculoskeletal symptoms: Negative except as documented in HPI. Neurologic symptoms: Negative except as documented in HPI. Psychiatric symptoms: Negative except as documented in HPI. Endocrine symptoms: Negative except as documented in HPI. PFSH ED 2 PFSH: Medical History Hypothyroidism Hemodialysis access site with arteriovenous graft Paget's disease Chronic kidney disease Chest pain NSTEMI (non-ST elevated myocardial infarction) Cardiac enzymes elevated Diabetes mellitus with diabetic polyneuropathy ESRD (end stage renal disease) CAD (coronary artery disease) Chronic kidney disease (CKD) stage G5/A1, glomerular filtration rate (GFR) less than or equal to 15 mL/min/1.73 square meter and albuminuria creatinine ratio less than 30 mg/g History of 2019 novel coronavirus disease (COVID-19) Acute kidney injury superimposed on CKD Congestive 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 Anemia CVA (cerebral vascular accident) Dyslipidemia Carotid stenosis, bilateral Essential hypertension Diabetes 1.5, managed as type 2 Chronic back pain KAITYLNN (obstructive sleep apnea) Surgical History History of esophagogastroduodenoscopy (EGD) 10 yrs ago Hx of cholecystectomy S/P hemodialysis catheter insertion S/P angioplasty with stent Previous back surgery S/P cataract extraction Family History Mother CAD (coronary artery disease) Stroke Sister Hypertension Social History Smoking and tobacco/nicotine status: never used tobacco/nicotine Alcohol intake: never Substance/Drug Use: never Household members: spouse Marital status: service: Yes branch: [employer] Current occupational status: employed Current occupation: [employer] Current gender identity: Male Physical Exam 2 Narrative: EXAM NARRATIVE: General: Alert, no acute distress. Skin: Warm, dry. Head: Normocephalic, atraumatic. Neck: Supple, trachea midline. Eye: Extraocular movements are intact. Ears, nose, mouth and throat: mucosa moist. Cardiovascular: Regular, Normal peripheral perfusion. Respiratory: Lungs are clear to auscultation, respirations are non-labored, breath sounds are equal, Symmetrical chest wall expansion. Gastrointestinal: Soft, tenderness to palpation in the upper abdomen, primarily left upper quadrant and epigastric area, Non distended Musculoskeletal: Normal ROM, no deformity. Neurological: Alert and oriented, No focal neurological deficit observed. Psychiatric: Cooperative, appropriate mood & affect. Course 2 Vital Signs: Vital signs: Vital Signs Temperature 98.9 F 04/27/24 02:05 Pulse Rate 84 04/27/24 04:32 Respiratory Rate 18 04/27/24 04:32 Blood Pressure 129/77 04/27/24 04:32 Pulse Oximetry 92 04/27/24 04:32 Oxygen Delivery Me thod Nasal Cannula 04/27/24 04:32 Oxygen Flow Rate 3 04/27/24 04:32 MDM - Abdominal Pain Medical Decision Making Differential diagnosis for patient with shortness of breath includes but is not limited to and based on the above HPI, review of systems and physical exam: Pneumonia. Bronchitis. Asthma or COPD with acute exacerbation. Acute coronary syndrome / HI. Pulmonary embolism. Anxiety. Congestive heart failure. Viral infections including influenza and Covid-19. Atrial fibrillation. Anxiety. Pleural effusion. Pneumothorax. Also workup for sources of abdominal pain. Orders placed to evaluate differential diagnosis based on the above differential, HPI and physical exam Lab Review: Laboratory results were reviewed and interpreted by myself the emergency room physician. Mild leukocytosis. Stable anemia. BUN and creatinine are 48 7.1 with potassium of 4.8 which would be expected in this end-stage renal patient. proBNP is elevated. Over his baseline. CT of the chest abdomen pelvis: Cardiomegaly with some mild pulmonary edema. Patient is scheduled for dialysis today and has oxygen at home. Dialysis is likely going to be the solution for this issue. No findings to explain his abdominal pain. This was reviewed and interpreted by myself the emergency room physician. I also reviewed the radiology report. I reviewed the patient's medical record. Reexamination: Patient has remained stable. Oxygen saturations in the 90s on 2 L nasal cannula. He has dialysis this morning. No altered mental status. No focal motor deficits. Assessment and plan: Shortness of breath End-stage renal disease Chronic hypoxemic respiratory failure Abdominal pain ?Plan for dialysis today. Patient has oxygen. - Discharged home - Discussed plan with patient. Answered any questions. - Evaluation and treatment of this problem were appropriate in the emergency setting. Lab Data 04/27/24 02:39 04/27/24 02:39 Labs/Radiology: Radiology Impressions Chest/Abdomen X-ray 04/27/24 02:16 IMPRESSION: No acute abnormality. Chest/Abdomen/Pelvis CT 04/27/24 03:03 IMPRESSION: 1. Cardiomegaly associated with mild alveolar edema. 2. Atherosclerosis including coronary artery calcification. IMPRESSION: 1. There is mild skin thickening and stranding of the subcutaneous fat of the low anterior abdominal wall. Etiology uncertain. Correlation with physical examination recommended to exclude cellulitis. 2. Diverticulosis. 3. Atherosclerosis. Laboratory Results WBC 12.51 10^3/uL (3.29-11.43) H 04/27/24 02:39 RBC 2.88 10^6/uL (3.85-5.65) L 04/27/24 02:39 Hgb 8.40 g/dL (11.27-16.99) L 04/27/24 02:39 Hct 26.3 % (37-53) L 04/27/24 02:39 MCV 91.3 fl (82-101) 04/27/24 02:39 MCH 29.2 pg (27-33) 04/27/24 02:39 MCHC 31.9 g/dL (30-55) 04/27/24 02:39 RDW 14.6 % (12.1-15.1) 04/27/24 02:39 Plt Count 163 10^3/cmm (157-399) 04/27/24 02:39 MPV 9.6 fL (7.4-10.4) 04/27/24 02:39 Neut % (Auto) 84.5 % 04/27/24 02:39 Lymph % (Auto) 5.6 % 04/27/24 02:39 Carson % (Auto) 8.3 % 04/27/24 02:39 Eos % (Auto) 0.7 % 04/27/24 02:39 Baso % (Auto) 0.2 % 04/27/24 02:39 Neut # (Auto) 10.57 10^3/uL (1.8-7.7) H 04/27/24 02:39 Lymph # (Auto) 0.7 10^3/uL (0.8-4.8) L 04/27/24 02:39 Carson # (Auto) 1.0 10^3/uL (0.2-0.9) H 04/27/24 02:39 Eos # (Auto) 0.1 10^3/uL (0.0-0.8) 04/27/24 02:39 Baso # (Auto) 0.0 10^3/uL (0.0-0.1) 04/27/24 02:39 Nucleated RBC % (auto) 0 % 04/27/24 02:39 Nucleated RBCs # 0.0 /100WBC 04/27/24 02:39 Specimen Type Arterial 04/27/24 03:34 Sample Site Radial, right 04/27/24 03:34 ABG pH 7.45 (7.35-7.45) 04/27/24 03:34 ABG pCO2 41.1 mmHg (35-45) 04/27/24 03:34 ABG pO2 70.7 mmHg (80.0-100.0) L 04/27/24 03:34 ABG HCO3 28.3 mmol/L (22-26) H 04/27/24 03:34 ABG O2 Saturation 95.1 04/27/24 03:34 ABG Base Excess 3.9 mmol/L (-2.0-2.0) H 04/27/24 03:34 Ganesh Test Pos 04/27/24 03:34 A-a O2 Gradient 3.9 mmHg (5-10) L 04/27/24 03:34 Hematocrit 27.4 % (42-52) L 04/27/24 03:34 Hgb O2 Saturation 93.8 % (95-100) L 04/27/24 03:34 Carboxyhemoglobin 1.6 %THgb (0.4-20.1) 04/27/24 03:34 Methemoglobin < 0.0 % (0.4-1.5) L 04/27/24 03:34 Total Hemoglobin 8.9 g/dL (14-18) L 04/27/24 03:34 Sodium 138.0 mmol/L (131-143) 04/27/24 03:34 Potassium 4.3 mmol/L (3.5-5.0) 04/27/24 03:34 Glucose 169.0 mg/dL (70-115) H 04/27/24 03:34 Ionized Calcium 1.2 mmol/L (1.1-1.4) 04/27/24 03:34 O2 Delivery Device Nc 04/27/24 03:34 O2 Liters/Min 2.0 % 04/27/24 03:34 Product Applications Scientist ID [email or web address] 04/27/24 03:34 Sodium 139 mmol/L (136-145) 04/27/24 02:39 Potassium 4.8 mmol/L (3.5-5.1) 04/27/24 02:39 Chloride 96 mmol/L (98-107) L 04/27/24 02:39 Carbon Dioxide 27 mmol/L (22-29) 04/27/24 02:39 Anion Gap 20.8 (5-19) H 04/27/24 02:39 BUN 48 mg/dL (8-23) H 04/27/24 02:39 Creatinine 7.1 mg/dL (0.7-1.2) H* 04/27/24 02:39 GFR Calculation Not Reportable 04/27/24 02:39 Glucose 186 mg/dL (65-115) H 04/27/24 02:39 Calculated Osmolality 305 mOsm/kg (285-295) H 04/27/24 02:39 Lactic Acid 1.4 mmol/L (0.5-2.2) 04/27/24 02:39 Calcium 9.0 mg/dL (8.5-10.5) 04/27/24 02:39 Total Bilirubin 0.6 mg/dL (0.15-1.2) 04/27/24 02:39 AST 10 U/L (0-40) 04/27/24 02:39 ALT 11 U/L (0-41) 04/27/24 02:39 Alkaline Phosphatase 290 U/L (40-130) H 04/27/24 02:39 Troponin T Baseline 163 ng/L (0-15) H* 04/27/24 02:39 Troponin T 120 Minute 162.2 ng/L (0-15) H 04/27/24 04:24 Delta Troponin T -0.8 ABS# (0-10) L 04/27/24 04:24 C-Reactive Protein 256.7 mg/L (0.0-4.9) H 04/27/24 02:39 NT-Pro-B Natriuret Pep 86927 pg/mL (0-125) H 04/27/24 02:39 Total Protein 6.0 g/dL (6.6-8.7) L 04/27/24 02:39 Albumin 3.6 g/dL (3.5-5.2) 04/27/24 02:39 Globulin 2.4 g/dL (1.3-4.6) 04/27/24 02:39 Lipase 14 U/L (13-60) 04/27/24 02:39 All radiology interpretation(s) finalized by discharge Discharge Plan Discharge Patient Disposition: Home Clinical Impression: Non-cardiac chest pain, Abdominal pain, End stage renal disease on dialysis Condition: Stable Prescriptions: No Action pantoprazole 40 mg tablet,delayed release (DR/EC) 40 mg PO QAM terazosin 10 mg capsule 10 mg PO BID acetaminophen [Tylenol Extra Strength] 500 mg tablet 1,000 mg PO Q6H PRN (Reason: Pain) Novolog FlexPen U-100 Insulin 100 unit/mL (3 mL) insulin pen See Rx Instructions .ROUTE .COMPLEX Qty: 15 0RF Rx Instructions: Before or right after meals prn. SLIDING SCALE: FOR BS 150-200=0 UNITS, 201- 250= 2 UNITS, 251-300= 4 UNITS, 301-350= 6 UNITS, 351-400= 8 UNITS. (DME) Diabetic Shoes See Rx Instructions .ROUTE .MEDSUPPLY Qty: 1 0RF Rx Instructions: As directed [facility] [employer] with 3 pairs of inserts (DME) Diabetic Shoes See Rx Instructions .ROUTE .MEDSUPPLY Qty: 1 0RF Rx Instructions: As directed By [facility] [employer] [facility] with 3 pairs of inserts rosuvastatin [Crestor] 10 mg tablet 10 mg PO BEDTIME sevelamer carbonate 800 mg tablet 1,600 mg PO BID (DME) FreeStyle Inocencia 14 Day Sensor Kit See Rx Instructions .Route Qty: 1 0RF Rx Instructions: As directed (DME) FreeStyle Inocencia 14 Day [place] Misc See Rx Instructions .Route Qty: 1 0RF Rx Instructions: As directed amlodipine 10 mg tablet 10 mg PO DAILY allopurinol 300 mg tablet 300 mg PO DAILY escitalopram oxalate [Lexapro] 20 mg tablet 20 mg PO DAILY irbesartan 300 mg tablet 300 mg PO DAILY cholecalciferol (vitamin D3) 50 mcg (2,000 unit) capsule 50 mcg PO DAILY (DME) BIPAP and supplies See Rx Instructions .Route .MEDSUPPLY Qty: 1 0RF Rx Instructions: with 2L of oxygen when in use Levemir FlexPen 100 unit/mL (3 mL) insulin pen 24 unit SUBCUT BEDTIME Qty: 15 2RF levothyroxine 25 mcg Tablet 25 mcg PO QAM clopidogrel 75 mg tablet 75 mg PO BEDTIME Hold Instructions: Resume on 07/10/21. aspirin 81 mg tablet,delayed release (DR/EC) 81 mg PO QAM Hold Instructions: Resume on 07/07/21. cetirizine [Zyrtec] 10 mg Tablet 10 mg PO BID isosorbide mononitrate 60 mg Tablet Extended Release 24 Hr 60 mg PO BID Qty: 60 0RF furosemide [Lasix] 80 mg Tablet 80 mg PO BID hydralazine 10 mg tablet 10 mg PO BID nitroglycerin [Nitrostat] 0.4 mg Tablet, Sublingual 0.4 mg SUBLINGUAL Q5M PRN (Reason: Chest Pain) Rx Instructions: do not exceed 3 doses per episode carvedilol 25 mg Tablet 12.5 mg PO BID folic acid 400 mcg Tablet 0.4 mg PO DAILY tuberculin PPD 5 tub. unit /0.1 mL Solution 0.1 tb unit INTRADERMAL Q14D Colace 100 mg Capsule 100 mg PO BID Discharge Orders: Discharge ED (Routine); Ordered 04/27/24 Ordered By: Elyssa Willson Referrals: Raul Bautista MD [Primary Care Provider] - Discharge Diet: Usual diet Discharge Activity: Increase activity as tolerated Patient Instructions: Abdominal Pain (ED), Opioid Safety, Pain Management Activity Restrictions/Additional Instructions: Make sure you go to dialysis today. If symptoms worsen return to the emergency room. Use your home oxygen as needed. Thank you for choosing [facility] for your healthcare needs today. Please realize this is an emergency room and that we are providing you with a medical screening exam and this may not be complete and all inclusive of all the testing and or work up that you may need to determine your ailment or severity of your illness. You have been screened and evaluated and felt safe for discharge. Health conditions do change or evolve sometimes and as such it is important that you follow up with your Primary Doctor to be re checked, 3-5 days is a general good time frame for follow up. You are always welcome to return to the ED for re assessment if your symptoms are worsening or you have new concerns Coding Level of Care Code ED Heel Seat Laster for Les Fuentes
--- NOTE | 2024-04-27 02:35 | ECG_ITS ---
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 Measurements Intervals [place] Rate: 93 P: 0 DE: 0 QRS: 52 QRSD: 105 T: 24 QT: 387 QTc: 481 Interpretive Statements ATRIAL FIBRILLATION WITH ABERRANT CONDUCTION OR VENTRICULAR PREMATURE COMPLEXES MODERATE ST DEPRESSION [0.05+ mV ST DEPRESSION] Compared to ECG 03/17/2023 19:55:42 Ventricular premature complex(es) now present Aberrant conduction of supraventricular beat(s) now present ST (T wave) deviation now present Intraventricular conduction delay no longer present T-wave abnormality no longer present Electronically Signed On 04-27-2024 21:25:26 SAFETY OFFICER by Daryl Ashraf M.D. [email or web address]
[2024-04-27 02:48] LABS: Basophils % 0.2 %; Eosinophils # 0.1 10^3/uL (0.0-0.8); Eosinophils % 0.7 %; Hematocrit 26.3 % (37-53); Lymphocytes # 0.7 10^3/uL (0.8-4.8); Lymphocytes % 5.6 %; Mean Corpuscular HGB Conc 31.9 g/dL (30-55); Mean Corpuscular Hemoglobin 29.2 pg (27-33); Mean Corpuscular Volume 91.3 fl (82-101); Mean Platelet Volume 9.6 fL (7.4-10.4); Monocytes % 8.3 %; Neutrophils # 10.57 10^3/uL (1.8-7.7); Neutrophils % 84.5 %; Nucleated Red Blood Cells % 0 %; Platelet Count 163 10^3/cmm (157-399); Red Blood Count 2.88 10^6/uL (3.85-5.65); Red Cell Distribution Width 14.6 % (12.1-15.1); White Blood Count 12.51 10^3/uL (3.29-11.43)
--- NOTE | 2024-04-27 03:03 | CTR_ITS ---
PROCEDURE INFORMATION: Exam: CT Chest Without Contrast; Diagnostic Exam date and time: 04/27/2024 3:13 AM Age: 74 years old Clinical indication: Abdominal tenderness; Shortness of breath; Prior surgery; Surgery date: 6+ months; Surgery type: Choley, back SX, stents; Patient HX: Pagets dx, diabetic, dialysis, ckd, cad; Additional info: SOB, abd pain TECHNIQUE: Imaging protocol: Diagnostic computed tomography of the chest without contrast. Radiation optimization: All CT scans at this facility use at least one of these dose optimization techniques: automated exposure control; mA and/or kV adjustment per patient size (includes targeted exams where dose is matched to clinical indication); or iterative reconstruction. COMPARISON: CR XR chest 1V portable [id number] 03/17/2023 5:45 PM RADIATION DOSE METRICS: Total DLP (mGy-cm): 0 FINDINGS: Lungs: Patchy perihilar ground-glass opacities present likely reflecting mild pulmonary edema. Pleural spaces: Trace bilateral pleural effusions associated with passive atelectasis. Heart: The heart is enlarged. Lymph nodes: Unremarkable. No enlarged lymph nodes. Vasculature: Calcific plaque involves the thoracic aorta and coronary arteries. Bones/joints: Unremarkable. No acute fracture. Soft tissues: Unremarkable. PROCEDURE INFORMATION: Exam: CT Abdomen And Pelvis Without Contrast Exam date and time: 04/27/2024 3:13 AM Age: 74 years old Clinical indication: Abdominal tenderness; Shortness of breath; Prior surgery; Surgery date: 6+ months; Surgery type: Choley, back SX, stents; Patient HX: Pagets dx, diabetic, dialysis, ckd, cad; Additional info: SOB, abd pain TECHNIQUE: Imaging protocol: Computed tomography of the abdomen and pelvis without contrast. Radiation optimization: All CT scans at this facility use at least one of these dose optimization techniques: automated exposure control; mA and/or kV adjustment per patient size (includes targeted exams where dose is matched to clinical indication); or iterative reconstruction. COMPARISON: CT abdomen pelvis wo con [id number] 02/18/2023 7:14 PM RADIATION DOSE METRICS: Total DLP (mGy-cm): 1148.42 FINDINGS: Liver: Normal. No mass. Gallbladder and biliary ducts: The gallbladder is surgically absent. Pancreas: Normal. No ductal dilation. Spleen: Normal. No splenomegaly. Adrenal glands: Normal. No mass. Kidneys and ureters: Stable exophytic cyst arising from the inferior right kidney measuring 3.9 cm with Hounsfield units of 15. Stomach and bowel: Scattered colon diverticula. Appendix: No evidence of appendicitis. Intraperitoneal space: Unremarkable. No free air. No significant fluid collection. Vasculature: Extensive calcific plaque involves the abdominal aorta and iliac arteries. Lymph nodes: Unremarkable. No enlarged lymph nodes. Urinary bladder: Unremarkable as visualized. Reproductive: The prostate gland is mildly enlarged measuring 5.1 cm in transverse dimension. Bones/joints: Posterior fusion hardware from T10 through L4 present. Findings of Paget's disease involving the L2 vertebral body again noted.. Soft tissues: There is mild skin thickening and stranding of the subcutaneous fat of the low anterior abdominal wall. No fluid collections. CT/[place] [id number] IMPRESSION: 1. Cardiomegaly associated with mild alveolar edema. 2. Atherosclerosis including coronary artery calcification. IMPRESSION: 1. There is mild skin thickening and stranding of the subcutaneous fat of the low anterior abdominal wall. Etiology uncertain. Correlation with physical examination recommended to exclude cellulitis. 2. Diverticulosis. 3. Atherosclerosis.
[2024-04-27 03:04] VITALS: BP 159/89; PULSE 91; RESP 18; O2SAT 90
[2024-04-27 03:09] LABS: Lactic Sepsis W/Reflex 1.4 mmol/L (0.5-2.2)
--- NOTE | 2024-04-27 03:09 | PC.NURSE ---
when asked about urine specimen, pt states that he does not normally make urine. notified.
[2024-04-27 03:15] LABS: Alanine Aminotransferase 11 U/L (0-41); Albumin Level 3.6 g/dL (3.5-5.2); Alkaline Phosphatase 290 U/L (40-130); Anion Gap 20.8 (5-19); Aspartate Amino Transferase 10 U/L (0-40); Blood Urea Nitrogen 48 mg/dL (8-23); C Reactive Protein 256.7 mg/L (0.0-4.9); Carbon Dioxide 27 mmol/L (22-29); Chloride 96 mmol/L (98-107); Globulin 2.4 g/dL (1.3-4.6); Glucose 186 mg/dL (65-115); Lipase 14 U/L (13-60); Osmolality Calculated 305 mOsm/kg (285-295); Potassium 4.8 mmol/L (3.5-5.1); Sodium 139 mmol/L (136-145); Total Bilirubin 0.6 mg/dL (0.15-1.2)
[2024-04-27 03:20] LABS: Troponin(5th) Baseline 163 ng/L (0-15)
[2024-04-27 03:41] LABS: ABG PCO2 41.1 mmHg (35-45); ABG PH Result 7.45 (7.35-7.45); Alveolar-Arterial Oxygen Gradi 3.9 mmHg (5-10); Arterial Blood Gas Hematocrit 27.4 % (42-52); Base Excess ABG 3.9 mmol/L (-2.0-2.0); Blood Gas Allen Test Pos; Blood Gas Sample Site Radial, right; Blood Gas Sample Type Arterial; Carboxyhemoglobin 1.6 %THgb (0.4-20.1); HCO3 ABG 28.3 mmol/L (22-26); HGB O2 Sat 93.8 % (95-100); Ionized Calcium Level - ABG 1.2 mmol/L (1.1-1.4); Methemoglobin < 0.0 % (0.4-1.5); Oxygen Device NC; Oxygen Saturation ABG 95.1; PO2 ABG 70.7 mmHg (80.0-100.0); Potassium Level - ABG 4.3 mmol/L (3.5-5.0); Total Hemoglobin 8.9 g/dL (14-18)
[2024-04-27 03:42] LABS: NT Pro B Type Natriuretic Pept 39698 pg/mL (0-125)
[2024-04-27 04:32] VITALS: BP 129/77; PULSE 84; RESP 18; O2SAT 92
[2024-04-27 04:55] LABS: Troponin 5 2HR Delta -0.8 ABS# (0-10)
[2024-04-27 04:56] LABS: Troponin 5 2HR 162.2 ng/L (0-15)
[2024-04-27] MEDS: acetaminophen 500 mg Tablet 1000 MG PO (05:23)
[2024-04-27 06:11] VITALS: BP 126/77; PULSE 79; RESP 16; O2SAT 93
[2024-04-27 06:13] VITALS: BP 126/77; PULSE 87; RESP 16; O2SAT 92
== END 2024-04-27 07:06 | disposition home or self-care (01) ==
PROVIDERS: Emergency Provider Emergency Medicine; PCP Family Medicine
DX: R07.89 Other chest pain (principal); R10.9 Unspecified abdominal pain; E13.22 Other specified diabetes mellitus with diabetic chronic kidney disease; I13.2 Hypertensive heart and chronic kidney disease with heart failure and with stage 5 chronic kidney disease, or end stage renal disease; I50.9 Heart failure, unspecified; N18.6 End stage renal disease; Z99.2 Dependence on renal dialysis; Z86.73 Personal history of transient ischemic attack (TIA), and cerebral infarction without residual deficits; I25.10 Atherosclerotic heart disease of native coronary artery without angina pectoris; E78.5 Hyperlipidemia, unspecified; E13.42 Other specified diabetes mellitus with diabetic polyneuropathy
CPT/HCPCS: 36415; 71250; 74022; 74176; 80051; 80053; 82330; 82805; 83605; 83690; 83880; 84484; 85025; 86140; 87040; 93005; 99285

== ENCOUNTER 2024-05-06 09:56 | Inpatient (IN) | payer MEDICARE, SELFPAY ==
[2024-05-06] VITALS (7 sets, daily range): BP systolic 88–183; BP diastolic 61–81; PULSE 52–67; RESP 16–18; TEMP 36.1–36.8; O2SAT 89–93; BMI 34.6; BMI 35.6
--- NOTE | 2024-05-06 10:01 | XR_ITS ---
WS: [id number] XR chest 1V portable [id number] REASON FOR EXAM: Shortness of breath FINDINGS: Chest is unchanged compared to 04/27/2024. Lungs are hypoexpanded with elevation of the right hemidiaphragm. Moderate tortuosity and ectasia of the thoracic aorta. There is significant cardiomegaly and central pulmonary venous congestion. Pulmonary edema is not def ined. Severe osteoarthropathy in the right shoulder. Moderate degenerative spondylosis in the thoracic spin e. XR/XR chest 1V portable [id number] IMPRESSION: Stable abnormal chest (cardiomegaly and central vascular congestion) with no ac match-e-be-nash-she-wish band abnormality.
--- NOTE | 2024-05-06 10:02 | ED_ITS ---
HPI - SOB/Dyspnea 2 General: Chief Complaint: Shortness of Breath/Dyspnea Stated Complaint: SOB Time Seen by Provider: 05/06/24 09:58 History of Present Illness: HPI Narrative: 74-year-old man with history of end-stag e renal disease on dialysis, congestive heart failure, hypertension, stroke, hyperlipidemia, carotid artery disease, diabetes, chronic pain syndrome, hypothyroidism, coronary artery disease and obstructive sleep apnea who presents the emergency room by ambulance from home with worsening shortness of breath. EMS reports he is in atrial fibrillation with a controlled rate and has no known atrial fibrillation history. He is supposed to go to dialysis today. He says shortness of breath has been worsening for about 2 weeks. He is had worsening orthopnea. Worsening lower extremity swelling. No chest pain. EMS reports his oxygen saturations were in the upper 80s when they arrived so they put him on some oxygen. Here on room air he is in the low 90s. No fevers. No new cough. No abdominal pain. No nausea or vomiting. Related Data Home Medications Medication Instructions Recorded Confirmed acetaminophen 500 mg tablet 1,000 mg PO Q6H PRN Pain 05/05/19 05/06/24 (Tylenol Extra Strength) pantoprazole 40 mg tablet,delayed 40 mg PO QAM 05/05/19 05/06/24 release terazosin 10 mg capsule 10 mg PO BID 05/05/19 05/06/24 aspirin 81 mg tablet,delayed 81 mg PO QAM 09/01/20 05/06/24 release clopidogrel 75 mg tablet 75 mg PO BEDTIME 09/01/20 05/06/24 levothyroxine 25 mcg tablet 25 mcg PO QAM 11/09/20 05/06/24 cetirizine 10 mg tablet (Zyrtec) 10 mg PO BID 11/14/20 05/06/24 rosuvastatin 10 mg tablet (Crestor) 10 mg PO BEDTIME 09/20/21 05/06/24 nitroglycerin 0.4 mg sublingual 0.4 mg sublingual Q5M PRN Chest 09/29/21 05/06/24 tablet (Nitrostat) Pain sevelamer carbonate 800 mg tablet 1,600 mg PO BID 02/13/22 05/06/24 furosemide 80 mg tablet (Lasix) 80 mg PO BID 11/14/22 05/06/24 carvedilol 25 mg tablet 12.5 mg PO BID 02/19/23 05/06/24 docusate sodium 100 mg capsule 100 mg PO BID 02/28/23 05/06/24 (Colace) folic acid 400 mcg tablet 0.4 mg PO DAILY 02/28/23 05/06/24 allopurinol 300 mg tablet 300 mg PO DAILY 03/17/23 05/06/24 amlodipine 10 mg tablet 10 mg PO DAILY 03/17/23 05/06/24 escitalopram oxalate 20 mg tablet 20 mg PO DAILY 03/17/23 05/06/24 (Lexapro) cholecalciferol (vitamin D3) 50 50 mcg PO DAILY 03/26/24 05/06/24 mcg (2,000 unit) capsule irbesartan 300 mg tablet 300 mg PO DAILY 03/26/24 05/06/24 insulin glargine 100 unit/mL (3 24 unit SUBCUT BEDTIME 05/06/24 05/06/24 mL) subcutaneous pen Previous Rx's Medication Instructions Recorded Diabetic Shoes #1 ea 09/13/20 Diabetic Shoes #1 ea 10/25/20 BIPAP and supplies #1 ea 04/09/21 isosorbide mononitrate 60 mg 60 mg PO BID #60 tabs 08/20/22 tablet,extended release 24 hr flash glucose scanning reader #1 ea 01/31/23 (FreeStyle Inocencia 14 Day [place]) flash glucose sensor (FreeStyle #1 ea 01/31/23 Inocencia 14 Day Sensor kit) Allergies Allergy/AdvReac Type Severity Reaction Status Date / Time chicken derived Allergy Unknown ADR-Nausea Verified 04/27/24 02:12 morphine AdvReac Mild dizzy & Verified 04/27/24 02:12 nauseous Review of Systems 2 Narrative: Constitutional symptoms: Negative except as documented in HPI. Skin symptoms: Negative except as documented in HPI. Eye symptoms: Negative except as documented in HPI. ENMT symptoms: Negative except as documented in HPI. Respiratory symptoms: Negative except as documented in HPI. Cardiovascular symptoms: Negative except as documented in HPI. Gastrointestinal symptoms: Negative except as documented in HPI. Genitourinary symptoms: Negative except as documented in HPI. Musculoskeletal symptoms: Negative except as documented in HPI. Neurologic symptoms: Negative except as documented in HPI. Psychiatric symptoms: Negative except as documented in HPI. Endocrine symptoms: Negative except as documented in HPI. PFS ED 2 PFSH: Medical History Hypothyroidism Hemodialysis access site with arteriovenous graft Paget's disease Chronic kidney disease Chest pain NSTEMI (non-ST elevated myocardial infarction) Cardiac enzymes elevated Diabetes mellitus with diabetic polyneuropathy ESRD (end stage renal disease) CAD (coronary artery disease) Chronic kidney disease (CKD) stage G5/A1, glomerular filtration rate (GFR) less than or equal to 15 mL/min/1.73 square meter and albuminuria creatinine ratio less than 30 mg/g History of 2019 novel coronavirus disease (COVID-19) Acute kidney injury superimposed on CKD Congestive 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 Anemia CVA (cerebral vascular accident) Dyslipidemia Carotid stenosis, bilateral Essential hypertension Diabetes 1.5, managed as type 2 Chronic back pain KAITLYNN (obstructive sleep apnea) Surgical History History of esophagogastroduodenoscopy (EGD) 10 yrs ago Hx of cholecystectomy S/P hemodialysis catheter insertion S/P angioplasty with stent Previous back surgery S/P cataract extraction Family History Mother CAD (coronary artery disease) Stroke Sister Hypertension Social History Smoking and tobacco/nicotine status: never used tobacco/nicotine Alcohol intake: never Substance/Drug Use: never Household members: spouse Marital status: service: Yes branch: [employer] Current occupational status: employed Current occupation: [employer] Current gender identity: Male Physical Exam 2 Narrative: EXAM NARRATIVE: General: Alert, no acute distress. Skin: Warm, dry. Head: Normocephalic, atraumatic. Neck: Supple, trachea midline. Eye: Extraocular movements are intact. Ears, nose, mouth and throat: mucosa moist. Cardiovascular: Regular, Normal peripheral perfusion. 2+ pitting tibial edema. AV fistula left forearm Respiratory: Lungs are clear to auscultation, respirations are non-labored, breath sounds are equal, Symmetrical chest wall expansion. Gastrointestinal: Soft, Nontender, Non distended Musculoskeletal: Normal ROM, no deformity. Neurological: Alert and oriented, No focal neurological deficit observed. Psychiatric: Cooperative, appropriate mood & affect. Course 2 Vital Signs: Vital signs: Vital Signs Temperature 97.8 F 05/06/24 09:57 Pulse Rate 60 05/06/24 09:57 Respiratory Rate 18 05/06/24 09:57 Blood Pressure 110/61 05/06/24 09:57 Pulse Oximetry 89 L 05/06/24 09:57 Oxygen Delivery Me thod Room Air 05/06/24 09:57 MDM - SOB/Dyspnea Medical Decision Making Differential diagnosis for patient with shortness of breath includes but is not limited to and based on the above HPI, review of systems and physical exam: Pneumonia. Bronchitis. Asthma or COPD with acute exacerbation. Acute coronary syndrome / [place]. Pulmonary embolism. Anxiety. Congestive heart failure. Viral infections including influenza and Covid-19. Atrial fibrillation. Anxiety. Pleural effusion. Pneumothorax. Orders placed to evaluate differential diagnosis based on the above differential, HPI and physical exam EKG: Time 10:05 AM. Rate 57. Atrial fibrillation with slow rate, No ST-T changes, no ectopy, This was reviewed and interpreted by myself the ER physician at 10:10 AM Lab Review: Laboratory results were reviewed and interpreted by myself the emergency room physician. No leukocytosis. Slightly worsening anemia with a hemoglobin of 8. It was 8.4 recently. BUN and creatinine are 34 and 6.3 which to be expected in this end- stage renal patient. His potassium is 4.5. Glucose is elevated at 246. Chest x-ray: No acute process. Cardiomegaly and vascular congestion which has been present on many previous. I feel this may be a little worse than usual. This was reviewed and interpreted by myself the emergency room physician. I also reviewed the radiology report. I reviewed the patient's medical record. Reexamination: Patient remained stable. No increased work of breathing. No altered mental status. No focal motor deficits. Consultation: I spoke with Dr. Machado with nephrology who has seen the patient on telemedicine camera and spoke with him and evaluated him. He will set up dialysis for today. Other recommendations to come Consultation: I spoke with Dr. Garcia with the hospitalist service who agrees to admission. Assessment and plan: Dyspnea Hypoxemia End-stage renal disease on dialysis -I discussed the patient with the hospitalist on-call who is admitting the patient. - Discussed findings and plan with patient. Answered any questions. - All laboratory values were reviewed and interpreted personally by myself, the ER physician - All imaging was reviewed and interpreted personally by myself, the ER physician. - Evaluation and treatment of this problem were appropriate in the emergency setting Lab Data 05/06/24 10:16 05/06/24 10:16 Labs/Radiology: Radiology Impressions Chest X-Ray 05/06/24 10:01 IMPRESSION: Stable abnormal chest (cardiomegaly and central vascular congestion) with no acute abnormality. Laboratory Results WBC 9.88 10^3/uL (3.29-11.43) 05/06/24 10:16 RBC 2.82 10^6/uL (3.85-5.65) L 05/06/24 10:16 Hgb 8.00 g/dL (11.27-16.99) L 05/06/24 10:16 Hct 26.2 % (37-53) L 05/06/24 10:16 MCV 92.9 fl (82-101) 05/06/24 10:16 MCH 28.4 pg (27-33) 05/06/24 10:16 MCHC 30.5 g/dL (30-55) 05/06/24 10:16 RDW 14.5 % (12.1-15.1) 05/06/24 10:16 Plt Count 252 10^3/cmm (157-399) 05/06/24 10:16 MPV 9.3 fL (7.4-10.4) 05/06/24 10:16 Neut % (Auto) 77.9 % 05/06/24 10:16 Lymph % (Auto) 9.9 % 05/06/24 10:16 [place] % (Auto) 8.5 % 05/06/24 10:16 Eos % (Auto) 2.7 % 05/06/24 10:16 Baso % (Auto) 0.4 % 05/06/24 10:16 Neut # (Auto) 7.69 10^3/uL (1.8-7.7) 05/06/24 10:16 Lymph # (Auto) 1.0 10^3/uL (0.8-4.8) 05/06/24 10:16 [place] # (Auto) 0.8 10^3/uL (0.2-0.9) 05/06/24 10:16 Eos # (Auto) 0.3 10^3/uL (0.0-0.8) 05/06/24 10:16 Baso # (Auto) 0.0 10^3/uL (0.0-0.1) 05/06/24 10:16 Nucleated RBC % (auto) 0 % 05/06/24 10:16 Nucleated RBCs # 0.0 /100WBC 05/06/24 10:16 Specimen Type Arterial 05/06/24 10:12 Sample Site Brachial, right 05/06/24 10:12 ABG pH 7.42 (7.35-7.45) 05/06/24 10:12 ABG pCO2 49.2 mmHg (35-45) H 05/06/24 10:12 ABG pO2 61.0 mmHg (80.0-100.0) L 05/06/24 10:12 ABG PO2/FiO2 Ratio 217 05/06/24 10:12 ABG HCO3 31.5 mmol/L (22-26) H 05/06/24 10:12 ABG O2 Saturation 91.9 05/06/24 10:12 ABG Base Excess 6.2 mmol/L (-2.0-2.0) H 05/06/24 10:12 Ganesh Test N/a 05/06/24 10:12 A-a O2 Gradient 10.4 mmHg (5-10) H 05/06/24 10:12 Hematocrit 25.2 % (42-52) L 05/06/24 10:12 Hgb O2 Saturation 89.3 % (95-100) L 05/06/24 10:12 Carboxyhemoglobin 1.6 %THgb (0.4-20.1) 05/06/24 10:12 Methemoglobin 1.3 % (0.4-1.5) 05/06/24 10:12 Total Hemoglobin 8.2 g/dL (14-18) L 05/06/24 10:12 Sodium 139.0 mmol/L (131-143) 05/06/24 10:12 Potassium 4.5 mmol/L (3.5-5.0) 05/06/24 10:12 Glucose 254.0 mg/dL (70-115) H 05/06/24 10:12 Ionized Calcium 1.1 mmol/L (1.1-1.4) 05/06/24 10:12 O2 Delivery Device Nc 05/06/24 10:12 O2 Liters/Min 2.0 % 05/06/24 10:12 FiO2 28.0 % 05/06/24 10:12 Converting Operator ID Amh 05/06/24 10:12 Sodium 136 mmol/L (136-145) 05/06/24 10:16 Potassium 4.5 mmol/L (3.5-5.1) 05/06/24 10:16 Chloride 91 mmol/L (98-107) L 05/06/24 10:16 Carbon Dioxide 28 mmol/L (22-29) 05/06/24 10:16 Anion Gap 21.5 (5-19) H 05/06/24 10:16 BUN 34 mg/dL (8-23) H 05/06/24 10:16 Creatinine 6.3 mg/dL (0.7-1.2) H* 05/06/24 10:16 GFR Calculation Not Reportable 05/06/24 10:16 Glucose 246 mg/dL (65-115) H 05/06/24 10:16 Calculated Osmolality 298 mOsm/kg (285-295) H 05/06/24 10:16 Lactic Acid 1.7 mmol/L (0.5-2.2) 05/06/24 10:16 Calcium 9.2 mg/dL (8.5-10.5) 05/06/24 10:16 Phosphorus 4.1 mg/dL (2.5-4.5) 05/06/24 10:16 Magnesium 2.2 mg/dL (1.7-2.3) 05/06/24 10:16 Total Bilirubin 0.4 mg/dL (0.15-1.2) 05/06/24 10:16 AST 7 U/L (0-40) 05/06/24 10:16 ALT 8 U/L (0-41) 05/06/24 10:16 Alkaline Phosphatase 266 U/L (40-130) H 05/06/24 10:16 Troponin T Baseline 151 ng/L (0-15) H* 05/06/24 10:16 Total Protein 6.9 g/dL (6.6-8.7) 05/06/24 10:16 Albumin 3.7 g/dL (3.5-5.2) 05/06/24 10:16 Globulin 3.2 g/dL (1.3-4.6) 05/06/24 10:16 All radiology interpretation(s) finalized by discharge Discharge Plan Discharge Patient Disposition: Admitted As Inpatient Clinical Impression: Hypoxemia, Dyspnea, Pleural effusion, End stage renal disease on dialysis Condition: Stable Coding Level of Care Code ED [employer]er for Les Fuentes
--- NOTE | 2024-05-06 10:02 | ECG_ITS ---
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: : 1950 Requested By: Elyssa Matos Order Number: [id number] Flor MD: GUY LEARY Measurements Intervals [place] Rate: 57 P: 0 VT: 0 QRS: -1 QRSD: 100 T: 22 QT: 437 QTc: 426 Interpretive Statements ATRIAL FIBRILLATION WITH SLOW VENTRICULAR RESPONSE POSSIBLE ANTERIOR MYOCARDIAL INFARCTION , PROBABLY OLD [30 ms Q WAVE IN V3/V4, OR R < 0.2 mV IN V4] ABNORMAL RHYTHM ECG Compared to ECG 04/27/2024 02:35:51 Myocardial infarct finding now present Ventricular premature complex(es) no longer present Aberrant conduction of supraventricular beat(s) no longer present ST (T wave) deviation no longer present Electronically Signed On 05-07-2024 23:25:17 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
[2024-05-06 10:24] LABS: ABG PCO2 49.2 mmHg (35-45); ABG PH Result 7.42 (7.35-7.45); Alveolar-Arterial Oxygen Gradi 10.4 mmHg (5-10); Arterial Blood Gas Hematocrit 25.2 % (42-52); Base Excess ABG 6.2 mmol/L (-2.0-2.0); Blood Gas Operator Identificat AMH; Blood Gas Sample Site Brachial, right; Blood Gas Sample Type Arterial; Carboxyhemoglobin 1.6 %THgb (0.4-20.1); HCO3 ABG 31.5 mmol/L (22-26); HGB O2 Sat 89.3 % (95-100); Ionized Calcium Level - ABG 1.1 mmol/L (1.1-1.4); Methemoglobin 1.3 % (0.4-1.5); Oxygen Device NC; Oxygen Saturation ABG 91.9; PO2 FiO2 Ratio Arterial Blood 217; Potassium Level - ABG 4.5 mmol/L (3.5-5.0); Total Hemoglobin 8.2 g/dL (14-18)
[2024-05-06 10:27] LABS: Basophils % 0.4 %; Eosinophils # 0.3 10^3/uL (0.0-0.8); Eosinophils % 2.7 %; Hematocrit 26.2 % (37-53); Lymphocytes % 9.9 %; Mean Corpuscular HGB Conc 30.5 g/dL (30-55); Mean Corpuscular Hemoglobin 28.4 pg (27-33); Mean Corpuscular Volume 92.9 fl (82-101); Mean Platelet Volume 9.3 fL (7.4-10.4); Monocytes # 0.8 10^3/uL (0.2-0.9); Monocytes % 8.5 %; Neutrophils # 7.69 10^3/uL (1.8-7.7); Neutrophils % 77.9 %; Nucleated Red Blood Cells % 0 %; Platelet Count 252 10^3/cmm (157-399); Red Blood Count 2.82 10^6/uL (3.85-5.65); Red Cell Distribution Width 14.5 % (12.1-15.1); White Blood Count 9.88 10^3/uL (3.29-11.43)
[2024-05-06 10:44] LABS: Lactic Sepsis W/Reflex 1.7 mmol/L (0.5-2.2)
[2024-05-06 10:48] LABS: Troponin(5th) Baseline 151 ng/L (0-15)
[2024-05-06 10:55] LABS: Alanine Aminotransferase 8 U/L (0-41); Albumin Level 3.7 g/dL (3.5-5.2); Alkaline Phosphatase 266 U/L (40-130); Anion Gap 21.5 (5-19); Aspartate Amino Transferase 7 U/L (0-40); Blood Urea Nitrogen 34 mg/dL (8-23); Calcium 9.2 mg/dL (8.5-10.5); Carbon Dioxide 28 mmol/L (22-29); Chloride 91 mmol/L (98-107); Creatinine Clr Calc Pharmacy 10.8601; Globulin 3.2 g/dL (1.3-4.6); Glucose 246 mg/dL (65-115); Magnesium 2.2 mg/dL (1.7-2.3); Osmolality Calculated 298 mOsm/kg (285-295); Phosphorus 4.1 mg/dL (2.5-4.5); Potassium 4.5 mmol/L (3.5-5.1); Sodium 136 mmol/L (136-145); Total Bilirubin 0.4 mg/dL (0.15-1.2); Total Protein 6.9 g/dL (6.6-8.7)
--- NOTE | 2024-05-06 11:13 | CT_ITS ---
WS: [id number] CT CHEST TECHNIQUE: Noncontrast CT of the chest with coronal and sagittal reformatted images. CLINICAL INFORMATION: abnormal chest xray COMPARISON: CT 04/27/2024 DLP: 551.[address] scans at [facility] use at least one of these dose optimization techniques: automated e xposure control; mA and/or kV adjustment per patient size (includes targeted exams where dose is matc hed to clinical indication); or iterative reconstruction. FINDINGS: No mediastinal or hilar lymphadenopathy. Calcified RIGHT hilar and pretracheal lymph nodes. No axillary lymphadenopathy. Postoperative changes pedicle screw fixation lower thoracic and upper l umbar spine. Bilateral perihilar groundglass infiltrates extending into the lower lobes likely due to alveolar sukhdev ma. Subsegmental atelectasis in the RIGHT middle lobe. Compressive bibasilar atelectasis RIGHT greate r than LEFT. Subsegmental atelectasis in the lingula. Tiny esophageal hernia. Partially visualized hepatomegaly. Cardiomegaly. Normal caliber thoracic aorta. Aortic calcification. Coronary calcification. CT/CT chest wo con [id number] IMPRESSION: 1. Cardiomegaly with mild bilateral perihilar and lower lobe groundglass opaci ties likely due to pulmonary edema. Trace pleural fluid with compressive atelec tasis in the lung bases. 2. No focal pneumonia. 3. Subsegmental atelectasis in the RIGHT middle lobe and lingula. 4. Small esophageal hiatal hernia. 5. No other acute findings.
--- NOTE | 2024-05-06 11:33 | P.CONIM_ITS ---
Providers/Reason For Consult 2 Consulting Physician/Specialty*: sixto tovar md / telenephrology Reason for Consult*: ESRD ayo Requesting Physician: DR Willson Primary Care Provider: Raul Bautista MD History of Present Illness History of Present Illness Eliazar Hogan is a 74 year old male Who presented to the emergency room with shortness of breath dyspnea exertion and chest pain. Patient was found to be in volume overload and controlled A-fib. Renal was called to see the patient to provide ESRD care. The patient has a history of atrial fibrillation hypertension, hypothyrodiism, CAD hyperlipidemia carotid artery stenosis. He follows w/ Dr Adonay Ryan of the cardiology service. The patient has ESRD and is on dialysis Friday and Friday. The patient states he does not miss dialysis. He dates that his dyspnea has been worsening over the last couple weeks. Review of Systems 2 Narrative: Shortness of breath orthopnea dyspnea on exertion palpitations nausea chest pain edema. Medications/Allergies Home Medications Medication Instructions Recorded Confirmed Last Taken Type acetaminophen 500 mg tablet 1,000 mg PO Q6H PRN Pain 05/05/19 05/06/24 11/14/22 History (Tylenol Extra Strength) pantoprazole 40 mg tablet,delayed 40 mg PO QAM 05/05/19 05/06/24 05/06/24 History release terazosin 10 mg capsule 10 mg PO BID 05/05/19 05/06/24 05/06/24 History aspirin 81 mg tablet,delayed 81 mg PO QAM 09/01/20 05/06/24 05/06/24 History release clopidogrel 75 mg tablet 75 mg PO BEDTIME 09/01/20 05/06/24 05/06/24 History Diabetic Shoes #1 ea 09/13/20 05/06/24 12/05/21 Rx Diabetic Shoes #1 ea 10/25/20 05/06/24 12/05/21 Rx levothyroxine 25 mcg tablet 25 mcg PO QAM 11/09/20 05/06/24 05/06/24 History cetirizine 10 mg tablet (Zyrtec) 10 mg PO BID 11/14/20 05/06/24 05/06/24 History BIPAP and supplies #1 ea 04/09/21 05/06/24 12/05/21 Rx rosuvastatin 10 mg tablet (Crestor) 10 mg PO BEDTIME 09/20/21 05/06/24 05/05/24 History nitroglycerin 0.4 mg sublingual 0.4 mg sublingual Q5M PRN Chest 09/29/21 05/06/24 09/29/21 History tablet (Nitrostat) Pain 2 tabs sevelamer carbonate 800 mg tablet 1,600 mg PO BID 02/13/22 05/06/24 05/06/24 History isosorbide mononitrate 60 mg 60 mg PO BID #60 tabs 08/20/22 05/06/24 05/06/24 Rx tablet,extended release 24 hr furosemide 80 mg tablet (Lasix) 80 mg PO BID 11/14/22 05/06/24 05/06/24 History flash glucose scanning reader #1 ea 01/31/23 05/06/24 Unknown Rx (FreeStyle Inocencia 14 Day [place]) flash glucose sensor (FreeStyle #1 ea 01/31/23 05/06/24 Unknown Rx Inocencia 14 Day Sensor kit) carvedilol 25 mg tablet 12.5 mg PO BID 02/19/23 05/06/24 05/06/24 History docusate sodium 100 mg capsule 100 mg PO BID 02/28/23 05/06/24 05/05/24 History (Colace) folic acid 400 mcg tablet 0.4 mg PO DAILY 02/28/23 05/06/24 05/05/24 History allopurinol 300 mg tablet 300 mg PO DAILY 03/17/23 05/06/24 05/06/24 History amlodipine 10 mg tablet 10 mg PO DAILY 03/17/23 05/06/24 05/06/24 History escitalopram oxalate 20 mg tablet 20 mg PO DAILY 03/17/23 05/06/24 05/06/24 History (Lexapro) cholecalciferol (vitamin D3) 50 50 mcg PO DAILY 03/26/24 05/06/24 Unknown History mcg (2,000 unit) capsule irbesartan 300 mg tablet 300 mg PO DAILY 03/26/24 05/06/24 05/06/24 History insulin glargine 100 unit/mL (3 24 unit SUBCUT BEDTIME 05/06/24 05/06/24 05/05/24 History mL) subcutaneous pen Allergies Allergy/AdvReac Type Severity Reaction Status Date / Time chicken derived Allergy Unknown ADR-Nausea Verified 04/27/24 02:12 morphine AdvReac Mild dizzy & Verified 04/27/24 02:12 nauseous PFSH Acute 2 PFSH: Medical History Hypothyroidism Hemodialysis access site with arteriovenous graft Paget's disease Chronic kidney disease Chest pain NSTEMI (non-ST elevated myocardial infarction) Cardiac enzymes elevated Diabetes mellitus with diabetic polyneuropathy ESRD (end stage renal disease) CAD (coronary artery disease) Chronic kidney disease (CKD) stage G5/A1, glomerular filtration rate (GFR) less than or equal to 15 mL/min/1.73 square meter and albuminuria creatinine ratio less than 30 mg/g History of 2019 novel coronavirus disease (COVID-19) Acute kidney injury superimposed on CKD Congestive 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 Anemia CVA (cerebral vascular accident) Dyslipidemia Carotid stenosis, bilateral Essential hypertension Diabetes 1.5, managed as type 2 Chronic back pain KAITLYNN (obstructive sleep apnea) Surgical History History of esophagogastroduodenoscopy (EGD) 10 yrs ago Hx of cholecystectomy S/P hemodialysis catheter insertion S/P angioplasty with stent Previous back surgery S/P cataract extraction Family History Mother CAD (coronary artery disease) Stroke Sister Hypertension Social History Smoking and tobacco/nicotine status: never used tobacco/nicotine Alcohol intake: never Substance/Drug Use: never Household members: spouse Marital status: service: Yes branch: [employer] Current occupational status: employed Current occupation: [employer] Current gender identity: Male Vitals/I&O/Wt Last Vital Signs Temp 97.8 F 05/06/24 09:57 Pulse 60 05/06/24 09:57 Resp 18 05/06/24 09:57 BP 110/61 05/06/24 09:57 Pulse Ox 89 L 05/06/24 09:57 O2 Del Method Room Air 05/06/24 09:57 Weight last 48 hrs Weight 94.347 kg Physical Exam 2 Narrative: The patient appears uncomfortable and short of breath sitting up using nasal cannula oxygen. Vital signs noted. Heart irregular irregular. HEENT normocephalic atraumatic. Lungs crackles bilaterally. Heart irregular regular positive S1-S2. Abdomen soft positive bowel sounds. Extremities bilateral edema of the legs. Patient has a left upper extremity AV fistula with good thrill and bruit. Data 05/06/24 10:16 05/06/24 10:16 Micro: Microbiology 05/06/24 10:18 Blood Culture - Preliminary Blood SPECIMEN COLLECTED 05/06/24 10:16 Blood Culture - Preliminary Blood SPECIMEN COLLECTED A&P Assessment and plan (1) End stage renal disease on dialysis: Plan 74-year-old gentleman history of A-fib hypothyroidism, anemia, ESRD, coronary artery disease, carotid artery disease. 1. Heart failure recent echo as of 2021 shows EF of 65% and only grade 1 out of 4 diastolic dysfunction please consider repeat echo 2. ESRD volume overload short of breath will do dialysis today. 3. Anemia evaluation give Epogen check iron studies check SPEP serum immunofixation. 4. Patient has a metabolic alkalosis and respiratory acidosis will monitor with dialysis. Given the fact that potassium is 4.5 and bicarbonate is 28 he is not uremic and blood pressure is on the low side we only do ultrafiltration today to see how this helps him. We can assess for full dialysis tomorrow. 5. DM control 6. consider cardiology evaluation 7. check pth 8. check venous doppler of legs to evaluate for dvt 9. hold amlodipine for hypotension The patient was seen and examined using audiovisual equipment with the aid of Dr. Willson. The patient consented to hemodialysis and to telehealth. Consult Attestations 2 Medical Necessity Statement: Volume overload, ESRD, shortness of breath, chest pain. Time Spent in Patient Care: Greater than 35 minutes (>than 50% of time spent in counselling and/or direct pt care on unit) . Coding Level of Care Code Acute Code for Chg Fwd Diagnoses End stage renal disease on dialysis N18.6; Z99.2
--- NOTE | 2024-05-06 11:47 | USCV_ITS ---
Eliazar Hogan Age: 74 Gender: M : 1950 Exam Date: 05/06/2024 13:50 Ordering Phys: Jm Machado MD Technologist: [place] [facility] [place]: chf BP: 132 / 78 HR: 71 Rhythm: Sinus Technical Quality: Adequate MEASUREMENTS (Male / Female) Normal Values 2D ECHO LV Diastolic Diameter PLAX 4.6 cm 4.2 - 5.9 / 3.9 - 5.3 cm IVS Diastolic Thickness 1.3 cm 0.6 - 1.0 / 0.6 - 0.9 cm IVS Systolic Thickness 1.9 cm LVPW Diastolic Thickness 1.4 cm 0.6 - 1.0 / 0.6 - 0.9 cm LVPW Systolic Thickness 1.9 cm LVOT Diameter 2.0 cm LV Ejection Fraction 2D Teich 66.2 % LV Ejection Fraction MOD 4C 74.2 % LV Ejection Fraction MOD 2C 73.0 % LV Ejection Fraction 2C AL 73.9 % LA Diameter 5.0 cm RA Systolic Volume 4C AL 73.0 ml RA Systolic Volume 4C MOD 71.6 ml Aorta at Sinotubular Diameter 3.4 cm M-MODE LA Ao Ratio MM 1.5 AV Cusp Separation MM 2.0 cm DOPPLER AV Peak Velocity 187.0 cm/s LVOT Peak Velocity 94.0 cm/s AV Area Cont Eq vti 1.7 cm squared AV Area Cont Eq pk 1.7 cm squared MV Peak Velocity 156.0 cm/s MV Area PHT 4.3 cm squared Mitral E to A Ratio 3.0 TV Peak Velocity 290.5 cm/s TR Peak Velocity 307.0 cm/s TR Peak Gradient 37.7 mmHg TV Peak E Velocity 141.0 cm/s PV Peak Velocity 111.0 cm/s FINDINGS Left Ventricle Normal left ventricular size, systolic function and wall thickness, with no regional wall motion abnormalities. Left ventricular ejection fraction is estimated at 55 %. Grade I/IV diastolic dysfunction (abnormal relaxation filling pattern), normal to mildly elevated filling pressures. Right Ventricle The right ventricle is normal in size and function. Right Atrium The right atrium is normal in size. Left Atrium Moderately increased left atrial size. Mitral Valve Thickened mitral valve. Moderate mitral annular calcification. No mitral valve stenosis. Moderate mitral valve regurgitation. Aortic Valve Severe aortic valve calcification. Mild aortic valve stenosis, mean gradient 6.5 mmHg, FREEMAN 1.7 cm squared. Trace aortic valve regurgitation. Tricuspid Valve [id number] tricuspid valve regurgitation. Pulmonic Valve Structurally normal pulmonic valve without significant stenosis. There is no pulmonic regurgitation. Pericardium Normal pericardium without effusion. Aorta Normal ascending aorta dimension. IVC The inferior vena cava appears normal. CONCLUSIONS Normal left ventricular size, systolic function and wall thickness, with no regional wall motion abnormalities. Left ventricular ejection fraction is estimated at 55 %. Grade I/IV diastolic dysfunction (abnormal relaxation filling pattern), normal to mildly elevated filling pressures. Moderately increased left atrial size. Thickened mitral valve. Moderate mitral annular calcification. No mitral valve stenosis. Moderate mitral valve regurgitation. Severe aortic valve calcification. Mild aortic valve stenosis, mean gradient 6.5 mmHg, FREEMAN 1.7 cm squared. Trace aortic valve regurgitation. There is no pericardial effusion. Right atrial pressure is around 5 mm of mercury. Kenya Ryan MD (Electronically Signed) Final Date: 06 May 2024 20:01 S
--- NOTE | 2024-05-06 11:47 | USCV_ITS ---
Eliazar Hogan Age: 74 Gender: M : 1950 Exam Date: 05/06/2024 12:06 Ordering Phys: Jm Machado MD Technologist: USR [place] [facility] [place]: edema HISTORY: Lower extremity edema. PROCEDURES: Venous duplex imaging was performed in bilateral lower extremities. The following venous structures were evaluated: common femoral vein, profunda vein, proximal portion of the greater saphenous vein, superficial femoral vein, and the popliteal vein. In addition, the posterior tibial and peroneal trunk were evaluated. FINDINGS: No evidence of DVT seen in any vessel visualized at this time. CONCLUSIONS No evidence of right lower extremity DVT. No evidence of left lower extremity DVT. David Gomez MD (Electronically Signed) Final Date: 07 May 2024 10:47 S
[2024-05-06 12:28] LABS: Iron 39 ug/dL (59-158); Uric Acid 4.4 mg/dL (3.4-7.0)
--- NOTE | 2024-05-06 12:29 | ECG_ITS ---
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1950 Requested By: Elyssa Matos Order Number: [id number] Ray MD: GUY LEARY Measurements Intervals [place] Rate: 59 P: 0 TX: 0 QRS: 7 QRSD: 105 T: 38 QT: 458 QTc: 455 Interpretive Statements ATRIAL FIBRILLATION WITH SLOW VENTRICULAR RESPONSE POSSIBLE ANTERIOR MYOCARDIAL INFARCTION , PROBABLY OLD [30 ms Q WAVE IN V3/V4, OR R < 0.2 mV IN V4] ABNORMAL RHYTHM ECG Compared to ECG 05/06/2024 10:05:51 No significant changes Electronically Signed On 05-07-2024 23:33:25 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
[2024-05-06 12:32] LABS: Hepatitis B Surface Antigen Non-Reactive (Nonreactive)
[2024-05-06 12:33] LABS: Hepatitis B Surface AB 24.2 (11.5-1000); Hepatitis C Virus Antibody Non-Reactive (Nonreactive)
--- NOTE | 2024-05-06 13:44 | CTR_ITS ---
PROCEDURE INFORMATION: Exam: CTA Chest With Contrast Exam date and time: 05/06/2024 5:57 PM Age: 74 years old Clinical indication: Shortness of breath; Additional info: Assess for pe TECHNIQUE: Imaging protocol: Computed tomographic angiography of the chest with contrast. Exam focused on the arteries. 3D rendering (Not supervised by radiologist): MIP and/or 3D reconstructed images were created by the technologist. Radiation optimization: All CT scans at this facility use at least one of these dose optimization techniques: automated exposure control; mA and/or kV adjustment per patient size (includes targeted exams where dose is matched to clinical indication); or iterative reconstruction. Contrast material: OMNIPAQUE 350; Contrast volume: 100 ml; Contrast route: INTRAVENOUS (IV); COMPARISON: CT chest wo con [id number] 05/06/2024 11:23 AM RADIATION DOSE METRICS: Total DLP (mGy-cm): 466.21 FINDINGS: Pulmonary arteries: The main pulmonary artery is dilated up to 3.3 cm in caliber. No evidence of pulmonary embolism. Aorta: Moderate aortic atherosclerotic calcifications. No aortic aneurysm. Calcifications are seen along the aortic valve leaflets. Tortuous thoracic aorta. Veins: Reflux of contrast into the IVC and hepatic veins. Lungs: Relaxation atelectasis in bilateral lower lobes. Scattered ill-defined ground-glass opacities throughout the lungs bilaterally most pronounced in bilateral lower lobes. Benign calcified granulomas. Pleural spaces: Trace bilateral pleural effusions. Heart: Moderate cardiomegaly. No pericardial effusion. Coronary arteries: Multivessel coronary artery calcifications. Lymph nodes: Unremarkable. No enlarged lymph nodes. Diaphragm: Small sliding hiatal hernia. Gallbladder and biliary ducts: Status post cholecystectomy. Spleen: Calcified splenic granulomas. Bones/joints: Partially imaged posterior thoracolumbar fusion hardware. No acute or aggressive osseous lesion. Soft tissues: Moderate bilateral gynecomastia. CT/CT angio chest PE protcl [id number] IMPRESSION: 1. No evidence of pulmonary embolism. 2. Dilated main pulmonary artery can be seen with pulmonary arterial hypertension. 3. Ill-defined ground-glass opacities throughout the lungs likely represent mild pulmonary edema. 4. Trace bilateral pleural effusions with adjacent relaxation atelectasis. 5. Reflux of contrast into the IVC/hepatic veins can be seen with tricuspid regurgitation and/or right heart failure. 6. Moderate cardiomegaly.
--- NOTE | 2024-05-06 13:50 | P.HP_ITS ---
Providers/Chief Complaint 2 Admitting Physician: Zachary Garcia Primary Care Provider: Raul Bautista MD Chief Complaint: SOB History of Present Illness Very pleasant 74-year-old woman with history of ESRD, on HD TTS, carotid stenosis, atrial fibrillation, CAD with multiple prior stents, HTN, diabetes presented to the hospital due to exertional intolerance with exertional dyspnea, with lower extremity edema. He had had his dialysis on Friday, but did state that he has dialysis was difficult, complicated by low blood pressure, making fluid removal challenging. He reports he has had some minimal chest pain, not worse than prior, without worsening, has had some mild dry cough. Review of Systems 2 Const: Denies: fever(s), chills, body aches or malaise Eyes: Denies: change in vision, eye discomfort or eye redness ENMT: Denies: throat pain, oral sores or ear or mastoid pain Card: Reports: swelling of feet/ankles and dyspnea on exertion; Denies: chest pain or pre-syncope Resp: Reports: dyspnea and non-productive cough; Denies: productive cough, pain on inspiration, change in phlegm color or hemoptysis GI: Denies: abdominal pain, nausea, vomiting, diarrhea, constipation, hematochezia or melena : Denies: flank pain, difficulty urinating, urinary frequency or hematuria Musc: Denies: back pain, joint swelling or joint redness Skin/Breast: Denies: rash or new lesions Neuro: Denies: headache(s), numbness in extremities, weakness in extremities, dizziness, confusion or seizure-like activity Endo: Denies: polyuria or polydipsia Jermain/Lymph: Denies: easy bleeding or tender lymph nodes All/Imm: Denies: urticaria or tongue swelling Medications/Allergies Home Medications Medication Instructions Recorded Confirmed Last Taken Type acetaminophen 500 mg tablet 1,000 mg PO Q6H PRN Pain 05/05/19 05/06/24 11/14/22 History (Tylenol Extra Strength) pantoprazole 40 mg tablet,delayed 40 mg PO QAM 05/05/19 05/06/24 05/06/24 History release terazosin 10 mg capsule 10 mg PO BID 05/05/19 05/06/24 05/06/24 History aspirin 81 mg tablet,delayed 81 mg PO QAM 09/01/20 05/06/24 05/06/24 History release clopidogrel 75 mg tablet 75 mg PO BEDTIME 09/01/20 05/06/24 05/06/24 History Diabetic Shoes #1 ea 09/13/20 05/06/24 12/05/21 Rx Diabetic Shoes #1 ea 10/25/20 05/06/24 12/05/21 Rx levothyroxine 25 mcg tablet 25 mcg PO QAM 11/09/20 05/06/24 05/06/24 History cetirizine 10 mg tablet (Zyrtec) 10 mg PO BID 11/14/20 05/06/24 05/06/24 History BIPAP and supplies #1 ea 04/09/21 05/06/24 12/05/21 Rx rosuvastatin 10 mg tablet (Crestor) 10 mg PO BEDTIME 09/20/21 05/06/24 05/05/24 History nitroglycerin 0.4 mg sublingual 0.4 mg sublingual Q5M PRN Chest 09/29/21 05/06/24 09/29/21 History tablet (Nitrostat) Pain 2 tabs sevelamer carbonate 800 mg tablet 1,600 mg PO BID 02/13/22 05/06/24 05/06/24 History isosorbide mononitrate 60 mg 60 mg PO BID #60 tabs 08/20/22 05/06/24 05/06/24 Rx tablet,extended release 24 hr furosemide 80 mg tablet (Lasix) 80 mg PO BID 11/14/22 05/06/24 05/06/24 History flash glucose scanning reader #1 ea 01/31/23 05/06/24 Unknown Rx (FreeStyle Inocencia 14 Day [place]) flash glucose sensor (FreeStyle #1 ea 01/31/23 05/06/24 Unknown Rx Inocencia 14 Day Sensor kit) carvedilol 25 mg tablet 12.5 mg PO BID 02/19/23 05/06/24 05/06/24 History docusate sodium 100 mg capsule 100 mg PO BID 02/28/23 05/06/24 05/05/24 History (Colace) folic acid 400 mcg tablet 0.4 mg PO DAILY 02/28/23 05/06/24 05/05/24 History allopurinol 300 mg tablet 300 mg PO DAILY 1105/06/24 05/06/24 History amlodipine 10 mg tablet 10 mg PO DAILY 03/17/23 05/06/24 05/06/24 History escitalopram oxalate 20 mg tablet 20 mg PO DAILY 03/17/23 05/06/24 05/06/24 History (Lexapro) cholecalciferol (vitamin D3) 50 50 mcg PO DAILY 03/26/24 05/06/24 Unknown History mcg (2,000 unit) capsule irbesartan 300 mg tablet 300 mg PO DAILY 03/26/24 05/06/24 05/06/24 History insulin glargine 100 unit/mL (3 24 unit SUBCUT BEDTIME 05/06/24 05/06/24 05/05/24 History mL) subcutaneous pen Allergies Allergy/AdvReac Type Severity Reaction Status Date / Time chicken derived Allergy Unknown ADR-Nausea Verified 04/27/24 02:12 morphine AdvReac Mild dizzy & Verified 04/27/24 02:12 nauseous PFSH Acute 2 PFSH: Medical History Atrial fibrillation with slow ventricular response Hypothyroidism Hemodialysis access site with arteriovenous graft Paget's disease Chronic kidney disease Chest pain NSTEMI (non-ST elevated myocardial infarction) Cardiac enzymes elevated Diabetes mellitus with diabetic polyneuropathy ESRD (end stage renal disease) CAD (coronary artery disease) Chronic kidney disease (CKD) stage G5/A1, glomerular filtration rate (GFR) less than or equal to 15 mL/min/1.73 square meter and albuminuria creatinine ratio less than 30 mg/g History of 2019 novel coronavirus disease (COVID-19) Acute kidney injury superimposed on CKD Congestive 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 Anemia CVA (cerebral vascular accident) Dyslipidemia Carotid stenosis, bilateral Essential hypertension Diabetes 1.5, managed as type 2 Chronic back pain KAITLYNN (obstructive sleep apnea) Surgical History History of esophagogastroduodenoscopy (EGD) 10 yrs ago Hx of cholecystectomy S/P hemodialysis catheter insertion S/P angioplasty with stent Previous back surgery S/P cataract extraction Family History Mother CAD (coronary artery disease) Stroke Sister Hypertension Social History Smoking and tobacco/nicotine status: never used tobacco/nicotine Alcohol intake: never Substance/Drug Use: never Household members: spouse Marital status: service: Yes branch: [employer] Current occupational status: employed 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 Current gender identity: Male Vitals/I&O/Wt Last Vital Signs Temp 97.8 F 05/06/24 09:57 Pulse 60 05/06/24 13:10 Resp 18 05/06/24 13:10 BP 126/72 05/06/24 13:10 Pulse Ox 93 05/06/24 13:10 O2 Del Method Room Air 05/06/24 13:03 Weight last 48 hrs Weight 94.347 kg Physical Exam 2 Const: COMMON NORMALS: patient oriented x3 and alert GENERAL APPEARANCE: c ooperative ORIENTATION/CONSCIOUSNESS: Yes awake HENMT: COMMON NORMALS: oropharynx normal Neck/C-Spine: COMMON NORMALS: no JVD Resp: COMMON NORMALS: normal respiratory effort and clear to auscultation bilaterally AUSCULTATION: clear to auscultation bilaterally Cardio: COMMON NORMALS: no JVD, regular rhythm, S1 normal heart sound present, S2 normal heart sound present and No murmurs present (Cardio) RATE: b radycardic RHYTHM: regular rhythm HEART SOUNDS: S1 normal heart sound present and S2 normal heart sound present GI: COMMON NORMALS: Normal to inspection, nondistended, normoactive bowel sounds present, Soft to palpation and non-tender PALPATION: Yes Soft to palpation Extremity: COMMON NORMALS: no joint enlargement GENERAL: Yes edema Neuro: COMMON NORMALS: patient oriented x3 and moves all extremities S ENSORIUM/ORIENTATION: Yes alert Skin: COMMON NORMALS: no rashes or lesions noted GENERAL SKIN EXAM: no rashes or lesions noted Data 05/06/24 10:16 05/06/24 10:16 Micro: Microbiology 05/06/24 10:18 Blood Culture - Preliminary Blood SPECIMEN COLLECTED 05/06/24 10:16 Blood Culture - Preliminary Blood SPECIMEN COLLECTED A&P Assessment and plan (1) Hypoxemia: Presented to ER with dyspnea, exertional intolerance with dyspnea on exertion, with new hypoxia, at home oxygen saturation in the low 80s found by EMS, with 2 L of oxygen coming up to low 90s. . 89% in ER ABG pO2 61 on 2 L nasal cannula. Not normally oxygen apart from at nighttime. Reviewed vitals, CBC, ABG, CMP, magnesium, chest x-ray, chest CT, EKG, ER provider note, discussed with ER provider. Findings of cardiomegaly and central vascular congestion on chest imaging. With lower extremity edema. He states dialysis on Friday was complicated by some low blood pressures, seems may be some difficulty with drawing fluid. Appears to be in decompensated CHF. Is being seen by nephrology, will be having dialysis today. Additionally with bradycardia, new hypoxemic, dry cough, lower extremity edema, pending assessment with venous duplex, will assess additionally as per discussion with him with CTA chest for any PE. (2) Diastolic CHF: Additional dialysis today. No signs TTE. Complete troponin EKG series. Noted baseline troponin elevation 151. Has had minimal chest discomfort recently with exertion. Noted minimal sinus bradycardia 60 bpm. On carvedilol. Monitor intake and output. Fluid restriction 1200 mL a day. Cardiac diet. Will switch Lasix to 80 mg IV twice daily, monitor electrolytes, with risk of deficiency. (3) Dyspnea: As above. Additionally atelectasis noted on CT chest. Add incentive spirometer. Pending respiratory viral panel, follow-up. (4) Atrial fibrillation with slow ventricular response: With history of atrial fibrillation, on aspirin and Plavix as per review of cardiology note. Continue carvedilol. Monitor on telemetry. Check magnesium. Plan Anemia: Hemoglobin 8, MCV reviewed 93.9. Check iron studies. Check Hemoccult. Diabetes: Continue Lantus, monitor POC glucose. Sliding scale insulin. Consult carbohydrate diet. CAD with multiple prior stents: Continue aspirin, Plavix, carvedilol, statin. HTN: Continue carvedilol, will continue amlodipine 5 mg for now given need for dialysis, diuresis. Continue isosorbide. Hold ARB for the time being. Hypothyroidism: Continue levothyroxine. Attestations 2 Medical Necessity Statement*: Admission over 2 midnights anticipated for assessment management of acute decompensated diastolic CHF with new hypoxia, with fluid overload and gentleman with ESRD with difficulties with dialysis. and High MDM includes amount and/or complexity of data reviewed/ordered [ previous or external records, resulted lab(s)/test(s), ordered lab(s)/test(s) and other healthcare professional discussion] as documented Diagnoses Hypoxemia R09.02 Diastolic CHF I50.30 Dyspnea R06.00 Atrial fibrillation with slow ventricular response I48.91
[2024-05-06] MEDS: heparin, porcine 1,000 unit/mL INJ 10 mL 1000 UNIT IV ×2 (14:25→15:00)
[2024-05-06] MEDS: albumin 12.5 GM/50 ML VIAL IV (14:25)
[2024-05-06 14:50] LABS: Troponin 5 2HR Delta -1.9 ABS# (0-10)
[2024-05-06 14:52] LABS: Troponin 5 2HR 149.1 ng/L (0-15)
[2024-05-06 15:00] LABS: Adenovirus Not Detected (NOT DETECT); Chlamydia Pneumoniae Not Detected (NOT DETECT); Coronavirus 229E,HKU1,NL63,OC4 Not Detected (NOT DETECT); Human Metapneumovirus Not Detected (NOT DETECT); Human Rhinovirus/Enterovirus Not Detected (NOT DETECT); Influenza A Not Detected (NOT DETECT); Influenza A H1 Not Detected (NOT DETECT); Influenza A H1-2009 Not Detected (NOT DETECT); Influenza A H3 Not Detected (NOT DETECT); Influenza B Not Detected (NOT DETECT); Mycoplasma Pneumoniae Not Detected (NOT DETECT); Parainfluenza Virus Type 1 Not Detected (NOT DETECT); Parainfluenza Virus Type 2 Not Detected (NOT DETECT); Parainfluenza Virus Type 3 Not Detected (NOT DETECT); Parainfluenza Virus Type 4 Not Detected (NOT DETECT); Respiratory Syncytial Virus A Not Detected (NOT DETECT); Respiratory Syncytial Virus B Not Detected (NOT DETECT); SARS-COV-2 Not Detected (NOT DETECT)
[2024-05-06] MEDS: enoxaparin 30 mg/0.3 mL Syringe SUBCUT (16:09)
[2024-05-06 17:27] LABS: Troponin 5 6HR 167.5 ng/L (0-15); Troponin 5 6HR Delta 16.5 ng/L (0-12)
--- NOTE | 2024-05-06 17:35 | ECG_ITS ---
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
[2024-05-06] MEDS: iohexol 350 mg/mL 500 mL Btl (per mL) IV (18:02)
[2024-05-06] MEDS: terazosin 5 mg Capsule 10 MG PO (18:27)
[2024-05-06] MEDS: sevelamer 800 mg Tablet 1600 MG PO (18:27)
[2024-05-06] MEDS: isosorbide mononitrate ER 60 mg Tablet PO (18:27)
[2024-05-06] MEDS: carvedilol 12.5 mg Tablet PO (18:27)
[2024-05-06] MEDS: insulin glargine 100 units/1 mL 24 UNIT SUBCUT (20:30)
[2024-05-06] MEDS: atorvastatin 40 mg Tablet PO (20:30)
[2024-05-06] MEDS: FUROsemide 10 mg/mL SDV 10mL 80 MG IVP (20:30)
[2024-05-06] MEDS: clopidogrel 75 mg Tablet PO (20:30)
[2024-05-07] VITALS (11 sets, daily range): BP systolic 115–184; BP diastolic 61–77; PULSE 50–70; RESP 14–19; TEMP 36.5–36.9; O2SAT 90–93
[2024-05-07 02:13] LABS: Glucose Point of Care 67 mg/dL (70-110)
--- NOTE | 2024-05-07 02:22 | PC.NURSE ---
THIS RN ANSWERED PTS CALL LIGHT AND PT ASKED IF THIS RN COULD CHECK HIS BLOOD SUGAR BECAUSE ITS EITHER HIGH OR LOW, I FEEL WEIRD. THIS RN OBTAINED A BLOOD SUGAR OF 67. THIS RN GAVE PT ORANGE JUICE. PT DRANK ORANGE JUICE. THIS RN WILL CONTINUE TO MONITOR UNTIL END OF THIS RNS SHIFT.
[2024-05-07] MEDS: levothyroxine 25 mcg Tablet PO (05:14)
[2024-05-07] MEDS: pantoprazole DR 40 mg Tablet PO (05:14)
[2024-05-07] MEDS: aspirin 81 mg EC Tablet PO (05:14)
[2024-05-07 05:52] LABS: Basophils # 0.1 10^3/uL (0.0-0.1); Basophils % 0.6 %; Eosinophils # 0.3 10^3/uL (0.0-0.8); Eosinophils % 2.8 %; Hematocrit 25.1 % (37-53); Lymphocytes # 0.8 10^3/uL (0.8-4.8); Lymphocytes % 8.3 %; Mean Corpuscular HGB Conc 31.1 g/dL (30-55); Mean Corpuscular Hemoglobin 29.2 pg (27-33); Mean Platelet Volume 8.9 fL (7.4-10.4); Monocytes # 0.8 10^3/uL (0.2-0.9); Monocytes % 8.2 %; Neutrophils # 8.01 10^3/uL (1.8-7.7); Neutrophils % 79.5 %; Nucleated Red Blood Cells % 0 %; Platelet Count 232 10^3/cmm (157-399); Red Blood Count 2.67 10^6/uL (3.85-5.65); Red Cell Distribution Width 14.4 % (12.1-15.1); White Blood Count 10.06 10^3/uL (3.29-11.43)
[2024-05-07 06:12] LABS: Alanine Aminotransferase 7 U/L (0-41); Albumin Level 3.4 g/dL (3.5-5.2); Alkaline Phosphatase 238 U/L (40-130); Anion Gap 17.6 (5-19); Aspartate Amino Transferase 6 U/L (0-40); Blood Urea Nitrogen 44 mg/dL (8-23); Calcium 8.7 mg/dL (8.5-10.5); Carbon Dioxide 29 mmol/L (22-29); Chloride 97 mmol/L (98-107); Creatinine Clr Calc Pharmacy 9.1838; Globulin 3.2 g/dL (1.3-4.6); Glucose 68 mg/dL (65-115); Iron 39 ug/dL (59-158); Osmolality Calculated 297 mOsm/kg (285-295); Percent Saturation 26.3 % (20-50); Phosphorus 4.9 mg/dL (2.5-4.5); Potassium 4.6 mmol/L (3.5-5.1); Sodium 139 mmol/L (136-145); Total Bilirubin 0.4 mg/dL (0.15-1.2); Total Iron Binding Capacity 148 mcg/dl; Total Protein 6.6 g/dL (6.6-8.7); Unsaturated Iron Binding 109 ug/dL (112-347)
[2024-05-07 06:13] LABS: Magnesium 2.2 mg/dL (1.7-2.3)
[2024-05-07 06:26] LABS: 25 Hydroxy Vitamin D 40 ng/mL (30-100)
[2024-05-07 06:32] LABS: Calcium 8.6 mg/dL (8.5-10.5); Parathyroid Hormone 307.1 pg/mL (15-65)
[2024-05-07 06:36] LABS: Ferritin 1959 ng/mL (30-400)
[2024-05-07 06:38] LABS: PROTEIN, TOTAL 6.6 g/dL (6.1-8.1)
--- NOTE | 2024-05-07 07:53 | P.PN_ITS ---
Subjective 2 Subjective: He states he is still having some mild but persistent central chest discomfort, pressure-like as if the weight is on his chest. Some mild cough. Vitals/I&O/Wt Last Vital Signs Temp 97.7 F 05/07/24 03:51 Pulse 65 05/07/24 03:51 Resp 16 05/07/24 03:51 BP 132/63 05/07/24 03:51 Pulse Ox 90 05/07/24 03:51 O2 Del Method Room Air 05/06/24 16:37 O2 Flow Rate 3 05/07/24 03:51 05/06/24 05/07/24 05/07/24 22:59 06:59 14:59 Intake Total 1190 / 1190 240 / 1430 Output Total 2502 / 2502 Balance -1312 / -1312 240 / -1072 Weight last 48 hrs Weight 96.87 kg Weight 95.6 kg Weight 97.341 kg Weight 94.347 kg Physical Exam 2 Const: COMMON NORMALS: patient oriented x3 and alert GENERAL APPEARANCE: c ooperative ORIENTATION/CONSCIOUSNESS: Yes awake HENMT: COMMON NORMALS: oropharynx normal Neck/C-Spine: COMMON NORMALS: no JVD Resp: COMMON NORMALS: normal respiratory effort and clear to auscultation bilaterally AUSCULTATION: clear to auscultation bilaterally Cardio: COMMON NORMALS: no JVD, regular rhythm, S1 normal heart sound present, S2 normal heart sound present and No murmurs present (Cardio) RATE: b radycardic RHYTHM: regular rhythm HEART SOUNDS: S1 normal heart sound present and S2 normal heart sound present GI: COMMON NORMALS: Normal to inspection, nondistended, normoactive bowel sounds present, Soft to palpation and non-tender PALPATION: Yes Soft to palpation Extremity: COMMON NORMALS: no joint enlargement GENERAL: Yes edema Neuro: COMMON NORMALS: patient oriented x3 and moves all extremities S ENSORIUM/ORIENTATION: Yes alert Skin: COMMON NORMALS: no rashes or lesions noted GENERAL SKIN EXAM: no rashes or lesions noted Data 05/07/24 05:12 05/07/24 05:12 Micro: Microbiology 05/06/24 10:18 Blood Culture - Preliminary Blood SPECIMEN COLLECTED 05/06/24 10:16 Blood Culture - Preliminary Blood SPECIMEN COLLECTED A&P Assessment and plan (1) Chest pressure: He states he is still having some mild but persistent central chest discomfort, pressure-like as if the weight is on his chest. With moderate troponin elevation, slightly higher at 6 hours with positive delta up to 167, although in the setting of ESRD, hypoxic. But does have extensive history of coronary disease. Reviewed CTA, no PE. Some findings suggestive of underlying pulmonary hypertension, possible right heart failure. Reviewed echocardiogram, grade 1 diastolic dysfunction, normal EF, no RWMA. Moderately increased left atrial size. Moderate MVR. Severe aortic valve calcification with mild AVS. Trace AVR. Discussed with him further obtaining consultation with cardiology given persistence of symptoms, troponin abnormalities, CHF on presentation, cardiac history. Discussed with surgical sales representative. Appreciate consultation. (2) Hypoxemia: With some mild improvement, but this morning still hypoxic having to go back on oxygen. He tells me nephrology possibly planning for additional dialysis today. Monitor oxygenation. Continue to wean down oxygen as tolerating. Reassess volume status. Reviewed CTA. Reviewed TTE. CT with some ill-defined groundglass opacities likely presenting pulmonary edema. Trace pleural effusions. He tells me nephrology considering additional dialysis for today. Continue IV Lasix 80 mg every 12 hours, monitor intake and output, reassess chemistry with risk of electrolyte deficiency with IV Lasix. Reviewed CMP, intake and output. Reviewed CBC. Noted some persistent slight worsening of anemia, hemoglobin 7.8. Hemoccult requested, reviewed, so far not collected. He does report constipation. Reviewed respiratory viral panel, unremarkable. (3) Diastolic CHF: As above. Reviewed TTE. Noted baseline troponin elevation 151. Has had minimal chest discomfort recently with exertion. Noted minimal sinus bradycardia 60 bpm. On carvedilol. Monitor intake and output. Fluid restriction 1200 mL a day. Cardiac diet. Lasix to 80 mg IV twice daily, monitor electrolytes, with risk of deficiency. (4) Dyspnea: Continue treatment of diastolic congestive heart failure, pulm edema as above. As above. Additionally atelectasis noted on CT chest. Add incentive spirometer. Pending respiratory viral panel, follow-up. (5) Atrial fibrillation with slow ventricular response: With history of atrial fibrillation, on aspirin and Plavix as per review of cardiology note. Continue carvedilol. Monitor on telemetry. Reviewed magnesium. Plan Anemia: Hemoglobin 7.8, reviewed iron studies. Not iron deficient, iron decreased from prior study. Check Hemoccult. Diabetes: Continue Lantus, monitor POC glucose. Sliding scale insulin. Consult carbohydrate diet. CAD with multiple prior stents: Continue aspirin, Plavix, carvedilol, statin. HTN: Continue carvedilol, will continue amlodipine 5 mg for now given need for dialysis, diuresis. Continue isosorbide. Hold ARB for the time being. Hypothyroidism: Continue levothyroxine. Attestations 2 Medical Necessity Statement*: Continue admission for assessment and management of decompensated diastolic heart failure and abdomen with ESRD, dialysis dependent, persistent mild chest pressure with extensive history of coronary disease and intervention. and High MDM includes amount and/or complexity of data reviewed/ordered [ resulted lab(s)/test(s), ordered lab(s)/test(s) and other healthcare professional discussion] and described risk of complication, morbidity or mortality of management as documented Diagnoses Chest pressure R07.89 Hypoxemia R09.02 Diastolic CHF I50.30 Dyspnea R06.00 Atrial fibrillation with slow ventricular response I48.91
[2024-05-07] MEDS: FUROsemide 10 mg/mL SDV 10mL 80 MG IVP ×2 (09:14→21:29)
[2024-05-07] MEDS: sevelamer 800 mg Tablet 1600 MG PO ×2 (09:14→17:02)
[2024-05-07] MEDS: escitalopram 10 mg Tablet 20 MG PO (09:14)
[2024-05-07] MEDS: isosorbide mononitrate ER 60 mg Tablet PO ×2 (09:14→17:03)
[2024-05-07] MEDS: allopurinol 300 mg Tablet PO (09:14)
[2024-05-07] MEDS: terazosin 5 mg Capsule 10 MG PO ×2 (09:17→17:04)
--- NOTE | 2024-05-07 10:17 | PM.CONSULT ---
Providers/Reason For Consult Consulting Physician/Specialty*: Dr Earline Ryan, cardiology Reason for Consult*: Exertional dyspnea, atrial fibrillation, troponin elevation Requesting Physician: Dr. Garcia Attending Physician: Zachary Garcia Primary Care Provider: Raul Bautista MD History of Present Illness History of Present Illness Eliazar Hogan is a 74 year old male patient with past medical history of atrial fibrillation, hypertension, CAD, dyslipidemia, carotid artery stenosis, ESRD on HD. He was admitted to the hospital 05/06/2024 with worsening exertional dyspnea, he had been attending dialysis treatments regularly. Troponin trend [id number]. EKG showed atrial fibrillation with good ventricular rate control. Echocardiogram 05/06/2024 showed LVEF 55% grade 1 diastolic dysfunction, moderate mitral regurgitation, mild aortic stenosis (mean gradient 6.5 mmHg, FREEMAN 1.7 cm?). Hemoglobin 7.8, BUN 44, creatinine 7.5, potassium 4.6, mag 2.2. He notes chest pressure began 2 weeks ago when he started becoming short of breath, it is present now as well. He notes his weight at dialysis had been slowly increasing, he cannot recall what his weight was. Last echocardiogram 08/19/2022 showed patent stents in the RCA and LAD, distal LAD stenosis 50%, second diagonal stenosis 70% medical management advised. He underwent ultrafiltration yesterday, plan for possible full dialysis today. Review of Systems Const: Denies: fever(s), chills, change in weight, fatigue or diaphoresis Eyes: Denies: change in vision ENMT: Denies: epistaxis Card: Reports: chest pain (pressure); Denies: palpitations, irregular heart rhythm, edema, syncope, pre-syncope, dyspnea on exertion, orthopnea or leg pain with exertion Resp: Denies: dyspnea, productive cough or wheezing GI: Denies: nausea, vomiting, hematemesis, hematochezia or melena : Denies: hematuria Musc: Denies: extremity swelling Jermain/Lymph: Denies: easy bruising or easy bleeding Medications/Allergies Home Medications Medication Instructions Recorded Confirmed Last Taken Type acetaminophen 500 mg tablet 1,000 mg PO Q6H PRN Pain 05/05/19 05/06/24 11/14/22 History (Tylenol Extra Strength) pantoprazole 40 mg tablet,delayed 40 mg PO QAM 05/05/19 05/06/24 05/06/24 History release terazosin 10 mg capsule 10 mg PO BID 05/05/19 05/06/24 05/06/24 History aspirin 81 mg tablet,delayed 81 mg PO QAM 09/01/20 05/06/24 05/06/24 History release clopidogrel 75 mg tablet 75 mg PO BEDTIME 09/01/20 05/06/24 05/06/24 History Diabetic Shoes #1 ea 09/13/20 05/06/24 12/05/21 Rx Diabetic Shoes #1 ea 10/25/20 05/06/24 12/05/21 Rx levothyroxine 25 mcg tablet 25 mcg PO QAM 11/09/20 05/06/24 05/06/24 History cetirizine 10 mg tablet (Zyrtec) 10 mg PO BID 11/14/20 05/06/24 05/06/24 History BIPAP and supplies #1 ea 04/09/21 05/06/24 12/05/21 Rx rosuvastatin 10 mg tablet (Crestor) 10 mg PO BEDTIME 09/20/21 05/06/24 05/05/24 History nitroglycerin 0.4 mg sublingual 0.4 mg sublingual Q5M PRN Chest 09/29/21 05/06/24 09/29/21 History tablet (Nitrostat) Pain 2 tabs sevelamer carbonate 800 mg tablet 1,600 mg PO BID 02/13/22 05/06/24 05/06/24 History isosorbide mononitrate 60 mg 60 mg PO BID #60 tabs 08/20/22 05/06/24 05/06/24 Rx tablet,extended release 24 hr furosemide 80 mg tablet (Lasix) 80 mg PO BID 11/14/22 05/06/24 05/06/24 History flash glucose scanning reader #1 ea 01/31/23 05/06/24 Unknown Rx (FreeStyle Inocencia 14 Day [place]) flash glucose sensor (FreeStyle #1 ea 01/31/23 05/06/24 Unknown Rx Inocencia 14 Day Sensor kit) carvedilol 25 mg tablet 12.5 mg PO BID 02/19/23 05/06/24 05/06/24 History docusate sodium 100 mg capsule 100 mg PO BID 11/02/1005/06/24 05/05/24 History (Colace) folic acid 400 mcg tablet 0.4 mg PO DAILY 02/28/23 05/06/24 05/05/24 History allopurinol 300 mg tablet 300 mg PO DAILY 03/17/23 05/06/24 05/06/24 History amlodipine 10 mg tablet 10 mg PO DAILY 03/17/23 05/06/24 05/06/24 History escitalopram oxalate 20 mg tablet 20 mg PO DAILY 03/17/23 05/06/24 05/06/24 History (Lexapro) cholecalciferol (vitamin D3) 50 50 mcg PO DAILY 03/26/24 05/06/24 Unknown History mcg (2,000 unit) capsule irbesartan 300 mg tablet 300 mg PO DAILY 03/26/24 05/06/24 05/06/24 History insulin glargine 100 unit/mL (3 24 unit SUBCUT BEDTIME 05/06/24 05/06/24 05/05/24 History mL) subcutaneous pen Allergies Allergy/AdvReac Type Severity Reaction Status Date / Time chicken derived Allergy Unknown ADR-Nausea Verified 04/27/24 02:12 morphine AdvReac Mild dizzy & Verified 04/27/24 02:12 nauseous Current Medications Generic Name Dose Route Start Last Admin Trade Name Sethq PRN Reason Stop Dose Admin Allopurinol 300 mg 05/07/24 09:00 05/07/24 09:14 Allopurinol 300 Mg Tablet PO 300 mg DAILY SAYRA Administration Aspirin 81 mg 05/07/24 06:00 05/07/24 05:14 Aspirin 81 Mg Ec Tablet PO 81 mg QAM SAYRA Administration Atorvastatin Calcium 40 mg 05/06/24 21:00 05/06/24 20:30 Atorvastatin 40 Mg Tablet PO 40 mg BEDTIME SAYRA Administration Carvedilol 12.5 mg 05/06/24 18:00 05/06/24 18:27 Carvedilol 12.5 Mg Tablet PO 12.5 mg BID SAYRA Administration Clopidogrel Bisulfate 75 mg 05/06/24 21:00 05/06/24 20:30 Clopidogrel 75 Mg Tablet PO 75 mg BEDTIME SAYRA Administration Enoxaparin Sodium 30 mg 05/06/24 14:15 05/06/24 16:09 Enoxaparin 30 Mg/0.3 Ml Syringe SUBCUT 30 mg Q24H SAYRA Administration Escitalopram Oxalate 20 mg 05/07/24 09:00 05/07/24 09:14 Escitalopram 10 Mg Tablet PO 20 mg DAILY SAYRA Administration Furosemide 80 mg 05/06/24 21:00 05/07/24 09:14 Furosemide 10 Mg/Ml Sdv 10ml IVP 80 mg Q12H SAYRA Administration Insulin Glargine 24 unit 05/06/24 21:00 05/06/24 20:30 Insulin Glargine 100 Units/1 Ml SUBCUT 24 unit BEDTIME SAYRA Administration Isosorbide Mononitrate 60 mg 05/06/24 18:00 05/07/24 09:14 Isosorbide Mononitrate Er 60 Mg Tablet PO 60 mg BID SAYRA Administration Levothyroxine Sodium 25 mcg 05/07/24 06:00 05/07/24 05:14 Levothyroxine 25 Mcg Tablet PO 25 mcg QAM SAYRA Administration Pantoprazole Sodium 40 mg 05/07/24 06:00 05/07/24 05:[address] 40 Mg Tablet PO 40 mg QAM SAYRA Administration Sevelamer Carbonate 1,600 mg 05/06/24 18:00 05/07/24 09:14 Sevelamer 800 Mg Tablet PO 1,600 mg BID SAYRA Administration Terazosin HCl 10 mg 05/06/24 18:00 05/07/24 09:17 Terazosin 5 Mg Capsule PO 10 mg BID SAYRA Administration PFSH Acute PFSH: Medical History Atrial fibrillation with slow ventricular response Hypothyroidism Hemodialysis access site with arteriovenous graft Paget's disease Chronic kidney disease Chest pain NSTEMI (non-ST elevated myocardial infarction) Cardiac enzymes elevated Diabetes mellitus with diabetic polyneuropathy ESRD (end stage renal disease) CAD (coronary artery disease) Chronic kidney disease (CKD) stage G5/A1, glomerular filtration rate (GFR) less than or equal to 15 mL/min/1.73 square meter and albuminuria creatinine ratio less than 30 mg/g History of 2019 novel coronavirus disease (COVID-19) Acute kidney injury superimposed on CKD Congestive 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 Anemia CVA (cerebral vascular accident) Dyslipidemia Carotid stenosis, bilateral Essential hypertension Diabetes 1.5, managed as type 2 Chronic back pain KAITLYNN (obstructive sleep apnea) Surgical History History of esophagogastroduodenoscopy (EGD) 10 yrs ago Hx of cholecystectomy S/P hemodialysis catheter insertion S/P angioplasty with stent Previous back surgery S/P cataract extraction Family History Mother CAD (coronary artery disease) Stroke Sister Hypertension Social History Smoking and tobacco/nicotine status: never used tobacco/nicotine Alcohol intake: never Substance/Drug Use: never Household members: spouse Marital status: service: Yes branch: [employer] Current occupational status: employed Current occupation: [employer] Current gender identity: Male Vitals/I&O/Wt Last Vital Signs Temp 98.1 F 05/07/24 07:54 Pulse 70 05/07/24 07:54 Resp 16 05/07/24 07:54 BP 164/63 05/07/24 07:54 Pulse Ox 90 05/07/24 07:54 O2 Del Method Nasal Cannula 05/07/24 07:54 O2 Flow Rate 3 05/07/24 03:51 05/06/24 05/07/24 05/07/24 22:59 06:59 14:59 Intake Total 1190 / 1430 240 / 1430 360 / 360 Output Total 2502 / 2502 Balance -1312 / -1072 240 / -1072 360 / 360 Weight last 48 hrs Weight 213 lb 9 oz Weight 210 lb 12.191 oz Weight 214 lb 9.6 oz Weight 208 lb Physical Exam Const: COMMON NORMALS: no acute distress and patient oriented x3 GENERAL APPEARANCE: cooperative and comfortable ORIENTATION/CONSCIOUSNESS: Yes awake, Yes oriented to person, Yes oriented to place and Yes oriented to time Chest: COMMONS NORMALS: normal inspection of the chest and normal palpation of entire chest wall CHEST: Yes Symmetrical chest wall rise Resp: COMMON NORMALS: normal respiratory effort, No retractions and No use of accessory muscles EFFORT & INSPECTION: Yes symmetric chest movement AUSCULTATION: crackles (bases) Laterality: posterior Cardio: COMMON NORMALS: regular rate, S1 normal heart sound present, S2 normal heart sound present, No gallops present (Cardio), No clicks present (Cardio), No murmurs present (Cardio) and No rub (Cardio) RATE: regular rate RHYTHM: abnormal rhythm irregularly irregular HEART SOUNDS: S1 normal heart sound present and S2 normal heart sound present PERIPHERAL PULSES: radial pulses present Extremity: COMMON NORMALS: no pedal edema Neuro: COMMON NORMALS: patient oriented x3 and moves all extremities SENSORIUM/ORIENTATION: Yes oriented to person, Yes oriented to place and Yes oriented to time Data 05/07/24 05:12 05/07/24 05:12 Micro: Microbiology 05/06/24 10:18 Blood Culture - Preliminary Blood SPECIMEN COLLECTED 05/06/24 10:16 Blood Culture - Preliminary Blood SPECIMEN COLLECTED A&P Assessment and plan (1) CAD (coronary artery disease): He does not have any worsening of the chest pressure or shortness of breath with exertion. His troponin is chronically elevated, usually in the 130s to 140s. Hemoglobin 7.8 today, decreased from February. Will observe symptoms today, especially after dialysis. Chest pressure appears to be more volume related than ischemic at this point. He is receiving furosemide 80 mg IV twice daily. Qualifiers: Associated angina: without angina Coronary Disease-Associated Artery/Lesion type: [place] artery [place] vs. transplanted heart: [place] heart Qualified Code(s): I25.10 - Atherosclerotic heart disease of [place] coronary artery without angina pectoris (2) Dyspnea on exertion: (3) Diastolic CHF: (4) Atrial fibrillation with controlled ventricular rate: Continue carvedilol 12.5mg BID, aspirin, Plavix, isosorbide mononitrate 60 mg twice a day, statin, agree with reducing amlodipine to 5 mg daily. (5) End stage renal disease on dialysis: Coding Level of Care Code Acute Code for [facility] Diagnoses Coronary artery disease involving [place] coronary artery of [place] heart without angina pectoris I25.10 Associated angina: without angina Coronary Disease-Associated Artery/Lesion type: [place] artery [place] vs. transplanted heart: [place] heart Dyspnea on exertion R06.00 Diastolic CHF I50.30 Atrial fibrillation with controlled ventricular rate I48.91 End stage renal disease on dialysis N18.6; Z99.2
--- NOTE | 2024-05-07 11:15 | P.PN_ITS ---
Subjective 2 Subjective: getting hd BP high Medications: Reviewed: Yes Vitals/I&O/Wt Last Vital Signs Temp 98.1 F 05/07/24 07:54 Pulse 70 05/07/24 07:54 Resp 16 05/07/24 07:54 BP 164/63 05/07/24 07:54 Pulse Ox 90 05/07/24 07:54 O2 Del Method Nasal Cannula 05/07/24 07:54 O2 Flow Rate 3 05/07/24 03:51 05/06/24 05/07/24 05/07/24 22:59 06:59 14:59 Intake Total 1190 / 1190 240 / 1430 360 / 360 Output Total 2502 / 2502 Balance -1312 / -1312 240 / -1072 360 / 360 Weight last 48 hrs Weight 96.87 kg Weight 95.6 kg Weight 97.341 kg Weight 94.347 kg Physical Exam 2 Narrative: AWAKE ,A LERT NO DISTRESS S1S2 RRR PER REPORT LUNGS CLEAR HUNG per report NO EDEMA Data 05/07/24 05:12 05/07/24 05:12 Micro: Microbiology 05/06/24 10:18 Blood Culture - Preliminary Blood NEGATIVE TO DATE 05/06/24 10:16 Blood Culture - Preliminary Blood NEGATIVE TO DATE A&P Assessment and plan (1) End stage renal disease on dialysis: Plan 74-year-old gentleman history of A-fib hypothyroidism, anemia, ESRD, coronary artery disease, carotid artery disease. 1. CHF with voume overlaod , last EF 65 % 2. ESRD : volume overload short of breath , HD today 3. Anemia: Epogen ordered , check iron studies check SPEP serum immunofixation. 4. met acidosis , improved 5. LE edema , consider venous doppler 9. Hypotension , holding amlodipine The patient was seen and examined using audiovisual equipment with the aid of Dr. Willson. The patient consented to hemodialysis and to telehealth. Attestations 2 Medical Necessity Statement*: per medicine team Coding Level of Care Code Acute Code for [facility] Diagnoses End stage renal disease on dialysis N18.6; Z99.2
--- NOTE | 2024-05-07 11:54 | PC.SOCIAL ---
IMM updated IMM dated and initialed, copy placed in chart and given to patient
[2024-05-07] MEDS: carvedilol 12.5 mg Tablet PO (13:48)
[2024-05-07] MEDS: enoxaparin 30 mg/0.3 mL Syringe SUBCUT (13:48)
[2024-05-07] MEDS: amlodipine 5 mg Tablet PO (13:48)
--- NOTE | 2024-05-07 13:53 | PC.NURSE ---
BP medications held due to dialysis this AM. Administered now.
[2024-05-07] MEDS: clopidogrel 75 mg Tablet PO (21:30)
[2024-05-07] MEDS: atorvastatin 40 mg Tablet PO (21:30)
[2024-05-07] MEDS: insulin glargine 100 units/1 mL 24 UNIT SUBCUT (22:38)
[2024-05-07 23:09] LABS: ABNORMAL PROTEIN BAND 1 0.1 g/dL (NONE DETECTED); ALBUMIN 3.4 g/dL (3.8-4.8); ALPHA 1 GLOBULIN 0.5 g/dL (0.2-0.3); BETA 1 GLOBULIN 0.4 g/dL (0.4-0.6); BETA 2 GLOBULIN 0.6 g/dL (0.2-0.5); GAMMA GLOBULIN 0.8 g/dL (0.8-1.7)
[2024-05-08] VITALS (8 sets, daily range): BP systolic 119–146; BP diastolic 57–83; PULSE 57–99; RESP 16–18; TEMP 36.6–37.1; O2SAT 91–92
[2024-05-08 03:41] LABS: Basophils # 0.1 10^3/uL (0.0-0.1); Basophils % 0.9 %; Eosinophils # 0.4 10^3/uL (0.0-0.8); Eosinophils % 3.9 %; Lymphocytes # 1.5 10^3/uL (0.8-4.8); Lymphocytes % 16.5 %; Mean Corpuscular HGB Conc 30.4 g/dL (30-55); Mean Corpuscular Hemoglobin 29.3 pg (27-33); Mean Corpuscular Volume 96.3 fl (82-101); Mean Platelet Volume 9.3 fL (7.4-10.4); Monocytes # 0.8 10^3/uL (0.2-0.9); Monocytes % 8.6 %; Neutrophils # 6.22 10^3/uL (1.8-7.7); Neutrophils % 69.1 %; Nucleated Red Blood Cells % 0 %; Platelet Count 256 10^3/cmm (157-399); Red Cell Distribution Width 14.4 % (12.1-15.1); White Blood Count 8.99 10^3/uL (3.29-11.43)
[2024-05-08 04:09] LABS: Alanine Aminotransferase 6 U/L (0-41); Albumin Level 3.5 g/dL (3.5-5.2); Alkaline Phosphatase 241 U/L (40-130); Anion Gap 17.2 (5-19); Aspartate Amino Transferase 6 U/L (0-40); Blood Urea Nitrogen 24 mg/dL (8-23); Calcium 9.2 mg/dL (8.5-10.5); Carbon Dioxide 28 mmol/L (22-29); Chloride 97 mmol/L (98-107); Creatinine Clr Calc Pharmacy 13.4265; Glucose 146 mg/dL (65-115); Osmolality Calculated 293 mOsm/kg (285-295); Phosphorus 3.7 mg/dL (2.5-4.5); Potassium 4.2 mmol/L (3.5-5.1); Sodium 138 mmol/L (136-145); Total Bilirubin 0.3 mg/dL (0.15-1.2); Total Protein 6.5 g/dL (6.6-8.7)
[2024-05-08] MEDS: aspirin 81 mg EC Tablet PO (06:00)
[2024-05-08] MEDS: pantoprazole DR 40 mg Tablet PO (06:00)
[2024-05-08] MEDS: levothyroxine 25 mcg Tablet PO (06:00)
[2024-05-08] MEDS: escitalopram 10 mg Tablet 20 MG PO (08:27)
[2024-05-08] MEDS: allopurinol 300 mg Tablet PO (08:27)
[2024-05-08] MEDS: isosorbide mononitrate ER 60 mg Tablet PO ×2 (08:27→17:27)
[2024-05-08] MEDS: sevelamer 800 mg Tablet 1600 MG PO ×2 (08:27→17:26)
[2024-05-08] MEDS: acetaminophen 325 mg Tablet 650 MG PO (08:30)
--- NOTE | 2024-05-08 09:17 | P.PN_ITS ---
Subjective 2 Subjective: getting HD Medications: Reviewed: Yes Vitals/I&O/Wt Last Vital Signs Temp 98.6 F 05/08/24 08:00 Pulse 59 L 05/08/24 08:00 Resp 16 05/08/24 08:00 BP 122/69 05/08/24 08:00 Pulse Ox 92 05/08/24 08:00 O2 Del Method Nasal Cannula 05/08/24 08:00 O2 Flow Rate 3 05/08/24 08:18 05/07/24 05/08/24 05/08/24 22:59 06:59 14:59 Intake Total 120 / 980 120 / 120 Output Total 100 / 4100 Balance 120 / -3020 -100 / -3120 120 / 120 Weight last 48 hrs Weight 95.073 kg Weight 94.5 kg Weight 96.87 kg Weight 95.6 kg Weight 97.341 kg Weight 94.347 kg Physical Exam 2 Narrative: AWAKE ,A LERT NO DISTRESS S1S2 RRR PER REPORT LUNGS CLEAR HUNG per report NO EDEMA Data 05/08/24 02:14 05/08/24 02:14 Micro: Microbiology 05/06/24 10:18 Blood Culture - Preliminary Blood NEGATIVE TO DATE 05/06/24 10:16 Blood Culture - Preliminary Blood NEGATIVE TO DATE A&P Assessment and plan (1) End stage renal disease on dialysis: Plan 74-year-old gentleman history of A-fib hypothyroidism, anemia, ESRD, coronary artery disease, carotid artery disease. 1. CHF with voume overlaod , last EF 65 % 2. ESRD : volume overload short of breath , HD today 3. Anemia: Epogen ordered , check iron studies check SPEP serum immunofixation. 4. met acidosis , improved 5. LE edema , consider venous doppler 9. Hypotension , holding amlodipine The patient was seen and examined using audiovisual equipment with the aid of Dr. Willson. The patient consented to hemodialysis and to telehealth. Attestations 2 Medical Necessity Statement*: PER [facility] Coding Level of Care Code Acute Code for [facility] Fwd Diagnoses End stage renal disease on dialysis N18.6; Z99.2
[2024-05-08] MEDS: heparin, porcine 1,000 unit/mL INJ 10 mL 1000 UNIT IV (10:00)
[2024-05-08] MEDS: terazosin 5 mg Capsule 10 MG PO ×2 (13:47→17:27)
[2024-05-08] MEDS: amlodipine 5 mg Tablet PO (13:47)
[2024-05-08] MEDS: carvedilol 12.5 mg Tablet PO ×2 (13:47→17:27)
[2024-05-08] MEDS: enoxaparin 30 mg/0.3 mL Syringe SUBCUT (13:49)
--- NOTE | 2024-05-08 15:12 | CTR_ITS ---
PROCEDURE INFORMATION: Exam: CT Abdomen And Pelvis Without Contrast Exam date and time: 05/08/2024 3:44 PM Age: 74 years old Clinical indication: Bloating; Additional info: Distention, bloating TECHNIQUE: Imaging protocol: Computed tomography of the abdomen and pelvis without contrast. Radiation optimization: All CT scans at this facility use at least one of these dose optimization techniques: automated exposure control; mA and/or kV adjustment per patient size (includes targeted exams where dose is matched to clinical indication); or iterative reconstruction. COMPARISON: [place] [id number] 04/27/2024 3:[address] angio chest PE protcl [id number] 05/06/2024 5:[address] abdomen pelvis wo con [id number] 02/18/2023 7:14 PM RADIATION DOSE METRICS: Total DLP (mGy-cm): 879.75 FINDINGS: Limitations: The absence of intravenous contrast lessens the sensitivity of this study for solid organ abnormalities. Lungs: Background of ground-glass opacity at the lung bases is identified. This may represent some interstitial pulmonary edema. This is less than on 04/27/2024. Heart: The heart is moderately enlarged. There is trace pericardial effusion there is some dependent atelectasis at both lung bases. There are trace bilateral pleural effusions. Coronary arteries: There is severe atherosclerotic calcification of the coronary arteries. Liver: There is no focal abnormality within the liver. Gallbladder and biliary ducts: There has been a cholecystectomy. There is no common bile duct dilation. Pancreas: The pancreas is normal. Spleen: The spleen demonstrates punctate calcifications, consistent with remote granulomatous organism exposure. Adrenal glands: There is a 9 x 16 mm fat containing lesion right adrenal gland consistent with benign myelolipoma. The left adrenal gland is normal. Kidneys and ureters: Cyst is seen arising from the lower pole of the right kidney measuring 3.8 cm. This is larger than on the previous examinations and slightly higher density measuring 28 Hounsfield units. This could be due to some hemorrhage or proteinaceous materials within the cyst. There is a 19 mm sized cyst also arising from the lower pole previously 17 mm on 02/18/2023 but not significantly changed from 04/27/2022. The left kidney is normal. There is no evidence of hydronephrosis. There is no evidence of renal or ureteral calcifications. Stomach and bowel: Extensive diverticulosis is present in the distal colon. There is no evidence of colitis/diverticulitis. There is no evidence of intestinal obstruction. Appendix: Not identified Intraperitoneal space: There is no evidence of free intraperitoneal fluid. Vasculature: There is some residual contrast material in the urinary bladder from yesterday's CT PE study. There is also a 6 x 11 mm contrast collection posterior to the left side of the urinary bladder likely a small distal left ureterocele. The aorta demonstrates moderate atherosclerotic calcification. There is no evidence of an abdominal aortic aneurysm. Lymph nodes: There is no evidence of lymphadenopathy. Urinary bladder: There is moderate thickening of the urinary bladder wall not significantly changed from previous. Please correlate for any urinary tract symptoms. This may represent muscular hypertrophy and trabeculation related to enlarged prostate. Reproductive: The prostate demonstrates moderate nonspecific enlargement. The seminal vesicles are normal. Bones/joints: There are findings of laminectomy at L1 and L2 and posterior spinal fusion with bilateral pedicle screws in the pedicles T10 through L1 and L3 and L4 and in the left pedicle at L2. The chronic findings at L2 are unchanged. There is also degenerative change in the lower lumbar spine at L4-L5. No acute fracture is identified. Soft tissues: Fat stranding in the lower anterior abdominal wall seen on the right on 04/27/2024 is improved. This may represent some improved cellulitis. There is new subcutaneous soft tissue density and skin thickening seen in the left lower quadrant of the anterior abdominal wall. Please correlate clinically. This could represent some sites of injection. There is also small amount of air in the subcutaneous soft tissues of the lower left flank which is almost certainly due to subcutaneous injection. CT/CT abdomen pelvis wo con [id number] IMPRESSION: 1. Mild bilateral pulmonary edema 2. Cardiomegaly and coronary artery disease 3. Stable postsurgical changes in the lumbar spine. 4. Right renal cysts as described COMMENTS: 1. Consistent with the [place]'s Incidental Findings Committee white paper (J Am Sosa Radiol 2017): For any incidental adrenal lesion greater than or equal to 1 cm but less than or equal to 4 cm classified in this report as benign, likely benign, or containing fat (including classification as an adenoma or myelolipoma), no follow-up imaging is recommended per consensus recommendations based on imaging criteria. Further lab evaluation could be pursued if warranted based on clinical findings. 2. Consistent with the [place] [employer]'s Incidental Findings Committee white paper (J Am Sosa Radiol 2018): Any incidental renal lesion less than 1 cm or classified as too small to characterize, or any incidental cystic renal lesion characterized as simple-appearing, is likely benign. No follow-up imaging is recommended for these lesions per consensus recommendations based on imaging criteria.
--- NOTE | 2024-05-08 15:12 | P.PN_ITS ---
Subjective 2 Subjective: Patient was seen this morning continues to complain of shortness of breath, edema, no fevers, chills, no cough, no abdominal pain, but does complain of bloating Vitals/I&O/Wt Last Vital Signs Temp 98.8 F 05/08/24 14:20 Pulse 63 05/08/24 14:20 Resp 18 05/08/24 14:20 BP 140/66 05/08/24 14:20 Pulse Ox 92 05/08/24 08:00 O2 Del Method Nasal Cannula 05/08/24 08:00 O2 Flow Rate 3 05/08/24 08:18 05/08/24 05/08/24 05/08/24 06:59 14:59 22:59 Intake Total 620 / 620 Output Total 100 / 4100 4000 / 4000 Balance -100 / -3120 -3380 / -3380 Weight last 48 hrs Weight 91.2 kg Weight 95.073 kg Weight 94.5 kg Weight 96.87 kg Weight 95.6 kg Physical Exam 2 Const: COMMON NORMALS: no acute distress and patient oriented x3 Resp: COMMON NORMALS: normal respiratory effort, No retractions and No use of accessory muscles AUSCULTATION: crackles and wheezes Cardio: COMMON NORMALS: regular rate, regular rhythm, S1 normal heart sound present and S2 normal heart sound present RATE: regular rate RHYTHM: r egular rhythm HEART SOUNDS: S1 normal heart sound present and S2 normal heart sound present GI: OTHER: Abdomen soft, distended, no guarding, no rebound, rigidity Extremity: NARRATIVE EXTREMITY EXAM: 1+ edema Neuro: COMMON NORMALS: patient oriented x3 Psych: COMMON NORMALS: mental status grossly normal Data 05/08/24 02:14 05/08/24 02:14 Micro: Microbiology 05/06/24 10:18 Blood Culture - Preliminary Blood NEGATIVE TO DATE 05/06/24 10:16 Blood Culture - Preliminary Blood NEGATIVE TO DATE A&P Assessment and plan (1) Chest pressure: (2) Hypoxemia: (3) Diastolic CHF: (4) Dyspnea: (5) Atrial fibrillation with slow ventricular response: (6) Acute hypoxic respiratory failure: Plan Acute hypoxic respiratory failure -Likely secondary to fluid overload, CHF -CT angiogram of the chest - CT/CT angio chest PE protcl [id number] IMPRESSION: 1. No evidence of pulmonary embolism. 2. Dilated main pulmonary artery can be seen with pulmonary arterial hypertension. 3. Ill-defined ground-glass opacities throughout the lungs likely represent mild pulmonary edema. 4. Trace bilateral pleural effusions with adjacent relaxation atelectasis. 5. Reflux of contrast into the IVC/hepatic veins can be seen with tricuspid regurgitation and/or right heart failure. 6. Moderate cardiomegaly. -Venous ultrasound negative for DVT -Plan -Urine output lackluster with diuresis hold off for now -Receiving dialysis today -Monitor respiratory status Chest pressure -Continue aspirin, statin, Plavix, Coreg -CTA negative for PE -Cardiac echo CONCLUSIONS Normal left ventricular size, systolic function and wall thickness, with no regional wall motion abnormalities. Left ventricular ejection fraction is estimated at 55 %. Grade I/IV diastolic dysfunction (abnormal relaxation filling pattern), normal to mildly elevated filling pressures. Moderately increased left atrial size. Thickened mitral valve. Moderate mitral annular calcification. No mitral valve stenosis. Moderate mitral valve regurgitation. Severe aortic valve calcification. Mild aortic valve stenosis, mean gradient 6.5 mmHg, FREEMAN 1.7 cm squared. Trace aortic valve regurgitation. There is no pericardial effusion. Right atrial pressure is around 5 mm of mercury. -Cardiology consulted Atrial fibrillation -Coreg -Aspirin, Plavix Anemia: -Hemoglobin 7.8 -Check Hemoccult -Continue Protonix Diabetes: Continue Lantus, insulin sliding scale CAD with multiple prior stents: Continue aspirin, Plavix, carvedilol, statin. HTN: Continue carvedilol, will continue amlodipine 5 mg Hypothyroidism: Continue levothyroxine. Attestations 2 Medical Necessity Statement*: Patient requires hospitalization for acute hypoxic respiratory failure, CHF requiring dialysis Diagnoses Chest pressure R07.89 Hypoxemia R09.02 Diastolic CHF I50.30 Dyspnea R06.00 Atrial fibrillation with slow ventricular response I48.91 Acute hypoxic respiratory failure J96.01
--- NOTE | 2024-05-08 20:52 | PM.PN ---
Subjective Subjective: Patient feeling better after dialysis Medications: Reviewed: Yes Vitals/I&O/Wt Last Vital Signs Temp 98.3 F 05/08/24 20:00 Pulse 63 05/08/24 20:00 Resp 17 05/08/24 20:00 BP 119/57 05/08/24 20:00 Pulse Ox 92 05/08/24 20:00 O2 Del Method Nasal Cannula 05/08/24 20:00 O2 Flow Rate 3 05/08/24 08:18 05/08/24 05/08/24 05/08/24 06:59 14:59 22:59 Intake Total 620 / 620 120 / 740 Output Total 100 / 4100 4000 / 4000 Balance -100 / -3120 -3380 / -3380 120 / -3260 Weight last 48 hrs Weight 201 lb 0.985 oz Weight 209 lb 9.6 oz Weight 208 lb 5.389 oz Weight 213 lb 9 oz Physical Exam Const: OTHER: GENERAL: Patient is alert, awake and oriented x3. HEART: Regular S1 and S2. No murmur, rub or gallop. LUNGS: Clear to auscultate bilaterally. CENTRAL NERVOUS SYSTEM: Grossly nonfocal. EXTREMITIES: Lower extremities with out edema bilaterally. Data 05/08/24 02:14 05/08/24 02:14 A&P Assessment and plan (1) CAD (coronary artery disease): He does not have any worsening of the chest pressure or shortness of breath with exertion. His troponin is chronically elevated, usually in the 130s to 140s. Hemoglobin 7.8 today, decreased from February. Will observe symptoms today, especially after dialysis. Chest pressure appears to be more volume related than ischemic at this point. He is receiving furosemide 80 mg IV twice daily. On today's visit dated 05/08/2024 patient can to do fine specially after the dialysis. Continue dialysis no further intervention planned Qualifiers: Associated angina: without angina Coronary Disease-Associated Artery/Lesion type: [place] artery [place] vs. transplanted heart: [place] heart Qualified Code(s): I25.10 - Atherosclerotic heart disease of [place] coronary artery without angina pectoris (2) Dyspnea on exertion: (3) Diastolic CHF: (4) Atrial fibrillation with controlled ventricular rate: Continue carvedilol 12.5mg BID, aspirin, Plavix, isosorbide mononitrate 60 mg twice a day, statin, agree with reducing amlodipine to 5 mg daily. (5) End stage renal disease on dialysis: Attestations Medical Necessity Statement*: require continuation hospitalization for above defined care Coding Level of Care Code Acute Code for Chg Fwd Diagnoses Coronary artery disease involving [place] coronary artery of [place] heart without angina pectoris I25.10 Associated angina: without angina Coronary Disease-Associated Artery/Lesion type: [place] artery [place] vs. transplanted heart: [place] heart Dyspnea on exertion R06.00 Diastolic CHF I50.30 Atrial fibrillation with controlled ventricular rate I48.91 End stage renal disease on dialysis N18.6; Z99.2
[2024-05-08 21:41] LABS: Glucose Point of Care 237 mg/dL (70-110)
[2024-05-08] MEDS: clopidogrel 75 mg Tablet PO (22:13)
[2024-05-08] MEDS: atorvastatin 40 mg Tablet PO (22:13)
[2024-05-08] MEDS: insulin glargine 100 units/1 mL 24 UNIT SUBCUT (22:13)
[2024-05-09] VITALS (9 sets, daily range): BP systolic 113–148; BP diastolic 56–77; PULSE 52–70; RESP 14–17; TEMP 36.5–36.8; O2SAT 90–94
[2024-05-09 04:47] LABS: Basophils # 0.1 10^3/uL (0.0-0.1); Eosinophils # 0.4 10^3/uL (0.0-0.8); Eosinophils % 4.2 %; Hematocrit 30.5 % (37-53); Lymphocytes # 1.4 10^3/uL (0.8-4.8); Lymphocytes % 14.1 %; Mean Corpuscular HGB Conc 30.5 g/dL (30-55); Mean Corpuscular Hemoglobin 28.9 pg (27-33); Mean Corpuscular Volume 94.7 fl (82-101); Mean Platelet Volume 9.4 fL (7.4-10.4); Monocytes % 9.5 %; Neutrophils # 7.12 10^3/uL (1.8-7.7); Neutrophils % 70.4 %; Nucleated Red Blood Cells % 0 %; Platelet Count 282 10^3/cmm (157-399); Red Blood Count 3.22 10^6/uL (3.85-5.65); Red Cell Distribution Width 14.1 % (12.1-15.1); White Blood Count 10.12 10^3/uL (3.29-11.43)
[2024-05-09 05:10] LABS: Alanine Aminotransferase 7 U/L (0-41); Albumin Level 3.8 g/dL (3.5-5.2); Alkaline Phosphatase 274 U/L (40-130); Anion Gap 18.3 (5-19); Aspartate Amino Transferase 8 U/L (0-40); Blood Urea Nitrogen 23 mg/dL (8-23); Calcium 9.9 mg/dL (8.5-10.5); Carbon Dioxide 27 mmol/L (22-29); Chloride 93 mmol/L (98-107); Creatinine Clr Calc Pharmacy 15.2875; Globulin 3.6 g/dL (1.3-4.6); Glucose 103 mg/dL (65-115); Osmolality Calculated 282 mOsm/kg (285-295); Phosphorus 3.3 mg/dL (2.5-4.5); Potassium 4.3 mmol/L (3.5-5.1); Sodium 134 mmol/L (136-145); Total Bilirubin 0.4 mg/dL (0.15-1.2); Total Protein 7.4 g/dL (6.6-8.7)
[2024-05-09] MEDS: levothyroxine 25 mcg Tablet PO (05:42)
[2024-05-09] MEDS: aspirin 81 mg EC Tablet PO (05:42)
[2024-05-09] MEDS: pantoprazole DR 40 mg Tablet PO (05:42)
[2024-05-09 06:30] LABS: Glucose Point of Care 116 mg/dL (70-110)
[2024-05-09] MEDS: carvedilol 12.5 mg Tablet PO ×2 (09:12→17:15)
[2024-05-09] MEDS: sevelamer 800 mg Tablet 1600 MG PO ×2 (09:12→17:15)
[2024-05-09] MEDS: terazosin 5 mg Capsule 10 MG PO ×2 (09:12→17:15)
[2024-05-09] MEDS: amlodipine 5 mg Tablet PO (09:12)
[2024-05-09] MEDS: escitalopram 10 mg Tablet 20 MG PO (09:12)
[2024-05-09] MEDS: allopurinol 300 mg Tablet PO (09:12)
[2024-05-09] MEDS: isosorbide mononitrate ER 60 mg Tablet PO ×2 (09:12→17:15)
[2024-05-09] MEDS: acetaminophen 325 mg Tablet 650 MG PO (09:13)
[2024-05-09 10:37] LABS: Glucose Point of Care 220 mg/dL (70-110)
--- NOTE | 2024-05-09 10:39 | P.PN_ITS ---
Subjective 2 Subjective: no new omplaints Medications: Reviewed: Yes Vitals/I&O/Wt Last Vital Signs Temp 97.7 F 05/09/24 08:00 Pulse 70 05/09/24 08:00 Resp 17 05/09/24 08:00 BP 137/61 05/09/24 08:00 Pulse Ox 93 05/09/24 08:00 O2 Del Method Room Air 05/09/24 08:00 O2 Flow Rate 2 05/09/24 07:14 05/08/24 05/09/24 05/09/24 22:59 06:59 14:59 Intake Total 120 / 740 240 / 240 Balance 120 / -3260 240 / 240 Weight last 48 hrs Weight 92.487 kg Weight 91.2 kg Weight 95.073 kg Weight 94.5 kg Physical Exam 2 Narrative: AWAKE ,A LERT NO DISTRESS S1S2 RRR PER REPORT LUNGS CLEAR HUNG per report NO EDEMA Data 05/09/24 03:36 05/09/24 03:36 A&P Assessment and plan (1) End stage renal disease on dialysis: Plan 74-year-old gentleman history of A-fib hypothyroidism, anemia, ESRD, coronary artery disease, carotid artery disease. 1. CHF with voume overlaod , last EF 65 % 2. ESRD : volume overload short of breath , HD tomorrow 3. Anemia: Epogen ordered , check iron studies check SPEP serum immunofixation. 4. met acidosis , improved 5. LE edema , consider venous doppler 9. Hypotension , holding amlodipine The patient was seen and examined using audiovisual equipment with the aid of Dr. Willson. The patient consented to hemodialysis and to telehealth. Attestations 2 Medical Necessity Statement*: per medicne Coding Level of Care Code Acute Code for Chg Fwd Diagnoses End stage renal disease on dialysis N18.6; Z99.2
[2024-05-09] MEDS: enoxaparin 30 mg/0.3 mL Syringe SUBCUT (14:19)
--- NOTE | 2024-05-09 15:16 | P.PN_ITS ---
Subjective 2 Subjective: Patient was seen this morning continues to, shortness of breath, edema, no chest pain, no palpitations Vitals/I&O/Wt Last Vital Signs Temp 97.9 F 05/09/24 11:57 Pulse 65 05/09/24 11:57 Resp 16 05/09/24 11:57 BP 143/66 05/09/24 11:57 Pulse Ox 94 05/09/24 11:57 O2 Del Method Nasal Cannula 05/09/24 11:57 O2 Flow Rate 2 05/09/24 07:14 05/09/24 05/09/24 05/09/24 06:59 14:59 22:59 Intake Total 360 / 360 Balance 360 / 360 Weight last 48 hrs Weight 92.487 kg Weight 91.2 kg Weight 95.073 kg Physical Exam 2 Const: COMMON NORMALS: no acute distress and patient oriented x3 Resp: COMMON NORMALS: normal respiratory effort, No retractions and No use of accessory muscles AUSCULTATION: crackles and wheezes Cardio: COMMON NORMALS: regular rate, regular rhythm, S1 normal heart sound present and S2 normal heart sound present RATE: regular rate RHYTHM: r egular rhythm HEART SOUNDS: S1 normal heart sound present and S2 normal heart sound present GI: COMMON NORMALS: Normal to inspection, nondistended, normoactive bowel sounds present and non-tender Extremity: COMMON NORMALS: no pedal edema Neuro: COMMON NORMALS: patient oriented x3 Psych: COMMON NORMALS: mental status grossly normal Data 05/09/24 03:36 05/09/24 03:36 A&P Assessment and plan (1) Chest pressure: (2) Hypoxemia: (3) Diastolic CHF: (4) Dyspnea: (5) Atrial fibrillation with slow ventricular response: (6) Acute hypoxic respiratory failure: Plan Acute hypoxic respiratory failure -Likely secondary to fluid overload, CHF -CT angiogram of the chest - CT/CT angio chest PE protcl [id number] IMPRESSION: 1. No evidence of pulmonary embolism. 2. Dilated main pulmonary artery can be seen with pulmonary arterial hypertension. 3. Ill-defined ground-glass opacities throughout the lungs likely represent mild pulmonary edema. 4. Trace bilateral pleural effusions with adjacent relaxation atelectasis. 5. Reflux of contrast into the IVC/hepatic veins can be seen with tricuspid regurgitation and/or right heart failure. 6. Moderate cardiomegaly. -Venous ultrasound negative for DVT -Plan -Urine output lackluster with diuresis hold off for now -Receiving dialysis -Monitor respiratory status Chest pressure -Continue aspirin, statin, Plavix, Coreg -CTA negative for PE -Cardiac echo CONCLUSIONS Normal left ventricular size, systolic function and wall thickness, with no regional wall motion abnormalities. Left ventricular ejection fraction is estimated at 55 %. Grade I/IV diastolic dysfunction (abnormal relaxation filling pattern), normal to mildly elevated filling pressures. Moderately increased left atrial size. Thickened mitral valve. Moderate mitral annular calcification. No mitral valve stenosis. Moderate mitral valve regurgitation. Severe aortic valve calcification. Mild aortic valve stenosis, mean gradient 6.5 mmHg, FREEMAN 1.7 cm squared. Trace aortic valve regurgitation. There is no pericardial effusion. Right atrial pressure is around 5 mm of mercury. -Cardiology consulted Atrial fibrillation -Coreg -Aspirin, Plavix Anemia: -Hemoglobin 7.8 -Check Hemoccult -Continue Protonix Diabetes: Continue Lantus, insulin sliding scale CAD with multiple prior stents: Continue aspirin, Plavix, carvedilol, statin. HTN: Continue carvedilol, will continue amlodipine 5 mg Hypothyroidism: Continue levothyroxine. Attestations 2 Medical Necessity Statement*: Patient requires hospitalization for acute hypoxic respiratory failure secondary fluid overload requiring dialysis Diagnoses Chest pressure R07.89 Hypoxemia R09.02 Diastolic CHF I50.30 Dyspnea R06.00 Atrial fibrillation with slow ventricular response I48.91 Acute hypoxic respiratory failure J96.01
--- NOTE | 2024-05-09 15:17 | XRR_ITS ---
PROCEDURE INFORMATION: Exam: XR Chest Exam date and time: 05/09/2024 3:48 PM Age: 74 years old Clinical indication: Shortness of breath; Prior surgery; Surgery date: 6+ months; Surgery type: Thoracic fusion, cardiac stent; Additional info: SOB TECHNIQUE: Imaging protocol: Radiologic exam of the chest. Views: 1 view. COMPARISON: CT angio chest PE protcl [id number] 05/06/2024 5:57 PM FINDINGS: Lungs: Unremarkable. Pulmonary vascularity is within normal limits. No consolidation. Pleural spaces: Unremarkable. No pleural effusion. No pneumothorax. Heart/Mediastinum: There is unchanged No cardiomegaly. Bones/joints: No acute abnormality. Severe degenerative changes right shoulder and spine. Postoperative changes in the thoracolumbar spine. XR/XR chest 1V portable [id number] IMPRESSION: No acute findings.
[2024-05-09 15:40] LABS: C Reactive Protein 38.7 mg/L (0.0-4.9)
[2024-05-09 15:48] LABS: Procalcitonin 0.44 ng/mL (0-0.5)
[2024-05-09 16:58] LABS: Glucose Point of Care 218 mg/dL (70-110)
--- NOTE | 2024-05-09 20:42 | P.PN_ITS ---
Subjective 2 Subjective: Patient denies any chest pain Medications: Reviewed: Yes Vitals/I&O/Wt Last Vital Signs Temp 97.9 F 05/09/24 20:00 Pulse 57 L 05/09/24 20:00 Resp 16 05/09/24 20:00 BP 113/56 05/09/24 20:00 Pulse Ox 93 05/09/24 20:00 O2 Del Method Nasal Cannula 05/09/24 20:00 O2 Flow Rate 2 05/09/24 07:14 05/09/24 05/09/24 05/09/24 06:59 14:59 22:59 Intake Total 360 / 360 240 / 600 Balance 360 / 360 240 / 600 Weight last 48 hrs Weight 203 lb 14.4 oz Weight 201 lb 0.985 oz Weight 209 lb 9.6 oz Physical Exam 2 Const: OTHER: GENERAL: Patient is alert, awake and oriented x3. HEART: Regular S1 and S2. No murmur, rub or gallop. LUNGS: Clear to auscultate bilaterally. CENTRAL NERVOUS SYSTEM: Grossly nonfocal. EXTREMITIES: Lower extremities with out edema bilaterally. Data 05/09/24 03:36 05/09/24 03:36 A&P Assessment and plan (1) CAD (coronary artery disease): He does not have any worsening of the chest pressure or shortness of breath with exertion. His troponin is chronically elevated, usually in the 130s to 140s. Hemoglobin 7.8 today, decreased from February. Will observe symptoms today, especially after dialysis. Chest pressure appears to be more volume related than ischemic at this point. He is receiving furosemide 80 mg IV twice daily. On today's visit dated 05/08/2024 patient can to do fine specially after the dialysis. Continue dialysis no further intervention planned On today's visit dated 05/09/2024 patient is doing fine from a cardiac perspective he denies any more chest pain at this point will ask for stress test since patient have off-and-on chest pain in the past and after dialysis to get better he has a history of prior stents. Qualifiers: Associated angina: without angina Coronary Disease-Associated Artery/Lesion type: [place] artery [place] vs. transplanted heart: [place] heart Qualified Code(s): I25.10 - Atherosclerotic heart disease of [place] coronary artery without angina pectoris (2) Dyspnea on exertion: Improved after dialysis (3) Diastolic CHF: Well compensated (4) Atrial fibrillation with controlled ventricular rate: Continue current medical. (5) End stage renal disease on dialysis: Attestations 2 Medical Necessity Statement*: Patient require continued hospitalization for the above defined care Coding Level of Care Code Acute Code for Chg Fwd Diagnoses Coronary artery disease involving [place] coronary artery of [place] heart without angina pectoris I25.10 Associated angina: without angina Coronary Disease-Associated Artery/Lesion type: [place] artery [place] vs. transplanted heart: [place] heart Dyspnea on exertion R06.00 Diastolic CHF I50.30 Atrial fibrillation with controlled ventricular rate I48.91 End stage renal disease on dialysis N18.6; Z99.2
[2024-05-09 20:58] LABS: Immunofixation Serum Normal pattern.
[2024-05-09 21:19] LABS: Glucose Point of Care 209 mg/dL (70-110)
[2024-05-09] MEDS: atorvastatin 40 mg Tablet PO (22:10)
[2024-05-09] MEDS: clopidogrel 75 mg Tablet PO (22:10)
[2024-05-09] MEDS: insulin glargine 100 units/1 mL 24 UNIT SUBCUT (22:10)
[2024-05-10] VITALS (11 sets, daily range): BP systolic 94–149; BP diastolic 49–73; PULSE 54–72; RESP 15–18; TEMP 36.3–37.1; O2SAT 90–93
--- NOTE | 2024-05-10 | ECG_ITS ---
[facility] Test Date: 2024-05-10 Pat Name: Eliazar Hogan Department: Room: 255 Gender: Male Echo Vascular Technologist: : 1950 Requested By: Kenya Ryan Order Number: [id number] Reading MD: Interpretive Statements Lung unchanged pre/post procedure; Intraprocedure shortess of breath with N/V; Symptoms resoled after the administration of Zofran [id number]
[2024-05-10 04:34] LABS: Basophils # 0.1 10^3/uL (0.0-0.1); Basophils % 0.8 %; Eosinophils # 0.4 10^3/uL (0.0-0.8); Eosinophils % 3.6 %; Hematocrit 30.5 % (37-53); Lymphocytes # 1.5 10^3/uL (0.8-4.8); Lymphocytes % 13.6 %; Mean Corpuscular HGB Conc 30.2 g/dL (30-55); Mean Corpuscular Hemoglobin 28.9 pg (27-33); Mean Corpuscular Volume 95.9 fl (82-101); Mean Platelet Volume 9.3 fL (7.4-10.4); Monocytes % 8.8 %; Neutrophils # 8.12 10^3/uL (1.8-7.7); Nucleated Red Blood Cells % 0 %; Platelet Count 304 10^3/cmm (157-399); Red Blood Count 3.18 10^6/uL (3.85-5.65); Red Cell Distribution Width 14.1 % (12.1-15.1); White Blood Count 11.26 10^3/uL (3.29-11.43)
[2024-05-10 04:54] LABS: Alanine Aminotransferase 8 U/L (0-41); Albumin Level 3.5 g/dL (3.5-5.2); Alkaline Phosphatase 278 U/L (40-130); Anion Gap 21.6 (5-19); Aspartate Amino Transferase 8 U/L (0-40); Blood Urea Nitrogen 42 mg/dL (8-23); C Reactive Protein 27.9 mg/L (0.0-4.9); Calcium 10.2 mg/dL (8.5-10.5); Carbon Dioxide 24 mmol/L (22-29); Chloride 95 mmol/L (98-107); Creatinine Clr Calc Pharmacy 10.1952; Globulin 3.7 g/dL (1.3-4.6); Glucose 89 mg/dL (65-115); Magnesium 2.6 mg/dL (1.7-2.3); Osmolality Calculated 292 mOsm/kg (285-295); Phosphorus 4.1 mg/dL (2.5-4.5); Potassium 4.6 mmol/L (3.5-5.1); Sodium 136 mmol/L (136-145); Total Bilirubin 0.3 mg/dL (0.15-1.2); Total Protein 7.2 g/dL (6.6-8.7)
[2024-05-10 05:11] LABS: Procalcitonin 0.46 ng/mL (0-0.5)
[2024-05-10] MEDS: pantoprazole DR 40 mg Tablet PO (05:17)
[2024-05-10] MEDS: aspirin 81 mg EC Tablet PO (05:17)
[2024-05-10] MEDS: levothyroxine 25 mcg Tablet PO (05:17)
[2024-05-10 06:31] LABS: Glucose Point of Care 105 mg/dL (70-110)
--- NOTE | 2024-05-10 06:52 | P.PN_ITS ---
Subjective 2 Subjective: c/o nausea , and was hypotensive , wants to stop HD Medications: Reviewed: Yes Vitals/I&O/Wt Last Vital Signs Temp 98.0 F 05/10/24 04:00 Pulse 62 05/10/24 05:08 Resp 15 05/10/24 04:00 BP 145/66 05/10/24 04:00 Pulse Ox 91 05/10/24 04:00 O2 Del Method Nasal Cannula 05/10/24 04:00 O2 Flow Rate 2 05/09/24 07:14 05/09/24 05/09/24 05/10/24 14:59 22:59 06:59 Intake Total 360 / 360 240 / 600 Balance 360 / 360 240 / 600 Weight last 48 hrs Weight 91.263 kg Weight 92.487 kg Weight 91.2 kg Physical Exam 2 Narrative: AWAKE ,A LERT NO DISTRESS S1S2 RRR PER REPORT LUNGS CLEAR HUNG per report NO EDEMA Data 05/10/24 02:53 05/10/24 02:53 A&P Assessment and plan (1) End stage renal disease on dialysis: Plan 74-year-old gentleman history of A-fib hypothyroidism, anemia, ESRD, coronary artery disease, carotid artery disease. 1. CHF with voume overlaod , last EF 65 % 2. ESRD : volume overload short of breath , HD today but stopped as pt was hypotensive 3. Anemia: Epogen ordered , check iron studies check SPEP serum immunofixation. 4. met acidosis , improved 5. LE edema , consider venous doppler 9. Hypotension , holding amlodipine The patient was seen and examined using audiovisual equipment with the aid of Dr. Willson. The patient consented to hemodialysis and to telehealth. Attestations 2 Medical Necessity Statement*: per medicine Coding Level of Care Code Acute Code for Chg Fwd Diagnoses End stage renal disease on dialysis N18.6; Z99.2
--- NOTE | 2024-05-10 07:00 | XR_ITS ---
WS: [id number] PORTABLE CHEST HISTORY: sob COMPARISON: 05/09/2024 Slight elevation RIGHT hemidiaphragm with RIGHT basilar atelectasis. No consolidation or pneumonia. N ormal vasculature. Lungs are clear and well expanded. No pleural effusion or pneumothorax. Cardiac size: Mildly enlarged cardiac silhouette. Mediastinum/Aorta: Mild atherosclerosis aorta. RIGHT glenohumeral joint arthritis. Increasing sclerosis and lytic areas in the glenoid. Prior fusion hardware thoracolumbar junction. XR/XR chest 1V portable [id number] IMPRESSION: Stable chest. No acute cardiopulmonary findings.
[2024-05-10] MEDS: regadenoson 0.4 Mg/5 ml Syringe IVP (07:14)
[2024-05-10] MEDS: ondansetron 2 mg/ML SDV 2 mL 4 MG IVP (07:18)
[2024-05-10] MEDS: heparin, porcine 1,000 unit/mL INJ 10 mL 10000 UNIT HE (10:24)
[2024-05-10] MEDS: albumin 12.5 GM/50 ML VIAL IV (10:42)
--- NOTE | 2024-05-10 12:11 | PC.HD ---
Pt c/o head and shoulder pain and nausea pre-treatment, not feeling well since stress test, already had nausea medicine and refused tylenol. Pain increased while on dialysis and pt feeling worse. Pt then developed symptomatic hypotension, not resolved with decreased machine temp and albumin infusing, did come up when UF stopped. Today is extra treatment to remove fluid and since pt's BP not tolerating fluid removal treatment terminated early. Dr Marx and Dr Hopkins aware. Pt will get treatment tomorrow per his regular schedule.
[2024-05-10 12:15] LABS: Glucose Point of Care 118 mg/dL (70-110)
[2024-05-10] MEDS: escitalopram 10 mg Tablet 20 MG PO (12:35)
[2024-05-10] MEDS: allopurinol 300 mg Tablet PO (12:35)
--- NOTE | 2024-05-10 13:28 | PC.SOCIAL ---
IMM Updated Updated pt on IMM. No questions voiced. Provided pt a copy. Initialed, dated, & timed copy in chart.
[2024-05-10 14:34] LABS: KAPPA LIGHT CHAIN, FREE, SERUM 123.1 mg/L (3.3-19.4); KAPPA/LAMBDA LIGHT CHAINS FREE 1.57 (0.26-1.65); LAMBDA LIGHT CHAIN, FREE, SERU 78.6 mg/L (5.7-26.3)
--- NOTE | 2024-05-10 16:18 | P.PN_ITS ---
Subjective 2 Subjective: Patient was seen this morning, seen in dialysis lab, he tells me that he continues to feel short of breath feeling unwell, no nausea, no vomiting, no lightheadedness, no dizziness, does have a cough, although dry, denies any chest discomfort, Vitals/I&O/Wt Last Vital Signs Temp 98.0 F 05/10/24 15:40 Pulse 62 05/10/24 15:40 Resp 16 05/10/24 15:40 BP 121/49 05/10/24 15:40 Pulse Ox 91 05/10/24 15:40 O2 Del Method Room Air 05/10/24 15:40 O2 Flow Rate 2 05/10/24 15:40 05/10/24 05/10/24 05/10/24 06:59 14:59 22:59 Intake Total 600 / 600 Output Total 1385 / 1385 Balance -785 / -785 Weight last 48 hrs Weight 92.1 kg Weight 91.263 kg Weight 92.487 kg Physical Exam 2 Const: COMMON NORMALS: no acute distress and patient oriented x3 Resp: COMMON NORMALS: normal respiratory effort, No retractions, No use of accessory muscles and clear to auscultation bilaterally AUSCULTATION: clear to auscultation bilaterally Cardio: COMMON NORMALS: regular rate, regular rhythm, S1 normal heart sound present and S2 normal heart sound present RATE: regular rate RHYTHM: r egular rhythm HEART SOUNDS: S1 normal heart sound present and S2 normal heart sound present GI: COMMON NORMALS: Normal to inspection, nondistended, normoactive bowel sounds present and non-tender Extremity: COMMON NORMALS: no pedal edema Neuro: COMMON NORMALS: patient oriented x3 Psych: COMMON NORMALS: mental status grossly normal Data 05/10/24 02:53 05/10/24 02:53 Micro: Microbiology 05/10/24 05:27 Occult Blood (FIT) - Final Stool - Stool Aspirate A&P Assessment and plan (1) Chest pressure: (2) Hypoxemia: (3) Diastolic CHF: (4) Dyspnea: (5) Atrial fibrillation with slow ventricular response: (6) Acute hypoxic respiratory failure: Plan Acute hypoxic respiratory failure -Likely secondary to fluid overload, CHF -CT angiogram of the chest - CT/CT angio chest PE protcl [id number] IMPRESSION: 1. No evidence of pulmonary embolism. 2. Dilated main pulmonary artery can be seen with pulmonary arterial hypertension. 3. Ill-defined ground-glass opacities throughout the lungs likely represent mild pulmonary edema. 4. Trace bilateral pleural effusions with adjacent relaxation atelectasis. 5. Reflux of contrast into the IVC/hepatic veins can be seen with tricuspid regurgitation and/or right heart failure. 6. Moderate cardiomegaly. -Venous ultrasound negative for DVT -Plan -Urine output lackluster with diuresis hold off for now -Receiving dialysis -7.6 L so far -Monitor respiratory status Chest pressure -Continue aspirin, statin, Plavix, Coreg -CTA negative for PE -Cardiac echo CONCLUSIONS Normal left ventricular size, systolic function and wall thickness, with no regional wall motion abnormalities. Left ventricular ejection fraction is estimated at 55 %. Grade I/IV diastolic dysfunction (abnormal relaxation filling pattern), normal to mildly elevated filling pressures. Moderately increased left atrial size. Thickened mitral valve. Moderate mitral annular calcification. No mitral valve stenosis. Moderate mitral valve regurgitation. Severe aortic valve calcification. Mild aortic valve stenosis, mean gradient 6.5 mmHg, [place] 1.7 cm squared. Trace aortic valve regurgitation. There is no pericardial effusion. Right atrial pressure is around 5 mm of mercury. -Cardiology consulted, receiving cardiac stress testing today Atrial fibrillation -Coreg -Aspirin, Plavix Anemia: -Hemoglobin 7.8 -Check Hemoccult -Continue Protonix Diabetes: Continue Lantus, insulin sliding scale CAD with multiple prior stents: Continue aspirin, Plavix, carvedilol, statin. HTN: Continue carvedilol, will continue amlodipine 5 mg Hypothyroidism: Continue levothyroxine. Attestations 2 Medical Necessity Statement*: Patient requires hospitalization for shortness of breath, Diagnoses Chest pressure R07.89 Hypoxemia R09.02 Diastolic CHF I50.30 Dyspnea R06.00 Atrial fibrillation with slow ventricular response I48.91 Acute hypoxic respiratory failure J96.01
[2024-05-10 16:52] LABS: Glucose Point of Care 115 mg/dL (70-110)
[2024-05-10] MEDS: sevelamer 800 mg Tablet 1600 MG PO (17:38)
[2024-05-10] MEDS: enoxaparin 30 mg/0.3 mL Syringe SUBCUT (17:38)
[2024-05-10] MEDS: isosorbide mononitrate ER 60 mg Tablet PO (17:38)
[2024-05-10] MEDS: terazosin 5 mg Capsule 10 MG PO (17:38)
[2024-05-10] MEDS: carvedilol 12.5 mg Tablet PO (17:38)
[2024-05-10 20:34] LABS: Glucose Point of Care 148 mg/dL (70-110)
--- NOTE | 2024-05-10 21:18 | P.PN_ITS ---
Subjective 2 Subjective: Rule out for acute coronary syndrome underwent stress test which was negative, overall feeling better Medications: Reviewed: Yes Vitals/I&O/Wt Last Vital Signs Temp 97.8 F 05/10/24 19:58 Pulse 56 L 05/10/24 19:58 Resp 15 05/10/24 19:58 BP 132/72 05/10/24 19:58 Pulse Ox 91 05/10/24 19:58 O2 Del Method Room Air 05/10/24 15:40 O2 Flow Rate 1.5 05/10/24 19:57 05/10/24 05/10/24 05/10/24 06:59 14:59 22:59 Intake Total 600 / 600 Output Total 1385 / 1385 Balance -785 / -785 Weight last 48 hrs Weight 203 lb 0.732 oz Weight 201 lb 3.2 oz Weight 203 lb 14.4 oz Physical Exam 2 Const: OTHER: GENERAL: Patient is alert, awake and oriented x3. HEART: Regular S1 and S2. No murmur, rub or gallop. LUNGS: Clear to auscultate bilaterally. CENTRAL NERVOUS SYSTEM: Grossly nonfocal. EXTREMITIES: Lower extremities with out edema bilaterally. Data 05/10/24 02:53 05/10/24 02:53 Micro: Microbiology 05/10/24 05:27 Occult Blood (FIT) - Final Stool - Stool Aspirate A&P Assessment and plan (1) CAD (coronary artery disease): He does not have any worsening of the chest pressure or shortness of breath with exertion. His troponin is chronically elevated, usually in the 130s to 140s. Hemoglobin 7.8 today, decreased from February. Will observe symptoms today, especially after dialysis. Chest pressure appears to be more volume related than ischemic at this point. He is receiving furosemide 80 mg IV twice daily. On today's visit dated 05/08/2024 patient can to do fine specially after the dialysis. Continue dialysis no further intervention planned On today's visit dated 05/09/2024 patient is doing fine from a cardiac perspective he denies any more chest pain at this point will ask for stress test since patient have off-and-on chest pain in the past and after dialysis to get better he has a history of prior stents. On today's visit dated 05/10/2024 patient is feeling better denies any complaint he has dialysis tomorrow. He underwent stress test today which turns out to be negative for ischemia. Continue current management chest pain were atypical does not appear to be cardiac origin Qualifiers: Associated angina: without angina Coronary Disease-Associated Artery/Lesion type: [place] artery [place] vs. transplanted heart: [place] heart Qualified Code(s): I25.10 - Atherosclerotic heart disease of [place] coronary artery without angina pectoris (2) Dyspnea on exertion: It has improved with diuresis with dialysis (3) Diastolic CHF: Well compensated (4) Atrial fibrillation with controlled ventricular rate: Continue current medical. (5) End stage renal disease on dialysis: On hemodialysis which will be tomorrow Plan We will sign off from the patient Attestations 2 Medical Necessity Statement*: As per medicine Coding Level of Care Code Acute Code for [facility] Diagnoses Coronary artery disease involving [place] coronary artery of [place] heart without angina pectoris I25.10 Associated angina: without angina Coronary Disease-Associated Artery/Lesion type: [place] artery [place] vs. transplanted heart: [place] heart Dyspnea on exertion R06.00 Diastolic CHF I50.30 Atrial fibrillation with controlled ventricular rate I48.91 End stage renal disease on dialysis N18.6; Z99.2
--- NOTE | 2024-05-10 21:21 | NMCV_ITS ---
NM radha perf SPECT r/s* [id number] Eliazar Hogan Age: 74 Gender: M : 1950 Exam Date: 05/10/2024 06:23 Ordering Phys: Kenya Ryan MD ([email or web address]) Technologist: ANGIE Whitlock Exam Location: [facility] Indications: cp STRESS TEST Please see separate stress test report in [facility] for full findings IMAGE PROTOCOL Rest/Stress 1 Lexiscan Day Radiopharmaceutical Dose (mCi) Administration Site Administered by Rest: Tc-99m 10.9 IV Yara Borges LEAF CONDITIONER Sestamibi Stress:Tc-99m 32.9 IV Yara Borges, LEAF CONDITIONER Sestamibi Rest: 10-May-2024 60 Discovery 630 Stress: 10-May-2024 30 Discovery 630 0.4mg Lexiscan. Supine position only as patient was unable to lay prone. SPECT RESULTS Technical Quality: Good Raw Data Analysis: Normal Image Corrections: No attenuation or motion correction applied Summed Stress Score: 1 Summed Rest Score: 2 Summed Difference Score: 0 PERFUSION FINDINGS Medium sized area of persistently decreased patchy uptake noted on both rest and stress images suggestive of old myocardial infarction versus artifact, no significant ischemia noted. FUNCTIONAL RESULTS (calculated via Gated SPECT) Stress Image LV EF (%): 82 Stress EDV (mL):107 TID: 0.95 Stress ESV (mL):19 FUNCTIONAL FINDINGS: There is normal left ventricular systolic function. IMPRESSIONS This study is negative for ischemia low probability for obstructive coronary artery disease. EKG segment will be documented separately Kenya Ryan MD (Electronically Signed) Final Date: 10 May 2024 13:01 S
[2024-05-10] MEDS: atorvastatin 40 mg Tablet PO (21:26)
[2024-05-10] MEDS: insulin glargine 100 units/1 mL 24 UNIT SUBCUT (21:26)
[2024-05-10] MEDS: clopidogrel 75 mg Tablet PO (21:26)
[2024-05-11] VITALS (9 sets, daily range): BP systolic 88–127; BP diastolic 48–66; PULSE 10–60; RESP 15–18; TEMP 36.5–36.6; O2SAT 85–94
[2024-05-11] MEDS: aspirin 81 mg EC Tablet PO (05:20)
[2024-05-11] MEDS: levothyroxine 25 mcg Tablet PO (05:20)
[2024-05-11] MEDS: pantoprazole DR 40 mg Tablet PO (05:20)
[2024-05-11 06:18] LABS: Glucose Point of Care 87 mg/dL (70-110)
[2024-05-11 06:30] LABS: Basophils # 0.1 10^3/uL (0.0-0.1); Basophils % 0.9 %; Eosinophils # 0.4 10^3/uL (0.0-0.8); Lymphocytes # 1.6 10^3/uL (0.8-4.8); Lymphocytes % 12.9 %; Mean Corpuscular Hemoglobin 28.4 pg (27-33); Mean Corpuscular Volume 94.8 fl (82-101); Mean Platelet Volume 9.2 fL (7.4-10.4); Monocytes # 0.9 10^3/uL (0.2-0.9); Monocytes % 7.4 %; Neutrophils # 9.04 10^3/uL (1.8-7.7); Neutrophils % 75.2 %; Nucleated Red Blood Cells % 0 %; Platelet Count 338 10^3/cmm (157-399); Red Blood Count 3.48 10^6/uL (3.85-5.65); Red Cell Distribution Width 14.4 % (12.1-15.1); White Blood Count 12.02 10^3/uL (3.29-11.43)
[2024-05-11 06:51] LABS: Alanine Aminotransferase 9 U/L (0-41); Albumin Level 3.8 g/dL (3.5-5.2); Alkaline Phosphatase 275 U/L (40-130); Anion Gap 22.5 (5-19); Aspartate Amino Transferase 10 U/L (0-40); Blood Urea Nitrogen 42 mg/dL (8-23); C Reactive Protein 23.1 mg/L (0.0-4.9); Calcium 9.9 mg/dL (8.5-10.5); Carbon Dioxide 25 mmol/L (22-29); Chloride 95 mmol/L (98-107); Creatinine Clr Calc Pharmacy 10.7387; Globulin 3.2 g/dL (1.3-4.6); Glucose 70 mg/dL (65-115); Magnesium 2.4 mg/dL (1.7-2.3); Osmolality Calculated 295 mOsm/kg (285-295); Phosphorus 4.5 mg/dL (2.5-4.5); Potassium 4.5 mmol/L (3.5-5.1); Sodium 138 mmol/L (136-145); Total Bilirubin 0.3 mg/dL (0.15-1.2)
[2024-05-11 06:58] LABS: Procalcitonin 0.39 ng/mL (0-0.5)
--- NOTE | 2024-05-11 07:54 | P.PN_ITS ---
Subjective 2 Subjective: no new c/o Medications: Reviewed: Yes Vitals/I&O/Wt Last Vital Signs Temp 97.8 F 05/11/24 04:00 Pulse 10 L 05/11/24 06:00 Resp 15 05/11/24 04:00 BP 105/48 05/11/24 04:00 Pulse Ox 90 05/11/24 04:00 O2 Del Method Nasal Cannula 05/11/24 04:00 O2 Flow Rate 1 05/11/24 04:00 05/10/24 05/11/24 05/11/24 22:59 06:59 14:59 Intake Total 240 / 840 100 / 940 Output Total 0 / 1385 Balance 240 / -545 100 / -445 Weight last 48 hrs Weight 92.261 kg Weight 92.1 kg Weight 91.263 kg Physical Exam 2 Narrative: AWAKE ,A LERT NO DISTRESS S1S2 RRR PER REPORT LUNGS CLEAR HUNG per report NO EDEMA Data 05/11/24 05:31 05/11/24 05:31 Micro: Microbiology 05/10/24 05:27 Occult Blood (FIT) - Final Stool - Stool Aspirate A&P Assessment and plan (1) End stage renal disease on dialysis: Plan 74-year-old gentleman history of A-fib hypothyroidism, anemia, ESRD, coronary artery disease, carotid artery disease. 1. CHF with voume overlaod , last EF 65 % 2. ESRD : TTS schedule , volume overload short of breath , HD today 3. Anemia: Epogen ordered , check iron studies check SPEP serum immunofixation. 4. met acidosis , improved 5. LE edema , consider venous doppler 9. Hypotension , holding amlodipine The patient was seen and examined using audiovisual equipment with the aid of Dr. Willson. The patient consented to hemodialysis and to telehealth. Attestations 2 Medical Necessity Statement*: per jr Coding Level of Care Code Acute Code for [facility] Diagnoses End stage renal disease on dialysis N18.6; Z99.2
[2024-05-11] MEDS: sevelamer 800 mg Tablet 1600 MG PO ×2 (09:16→17:46)
[2024-05-11] MEDS: allopurinol 300 mg Tablet PO (09:17)
[2024-05-11] MEDS: escitalopram 10 mg Tablet 20 MG PO (09:17)
[2024-05-11] MEDS: terazosin 5 mg Capsule 10 MG PO ×2 (09:37→17:46)
[2024-05-11] MEDS: cefTRIAXone 1,000 mg SDV 1000 MG IVP (09:37)
[2024-05-11] MEDS: AZITHROMYCIN ADD-Vantage 500 MG in 0.9% NaCl ADD-Vantage 250 ML 250 MG IV (10:18)
[2024-05-11 11:21] LABS: Glucose Point of Care 178 mg/dL (70-110)
--- NOTE | 2024-05-11 11:23 | P.DS_ITS ---
Discharge Providers Date of Admission: 05/06/24 12:10 Date of Discharge: May 11, 2024 Attending Provider at Admission: Zachary Garcia Attending Provider at Discharge: Tremaine Hopkins MD Primary Care Provider: Raul Bautista MD Diagnoses at Discharge Discharge Diagnosis (1) End stage renal disease on dialysis: Status: Acute Reason for Visit Reason for Visit: SOB Hospital Course Hospital Course This is a 74-year-old male with a past medical history of end-stage renal disease on hemodialysis TTS, carotid stenosis, atrial fibrillation not on anticoagulation due to history of anemia, CAD with multiple stents, hypertension, diabetes who presents to [facility] for shortness of breath Patient was admitted to [facility] for acute hypoxic respiratory failure secondary to fluid overload, CHF, he received inpatient dialysis, dialyzed over 7 L negative, overall clinically improving, on 2 L, discharged home with resumption of his home dialysis regimen There was also concerns for early onset pneumonia on discharge, given his leukocytosis complaints of cough, we will discharge him on cefdinir Patient's hospitalization was complicated with chest pressure, CT negative for PE, cardiac echo showed EF of 55%, medically managed cardiology consulted underwent stress testing, low probability of CAD. No recurrent chest pain during his hospitalixation. Will be discharged on aspirin, statin, Plavix, Coreg with a close follow-up with primary care and cardiology as outpatient Patient's hospitalization was complicated with acute cardiac anemia hemoglobin is low at 7.8, although his Hemoccult was negative, concerns for slow GI bleed, managed on Protonix, Carafate. Hemodynamically stable on discharge, no complaints of bloody black stools, resume his aspirin and Plavix at discharge with close follow-up with general surgery as outpatient for consideration of EGD and colonoscopy For his atrial fibrillation, continue home medication he is on aspirin and Plavix, not on anticoagulation due to concerns for anemia as above, discussed risk and benefits, shared decision making, he voiced understanding, all questions answered, agreed to proceed with plan to continue home medications. Follow-up with workup as above decision when and if to cardiac evaluation will be based upon workup as above and follow-up with cardiology. Physical Exam Const: COMMON NORMALS: no acute distress and patient oriented x3 Resp: COMMON NORMALS: normal respiratory effort, No retractions, No use of accessory muscles and clear to auscultation bilaterally AUSCULTATION: clear to auscultation bilaterally Cardio: COMMON NORMALS: regular rate, regular rhythm, S1 normal heart sound present and S2 normal heart sound present RATE: regular rate RHYTHM: regular rhythm HEART SOUNDS: S1 normal heart sound present and S2 normal heart sound present GI: COMMON NORMALS: Normal to inspection, nondistended, normoactive bowel sounds present Extremity: COMMON NORMALS: no pedal edema Neuro: COMMON NORMALS: patient oriented x3 Psych: COMMON NORMALS: mental status grossly normal Discharge Data Studies Completed and Pending Completed Studies During Hospitalization Category Date Time Status CT abdomen pelvis wo con [id number] Routine Cat Scan 05/08/24 15:[address] chest wo con [id number] Stat Cat Scan 05/06/24 11:13 Completed CTA chest [CT angio chest PE protcl 24029] Routine Cat Scan 05/06/24 13:44 Completed Cardiac Stress Test MIBI [Sestamibi Stress Test Request Exams 05/10/24 06:00 Draft ] Routine XR chest 1V portable [id number] Routine Exams 05/09/24 15:17 Completed XR chest 1V portable [id number] Routine Exams 05/10/24 07:00 Completed XR chest 1V portable [id number] Stat Exams 05/06/24 10:01 Completed NM radha perf SPECT r/s* [id number] Routine Nuc Med 05/10/24 21:21 [place] [id number] Stat Ultrasound 05/06/24 11:47 Completed CV. echo complete* [id number] Stat Ultrasound 05/06/24 11:47 Completed Pending at discharge Category Date Time Status Cardiac Stress Test MIBI [Sestamibi Stress Test Request Exams 05/09/24 21:21 Ordered ] Routine C Reactive Protein AM LABS Lab 05/12/24 04:00 Ordered Complete Blood Count w/Auto AM LABS Lab 05/12/24 04:00 Ordered Comprehensive Metabolic Panel AM LABS Lab 05/12/24 04:00 Ordered Magnesium AM LABS Lab 05/12/24 04:00 Ordered Phosphorus AM LABS Lab 05/12/24 04:00 Ordered Procalcitonin AM LABS Lab 05/12/24 04:00 Ordered Radiology Impressions Chest CT 05/06/24 11:13 IMPRESSION: 1. Cardiomegaly with mild bilateral perihilar and lower lobe groundglass opacities likely due to pulmonary edema. Trace pleural fluid with compressive atelectasis in the lung bases. 2. No focal pneumonia. 3. Subsegmental atelectasis in the RIGHT middle lobe and lingula. 4. Small esophageal hiatal hernia. 5. No other acute findings. Chest CTA 05/06/24 13:44 IMPRESSION: 1. No evidence of pulmonary embolism. 2. Dilated main pulmonary artery can be seen with pulmonary arterial hypertension. 3. Ill-defined ground-glass opacities throughout the lungs likely represent mild pulmonary edema. 4. Trace bilateral pleural effusions with adjacent relaxation atelectasis. 5. Reflux of contrast into the IVC/hepatic veins can be seen with tricuspid regurgitation and/or right heart failure. 6. Moderate cardiomegaly. Abdomen/Pelvis CT 05/08/24 15:12 IMPRESSION: 1. Mild bilateral pulmonary edema 2. Cardiomegaly and coronary artery disease 3. Stable postsurgical changes in the lumbar spine. 4. Right renal cysts as described COMMENTS: 1. Consistent with the [employer]'s Incidental Findings Committee white paper (J Am Sosa Radiol 2017): For any incidental adrenal lesion greater than or equal to 1 cm but less than or equal to 4 cm classified in this report as benign, likely benign, or containing fat (including classification as an adenoma or myelolipoma), no follow-up imaging is recommended per consensus recommendations based on imaging criteria. Further lab evaluation could be pursued if warranted based on clinical findings. 2. Consistent with the [employer]'s Incidental Findings Committee white paper (J Am Sosa Radiol 2018): Any incidental renal lesion less than 1 cm or classified as too small to characterize, or any incidental cystic renal lesion characterized as simple-appearing, is likely benign. No follow-up imaging is recommended for these lesions per consensus recommendations based on imaging criteria. Chest X-Ray 05/10/24 07:00 IMPRESSION: Stable chest. No acute cardiopulmonary findings. Laboratory Results WBC 12.02 10^3/uL (3.29-11.43) H 05/11/24 05:31 RBC 3.48 10^6/uL (3.85-5.65) L 05/11/24 05:31 Hgb 9.90 g/dL (11.27-16.99) L 05/11/24 05:31 Hct 33.0 % (37-53) L 05/11/24 05:31 MCV 94.8 fl (82-101) 05/11/24 05:31 MCH 28.4 pg (27-33) 05/11/24 05:31 MCHC 30.0 g/dL (30-55) 05/11/24 05:31 RDW 14.4 % (12.1-15.1) 05/11/24 05:31 Plt Count 338 10^3/cmm (157-399) 05/11/24 05:31 MPV 9.2 fL (7.4-10.4) 05/11/24 05:31 Neut % (Auto) 75.2 % 05/11/24 05:31 Lymph % (Auto) 12.9 % 05/11/24 05:31 [place] % (Auto) 7.4 % 05/11/24 05:31 Eos % (Auto) 3.0 % 05/11/24 05:31 Baso % (Auto) 0.9 % 05/11/24 05:31 Neut # (Auto) 9.04 10^3/uL (1.8-7.7) H 05/11/24 05:31 Lymph # (Auto) 1.6 10^3/uL (0.8-4.8) 05/11/24 05:31 [place] # (Auto) 0.9 10^3/uL (0.2-0.9) 05/11/24 05:31 Eos # (Auto) 0.4 10^3/uL (0.0-0.8) 05/11/24 05:31 Baso # (Auto) 0.1 10^3/uL (0.0-0.1) 05/11/24 05:31 Nucleated RBC % (auto) 0 % 05/11/24 05:31 Nucleated RBCs # 0.0 /100WBC 05/11/24 05:31 Specimen Type Arterial 05/06/24 10:12 Sample Site Brachial, right 05/06/24 10:12 ABG pH 7.42 (7.35-7.45) 05/06/24 10:12 ABG pCO2 49.2 mmHg (35-45) H 05/06/24 10:12 ABG pO2 61.0 mmHg (80.0-100.0) L 05/06/24 10:12 ABG PO2/FiO2 Ratio 217 05/06/24 10:12 ABG HCO3 31.5 mmol/L (22-26) H 05/06/24 10:12 ABG O2 Saturation 91.9 05/06/24 10:12 ABG Base Excess 6.2 mmol/L (-2.0-2.0) H 05/06/24 10:12 Ganesh Test N/a 05/06/24 10:12 A-a O2 Gradient 10.4 mmHg (5-10) H 05/06/24 10:12 Hematocrit 25.2 % (42-52) L 05/06/24 10:12 Hgb O2 Saturation 89.3 % (95-100) L 05/06/24 10:12 Carboxyhemoglobin 1.6 %THgb (0.4-20.1) 05/06/24 10:12 Methemoglobin 1.3 % (0.4-1.5) 05/06/24 10:12 Total Hemoglobin 8.2 g/dL (14-18) L 05/06/24 10:12 Sodium 139.0 mmol/L (131-143) 05/06/24 10:12 Potassium 4.5 mmol/L (3.5-5.0) 05/06/24 10:12 Glucose 254.0 mg/dL (70-115) H 05/06/24 10:12 Ionized Calcium 1.1 mmol/L (1.1-1.4) 05/06/24 10:12 O2 Delivery Device Nc 05/06/24 10:12 O2 Liters/Min 2.0 % 05/06/24 10:12 FiO2 28.0 % 05/06/24 10:12 Rn Or Lpn ID Amh 05/06/24 10:12 Sodium 138 mmol/L (136-145) 05/11/24 05:31 Potassium 4.5 mmol/L (3.5-5.1) 05/11/24 05:31 Chloride 95 mmol/L (98-107) L 05/11/24 05:31 Carbon Dioxide 25 mmol/L (22-29) 05/11/24 05:31 Anion Gap 22.5 (5-19) H 05/11/24 05:31 BUN 42 mg/dL (8-23) H 05/11/24 05:31 Creatinine 6.3 mg/dL (0.7-1.2) H* 05/11/24 05:31 GFR Calculation Not Reportable 05/11/24 05:31 Glucose 70 mg/dL (65-115) 05/11/24 05:31 POC Glucose 178 mg/dL (70-110) H 05/11/24 11:07 Calculated Osmolality 295 mOsm/kg (285-295) 05/11/24 05:31 Lactic Acid 1.7 mmol/L (0.5-2.2) 05/06/24 10:16 Uric Acid 4.4 mg/dL (3.4-7.0) 05/06/24 10:16 Calcium 9.9 mg/dL (8.5-10.5) 05/11/24 05:31 Phosphorus 4.5 mg/dL (2.5-4.5) 05/11/24 05:31 Magnesium 2.4 mg/dL (1.7-2.3) H 05/11/24 05:31 Iron 39 ug/dL (59-158) L 05/07/24 05:12 TIBC 148 mcg/dl 05/07/24 05:12 % Saturation 26.3 % (20-50) 05/07/24 05:12 Unsat Iron Binding 109 ug/dL (112-347) L 05/07/24 05:12 Ferritin 1959 ng/mL (30-400) H 05/07/24 05:12 Total Bilirubin 0.3 mg/dL (0.15-1.2) 05/11/24 05:31 AST 10 U/L (0-40) 05/11/24 05:31 ALT 9 U/L (0-41) 05/11/24 05:31 Alkaline Phosphatase 275 U/L (40-130) H 05/11/24 05:31 Troponin T Baseline 151 ng/L (0-15) H* 05/06/24 10:16 Troponin T 120 Minute 149.1 ng/L (0-15) H 05/06/24 13:28 Delta Troponin T -1.9 ABS# (0-10) L 05/06/24 13:28 Troponin T Hi Sens 6Hr 167.5 ng/L (0-15) H 05/06/24 16:30 Troponin T Hi Sens 6Hr Delta 16.5 ng/L (0-12) H* 05/06/24 16:30 C-Reactive Protein 23.1 mg/L (0.0-4.9) H 05/11/24 05:31 Total Protein 7.0 g/dL (6.6-8.7) 05/11/24 05:31 Albumin 3.8 g/dL (3.5-5.2) 05/11/24 05:31 Globulin 3.2 g/dL (1.3-4.6) 05/11/24 05:31 Wdofn-4-Ywwwgrlay 0.5 g/dL (0.2-0.3) H 05/06/24 13:28 Pnicb-7-Ksdpsufec 1.0 g/dL (0.5-0.9) H 05/06/24 13:28 Ogza-5-Mrnezqxn 0.4 g/dL (0.4-0.6) 05/06/24 13:28 Pezy-2-Kvzaaqjv 0.6 g/dL (0.2-0.5) H 05/06/24 13:28 Gamma Globulins 0.8 g/dL (0.8-1.7) 05/06/24 13:28 Abnorm Protein Band 1 0.1 g/dL (NONE DETECTED) H 05/06/24 13:28 25-OH Vitamin D Total 40 ng/mL (30-100) 05/07/24 05:12 Procalcitonin 0.39 ng/mL (0-0.5) 05/11/24 05:31 TSH 2.10 uIU/mL (0.27-4.20) 05/06/24 10:16 PTH Intact 307.1 pg/mL (15-65) H 05/07/24 05:12 Calcium (PTH Intact) 8.6 mg/dL (8.5-10.5) 05/07/24 05:12 U Abnormal Prot Band 2 Not Reportable 05/06/24 13:28 U Abnormal Prot Band 3 Not Reportable 05/06/24 13:28 Pro Electrophoresis Int See note 05/06/24 13:28 Serum Immunofixation Normal pattern. 05/06/24 13:28 Free [place] Light Chains 123.1 mg/L (3.3-19.4) H 05/06/24 13:28 Free [place] Light Chain 78.6 mg/L (5.7-26.3) H 05/06/24 13:28 Free [place]/Lambda Ratio 1.57 (0.26-1.65) 05/06/24 13:28 Adenovirus (PCR) Not detected (NOT DETECT) 05/06/24 12:49 C. pneumoniae DNA (PCR) Not detected (NOT DETECT) 05/06/24 12:49 Coronavirus 229E (PCR) Not detected (NOT DETECT) 05/06/24 12:49 Hep Bs Antigen Non-reactive (Nonreactive) 05/06/24 10:16 Hep Bs Antibody 24.2 (11.5-1000) 05/06/24 10:16 Hepatitis C Antibody Non-reactive (Nonreactive) 05/06/24 10:16 Human Metapneumovir PCR Not detected (NOT DETECT) 05/06/24 12:49 Influenza A (H1) PCR Not detected (NOT DETECT) 05/06/24 12:49 Influ A (H1/09) PCR Not detected (NOT DETECT) 05/06/24 12:49 Influenza A (H3) PCR Not detected (NOT DETECT) 05/06/24 12:49 Influenza Type A (PCR) Not detected (NOT DETECT) 05/06/24 12:49 Influenza Type B (PCR) Not detected (NOT DETECT) 05/06/24 12:49 M. pneumoniae (PCR) Not detected (NOT DETECT) 05/06/24 12:49 Parainfluenza 1 (PCR) Not detected (NOT DETECT) 05/06/24 12:49 Parainfluenza 2 (PCR) Not detected (NOT DETECT) 05/06/24 12:49 Parainfluenza 3 (PCR) Not detected (NOT DETECT) 05/06/24 12:49 Parainfluenza 4 (PCR) Not detected (NOT DETECT) 05/06/24 12:49 RSV Type A (PCR) Not detected (NOT DETECT) 05/06/24 12:49 RSV Type B (PCR) Not detected (NOT DETECT) 05/06/24 12:49 Entero/Rhino (PCR) Not detected (NOT DETECT) 05/06/24 12:49 SARS-CoV-2 (PCR) Not detected (NOT DETECT) 05/06/24 12:49 Vitals Last Vital Signs Temp 97.7 F 05/11/24 08:00 Pulse 60 05/11/24 08:00 Resp 16 05/11/24 08:00 BP 121/64 05/11/24 08:00 Pulse Ox 93 05/11/24 08:00 O2 Del Method Nasal Cannula 05/11/24 08:00 O2 Flow Rate 2 05/11/24 08:00 Discharge Plan Discharge Patient Disposition: Home Condition: Stable Prescriptions: New cefdinir 300 mg capsule 300 mg PO BID 7 Days Qty: 14 0RF sucralfate [Carafate] 1 gram tablet 1 g PO BID 28 Days Qty: 56 0RF Continued terazosin 10 mg capsule 10 mg PO BID acetaminophen [Tylenol Extra Strength] 500 mg tablet 1,000 mg PO Q6H PRN (Reason: Pain) rosuvastatin [Crestor] 10 mg tablet 10 mg PO BEDTIME sevelamer carbonate 800 mg tablet 1,600 mg PO BID allopurinol 300 mg tablet 300 mg PO DAILY escitalopram oxalate [Lexapro] 20 mg tablet 20 mg PO DAILY irbesartan 300 mg tablet 300 mg PO DAILY cholecalciferol (vitamin D3) 50 mcg (2,000 unit) capsule 50 mcg PO DAILY levothyroxine 25 mcg Tablet 25 mcg PO QAM clopidogrel 75 mg tablet 75 mg PO BEDTIME Hold Instructions: Resume on 07/10/21. aspirin 81 mg tablet,delayed release (DR/EC) 81 mg PO QAM Hold Instructions: Resume on 07/07/21. cetirizine [Zyrtec] 10 mg Tablet 10 mg PO BID isosorbide mononitrate 60 mg Tablet Extended Release 24 Hr 60 mg PO BID Qty: 60 0RF furosemide [Lasix] 80 mg Tablet 80 mg PO BID insulin glargine 100 unit/mL (3 mL) Insulin Pen 24 unit SUBCUT BEDTIME nitroglycerin [Nitrostat] 0.4 mg Tablet, Sublingual 0.4 mg SUBLINGUAL Q5M PRN (Reason: Chest Pain) Rx Instructions: do not exceed 3 doses per episode carvedilol 25 mg Tablet 12.5 mg PO BID folic acid 400 mcg Tablet 0.4 mg PO DAILY docusate sodium [Colace] 100 mg Capsule 100 mg PO BID Changed amlodipine 10 mg tablet 5 mg PO DAILY 30 Days Qty: 30 0RF pantoprazole 40 mg tablet,delayed release (DR/EC) 40 mg PO BID Qty: 60 0RF No Action (DME) Diabetic Shoes See Rx Instructions .ROUTE .MEDSUPPLY Qty: 1 0RF Rx Instructions: As directed [employer] with 3 pairs of inserts (DME) Diabetic Shoes See Rx Instructions .ROUTE .MEDSUPPLY Qty: 1 0RF Rx Instructions: As directed By [employer] with 3 pairs of inserts (DME) FreeStyle Inocencia 14 Day Sensor Kit See Rx Instructions .Route Qty: 1 0RF Rx Instructions: As directed (DME) FreeStyle Inocencia 14 Day [place] Misc See Rx Instructions .Route Qty: 1 0RF Rx Instructions: As directed (DME) BIPAP and supplies See Rx Instructions .Route .MEDSUPPLY Qty: 1 0RF Rx Instructions: with 2L of oxygen when in use Discharge Orders: Discharge Order (Routine); Ordered 05/11/24 Ordered By: Tremaine Hopkins Referrals: [facility] - [Outside] Dipak Clarke MD [Physician] - 1 month (We have notified your physician's clinic of the need for a follow-up appointment to be scheduled. If you have not heard from them within the next 2 business days, please call them directly. ) Kenya Ryan MD [Physician] - 2 weeks (We have notified your physician's clinic of the need for a follow-up appointment to be scheduled. If you have not heard from them within the next 2 business days, please call them directly. ) Raul Bautista MD [Primary Care Provider] - 05/18/24 11:00 am Discharge Diet: Cardiac Discharge Activity: Resume usual activity Patient Instructions: Amlodipine (By mouth), Cefdinir (By mouth), Opioid Safety Activity Restrictions/Additional Instructions: - If you have recurrent chest pain please go to the emergency room -Please follow-up with primary care provider for recheck hemoglobin in 48 hours -Follow-up with general surgery in 1 month for consideration EGD and colonoscopy acute on chronic anemia -If you have any strokelike symptoms please call 911 -Please limit fluid intake to 1 L of fluid a day -Continue your regular dialysis schedule Discharge Attestations Time Spent in Discharge Care*: greater than 30 min Status at Discharge: Cognitive status at discharge: cognitively intact , Behavioral status at discharge: cooperative , Quality Metrics Clinical Quality Measures [ No reported AMI, CVA or VTE this stay] Coding Level of Care Code 59504 Total time (in minutes) for Discharge: 45 Diagnoses End stage renal disease on dialysis N18.6; Z99.2
[2024-05-11] MEDS: heparin, porcine 1,000 unit/mL INJ 10 mL 1000 UNIT IV (12:00)
[2024-05-11 17:03] LABS: Glucose Point of Care 131 mg/dL (70-110)
[2024-05-11] MEDS: enoxaparin 30 mg/0.3 mL Syringe SUBCUT (17:46)
--- NOTE | 2024-05-11 18:19 | PC.NURSE ---
Pt qualifies for 3L/O2 at all times. Pt has taken off oxygen multiple times this evening with saturations in the 70s. This RN encourages pt to use oxygen. HOME states that pt refused oxygen delivery. When questioned, pt confirms this. Pt is educated on risks of not using oxygen, including possibility of . Pt then states he would like oxygen delivered. HOME states they will bring it back, but will be up to 3 hours because of other delivery needs. Pt verbalizes understanding.
== END 2024-05-11 19:46 | disposition home or self-care (01) | DRG 291 ==
LOC: ER 11:59 → MEDSURG 12:10
PROVIDERS: Internal Medicine Nephrology; Admitting Provider Internal Medicine; Emergency Provider Emergency Medicine; PCP Family Medicine; Visit Provider Family Medicine
DX: I13.2 Hypertensive heart and chronic kidney disease with heart failure and with stage 5 chronic kidney disease, or end stage renal disease (principal); I50.33 Acute on chronic diastolic (congestive) heart failure; N18.6 End stage renal disease; J96.01 Acute respiratory failure with hypoxia; J18.9 Pneumonia, unspecified organism; K92.2 Gastrointestinal hemorrhage, unspecified; E87.20 Acidosis, unspecified; E11.22 Type 2 diabetes mellitus with diabetic chronic kidney disease; Z99.2 Dependence on renal dialysis; I48.91 Unspecified atrial fibrillation; I25.10 Atherosclerotic heart disease of native coronary artery without angina pectoris; D64.9 Anemia, unspecified; I65.23 Occlusion and stenosis of bilateral carotid arteries; E03.9 Hypothyroidism, unspecified; G47.33 Obstructive sleep apnea (adult) (pediatric); E78.5 Hyperlipidemia, unspecified; R07.89 Other chest pain; I95.9 Hypotension, unspecified; Z95.5 Presence of coronary angioplasty implant and graft; Z86.73 Personal history of transient ischemic attack (TIA), and cerebral infarction without residual deficits; I25.2 Old myocardial infarction; Z79.02 Long term (current) use of antithrombotics/antiplatelets; Z79.82 Long term (current) use of aspirin; Z79.4 Long term (current) use of insulin
CPT/HCPCS: 36415; 36416; 36600; 71045; 71250; 71275; 74176; 78452; 80051; 80053; 82274; 82306; 82310; 82330; 82728; 82805; 82962; 83540; 83550; 83605; 83735; 83883; 83970; 84100; 84145; 84155; 84165; 84443; 84484; 84550; 85025; 86140; 86334; 86706; 86803; 87040; 87340; 87486; 87581; 87633; 90935; 92610; 93005; 93017; 93306; 93970; 94760; 96372; 96374; 96375; 97116; 97161; 99285; A9500; J0456; J0696; J1644; J1650; J1815; J1940; J2405; J2785; J7050; P9047; Q3014

== ENCOUNTER 2024-05-15 13:13 | Inpatient (IN) | payer MEDICARE, SELFPAY ==
[2024-05-15] VITALS (14 sets, daily range): BP systolic 107–128; BP diastolic 57–75; PULSE 50–60; RESP 16–18; TEMP 36.5–37; O2SAT 93–97; BMI 32.4
--- NOTE | 2024-05-15 13:36 | W.ED.WEAKNES ---
HPI - Weakness General: Chief complaint: Weakness Stated complaint: hypotension Time Seen by Provider: 05/15/24 13:15 Source: patient and old records reviewed History of Present Illness: Patient is a 74-year-old gentleman with a history of end-stage renal disease, on hemodialysis, history of atrial fibrillation and anemia who presents from dialysis clinic due to concern for hypotension. He was admitted to the hospital and discharged just 1 week ago. He had a prolonged stay with multiple days of dialysis due to fluid overload. He was supposed to get dialysis today and upon arrival there was noted to apparently have a systolic blood pressure of 80 and referred to the ER. He states he has had some heartburn since yesterday but otherwise has no acute complaints. Associated symptoms: Reports chest pain; Denies chills, melena, fever(s), nausea or vomiting Review of Systems Const: Reports: fatigue; Denies: fever(s), chills or body aches Card: Reports: chest pain; Denies: palpitations Resp: Denies: dyspnea or productive cough GI: Denies: abdominal pain, nausea, vomiting, coffee ground emesis, diarrhea or melena Skin/Breast: Denies: rash PFSH ED PFSH: Medical History Atrial fibrillation with slow ventricular response Hypothyroidism Hemodialysis access site with arteriovenous graft Paget's disease Chronic kidney disease Chest pain NSTEMI (non-ST elevated myocardial infarction) Cardiac enzymes elevated Diabetes mellitus with diabetic polyneuropathy ESRD (end stage renal disease) CAD (coronary artery disease) Chronic kidney disease (CKD) stage G5/A1, glomerular filtration rate (GFR) less than or equal to 15 mL/min/1.73 square meter and albuminuria creatinine ratio less than 30 mg/g History of 2019 novel coronavirus disease (COVID-19) Acute kidney injury superimposed on CKD Congestive 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 Anemia CVA (cerebral vascular accident) Dyslipidemia Carotid stenosis, bilateral Essential hypertension Diabetes 1.5, managed as type 2 Chronic back pain KAITLYNN (obstructive sleep apnea) Surgical History History of esophagogastroduodenoscopy (EGD) 10 yrs ago Hx of cholecystectomy S/P hemodialysis catheter insertion S/P angioplasty with stent Previous back surgery S/P cataract extraction Family History Mother CAD (coronary artery disease) Stroke Sister Hypertension Social History Smoking and tobacco/nicotine status: never used tobacco/nicotine Alcohol intake: never Substance/Drug Use: never Household members: spouse Marital status: service: Yes branch: [employer] Current occupational status: employed 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 Current gender identity: Male Physical Exam Const: COMMON NORMALS: no acute distress and alert GENERAL APPEARANCE: cooperative ORIENTATION/CONSCIOUSNESS: Yes awake OTHER: Awake and alert 74-year-old male in no acute distress HENMT: COMMON NORMALS: normocephalic and atraumatic HEAD & SCALP: normocephalic and atraumatic Eye: COMMON NORMALS: conjunctivae normal CONJUNCTIVA: Yes conjunctivae normal Neck/C-Spine: GENERAL: Yes normal visual inspection Resp: COMMON NORMALS: normal respiratory effort, No retractions and No use of accessory muscles Cardio: COMMON NORMALS: Peripheral pulses 2+ throughout PERIPHERAL PULSES: Peripheral pulses 2+ throughout OTHER: Irregular irregular, GI: COMMON NORMALS: Soft to palpation and non-tender PALPATION: Yes Soft to palpation Extremity: COMMON NORMALS: full ROM and no pedal edema Neuro: COMMON NORMALS: no focal motor deficits SENSORIUM/ORIENTATION: Yes alert Skin: COMMON NORMALS: no rashes or lesions noted GENERAL SKIN EXAM: no rashes or lesions noted Course Vital Signs: Vital signs: Vital Signs Temperature 97.9 F 05/15/24 13:14 Pulse Rate 56 L 05/15/24 13:14 Respiratory Rate 17 05/15/24 13:14 Blood Pressure 120/69 05/15/24 13:14 Pulse Oximetry 96 05/15/24 13:14 Oxygen Delivery Me thod Nasal Cannula 05/15/24 13:14 Oxygen Flow Rate 3 05/15/24 13:14 MDM - Weakness Medical Decision Making Patient is a 74-year-old gentleman who presents to the ER from dialysis clinic due to concern for hypotension. He has no acute complaints on my exam other than he states he has had some heartburn since last night. No fevers or chills. No vomiting. No diarrhea. No exacerbating or alleviating factors. His workup here is remarkable for some hyperkalemia with potassium of 5.8. Labs are consistent with renal disease with elevated creatinine. His troponin is elevated which is likely due to his renal disease however delta troponin is ordered. I spoke with Dr. Houser with the hospitalist service who will admit to the cardiac stepdown unit and consult nephrology. Lab Data I reviewed the patient's lab results. 05/15/24 13:44 05/15/24 13:44 Radiology Impressions Chest X-Ray 05/15/24 14:30 IMPRESSION: 1. No acute findings. 2. Right scapular bone sclerosis and trabecular thickening. Possible Paget's disease of bone. No change since 05/06/2024. Laboratory Results WBC 13.28 10^3/uL (3.29-11.43) H 05/15/24 13:44 RBC 3.85 10^6/uL (3.85-5.65) 05/15/24 13:44 Hgb 10.90 g/dL (11.27-16.99) L 05/15/24 13:44 Hct 34.6 % (37-53) L 05/15/24 13:44 MCV 89.9 fl (82-101) 05/15/24 13:44 MCH 28.3 pg (27-33) 05/15/24 13:44 MCHC 31.5 g/dL (30-55) 05/15/24 13:44 RDW 14.6 % (12.1-15.1) 05/15/24 13:44 Plt Count 281 10^3/cmm (157-399) 05/15/24 13:44 MPV 9.5 fL (7.4-10.4) 05/15/24 13:44 Neut % (Auto) 77.4 % 05/15/24 13:44 Lymph % (Auto) 12.0 % 05/15/24 13:44 [place] % (Auto) 7.0 % 05/15/24 13:44 Eos % (Auto) 1.7 % 05/15/24 13:44 Baso % (Auto) 0.9 % 05/15/24 13:44 Neut # (Auto) 10.27 10^3/uL (1.8-7.7) H 05/15/24 13:44 Lymph # (Auto) 1.6 10^3/uL (0.8-4.8) 05/15/24 13:44 [place] # (Auto) 0.9 10^3/uL (0.2-0.9) 05/15/24 13:44 Eos # (Auto) 0.2 10^3/uL (0.0-0.8) 05/15/24 13:44 Baso # (Auto) 0.1 10^3/uL (0.0-0.1) 05/15/24 13:44 Nucleated RBC % (auto) 0 % 05/15/24 13:44 Nucleated RBCs # 0.0 /100WBC 05/15/24 13:44 Sodium 132 mmol/L (136-145) L 05/15/24 13:44 Potassium 5.8 mmol/L (3.5-5.1) H 05/15/24 13:44 Chloride 88 mmol/L (98-107) L 05/15/24 13:44 Carbon Dioxide 22 mmol/L (22-29) 05/15/24 13:44 Anion Gap 27.8 (5-19) H 05/15/24 13:44 BUN 94 mg/dL (8-23) H* D 05/15/24 13:44 Creatinine 10.4 mg/dL (0.7-1.2) H* 05/15/24 13:44 GFR Calculation Not Reportable 05/15/24 13:44 Glucose 259 mg/dL (65-115) H 05/15/24 13:44 Calculated Osmolality 312 mOsm/kg (285-295) H 05/15/24 13:44 Calcium 10.2 mg/dL (8.5-10.5) 05/15/24 13:44 Phosphorus 3.6 mg/dL (2.5-4.5) 05/15/24 13:44 Magnesium 2.6 mg/dL (1.7-2.3) H 05/15/24 13:44 Total Bilirubin 0.3 mg/dL (0.15-1.2) 05/15/24 13:44 AST 19 U/L (0-40) 05/15/24 13:44 ALT 31 U/L (0-41) 05/15/24 13:44 Alkaline Phosphatase 311 U/L (40-130) H 05/15/24 13:44 Troponin T Baseline 152 ng/L (0-15) H* 05/15/24 13:44 Total Protein 7.3 g/dL (6.6-8.7) 05/15/24 13:44 Albumin 4.1 g/dL (3.5-5.2) 05/15/24 13:44 Globulin 3.2 g/dL (1.3-4.6) 05/15/24 13:44 All radiology interpretation(s) finalized by discharge EKG Data EKG 1: Interpretation: Atrial flutter with slow ventricular response. Rate of 55 bpm. Normal axis. QTc 387 ms. Discharge Plan Discharge Patient Disposition: Placed in Observation Clinical Impression: End stage renal disease on dialysis, Acute hypotension, Bradycardia, Acute hyperkalemia Condition: Stable Prescriptions: No Action terazosin 10 mg capsule 10 mg PO BID acetaminophen [Tylenol Extra Strength] 500 mg tablet 1,000 mg PO Q6H PRN (Reason: Pain) (DME) Diabetic Shoes See Rx Instructions .ROUTE .MEDSUPPLY Qty: 1 0RF Rx Instructions: As directed [facility] [employer] [facility] with 3 pairs of inserts ([facility] [place] Diabetic Shoes See Rx Instructions .ROUTE .MEDSUPPLY Qty: 1 0RF Rx Instructions: As directed By [employer] with 3 pairs of inserts rosuvastatin [Crestor] 10 mg tablet 10 mg PO BEDTIME sevelamer carbonate 800 mg tablet 1,600 mg PO BID ([facility] [place]) FreeStyle Inocencia 14 Day Sensor Kit See Rx Instructions .Route Qty: 1 0RF Rx Instructions: As directed ([facility] [place]) FreeStyle Inocencia 14 Day [place] Misc See Rx Instructions .Route Qty: 1 0RF Rx Instructions: As directed allopurinol 300 mg tablet 300 mg PO DAILY escitalopram oxalate [Lexapro] 20 mg tablet 20 mg PO DAILY irbesartan 300 mg tablet 300 mg PO DAILY cholecalciferol (vitamin D3) 50 mcg (2,000 unit) capsule 50 mcg PO DAILY (DME) BIPAP and supplies See Rx Instructions .Route .MEDSUPPLY Qty: 1 0RF Rx Instructions: with 2L of oxygen when in use levothyroxine 25 mcg Tablet 25 mcg PO QAM clopidogrel 75 mg tablet 75 mg PO BEDTIME Hold Instructions: Resume on 07/10/21. aspirin 81 mg tablet,delayed release (DR/EC) 81 mg PO QAM Hold Instructions: Resume on 07/07/21. cetirizine [Zyrtec] 10 mg Tablet 10 mg PO BID isosorbide mononitrate 60 mg Tablet Extended Release 24 Hr 60 mg PO BID Qty: 60 0RF furosemide [Lasix] 80 mg Tablet 80 mg PO BID insulin glargine 100 unit/mL (3 mL) Insulin Pen 24 unit SUBCUT BEDTIME cefdinir 300 mg capsule 300 mg PO BID 7 Days Qty: 14 0RF amlodipine 10 mg tablet 5 mg PO DAILY 30 Days Qty: 30 0RF sucralfate [Carafate] 1 gram tablet 1 g PO BID 28 Days Qty: 56 0RF pantoprazole 40 mg tablet,delayed release (DR/EC) 40 mg PO BID Qty: 60 0RF nitroglycerin [Nitrostat] 0.4 mg Tablet, Sublingual 0.4 mg SUBLINGUAL Q5M PRN (Reason: Chest Pain) Rx Instructions: do not exceed 3 doses per episode carvedilol 25 mg Tablet 12.5 mg PO BID folic acid 400 mcg Tablet 0.4 mg PO DAILY docusate sodium [Colace] 100 mg Capsule 100 mg PO BID Referrals: Raul Bautista MD [Primary Care Provider] - Coding Level of Care Code ED Stock Wetter for Chg Fwd Related Data Home Medications Medication Instructions Recorded Confirmed acetaminophen 500 mg tablet 1,000 mg PO Q6H PRN Pain 05/05/19 05/15/24 (Tylenol Extra Strength) terazosin 10 mg capsule 10 mg PO BID 05/05/19 05/15/24 aspirin 81 mg tablet,delayed 81 mg PO QAM 09/01/20 05/15/24 release clopidogrel 75 mg tablet 75 mg PO BEDTIME 09/01/20 05/15/24 levothyroxine 25 mcg tablet 25 mcg PO QAM 11/09/20 05/15/24 cetirizine 10 mg tablet (Zyrtec) 10 mg PO BID 11/14/20 05/15/24 rosuvastatin 10 mg tablet (Crestor) 10 mg PO BEDTIME 09/20/21 05/15/24 nitroglycerin 0.4 mg sublingual 0.4 mg sublingual Q5M PRN Chest 09/29/21 05/15/24 tablet (Nitrostat) Pain sevelamer carbonate 800 mg tablet 1,600 mg PO BID 02/13/22 05/15/24 furosemide 80 mg tablet (Lasix) 80 mg PO BID 11/14/22 05/15/24 carvedilol 25 mg tablet 12.5 mg PO BID 02/19/23 05/15/24 docusate sodium 100 mg capsule 100 mg PO BID 02/28/23 05/15/24 (Colace) folic acid 400 mcg tablet 0.4 mg PO DAILY 02/28/23 05/15/24 allopurinol 300 mg tablet 300 mg PO DAILY 03/17/23 05/15/24 escitalopram oxalate 20 mg tablet 20 mg PO DAILY 03/17/23 05/15/24 (Lexapro) cholecalciferol (vitamin D3) 50 50 mcg PO DAILY 03/26/24 05/15/24 mcg (2,000 unit) capsule irbesartan 300 mg tablet 300 mg PO DAILY 03/26/24 05/15/24 insulin glargine 100 unit/mL (3 24 unit SUBCUT BEDTIME 05/06/24 05/15/24 mL) subcutaneous pen Previous Rx's Medication Instructions Recorded Diabetic Shoes #1 ea 09/13/20 Diabetic Shoes #1 ea 10/25/20 BIPAP and supplies #1 ea 04/09/21 isosorbide mononitrate 60 mg 60 mg PO BID #60 tabs 08/20/22 tablet,extended release 24 hr flash glucose scanning reader #1 ea 01/31/23 (FreeStyle Inocencia 14 Day [place]) flash glucose sensor (FreeStyle #1 ea 01/31/23 Inocencia 14 Day Sensor kit) amlodipine 10 mg tablet 5 mg (1/2 x 10 mg) PO DAILY 30 05/11/24 days #30 tabs cefdinir 300 mg capsule 300 mg PO BID 7 days #14 caps 05/11/24 pantoprazole 40 mg tablet,delayed 40 mg PO BID #60 tabs 05/11/24 release sucralfate 1 gram tablet (Carafate) 1 g PO BID 4 weeks #56 tabs 05/11/24 Allergies Allergy/AdvReac Type Severity Reaction Status Date / Time chicken derived Allergy Unknown ADR-Nausea Verified 04/27/24 02:12 morphine AdvReac Mild dizzy & Verified 04/27/24 02:12 nauseous
--- NOTE | 2024-05-15 13:44 | ECG_ITS ---
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 Measurements Intervals [place] Rate: 56 P: 0 GA: 0 QRS: 0 QRSD: 113 T: 41 QT: 426 QTc: 411 Interpretive Statements ATRIAL FLUTTER WITH SLOW VENTRICULAR RESPONSE POSSIBLE ANTERIOR MYOCARDIAL INFARCTION , PROBABLY OLD [30 ms Q WAVE IN V3/V4, OR R < 0.2 mV IN V4] Compared to ECG 05/06/2024 17:35:18 Atrial fibrillation no longer present Myocardial infarct finding still present Electronically Signed On 05-15-2024 22:59:33 PACKAGING MATERIALS INSPECTOR by Daryl Ashraf M.D. [email or web address]
[2024-05-15 13:49] LABS: Basophils # 0.1 10^3/uL (0.0-0.1); Basophils % 0.9 %; Eosinophils # 0.2 10^3/uL (0.0-0.8); Eosinophils % 1.7 %; Hematocrit 34.6 % (37-53); Lymphocytes # 1.6 10^3/uL (0.8-4.8); Mean Corpuscular HGB Conc 31.5 g/dL (30-55); Mean Corpuscular Hemoglobin 28.3 pg (27-33); Mean Corpuscular Volume 89.9 fl (82-101); Mean Platelet Volume 9.5 fL (7.4-10.4); Monocytes # 0.9 10^3/uL (0.2-0.9); Neutrophils # 10.27 10^3/uL (1.8-7.7); Neutrophils % 77.4 %; Nucleated Red Blood Cells % 0 %; Platelet Count 281 10^3/cmm (157-399); Red Blood Count 3.85 10^6/uL (3.85-5.65); Red Cell Distribution Width 14.6 % (12.1-15.1); White Blood Count 13.28 10^3/uL (3.29-11.43)
[2024-05-15 14:07] LABS: Alanine Aminotransferase 31 U/L (0-41); Albumin Level 4.1 g/dL (3.5-5.2); Alkaline Phosphatase 311 U/L (40-130); Anion Gap 27.8 (5-19); Aspartate Amino Transferase 19 U/L (0-40); Calcium 10.2 mg/dL (8.5-10.5); Carbon Dioxide 22 mmol/L (22-29); Chloride 88 mmol/L (98-107); Creatinine Clr Calc Pharmacy 6.3709; Globulin 3.2 g/dL (1.3-4.6); Glucose 259 mg/dL (65-115); Magnesium 2.6 mg/dL (1.7-2.3); Osmolality Calculated 312 mOsm/kg (285-295); Phosphorus 3.6 mg/dL (2.5-4.5); Potassium 5.8 mmol/L (3.5-5.1); Sodium 132 mmol/L (136-145); Total Bilirubin 0.3 mg/dL (0.15-1.2); Total Protein 7.3 g/dL (6.6-8.7); Troponin(5th) Baseline 152 ng/L (0-15)
[2024-05-15 14:10] LABS: Blood Urea Nitrogen 94 mg/dL (8-23)
--- NOTE | 2024-05-15 14:30 | XRR_ITS ---
PROCEDURE INFORMATION: Exam: XR Chest Exam date and time: 05/15/2024 2:30 PM Age: 74 years old Clinical indication: Pain; Chest pressure; Prior surgery; Surgery date: 6+ months; Surgery type: Cardiac stent; Additional info: Chest pain; Bradycardia TECHNIQUE: Imaging protocol: Radiologic exam of the chest. Views: 1 view. COMPARISON: CR XR chest 1V portable [id number] 05/10/2024 9:15 AM FINDINGS: Lungs: There is no consolidation. Pleural spaces: There is no pleural effusion or pneumothorax. Heart/Mediastinum: Probable hiatal hernia. There is moderate cardiac enlargement. Diaphragm: There is mild asymmetric elevation of the right hemidiaphragm. Bones/joints: Asymmetric trabecular thickening and bone sclerosis in the right scapula. XR/XR chest 1V portable [id number] IMPRESSION: 1. No acute findings. 2. Right scapular bone sclerosis and trabecular thickening. Possible Paget's disease of bone. No change since 05/06/2024.
--- NOTE | 2024-05-15 15:26 | ECG_ITS ---
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 Measurements Intervals [place] Rate: 55 P: 0 NV: 0 QRS: -3 QRSD: 106 T: 30 QT: 399 QTc: 382 Interpretive Statements ATRIAL FLUTTER WITH SLOW VENTRICULAR RESPONSE LOW QRS VOLTAGE IN PRECORDIAL LEADS [QRS DEFLECTION < 1.0 mV IN CHEST LEADS] POSSIBLE ANTERIOR MYOCARDIAL INFARCTION , PROBABLY OLD [30 ms Q WAVE IN V3/V4, OR R < 0.2 mV IN V4] ABNORMAL RHYTHM ECG Compared to ECG 05/06/2024 17:35:18 Low QRS voltage now present Atrial fibrillation no longer present Myocardial infarct finding still present Electronically Signed On 05-15-2024 23:21:53 EMOTIONAL DISABILITIES TEACHER by Daryl Ashraf M.D. [email or web address]
[2024-05-15 15:45] LABS: Erythrocyte Sedimentation Rate 69 mm/hr (0-10)
[2024-05-15 15:53] LABS: C Reactive Protein 16.5 mg/L (0.0-4.9); Lactic Sepsis W/Reflex 1.9 mmol/L (0.5-2.2)
[2024-05-15 16:01] LABS: Procalcitonin 0.49 ng/mL (0-0.5)
--- NOTE | 2024-05-15 16:21 | PM.HP ---
Providers/Chief Complaint Admitting Physician: Tremaine Hopkins MD Primary Care Provider: Raul Bautista MD Chief Complaint: hypotension History of Present Illness Eliazar Hogan is a 74 year old male with a past medical history of end-stage renal disease on dialysis, carotid artery stenosis, atrial fibrillation not on anticoagulation due to history of anemia, CAD with multiple stents, hypertension, diabetes who presents to [facility] due to fatigue, malaise, low blood pressures, feeling unwell. Currently patient is alert oriented x 3, following all commands, he tells me that he has been feeling well recently, fatigue, malaise, no fevers, no chills, no cough no chest pain no shortness of breath, has more generalized abdominal pain but no diarrhea, no nausea, no vomiting no lightheadedness, no dizziness. He went to dialysis this morning and his blood pressure was low so he was directed to the emergency room. He denies any bloody or black stools. He is taking his all his medication as prescribed. Medications/Allergies Home Medications Medication Instructions Recorded Confirmed Last Taken Type acetaminophen 500 mg tablet 1,000 mg PO Q6H PRN Pain 05/05/19 05/15/24 11/14/22 History (Tylenol Extra Strength) terazosin 10 mg capsule 10 mg PO BID 05/05/19 05/15/24 05/15/24 History aspirin 81 mg tablet,delayed 81 mg PO QAM 09/01/20 05/15/24 05/15/24 History release clopidogrel 75 mg tablet 75 mg PO BEDTIME 09/01/20 05/15/24 05/14/24 History Diabetic Shoes #1 ea 09/13/20 05/15/24 12/05/21 Rx Diabetic Shoes #1 ea 10/25/20 05/15/24 12/05/21 Rx levothyroxine 25 mcg tablet 25 mcg PO QAM 11/09/20 05/15/24 05/15/24 History cetirizine 10 mg tablet (Zyrtec) 10 mg PO BID 11/14/20 05/15/24 05/15/24 History BIPAP and supplies #1 ea 04/09/21 05/15/24 12/05/21 Rx rosuvastatin 10 mg tablet (Crestor) 10 mg PO BEDTIME 09/20/21 05/15/24 05/14/24 History nitroglycerin 0.4 mg sublingual 0.4 mg sublingual Q5M PRN Chest 09/29/21 05/15/24 09/29/21 History tablet (Nitrostat) Pain 2 tabs sevelamer carbonate 800 mg tablet 1,600 mg PO BID 02/13/22 05/15/24 05/15/24 History isosorbide mononitrate 60 mg 60 mg PO BID #60 tabs 08/20/22 05/15/24 05/15/24 Rx tablet,extended release 24 hr furosemide 80 mg tablet (Lasix) 80 mg PO BID 11/14/22 05/15/24 05/15/24 History flash glucose scanning reader #1 ea 01/31/23 05/15/24 Unknown Rx (StreetHubStyle Inocencia 14 Day [place]) flash glucose sensor (FreeStyle #1 ea 01/31/23 05/15/24 Unknown Rx Inocencia 14 Day Sensor kit) carvedilol 25 mg tablet 12.5 mg PO BID 02/19/23 05/15/24 05/15/24 History docusate sodium 100 mg capsule 100 mg PO BID 02/28/23 05/15/24 05/15/24 History (Colace) folic acid 400 mcg tablet 0.4 mg PO DAILY 02/28/23 05/15/24 05/15/24 History allopurinol 300 mg tablet 300 mg PO DAILY 03/17/23 05/15/24 05/15/24 History escitalopram oxalate 20 mg tablet 20 mg PO DAILY 03/17/23 05/15/24 05/15/24 History (Lexapro) cholecalciferol (vitamin D3) 50 50 mcg PO DAILY 03/26/24 05/15/24 05/15/24 History mcg (2,000 unit) capsule irbesartan 300 mg tablet 300 mg PO DAILY 03/26/24 05/15/24 05/15/24 History insulin glargine 100 unit/mL (3 24 unit SUBCUT BEDTIME 05/06/24 05/15/24 05/14/24 History mL) subcutaneous pen amlodipine 10 mg tablet 5 mg (1/2 x 10 mg) PO DAILY 30 05/11/24 05/15/24 05/15/24 Rx days #30 tabs cefdinir 300 mg capsule 300 mg PO BID 7 days #14 caps 05/11/24 05/15/24 05/15/24 Rx pantoprazole 40 mg tablet,delayed 40 mg PO BID #60 tabs 05/11/24 05/15/24 05/15/24 Rx release sucralfate 1 gram tablet (Carafate) 1 g PO BID 4 weeks #56 tabs 05/11/24 05/15/24 05/15/24 Rx Allergies Allergy/AdvReac Type Severity Reaction Status Date / Time chicken derived Allergy Unknown ADR-Nausea Verified 04/27/24 02:12 morphine AdvReac Mild dizzy & Verified 04/27/24 02:12 nauseous PFSH Acute PFSH: Medical History Atrial fibrillation with slow ventricular response Hypothyroidism Hemodialysis access site with arteriovenous graft Paget's disease Chronic kidney disease Chest pain NSTEMI (non-ST elevated myocardial infarction) Cardiac enzymes elevated Diabetes mellitus with diabetic polyneuropathy ESRD (end stage renal disease) CAD (coronary artery disease) Chronic kidney disease (CKD) stage G5/A1, glomerular filtration rate (GFR) less than or equal to 15 mL/min/1.73 square meter and albuminuria creatinine ratio less than 30 mg/g History of 2019 novel coronavirus disease (COVID-19) Acute kidney injury superimposed on CKD Congestive 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 Anemia CVA (cerebral vascular accident) Dyslipidemia Carotid stenosis, bilateral Essential hypertension Diabetes 1.5, managed as type 2 Chronic back pain KAITLYNN (obstructive sleep apnea) Surgical History History of esophagogastroduodenoscopy (EGD) 10 yrs ago Hx of cholecystectomy S/P hemodialysis catheter insertion S/P angioplasty with stent Previous back surgery S/P cataract extraction Family History Mother CAD (coronary artery disease) Stroke Sister Hypertension Social History Smoking and tobacco/nicotine status: never used tobacco/nicotine Alcohol intake: never Substance/Drug Use: never Household members: spouse Marital status: service: Yes branch: [employer] Current occupational status: employed Current occupation: [email or web address] Current gender identity: Male Vitals/I&O/Wt Last Vital Signs Temp 97.9 F 05/15/24 13:14 Pulse 56 L 05/15/24 13:14 Resp 17 05/15/24 13:14 BP 120/69 05/15/24 13:14 Pulse Ox 96 05/15/24 13:14 O2 Del Method Nasal Cannula 05/15/24 13:14 O2 Flow Rate 3 05/15/24 13:14 Weight last 48 hrs Weight 88.451 kg Physical Exam Const: COMMON NORMALS: no acute distress and patient oriented x3 Eye: COMMON NORMALS: Equal, round and reactive pupils present Resp: COMMON NORMALS: normal respiratory effort, No retractions, No use of accessory muscles and clear to auscultation bilaterally AUSCULTATION: clear to auscultation bilaterally Cardio: COMMON NORMALS: no JVD, regular rate, regular rhythm, S1 normal heart sound present and S2 normal heart sound present RATE: regular rate RHYTHM: regular rhythm HEART SOUNDS: S1 normal heart sound present and S2 normal heart sound present GI: COMMON NORMALS: Normal to inspection, nondistended, normoactive bowel sounds present, Soft to palpation and non-tender : COMMON NORMALS: Yes no CVA tenderness Extremity: COMMON NORMALS: no pedal edema Neuro: COMMON NORMALS: patient oriented x3 and CN's II-XII intact bilaterally Psych: COMMON NORMALS: mental status grossly normal Data 05/15/24 13:44 05/15/24 13:44 Micro: Microbiology 05/15/24 15:45 Blood Culture - Preliminary Blood SPECIMEN COLLECTED 05/15/24 15:47 Blood Culture - Preliminary Blood SPECIMEN COLLECTED A&P Assessment and plan (1) Acute hypotension: (2) Bradycardia: (3) Non-ST elevated myocardial infarction (non-STEMI): Plan Acute hypotension -Currently normotensive in the emergency room -Lactic acid is to be drawn -No significant infectious findings, no skin breaks, no ulcers, chest x-ray no focal pneumonia, he has been on cefdinir for concerns for pneumonia during his last hospitalization he does not urinate we will obtain a UA, obtain a respiratory viral panel -Monitor for fevers -Serial abdominal exams, does complain of abdominal discomfort will do CT chest abdomen pelvis -Monitor closely -Could be polypharmacy from multiple blood pressure medications hold Coreg Bradycardia -Serial EKGs, short troponins, tolerated monitoring -Hold Coreg NSTEMI, serial EKGs, serial troponins, monitoring Missed dialysis, nephrology consulted for dialysis Type 2 diabetes mellitus, low-dose sliding scale Acute on chronic anemia, hemoglobin looks reasonable at 10.9, no bloody black stools reported, Protonix, Carafate Full code Heparin for DVT prophylaxis Attestations Medical Necessity Statement*: Patient requires hospitalization, for acute hypotension, bradycardia, NSTEMI, missed dialysis, type 2 diabetes mellitus, outpatient with observation Diagnoses Acute hypotension I95.9 Bradycardia R00.1 Non-ST elevated myocardial infarction (non-STEMI) I21.4
--- NOTE | 2024-05-15 16:32 | P.CONIM_ITS ---
Providers/Reason For Consult 2 Consulting Physician/Specialty*: [facility]/Nephrology Reason for Consult*: ESRD Attending Physician: Tremaine Hopkins MD Primary Care Provider: Raul Bautista MD History of Present Illness History of Present Illness Eliazar Hogan is a 74 year old male patient is a 74-year-old male with past medical history of end-stage renal disease on dialysis, coronary artery disease, A-fib, chronic anemia hypertension diabetes presented to the emergency department due to generalized weakness fatigue. Patient missed dialysis today. In the emergency department vital signs are stable, lab data significant for potassium of 5.8, elevated WBC count of 13,000, BUN 94 and creatinine 10. Patient was hypotensive in the emergency department that has improved now. Troponin elevated. Review of Systems 2 Narrative: negative Medications/Allergies Home Medications Medication Instructions Recorded Confirmed Last Taken Type acetaminophen 500 mg tablet 1,000 mg PO Q6H PRN Pain 05/05/19 05/15/24 11/14/22 History (Tylenol Extra Strength) terazosin 10 mg capsule 10 mg PO BID 05/05/19 05/15/24 05/15/24 History aspirin 81 mg tablet,delayed 81 mg PO QAM 09/01/20 05/15/24 05/15/24 History release clopidogrel 75 mg tablet 75 mg PO BEDTIME 09/01/20 05/15/24 05/14/24 History Diabetic Shoes #1 ea 09/13/20 05/15/24 12/05/21 Rx Diabetic Shoes #1 ea 10/25/20 05/15/24 12/05/21 Rx levothyroxine 25 mcg tablet 25 mcg PO QAM 11/09/20 05/15/24 05/15/24 History cetirizine 10 mg tablet (Zyrtec) 10 mg PO BID 11/14/20 05/15/24 05/15/24 History BIPAP and supplies #1 ea 04/09/21 05/15/24 12/05/21 Rx rosuvastatin 10 mg tablet (Crestor) 10 mg PO BEDTIME 09/20/21 05/15/24 05/14/24 History nitroglycerin 0.4 mg sublingual 0.4 mg sublingual Q5M PRN Chest 09/29/21 05/15/24 09/29/21 History tablet (Nitrostat) Pain 2 tabs sevelamer carbonate 800 mg tablet 1,600 mg PO BID 02/13/22 05/15/24 05/15/24 History isosorbide mononitrate 60 mg 60 mg PO BID #60 tabs 08/20/22 05/15/24 05/15/24 Rx tablet,extended release 24 hr furosemide 80 mg tablet (Lasix) 80 mg PO BID 11/14/22 05/15/24 05/15/24 History flash glucose scanning reader #1 ea 01/31/23 05/15/24 Unknown Rx (FreeStyle Inocencia 14 Day [place]) flash glucose sensor (FreeStyle #1 ea 01/31/23 05/15/24 Unknown Rx Inocencia 14 Day Sensor kit) carvedilol 25 mg tablet 12.5 mg PO BID 02/19/23 05/15/24 05/15/24 History docusate sodium 100 mg capsule 100 mg PO BID 02/28/23 05/15/24 05/15/24 History (Colace) folic acid 400 mcg tablet 0.4 mg PO DAILY 02/28/23 05/15/24 05/15/24 History allopurinol 300 mg tablet 300 mg PO DAILY 03/17/23 05/15/24 05/15/24 History escitalopram oxalate 20 mg tablet 20 mg PO DAILY 03/17/23 05/15/24 05/15/24 History (Lexapro) cholecalciferol (vitamin D3) 50 50 mcg PO DAILY 03/26/24 05/15/24 05/15/24 History mcg (2,000 unit) capsule irbesartan 300 mg tablet 300 mg PO DAILY 03/26/24 05/15/24 05/15/24 History insulin glargine 100 unit/mL (3 24 unit SUBCUT BEDTIME 05/06/24 05/15/24 05/14/24 History mL) subcutaneous pen amlodipine 10 mg tablet 5 mg (1/2 x 10 mg) PO DAILY 30 05/11/24 05/15/24 05/15/24 Rx days #30 tabs cefdinir 300 mg capsule 300 mg PO BID 7 days #14 caps 05/11/24 05/15/24 05/15/24 Rx pantoprazole 40 mg tablet,delayed 40 mg PO BID #60 tabs 01/21/25 01/25/25 01/25/25 Rx release sucralfate 1 gram tablet (Carafate) 1 g PO BID 4 weeks #56 tabs 05/11/24 05/15/24 05/15/24 Rx Allergies Allergy/AdvReac Type Severity Reaction Status Date / Time chicken derived Allergy Unknown ADR-Nausea Verified 04/27/24 02:12 morphine AdvReac Mild dizzy & Verified 04/27/24 02:12 nauseous PFSH Acute 2 PFSH: Medical History Atrial fibrillation with slow ventricular response Hypothyroidism Hemodialysis access site with arteriovenous graft Paget's disease Chronic kidney disease Chest pain NSTEMI (non-ST elevated myocardial infarction) Cardiac enzymes elevated Diabetes mellitus with diabetic polyneuropathy ESRD (end stage renal disease) CAD (coronary artery disease) Chronic kidney disease (CKD) stage G5/A1, glomerular filtration rate (GFR) less than or equal to 15 mL/min/1.73 square meter and albuminuria creatinine ratio less than 30 mg/g History of 2019 novel coronavirus disease (COVID-19) Acute kidney injury superimposed on CKD Congestive 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 Anemia CVA (cerebral vascular accident) Dyslipidemia Carotid stenosis, bilateral Essential hypertension Diabetes 1.5, managed as type 2 Chronic back pain KAITLYNN (obstructive sleep apnea) Surgical History History of esophagogastroduodenoscopy (EGD) 10 yrs ago Hx of cholecystectomy S/P hemodialysis catheter insertion S/P angioplasty with stent Previous back surgery S/P cataract extraction Family History Mother CAD (coronary artery disease) Stroke Sister Hypertension Social History Smoking and tobacco/nicotine status: never used tobacco/nicotine Alcohol intake: never Substance/Drug Use: never Household members: spouse Marital status: service: Yes branch: [employer] Current occupational status: employed Current occupation: [email or web address] Current gender identity: Male Vitals/I&O/Wt Last Vital Signs Temp 97.9 F 05/15/24 13:14 Pulse 56 L 05/15/24 13:14 Resp 17 05/15/24 13:14 BP 120/69 05/15/24 13:14 Pulse Ox 96 05/15/24 13:14 O2 Del Method Nasal Cannula 05/15/24 13:14 O2 Flow Rate 3 05/15/24 13:14 Weight last 48 hrs Weight 88.451 kg Physical Exam 2 Narrative: awake , alert PEERLA S1S2 RRR per report Lungs clear per report No edema Data 05/16/24 02:29 05/16/24 02:29 Micro: Microbiology 05/15/24 15:45 Blood Culture - Preliminary Blood SPECIMEN COLLECTED 05/15/24 15:47 Blood Culture - Preliminary Blood SPECIMEN COLLECTED A&P Assessment and plan (1) ESRD (end stage renal disease): Plan 1. End-stage renal disease: On TTS schedule, missed HD today, plan for HD today and ultrafiltration as tolerated 2. Hyperkalemia: HD as above on low potassium diet 3. NSTEMI: Trend troponins 4. Hypotension: Improved, will add midodrine 5. Anemia: Hemoglobin at goal for CKD, monitor Patient evaluated using audiovisual cart. Time spent 40 minutes. Consult Attestations 2 Medical Necessity Statement: per jr Coding Level of Care Code Acute Code for Chg Fwd Diagnoses ESRD (end stage renal disease) N18.6
[2024-05-15 16:59] LABS: ABG PCO2 46.1 mmHg (35-45); ABG PH Result 7.33 (7.35-7.45); Arterial Blood Gas Hematocrit 30.6 % (42-52); Base Excess ABG -2.1 mmol/L (-2.0-2.0); Blood Gas Allen Test Pos; Blood Gas Operator Identificat CAK; Blood Gas Sample Site Brachial, right; Blood Gas Sample Type Arterial; Oxygen Device NC; PO2 ABG 81.9 mmHg (80.0-100.0); PO2 FiO2 Ratio Arterial Blood 292
--- NOTE | 2024-05-15 17:07 | PC.HD ---
Heparin 1000 units loading dose administered at 1650 via venous needle per log deckman's orders. Patient currently on 2L NC.
[2024-05-15] MEDS: albumin 12.5 GM/50 ML VIAL IV ×3 (17:25→18:21)
--- NOTE | 2024-05-15 20:20 | CTR_ITS ---
PROCEDURE INFORMATION: Exam: CT Chest Without Contrast; Diagnostic Exam date and time: 05/16/2024 12:54 AM Age: 74 years old Clinical indication: Pain and abnormal findings; Abnormal lab test; Elevated wbc; Other: N/a; Abdominal pain; Generalized; Prior surgery; Surgery date: 6+ months; Surgery type: Coronary stent. Spinal fusion. Gb. Patient HX: General maliase with leukocytosis and diffuse abd pain. History of chf, afib, esrd, and paget's disease. ; Additional info: Weakness and fatigue, abdominal pain, TECHNIQUE: Imaging protocol: Diagnostic computed tomography of the chest without contrast. Radiation optimization: All CT scans at this facility use at least one of these dose optimization techniques: automated exposure control; mA and/or kV adjustment per patient size (includes targeted exams where dose is matched to clinical indication); or iterative reconstruction. COMPARISON: CT angio chest PE protcl [id number] 05/06/2024 5:57 PM RADIATION DOSE METRICS: Total DLP (mGy-cm): 960.4 FINDINGS: Lungs: Minimal bibasilar discoid atelectasis. Otherwise, the lungs are clear. Pleural spaces: Unremarkable. No pneumothorax. No pleural effusion. Heart: The heart is enlarged. Trace pericardial fluid. Lymph nodes: Unremarkable. No enlarged lymph nodes. Vasculature: Extensive calcific plaque involves the thoracic aorta and coronary arteries. The thoracic aorta is free of aneurysm. Bones/joints: Unremarkable. No acute fracture. Soft tissues: Unremarkable. PROCEDURE INFORMATION: Exam: CT Abdomen And Pelvis Without Contrast Exam date and time: 05/16/2024 12:54 AM Age: 74 years old Clinical indication: Pain and abnormal findings; Abnormal lab test; Elevated wbc; Other: N/a; Abdominal pain; Generalized; Prior surgery; Surgery date: 6+ months; Surgery type: Coronary stent. Spinal fusion. Gb. Patient HX: General maliase with leukocytosis and diffuse abd pain. History of chf, afib, esrd, and paget's disease. ; Additional info: Weakness and fatigue, abdominal pain, TECHNIQUE: Imaging protocol: Computed tomography of the abdomen and pelvis without contrast. Radiation optimization: All CT scans at this facility use at least one of these dose optimization techniques: automated exposure control; mA and/or kV adjustment per patient size (includes targeted exams where dose is matched to clinical indication); or iterative reconstruction. COMPARISON: CT abdomen pelvis wo con [id number] 05/08/2024 3:44 PM RADIATION DOSE METRICS: Total DLP (mGy-cm): 960.4 FINDINGS: Liver: Normal. No mass. Gallbladder and biliary ducts: The gallbladder is surgically absent. Pancreas: Normal. No ductal dilation. Spleen: Normal. No splenomegaly. Adrenal glands: Normal. No mass. Kidneys and ureters: The kidneys are atrophic stable indeterminate exophytic cyst involving the right kidney measuring 3.6 cm with Hounsfield units of 28. Stomach and bowel: Scattered colon diverticula. No inflammatory change identified involving the GI tract. No signs of bowel obstruction. Appendix: No evidence of appendicitis. Intraperitoneal space: Unremarkable. No free air. No significant fluid collection. Vasculature: Scattered calcific plaque involves the abdominal aorta and iliac arteries. Lymph nodes: Unremarkable. No enlarged lymph nodes. Urinary bladder: Unremarkable as visualized. Reproductive: Unremarkable as visualized. Bones/joints: Postoperative changes from posterior fusion through T10 through L4. Multilevel degenerative changes involve the spine. No acute bony abnormality. Soft tissues: Unremarkable. CT/[place] [id number] IMPRESSION: 1. No acute abnormality. 2. Cardiomegaly. 3. Atherosclerosis. IMPRESSION: 1. No acute abnormality. 2. Atherosclerosis. 3. Diverticulosis.
[2024-05-15 20:28] LABS: Troponin 5 6HR Delta -46.7 ng/L (0-12)
[2024-05-15 20:36] LABS: Troponin 5 6HR 105.3 ng/L (0-15)
[2024-05-15 20:46] LABS: Hepatitis B Surface AB 35.4 (11.5-1000); Hepatitis B Surface Antigen Non-Reactive (Nonreactive)
[2024-05-15 21:00] LABS: Glucose Point of Care 116 mg/dL (70-110)
[2024-05-15 21:14] LABS: Ketone (Acetest) Serum Negative (Negative)
--- NOTE | 2024-05-15 21:35 | ECG_ITS ---
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 Measurements Intervals [place] Rate: 54 P: 0 W[place]: 0 QRS: 12 QRSD: 123 T: 41 QT: 427 QTc: 408 Interpretive Statements ATRIAL FIBRILLATION WITH SLOW VENTRICULAR RESPONSE MODERATE INTRAVENTRICULAR CONDUCTION DELAY [105+ ms QRS DURATION, 80+ ms Q/S IN V1/V2, NO Q AND 60+ ms R IN I/aVL/V5/V6] NONSPECIFIC T-WAVE ABNORMALITY Compared to ECG 05/15/2024 13:44:17 Intraventricular conduction delay now present T-wave abnormality now present Atrial flutter no longer present Myocardial infarct finding no longer present Electronically Signed On 05-15-2024 23:20:29 CONTINUOUS PILLOWCASE CUTTER by Daryl Ashraf M.D. [id number]
[2024-05-15] MEDS: cefTRIAXone 1,000 mg SDV 1000 MG IVP (22:10)
[2024-05-15] MEDS: clopidogrel 75 mg Tablet PO (22:16)
[2024-05-15] MEDS: sucralfate 1 gm Tablet PO (22:16)
[2024-05-15] MEDS: terazosin 5 mg Capsule 10 MG PO (22:16)
[2024-05-15] MEDS: atorvastatin 40 mg Tablet PO (22:17)
[2024-05-15] MEDS: sevelamer 800 mg Tablet 1600 MG PO (22:17)
[2024-05-15] MEDS: isosorbide mononitrate ER 60 mg Tablet PO (22:17)
[2024-05-15] MEDS: pantoprazole DR 40 mg Tablet PO (22:17)
[2024-05-15] MEDS: heparin 5,000 unit/mL INJ 1 mL 5000 UNIT SUBCUT (22:18)
[2024-05-15 23:11] LABS: Covid PCR NEGATIVE (Negative); Influenza A NEGATIVE (Negative); Influenza B NEGATIVE (Negative); Respiratory Syncytial Virus Ce NEGATIVE (Negative)
[2024-05-16] VITALS (10 sets, daily range): BP systolic 67–113; BP diastolic 43–67; PULSE 59–80; RESP 16–18; TEMP 36.4–37; O2SAT 91–95
[2024-05-16 02:48] LABS: Basophils # 0.1 10^3/uL (0.0-0.1); Eosinophils # 0.3 10^3/uL (0.0-0.8); Eosinophils % 2.7 %; Hematocrit 34.1 % (37-53); Lymphocytes # 1.6 10^3/uL (0.8-4.8); Lymphocytes % 14.6 %; Mean Corpuscular HGB Conc 30.5 g/dL (30-55); Mean Corpuscular Hemoglobin 28.5 pg (27-33); Mean Corpuscular Volume 93.4 fl (82-101); Mean Platelet Volume 9.8 fL (7.4-10.4); Monocytes # 0.9 10^3/uL (0.2-0.9); Monocytes % 7.6 %; Neutrophils # 8.26 10^3/uL (1.8-7.7); Neutrophils % 73.4 %; Nucleated Red Blood Cells % 0 %; Platelet Count 253 10^3/cmm (157-399); Red Blood Count 3.65 10^6/uL (3.85-5.65); Red Cell Distribution Width 14.7 % (12.1-15.1); White Blood Count 11.24 10^3/uL (3.29-11.43)
[2024-05-16 03:18] LABS: Alanine Aminotransferase 27 U/L (0-41); Albumin Level 4.4 g/dL (3.5-5.2); Alkaline Phosphatase 296 U/L (40-130); Anion Gap 23.5 (5-19); Aspartate Amino Transferase 19 U/L (0-40); Blood Urea Nitrogen 42 mg/dL (8-23); Carbon Dioxide 26 mmol/L (22-29); Chloride 90 mmol/L (98-107); Creatinine Clr Calc Pharmacy 11.0145; Globulin 3.2 g/dL (1.3-4.6); Glucose 204 mg/dL (65-115); Magnesium 2.2 mg/dL (1.7-2.3); Osmolality Calculated 296 mOsm/kg (285-295); Phosphorus 3.4 mg/dL (2.5-4.5); Potassium 4.5 mmol/L (3.5-5.1); Sodium 135 mmol/L (136-145); Total Bilirubin 0.4 mg/dL (0.15-1.2); Total Protein 7.6 g/dL (6.6-8.7)
[2024-05-16] MEDS: aspirin 81 mg EC Tablet PO (05:52)
[2024-05-16] MEDS: levothyroxine 25 mcg Tablet PO (05:52)
[2024-05-16 06:44] LABS: Glucose Point of Care 191 mg/dL (70-110)
[2024-05-16] MEDS: insulin lispro 100 unit/1 mL SUBCUT ×3 (08:30→17:54)
[2024-05-16] MEDS: sucralfate 1 gm Tablet PO ×2 (09:25→17:54)
[2024-05-16] MEDS: sevelamer 800 mg Tablet 1600 MG PO ×2 (09:25→17:54)
[2024-05-16] MEDS: midodrine 5 mg TABLET 10 MG PO ×3 (09:25→21:16)
[2024-05-16] MEDS: escitalopram 10 mg Tablet 20 MG PO (09:25)
[2024-05-16] MEDS: allopurinol 300 mg Tablet PO (09:26)
[2024-05-16] MEDS: pantoprazole DR 40 mg Tablet PO ×2 (09:26→17:54)
[2024-05-16] MEDS: heparin 5,000 unit/mL INJ 1 mL 5000 UNIT SUBCUT ×2 (09:27→21:16)
[2024-05-16 11:28] LABS: Glucose Point of Care 204 mg/dL (70-110)
--- NOTE | 2024-05-16 15:29 | P.PN_ITS ---
Subjective 2 Subjective: Patient was seen this morning, he feels unwell, blood pressures remain soft, have discontinued his blood pressure medications, discussed possibility of polypharmacy playing a role in his low blood pressures, will monitor closely, denies any chest pain, does feel short of breath with exertion does report lightheadedness when getting up Vitals/I&O/Wt Last Vital Signs Temp 98.6 F 05/16/24 11:23 Pulse 61 05/16/24 11:23 Resp 16 05/16/24 11:23 BP 109/53 05/16/24 11:23 Pulse Ox 92 05/16/24 11:23 O2 Del Method Nasal Cannula 05/16/24 11:23 O2 Flow Rate 2 05/16/24 11:23 05/16/24 05/16/24 05/16/24 06:59 14:59 22:59 Intake Total 480 / 480 Balance 480 / 480 Weight last 48 hrs Weight 90.945 kg Weight 90.991 kg Weight 90.991 kg Weight 86.4 kg Weight 88.451 kg Physical Exam 2 Const: COMMON NORMALS: no acute distress and patient oriented x3 Resp: COMMON NORMALS: normal respiratory effort, No retractions, No use of accessory muscles and clear to auscultation bilaterally AUSCULTATION: clear to auscultation bilaterally Cardio: COMMON NORMALS: regular rate, regular rhythm, S1 normal heart sound present and S2 normal heart sound present RATE: regular rate RHYTHM: r egular rhythm HEART SOUNDS: S1 normal heart sound present and S2 normal heart sound present GI: COMMON NORMALS: Normal to inspection, nondistended, normoactive bowel sounds present and non-tender Extremity: COMMON NORMALS: no pedal edema Neuro: COMMON NORMALS: patient oriented x3 Psych: COMMON NORMALS: mental status grossly normal Data 05/16/24 02:29 05/16/24 02:29 Micro: Microbiology 05/15/24 15:45 Blood Culture - Preliminary Blood SPECIMEN COLLECTED 05/15/24 15:47 Blood Culture - Preliminary Blood SPECIMEN COLLECTED A&P Assessment and plan (1) Acute hypotension: (2) Bradycardia: (3) Non-ST elevated myocardial infarction (non-STEMI): Plan Acute hypotension -Continues to have hypotension, lightheadedness, symptomatic -Likely polypharmacy, orthostatic hypotension -Lactic acid within normal limits -No significant infectious findings, no skin breaks, no ulcers, chest x-ray no focal pneumonia, he has been on cefdinir for concerns for pneumonia during his last hospitalization he does not urinate we will obtain a UA, obtain a respiratory viral panel -Monitor for fevers -Serial abdominal exams, does complain of abdominal discomfort will do CT chest abdomen pelvis -Monitor closely -Midodrine has been added Bradycardia -Serial EKGs, short troponins, tolerated monitoring -Hold Coreg NSTEMI, serial EKGs, serial troponins, monitoring Missed dialysis, nephrology consulted for dialysis Type 2 diabetes mellitus, low-dose sliding scale Acute on chronic anemia, hemoglobin looks reasonable at 10.9, no bloody black stools reported, Protonix, Carafate Full code Heparin for DVT prophylaxis Attestations 2 Medical Necessity Statement*: Patient requires hospitalization for hypotension, bradycardia, NSTEMI missed dialysis, inpatient, greater than 2 midnights Diagnoses Acute hypotension I95.9 Bradycardia R00.1 Non-ST elevated myocardial infarction (non-STEMI) I21.4
[2024-05-16 16:59] LABS: Glucose Point of Care 188 mg/dL (70-110)
[2024-05-16] MEDS: folic acid 1 mg Tablet PO (17:55)
[2024-05-16 20:54] LABS: Glucose Point of Care 136 mg/dL (70-110)
[2024-05-16] MEDS: cefTRIAXone 1,000 mg SDV 1000 MG IVP (21:16)
[2024-05-16] MEDS: clopidogrel 75 mg Tablet PO (21:16)
[2024-05-16] MEDS: atorvastatin 40 mg Tablet PO (21:16)
[2024-05-17] VITALS (9 sets, daily range): BP systolic 69–135; BP diastolic 48–69; PULSE 46–68; RESP 15–23; TEMP 36.6–36.7; O2SAT 94–96
[2024-05-17 03:21] LABS: Basophils # 0.1 10^3/uL (0.0-0.1); Basophils % 0.4 %; Eosinophils # 0.4 10^3/uL (0.0-0.8); Eosinophils % 3.6 %; Hematocrit 34.6 % (37-53); Lymphocytes # 1.7 10^3/uL (0.8-4.8); Lymphocytes % 15.3 %; Mean Corpuscular HGB Conc 31.5 g/dL (30-55); Mean Corpuscular Hemoglobin 28.6 pg (27-33); Mean Corpuscular Volume 90.8 fl (82-101); Mean Platelet Volume 9.9 fL (7.4-10.4); Neutrophils # 8.06 10^3/uL (1.8-7.7); Neutrophils % 70.8 %; Nucleated Red Blood Cells % 0 %; Platelet Count 233 10^3/cmm (157-399); Red Blood Count 3.81 10^6/uL (3.85-5.65); Red Cell Distribution Width 14.7 % (12.1-15.1); White Blood Count 11.39 10^3/uL (3.29-11.43)
[2024-05-17 03:39] LABS: Alanine Aminotransferase 23 U/L (0-41); Albumin Level 4.2 g/dL (3.5-5.2); Alkaline Phosphatase 289 U/L (40-130); Anion Gap 24.1 (5-19); Aspartate Amino Transferase 16 U/L (0-40); Blood Urea Nitrogen 57 mg/dL (8-23); Calcium 10.3 mg/dL (8.5-10.5); Carbon Dioxide 26 mmol/L (22-29); Chloride 90 mmol/L (98-107); Creatinine Clr Calc Pharmacy 8.5027; Globulin 3.1 g/dL (1.3-4.6); Glucose 156 mg/dL (65-115); Magnesium 2.3 mg/dL (1.7-2.3); Osmolality Calculated 299 mOsm/kg (285-295); Phosphorus 3.9 mg/dL (2.5-4.5); Potassium 5.1 mmol/L (3.5-5.1); Sodium 135 mmol/L (136-145); Total Bilirubin 0.4 mg/dL (0.15-1.2); Total Protein 7.3 g/dL (6.6-8.7)
[2024-05-17] MEDS: levothyroxine 25 mcg Tablet PO (05:12)
[2024-05-17] MEDS: aspirin 81 mg EC Tablet PO (05:12)
[2024-05-17] MEDS: ondansetron 2 mg/ML SDV 2 mL 4 MG IVP (05:22)
[2024-05-17 06:27] LABS: Glucose Point of Care 174 mg/dL (70-110)
[2024-05-17] MEDS: insulin lispro 100 unit/1 mL SUBCUT ×4 (09:17→21:19)
[2024-05-17] MEDS: folic acid 1 mg Tablet PO (09:19)
[2024-05-17] MEDS: heparin 5,000 unit/mL INJ 1 mL 5000 UNIT SUBCUT ×2 (09:19→21:19)
[2024-05-17] MEDS: allopurinol 300 mg Tablet PO (09:20)
[2024-05-17] MEDS: pantoprazole DR 40 mg Tablet PO ×2 (09:20→18:26)
[2024-05-17] MEDS: sevelamer 800 mg Tablet 1600 MG PO ×2 (09:20→18:26)
[2024-05-17] MEDS: sucralfate 1 gm Tablet PO ×2 (09:20→18:26)
[2024-05-17] MEDS: escitalopram 10 mg Tablet 20 MG PO (09:20)
[2024-05-17] MEDS: midodrine 5 mg TABLET 10 MG PO ×3 (09:20→21:19)
--- NOTE | 2024-05-17 09:44 | P.PN_ITS ---
Subjective 2 Subjective: no new complaints Medications: Reviewed: Yes Vitals/I&O/Wt Last Vital Signs Temp 98.0 F 05/17/24 07:52 Pulse 54 L 05/17/24 07:52 Resp 15 05/17/24 07:52 BP 109/61 05/17/24 07:52 Pulse Ox 96 05/17/24 07:52 O2 Del Method Nasal Cannula 05/17/24 07:52 O2 Flow Rate 2 05/16/24 11:23 05/16/24 05/17/24 05/17/24 22:59 06:59 14:59 Intake Total 120 / 600 240 / 840 360 / 360 Balance 120 / 600 240 / 840 360 / 360 Weight last 48 hrs Weight 90.673 kg Weight 90.945 kg Weight 90.991 kg Weight 90.991 kg Weight 86.4 kg Weight 88.451 kg Physical Exam 2 Narrative: awake , alert PEERLA S1S2 RRR per report Lungs clear per report No edema Data 05/17/24 02:56 05/17/24 02:56 Micro: Microbiology 05/15/24 15:47 Blood Culture - Preliminary Blood NEGATIVE TO DATE 05/15/24 15:45 Blood Culture - Preliminary Blood NEGATIVE TO DATE A&P Assessment and plan (1) ESRD (end stage renal disease): Plan 1. End-stage renal disease: On TTS schedule, s/p hd friday , HD tomorrow ultrafiltration as tolerated 2. Hyperkalemia: HD as above on low potassium diet 3. NSTEMI: Trend troponins 4. Hypotension: added midodrine 5. Anemia: Hemoglobin at goal for CKD, monitor Patient evaluated using audiovisual cart. Time spent 40 minutes. Attestations 2 Medical Necessity Statement*: per medicine Coding Level of Care Code Acute Code for Chg Fwd Diagnoses ESRD (end stage renal disease) N18.6
--- NOTE | 2024-05-17 10:31 | PICC.NOTE ---
Referred to vascular access nurse for US guided IV placement. Pt has fistula in left arm. Right arm assessed. 20 gauge peripheral IV started using US guidance to right forearm. Good blood return noted. Flushes without difficulty. Report given to bedside nurse
--- NOTE | 2024-05-17 11:01 | ECG_ITS ---
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 Measurements Intervals [place] Rate: 50 P: 0 IN: 0 QRS: 21 QRSD: 103 T: 40 QT: 444 QTc: 406 Interpretive Statements ATRIAL FIBRILLATION WITH SLOW VENTRICULAR RESPONSE Compared to ECG 05/15/2024 21:35:15 Intraventricular conduction delay no longer present T-wave abnormality no longer present Electronically Signed On 05-22-2024 13:56:25 RUBBERIZING MECHANIC by Daryl Ashraf M.D. [id number]
[2024-05-17 11:58] LABS: Glucose Point of Care 179 mg/dL (70-110)
--- NOTE | 2024-05-17 16:30 | P.PN_ITS ---
Subjective 2 Subjective: Patient was seen this morning, continues to complain of weakness and fatigue, noted to be orthostatic hypotensive during the night, midodrine has been started, EKG shows atrial flutter with slow ventricular response, does feel lightheaded upon ambulation Vitals/I&O/Wt Last Vital Signs Temp 97.8 F 05/17/24 11:57 Pulse 52 L 05/17/24 16:00 Resp 23 H 05/17/24 16:00 BP 113/58 05/17/24 16:00 Pulse Ox 95 05/17/24 16:00 O2 Del Method Nasal Cannula 05/17/24 16:00 O2 Flow Rate 2 05/16/24 11:23 05/17/24 05/17/24 05/17/24 06:59 14:59 22:59 Intake Total 240 / 840 582 / 582 Balance 240 / 840 582 / 582 Weight last 48 hrs Weight 90.673 kg Weight 90.945 kg Weight 90.991 kg Weight 90.991 kg Weight 86.4 kg Physical Exam 2 Const: COMMON NORMALS: no acute distress and patient oriented x3 Resp: COMMON NORMALS: normal respiratory effort, No retractions, No use of accessory muscles and clear to auscultation bilaterally AUSCULTATION: clear to auscultation bilaterally Cardio: COMMON NORMALS: regular rate, regular rhythm, S1 normal heart sound present and S2 normal heart sound present RATE: regular rate RHYTHM: r egular rhythm HEART SOUNDS: S1 normal heart sound present and S2 normal heart sound present GI: COMMON NORMALS: Normal to inspection, nondistended, normoactive bowel sounds present and non-tender Extremity: COMMON NORMALS: no pedal edema Neuro: COMMON NORMALS: patient oriented x3 Psych: COMMON NORMALS: mental status grossly normal Data 05/17/24 02:56 05/17/24 02:56 Micro: Microbiology 05/15/24 15:47 Blood Culture - Preliminary Blood NEGATIVE TO DATE 05/15/24 15:45 Blood Culture - Preliminary Blood NEGATIVE TO DATE A&P Assessment and plan (1) Acute hypotension: (2) Bradycardia: (3) Non-ST elevated myocardial infarction (non-STEMI): (4) Orthostatic hypotension: Plan Acute hypotension, orthostatic hypotension -Continues to have orthostatic hypotension, lightheadedness, symptomatic -Systolic blood pressure drops over 20 points upon standing up -Likely polypharmacy, orthostatic hypotension -Lactic acid within normal limits -No significant infectious findings, no skin breaks, no ulcers, chest x-ray no focal pneumonia, he has been on cefdinir for concerns for pneumonia during his last hospitalization he does not urinate we will obtain a UA, obtain a respiratory viral panel -Monitor for fevers -Currently on midodrine -Monitor closely -Hold off on fluids due to concern for fluid overload Bradycardia -Serial EKGs, short troponins, tolerated monitoring -Hold Coreg NSTEMI, serial EKGs, serial troponins, monitoring Missed dialysis, nephrology consulted for dialysis Type 2 diabetes mellitus, low-dose sliding scale Acute on chronic anemia, hemoglobin looks reasonable at 10.9, no bloody black stools reported, Protonix, Carafate Full code Heparin for DVT prophylaxis Attestations 2 Medical Necessity Statement*: Patient requires hospitalization for acute hypotension, orthostatic hypotension, symptomatic and High MDM includes number and complexity of problems actively addressed during encounter, amount and/or complexity of data reviewed/ordered and described risk of complication, morbidity or mortality of management as documented Diagnoses Acute hypotension I95.9 Bradycardia R00.1 Non-ST elevated myocardial infarction (non-STEMI) I21.4 Orthostatic hypotension I95.1
[2024-05-17 16:43] LABS: Glucose Point of Care 167 mg/dL (70-110)
[2024-05-17 20:53] LABS: Glucose Point of Care 174 mg/dL (70-110)
[2024-05-17] MEDS: cefTRIAXone 1,000 mg SDV 1000 MG IVP (21:19)
[2024-05-17] MEDS: atorvastatin 40 mg Tablet PO (21:19)
[2024-05-17] MEDS: clopidogrel 75 mg Tablet PO (21:19)
[2024-05-18] VITALS (38 sets, daily range): BP systolic 82–149; BP diastolic 55–77; PULSE 43–83; RESP 14–23; TEMP 36.1–37.1; O2SAT 83–97
[2024-05-18] MEDS: aspirin 81 mg EC Tablet PO (05:30)
[2024-05-18] MEDS: levothyroxine 25 mcg Tablet PO (05:30)
[2024-05-18 06:19] LABS: Glucose Point of Care 179 mg/dL (70-110)
[2024-05-18 06:48] LABS: Basophils # 0.1 10^3/uL (0.0-0.1); Basophils % 0.8 %; Eosinophils # 0.4 10^3/uL (0.0-0.8); Eosinophils % 3.6 %; Hematocrit 35.3 % (37-53); Lymphocytes # 1.7 10^3/uL (0.8-4.8); Lymphocytes % 13.8 %; Mean Corpuscular HGB Conc 30.6 g/dL (30-55); Mean Corpuscular Hemoglobin 28.3 pg (27-33); Mean Corpuscular Volume 92.4 fl (82-101); Mean Platelet Volume 10.2 fL (7.4-10.4); Monocytes # 0.9 10^3/uL (0.2-0.9); Monocytes % 7.5 %; Neutrophils # 8.77 10^3/uL (1.8-7.7); Neutrophils % 73.5 %; Nucleated Red Blood Cells % 0 %; Platelet Count 245 10^3/cmm (157-399); Red Blood Count 3.82 10^6/uL (3.85-5.65); Red Cell Distribution Width 14.6 % (12.1-15.1); White Blood Count 11.93 10^3/uL (3.29-11.43)
[2024-05-18 07:04] LABS: Alanine Aminotransferase 18 U/L (0-41); Albumin Level 3.8 g/dL (3.5-5.2); Alkaline Phosphatase 296 U/L (40-130); Anion Gap 28.5 (5-19); Aspartate Amino Transferase 12 U/L (0-40); Blood Urea Nitrogen 79 mg/dL (8-23); Calcium 9.8 mg/dL (8.5-10.5); Carbon Dioxide 22 mmol/L (22-29); Chloride 89 mmol/L (98-107); Creatinine Clr Calc Pharmacy 6.7072; Globulin 3.3 g/dL (1.3-4.6); Glucose 160 mg/dL (65-115); Magnesium 2.5 mg/dL (1.7-2.3); Osmolality Calculated 305 mOsm/kg (285-295); Phosphorus 4.6 mg/dL (2.5-4.5); Potassium 5.5 mmol/L (3.5-5.1); Sodium 134 mmol/L (136-145); Total Bilirubin 0.3 mg/dL (0.15-1.2); Total Protein 7.1 g/dL (6.6-8.7)
[2024-05-18] MEDS: midodrine 5 mg TABLET 10 MG PO (07:07)
--- NOTE | 2024-05-18 07:18 | P.PN_ITS ---
Subjective 2 Subjective: c/o dizziness w/ standing, Improving nausea. denies cp, sob, fay, diarreha, cough, leg pains Medications: Reviewed: Yes Medication Review Details: Current Medications Acetaminophen (Acetaminophen 325 Mg Tablet) 650 mg PO Q6H PRN PRN Reason: Mild/Mod Pain Or Temp >/= 101 Acetaminophen (Acetaminophen 500 Mg Tablet) 1,000 mg PO Q6H PRN PRN Reason: Pain Allopurinol (Allopurinol 300 Mg Tablet) 300 mg PO DAILY [facility] Last Admin: 05/17/24 09:20 Dose: 300 mg Aspirin (Aspirin 81 Mg Ec Tablet) 81 mg PO QAM [facility] Last Admin: 05/18/24 05:30 Dose: 81 mg Atorvastatin Calcium (Atorvastatin 40 Mg Tablet) 40 mg PO BEDTIME [facility] Last Admin: 05/17/24 21:19 Dose: 40 mg Ceftriaxone Sodium (Ceftriaxone 1,000 Mg Sdv) 1,000 mg IVP Q24H [facility]; Protocol Last Admin: 05/17/24 21:19 Dose: 1,000 mg Clopidogrel Bisulfate (Clopidogrel 75 Mg Tablet) 75 mg PO BEDTIME [facility] Last Admin: 05/17/24 21:19 Dose: 75 mg Docusate Sodium (Docusate Sodium 100 Mg Capsule) 100 mg PO BID [facility] Escitalopram Oxalate (Escitalopram 10 Mg Tablet) 20 mg PO DAILY [facility] Last Admin: 05/17/24 09:20 Dose: 20 mg Folic Acid (Folic Acid 1 Mg Tablet) 1 mg PO DAILY [facility] Last Admin: 05/17/24 09:19 Dose: 1 mg Glucagon (Glucagon 1 Mg/Ml Kit 1 Ml) 1 mg IM ONCE PRN; Protocol PRN Reason: Adult Acute Hypoglycemia Nursing Prot. Heparin Sodium (Porcine) (Heparin 5,000 Unit/Ml Inj 1 Ml) 5,000 unit SUBCUT Q12H [facility] Last Admin: 05/17/24 21:19 Dose: 5,000 unit Dextrose (D5w) 500 mls @ 0 mls/hr IV ONCE PRN; Protocol PRN Reason: Adult Acute Hypoglycemia Prot Dextrose (D10w) 125 mls @ 750 mls/hr IV PRN PRN; Protocol PRN Reason: Adult Acute Hypoglycemia Nursing Protocol Dextrose (D10w) 250 mls @ 1,000 mls/hr IV PRN PRN; Protocol PRN Reason: Adult Acute Hypoglycemia Nursing Protocol Sodium Chloride (Sodium Chloride 0.9%) 1,000 mls @ 0 mls/hr IV .Q0M PRN PRN Reason: hypotension or symptomatic Sodium Chloride (Sodium Chloride 0.9%) 1,000 mls @ 0 mls/hr IV .Q0M PRN PRN Reason: hypotension or symptomatic Albumin Human (Albumin) 12.5 gm in 50 mls @ 60 mls/hr IV PRN PRN PRN Reason: Hypotension and/or symptomatic Insulin Human Lispro (Insulin Lispro 100 Unit/1 Ml) 0 unit SUBCUT WM&BEDTIME [facility]; Protocol Last Admin: 05/17/24 21:19 Dose: 2 unit Levothyroxine Sodium (Levothyroxine 25 Mcg Tablet) 25 mcg PO QAM [facility] Last Admin: 05/18/24 05:30 Dose: 25 mcg Midodrine (Midodrine 5 Mg Tablet) 10 mg PO TID [facility] Last Admin: 05/18/24 07:07 Dose: 10 mg Morphine Sulfate (Morphine 4 Mg/Ml Sdv 1 Ml) 2 mg IVP Q4H PRN PRN Reason: SEVERE PAIN Nitroglycerin (Nitroglycerin 0.4 Mg Sublingual Tablet) 0.4 mg SUBLINGUAL Q5M PRN PRN Reason: Chest Pain Ondansetron HCl (Ondansetron 2 Mg/Ml Sdv 2 Ml) 4 mg IVP Q8H PRN PRN Reason: vomiting, or N/V if npo Last Admin: 05/17/24 05:22 Dose: 4 mg Pantoprazole Sodium (Pantoprazole Dr 40 Mg Tablet) 40 mg PO BID [facility] Last Admin: 05/17/24 18:26 Dose: 40 mg Sevelamer Carbonate (Sevelamer 800 Mg Tablet) 1,600 mg PO BID [facility] Last Admin: 05/17/24 18:26 Dose: 1,600 mg Sucralfate (Sucralfate 1 Gm Tablet) 1 gm PO BID [facility] Last Admin: 05/17/24 18:26 Dose: 1 gm Vitals/I&O/Wt Last Vital Signs Temp 98.2 F 05/18/24 04:00 Pulse 67 05/18/24 06:00 Resp 19 H 05/18/24 04:00 BP 123/58 05/18/24 04:00 Pulse Ox 93 05/18/24 04:00 O2 Del Method Nasal Cannula 05/18/24 04:00 O2 Flow Rate 2 05/16/24 11:23 05/17/24 05/18/24 05/18/24 22:59 06:59 14:59 Intake Total 650 / 1232 200 / 1432 Output Total 400 / 400 1 / 401 Balance 250 / 832 199 / 1031 Weight last 48 hrs Weight 90.673 kg Weight 90.673 kg Physical Exam 2 Narrative: Patient seen and examined. He is comfortable in bed no apparent distress vital signs noted. HEENT normocephalic atraumatic. Neck is supple no JVP no carotid bruits. Lungs dull bases. Heart regular positive S1-S2. Abdomen is soft positive bowel sounds. Extremities left upper extremity AV fistula with good thrill and bruit. Legs no edema. Neuro awake alert oriented x 3. Data 05/18/24 06:23 05/18/24 06:23 A&P Assessment and plan (1) End stage renal disease on dialysis: 74-year-old gentleman history of ESRD on dialysis Friday and Friday, carotid artery disease, A-fib, anemia, CAD with multiple stents, diabetes and hypertension. 1. ESRD hemodialysis today. Will be gentle with fluid removal use 2K bath. -pt is orthostatic- increase EDW check echo 2.Non-ST elevation [place] monitor troponins. 3. Diabetic control. 4. Anemia. hgb stable- high ferritin 1950 seen and examined using A/V equipoment with the aid of a nurse Plan HD today Attestations 2 Medical Necessity Statement*: per medicine Time Spent in Patient Care: 16 - 35 minutes (>than 50% of time sp ent in counselling and/or direct pt care on unit) . Coding Level of Care Code Acute Code for Chg Fwd Diagnoses End stage renal disease on dialysis N18.6; Z99.2
--- NOTE | 2024-05-18 07:24 | PC.NURSE ---
to dialysis via bed at 0710
[2024-05-18] MEDS: albumin 12.5 GM/50 ML VIAL IV ×2 (07:27→07:54)
--- NOTE | 2024-05-18 07:43 | PC.HD ---
Heparin 1000 units loading dose administered via venous needle at 0722 per ocean clam boat captain's orders. Patient received Midodrine 10 mg po prior to treatment. Upon treatment initiation, prn albumin 25%/50mL was started. Per ocean clam boat captain's verbal orders, if patient's BP drops in spite of these interventions, UF goal is to be reduced.
[2024-05-18 11:28] LABS: Glucose Point of Care 131 mg/dL (70-110)
[2024-05-18] MEDS: heparin 5,000 unit/mL INJ 1 mL 5000 UNIT SUBCUT ×2 (11:48→21:16)
[2024-05-18] MEDS: escitalopram 10 mg Tablet 20 MG PO (11:49)
[2024-05-18] MEDS: folic acid 1 mg Tablet PO (11:50)
[2024-05-18] MEDS: sevelamer 800 mg Tablet 1600 MG PO ×2 (11:50→17:55)
[2024-05-18] MEDS: docusate sodium 100 mg Capsule PO ×2 (11:50→17:55)
[2024-05-18] MEDS: sucralfate 1 gm Tablet PO ×2 (11:51→17:56)
[2024-05-18] MEDS: pantoprazole DR 40 mg Tablet PO ×2 (11:51→17:56)
[2024-05-18] MEDS: allopurinol 300 mg Tablet PO (12:01)
[2024-05-18] MEDS: midodrine 5 mg TABLET PO ×2 (16:39→21:17)
[2024-05-18 16:40] LABS: Glucose Point of Care 144 mg/dL (70-110)
[2024-05-18] MEDS: acetaminophen 325 mg Tablet 650 MG PO (16:57)
--- NOTE | 2024-05-18 17:00 | P.PN_ITS ---
Subjective 2 Subjective: Patient was seen this morning, currently in dialysis he feels better this morning, denies any fevers, no chills, no cough plans on discharge based on his clinical progress based on his orthostatic vitals After dialysis, patient complained of dizziness, his systolic blood pressure drops over 60 points upon standing, likely orthostatic, his midodrine was initially stopped, will resume Vitals/I&O/Wt Last Vital Signs Temp 98.6 F 05/18/24 12:00 Pulse 57 L 05/18/24 12:03 Resp 20 H 05/18/24 12:00 BP 145/74 05/18/24 12:03 Pulse Ox 94 05/18/24 12:00 O2 Del Method Nasal Cannula 05/18/24 12:00 O2 Flow Rate 2 05/18/24 12:00 05/18/24 05/18/24 05/18/24 06:59 14:59 22:59 Intake Total 200 / 1432 770 / 770 Output Total 1 / 401 1600 / 1600 Balance 199 / 1031 -830 / -830 Weight last 48 hrs Weight 89.1 kg Weight 90.673 kg Weight 90.673 kg Physical Exam 2 Const: COMMON NORMALS: no acute distress and patient oriented x3 Resp: COMMON NORMALS: normal respiratory effort, No retractions, No use of accessory muscles and clear to auscultation bilaterally AUSCULTATION: clear to auscultation bilaterally Cardio: COMMON NORMALS: regular rate, regular rhythm, S1 normal heart sound present and S2 normal heart sound present RATE: regular rate RHYTHM: r egular rhythm HEART SOUNDS: S1 normal heart sound present and S2 normal heart sound present GI: COMMON NORMALS: Normal to inspection, nondistended, normoactive bowel sounds present and non-tender Extremity: COMMON NORMALS: no pedal edema Neuro: COMMON NORMALS: patient oriented x3 Psych: COMMON NORMALS: mental status grossly normal Data 05/18/24 06:23 05/18/24 06:23 A&P Assessment and plan (1) Acute hypotension: (2) Bradycardia: (3) Non-ST elevated myocardial infarction (non-STEMI): (4) Orthostatic hypotension: Plan Acute hypotension, orthostatic hypotension -Continues to have orthostatic hypotension, lightheadedness, symptomatic -Systolic blood pressure drops over 20 points upon standing up -Likely polypharmacy, orthostatic hypotension -Lactic acid within normal limits -No significant infectious findings, no skin breaks, no ulcers, chest x-ray no focal pneumonia, he has been on cefdinir for concerns for pneumonia during his last hospitalization he does not urinate we will obtain a UA, obtain a respiratory viral panel -Monitor for fevers -Currently on midodrine -Monitor closely -Hold off on fluids due to concern for fluid overload Concern for acute hypotension versus fluid overload -Hold off on fluid therapy as patient easily becomes fluid overloaded Bradycardia -Serial EKGs, short troponins, tolerated monitoring -Hold Coreg NSTEMI, serial EKGs, serial troponins, monitoring Missed dialysis, nephrology consulted for dialysis Type 2 diabetes mellitus, low-dose sliding scale Acute on chronic anemia, hemoglobin looks reasonable at 10.9, no bloody black stools reported, Protonix, Carafate Full code Heparin for DVT prophylaxis Attestations 2 Medical Necessity Statement*: Patient requires hospitalization for orthostatic hypotension, symptomatic Diagnoses Acute hypotension I95.9 Bradycardia R00.1 Non-ST elevated myocardial infarction (non-STEMI) I21.4 Orthostatic hypotension I95.1
[2024-05-18] MEDS: insulin lispro 100 unit/1 mL SUBCUT ×2 (17:55→21:16)
[2024-05-18 19:10] LABS: Vitamin B12 811 pg/mL (232-1245)
[2024-05-18 19:20] LABS: Folate Level 16.1 ng/mL (4.5-32.2)
[2024-05-18 20:44] LABS: Glucose Point of Care 242 mg/dL (70-110)
[2024-05-18] MEDS: cefTRIAXone 1,000 mg SDV 1000 MG IVP (21:16)
[2024-05-18] MEDS: clopidogrel 75 mg Tablet PO (21:17)
[2024-05-18] MEDS: atorvastatin 40 mg Tablet PO (21:17)
[2024-05-19] VITALS (26 sets, daily range): BP systolic 76–191; BP diastolic 35–81; PULSE 48–83; RESP 14–20; TEMP 36.8–36.9; O2SAT 92–96
[2024-05-19 04:31] LABS: Basophils # 0.1 10^3/uL (0.0-0.1); Basophils % 0.8 %; Eosinophils # 0.5 10^3/uL (0.0-0.8); Eosinophils % 3.9 %; Lymphocytes # 1.4 10^3/uL (0.8-4.8); Lymphocytes % 11.2 %; Mean Corpuscular HGB Conc 31.1 g/dL (30-55); Mean Corpuscular Hemoglobin 28.6 pg (27-33); Mean Corpuscular Volume 92.1 fl (82-101); Mean Platelet Volume 10.2 fL (7.4-10.4); Monocytes % 8.2 %; Neutrophils # 9.34 10^3/uL (1.8-7.7); Neutrophils % 75.3 %; Nucleated Red Blood Cells % 0 %; Platelet Count 243 10^3/cmm (157-399); Red Blood Count 3.91 10^6/uL (3.85-5.65); Red Cell Distribution Width 14.6 % (12.1-15.1)
[2024-05-19 04:52] LABS: Alanine Aminotransferase 17 U/L (0-41); Albumin Level 4.4 g/dL (3.5-5.2); Alkaline Phosphatase 309 U/L (40-130); Anion Gap 21.9 (5-19); Aspartate Amino Transferase 15 U/L (0-40); Blood Urea Nitrogen 40 mg/dL (8-23); Calcium 10.2 mg/dL (8.5-10.5); Carbon Dioxide 27 mmol/L (22-29); Chloride 91 mmol/L (98-107); Globulin 3.4 g/dL (1.3-4.6); Glucose 150 mg/dL (65-115); Magnesium 2.3 mg/dL (1.7-2.3); Osmolality Calculated 291 mOsm/kg (285-295); Phosphorus 4.6 mg/dL (2.5-4.5); Potassium 5.9 mmol/L (3.5-5.1); Sodium 134 mmol/L (136-145); Total Bilirubin 0.5 mg/dL (0.15-1.2); Total Protein 7.8 g/dL (6.6-8.7)
[2024-05-19] MEDS: aspirin 81 mg EC Tablet PO (05:27)
[2024-05-19] MEDS: levothyroxine 25 mcg Tablet PO (05:27)
[2024-05-19 06:05] LABS: Glucose Point of Care 162 mg/dL (70-110)
[2024-05-19] MEDS: sevelamer 800 mg Tablet 1600 MG PO ×2 (06:13→18:00)
--- NOTE | 2024-05-19 08:37 | PM.PN ---
Subjective Subjective: seen and examined. weak, lightheaded/ states dialysis ent well yesterday. + nausea. no cp. Medications: Reviewed: Yes Medication Review Details: Current Medications Acetaminophen (Acetaminophen 325 Mg Tablet) 650 mg PO Q6H PRN PRN Reason: Mild/Mod Pain Or Temp >/= 101 Last Admin: 05/18/24 16:57 Dose: 650 mg Acetaminophen (Acetaminophen 500 Mg Tablet) 1,000 mg PO Q6H PRN PRN Reason: Pain Allopurinol (Allopurinol 300 Mg Tablet) 300 mg PO DAILY [facility] Last Admin: 05/18/24 12:01 Dose: 300 mg Aspirin (Aspirin 81 Mg Ec Tablet) 81 mg PO QAM [facility] Last Admin: 05/19/24 05:27 Dose: 81 mg Atorvastatin Calcium (Atorvastatin 40 Mg Tablet) 40 mg PO BEDTIME [facility] Last Admin: 05/18/24 21:17 Dose: 40 mg Ceftriaxone Sodium (Ceftriaxone 1,000 Mg Sdv) 1,000 mg IVP Q24H [facility]; Protocol Last Admin: 05/18/24 21:16 Dose: 1,000 mg Clopidogrel Bisulfate (Clopidogrel 75 Mg Tablet) 75 mg PO BEDTIME [facility] Last Admin: 05/18/24 21:17 Dose: 75 mg Docusate Sodium (Docusate Sodium 100 Mg Capsule) 100 mg PO BID [facility] Last Admin: 05/18/24 17:55 Dose: 100 mg Escitalopram Oxalate (Escitalopram 10 Mg Tablet) 20 mg PO DAILY [facility] Last Admin: 05/18/24 11:49 Dose: 20 mg Folic Acid (Folic Acid 1 Mg Tablet) 1 mg PO DAILY [facility] Last Admin: 05/18/24 11:50 Dose: 1 mg Glucagon (Glucagon 1 Mg/Ml Kit 1 Ml) 1 mg IM ONCE PRN; Protocol PRN Reason: Adult Acute Hypoglycemia Nursing Prot. Heparin Sodium (Porcine) (Heparin 5,000 Unit/Ml Inj 1 Ml) 5,000 unit SUBCUT Q12H [facility] Last Admin: 05/18/24 21:16 Dose: 5,000 unit Dextrose (D5w) 500 mls @ 0 mls/hr IV ONCE PRN; Protocol PRN Reason: Adult Acute Hypoglycemia Prot Dextrose (D10w) 125 mls @ 750 mls/hr IV PRN PRN; Protocol PRN Reason: Adult Acute Hypoglycemia Nursing Protocol Dextrose (D10w) 250 mls @ 1,000 mls/hr IV PRN PRN; Protocol PRN Reason: Adult Acute Hypoglycemia Nursing Protocol Sodium Chloride (Sodium Chloride 0.9%) 1,000 mls @ 0 mls/hr IV .Q0M PRN PRN Reason: hypotension or symptomatic Sodium Chloride (Sodium Chloride 0.9%) 1,000 mls @ 0 mls/hr IV .Q0M PRN PRN Reason: hypotension or symptomatic Albumin Human (Albumin) 12.5 gm in 50 mls @ 60 mls/hr IV PRN PRN PRN Reason: Hypotension and/or symptomatic Last Infusion: 05/18/24 19:19 Dose: Infused Insulin Human Lispro (Insulin Lispro 100 Unit/1 Ml) 0 unit SUBCUT WM&BEDTIME [facility]; Protocol Last Admin: 05/18/24 21:16 Dose: 6 unit Levothyroxine Sodium (Levothyroxine 25 Mcg Tablet) 25 mcg PO QAM [facility] Last Admin: 05/19/24 05:27 Dose: 25 mcg Midodrine (Midodrine 5 Mg Tablet) 5 mg PO TID [facility] Last Admin: 05/18/24 21:17 Dose: 5 mg Morphine Sulfate (Morphine 4 Mg/Ml Sdv 1 Ml) 2 mg IVP Q4H PRN PRN Reason: SEVERE PAIN Nitroglycerin (Nitroglycerin 0.4 Mg Sublingual Tablet) 0.4 mg SUBLINGUAL Q5M PRN PRN Reason: Chest Pain Ondansetron HCl (Ondansetron 2 Mg/Ml Sdv 2 Ml) 4 mg IVP Q8H PRN PRN Reason: vomiting, or N/V if npo Last Admin: 05/17/24 05:22 Dose: 4 mg Pantoprazole Sodium (Pantoprazole Dr 40 Mg Tablet) 40 mg PO BID [facility] Last Admin: 05/18/24 17:56 Dose: 40 mg Sevelamer Carbonate (Sevelamer 800 Mg Tablet) 1,600 mg PO AC [facility] Last Admin: 05/19/24 06:13 Dose: 1,600 mg Sucralfate (Sucralfate 1 Gm Tablet) 1 gm PO BID [facility] Last Admin: 05/18/24 17:56 Dose: 1 gm Vitals/I&O/Wt Last Vital Signs Temp 98.7 F 05/18/24 16:00 Pulse 74 05/19/24 05:58 Resp 15 05/19/24 04:00 BP 191/66 05/19/24 04:00 Pulse Ox 95 05/19/24 04:00 O2 Del Method Room Air 05/19/24 04:00 O2 Flow Rate 2 05/18/24 16:00 05/18/24 05/19/24 05/19/24 22:59 06:59 14:59 Intake Total 170 / 940 450 / 1390 Output Total 300 / 1900 0 / 1900 Balance -130 / -960 450 / -510 Weight last 48 hrs Weight 89.1 kg Weight 89.1 kg Weight 90.673 kg Physical Exam Narrative: Patient seen and examined. He is comfortable in bed no apparent distress vital signs noted. HEENT normocephalic atraumatic. Neck is supple no JVP no carotid bruits. Lungs - clear Heart regular positive S1-S2. Abdomen is soft positive bowel sounds. Extremities left upper extremity AV fistula with good thrill and bruit. Legs no edema. Neuro awake alert oriented x 3. Data 05/19/24 04:03 05/19/24 04:03 A&P Assessment and plan (1) End stage renal disease on dialysis: 74-year-old gentleman history of ESRD on dialysis Friday and Friday, carotid artery disease, A-fib, anemia, CAD with multiple stents, diabetes and hypertension. 1. ESRD- s/p hemodialysis yesterday. k is up to 5.9- repeat HD today if pt allows- use 2K bath. -pt is orthostatic- increase EDW check echo -place LINO stockings on. get out of bed slowly 2.Non-ST elevation [place] monitor troponins. 3. Diabetic control. 4. Anemia. hgb stable- high ferritin 1950 seen and examined using A/V equipment with the aid of a nurse Plan HD today Attestations Medical Necessity Statement*: esrd- hyperkalemia- orthostatic Coding Level of Care Code Acute Code for Chg Fwd Diagnoses End stage renal disease on dialysis N18.6; Z99.2
[2024-05-19] MEDS: escitalopram 10 mg Tablet 20 MG PO (09:13)
[2024-05-19] MEDS: folic acid 1 mg Tablet PO (09:13)
[2024-05-19] MEDS: sucralfate 1 gm Tablet PO ×2 (09:14→18:00)
[2024-05-19] MEDS: heparin 5,000 unit/mL INJ 1 mL 5000 UNIT SUBCUT ×2 (09:14→21:53)
[2024-05-19] MEDS: allopurinol 300 mg Tablet PO (09:14)
[2024-05-19] MEDS: pantoprazole DR 40 mg Tablet PO ×2 (09:14→18:00)
[2024-05-19] MEDS: docusate sodium 100 mg Capsule PO ×2 (09:14→18:00)
[2024-05-19] MEDS: insulin lispro 100 unit/1 mL SUBCUT ×3 (09:15→21:53)
--- NOTE | 2024-05-19 11:22 | PC.SOCIAL ---
IMM Update Pg. 2 of IMM updated and reviewed. Copy provided to patient.
--- NOTE | 2024-05-19 11:38 | PC.HD ---
Heparin 1000 units loading dose administered via HD needle at 1105 per communication consultant's orders.
--- NOTE | 2024-05-19 15:56 | PC.OT ---
OT EVALUATION ATTEMPTED. PATIENT IS C/O NAUSEA WITH MOVEMENT AND REQUESTS TO HOLD UNTIL TOMORROW.
[2024-05-19 16:32] LABS: Glucose Point of Care 192 mg/dL (70-110)
--- NOTE | 2024-05-19 17:53 | P.PN_ITS ---
Subjective 2 Subjective: Patient was seen this morning, continues to complain of dizziness upon ambulation, we discussed the possibility of his persistent orthostatic hypotension could be a component of his diabetes, he might have some degree of orthostatic hypotension that persists, we will have to monitor it, consider compression stockings, continue to monitor orthostatic vitals, will have him ambulate he can get dialysis today, and we will hold his midodrine as his resting blood pressures are now becoming hypertensive Vitals/I&O/Wt Last Vital Signs Temp 98.2 F 05/19/24 15:46 Pulse 68 05/19/24 15:47 Resp 18 05/19/24 15:46 BP 123/71 05/19/24 15:47 Pulse Ox 95 05/19/24 15:46 O2 Del Method Nasal Cannula 05/19/24 15:46 O2 Flow Rate 2 05/18/24 16:00 05/19/24 05/19/24 05/19/24 06:59 14:59 22:59 Intake Total 450 / 1390 500 / 500 Output Total 0 / 1900 500 / 500 Balance 450 / -510 0 / 0 Weight last 48 hrs Weight 90 kg Weight 89.1 kg Weight 89.1 kg Weight 90.673 kg Physical Exam 2 Const: COMMON NORMALS: no acute distress and patient oriented x3 Neck/C-Spine: COMMON NORMALS: no JVD Resp: COMMON NORMALS: normal respiratory effort, No retractions, No use of accessory muscles and clear to auscultation bilaterally AUSCULTATION: clear to auscultation bilaterally Cardio: COMMON NORMALS: no JVD, regular rate, regular rhythm, S1 normal heart sound present and S2 normal heart sound present RATE: regular rate RHYTHM: regular rhythm HEART SOUNDS: S1 normal heart sound present and S2 normal heart sound present GI: COMMON NORMALS: Normal to inspection, nondistended, normoactive bowel sounds present and non-tender Extremity: COMMON NORMALS: no pedal edema Neuro: COMMON NORMALS: patient oriented x3 Psych: COMMON NORMALS: mental status grossly normal Data 05/19/24 04:03 05/19/24 04:03 A&P Assessment and plan (1) Acute hypotension: (2) Bradycardia: (3) Non-ST elevated myocardial infarction (non-STEMI): (4) Orthostatic hypotension: Plan Acute hypotension, orthostatic hypotension -Continues to have orthostatic hypotension, lightheadedness, symptomatic -Systolic blood pressure drops over 20 points upon standing up -Likely polypharmacy, orthostatic hypotension -Lactic acid within normal limits -No significant infectious findings, no skin breaks, no ulcers, chest x-ray no focal pneumonia, he has been on cefdinir for concerns for pneumonia during his last hospitalization he does not urinate we will obtain a UA, obtain a respiratory viral panel -Monitor for fevers -Currently on midodrine -Monitor closely -Hold off on fluids due to concern for fluid overload Concern for acute hypotension versus fluid overload -Hold off on fluid therapy as patient easily becomes fluid overloaded Bradycardia -Serial EKGs, short troponins, tolerated monitoring -Hold Coreg NSTEMI, serial EKGs, serial troponins, monitoring Missed dialysis, nephrology consulted for dialysis Type 2 diabetes mellitus, low-dose sliding scale Acute on chronic anemia, hemoglobin looks reasonable at 10.9, no bloody black stools reported, Protonix, Carafate Full code Heparin for DVT prophylaxis Attestations 2 Medical Necessity Statement*: Patient requires hospitalization for persistent orthostatic hypotension Diagnoses Acute hypotension I95.9 Bradycardia R00.1 Non-ST elevated myocardial infarction (non-STEMI) I21.4 Orthostatic hypotension I95.1
[2024-05-19 20:35] LABS: Glucose Point of Care 224 mg/dL (70-110)
[2024-05-19] MEDS: atorvastatin 40 mg Tablet PO (21:53)
[2024-05-19] MEDS: clopidogrel 75 mg Tablet PO (21:53)
[2024-05-20 03:00] VITALS: BP 103/63; BP 112/70; BP 142/82; PULSE 63; PULSE 68; PULSE 74
[2024-05-20 03:28] VITALS: BP 150/77; PULSE 63; RESP 17; TEMP 36.7; O2SAT 98
[2024-05-20 05:32] LABS: Basophils # 0.1 10^3/uL (0.0-0.1); Basophils % 0.7 %; Eosinophils # 0.3 10^3/uL (0.0-0.8); Eosinophils % 2.9 %; Hematocrit 40.1 % (37-53); Lymphocytes # 1.3 10^3/uL (0.8-4.8); Lymphocytes % 12.9 %; Mean Corpuscular HGB Conc 30.4 g/dL (30-55); Mean Corpuscular Hemoglobin 28.6 pg (27-33); Mean Corpuscular Volume 94.1 fl (82-101); Mean Platelet Volume 10.4 fL (7.4-10.4); Monocytes # 0.9 10^3/uL (0.2-0.9); Monocytes % 8.6 %; Neutrophils # 7.43 10^3/uL (1.8-7.7); Neutrophils % 74.2 %; Nucleated Red Blood Cells % 0 %; Platelet Count 199 10^3/cmm (157-399); Red Blood Count 4.26 10^6/uL (3.85-5.65); Red Cell Distribution Width 14.6 % (12.1-15.1); White Blood Count 10.01 10^3/uL (3.29-11.43)
[2024-05-20 05:58] LABS: Alanine Aminotransferase 15 U/L (0-41); Albumin Level 4.3 g/dL (3.5-5.2); Alkaline Phosphatase 310 U/L (40-130); Aspartate Amino Transferase 16 U/L (0-40); Blood Urea Nitrogen 22 mg/dL (8-23); Calcium 10.1 mg/dL (8.5-10.5); Carbon Dioxide 22 mmol/L (22-29); Chloride 95 mmol/L (98-107); Globulin 2.6 g/dL (1.3-4.6); Glucose 137 mg/dL (65-115); Magnesium 2.3 mg/dL (1.7-2.3); Osmolality Calculated 289 mOsm/kg (285-295); Sodium 137 mmol/L (136-145); Total Bilirubin 0.6 mg/dL (0.15-1.2); Total Protein 6.9 g/dL (6.6-8.7)
[2024-05-20 05:59] LABS: Anion Gap 24.3 (5-19); Potassium 4.3 mmol/L (3.5-5.1)
[2024-05-20] MEDS: aspirin 81 mg EC Tablet PO (06:21)
[2024-05-20] MEDS: sevelamer 800 mg Tablet 1600 MG PO ×2 (06:21→12:43)
[2024-05-20] MEDS: levothyroxine 25 mcg Tablet PO (06:22)
[2024-05-20 07:13] VITALS: BP 166/79; PULSE 69; RESP 16; TEMP 36.7; O2SAT 96
[2024-05-20 07:19] LABS: Glucose Point of Care 149 mg/dL (70-110)
--- NOTE | 2024-05-20 07:30 | P.PN_ITS ---
Subjective 2 Subjective: feeling better, but still weak. no fay, cp. + poor appetite. no nausea/ vomiting/ diarrhea Medications: Reviewed: Yes Medication Review Details: Current Medications Acetaminophen (Acetaminophen 325 Mg Tablet) 650 mg PO Q6H PRN PRN Reason: Mild/Mod Pain Or Temp >/= 101 Last Admin: 05/18/24 16:57 Dose: 650 mg Acetaminophen (Acetaminophen 500 Mg Tablet) 1,000 mg PO Q6H PRN PRN Reason: Pain Allopurinol (Allopurinol 300 Mg Tablet) 300 mg PO DAILY [facility] Last Admin: 05/19/24 09:14 Dose: 300 mg Aspirin (Aspirin 81 Mg Ec Tablet) 81 mg PO QAM [facility] Last Admin: 05/20/24 06:21 Dose: 81 mg Atorvastatin Calcium (Atorvastatin 40 Mg Tablet) 40 mg PO BEDTIME [facility] Last Admin: 05/19/24 21:53 Dose: 40 mg Clopidogrel Bisulfate (Clopidogrel 75 Mg Tablet) 75 mg PO BEDTIME [facility] Last Admin: 05/19/24 21:53 Dose: 75 mg Docusate Sodium (Docusate Sodium 100 Mg Capsule) 100 mg PO BID [facility] Last Admin: 05/19/24 18:00 Dose: 100 mg Escitalopram Oxalate (Escitalopram 10 Mg Tablet) 20 mg PO DAILY [facility] Last Admin: 05/19/24 09:13 Dose: 20 mg Folic Acid (Folic Acid 1 Mg Tablet) 1 mg PO DAILY [facility] Last Admin: 05/19/24 09:13 Dose: 1 mg Glucagon (Glucagon 1 Mg/Ml Kit 1 Ml) 1 mg IM ONCE PRN; Protocol PRN Reason: Adult Acute Hypoglycemia Nursing Prot. Heparin Sodium (Porcine) (Heparin 5,000 Unit/Ml Inj 1 Ml) 5,000 unit SUBCUT Q12H [facility] Last Admin: 05/19/24 21:53 Dose: 5,000 unit Dextrose (D5w) 500 mls @ 0 mls/hr IV ONCE PRN; Protocol PRN Reason: Adult Acute Hypoglycemia Prot Dextrose (D10w) 125 mls @ 750 mls/hr IV PRN PRN; Protocol PRN Reason: Adult Acute Hypoglycemia Nursing Protocol Dextrose (D10w) 250 mls @ 1,000 mls/hr IV PRN PRN; Protocol PRN Reason: Adult Acute Hypoglycemia Nursing Protocol Sodium Chloride (Sodium Chloride 0.9%) 1,000 mls @ 0 mls/hr IV .Q0M PRN PRN Reason: hypotension or symptomatic Sodium Chloride (Sodium Chloride 0.9%) 1,000 mls @ 0 mls/hr IV .Q0M PRN PRN Reason: hypotension or symptomatic Albumin Human (Albumin) 12.5 gm in 50 mls @ 60 mls/hr IV PRN PRN PRN Reason: Hypotension and/or symptomatic Last Infusion: 05/18/24 19:19 Dose: Infused Insulin Human Lispro (Insulin Lispro 100 Unit/1 Ml) 0 unit SUBCUT WM&BEDTIME [facility]; Protocol Last Admin: 05/19/24 21:53 Dose: 6 unit Levothyroxine Sodium (Levothyroxine 25 Mcg Tablet) 25 mcg PO QAM [facility] Last Admin: 05/20/24 06:22 Dose: 25 mcg Midodrine (Midodrine 5 Mg Tablet) 5 mg PO TID [facility] Last Admin: 05/18/24 21:17 Dose: 5 mg Nitroglycerin (Nitroglycerin 0.4 Mg Sublingual Tablet) 0.4 mg SUBLINGUAL Q5M PRN PRN Reason: Chest Pain Ondansetron HCl (Ondansetron 2 Mg/Ml Sdv 2 Ml) 4 mg IVP Q8H PRN PRN Reason: vomiting, or N/V if npo Last Admin: 05/17/24 05:22 Dose: 4 mg Pantoprazole Sodium (Pantoprazole Dr 40 Mg Tablet) 40 mg PO BID [facility] Last Admin: 05/19/24 18:00 Dose: 40 mg Sevelamer Carbonate (Sevelamer 800 Mg Tablet) 1,600 mg PO AC [facility] Last Admin: 05/20/24 06:21 Dose: 1,600 mg Sucralfate (Sucralfate 1 Gm Tablet) 1 gm PO BID [facility] Last Admin: 05/19/24 18:00 Dose: 1 gm Vitals/I&O/Wt Last Vital Signs Temp 98.1 F 05/20/24 03:28 Pulse 63 05/20/24 03:28 Resp 17 05/20/24 03:28 BP 150/77 05/20/24 03:28 Pulse Ox 98 05/20/24 03:28 O2 Del Method Nasal Cannula 05/20/24 03:28 O2 Flow Rate 2 05/20/24 03:28 05/19/24 05/20/24 05/20/24 22:59 06:59 14:59 Intake Total 678 / 678 100 / 778 Output Total 500 / 500 Balance 178 / 178 100 / 278 Weight last 48 hrs Weight 88.082 kg Weight 90 kg Weight 89.1 kg Weight 89.1 kg Physical Exam 2 Narrative: Patient seen and examined. He is comfortable in bed no apparent distress vital signs noted. HEENT normocephalic atraumatic. Neck is supple no JVP no carotid bruits. Lungs - clear Heart regular positive S1-S2. Abdomen is soft positive bowel sounds. Extremities left upper extremity AV fistula with good thrill and bruit. Legs no edema. Neuro awake alert oriented x 3. Data 05/20/24 04:44 05/20/24 04:44 A&P Assessment and plan (1) End stage renal disease on dialysis: 74-year-old gentleman history of ESRD on dialysis Friday and Friday, carotid artery disease, A-fib, anemia, CAD with multiple stents, diabetes and hypertension. 1. ESRD- s/p hemodialysis yesterday. s/p HD last 2 days- can hold today assess for HD tomorrow. if for d/c can have HD on Friday -pt is orthostatic- increase EDW consider checking a cardiac echo -place LINO stockings on. get out of bed slowly 2.Non-ST elevation [place] monitor troponins. 3. Diabetic control. 4. Anemia. hgb stable- high ferritin 1950 5. normal phos consider PT seen and examined using A/V equipment with the aid of a nurse Plan see above Attestations 2 Medical Necessity Statement*: per hospitalist Time Spent in Patient Care: 16 - 35 minutes (>than 50% of time sp ent in counselling and/or direct pt care on unit) . Coding Level of Care Code Acute Code for Chg Fwd Diagnoses End stage renal disease on dialysis N18.6; Z99.2
[2024-05-20 08:31] VITALS: PULSE 78; O2SAT 95
[2024-05-20] MEDS: folic acid 1 mg Tablet PO (08:55)
[2024-05-20] MEDS: docusate sodium 100 mg Capsule PO (08:55)
[2024-05-20] MEDS: allopurinol 300 mg Tablet PO (08:55)
[2024-05-20] MEDS: pantoprazole DR 40 mg Tablet PO (08:55)
[2024-05-20] MEDS: heparin 5,000 unit/mL INJ 1 mL 5000 UNIT SUBCUT (08:55)
[2024-05-20] MEDS: escitalopram 10 mg Tablet 20 MG PO (08:55)
[2024-05-20] MEDS: sucralfate 1 gm Tablet PO (08:55)
[2024-05-20] MEDS: insulin lispro 100 unit/1 mL SUBCUT ×2 (08:56→12:44)
[2024-05-20 11:08] LABS: Glucose Point of Care 227 mg/dL (70-110)
--- NOTE | 2024-05-20 11:32 | PM.DCS ---
Discharge Providers Date of Admission: 05/15/24 14:30 Date of Discharge: May 20, 2024 Attending Provider at Admission: Tremaine Hopkins MD Attending Provider at Discharge: Tremaine Hopkins MD Primary Care Provider: Raul Bautista MD Diagnoses at Discharge Discharge Diagnosis (1) End stage renal disease on dialysis: Status: Acute Reason for Visit Reason for Visit: hypotension Hospital Course Hospital Course Eliazar Hogan is a 74 year old male with a past medical history of end-stage renal disease on dialysis, carotid artery stenosis, atrial fibrillation not on anticoagulation due to history of anemia, CAD with multiple stents, hypertension, diabetes who presents to [facility] due to fatigue, malaise, low blood pressures, feeling unwell. Currently patient is alert oriented x 3, following all commands, he tells me that he has been feeling well recently, fatigue, malaise, no fevers, no chills, no cough no chest pain no shortness of breath, has more generalized abdominal pain but no diarrhea, no nausea, no vomiting no lightheadedness, no dizziness. He went to dialysis this morning and his blood pressure was low so he was directed to the emergency room. He denies any bloody or black stools. He is taking his all his medication as prescribed. Patient was admitted to [facility] due to weakness, fatigue, lightheadedness secondary to orthostatic hypotension. Patient's blood pressure medications were held, his orthostatic vitals were monitored, he has received inpatient dialysis, no significant infectious sources were found. Patient's orthostatic hypotension to some degree persist on discharge, likely combination of autonomic dysfunction with his type 2 diabetes, end-stage renal disease on dialysis, and third spacing of fluids. I had a detailed discussion with patient, at times his resting blood pressures are elevated, but he continues to have episodes of orthostatic hypotension although symptomatology has significantly improved. He has not responded to midodrine well, continues to have hypertensive episodes. The only solution at this point is to continue to hold most of his blood pressure medications. I will start him on Imdur 30 mg daily. He needs to ambulate with care, change position with care, always have his wheeled walker with him, ambulate with a cane, change position with care. As orthostatic hypotension is associated with increased risk of morbidity and mortality. Over time hopefully his orthostats will improve, and the rest of his blood pressure medications can be added gradually, through primary care, as I am worried he might have episodes of hypertension necessitating the start of further blood pressure medications. I have also discharged him with compression stockings in place. There was also concerns for bradycardia during his hospitalization which has resolved, will avoid beta-blockers for now. Did receive inpatient dialysis for fluid overload, as patient is prone to fluid low overload exacerbations. On discharge he is breathing has improved, no episodes of shortness of breath. Physical Exam Const: COMMON NORMALS: no acute distress and patient oriented x3 Resp: COMMON NORMALS: normal respiratory effort, No retractions, No use of accessory muscles and clear to auscultation bilaterally AUSCULTATION: clear to auscultation bilaterally Cardio: COMMON NORMALS: regular rate, regular rhythm, S1 normal heart sound present and S2 normal heart sound present RATE: regular rate RHYTHM: regular rhythm HEART SOUNDS: S1 normal heart sound present and S2 normal heart sound present GI: COMMON NORMALS: Normal to inspection, nondistended, normoactive bowel sounds present and non-tender Extremity: COMMON NORMALS: no pedal edema Neuro: COMMON NORMALS: patient oriented x3 Psych: COMMON NORMALS: mental status grossly normal Discharge Data Studies Completed and Pending Completed Studies During Hospitalization Category Date Time Status CT chest abdomen pelvis [[place] [id number] Cat Scan 05/15/24 20:20 Completed ] Routine XR chest 1V portable [id number] Stat Exams 05/15/24 14:30 Completed Pending at discharge Category Date Time Status Blood Culture Stat Lab 05/15/24 15:45 Results Complete Blood Count w/Auto AM LABS Lab 05/21/24 04:00 Ordered Comprehensive Metabolic Panel AM LABS Lab 05/21/24 04:00 Ordered Drug Screen, Urine Routine Lab 05/15/24 20:20 Uncollected Magnesium AM LABS Lab 05/21/24 04:00 Ordered Phosphorus AM LABS Lab 05/21/24 04:00 Ordered Urinalysis Stat Lab 05/15/24 15:28 Uncollected Radiology Impressions Chest X-Ray 05/15/24 14:30 IMPRESSION: 1. No acute findings. 2. Right scapular bone sclerosis and trabecular thickening. Possible Paget's disease of bone. No change since 05/06/2024. Chest/Abdomen/Pelvis CT 05/15/24 20:20 IMPRESSION: 1. No acute abnormality. 2. Cardiomegaly. 3. Atherosclerosis. IMPRESSION: 1. No acute abnormality. 2. Atherosclerosis. 3. Diverticulosis. Laboratory Results WBC 10.01 10^3/uL (3.29-11.43) 05/20/24 04:44 RBC 4.26 10^6/uL (3.85-5.65) 05/20/24 04:44 Hgb 12.20 g/dL (11.27-16.99) 05/20/24 04:44 Hct 40.1 % (37-53) 05/20/24 04:44 MCV 94.1 fl (82-101) 05/20/24 04:44 MCH 28.6 pg (27-33) 05/20/24 04:44 MCHC 30.4 g/dL (30-55) 05/20/24 04:44 RDW 14.6 % (12.1-15.1) 05/20/24 04:44 Plt Count 199 10^3/cmm (157-399) 05/20/24 04:44 MPV 10.4 fL (7.4-10.4) 05/20/24 04:44 Neut % (Auto) 74.2 % 05/20/24 04:44 Lymph % (Auto) 12.9 % 05/20/24 04:44 [place] % (Auto) 8.6 % 05/20/24 04:44 Eos % (Auto) 2.9 % 05/20/24 04:44 Baso % (Auto) 0.7 % 05/20/24 04:44 Neut # (Auto) 7.43 10^3/uL (1.8-7.7) 05/20/24 04:44 Lymph # (Auto) 1.3 10^3/uL (0.8-4.8) 05/20/24 04:44 [place] # (Auto) 0.9 10^3/uL (0.2-0.9) 05/20/24 04:44 Eos # (Auto) 0.3 10^3/uL (0.0-0.8) 05/20/24 04:44 Baso # (Auto) 0.1 10^3/uL (0.0-0.1) 05/20/24 04:44 Nucleated RBC % (auto) 0 % 05/20/24 04:44 Nucleated RBCs # 0.0 /100WBC 05/20/24 04:44 ESR 69 mm/hr (0-10) H 05/15/24 13:44 Specimen Type Arterial 05/15/24 16:48 Sample Site Brachial, right 05/15/24 16:48 ABG pH 7.33 (7.35-7.45) L 05/15/24 16:48 ABG pCO2 46.1 mmHg (35-45) H 05/15/24 16:48 ABG pO2 81.9 mmHg (80.0-100.0) 05/15/24 16:48 ABG PO2/FiO2 Ratio 292 05/15/24 16:48 ABG HCO3 24.0 mmol/L (22-26) 05/15/24 16:48 ABG Base Excess -2.1 mmol/L (-2.0-2.0) L 05/15/24 16:48 Ganesh Test Pos 05/15/24 16:48 Hematocrit 30.6 % (42-52) L 05/15/24 16:48 O2 Delivery Device Nc 05/15/24 16:48 O2 Liters/Min 2.0 % 05/15/24 16:48 FiO2 28.0 % 05/15/24 16:48 Fleet Manager/Dispatch ID Cak 05/15/24 16:48 Sodium 137 mmol/L (136-145) 05/20/24 04:44 Potassium 4.3 mmol/L (3.5-5.1) 05/20/24 04:44 Chloride 95 mmol/L (98-107) L 05/20/24 04:44 Carbon Dioxide 22 mmol/L (22-29) 05/20/24 04:44 Anion Gap 24.3 (5-19) H 05/20/24 04:44 BUN 22 mg/dL (8-23) 05/20/24 04:44 Creatinine 5.1 mg/dL (0.7-1.2) H 05/20/24 04:44 GFR Calculation Not Reportable 05/20/24 04:44 Glucose 137 mg/dL (65-115) H 05/20/24 04:44 POC Glucose 227 mg/dL (70-110) H 05/20/24 10:52 Calculated Osmolality 289 mOsm/kg (285-295) 05/20/24 04:44 Lactic Acid 1.9 mmol/L (0.5-2.2) 05/15/24 13:44 Calcium 10.1 mg/dL (8.5-10.5) 05/20/24 04:44 Phosphorus 4.0 mg/dL (2.5-4.5) 05/20/24 04:44 Magnesium 2.3 mg/dL (1.7-2.3) 05/20/24 04:44 Total Bilirubin 0.6 mg/dL (0.15-1.2) 05/20/24 04:44 AST 16 U/L (0-40) 05/20/24 04:44 ALT 15 U/L (0-41) 05/20/24 04:44 Alkaline Phosphatase 310 U/L (40-130) H 05/20/24 04:44 Troponin T Baseline 152 ng/L (0-15) H* 05/15/24 13:44 Troponin T 120 Minute 150.0 ng/L (0-15) H 05/15/24 15:33 Delta Troponin T -2.0 ABS# (0-10) L 05/15/24 15:33 Troponin T Hi Sens 6Hr 105.3 ng/L (0-15) H 05/15/24 19:28 Troponin T Hi Sens 6Hr Delta -46.7 ng/L (0-12) L 05/15/24 19:28 C-Reactive Protein 16.5 mg/L (0.0-4.9) H 05/15/24 13:44 Total Protein 6.9 g/dL (6.6-8.7) 05/20/24 04:44 Albumin 4.3 g/dL (3.5-5.2) 05/20/24 04:44 Globulin 2.6 g/dL (1.3-4.6) 05/20/24 04:44 Vitamin B12 811 pg/mL (232-1245) 05/18/24 06:23 Folate 16.1 ng/mL (4.5-32.2) 05/18/24 06:23 Procalcitonin 0.49 ng/mL (0-0.5) 05/15/24 13:44 Serum Ketones Negative (Negative) 05/15/24 20:48 Coronavirus (PCR) Negative (Negative) 05/15/24 22:10 Hep Bs Antigen Non-reactive (Nonreactive) 05/15/24 13:44 Hep Bs Antibody 35.4 (11.5-1000) 05/15/24 13:44 Influenza A (PCR) Negative (Negative) 05/15/24 22:10 Influenza Type B (PCR) Negative (Negative) 05/15/24 22:10 RSV (PCR) Negative (Negative) 05/15/24 22:10 Vitals Last Vital Signs Temp 98.1 F 05/20/24 07:13 Pulse 78 05/20/24 08:31 Resp 16 05/20/24 07:13 BP 166/79 05/20/24 07:13 Pulse Ox 95 05/20/24 08:31 O2 Del Method Nasal Cannula 05/20/24 08:31 O2 Flow Rate 2 05/20/24 08:31 Discharge Plan Discharge Patient Disposition: Home Condition: Stable Prescriptions: New (DME) compress.stocking,knee,reg,lrg Misc See Rx Instructions .Route Qty: 2 0RF Rx Instructions: As directed insulin aspart U-100 [Novolog FlexPen U-100 Insulin] 100 unit/mL (3 mL) insulin pen See Rx Instructions .ROUTE .COMPLEX Qty: 15 0RF Rx Instructions: Inject, subcut, 3 times daily, after meals, based on sliding scale provided Continued terazosin 10 mg capsule 10 mg PO BID acetaminophen [Tylenol Extra Strength] 500 mg tablet 1,000 mg PO Q6H PRN (Reason: Pain) rosuvastatin [Crestor] 10 mg tablet 10 mg PO BEDTIME sevelamer carbonate 800 mg tablet 1,600 mg PO BID allopurinol 300 mg tablet 300 mg PO DAILY escitalopram oxalate [Lexapro] 20 mg tablet 20 mg PO DAILY cholecalciferol (vitamin D3) 50 mcg (2,000 unit) capsule 50 mcg PO DAILY levothyroxine 25 mcg Tablet 25 mcg PO QAM clopidogrel 75 mg tablet 75 mg PO BEDTIME Hold Instructions: Resume on 07/10/21. aspirin 81 mg tablet,delayed release (DR/EC) 81 mg PO QAM Hold Instructions: Resume on 07/07/21. cetirizine [Zyrtec] 10 mg Tablet 10 mg PO BID sucralfate [Carafate] 1 gram tablet 1 g PO BID 28 Days Qty: 56 0RF pantoprazole 40 mg tablet,delayed release (DR/EC) 40 mg PO BID Qty: 60 0RF nitroglycerin [Nitrostat] 0.4 mg Tablet, Sublingual 0.4 mg SUBLINGUAL Q5M PRN (Reason: Chest Pain) Rx Instructions: do not exceed 3 doses per episode folic acid 400 mcg Tablet 0.4 mg PO DAILY docusate sodium [Colace] 100 mg Capsule 100 mg PO BID Changed isosorbide mononitrate 60 mg Tablet Extended Release 24 Hr 30 mg PO DAILY Qty: 60 0RF insulin glargine 100 unit/mL (3 mL) Insulin Pen 10 unit SUBCUT DAILY Qty: 15 0RF Discontinued irbesartan 300 mg tablet 300 mg PO DAILY furosemide [Lasix] 80 mg Tablet 80 mg PO BID cefdinir 300 mg capsule 300 mg PO BID 7 Days Qty: 14 0RF amlodipine 10 mg tablet 5 mg PO DAILY 30 Days Qty: 30 0RF carvedilol 25 mg Tablet 12.5 mg PO BID No Action (DME) Diabetic Shoes See Rx Instructions .ROUTE .MEDSUPPLY Qty: 1 0RF Rx Instructions: As directed [employer] with 3 pairs of inserts (DME) Diabetic Shoes See Rx Instructions .ROUTE .MEDSUPPLY Qty: 1 0RF Rx Instructions: As directed By [employer] with 3 pairs of inserts (DME) FreeStyle Inocencia 14 Day Sensor Kit See Rx Instructions .Route Qty: 1 0RF Rx Instructions: As directed (DME) FreeStyle Inocencia 14 Day [place] Misc See Rx Instructions .Route Qty: 1 0RF Rx Instructions: As directed (DME) BIPAP and supplies See Rx Instructions .Route .MEDSUPPLY Qty: 1 0RF Rx Instructions: with 2L of oxygen when in use Discharge Orders: Discharge Order (Routine); Ordered 05/20/24 Ordered By: Tremaine Hopkins Referrals: Raul Bautista MD [Primary Care Provider] - 1-3 days Discharge Diet: Cardiac Discharge Activity: Resume usual activity Patient Instructions: Dialysis Nutrition Plan (DC), Hemodialysis (DC), Opioid Safety Activity Restrictions/Additional Instructions: - Please wear compression stockings -Please ambulate, change position with care history of high risk of falls, high risk of orthostatic hypotension, -please check blood pressure bid -see primary care for blood pressure check -if any chest pain got to emergency room Discharge Attestations Time Spent in Discharge Care*: greater than 30 min Status at Discharge: Cognitive status at discharge: cognitively intact, Behavioral status at discharge: cooperative, Quality Metrics Clinical Quality Measures [ No reported AMI, CVA or VTE this stay] Coding Level of Care Code 93406 Total time (in minutes) for Discharge: 45 Diagnoses End stage renal disease on dialysis N18.6; Z99.2
[2024-05-20 12:00] VITALS: BP 101/65; PULSE 80; RESP 17; TEMP 36.8; O2SAT 96
--- NOTE | 2024-05-20 13:08 | PC.OT ---
OT EVALUATION HELD PATIENT IS SCHEDULED FOR D/C TODAY.
--- NOTE | 2024-05-20 17:52 | PC.NURSE ---
Discharge Note Patient discharged to home via private vehicle accompanied by friend. Discharge instructions reviewed with patient and/or practice representative. Mobile pharmacy medications and/or prescriptions provided. Belongings/home medications returned.
[2024-05-20 17:58] VITALS: BP 101/65; PULSE 80; RESP 17; TEMP 36.8; O2SAT 96
--- OUTSIDE RECORDS SUMMARY | 2024-05-25 05:36 | XMS_ITS | Encounter Summary ---
Author Organization [facility] Address [address] [place] [address] Care Team Providers Care Shredding Machine Operator Name Role Phone Feliberto Jacome MD Primary Care Provider [phone] Encounter Details Date Type Department Care Team (Latest Contact Info) Description 09/22/2001 Outpatient Historical HIS [facility] Feliberto Jacome MD [address] [place] [address] DIABETES UNCOMPL ADULT-TYPE II (CMS/HCC) (Primary Dx); HYPERTENSION NOS; HYPERLIPIDEMIA NEC/NOS Social History Tobacco Use Types Packs/Day Years Used Date Smoking Tobacco: Never Assessed Sex and Gender Information Value Date Recorded Sex Assigned at Not on file 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 Gender Identity Not on file Sexual Orientation Not on file documented as of this encounter Plan of Treatment Not on file documented as of this encounter Visit Diagnoses Diagnosis Type II or unspecified type diabetes mellitus without mention of complication, not stated as uncontrolled (CMS/HCC)- Primary Type II or unspecified type diabetes mellitus without mention of complication, not stated as uncontrolled Unspecified essential hypertension Other and unspecified hyperlipidemia documented in this encounter Care Teams Shredding Machine Operator Relationship Specialty Start Date End Date Feliberto Jacome MD PCP - General 11/08/02 documented as of this encounter
--- OUTSIDE RECORDS SUMMARY | 2024-05-25 05:36 | XMS_ITS | Encounter Summary ---
Author Organization [facility] Address [address] [place] [address] Care Team Providers Care Band Saw Runner Name Role Phone Feliberto Jacome MD Primary Care Provider [phone] Encounter Details Date Type Department Care Team (Latest Contact Info) Description 02/02/2001 Outpatient Historical HIS [facility] Feliberto Jacome MD [address] [place] [address] Type II or unspecified type diabetes mellitus without mention of complication, not stated as uncontrolled (CMS/HCC) (Primary Dx); Unspecified essential hypertension; Obesity, unspecified Social History Tobacco Use Types Packs/Day Years Used Date Smoking Tobacco: Never Assessed Sex and Gender Information Value Date Recorded Sex Assigned at Not on file 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
--- OUTSIDE RECORDS SUMMARY | 2024-05-25 05:36 | XMS_ITS | Encounter Summary ---
Author Organization [facility] Address [address] [place] [address] Care Team Providers Care Digital Photographic Printer Name Role Phone Feliberto Jacome MD Primary Care Provider Encounter Details Date Type Department Care Team (Latest Contact Info) Description 09/08/2001 Outpatient Historical HIS [facility] Feliberto Jacome MD [address] [place] [address] HYPERLIPIDEMIA NEC/NOS (Primary Dx); AFTERCARE JAIL USE MEDICATN Social History Tobacco Use Types Packs/Day Years Used Date Smoking Tobacco: Never Assessed Sex and Gender Information Value Date Recorded Sex Assigned at Not on file 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
--- OUTSIDE RECORDS SUMMARY | 2024-05-25 05:36 | XMS_ITS | Encounter Summary ---
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
--- OUTSIDE RECORDS SUMMARY | 2024-05-25 05:36 | XMS_ITS | Encounter Summary ---
Author Organization [facility] Address [address] [place] [address] Care Team Providers Care Power Tool Repairer Name Role Phone Feliberto Jacome MD Primary Care Provider [phone]- [phone] Encounter Details Date Type Department Care Team (Latest Contact Info) Description 09/01/2001 Outpatient Historical HIS [facility] Feliberto Jacome MD [address] [place] [address] DIABETES UNCOMPL ADULT-TYPE II (CMS/HCC) (Primary Dx); HYPERLIPIDEMIA NEC/NOS Social History Tobacco Use Types Packs/Day Years Used Date Smoking Tobacco: Never Assessed Sex and Gender Information Value Date Recorded Sex Assigned at Not on file 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 ART 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 Gender Identity Not on file Sexual Orientation Not on file documented as of this encounter Plan of Treatment Not on file documented as of this encounter Visit Diagnoses Diagnosis Type II or unspecified type diabetes mellitus without mention of complication, not stated as uncontrolled (CMS/HCC)- Primary Type II or unspecified type diabetes mellitus without mention of complication, not stated as uncontrolled Other and unspecified hyperlipidemia documented in this encounter Care Teams Power Tool Repairer Relationship Specialty Start Date End Date Feliberto Jacome MD PCP - General 11/08/02 documented as of this encounter
--- OUTSIDE RECORDS SUMMARY | 2024-05-25 05:36 | XMS_ITS | Encounter Summary ---
Author Organization [facility] Address [address] [place] [address] Care Team Providers Care Hide Sorter Name Role Phone Feliberto Jacome MD Primary Care Provider [phone]- [phone] Encounter Details Date Type Department Care Team (Latest Contact Info) Description 05/13/2002 Outpatient Historical HIS [facility] Feliberto Jacome MD [address] [place] [address] HEMATURIA (Primary Dx); DYSURIA; DIABETES UNCOMPL ADULT-TYPE II (CMS/HCC); GOUT NOS Social History Tobacco Use Types Packs/Day Years Used Date Smoking Tobacco: Never Assessed Sex and Gender Information Value Date Recorded Sex Assigned at Not on file 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 TOOL HONING MACHINE SET UP OPERATOR Gender Identity Not on file Sexual Orientation Not on file documented as of this encounter Plan of Treatment Not on file documented as of this encounter Visit Diagnoses Diagnosis Hematuria- Primary Dysuria Type II or unspecified type diabetes mellitus without mention of complication, not stated as uncontrolled (CMS/HCC) Type II or unspecified type diabetes mellitus without mention of complication, not stated as uncontrolled Gout, unspecified documented in this encounter Care Teams Hide Sorter Relationship Specialty Start Date End Date Feliberto Jacome MD PCP - General 11/08/02 documented as of this encounter
--- OUTSIDE RECORDS SUMMARY | 2024-05-25 05:36 | XMS_ITS | Clinical Summary ---
Author Organization [facility] Address [address] [facility] Attn: Epic Prelude ADT ZHANNA PERDOMO [address] Care Team Providers Care Seismographer Name Role Phone Felibetro Jacome MD Primary Care Provider Allergies Active Allergy Reactions Criticality Noted Date Comments Chicken Derived Hives High 01/06/2014 Morphine Dizziness,Unknown,Nausea and Vomiting Medium 06/03/2022 Medications insulin aspart U-100 (NovoLOG) 100 unit/mL pen syringe 6 units QACTID SSI. 30 mL 3 6 Active insulin aspart U-100 (NovoLOG) 100 unit/mL vial 6 units + correction QACTID. 10 mL 11 6 Active pravastatin (PRAVACHOL) 40 mg tabletIndicatio ns:Hyperlipidem ia with target LDL less than 100 Take 1 Tablet (40 mg) by mouth Daily LATE. 30 Tablet 3 6 Active Insulin [place], Disposable, 31 gauge x 3/16 Needle Use to inject insulin 5 times daily. 450 Each 3 6 Active insulin detemir U-100 (LEVEMIR) 100 unit/mL pen syringe Inject 44 units am and 50 units pm. 30 mL 3 6 Active ergocalciferol (VITAMIN D2) 50,000 unit capsuleIndicati ons:Hypovitamin osis D Take 1 Capsule (50,000 Units) by mouth every 7 days For 12 weeks, followed by 1 cap monthly. 4 Capsule 4 6 Active allopurinoL (ZYLOPRIM) 300 mg tablet Take 300 mg by mouth daily. 3 Active amLODIPine (NORVASC) 10 mg tablet Take 10 mg by mouth daily. 3 Active aspirin (Aspirin Childrens) 81 mg Tablet, Chewable Take 81 mg by mouth daily. 3 Active aspirin-dipyrid amole SR 12 hour (AGGRENOX) 25-200 mg capsule Take 1 Capsule by mouth 2 times daily. Active carvediloL (COREG) 12.5 mg tablet Take 12.5 mg by mouth daily. 2 Active cetirizine (ZyrTEC) 10 mg tablet Take 10 mg by mouth 2 times daily. 2 Active Cholecalciferol , Vitamin D3, 50 mcg (2,000 unit) Capsule Take 50 mcg by mouth daily. 2 Active clopidogreL (PLAVIX) 75 mg Tablet Take 75 mg by mouth daily. 2 Active docusate sodium (COLACE) 100 mg capsule Take 100 mg by mouth 2 times daily. 3 Active escitalopram oxalate (LEXAPRO) 20 mg tablet Take 20 mg by mouth daily. 3 Active folic acid (FOLVITE) 400 mcg Tablet 0.4 mg. 3 Active furosemide (LASIX) 80 mg tablet Take 80 mg by mouth daily. 3 Active hydrALAZINE (APRESOLINE) 10 mg tablet Take 10 mg by mouth 3 times daily. 3 Active insulin glargine-yfgn 100 unit/mL pen syringe Inject 100 Units by subcutaneous injection one time only. 3 Active Irbesartan (AVAPRO) 300 mg tablet 300 mg. 3 Active levothyroxine 25 mcg tablet Take 0.025 mg by mouth daily. 2 Active lisinopriL (PRINIVIL) 20 mg tablet Take 20 mg by mouth 2 times daily. Active magnesium oxide (MAG-OX) 400 mg (241.3 mg magnesium) tablet 400 mg. 1 Active meclizine (ANTIVERT) 50 mg Tablet Take 1 Tablet by mouth every 6 hours as needed. 3 Active metoprolol tartrate (LOPRESSOR) 50 mg tablet Take 50 mg by mouth 2 times daily. Active NIFEdipine (ADALAT CC) 60 mg Extended Release tablet Take 60 mg by mouth daily. Active nitroglycerin (NITROSTAT) 0.4 mg Tablet, Sublingual Place 0.4 mg under tongue every 5 minutes as needed. 2 Active ondansetron (Zofran) 4 mg Tablet Take 1 Tablet by mouth. 3 Active pantoprazole (PROTONIX) 40 mg Tablet, Delayed Release (E.C.) Take 40 mg by mouth daily. 3 Active ranolazine ER (RANEXA) 500 mg Extended Release 12 hour tablet Take 1 Tablet by mouth 2 times daily. 3 Active rosuvastatin (CRESTOR) 10 mg tablet Take 10 mg by mouth daily. 1 Active semaglutide 0.25 mg or 0.5 mg(2 mg/1.5 mL) Pen Injector 1 mg by Injection route every 7 days. 2 Active sevelamer carbonate (RENVELA) 800 mg Tablet 1,600 mg. 3 Active terazosin (HYTRIN) 10 mg capsule Take 10 mg by mouth daily. 3 Active insulin aspart U-100 (NovoLOG Flexpen U-100 Insulin) 100 unit/mL pen syringe Inject by subcutaneous injection. 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) use of insulin 03/25/2016 Type II or unspecified type diabetes mellitus without mention of complication, uncontrolled 01/06/2014 Hypertension 01/06/2014 Obesity (BMI 30-39.9) 01/06/2014 Hyperlipidemia with target LDL less than 100 CVA (cerebral infarction) 01/06/2014 Encounters Date Type Department Care Team Description 05/18/2024 External Device Data ST[facility] ABSTRACTION Provider, Abstract 03/31/2024 8:21 AM VAMP SEAMER - 03/31/2024 11:59 PM [facility] [[email or web address] Hospital Encounter [facility] Interventional Radiology [address] [place] [id number] Saray Barbosa MD Alford, Julie A, MD Discharge Disposition: Home or Self Care 03/30/2024 Telephone [facility] Interventional Radiology [address] [place] [id number] Jessica Nguyen RN Procedure from Last 3 Months Immunizations Immunization Administration Dates Next Due (PNEUMOVAX 23)(50 YRS UP) PN EUMOCOCCAL POLYSACCHARIDE (PPV23) 0.5 ML, IM 07/31/2007 Dt Dtp Dtap Vaccine 05/22/1998 Social History Tobacco Use Types Packs/Day Years Used Date Smoking Tobacco: Former Cigars Smokeless Tobacco: Never Tobacco Cessation:Counseling Given: Not Answered Sex and Gender Information Value Date Recorded Sex Assigned at Not on file Legal Sex Male 4:30 PM VAMP SEAMER Gender Identity Not on file Sexual Orientation Not on file Last Filed Vital Signs Vital Sign Reading Time Taken Comments Blood Pressure 170/79 03/31/2024 11:50 AM VAMP SEAMER Pulse 58 03/31/2024 12:00 PM VAMP SEAMER Temperature 36.1 ??C (97 ??F) 03/31/2024 11:50 AM VAMP SEAMER Respiratory Rate 20 03/31/2024 12:00 PM VAMP SEAMER Oxygen Saturation 90% 03/31/2024 12:00 PM VAMP SEAMER Inhaled Oxygen Concentration - - Weight 94.3 kg (208 lb) 03/31/2024 8:34 AM VAMP SEAMER Height 167.6 cm (5' 6 ) 03/31/2024 8:34 AM VAMP SEAMER Body Mass Index 33.57 03/31/2024 8:34 AM VAMP SEAMER Plan of Treatment Health Maintenance Due Date Last Done Comments COLORECTAL SCREENING 1995 Colorectal Cancer Screening 1995 FIT-DNA Q 3 years 1995 FIT/FOBT Q 1 year 1995 Flex Sig/CT Colonography Q 5 years 1995 RSV VACCINE (60+ or ) (1 - Risk 60-74 years 1-dose series) 2010 Abdominal Aortic Aneurysm (A AA) Screening 2015 DIABETES MICROALBUMIN ANNUAL SCREEN 09/05/2018 09/05/2017, 10/27/2015, 10/28/2014, Additional history exists DIABETES ANNUAL FOOT EXAM 09/08/2018 09/08/2017, DIABETES ANNUAL RETINAL EXAM 11/25/201810/2017, 11/25/2017, 11/25/2017, Additional history exists LDL CHOLESTEROL ANNUAL 02/18/2020 9, 12/01/2017, 09/05/2017, Additional history exists INFLUENZA VACCINE (#1) 2023 DIABETES HBA1C Q 6 MONTHS 09/23/20242023, 02/17/2019, 08/11/2018, Additional history exists DTAP/TDAP/TD VACCINES (3 - T d or Tdap) 10/16/2026 10/16/2016, 05/22/1998 PNEUMOCOCCAL VACCINE 65+ YEARS Completed 0 09/01/2020, 08/12/2020, 10/26/2018, Additional history exists ZOSTER VACCINE Completed 10/19/2021, 07/0 04/2018, 07/20/2018 Procedures Procedure Name Priority Date/Time Associated Diagnosis Comments OXYGEN VIA DEVICE TO KEEP O2 SAT BETWEEN Routine 03/31/2024 11:06 AM VAMP SEAMER IR FISTULOGRAM Routine 03/31/2024 11:03 AM VAMP SEAMER End stage renal disease ([facility]) LIPID PANEL Routine 02/17/2019 HEMOGLOBIN A1C Routine 02/17/2019 HM DIABETES EYE EXAM 11/25/2017 12:00 AM CDT MICROALBUMIN/CREATIN INE RATIO, RANDOM UR Routine 09/05/2017 8:14 AM CDT from Last 3 Months or Most Recently Relevant to Health Maintenance Results * IR FISTULOGRAM (03/31/2024 11:03 AM VAMP SEAMER) Anatomical Region Laterality Modality X-Ray Angiograph y 03/31/2024 11:0 3 AM VAMP SEAMER Impressions 04/01/2024 9:21 AM VAMP SEAMER IMPRESSION: Please see below. Exam: IR FISTULOGRAM-Left Forearm Radiocephalic Arteriovenous Dialysis Fistulogram with Angioplasty of the Arterial Limb Date/Time of Exam: 03/31/2024 11:03 AM Reason For Exam: The patient is a 73-year-old male with a dysfunctional left forearm AV dialysis fistula. Diagnosis: End stage renal disease. Findings: Comparison 06/16/2023. The procedure and its risks, benefits and alternatives were explained to the patient. Consent to proceed was obtained. Moderate IV conscious sedation was provided with 2 mg of Versed and 100 mcg of fentanyl. Sedation time was 40 minutes. 85 mL of contrast was utilized. The left arm was prepped and draped in the usual fashion. Local anesthesia was achieved with lidocaine. The arterial limb of the fistula was then accessed with a micropuncture needle directed centrally. The micropuncture needle was exchanged under fluoroscopy over a guidewire for a 4 Congolese dilator. The fistulogram was performed through the dilator. Imaging of the central venous circulation was performed. The superior vena cava and left innominate vein are widely patent. On some images, there is a questionable stenosis at the junction of the left subclavian vein with the left innominate vein, but on real-time imaging the area is noted to adequately fill without evidence for flow limiting stenosis. The outflow basilic and cephalic veins are widely patent. The venous limb of the fistula is widely patent. There are two pseudoaneurysms of the midportion of the fistula. The midportion of the fistula is patent without flow-limiting stenosis. Contrast was refluxed across the arterial limb and arteriovenous anastomosis. There is a moderate stenosis of the arterial limb. The arteriovenous anastomosis is widely patent. While attempting to exchange the 4 Congolese dilator for a 5 Congolese dilator, access was lost. Hemostasis was obtained with light manual compression. Local anesthesia was achieved with lidocaine. The venous limb of the fistula was then accessed with the micropuncture needle directed peripherally. This was exchanged under fluoroscopy over a guidewire for the 4 Congolese dilator. The dilator was then exchanged over a Glidewire for a 6 mm x 4 cm Glasgow balloon angioplasty catheter. The stenosis was crossed with an angled Glidewire followed by the angioplasty catheter. Angioplasty of the arterial limb stenosis was performed. Follow-up imaging revealed improvement. The catheter was removed. Hemostasis was achieved with light manual compression. The patient tolerated the procedure well. There were no immediate postprocedure complications. Estimated blood loss was minimal. IMPRESSION: A moderate stenosis of the arterial limb of the fistula was identified and treated with angioplasty with improvement. Of note, flow was noted to be somewhat sluggish throughout the exam even post angioplasty. This patient may have diminished cardiac function. [id number] ? Narrative Procedure Note Luciana Robbins MD - 04/01/2024 IMPRESSION: Please see below. Exam: IR FISTULOGRAM-Left Forearm Radiocephalic Arteriovenous Dialysis Fistulogram with Angioplasty of the Arterial Limb Date/Time of Exam: 03/31/2024 11:03 AM Reason For Exam: The patient is a 73-year-old male with a dysfunctional left forearm AV dialysis fistula. Diagnosis: End stage renal disease. Findings: Comparison 06/16/2023. The procedure and its risks, benefits and alternatives were explained to the patient. Consent to proceed was obtained. Moderate IV conscious sedation was provided with 2 mg of Versed and 100 mcg of fentanyl. Sedation time was 40 minutes. 85 mL of contrast was utilized. The left arm was prepped and draped in the usual fashion. Local anesthesia was achieved with lidocaine. The arterial limb of the fistula was then accessed with a micropuncture needle directed centrally. The micropuncture needle was exchanged under fluoroscopy over a guidewire for a 4 Congolese dilator. The fistulogram was performed through the dilator. Imaging of the central venous circulation was performed. The superior vena cava and left innominate vein are widely patent. On some images, there is a questionable stenosis at the junction of the left subclavian vein with the left innominate vein, but on real-time imaging the area is noted to adequately fill without evidence for flow limiting stenosis. The outflow basilic and cephalic veins are widely patent. The venous limb of the fistula is widely patent. There are two pseudoaneurysms of the midportion of the fistula. The midportion of the fistula is patent without flow-limiting stenosis. Contrast was refluxed across the arterial limb and arteriovenous anastomosis. There is a moderate stenosis of the arterial limb. The arteriovenous anastomosis is widely patent. While attempting to exchange the 4 Congolese dilator for a 5 Congolese dilator, access was lost. Hemostasis was obtained with light manual compression. Local anesthesia was achieved with lidocaine. The venous limb of the fistula was then accessed with the micropuncture needle directed peripherally. This was exchanged under fluoroscopy over a guidewire for the 4 Congolese dilator. The dilator was then exchanged over a Glidewire for a 6 mm x 4 cm Glasgow balloon angioplasty catheter. The stenosis was crossed with an angled Glidewire followed by the angioplasty catheter. Angioplasty of the arterial limb stenosis was performed. Follow-up imaging revealed improvement. The catheter was removed. Hemostasis was achieved with light manual compression. The patient tolerated the procedure well. There were no immediate postprocedure complications. Estimated blood loss was minimal. IMPRESSION: A moderate stenosis of the arterial limb of the fistula was identified and treated with angioplasty with improvement. Of note, flow was noted to be somewhat sluggish throughout the exam even post angioplasty. This patient may have diminished cardiac function. [id number] us Saray Barbosa MD IR ORDERABLES Final Result * HEMOGLOBIN A1C (02/17/2019) ABSTRACTED HGB A1C 9.6 [facility] HEMO[facility]IN A1C ^ [facility] HEMOGLOBIN A1C [facility] GLU[facility]SE, MEAN BLOOD [facility] Blood 02/17/2019 Narrative [facility] - 02/17/2019 12:00 AM CDT This order was created through External Result Entry us Abstract Spg Provider CHEMISTRY ORDERABLES Final Result Performing Organization Address City/[facility] Co de Phone Number [facility] * LIPID PANEL (02/17/2019) ABSTRACTED CHOLESTEROL 165 [facility] ABSTRACTED TRIGLYCERIDE 86 [facility] ABSTRACTED HDL 39 [facility] ABSTRACTED LDL CALCULATED 109 [facility] CHOLESTEROL ^ [facility] TRIGLYCERIDE ^ [facility] HDL ^ [facility] LDL CALCULATED ^ [facility] Blood 02/17/2019 Narrative [facility] - 02/17/2019 12:00 AM CDT This order was created through External Result Entry us Abstract Spg Provider CHEMISTRY ORDERABLES Final Result [facility] * HM DIABETES EYE EXAM (11/25/2017 12:00 AM CDT) us Sgf Scanning HEALTH MAINTENANCE Final Result * (ABNORMAL) MICROALBUMIN/CREATININE RATIO, RANDOM UR (09/05/2017 8:14 AM CDT) MICROALBUMIN, URINE 57.0 No Reference Range mg/dL 09/05/2017 9:24 AM CDT [facility] CREATININE, URINE 134.9 40.0 - 278.0 mg/dL 09/05/2017 9:24 AM CDT [facility] Comment: Reference Range varies with fluid intake and diet. MICROALBUMIN/ CREAT RATIO, UR 422.5(H) <17.0 mg/g 09/05/2017 9:24 AM CDT [facility] Urine URINE SPECIMEN OBTAINED BY CLEAN CATCH PROCEDURE / Unknown Collection / Unknown 09/05/2017 8:14 AM CDT 09/05/2017 8:35 AM CDT Narrative [facility] - 09/05/2017 9:24 AM CDT Condition ? Microalbumin/Creat ratio Normal Males ? <17 Normal Females ? <25 Microalbuminuria Males ?17-299 Microalbuminuria Females ?25-299 Overt proteinuria ? >=300 us Heydi Mckinney MD URINE ORDERABLES Final Result [facility] CLIA# [id number] [address] [place] [address] from Last 3 Months or Most Recently Relevant to Health Maintenance Insurance MEDICARE PART A AND B [facility] [id number] Care Teams Seismographer Relationship Specialty Start Date End Date Feliberto Jacome MD PCP - General 11/08/02
--- OUTSIDE RECORDS SUMMARY | 2024-05-25 05:36 | XMS_ITS | Encounter Summary ---
Author Organization [facility] Address [address] [place] [address] Care Team Providers Care Management Instructor Name Role Phone Feliberto Jacome MD Primary Care Provider Encounter Details Date Type Department Care Team (Latest Contact Info) Description 06/30/2001 Outpatient Historical HIS [facility] Dakota Chatman MD [address] [place], [place] [address] CELLULITIS OF TRUNK (Primary Dx) Social History Tobacco Use Types Packs/Day Years Used Date Smoking Tobacco: Never Assessed Sex and Gender Information Value Date Recorded Sex Assigned at Not on file 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 SENIOR ASSET MANAGER Gender Identity Not on file Sexual Orientation Not on file documented as of this encounter Plan of Treatment Not on file documented as of this encounter Visit Diagnoses Diagnosis Cellulitis and abscess of trunk- Primary documented in this encounter Care Teams Management Instructor Relationship Specialty Start Date End Date Feliberto Jacome MD PCP - General 11/08/02 documented as of this encounter
--- OUTSIDE RECORDS SUMMARY | 2024-05-25 05:36 | XMS_ITS ---
Author Organization Unknown TREATMENT PLAN [facility] Start Date Provider Encounter for Check-up [id number] [facility]
--- OUTSIDE RECORDS SUMMARY | 2024-05-25 05:36 | XMS_ITS | Encounter Summary ---
Author Organization [facility] Address [address] [place] [address] Care Team Providers Care Pilot Captain Name Role Phone Feliberto Jacome MD Primary Care Provider [phone] Encounter Details Date Type Department Care Team (Latest Contact Info) Description 05/15/1998 Outpatient Historical HIS [facility] David Daley Jr., MD [address] [place] [phone] Routine medical exam (Primary Dx); Malignant neoplasm of bone and articular cartilage, site unspecified (CMS/HCC) Social History Tobacco Use Types Packs/Day Years Used Date Smoking Tobacco: Never Assessed Sex and Gender Information Value Date Recorded Sex Assigned at Not on file 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 CLEARANCE COORDINATOR Gender Identity Not on file Sexual Orientation Not on file documented as of this encounter Plan of Treatment Not on file documented as of this encounter Visit Diagnoses Diagnosis Routine medical exam- Primary Routine general medical examination at a health care facility Malignant neoplasm of bone and articular cartilage, 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
--- OUTSIDE RECORDS SUMMARY | 2024-05-25 05:36 | XMS_ITS | Encounter Summary ---
Author Organization [facility] Address [address] [place] [address] Care Team Providers Care Cricket Coach Name Role Phone Feliberto Jacome MD Primary Care Provider [phone] Encounter Details Date Type Department Care Team (Latest Contact Info) Description 09/01/1998 Outpatient Historical HIS [facility] David Daley Jr., MD [address] [place] [phone] Unspecified essential hypertension (Primary Dx); Lumbago; Obesity, unspecified Social History Tobacco Use Types Packs/Day Years Used Date Smoking Tobacco: Never Assessed Sex and Gender Information Value Date Recorded Sex Assigned at Not on file 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 MANAGEMENT ASSISTANT Gender Identity Not on file Sexual Orientation Not on file documented as of this encounter Plan of Treatment Not on file documented as of this encounter Visit Diagnoses Diagnosis Unspecified essential hypertension- Primary Lumbago Obesity, unspecified documented in this encounter Care Teams Cricket Coach Relationship Specialty Start Date End Date Feliberto Jacome MD PCP - General 11/08/02 documented as of this encounter
--- OUTSIDE RECORDS SUMMARY | 2024-05-25 05:36 | XMS_ITS | Encounter Summary ---
Author Organization [facility] Address [address] [place] [address] Care Team Providers Care Direct Care Counselor Name Role Phone Feliberto Jacome MD Primary Care Provider Encounter Details Date Type Department Care Team (Late st Contact Info) Description 05/05/1998 Outpatient Historical HIS [facility] Social History Tobacco Use Types Packs/Day Years Used Date Smoking Tobacco: Never Assessed Sex and Gender Information Value Date Recorded Sex Assigned at Not on file 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 AOC OPERATIONS INTELLIGENCE CHIEF Gender Identity Not on file Sexual Orientation Not on file documented as of this encounter Plan of Treatment Not on file documented as of this encounter Visit Diagnoses Not on filedocumented in this encounter Care Teams Direct Care Counselor Relationship Specialty Start Date End Date Feliberto Jacome MD PCP - General 11/08/02 documented as of this encounter
--- OUTSIDE RECORDS SUMMARY | 2024-05-25 05:36 | XMS_ITS | Encounter Summary ---
Author Organization [facility] Address [address] [place] [address] Care Team Providers Care Master Naval Parachutist Name Role Phone Feliberto Jacome MD Primary Care Provider Encounter Details Date Type Department Care Team (Latest Contact Info) Description 07/03/2001 Outpatient Historical HIS [facility] Dakota Chatman MD [address] [place], [place] [address] CELLULITIS NOS (Primary Dx) Social History Tobacco Use Types Packs/Day Years Used Date Smoking Tobacco: Never Assessed Sex and Gender Information Value Date Recorded Sex Assigned at Not on file 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 MATERIAL HANDLING WAREHOUSE SUPERVISOR Gender Identity Not on file Sexual Orientation Not on file documented as of this encounter Plan of Treatment Not on file documented as of this encounter Visit Diagnoses Diagnosis Cellulitis and abscess of unspecified site- Primary documented in this encounter Care Teams Master Naval Parachutist Relationship Specialty Start Date End Date Feliberto Jacome MD PCP - General 11/08/02 documented as of this encounter
--- OUTSIDE RECORDS SUMMARY | 2024-05-25 05:36 | XMS_ITS | Encounter Summary ---
Author Organization [facility] Address [address] [place] [address] Care Team Providers Care Fire Management Specialist Name Role Phone Feliberto Jacome MD Primary Care Provider [phone]- [phone] Encounter Details Date Type Department Care Team (Latest Contact Info) Description 05/12/1998 Outpatient Historical HIS [facility] David Daley Jr., MD [address] [place] [phone] Malig claire vertebrae (Primary Dx) Social History Tobacco Use Types Packs/Day Years Used Date Smoking Tobacco: Never Assessed Sex and Gender Information Value Date Recorded Sex Assigned at Not on file 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 MAIL ROOM CLERK Gender Identity Not on file Sexual Orientation Not on file documented as of this encounter Plan of Treatment Not on file documented as of this encounter Visit Diagnoses Diagnosis 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
--- OUTSIDE RECORDS SUMMARY | 2024-05-25 05:36 | XMS_ITS | Encounter Summary ---
Author Organization [facility] Address [address] [place] [address] Care Team Providers Care Purchasing And Fiscal Clerk Name Role Phone Feliberto Jacome MD Primary Care Provider +1- [phone] Encounter Details Date Type Department Care Team (Latest Contact Info) Description 05/14/2002 Outpatient Historical HIS [facility] Feliberto Jacome MD [address] [place] [address] GOUT NOS (Primary Dx); HYPERLIPIDEMIA NEC/NOS; HYPERTENSION NOS; DIABETES UNCOMPL ADULT-TYPE II (CMS/HCC); AFTERCARE USP USE MEDICATN Social History Tobacco Use Types Packs/Day Years Used Date Smoking Tobacco: Never Assessed Sex and Gender Information Value Date Recorded Sex Assigned at Not on file 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 TOOLER Gender Identity Not on file Sexual Orientation Not on file documented as of this encounter Plan of Treatment Not on file documented as of this encounter Visit Diagnoses Diagnosis Gout, unspecified- Primary Other and unspecified hyperlipidemia Unspecified essential hypertension Type II or unspecified type diabetes mellitus without mention of complication, not stated as uncontrolled (CMS/HCC) Type II or unspecified type diabetes mellitus without mention of complication, not stated as uncontrolled Encounter for long-term (current) use of other medications documented in this encounter Care Teams Purchasing And Fiscal Clerk Relationship Specialty Start Date End Date Feliberto Jacome MD PCP - General 11/08/02 documented as of this encounter
--- OUTSIDE RECORDS SUMMARY | 2024-05-25 05:36 | XMS_ITS | Encounter Summary ---
Author Organization [facility] Address [address] [place] [address] Care Team Providers Care Machine Guide Base Winder Name Role Phone Feliberto Jacome MD Primary Care Provider [phone] Encounter Details Date Type Department Care Team (Latest Contact Info) Description 01/11/2002 Outpatient Historical HIS [facility] Feliberto Jacome MD [address] [place] [address] GOUTY ARTHROPATHY (Primary Dx) Social History Tobacco Use Types Packs/Day Years Used Date Smoking Tobacco: Never Assessed Sex and Gender Information Value Date Recorded Sex Assigned at Not on file 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
--- OUTSIDE RECORDS SUMMARY | 2024-05-25 05:36 | XMS_ITS | Encounter Summary ---
Author Organization [facility] Address [address] [place] [address] Care Team Providers Care Accounts Clerk Name Role Phone Feliberto Jacome MD Primary Care Provider +1- [phone] Encounter Details Date Type Department Care Team (Latest Contact Info) Description 05/22/1998 Outpatient Historical HIS 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
--- OUTSIDE RECORDS SUMMARY | 2024-05-25 05:36 | XMS_ITS | Encounter Summary ---
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
--- OUTSIDE RECORDS SUMMARY | 2024-05-25 05:36 | XMS_ITS | Encounter Summary ---
Author Organization [facility] Address [address] [place] [address] Care Team Providers Care Welfare Eligibility Worker Name Role Phone Feliberto Jacome MD Primary Care Provider +1- [phone] Encounter Details Date Type Department Care Team (Latest Contact Info) Description 09/02/2000 Outpatient Historical HIS [facility] Donnie Vieyra NO ADDRESS ON FILE Type II or unspecified type diabetes mellitus without mention of complication, not stated as uncontrolled (CMS/HCC) (Primary Dx); Other and unspecified hyperlipidemia; Unspecified essential hypertension Social History Tobacco Use Types Packs/Day Years Used Date Smoking Tobacco: Never Assessed Sex and Gender Information Value Date Recorded Sex Assigned at Not on file 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
--- OUTSIDE RECORDS SUMMARY | 2024-05-25 05:36 | XMS_ITS | Encounter Summary ---
Author Organization [facility] Address [address] [place] [address] Care Team Providers Care Billing Administrator Name Role Phone Feliberto Jacome MD Primary Care Provider +1- [phone] Encounter Details Date Type Department Care Team (Latest Contact Info) Description 09/30/2000 Outpatient Historical HIS [facility] Donnie Vieyra NO ADDRESS ON FILE Type II or unspecified type diabetes mellitus without mention of complication, not stated as uncontrolled (CMS/HCC) (Primary Dx); Pure hypercholesterolem; Unspecified essential hypertension; Encounter for long-term (current) use of other medications Social History Tobacco Use Types Packs/Day Years Used Date Smoking Tobacco: Never Assessed Sex and Gender Information Value Date Recorded Sex Assigned at Not on file 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 Gender Identity Not on file Sexual Orientation Not on file documented as of this encounter Plan of Treatment Not on file documented as of this encounter Visit Diagnoses Diagnosis Type II or unspecified type diabetes mellitus without mention of complication, not stated as uncontrolled (CMS/HCC)- Primary Type II or unspecified type diabetes mellitus without mention of complication, not stated as uncontrolled Pure hypercholesterolem Pure hypercholesterolemia Unspecified essential hypertension Encounter for long-term (current) use of other medications documented in this encounter Care Teams Billing Administrator Relationship Specialty Start Date End Date Feliberto Jacome MD PCP - General 11/08/02 documented as of this encounter
--- OUTSIDE RECORDS SUMMARY | 2024-05-25 05:36 | XMS_ITS | Encounter Summary ---
Author Organization [facility] Address [address] [place] [address] Care Team Providers Care Forestry Pilot Name Role Phone Feliberto Jacome MD Primary Care Provider +1- [phone] Encounter Details Date Type Department Care Team (Latest Contact Info) Description 06/20/1998 Outpatient Historical HIS [facility] Jose Enrique Valdez MD NO ADDRESS ON FILE Disorder of bone and cartilage, unspecified (Primary Dx); Backache, unspecified Social History Tobacco Use Types Packs/Day Years Used Date Smoking Tobacco: Never Assessed Sex and Gender Information Value Date Recorded Sex Assigned at Not on file 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
--- OUTSIDE RECORDS SUMMARY | 2024-05-25 05:36 | XMS_ITS | Encounter Summary ---
Author Organization [facility] Address [address] [place] [address] Care Team Providers Care Communications Professional Name Role Phone Feliberto Jacome MD Primary Care Provider +1- [phone] Encounter Details Date Type Department Care Team (Latest Contact Info) Description 06/14/2002 Outpatient Historical HIS [facility] Feliberto Jacome MD [address] [place] [address] HYPERTENSION NOS (Primary Dx); GOUT NOS; DIABETES UNCOMPL ADULT-TYPE II (CMS/HCC) Social History Tobacco Use Types Packs/Day Years Used Date Smoking Tobacco: Never Assessed Sex and Gender Information Value Date Recorded Sex Assigned at Not on file 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 Gender Identity Not on file Sexual Orientation Not on file documented as of this encounter Plan of Treatment Not on file documented as of this encounter Visit Diagnoses Diagnosis Unspecified essential hypertension- Primary Gout, unspecified Type II or unspecified type diabetes mellitus without mention of complication, not stated as uncontrolled (CMS/HCC) Type II or unspecified type diabetes mellitus without mention of complication, not stated as uncontrolled documented in this encounter Care Teams Communications Professional Relationship Specialty Start Date End Date Feliberto Jacome MD PCP - General 11/08/02 documented as of this encounter
--- OUTSIDE RECORDS SUMMARY | 2024-05-25 05:36 | XMS_ITS | Encounter Summary ---
Author Organization [facility] Address [address] [place] [address] Care Team Providers Care Shift Supervisor Melting Name Role Phone Feliberto Jacome MD Primary Care Provider +1- [phone] Encounter Details Date Type Department Care Team (Latest Contact Info) Description 11/03/2000 Outpatient Historical HIS [facility] Donnie Vieyra NO ADDRESS ON FILE Benign hypertension (Primary Dx); Type II or unspecified type diabetes mellitus without mention of complication, not stated as uncontrolled (CMS/HCC) Social History Tobacco Use Types Packs/Day Years Used Date Smoking Tobacco: Never Assessed Sex and Gender Information Value Date Recorded Sex Assigned at Not on file 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 Gender Identity Not on file Sexual Orientation Not on file documented as of this encounter Plan of Treatment Not on file documented as of this encounter Visit Diagnoses Diagnosis Benign hypertension- Primary Essential hypertension, benign Type II or unspecified type diabetes mellitus without mention of complication, not stated as uncontrolled (CMS/HCC) Type II or unspecified type diabetes mellitus without mention of complication, not stated as uncontrolled documented in this encounter Care Teams Shift Supervisor Melting Relationship Specialty Start Date End Date Feliberto Jacome MD PCP - General 11/08/02 documented as of this encounter
--- OUTSIDE RECORDS SUMMARY | 2024-05-25 05:36 | XMS_ITS | Encounter Summary ---
Author Organization [facility] Address [address] [place] [address] Care Team Providers Care Mechanical Design Technician Name Role Phone Feliberto Jacome MD Primary Care Provider +1- [phone] Encounter Details Date Type Department Care Team (Latest Contact Info) Description 07/04/2000 Outpatient Historical HIS [facility] Donnie Vieyra NO ADDRESS ON FILE Benign hypertension (Primary Dx); Type II or unspecified type diabetes mellitus without mention of complication, uncontrolled Social History Tobacco Use Types Packs/Day Years Used Date Smoking Tobacco: Never Assessed Sex and Gender Information Value Date Recorded Sex Assigned at Not on file 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
--- OUTSIDE RECORDS SUMMARY | 2024-05-25 05:36 | XMS_ITS | Encounter Summary ---
Author Organization [facility] Address [address] [place] [address] Care Team Providers Care Hydraulic Oil Tool Operator Name Role Phone Feliberto Jacome MD Primary Care Provider +1- [phone] Encounter Details Date Type Department Care Team (Latest Contact Info) Description 02/10/2001 Outpatient Historical HIS [facility] Feliberto Jacome MD [address] [place] [address] Type II or unspecified type diabetes mellitus without mention of complication, not stated as uncontrolled (CMS/HCC) (Primary Dx); Unspecified essential hypertension Social History Tobacco Use Types Packs/Day Years Used Date Smoking Tobacco: Never Assessed Sex and Gender Information Value Date Recorded Sex Assigned at Not on file 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 PSYCHIATRIC NP Gender Identity Not on file Sexual Orientation [...] not stated as uncontrolled Unspecified essential hypertension documented in this encounter Care Teams Hydraulic Oil Tool Operator Relationship Specialty Start Date End Date Feliberto Jacome MD PCP - General 11/08/02 documented as of this encounter
--- OUTSIDE RECORDS SUMMARY | 2024-05-25 05:36 | XMS_ITS | Encounter Summary ---
Author Organization [facility] Address [address] [place] [address] Care Team Providers Care Wharf Attendant Name Role Phone Feliberto Jacome MD Primary Care Provider +1- [phone] Encounter Details Date Type Department Care Team (Latest Contact Info) Description 08/25/2001 Outpatient Historical HIS [facility] Feliberto Jacome MD [address] [place] [address] DIABETES UNCOMPL ADULT-TYPE II (CMS/HCC) (Primary Dx); HYPERLIPIDEMIA NEC/NOS; AFTERCARE DEVELOPMENT SYSTEM EFFICIENCY MANAGER USE MEDICATN Social History Tobacco Use Types Packs/Day Years Used Date Smoking Tobacco: Never Assessed Sex and Gender Information Value Date Recorded Sex Assigned at Not on file 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
--- OUTSIDE RECORDS SUMMARY | 2024-05-25 05:36 | XMS_ITS | Encounter Summary ---
Author Organization [facility] Address [address] [place] [address] Care Team Providers Care Protection Chief Industrial Plant Name Role Phone Feliberto Jacome MD Primary Care Provider +- [phone] Encounter Details Date Type Department Care Team (Latest Contact Info) Description 07/18/2000 Outpatient Historical HIS [facility] Donnie Vieyra NO ADDRESS ON FILE Type II or unspecified type diabetes mellitus without mention of complication, not stated as uncontrolled (CMS/HCC) (Primary Dx); Bronchitis, not specified as acute or chronic; Unspecified essential hypertension Social History Tobacco Use Types Packs/Day Years Used Date Smoking Tobacco: Never Assessed Sex and Gender Information Value Date Recorded Sex Assigned at Not on file 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 FORGE HAND Gender Identity Not on file Sexual Orientation Not on file documented as of this encounter Plan of Treatment Not on file documented as of this encounter Visit Diagnoses Diagnosis Type II or unspecified type diabetes mellitus without mention of complication, not stated as uncontrolled (CMS/HCC)- Primary Type II or unspecified type diabetes mellitus without mention of complication, not stated as uncontrolled Bronchitis, not specified as acute or chronic Unspecified essential hypertension documented in this encounter Care Teams Protection Chief Industrial Plant Relationship Specialty Start Date End Date Feliberto Jacome MD PCP - General 11/08/02 documented as of this encounter
--- OUTSIDE RECORDS SUMMARY | 2024-05-25 05:36 | XMS_ITS | Encounter Summary ---
Author Organization [facility] Address [address] [place] [address] Care Team Providers Care Perlite Grinder Name Role Phone Feliberto Jacome MD Primary Care Provider [phone] Encounter Details Date Type Department Care Team (Latest Contact Info) Description 03/23/2001 Outpatient Historical HIS [facility] Feliberto Jacome MD [address] [place] [address] DIABETES UNCOMPL ADULT-TYPE II (CMS/HCC) (Primary Dx); HYPERTENSION NOS Social History Tobacco Use Types Packs/Day Years Used Date Smoking Tobacco: Never Assessed Sex and Gender Information Value Date Recorded Sex Assigned at Not on file 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
--- OUTSIDE RECORDS SUMMARY | 2024-05-25 05:36 | XMS_ITS | Encounter Summary ---
Author Organization [facility] Address [address] [place] [address] Care Team Providers Care Computer Bookkeeper Name Role Phone Feliberto Jacome MD Primary Care Provider +1- [phone] Encounter Details Date Type Department Care Team (Latest Contact Info) Description 05/04/2001 Outpatient Historical HIS [facility] Feliberto Jacome MD [address] [place] [address] DIABETES UNCOMPL ADULT-TYPE II (CMS/HCC) (Primary Dx); HYPERTENSION NOS; AFTERCARE [facility] USE MEDICATN Social History Tobacco Use Types Packs/Day Years Used Date Smoking Tobacco: Never Assessed Sex and Gender Information Value Date Recorded Sex Assigned at Not on file 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
--- OUTSIDE RECORDS SUMMARY | 2024-05-25 05:36 | XMS_ITS | Encounter Summary ---
Author Organization [facility] Address [address] [place] [address] Care Team Providers Care Cross Country Coach Name Role Phone Feliberto Jacome MD Primary Care Provider +1- [phone] Encounter Details Date Type Department Care Team (Latest Contact Info) Description 06/04/2001 Outpatient Historical HIS [facility] Feliberto Jacome MD [address] [place] [address] DIABETES UNCOMPL ADULT-TYPE II (CMS/HCC) (Primary Dx); HYPERLIPIDEMIA NEC/NOS; HYPERTENSION NOS Social History Tobacco Use Types Packs/Day Years Used Date Smoking Tobacco: Never Assessed Sex and Gender Information Value Date Recorded Sex Assigned at Not on file 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
--- OUTSIDE RECORDS SUMMARY | 2024-05-25 05:36 | XMS_ITS | Encounter Summary ---
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
--- OUTSIDE RECORDS SUMMARY | 2024-05-25 05:36 | XMS_ITS | Encounter Summary ---
Author Organization [facility] Address [address] [place] [address] Care Team Providers Care Power Shovel Operator Helper Name Role Phone Feliberto Jacome MD Primary Care Provider +1- [phone] Encounter Details Date Type Department Care Team (Latest Contact Info) Description 06/25/2000 Outpatient Historical HIS [facility] Donnie Vieyra NO ADDRESS ON FILE Unspecified essential hypertension (Primary Dx); Other malaise and fatigue; Dizziness and giddiness; Family history of diabetes mellitus Social History Tobacco Use Types Packs/Day Years Used Date Smoking Tobacco: Never Assessed Sex and Gender Information Value Date Recorded Sex Assigned at Not on file 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 FERRY HAND Gender Identity Not on file Sexual Orientation Not on file documented as of this encounter Plan of Treatment Not on file documented as of this encounter Visit Diagnoses Diagnosis Unspecified essential hypertension- Primary Other malaise and fatigue Dizziness and giddiness Family history of diabetes mellitus documented in this encounter Care Teams Power Shovel Operator Helper Relationship Specialty Start Date End Date Feliberto Jacome MD PCP - General 11/08/02 documented as of this encounter
--- OUTSIDE RECORDS SUMMARY | 2024-05-25 05:36 | XMS_ITS | Encounter Summary ---
Author Organization [facility] Address [address] [place] [address] Care Team Providers Care Board Certified Behavioral Analyst Name Role Phone Feliberto Jacome MD Primary Care Provider +1- [phone] Encounter Details Date Type Department Care Team (Latest Contact Info) Description 06/30/2000 Outpatient Historical HIS [facility] Donnie Vieyra NO ADDRESS ON FILE Type II or unspecified type diabetes mellitus without mention of complication, not stated as uncontrolled (CMS/HCC) (Primary Dx); Other and unspecified hyperlipidemia; Benign hypertension Social History Tobacco Use Types Packs/Day Years Used Date Smoking Tobacco: Never Assessed Sex and Gender Information Value Date Recorded Sex Assigned at Not on file 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
--- OUTSIDE RECORDS SUMMARY | 2024-05-25 05:36 | XMS_ITS | Encounter Summary ---
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); Disorder of bone and cartilage, unspecified; Follow-up examination following surgery Social History Tobacco Use Types Packs/Day Years Used Date Smoking Tobacco: Never Assessed Sex and Gender Information Value Date Recorded Sex Assigned at Not on file 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
--- OUTSIDE RECORDS SUMMARY | 2024-05-25 05:36 | XMS_ITS | Encounter Summary ---
Author Organization [facility] Address [address] [place] [address] Care Team Providers Care Aviation Project Engineer Name Role Phone Feliberto Jacome MD Primary Care Provider [phone] Encounter Details Date Type Department Care Team (Latest Contact Info) Description 06/13/1998 Outpatient Historical [facility] Jose Enrique Valdez MD NO ADDRESS ON FILE Disorder of bone and cartilage, unspecified (Primary Dx); Backache, unspecified Social History Tobacco Use Types Packs/Day Years Used Date Smoking Tobacco: Never Assessed Sex and Gender Information Value Date Recorded Sex Assigned at Not on file 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
--- OUTSIDE RECORDS SUMMARY | 2024-05-25 05:36 | XMS_ITS | Encounter Summary ---
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
--- OUTSIDE RECORDS SUMMARY | 2024-05-25 05:36 | XMS_ITS | Encounter Summary ---
Author Organization [facility] Address [address] [place] [address] Care Team Providers Care Anti Air Warfare Operations Officer Name Role Phone Feliberto Jacome MD Primary Care Provider Encounter Details Date Type Department Care Team (Late st Contact Info) Description 11/08/2002 Outpatient Historical [facility] [address] [place] [id number] David Daley Jr., MD [address] [facility], [id number] DIABETES UNCOMPL ADULT-UNCONTRLLED (Primary Dx) Social History Tobacco Use Types Packs/Day Years Used Date Smoking Tobacco: Never Assessed Sex and Gender Information Value Date Recorded Sex Assigned at Not on file 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
--- OUTSIDE RECORDS SUMMARY | 2024-05-25 05:36 | XMS_ITS | Clinical Summary ---
Author Organization [facility] Address [address] [place] [address] Care Team Providers Care Acquisition Associate Name Role Phone Feliberto Jacome MD Primary Care Provider Allergies Active Allergy Reactions Criticality Noted Date Comments Chicken Derived Hives High 01/06/2014 Medications dipyridamole-as pirin SR 12 hour (AGGRENOX) 200-25 mg capsule Take 1 Cap by mouth 2 times daily. Active NIFEdipine (ADALAT CC) 60 mg Extended Release tablet Take 60 mg by mouth daily. Bid Active lisinopril (PRINIVIL) 20 mg tablet Take 20 mg by mouth 2 times daily. Active metoprolol tartrate (LOPRESSOR) 50 mg tablet Take 50 mg by mouth 2 times daily. Active allopurinol (ZYLOPRIM) 100 mg tablet Take 100 mg by mouth daily. Active levothyroxine 25 mcg Oral tablet Take 25 mcg by mouth daily manual qa tester. Active furosemide (LASIX) 40 mg tablet Take 40 mg by mouth daily. Active gemfibrozil (LOPID) 600 mg tabletIndicatio ns:Hyperlipidem ia LDL goal < 100 Take 1 Tab by mouth 2 times daily. 60 Tab 3 4 Active insulin aspart (NOVOLOG) 100 unit/mL vial 6 units + correction QACTID. 10 mL 11 6 Active pravastatin (PRAVACHOL) 40 mg tabletIndicatio ns:Hyperlipidem ia with target LDL less than 100 Take 1 Tablet (40 mg) by mouth Daily LATE. 30 Tablet 3 6 Active ergocalciferol (VITAMIN D2) 50,000 unit capsuleIndicati ons:Hypovitamin osis D Take 1 Capsule (50,000 Units) by mouth every 7 days For 12 weeks, followed by 1 cap monthly. 4 Capsule 4 6 Active insulin aspart (NovoLOG Flexpen) 100 unit/mL pen syringe 6 units QACTID SSI. 30 mL 3 6 Active insulin detemir (LEVEMIR FLEXTOUCH) 100 unit/mL pen syringe Inject 44 units am and 50 units pm. 30 mL 3 6 Active Insulin Hodge, Disposable, (BD INSULIN PEN NEEDLE UF MINI) 31 gauge x 3/16 Needle Use to inject insulin 5 times daily. 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 03/25/2016 Type II or unspecified type diabetes mellitus without mention of complication, uncontrolled 01/06/2014 CVA (cerebral infarction) 01/06/2014 Hypertension 01/06/2014 Hyperlipidemia with target LDL less than 100 Obesity (BMI 30-39.9) 01/06/2014 Immunizations Immunization Administration Dates Next Due (PNEUMOVAX 23)(50 YRS UP) PN EUMOCOCCAL POLYSACCHARIDE (PPV23) 0.5 ML, IM 07/31/2007 Dt Dtp Dtap Vaccine 05/22/1998 Social History Tobacco Use Types Packs/Day Years Used Date Smoking Tobacco: Never Assessed Sex and Gender Information Value Date Recorded Sex Assigned at Not on file 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 Gender Identity Not on file Sexual Orientation Not on file Last Filed Vital Signs Vital Sign Reading Time Taken Comments Blood Pressure 142/87 09/05/2017 11:41 AM CDT Pulse 68 09/05/2017 11:41 AM CDT Temperature - - Respiratory Rate - - Oxygen Saturation - - Inhaled Oxygen Concentration - - Weight 107.4 kg (236 lb 12.8 oz) 2017 11:41 AM CDT Height 172.7 cm (5' 8 ) 09/05/2017 11:4 1 AM CDT Body Mass Index 36.01 09/05/2017 11:41 AM CDT Plan of Treatment Health Maintenance Due Date Last Done Comments COLORECTAL SCREENING 1995 Colorectal Cancer Screening 1995 FIT-DNA Q 3 years 1995 FIT/FOBT Q 1 year 1995 Flex Sig/CT Colonography Q 5 years 1995 ZOSTER VACCINE (1 of 2) 2000 DTAP/TDAP/TD VACCINES (2 - Tdap) 05/22/2008 05/22/18 99 PNEUMOCOCCAL VACCINE 65+ YEA RS (2 of 2 - PCV) 07/30/2008 07/31/2007 RSV VACCINE (60+ or ) (1 - Risk 60-74 years 1-dose series) 2010 DIABETES ANNUAL FOOT EXAM 09/05/2018 09/05/2017 DIABETES MICROALBUMIN ANNUAL SCREEN 09/05/2018 09/05/2017, 10/27/2015, 10/28/2014, Additional history exists DIABETES ANNUAL RETINAL EXAM 11/25/201810/2017, 11/25/2017, 11/25/2017, Additional history exists DIABETES HBA1C Q 6 MONTHS 08/19/20192018, 08/11/2018, 06/02/2018, Additional history exists LDL CHOLESTEROL ANNUAL 02/18/2020 9, 12/01/2017, 09/05/2017, Additional history exists INFLUENZA VACCINE (#1) 2023 Procedures Procedure Name Priority Date/Time Associated Diagnosis Comments LIPID PANEL Routine 02/17/2019 DIABETES EYE EXAM Routine 11/25/2017 MICROALBUMIN/CREATI NINE RATIO, RANDOM UR Routine 09/05/2017 8:14 AM CDT Type 2 diabetes mellitus with hyperosmolar coma HEMOGLOBIN A1C Routine 09/05/2017 8:14 AM CDT Type 2 diabetes mellitus with hyperosmolar coma from Last 3 Months or Most Recently Relevant to Health Maintenance Results * LIPID PANEL (02/17/2019) ABSTRACTED CHOLESTEROL 165 ABSTRACTED TRIGLYCERIDE 86 ABSTRACTED HDL 39 ABSTRACTED LDL CALCULATED 109 CHOLESTEROL TRIGLYCERIDE HDL LDL CALCULATED Blood 02/17/2019 us Abstract Spg Provider CHEMISTRY ORDERABLES Final Result * DIABETES EYE EXAM (11/25/2017) us Abstract Spg Provider HEALTH MAINTENANCE Final R esult * (ABNORMAL) MICROALBUMIN/CREATININE RATIO, RANDOM UR (09/05/2017 8:14 AM CDT) MICROALBUMIN, URINE 57.0 No Reference Range mg/dL 09/05/2017 9:24 AM CDT [facility] CREATININE, URINE 134.9 40.0 - 278.0 mg/dL 09/05/2017 9:24 AM CDT [facility] Comment: Reference Range varies with fluid intake and diet. MICROALBUMIN/ CREAT RATIO, UR 422.5(H) <17.0 mg/g 09/05/2017 9:24 AM CDT [facility] Urine URINE SPECIMEN OBTAINED BY CLEAN CATCH PROCEDURE / Unknown Collection / Unknown 09/05/2017 8:14 AM CDT 09/05/2017 8:35 AM CDT Narrative [facility] - 09/05/2017 9:24 AM CDT Condition ? Microalbumin/Creat ratio Normal Males ? <17 Normal Females ? <25 Microalbuminuria Males ?17-299 Microalbuminuria Females ?25-299 Overt proteinuria ? >=300 us Heydi Mckinney MD URINE ORDERABLES Final Result [facility] CLIA# [id number] [facility] [place] [address] * (ABNORMAL) HEMOGLOBIN A1C (09/05/2017 8:14 AM CDT) HEMOGLOBIN A1C 6.7(H) 4.0 - 6.0 % 09/05/2017 8:46 AM CDT [facility] EST. AVG GLUCOSE, A1C 146 mg/dL 09/05/2017 8:46 AM CDT [facility] Blood Venipuncture / Unknown 09/05/2017 8:14 AM CDT 09/05/2017 8:22 AM CDT Narrative [facility] - 09/05/2017 8:46 AM CDT HGB A1C INTERPRETATION NORMAL: ? <5.7% PRE-DIABETES: 5.7 - 6.4% DIABETES: ? 6.5% OR GREATER Falsely low A1C measurements can occur when: 1. Anemia and/or hemolytic anemia is present. 2. Hemoglobin variants present. 3. Renal failure. 4. Transfusion of blood product in the last 120 days. ?? We recommend ordering a fructosamine test(LQQ9921) to more accurately assess glycemic status if any of the above conditions are present. us Heydi Mckinney MD CHEMISTRY ORDERABLES Final Resul t [facility] CLIA# [id number] [address] [place] [address] from Last 3 Months or Most Recently Relevant to Health Maintenance Insurance MEDICARE PART A AND B [facility] Care Teams Acquisition Associate Relationship Specialty Start Date End Date Feliberto Jacome MD PCP - General 11/08/02
== END 2024-05-20 14:30 | disposition home or self-care (01) | DRG 280 ==
LOC: ER 15:47 → CSU 16:32 → MEDSURG 05-19 13:39
PROVIDERS: Hospitalist; Admitting Provider Family Medicine; Emergency Provider Student in an Organized Health Care Education/Training Program; PCP Family Medicine; Visit Provider Family Medicine
DX: I13.2 Hypertensive heart and chronic kidney disease with heart failure and with stage 5 chronic kidney disease, or end stage renal disease (principal); N18.6 End stage renal disease; I21.4 Non-ST elevation (NSTEMI) myocardial infarction; I48.92 Unspecified atrial flutter; E13.22 Other specified diabetes mellitus with diabetic chronic kidney disease; I50.30 Unspecified diastolic (congestive) heart failure; Z99.2 Dependence on renal dialysis; E13.42 Other specified diabetes mellitus with diabetic polyneuropathy; I48.91 Unspecified atrial fibrillation; I25.10 Atherosclerotic heart disease of native coronary artery without angina pectoris; Z95.5 Presence of coronary angioplasty implant and graft; I95.1 Orthostatic hypotension; Z79.02 Long term (current) use of antithrombotics/antiplatelets; Z79.82 Long term (current) use of aspirin; Z79.4 Long term (current) use of insulin; E03.9 Hypothyroidism, unspecified; I25.2 Old myocardial infarction; Z86.16 Personal history of COVID-19; E87.70 Fluid overload, unspecified; E87.5 Hyperkalemia; R00.1 Bradycardia, unspecified; G47.33 Obstructive sleep apnea (adult) (pediatric); G89.29 Other chronic pain; M54.9 Dorsalgia, unspecified; I65.23 Occlusion and stenosis of bilateral carotid arteries; E78.5 Hyperlipidemia, unspecified; Z86.73 Personal history of transient ischemic attack (TIA), and cerebral infarction without residual deficits; D63.1 Anemia in chronic kidney disease
CPT/HCPCS: 36415; 36416; 36600; 71045; 71250; 74176; 80053; 82009; 82607; 82746; 82803; 82962; 83605; 83735; 84100; 84145; 84484; 85025; 85651; 86140; 86706; 87040; 87340; 87637; 90935; 93005; 94664; 96372; 96374; 97116; 97162; 99285; J0696; J1644; J1815; J2405; P9047; Q3014

== ENCOUNTER 2024-06-07 13:26 | Outpatient (CLI) | payer MEDICARE, SELFPAY ==
[2024-06-07] MEDS: iohexol 350 mg/mL 500 mL Btl (per mL) IV (14:25)
--- NOTE | 2024-06-07 14:30 | CT_ITS ---
WS: [id number] CT ANGIOGRAM HEAD AND NECK. HISTORY: Bilateral carotid stenosis TECHNIQUE: CT angiogram is performed of the carotid and intracranial arteries. During arterial injection imaging is obtained from the skull base to the aortic arch in 1.25 mm imaging. Coronal and sagittal reformats are submitted, MIP imaging also reviewed. Additional multiplanar reformats of the carotid arteries are submitted. NASCET criteria utilized. All CT scans at [facility] use at least one of these dose optimization techniques: automated exposure control; mA and/or kV adjustment per patient size (includes targeted exams where dose is matched to clinical indication); or iterative reconstruction. CONTRAST: Omnipaque 350; 100 mL IV. DLP: 1258.04 mGy.cm COMPARISON: 10/09/2022, carotid ultrasound 04/16/[address] head is first performed. Moderate atrophy with moderate bilateral symmetric decreased attenuation in the white matter from small vessel disease. Prior lacunar infarct in the RIGHT caudate head. Prior lacunar infarct LEFT thalamus. Right carotid: Common carotid artery: Tortuous innominate artery with plaque but no stenosis. Tortuous RIGHT common carotid artery with increasing plaque towards the bifurcation. Mild narrowing involving the distal cervical carotid artery with calcified plaque and noncalcified plaque. Internal carotid artery: Mild to moderate narrowing proximal RIGHT ICA with calcified plaque and intimal thickening. Stenosis estimated at 53% which appears appropriate. External carotid artery: Patent. Left carotid: Common carotid artery: Arises normally from the aortic arch. No significant stenosis. Internal carotid artery: Calcified plaque at the bifurcation. Increasing plaque in stenosis now estimated at 80%. External carotid artery: Patent. Right vertebral artery: Small amount of plaque at the origin. Increasing circumferential plaque through the foramen magnum. Left vertebral artery: Patent. Increasing plaque through the foramen magnum but no occlusion. Subclavian arteries: No stenosis or abnormality identified. Upper thorax: Emphysema. Mild calcified plaque in the aortic arch. Thyroid gland: Normal. Osseous structures: Moderate cervical spondylosis. No fractures. Skull base: Moderate plaque in the carotid cavernous sinuses. 50 to 60% stenosis of the cavernous carotid arteries but no occlusion. Moderate plaque in the intracranial vertebral arteries with less than 50% stenosis. Basilar artery is intact. Posterior cerebral arteries and the posterior communicating arteries are normal. Moderate intracranial plaque in the carotid cavernous arteries. Stenosis estimated at 50 to 60%. Middle cerebral and anterior cerebral arteries are both patent. No aneurysms or occlusions. Normal dural venous sinuses. CT/CT angio headneck* [id number] IMPRESSION: 1. LEFT cervical ICA stenosis 80% with moderate increase in stenosis since the prior study of 10/09/2022. 2. RIGHT ICA stenosis 53% with minimal increase in stenosis since the prior st udy. 3. Moderate bilateral intracranial carotid atherosclerosis in the cavernous si nuses. 4. No cerebral aneurysms or occlusions.
== END 2024-06-07 13:27 | disposition home or self-care (01) ==
PROVIDERS: PCP Family Medicine; Visit Provider Internal Medicine Cardiovascular Disease
DX: I65.23 Occlusion and stenosis of bilateral carotid arteries (principal); R93.89 Abnormal findings on diagnostic imaging of other specified body structures; I67.2 Cerebral atherosclerosis; J43.9 Emphysema, unspecified; I70.0 Atherosclerosis of aorta; M47.892 Other spondylosis, cervical region; R93.0 Abnormal findings on diagnostic imaging of skull and head, not elsewhere classified
CPT/HCPCS: 70496; 70498

== ENCOUNTER 2024-08-06 14:21 | Outpatient (CLI) | payer MEDICARE, SELFPAY ==
--- NOTE | 2024-08-06 14:38 | XR_ITS ---
WS: [id number] Bone survey, 08/06/2024 Clinical Data: abnormal alkaline phosphates Comparison: None. Findings: Lateral skull and cervical spine: No metastatic lesions are seen. There is osteoarthritis and degenerative disc narrowing of the cervical spine. AP and lateral views of the thoracolumbar spine: No metastatic lesions are seen. There is osteoarthritis of the thoracic and upper lumbar vertebral bodies. There is a posterior thoracolumbar fusion. Bilateral rib detail: There are cystic changes and cortical thickening of the right glenoid fossa and coracoid process. These changes have the appearance of Paget's disease rather than metastatic lesions. There is an old right seventh rib fracture. The left ribs are intact. AP and lateral views of both arms: No metastatic lesions are seen. AP and lateral views of the lumbar spine: No metastatic lesions are seen. There is a thoracolumbar posterior fusion. The L2 vertebral body shows a superior cortical fracture. There are degenerative disc narrowings at multiple lumbar levels. AP pelvis and AP and lateral views of both thighs: No metastatic lesions are seen. There are vascular calcifications. XR/XR bone survey* [id number] Impression: 1. Negative for metastatic bony lesions. 2. Cystic change with cortical thickening of the right glenoid fossa and coraco id process more consistent with Paget's disease than metastatic disease.
== END 2024-08-06 14:22 | disposition home or self-care (01) ==
PROVIDERS: PCP Family Medicine; Visit Provider Family Medicine
DX: R74.8 Abnormal levels of other serum enzymes (principal); R93.89 Abnormal findings on diagnostic imaging of other specified body structures; M47.892 Other spondylosis, cervical region; M50.30 Other cervical disc degeneration, unspecified cervical region; M47.894 Other spondylosis, thoracic region; M47.896 Other spondylosis, lumbar region; Z98.1 Arthrodesis status; Z87.81 Personal history of (healed) traumatic fracture; M51.369 Other intervertebral disc degeneration, lumbar region without mention of lumbar back pain or lower extremity pain; I70.90 Unspecified atherosclerosis
CPT/HCPCS: 77075

== ENCOUNTER 2024-09-17 07:22 | Outpatient (CLI) | payer MEDICARE, SELFPAY ==
--- NOTE | 2024-09-17 07:33 | NMR_ITS ---
PROCEDURE INFORMATION: Exam: NM Bone and/or Joint, Limited Exam date and time: 09/17/2024 9:24 AM Age: 74 years old Clinical indication: Condition or disease; Pagets' disease; Prior surgery; Surgery date: 6+ months; Surgery type: Back surgery, paget's disease, back pain, back surgery in 2019 - 2 rods placed and 24 screws, 6 vertebrae fused, ; additional info: Pagets disease. No history of recent trauma or surgery is otherwise provided. TECHNIQUE: Imaging protocol: Nuclear bone scan was obtained. 2image(s) are provided. Views: Frontal and posterior Radiopharmaceutical: 26.1 mCi Tc-99m HDP (Oxidronate), IV. Time of imaging post radiopharmaceutical administration: Static images are provided including focused images. COMPARISON: 1. CR XR bone survey* [id number] 08/06/2024 2:[address] [place] [id number] 05/16/2024 12:[address] angio headneck* [id number] 06/07/2024 2:04 PM. No previous nuclear bone scan or PET-CT is currently available to evaluate for interval change or stability. 4. CT abdomen pelvis wo con [id number] 02/18/2023 7:[address] chest [place] con [id number] 01/26/2020 12:39 PM FINDINGS: Skeleton: No diffuse osteoblastic type activity is currently appreciated along with no significant photopenia currently appreciated. No soft tissue ectopic tracer type activity is currently appreciated. There is some renal level tracer activity demonstrated overall. There are however some multifocal areas of significant tracer intensity activity demonstrated although corresponding to the previous descriptions and clinical history provided as could be seen with processes including Paget's disease including of the right scapula, suspected L2 level as well as the right hip. There is however some localized significant tracer activity demonstrated of the right hindfoot although no previous comparison images are currently available at this location. There also appears to be some slight uptake which may be degenerative in nature of the L4-L5 level as well as mid to lower thoracic. No other significant interval changes are appreciated. NM/NM bone scan whole body* [id number] IMPRESSION: 1. There are multifocal areas of intense tracer activity demonstrated corresponding to the clinical history provided and locations including of the right scapula, L2 level, right hip. Given the multifocal location, consider comparison to any previous older bone scan if clinically available versus continued clinical follow-up as some element of degeneration could present with multifocal, multi osseous Paget's related changes. Also consider continued clinical laboratory values evaluation to evaluate for marker changes. 2. There is some intense activity demonstrated about the right hindfoot with no previous comparison study currently available at this location for comparison evaluation. Therefore, consider focal imaging.
== END 2024-09-17 07:23 | disposition home or self-care (01) ==
PROVIDERS: PCP Family Medicine; Visit Provider Family Medicine
DX: M88.8 Osteitis deformans of other bones (principal); R93.89 Abnormal findings on diagnostic imaging of other specified body structures
CPT/HCPCS: 78306; A9561

== ENCOUNTER 2024-10-27 09:03 | Oncology outpatient (recurring) (ONCR) | payer MEDICARE, SELFPAY ==
[2024-10-27 10:20] LABS: Hematocrit 34.0 % (37-53); Hemoglobin 10.70 g/dL (11.27-16.99); Mean Corpuscular HGB Conc 31.5 g/dL (30-55); Mean Corpuscular Hemoglobin 29.2 pg (27-33); Mean Corpuscular Volume 92.9 fl (82-101); Nucleated Red Blood Cells % 0 %; Platelet Count 204 10^3/cmm (157-399); Red Blood Count 3.66 10^6/uL (3.85-5.65); White Blood Count 10.26 10^3/uL (3.29-11.43)
[2024-10-27 10:40] LABS: Alanine Aminotransferase 13 U/L (0-41); Albumin Level 4.0 g/dL (3.5-5.2); Alkaline Phosphatase 354 U/L (40-130); Anion Gap 18.3 (5-19); Aspartate Amino Transferase 11 U/L (0-40); Blood Urea Nitrogen 26 mg/dL (8-23); Calcium 9.7 mg/dL (8.5-10.5); Carbon Dioxide 28 mmol/L (22-29); Chloride 95 mmol/L (98-107); Creatinine Clr Calc Pharmacy 14.9455; Globulin 3.3 g/dL (1.3-4.6); Glucose 319 mg/dL (65-115); Iron 56 ug/dL (59-158); Osmolality Calculated 299 mOsm/kg (285-295); Potassium 5.3 mmol/L (3.5-5.1); Sodium 136 mmol/L (136-145); Total Iron Binding Capacity 227 mcg/dl; Total Protein 7.3 g/dL (6.6-8.7); Unsaturated Iron Binding 171 ug/dL (112-347)
[2024-10-27 10:53] LABS: Ferritin 2272 ng/mL (30-400)
[2024-10-27 10:56] LABS: Vitamin B12 756 pg/mL (232-1245)
[2024-10-28 07:40] LABS: PROTEIN, TOTAL 6.9 g/dL (6.1-8.1)
[2024-10-28 14:39] LABS: KAPPA LIGHT CHAIN, FREE, SERUM 114.1 mg/L (3.3-19.4); KAPPA/LAMBDA LIGHT CHAINS FREE 1.48 (0.26-1.65); LAMBDA LIGHT CHAIN, FREE, SERU 77.0 mg/L (5.7-26.3)
[2024-10-28 20:50] LABS: ALPHA 1 GLOBULIN 0.4 g/dL (0.2-0.3); ALPHA 2 GLOBULIN 0.8 g/dL (0.5-0.9); BETA 1 GLOBULIN 0.4 g/dL (0.4-0.6); BETA 2 GLOBULIN 0.6 g/dL (0.2-0.5)
== END 2024-11-18 23:59 | disposition home or self-care (01) ==
PROVIDERS: Internal Medicine; PCP Family Medicine; Visit Provider Family Medicine
DX: M88.89 Osteitis deformans of multiple sites (principal); N18.6 End stage renal disease; Z99.2 Dependence on renal dialysis; I48.91 Unspecified atrial fibrillation; E11.9 Type 2 diabetes mellitus without complications; I25.10 Atherosclerotic heart disease of native coronary artery without angina pectoris; Z95.9 Presence of cardiac and vascular implant and graft, unspecified; I10 Essential (primary) hypertension
CPT/HCPCS: 36415; 80053; 82607; 82728; 82746; 82784; 83540; 83550; 83615; 83883; 84155; 84165; 85025; 86334; 99204

== ENCOUNTER → 2024-11-05 10:52 | Outpatient (BNVA) | payer MEDICARE, SELFPAY | PROVIDERS: PCP Family Medicine; Visit Provider Internal Medicine Cardiovascular Disease | DX: I48.91 Unspecified atrial fibrillation (principal); H18.9 Unspecified disorder of cornea; E78.5 Hyperlipidemia, unspecified; I35.0 Nonrheumatic aortic (valve) stenosis; I25.10 Atherosclerotic heart disease of native coronary artery without angina pectoris; I13.2 Hypertensive heart and chronic kidney disease with heart failure and with stage 5 chronic kidney disease, or end stage renal disease; E13.22 Other specified diabetes mellitus with diabetic chronic kidney disease; N18.6 End stage renal disease; I50.9 Heart failure, unspecified; Z99.2 Dependence on renal dialysis; Z79.4 Long term (current) use of insulin | CPT/HCPCS: 99214 ==

== ENCOUNTER → 2024-12-06 08:32 | Outpatient (BNVA) | payer MEDICARE, SELFPAY | PROVIDERS: PCP Family Medicine; Visit Provider Internal Medicine | DX: N18.6 End stage renal disease (principal); Z99.2 Dependence on renal dialysis; M88.9 Osteitis deformans of unspecified bone | CPT/HCPCS: 99204 ==

== ENCOUNTER → 2025-01-24 10:37 | Outpatient (BNVA) | payer MEDICARE, SELFPAY | PROVIDERS: PCP Family Medicine; Visit Provider Podiatrist Foot & Ankle Surgery | DX: E11.69 Type 2 diabetes mellitus with other specified complication (principal); L60.3 Nail dystrophy; L60.8 Other nail disorders; N18.5 Chronic kidney disease, stage 5; I73.9 Peripheral vascular disease, unspecified; Z79.4 Long term (current) use of insulin | CPT/HCPCS: 11721 ==

== ENCOUNTER 2025-01-27 14:56 | Emergency (ER) | payer MEDICARE, SELFPAY ==
--- NOTE | 2025-01-27 14:59 | ECG_ITS ---
[email or web address] Test Date: 2025-01-27 Pat Name: Eliazar Hogan Department: Room: Gender: Male Forcer Maker: : [id number] Requested By: Elyssa Matos Order Number: [id number] Flor MD: GUY LEARY Measurements Intervals Placida Rate: 82 P: 0 CA: 0 QRS: -3 QRSD: 117 T: 29 QT: 349 QTc: 408 Interpretive Statements ATRIAL FIBRILLATION MODERATE INTRAVENTRICULAR CONDUCTION DELAY [105+ ms QRS DURATION, 80+ ms Q/S IN V1/V2, NO Q AND 60+ ms R IN I/aVL/V5/V6] NONSPECIFIC T-WAVE ABNORMALITY Compared to ECG 05/17/2024 11:53:43 Intraventricular conduction delay now present T-wave abnormality now present Electronically Signed On 01-27-2025 16:51:27 CDT by GUY LEARY [email or web address]
[2025-01-27 15:02] VITALS: BP 190/107; PULSE 87; RESP 16; TEMP 36.7; O2SAT 96; BMI 33.6
--- NOTE | 2025-01-27 15:03 | W.ED.CHESTPA ---
HPI - Chest Pain General: Chief Complaint: Chest Pain Stated Complaint: chest pain History of Present Illness: 74-year-old male with a history of end-stage renal disease on dialysis, atrial fibrillation, obesity, type 2 diabetes, coronary artery disease, stroke, hyperlipidemia, carotid stenosis, hypertension and obstructive sleep apnea who presents to the emergency room by ambulance from dialysis with sharp chest pains in his left chest. He took a couple of his nitros and they did not make any difference. However chest pain has now resolved. No cough. No fevers. No altered mental status. No abdominal pain. No nausea or vomiting. Related Data Home Medications ?Medication ?Instructions ?Recorded ?Confirmed acetaminophen 500 mg tablet 1,000 mg PO Q4H PRN Pain 05/05/19 01/27/25 (Tylenol Extra Strength) aspirin 81 mg tablet,delayed 81 mg PO QAM 09/01/20 01/27/25 release clopidogrel 75 mg tablet 75 mg PO BEDTIME 09/01/20 01/27/25 levothyroxine 25 mcg tablet 25 mcg PO QAM 11/09/20 01/27/25 cetirizine 10 mg tablet (Zyrtec) 10 mg PO DAILY 11/14/20 01/27/25 nitroglycerin 0.4 mg sublingual 0.4 mg sublingual Q5M PRN Chest 09/29/21 01/27/25 tablet (Nitrostat) Pain sevelamer carbonate 800 mg tablet 1,600 mg PO BID 02/13/22 01/27/25 docusate sodium 100 mg capsule 100 mg PO BEDTIME 02/28/23 01/27/25 (Colace) folic acid 400 mcg tablet 0.4 mg PO DAILY 02/28/23 01/27/25 allopurinol 300 mg tablet 300 mg PO DAILY 03/17/23 01/27/25 escitalopram oxalate 20 mg tablet 20 mg PO QAM 03/17/23 01/27/25 (Lexapro) cholecalciferol (vitamin D3) 50 50 mcg PO BEDTIME 03/26/24 01/27/25 mcg (2,000 unit) capsule insulin glargine 100 unit/mL (3 18 unit SUBCUT DAILY 12/06/24 01/27/25 mL) subcutaneous pen (Lantus Solostar U-100 Insulin) amlodipine 5 mg tablet 5 mg PO DAILY 01/27/25 01/27/25 carvedilol 12.5 mg tablet 12.5 mg PO BID 01/27/25 01/27/25 rosuvastatin 20 mg tablet 20 mg PO BEDTIME 01/27/25 01/27/25 Previous Rx's ?Medication ?Instructions ?Recorded Diabetic Shoes #1 ea 09/13/20 Diabetic Shoes #1 ea 10/25/20 BIPAP and supplies #1 ea 04/09/21 pantoprazole 40 mg tablet,delayed 40 mg PO BID #60 tabs 05/11/24 release compress.stocking,knee,reg,lrg #2 ea 05/20/24 isosorbide mononitrate 60 mg 30 mg (1/2 x 60 mg) PO DAILY #60 05/20/24 tablet,extended release 24 hr tabs Allergies Allergy/AdvReac Type Severity Reaction Status Date / Time chicken derived Allergy Unknown ADR-Nausea Verified 01/24/25 10:52 morphine AdvReac Mild dizzy & Verified 01/24/25 10:52 nauseous Review of Systems Narrative: Constitutional symptoms: Negative except as documented in HPI. Skin symptoms: Negative except as documented in HPI. Eye symptoms: Negative except as documented in HPI. ENMT symptoms: Negative except as documented in HPI. Respiratory symptoms: Negative except as documented in HPI. Cardiovascular symptoms: Negative except as documented in HPI. Gastrointestinal symptoms: Negative except as documented in HPI. Genitourinary symptoms: Negative except as documented in HPI. Musculoskeletal symptoms: Negative except as documented in HPI. Neurologic symptoms: Negative except as documented in HPI. Psychiatric symptoms: Negative except as documented in HPI. Endocrine symptoms: Negative except as documented in HPI. PFSH ED PFSH: Medical History (Updated 01/27/25 @ 18:48 by Elyssa Willson MD) Atrial fibrillation with slow ventricular response Hypothyroidism Hemodialysis access site with arteriovenous graft Paget's disease Chronic kidney disease Chest pain NSTEMI (non-ST elevated myocardial infarction) Cardiac enzymes elevated Diabetes mellitus with diabetic polyneuropathy ESRD (end stage renal disease) CAD (coronary artery disease) Chronic kidney disease (CKD) stage G5/A1, glomerular filtration rate (GFR) less than or equal to 15 mL/min/1.73 square meter and albuminuria creatinine ratio less than 30 mg/g History of 2019 novel coronavirus disease (COVID-19) Acute kidney injury superimposed on CKD Congestive 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 Anemia CVA (cerebral vascular accident) Dyslipidemia Carotid stenosis, bilateral Essential hypertension Diabetes 1.5, managed as type 2 Chronic back pain KAITLYNN (obstructive sleep apnea) Surgical History History of esophagogastroduodenoscopy (EGD) 10 yrs ago Hx of cholecystectomy S/P hemodialysis catheter insertion S/P angioplasty with stent Previous back surgery S/P cataract extraction Family History Mother CAD (coronary artery disease) Stroke Sister Hypertension Social History Smoking and tobacco/nicotine status: former use of tobacco/nicotine Alcohol intake: never Substance/Drug Use: never Household members: spouse Marital status: service: Yes branch: [employer] Current occupational status: employed Current occupation: [employer] Current gender identity: Male Physical Exam Narrative: EXAM NARRATIVE: General: Alert, no acute distress. Skin: Warm, dry. Head: Normocephalic, atraumatic. Neck: Supple, trachea midline. Eye: Extraocular movements are intact. Ears, nose, mouth and throat: mucosa moist. Cardiovascular: Regular, Normal peripheral perfusion. Respiratory: Lungs are clear to auscultation, respirations are non-labored, breath sounds are equal, Symmetrical chest wall expansion. Gastrointestinal: Soft, Nontender, Non distended Musculoskeletal: Normal ROM, no deformity. Neurological: Alert and oriented, No focal neurological deficit observed. Psychiatric: Cooperative, appropriate mood & affect. Course Vital Signs: Vital signs: Vital Signs Temperature 98.1 F 01/27/25 15:02 Pulse Rate 71 01/27/25 18:49 Respiratory Rate 14 01/27/25 18:49 Blood Pressure 168/99 01/27/25 18:49 Pulse Oximetry 93 01/27/25 18:49 Oxygen Delivery Me thod Room Air 01/27/25 16:18 MDM - Chest Pain Medical Decision Making Differential diagnosis for patient with chest pain includes but is not limited to and based on the above HPI, review of systems and physical exam: Pneumonia. unstable angina. angina. Acute coronary syndrome / [place]. Pulmonary embolism. Costochondritis / musculoskeletal. Pleurisy. Pericarditis. Esophageal spasm. Pancreatis. Cholecystitis. Orders placed to evaluate differential diagnosis based on the above differential, HPI and physical exam EKG time 1500. Rate 82.: Atrial fibrillation with controlled rate. Nonspecific ST changes, no ectopy, normal WA & QRS intervals, This was reviewed and interpreted by myself the ER physician at 1505 Repeat EKG: Time 1705. Rate 73. Atrial fibrillation with controlled rate. Nonspecific ST changes, no ectopy, normal WA & QRS intervals, This was reviewed and interpreted by myself the ER physician at 1705. No acute changes from EKG done previously today in the emergency room. Chest x-ray: Vertebral hardware. Cardiomegaly. No acute process. No infiltrate. No pneumothorax. This was reviewed and interpreted by myself the emergency room physician. I also reviewed the radiology report. Lab Review: Laboratory results were reviewed and interpreted by myself the emergency room physician. No leukocytosis. No anemia. BUN and creatinine are 24 and 4.4 which be expected in this dialysis patient. Potassium is high side of normal at 4.7. I reviewed the patient's medical record. 74-year-old male with a history of end-stage renal disease on dialysis, atrial fibrillation, obesity, type 2 diabetes, coronary artery disease, stroke, hyperlipidemia, carotid stenosis, hypertension and obstructive sleep apnea Reexamination: Patient remained stable. No increased work of breathing. No altered mental status. No focal motor deficits. Heart score was a bit elevated because of his history. Had not not been forced to use this heart score I would not have run it because the pain he had was not at all suspicious of cardiac. Assessment and plan: Noncardiac chest pain End-stage renal disease on dialysis - Discharged home - Discussed plan with patient. Answered any questions. - Evaluation and treatment of this problem were appropriate in the emergency setting. Lab Data 01/27/25 15:22 01/27/25 15:22 Radiology Impressions Chest X-Ray 01/27/25 16:14 IMPRESSION: 1. No acute cardiopulmonary process identified radiographically. 2. Subsegmental atelectatic changes versus foci of parenchymal scarring in the bilateral lower lobes. Laboratory Results WBC 12.05 10^3/uL (3.29-11.43) H 01/27/25 15:22 RBC 4.14 10^6/uL (3.85-5.65) 01/27/25 15:22 Hgb 12.00 g/dL (11.27-16.99) 01/27/25 15:22 Hct 38.4 % (37-53) 01/27/25 15:22 MCV 92.8 fl (82-101) 01/27/25 15:22 MCH 29.0 pg (27-33) 01/27/25 15:22 MCHC 31.3 g/dL (30-55) 01/27/25 15:22 RDW 15.2 % (12.1-15.1) H 01/27/25 15:22 Plt Count 219 10^3/cmm (157-399) 01/27/25 15:22 MPV 9.9 fL (7.4-10.4) 01/27/25 15:22 Neut % (Auto) 77.8 % 01/27/25 15:22 Lymph % (Auto) 10.1 % 01/27/25 15:22 [place] % (Auto) 8.0 % 01/27/25 15:22 Eos % (Auto) 2.7 % 01/27/25 15:22 Baso % (Auto) 0.6 % 01/27/25 15:22 Neut # (Auto) 9.38 10^3/uL (1.8-7.7) H 01/27/25 15:22 Lymph # (Auto) 1.2 10^3/uL (0.8-4.8) 01/27/25 15:22 [place] # (Auto) 1.0 10^3/uL (0.2-0.9) H 01/27/25 15:22 Eos # (Auto) 0.3 10^3/uL (0.0-0.8) 01/27/25 15:22 Baso # (Auto) 0.1 10^3/uL (0.0-0.1) 01/27/25 15:22 Nucleated RBC % (auto) 0 % 01/27/25 15: Nucleated RBCs # 0.0 /100WBC 01/27/25 15:22 Sodium 136 mmol/L (136-145) 01/27/25 15:22 Potassium 4.7 mmol/L (3.5-5.1) 01/27/25 15:22 Chloride 95 mmol/L (98-107) L 01/27/25 15:22 Carbon Dioxide 25 mmol/L (22-29) 01/27/25 15:22 Anion Gap 20.7 (5-19) H 01/27/25 15:22 BUN 24 mg/dL (8-23) H 01/27/25 15:22 Creatinine 4.4 mg/dL (0.7-1.2) H 01/27/25 15:22 GFR Calculation Not Reportable 01/27/25 15:22 Glucose 271 mg/dL (65-115) H 01/27/25 15:22 Calculated Osmolality 296 mOsm/kg (285-295) H 01/27/25 15:22 Calcium 9.6 mg/dL (8.5-10.5) 01/27/25 15:22 Total Bilirubin 0.3 mg/dL (0.15-1.2) 01/27/25 15:22 AST 11 U/L (0-40) 01/27/25 15:22 ALT 13 U/L (0-41) 01/27/25 15:22 Alkaline Phosphatase 321 U/L (40-130) H 01/27/25 15:22 Troponin T Baseline 104 ng/L (0-15) H* 01/27/25 15:22 Troponin T 120 Minute 99.19 ng/L (0-15) H 01/27/25 17:19 Delta Troponin T -4.81 ABS# (0-10) L 01/27/25 17:19 Total Protein 7.6 g/dL (6.6-8.7) 01/27/25 15:22 Albumin 4.0 g/dL (3.5-5.2) 01/27/25 15:22 Globulin 3.6 g/dL (1.3-4.6) 01/27/25 15:22 All radiology interpretation(s) finalized by discharge Clincial Decision Support The following clinical decision support tools were used to aid in care of the patient HEART Score -> History: Slightly Suspicous, EKG: Normal, Age: 65 or more yrs, Risk Factors: >/=3 Risk Factors, Troponin: Baseline Trop >45 ng/L. Resulting HEART Score: 6. Discharge Plan Discharge Patient Disposition: Home Clinical Impression: Non-cardiac chest pain, ESRD (end stage renal disease) Condition: Stable Prescriptions: No Action acetaminophen [Tylenol Extra Strength] 500 mg tablet 1,000 mg PO Q4H PRN (Reason: Pain) (DME) Diabetic Shoes See Rx Instructions .ROUTE .MEDSUPPLY Qty: 1 0RF Rx Instructions: As directed [facility] P [employer] [facility] with 3 pairs of inserts (DME) Diabetic Shoes See Rx Instructions .ROUTE .MEDSUPPLY Qty: 1 0RF Rx Instructions: As directed By [facility] with 3 pairs of inserts sevelamer carbonate 800 mg tablet 1,600 mg PO BID allopurinol 300 mg tablet 300 mg PO DAILY escitalopram oxalate [Lexapro] 20 mg tablet 20 mg PO QAM cholecalciferol (vitamin D3) 50 mcg (2,000 unit) capsule 50 mcg PO BEDTIME insulin glargine [Lantus Solostar U-100 Insulin] 100 unit/mL (3 mL) insulin pen 18 unit SUBCUT DAILY (DME) BIPAP and supplies See Rx Instructions .Route .MEDSUPPLY Qty: 1 0RF Rx Instructions: with 2L of oxygen when in use levothyroxine 25 mcg Tablet 25 mcg PO QAM clopidogrel 75 mg tablet 75 mg PO BEDTIME aspirin 81 mg tablet,delayed release (DR/EC) 81 mg PO QAM cetirizine [Zyrtec] 10 mg Tablet 10 mg PO DAILY pantoprazole 40 mg tablet,delayed release (DR/EC) 40 mg PO BID Qty: 60 0RF (DME) compress.stocking,knee,reg,lrg Misc See Rx Instructions .Route Qty: 2 0RF Rx Instructions: As directed isosorbide mononitrate 60 mg Tablet Extended Release 24 Hr 30 mg PO DAILY Qty: 60 0RF nitroglycerin [Nitrostat] 0.4 mg Tablet, Sublingual 0.4 mg SUBLINGUAL Q5M PRN (Reason: Chest Pain) Rx Instructions: do not exceed 3 doses per episode folic acid 400 mcg Tablet 0.4 mg PO DAILY docusate sodium [Colace] 100 mg Capsule 100 mg PO BEDTIME carvedilol 12.5 mg tablet 12.5 mg PO BID amlodipine 5 mg tablet 5 mg PO DAILY rosuvastatin 20 mg Tablet 20 mg PO BEDTIME Discharge Orders: Discharge ED (Routine); Ordered 01/27/25 Ordered By: Elyssa Willson Referrals: Raul Bautista MD [Primary Care Provider, Family Practice] Discharge Diet: Usual diet Discharge Activity: Increase activity as tolerated Patient Instructions: Noncardiac Chest Pain (ED), Opioid Safety, Pain Management, Patient Portal & Octaviano Instructions Activity Restrictions/Additional Instructions: Thank you for choosing [facility] for your healthcare needs today. You have been screened and evaluated and felt safe for discharge. Health conditions do change or evolve sometimes and as such it is important that you follow up with your Primary Doctor to be re checked, 3-5 days is a general good time frame for follow up. You are always welcome to return to the ED for re assessment if your symptoms are worsening or you have new concerns Print Language: Armenian Coding Level of Care Code ED Junior Account Executive for Chg Fwd Heart Score HEART Score Components History: Slightly Suspicous EKG: Normal Age: 65 or more yrs Risk Factors: >/=3 Risk Factors Troponin: Baseline Trop >45 ng/L HEART Score RESULT HEART Score: 6
[2025-01-27 16:03] LABS: Troponin(5th) Baseline 104 ng/L (0-15)
--- NOTE | 2025-01-27 16:14 | XRR_ITS ---
PROCEDURE INFORMATION: Exam: XR Chest Exam date and time: 01/27/2025 4:32 PM Age: 74 years old Clinical indication: Pain; Chest pressure; Additional info: Chest pain TECHNIQUE: Imaging protocol: Radiologic exam of the chest. Views: 1 view. COMPARISON: CR XR chest 1V portable [id number] 05/15/2024 2:30 PM FINDINGS: Lungs: Subsegmental atelectatic changes versus foci of parenchymal scarring in the bilateral lower lobes. No lobar consolidation. Pleural spaces: No pleural effusions or pneumothorax. Heart/Mediastinum: Stable mild cardiomegaly. Vasculature: Atherosclerotic calcifications and tortuosity of the thoracic aorta. Bones/joints: No significant focal osseous lesions. XR/XR chest 1V portable [id number] IMPRESSION: 1. No acute cardiopulmonary process identified radiographically. 2. Subsegmental atelectatic changes versus foci of parenchymal scarring in the bilateral lower lobes.
[2025-01-27 16:18] VITALS: BP 159/97; PULSE 82; RESP 16; O2SAT 94
[2025-01-27 16:23] LABS: Hematocrit 38.4 % (37-53); Hemoglobin 12.00 g/dL (11.27-16.99); Mean Corpuscular HGB Conc 31.3 g/dL (30-55); Mean Corpuscular Hemoglobin 29.0 pg (27-33); Mean Corpuscular Volume 92.8 fl (82-101); Nucleated Red Blood Cells % 0 %; Platelet Count 219 10^3/cmm (157-399); Red Blood Count 4.14 10^6/uL (3.85-5.65); White Blood Count 12.05 10^3/uL (3.29-11.43)
[2025-01-27 16:57] LABS: Alanine Aminotransferase 13 U/L (0-41); Albumin Level 4.0 g/dL (3.5-5.2); Alkaline Phosphatase 321 U/L (40-130); Anion Gap 20.7 (5-19); Aspartate Amino Transferase 11 U/L (0-40); Blood Urea Nitrogen 24 mg/dL (8-23); Calcium 9.6 mg/dL (8.5-10.5); Carbon Dioxide 25 mmol/L (22-29); Chloride 95 mmol/L (98-107); Creatinine Clr Calc Pharmacy 15.3230; Globulin 3.6 g/dL (1.3-4.6); Glucose 271 mg/dL (65-115); Osmolality Calculated 296 mOsm/kg (285-295); Potassium 4.7 mmol/L (3.5-5.1); Sodium 136 mmol/L (136-145); Total Protein 7.6 g/dL (6.6-8.7)
--- NOTE | 2025-01-27 17:01 | ECG_ITS ---
[facility] [facility] Test Date: 2025-01-27 Pat Name: Eliazar Hogan Department: Room: Gender: Male Manager Inpatient: : 1950 Requested By: Elyssa Matos Order Number: [id number] Flor MD: GUY LEARY Measurements Intervals Dowell Rate: 73 P: 0 NC: 0 QRS: -7 QRSD: 105 T: 6 QT: 360 QTc: 399 Interpretive Statements ATRIAL FIBRILLATION POSSIBLE ANTERIOR MYOCARDIAL INFARCTION , PROBABLY OLD [30 ms Q WAVE IN V3/V4, OR R < 0.2 mV IN V4] ABNORMAL RHYTHM ECG Compared to ECG 01/27/2025 15:00:10 Myocardial infarct finding now present Intraventricular conduction delay no longer present T-wave abnormality no longer present Electronically Signed On 01-30-2025 23:32:26 CDT by GUY LEARY [email or web address]
[2025-01-27 17:02] VITALS: BP 178/97; PULSE 78; RESP 19; O2SAT 90
[2025-01-27 18:10] VITALS: BP 158/89; PULSE 75; RESP 17; O2SAT 97
[2025-01-27 18:26] LABS: Troponin 5 2HR 99.19 ng/L (0-15); Troponin 5 2HR Delta -4.81 ABS# (0-10)
[2025-01-27 18:49] VITALS: BP 168/99; PULSE 71; RESP 14; O2SAT 93
== END 2025-01-27 18:54 | disposition home or self-care (01) ==
PROVIDERS: Emergency Provider Emergency Medicine; PCP Family Medicine
DX: R07.89 Other chest pain (principal); Z79.4 Long term (current) use of insulin; Z79.02 Long term (current) use of antithrombotics/antiplatelets; Z79.82 Long term (current) use of aspirin; Z87.891 Personal history of nicotine dependence; I25.10 Atherosclerotic heart disease of native coronary artery without angina pectoris; E13.22 Other specified diabetes mellitus with diabetic chronic kidney disease; I13.2 Hypertensive heart and chronic kidney disease with heart failure and with stage 5 chronic kidney disease, or end stage renal disease; I50.9 Heart failure, unspecified; N18.6 End stage renal disease; Z86.73 Personal history of transient ischemic attack (TIA), and cerebral infarction without residual deficits; E78.5 Hyperlipidemia, unspecified
CPT/HCPCS: 36415; 71045; 80053; 84484; 85025; 93005; 99285